=== PATIENT | female | born 1935 | race Caucasian/White ===

== ENCOUNTER 2017-12-31 20:55 | Emergency (ER) | payer MEDICARE, OTHER ==
[~2017-12-31] VITALS: Ht 152.4 cm; Wt 101.6 kg
--- OUTSIDE RECORDS SUMMARY | 2017-12-31 20:59 | XMS REPORT | Summary of Care ---
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 Name Role Phone NELIDA MAGANA Unavailable Unavailable HEMALATHA Jones, RACHEL Unavailable Unavailable BROOK HERNANDEZ [place], WILLOW [place] Unavailable Unavailable BROOK Jones, WILLOW Mckinney Unavailable AL HERNANDEZ, HEATHER MARIO Unavailable Unavailable Unavailable Unavailable Functional Status Name Dates Details Functional status health issues are not documented Status: Name Dates Details Cognitive status health issues are not documented Status: Problems Name Dates Details Allergic rhinitis (477.9, J30.9) Status: Active Flu vaccine need (V04.81, Z23) Status: Active History of hyperlipidemia (V12.29, Z86.39) Status: Active Strain of knee and leg, left (844.9, S86.912A) Status: Active Venous stasis (459.81, I87.8) Status: Active Spinal stenosis (724.00, M48.00) Status: Active Periorbital ecchymosis of right eye (921.1, S00.11XA) Status: Active Non-smoker (V49.89, Z78.9) Status: Active Advance directive discussed with patient (V65.49, Z71.89) Status: Active At low risk for fall (V49.89, Z91.81) Status: Active Depression screening negative (V79.0, Z13.89) Status: Active Need for pneumococcal vaccination (V03.82, Z23) Status: Active History of essential hypertension (V12.59, Z86.79) Status: Active Pedal edema (782.3, R60.0) Status: Active Chronic anticoagulation (V58.61, Z79.01) Status: Active 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0, N30.01) Status: Active Urinary tract infection (599.0, N39.0) Status: Active Hematuria (599.70, R31.9) Status: Active UTI (urinary tract infection) (599.0, N39.0) Status: Active Gout (274.9, M10.9) Status: Active Chronic obstructive pulmonary disease, unspecified COPD type (496, J44.9) Status: Active Acute bronchitis, bacterial (466.0, J20.8) Status: Active CKD (chronic kidney disease), stage III (585.3, N18.3) Status: Active History of malignant neoplasm of endometrium (V10.42, Z85.42) Status: Resolved Diabetes mellitus (250.00, E11.9) Status: Active Urinary frequency (788.41, R35.0) Status: Active Urinary incontinence (788.30, R32) Status: Active Medications Name Dates Details Atorvastatin Calcium 10 MG Oral Tablet TAKE 1 TABLET DAILY. Active Levemir 100 UNIT/ML Subcutaneous Solution INJECT 15 UNIT At Bedtime PER PATIENT, DOSE BETWEEN 15-18 UNITS AT BEDTIME, DEPENDING ON BLOOD SUGAR * Refills: 0 Active 10 ML Vial Osteo Bi-Flex Regular Strength TABS TAKE DIRECTED. * Refills: 0 Active Calcium TABS TAKE 1 TABLET DAILY * Refills: 0 Active Vitamin D 2000 UNIT Oral Capsule TAKE 1 CAPSULE DAILY * Refills: 0 Active Ursodiol 300 MG Oral Capsule 1 capsule bid * Refills: 0 Active Pantoprazole Sodium 40 MG Oral Tablet Delayed Release TAKE 1 TABLET DAILY. * Refills: 0 Active HumaLOG SOLN 12-15 units with each meal * Refills: 0 Active Eliquis 2.5 MG Oral Tablet TAKE 1 TABLET TWICE DAILY * Refills: 0 Active Furosemide 40 MG Oral Tablet TAKE 1 TABLET DAILY DIRECTED. * Refills: 0 Active Multaq 400 MG Oral Tablet TAKE 1 TABLET TWICE DAILY, WITH MORNING AND EVENING MEAL x 30 DAYS * Refills: 0 Active Montelukast Sodium 10 MG Oral Tablet TAKE 1 TABLET DAILY. * Refills: 0 Active Benicar 40 MG Oral Tablet TAKE 1 TABLET DAILY. * Refills: 0 Active TraMADol HCl - 50 MG Oral Tablet TAKE 1 TABLET TWICE DAILY * Quantity: 60 Refills: 2 SHERMAN P.A., NELIDA * Start : 19-Jun-2016 Active NIFEdipine ER 30 MG Oral Tablet Extended Release 24 Hour TAKE 1 TABLET DAILY. * Refills: 0 Active ProAir HFA 108 (90 Base) MCG/ACT Inhalation Aerosol Solution INHALE 1 TO 2 PUFFS EVERY 4 TO 6 HOURS NEEDED. * Quantity: 1 Refills: 0 SATTAR M.D., RACHEL * Start : 18-Oct-2017 Active 8.5 GM Inhaler Cephalexin 500 MG Oral Capsule TAKE 1 CAPSULE EVERY 12 HOURS DAILY. * Quantity: 10 Refills: 0 SATTAR M.D., RACHEL * Start : 18-Oct-2017 Active PredniSONE 10 MG Oral Tablet TAKE 2 TABLET Daily once a day for 3 days, then take 1 tablet once daily for 2 days * Quantity: 8 Refills: 0 SATTAR M.D., RACHEL * Start : 18-Oct-2017 Active Uloric 40 MG Oral Tablet TAKE 1 TABLET DAILY. * Refills: 0 Active Allergies and Adverse Reactions Name Dates Details No Known Allergies (Allergy) Status: Active Past Medical History Name Dates Details History of atrial fibrillation (V12.59, Z86.79) Status: Resolved History of Fatty liver (571.8, K76.0) Status: Resolved History of hematuria (V13.09, Z87.448) Status: Resolved History of malignant neoplasm of endometrium (V10.42, Z85.42) Status: Resolved History of Sepsis due to Escherichia coli (038.42, A41.51) Status: Resolved History of urinary tract infection (V13.02, Z87.440) Status: Resolved Personal history of urinary tract infection (V13.02, Z87.440) Status: Resolved Procedures Procedure Dates Details History of Arthrotomy Of Knee With Open Meniscus Repair Completed History of Inguinal Hernia Repair Completed Immunization Name Dates Details Pneumovax 23 25 MCG/0.5ML Injection Injectable on: 30-Aug-2013 Fluzone INJ Lot #: [id number] on: 15-Apr-2014 Fluzone Quadrivalent 0.5 ML Intramuscular Suspension on: 04-May-2015 Prevnar 13 Intramuscular Suspension Lot #: [id number] on: 23-Sep-2015 Influenza on: 21-Apr-2016 Family History Name Dates Details Family history of Leukemia (V16.6) Status: Active Name Dates Details Family history of Hypertension (V17.49) Status: Active Family history of Stroke Syndrome (V17.1) Status: Active Family history of diabetes mellitus (V18.0, Z83.3) Status: Active Social History Name Dates Details - Status: Name Dates Details Never smoker Vital Signs Date Test Result Details [id number] Physical Findings 1 Status: Comments: PHQ-9 Adult Depression Screening [id number] BP Systolic 136 mm[Hg] Status: Comments: Location: LUE; Position: Sitting BP Diastolic 83 mm[Hg] Status: Comments: Location: LUE; Position: Sitting Height 62 in Status: Weight 224 lb Status: Body Mass Index Calculated 40.97 kg/m2 Status: Body Surface Area Calculated 2.01 m2 Status: Temperature 97.8 f Status: Comments: Method: Temporal Heart Rate 73 /min Status: Respiration Rate 16 /min Status: Physical Findings 0 Status: Comments: Pain Scale Results Date Description Value Details Results not documented Plan of Care Name Dates Details Planned Observations Planned Goals not documented Interventions Provided Medication Changes* TraMADol HCl - 50 MG Oral Tablet - Renew Instructions Name Dates Details Instructions not documented Encounters Appointment; JOESPH SUN M.D. Encounter Diagnosis: Problem not documented On: 25-Nov-2015 16:00 Appointment; MIGDALIA TAPIA M.D. Encounter Diagnosis: Problem not documented On: 25-Apr-2016 11:15 Appointment; MIGDALIA TAPIA M.D. Encounter Diagnosis: Problem not documented On: 07-Jun-2016 11:00 Appointment; MIGDALIA TAPIA M.D. Encounter Diagnosis: Problem not documented On: 19-Jun-2016 10:30 Appointment; TERI YUSUF P.A. Encounter Diagnosis: Problem not documented On: 29-Aug-2016 10:45 Appointment; NELIDA SHERMAN P.A. Encounter Diagnosis: Problem not documented On: 28-Sep-2016 13:15 Appointment; EB MCCLELLAND NP Encounter Diagnosis: Problem not documented On: 02-Nov-2016 12:30 Appointment; NELIDA SHERMAN P.A. Encounter Diagnosis: Problem not documented On: 25-Dec-2016 10:00 Appointment; NELIDA SHERMAN P.A. Encounter Diagnosis: Problem not documented On: 28-Dec-2016 12:45 Appointment; ELVI CURRAN NP Encounter Diagnosis: Problem not documented On: 05-Jan-2017 9:30 Appointment; NELIDA SHERMAN P.A. Encounter Diagnosis: Problem not documented On: 09-Jan-2017 10:15 Appointment; JACKSON MARTINEZ M.D. Encounter Diagnosis: Problem not documented On: 01-Feb-2017 9:30 Appointment; TERI YUSUF P.A. Encounter Diagnosis: Problem not documented On: 07-Mar-2017 13:15 Appointment; NELIDA SHERMAN PRadha Encounter Diagnosis: Problem not documented On: 02-Apr-2017 14:45 Appointment; MIGDALIA TAPIA M.D. Encounter Diagnosis: Problem not documented On: 29-Apr-2017 10:30 Appointment; RACHEL PENNY M.D. Encounter Diagnosis: Problem not documented On: 18-Oct-2017 11:30 Appointment; NELIDA SHERMAN P.A. Encounter Diagnosis: Problem not documented On: 19-Nov-2017 14:15
--- OUTSIDE RECORDS SUMMARY | 2017-12-31 20:59 | XMS REPORT | Clinical Summary ---
Author Author [facility] Organization [facility] Address Unknown Phone Unavailable Care Team Providers Care Ems Director Name Role Phone Asked, Pcp PCP Unavailable Allergies No Known Allergies Current Medications Prescription Sig. Disp. Refills Start End Date Status Date amLODIPine (NORVASC) 10 Take 10 mg by mouth Active MG tablet daily. atorvastatin (LIPITOR) 10 Take 10 mg by mouth Active MG tablet daily. insulin lispro (HumaLOG) Inject under the skin 3 Active 100 unit/mL injection (three) times a day before meals. insulin detemir (LEVEMIR) Inject 23 Units under the Active 100 unit/mL injection skin nightly. montelukast (SINGULAIR) Take 10 mg by mouth Active 10 mg tablet nightly. ursodiol (ACTIGALL) 300 Take 300 mg by mouth 2 Active mg capsule (two) times a day. pantoprazole (PROTONIX) Take 40 mg by mouth Active 40 MG EC tablet daily. cholecalciferol, vitamin Take 2,000 Units by mouth Active D3, (VITAMIN D3) 2,000 daily. unit capsule capsule conjugated estrogens Insert 0.5 g into the Active (PREMARIN) vaginal cream vagina once a week. calcium carbonate-vitamin Take 1 tablet by mouth Active D3 (CALCIUM 600 + D,3,) daily. 600 mg(1,500mg) -200 unit per tablet GLUCOSAMINE HCL/CHONDR ZAMORANO Take 1 capsule by mouth Active A NA (OSTEO BI-FLEX ORAL) daily. azelastine-fluticasone 1 spray into each nostril Active (DYMISTA) 137-50 nightly. mcg/spray spray,non-aerosol Active Problems Problem Noted Date Dyspnea 04/10/2016 Social History Tobacco Use Types Packs/Day Years Used Date Never Smoker Alcohol Use Drinks/Week oz/Week Comments No Sex Assigned at Date Recorded Not on file Last Filed Vital Signs Not on file Plan of Treatment Health Maintenance Due Date Last Done Comments ENRIQUEIX VACCINE (#1) 1983 ZOSTER VACCINE 1993 PNEUMOCOCCAL 1998 POLYSACCHARIDE VACCINE AGE 65 AND OVER PNEUMOCOCCAL-13 1998 INFLUENZA VACCINE 02/19/2018 Results Not on fileafter 12/30/2016 Insurance Payer Benefit Subscriber ID Type Phone Address Plan / Group MEDICARE MEDICARE xxxxxxxxxx Medicare [place], [place] PART A AND B STATE FARM INS STATE FARM xxxxxxxxxxxx Commercial INS
--- OUTSIDE RECORDS SUMMARY | 2017-12-31 20:59 | XMS REPORT | Clinical Summary ---
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 Disp. Refills Start End Date Status Date calcium carbonate Take 600 mg by mouth 2 Active (OS-VJ) 600 mg (1,500 (two) times daily with mg) Tab breakfast and dinner. [id number] Take by mouth. Active serr (OSTEO BI-FLEX) 1,500-400-100 mg-unit-mg Tab amLODIPine (NORVASC) 10 Take 10 mg by mouth 2 Active MG tablet (two) times daily. atorvastatin (LIPITOR) 10 Take 10 mg by mouth Active MG tablet daily. insulin detemir (LEVEMIR) Inject subcutaneously Active 100 unit/mL injection nightly 33 units. aspirin 81 MG chewable Take 81 mg by mouth Active tablet daily. canagliflozin (INVOKANA) Take by mouth daily. Active 300 mg Tab pantoprazole (PROTONIX) Take 40 mg by mouth Active 40 MG tablet daily. cholecalciferol, vitamin Take 4,000 Units by mouth Active D3, 4,000 unit Tab daily. olmesartan (BENICAR) 40 Take 40 mg by mouth Active MG tablet daily. insulin lispro (HUMALOG) Inject subcutaneously 3 Active 100 unit/mL (three) times daily injectionIndications: before meals Takes type 2 diabetes mellitus sliding scale dose only . albuterol HFA (VENTOLIN Inhale 1 puff by mouth Active HFA) 90 mcg/actuation via inhaler every 6 (six) inhalerIndications: hours as needed for Chronic Obstructive Wheezing. Pulmonary Disease montelukast (SINGULAIR) Take 10 mg by mouth every Active 10 mg tabletIndications: night as needed. Allergic Rhinitis sulfamethoxazole-trimetho Take 1 tablet by mouth Active prim (BACTRIM,SEPTRA) daily Has frequent UTIs 400-80 mg per tablet that lead to URI. Used for UTI prophylaxis. . AZELASTINE/FLUTICASONE 1 spray by Nasal route 2 Active (DYMISTA (two) times daily as NASAL)Indications: needed. Allergic Rhinitis DRONEDARONE HCL (MULTAQ Take by mouth 2 (two) Active ORAL) times daily. APIXABAN (ELIQUIS ORAL) Take by mouth 2 (two) Active times daily. febuxostat 40 mg tablet Take 40 mg by mouth Active daily. furosemide (LASIX) 20 MG Take 20 mg by mouth 2 Active tablet (two) times daily. TRAMADOL HCL (TRAMADOL Take by mouth. Active ORAL) ursodiol (ACTIGALL) 300 TAKE 1 CAPSULE BY MOUTH 270 capsule 0 Active mg capsule THREE TIMES DAILY 18 ursodiol (ACTIGALL) 300 TAKE 1 CAPSULE BY MOUTH 90 capsule 0 11/28/19 01/05/20 Discontin mg capsule THREE TIMES DAILY 17 17 ued ursodiol (ACTIGALL) 300 TAKE 1 CAPSULE BY MOUTH 90 capsule 0 01/15/20 01/15/20 Discontin mg capsule THREE TIMES DAILY 17 17 ued ursodiol (ACTIGALL) 300 TAKE 1 CAPSULE BY MOUTH 270 capsule 0 05/24/20 Discontin mg capsule THREE TIMES DAILY 17 17 ued ursodiol (ACTIGALL) 300 TAKE 1 CAPSULE BY MOUTH 90 capsule 0 05/24/2011/08/ Discontin mg capsule THREE TIMES DAILY 17 18 ued ursodiol (ACTIGALL) 300 TAKE 1 CAPSULE BY MOUTH 90 capsule 0 11/16/19 11/16/19 Discontin mg capsule THREE TIMES DAILY 18 18 ued Active Problems Problem Noted Date Hyperkalemia 04/15/2017 Diabetes mellitus (HCC) 02/04/2013 Last Assessment & Plan: The most recent hemoglobin A1c from 01/19/13 was 8.7. Her treatment regimen was recently modified to include insulin and is presently undergoing dose adjustments. Her non-compliance with diet and weight management and more recently the use of systemic steroids have made adequate control more difficult. 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 Hyperlipidemia 02/04/2013 Last Assessment & Plan: Treated with atorvastatin. From a liver standpoint there is no contraindication for the continued use of cholesterol lowering agents including statins if deemed necessary. Optimal control of the hyperlipidemia will be essential to help prevent the accelerated progression of her liver disease. Continued monitoring and management will be deferred to her treating physician. Abnormal liver function test 02/04/2013 Last Assessment & Plan: The patient's liver test abnormalities are likely related to fatty liver disease. However, a comprehensive evaluation will be completed to assess for metabolic, viral, genetic, and autoimmune liver diseases to detect alternative etiologies and all comorbid conditions affecting hepatic function. The alkaline phosphatase is also disproportionately abnormal and therefore a GGT will be requested to exclude any extrahepatic source(ie bone). If it remains abnormal further testing including possibly and MRCP to assess bile duct anatomy will considered. Obesity 02/04/2013 Last Assessment & Plan: Current weight 199 lbs, with a BMI of 36.4 meets the definition of obesity and she has abdominal distribution of fat consistent with high probability of visceral fat and risk for non-alcoholic fatty liver disease which can be an accelerant of hepatic fibrosis . A weight reduction program is recommended that should include a healthy low carbohydrate diet and exercise as tolerated. An initial goal should be a 10% total body weight loss since this disproportionately reduces visceral fat and can reverse fatty liver disease up to 90%. This should benefit not only her general health but also her liver disease by eliminating a risk factor for fatty liver. Hypertension 02/04/2013 Last Assessment & Plan: Treated and stable. She will be referred to her primary care provider for continued monitoring and management. Fatty liver 02/04/2013 Last Assessment & Plan: The patient presents with various risk factors for metabolic syndrome, and previous abdominal ultrasounds have been compatible with fatty liver disease. (these records have been requested for review) Ultrasound technology is generally reliable in detecting steatosis but cannot distinguish between simple steatosis and JAMES and a liver biopsy may be required to make this distinction, but for now is not recommended. Optimal control of these various risk factors including obesity, diabetes and hyperlipidemia will be essential to help prevent further progression of his liver disease. There is no proven medical therapy for JAMES, but weight loss of 10% of body weight ameliorates hepatic steatosis. Immunity status testing 02/04/2013 Last Assessment & Plan: All patients with chronic liver disease, regardless of etiology, should be immunized to prevent hepatitis A and hepatitis B if they are not already immune. We will test for immunity to both viruses - vaccine recommendations will follow. Encounters Date Type Specialty Care Team Description 11/15/2017 Refill HepatMateo Prabhakar MD 11/08/2017 Refill Hepatology Mateo Phoenix MD 05/11/2017 Refill HepatMateo Prabhakar MD 04/16/2017 Documentation Hepatology Ning Walker FNP 04/15/2017 Office Visit Hepatology Mateo Phoenix MD Fatty liver ( Primary Anai Hameed MD Dx);Abnormal liver function test;Morbid obesity due to excess calories (HCC);Immunity status testing;Hyperkalemia 04/15/2017 Hospital Radiology Mateo Phoenix MD Abnormal liver diagnostic Encounter imaging 04/15/2017 Orders Only Lab Mateo Phoenix MD Fatty liver;Abnormal liver diagnostic imaging 04/15/2017 Outside Orders Mateo Phoenix MD 03/27/2017 Orders Only Hepatology Ning Walker FNP Fatty liver (Primary Dx);Abnormal liver function test;Abnormal liver diagnostic imaging 01/14/2017 Refill Hepatology Mateo Phoenix MD 01/04/2017 Refill Hepatology Mateo Phoenix MD after 12/30/2016 Family History Medical History Relation Name Comments Heart disease Father Cancer Mother leukemia Cancer Sister Unremarkable Sister Relation Name Status Comments Father Mother Sister Sister Alive Social History Tobacco Use Types Packs/Day Years Used Date Never Smoker Smokeless Tobacco: Never Used Alcohol Use Drinks/Week oz/Week Comments No social, wine, 1 glass Sex Assigned at Date Recorded Not on file Last Filed Vital Signs Vital Sign Reading Time Taken Blood Pressure 103/73 04/15/2017 11:23 AM CDT Pulse 80 04/15/2017 11:23 AM CDT Temperature 36.4 C (97.6 F) 04/15/2017 11:23 AM CDT Respiratory Rate 18 04/15/2017 11:23 AM CDT Oxygen Saturation 97% 04/15/2017 11:23 AM CDT Inhaled Oxygen - - Concentration Weight 100 kg (220 lb 8 oz) 04/15/2017 11:23 AM CDT Height 157.5 cm (5' 2") 04/15/2017 11:23 AM CDT Body Mass Index 40.33 04/15/2017 11:23 AM CDT Plan of Treatment Date Type Specialty Care Team Description 04/14/2018 Office Visit Hepatology AlbanMateo odonnell MD [id number] [place] [address] [phone] [facility] Health Maintenance Due Date Last Done Comments INFLUENZA VACCINE 04/21/2018 Results * US abdomen complete (04/15/2017 11:02 AM) Specimen Performing Laboratory [facility] Narrative FINAL REPORT Abdominal ultrasound dated 04/15/2017 Clinical information:fatty liver, please perform elastography Comment:Real-time transabdominal ultrasound was performed. Liver is normal in size and measures 15 cm in length. The echogenicity of the liver is increased.No focal lesion is noted in the liver.Spleen is normal in size without focal abnormality. Gallbladder is distended. No gallstone is present. No biliary dilatation is seen. Common bile duct measures 3 mm in diameter.Main portal vein measures 10 mm in diameter. Pancreas is suboptimally visualized secondary to overlying gas. Right kidney measures 10.2 x 4.8 x 4.8 cm.Left kidney measures 9.1 x 4.8 x 3.8 cm.Echogenicity of both kidney is normal.No hydronephrosis or solid mass seen in either kidney. Several cysts are seen in the right kidney with the largest measuring 5.4 x 5.6 x 5.4 cm. A 1.8 x 1.9 x 1.4 cm cyst is seen in the left kidney. No ascites is present in the abdomen. Abdominal aorta is normal in caliber. IVC and Hepatic veins are patent. Elastography of the liver was performed. The assessment of liver tissue stiffness is the following. Average liver stiffness is 1.58 m/s. Standard deviation is 0.79 m/s. Median liver stiffness is 1.55 m/s. The findings correlate with mild to moderate liver fibrosis. Liver fibrosis Liver Bx ScoreShearWave velocity(m/s) Normal F0 0.82 - 1.23 Normal - MildF0 - F1 1.23 - 1.38 Mild - ModerateF2 - F3 1.38 - 2.00 Moderate - Severe F3 - F4 2.0 - 2.65 Severe F4 >2.65 Impression: 1. Echogenic liver suggestive of diffuse liver parenchymal disease. 2. Suboptimal visualization of the pancreas secondary to overlying gas. 3. Bilateral renal cysts. 4. Mild to moderate hepatic fibrosis. Signed: Charles Ornelas MD Report Verified Date/Time:04/15/2017 13:40:05 Reading Location: [address] Radiology Reading Room Procedure Note Interface, External Ris In - 04/15/2017 1:42 PM CDT FINAL REPORT Abdominal ultrasound dated 04/15/2017 Clinical information:fatty liver, please perform elastography Comment: Real-time transabdominal ultrasound was performed. Liver is normal in size and measures 15 cm in length. The echogenicity of the liver is increased. No focal lesion is noted in the liver. Spleen is normal in size without focal abnormality. Gallbladder is distended. No gallstone is present. No biliary dilatation is seen. Common bile duct measures 3 mm in diameter. Main portal vein measures 10 mm in diameter. Pancreas is suboptimally visualized secondary to overlying gas. Right kidney measures 10.2 x 4.8 x 4.8 cm. Left kidney measures 9.1 x 4.8 x 3.8 cm. Echogenicity of both kidney is normal. No hydronephrosis or solid mass seen in either kidney. Several cysts are seen in the right kidney with the largest measuring 5.4 x 5.6 x 5.4 cm. A 1.8 x 1.9 x 1.4 cm cyst is seen in the left kidney. No ascites is present in the abdomen. Abdominal aorta is normal in caliber. IVC and Hepatic veins are patent. Elastography of the liver was performed. The assessment of liver tissue stiffness is the following. Average liver stiffness is 1.58 m/s. Standard deviation is 0.79 m/s. Median liver stiffness is 1.55 m/s. The findings correlate with mild to moderate liver fibrosis. Liver fibrosis Liver Bx Score ShearWave velocity(m/s) Normal F0 0.82 - 1.23 Normal - Mild F0 - F1 1.23 - 1.38 Mild - Moderate F2 - F3 1.38 - 2.00 Moderate - Severe F3 - F4 2.0 - 2.65 Severe F4 >2.65 Impression: 1. Echogenic liver suggestive of diffuse liver parenchymal disease. 2. Suboptimal visualization of the pancreas secondary to overlying gas. 3. Bilateral renal cysts. 4. Mild to moderate hepatic fibrosis. Signed: Charles Ornelas MD Report Verified Date/Time: 04/15/2017 13:40:05 Reading Location: [address] Radiology Reading Room * CBC with platelet count + automated diff (04/15/2017 9:41 AM) Component Value Ref Range WBC 12.5 (H) 3.5 - 10.5 K/ L RBC 4.45 3.93 - 5.22 M/ L Hemoglobin 13.7 11.2 - 15.7 GM/DL Hematocrit 44.4 34.1 - 44.9 % MCV 99.8 (H) 79.4 - 94.8 fL MCH 30.8 25.6 - 32.2 pg MCHC 30.9 (L) 32.2 - 35.5 GM/DL RDW 14.2 11.7 - 14.4 % Platelets 280 150 - 450 K/CU MM MPV 11.3 9.4 - 12.3 fL nRBC 0 0 - 0 /100 WBC % Neutros 58 % % Lymphs 32 % % Monos 7 % % Eos 1 % % Baso 1 % # Neutros 7.30 (H) 1.56 - 6.13 K/ L # Lymphs 4.00 (H) 1.18 - 3.74 K/ L # Monos 0.83 (H) 0.24 - 0.36 K/ L # Eos 0.07 0.04 - 0.36 K/ L # Baso 0.11 (H) 0.01 - 0.08 K/ L Immature 1 0 - 1 % Granulocytes-Relative Specimen Performing Laboratory Blood [address] [address] * Alpha fetoprotein (AFP), tumor marker (04/15/2017 9:41 AM) Component Value Ref Range Alpha-Fetoprotein <2.0 <10.0 ng/mL Specimen Performing Laboratory Blood [address] [address] * CBC with platelet count + automated diff (04/15/2017 9:41 AM) Specimen Performing Laboratory Blood [facility]) Narrative The following orders were created for panel order CBC with platelet count + automated diff. Procedure Abnormality Status --------- - ------ CBC with platelet count ...[[id number]]AbnormalFinal result Please view results for these tests on the individual orders. * Gamma Glutamyl Transferase (GGT) (04/15/2017 9:41 AM) Component Value Ref Range GGT 45Comment: Specimen slightly hemolyzed 9 - 64 U/L Specimen [place] [address] * Hepatic function panel (04/15/2017 9:41 AM) Component Value Ref Range Protein, Total 6.5Comment: Specimen slightly hemolyzed 6.0 - 8.3 gm/dL Albumin 3.7Comment: Specimen slightly hemolyzed 3.5 - 5.0 g/dL Total Bilirubin 0.6Comment: Specimen slightly hemolyzed 0.2 - 1.2 mg/dL Bilirubin, Direct 0.2Comment: Specimen slightly hemolyzed 0.1 - 0.5 mg/dL Alkaline Phosphatase 108 40 - 150 U/L AST 27Comment: Specimen slightly hemolyzed 5 - 34 U/L ALT 14Comment: Specimen slightly hemolyzed 6 - 55 U/L Specimen Performing Laboratory Blood [id number] * Basic Metabolic Panel (04/15/2017 9:41 AM) Component Value Ref Range Sodium 141 136 - 145 meq/L Potassium 5.2 (H)Comment: Specimen slightly hemolyzed 3.5 - 5.1 meq/L Chloride 112 (H) 98 - 107 meq/L CO2 18 (L) 22 - 29 meq/L BUN 50 (H) 7 - 21 mg/dL Creatinine 1.39 (H)Comment: Specimen slightly hemolyzed 0.57 - 1.25 mg/dL Glucose 98 70 - 105 mg/dL Calcium 9.8 8.4 - 10.2 mg/dL EGFR 36Comment: ESTIMATED GFR IS NOT ACCURATE mL/min/1.73 sq m CREATININE CLEARANCE IN PREDICTING GLOMERULAR FILTRATION RATE. ESTIMATED GFR IS NOT APPLICABLE FOR DIALYSIS PATIENTS. Specimen Performing Laboratory Blood [id number] after 12/30/2016
--- OUTSIDE RECORDS SUMMARY | 2017-12-31 20:59 | XMS REPORT ---
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 Allergies, Adverse Reactions, Alerts This patient has no known allergies or adverse reactions. Medications This patient has no known medications. Results Test Description Test Time Test Comments Text Results Atomic Results Result Comments U/S, ABDOMINAL, COMPLETE 2017-04-15 13:40:00 please perform elastographyplease perform elastographyReason for Exam:->fatty liver, please perform elastographyplease perform elastography FINAL REPORT Abdominal ultrasound dated 04/15/2017 Clinical [...] assessment of liver tissue stiffness is the following.Average liver stiffness is 1.58 m/s.Standard deviation is 0.79 m/s.Median liver stiffness is 1.55 m/s. The findings correlate with mild to moderate liver fibrosis. Liver fibrosis Liver Bx Score ShearWave velocity(m/ s) Normal F0 0.82 - 1.23Normal - Mild F0 - F1 1.23 - 1.38Mild - Moderate F2 - F3 1.38 - 2.00Moderate - Severe F3 - F4 2.0 - 2.65Severe F4 >2.65 Impression: 1. Echogenic liver suggestive of diffuse liver parenchymal disease.2. Suboptimal visualization of the pancreas secondary to overlying gas.3. Bilateral renal cysts.4. Mild to moderate hepatic fibrosis. Signed: Charles Ornelas MDReport Verified Date/Time: 04/15/2017 13:40:05 Reading Location: [address] Radiology Reading Room A FETOPROTEIN (AFP), TUMOR MARKER 2017-04-15 11:41:00 ALPHA-FETOPROTEIN (BEAKER) (test tjmh=3337) < ng/mL <10.0 BASIC METABOLIC [id number] 11:05:00* Test Item Value Reference Range Comments SODIUM (BEAKER) (test sync=495) 141 meq/L 136-145 POTASSIUM (BEAKER) (test ejyv=245) 5.2 meq/L 3.5-5.1 Specimen slightly hemolyzed CHLORIDE (BEAKER) (test ihwq=891) 112 meq/L 98-107 CO2 (BEAKER) (test gjrd=853) 18 meq/L 22-29 BLOOD UREA NITROGEN (BEAKER) (test gvoe=939) 50 mg/dL 7-21 CREATININE (BEAKER) (test atoc=378) 1.39 mg/dL 0.57-1.25 Specimen slightly hemolyzed GLUCOSE RANDOM (BEAKER) (test hqlc=773) 98 mg/dL 70-105 CALCIUM (BEAKER) (test jysk=040) 9.8 mg/dL 8.4-10.2 EGFR (BEAKER) (test nveg=4092) 36 mL/min/1.73 sq m ESTIMATED GFR IS NOT ACCURATE CREATININE CLEARANCE IN PREDICTING GLOMERULAR FILTRATION RATE. ESTIMATED GFR IS NOT APPLICABLE FOR DIALYSIS PATIENTS. HEPATIC FUNCTION [id number] 11:05:00* Test Item Value Reference Range Comments TOTAL PROTEIN (BEAKER) (test qrtm=481) 6.5 gm/dL 6.0-8.3 Specimen slightly hemolyzed ALBUMIN (BEAKER) (test yyxr=6516) 3.7 g/dL 3.5-5.0 Specimen slightly hemolyzed BILIRUBIN TOTAL (BEAKER) (test vuzw=699) 0.6 mg/dL 0.2-1.2 Specimen slightly hemolyzed BILIRUBIN DIRECT (BEAKER) (test jorg=548) 0.2 mg/dL 0.1-0.5 Specimen slightly hemolyzed ALKALINE PHOSPHATASE (BEAKER) (test lhjv=995) 108 U/L 40-150 AST (SGOT) (BEAKER) (test yuuy=097) 27 U/L 5-34 Specimen slightly hemolyzed ALT (SGPT) (BEAKER) (test yeyf=561) 14 U/L 6-55 Specimen slightly hemolyzed GAMMA GLUTAMYL TRANSFERASE (GGT)2017-04-15 11:05:00* Test Item Value Reference Range Comments GAMMA GLUTAMYL TRANSFERASE (BEAKER) (test qsnw=936) 45 U/L 9-64 Specimen slightly hemolyzed CBC W/PLT COUNT & AUTO [id number] 10:49:00* Test Item Value Reference Range Comments WHITE BLOOD CELL COUNT (BEAKER) (test oqxk=104) 12.5 K/ L 3.5-10.5 RED BLOOD CELL COUNT (BEAKER) (test vsxy=362) 4.45 M/ L 3.93-5.22 HEMOGLOBIN (BEAKER) (test srza=027) 13.7 GM/DL 11.2-15.7 HEMATOCRIT (BEAKER) (test sqev=394) 44.4 % 34.1-44.9 MEAN CORPUSCULAR VOLUME (BEAKER) (test qsqe=973) 99.8 fL 79.4-94.8 MEAN CORPUSCULAR HEMOGLOBIN (BEAKER) (test cnde=551) 30.8 pg 25.6-32.2 MEAN CORPUSCULAR HEMOGLOBIN CONC (BEAKER) (test alrp=042) 30.9 GM/DL 32.2- 35.5 RED CELL DISTRIBUTION WIDTH (BEAKER) (test sdnk=151) 14.2 % 11.7-14.4 PLATELET COUNT (BEAKER) (test iymd=786) 280 K/CU MM 150-450 MEAN PLATELET VOLUME (BEAKER) (test reaw=964) 11.3 fL 9.4-12.3 NUCLEATED RED BLOOD CELLS (BEAKER) (test pmxl=224) 0 /100 WBC 0-0 NEUTROPHILS RELATIVE PERCENT (BEAKER) (test hqdg=318) 58 % LYMPHOCYTES RELATIVE PERCENT (BEAKER) (test fqgi=888) 32 % MONOCYTES RELATIVE PERCENT (BEAKER) (test wucd=433) 7 % EOSINOPHILS RELATIVE PERCENT (BEAKER) (test fmru=821) 1 % BASOPHILS RELATIVE PERCENT (BEAKER) (test xnat=817) 1 % NEUTROPHILS ABSOLUTE COUNT (BEAKER) (test ojnq=827) 7.30 K/ L 1.56-6.13 LYMPHOCYTES ABSOLUTE COUNT (BEAKER) (test bpox=591) 4.00 K/ L 1.18-3.74 MONOCYTES ABSOLUTE COUNT (BEAKER) (test hzdp=286) 0.83 K/ L 0.24-0.36 EOSINOPHILS ABSOLUTE COUNT (BEAKER) (test pbjl=984) 0.07 K/ L 0.04-0.36 BASOPHILS ABSOLUTE COUNT (BEAKER) (test wbml=629) 0.11 K/ L 0.01-0.08 IMMATURE GRANULOCYTES-RELATIVE PERCENT (BEAKER) (test lupu=6239) 1 % 0-1
== END 2017-12-31 22:00 | disposition home or self-care (01) ==
LOC: FSED 20:55
DX: H57.12 Ocular pain, left eye (principal); E11.22 Type 2 diabetes mellitus with diabetic chronic kidney disease; I12.9 Hypertensive chronic kidney disease with stage 1 through stage 4 chronic kidney disease, or unspecified chronic kidney disease; N18.9 Chronic kidney disease, unspecified; J44.9 Chronic obstructive pulmonary disease, unspecified; I48.91 Unspecified atrial fibrillation
CPT/HCPCS: 99283

== ENCOUNTER 2018-05-25 13:39 | Emergency (ER) | payer MEDICARE, OTHER ==
[~2018-05-25] VITALS: Ht 152.4 cm; Wt 101.6 kg
--- OUTSIDE RECORDS SUMMARY | 2018-05-25 13:47 | XMS REPORT | CCD ---
Author Author Auto Generated Organization [facility] Address Unknown Phone Unavailable Care Team Providers Care Paediatrician Name Role Phone Hari [address] CP Allergies, Adverse Reactions, Alerts Substance Reaction Status NKDA Active Medications Medication Instructions Start Date End Date Status Zofran ODT 4 mg oral 4 mg, 1 tab, PO, BID, PRN, Dissolve 06/22/2012 Suspended tablet, tab under tongue, 10 tab, Nausea disintegrating and Vomiting, Substitution Allowed Dissolve tab under tongue Macrobid 100 mg oral 100 mg, 1 cap, PO, BID, 14 cap, 06/22/2012 Suspended capsule Substitution Allowed Sodium Chloride 0.9% 1,000 mL, Rate: 1,000 ml/hr, Infuse 06/22/2012 06/22/2012 Completed (Bolus) IV 1,000 mL over: 1 hr, Route: IV, Dosing Weight 95 kg, Total Volume: 1,000, Bolus dose, Priority: STAT, Start date: 06/22/12 9:07:00, Duration: 1 doses or times, Stop date: 06/22/12 10:06:00 Saline Flush 0.9% 5 mL, Route: IVP, Dosing Weight 95, 06/22/2012 06/22/2012 Discontinued kg, PRN, PRN Line Flush, Start date: 06/22/12 9:07:00, Duration: 24 hr, Stop date: 06/23/12 9:06:00 ondansetron 4 mg, Route: IVP, ONCE, Dosing 06/22/2012 06/22/2012 Completed Weight 95, kg, Priority: STAT, Start date: 06/22/12 9:07:00, Stop date: 06/22/12 9:07:00 Vital Signs Most recent to oldest [Reference Range]: 1 Height 157.48 cm (06/22/2012 08:47:00) Weight 95.000 kg (06/22/2012 08:47:00) Results URINALYSIS Most recent to oldest [Reference Range]: 1 UA Turbidity [Clear] Marked *ABN* (06/22/2012 10:30:00) UA Color Jayne *NA* (06/22/2012 10:30:00) UA pH [5.0-8.0] 5.0 (06/22/2012 10:30:00) UA Spec Grav [<=1.030] 1.012 (06/22/2012 10:30:00) UA Glucose [Negative mg/dL] 50 mg/dL *ABN* (06/22/2012 10:30:00) UA Blood [Negative] Large *ABN* (06/22/2012 10:30:00) UA Ketones [Negative mg/dL] Negative mg/dL *NA* (06/22/2012 10:30:00) UA Protein [Negative mg/dL] 100 mg/dL *ABN* (06/22/2012 10:30:00) UA Urobilinogen [0.1-1.0 mg/dL] <=1.0 mg/dL *NA* (06/22/2012 10:30:00) UA Bili [Negative] Negative *NA* (06/22/2012 10:30:00) UA Leuk Est [Negative] Large *ABN* (06/22/2012 10:30:00) UA Nitrite [Negative] Positive *ABN* (06/22/2012 10:30:00) UA WBC [0-5 /HPF] 69 /HPF *HI* (06/22/2012 10:30:00) UA RBC [0-2 /HPF] 20 /HPF *HI* (06/22/2012 10:30:00) UA Bacteria [None Seen /HPF] Few /HPF *NA* (06/22/2012 10:30:00) UA Sq Epi [Few /LPF] Many /LPF *ABN* (06/22/2012 10:30:00) UA Hyal Cast [0-2 /LPF] 3 /LPF *HI* (06/22/2012 10:30:00) UA Mucus [None Seen /LPF] Few /LPF *NA* (06/22/2012 10:30:00) CHEMISTRY Most recent to oldest [Reference Range]: 1 Sodium Lvl [135-145 mEq/L] 138 mEq/L (06/22/2012 09:00:00) Potassium Lvl [3.5-5.1 mEq/L] 3.7 mEq/L (06/22/2012 09:00:00) Chloride Lvl [95-109 mEq/L] 105 mEq/L (06/22/2012 09:00:00) CO2 [24-32 mEq/L] 23 mEq/L *LOW* (06/22/2012 09:00:00) AGAP [10.0-20.0 mEq/L] 13.7 mEq/L (06/22/2012 09:00:00) Creatinine Lvl [0.5-1.4 mg/dL] 1.6 mg/dL *HI* (06/22/2012 09:00:00) eGFR 31 mL/min/1.73m2 1 *NA* (06/22/2012 09:00:00) BUN [7-22 mg/dL] 27 mg/dL *HI* (06/22/2012 09:00:00) B/C Ratio [6-25] 17 (06/22/2012 09:00:00) Glucose Lvl [70-99 mg/dL] 259 mg/dL 2 *HI* (06/22/2012 09:00:00) Total Protein [6.4-8.4 g/dL] 7.4 g/dL (06/22/2012 09:00:00) Albumin Lvl [3.5-5.0 g/dL] 3.3 g/dL *LOW* (06/22/2012 09:00:00) Globulin [2.0-4.0 g/dL] 4.1 g/dL *HI* (06/22/2012 09:00:00) A/G Ratio [0.7-1.6] 0.8 (06/22/2012 09:00:00) Calcium Lvl [8.5-10.5 mg/dL] 9.1 mg/dL (06/22/2012 09:00:00) ALT [0-65 unit/L] 44 unit/L (06/22/2012 09:00:00) AST [0-37 unit/L] 39 unit/L *HI* (06/22/2012:00:00) Alk Phos [39-136 unit/L] 222 unit/L *HI* (06/22/2012:00:00) Bili Total [0.2-1.3 mg/dL] 1.5 mg/dL *HI* (06/22/2012:00:00) Lipase Lvl [73-393 unit/L] 101 unit/L (06/22/2012:00:00) Total CK [12-191 unit/L] 53 unit/L (06/22/2012:00:00) CK MB [0.5-3.6 ng/mL] <0.5 ng/mL (06/22/2012:00:00) CK MB Index [0.0-2.5] <0.9 (06/22/2012:00:00) 1Result Comment: The eGFR is calculated using the CKD-EPI formula. In most young, healthy individuals the eGFR will be >90 mL/min/1.73m2. The eGFR declines with age. An eGFR of 60-89 may be normal in some populations, particularly the elderly, for whom the CKD-EPI formula has not been extensively validated. Use of the eGFR is not recommended in the following populations: Individuals with unstable creatinine concentrations, including patients and those with serious co-morbid conditions. Patients with extremes in muscle mass or diet. The data above are obtained from the National Kid[employer] Disease Education Program ( NKDEP) which additionally recommends that when the eGFR is used in patients with extremes of body mass index for purposes of drug dosing, the eGFR should be mul tiplied by the estimated BMI. 2Interpretive Data: Adult reference range values reflect the clinical guidelines of the [place] [employer]. HEMATOLOGY Most recent to oldest [Reference Range]: 1 WBC [3.7-10.4 K/CMM] 13.8 K/CMM *HI* (06/22/2012:00:00) RBC [4.20-5.40 M/CMM] 4.30 M/CMM (06/22/2012:00:00) Hgb [12.0-16.0 g/dL] 13.8 g/dL (06/22/2012:00:00) Hct [36.0-48.0 %] 40.3 % (06/22/2012 09:00:00) MCV [81.0-99.0 fL] 93.7 fL (06/22/2012 09:00:00) MCH [27.0-31.0 pg] 32.0 pg *HI* (06/22/2012 09:00:00) MCHC [32.0-36.0 g/dL] 34.2 g/dL (06/22/2012 09:00:00) RDW [11.5-14.5 %] 13.9 % (06/22/2012 09:00:00) Platelet [133-450 K/CMM] 209 K/CMM (06/22/2012 09:00:00) MPV [7.4-10.4 fL] 9.0 fL (06/22/2012 09:00:00) Segs [45.0-75.0 %] 89.7 % *HI* (06/22/2012 09:00:00) Lymphocytes [20.0-40.0 %] 5.6 % *LOW* (06/22/2012 09:00:00) Monocytes [2.0-12.0 %] 4.5 % (06/22/2012 09:00:00) Eosinophils [0.0-4.0 %] 0.1 % (06/22/2012 09:00:00) Basophils [0.0-1.0 %] 0.1 % (06/22/2012 09:00:00) Segs-Bands # [1.5-8.1 K/CMM] 12.3 K/CMM *HI* (06/22/2012 09:00:00) Lymphocytes # [1.0-5.5 K/CMM] 0.8 K/CMM *LOW* (06/22/2012 09:00:00) Monocytes # [0.0-0.8 K/CMM] 0.6 K/CMM (06/22/2012 09:00:00) Eosinophils # [0.0-0.5 K/CMM] 0.0 K/CMM (06/22/2012 09:00:00) Basophils # [0.0-0.2 K/CMM] 0.0 K/CMM (06/22/2012 09:00:00) RBC Morph Normal (06/22/2012 09:00:00) Plt Morph Normal (06/22/2012 09:00:00)
--- OUTSIDE RECORDS SUMMARY | 2018-05-25 13:47 | XMS REPORT | Continuity of Care Document ---
Author Author Balbina hahn Organization Interface Address Unknown Phone Unavailable Problems Problem Status Onset Date Classification Date Reported Comments Source LABS Active 04/16/2016 [facility] UROSEPSIS, CHRONIC KIDNEY DISEASE Active 04/07/2016 [facility] FEVER Active 04/07/2016 [facility] Discharge Diagnosis: Hyperkalemia 04/06/2016 04/09/2016 [facility] ABN LABS Active 04/06/2016 [facility] Discharge Diagnosis: Acute UTI 10/01/2015 10/04/2015 [facility] Discharge Diagnosis: Generalized weakness 10/01/2015 10/04/2015 [facility] WEAKNESS Active 10/01/2015 [facility] BLOOD IN URINE Active 09/22/2015 [facility] EYE REDNESS/EYE PAIN Active 05/02/2015 [facility] S.O.B Active 02/26/2015 [facility] AECOPD, BRONCHITIS Active 02/26/2015 [facility] Discharge Diagnosis: Acute bronchitis 10/10/2014 10/12/2014 [facility] CONGESTION Active 10/10/2014 [facility] Discharge Diagnosis: Cellulitis 08/22/2014 08/24/2014 [facility] LEG SWELLING Active 08/22/2014 [facility] Discharge Diagnosis: Acute Bronchitis 05/16/2014 05/19/2014 [facility] CONGESTED Active 05/16/2014 [facility] Upper respiratory infection<sup>6</sup> Resolved 01/19/2013 Problem 02/04/2018 Data migrated from [employer] on 02/04/15. [facility] Upper respiratory infection<sup>6</sup> Resolved 01/19/2013 Problem 01/12/2017 Data migrated from [employer] on 02/04/15. [facility] [place] Upper respiratory infection<sup>6</sup> Resolved 01/19/2013 Problem 05/13/2016 Data migrated from [employer] on 02/04/15. [facility], [facility] [place], SARAH Hahn PNEUMONIA,DYSPNEA Active 01/07/2013 [facility] SHORTNESS OF BREATH Active 09/02/2012 [facility] REACTIVE AIRWAY, WHEEZING, PNEUMONIA Active 09/02/2012 [facility] FEVER,UTI Active 06/23/2012 [facility] RE-VISIT Active 06/23/2012 [facility] SICK Active 06/22/2012 [facility] Urinary tract infectious disease<sup>7</sup> Resolved 04/17/2012 Problem 02/04/2018 Data migrated from [employer] on 02/04/15. [facility] Urinary tract infectious disease<sup>7</sup> Resolved 04/17/2012 Problem 01/12/2017 Data migrated from [employer] on 02/04/15. [facility], [facility] [place] Urinary tract infectious disease<sup>7</sup> Resolved 04/17/2012 Problem 05/13/2016 Data migrated from [employer] on 02/04/15. [facility], [facility] [place], [facility] [place] Vitamin D deficiency<sup>8</sup> Active 04/16/2011 Problem 02/04/2018 Data migrated from [employer] on 12/20/14. [facility] Vitamin D deficiency<sup>8</sup> Active 04/16/2011 Problem 01/12/2017 Data migrated from [employer] on 12/20/14. [facility] [place] Vitamin D deficiency<sup>8</sup> Active 04/16/2011 Problem 05/13/2016 Data migrated from [employer] on 12/20/14. 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 [facility] Hyperlipidemia<sup>2</sup> Active 08/03/2010 Problem 02/04/2018 Data migrated from [employer] on 12/20/14. [facility] Obesity<sup>3</sup> Active 08/03/2010 Problem 02/04/2018 Data migrated from [employer] on 12/20/14. [facility] Osteoporosis<sup>4</sup> Active 08/03/2010 Problem 02/04/2018 Data migrated from [employer] on 12/20/14. [facility] Disorder associated with type 2 diabetes mellitus<sup>1</sup> Resolved 08/03/2010 Problem 01/12/2017 Data migrated from [employer] on 12/20/14. [facility] [place] Hyperlipidemia<sup>2</sup> Active 08/03/2010 Problem 01/12/2017 Data migrated from [employer] on 12/20/14. [facility], [facility] [place] Obesity<sup>3</sup> Active 08/03/2010 Problem 01/12/2017 Data migrated from [employer] on 12/20/14. [facility], [facility] [place] Osteoporosis<sup>4</sup> Active 08/03/2010 Problem 01/12/2017 Data migrated from [employer] on 12/20/14. 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 [facility] [place], [facility] [place] Hyperlipidemia<sup>2</sup> Active 08/03/2010 Problem 05/13/2016 Data migrated from [employer] on 12/20/14. [facility], [facility] [place], [facility] [place] Obesity<sup>3</sup> Active 08/03/2010 Problem 05/13/2016 Data migrated from [employer] on 12/20/14. [facility], [facility] [place], [facility] [place] Osteoporosis<sup>4</sup> Active 08/03/2010 Problem 05/13/2016 Data migrated from [employer] on 12/20/14. [facility] [place], [facility] [place] Diabetes mellitus Active Problem 05/05/2015 [facility] Hypertension Active Problem 05/05/2015 [facility] Diabetes mellitus Active Problem 01/11/2013 [facility] Hypertension Active Problem 01/11/2013 [facility] Arthritis Resolved Problem 01/11/2013 [facility] Pneumonia Resolved Problem 01/11/2013 [facility] Arthritis Resolved Problem 02/04/2018 [facility] Chicken pox Resolved Problem 02/04/2018 [facility] COPD Resolved Problem 02/04/2018 [facility] [place], [facility] [place], [facility] [place] Low serum vitamin D Active Problem 02/04/2018 [facility], [facility] [place], [facility] [place], [facility] [place], [facility] Diabetes Resolved Problem 02/04/2018 [facility] [place], [facility] [place], [facility] [place] History of frequent urinary tract infections Active Problem 02/04/2018 [facility] Hypernatremia Active Problem 02/04/2018 [facility] Mixed hyperlipidemia Active Problem 02/04/2018 [facility] [place], [facility] [place], [facility] [place] Morbid obesity Active Problem 02/04/2018 [facility] [place], [facility] [place], [facility] [place] Obesity Active Problem 02/04/2018 [facility] Pneumonia Resolved Problem 02/04/2018 [facility] PUD - Peptic ulcer disease Resolved Problem 02/04/2018 [facility] Steatosis of liver<sup>5</sup> Active Problem 02/04/2018 Data migrated from [employer] on 12/20/14. [facility] Diabetes mellitus type 2 in obese Active Problem 02/04/2018 [facility] Arthritis Resolved Problem 01/12/2017 [facility], [facility] [place] Chicken pox Resolved Problem 01/12/2017 [facility], [facility] [place] Obesity Active Problem 01/12/2017 [facility], [facility] [place] Pneumonia Resolved Problem 01/12/2017 [facility], [facility] [place] PUD - Peptic ulcer disease Resolved Problem 01/12/2017 [facility], [facility] [place] Steatosis of liver<sup>5</sup> Active Problem 01/12/2017 Data migrated from [employer] on 12/20/14. [facility] [place] Diabetes mellitus type 2 in obese Active Problem 01/12/2017 [facility] [place] Arthritis Resolved Problem 05/13/2016 [facility], [facility] [place], [facility] [place] Chicken pox Resolved Problem 05/13/2016 [facility] [place], [facility] [place] Obesity Active Problem 05/13/2016 [facility], [facility] [place], SARAH Hahn Pneumonia Resolved Problem 05/13/2016 [facility], SARAH [place], SARAH Hahn PUD - Peptic ulcer disease Resolved Problem 05/13/2016 [facility], SARAH [place], SARAH Hahn Steatosis of liver<sup>5</sup> Active Problem 05/13/2016 Data migrated from [facility] on 12/20/14. [facility], SARAH [place], SARAH Hahn Diabetes mellitus type 2 in obese Active Problem 05/13/2016 [facility], SARAH [place], SARAH Hahn FEVER NOS Active [facility] ASTHMA NOS Active [facility] PNEUMONIA, ORGANISM NOS Active [facility] CHR AIRWAY OBSTRUCT NEC Active [facility] BRONCHITIS NOS Active [facility] SEPSIS DUE TO UNSPECIFIED STAPHYLOCOCCUS Active [facility] ANEMIA, UNSPECIFIED Active [facility] Medications Medication Details Route Status Patient Instructions Ordering Provider Order Date Source pantoprazole 40 mg oral enteric coated tablet See Instructions, # 90 tab, TAKE 1 TABLET BY MOUTH DAILY, Pharmacy: [facility] [id number] Active 12/18/[facility] atorvastatin 10 mg oral tablet See Instructions, # 90 tab, TAKE 1 TABLET BY MOUTH EVERY DAY, Pharmacy: [facility] [id number] Active 12/09/2017 [facility] pantoprazole 40 mg oral enteric coated tablet See Instructions, # 90 tab, TAKE 1 TABLET BY MOUTH DAILY, Pharmacy: [facility] [id number] Active 11/12/2017 [facility] 3 ML Insulin Lispro 100 UNT/ML Pen Injector [Humalog] See Instructions, USE DIRECTED, # 45 mL, 5 Refill(s), Pharmacy: [facility] [id number] No Longer Active 10/28/2017 [facility] 3 ML Insulin Lispro 100 UNT/ML Pen Injector [Humalog] See Instructions, USE DIRECTED, # 45 mL, 5 Refill(s), Pharmacy: [facility] [id number] No Longer Active 10/28/2017 [facility] atorvastatin 10 mg oral tablet See Instructions, # 90 tab, TAKE 1 TABLET BY MOUTH EVERY DAY, Pharmacy: [facility] [id number] No Longer Active 09/09/2017 [facility] amoxicillin 500 mg oral tablet See Instructions, 1 tab PO q 8 hours, 0 Refill(s) Active 08/05/2017 [facility] 24 HR Nifedipine 30 MG Extended Release Tablet [Procardia] 30 mg=1 tab, PO, Daily, # 30 tab, 0 Refill(s) Active 08/05/2017 [facility] Furosemide 40 MG Oral Tablet 40 mg=1 tab, PO, Daily, # 30 tab, 0 Refill(s) Active 08/05/2017 [facility] BD Ultra-Fine Mini Insulin Pen [place] 31G 5mm=3/16 inch 1 ea, MISC, TID, Use as directed, # 900 ea, 3 Refill(s) Active 07/26/2017 [facility] azelastine nasal 0.1% (137 mcg/inh) spray 1 inhalation, Route: NASAL, Drug Form: SPRY, Dosing Weight 99.091, kg, Bedtime, Start date: 04/09/16 21:00:00 CDT, Duration: 30 day, Stop date: 05/08/16 21:00:00 CDTNotes: (azelastine 137 microgram/inh 34 ml nasal SPR) Non-formulary drug. Same As: Rosa) Inactive 04/10/2016 [facility] Docusate Sodium 50 MG / sennosides, JAIL 8.6 MG Oral Tablet 1 tab, PO, BID, X 30 day, # 60 tab, 0 Refill(s) Active 04/09/2016 [facility] Ciprofloxacin 500 MG Oral Tablet [Cipro] 500 mg=1 tab, PO, Q12H, X 12 day, # 24 tab, 0 Refill(s) Active 04/09/2016 [facility] Albuterol 0.83 MG/ML Inhalant Solution 2.49 mg, 3 mL, Route: INHALATION, Drug form: SOLN, RQ4H, Dosing Weight 99.091, kg, PRN Wheezing, Start date: 04/08/16 21:30:00 CDT, Duration: 30 day, Stop date: 05/08/16 21:29:00 CDTNotes: SEE RT DOCUMENTATION (Same as: Naz) No Longer Active 04/09/2016 [facility] Albuterol 0.83 MG/ML Inhalant Solution 1.245 mg, 1.5 mL, Route: PO, Drug form: SOLN, RQ4H, Dosing Weight 99.091, kg, PRN Wheezing, Start date: 04/08/16 19:01:00 CDT, Duration: 30 day, Stop date: 05/08/16 19:00:00 CDTNotes: SEE RT DOCUMENTATION (Same as: Proventil) Inactive 04/09/2016 [facility] Miralax 17 gm, 1 pkt, Route: PO, Drug form: PWDR, ONCE, Dosing Weight 99.091, kg, Start date: 04/08/16 9:18:00 CDT, Duration: 1 doses or times, Stop date: 04/08/16 9:18:00 CDTNotes: Dissolve in 8 oz of water or juice. (Same as: Miralax) Inactive 04/08/2016 [facility] Docusate Sodium 50 MG / sennosides, JAIL 8.6 MG Oral Tablet 1 tab, Route: PO, Drug Form: TAB, Dosing Weight 99.091, kg, BID, Start date: 04/08/16 9:17:00 CDT, Duration: 30 day, Stop date: 05/08/16 9:00:00 CDTNotes: (Same as Emanuel) Equiv. to Anamaria-Colace. No Longer Active 04/08/2016 [facility] insulin detemir 35 unit, 0.35 mL, Route: SUB-Q, Drug form: INJ, Daily, Dosing Weight 99.091, kg, Start date: 04/08/16 9:00:00 CDT, Duration: 30 day, Stop date: 05/07/16 9:00:00 CDTNotes: Same as Levemir Do not hold insulin without contacting prescriber WASTE: F/P - Black; E - [employer] Trash Bin "single patient use only" No Longer Active 04/08/2016 [facility] sodium chloride 0.45% 1000 ml INJ 1,000 mL 1,000 mL, Rate: 125 ml/hr, Infuse over: 8 hr, Route: IV, Dosing Weight 99.091 kg, Total Volume: 1,000, Start date: 04/08/16 8:01:00 CDT, Duration: 24 hr, Stop date: 04/09/16 8:06:00 CDT No Longer Active 04/08/2016 [facility] Sodium Chloride 0.154 MEQ/ML Injectable Solution 2,000 mL, 1,000 ml/hr, Infuse Over: 2 hr, Route: IV, 2,000, Drug form: INJ, ONCE, Priority: STAT, Dosing Weight 99.091 kg, Start date: 04/08/16 8:01:00 CDT, Stop date: 04/08/16 8:01:00 CDT Inactive 04/08/2016 [facility] insulin detemir 35 unit, 0.35 mL, Route: SUB-Q, Drug form: INJ, Bedtime, Dosing Weight 99.091, kg, Start date: 04/07/16 21:00:00 CDT, Duration: 30 day, Stop date: 05/06/16 21:00:00 CDTNotes: Same as Levemir Do not hold insulin without contacting prescriber WASTE: F/P - Black; E - [employer] Trash Bin "single patient use only" No Longer Active 04/08/2016 [facility] atorvastatin 10 mg, 1 tab, Route: PO, Drug form: TAB, Bedtime, Dosing Weight 99.091, kg, Start date: 04/07/16 21:00:00 CDT, Duration: 30 day, Stop date: 05/06/16 21:00:00 CDTNotes: (Same As: Lipitor) No Longer Active 04/08/2016 [facility] Singulair 4 mg, 1 tab, Route: PO, Drug form: CHEWTAB, QPM, Dosing Weight 99.091, kg, Start date: 04/07/16 17:00:00 CDT, Duration: 30 day, Stop date: 05/06/16 17:00:00 CDTNotes: (Same as:Singulair) No Longer Active 04/07/2016 [facility] pantoprazole 40 mg, 1 tab, Route: PO, Drug form: ECTAB, Before Dinner, Dosing Weight 99.091, kg, Start date: 04/07/16 16:30:00 CDT, Duration: 30 day, Stop date: 05/06/16 16:30:00 CDTNotes: Tablet should not be ch ewed or crushed. (Same as: Protonix) No Longer Active 04/07/2016 [facility] heparin 5,000 unit, 1 mL, Route: SUB-Q, Drug form: INJ, Q8H, Dosing Weight 99.091, kg, Start date: 04/07/16 16:00:00 CDT, Duration: 30 day, Stop date: 05/07/16 8:00:00 CDTNotes: porcine heparin No Longer Active 04/07/2016 [facility] meropenem 1,000 mg, Route: IVPB, Drug form: PDR/INJ, Q8H, Dosing Weight 99.091, kg, CrCl >50, Extended infusion, infuse over 3 hours, Start date: 04/07/16 16:00:00 CDT, Duration: 30 day, Stop date: 05/07/16 8:00:00 CDT Inactive 04/07/2016 [facility] Insulin, Aspart, Human 10 unit, 0.1 mL, Route: SUB-Q, Drug form: SOLN, TID-Before Meals, Dosing Weight 99.091, kg, PRN Blood Glucose Results, Start date: 04/07/16 12:44:00 CDT, Duration: 30 day, Stop date: 05/07/16 12:43:00 CDTNotes: Roll in palms of hands gently; Do not shake vigorously. (Same as: NovoLOG) "single patient use only" WASTE: F/P - Black; E - [employer] Trash Bin Stable for 28 days at room temperature. Expires in days from Date No Longer Active 04/07/2016 [facility] Glucagon 1 mg, Route: IM, Drug form: PDR/INJ, PRN, Dosing Weight 99.091, kg, PRN Blood Glucose Results, Start date: 04/07/16 12:44:00 CDT, Duration: 30 day, Stop date: 05/07/16 12:43:00 CDT No Longer Active 04/07/2016 [facility] Dextrose 50% Syringe 25 gm, 50 mL, Route: IVP, Drug Form: INJ, Dosing Weight 99.091, kg, PRN, PRN Blood Glucose Results, Start date: 04/07/16 12:44:00 CDT, Duration: 30 day, Stop date: 05/07/16 12:43:00 CDT No Longer Active 04/07/2016 [facility] Aspirin 81 MG Chewable Tablet 81 mg, 1 tab, Route: PO, Drug form: CHEWTAB, Daily, Dosing Weight 99.091, kg, Start date: 04/07/16 12:00:00 CDT, Duration: 30 day, Stop date: 05/07/16 9:00:00 CDTNotes: Take with food. No Longer Active 04/07/2016 [facility] meropenem 500 mg, Route: IVPB, ABXQ8H, Dosing Weight 99.091, kg, CrCL=26 -49 ml/min, Extended infusion, infuse over 3 hours, Start date: 04/07/16 12:00:00 CDT, Duration: 30 day, Stop date: 05/07/16 4:00:00 CDTNotes: Same as Merrem MEDICATION WASTE Product Size: 500 mg Product Wasted: ___ mg No Longer Active 04/07/2016 [facility] Ventolin HFA 90 mcg/inh inhalation aerosol with adapter 2 puff, Route: INHALER, Drug Form: AERO/A, Dosing Weight 99.091, kg, Q4H, PRN as needed for wheezing, Start date: 04/07/16 11:27:00 CDT, Duration: 30 day, Stop date: 05/07/16 11:26:00 CDTNotes: Albuterol 90 microgram/inh 8gm HFA WASTE: Aerosol - Return to Pharmacy Same as: Reece, Proventil No Longer Active 04/07/2016 [facility] Acetaminophen 325 mg, 1 tab, Route: PO, Drug form: TAB, Q4H, Dosing Weight 100, kg, PRN Pain Score 4-6, Start date: 04/07/16 9:14:00 CDT, Duration: 30 day, Stop date: 05/07/16 9:13:00 CDTNotes: Do not exceed 4 gm/ day. (Same as: Tylenol) No Longer Active 04/07/2016 [facility] Docusate 100 mg, 1 cap, Route: PO, Drug form: CAP, BID, Dosing Weight 100, kg, PRN Constipation, Start date: 04/07/16 9:14:00 CDT, Duration: 30 day, Stop date: 05/07/16 9:13:00 CDTNotes: (Same as: Colace) (Do Not Crush) No Longer Active 04/07/2016 [facility] Ondansetron 4 mg, 2 mL, Route: IVP, Drug form: INJ, Q6H, Dosing Weight 100, kg, PRN Nausea & Vomiting, Start date: 04/07/16 9:14:00 CDT, Duration: 30 day, Stop date: 05/07/16 9:13:00 CDTNotes: (Same as: Zofran) MEDICATION WASTE Product Size: 4 mg Product Wasted: ___ mg No Longer Active 04/07/2016 [facility] Acetaminophen 300 MG / Codeine Phosphate 30 MG Oral Tablet [Tylenol with Codeine #3] 1 tab, Route: PO, Drug Form: TAB, Dosing Weight 100, kg, ONCE, STAT, Start date: 04/07/16 7:06:00 CDT, Stop date: 04/07/16 7:06:00 CDTNotes: Do not exceed 4gm/day of acetaminophen. (Same as: Tylenol with Codeine # 3) Inactive 04/07/2016 [facility] Sodium Chloride 0.154 MEQ/ML Injectable Solution 1,000 mL, 1,000 ml/hr, Infuse Over: 1 hr, Route: IV, ONCE, Priority: STAT, Dosing Weight 100 kg, Start date: 04/07/16 6:34:00 CDT, Duration: 1 doses or times, Stop date: 04/07/16 6:34:00 CDT Inactive 04/07/2016 [facility] Saline Flush 0.9% 10 mL, Route: IVP, Drug Form: INJ, Dosing Weight 100, kg, PRN, PRN Line Flush, Start date: 04/07/16 6:34:00 CDT, Duration: 30 day, Stop date: 05/07/16 6:33:00 CDTNotes: preservative free. Inactive 04/07/2016 [facility] Ceftriaxone 1 gm, Route: IVPB, Drug form: PDR/INJ, ONCE, Dosing Weight 100, kg, Priority: STAT, Start date: 04/07/16 6:32:00 CDT, Stop date: 04/07/16 6:32:00 CDT Inactive 04/07/2016 [facility] Hydrochlorothiazide 25 MG Oral Tablet 25 mg=1 tab, PO, Daily, # 30 tab, 0 Refill(s) On Hold 04/07/2016 [facility] Zofran 4 mg, Route: IVP, Drug form: INJ, ONCE, Dosing Weight 99.091, kg, Priority: STAT, Start date: 04/06/16 18:39:00 CDT, Stop date: 04/06/16 18:39:00 CDT Inactive 04/06/2016 [facility] Sodium Chloride 0.154 MEQ/ML Injectable Solution 500 mL, 1,000 ml/hr, Infuse Over: 0.5 hr, Route: IV, 500, Drug form: INJ, ONCE, Priority: STAT, Dosing Weight 99.091 kg, Start date: 04/06/16 15:11:00 CDT, Duration: 1 doses or times, Stop date: 04/06/16 15:11:00 CDT Inactive 04/06/2016 [facility] d50 syringe 12.5 gm, 25 mL, Route: IVP, Drug Form: INJ, Dosing Weight 99.091, kg, ONCE, STAT, Start date: 04/06/16 15:10:00 CDT, Stop date: 04/06/16 15:10:00 CDT, 25 ml=12.5 gm Inactive 04/06/2016 [facility] Insulin regular 5 unit, 0.05 mL, Route: IVP, Drug form: INJ, ONCE, Dosing Weight 99.091, kg, Priority: STAT, Start date: 04/06/16 15:10:00 CDT, Stop date: 04/06/16 15:10:00 CDTNotes: (Same as: Humulin R and NovoLIN R) WASTE: F/P - Black; E - [employer] Trash Bin (Do not shake) Inactive 04/06/2016 [facility] Kayexalate 30 gm, 120 mL, Route: PO, Drug form: SUSP, ONCE, Dosing Weight 99.091, kg, Priority: STAT, Start date: 04/06/16 15:09:00 CDT, Stop date: 04/06/16 15:09:00 CDTNotes: (sodium polystyrene sulfonate 15 gm/60 ml GOLDEN) Shake well before use. (Same as: Kayexalate, SPS) Inactive 04/06/2016 [facility] Saline Flush 0.9% 10 mL, Route: IVP, Drug Form: INJ, Dosing Weight 100.909, kg, PRN, PRN Line Flush, Start date: 04/06/16 13:24:00 CDT, Duration: 30 day, Stop date: 05/06/16 13:23:00 CDTNotes: (Same as: BD Posiflush) Inactive 04/06/2016 [facility] Cephalexin 500 MG Oral Capsule [Keflex] 500 mg=1 cap, PO, QID, X 10 day, # 40 cap, 0 Refill(s), Pharmacy: [email or web address] [id number] Active 10/01/2015 [facility] Albuterol 0.83 MG/ML Inhalant Solution 2.49 mg, 3 mL, Route: NEB, Drug form: SOLN, ONCE, Dosing Weight 97.273, kg, Priority: STAT, Start date: 10/01/15 11:28:00, Stop date: 10/01/15 11:28:00Notes: SEE RT DOCUMENTATION (Same as: Proventil) Inactive 10/01/2015 [facility] Saline Flush 0.9% 10 mL, Route: IVP, Drug Form: INJ, Dosing Weight 97.273, kg, PRN, PRN Line Flush, Start date: 10/01/15 8:20:00, Duration: 30 day, Stop date: 10/31/15 9:19:00Notes: (Same as: BD Posiflush) Inactive 10/01/2015 [facility] Benicar 40 mg, 2 tab, Route: PO, Drug form: TAB, ONCE, Dosing Weight 97.273, kg, Start date: 09/22/15 12:56:00, Stop date: 09/22/15 12:56:00 Inactive 09/22/2015 [facility] Ciprofloxacin 250 MG Oral Tablet [Cipro] 250 mg=1 tab, PO, Q12H, X 7 day, # 14 tab, 0 Refill(s), Pharmacy: [email or web address] [id number] Active 09/22/2015 [facility] Ondansetron 4 MG Oral Tablet [Zofran] 4 mg=1 tab, PO, BID, X 5 day, # 10 tab, 0 Refill(s), Pharmacy: [email or web address] [id number] Active 09/22/2015 [facility] Ciprofloxacin 500 mg, Route: PO, ONCE, Dosing Weight 97.273, kg, Priority: STAT, Start date: 09/22/15 12:50:00, Stop date: 09/22/15 12:50:00 Inactive 09/22/2015 [facility] Sodium Chloride 0.154 MEQ/ML Injectable Solution 1,000 mL, 1,000 ml/hr, Infuse Over: 1 Hour, Route: IV, ONCE, Priority: STAT, Dosing Weight 97.273 kg, Start date: 09/22/15 8:51:00, Duration: 1 doses or times, Stop date: 09/22/15 8:51:00 Inactive 09/22/2015 [facility] Morphine 4 mg, Route: IVP, ONCE, Dosing Weight 97.273, kg, Priority: STAT, Start date: 09/22/15 8:47:00, Stop date: 09/22/15 8:47:00 Inactive 09/22/2015 [facility] Ondansetron 4 mg, Route: IVP, ONCE, Dosing Weight 97.273, kg, Priority: STAT, Start date: 09/22/15 8:47:00, Stop date: 09/22/15 8:47:00 Inactive 09/22/2015 [facility] Sodium Chloride 0.154 MEQ/ML Injectable Solution 1,000 mL, Infuse Over: 1 hr, Route: IV, ONCE, Priority: STAT, Dosing Weight 97.273 kg, Start date: 09/22/15 8:47:00, Duration: 1 doses or times, Stop date: 09/22/15 8:47:00 Inactive 09/22/2015 [facility] Saline Flush 0.9% 10 mL, Route: IVP, Drug Form: INJ, Dosing Weight 97.273, kg, PRN, PRN Line Flush, Start date: 09/22/15 8:47:00, Duration: 30 day, Stop date: 10/22/15 9:46:00Notes: (Same as: BD Posiflush) Inactive 09/22/2015 [facility] Ventolin HFA 90 mcg/inh inhalation aerosol with adapter 2 puff, INHALER, Q4H, PRN wheezing, coughing, or shortness of breath, # 8 gm, 1 Refill(s) Active 03/01/2015 [facility] {21 (Methylprednisolone 4 MG Oral Tablet [Medrol]) } Pack [Medrol Dosepak] See Instructions, PO, Take by mouth as directed on label., X 6 day, # 1 Pack, 0 Refill(s)Special Instructions: Take by mouth as directed on label. Active 03/01/2015 [facility] atorvastatin 10 mg, 1 tab, Route: PO, Drug form: TAB, QAM, Dosing Weight 94.091, kg, Start date: 02/28/15 9:00:00, Duration: 30 day, Stop date: 03/29/15 9:00:00Notes: (Same As: Lipitor) No Longer Active 02/28/2015 [facility] Aspirin 81 MG Chewable Tablet 81 mg, 1 tab, Route: PO, Drug form: CHEWTAB, Daily, Dosing Weight 94.091, kg, Start date: 02/28/15 9:00:00, Duration: 30 day, Stop date: 03/29/15 9:00:00Notes: Take with food. No Longer Active 02/28/2015 [facility] Amlodipine 10 mg, 2 tab, Route: PO, Drug form: TAB, Daily, Dosing Weight 94.091, kg, Start date: 02/28/15 9:00:00, Duration: 30 day, Stop date: 03/29/15 9:00:00Notes: (Same as: Norvasc) No Longer Active 02/28/2015 [facility] Benicar 40 mg, 2 tab, Route: PO, Drug form: TAB, Daily, Dosing Weight 94.091, kg, Start date: 02/28/15 9:00:00, Duration: 30 day, Stop date: 03/29/15 9:00:00 No Longer Active 02/28/2015 [facility] Insulin, Aspart, Human 12 unit, 0.12 mL, Route: SUB-Q, Drug form: SOLN, ONCE, Dosing Weight 94.091, kg, Start date: 02/27/15 22:01:00, Stop date: 02/27/15 22:01:00Notes: Roll in palms of hands gently; Do not shake vigorously. (Same as: NovoLOG) "single patient use only" Stable for 28 days at room temperature. Expires in days from Date Inactive 02/28/2015 [facility] Levemir FlexPen 23 unit, 0.23 mL, Route: SUB-Q, Drug form: INJ, Bedtime, Dosing Weight 94.091, kg, Start date: 02/27/15 21:00:00, Duration: 30 day, Stop date: 03/28/15 21:00:00Notes: Same as Levliliir Do not hold insulin without contacting prescriber "single patient use only" No Longer Active 02/28/2015 [facility] Protonix 40 mg, 1 pkt, Route: PEG, Drug form: GRAN/REC, Before Dinner, Dosing Weight 94.091, kg, Start date: 02/27/15 16:30:00, Duration: 30 day, Stop date: 03/28/15 16:30:00Notes: Same as: Protonix Mix in 5 mL apple juice or applesauce for oral & 10mL apple juice for NG tube No Longer Active 02/27/2015 [facility] Solu-Medrol 40 mg, 1 mL, Route: IVP, Drug form: INJ, [id number], Dosing Weight 94.091, kg, Start date: 02/27/15 15:00:00, Duration: 30 day, Stop date: 03/29/15 3:00:00Notes: (Same as:Solu-MEDROL, A-Methapred) No Longer Active 02/27/2015 [facility] pantoprazole 40 mg, PO, Daily, # 30 tab, 0 Refill(s) Active 02/27/2015 [facility] Ursodeoxycholate 300 mg, 1 cap, Route: PO, Drug form: CAP, TID, Dosing Weight 94.091, kg, Start date: 02/27/15 13:00:00, Duration: 30 day, Stop date: 03/29/15 9:00:00Notes: (Same As: Actigall) No Longer Active 02/27/2015 [facility] Insulin, Aspart, Human 4 unit, 0.04 mL, Route: SUB-Q, Drug form: SOLN, Bedtime, Dosing Weight 94.091, kg, PRN Blood Glucose Results, Start date: 02/27/15 12:50:00, Duration: 30 day, Stop date: 03/29/15 12:49:00Notes: Roll in palms of hands gently; Do not shake vigorously. (Same as: NovoLOG) "single patient use only" Stable for 28 days at room temperature. Expires in days from Date No Longer Active 02/27/2015 [facility] Dextrose 50% Syringe 25 gm, 50 mL, Route: IVP, Drug Form: INJ, Dosing Weight 94.091, kg, PRN, PRN Blood Glucose Results, Start date: 02/27/15 12:50:00, Duration: 30 day, Stop date: 03/29/15 12:49:00 No Longer Active 02/27/2015 [facility] Glucagon 1 mg, Route: IM, Drug form: PDR/INJ, PRN, Dosing Weight 94.091, kg, PRN Blood Glucose Results, Start date: 02/27/15 12:50:00, Duration: 30 day, Stop date: 03/29/15 12:49:00 No Longer Active 02/27/2015 [facility] Ursodeoxycholate 300 mg, PO, TID, 0 Refill(s) Active 02/27/2015 [facility] Nitroglycerin 0.4 MG Sublingual Tablet 0.4 mg, 1 tab, Route: SL, Drug form: TAB, Q5Min, Dosing Weight 94.091, kg, PRN Chest Pain, Start date: 02/27/15 8:56:00, Duration: 30 day, Stop date: 03/29/15 8:55:00Notes: (Same as:Nitroquick, Nitrostat) "Do Not Crush" Sublingual tablet No Longer Active 02/27/2015 [facility] Atropine 0.5 mg, 5 mL, Route: IV, Drug form: INJ, PRN, Dosing Weight 94.091, kg, PRN Bradycardia, Start date: 02/27/15 8:56:00, Duration: 30 day, Stop date: 03/29/15 8:55:00 No Longer Active 02/27/2015 [facility] Albuterol 0.83 MG/ML Inhalant Solution 2.49 mg, 3 mL, Route: NEB, Drug form: SOLN, RQ4H, Dosing Weight 94.091, kg, Start date: 02/27/15 7:00:00, Duration: 30 day, Stop date: 03/29/15 3:00:00, Pediatric DosingSpecial Instructions: Pediatric DosingNotes: SEE RT DOCUMENTATION (Same as: Proventil) No Longer Active 02/27/2015 [facility] Albuterol 0.833 MG/ML / Ipratropium [place] 0.167 MG/ML Inhalant Solution [DuoNeb] 3 ml, Route: INHALATION, Drug Form: SOLN, Dosing Weight 94.091, kg, PRN, PRN Respiratory Protocol, Start date: 02/27/15 6:27:00, Duration: 30 day, Stop date: 03/29/15 6:26:00Notes: (Same as: Duoneb) No Longer Active 02/27/2015 [facility] Ondansetron 4 mg, 2 mL, Route: IVP, Drug form: INJ, Q6H, Dosing Weight 94.091, kg, PRN Nausea & Vomiting, Start date: 02/27/15 6:27:00, Duration: 30 day, Stop date: 03/29/15 6:26:00Notes: (Same as: Zofran) MEDICATION WASTE Product Size: 4 mg Product Wasted: ___ mg No Longer Active 02/27/2015 [facility] Docusate 100 mg, 1 cap, Route: PO, Drug form: CAP, BID, Dosing Weight 94.091, kg, PRN Constipation, Start date: 02/27/15 6:27:00, Duration: 30 day, Stop date: 03/29/15 6:26:00Notes: (Same as: Colace) (Do Not Crush) No Longer Active 02/27/2015 [facility] Acetaminophen 650 mg, 2 tab, Route: PO, Drug form: TAB, Q4H, Dosing Weight 94.091, kg, PRN Pain 1-3/Temp > 100.4 F, Start date: 02/27/15 6:27:00, Duration: 30 day, Stop date: 03/29/15 6:26:00Notes: Do not exceed 4 gm/day. (Same as: Tylenol) No Longer Active 02/27/2015 [facility] Morphine 2 mg, 1 mL, Route: IVP, Drug form: INJ, Q4H, Dosing Weight 94.091, kg, PRN Pain Score 7-10, Start date: 02/27/15 6:27:00, Duration: 30 day, Stop date: 03/29/15 6:26:00Notes: (Same as:MORPhine Sulfate) No Longer Active 02/27/2015 [facility] Benicar 40 mg, 2 tab, Route: PO, Drug form: TAB, ONCE, Dosing Weight 94.091, kg, Priority: NOW, Start date: 02/27/15 5:33:00, Stop date: 02/27/15 5:33:00 Inactive 02/27/2015 [facility] methylPREDNISolone SODium SUCCinate 125 mg, Route: IVP, ONCE, Dosing Weight 94.091, kg, Priority: STAT, Start date: 02/27/15 3:34:00, Stop date: 02/27/15 3:34:00 Inactive 02/27/2015 [facility] Albuterol 0.833 MG/ML / Ipratropium [place] 0.167 MG/ML Inhalant Solution 3 mL, Route: NEB, Drug Form: SOLN, Dosing Weight 94.091, kg, ONCE, STAT, Start date: 02/27/15 1:50:00, Stop date: 02/27/15 1:50:00 Inactive 02/27/2015 [facility] Saline Flush 0.9% 10 mL, Route: IVP, Drug Form: INJ, Dosing Weight 94.091, kg, PRN, PRN Line Flush, Start date: 02/27/15 1:50:00, Duration: 30 day, Stop date: 03/29/15 1:49:00Notes: (Same as: BD Posiflush) Inactive 02/27/2015 [facility] doxycycline monohydrate 100 mg oral tablet 100 mg=1 tab, PO, Q12H, # 20 tab, 0 Refill(s) Active 10/10/2014 [facility] predniSONE 10 mg oral tablet See Special Instructions, PO, Daily, 12 day regimen: Days 1-4 - 20 mg (2 tabs) daily Days 5-8 - 10 mg (1 tab) daily Days 9-12 - 5 mg (1/2 tab) daily, # 12 tab, 0 Refill(s)Special Instructions: 12 day regimen: Days 1-4 - 20 mg (2 tabs) daily Days 5-8 - 10 mg (1 tab) daily Days 9-12 - 5 mg (1/2 tab) daily Active 10/10/2014 [facility] Albuterol 0.833 MG/ML / Ipratropium [place] 0.167 MG/ML Inhalant Solution [DuoNeb] 3 ml, Route: INHALATION, Drug Form: SOLN, Dosing Weight 92.727, kg, PRN, PRN Respiratory Protocol, Start date: 10/10/14 11:22:00, Duration: 30 day, Stop date: 11/09/14 11:21:00Notes: (Same as: Duoneb) Inactive 10/10/2014 [facility] Albuterol 0.833 MG/ML / Ipratropium [place] 0.167 MG/ML Inhalant Solution [DuoNeb] 3 ml, Route: INHALATION, Drug Form: SOLN, Dosing Weight 92.727, kg, PRN, PRN Respiratory Protocol, Start date: 10/10/14 11:21:00, Duration: 30 day, Stop date: 11/09/14 11:20:00Notes: (Same as: Duoneb) Inactive 10/10/2014 [facility] Saline Flush 0.9% 10 mL, Route: IVP, Drug Form: INJ, Dosing Weight 92.727, kg, PRN, PRN Line Flush, Start date: 10/10/14 11:21:00, Duration: 30 day, Stop date: 11/09/14 11:20:00Notes: Same as: BD Posiflush Sterile Inactive 10/10/2014 [facility] Sulfamethoxazole 800 MG / Trimethoprim 160 MG Oral Tablet [Bactrim] 1 tab, PO, BID, # 14 tab, 0 Refill(s) Active 08/23/2014 [facility] benzonatate 100 MG Oral Capsule [Tessalon Perles] 100 mg=1 cap, PO, TID, # 30 cap, 0 Refill(s) Active 05/16/2014 [facility] Albuterol 0.833 MG/ML / Ipratropium [place] 0.167 MG/ML Inhalant Solution 3 mL, Route: NEB, Drug Form: SOLN, Dosing Weight 92.727, kg, ONCE, STAT, Start date: 05/16/14 12:48:00, Stop date: 05/16/14 12:48:00 Inactive 05/16/2014 [facility] Saline Flush 0.9% 10 mL, Route: IVP, Drug Form: INJ, Dosing Weight 92.727, kg, PRN, PRN Line Flush, Start date: 05/16/14 12:48:00, Duration: 30 day, Stop date: 06/15/14 11:47:00 Inactive 05/16/2014 [facility] Levemir FlexPen 25 unit, 0.25 mL, Route: SUB-Q, Drug form: INJ, Bedtime, Start date: 01/09/13 21:00:00, Duration: 30 day, Stop date: 02/07/13 21:00:00 SUB-Q No Longer Active Rickie 01/10/2013 [facility] Protonix 40 mg oral enteric coated tablet 40 mg, 1 tab, PO, Daily, 30 tab, Substitution Allowed, ECTAB PO Active [facility] 01/09/2013 [facility] amLODipine 10 mg oral tablet 10 mg, 1 tab, PO, Daily, 30 tab, Substitution Allowed, TAB PO Active [facility] 01/09/2013 [facility] predniSONE 10 mg oral tablet 10 mg, 1 tab, PO, Daily, 14 tab, Substitution Allowed, TAB PO Active [facility] 01/09/2013 [facility] Levemir FlexPen 10 unit, 0.1 mL, Route: SUB-Q, Drug form: INJ, QAM, Start date: 01/09/13 9:00:00, Duration: 30 day, Stop date: 02/07/13 9:00:00 SUB-Q No Longer Active Rickie 01/09/2013 [facility] NS 1,000 mL 1,000 mL, Rate: 75 ml/hr, Infuse over: 13.3 hr, Route: IV, Dosing Weight 93.636 kg, Total Volume: 1,000, Start date: 01/09/13 8:07:00, Duration: 30 day, Stop date: 02/08/13 8:06:00 IV No Longer Active Rickie 01/09/2013 [facility] Levemir FlexPen 15 unit, 0.15 mL, Route: SUB-Q, Drug form: INJ, Daily, Dosing Weight 93.636, kg, Start date: 01/08/13 21:00:00, Duration: 30 day, Stop date: 02/06/13 21:00:00 SUB-Q No Longer Active Rickie 01/09/2013 [facility] NovoLog FlexPen 18 unit, 0.18 mL, Route: SUB-Q, Drug form: SOLN, Sliding Scale, PRN Blood Glucose Results, Start date: 01/08/13 18:56:00, Duration: 30 day, Stop date: 02/07/13 18:55:00 SUB-Q No Longer Active [place] 01/08/2013 [facility] NovoLog FlexPen 12 unit, 0.12 mL, Route: SUB-Q, Drug form: SOLN, Sliding Scale, PRN Blood Glucose Results, Start date: 01/08/13 18:55:00, Duration: 30 day, Stop date: 02/07/13 18:54:00 SUB-Q No Longer Active [place] 01/08/2013 [facility] NovoLog FlexPen 8 unit, Route: SUB-Q, Drug form: SOLN, Sliding Scale, PRN Blood Glucose Results, Start date: 01/08/13 18:53:00, Duration: 30 day, Stop date: 02/07/13 18:52:00 SUB-Q No Longer Active [place] 01/08/2013 [facility] pantoprazole 40 mg, 1 tab, Route: PO, Drug form: ECTAB, Daily, Dosing Weight 93.636, kg, Priority: Routine, Start date: 01/08/13 9:00:00, Stop date: 02/06/13 9:00:00 PO No Longer Active [facility] 01/08/2013 [facility] SoluMedrol 40 mg, 1 mL, Route: IVP, Drug form: INJ, Q12H, Dosing Weight 93.636, kg, Start date: 01/08/13 9:00:00, Duration: 30 day, Stop date: 02/06/13 21:00:00 IVP No Longer Active [facility] 01/08/2013 [facility] Diovan 320 mg, 2 tab, Route: PO, Drug form: TAB, Daily, Dosing Weight 93.636, kg, Start date: 01/08/13 9:00:00, Duration: 30 day, Stop date: 02/06/13 9:00:00 PO No Longer Active [facility] 01/08/2013 [facility] pneumococcal 23-valent vaccine 0.5 ml, Route: IM, Drug Form: INJ, Daily, Start date: 01/08/13 9:00:00, Duration: 1 doses or times, Stop date: 01/08/13 9:00:00 IM No Longer Active [facility] 01/08/2013 [facility] aspirin 81 mg tablet, chewable 81 mg, 1 tab, Route: PO, Drug form: CHEWTAB, Daily, Dosing Weight 93.636, kg, Start date: 01/08/13 9:00:00, Duration: 30 day, Stop date: 02/06/13 9:00:00 [facility] atorvastatin 10 mg, 1 tab, Route: PO, Drug form: TAB, QAM, Dosing Weight 93.636, kg, Start date: 01/08/13 9:00:00, Duration: 30 day, Stop date: 02/06/13 9:00:00 [facility] amLODipine 5 mg, 1 tab, Route: PO, Drug form: TAB, BID, Dosing Weight 93.636, kg, Start date: 01/08/13 9:00:00, Duration: 30 day, Stop date: 02/06/13 21:00:00 PO No [facility]er [facility] NovoLog FlexPen 12 unit, 0.12 mL, Route: SUB-Q, Drug form: SOLN, Sliding Scale, PRN Blood Glucose Results, Start date: 01/08/13 8:59:00, Duration: 30 day, Stop date: 02/07/13 8:58:00 SUB-Q No Longer Active Earnest 01/08/2013 [facility] DuoNeb inhalation solution 3 mL, Route: INHALATION, Drug Form: SOLN, Dosing Weight 93.636, kg, RQ6H, Start date: 01/08/13 8:00:00, Duration: 30 day, Stop date: 02/07/13 2:00:00 INHALATION No Longer Active [facility] 01/08/2013 [facility] codeine-guaifenesin 10 mg-200 mg/5 mL oral liquid 10 mL, Route: PO, Drug Form: LIQ, Dosing Weight 93.636, kg, Q4H, PRN as needed for cough, Start date: 01/08/13 4:50:00, Duration: 30 day, Stop date: 02/07/13 4:49:00 PO No [facility] Zofran 4 mg, 2 mL, Route: IV, Drug form: INJ, Q4H, Dosing Weight 93.636, kg, PRN as needed for nausea/vomiting, Start date: 01/08/13 4:50:00, Duration: 30 day, Stop date: 02/07/13 4:49:00 IV No Longer Active Yasmin 01/08/2013 [facility] acetaminophen 650 mg, 2 tab, Route: PO, Drug form: TAB, Q6H, Dosing Weight 93.636, kg, PRN Pain, Start date: 01/08/13 4:50:00, Duration: 30 day, Stop date: 02/07/13 4:49:00 PO No Longer Active Yasmin 01/08/2013 [facility] azithromycin + Sodium Chloride 0.9% IV 250 mL 500 mg, Route: IVPB, [id number], Dosing Weight 90.455, kg, Priority: Routine, Start date: 01/08/13 3:00:00, Duration: 30 day, Stop date: 02/06/13 3:00:00 IVPB No Longer Active E[facility] 01/08/2013 [facility] ceftriaxone + Sodium Chloride 0.9% IV 100 mL 1 gm, Route: IVPB, [id number], Dosing Weight 90.455, kg, Priority: Routine, Start date: 01/08/13 3:00:00, Duration: 30 day, Stop date: 02/06/13 3:00:00 IVPB No Longer Active Earnest 01/08/2013 [facility] Dextrose 50% Syringe 25 gm, 50 mL, Route: IVP, Drug Form: INJ, Dosing Weight 90.455, kg, PRN, PRN Blood Glucose Results, Start date: 01/08/13 2:41:00, Duration: 30 day, Stop date: 02/07/13 2:40:00 IVP No Longer Active Rickie 01/08/2013 [facility] insulin aspart 4 unit, 0.04 mL, Route: SUB-Q, Drug form: SOLN, Bedtime, Dosing Weight 90.455, kg, PRN Blood Glucose Results, Start date: 01/08/13 2:41:00, Duration: 30 day, Stop date: 02/07/13 2:40:00 SUB-Q No Longer Active [facility]ie 01/08/2013 [facility] glucagon 1 mg, Route: IM, Drug form: PDR/INJ, PRN, Dosing Weight 90.455, kg, PRN Blood Glucose Results, Start date: 01/08/13 2:41:00, Duration: 30 day, Stop date: 02/07/13 2:40:00 IM No Longer Active Rickie 01/08/2013 [facility] albuterol-ipratropium 2.5-0.5 mg inhalation solution 3 mL, Route: NEB, Drug Form: SOLN, Dosing Weight 90.455, kg, PRN, PRN Respiratory Protocol, Start date: 01/08/13 2:39:00, Duration: 30 day, Stop date: 02/07/13 2:38:00 [facility] acetaminophen 650 mg, 20.3 mL, Route: PO, Drug form: LIQ, Q4H, Dosing Weight 90.455, kg, PRN Pain Score 1-3, For fever > 100.4. Not to exceed 4 grams in 24 hours, Start date: 01/08/13 2:39:00, Duration: 30 day, Stop date: 02/07/13 2:38:00 PO No Longer Active Rickie 01/08/2013 [facility] DuoNeb inhalation solution 3 ml, Route: INHALATION, Drug Form: SOLN, Dosing Weight 90.455, kg, PRN, PRN Respiratory Protocol, Start date: 01/08/13 1:38:00, Duration: 30 day, Stop date: 02/07/13 1:37:00 INHALATION No Longer Active [place] 01/08/2013 [facility] azithromycin + Sodium Chloride 0.9% IV 250 mL 500 mg, Route: IVPB, ONCE, Dosing Weight 90.455, kg, Priority: STAT, Start date: 01/08/13 0:48:00, Stop date: 01/08/13 0:48:00 IVPB No Longer Active Madelin 01/08/2013 [facility] ceftriaxone + Sodium Chloride 0.9% IV 100 mL 1 gm, Route: IVPB, ONCE, Dosing Weight 90.455, kg, Priority: STAT, Start date: 01/08/13 0:48:00, Stop date: 01/08/13 0:48:00 IVPB No Longer Active [place] 01/08/2013 [facility] amLODipine 5 mg, 1 tab, Route: PO, Drug form: TAB, ONCE, Dosing Weight 90.455, kg, Start date: 01/08/13 0:23:00, Stop date: 01/08/13 0:23:00 PO No Longer Active [place] 01/08/2013 [facility] metoprolol tartrate 50 mg, 1 tab, Route: PO, Drug form: TAB, ONCE, Dosing Weight 90.455, kg, Priority: STAT, Start date: 01/08/13 0:23:00, Stop date: 01/08/13 0:23:00 PO No Longer Active [place] 01/08/2013 [facility] Pepcid 40 mg, 1 tab, Route: PO, Drug form: TAB, ONCE, Start date: 01/07/13 20:56:00, Stop date: 01/07/13 20:56:00 PO No Longer Active [place] 01/08/2013 [facility] Zantac 300 300 mg, Route: PO, ONCE, Dosing Weight 90.455, kg, Start date: 01/07/13 20:18:00, Stop date: 01/07/13 20:18:00 PO No Longer Active [place] 01/08/2013 [facility] albuterol-ipratropium 2.5-0.5 mg inhalation solution 3 mL, Route: NEB, Dosing Weight 90.455, kg, ONCE, STAT, Start date: 01/07/13 20:17:00, Stop date: 01/07/13 20:17:00 NEB No Longer Active [place] 01/08/2013 [facility] methylPREDNISolone SODium SUCCinate 20 mg, 0.5 mL, Route: IVP, Drug form: INJ, Daily, Dosing Weight 92.727, kg, Start date: 09/04/12 9:00:00, Duration: 30 day, Stop date: 10/03/12 9:00:00 IVP No Longer Active [facility] [place]/2012 [facility] NovoLog 10 unit, 0.1 mL, Route: SUB-Q, Drug form: SOLN, ONCE, Dosing Weight 92.5, kg, Start date: 09/03/12 13:30:00, Stop date: 09/03/12 13:30:00 SUB-Q No Longer Active [facility] 09/03/2012 [facility] Vantin 200 mg oral tablet 200 mg, 1 tab, PO, Q12H, 14 tab, Substitution Allowed, TAB PO Active [facility] [place] 09/03/2012 [facility] Medrol Dosepak 4 mg Tablet As directed on package instructions, PO, Daily, Take with or without food, 1 Pack, Substitution AllowedTake with or without food PO Active [facility] [place] 09/03/2012 [facility] albuterol 90 mcg/inh inhalation aerosol 1 puff, INHALATION, QID, PRN, 1 ea, wheezing, Substitution Allowed, Maintenance INHALATION Active [facility] 09/03/2012 [facility] Tussionex [employer] oral suspension, extended release 5 ml, PO, Q12H, PRN, 100 mL, for cough, Substitution Allowed, Maintenance, ER Suspension PO Active [facility] 09/03/2012 [facility] atorvastatin 10 mg, 1 tab, Route: PO, Drug form: TAB, QAM, Dosing Weight 92.5, kg, Start date: 09/03/12 9:00:00, Duration: 30 day, Stop date: 10/02/12 9:00:00 PO No Longer Active [facility] 09/03/2012 [facility] aspirin 81 mg tablet, chewable 81 mg, 1 tab, Route: PO, Drug form: CHEWTAB, Daily, Dosing Weight 92.5, kg, Start date: 09/03/12 9:00:00, Duration: 30 day, Stop date: 10/02/12 9:00:00 PO No Longer Active [facility] 09/03/2012 [facility] amLODipine 5 mg, 1 tab, Route: PO, Drug form: TAB, BID, Dosing Weight 92.5, kg, Start date: 09/03/12 9:00:00, Duration: 30 day, Stop date: 10/02/12 17:00:00 PO No Longer Active [facility] 09/03/2012 [facility] Diovan 320 mg, 2 tab, Route: PO, Drug form: TAB, Daily, Dosing Weight 92.5, kg, Start date: 09/03/12 9:00:00, Duration: 30 day, Stop date: 10/02/12 9:00:00 PO No Longer Active [facility] 09/03/2012 [facility] metoprolol extended release 100 mg, 1 tab, Route: PO, Drug form: ERTAB, QAM, Start date: 09/03/12 9:00:00, Duration: 30 day, Stop date: 10/02/12 9:00:00 PO No Longer Active [facility] 09/03/2012 [facility] NovoLog PenFill Route: SUB-Q, Drug form: SOLN, TID-Meals, Dosing Weight 92.5, kg, Start date: 09/03/12 8:00:00, Duration: 30 day, Stop date: 10/02/12 17:00:00 SUB-Q No Longer Active [facility] 09/03/2012 [facility] NovoLog 10 unit, 0.1 mL, Route: SUB-Q, Drug form: SOLN, ONCE, Dosing Weight 92.5, kg, Priority: NOW, Start date: 09/02/12 22:19:00, Stop date: 09/02/12 22:19:00 SUB-Q No Longer Active [facility] 09/03/2012 [facility] Toprol-XL 50 mg oral tablet, extended release 50 mg, 1 tab, Route: PO, Drug form: ERTAB, QPM, Start date: 09/02/12 21:00:00, Duration: 30 day, Stop date: 10/01/12 21:00:00 PO No Longer Active [facility] 09/03/2012 [facility] Levemir FlexPen 15 unit, 0.15 mL, Route: SUB-Q, Drug form: INJ, Bedtime, Dosing Weight 92.5, kg, Start date: 09/02/12 21:00:00, Duration: 30 day, Stop date: 10/01/12 21:00:00 SUB-Q No Longer Active [facility] [place] 09/03/2012 [facility] insulin detemir 25 unit, 0.25 mL, Route: SUB-Q, Drug form: INJ, Bedtime, Dosing Weight 92.5, kg, Start date: 09/02/12 21:00:00, Duration: 30 day, Stop date: 10/01/12 21:00:00 SUB-Q No Longer Active [facility] [place] 09/03/2012 [facility] methylPREDNISolone SODium SUCCinate 40 mg, 1 mL, Route: IVP, Drug form: INJ, Q12H, Dosing Weight 92.727, kg, Start date: 09/02/12 21:00:00, Duration: 30 day, Stop date: 10/02/12 9:00:00 IVP No Longer Active [facility] [place] 09/03/2012 [facility] enoxaparin 40 mg, 0.4 mL, Route: SUB-Q, Drug form: INJ, [id number], Dosing Weight 92.5, kg, Start date: 09/02/12 18:00:00, Duration: 30 day, Stop date: 10/01/12 18:00:00 SUB-Q No Longer Active [facility] 09/03/2012 [facility] Tylenol 650 mg, 2 tab, Route: PO, Drug form: TAB, Q6H, Dosing Weight 92.5, kg, PRN Pain Score 1-3, Start date: 09/02/12 17:46:00, Duration: 30 day, Stop date: 10/02/12 17:45:00 PO No Longer Active [facility] 09/02/2012 [facility] Radom 5/325 oral tablet 1 tab, Route: PO, Drug Form: TAB, Dosing Weight 92.5, kg, Q6H, PRN Pain Score 1-5, Start date: 09/02/12 17:46:00, Duration: 30 day, Stop date: 10/02/12 17:45:00 PO No Longer Active [facility] 09/02/2012 [facility] morphine Sulfate 2 mg, 1 mL, Route: IVP, Drug form: INJ, Q4H, Dosing Weight 92.5, kg, PRN Pain Score 6-10, Start date: 09/02/12 17:45:00, Duration: 30 day, Stop date: 10/02/12 17:44:00 IVP No Longer Active [facility] 09/02/2012 [facility] dextromethorphan-guaifenesin 10 mg-100 mg/5 mL oral liquid 10 ml, Route: PO, Drug Form: SYRP, Dosing Weight 92.5, kg, Q4H, PRN Cough, Start date: 09/02/12 17:44:00, Duration: 30 day, Stop date: 10/02/12 17:43:00 PO No Longer Active [facility] 09/02/2012 [facility] Tessalon Perles 100 mg, 1 cap, Route: PO, Drug form: CAP, TID, Dosing Weight 92.5, kg, PRN Cough, Start date: 09/02/12 17:44:00, Duration: 30 day, Stop date: 10/02/12 17:43:00 PO No Longer Active [facility] 09/02/2012 [facility] Zofran 4 mg, 2 mL, Route: IV, Drug form: INJ, Q6H, Dosing Weight 92.5, kg, PRN Nausea, Start date: 09/02/12 17:44:00, Duration: 30 day, Stop date: 10/02/12 17:43:00 IV No Longer Active [facility] 09/02/2012 [facility] insulin aspart 6 unit, 0.06 mL, Route: SUB-Q, Drug form: SOLN, TID-Before Meals, Dosing Weight 92.5, kg, PRN Blood Glucose Results, Start date: 09/02/12 17:44:00, Duration: 30 day, Stop date: 10/02/12 17:43:00 SUB-Q No Longer Active [facility] 09/02/2012 [facility] Dextrose 50% Syringe 12.5 gm, 25 mL, Route: IVP, Drug Form: INJ, Dosing Weight 92.5, kg, PRN, PRN Blood Glucose Results, Start date: 09/02/12 17:44:00, Duration: 30 day, Stop date: 10/02/12 18:43:00 IVP No Longer Active [facility] 09/02/2012 [facility] glucagon 1 mg, Route: IM, Drug form: PDR/INJ, PRN, Dosing Weight 92.5, kg, PRN Blood Glucose Results, Start date: 09/02/12 17:44:00, Duration: 30 day, Stop date: 10/02/12 18:43:00 IM No Longer Active [facility] [place]2012 [facility] nitroglycerin 0.4 mg sublingual tablet 0.4 mg, 1 tab, Route: SL, Drug form: TAB, Q5Min, PRN Chest Pain, Start date: 09/02/12 17:01:00, Duration: 30 day, Stop date: 10/02/12 18:00:00 SL No Longer Active [facility] [place]2012 [facility] atropine 0.5 mg, 5 mL, Route: IVP, Drug form: INJ, PRN, PRN Bradycardia, Start date: 09/02/12 17:01:00, Duration: 30 day, Stop date: 10/02/12 18:00:00 IVP No Longer Active [facility] [place]2012 [facility] Maxipime + Sodium Chloride 0.9% IV 100 mL 1 gm, Route: IVPB, [id number], Dosing Weight 92.727, kg, Priority: STAT, Start date: 09/02/12 16:52:00, Duration: 30 day, Stop date: 10/01/12 16:52:00 IVPB No Longer Active [facility] [place]2012 [facility] Cipro 400 mg, 200 mL, Route: IVPB, Drug form: INJ, [id number], Dosing Weight 92.727, kg, Priority: STAT, Start date: 09/02/12 16:52:00, Duration: 30 day, Stop date: 10/02/12 4:52:00 IVPB No Longer Active [facility] [place] [facility] Saline Flush 0.9% 5 ml, Route: IVP, Drug Form: INJ, Dosing Weight 92.727, kg, PRN, PRN Line Flush, Start date: 09/02/12 16:52:00, Duration: 30 day, Stop date: 10/02/12 17:51:00 IVP No Longer Active [facility] [place] 09/02/2012 [facility] albuterol 0.083% inhalation solution 2.49 mg, Route: NEB, PRN, Dosing Weight 92.727, kg, PRN Respiratory Protocol, Start date: 09/02/12 16:52:00, Duration: 30 day, Stop date: 10/02/12 17:51:00 NEB No Longer Active [facility] [place] 09/02/2012 [facility] albuterol-ipratropium 2.5-0.5 mg inhalation solution 3 mL, Route: NEB, Drug Form: SOLN, Dosing Weight 92.727, kg, PRN, PRN Respiratory Protocol, Start date: 09/02/12 16:52:00, Duration: 30 day, Stop date: 10/02/12 17:51:00 NEB No Longer Active [facility] [place] 09/02/2012 [facility] ipratropium 0.5 mg, Route: NEB, PRN, Dosing Weight 92.727, kg, PRN Respiratory Protocol, Start date: 09/02/12 16:52:00, Duration: 30 day, Stop date: 10/02/12 17:51:00 NEB No Longer Active [facility] [place] 09/02/2012 [facility] NovoLog PenFill 100 units/mL subcutaneous solution sliding scale, SUB-Q, TID-Meals, 5 units for BS 80-120, 6 units for BS 121-150, 7.5 units for 150-200, 9 units for BS 201-250, 10 units for BS 250-300, 12.5 units for BS > 300, 3 ml, Substitution Allowed, SOLN5 units for BS 80-120, 6 units for BS 121-150, 7.5 units for 150-200, 9 units for BS 201-250, 10 units for BS 250- 300, 12.5 units for BS > 300 SUB-Q Active [facility] [place] 09/02/2012 [facility] Dextrose 50% Syringe 12.5 gm, 25 mL, Route: IVP, Drug Form: INJ, Dosing Weight 92.727, kg, PRN, PRN Blood Glucose Results, Start date: 09/02/12 16:51:00, Duration: 30 day, Stop date: 10/02/12 17:50:00 IVP No Longer Active [facility] [place] 09/02/2012 [facility] glucagon 1 mg, Route: IM, Drug form: PDR/INJ, PRN, Dosing Weight 92.727, kg, PRN Blood Glucose Results, Start date: 09/02/12 16:51:00, Duration: 30 day, Stop date: 10/02/12 17:50:00 IM No Longer Active [facility] [place] 09/02/2012 [facility] insulin aspart 2 unit, 0.02 mL, Route: SUB-Q, Drug form: SOLN, TID-Before Meals, Dosing Weight 92.727, kg, PRN Blood Glucose Results, Start date: 09/02/12 16:51:00, Duration: 30 day, Stop date: 10/02/12 16:50:00 SUB-Q No Longer Active [facility] [place] 09/02/2012 [facility] Levemir FlexPen 100 units/mL subcutaneous solution 25 unit, SUB-Q, Bedtime, if BS > 200, 3 ml, Substitution Allowed, SOLNif BS > 200 SUB-Q Active [facility] [place] 09/02/2012 [facility] Toprol-XL 50 mg oral tablet, extended release 50 mg, 1 tab, PO, QPM, 30 tab, Substitution Allowed, ERTAB PO Active [facility] [place] 09/02/2012 [facility] Cipro 400 mg, Route: IVPB, ONCE, Dosing Weight 92.727, kg, Priority: STAT, Start date: 09/02/12 13:13:00, Stop date: 09/02/12 13:13:[address] Longer [address] [facility] 09/02/2012 [facility] Maxipime 2 gm, Route: IVPB, ONCE, Dosing Weight 92.727, kg, Priority: STAT, Start date: 09/02/12 13:13:00, Stop date: 09/02/12 13:13:[address] Longer Active [facility] 09/02/2012 [facility] DuoNeb inhalation solution 3 ml, Route: INHALATION, Drug Form: SOLN, Dosing Weight 92.727, kg, PRN, PRN Respiratory Protocol, Start date: 09/02/12 12:52:00, Duration: 30 day, Stop date: 10/02/12 13:51:[address] Longer Active [facility] 09/02/2012 [facility] SoluMedrol 125 mg, Route: IVP, ONCE, Dosing Weight 92.727, kg, Priority: STAT, Start date: 09/02/12 12:52:00, Stop date: 09/02/12 12:52:[address] Longer [address] [facility] 09/02/2012 [facility] Zithromax 500 mg, Route: IVPB, ONCE, Dosing Weight 92.727, kg, Priority: STAT, Start date: 09/02/12 12:50:00, Stop date: 09/02/12 12:50:[address] Longer [address] [facility] 09/02/2012 [facility] Rocephin 1 g/ NS (NaCl 0.9%) 50 mL IV solution 1 gm, Route: IVPB, Drug form: PDR/INJ, ONCE, Dosing Weight 92.727, kg, Priority: STAT, Start date: 09/02/12 12:49:00, Stop date: 09/02/12 12:49:[address] Longer Active [facility] 09/02/2012 [facility] pantoprazole 40 mg, 1 tab, Route: PO, Drug form: ECTAB, Before Breakfast, Dosing Weight 95, kg, Priority: Routine, Start date: 06/27/12 7:30:00, Duration: 30 day, Stop date: 07/26/12 7:30:00 PO No Longer Active [facility] 06/27/2012 [facility] Levaquin 500 mg, 2 tab, Route: PO, Drug form: TAB, [id number], Dosing Weight 95, kg, Start date: 06/26/12 11:00:00, Duration: 30 day, Stop date: 07/25/12 11:00:00 PO No Longer Active [facility] 06/26/2012 [facility] Levaquin 500 mg oral tablet 500 mg, 1 tab, PO, [id number], 4 tab, Substitution Allowed, TAB PO Active [facility] 06/26/2012 [facility] Levemir 15 unit, 0.15 mL, Route: SUB-Q, Drug form: INJ, QPM, Dosing Weight 95, kg, Start date: 06/24/12 17:00:00, Duration: 30 day, Stop date: 07/23/12 17:00:00 SUB-Q No Longer Active [facility] 06/24/2012 [facility] glucagon 1 mg, Route: IM, Drug form: PDR/INJ, PRN, Dosing Weight 95, kg, PRN Abnormal Lab Result, Priority: STAT, Start date: 06/24/12 11:35:00, Duration: 30 day, Stop date: 07/24/12 11:34:00 IM No Longer Active [facility] 06/24/2012 [facility] insulin aspart 2 unit, 0.02 mL, Route: SUB-Q, Drug form: SOLN, Bedtime, Dosing Weight 95, kg, PRN Blood Glucose Results, Start date: 06/24/12 11:35:00, Duration: 30 day, Stop date: 07/24/12 11:34:00 [facility] Dextrose 50% Syringe 12.5 gm, 25 mL, Route: IVP, Drug Form: INJ, Dosing Weight 95, kg, PRN, PRN Blood Glucose Results, Start date: 06/24/12 11:35:00, Duration: 30 day, Stop date: 07/24/12 11:34:00 IVP No Longer Active [facility] 06/24/2012 [facility] docusate 100 mg, 1 cap, Route: PO, Drug form: CAP, BID, Dosing Weight 95, kg, Start date: 06/24/12 9:00:00, Duration: 30 day, Stop date: 07/23/12 17:00:00 PO No Longer Active [facility] 06/24/2012 [facility] Cycloset 3.2 mg, Route: PO, Drug form: TAB, After Breakfast, Dosing Weight 95, kg, Start date: 06/24/12 8:30:00, Duration: 30 day, Stop date: 07/23/12 8:30:00 [facility] Cycloset 3.2mg PO after breakfast-Use pt's home med Cycloset 3.2mg PO after breakfast-Use pt's home med, 3.2 mg, Drug form: MISC, Route: PO, After Breakfast, 06/24/12 8:30:00, Duration: 30 day, Stop date: 07/23/12 8:30:00 [facility] pantoprazole 40 mg, Route: IVP, Drug form: INJ, Before Breakfast, Dosing Weight 95, kg, Priority: Routine, Start date: 06/24/12 7:30:00, Duration: 30 day, Stop date: 07/23/12 7:30:00 IVP No Longer Active [facility] 06/24/2012 [facility] nitroglycerin 0.4 mg sublingual tablet 0.4 mg, 1 tab, Route: SL, Drug form: TAB, Q5Min, PRN Chest Pain, Start date: 06/24/12 0:03:00, Duration: 30 day, Stop date: 07/24/12 0:02:00 SL No Longer Active [facility] 06/24/2012 [facility] atropine 0.5 mg, 5 mL, Route: IVP, Drug form: INJ, PRN, PRN Bradycardia, Start date: 06/24/12 0:03:00, Duration: 30 day, Stop date: 07/24/12 0:02:00 IVP No Longer Active [facility] 06/24/2012 [facility] Rocephin + Sodium Chloride 0.9% IV 100 mL 1 gm, Route: IVPB, Drug form: PDR/INJ, Q24H, Dosing Weight 95, kg, Priority: Routine, Start date: 06/23/12 23:00:00, Duration: 30 day, Stop date: 07/22/12 23:00:00 [facility] normal saline 0.9% IV 1,000 mL 1,000 mL, Rate: 100 ml/hr, Infuse over: 10 hr, Route: IV, kg, Total Volume: 1,000, Start date: 06/23/12 22:20:00, Stop date: 06/24/12 23:31:00 IV No Longer Active [facility] 06/24/2012 [facility] acetaminophen 650 mg, 2 tab, Route: PO, Drug form: TAB, Q8H, Dosing Weight 95, kg, PRN Pain/Fever, Start date: 06/23/12 22:20:00, Duration: 30 day, Stop date: 07/23/12 22:19:00 PO No Longer Active [facility] 06/24/2012 [facility] ondansetron 4 mg, 2 mL, Route: IVP, Drug form: INJ, Q6H, Dosing Weight 95, kg, PRN Nausea & Vomiting, Start date: 06/23/12 22:20:00, Duration: 30 day, Stop date: 07/23/12 22:19:00 IVP No Longer Active [facility] 06/24/2012 [facility] Saline Flush 0.9% 5 ml, Route: IVP, Drug Form: INJ, Dosing Weight 95, kg, PRN, PRN Line Flush, Start date: 06/23/12 22:20:00, Duration: 30 day, Stop date: 07/23/12 22:19:00 IVP No Longer Active [facility] 06/24/2012 [facility] aspirin 81 mg tablet, chewable 81 mg, 1 tab, Route: PO, Drug form: CHEWTAB, Q24H, Dosing Weight 95, kg, Start date: 06/23/12 22:00:00, Duration: 30 day, Stop date: 07/22/12 22:00:00 PO No Longer Active [facility] 06/24/2012 [facility] Dextrose 50% Syringe 25 gm, 50 mL, Route: IVP, Drug Form: INJ, Dosing Weight 95, kg, PRN, PRN Blood Glucose Results, Start date: 06/23/12 21:35:00, Duration: 30 day, Stop date: 07/23/12 21:34:00 IVP No Longer Active [facility] 06/24/2012 [facility] glucagon 1 mg, Route: IM, Drug form: PDR/INJ, PRN, Dosing Weight 95, kg, PRN Blood Glucose Results, Start date: 06/23/12 21:35:00, Duration: 30 day, Stop date: 07/23/12 21:34:00 IM No Longer Active [facility] 06/24/2012 [facility] insulin aspart 1 unit, 0.01 mL, Route: SUB-Q, Drug form: SOLN, TID-Before Meals, Dosing Weight 95, kg, PRN Blood Glucose Results, Start date: 06/23/12 21:35:00, Duration: 30 day, Stop date: 07/23/12 21:34:00 SUB-Q No Longer Active [facility] 06/24/2012 [facility] chlorthalidone 25 mg oral tablet 12.5 mg, 0.5 tab, PO, Daily, Substitution Allowed PO Active 06/24/2012 [facility] Cycloset 0.8 mg oral tablet 3.2 mg, 4 tab, PO, After Breakfast, 2 hours after breakfast, Substitution Allowed2 hours after breakfast PO Active 06/24/2012 [facility] Calcium 600 +D oral tablet 1 tab, PO, Daily, Substitution Allowed, Maintenance PO Active 06/24/2012 [facility] metoprolol 50 mg oral tablet, extended release 50 mg, 1 tab, PO, BID, Substitution Allowed PO Active 06/24/2012 [facility] Cycloset Substitution Allowed No Longer Active 06/24/2012 [facility] Osteo Bi-Flex 1 tab, PO, Daily, Substitution Allowed, Maintenance PO Active 06/24/2012 [facility] Vitamin D3 1000 intl units oral capsule 1,000 IntlUnit, 1 cap, PO, Daily, 100 cap, Substitution Allowed, CAP PO Active 06/24/2012 [facility] aspirin 81 mg tablet, chewable 81 mg, 1 tab, PO, Daily, 30 tab, Substitution Allowed, CHEWTAB PO Active [facility]06/24/2012 [facility] Levemir FlexPen 15 unit, SUB-Q, Bedtime, Substitution Allowed SUB-Q Active 06/24/2012 [facility] Byetta 5 mcg/0.02 mL subcutaneous solution 5 microgram, 0.02 mL, SUB-Q, Daily, Substitution Allowed SUB-Q Active 06/24/2012 [facility] atorvastatin 10 mg oral tablet 10 mg, 1 tab, PO, QAM, 30 tab, Substitution Allowed, TAB PO Active 06/24/2012 [facility] amLODipine 5 mg oral tablet 5 mg, 1 tab, PO, BID, Substitution Allowed PO Active 06/24/2012 [facility] Diovan 320 mg oral tablet 320 mg, 1 tab, PO, Daily, 30 tab, Substitution Allowed, TAB PO Active 06/24/2012 [facility] metoprolol 50 mg oral tablet 50 mg, 1 tab, PO, BID, 180 tab, Substitution Allowed, TAB PO No Longer Active 06/24/2012 [facility] glimepiride 4 mg oral tablet 4 mg, 1 tab, PO, BID, Substitution Allowed PO Active 06/24/2012 [facility] ciprofloxacin 400 mg, Route: IVPB, ONCE, Dosing Weight 95, kg, Priority: STAT, Start date: 06/23/12 18:28:00, Stop date: 06/23/12 18:28:00 IVPB No Longer Active [facility] 06/24/2012 [facility] Sodium Chloride 0.9% IV 1,000 mL 1,000 mL, Rate: 100 ml/hr, Infuse over: 10 hr, Route: IV, kg, Total Volume: 1,000, Start date: 06/23/12 18:27:00, Duration: 30 day, Stop date: 07/23/12 18:26:00 IV No Longer Active [facility] 06/24/2012 [facility] Motrin 800 mg, Route: PO, Drug form: TAB, ONCE, Dosing Weight 95, kg, Priority: STAT, Start date: 06/23/12 17:28:00, Stop date: 06/23/12 17:28:00 PO No Longer Active [facility] 06/23/2012 [facility] Zofran ODT 4 mg oral tablet, disintegrating 4 mg, 1 tab, PO, BID, PRN, Dissolve tab under tongue, 10 tab, Nausea and Vomiting, Substitution AllowedDissolve tab under tongue PO On Hold [facility] 06/22/2012 [facility] Macrobid 100 mg oral capsule 100 mg, 1 cap, PO, BID, 14 cap, Substitution Allowed PO On Hold [facility] 06/22/2012 [facility] Sodium Chloride 0.9% (Bolus) IV 1,000 mL 1,000 mL, Rate: 1,000 ml/hr, Infuse over: 1 hr, Route: IV, Dosing Weight 95 kg, Total Volume: 1,000, Bolus dose, Priority: STAT, Start date: 06/22/12 9:07:00, Duration: 1 doses or times, Stop date: 06/22/12 10:06:00 IV No Longer Active [facility] 06/22/2012 [facility] Saline Flush 0.9% 5 mL, Route: IVP, Dosing Weight 95, kg, PRN, PRN Line Flush, Start date: 06/22/12 9:07:00, Duration: 24 hr, Stop date: 06/23/12 9:06:00 IVP No Longer Active [facility] 06/22/2012 [facility] ondansetron 4 mg, Route: IVP, ONCE, Dosing Weight 95, kg, Priority: STAT, Start date: 06/22/12 9:07:00, Stop date: 06/22/12 9:07:00 IVP No Longer Active [facility] 06/22/2012 [facility] Allergies, Adverse Reactions, Alerts Substance Category Reaction Severity Reaction type Status Date Reported Comments Source Immunizations Immunization Date Given Site Status Last Updated Comments Source influenza virus vaccine, inactivated<sup>1</sup> 09/03/2012 completed [facility] 1PATIENT STATES RECEIVED IN APRIL OF 2012 AT [facility] influenza virus vaccine, inactivated<sup>1</sup> 09/03/2012 completed [facility] Admin Note: PATIENT STATES RECEIVED IN APRIL OF 2012 AT [facility] influenza virus vaccine, inactivated<sup>1</sup> 09/03/2012 completed Cid Admin Note: PATIENT STATES RECEIVED IN APRIL OF 2012 AT [facility] influenza virus vaccine, inactivated<sup>1</sup> 09/03/2012 completed [facility] Admin Note: PATIENT STATES RECEIVED IN APRIL OF 2012 AT [facility], SARAH Ricketts, SARAH Hahn Results Order Name Results Value Reference Range Date Interpretation Comments Source CHEM PANEL Alk Phos 98 [iU]/d 39 - 117 12/03/2017 [facility] CHEM PANEL Bili Total 0.4 mg/dL 0.0 - 1.2 12/03/2017 [facility] CHEM PANEL ALANINE AMINOTRANSFERASE 15 [iU]/d 0 - 32 12/03/2017 [facility] CHEM PANEL ASPARTATE TRANSAMINASE 23 [iU]/d 0 - 40 12/03/2017 [facility] CHEM PANEL Chloride Lvl 107 mMol/L 96 - 106 12/03/2017 [facility] CHEM PANEL Potassium Lvl 5.0 mMol/L 3.5 - 5.2 12/03/2017 [facility] CHEM PANEL Sodium Lvl 143 mMol/L 134 - 144 12/03/2017 [facility] CHEM PANEL Total Protein 6.9 g/dL 6.0 - 8.5 12/03/2017 [facility] CHEM PANEL Calcium Lvl 10.0 mg/dL 8.7 - 10.3 12/03/2017 [facility] CHEM PANEL CO2 20 mMol/L 18 - 29 12/03/2017 [facility] CHEM PANEL B/C Ratio 21 12 - 28 12/03/2017 [facility] CHEM PANEL Creatinine Lvl 1.64 mg/dL 0.57 - 1.00 12/03/2017 [facility] CHEM PANEL BUN 35 mg/dL 8 - 27 12/03/2017 [facility] CHEM PANEL Glucose Lvl 173 mg/dL 65 - 99 12/03/2017 [facility] CHEM PANEL A/G Ratio 1.2 1.2 - 2.2 12/03/2017 [facility] CHEM PANEL Globulin 3.1 g/dL 1.5 - 4.5 12/03/2017 [facility] CHEM PANEL Albumin Lvl 3.8 g/dL 3.5 - 4.7 12/03/2017 [facility] HEMATOLOGY Immature Cells # 0.0 K/CMM 0.0 - 0.1 12/03/2017 [facility] HEMATOLOGY Immature Grans % 1 % Not Estab. % 12/03/2017 [facility] HEMATOLOGY Basophils # 0.0 K/CMM 0.0 - 0.2 12/03/2017 [facility] HEMATOLOGY Eosinophils # 0.1 K/CMM 0.0 - 0.4 12/03/2017 [facility] HEMATOLOGY Monocytes # 0.4 K/CMM 0.1 - 0.9 12/03/2017 [facility] HEMATOLOGY Eosinophils 2 % Not Estab. % 12/03/2017 [facility] HEMATOLOGY Monocytes 7 % Not Estab. % 12/03/2017 [facility] HEMATOLOGY Lymphocytes 32 % Not Estab. % 12/03/2017 [facility] HEMATOLOGY Segs 57 % Not Estab. % 12/03/2017 [facility] HEMATOLOGY Platelet 318 K/CMM 150 - 379 12/03/2017 [facility] HEMATOLOGY RDW 14.6 % 12.3 - 15.4 12/03/2017 [facility] HEMATOLOGY Lymphocytes # 1.8 K/CMM 0.7 - 3.1 12/03/2017 [facility] HEMATOLOGY Segs-Bands # 3.2 K/CMM 1.4 - 7.0 12/03/2017 [facility] HEMATOLOGY Basophils 1 % Not Estab. % 12/03/2017 [facility] HEMATOLOGY MCHC 31.9 g/dL 31.5 - 35.7 12/03/2017 [facility] HEMATOLOGY WBC X 10x3 5.6 K/CMM 3.4 - 10.8 12/03/2017 [facility] HEMATOLOGY MCH 30.3 pg 26.6 - 33.0 12/03/2017 [facility] HEMATOLOGY MCV 95 fL 79 - 97 12/03/2017 [facility] HEMATOLOGY Hct 40.1 % 34.0 - 46.6 12/03/2017 [facility] HEMATOLOGY Hgb 12.8 g/dL 11.1 - 15.9 12/03/2017 [facility] HEMATOLOGY RBC X 10x6 4.22 M/CMM 3.77 - 5.28 12/03/2017 [facility] SPECIAL CHEMISTRY Hgb A1C 8.0 % 4.8 - 5.6 12/03/2017 Result Comment: Pre-diabetes: 5.7 - 6.4 Diabetes: >6.4 Glycemic control for adults with diabetes: <7.0 [facility] Retroperitoneal Complete US Retroperitoneal Complete US EXAM: US RETROPERITONEAL COMPLETE DATE: 01/09/2017 11:02 AM CDT INDICATION: - R31.9 Hematuria, unspecified. Bladder infections with hematuria 2 weeks ago. ADDITIONAL INFORMATION: None. COMPARISON: CT scan of the abdomen and pelvis without contrast of 09/22/2015. TECHNIQUE: Multiplanar grayscale and color Doppler ultrasound images of the kidneys, aorta, IVC and urinary bladder. Note was made by the technologist that the patient had difficulty filling and retaining urine within the bladder. DISCUSSION: Right kidney Hydronephrosis: None. Size: 9.2 x 4.1 x 3.9 cm Echogenicity: Normal. Parenchymal thickness and contour: Normal. Calculi: None. Cysts: Within the mid cortex of the right kidney, there is an anechoic avascular thin-walled simple cyst measuring 1.5 x 1.4 x 1.3 cm. A second avascular anechoic thin-walled simple cyst is seen arising from the inferior cortex of the right kidney measuring 5.6 x 4.2 x 4.7 cm. This lesion is stable from the prior CT.. Masses: None. Left kidney Hydronephrosis: None. Size: 10.0 x 4.7 x 4.8 cm Echogenicity: Normal. Parenchymal thickness and contour: Normal. Calculi: None. Cysts: Within the mid lateral cortex of the left kidney, there is an anechoic avascular thin-walled simple cyst measuring 2.1 x 1.7 x 1.8 cm, slightly increased in size from the prior CT.. Masses: None. Abdominal aorta:There is no sonographic evidence of aneurysm or of dissection where visualized. IVC: Normal where visualized. Bladder: No wall thickening, masses, or calculi are seen. Normal ureteral jets are seen confirming bilateral ureteral patency. IMPRESSION: Simple cysts within the kidneys as described above. 01/09/2017 - - Read by: Hari Carrillo MD Dictated Date/time: 01/09/17 12:17 Electronically Signed by: Hari Carrillo MD 01/09/17 12:20 FINAL REPORT [facility] Chest 2 views DX Chest 2 views DX EXAM: XR CHEST 2 VIEWS DATE: 05/10/2016 at 1301 hours INDICATION: cough COMPARISON: 04/07/2016 at 0708 hours TECHNIQUE: PA and lateral chest radiographs FINDINGS: Lines, tubes and hardware: None. Airway: Patent. Lungs and pleura: No acute abnormality. Small scar is noted in the left lung base. Heart, mediastinum and alma: Normal. Bones: No acute abnormality. Soft tissues: Normal. Upper abdomen: Normal. IMPRESSION: 1. No cardiopulmonary abnormality. 05/10/2016 - - Read by: Ric Mancini MD Dictated Date/time: 05/10/16 13:47 Electronically Signed by: Ric Mancini MD 05/11/16 11:43 FINAL REPORT [facility] CHEM PANEL eGFR 42 mL/min/1.73m2 04/16/2016 Result Comment: The eGFR is calculated using the [...] from the National Kidney Disease Education Program (NKDEP) which additionally recommends that when the eGFR is used in patients with extremes of body mass index for purposes of drug dosing, the eGFR should be multiplied by the estimated BMI. [facility] CHEM PANEL Albumin Lvl 3.1 g/dL 3.5 - 5.0 04/16/2016 [facility] CHEM PANEL ALT 31 unit/L 0 - 65 04/16/2016 [facility] CHEM PANEL Total Protein 6.9 g/dL 6.4 - 8.4 04/16/2016 [facility] CHEM PANEL Bili Total 0.6 mg/dL 0.2 - 1.3 04/16/2016 [facility] CHEM PANEL Alk Phos 181 unit/L 39 - 136 04/16/2016 [facility] CHEM PANEL AST 28 unit/L 0 - 37 04/16/2016 [facility] CHEM PANEL Creatinine Lvl 1.20 mg/dL 0.50 - 1.40 04/16/2016 [facility] CHEM PANEL BUN 17 mg/dL 7 - 22 04/16/2016 [facility] CHEM PANEL Glucose Lvl 109 mg/dL 70 - 99 04/16/2016 [facility] CHEM PANEL Potassium Lvl 3.9 meq/L 3.5 - 5.1 04/16/2016 [facility] CHEM PANEL Sodium Lvl 144 meq/L 135 - 145 04/16/2016 [facility] CHEM PANEL Calcium Lvl 9.2 mg/dL 8.5 - 10.5 04/16/2016 [facility] CHEM PANEL CO2 26 meq/L 24 - 32 04/16/2016 [facility] CHEM PANEL Chloride Lvl 111 meq/L 95 - 109 04/16/2016 [facility] CHEM PANEL A/G Ratio 0.8 0.7 - 1.6 04/16/2016 [facility] CHEM PANEL Globulin 3.8 g/dL 2.7 - 4.2 04/16/2016 [facility] CHEM PANEL B/C Ratio 14 6 - 25 04/16/2016 [facility] CHEM PANEL AGAP 10.9 meq/L 10.0 - 20.0 04/16/2016 [facility] HEMATOLOGY MPV 8.0 fL 7.4 - 10.4 04/16/2016 [facility] HEMATOLOGY MCH 31.1 pg 27.0 - 31.0 04/16/2016 [facility] HEMATOLOGY MCV 92.3 fL 80.0 - 98.0 04/16/2016 [facility] HEMATOLOGY MCHC 33.6 g/dL 32.0 - 36.0 04/16/[address] [facility] RDW 14.1 % 11.5 - 14.5 04/16/[address] [facility] Platelet 383 K/CMM 133 - 450 04/16/[address] [facility] WBC 9.2 K/CMM 3.7 - 10.4 04/16/[address] [facility] Hct 35.7 % 36.0 - 48.0 04/16/[address] [facility] RBC 3.87 M/CMM 4.20 - 5.40 04/16/[address] [facility] Hgb 12.0 g/dL 12.0 - 16.0 04/16/[address] [facility] Basophils 0.7 % 0.0 - 1.0 04/16/[address] [facility] Segs-Bands # 6.8 K/CMM 1.5 - 8.1 04/16/[address] [facility] Eosinophils 2.9 % 0.0 - 4.0 04/16/[address] [facility] Monocytes 6.7 % 2.0 - 12.0 04/16/[address] [facility] Eosinophils # 0.3 K/CMM 0.0 - 0.5 04/16/[address] [facility] Monocytes # 0.6 K/CMM 0.0 - 0.8 04/16/[address] [facility] Lymphocytes # 1.5 K/CMM 1.0 - 5.5 04/16/[address] [facility] Basophils # 0.1 K/CMM 0.0 - 0.2 04/16/[address] [facility] Segs 73.5 % 45.0 - 75.0 04/16/[address] [facility] Lymphocytes 16.2 % 20.0 - 40.0 04/16/2016 [facility] CHEM PANEL eGFR 30 mL/min/1.73m2 04/09/2016 Result Comment: The eGFR is calculated using the [...] from the National Kidney Disease Education Program (NKDEP) which additionally recommends that when the eGFR is used in patients with extremes of body mass index for purposes of drug dosing, the eGFR should be multiplied by the estimated BMI. [facility] CHEM PANEL CO2 17 meq/L 24 - 32 04/09/2016 [facility] CHEM PANEL Chloride Lvl 115 meq/L 95 - 109 04/09/2016 [facility] CHEM PANEL Calcium Lvl 8.2 mg/dL 8.5 - 10.5 04/09/2016 [facility] CHEM PANEL AGAP 15.4 meq/L 10.0 - 20.0 04/09/2016 [facility] CHEM PANEL Glucose Lvl 135 mg/dL 70 - 99 04/09/2016 [facility] CHEM PANEL Potassium Lvl 4.4 meq/L 3.5 - 5.1 04/09/2016 [facility] CHEM PANEL Sodium Lvl 143 meq/L 135 - 145 04/09/2016 [facility] CHEM PANEL Creatinine Lvl 1.59 mg/dL 0.50 - 1.40 04/09/2016 [facility] CHEM PANEL BUN 42 mg/dL 7 - 22 04/09/2016 [facility] CHEM PANEL Magnesium Lvl 2.0 mg/dL 1.8 - 2.4 04/09/2016 [facility] CHEM PANEL Phosphorus 3.1 mg/dL 2.5 - 4.5 04/09/2016 [facility] HEMATOLOGY Segs 82.1 % 45.0 - 75.0 04/09/2016 [facility] HEMATOLOGY Lymphocytes 9.1 % 20.0 - 40.0 04/09/2016 [facility] HEMATOLOGY Monocytes 7.8 % 2.0 - 12.0 04/09/2016 [facility] HEMATOLOGY Monocytes # 0.8 K/CMM 0.0 - 0.8 04/09/2016 [facility] HEMATOLOGY Eosinophils # 0.1 K/CMM 0.0 - 0.5 04/09/2016 [facility] HEMATOLOGY Segs-Bands # 8.6 K/CMM 1.5 - 8.1 04/09/2016 [facility] HEMATOLOGY Lymphocytes # 1.0 K/CMM 1.0 - 5.5 04/09/2016 [facility] HEMATOLOGY Basophils 0.3 % 0.0 - 1.0 04/09/2016 [facility] HEMATOLOGY Eosinophils 0.7 % 0.0 - 4.0 04/09/2016 [facility] HEMATOLOGY RDW 14.2 % 11.5 - 14.5 04/09/2016 [facility] HEMATOLOGY Platelet 199 K/CMM 133 - 450 04/09/[address] [facility] MPV 9.1 fL 7.4 - 10.4 04/09/[address] [facility] MCHC 33.5 g/dL 32.0 - 36.0 04/09/[address] [facility] MCH 31.6 pg 27.0 - 31.0 04/09/[address] [facility] MCV 94.2 fL 80.0 - 98.0 04/09/[address] [facility] Hgb 11.0 g/dL 12.0 - 16.0 04/09/[address] [facility] RBC 3.50 M/CMM 4.20 - 5.40 04/09/[address] [facility] Hct 33.0 % 36.0 - 48.0 04/09/[address] [facility] WBC 10.5 K/CMM 3.7 - 10.4 04/09/2016 [facility] CHEM PANEL eGFR 21 mL/min/1.73m2 04/08/2016 Result Comment: The eGFR is calculated using the [...] from the National Kidney Disease Education Program (NKDEP) which additionally recommends that when the eGFR is used in patients with extremes of body mass index for purposes of drug dosing, the eGFR should be multiplied by the estimated BMI. [facility] CHEM PANEL BUN 54 mg/dL 7 - 22 04/08/2016 [facility] CHEM PANEL Creatinine Lvl 2.16 mg/dL 0.50 - 1.40 04/08/2016 [facility] CHEM PANEL Sodium Lvl 140 meq/L 135 - 145 04/08/2016 [facility] CHEM PANEL Glucose Lvl 195 mg/dL 70 - 99 04/08/2016 [facility] CHEM PANEL Chloride Lvl 111 meq/L 95 - 109 04/08/2016 [facility] CHEM PANEL Potassium Lvl 4.6 meq/L 3.5 - 5.1 04/08/2016 [facility] CHEM PANEL CO2 19 meq/L 24 - 32 04/08/2016 [facility] CHEM PANEL Calcium Lvl 8.2 mg/dL 8.5 - 10.5 04/08/2016 [facility] CHEM PANEL AGAP 14.6 meq/L 10.0 - 20.0 04/08/2016 [facility] CHEM PANEL Magnesium Lvl 2.0 mg/dL 1.8 - 2.4 04/08/2016 [facility] CHEM PANEL Phosphorus 3.5 mg/dL 2.5 - 4.5 04/08/2016 [facility] HEMATOLOGY MCHC 31.9 g/dL 32.0 - 36.0 04/08/2016 [facility] HEMATOLOGY RDW 13.9 % 11.5 - 14.5 04/08/2016 [facility] HEMATOLOGY MPV 9.1 fL 7.4 - 10.4 04/08/2016 [facility] HEMATOLOGY Platelet 205 K/CMM 133 - 450 04/08/2016 [facility] HEMATOLOGY RBC 3.79 M/CMM 4.20 - 5.40 04/08/2016 [facility] HEMATOLOGY Hgb 11.5 g/dL 12.0 - 16.0 04/08/2016 [facility] HEMATOLOGY WBC 15.8 K/CMM 3.7 - 10.4 04/08/2016 [facility] HEMATOLOGY MCH 30.3 pg 27.0 - 31.0 04/08/2016 [facility] HEMATOLOGY MCV 94.9 fL 80.0 - 98.0 04/08/2016 [facility] HEMATOLOGY Hct 35.9 % 36.0 - 48.0 04/08/2016 [facility] HEMATOLOGY Basophils # 0.1 K/CMM 0.0 - 0.2 04/08/2016 [facility] HEMATOLOGY Eosinophils # 0.2 K/CMM 0.0 - 0.5 04/08/2016 [facility] HEMATOLOGY Monocytes # 1.2 K/CMM 0.0 - 0.8 04/08/2016 [facility] HEMATOLOGY Lymphocytes 11.6 % 20.0 - 40.0 04/08/2016 [facility] HEMATOLOGY Segs 79.2 % 45.0 - 75.0 04/08/2016 [facility] HEMATOLOGY Lymphocytes # 1.8 K/CMM 1.0 - 5.5 04/08/2016 [facility] HEMATOLOGY Monocytes 7.6 % 2.0 - 12.0 04/08/2016 [facility] HEMATOLOGY Eosinophils 1.1 % 0.0 - 4.0 04/08/2016 [facility] HEMATOLOGY Basophils 0.5 % 0.0 - 1.0 04/08/2016 [facility] HEMATOLOGY Segs-Bands # 12.5 K/CMM 1.5 - 8.1 04/08/2016 [facility] CHEM PANEL eGFR 25 mL/min/1.73m2 04/07/2016 Result Comment: The eGFR is calculated using the [...] from the National Kidney Disease Education Program (NKDEP) which additionally recommends that when the eGFR is used in patients with extremes of body mass index for purposes of drug dosing, the eGFR should be multiplied by the estimated BMI. [facility] CHEM PANEL Creatinine Lvl 1.88 mg/dL 0.50 - 1.40 04/07/2016 [facility] HEMATOLOGY Platelet 211 K/CMM 133 - 450 04/07/2016 [facility] URINE AND STOOL UA Glucose 100 mg/dL Negative mg/dL 04/07/2016 [facility] URINE AND STOOL UA Turbidity Slight Cloudy (04/07/16 7:09 AM) Clear 04/07/2016 [facility] URINE AND STOOL UA Protein 100 mg/dL Negative mg/dL 04/07/2016 [facility] URINE AND STOOL UA Spec Grav 1.020 <=1.030 04/07/2016 [facility] URINE AND STOOL UA pH 6.0 5.0 - 8.0 04/07/2016 [facility] URINE AND STOOL UA Blood Large *ABN* (04/07/16 7:09 AM) Negative 04/07/2016 [facility] URINE AND STOOL UA Urobilinogen 0.2 EU/dL 0.1 - 1.0 04/07/2016 [facility] URINE AND STOOL UA Bili Negative *NA* (04/07/16 7:09 AM) Negative 04/07/2016 [facility] URINE AND STOOL UA Nitrite Positive *ABN* (04/07/16 7:09 AM) Negative 04/07/2016 [facility] URINE AND STOOL UA Ketones Negative *NA* (04/07/16 7:09 AM) Negative 04/07/2016 [facility] URINE AND STOOL UA Leuk Est Large *ABN* (04/07/16 7:09 AM) Negative 04/07/2016 [facility] URINE AND STOOL UA Color Yellow *NA* (04/07/16 7:09 AM) Yellow 04/07/2016 [facility] URINE AND STOOL UA Sq Epi Occasional /LPF Few /LPF 04/07/2016 [facility] URINE AND STOOL UA WBC >100 /HPF 0 - 5 04/07/2016 [facility] URINE AND STOOL UA Bacteria Many /HPF None Seen /HPF 04/07/2016 [facility] URINE AND STOOL UA RBC 21-50 /HPF 0 - 2 04/07/2016 [facility] CARDIAC ENZYMES Troponin-I null 0.00 - 0.40 04/07/2016 [facility] CARDIAC ENZYMES Total CK 91 unit/L 12 - 191 04/07/2016 [facility] CHEM PANEL Lactic Acid Lvl 1.9 mMol/L 0.5 - 2.2 04/07/2016 [facility] HEMATOLOGY PTT 25.2 s 22.9 - 35.8 04/07/2016 [facility] HEMATOLOGY PT 13.6 s 12.0 - 14.7 04/07/2016 [facility] HEMATOLOGY INR 1.01 0.85 - 1.17 04/07/2016 [facility] HEMATOLOGY Segs-Bands # 3.2 K/CMM 1.5 - 8.1 04/07/2016 [facility] HEMATOLOGY Eosinophils 0.4 % 0.0 - 4.0 04/07/2016 [facility] HEMATOLOGY Basophils 0.3 % 0.0 - 1.0 04/07/2016 [facility] HEMATOLOGY Lymphocytes # 0.4 K/CMM 1.0 - 5.5 04/07/2016 [facility] HEMATOLOGY Lymphocytes 10.7 % 20.0 - 40.0 04/07/2016 [facility] HEMATOLOGY Monocytes 0.7 % 2.0 - 12.0 04/07/2016 [facility] HEMATOLOGY Segs 87.9 % 45.0 - 75.0 04/07/2016 [facility] HEMATOLOGY MPV 8.5 fL 7.4 - 10.4 04/07/2016 [facility] HEMATOLOGY RDW 14.0 % 11.5 - 14.5 04/07/2016 [facility] HEMATOLOGY MCH 30.4 pg 27.0 - 31.0 04/07/2016 [facility] HEMATOLOGY MCHC 32.4 g/dL 32.0 - 36.0 04/07/2016 [facility] HEMATOLOGY MCV 93.8 fL 80.0 - 98.0 04/07/2016 [facility] HEMATOLOGY RBC 4.00 M/CMM 4.20 - 5.40 04/07/2016 [facility] HEMATOLOGY Hgb 12.1 g/dL 12.0 - 16.0 04/07/2016 [facility] HEMATOLOGY WBC 3.6 K/CMM 3.7 - 10.4 04/07/2016 [facility] HEMATOLOGY Hct 37.5 % 36.0 - 48.0 04/07/2016 [facility] CHEM PANEL Procalcitonin Lvl 0.35 ng/mL 0.00 - 0.10 04/07/2016 [facility] CHEM PANEL Alk Phos 142 unit/L 39 - 136 04/07/2016 [facility] CHEM PANEL Bili Total 1.0 mg/dL 0.2 - 1.3 04/07/2016 [facility] CHEM PANEL Globulin 3.6 g/dL 2.7 - 4.2 04/07/2016 [facility] CHEM PANEL ALT 48 unit/L 0 - 65 04/07/2016 [facility] CHEM PANEL A/G Ratio 0.9 0.7 - 1.6 04/07/2016 [facility] CHEM PANEL AST 56 unit/L 0 - 37 04/07/2016 [facility] CHEM PANEL Albumin Lvl 3.3 g/dL 3.5 - 5.0 04/07/2016 [facility] CHEM PANEL Calcium Lvl 9.0 mg/dL 8.5 - 10.5 04/07/2016 [facility] CHEM PANEL AGAP 9.3 meq/L 10.0 - 20.0 04/07/2016 [facility] CHEM PANEL Total Protein 6.9 g/dL 6.4 - 8.4 04/07/2016 [facility] CHEM PANEL B/C Ratio 25 6 - 25 04/07/2016 [facility] CHEM PANEL CO2 24 meq/L 24 - 32 04/07/2016 [facility] CHEM PANEL Chloride Lvl 110 meq/L 95 - 109 04/07/2016 [facility] CHEM PANEL Sodium Lvl 139 meq/L 135 - 145 04/07/2016 [facility] CHEM PANEL Potassium Lvl 4.3 meq/L 3.5 - 5.1 04/07/2016 [facility] CHEM PANEL BUN 45 mg/dL 7 - 22 04/07/2016 [facility] CHEM PANEL Glucose Lvl 117 mg/dL 70 - 99 04/07/2016 [facility] Chest 1view DX Chest 1view DX Chest 1view DX 80 years old Female Clinical Indication: Fever; Comparison: 04/06/2016 FINDINGS: Tubes and lines: None. LUNGS: The volume of the lungs is normal for this lordotic projection. There is no evidence of consolidation. No pleural effusion is noted. The pulmonary vasculature is within normal limits. MEDIASTINUM: Cardiac silhouette is within normal limits of size. CHEST WALL: Unremarkable. SKELETON: The visualized osseous structures are unremarkable. IMPRESSION: 1. No radiographic evidence of acute cardiopulmonary disease. SL: [id number] 04/07/2016 - - Read by: Stanislav Hutchison MD Dictated Date/time: 04/07/16 07:21 Electronically Signed by: Stanislav Hutchison MD 04/07/16 07:22 FINAL REPORT [facility] CHEM PANEL Calcium Lvl 9.7 mg/dL 8.5 - 10.5 04/06/2016 [facility] CHEM PANEL eGFR 26 mL/min/1.73m2 04/06/2016 Result Comment: The eGFR is calculated using the [...] from the National Kidney Disease Education Program (NKDEP) which additionally recommends that when the eGFR is used in patients with extremes of body mass index for purposes of drug dosing, the eGFR should be multiplied by the estimated BMI. [facility] CHEM PANEL Glucose Lvl 189 mg/dL 70 - 99 04/06/2016 [facility] CHEM PANEL Creatinine Lvl 1.77 mg/dL 0.50 - 1.40 04/06/2016 [facility] CHEM PANEL BUN 47 mg/dL 7 - 22 04/06/2016 [facility] CHEM PANEL AGAP 15.1 meq/L 10.0 - 20.0 04/06/2016 [facility] CHEM PANEL Chloride Lvl 112 meq/L 95 - 109 04/06/2016 [facility] CHEM PANEL Potassium Lvl 5.1 meq/L 3.5 - 5.1 04/06/2016 [facility] CHEM PANEL CO2 18 meq/L 24 - 32 04/06/2016 [facility] CHEM PANEL Sodium Lvl 140 meq/L 135 - 145 04/06/2016 [facility] CARDIAC ENZYMES Total CK 103 unit/L 12 - 191 04/06/2016 [facility] CARDIAC ENZYMES CK MB 1.2 ng/mL 0.5 - 3.6 04/06/2016 [facility] CARDIAC ENZYMES Troponin-I null 0.00 - 0.40 04/06/2016 [facility] CARDIAC ENZYMES CK MB Index 1.2 0.0 - 2.5 04/06/2016 [facility] CHEM PANEL eGFR 26 mL/min/1.73m2 04/06/2016 Result Comment: The eGFR is calculated using the [...] from the National Kidney Disease Education Program (NKDEP) which additionally recommends that when the eGFR is used in patients with extremes of body mass index for purposes of drug dosing, the eGFR should be multiplied by the estimated BMI. [facility] CHEM PANEL Glucose Lvl 122 mg/dL 70 - 99 04/06/2016 [facility] CHEM PANEL AST 37 unit/L 0 - 37 04/06/2016 [facility] CHEM PANEL Albumin Lvl 3.6 g/dL 3.5 - 5.0 04/06/2016 [facility] CHEM PANEL ALT 31 unit/L 0 - 65 04/06/2016 [facility] CHEM PANEL Calcium Lvl 9.4 mg/dL 8.5 - 10.5 04/06/2016 [facility] CHEM PANEL Total Protein 7.5 g/dL 6.4 - 8.4 04/06/2016 [facility] CHEM PANEL CO2 18 meq/L 24 - 32 04/06/2016 [facility] CHEM PANEL Creatinine Lvl 1.80 mg/dL 0.50 - 1.40 04/06/2016 [facility] CHEM PANEL Chloride Lvl 111 meq/L 95 - 109 04/06/2016 [facility] CHEM PANEL Sodium Lvl 139 meq/L 135 - 145 04/06/2016 [facility] CHEM PANEL Potassium Lvl 5.8 meq/L 3.5 - 5.1 04/06/2016 Result Comment: Specimen is moderately hemolyzed. 04/06/2016 14:35 [facility] CHEM PANEL BUN 50 mg/dL 7 - 22 04/06/2016 [facility] CHEM PANEL B/C Ratio 28 6 - 25 04/06/2016 [facility] CHEM PANEL Globulin 3.9 g/dL 2.7 - 4.2 04/06/2016 [facility] CHEM PANEL A/G Ratio 0.9 0.7 - 1.6 04/06/2016 [facility] CHEM PANEL Bili Total 0.6 mg/dL 0.2 - 1.3 04/06/2016 [facility] CHEM PANEL AGAP 15.8 meq/L 10.0 - 20.0 04/06/2016 [facility] CHEM PANEL Alk Phos 136 unit/L 39 - 136 04/06/2016 [facility] HEMATOLOGY PTT See Note 1 (04/06/16 2:21 PM) 22.9 - 35.8 04/06/2016 Result Comment: The PTT result of 19.4 should be interpreted with caution due to : CLOTTED SAMPLE. Report and correction called to Glenroy Fonseac by Yehuda Smiley at 04/06/2016 14:56. Recollection is recommended. Read Back Ok. [facility] HEMATOLOGY WBC 20.1 K/CMM 3.7 - 10.4 04/06/[address] [facility] MCV 94.9 fL 80.0 - 98.0 04/06/[address] [facility] MCH 30.9 pg 27.0 - 31.0 04/06/[address] [facility] MCHC 32.6 g/dL 32.0 - 36.0 04/06/2016 [facility] HEMATOLOGY RBC 4.29 M/CMM 4.20 - 5.40 04/06/2016 [facility] HEMATOLOGY Hgb 13.3 g/dL 12.0 - 16.0 04/06/2016 [facility] HEMATOLOGY Hct 40.7 % 36.0 - 48.0 04/06/2016 [facility] HEMATOLOGY RDW 14.5 % 11.5 - 14.5 04/06/[address] [facility] Platelet 293 K/CMM 133 - 450 04/06/[address] [facility] MPV 9.1 fL 7.4 - 10.4 04/06/[address] [facility] Eosinophils 0.9 % 0.0 - 4.0 04/06/[address] [facility] Monocytes 7.7 % 2.0 - 12.0 04/06/[address] [facility] Basophils # 0.1 K/CMM 0.0 - 0.2 04/06/[address] [facility] Eosinophils # 0.2 K/CMM 0.0 - 0.5 04/06/[address] [facility] Monocytes # 1.5 K/CMM 0.0 - 0.8 04/06/[address] [facility] Lymphocytes # 2.1 K/CMM 1.0 - 5.5 04/06/[address] [facility] Basophils 0.4 % 0.0 - 1.0 04/06/[address] [facility] Segs-Bands # 16.2 K/CMM 1.5 - 8.1 04/06/[address] [facility] Lymphocytes 10.4 % 20.0 - 40.0 04/06/[address] [facility] Plt Morph Normal (04/06/16 2:21 PM) 04/06/[address] [facility] RBC Morph Normal (04/06/16 2:21 PM) 04/06/[address] [facility] Segs 80.6 % 45.0 - 75.0 04/06/2016 [facility] Chest 1view DX Chest 1view DX Patient Name: GEOVANI ANDERSEN : 1935; Age: 80 years y/o Female MR: [id number] Study: Chest 1view DX dated 04/06/2016 Clinical Indication: Chest pain; Comparison: 03/16/2016 Cardiac and mediastinal structures are stable including tortuous thoracic aorta that contains calcification. Slight atelectasis in the left lung base laterally. No other focal infiltrates within the lungs, no edema and no pneumothorax. SL: [id number] 04/06/2016 - - Read by: Ermias Barcenas MD Dictated Date/time: 04/06/16 13:57 Electronically Signed by: Ermias Barcenas MD 04/06/16 13:58 FINAL REPORT [facility] Chest 2 views DX Chest 2 views DX EXAM: 2 view(s) of the chest. INDICATION: Hypoxemia. COMPARISON: Chest x-ray: 10/01/2015. FINDINGS: Support apparatus: None. Cardiac silhouette: Unremarkable. [place]: Unremarkable. Lobar consolidation: Negative. Pleural effusion: Negative. Pneumothorax: Negative. Other: Negative. Bones: Unremarkable. Other: None. IMPRESSION: 1. No acute cardiopulmonary process. 03/16/2016 - - Read by: Parveen Lira MD Dictated Date/time: 03/16/16 11:52 Electronically Signed by: Parveen Lira MD 03/16/16 13:19 FINAL REPORT [facility] URINE AND STOOL UA Color Ltyellow 10/01/2015 [facility] URINE AND STOOL UA Urobilinogen <=1.0 mg/dL 0.1 - 1.0 10/01/2015 [facility] URINE AND STOOL UA RBC 7 /HPF 0 - 2 10/01/2015 [facility] URINE AND STOOL UA Blood Small *ABN* (10/01/15 9:38 AM) Negative 10/01/2015 [facility] URINE AND STOOL UA Nitrite Negative (10/01/15 9:38 AM) Negative 10/01/2015 [facility] URINE AND STOOL UA Leuk Est Moderate *ABN* (10/01/15 9:38 AM) Negative 10/01/2015 [facility] URINE AND STOOL UA Sq Epi Occasional /LPF Few /LPF 10/01/2015 [facility] URINE AND STOOL UA WBC 18 /HPF 0 - 5 10/01/2015 [facility] URINE AND STOOL UA Protein Negative mg/dL Negative mg/dL 10/01/2015 [facility] URINE AND STOOL UA Glucose 500 mg/dL Negative mg/dL 10/01/2015 [facility] URINE AND STOOL UA Bili Negative *NA* (10/01/15 9:38 AM) Negative 10/01/2015 [facility] URINE AND STOOL UA Ketones Negative mg/dL Negative mg/dL 10/01/2015 [facility] URINE AND STOOL UA Turbidity Clear (10/01/15 9:38 AM) Clear 10/01/2015 [facility] URINE AND STOOL UA pH 5.0 5.0 - 8.0 10/01/2015 [facility] URINE AND STOOL UA Spec Grav 1.014 <=1.030 10/01/2015 [facility] URINE AND STOOL UA Bacteria Occasional /HPF None Seen /HPF 10/01/2015 [facility] CARDIAC ENZYMES Troponin-I null 0.00 - 0.40 10/01/2015 [facility] CARDIAC ENZYMES Total CK 51 unit/L 12 - 191 10/01/2015 [facility] CARDIAC ENZYMES CK MB 0.8 ng/mL 0.5 - 3.6 10/01/2015 [facility] CARDIAC ENZYMES CK MB Index 1.6 0.0 - 2.5 10/01/2015 [facility] CHEM PANEL A/G Ratio 0.9 0.7 - 1.6 10/01/2015 [facility] CHEM PANEL Globulin 3.5 g/dL 2.0 - 4.0 10/01/2015 [facility] CHEM PANEL eGFR 47 mL/min/1.73m2 10/01/2015 Result Comment: The eGFR is calculated using the [...] from the National Kidney Disease Education Program (NKDEP) which additionally recommends that when the eGFR is used in patients with extremes of body mass index for purposes of drug dosing, the eGFR should be multiplied by the estimated BMI. [facility] CHEM PANEL CO2 25 meq/L 24 - 32 10/01/2015 [facility] CHEM PANEL Chloride Lvl 108 meq/L 95 - 109 10/01/2015 [facility] CHEM PANEL Sodium Lvl 141 meq/L 135 - 145 10/01/2015 [facility] CHEM PANEL Potassium Lvl 4.0 meq/L 3.5 - 5.1 10/01/2015 [facility] CHEM PANEL AST 29 unit/L 0 - 37 10/01/2015 [facility] CHEM PANEL AGAP 12.0 meq/L 10.0 - 20.0 10/01/2015 [facility] CHEM PANEL B/C Ratio 22 6 - 25 10/01/2015 [facility] CHEM PANEL Alk Phos 151 unit/L 39 - 136 10/01/2015 [facility] CHEM PANEL Bili Total 0.5 mg/dL 0.2 - 1.3 10/01/2015 [facility] CHEM PANEL Albumin Lvl 3.3 g/dL 3.5 - 5.0 10/01/2015 [facility] CHEM PANEL Total Protein 6.8 g/dL 6.4 - 8.4 10/01/2015 [facility] CHEM PANEL ALT 38 unit/L 0 - 65 10/01/2015 [facility] CHEM PANEL BUN 24 mg/dL 7 - 22 10/01/2015 [facility] CHEM PANEL Creatinine Lvl 1.10 mg/dL 0.50 - 1.40 10/01/2015 [facility] CHEM PANEL Glucose Lvl 120 mg/dL 70 - 99 10/01/2015 [facility] CHEM PANEL Calcium Lvl 9.3 mg/dL 8.5 - 10.5 10/01/2015 [facility] HEMATOLOGY MCV 91.7 fL 80.0 - 98.0 10/01/2015 [facility] HEMATOLOGY MCH 29.9 pg 27.0 - 31.0 10/01/2015 [facility] HEMATOLOGY Hct 40.1 % 36.0 - 48.0 10/01/2015 [facility] HEMATOLOGY RDW 15.0 % 11.5 - 14.5 10/01/2015 [facility] HEMATOLOGY Platelet 288 K/CMM 133 - 450 10/01/[address] [facility] MCHC 32.7 g/dL 32.0 - 36.0 10/01/[address] [facility] MPV 7.9 fL 7.4 - 10.4 10/01/[address] [facility] RBC 4.37 M/CMM 4.20 - 5.40 10/01/[address] [facility] WBC 7.5 K/CMM 3.7 - 10.4 10/01/[address] [facility] Hgb 13.1 g/dL 12.0 - 16.0 10/01/[address] [facility] Basophils # 0.1 K/CMM 0.0 - 0.2 10/01/2015 [facility] HEMATOLOGY Monocytes 7.1 % 2.0 - 12.0 10/01/2015 [facility] HEMATOLOGY Lymphocytes 28.3 % 20.0 - 40.0 10/01/2015 [facility] HEMATOLOGY Basophils 0.7 % 0.0 - 1.0 10/01/2015 [facility] HEMATOLOGY Eosinophils 3.6 % 0.0 - 4.0 10/01/2015 [facility] HEMATOLOGY Segs 60.3 % 45.0 - 75.0 10/01/2015 [facility] HEMATOLOGY Lymphocytes # 2.1 K/CMM 1.0 - 5.5 10/01/2015 [facility] HEMATOLOGY Eosinophils # 0.3 K/CMM 0.0 - 0.5 10/01/2015 [facility] HEMATOLOGY Segs-Bands # 4.5 K/CMM 1.5 - 8.1 10/01/2015 [facility] HEMATOLOGY Monocytes # 0.5 K/CMM 0.0 - 0.8 10/01/2015 [facility] Brain wo contrast CT Brain wo contrast CT Patient Name: GEOVANI ANDERSEN : 1935; Age: 80 years y/o Female MR: [id number] * CRANIAL CT without contrast History:Generalized Weakness; Comparison: None TECHNIQUE: CT images were obtained from the foramen magnum to the vertex without the use of intravenous contrast on a multidetector CT. Coronal and sagittal reconstructions were obtained. CT radiation dose DLP: 1434.16 mGy-cm FINDINGS: There is minimal, age-appropriate atrophy. There is otherwise normal appearance of the ventricular system and extraventricular CSF spaces. There is no evidence of mass, midline shift, hemorrhage, extra-axial fluid collection, or acute infarction. The calvarium is intact. The visualized paranasal sinuses and the mastoids are clear. IMPRESSION: 1. No evidence of an acute intracranial process. SL: [id number] 10/01/2015 - - Read by: Nawaf Scott MD Dictated Date/time: 10/01/15 11:26 Electronically Signed by: Nawaf Scott MD 10/01/15 11:30 FINAL REPORT [facility] Chest 1view DX Chest 1view DX CHEST RADIOGRAPH SINGLE VIEW INDICATION: Chest pain COMPARISON: Chest radiograph 09/22/2015 IMPRESSION: The lungs are underinflated. Grossly, no acute intrathoracic abnormalities are visualized. SL:16 10/01/2015 - - Read by: Corey Ramirez MD Dictated Date/time: 10/01/15 09:30 Electronically Signed by: Corey Ramirez MD 10/01/15 09:30 FINAL REPORT [facility] URINE AND STOOL UA Sq Epi Occasional /LPF Few /LPF 09/22/2015 [facility] URINE AND STOOL UA WBC 9 /HPF 0 - 5 09/22/2015 [facility] URINE AND STOOL UA RBC 35 /HPF 0 - 2 09/22/2015 [facility] URINE AND STOOL UA Nitrite Negative (09/22/15 9:21 AM) Negative 09/22/2015 [facility] URINE AND STOOL UA Leuk Est Small *ABN* (09/22/15 9:21 AM) Negative 09/22/2015 [facility] URINE AND STOOL UA Blood Moderate *ABN* (09/22/15 9:21 AM) Negative 09/22/2015 [facility] URINE AND STOOL UA Urobilinogen <=1.0 mg/dL 0.1 - 1.0 09/22/2015 [facility] URINE AND STOOL UA Bili Negative *NA* (09/22/15 9:21 AM) Negative 09/22/2015 [facility] URINE AND STOOL UA Ketones Negative mg/dL Negative mg/dL 09/22/2015 [facility] URINE AND STOOL UA Protein Negative mg/dL Negative mg/dL 09/22/2015 [facility] URINE AND STOOL UA pH 5.0 5.0 - 8.0 09/22/2015 [facility] URINE AND STOOL UA Glucose 500 mg/dL Negative mg/dL 09/22/2015 [facility] URINE AND STOOL UA Turbidity Slight *ABN* (09/22/15 9:21 AM) Clear 09/22/2015 [facility] URINE AND STOOL UA Spec Grav 1.018 <=1.030 09/22/2015 [facility] URINE AND STOOL UA Color Yellow *NA* (09/22/15 9:21 AM) Yellow 09/22/2015 [facility] CHEM PANEL Phosphorus 2.5 mg/dL 2.5 - 4.5 09/22/2015 [facility] CHEM PANEL Magnesium Lvl 2.3 mg/dL 1.8 - 2.4 09/22/2015 [facility] CHEM PANEL Alk Phos 122 unit/L 39 - 136 09/22/2015 [facility] CHEM PANEL Sodium Lvl 137 meq/L 135 - 145 09/22/2015 [facility] CHEM PANEL Potassium Lvl 4.7 meq/L 3.5 - 5.1 09/22/2015 [facility] CHEM PANEL Calcium Lvl 8.6 mg/dL 8.5 - 10.5 09/22/2015 [facility] CHEM PANEL CO2 25 meq/L 24 - 32 09/22/2015 [facility] CHEM PANEL Albumin Lvl 3.1 g/dL 3.5 - 5.0 09/22/2015 [facility] CHEM PANEL Total Protein 6.4 g/dL 6.4 - 8.4 09/22/2015 [facility] CHEM PANEL AST 32 unit/L 0 - 37 09/22/2015 [facility] CHEM PANEL ALT 44 unit/L 0 - 65 09/22/2015 [facility] CHEM PANEL Glucose Lvl 195 mg/dL 70 - 99 09/22/2015 [facility] CHEM PANEL Creatinine Lvl 1.31 mg/dL 0.50 - 1.40 09/22/2015 [facility] CHEM PANEL Chloride Lvl 108 meq/L 95 - 109 09/22/2015 [facility] CHEM PANEL BUN 41 mg/dL 7 - 22 09/22/2015 [facility] CHEM PANEL eGFR 38 mL/min/1.73m2 09/22/2015 Result Comment: The eGFR is calculated using the [...] from the [employer] Kid[employer] Education Program (NKDEP) which additionally recommends that when the eGFR is used in patients with extremes of body mass index for purposes of drug dosing, the eGFR should be multiplied by the estimated BMI. [facility] CHEM PANEL Bili Total 0.6 mg/dL 0.2 - 1.3 09/22/2015 [facility] CHEM PANEL Globulin 3.3 g/dL 2.0 - 4.0 09/22/2015 [facility] CHEM PANEL A/G Ratio 0.9 0.7 - 1.6 09/22/2015 [facility] CHEM PANEL AGAP 8.7 meq/L 10.0 - 20.0 09/22/2015 [facility] CHEM PANEL B/C Ratio 31 6 - 25 09/22/2015 [facility] HEMATOLOGY Monocytes # 0.4 K/CMM 0.0 - 0.8 09/22/2015 [facility] HEMATOLOGY Monocytes 4.0 % 2.0 - 12.0 09/22/2015 [facility] HEMATOLOGY Basophils 0.3 % 0.0 - 1.0 09/22/2015 [facility] HEMATOLOGY Eosinophils 0.2 % 0.0 - 4.0 09/22/2015 [facility] HEMATOLOGY Segs-Bands # 8.2 K/CMM 1.5 - 8.1 09/22/[address] [facility] Lymphocytes # 0.5 K/CMM 1.0 - 5.5 09/22/[address] [facility] Lymphocytes 5.8 % 20.0 - 40.0 09/22/[address] [facility] Segs 89.7 % 45.0 - 75.0 09/22/[address] [facility] PTT 32.2 s 22.9 - 35.8 09/22/[address] [facility] PT 14.6 s 12.0 - 14.7 09/22/[address] [facility] INR 1.11 0.85 - 1.17 09/22/[address] [facility] Platelet 211 K/CMM 133 - 450 09/22/[address] [facility] MPV 8.5 fL 7.4 - 10.4 09/22/[address] [facility] MCHC 32.8 g/dL 32.0 - 36.0 09/22/[address] [facility] RDW 14.8 % 11.5 - 14.5 09/22/[address] [facility] RBC 4.80 M/CMM 4.20 - 5.40 09/22/[address] [facility] Hgb 14.4 g/dL 12.0 - 16.0 09/22/[address] [facility] WBC 9.1 K/CMM 3.7 - 10.4 09/22/[address] [facility] MCV 91.7 fL 80.0 - 98.0 09/22/[address] [facility] MCH 30.0 pg 27.0 - 31.0 09/22/[address] [facility] Hct 44.0 % 36.0 - 48.0 09/22/2015 [facility] Abdomen/Pelvis wo IV contrast CT Abdomen/Pelvis wo IV contrast CT Abdomen/Pelvis wo IV contrast CT TECHNIQUE: Contiguous transaxial images of the abdomen and pelvis were performed from the lung bases to the superior pubic rami without IV contrast. COMPARISON: None CLINICAL HX: Abdominal pain, acute. Vomiting, diarrhea CT ABDOMEN: Lower Chest: The lung bases are clear. GI Tract: Bowel gas pattern is unremarkable. Appendix demonstrates normal morphology. A small hiatal hernia is visualized at the GE junction. There is no evidence for free fluid or free air in the abdomen. Tract and Retroperitoneum: No genitourinary tract calculi are visualized in either collecting system. No hydronephrosis. Multiple small low-density lesions are visualized in both kidneys likely representing cysts. There is loss of cortical volume and perinephric stranding. There is a 5.1 x 4.1 cm oval lesion arising from the lower pole of right kidney likely representing a cyst as well. Abdominal viscera: The liver, spleen, pancreas, both adrenals, and the gallbladder demonstrate no gross abnormalities given the limitation of lack of IV contrast. 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 Bone and Soft tissues: Mild thoracolumbar spondylosis. No significant bony abnormality is noted. CT PELVIS: The bladder, uterus and adnexa are unremarkable in appearance, given the limitation of lack of IV contrast. No free fluid is present in the pelvis. IMPRESSION: Bilateral low density lesions are noted in the kidneys with the largest one, lower pole of right kidney, approximately 5 cm in size. These likely represent cysts but confirmation with sonography is recommended. Loss of cortical volume and perinephric stranding indicates medical renal disease. No genitourinary tract calculi or hydronephrosis. No significant acute abnormality is noted on the noncontrast CT of the abdomen and pelvis. SL: [id number] 09/22/2015 - - Read by: Casper Pino MD Dictated Date/time: 09/22/15 09:41 Electronically Signed by: Casper Pino MD 09/22/15 10:44 FINAL REPORT [facility] Chest 1view DX Chest 1view DX Study: Chest 1view DX Clinical Indication: Coughing Comparison: 02/27/2015 FINDINGS: Cardiac silhouette is normal in size. Mild left basilar atelectasis is seen. No pleural effusion or pneumothorax is noted. The osseous structures are unremarkable. IMPRESSION: Mild left basilar atelectasis SL: [id number] 09/22/2015 - - Read by: Shady Young MD Dictated Date/time: 09/22/15 09:07 Electronically Signed by: Shady Young MD 09/22/15 09:07 FINAL REPORT [facility] CHEM PANEL eGFR 30 mL/min/1.73m2 05/02/2015 Result Comment: The eGFR is calculated using the [...] from the National Kidney Disease Education Program (NKDEP) which additionally recommends that when the eGFR is used in patients with extremes of body mass index for purposes of drug dosing, the eGFR should be multiplied by the estimated BMI. [facility] CHEM PANEL Bili Total 0.5 mg/dL 0.2 - 1.3 05/02/2015 [facility] CHEM PANEL Alk Phos 122 unit/L 39 - 136 05/02/2015 [facility] CHEM PANEL A/G Ratio 0.9 0.7 - 1.6 05/02/2015 [facility] CHEM PANEL ALT 39 unit/L 0 - 65 05/02/2015 [facility] CHEM PANEL AST 39 unit/L 0 - 37 05/02/2015 [facility] CHEM PANEL Globulin 3.6 g/dL 2.0 - 4.0 05/02/2015 [facility] CHEM PANEL Albumin Lvl 3.4 g/dL 3.5 - 5.0 05/02/2015 [facility] CHEM PANEL Total Protein 7.0 g/dL 6.4 - 8.4 05/02/2015 [facility] CHEM PANEL B/C Ratio 31 6 - 25 05/02/2015 [facility] CHEM PANEL AGAP 11.9 meq/L 10.0 - 20.0 05/02/2015 [facility] CHEM PANEL CO2 21 meq/L 24 - 32 05/02/2015 [facility] CHEM PANEL Creatinine Lvl 1.6 mg/dL 0.5 - 1.4 05/02/2015 [facility] CHEM PANEL BUN 49 mg/dL 7 - 22 05/02/2015 [facility] CHEM PANEL Glucose Lvl 98 mg/dL 70 - 99 05/02/2015 [facility] CHEM PANEL Sodium Lvl 141 meq/L 135 - 145 05/02/2015 [facility] CHEM PANEL Chloride Lvl 114 meq/L 95 - 109 05/02/2015 [facility] CHEM PANEL Calcium Lvl 9.2 mg/dL 8.5 - 10.5 05/02/2015 [facility] CHEM PANEL Potassium Lvl 5.9 meq/L 3.5 - 5.1 05/02/2015 Result Comment: Slight hemolysis present. [facility] HEMATOLOGY Eosinophils # 0.2 K/CMM 0.0 - 0.5 05/02/2015 [facility] HEMATOLOGY Basophils # 0.1 K/CMM 0.0 - 0.2 05/02/2015 [facility] HEMATOLOGY Lymphocytes # 2.4 K/CMM 1.0 - 5.5 05/02/2015 [facility] HEMATOLOGY Monocytes # 0.6 K/CMM 0.0 - 0.8 05/02/2015 [facility] HEMATOLOGY Segs 59.8 % 45.0 - 75.0 05/02/2015 [facility] HEMATOLOGY Lymphocytes 30.2 % 20.0 - 40.0 05/02/2015 [facility] HEMATOLOGY Monocytes 7.1 % 2.0 - 12.0 05/02/2015 [facility] HEMATOLOGY Eosinophils 2.0 % 0.0 - 4.0 05/02/2015 [facility] HEMATOLOGY Basophils 0.9 % 0.0 - 1.0 05/02/2015 [facility] HEMATOLOGY Segs-Bands # 4.8 K/CMM 1.5 - 8.1 05/02/2015 [facility] HEMATOLOGY MPV 8.6 fL 7.4 - 10.4 05/02/2015 [facility] HEMATOLOGY MCV 96.6 fL 80.0 - 98.0 05/02/2015 [facility] HEMATOLOGY Hgb 13.4 g/dL 12.0 - 16.0 05/02/2015 [facility] HEMATOLOGY RBC 4.36 M/CMM 4.20 - 5.40 05/02/2015 [facility] HEMATOLOGY WBC 8.0 K/CMM 3.7 - 10.4 05/02/2015 [facility] HEMATOLOGY MCHC 31.9 g/dL 32.0 - 36.0 05/02/2015 [facility] HEMATOLOGY RDW 15.3 % 11.5 - 14.5 05/02/2015 [facility] HEMATOLOGY Hct 42.1 % 36.0 - 48.0 05/02/2015 [facility] HEMATOLOGY Platelet 230 K/CMM 133 - 450 05/02/2015 [facility] HEMATOLOGY MCH 30.8 pg 27.0 - 31.0 05/02/2015 [facility] HEMATOLOGY INR 1.02 0.85 - 1.17 05/02/2015 [facility] HEMATOLOGY PTT 34.8 s 22.9 - 35.8 05/02/2015 [facility] HEMATOLOGY PT 13.7 s 12.0 - 14.7 05/02/2015 [facility] ELECTROLYTES AGAP 13.3 meq/L 10.0 - 20.0 02/28/2015 [facility] ELECTROLYTES Sodium Lvl 141 meq/L 135 - 145 02/28/2015 [facility] ELECTROLYTES BUN 32 mg/dL 7 - 22 02/28/2015 [facility] ELECTROLYTES Creatinine Lvl 1.2 mg/dL 0.5 - 1.4 02/28/2015 [facility] ELECTROLYTES Glucose Lvl 201 mg/dL 70 - 99 02/28/2015 [facility] ELECTROLYTES Potassium Lvl 4.3 meq/L 3.5 - 5.1 02/28/2015 [facility] ELECTROLYTES CO2 23 meq/L 24 - 32 02/28/2015 [facility] ELECTROLYTES Calcium Lvl 9.4 mg/dL 8.5 - 10.5 02/28/2015 [facility] ELECTROLYTES Chloride Lvl 109 meq/L 95 - 109 02/28/2015 [facility] ELECTROLYTES eGFR 42 mL/min/1.73m2 02/28/2015 Result Comment: The eGFR is calculated using the [...] from the National Kidney Disease Education Program (NKDEP) which additionally recommends that when the eGFR is used in patients with extremes of body mass index for purposes of drug dosing, the eGFR should be multiplied by the estimated BMI. [facility] Lymphocytes # 1.2 K/CMM 1.0 - 5.5 02/28/[address] [facility] Monocytes # 0.6 K/CMM 0.0 - 0.8 02/28/[address] [facility] Basophils 0.1 % 0.0 - 1.0 02/28/[address] [facility] Monocytes 4.7 % 2.0 - 12.0 02/28/[address] [facility] Segs-Bands # 11.8 K/CMM 1.5 - 8.1 02/28/[address] [facility] Segs 86.7 % 45.0 - 75.0 02/28/[address] [facility] Lymphocytes 8.5 % 20.0 - 40.0 02/28/[address] [facility] MCHC 33.0 g/dL 32.0 - 36.0 02/28/[address] [facility] MCH 31.0 pg 27.0 - 31.0 02/28/[address] [facility] MPV 8.3 fL 7.4 - 10.4 02/28/2015 [facility] HEMATOLOGY Platelet 246 K/CMM 133 - 450 02/28/2015 [facility] HEMATOLOGY RDW 14.3 % 11.5 - 14.5 02/28/2015 [facility] HEMATOLOGY Hct 39.5 % 36.0 - 48.0 02/28/2015 [facility] HEMATOLOGY Hgb 13.0 g/dL 12.0 - 16.0 02/28/2015 [facility] HEMATOLOGY RBC 4.19 M/CMM 4.20 - 5.40 02/28/2015 [facility] HEMATOLOGY MCV 94.2 fL 80.0 - 98.0 02/28/2015 [facility] HEMATOLOGY WBC 13.6 K/CMM 3.7 - 10.4 02/28/2015 [facility] CARDIAC ENZYMES Total CK 135 unit/L 12 - 191 02/28/2015 [facility] CARDIAC ENZYMES Troponin-I null 0.00 - 0.40 02/28/2015 [facility] CARDIAC ENZYMES CK MB 1.7 ng/mL 0.5 - 3.6 02/28/2015 [facility] CARDIAC ENZYMES CK MB Index 1.3 0.0 - 2.5 02/28/2015 [facility] CARDIAC ENZYMES Total CK 143 unit/L 12 - 191 02/27/2015 [facility] CARDIAC ENZYMES CK MB 1.6 ng/mL 0.5 - 3.6 02/27/2015 [facility] CARDIAC ENZYMES Troponin-I null 0.00 - 0.40 02/27/2015 [facility] CARDIAC ENZYMES CK MB Index 1.1 0.0 - 2.5 02/27/2015 [facility] CARDIAC ENZYMES Troponin-I null 0.00 - 0.40 02/27/2015 [facility] CARDIAC ENZYMES Total CK 96 unit/L 12 - 191 02/27/2015 [facility] CARDIAC ENZYMES CK MB 1.5 ng/mL 0.5 - 3.6 02/27/2015 [facility] CARDIAC ENZYMES CK MB Index 1.6 0.0 - 2.5 02/27/2015 [facility] CARDIAC ENZYMES BNP 46 pg/mL <=100 pg/mL 02/27/2015 [facility] CHEM PANEL Calcium Lvl 9.0 mg/dL 8.5 - 10.5 02/27/2015 [facility] CHEM PANEL Sodium Lvl 143 meq/L 135 - 145 02/27/2015 [facility] CHEM PANEL Chloride Lvl 111 meq/L 95 - 109 02/27/2015 [facility] CHEM PANEL Potassium Lvl 4.1 meq/L 3.5 - 5.1 02/27/2015 [facility] CHEM PANEL eGFR 39 mL/min/1.73m2 02/27/2015 Result Comment: The eGFR is calculated using the [...] from the National Kidney Disease Education Program (NKDEP) which additionally recommends that when the eGFR is used in patients with extremes of body mass index for purposes of drug dosing, the eGFR should be multiplied by the estimated BMI. [facility] CHEM PANEL Creatinine Lvl 1.3 mg/dL 0.5 - 1.4 02/27/2015 [facility] CHEM PANEL CO2 22 meq/L 24 - 32 02/27/2015 [facility] CHEM PANEL Glucose Lvl 178 mg/dL 70 - 99 02/27/2015 [facility] CHEM PANEL BUN 34 mg/dL 7 - 22 02/27/2015 [facility] CHEM PANEL A/G Ratio 1.0 0.7 - 1.6 02/27/2015 [facility] CHEM PANEL Bili Total 0.3 mg/dL 0.2 - 1.3 02/27/2015 [facility] CHEM PANEL AGAP 14.1 meq/L 10.0 - 20.0 02/27/2015 [facility] CHEM PANEL B/C Ratio 26 6 - 25 02/27/2015 [facility] CHEM PANEL Globulin 3.6 g/dL 2.0 - 4.0 02/27/2015 [facility] CHEM PANEL AST 37 unit/L 0 - 37 02/27/2015 [facility] CHEM PANEL Alk Phos 190 unit/L 39 - 136 02/27/2015 [facility] CHEM PANEL Total Protein 7.2 g/dL 6.4 - 8.4 02/27/2015 [facility] CHEM PANEL Albumin Lvl 3.6 g/dL 3.5 - 5.0 02/27/2015 [facility] CHEM PANEL ALT 38 unit/L 0 - 65 02/27/2015 [facility] HEMATOLOGY Eosinophils # 0.2 K/CMM 0.0 - 0.5 02/27/2015 [facility] HEMATOLOGY Basophils # 0.1 K/CMM 0.0 - 0.2 02/27/2015 [facility] HEMATOLOGY Segs-Bands # 6.3 K/CMM 1.5 - 8.1 02/27/2015 [facility] HEMATOLOGY Basophils 0.9 % 0.0 - 1.0 02/27/2015 [facility] HEMATOLOGY Monocytes # 0.8 K/CMM 0.0 - 0.8 02/27/2015 [facility] HEMATOLOGY Lymphocytes # 2.3 K/CMM 1.0 - 5.5 02/27/2015 [facility] HEMATOLOGY Lymphocytes 23.8 % 20.0 - 40.0 02/27/[address] [facility] Monocytes 7.9 % 2.0 - 12.0 02/27/[address] [facility] Eosinophils 2.1 % 0.0 - 4.0 02/27/[address] [facility] Segs 65.3 % 45.0 - 75.0 02/27/[address] [facility] WBC 9.6 K/CMM 3.7 - 10.4 02/27/[address] [facility] RBC 4.68 M/CMM 4.20 - 5.40 02/27/[address] [facility] MPV 8.2 fL 7.4 - 10.4 02/27/[address] [facility] Platelet 289 K/CMM 133 - 450 02/27/[address] [facility] MCV 93.8 fL 80.0 - 98.0 02/27/[address] [facility] Hgb 14.7 g/dL 12.0 - 16.0 02/27/[address] [facility] Hct 43.9 % 36.0 - 48.0 02/27/[address] [facility] MCHC 33.5 g/dL 32.0 - 36.0 02/27/[address] [facility] RDW 14.2 % 11.5 - 14.5 02/27/[address] [facility] MCH 31.4 pg 27.0 - 31.0 02/27/2015 [facility] HEMATOLOGY PTT 38.0 s 22.9 - 35.8 02/27/[address] [facility] INR 0.94 0.85 - 1.17 02/27/[address] [facility] PT 12.5 s 12.0 - 14.7 02/27/2015 [facility] Chest 1view DX Chest 1view DX CHEST RADIOGRAPH SINGLE VIEW INDICATION: Dyspnea COMPARISON: Chest radiograph 10/10/2014 IMPRESSION: No acute intrathoracic abnormalities are visualized. SL: 16 02/27/2015 - - Read by: Corey Ramirez MD Dictated Date/time: 02/27/15 02:53 Electronically Signed by: Corey Ramirez MD 02/27/15 02:55 FINAL REPORT [facility] CARDIAC ENZYMES CK MB Index 0.8 0.0 - 2.5 10/10/2014 [facility] CARDIAC ENZYMES Total CK 108 unit/L 12 - 191 10/10/2014 [facility] CARDIAC ENZYMES CK MB 0.9 ng/mL 0.5 - 3.6 10/10/2014 [facility] CARDIAC ENZYMES Troponin-I null 0.00 - 0.40 10/10/2014 [facility] CARDIAC ENZYMES BNP 61 pg/mL <=100 pg/mL 10/10/2014 3Interpretive Data: Elevated results are in line with increasing severity of congestive heart failure. Minor elevations between 100 and 300 may be seen with Myocardial Ischemia, Sodium retaining drugs, and compensated/treated heart failure. [facility] ELECTROLYTES Chloride Lvl 108 meq/L 95 - 109 10/10/2014 [facility] ELECTROLYTES Sodium Lvl 140 meq/L 135 - 145 10/10/2014 [facility] ELECTROLYTES Potassium Lvl 4.6 meq/L 3.5 - 5.1 10/10/2014 [facility] ELECTROLYTES Globulin 4.1 g/dL 2.0 - 4.0 10/10/2014 [facility] ELECTROLYTES A/G Ratio 0.8 0.7 - 1.6 10/10/2014 [facility] ELECTROLYTES eGFR 47 mL/min/1.73m2 10/10/2014 1Result Comment: The eGFR is calculated using [...] from the National Kidney Disease Education Program (NKDEP) which additionally recommends that when the eGFR is used in patients with extremes of body mass index for purposes of drug dosing, the eGFR should be multiplied by the estimated BMI. [facility] ELECTROLYTES Calcium Lvl 8.7 mg/dL 8.5 - 10.5 10/10/2014 [facility] ELECTROLYTES Total Protein 7.4 g/dL 6.4 - 8.4 10/10/2014 [facility] ELECTROLYTES AST 44 unit/L 0 - 37 10/10/2014 [facility] ELECTROLYTES Albumin Lvl 3.3 g/dL 3.5 - 5.0 10/10/2014 [facility] ELECTROLYTES ALT 31 unit/L 0 - 65 10/10/2014 [facility] ELECTROLYTES Creatinine Lvl 1.1 mg/dL 0.5 - 1.4 10/10/2014 [facility] ELECTROLYTES BUN 17 mg/dL 7 - 22 10/10/2014 [facility] ELECTROLYTES CO2 25 meq/L 24 - 32 10/10/2014 [facility] ELECTROLYTES Glucose Lvl 134 mg/dL 70 - 99 10/10/2014 2Interpretive Data: Adult reference range values reflect the clinical guidelines of the [place] [employer]. [facility] ELECTROLYTES Alk Phos 143 unit/L 39 - 136 10/10/2014 [facility] ELECTROLYTES Bili Total 0.6 mg/dL 0.2 - 1.3 10/10/2014 [facility] ELECTROLYTES AGAP 11.6 meq/L 10.0 - 20.0 10/10/2014 [facility] ELECTROLYTES B/C Ratio 15 6 - 25 10/10/2014 [facility] HEMATOLOGY Basophils # 0.1 K/CMM 0.0 - 0.2 10/10/2014 [facility] HEMATOLOGY Eosinophils # 0.2 K/CMM 0.0 - 0.5 10/10/2014 [facility] HEMATOLOGY Monocytes # 0.5 K/CMM 0.0 - 0.8 10/10/2014 [facility] HEMATOLOGY Segs-Bands # 4.5 K/CMM 1.5 - 8.1 10/10/2014 [facility] HEMATOLOGY Lymphocytes # 2.2 K/CMM 1.0 - 5.5 10/10/2014 [facility] HEMATOLOGY Basophils 0.9 % 0.0 - 1.0 10/10/2014 [facility] HEMATOLOGY Monocytes 6.4 % 2.0 - 12.0 10/10/2014 [facility] HEMATOLOGY Eosinophils 2.0 % 0.0 - 4.0 10/10/2014 [facility] HEMATOLOGY Segs 61.1 % 45.0 - 75.0 10/10/2014 [facility] HEMATOLOGY Lymphocytes 29.6 % 20.0 - 40.0 10/10/[address] [facility] PT 12.7 s 12.0 - 14.7 10/10/[address] [facility] PTT 36.4 s 22.9 - 35.8 10/10/2014 5Interpretive Data: Heparin Therapeutic Range: 57 - [address] [facility] INR 0.95 0.85 - 1.17 10/10/2014 4Interpretive Data: RECOMMENDED RANGES FOR PROTIME INR: 2.0-3.0 for most medical and surgical thromboembolic states. 2.5-3.5 for artificial heart valves and recurrent embolism. INR SHOULD BE USED ONLY FOR PATIENTS ON STABLE ANTICOAGULANT THERAPY. [facility] MCH 30.9 pg 27.0 - 31.0 10/10/[address] [facility] MCHC 32.7 g/dL 32.0 - 36.0 10/10/[address] [facility] RDW 14.1 % 11.5 - 14.5 10/10/[address] [facility] Platelet 249 K/CMM 133 - 450 10/10/[address] [facility] MPV 8.4 fL 7.4 - 10.4 10/10/[address] [facility] Hgb 14.5 g/dL 12.0 - 16.0 10/10/[address] [facility] Hct 44.4 % 36.0 - 48.0 10/10/[address] [facility] WBC 7.4 K/CMM 3.7 - 10.4 10/10/[address] [facility] RBC 4.70 M/CMM 4.20 - 5.40 10/10/[address] [facility] MCV 94.4 fL 80.0 - 98.0 10/10/2014 [facility] Chest 1view DX Chest 1view DX EXAMINATION: Chest 1view CLINICAL HISTORY: Chest pain Since 05/16/2014, no important interval change has occurred. The hypoinflated lungs are clear of consolidation, pleural effusion, and pneumothorax. The heart size remains normal. The thoracic aorta remains mildly tortuous. SL:17 10/10/2014 - - Read by: Marquez Wallace MD Dictated Date/time: 10/10/14 12:11 Electronically Signed by: Marquez Wallace MD 10/10/14 12:12 FINAL REPORT [facility] Knee 4+ views unilateral DX Knee 4+ views unilateral DX Left knee, 4 views: Exam reason: Pain and swelling. Marginal spurring is noted at the medial joint compartment space associated with slight joint space narrowing. There is no acute fracture or dislocation noted. SL:12 08/22/2014 - - Read by: Baljit Lr MD Dictated Date/time: 08/22/14 19:53 Electronically Signed by: Baljit Lr MD 08/22/14 19:53 FINAL REPORT [facility] CARDIAC ENZYMES CK MB Index 1.3 0.0 - 2.5 05/16/2014 [facility] CARDIAC ENZYMES Troponin-I null 0.00 - 0.40 05/16/2014 [facility] CARDIAC ENZYMES CK MB 1.4 ng/mL 0.5 - 3.6 05/16/2014 [facility] CARDIAC ENZYMES Total CK 104 unit/L 12 - 191 05/16/2014 [facility] CHEM PANEL eGFR 48 mL/min/1.73m2 05/16/2014 1Result Comment: The eGFR is calculated using [...] from the National Kidney Disease Education Program (NKDEP) which additionally recommends that when the eGFR is used in patients with extremes of body mass index for purposes of drug dosing, the eGFR should be multiplied by the estimated BMI. [facility] CHEM PANEL Glucose Lvl 173 mg/dL 70 - 99 05/16/2014 2Interpretive Data: Adult reference range values reflect the clinical guidelines of the [place] [employer]. [facility] CHEM PANEL Sodium Lvl 142 meq/L 135 - 145 05/16/2014 [facility] CHEM PANEL Chloride Lvl 109 meq/L 95 - 109 05/16/2014 [facility] CHEM PANEL Potassium Lvl 4.3 meq/L 3.5 - 5.1 05/16/2014 [facility] CHEM PANEL Creatinine Lvl 1.1 mg/dL 0.5 - 1.4 05/16/2014 [facility] CHEM PANEL BUN 30 mg/dL 7 - 22 05/16/2014 [facility] CHEM PANEL Albumin Lvl 3.5 g/dL 3.5 - 5.0 05/16/2014 [facility] CHEM PANEL Calcium Lvl 9.0 mg/dL 8.5 - 10.5 05/16/2014 [facility] CHEM PANEL CO2 24 meq/L 24 - 32 05/16/2014 [facility] CHEM PANEL B/C Ratio 27 6 - 25 05/16/2014 [facility] CHEM PANEL AGAP 13.3 meq/L 10.0 - 20.0 05/16/2014 [facility] CHEM PANEL Globulin 3.7 g/dL 2.0 - 4.0 05/16/2014 [facility] CHEM PANEL A/G Ratio 0.9 0.7 - 1.6 05/16/2014 [facility] CHEM PANEL ALT 48 unit/L 0 - 65 05/16/2014 [facility] CHEM PANEL Total Protein 7.2 g/dL 6.4 - 8.4 05/16/2014 [facility] CHEM PANEL Alk Phos 164 unit/L 39 - 136 05/16/2014 [facility] CHEM PANEL AST 36 unit/L 0 - 37 05/16/2014 [facility] CHEM PANEL Bili Total 0.5 mg/dL 0.2 - 1.3 05/16/2014 [facility] HEMATOLOGY Segs-Bands # 9.8 K/CMM 1.5 - 8.1 05/16/2014 [facility] HEMATOLOGY Lymphocytes # 2.5 K/CMM 1.0 - 5.5 05/16/2014 [facility] HEMATOLOGY Eosinophils # 0.2 K/CMM 0.0 - 0.5 05/16/2014 [facility] HEMATOLOGY Basophils # 0.1 K/CMM 0.0 - 0.2 05/16/2014 [facility] HEMATOLOGY Monocytes # 0.8 K/CMM 0.0 - 0.8 05/16/2014 [facility] HEMATOLOGY Monocytes 6.1 % 2.0 - 12.0 05/16/2014 [facility] HEMATOLOGY Eosinophils 1.1 % 0.0 - 4.0 05/16/2014 [facility] HEMATOLOGY Basophils 0.8 % 0.0 - 1.0 05/16/2014 [facility] HEMATOLOGY Segs 73.3 % 45.0 - 75.0 05/16/2014 [facility] HEMATOLOGY Lymphocytes 18.7 % 20.0 - 40.0 05/16/2014 [facility] HEMATOLOGY D-Dimer 0.46 ug/mL FEU 05/16/2014 4Interpretive Data: In DIC, quantitative D-Dimer is generally greater than 0.66 ug/mL FEU. Values of quantitative D-Dimer less than 0.40 ug/mL FEU have been reported to be associated with a low probability of deep vein thrombosis/pulmonary embolism. This test alone should not be used to rule out DVT/PE. [facility] PTT 35.5 s 22.9 - 35.8 05/16/2014 5Interpretive Data: Heparin Therapeutic Range: 57 - [address] [facility] [place] PT 12.8 s 12.0 - 14.7 05/16/[address] [facility] [place] INR 0.96 0.85 - 1.17 05/16/2014 3Interpretive Data: RECOMMENDED RANGES FOR PROTIME INR: 2.0-3.0 for most medical and surgical thromboembolic states. 2.5-3.5 for artificial heart valves and recurrent embolism. INR SHOULD BE USED ONLY FOR PATIENTS ON STABLE ANTICOAGULANT THERAPY. [facility] [place] RDW 14.1 % 11.5 - 14.5 05/16/[address] [facility] [place] MPV 8.1 fL 7.4 - 10.4 05/16/[address] [facility] [place] Platelet 344 K/CMM 133 - 450 05/16/[address] [facility] [place] MCV 94.2 fL 80.0 - 98.0 05/16/[address] [facility] [place] MCH 30.6 pg 27.0 - 31.0 05/16/[address] [facility] MCHC 32.4 g/dL 32.0 - 36.0 05/16/[address] [facility] RBC 4.68 M/CMM 4.20 - 5.40 05/16/[address] [facility] Hct 44.1 % 36.0 - 48.0 05/16/[address] [facility] Hgb 14.3 g/dL 12.0 - 16.0 05/16/[address] [facility] WBC 13.4 K/CMM 3.7 - 10.4 05/16/2014 [facility] Chest w contrast CT Chest w contrast CT EXAM: CT CHEST WITH CONTRAST (PE PROTOCOL) HISTORY: Shortness of breath. Evaluate for pulmonary embolism. COMPARISON: CT chest of 01/07/2013. TECHNIQUE: Thin collimation axial images of the pulmonary arteries and routine CT chest with IV contrast. CT pulmonary arteriogram: No definite pulmonary embolism seen. CT chest: Stable heart size. No pericardial effusion. Extensive coronary atherosclerotic disease is present. No mediastinal or hilar mass or adenopathy. No focal consolidation, pleural effusion, or pneumothorax. Mild bibasilar atelectasis. Small calcified granuloma is present within the posterior right upper lobe. Diffuse fatty liver infiltration. Distended gallbladder. Nonspecific perinephric stranding is present. Small hiatal hernia. IMPRESSION: 1. No definite CT evidence of acute pulmonary embolus. 2. No focal consolidation, pleural effusion, or pneumothorax. 3. Diffuse fatty liver infiltration. 4. Small hiatal hernia. SL: 12 05/16/2014 - - Read by: Steven Cortes MD Dictated Date/time: 05/16/14 16:42 Electronically Signed by: Steven Cortes MD 05/16/14 16:45 FINAL REPORT [facility] Chest 1view Chest 1view HISTORY: Shortness of breath. Portable chest one view. Comparison 01/07/2013 Lungs are clear. Heart size normal. There is no pleural effusion or pneumothorax. IMPRESSION: No acute finding SL:13 05/16/2014 - - Read by: Maikel Han MD Dictated Date/time: 05/16/14 13:12 Electronically Signed by: Maikel Han MD 05/16/14 13:12 FINAL REPORT [facility] BEDSIDE GLUCOSE TESTING Comment1 Assess patient 01/09/2013 [facility] BEDSIDE GLUCOSE TESTING Gluc POC Lifscn null 70 - 99 01/09/2013 CRIT 1Interpretive Data: Upper Reportable Limit: 200 mg/dL. [facility] BEDSIDE GLUCOSE TESTING Comment2 Repeat test 01/09/2013 [facility] BEDSIDE GLUCOSE TESTING Comment3 Notify MAXWELL 01/09/2013 [facility] BEDSIDE GLUCOSE TESTING Comment2 Notify MAXWELL 01/09/2013 [facility] BEDSIDE GLUCOSE TESTING Comment1 Assess patient 01/09/2013 [facility] BEDSIDE GLUCOSE TESTING Gluc POC Lifscn null 70 - 99 01/09/2013 CRIT 2Interpretive Data: Upper Reportable Limit: 200 mg/dL. [facility] BEDSIDE GLUCOSE TESTING Comment1 Notify MAXWELL 01/09/2013 [facility] BEDSIDE GLUCOSE TESTING Gluc POC Lifscn 310 mg/dL 70 - 99 01/09/2013 HI 3Interpretive Data: Upper Reportable Limit: 200 mg/dL. [facility] CHEMISTRY Glucose Lvl 521 mg/dL 70 - 99 01/09/2013 CRIT 7Result Comment: Critical Result(s) called to Yehuda Doll at 01/09/2013 04:26 by lt. Read back OK. [facility] CHEMISTRY AGAP 15.1 meq/L 10.0 - 20.0 01/09/2013 Normal [facility] CHEMISTRY CO2 25 meq/L 24 - 32 01/09/2013 Normal [facility] CHEMISTRY BUN 29 mg/dL 7 - 22 01/09/2013 HI [facility] CHEMISTRY Glucose Lvl 538 mg/dL 70 - 99 01/09/2013 CRIT 9Interpretive Data: Adult reference range values reflect the clinical guidelines of the [place] [employer]. [facility] CHEMISTRY eGFR 33 mL/min/1.73m2 01/09/2013 NA 4Result Comment: The eGFR is calculated using the [...] from the National Kidney Disease Education Program (NKDEP) which additionally recommends that when the eGFR is used in patients with extremes of body mass index for purposes of drug dosing, the eGFR should be multiplied by the estimated BMI. [facility] CHEMISTRY Calcium Lvl 8.8 mg/dL 8.5 - 10.5 01/09/2013 Normal [facility] CHEMISTRY Chloride Lvl 102 meq/L 95 - 109 01/09/2013 Normal [facility] CHEMISTRY Potassium Lvl 4.1 meq/L 3.5 - 5.1 01/09/2013 Normal [facility] CHEMISTRY Sodium Lvl 138 meq/L 135 - 145 01/09/2013 Normal [facility] CHEMISTRY Creatinine Lvl 1.5 mg/dL 0.5 - 1.4 01/09/2013 HI [facility] HEMATOLOGY MPV 8.7 fL 7.4 - 10.4 01/09/2013 Normal [facility] HEMATOLOGY RBC 3.66 M/CMM 4.20 - 5.40 01/09/2013 LOW [facility] HEMATOLOGY MCV 97.3 fL 81.0 - 99.0 01/09/2013 Normal [facility] HEMATOLOGY MCH 34.5 pg 27.0 - 31.0 01/09/2013 [facility] HEMATOLOGY Hgb 12.6 g/dL 12.0 - 16.0 01/09/2013 Normal [facility] HEMATOLOGY Hct 35.6 % 36.0 - 48.0 01/09/2013 LOW [facility] HEMATOLOGY Platelet 245 K/CMM 133 - 450 01/09/2013 Normal [facility] HEMATOLOGY RDW 14.0 % 11.5 - 14.5 01/09/2013 Normal [facility] HEMATOLOGY MCHC 35.5 g/dL 32.0 - 36.0 01/09/2013 Normal [facility] HEMATOLOGY WBC 11.1 K/CMM 3.7 - 10.4 01/09/2013 HI [facility] HEMATOLOGY Lymphocytes # 0.9 K/CMM 1.0 - 5.5 01/09/2013 LOW [facility] HEMATOLOGY Monocytes # 0.0 K/CMM 0.0 - 0.8 01/09/2013 Normal [facility] HEMATOLOGY Eosinophils # 0.0 K/CMM 0.0 - 0.5 01/09/2013 Normal [facility] HEMATOLOGY Basophils # 0.0 K/CMM 0.0 - 0.2 01/09/2013 Normal [facility] HEMATOLOGY Segs-Bands # 10.2 K/CMM 1.5 - 8.1 01/09/[address] [facility] Lymphocytes 7.9 % 20.0 - 40.0 01/09/2013 LOW [facility] HEMATOLOGY Monocytes 0.4 % 2.0 - 12.0 01/09/[address] [facility] Eosinophils 0.0 % 0.0 - 4.0 01/09/2013 Normal [facility] HEMATOLOGY Basophils 0.0 % 0.0 - 1.0 01/09/2013 Normal [facility] HEMATOLOGY Segs 91.7 % 45.0 - 75.0 01/09/2013 [facility] BEDSIDE GLUCOSE TESTING Comment2 Notify RN/ 01/08/2013 NA [facility] CHEMISTRY Glucose Lvl 491 mg/dL 70 - 99 01/08/2013 CRIT 11Interpretive Data: Adult reference range values reflect the clinical guidelines of the [place] [employer]. [facility] Microbiology Gram Stain 01/08/2013 [facility] Microbiology Culture: Respiratory w/Gram Stain 01/08/2013 [facility] CHEMISTRY Lactic Acid Lvl 1.2 mMol/L 0.5 - 2.2 01/08/2013 Normal [facility] Microbiology Culture: Blood 01/08/2013 [facility] Microbiology Culture: Blood 01/08/2013 [facility] CHEMISTRY CK MB Index null 0.0 - 2.5 01/08/2013 Normal [facility] CHEMISTRY CK MB null 0.5 - 3.6 01/08/2013 Normal [facility] CHEMISTRY Sodium Lvl 144 meq/L 135 - 145 01/08/2013 Normal [facility] CHEMISTRY Potassium Lvl 3.9 meq/L 3.5 - 5.1 01/08/2013 Normal [facility] CHEMISTRY Chloride Lvl 106 meq/L 95 - 109 01/08/2013 Normal [facility] CHEMISTRY eGFR 61 mL/min/1.73m2 01/08/2013 NA 5Result Comment: The eGFR is calculated using the [...] from the National Kidney Disease Education Program (NKDEP) which additionally recommends that when the eGFR is used in patients with extremes of body mass index for purposes of drug dosing, the eGFR should be multiplied by the estimated BMI. [facility] CHEMISTRY A/G Ratio 0.9 0.7 - 1.6 01/08/2013 Normal [facility] CHEMISTRY AST 59 unit/L 0 - 37 01/08/2013 [facility] CHEMISTRY AGAP 13.9 meq/L 10.0 - 20.0 01/08/2013 Normal [facility] CHEMISTRY Globulin 3.5 g/dL 2.0 - 4.0 01/08/2013 Normal [facility] CHEMISTRY B/C Ratio 20 6 - 25 01/08/2013 Normal [facility] CHEMISTRY Bili Total 0.4 mg/dL 0.2 - 1.3 01/08/2013 Normal [facility] CHEMISTRY Alk Phos 270 unit/L 39 - 136 01/08/2013 HI [facility] CHEMISTRY Albumin Lvl 3.2 g/dL 3.5 - 5.0 01/08/2013 LOW [facility] CHEMISTRY ALT 57 unit/L 0 - 65 01/08/2013 Normal [facility] CHEMISTRY Total Protein 6.7 g/dL 6.4 - 8.4 01/08/2013 Normal [facility] CHEMISTRY CO2 28 meq/L 24 - 32 01/08/2013 Normal [facility] CHEMISTRY BUN 18 mg/dL 7 - 22 01/08/2013 Normal [facility] CHEMISTRY Calcium Lvl 9.0 mg/dL 8.5 - 10.5 01/08/2013 Normal [facility] CHEMISTRY Creatinine Lvl 0.9 mg/dL 0.5 - 1.4 01/08/2013 Normal [facility] CHEMISTRY Total CK 44 unit/L 12 - 191 01/08/2013 Normal [facility] CHEMISTRY Troponin-I null 0.00 - 0.40 01/08/[address] [facility] PT 12.9 s 12.0 - 14.7 01/08/2013 Normal [facility] HEMATOLOGY INR 0.95 0.85 - 1.17 01/08/2013 Normal 13Interpretive Data: RECOMMENDED RANGES FOR PROTIME INR: 2.0-3.0 for most medical and surgical thromboembolic states. 2.5-3.5 for artificial heart valves and recurrent embolism. INR SHOULD BE USED ONLY FOR PATIENTS ON STABLE ANTICOAGULANT THERAPY. [facility] HEMATOLOGY D-Dimer 0.56 ug/mL FEU 01/08/2013 NA 14Interpretive Data: In DIC, quantitative D-Dimer is generally greater than 0.66 ug/mL FEU. Values of quantitative D-Dimer less than 0.40 ug/mL FEU have been reported to be associated with a low probability of deep vein thrombosis/pulmonary embolism. This test alone should not be used to rule out DVT/PE. [facility] PTT 35.4 s 22.9 - 35.8 01/08/2013 Normal 15Interpretive Data: Heparin Therapeutic Range: 57 - 92 Seconds [facility] CHEMISTRY BNP 68 pg/mL <=100 01/08/2013 Normal 12Interpretive Data: Elevated results are in line with increasing severity of congestive heart failure. Minor elevations between 100 and 300 may be seen with Myocardial Ischemia, Sodium retaining drugs, and compensated/treated heart failure. [facility] HEMATOLOGY Monocytes # 0.5 K/CMM 0.0 - 0.8 01/08/[address] [facility] Lymphocytes # 2.3 K/CMM 1.0 - 5.5 01/08/[address] [facility] Basophils 0.7 % 0.0 - 1.0 01/08/[address] [facility] Eosinophils # 0.2 K/CMM 0.0 - 0.5 01/08/2013 Normal [facility] HEMATOLOGY Eosinophils 2.4 % 0.0 - 4.0 01/08/2013 Normal [facility] HEMATOLOGY Segs-Bands # 5.2 K/CMM 1.5 - 8.1 01/08/2013 Normal [facility] HEMATOLOGY Basophils # 0.1 K/CMM 0.0 - 0.2 01/08/2013 Normal [facility] HEMATOLOGY Segs 62.5 % 45.0 - 75.0 01/08/2013 Normal [facility] HEMATOLOGY Lymphocytes 28.2 % 20.0 - 40.0 01/08/2013 Normal [facility] HEMATOLOGY Monocytes 6.2 % 2.0 - 12.0 01/08/2013 Normal [facility] HEMATOLOGY MPV 8.8 fL 7.4 - 10.4 01/08/2013 Normal [facility] HEMATOLOGY Platelet 257 K/CMM 133 - 450 01/08/2013 Normal [facility] HEMATOLOGY WBC 8.3 K/CMM 3.7 - 10.4 01/08/2013 Normal [facility] HEMATOLOGY MCHC 33.7 g/dL 32.0 - 36.0 01/08/2013 Normal [facility] HEMATOLOGY MCH 31.6 pg 27.0 - 31.0 01/08/2013 HI [facility] HEMATOLOGY RDW 14.9 % 11.5 - 14.5 01/08/2013 [facility] HEMATOLOGY RBC 4.18 M/CMM 4.20 - 5.40 01/08/2013 LOW [facility] HEMATOLOGY Hgb 13.2 g/dL 12.0 - 16.0 01/08/2013 Normal [facility] HEMATOLOGY MCV 93.9 fL 81.0 - 99.0 01/08/2013 Normal [facility] HEMATOLOGY Hct 39.3 % 36.0 - 48.0 01/08/2013 Normal [facility] CHEMISTRY Temp Art 37.0 Mirlande 01/08/2013 NA [facility] CHEMISTRY Allens Art Positive (01/07/2013 20:25:00) 01/08/2013 Normal [facility] CHEMISTRY FiO2 Art Room Air 01/08/2013 NA [facility] CHEMISTRY Site Art Left Rad (01/07/2013 20:25:00) 01/08/2013 Normal [facility] CHEMISTRY pH Art 7.46 7.35 - 7.45 01/08/2013 [facility] CHEMISTRY HCO3 Art 28 mMol/L 22 - 26 01/08/2013 [facility] CHEMISTRY BE Art 4 mMol/L -2-2 - 2 01/08/2013 HI [facility] CHEMISTRY pCO2 Art 40 mm[Hg] 35 - 45 01/08/2013 Normal [facility] CHEMISTRY pO2 Art 81 mm[Hg] 80 - 100 01/08/2013 Normal [facility] CHEMISTRY O2 Sat Art 96.5 % 95.0 - 100.0 01/08/2013 Normal [facility] URINALYSIS UA Urobilinogen <=1.0 mg/dL
*NA*
(01/07/2013 20:20:00) <sup> </sup> 0.1 - 1.0 01/08/2013 NA [facility] URINALYSIS UA WBC null 0 - 5 01/08/2013 Normal [facility] URINALYSIS UA Sq Epi Few /LPF *NA* (01/07/2013 20:20:00) Few 01/08/2013 NA [facility] URINALYSIS UA Leuk Est Negative (01/07/2013 20:20:00) Negative 01/08/2013 Normal [facility] URINALYSIS UA Nitrite Negative (01/07/2013 20:20:00) Negative 01/08/2013 Normal [facility] URINALYSIS UA RBC null 0 - 2 01/08/2013 Normal [facility] URINALYSIS UA Color Ltyellow 01/08/2013 NA [facility] URINALYSIS UA Ketones Negative mg/dL *NA* (01/07/2013 20:20:00) Negative 01/08/2013 [facility] URINALYSIS UA Glucose 50 mg/dL *ABN* (01/07/2013 20:20:00) Negative 01/08/2013 ABN [facility] URINALYSIS UA Protein Negative mg/dL (01/07/2013 20:20:00) Negative 01/08/2013 Normal [facility] URINALYSIS UA Blood Negative (01/07/2013 20:20:00) Negative 01/08/2013 Normal [facility] URINALYSIS UA Bili Negative *NA* (01/07/2013 20:20:00) Negative 01/08/2013 [facility] URINALYSIS UA Turbidity Clear (01/07/2013 20:20:00) Clear 01/08/2013 Normal [facility] URINALYSIS UA pH 6.0 5.0 - 8.0 01/08/2013 Normal [facility] URINALYSIS UA Spec Grav 1.013 <=1.030 01/08/2013 Normal [facility] Chest w contrast CT Chest w contrast CT EXAM: CT CHEST WITH CONTRAST (PE PROTOCOL) HISTORY: Coughing. Evaluate for pulmonary embolism. COMPARISON: [None] TECHNIQUE: Thin collimation axial images of the pulmonary arteries and routine CT chest with IV contrast. Motion artifact degrades image quality. CT pulmonary arteriogram: No definite pulmonary embolism seen. No aortic dissection. CT chest: The heart is borderline enlarged without pericardial effusion. No mediastinal or hilar mass or adenopathy. Mild patchy reticular nodular infiltrate within the right lower lobe. No focal consolidation, pleural effusion, or pneumothorax. Visualized upper abdomen demonstrates no acute focal process. Small hiatal hernia. IMPRESSION: 1. Limited study as above. No definite CT evidence of acute pulmonary embolus. 2. Mild patchy reticular nodular infiltrate within the right lower lobe. Please correlate for atypical infection such as mycobacterium avium complex. SL: 12 01/07/2013 - - Read by: Steven Cortes Dictated Date/time: 01/08/13 00:15 Electronically Signed by: Steven Cortes MD 01/08/13 00:18 FINAL REPORT [facility] Chest 2 views Chest 2 views NAME: GEOVANI ANDERSEN : 1935 SEX: F Ordering Physician: Rosita Yusuf Chest 2 views : Jan 07, 2013 08:55:00 PM. CLINICAL INDICATION: Coughing. Comparison Examination: 09/02/2012. FINDINGS: Cardiac and mediastinal structures are stable. Slight patchy opacity projecting over the anterior lower heart on lateral view may represent atelectasis, pneumonia or other nonspecific pneumonitis. This is slightly more prominent than 06/23/2012. No other focal infiltrate identified within the lungs, no edema, no pleural effusions and no pneumothorax. Mild degenerative changes are seen in the thoracic spine. SL: 14 01/07/2013 - - Read by: Ermias Barcenas Dictated Date/time: 01/07/13 21:00 Electronically Signed by: Ermias Barcenas MD 01/07/13 21:03 FINAL REPORT [facility] BEDSIDE GLUCOSE TESTING Comment1 Notify MAXWELL 09/03/2012 MARCELINA [facility] BEDSIDE GLUCOSE TESTING Gluc POC Lifscn null 70 - 99 09/03/2012 CRIT 1Interpretive Data: Upper Reportable Limit: 200 mg/dL. [facility] CHEMISTRY Glucose Lvl 428 mg/dL 70 - 99 09/03/2012 CRIT 7Interpretive Data: Adult reference range values reflect the clinical guidelines of the [place] [employer]. [facility] BEDSIDE GLUCOSE TESTING Gluc POC Lifscn null 70 - 99 09/03/2012 CRIT 2Interpretive Data: Upper Reportable Limit: 200 mg/dL. [facility] BEDSIDE GLUCOSE TESTING Gluc POC Lifscn 305 mg/dL 70 - 99 09/03/2012 HI 3Interpretive Data: Upper Reportable Limit: 200 mg/dL. [facility] CHEMISTRY Potassium Lvl 4.2 meq/L 3.5 - 5.1 09/03/2012 Normal [facility] CHEMISTRY Sodium Lvl 142 meq/L 135 - 145 09/03/2012 Normal [facility] CHEMISTRY Chloride Lvl 105 meq/L 95 - 109 09/03/2012 Normal [facility] CHEMISTRY eGFR 48 mL/min/1.73m2 09/03/2012 NA 4Result Comment: The eGFR is calculated using the [...] from the National Kidney Disease Education Program (NKDEP) which additionally recommends that when the eGFR is used in patients with extremes of body mass index for purposes of drug dosing, the eGFR should be multiplied by the estimated BMI. [facility] CHEMISTRY Calcium Lvl 9.1 mg/dL 8.5 - 10.5 09/03/2012 Normal [facility] CHEMISTRY AGAP 14.2 meq/L 10.0 - 20.0 09/03/2012 Normal [facility] CHEMISTRY CO2 27 meq/L 24 - 32 09/03/2012 Normal [facility] CHEMISTRY BUN 24 mg/dL 7 - 22 09/03/2012 HI [facility] CHEMISTRY Glucose Lvl 296 mg/dL 70 - 99 09/03/2012 HI 8Interpretive Data: Adult reference range values reflect the clinical guidelines of the [place] [employer]. [facility] CHEMISTRY Creatinine Lvl 1.1 mg/dL 0.5 - 1.4 09/03/2012 Normal [facility] HEMATOLOGY Segs-Bands # 7.7 K/CMM 1.5 - 8.1 09/03/2012 Normal [facility] HEMATOLOGY Basophils 0.2 % 0.0 - 1.0 09/03/2012 Normal [facility] HEMATOLOGY Lymphocytes # 1.2 K/CMM 1.0 - 5.5 09/03/2012 Normal [facility] HEMATOLOGY Eosinophils # 0.0 K/CMM 0.0 - 0.5 09/03/2012 Normal [facility] HEMATOLOGY Eosinophils 0.0 % 0.0 - 4.0 09/03/2012 Normal [facility] HEMATOLOGY Monocytes # 0.1 K/CMM 0.0 - 0.8 09/03/2012 Normal [facility] HEMATOLOGY Monocytes 1.2 % 2.0 - 12.0 09/03/2012 LOW [facility] HEMATOLOGY Lymphocytes 12.9 % 20.0 - 40.0 09/03/2012 LOW [facility] HEMATOLOGY RBC Morph Normal (09/03/2012 05:58:00) 09/03/2012 Normal [facility] HEMATOLOGY Basophils # 0.0 K/CMM 0.0 - 0.2 09/03/2012 Normal [facility] HEMATOLOGY Segs 85.7 % 45.0 - 75.0 09/03/2012 HI [facility] HEMATOLOGY Plt Morph Normal (09/03/2012 05:58:00) 09/03/2012 Normal [facility] HEMATOLOGY MPV 8.1 fL 7.4 - 10.4 09/03/2012 Normal [facility] HEMATOLOGY Platelet 353 K/CMM 133 - 450 09/03/2012 Normal [facility] HEMATOLOGY RDW 13.9 % 11.5 - 14.5 09/03/2012 Normal [facility] HEMATOLOGY RBC 4.24 M/CMM 4.20 - 5.40 09/03/2012 Normal [facility] HEMATOLOGY WBC 9.0 K/CMM 3.7 - 10.4 09/03/2012 Normal [facility] HEMATOLOGY MCHC 33.7 g/dL 32.0 - 36.0 09/03/2012 Normal [facility] HEMATOLOGY MCV 93.2 fL 81.0 - 99.0 09/03/2012 Normal [facility] HEMATOLOGY MCH 31.4 pg 27.0 - 31.0 09/03/2012 HI [facility] HEMATOLOGY Hgb 13.3 g/dL 12.0 - 16.0 09/03/2012 Normal [facility] HEMATOLOGY Hct 39.5 % 36.0 - 48.0 09/03/2012 Normal [facility] CHEMISTRY Glucose Lvl 476 mg/dL 70 - 99 09/03/2012 CRIT 10Interpretive Data: Adult reference range values reflect the clinical guidelines of the [place] [employer]. [facility] BEDSIDE GLUCOSE TESTING Comment1 Notify RN/ 09/03/2012 NA [facility] BEDSIDE GLUCOSE TESTING Comment1 Notify RN/ 09/03/2012 [facility] Microbiology Culture: Urine 09/03/2012 [facility] URINALYSIS UA Bacteria Occasional /HPF *NA* (09/02/2012 16:53:00) None Seen 09/02/2012 [facility] URINALYSIS UA pH 5.0 5.0 - 8.0 09/02/2012 Normal [facility] URINALYSIS UA Protein Negative mg/dL (09/02/2012 16:53:00) Negative 09/02/2012 Normal [facility] URINALYSIS UA Turbidity Clear (09/02/2012 16:53:00) Clear 09/02/2012 Normal [facility] URINALYSIS UA Spec Grav 1.018 <=1.030 09/02/2012 Normal [facility] URINALYSIS UA Glucose 500 mg/dL *ABN* (09/02/2012 16:53:00) Negative 09/02/2012 ABN [facility] URINALYSIS UA Ketones 20 mg/dL *ABN* (09/02/2012 16:53:00) Negative 09/02/2012 ABN [facility] URINALYSIS UA Bili Negative *NA* (09/02/2012 16:53:00) Negative 09/02/2012 [facility] URINALYSIS UA Blood Negative (09/02/2012 16:53:00) Negative 09/02/2012 Normal [facility] URINALYSIS UA Nitrite Negative (09/02/2012 16:53:00) Negative 09/02/2012 Normal [facility] URINALYSIS UA Sq Epi Few /LPF *NA* (09/02/2012 16:53:00) Few 09/02/2012 [facility] URINALYSIS UA Leuk Est Trace *ABN* (09/02/2012 16:53:00) Negative 09/02/2012 ABN [facility] URINALYSIS UA RBC 3 /HPF 0 - 2 09/02/2012 [facility] URINALYSIS UA WBC 14 /HPF 0 - 5 09/02/2012 HI [facility] URINALYSIS UA Urobilinogen <=1.0 mg/dL
*NA*
(09/02/2012 16:53:00) <sup> </sup> 0.1 - 1.0 09/02/2012 NA [facility] URINALYSIS UA Color Ltyellow 09/02/2012 NA [facility] CHEMISTRY Lactic Acid Lvl 1.2 mMol/L 0.5 - 2.2 09/02/2012 Normal [facility] Microbiology Culture: Blood 09/02/2012 [facility] Microbiology Culture: Blood 09/02/2012 [facility] CHEMISTRY Troponin-I null 0.00 - 0.40 09/02/2012 Normal [facility] CHEMISTRY CK MB 0.9 ng/mL 0.5 - 3.6 09/02/2012 Normal [facility] CHEMISTRY Total CK 76 unit/L 12 - 191 09/02/2012 Normal [facility] CHEMISTRY CK MB Index 1.2 0.0 - 2.5 09/02/2012 Normal [facility] CHEMISTRY BNP 64 pg/mL <=100 09/02/2012 Normal 11Interpretive Data: Elevated results are in line with increasing severity of congestive heart failure. Minor elevations between 100 and 300 may be seen with Myocardial Ischemia, Sodium retaining drugs, and compensated/treated heart failure. [facility] CHEMISTRY Alk Phos 244 unit/L 39 - 136 09/02/2012 [facility] CHEMISTRY ALT 43 unit/L 0 - 65 09/02/2012 Normal [facility] CHEMISTRY AST 40 unit/L 0 - 37 09/02/2012 [facility] CHEMISTRY Bili Total 0.7 mg/dL 0.2 - 1.3 09/02/2012 Normal [facility] CHEMISTRY A/G Ratio 0.8 0.7 - 1.6 09/02/2012 Normal [facility] CHEMISTRY Globulin 4.4 g/dL 2.0 - 4.0 09/02/2012 [facility] CHEMISTRY B/C Ratio 20 6 - 25 09/02/2012 Normal [facility] CHEMISTRY Total Protein 7.9 g/dL 6.4 - 8.4 09/02/2012 Normal [facility] CHEMISTRY BUN 20 mg/dL 7 - 22 09/02/2012 Normal [facility] CHEMISTRY eGFR 54 mL/min/1.73m2 09/02/2012 NA 5Result Comment: The eGFR is calculated using the [...] from the National Kidney Disease Education Program (NKDEP) which additionally recommends that when the eGFR is used in patients with extremes of body mass index for purposes of drug dosing, the eGFR should be multiplied by the estimated BMI. [facility] CHEMISTRY Calcium Lvl 9.6 mg/dL 8.5 - 10.5 09/02/2012 Normal [facility] CHEMISTRY Albumin Lvl 3.5 g/dL 3.5 - 5.0 09/02/2012 Normal [facility] CHEMISTRY AGAP 14.9 meq/L 10.0 - 20.0 09/02/2012 Normal [facility] CHEMISTRY Chloride Lvl 107 meq/L 95 - 109 09/02/2012 Normal [facility] CHEMISTRY Potassium Lvl 3.9 meq/L 3.5 - 5.1 09/02/2012 Normal [facility] CHEMISTRY CO2 27 meq/L 24 - 32 09/02/2012 Normal [facility] CHEMISTRY Creatinine Lvl 1.0 mg/dL 0.5 - 1.4 09/02/2012 Normal [facility] CHEMISTRY Sodium Lvl 145 meq/L 135 - 145 09/02/2012 Normal [facility] CHEMISTRY Magnesium Lvl 1.7 mg/dL 1.8 - 2.4 09/02/2012 LOW [facility] CHEMISTRY Phosphorus 3.3 mg/dL 2.5 - 4.5 09/02/2012 Normal [facility] HEMATOLOGY INR 0.91 0.85 - 1.17 09/02/2012 Normal 12Interpretive Data: RECOMMENDED RANGES FOR PROTIME INR: 2.0-3.0 for most medical and surgical thromboembolic states. 2.5-3.5 for artificial heart valves and recurrent embolism. INR SHOULD BE USED ONLY FOR PATIENTS ON STABLE ANTICOAGULANT THERAPY. [facility] HEMATOLOGY PTT 37.0 s 22.9 - 35.8 09/02/2012 HI 13Interpretive Data: Heparin Therapeutic Range: 57 - 92 Seconds [facility] HEMATOLOGY PT 12.5 s 12.0 - 14.7 09/02/2012 Normal [facility] HEMATOLOGY Lymphocytes 20.7 % 20.0 - 40.0 09/02/2012 Normal [facility] HEMATOLOGY Segs 71.9 % 45.0 - 75.0 09/02/2012 Normal [facility] HEMATOLOGY Basophils 0.3 % 0.0 - 1.0 09/02/2012 Normal [facility] HEMATOLOGY Segs-Bands # 6.7 K/CMM 1.5 - 8.1 09/02/2012 Normal [facility] HEMATOLOGY Monocytes 5.3 % 2.0 - 12.0 09/02/2012 Normal [facility] HEMATOLOGY Eosinophils 1.8 % 0.0 - 4.0 09/02/2012 Normal [facility] HEMATOLOGY Eosinophils # 0.2 K/CMM 0.0 - 0.5 09/02/2012 Normal [facility] HEMATOLOGY Basophils # 0.0 K/CMM 0.0 - 0.2 09/02/2012 Normal [facility] HEMATOLOGY Lymphocytes # 1.9 K/CMM 1.0 - 5.5 09/02/2012 Normal [facility] HEMATOLOGY Monocytes # 0.5 K/CMM 0.0 - 0.8 09/02/2012 Normal [facility] HEMATOLOGY MCH 31.6 pg 27.0 - 31.0 09/02/2012 HI [facility] HEMATOLOGY MCV 93.0 fL 81.0 - 99.0 09/02/2012 Normal [facility] HEMATOLOGY RDW 14.0 % 11.5 - 14.5 09/02/2012 Normal [facility] HEMATOLOGY MCHC 34.0 g/dL 32.0 - 36.0 09/02/2012 Normal [facility] HEMATOLOGY Platelet 382 K/CMM 133 - 450 09/02/2012 Normal [facility] HEMATOLOGY MPV 8.9 fL 7.4 - 10.4 09/02/2012 Normal [facility] HEMATOLOGY Hct 44.9 % 36.0 - 48.0 09/02/2012 Normal [facility] HEMATOLOGY WBC 9.4 K/CMM 3.7 - 10.4 09/02/2012 Normal [facility] HEMATOLOGY Hgb 15.3 g/dL 12.0 - 16.0 09/02/2012 Normal [facility] HEMATOLOGY RBC 4.83 M/CMM 4.20 - 5.40 09/02/2012 Normal [facility] BEDSIDE GLUCOSE TESTING Gluc POC Lifscn 142 mg/dL 70 - 99 06/26/2012 [place] 1Interpretive Data: Upper Reportable Limit: 200 mg/dL. [facility] CHEMISTRY Sodium Lvl 146 meq/L 135 - 145 06/26/2012 HI [facility] CHEMISTRY Calcium Lvl 8.1 mg/dL 8.5 - 10.5 06/26/2012 LOW [facility] CHEMISTRY CO2 28 meq/L 24 - 32 06/26/2012 Normal [facility] CHEMISTRY Chloride Lvl 108 meq/L 95 - 109 06/26/2012 Normal [facility] CHEMISTRY Potassium Lvl 4.0 meq/L 3.5 - 5.1 06/26/2012 Normal [facility] CHEMISTRY Albumin Lvl 2.4 g/dL 3.5 - 5.0 06/26/2012 LOW [facility] CHEMISTRY eGFR 48 mL/min/1.73m2 06/26/2012 NA 4Result Comment: The eGFR is calculated using the [...] from the National Kidney Disease Education Program (NKDEP) which additionally recommends that when the eGFR is used in patients with extremes of body mass index for purposes of drug dosing, the eGFR should be multiplied by the estimated BMI. [facility] CHEMISTRY Glucose Lvl 164 mg/dL 70 - 99 06/26/2012 [place] 7Interpretive Data: Adult reference range values reflect the clinical guidelines of the [place] [employer]. [facility] CHEMISTRY BUN 15 mg/dL 7 - 22 06/26/2012 Normal [facility] CHEMISTRY Creatinine Lvl 1.1 mg/dL 0.5 - 1.4 06/26/2012 Normal [facility] CHEMISTRY B/C Ratio 14 6 - 25 06/26/2012 Normal [facility] CHEMISTRY Globulin 2.9 g/dL 2.0 - 4.0 06/26/2012 Normal [facility] CHEMISTRY Total Protein 5.3 g/dL 6.4 - 8.4 06/26/2012 LOW [facility] CHEMISTRY Bili Total 0.7 mg/dL 0.2 - 1.3 06/26/2012 Normal [facility] CHEMISTRY Alk Phos 317 unit/L 39 - 136 06/26/2012 HI [facility] CHEMISTRY ALT 49 unit/L 0 - 65 06/26/2012 Normal [facility] CHEMISTRY A/G Ratio 0.8 0.7 - 1.6 06/26/2012 Normal [facility] CHEMISTRY AST 53 unit/L 0 - 37 06/26/2012 [facility] CHEMISTRY AGAP 14.0 meq/L 10.0 - 20.0 06/26/2012 Normal [facility] HEMATOLOGY Eosinophils # 0.2 K/CMM 0.0 - 0.5 06/26/2012 Normal [facility] HEMATOLOGY Basophils # 0.0 K/CMM 0.0 - 0.2 06/26/2012 Normal [facility] HEMATOLOGY Segs-Bands # 3.8 K/CMM 1.5 - 8.1 06/26/2012 Normal [facility] HEMATOLOGY Monocytes # 0.7 K/CMM 0.0 - 0.8 06/26/2012 Normal [facility] HEMATOLOGY Lymphocytes # 1.6 K/CMM 1.0 - 5.5 06/26/2012 Normal [facility] HEMATOLOGY Basophils 0.3 % 0.0 - 1.0 06/26/2012 Normal [facility] HEMATOLOGY Eosinophils 2.6 % 0.0 - 4.0 06/26/2012 Normal [facility] HEMATOLOGY Monocytes 10.5 % 2.0 - 12.0 06/26/2012 Normal [facility] HEMATOLOGY Segs 60.7 % 45.0 - 75.0 06/26/2012 Normal [facility] HEMATOLOGY Lymphocytes 25.9 % 20.0 - 40.0 06/26/2012 Normal [facility] HEMATOLOGY MPV 9.0 fL 7.4 - 10.4 06/26/2012 Normal [facility] HEMATOLOGY Platelet 203 K/CMM 133 - 450 06/26/2012 Normal [facility] HEMATOLOGY Hct 36.1 % 36.0 - 48.0 06/26/2012 Normal [facility] HEMATOLOGY MCH 31.8 pg 27.0 - 31.0 06/26/2012 [facility] HEMATOLOGY MCHC 34.1 g/dL 32.0 - 36.0 06/26/2012 Normal [facility] HEMATOLOGY RDW 13.9 % 11.5 - 14.5 06/26/2012 Normal [facility] HEMATOLOGY MCV 93.0 fL 81.0 - 99.0 06/26/2012 Normal [facility] HEMATOLOGY WBC 6.3 K/CMM 3.7 - 10.4 06/26/2012 Normal [facility] HEMATOLOGY RBC 3.88 M/CMM 4.20 - 5.40 06/26/2012 LOW [facility] HEMATOLOGY Hgb 12.3 g/dL 12.0 - 16.0 06/26/2012 Normal [facility] BEDSIDE GLUCOSE TESTING Gluc POC Lifscn 254 mg/dL 70 - 99 06/26/2012 [place] 2Interpretive Data: Upper Reportable Limit: 200 mg/dL. [facility] BEDSIDE GLUCOSE TESTING Gluc POC Lifscn 252 mg/dL 70 - 99 06/25/2012 [place] 3Interpretive Data: Upper Reportable Limit: 200 mg/dL. [facility] BEDSIDE GLUCOSE TESTING Comment1 Notify RN/ 06/25/2012 NA [facility] BEDSIDE GLUCOSE TESTING Comment1 Notify RN/ 06/25/2012 NA [facility] CHEMISTRY LDL 55 mg/dL 0 - 129 06/25/2012 Normal [facility] CHEMISTRY HDL 11 mg/dL >=35 06/25/2012 LOW [facility] CHEMISTRY Chol 102 mg/dL 120 - 200 06/25/2012 LOW [facility] CHEMISTRY CHD Risk 9.27 3.90 - 5.80 06/25/2012 HI [facility] CHEMISTRY Trig 182 mg/dL 0 - 200 06/25/2012 Normal [facility] CHEMISTRY AGAP 12.7 meq/L 10.0 - 20.0 06/25/2012 Normal [facility] CHEMISTRY Globulin 3.5 g/dL 2.0 - 4.0 06/25/2012 Normal [facility] CHEMISTRY B/C Ratio 15 6 - 25 06/25/2012 Normal [facility] CHEMISTRY A/G Ratio 0.6 0.7 - 1.6 06/25/2012 LOW [facility] CHEMISTRY eGFR 48 mL/min/1.73m2 06/25/2012 NA 5Result Comment: The eGFR is calculated using the [...] from the National Kidney Disease Education Program (NKDEP) which additionally recommends that when the eGFR is used in patients with extremes of body mass index for purposes of drug dosing, the eGFR should be multiplied by the estimated BMI. [facility] CHEMISTRY Albumin Lvl 2.2 g/dL 3.5 - 5.0 06/25/2012 LOW [facility] CHEMISTRY Calcium Lvl 8.2 mg/dL 8.5 - 10.5 06/25/2012 LOW [facility] CHEMISTRY CO2 24 meq/L 24 - 32 06/25/2012 Normal [facility] CHEMISTRY Chloride Lvl 110 meq/L 95 - 109 06/25/2012 [facility] CHEMISTRY Glucose Lvl 82 mg/dL 70 - 99 06/25/2012 Normal 8Interpretive Data: Adult reference range values reflect the clinical guidelines of the [place] [employer]. [facility] CHEMISTRY Potassium Lvl 3.7 meq/L 3.5 - 5.1 06/25/2012 Normal [facility] CHEMISTRY Creatinine Lvl 1.1 mg/dL 0.5 - 1.4 06/25/2012 Normal [facility] CHEMISTRY Sodium Lvl 143 meq/L 135 - 145 06/25/2012 Normal [facility] CHEMISTRY Bili Total 0.4 mg/dL 0.2 - 1.3 06/25/2012 Normal [facility] CHEMISTRY AST 53 unit/L 0 - 37 06/25/2012 [facility] CHEMISTRY Total Protein 5.7 g/dL 6.4 - 8.4 06/25/2012 LOW [facility] CHEMISTRY BUN 17 mg/dL 7 - 22 06/25/2012 Normal [facility] CHEMISTRY ALT 48 unit/L 0 - 65 06/25/2012 Normal [facility] CHEMISTRY Alk Phos 220 unit/L 39 - 136 06/25/2012 [facility] CHEMISTRY Magnesium Lvl 1.7 mg/dL 1.8 - 2.4 06/25/2012 LOW [facility] HEMATOLOGY Lymphocytes 17.6 % 20.0 - 40.0 06/25/2012 LOW [facility] HEMATOLOGY Eosinophils 1.0 % 0.0 - 4.0 06/25/2012 Normal [facility] HEMATOLOGY Segs-Bands # 4.5 K/CMM 1.5 - 8.1 06/25/2012 Normal [facility] HEMATOLOGY Basophils 0.5 % 0.0 - 1.0 06/25/2012 Normal [facility] HEMATOLOGY Monocytes 10.0 % 2.0 - 12.0 06/25/2012 Normal [facility] HEMATOLOGY Monocytes # 0.6 K/CMM 0.0 - 0.8 06/25/2012 Normal [facility] HEMATOLOGY Eosinophils # 0.1 K/CMM 0.0 - 0.5 06/25/2012 Normal [facility] HEMATOLOGY Lymphocytes # 1.1 K/CMM 1.0 - 5.5 06/25/2012 Normal [facility] HEMATOLOGY Basophils # 0.0 K/CMM 0.0 - 0.2 06/25/2012 Normal [facility] HEMATOLOGY Segs 70.9 % 45.0 - 75.0 06/25/2012 Normal [facility] HEMATOLOGY MPV 9.1 fL 7.4 - 10.4 06/25/2012 Normal [facility] HEMATOLOGY RDW 14.0 % 11.5 - 14.5 06/25/2012 Normal [facility] HEMATOLOGY Platelet 190 K/CMM 133 - 450 06/25/[address] [facility] MCHC 34.2 g/dL 32.0 - 36.0 06/25/2012 Normal [facility] HEMATOLOGY MCH 31.9 pg 27.0 - 31.0 06/25/2012 HI [facility] HEMATOLOGY Hgb 11.6 g/dL 12.0 - 16.0 06/25/[address] [facility] Hct 34.0 % 36.0 - 48.0 06/25/2012 LOW [facility] HEMATOLOGY WBC 6.4 K/CMM 3.7 - 10.4 06/25/2012 Normal [facility] HEMATOLOGY RBC 3.65 M/CMM 4.20 - 5.40 06/25/2012 LOW [facility] HEMATOLOGY MCV 93.1 fL 81.0 - 99.0 06/25/2012 Normal [facility] IMMUNOLOGY EBV VCA IgM 0.03 IV <=0.89 06/25/2012 Normal 10Interpretive Data: Index Value Results Interpretation --------- <=0.90 Negative No detectable IgM Antibody. 0.90 - 1.09 Equivocal Repeat testing suggested in 10-14 days. >=1.10 Positive Significant level of detectable VCA IgM Antibody, indicative of current or recent infection. [facility] IMMUNOLOGY ROGELIO Negative (06/25/2012 07:12:00) Negative 06/25/2012 Normal [facility] CMV IgG Reactive *ABN* (06/25/2012 07:12:00) Non Reactive 06/25/2012 ABN [facility] IMMUNOLOGY Hep Bs Ag Negative *NA* (06/25/2012 07:12:00) Negative 06/25/2012 NA [facility] IMMUNOLOGY Hep C Ab Negative *NA* (06/25/2012 07:12:00) Negative 06/25/2012 NA [facility] IMMUNOLOGY Hep B Core IgM Negative *NA* (06/25/2012 07:12:00) Negative 06/25/2012 [facility] IMMUNOLOGY Hep A IgM Negative *NA* (06/25/2012 07:12:00) Negative 06/25/2012 [facility] BEDSIDE GLUCOSE TESTING Comment1 Notify SAULO/ 06/25/2012 NA [facility] CHEMISTRY Troponin-I null 0.00 - 0.40 06/24/2012 Normal [facility] CHEMISTRY Total CK 65 unit/L 12 - 06/24/2012 Normal [facility] CHEMISTRY Troponin-I null 0.00 - 0.40 06/24/2012 Normal [facility] CHEMISTRY Total CK 60 unit/L - 06/24/2012 Normal [facility] CHEMISTRY Magnesium Lvl 1.7 mg/dL 1.8 - 2.4 06/24/2012 LOW [facility] CHEMISTRY AST 75 unit/L 0 - 37 06/24/2012 [facility] CHEMISTRY Bili Total 0.8 mg/dL 0.2 - 1.3 06/24/2012 Normal [facility] CHEMISTRY ALT 63 unit/L 0 - 65 06/24/2012 Normal [facility] CHEMISTRY Total Protein 5.5 g/dL 6.4 - 8.4 06/24/2012 LOW [facility] CHEMISTRY Alk Phos 252 unit/L 39 - 136 06/24/2012 HI [facility] CHEMISTRY Calcium Lvl 8.0 mg/dL 8.5 - 10.5 06/24/2012 LOW [facility] CHEMISTRY Albumin Lvl 2.7 g/dL 3.5 - 5.0 06/24/2012 LOW [facility] CHEMISTRY CO2 25 meq/L 24 - 32 06/24/2012 Normal [facility] CHEMISTRY Chloride Lvl 105 meq/L 95 - 109 06/24/2012 Normal [facility] CHEMISTRY Sodium Lvl 139 meq/L 135 - 145 06/24/2012 Normal [facility] CHEMISTRY Potassium Lvl 4.2 meq/L 3.5 - 5.1 06/24/2012 Normal [facility] CHEMISTRY Creatinine Lvl 1.5 mg/dL 0.5 - 1.4 06/24/2012 [facility] CHEMISTRY Glucose Lvl 228 mg/dL 70 - 99 06/24/2012 [place] 9Interpretive Data: Adult reference range values reflect the clinical guidelines of the [place] [employer]. [facility] CHEMISTRY BUN 28 mg/dL 7 - 22 06/24/2012 [facility] CHEMISTRY eGFR 33 mL/min/1.73m2 06/24/2012 NA 6Result Comment: The eGFR is calculated using the [...] from the National Kidney Disease Education Program (NKDEP) which additionally recommends that when the eGFR is used in patients with extremes of body mass index for purposes of drug dosing, the eGFR should be multiplied by the estimated BMI. [facility] CHEMISTRY Globulin 2.8 g/dL 2.0 - 4.0 06/24/2012 Normal [facility] CHEMISTRY A/G Ratio 1.0 0.7 - 1.6 06/24/2012 Normal [facility] CHEMISTRY AGAP 13.2 meq/L 10.0 - 20.0 06/24/2012 Normal [facility] CHEMISTRY B/C Ratio 19 6 - 25 06/24/2012 Normal [facility] CHEMISTRY Phosphorus 2.1 mg/dL 2.5 - 4.5 06/24/2012 LOW [facility] HEMATOLOGY Lymphocytes 8.9 % 20.0 - 40.0 06/24/2012 LOW [facility] HEMATOLOGY Segs 83.1 % 45.0 - 75.0 06/24/2012 [facility] HEMATOLOGY Eosinophils 0.3 % 0.0 - 4.0 06/24/2012 Normal [facility] HEMATOLOGY Monocytes 7.5 % 2.0 - 12.0 06/24/2012 Normal [facility] HEMATOLOGY Segs-Bands # 6.5 K/CMM 1.5 - 8.1 06/24/2012 Normal [facility] HEMATOLOGY Monocytes # 0.6 K/CMM 0.0 - 0.8 06/24/2012 Normal [facility] HEMATOLOGY Lymphocytes # 0.7 K/CMM 1.0 - 5.5 06/24/2012 LOW [facility] HEMATOLOGY Basophils # 0.0 K/CMM 0.0 - 0.2 06/24/2012 Normal [facility] HEMATOLOGY Eosinophils # 0.0 K/CMM 0.0 - 0.5 06/24/2012 Normal [facility] HEMATOLOGY Basophils 0.2 % 0.0 - 1.0 06/24/2012 Normal [facility] HEMATOLOGY WBC 7.8 K/CMM 3.7 - 10.4 06/24/2012 Normal [facility] HEMATOLOGY MCHC 33.0 g/dL 32.0 - 36.0 06/24/2012 Normal [facility] HEMATOLOGY Platelet 178 K/CMM 133 - 450 06/24/2012 Normal [facility] HEMATOLOGY RDW 13.6 % 11.5 - 14.5 06/24/2012 Normal [facility] HEMATOLOGY MCV 94.6 fL 81.0 - 99.0 06/24/2012 Normal [facility] HEMATOLOGY MCH 31.2 pg 27.0 - 31.0 06/24/2012 HI [facility] HEMATOLOGY RBC 3.85 M/CMM 4.20 - 5.40 06/24/2012 LOW [facility] HEMATOLOGY Hgb 12.0 g/dL 12.0 - 16.0 06/24/2012 Normal [facility] HEMATOLOGY Hct 36.4 % 36.0 - 48.0 06/24/2012 Normal [facility] HEMATOLOGY MPV 8.9 fL 7.4 - 10.4 06/24/2012 Normal [facility] Microbiology Culture: Urine 06/24/2012 [facility] URINALYSIS UA Mucus Few /LPF *NA* (06/23/2012 17:36:00) None Seen 06/23/2012 NA [facility] URINALYSIS UA Urobilinogen 2.0 mg/dL 0.1 - 1.0 06/23/2012 HI [facility] URINALYSIS UA Ketones Negative mg/dL *NA* (06/23/2012 17:36:00) Negative 06/23/2012 NA [facility] URINALYSIS UA Protein Negative mg/dL (06/23/2012 17:36:00) Negative 06/23/2012 Normal [facility] URINALYSIS UA Blood Small *ABN* (06/23/2012 17:36:00) Negative 06/23/2012 ABN [facility] URINALYSIS UA Glucose 500 mg/dL *ABN* (06/23/2012 17:36:00) Negative 06/23/2012 ABN [facility] URINALYSIS UA RBC 4 /HPF 0 - 2 06/23/2012 HI [facility] URINALYSIS UA Nitrite Negative (06/23/2012 17:36:00) Negative 06/23/2012 Normal [facility] URINALYSIS UA Bacteria Occasional /HPF *NA* (06/23/2012 17:36:00) None Seen 06/23/2012 [facility] URINALYSIS UA Bili Negative *NA* (06/23/2012 17:36:00) Negative 06/23/2012 [facility] URINALYSIS UA Leuk Est Small *ABN* (06/23/2012 17:36:00) Negative 06/23/2012 ABN [facility] URINALYSIS UA WBC 20 /HPF 0 - 5 06/23/2012 [facility] URINALYSIS UA Sq Epi Few /LPF *NA* (06/23/2012 17:36:00) Few 06/23/2012 NA [facility] URINALYSIS UA pH 5.0 5.0 - 8.0 06/23/2012 Normal [facility] URINALYSIS UA Spec Grav 1.008 <=1.030 06/23/2012 Normal [facility] URINALYSIS UA Turbidity Slight *ABN* (06/23/2012 17:36:00) Clear 06/23/2012 ABN [facility] URINALYSIS UA Color Yellow *NA* (06/23/2012 17:36:00) Yellow 06/23/2012 NA [facility] URINALYSIS UA Color Jayne 06/22/2012 [facility] URINALYSIS UA Urobilinogen <=1.0 mg/dL
*NA*
(06/22/2012 10:30:00) <sup> </sup> 0.1 - 1.0 06/22/2012 [facility] URINALYSIS UA Turbidity Marked *ABN* (06/22/2012 10:30:00) Clear 06/22/2012 ABN [facility] URINALYSIS UA Protein 100 mg/dL *ABN* (06/22/2012 10:30:00) Negative 06/22/2012 ABN [facility] URINALYSIS UA pH 5.0 5.0 - 8.0 06/22/2012 Normal [facility] URINALYSIS UA Spec Grav 1.012 <=1.030 06/22/2012 Normal [facility] URINALYSIS UA Bili Negative *NA* (06/22/2012 10:30:00) Negative 06/22/2012 [facility] URINALYSIS UA Ketones Negative mg/dL *NA* (06/22/2012 10:30:00) Negative 06/22/2012 [facility] URINALYSIS UA Glucose 50 mg/dL *ABN* (06/22/2012 10:30:00) Negative 06/22/2012 ABN [facility] URINALYSIS UA Nitrite Positive *ABN* (06/22/2012 10:30:00) Negative 06/22/2012 ABN [facility] URINALYSIS UA Blood Large *ABN* (06/22/2012 10:30:00) Negative 06/22/2012 ABN [facility] URINALYSIS UA Mucus Few /LPF *NA* (06/22/2012 10:30:00) None Seen 06/22/2012 [facility] URINALYSIS UA Hyal Cast 3 /LPF 0 - 2 06/22/2012 [facility] URINALYSIS UA Bacteria Few /HPF *NA* (06/22/2012 10:30:00) None Seen 06/22/2012 [facility] URINALYSIS UA RBC 20 /HPF 0 - 2 06/22/2012 [facility] URINALYSIS UA Sq Epi Many /LPF *ABN* (06/22/2012 10:30:00) Few 06/22/2012 ABN [facility] URINALYSIS UA Leuk Est Large *ABN* (06/22/2012 10:30:00) Negative 06/22/2012 ABN [facility] URINALYSIS UA WBC 69 /HPF 0 - 5 06/22/2012 [facility] CHEMISTRY CK MB Index null 0.0 - 2.5 06/22/2012 Normal [facility] CHEMISTRY Total CK 53 unit/L 12 - 191 06/22/2012 Normal [facility] CHEMISTRY CK MB null 0.5 - 3.6 06/22/2012 Normal [facility] CHEMISTRY Glucose Lvl 259 mg/dL 70 - 99 06/22/2012 [place] 2Interpretive Data: Adult reference range values reflect the clinical guidelines of the [place] [employer]. [facility] CHEMISTRY BUN 27 mg/dL 7 - 22 06/22/2012 HI [facility] CHEMISTRY AGAP 13.7 meq/L 10.0 - 20.0 06/22/2012 Normal [facility] CHEMISTRY B/C Ratio 17 6 - 25 06/22/2012 Normal [facility] CHEMISTRY Albumin Lvl 3.3 g/dL 3.5 - 5.0 06/22/2012 LOW [facility] CHEMISTRY CO2 23 meq/L 24 - 32 06/22/2012 LOW [facility] CHEMISTRY eGFR 31 mL/min/1.73m2 06/22/2012 NA 1Result Comment: The eGFR is calculated using [...] from the National Kidney Disease Education Program (NKDEP) which additionally recommends that when the eGFR is used in patients with extremes of body mass index for purposes of drug dosing, the eGFR should be multiplied by the estimated BMI. [facility] CHEMISTRY Potassium Lvl 3.7 meq/L 3.5 - 5.1 06/22/2012 Normal [facility] CHEMISTRY Chloride Lvl 105 meq/L 95 - 109 06/22/2012 Normal [facility] CHEMISTRY Calcium Lvl 9.1 mg/dL 8.5 - 10.5 06/22/2012 Normal [facility] CHEMISTRY Sodium Lvl 138 meq/L 135 - 145 06/22/2012 Normal [facility] CHEMISTRY Creatinine Lvl 1.6 mg/dL 0.5 - 1.4 06/22/2012 [facility] CHEMISTRY Bili Total 1.5 mg/dL 0.2 - 1.3 06/22/2012 [facility] CHEMISTRY Alk Phos 222 unit/L 39 - 136 06/22/2012 [facility] CHEMISTRY ALT 44 unit/L 0 - 65 06/22/2012 Normal [facility] CHEMISTRY Total Protein 7.4 g/dL 6.4 - 8.4 06/22/2012 Normal [facility] CHEMISTRY A/G Ratio 0.8 0.7 - 1.6 06/22/2012 Normal [facility] CHEMISTRY Globulin 4.1 g/dL 2.0 - 4.0 06/22/2012 [facility] CHEMISTRY AST 39 unit/L 0 - 37 06/22/2012 [facility] CHEMISTRY Lipase Lvl 101 unit/L 73 - 393 06/22/2012 Normal [facility] HEMATOLOGY Segs-Bands # 12.3 K/CMM 1.5 - 8.1 06/22/2012 [facility] HEMATOLOGY Lymphocytes # 0.8 K/CMM 1.0 - 5.5 06/22/2012 LOW [facility] HEMATOLOGY Basophils 0.1 % 0.0 - 1.0 06/22/2012 Normal [facility] HEMATOLOGY Monocytes # 0.6 K/CMM 0.0 - 0.8 06/22/2012 Normal [facility] HEMATOLOGY Eosinophils # 0.0 K/CMM 0.0 - 0.5 06/22/2012 Normal [facility] HEMATOLOGY Basophils # 0.0 K/CMM 0.0 - 0.2 06/22/2012 Normal [facility] HEMATOLOGY RBC Morph Normal (06/22/2012 09:00:00) 06/22/2012 Normal [facility] HEMATOLOGY Segs 89.7 % 45.0 - 75.0 06/22/2012 HI [facility] HEMATOLOGY Plt Morph Normal (06/22/2012 09:00:00) 06/22/2012 Normal [facility] HEMATOLOGY Lymphocytes 5.6 % 20.0 - 40.0 06/22/2012 LOW [facility] HEMATOLOGY Monocytes 4.5 % 2.0 - 12.0 06/22/2012 Normal [facility] HEMATOLOGY Eosinophils 0.1 % 0.0 - 4.0 06/22/2012 Normal [facility] HEMATOLOGY RDW 13.9 % 11.5 - 14.5 06/22/2012 Normal [facility] HEMATOLOGY MCHC 34.2 g/dL 32.0 - 36.0 06/22/2012 Normal [facility] HEMATOLOGY Platelet 209 K/CMM 133 - 450 06/22/2012 Normal [facility] HEMATOLOGY MPV 9.0 fL 7.4 - 10.4 06/22/2012 Normal [facility] HEMATOLOGY Hgb 13.8 g/dL 12.0 - 16.0 06/22/2012 Normal [facility] HEMATOLOGY Hct 40.3 % 36.0 - 48.0 06/22/2012 Normal [facility] HEMATOLOGY MCV 93.7 fL 81.0 - 99.0 06/22/2012 Normal [facility] HEMATOLOGY MCH 32.0 pg 27.0 - 31.0 06/22/2012 [facility] HEMATOLOGY RBC 4.30 M/CMM 4.20 - 5.40 06/22/2012 Normal [facility] HEMATOLOGY WBC 13.8 K/CMM 3.7 - 10.4 06/22/2012 [facility] Vital Signs Vital Sign Value Date Comments Source Systolic (mm Hg) 132 12/09/[facility] Diastolic (mm Hg) 60 12/09/2017 [facility] Weight 101.818 12/09/2017 [facility] Heart Rate 53 12/09/2017 [facility] Height 157.48 cm 12/09/2017 [facility] BMI Calculated 41.06 12/09/2017 [facility] Systolic (mm Hg) 115 08/05/2017 [facility] Diastolic (mm Hg) 72 08/05/2017 [facility] Heart Rate 69 08/05/2017 [facility] BMI Calculated 39.04 08/05/2017 [facility] Weight 96.818 08/05/2017 [facility] Height 157.48 cm 08/05/2017 [facility] Systolic (mm Hg) 148 04/09/2016 [facility] Diastolic (mm Hg) 72 04/09/2016 [facility] Respitory Rate 16 04/09/2016 [facility] Heart Rate 91 04/09/2016 [facility] Temperature Oral (F) 98.1 F 04/09/2016 [facility] Heart Rate 93 04/09/2016 [facility] Temperature Oral (F) 97.8 F 04/09/2016 [facility] Respitory Rate 16 04/09/2016 [facility] Systolic (mm Hg) 136 04/09/2016 [facility] Diastolic (mm Hg) 72 04/09/2016 [facility] Temperature Oral (F) 98.2 F 04/09/2016 [facility] Systolic (mm Hg) 130 04/09/2016 [facility] Diastolic (mm Hg) 72 04/09/2016 [facility] Respitory Rate 16 04/09/2016 [facility] Heart Rate 71 04/09/2016 [facility] Height 157.48 cm 04/07/2016 [facility] BMI Calculated 39.96 04/07/2016 [facility] Weight 99.091 04/07/2016 [facility] BMI Calculated 35.58 04/07/2016 [facility] Weight 100 04/07/2016 [facility] Height 167.64 cm 04/07/2016 [facility] Respitory Rate 20 04/07/2016 [facility] Systolic (mm Hg) 137 04/07/2016 [facility] Diastolic (mm Hg) 54 04/07/2016 [facility] Heart Rate 90 04/07/2016 [facility] Temperature Oral (F) 98.6 F 04/07/2016 [facility] Height 157.48 cm 04/06/2016 [facility] Weight 99.091 04/06/2016 [facility] BMI Calculated 39.96 04/06/2016 [facility] Respitory Rate 18 04/06/2016 [facility] Heart Rate 78 04/06/2016 [facility] Systolic (mm Hg) 178 04/06/2016 [facility] Diastolic (mm Hg) 77 04/06/2016 [facility] Temperature Oral (F) 98.3 F 04/06/2016 [facility] Systolic (mm Hg) 156 10/01/2015 [facility] Diastolic (mm Hg) 60 10/01/2015 [facility] Respitory Rate 18 10/01/2015 [facility] Temperature Oral (F) 98.2 F 10/01/2015 [facility] Heart Rate 74 10/01/2015 [facility] Heart Rate 63 10/01/2015 [facility] Respitory Rate 21 10/01/2015 [facility] Systolic (mm Hg) 161 10/01/2015 [facility] Diastolic (mm Hg) 65 10/01/2015 [facility] Systolic (mm Hg) 166 10/01/2015 [facility] Diastolic (mm Hg) 83 10/01/2015 [facility] Weight 97.273 10/01/2015 [facility] BMI Calculated 39.22 10/01/2015 [facility] Height 157.48 cm 10/01/2015 [facility] Temperature Oral (F) 97.6 F 10/01/2015 [facility] Respitory Rate 17 10/01/2015 [facility] Heart Rate 74 10/01/2015 [facility] Temperature Oral (F) 98.0 F 09/22/2015 [facility] Respitory Rate 18 09/22/2015 [facility] Systolic (mm Hg) 150 09/22/2015 [facility] Diastolic (mm Hg) 84 09/22/2015 [facility] Respitory Rate 18 09/22/2015 [facility] Systolic (mm Hg) 144 09/22/2015 [facility] Diastolic (mm Hg) 61 09/22/2015 [facility] Systolic (mm Hg) 140 09/22/2015 [facility] Diastolic (mm Hg) 84 09/22/2015 [facility] Respitory Rate 23 09/22/2015 [facility] Height 157.48 cm 09/22/2015 [facility] BMI Calculated 39.22 09/22/2015 [facility] Weight 97.273 09/22/2015 [facility] Temperature Oral (F) 98.2 F 09/22/2015 [facility] Heart Rate 90 09/22/2015 [facility] Respitory Rate 18 05/02/2015 [facility] Systolic (mm Hg) 154 05/02/2015 [facility] Diastolic (mm Hg) 69 05/02/2015 [facility] Heart Rate 66 05/02/2015 [facility] Temperature Oral (F) 98.0 F 05/02/2015 [facility] Height 157.48 cm 05/02/2015 [facility] BMI Calculated 39.41 05/02/2015 [facility] Weight 97.727 05/02/2015 [facility] Respitory Rate 16 05/02/2015 [facility] Heart Rate 70 05/02/2015 [facility] Systolic (mm Hg) 150 05/02/2015 [facility] Diastolic (mm Hg) 66 05/02/2015 [facility] Temperature Oral (F) 97.7 F 05/02/2015 [facility] Temperature Oral (F) 98.1 F 03/01/2015 [facility] Heart Rate 108 03/01/2015 [facility] Respitory Rate 18 03/01/2015 [facility] Systolic (mm Hg) 151 03/01/2015 [facility] Diastolic (mm Hg) 51 03/01/2015 [facility] Temperature Oral (F) 98.1 F 03/01/2015 [facility] Systolic (mm Hg) 133 03/01/2015 [facility] Diastolic (mm Hg) 68 03/01/2015 [facility] Respitory Rate 18 03/01/2015 [facility] Heart Rate 66 03/01/2015 [facility] Respitory Rate 16 03/01/2015 [facility] Heart Rate 75 03/01/2015 [facility] Systolic (mm Hg) 150 03/01/2015 [facility] Diastolic (mm Hg) 69 03/01/2015 [facility] Temperature Oral (F) 97.7 F 03/01/2015 [facility] BMI Calculated 37.94 02/27/2015 [facility] Weight 94.091 02/27/2015 [facility] Height 157.48 cm 02/27/2015 [facility] Height 157.48 cm 02/27/2015 [facility] BMI Calculated 37.94 02/27/2015 [facility] Weight 94.091 02/27/2015 [facility] BMI Calculated 37.94 02/27/2015 [facility] Weight 94.091 02/27/2015 [facility] Height 157.48 cm 02/27/2015 [facility] Systolic (mm Hg) 146 10/10/2014 [facility] Diastolic (mm Hg) 64 10/10/2014 [facility] Respitory Rate 18 10/10/2014 [facility] Respitory Rate 21 10/10/2014 [facility] Systolic (mm Hg) 148 10/10/2014 [facility] Diastolic (mm Hg) 78 10/10/2014 [facility] Respitory Rate 16 10/10/2014 [facility] Systolic (mm Hg) 171 10/10/2014 [facility] Diastolic (mm Hg) 78 10/10/2014 [facility] Heart Rate 72 10/10/2014 [facility] Temperature Oral (F) 97.6 F 10/10/2014 [facility] BMI Calculated 37.39 10/10/2014 [facility] Weight 92.727 10/10/2014 [facility] Height 157.48 cm 10/10/2014 [facility] Heart Rate 70 08/23/2014 [facility] Temperature Oral (F) 98.1 F 08/23/2014 [facility] Diastolic (mm Hg) 79 08/23/2014 [facility] Systolic (mm Hg) 162 08/23/2014 [facility] Diastolic (mm Hg) 64 08/23/2014 [facility] Systolic (mm Hg) 167 08/23/2014 [facility] Temperature Oral (F) 98.1 F 08/23/2014 [facility] Respitory Rate 18 08/23/2014 [facility] Heart Rate 68 08/23/2014 [facility] Respitory Rate 18 08/23/2014 [facility] Heart Rate 74 08/23/2014 [facility] Diastolic (mm Hg) 76 08/23/2014 [facility] Systolic (mm Hg) 163 08/23/2014 [facility] Temperature Oral (F) 98.1 F 08/22/2014 [facility] Respitory Rate 18 08/22/2014 [facility] BMI Calculated 37.94 08/22/2014 [facility] Weight 94.091 08/22/2014 [facility] Height 157.48 cm 08/22/2014 [facility] Diastolic (mm Hg) 60 05/16/2014 [facility] Respitory Rate 16 05/16/2014 [facility] Heart Rate 80 05/16/2014 [facility] Systolic (mm Hg) 159 05/16/2014 [facility] Systolic (mm Hg) 159 05/16/2014 [facility] Diastolic (mm Hg) 60 05/16/2014 [facility] Heart Rate 88 05/16/2014 [facility] Respitory Rate 16 05/16/2014 [facility] Respitory Rate 18 05/16/2014 [facility] Heart Rate 91 05/16/2014 [facility] Diastolic (mm Hg) 68 05/16/2014 [facility] Systolic (mm Hg) 148 05/16/2014 [facility] Temperature Oral (F) 98.1 F 05/16/2014 [facility] Weight 92.727 05/16/2014 [facility] BMI Calculated 37.39 05/16/2014 [facility] Height 157.48 cm 05/16/2014 [facility] Systolic (mm Hg) 160 01/09/2013 [facility] Diastolic (mm Hg) 87 01/09/2013 [facility] Respitory Rate 18 01/09/2013 [facility] Temperature Oral (F) 97.8 F 01/09/2013 [facility] Heart Rate 90 01/09/2013 [facility] Diastolic (mm Hg) 80 01/09/2013 [facility] Systolic (mm Hg) 150 01/09/2013 [facility] Respitory Rate 18 01/09/2013 [facility] Temperature Oral (F) 97.4 F 01/09/2013 [facility] Heart Rate 96 01/09/2013 [facility] Respitory Rate 18 01/09/2013 [facility] Systolic (mm Hg) 149 01/09/2013 [facility] Temperature Oral (F) 97.3 F 01/09/2013 [facility] Heart Rate 97 01/09/2013 [facility] Diastolic (mm Hg) 81 01/09/2013 [facility] Height 157.48 cm 01/08/2013 [facility] Weight 93.636 01/08/2013 [facility] Weight 90.455 01/08/2013 [facility] Height 157.48 cm 01/08/2013 [facility] Heart Rate 90 09/03/2012 [facility] Respitory Rate 20 09/03/2012 [facility] Temperature Oral (F) 98.4 F 09/03/2012 [facility] Systolic (mm Hg) 149 09/03/2012 [facility] Diastolic (mm Hg) 81 09/03/2012 [facility] Temperature Oral (F) 97.8 F 09/03/2012 [facility] Respitory Rate 20 09/03/2012 [facility] Heart Rate 78 09/03/2012 [facility] Systolic (mm Hg) 151 09/03/2012 [facility] Diastolic (mm Hg) 84 09/03/2012 [facility] Respitory Rate 16 09/03/2012 [facility] Heart Rate 86 09/03/2012 [facility] Temperature Oral (F) 97.6 F 09/03/2012 [facility] Diastolic (mm Hg) 83 09/03/2012 [facility] Systolic (mm Hg) 157 09/03/2012 [facility] Height 157.48 cm 09/02/2012 [facility] Weight 92.500 09/02/2012 [facility] Height 157.48 cm 09/02/2012 [facility] Weight 92.727 09/02/2012 [facility] Respitory Rate 20 06/26/2012 [facility] Temperature Oral (F) 97.8 F 06/26/2012 [facility] Diastolic (mm Hg) 87 06/26/2012 [facility] Heart Rate 88 06/26/2012 [facility] Systolic (mm Hg) 150 06/26/2012 [facility] Respitory Rate 18 06/26/2012 [facility] Respitory Rate 18 06/26/2012 [facility] Temperature Oral (F) 98.0 F 06/26/2012 [facility] Heart Rate 70 06/26/2012 [facility] Systolic (mm Hg) 127 06/26/2012 [facility] Diastolic (mm Hg) 82 06/26/2012 [facility] Diastolic (mm Hg) 75 06/26/2012 [facility] Systolic (mm Hg) 123 06/26/2012 [facility] Heart Rate 72 06/26/2012 [facility] Temperature Oral (F) 98.1 F 06/26/2012 [facility] Weight 95.000 06/23/2012 [facility] Height 177.80 cm 06/23/2012 [facility] Height 157.48 cm 06/22/2012 [facility] Weight 95.000 06/22/2012 [facility] Encounters Location Location Details Encounter Type Encounter Number Reason For Visit Attending Provider ADM Date DC Date Status Source [facility] Emergency [id number] HARI GEORGE 06/22/2012 06/22/2012 Active [facility] Inpatient [id number] TAINAO MOUGDIANA 06/23/2012 06/26/2012 Active [facility] OU [id number] REACTIVE AIRWAY, WHEEZING, PNEUMONIA BRANDO ROSANNA 09/02/2012 09/03/2012 Active [facility] Inpatient [id number] ZENOBIA BUENROSTRO 01/08/2013 01/09/2013 Active [facility] [id number] Bradley Abraham 05/16/2014 05/16/2014 [facility] [id number] Jaxsongalileo BaezMorel 08/22/2014 08/23/2014 [facility] [id number] Cat Cortes 10/10/2014 10/10/2014 [facility] Outpatient [id number] KELLY NBA 02/14/2015 Active [facility] Inpatient [id number] Taso Mougouris 02/27/2015 03/01/2015 [facility] [id number] Debby Beckfordusar 05/02/2015 05/02/2015 [facility] Outpatient [id number] KELLY SHIVER 05/10/2015 Active [facility] Outpatient [id number] KELLY SHIVER 08/10/2015 [facility] [id number] Rishi Richards 09/22/2015 09/22/2015 [facility] [id number] Jaxson Morel 10/01/2015 10/01/2015 [facility] Outpatient [id number] KELLY SHIVER 11/09/2015 Active [facility] Outpatient [id number] KELLY SHIVER 02/08/2016 Active [facility] [place] [facility] [id number] Jair Amadorel 03/16/2016 03/17/2016 [facility] Emergency [id number] Martín Micheal 04/06/2016 04/07/2016 [facility] Inpatient [id number] Aviva Cruz 04/07/2016 04/09/2016 [facility] Outpatient [id number] Jair Moeller 04/16/2016 04/17/2016 [facility] Outpatient [id number] KELLY SHIVER 05/10/2016 Active [facility] [place] [facility] [id number] Kelly Shiver 05/10/2016 05/11/2016 [facility] [place] Out[facility] [id number] KELLY SHIVER 08/06/2016 Active [facility] Outpatient [id number] KELLY SHIVER 11/05/2016 Active [facility] [place] [facility] [id number] Dewey Moilna 01/09/2017 01/10/2017 [facility] [place] Outpatient [id number] KELLY SHIVER 02/04/2017 Active [facility] Outpatient [id number] KELLY SHIVER 05/07/2017 Active [facility] Internal Medicine TM Phone Message [id number] 07/09/2017 07/11/2017 [facility] Internal Medicine TM Phone Message [id number] 07/26/2017 07/28/2017 [facility] Outpatient [id number] KELLY SHIVER 08/05/2017 Active [facility] Internal Medicine [facility] Outpatient [id number] Kelly Shiver 08/05/2017 08/06/2017 [facility] Internal Medicine [facility] Phone Message [id number] 09/09/2017 09/11/2017 [facility] Internal Medicine [facility] Phone Message [id number] 10/28/2017 10/30/2017 [facility] Internal Medicine [facility] Phone Message [id number] 11/08/2017 11/10/2017 [facility] Internal Medicine [facility] Phone Message [id number] 11/12/2017 11/14/2017 [facility] Internal Medicine [facility] Phone Message [id number] 11/20/2017 11/22/2017 [facility] Outpatient [id number] KELLY SHIVER 12/09/2017 Active [facility] Internal Medicine [facility] Phone Message [id number] 12/09/2017 12/11/2017 [facility] Internal Medicine [facility] Outpatient [id number] Kelly Shiver 12/09/2017 12/10/2017 [facility] Internal Medicine [facility] Phone Message [id number] 12/18/2017 12/20/2017 [facility] Outpatient [id number] KELLY SHIVER 03/13/2018 Active [facility] Outpatient [id number] KELLY SHIVER 04/09/2018 Active [facility] Outpatient [id number] KELLY SHIVER 05/23/2018 Active [facility] Outpatient [id number] KELLY SHIVER 07/08/2018 Active [facility] Procedures Procedure Code Date Perfomer Comments Source Hysterectomy [id number] 06/24/2017 [facility] Eye examination<sup>1</sup> [id number] 11/16/2016 Diabetic Eye Exam-Normal exam. [facility] Arthroscopy of knee with meniscus repair [id number] [facility] Cat[facility]act [facility] [id number] [facility] Hernia repair [id number] [facility] Arthroscopy of knee with meniscus repair [id number] [facility] Cataract surgery [id number] [facility] Hernia repair [id number] [facility] Arthroscopy of knee with meniscus repair [id number] [facility] Cataract surgery [id number] [facility] Hernia repair [id number] [facility] Arthroscopy of knee with meniscus repair [id number] [facility] [place] Cataract surgery [id number] [facility] [place] Hernia repair [id number] [facility] [place] Arthroscopy of knee with meniscus repair [id number] [facility] [place] Cataract surgery [id number] [facility] [place] Hernia repair [id number] [facility] [place] Arthroscopy of knee with meniscus repair [id number] [facility] Cataract surgery [id number] [facility] [place] Hernia repair [id number] [facility]
--- OUTSIDE RECORDS SUMMARY | 2018-05-25 13:48 | XMS REPORT | Summary of Care ---
Author Organization Unknown Address Unknown Phone Unavailable Encounter NAVEED Garland(LILIA) [id number] Date(s): 05/16/14 - 05/16/14 [facility] [address] Discharge Diagnosis: Acute Bronchitis Discharge Disposition: Home Physician Attending: Bradley Abraham MD Reason for Visit CONGESTED Vital Signs 1 2 3 Most recent to oldest [Reference Range]: 157.48 cm (05/16/14 12:02 PM) Height 98.1 DegF (05/16/14 12:02 PM) Temperature Oral [96.4-99.1 DegF] 159 mmHg *HI* (05/16/14 5:27 PM) 159 mmHg *HI* (05/16/14 4:20 PM) 148 mmHg *HI* (05/16/14 12:02 PM) Systolic Blood Pressure [90-140 mmHg] 60 mmHg (05/16/14 5:27 PM) 60 mmHg (05/16/14 4:20 PM) 68 mmHg (05/16/14 12:02 PM) Diastolic Blood Pressure [60-90 mmHg] 16 BRMIN (05/16/14 5:27 PM) 16 BRMIN (05/16/14 4:20 PM) 18 BRMIN (05/16/14 1:08 PM) Respiratory Rate [14-20 BRMIN] 80 bpm (05/16/14 5:27 PM) 88 bpm (05/16/14 4:20 PM) 91 bpm (05/16/14 12:02 PM) Peripheral Pulse Rate [60-100 bpm] 92.727 kg (05/16/14 12:02 PM) Weight 37.39 m2 (05/16/14 12:02 PM) Body Mass Index Problem List Condition Effective Dates Status Health Status Informant Arthritis(Confirmed) Resolved Diabetes Active mellitus(Confirmed) Hypertension(Confirm Active ed) Pneumonia(Confirmed) Resolved Allergies, Adverse Reactions, Alerts Substance Reaction Severity Status NKDA Active Medications albuterol-ipratropium 2.5-0.5 mg inhalation solution 3 mL, Route: NEB, Drug Form: SOLN, Dosing Weight 92.727, kg, ONCE, STAT, Start d ate: 05/16/14 12:48:00, Stop date: 05/16/14 12:48:00 Start Date: 05/16/14 Stop Date: 05/16/14 Status: Completed Saline Flush 0.9% 10 mL, Route: IVP, Drug Form: INJ, Dosing Weight 92.727, kg, PRN, PRN Line Flush , Start date: 05/16/14 12:48:00, Duration: 30 day, Stop date: 06/15/14 11:47:00 Start Date: 05/16/14 Stop Date: 05/16/14 Status: Discontinued Tessalon Perles 100 mg oral capsule 100 mg=1 cap, PO, TID, # 30 cap, 0 Refill(s) Start Date: 05/16/14 Stop Date: 05/26/14 Status: Ordered Results ELECTROLYTES Most recent to 1 oldest [Reference Range]: Sodium Lvl [135-145 142 mEq/L mEq/L] (05/16/14 1:13 PM) Potassium Lvl 4.3 mEq/L [3.5-5.1 mEq/L] (05/16/14 1:13 PM) Chloride Lvl [95-109 109 mEq/L mEq/L] (05/16/14 1:13 PM) CO2 [24-32 mEq/L] 24 mEq/L (05/16/14 1:13 PM) AGAP [10.0-20.0 13.3 mEq/L mEq/L] (05/16/14 1:13 PM) CHEM PANEL Most recent to 1 oldest [Reference Range]: Creatinine Lvl 1.1 mg/dL [0.5-1.4 mg/dL] (05/16/14 1:13 PM) eGFR 48 mL/min/1.73m2 1 *NA* (05/16/14 1:13 PM) BUN [7-22 mg/dL] 30 mg/dL *HI* (05/16/14 1:13 PM) B/C Ratio [6-25] 27 *HI* (05/16/14 1:13 PM) Glucose Lvl [70-99 173 mg/dL 2 mg/dL] *HI* (05/16/14 1:13 PM) Total Protein 7.2 g/dL [6.4-8.4 g/dL] (05/16/14 1:13 PM) Albumin Lvl [3.5-5.0 3.5 g/dL g/dL] (05/16/14 1:13 PM) Globulin [2.0-4.0 3.7 g/dL g/dL] (05/16/14 1:13 PM) A/G Ratio [0.7-1.6] 0.9 (05/16/14 1:13 PM) Calcium Lvl 9.0 mg/dL [8.5-10.5 mg/dL] (05/16/14 1:13 PM) ALT [0-65 unit/L] 48 unit/L (05/16/14 1:13 PM) AST [0-37 unit/L] 36 unit/L (05/16/14 1:13 PM) Alk Phos [39-136 164 unit/L unit/L] *HI* (05/16/14 1:13 PM) Bili Total [0.2-1.3 0.5 mg/dL mg/dL] (05/16/14 1:13 PM) 1Result Comment: The eGFR is calculated using [...] values reflect the clinical guidelines of the [place] [employer]. CARDIAC ENZYMES Most recent to 1 oldest [Reference Range]: Total CK [12-191 104 unit/L unit/L] (05/16/14 1:13 PM) CK MB [0.5-3.6 1.4 ng/mL ng/mL] (05/16/14 1:13 PM) CK MB Index 1.3 [0.0-2.5] (05/16/14 1:13 PM) Troponin-I <0.02 ng/mL [0.00-0.40 ng/mL] (05/16/14 1:13 PM) HEMATOLOGY Most recent to 1 oldest [Reference Range]: WBC [3.7-10.4 K/CMM] 13.4 K/CMM *HI* (05/16/14: PM) RBC [4.20-5.40 4.68 M/CMM M/CMM] (05/16/14 1:13 PM) Hgb [12.0-16.0 g/dL] 14.3 g/dL (05/16/14: PM) Hct [36.0-48.0 %] 44.1 % (05/16/14:13 PM) MCV [80.0-98.0 fL] 94.2 fL (05/16/14:13 PM) MCH [27.0-31.0 pg] 30.6 pg (05/16/14:13 PM) MCHC [32.0-36.0 32.4 g/dL g/dL] (05/16/14:13 PM) RDW [11.5-14.5 %] 14.1 % (05/16/14: PM) Platelet [133-450 344 K/CMM K/CMM] (05/16/14:13 PM) MPV [7.4-10.4 fL] 8.1 fL (05/16/14:13 PM) Segs [45.0-75.0 %] 73.3 % (05/16/14:13 PM) Lymphocytes 18.7 % [20.0-40.0 %] *LOW* (05/16/14: PM) Monocytes [2.0-12.0 6.1 % %] (10/26/14 1:13 PM) Eosinophils [0.0-4.0 1.1 % %] (05/16/14 1:13 PM) Basophils [0.0-1.0 0.8 % %] (05/16/14 1:13 PM) Segs-Bands # 9.8 K/CMM [1.5-8.1 K/CMM] *HI* (05/16/14 1:13 PM) Lymphocytes # 2.5 K/CMM [1.0-5.5 K/CMM] (05/16/14 1:13 PM) Monocytes # [0.0-0.8 0.8 K/CMM K/CMM] (05/16/14 1:13 PM) Eosinophils # 0.2 K/CMM [0.0-0.5 K/CMM] (05/16/14 1:13 PM) Basophils # [0.0-0.2 0.1 K/CMM K/CMM] (05/16/14 1:13 PM) PT [12.0-14.7 12.8 seconds seconds] (05/16/14 1:13 PM) INR [0.85-1.17] 0.96 3 (05/16/14 1:13 PM) D-Dimer 0.46 ug/mL FEU 4 *NA* (05/16/14 1:13 PM) PTT [22.9-35.8 35.5 seconds 5 seconds] (05/16/14 1:13 PM) 3Interpretive Data: RECOMMENDED RANGES FOR PROTIME INR: 2.0-3.0 for most medical and surgical thromboembolic states. 2.5-3.5 for artificial heart valves and recurrent embolism. INR SHOULD BE USED ONLY FOR PATIENTS ON STABLE ANTICOAGULANT THERAPY. 4Interpretive Data: In DIC, quantitative D-Dimer is generally greater than 0.66 ug/mL FEU. Values of quantitative D-Dimer less than 0.40 ug/mL FEU have been reported to be associated with a low probability of deep vein thrombosis/pulmonary embolism. This test alone should not be used to rule out DVT/PE. 5Interpretive Data: Heparin Therapeutic Range: 57 - 92 Seconds Medications Administered During Your Visit No data available for this section Immunizations Vaccine Date Refusal Reason influenza virus vaccine, inactivated1 09/03/12 1Admin Note: PATIENT STATES RECEIVED IN APRIL OF 2012 AT [facility] Social History Social History Type Response
--- OUTSIDE RECORDS SUMMARY | 2018-05-25 13:48 | XMS REPORT | CCD ---
Author Author Auto Generated Organization [facility] Address Unknown Phone Unavailable Care Team Providers Care Principal Technical Specialist Name Role Phone Phoebe Herzog CP Allergies, Adverse Reactions, Alerts Substance Reaction Status NKDA Active Medications Medication Instructions Start Date End Date Status Cycloset 3.2 mg, Route: PO, Drug form: TAB, 06/24/2012 06/23/2012 Deleted After Breakfast, Dosing Weight 95, kg, Start date: 06/24/12 8:30:00, Duration: 30 day, Stop date: 07/23/12 8:30:00 aspirin 81 mg 81 mg, 1 tab, Route: PO, Drug form: 06/23/2012 06/26/2012 Discontinued tablet, chewable CHEWTAB, Q24H, Dosing Weight 95, kg, Start date: 06/23/12 22:00:00, Duration: 30 day, Stop date: 07/22/12 22:00:00 Calcium 600 +D oral 1 tab, PO, Daily, Substitution 06/23/2012 Ordered tablet Allowed, Maintenance nitroglycerin 0.4 mg 0.4 mg, 1 tab, Route: SL, Drug 06/24/2012 06/24/2012 Discontinued sublingual tablet form: TAB, Q5Min, PRN Chest Pain, Start date: 06/24/12 0:03:00, Duration: 30 day, Stop date: 07/24/12 0:02:00 atropine 0.5 mg, 5 mL, Route: IVP, Drug 06/24/2012 06/24/2012 Discontinued form: INJ, PRN, PRN Bradycardia, Start date: 06/24/12 0:03:00, Duration: 30 day, Stop date: 07/24/12 0:02:00 metoprolol 50 mg 50 mg, 1 tab, PO, BID, Substitution 06/23/2012 Ordered oral tablet, Allowed extended release Levaquin 500 mg oral 500 mg, 1 tab, PO, [id number], 4 tab, 06/26/2012 Ordered tablet Substitution Allowed, TAB ciprofloxacin 400 mg, Route: IVPB, ONCE, Dosing 06/23/2012 06/23/2012 Completed Weight 95, kg, Priority: STAT, Start date: 06/23/12 18:28:00, Stop date: 06/23/12 18:28:00 Sodium Chloride 0.9% 1,000 mL, Rate: 100 ml/hr, Infuse 06/23/2012 06/23/2012 Discontinued IV 1,000 mL over: 10 hr, Route: IV, kg, Total Volume: 1,000, Start date: 06/23/12 18:27:00, Duration: 30 day, Stop date: 07/23/12 18:26:00 Rocephin + Sodium 1 gm, Route: IVPB, Drug form: 06/23/2012 06/26/2012 Discontinued Chloride 0.9% IV 100 PDR/INJ, Q24H, Dosing Weight 95, mL kg, Priority: Routine, Start date: 06/23/12 23:00:00, Duration: 30 day, Stop date: 07/22/12 23:00:00 normal saline 0.9% 1,000 mL, Rate: 100 ml/hr, Infuse 06/23/2012 06/24/2012 Completed IV 1,000 mL over: 10 hr, Route: IV, kg, Total Volume: 1,000, Start date: 06/23/12 22:20:00, Stop date: 06/24/12 23:31:00 pantoprazole 40 mg, Route: IVP, Drug form: INJ, 06/24/2012 06/26/2012 Discontinued Before Breakfast, Dosing Weight 95, kg, Priority: Routine, Start date: 06/24/12 7:30:00, Duration: 30 day, Stop date: 07/23/12 7:30:00 Cycloset Substitution Allowed 06/23/2012 06/23/2012 Discontinued Motrin 800 mg, Route: PO, Drug form: TAB, 06/23/2012 06/23/2012 Completed ONCE, Dosing Weight 95, kg, Priority: STAT, Start date: 06/23/12 17:28:00, Stop date: 06/23/12 17:28:00 Osteo Bi-Flex 1 tab, PO, Daily, Substitution 06/23/2012 Ordered Allowed, Maintenance Vitamin D3 1000 intl 1,000 IntlUnit, 1 cap, PO, Daily, 06/23/2012 Ordered units oral capsule 100 cap, Substitution Allowed, CAP aspirin 81 mg 81 mg, 1 tab, PO, Daily, 30 tab, 06/23/2012 Ordered tablet, chewable Substitution Allowed, CHEWTAB Levemir FlexPen 15 unit, SUB-Q, Bedtime, 06/23/2012 Ordered Substitution Allowed Cycloset 0.8 mg oral 3.2 mg, 4 tab, PO, After Breakfast, 06/23/2012 Ordered tablet 2 hours after breakfast, Substitution Allowed 2 hours after breakfast Cycloset 3.2mg PO Cycloset 3.2mg PO after 06/24/2012 06/24/2012 Discontinued after breakfast-Use breakfast-Use pt's home med, 3.2 pt's home med mg, Drug form: MISC, Route: PO, After Breakfast, 06/24/12 8:30:00, Duration: 30 day, Stop date: 07/23/12 8:30:00 acetaminophen 650 mg, 2 tab, Route: PO, Drug 06/23/2012 06/26/2012 Discontinued form: TAB, Q8H, Dosing Weight 95, kg, PRN Pain/Fever, Start date: 06/23/12 22:20:00, Duration: 30 day, Stop date: 07/23/12 22:19:00 docusate 100 mg, 1 cap, Route: PO, Drug 06/24/2012 06/26/2012 Discontinued form: CAP, BID, Dosing Weight 95, kg, Start date: 06/24/12 9:00:00, Duration: 30 day, Stop date: 07/23/12 17:00:00 ondansetron 4 mg, 2 mL, Route: IVP, Drug form: 06/23/2012 06/26/2012 Discontinued INJ, Q6H, Dosing Weight 95, kg, PRN Nausea & Vomiting, Start date: 06/23/12 22:20:00, Duration: 30 day, Stop date: 07/23/12 22:19:00 Saline Flush 0.9% 5 ml, Route: IVP, Drug Form: INJ, 06/23/2012 06/26/2012 Discontinued Dosing Weight 95, kg, PRN, PRN Line Flush, Start date: 06/23/12 22:20:00, Duration: 30 day, Stop date: 07/23/12 22:19:00 Byetta 5 mcg/0.02 mL 5 microgram, 0.02 mL, SUB-Q, Daily, 06/23/2012 Ordered subcutaneous Substitution Allowed solution atorvastatin 10 mg 10 mg, 1 tab, PO, QAM, 30 tab, 06/23/2012 Ordered oral tablet Substitution Allowed, TAB amLODipine 5 mg oral 5 mg, 1 tab, PO, BID, Substitution 06/23/2012 Ordered tablet Allowed pantoprazole 40 mg, 1 tab, Route: PO, Drug form: 06/27/2012 06/26/2012 Canceled ECTAB, Before Breakfast, Dosing Weight 95, kg, Priority: Routine, Start date: 06/27/12 7:30:00, Duration: 30 day, Stop date: 07/26/12 7:30:00 Levemir 15 unit, 0.15 mL, Route: SUB-Q, 06/24/2012 06/26/2012 Discontinued Drug form: INJ, QPM, Dosing Weight 95, kg, Start date: 06/24/12 17:00:00, Duration: 30 day, Stop date: 07/23/12 17:00:00 Diovan 320 mg oral 320 mg, 1 tab, PO, Daily, 30 tab, 06/23/2012 Ordered tablet Substitution Allowed, TAB Levaquin 500 mg, 2 tab, Route: PO, Drug 06/26/2012 06/26/2012 Discontinued form: TAB, [id number], Dosing Weight 95, kg, Start date: 06/26/12 11:00:00, Duration: 30 day, Stop date: 07/25/12 11:00:00 metoprolol 50 mg 50 mg, 1 tab, PO, BID, 180 tab, 06/23/2012 06/23/2012 Completed oral tablet Substitution Allowed, TAB glimepiride 4 mg 4 mg, 1 tab, PO, BID, Substitution 06/23/2012 Ordered oral tablet Allowed Dextrose 50% Syringe 25 gm, 50 mL, Route: IVP, Drug 06/23/2012 06/24/2012 Deleted Form: INJ, Dosing Weight 95, kg, PRN, PRN Blood Glucose Results, Start date: 06/23/12 21:35:00, Duration: 30 day, Stop date: 07/23/12 21:34:00 glucagon 1 mg, Route: IM, Drug form: 06/23/2012 06/24/2012 Deleted PDR/INJ, PRN, Dosing Weight 95, kg, PRN Blood Glucose Results, Start date: 06/23/12 21:35:00, Duration: 30 day, Stop date: 07/23/12 21:34:00 Dextrose 50% Syringe 12.5 gm, 25 mL, Route: IVP, Drug 06/23/2012 06/24/2012 Deleted Form: INJ, Dosing Weight 95, kg, PRN, PRN Blood Glucose Results, Start date: 06/23/12 21:35:00, Duration: 30 day, Stop date: 07/23/12 21:34:00 insulin aspart 1 unit, 0.01 mL, Route: SUB-Q, Drug 06/23/2012 06/24/2012 Deleted form: SOLN, TID-Before Meals, Dosing Weight 95, kg, PRN Blood Glucose Results, Start date: 06/23/12 21:35:00, Duration: 30 day, Stop date: 07/23/12 21:34:00 insulin aspart 2 unit, 0.02 mL, Route: SUB-Q, Drug 06/23/2012 06/24/2012 Deleted form: SOLN, TID-Before Meals, Dosing Weight 95, kg, PRN Blood Glucose Results, Start date: 06/23/12 21:35:00, Duration: 30 day, Stop date: 07/23/12 21:34:00 insulin aspart 5 unit, 0.05 mL, Route: SUB-Q, Drug 06/23/2012 06/24/2012 Deleted form: SOLN, TID-Before Meals, Dosing Weight 95, kg, PRN Blood Glucose Results, Start date: 06/23/12 21:35:00, Duration: 30 day, Stop date: 07/23/12 21:34:00 insulin aspart 3 unit, 0.03 mL, Route: SUB-Q, Drug 06/23/2012 06/24/2012 Voided With form: SOLN, TID-Before Meals, Results Dosing Weight 95, kg, PRN Blood Glucose Results, Start date: 06/23/12 21:35:00, Duration: 30 day, Stop date: 07/23/12 21:34:00 insulin aspart 4 unit, 0.04 mL, Route: SUB-Q, Drug 06/23/2012 06/24/2012 Deleted form: SOLN, TID-Before Meals, Dosing Weight 95, kg, PRN Blood Glucose Results, Start date: 06/23/12 21:35:00, Duration: 30 day, Stop date: 07/23/12 21:34:00 glucagon 1 mg, Route: IM, Drug form: 06/24/2012 06/26/2012 Discontinued PDR/INJ, PRN, Dosing Weight 95, kg, PRN Abnormal Lab Result, Priority: STAT, Start date: 06/24/12 11:35:00, Duration: 30 day, Stop date: 07/24/12 11:34:00 insulin aspart 2 unit, 0.02 mL, Route: SUB-Q, Drug 06/24/2012 06/26/2012 Discontinued form: SOLN, Bedtime, Dosing Weight 95, kg, PRN Blood Glucose Results, Start date: 06/24/12 11:35:00, Duration: 30 day, Stop date: 07/24/12 11:34:00 insulin aspart 4 unit, 0.04 mL, Route: SUB-Q, Drug 06/24/2012 06/26/2012 Discontinued form: SOLN, Bedtime, Dosing Weight 95, kg, PRN Blood Glucose Results, Start date: 06/24/12 11:35:00, Duration: 30 day, Stop date: 07/24/12 11:34:00 insulin aspart 3 unit, 0.03 mL, Route: SUB-Q, Drug 06/24/2012 06/24/2012 Deleted form: SOLN, TID-Before Meals, Dosing Weight 95, kg, PRN Blood Glucose Results, Start date: 06/24/12 11:35:00, Duration: 30 day, Stop date: 07/24/12 11:34:00 insulin aspart 9 unit, 0.09 mL, Route: SUB-Q, Drug 06/24/2012 06/26/2012 Discontinued form: SOLN, TID-Before Meals, Dosing Weight 95, kg, PRN Blood Glucose Results, Start date: 06/24/12 11:35:00, Duration: 30 day, Stop date: 07/24/12 11:34:00 insulin aspart 6 unit, 0.06 mL, Route: SUB-Q, Drug 06/24/2012 06/26/2012 Discontinued form: SOLN, TID-Before Meals, Dosing Weight 95, kg, PRN Blood Glucose Results, Start date: 06/24/12 11:35:00, Duration: 30 day, Stop date: 07/24/12 11:34:00 insulin aspart 1 unit, 0.01 mL, Route: SUB-Q, Drug 06/24/2012 06/26/2012 Discontinued form: SOLN, Bedtime, Dosing Weight 95, kg, PRN Blood Glucose Results, Start date: 06/24/12 11:35:00, Duration: 30 day, Stop date: 07/24/12 11:34:00 insulin aspart 3 unit, 0.03 mL, Route: SUB-Q, Drug 06/24/2012 06/26/2012 Discontinued form: SOLN, Bedtime, Dosing Weight 95, kg, PRN Blood Glucose Results, Start date: 06/24/12 11:35:00, Duration: 30 day, Stop date: 07/24/12 11:34:00 insulin aspart 12 unit, 0.12 mL, Route: SUB-Q, 06/24/2012 06/26/2012 Discontinued Drug form: SOLN, TID-Before Meals, Dosing Weight 95, kg, PRN Blood Glucose Results, Start date: 06/24/12 11:35:00, Duration: 30 day, Stop date: 07/24/12 11:34:00 insulin aspart 15 unit, 0.15 mL, Route: SUB-Q, 06/24/2012 06/26/2012 Discontinued Drug form: SOLN, TID-Before Meals, Dosing Weight 95, kg, PRN Blood Glucose Results, Start date: 06/24/12 11:35:00, Duration: 30 day, Stop date: 07/24/12 11:34:00 Dextrose 50% Syringe 12.5 gm, 25 mL, Route: IVP, Drug 06/24/2012 06/26/2012 Discontinued Form: INJ, Dosing Weight 95, kg, PRN, PRN Blood Glucose Results, Start date: 06/24/12 11:35:00, Duration: 30 day, Stop date: 07/24/12 11:34:00 insulin aspart 3 unit, 0.03 mL, Route: SUB-Q, Drug 06/24/2012 06/26/2012 Discontinued form: SOLN, TID-Before Meals, Dosing Weight 95, kg, PRN Blood Glucose Results, Start date: 06/24/12 11:35:00, Duration: 30 day, Stop date: 07/24/12 11:34:00 insulin aspart 2 unit, 0.02 mL, Route: SUB-Q, Drug 06/24/2012 06/26/2012 Discontinued form: SOLN, TID-Before Meals, Dosing Weight 95, kg, PRN Blood Glucose Results, Start date: 06/24/12 11:35:00, Duration: 30 day, Stop date: 07/24/12 11:34:00 insulin aspart 5 unit, 0.05 mL, Route: SUB-Q, Drug 06/24/2012 06/26/2012 Discontinued form: SOLN, TID-Before Meals, Dosing Weight 95, kg, PRN Blood Glucose Results, Start date: 06/24/12 11:35:00, Duration: 30 day, Stop date: 07/24/12 11:34:00 insulin aspart 4 unit, 0.04 mL, Route: SUB-Q, Drug 06/24/2012 06/26/2012 Discontinued form: SOLN, TID-Before Meals, Dosing Weight 95, kg, PRN Blood Glucose Results, Start date: 06/24/12 11:35:00, Duration: 30 day, Stop date: 07/24/12 11:34:00 insulin aspart 1 unit, 0.01 mL, Route: SUB-Q, Drug 06/24/2012 06/26/2012 Discontinued form: SOLN, TID-Before Meals, Dosing Weight 95, kg, PRN Blood Glucose Results, Start date: 06/24/12 11:35:00, Duration: 30 day, Stop date: 07/24/12 11:34:00 chlorthalidone 25 mg 12.5 mg, 0.5 tab, PO, Daily, 06/23/2012 Ordered oral tablet Substitution Allowed Vital Signs Most recent to oldest [Reference Range]: 1 2 3 Height 177.80 cm (06/23/2012 17:24:00) Temperature Oral [96.4-99.1 DegF] 97.8 DegF (06/26/2012 08:00:00) 98.0 DegF (06/26/2012 04:00:00) 98.1 DegF (06/26/2012 00:00:00) Systolic Blood Pressure [90-140 mmHg] 150 mmHg *HI* (06/26/2012 08:00:00) 127 mmHg (06/26/2012 04:00:00) 123 mmHg (06/26/2012 00:00:00) Diastolic Blood Pressure [60-90 mmHg] 87 mmHg (06/26/2012 08:00:00) 82 mmHg (06/26/2012 04:00:00) 75 mmHg (06/26/2012 00:00:00) Respiratory Rate [14-20 BRMIN] 20 BRMIN (06/26/2012 10:17:00) 18 BRMIN (06/26/2012 08:00:00) 18 BRMIN (06/26/2012 04:00:00) Peripheral Pulse Rate [60-100 bpm] 88 bpm (06/26/2012 08:00:00) 70 bpm (06/26/2012 04:00:00) 72 bpm (06/26/2012 00:00:00) Weight 95.000 kg (06/23/2012 17:24:00) Results BEDSIDE GLUCOSE TESTING Most recent to oldest [Reference Range]: 1 2 3 Gluc POC Lifscn [70-99 mg/dL] 142 mg/dL 1 *HI* (06/26/2012 06:12:00) 254 mg/dL 2 *HI* (06/25/2012 21:00:00) 252 mg/dL 3 *HI* (06/25/2012 15:22:00) Comment1 Notify RN/MD *NA* (06/25/2012 15:22:00) Notify RN/MD *NA* (06/25/2012 11:39:00) Notify RN/MD *NA* (06/25/2012 05:58:00) 1Interpretive Data: Upper Reportable Limit: 200 mg/dL. 2Interpretive Data: Upper Reportable Limit: 200 mg/dL. 3Interpretive Data: Upper Reportable Limit: 200 mg/dL. URINALYSIS Most recent to oldest [Reference Range]: 1 2 3 UA Turbidity [Clear] Slight *ABN* (06/23/2012 17:36:00) UA Color [Yellow] Yellow *NA* (06/23/2012 17:36:00) UA pH [5.0-8.0] 5.0 (06/23/2012 17:36:00) UA Spec Grav [<=1.030] 1.008 (06/23/2012 17:36:00) UA Glucose [Negative mg/dL] 500 mg/dL *ABN* (06/23/2012 17:36:00) UA Blood [Negative] Small *ABN* (06/23/2012 17:36:00) UA Ketones [Negative mg/dL] Negative mg/dL *NA* (06/23/2012 17:36:00) UA Protein [Negative mg/dL] Negative mg/dL (06/23/2012 17:36:00) UA Urobilinogen [0.1-1.0 mg/dL] 2.0 mg/dL *HI* (06/23/2012 17:36:00) UA Bili [Negative] Negative *NA* (06/23/2012 17:36:00) UA Leuk Est [Negative] Small *ABN* (06/23/2012 17:36:00) UA Nitrite [Negative] Negative (06/23/2012 17:36:00) UA WBC [0-5 /HPF] 20 /HPF *HI* (06/23/2012 17:36:00) UA RBC [0-2 /HPF] 4 /HPF *HI* (06/23/2012 17:36:00) UA Bacteria [None Seen /HPF] Occasional /HPF *NA* (06/23/2012 17:36:00) UA Sq Epi [Few /LPF] Few /LPF *NA* (06/23/2012 17:36:00) UA Mucus [None Seen /LPF] Few /LPF *NA* (06/23/2012 17:36:00) CHEMISTRY Most recent to oldest [Reference Range]: 1 2 3 Sodium Lvl [135-145 mEq/L] 146 mEq/L *HI* (06/26/2012 03:52:00) 143 mEq/L (06/25/2012 07:12:00) 139 mEq/L (06/24/2012 04:34:00) Potassium Lvl [3.5-5.1 mEq/L] 4.0 mEq/L (06/26/2012 03:52:00) 3.7 mEq/L (06/25/2012 07:12:00) 4.2 mEq/L (06/24/2012 04:34:00) Chloride Lvl [95-109 mEq/L] 108 mEq/L (06/26/2012 03:52:00) 110 mEq/L *HI* (06/25/2012 07:12:00) 105 mEq/L (06/24/2012 04:34:00) CO2 [24-32 mEq/L] 28 mEq/L (06/26/2012 03:52:00) 24 mEq/L (06/25/2012 07:12:00) 25 mEq/L (06/24/2012 04:34:00) AGAP [10.0-20.0 mEq/L] 14.0 mEq/L (06/26/2012 03:52:00) 12.7 mEq/L (06/25/2012 07:12:00) 13.2 mEq/L (06/24/2012 04:34:00) Creatinine Lvl [0.5-1.4 mg/dL] 1.1 mg/dL (06/26/2012 03:52:00) 1.1 mg/dL (06/25/2012 07:12:00) 1.5 mg/dL *HI* (06/24/2012 04:34:00) eGFR 48 mL/min/1.73m2 4 *NA* (06/26/2012 03:52:00) 48 mL/min/1.73m2 5 *NA* (06/25/2012 07:12:00) 33 mL/min/1.73m2 6 *NA* (06/24/2012 04:34:00) BUN [7-22 mg/dL] 15 mg/dL (06/26/2012 03:52:00) 17 mg/dL (06/25/2012 07:12:00) 28 mg/dL *HI* (06/24/2012 04:34:00) B/C Ratio [6-25] 14 (06/26/2012 03:52:00) 15 (06/25/2012 07:12:00) 19 (06/24/2012 04:34:00) Glucose Lvl [70-99 mg/dL] 164 mg/dL 7 *HI* (06/26/2012 03:52:00) 82 mg/dL 8 (06/25/2012 07:12:00) 228 mg/dL 9 *HI* (06/24/2012 04:34:00) Total Protein [6.4-8.4 g/dL] 5.3 g/dL *LOW* (06/26/2012 03:52:00) 5.7 g/dL *LOW* (06/25/2012 07:12:00) 5.5 g/dL *LOW* (06/24/2012 04:34:00) Albumin Lvl [3.5-5.0 g/dL] 2.4 g/dL *LOW* (06/26/2012 03:52:00) 2.2 g/dL *LOW* (06/25/2012 07:12:00) 2.7 g/dL *LOW* (06/24/2012 04:34:00) Globulin [2.0-4.0 g/dL] 2.9 g/dL (06/26/2012 03:52:00) 3.5 g/dL (06/25/2012 07:12:00) 2.8 g/dL (06/24/2012 04:34:00) A/G Ratio [0.7-1.6] 0.8 (06/26/2012 03:52:00) 0.6 *LOW* (06/25/2012 07:12:00) 1.0 (06/24/2012 04:34:00) Calcium Lvl [8.5-10.5 mg/dL] 8.1 mg/dL *LOW* (06/26/2012 03:52:00) 8.2 mg/dL *LOW* (06/25/2012 07:12:00) 8.0 mg/dL *LOW* (06/24/2012 04:34:00) Phosphorus [2.5-4.5 mg/dL] 2.1 mg/dL *LOW* (06/24/2012 04:34:00) Magnesium Lvl [1.8-2.4 mg/dL] 1.7 mg/dL *LOW* (06/25/2012 07:12:00) 1.7 mg/dL *LOW* (06/24/2012 04:34:00) ALT [0-65 unit/L] 49 unit/L (06/26/2012 03:52:00) 48 unit/L (06/25/2012 07:12:00) 63 unit/L (06/24/2012 04:34:00) AST [0-37 unit/L] 53 unit/L *HI* (06/26/2012 03:52:00) 53 unit/L *HI* (06/25/2012 07:12:00) 75 unit/L *HI* (06/24/2012 04:34:00) Alk Phos [39-136 unit/L] 317 unit/L *HI* (06/26/2012 03:52:00) 220 unit/L *HI* (06/25/2012 07:12:00) 252 unit/L *HI* (06/24/2012 04:34:00) Bili Total [0.2-1.3 mg/dL] 0.7 mg/dL (06/26/2012 03:52:00) 0.4 mg/dL (06/25/2012 07:12:00) 0.8 mg/dL (06/24/2012 04:34:00) Total CK [12-191 unit/L] 65 unit/L (06/24/2012 11:32:00) 60 unit/L (06/24/2012 04:34:00) Troponin-I [0.00-0.40 ng/mL] <0.02 ng/mL (06/24/2012 11:32:00) <0.02 ng/mL (06/24/2012 04:34:00) CHD Risk [3.90-5.80] 9.27 *HI* (06/25/2012 07:12:00) Chol [120-200 mg/dL] 102 mg/dL *LOW* (06/25/2012 07:12:00) Trig [0-200 mg/dL] 182 mg/dL (06/25/2012 07:12:00) HDL [>=35 mg/dL] 11 mg/dL *LOW* (06/25/2012 07:12:00) LDL [0-129 mg/dL] 55 mg/dL (06/25/2012 07:12:00) 4Result Comment: The eGFR is calculated using [...] be mul tiplied by the estimated BMI. 5Result Comment: The eGFR is calculated using [...] be mul tiplied by the estimated BMI. 6Result Comment: The eGFR is calculated using [...] be mul tiplied by the estimated BMI. 7Interpretive Data: Adult reference range values reflect the clinical guidelines of the [place] [employer]. 8Interpretive Data: Adult reference range values reflect the clinical guidelines of the [place] [employer]. 9Interpretive Data: Adult reference range values reflect the clinical guidelines of the [place] [employer]. HEMATOLOGY Most recent to oldest [Reference Range]: 1 2 3 WBC [3.7-10.4 K/CMM] 6.3 K/CMM (06/26/2012 03:52:00) 6.4 K/CMM (06/25/2012 07:12:00) 7.8 K/CMM (06/24/2012 04:34:00) RBC [4.20-5.40 M/CMM] 3.88 M/CMM *LOW* (06/26/2012 03:52:00) 3.65 M/CMM *LOW* (06/25/2012 07:12:00) 3.85 M/CMM *LOW* (06/24/2012 04:34:00) Hgb [12.0-16.0 g/dL] 12.3 g/dL (06/26/2012 03:52:00) 11.6 g/dL *LOW* (06/25/2012 07:12:00) 12.0 g/dL (06/24/2012 04:34:00) Hct [36.0-48.0 %] 36.1 % (06/26/2012 03:52:00) 34.0 % *LOW* (06/25/2012 07:12:00) 36.4 % (06/24/2012 04:34:00) MCV [81.0-99.0 fL] 93.0 fL (06/26/2012 03:52:00) 93.1 fL (06/25/2012 07:12:00) 94.6 fL (06/24/2012 04:34:00) MCH [27.0-31.0 pg] 31.8 pg *HI* (06/26/2012 03:52:00) 31.9 pg *HI* (06/25/2012 07:12:00) 31.2 pg *HI* (06/24/2012 04:34:00) MCHC [32.0-36.0 g/dL] 34.1 g/dL (06/26/2012 03:52:00) 34.2 g/dL (06/25/2012 07:12:00) 33.0 g/dL (06/24/2012 04:34:00) RDW [11.5-14.5 %] 13.9 % (06/26/2012 03:52:00) 14.0 % (06/25/2012 07:12:00) 13.6 % (06/24/2012 04:34:00) Platelet [133-450 K/CMM] 203 K/CMM (06/26/2012 03:52:00) 190 K/CMM (06/25/2012 07:12:00) 178 K/CMM (06/24/2012 04:34:00) MPV [7.4-10.4 fL] 9.0 fL (06/26/2012 03:52:00) 9.1 fL (06/25/2012 07:12:00) 8.9 fL (06/24/2012 04:34:00) Segs [45.0-75.0 %] 60.7 % (06/26/2012 03:52:00) 70.9 % (06/25/2012 07:12:00) 83.1 % *HI* (06/24/2012 04:34:00) Lymphocytes [20.0-40.0 %] 25.9 % (06/26/2012 03:52:00) 17.6 % *LOW* (06/25/2012 07:12:00) 8.9 % *LOW* (06/24/2012 04:34:00) Monocytes [2.0-12.0 %] 10.5 % (06/26/2012 03:52:00) 10.0 % (06/25/2012 07:12:00) 7.5 % (06/24/2012 04:34:00) Eosinophils [0.0-4.0 %] 2.6 % (06/26/2012 03:52:00) 1.0 % (06/25/2012 07:12:00) 0.3 % (06/24/2012 04:34:00) Basophils [0.0-1.0 %] 0.3 % (06/26/2012 03:52:00) 0.5 % (06/25/2012 07:12:00) 0.2 % (06/24/2012 04:34:00) Segs-Bands # [1.5-8.1 K/CMM] 3.8 K/CMM (06/26/2012 03:52:00) 4.5 K/CMM (06/25/2012 07:12:00) 6.5 K/CMM (06/24/2012 04:34:00) Lymphocytes # [1.0-5.5 K/CMM] 1.6 K/CMM (06/26/2012 03:52:00) 1.1 K/CMM (06/25/2012 07:12:00) 0.7 K/CMM *LOW* (06/24/2012 04:34:00) Monocytes # [0.0-0.8 K/CMM] 0.7 K/CMM (06/26/2012 03:52:00) 0.6 K/CMM (06/25/2012 07:12:00) 0.6 K/CMM (06/24/2012 04:34:00) Eosinophils # [0.0-0.5 K/CMM] 0.2 K/CMM (06/26/2012 03:52:00) 0.1 K/CMM (06/25/2012 07:12:00) 0.0 K/CMM (06/24/2012 04:34:00) Basophils # [0.0-0.2 K/CMM] 0.0 K/CMM (06/26/2012 03:52:00) 0.0 K/CMM (06/25/2012 07:12:00) 0.0 K/CMM (06/24/2012 04:34:00) IMMUNOLOGY Most recent to oldest [Reference Range]: 1 2 3 ROGELIO [Negative] Negative (06/25/2012 07:12:00) CMV IgG [Non Reactive] Reactive *ABN* (06/25/2012 07:12:00) EBV VCA IgM [<=0.89 IV] 0.03 IV 10 (06/25/2012 07:12:00) Hep Bs Ag [Negative] Negative *NA* (06/25/2012 07:12:00) Hep B Core IgM [Negative] Negative *NA* (06/25/2012 07:12:00) Hep A IgM [Negative] Negative *NA* (06/25/2012 07:12:00) Hep C Ab [Negative] Negative *NA* (06/25/2012 07:12:00) 10Interpretive Data: Index Value Results Interpretation --------- <=0.90 Negative No detectable IgM Antibody. 0.90 - 1.09 Equivocal Repeat testing suggested in 10-14 days. >=1.10 Positive Significant level of detectable VCA IgM Antibody, indicative of current or recent infection. Microbiology Reports PROCEDURE:Culture: Urine STATUS: Auth (Verified) BODY SITE: COLLECTED DATE/TIME: 06/23/2012 20:12:00 SOURCE: Urine, Clean Catch FREE TEXT SOURCE: FINAL REPORTS Final Report No Growth PRELIMINARY REPORTS Preliminary Report No Growth; Holding
--- OUTSIDE RECORDS SUMMARY | 2018-05-25 13:48 | XMS REPORT | Summary of Care ---
Author Organization Unknown Address Unknown Phone Unavailable Encounter NAVEED Garland(LILIA) [id number] Date(s): 10/10/14 - 10/10/14 [facility] [address] [place] [address]- Discharge Diagnosis: Acute bronchitis Discharge Disposition: Home Physician Attending: Nikki Cortes DO Vital Signs 1 2 3 Most recent to oldest [Reference Range]: 157.48 cm (10/10/14 11:04 AM) Height 97.6 DegF (10/10/14 11:04 AM) Temperature Oral [96.4-99.1 DegF] 146/64 mmHg *HI* (10/10/14 2:01 PM) 148/78 mmHg *HI* (10/10/14 1:36 PM) 171/78 mmHg *HI* (10/10/14 11:04 AM) Blood Pressure [90-140/60-90 mmHg] 18 BRMIN (10/10/14 2:01 PM) 21 BRMIN *HI* (10/10/14 1:36 PM) 16 BRMIN (10/10/14 11:54 AM) Respiratory Rate [14-20 BRMIN] 72 bpm (10/10/14 11:04 AM) Peripheral Pulse Rate [60-100 bpm] 92.727 kg (10/10/14 11:04 AM) Weight 37.39 m2 (10/10/14 11:04 AM) Body Mass Index Problem List Condition Effective Dates Status Health Status Informant Arthritis(Confirmed) Resolved Diabetes Active mellitus(Confirmed) Hypertension(Confirm Active ed) Pneumonia(Confirmed) Resolved Allergies, Adverse Reactions, Alerts Substance Reaction Severity Status NKDA Active Medications doxycycline monohydrate 100 mg oral tablet 100 mg=1 tab, PO, Q12H, # 20 tab, 0 Refill(s) Start Date: 10/10/14 Stop Date: 10/20/14 Status: Ordered DuoNeb inhalation solution 3 ml, Route: INHALATION, Drug Form: SOLN, Dosing Weight 92.727, kg, PRN, PRN Res piratory Protocol, Start date: 10/10/14 11:22:00, Duration: 30 day, Stop date: 0 11/09/14 11:21:00 Notes: (Same as: Duoneb) Start Date: 10/10/14 Stop Date: 10/10/14 Status: Discontinued DuoNeb inhalation solution 3 ml, Route: INHALATION, Drug Form: SOLN, Dosing Weight 92.727, kg, PRN, PRN Res piratory Protocol, Start date: 10/10/14 11:22:00, Duration: 30 day, Stop date: 0 11/09/14 11:21:00 Notes: (Same as: Duoneb) Start Date: 10/10/14 Stop Date: 10/10/14 Status: Discontinued DuoNeb inhalation solution 3 ml, Route: INHALATION, Drug Form: SOLN, Dosing Weight 92.727, kg, PRN, PRN Res piratory Protocol, Start date: 10/10/14 11:21:00, Duration: 30 day, Stop date: 0 11/09/14 11:20:00 Notes: (Same as: Duoneb) Start Date: 10/10/14 Stop Date: 10/10/14 Status: Discontinued predniSONE 10 mg oral tablet See Special Instructions, PO, Daily, 12 day regimen: Days 1-4 - 20 mg (2 tabs) daily Days 5-8 - 10 mg (1 tab) daily Days 9-12 - 5 mg (1/2 tab) daily, # 12 ta b, 0 Refill(s) Special Instructions: 12 day regimen:Days 1-4 - 20 mg (2 tabs) dailyDays 5-8 - 1 0 mg (1 tab) dailyDays 9-12 - 5 mg (1/2 tab) daily Start Date: 10/10/14 Stop Date: 10/22/14 Status: Ordered Saline Flush 0.9% 10 mL, Route: IVP, Drug Form: INJ, Dosing Weight 92.727, kg, PRN, PRN Line Flush , Start date: 10/10/14 11:21:00, Duration: 30 day, Stop date: 11/09/14 11:20:00 Notes: Same as: BD Posiflush Sterile Start Date: 10/10/14 Stop Date: 10/10/14 Status: Discontinued Results ELECTROLYTES Most recent to 1 oldest [Reference Range]: Sodium Lvl [135-145 140 mEq/L mEq/L] (10/10/14 11: AM) Potassium Lvl 4.6 mEq/L [3.5-5.1 mEq/L] (10/10/14 11: AM) Chloride Lvl [95-109 108 mEq/L mEq/L] (10/10/14 11: AM) CO2 [24-32 mEq/L] 25 mEq/L (10/10/14 11:22 AM) AGAP [10.0-20.0 11.6 mEq/L mEq/L] (10/10/14 11: AM) CHEM PANEL Most recent to 1 oldest [Reference Range]: Creatinine Lvl 1.1 mg/dL [0.5-1.4 mg/dL] (10/10/14 11:22 AM) eGFR 47 mL/min/1.73m2 1 *NA* (10/10/14 11: AM) BUN [7-22 mg/dL] 17 mg/dL (10/10/14 11:22 AM) B/C Ratio [6-25] 15 (10/10/14 11: AM) Glucose Lvl [70-99 134 mg/dL 2 mg/dL] *HI* (10/10/14 11: AM) Total Protein 7.4 g/dL [6.4-8.4 g/dL] (10/10/14 11: AM) Albumin Lvl [3.5-5.0 3.3 g/dL g/dL] *LOW* (10/10/14 11: AM) Globulin [2.0-4.0 4.1 g/dL g/dL] *HI* (10/10/14 11: AM) A/G Ratio [0.7-1.6] 0.8 (10/10/14 11:22 AM) Calcium Lvl 8.7 mg/dL [8.5-10.5 mg/dL] (10/10/14 11:22 AM) ALT [0-65 unit/L] 31 unit/L (10/10/14 11:22 AM) AST [0-37 unit/L] 44 unit/L *HI* (10/10/14 11:22 AM) Alk Phos [39-136 143 unit/L unit/L] *HI* (10/10/14 11:22 AM) Bili Total [0.2-1.3 0.6 mg/dL mg/dL] (10/10/14 11:22 AM) 1Result Comment: The eGFR is calculated using [...] values reflect the clinical guidelines of the [place] [employer]. CARDIAC ENZYMES Most recent to 1 oldest [Reference Range]: Total CK [12-191 108 unit/L unit/L] (10/10/14 11:22 AM) CK MB [0.5-3.6 0.9 ng/mL ng/mL] (10/10/14 11:22 AM) CK MB Index 0.8 [0.0-2.5] (10/10/14 11:22 AM) Troponin-I <0.02 ng/mL [0.00-0.40 ng/mL] (10/10/14 11:22 AM) BNP [<=100 pg/mL] 61 pg/mL 3 (10/10/14 11:22 AM) 3Interpretive Data: Elevated results are in line with increasing severity of congestive heart failure. Minor elevations between 100 and 300 may be seen with Myocardial Ischemia, Sodium retaining drugs, and compensated/treated heart failure. HEMATOLOGY Most recent to 1 oldest [Reference Range]: WBC [3.7-10.4 K/CMM] 7.4 K/CMM (10/10/14 AM) RBC [4.20-5.40 4.70 M/CMM M/CMM] (10/10/14 AM) Hgb [12.0-16.0 g/dL] 14.5 g/dL (10/10/14 AM) Hct [36.0-48.0 %] 44.4 % (10/10/14 AM) MCV [80.0-98.0 fL] 94.4 fL (10/10/14 AM) MCH [27.0-31.0 pg] 30.9 pg (10/10/14 AM) MCHC [32.0-36.0 32.7 g/dL g/dL] (10/10/14 AM) RDW [11.5-14.5 %] 14.1 % (10/10/14 AM) Platelet [133-450 249 K/CMM K/CMM] (10/10/14 AM) MPV [7.4-10.4 fL] 8.4 fL (10/10/14 AM) Segs [45.0-75.0 %] 61.1 % (10/10/14 AM) Lymphocytes 29.6 % [20.0-40.0 %] (10/10/14 AM) Monocytes [2.0-12.0 6.4 % %] (10/10/14 AM) Eosinophils [0.0-4.0 2.0 % %] (10/10/14 AM) Basophils [0.0-1.0 0.9 % %] (10/10/14 AM) Segs-Bands # 4.5 K/CMM [1.5-8.1 K/CMM] (10/10/14 AM) Lymphocytes # 2.2 K/CMM [1.0-5.5 K/CMM] (10/10/14 AM) Monocytes # [0.0-0.8 0.5 K/CMM K/CMM] (10/10/14 11:22 AM) Eosinophils # 0.2 K/CMM [0.0-0.5 K/CMM] (10/10/14 11:22 AM) Basophils # [0.0-0.2 0.1 K/CMM K/CMM] (10/10/14 11:22 AM) PT [12.0-14.7 12.7 seconds seconds] (10/10/14 11:22 AM) INR [0.85-1.17] 0.95 4 (10/10/14 11:22 AM) PTT [22.9-35.8 36.4 seconds 5 seconds] *HI* (10/10/14 11:22 AM) 4Interpretive Data: RECOMMENDED RANGES FOR PROTIME INR: 2.0-3.0 for most medical and surgical thromboembolic states. 2.5-3.5 for artificial heart valves and recurrent embolism. INR SHOULD BE USED ONLY FOR PATIENTS ON STABLE ANTICOAGULANT THERAPY. 5Interpretive Data: Heparin Therapeutic Range: 57 - 92 Seconds Immunizations Vaccine Date Refusal Reason influenza virus vaccine, inactivated1 09/03/12 1Admin Note: PATIENT STATES RECEIVED IN APRIL OF 2012 AT [facility] No data available for this section Social History Social History Type Response Smoking Status Never smoker; Exposure to Tobacco Smoke None; Cigarette Smoking Last 365 Days No; Reg Smoking Cessation Counseling No Assessment and Plan No data available for this section
--- OUTSIDE RECORDS SUMMARY | 2018-05-25 13:48 | XMS REPORT | Summary of Care ---
Author Organization Unknown Address Unknown Phone Unavailable Encounter NAVEED Garland(LILIA) [id number] Date(s): 08/22/14 - 08/22/14 [facility] [address] [address] - [facility] Discharge Diagnosis: Cellulitis Discharge Disposition: Home Physician Attending: Jaxson Morel MD Reason for Visit LEG SWELLING Vital Signs 1 2 3 Most recent to oldest [Reference Range]: 157.48 cm (08/22/14 5:19 PM) Height 98.1 DegF (08/22/14 9:00 PM) 98.1 DegF (08/22/14 7:26 PM) 98.1 DegF (08/22/14 5:19 PM) Temperature Oral [96.4-99.1 DegF] 162 mmHg *HI* (08/22/14 9:00 PM) 167 mmHg *HI* (08/22/14 7:26 PM) 163 mmHg *HI* (08/22/14 6:48 PM) Systolic Blood Pressure [90-140 mmHg] 79 mmHg (08/22/14 9:00 PM) 64 mmHg (08/22/14 7:26 PM) 76 mmHg (08/22/14 6:48 PM) Diastolic Blood Pressure [60-90 mmHg] 18 BRMIN (08/22/14 7:26 PM) 18 BRMIN (08/22/14 6:48 PM) 18 BRMIN (08/22/14 5:19 PM) Respiratory Rate [14-20 BRMIN] 70 bpm (08/22/14 9:00 PM) 68 bpm (08/22/14 7:26 PM) 74 bpm (08/22/14 6:48 PM) Peripheral Pulse Rate [60-100 bpm] 94.091 kg (08/22/14 5:19 PM) Weight 37.94 m2 (08/22/14 5:19 PM) Body Mass Index Problem List Condition Effective Dates Status Health Status Informant Arthritis(Confirmed) Resolved Diabetes Active mellitus(Confirmed) Hypertension(Confirm Active ed) Pneumonia(Confirmed) Resolved Allergies, Adverse Reactions, Alerts Substance Reaction Severity Status NKDA Active Medications Bactrim DS oral tablet 1 tab, PO, BID, # 14 tab, 0 Refill(s) Start Date: 08/22/14 Stop Date: 08/29/14 Status: Ordered Medications Administered During Your Visit No data available for this section Immunizations Vaccine Date Refusal Reason influenza virus vaccine, inactivated1 09/03/12 1Admin Note: PATIENT STATES RECEIVED IN APRIL OF 2012 AT [facility] Social History Social History Type Response Smoking Status Never smoker, Exposure to Tobacco Smoke None, Cigarette Smoking Last 365 Days No, Reg Smoking Cessation Counseling No
--- OUTSIDE RECORDS SUMMARY | 2018-05-25 13:48 | XMS REPORT | CCD ---
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 Name Role Phone Nestor Almendarez CP Allergies, Adverse Reactions, Alerts Substance Reaction Status NKDA Active Problem List Condition Effective Dates Status Diabetes mellitus Active Hypertension Active Medications Medication Instructions Start Date End Date Status atorvastatin 10 mg, 1 tab, Route: PO, Drug form: 09/03/2012 09/03/2012 Discontinued TAB, QAM, Dosing Weight 92.5, kg, Start date: 09/03/12 9:00:00, Duration: 30 day, Stop date: 10/02/12 9:00:00 aspirin 81 mg 81 mg, 1 tab, Route: PO, Drug form: 09/03/2012 09/03/2012 Discontinued tablet, chewable CHEWTAB, Daily, Dosing Weight 92.5, kg, Start date: 09/03/12 9:00:00, Duration: 30 day, Stop date: 10/02/12 9:00:00 Dextrose 50% Syringe 12.5 gm, 25 mL, Route: IVP, Drug 09/02/2012 09/02/2012 Discontinued Form: INJ, Dosing Weight 92.727, kg, PRN, PRN Blood Glucose Results, Start date: 09/02/12 16:51:00, Duration: 30 day, Stop date: 10/02/12 17:50:00 Dextrose 50% Syringe 25 gm, 50 mL, Route: IVP, Drug 09/02/2012 09/02/2012 Discontinued Form: INJ, Dosing Weight 92.727, kg, PRN, PRN Blood Glucose Results, Start date: 09/02/12 16:51:00, Duration: 30 day, Stop date: 10/02/12 17:50:00 glucagon 1 mg, Route: IM, Drug form: 09/02/2012 09/02/2012 Discontinued PDR/INJ, PRN, Dosing Weight 92.727, kg, PRN Blood Glucose Results, Start date: 09/02/12 16:51:00, Duration: 30 day, Stop date: 10/02/12 17:50:00 insulin aspart 2 unit, 0.02 mL, Route: SUB-Q, Drug 09/02/2012 09/02/2012 Discontinued form: SOLN, TID-Before Meals, Dosing Weight 92.727, kg, PRN Blood Glucose Results, Start date: 09/02/12 16:51:00, Duration: 30 day, Stop date: 10/02/12 16:50:00 insulin aspart 1 unit, 0.01 mL, Route: SUB-Q, Drug 09/02/2012 09/02/2012 Discontinued form: SOLN, TID-Before Meals, Dosing Weight 92.727, kg, PRN Blood Glucose Results, Start date: 09/02/12 16:51:00, Duration: 30 day, Stop date: 10/02/12 16:50:00 insulin aspart 4 unit, 0.04 mL, Route: SUB-Q, Drug 09/02/2012 09/02/2012 Discontinued form: SOLN, TID-Before Meals, Dosing Weight 92.727, kg, PRN Blood Glucose Results, Start date: 09/02/12 16:51:00, Duration: 30 day, Stop date: 10/02/12 16:50:00 insulin aspart 3 unit, 0.03 mL, Route: SUB-Q, Drug 09/02/2012 09/02/2012 Discontinued form: SOLN, TID-Before Meals, Dosing Weight 92.727, kg, PRN Blood Glucose Results, Start date: 09/02/12 16:51:00, Duration: 30 day, Stop date: 10/02/12 16:50:00 insulin aspart 5 unit, 0.05 mL, Route: SUB-Q, Drug 09/02/2012 09/02/2012 Discontinued form: SOLN, TID-Before Meals, Dosing Weight 92.727, kg, PRN Blood Glucose Results, Start date: 09/02/12 16:51:00, Duration: 30 day, Stop date: 10/02/12 16:50:00 amLODipine 5 mg, 1 tab, Route: PO, Drug form: 09/03/2012 09/03/2012 Discontinued TAB, BID, Dosing Weight 92.5, kg, Start date: 09/03/12 9:00:00, Duration: 30 day, Stop date: 10/02/12 17:00:00 Zithromax 500 mg, Route: IVPB, ONCE, Dosing 09/02/2012 09/02/2012 Discontinued Weight 92.727, kg, Priority: STAT, Start date: 09/02/12 12:50:00, Stop date: 09/02/12 12:50:00 Rocephin 1 g/ NS 1 gm, Route: IVPB, Drug form: 09/02/2012 09/02/2012 Discontinued (NaCl 0.9%) 50 mL IV PDR/INJ, ONCE, Dosing Weight solution 92.727, kg, Priority: STAT, Start date: 09/02/12 12:49:00, Stop date: 09/02/12 12:49:00 NovoLog 10 unit, 0.1 mL, Route: SUB-Q, Drug 09/03/2012 09/03/2012 Completed form: SOLN, ONCE, Dosing Weight 92.5, kg, Start date: 09/03/12 13:30:00, Stop date: 09/03/12 13:30:00 Tylenol 650 mg, 2 tab, Route: PO, Drug 09/02/2012 09/03/2012 Discontinued form: TAB, Q6H, Dosing Weight 92.5, kg, PRN Pain Score 1-3, Start date: 09/02/12 17:46:00, Duration: 30 day, Stop date: 10/02/12 17:45:00 [place] 5/325 oral 1 tab, Route: PO, Drug Form: TAB, 09/02/2012 09/03/2012 Discontinued tablet Dosing Weight 92.5, kg, Q6H, PRN Pain Score 1-5, Start date: 09/02/12 17:46:00, Duration: 30 day, Stop date: 10/02/12 17:45:00 morphine Sulfate 2 mg, 1 mL, Route: IVP, Drug form: 09/02/2012 09/03/2012 Discontinued INJ, Q4H, Dosing Weight 92.5, kg, PRN Pain Score 6-10, Start date: 09/02/12 17:45:00, Duration: 30 day, Stop date: 10/02/12 17:44:00 dextromethorphan-gua 10 ml, Route: PO, Drug Form: SYRP, 09/02/2012 09/03/2012 Discontinued ifenesin 10 mg-100 Dosing Weight 92.5, kg, Q4H, PRN mg/5 mL oral liquid Cough, Start date: 09/02/12 17:44:00, Duration: 30 day, Stop date: 10/02/12 17:43:00 Tussionex 5 ml, PO, Q12H, PRN, 100 mL, for 09/03/2012 Ordered [employer] oral cough, Substitution Allowed, suspension, extended Maintenance, ER Suspension release NovoLog PenFill 100 sliding scale, SUB-Q, TID-Meals, 5 09/02/2012 Ordered units/mL units for BS 80-120, 6 units for BS subcutaneous 121-150, 7.5 units for 150-200, 9 solution units for BS 201-250, 10 units for BS 250-300, 12.5 units for BS > 300, 3 ml, Substitution Allowed, SOLN 5 units for BS 80-120, 6 units for BS 121-150, 7.5 units for 150-200, 9 units for BS 201-250, 10 units for BS 250-300, 12.5 units for BS > 300 Tessalon Perles 100 mg, 1 cap, Route: PO, Drug 09/02/2012 09/03/2012 Discontinued form: CAP, TID, Dosing Weight 92.5, kg, PRN Cough, Start date: 09/02/12 17:44:00, Duration: 30 day, Stop date: 10/02/12 17:43:00 Zofran 4 mg, 2 mL, Route: IV, Drug form: 09/02/2012 09/03/2012 Discontinued INJ, Q6H, Dosing Weight 92.5, kg, PRN Nausea, Start date: 09/02/12 17:44:00, Duration: 30 day, Stop date: 10/02/12 17:43:00 insulin aspart 6 unit, 0.06 mL, Route: SUB-Q, Drug 09/02/2012 09/03/2012 Discontinued form: SOLN, TID-Before Meals, Dosing Weight 92.5, kg, PRN Blood Glucose Results, Start date: 09/02/12 17:44:00, Duration: 30 day, Stop date: 10/02/12 17:43:00 insulin aspart 8 unit, 0.08 mL, Route: SUB-Q, Drug 09/02/2012 09/03/2012 Discontinued form: SOLN, TID-Before Meals, Dosing Weight 92.5, kg, PRN Blood Glucose Results, Start date: 09/02/12 17:44:00, Duration: 30 day, Stop date: 10/02/12 17:43:00 insulin aspart 10 unit, 0.1 mL, Route: SUB-Q, Drug 09/02/2012 09/03/2012 Discontinued form: SOLN, TID-Before Meals, Dosing Weight 92.5, kg, PRN Blood Glucose Results, Start date: 09/02/12 17:44:00, Duration: 30 day, Stop date: 10/02/12 17:43:00 insulin aspart 2 unit, 0.02 mL, Route: SUB-Q, Drug 09/02/2012 09/03/2012 Discontinued form: SOLN, TID-Before Meals, Dosing Weight 92.5, kg, PRN Blood Glucose Results, Start date: 09/02/12 17:44:00, Duration: 30 day, Stop date: 10/02/12 17:43:00 insulin aspart 4 unit, 0.04 mL, Route: SUB-Q, Drug 09/02/2012 09/03/2012 Discontinued form: SOLN, TID-Before Meals, Dosing Weight 92.5, kg, PRN Blood Glucose Results, Start date: 09/02/12 17:44:00, Duration: 30 day, Stop date: 10/02/12 17:43:00 insulin aspart 4 unit, 0.04 mL, Route: SUB-Q, Drug 09/02/2012 09/03/2012 Discontinued form: SOLN, Bedtime, Dosing Weight 92.5, kg, PRN Blood Glucose Results, Start date: 09/02/12 17:44:00, Duration: 30 day, Stop date: 10/02/12 17:43:00 insulin aspart 3 unit, 0.03 mL, Route: SUB-Q, Drug 09/02/2012 09/03/2012 Discontinued form: SOLN, Bedtime, Dosing Weight 92.5, kg, PRN Blood Glucose Results, Start date: 09/02/12 17:44:00, Duration: 30 day, Stop date: 10/02/12 17:43:00 insulin aspart 1 unit, 0.01 mL, Route: SUB-Q, Drug 09/02/2012 09/03/2012 Discontinued form: SOLN, Bedtime, Dosing Weight 92.5, kg, PRN Blood Glucose Results, Start date: 09/02/12 17:44:00, Duration: 30 day, Stop date: 10/02/12 17:43:00 insulin aspart 2 unit, 0.02 mL, Route: SUB-Q, Drug 09/02/2012 09/03/2012 Discontinued form: SOLN, Bedtime, Dosing Weight 92.5, kg, PRN Blood Glucose Results, Start date: 09/02/12 17:44:00, Duration: 30 day, Stop date: 10/02/12 17:43:00 Dextrose 50% Syringe 12.5 gm, 25 mL, Route: IVP, Drug 09/02/2012 09/03/2012 Discontinued Form: INJ, Dosing Weight 92.5, kg, PRN, PRN Blood Glucose Results, Start date: 09/02/12 17:44:00, Duration: 30 day, Stop date: 10/02/12 18:43:00 Dextrose 50% Syringe 25 gm, 50 mL, Route: IVP, Drug 09/02/2012 09/03/2012 Discontinued Form: INJ, Dosing Weight 92.5, kg, PRN, PRN Blood Glucose Results, Start date: 09/02/12 17:44:00, Duration: 30 day, Stop date: 10/02/12 18:43:00 glucagon 1 mg, Route: IM, Drug form: 09/02/2012 09/03/2012 Discontinued PDR/INJ, PRN, Dosing Weight 92.5, kg, PRN Blood Glucose Results, Start date: 09/02/12 17:44:00, Duration: 30 day, Stop date: 10/02/12 18:43:00 Vantin 200 mg oral 200 mg, 1 tab, PO, Q12H, 14 tab, 09/03/2012 09/10/2012 Ordered tablet Substitution Allowed, TAB enoxaparin 40 mg, 0.4 mL, Route: SUB-Q, Drug 09/02/2012 09/03/2012 Discontinued form: INJ, [id number], Dosing Weight 92.5, kg, Start date: 09/02/12 18:00:00, Duration: 30 day, Stop date: 10/01/12 18:00:00 Medrol Dosepak 4 mg As directed on package 09/03/2012 09/09/2012 Ordered Tablet instructions, PO, Daily, Take with or without food, 1 Pack, Substitution Allowed Take with or without food Levemir FlexPen 100 25 unit, SUB-Q, Bedtime, if BS > 09/02/2012 Ordered units/mL 200, 3 ml, Substitution Allowed, subcutaneous SOLN solution if BS > 200 Diovan 320 mg, 2 tab, Route: PO, Drug 09/03/2012 09/03/2012 Discontinued form: TAB, Daily, Dosing Weight 92.5, kg, Start date: 09/03/12 9:00:00, Duration: 30 day, Stop date: 10/02/12 9:00:00 Toprol-XL 50 mg oral 50 mg, 1 tab, Route: PO, Drug form: 09/02/2012 09/03/2012 Discontinued tablet, extended ERTAB, QPM, Start date: 09/02/12 release 21:00:00, Duration: 30 day, Stop date: 10/01/12 21:00:00 metoprolol extended 100 mg, 1 tab, Route: PO, Drug 09/03/2012 09/03/2012 Discontinued release form: ERTAB, QAM, Start date: 09/03/12 9:00:00, Duration: 30 day, Stop date: 10/02/12 9:00:00 methylPREDNISolone 20 mg, 0.5 mL, Route: IVP, Drug 09/04/2012 09/03/2012 Canceled SODium SUCCinate form: INJ, Daily, Dosing Weight 92.727, kg, Start date: 09/04/12 9:00:00, Duration: 30 day, Stop date: 10/03/12 9:00:00 Cipro 400 mg, Route: IVPB, ONCE, Dosing 09/02/2012 09/02/2012 Completed Weight 92.727, kg, Priority: STAT, Start date: 09/02/12 13:13:00, Stop date: 09/02/12 13:13:00 Levemir FlexPen 15 unit, 0.15 mL, Route: SUB-Q, 09/02/2012 09/03/2012 Discontinued Drug form: INJ, Bedtime, Dosing Weight 92.5, kg, Start date: 09/02/12 21:00:00, Duration: 30 day, Stop date: 10/01/12 21:00:00 Maxipime 2 gm, Route: IVPB, ONCE, Dosing 09/02/2012 09/02/2012 Completed Weight 92.727, kg, Priority: STAT, Start date: 09/02/12 13:13:00, Stop date: 09/02/12 13:13:00 insulin detemir 25 unit, 0.25 mL, Route: SUB-Q, 09/02/2012 09/03/2012 Discontinued Drug form: INJ, Bedtime, Dosing Weight 92.5, kg, Start date: 09/02/12 21:00:00, Duration: 30 day, Stop date: 10/01/12 21:00:00 NovoLog PenFill Route: SUB-Q, Drug form: SOLN, 09/03/2012 09/02/2012 Deleted TID-Meals, Dosing Weight 92.5, kg, Start date: 09/03/12 8:00:00, Duration: 30 day, Stop date: 10/02/12 17:00:00 Maxipime + Sodium 1 gm, Route: IVPB, [id number], Dosing 09/02/2012 09/03/2012 Discontinued Chloride 0.9% IV 100 Weight 92.727, kg, Priority: STAT, mL Start date: 09/02/12 16:52:00, Duration: 30 day, Stop date: 10/01/12 16:52:00 Cipro 400 mg, 200 mL, Route: IVPB, Drug 09/02/2012 09/03/2012 Discontinued form: INJ, [id number], Dosing Weight 92.727, kg, Priority: STAT, Start date: 09/02/12 16:52:00, Duration: 30 day, Stop date: 10/02/12 4:52:00 nitroglycerin 0.4 mg 0.4 mg, 1 tab, Route: SL, Drug 09/02/2012 09/03/2012 Discontinued sublingual tablet form: TAB, Q5Min, PRN Chest Pain, Start date: 09/02/12 17:01:00, Duration: 30 day, Stop date: 10/02/12 18:00:00 atropine 0.5 mg, 5 mL, Route: IVP, Drug 09/02/2012 09/03/2012 Discontinued form: INJ, PRN, PRN Bradycardia, Start date: 09/02/12 17:01:00, Duration: 30 day, Stop date: 10/02/12 18:00:00 methylPREDNISolone 40 mg, 1 mL, Route: IVP, Drug form: 09/02/2012 09/03/2012 Discontinued SODium SUCCinate INJ, Q12H, Dosing Weight 92.727, kg, Start date: 09/02/12 21:00:00, Duration: 30 day, Stop date: 10/02/12 9:00:00 Saline Flush 0.9% 5 ml, Route: IVP, Drug Form: INJ, 09/02/2012 09/03/2012 Discontinued Dosing Weight 92.727, kg, PRN, PRN Line Flush, Start date: 09/02/12 16:52:00, Duration: 30 day, Stop date: 10/02/12 17:51:00 albuterol 0.083% 2.49 mg, Route: NEB, PRN, Dosing 09/02/2012 09/02/2012 Deleted inhalation solution Weight 92.727, kg, PRN Respiratory Protocol, Start date: 09/02/12 16:52:00, Duration: 30 day, Stop date: 10/02/12 17:51:00 albuterol-ipratropiu 3 mL, Route: NEB, Drug Form: SOLN, 09/02/2012 09/02/2012 Deleted m 2.5-0.5 mg Dosing Weight 92.727, kg, PRN, PRN inhalation solution Respiratory Protocol, Start date: 09/02/12 16:52:00, Duration: 30 day, Stop date: 10/02/12 17:51:00 ipratropium 0.5 mg, Route: NEB, PRN, Dosing 09/02/2012 09/02/2012 Deleted Weight 92.727, kg, PRN Respiratory Protocol, Start date: 09/02/12 16:52:00, Duration: 30 day, Stop date: 10/02/12 17:51:00 DuoNeb inhalation 3 ml, Route: INHALATION, Drug Form: 09/02/2012 09/03/2012 Discontinued solution SOLN, Dosing Weight 92.727, kg, PRN, PRN Respiratory Protocol, Start date: 09/02/12 12:52:00, Duration: 30 day, Stop date: 10/02/12 13:51:00 SoluMedrol 125 mg, Route: IVP, ONCE, Dosing 09/02/2012 09/02/2012 Completed Weight 92.727, kg, Priority: STAT, Start date: 09/02/12 12:52:00, Stop date: 09/02/12 12:52:00 Toprol-XL 50 mg oral 50 mg, 1 tab, PO, QPM, 30 tab, 09/02/2012 Ordered tablet, extended Substitution Allowed, ERTAB release NovoLog 10 unit, 0.1 mL, Route: SUB-Q, Drug 09/02/2012 09/02/2012 Completed form: SOLN, ONCE, Dosing Weight 92.5, kg, Priority: NOW, Start date: 09/02/12 22:19:00, Stop date: 09/02/12 22:19:00 albuterol 90 mcg/inh 1 puff, INHALATION, QID, PRN, 1 ea, 09/03/2012 Ordered inhalation aerosol wheezing, Substitution Allowed, Maintenance Immunizations Vaccine Date Status influenza virus vaccine, inactivated1 09/03/2012 Auth (Verified) 1PATIENT STATES RECEIVED IN APRIL OF 2012 AT [facility] Vital Signs Most recent to oldest [Reference Range]: 1 2 3 Height 157.48 cm (09/02/2012 17:16:00) 157.48 cm (09/02/2012 11:51:00) Temperature Oral [96.4-99.1 DegF] 98.4 DegF (09/03/2012 12:00:00) 97.8 DegF (09/03/2012 07:54:00) 97.6 DegF (09/03/2012 04:00:00) Systolic Blood Pressure [90-140 mmHg] 149 mmHg *HI* (09/03/2012 12:00:00) 151 mmHg *HI* (09/03/2012 07:54:00) 157 mmHg *HI* (09/03/2012 04:00:00) Diastolic Blood Pressure [60-90 mmHg] 81 mmHg (09/03/2012 12:00:00) 84 mmHg (09/03/2012 07:54:00) 83 mmHg (09/03/2012 04:00:00) Respiratory Rate [14-20 BRMIN] 20 BRMIN (09/03/2012 12:00:00) 20 BRMIN (09/03/2012 07:54:00) 16 BRMIN (09/03/2012 06:14:00) Peripheral Pulse Rate [60-100 bpm] 90 bpm (09/03/2012 12:00:00) 78 bpm (09/03/2012 07:54:00) 86 bpm (09/03/2012 04:00:00) Weight 92.500 kg (09/02/2012 17:16:00) 92.727 kg (09/02/2012 11:51:00) Results BEDSIDE GLUCOSE TESTING Most recent to oldest [Reference Range]: 1 2 3 Gluc POC Lif[place]n [70-99 mg/dL] >400 mg/dL 1 *CRIT* (09/03/2012 13:19:00) >400 mg/dL 2 *CRIT* (09/03/2012 11:09:00) 305 mg/dL 3 *HI* (09/03/2012 06:02:00) Comment1 Notify RN/MD *NA* (09/03/2012 13:19:00) Notify RN/MD *NA* (09/02/2012 20:48:00) Notify RN/MD *NA* (09/02/2012 20:45:00) 1Interpretive Data: Upper Reportable Limit: 200 mg/dL. 2Interpretive Data: Upper Reportable Limit: 200 mg/dL. 3Interpretive Data: Upper Reportable Limit: 200 mg/dL. URINALYSIS Most recent to oldest [Reference Range]: 1 2 3 UA Turbidity [Clear] Clear (09/02/2012 16:53:00) UA Color Ltyellow *NA* (09/02/2012 16:53:00) UA pH [5.0-8.0] 5.0 (09/02/2012 16:53:00) UA Spec Grav [<=1.030] 1.018 (09/02/2012 16:53:00) UA Glucose [Negative mg/dL] 500 mg/dL *ABN* (09/02/2012 16:53:00) UA Blood [Negative] Negative (09/02/2012 16:53:00) UA Ketones [Negative mg/dL] 20 mg/dL *ABN* (09/02/2012 16:53:00) UA Protein [Negative mg/dL] Negative mg/dL (09/02/2012 16:53:00) UA Urobilinogen [0.1-1.0 mg/dL] <=1.0 mg/dL *NA* (09/02/2012 16:53:00) UA Bili [Negative] Negative *NA* (09/02/2012 16:53:00) UA Leuk Est [Negative] Trace *ABN* (09/02/2012 16:53:00) UA Nitrite [Negative] Negative (09/02/2012 16:53:00) UA WBC [0-5 /HPF] 14 /HPF *HI* (09/02/2012 16:53:00) UA RBC [0-2 /HPF] 3 /HPF *HI* (09/02/2012 16:53:00) UA Bacteria [None Seen /HPF] Occasional /HPF *NA* (09/02/2012 16:53:00) UA Sq Epi [Few /LPF] Few /LPF *NA* (09/02/2012 16:53:00) CHEMISTRY Most recent to oldest [Reference Range]: 1 2 3 Sodium Lvl [135-145 mEq/L] 142 mEq/L (09/03/2012 05:58:00) 145 mEq/L (09/02/2012 12:24:00) Potassium Lvl [3.5-5.1 mEq/L] 4.2 mEq/L (09/03/2012 05:58:00) 3.9 mEq/L (09/02/2012 12:24:00) Chloride Lvl [95-109 mEq/L] 105 mEq/L (09/03/2012 05:58:00) 107 mEq/L (09/02/2012 12:24:00) CO2 [24-32 mEq/L] 27 mEq/L (09/03/2012 05:58:00) 27 mEq/L (09/02/2012 12:24:00) AGAP [10.0-20.0 mEq/L] 14.2 mEq/L (09/03/2012 05:58:00) 14.9 mEq/L (09/02/2012 12:24:00) Creatinine Lvl [0.5-1.4 mg/dL] 1.1 mg/dL (09/03/2012 05:58:00) 1.0 mg/dL (09/02/2012 12:24:00) eGFR 48 mL/min/1.73m2 4 *NA* (09/03/2012 05:58:00) 54 mL/min/1.73m2 5 *NA* (09/02/2012 12:24:00) BUN [7-22 mg/dL] 24 mg/dL *HI* (09/03/2012 05:58:00) 20 mg/dL (09/02/2012 12:24:00) B/C Ratio [6-25] 20 (09/02/2012 12:24:00) Glucose Lvl [70-99 mg/dL] 428 mg/dL 6, 7 *CRIT* (09/03/2012 11:49:00) 296 mg/dL 8 *HI* (09/03/2012 05:58:00) 476 mg/dL 9, 10 *CRIT* (09/02/2012 21:43:00) Total Protein [6.4-8.4 g/dL] 7.9 g/dL (09/02/2012 12:24:00) Albumin Lvl [3.5-5.0 g/dL] 3.5 g/dL (09/02/2012 12:24:00) Globulin [2.0-4.0 g/dL] 4.4 g/dL *HI* (09/02/2012 12:24:00) A/G Ratio [0.7-1.6] 0.8 (09/02/2012 12:24:00) Calcium Lvl [8.5-10.5 mg/dL] 9.1 mg/dL (09/03/2012 05:58:00) 9.6 mg/dL (09/02/2012 12:24:00) Phosphorus [2.5-4.5 mg/dL] 3.3 mg/dL (09/02/2012 12:24:00) Magnesium Lvl [1.8-2.4 mg/dL] 1.7 mg/dL *LOW* (09/02/2012 12:24:00) ALT [0-65 unit/L] 43 unit/L (09/02/2012:24:00) AST [0-37 unit/L] 40 unit/L *HI* (09/02/2012 12:24:00) Alk Phos [39-136 unit/L] 244 unit/L *HI* (09/02/2012:24:00) Bili Total [0.2-1.3 mg/dL] 0.7 mg/dL (09/02/2012 12:24:00) Lactic Acid Lvl [0.5-2.2 mMol/L] 1.2 mMol/L (09/02/2012 13:51:00) Total CK [12-191 unit/L] 76 unit/L (09/02/2012 12:24:00) CK MB [0.5-3.6 ng/mL] 0.9 ng/mL (09/02/2012:24:00) CK MB Index [0.0-2.5] 1.2 (09/02/2012 12:24:00) Troponin-I [0.00-0.40 ng/mL] <0.02 ng/mL (09/02/2012:24:00) BNP [<=100 pg/mL] 64 pg/mL 11 (09/02/2012 12:24:00) 4Result Comment: The eGFR is calculated using [...] tiplied by the estimated BMI. 6Result Comment: Critical Result(s) called to Estee at 09/03/2012 12:15:32 FIGURE CLERK by ZOEY. Read back OK. 7Interpretive Data: Adult reference range values reflect the clinical guidelines of the [place] [employer]. 8Interpretive Data: Adult reference range values reflect the clinical guidelines of the [place] [employer]. 9Result Comment: Critical Result(s) called to Zahida at 09/02/2012 22:05:03 FIGURE CLERK by SHEREE. Read back OK. 10Interpretive Data: Adult reference range values reflect the clinical guidelines of the [place] [employer]. 11Interpretive Data: Elevated results are in line with increasing severity of congestive heart failure. Minor elevations between 100 and 300 may be seen with Myocardial Ischemia, Sodium retaining drugs, and compensated/treated heart failure. HEMATOLOGY Most recent to oldest [Reference Range]: 1 2 3 WBC [3.7-10.4 K/CMM] 9.0 K/CMM (09/03/2012 05:58:00) 9.4 K/CMM (09/02/2012 12:24:00) RBC [4.20-5.40 M/CMM] 4.24 M/CMM (09/03/2012 05:58:00) 4.83 M/CMM (09/02/2012 12:24:00) Hgb [12.0-16.0 g/dL] 13.3 g/dL (09/03/2012 05:58:00) 15.3 g/dL (09/02/2012 12:24:00) Hct [36.0-48.0 %] 39.5 % (09/03/2012 05:58:00) 44.9 % (09/02/2012 12:24:00) MCV [81.0-99.0 fL] 93.2 fL (09/03/2012 05:58:00) 93.0 fL (09/02/2012 12:24:00) MCH [27.0-31.0 pg] 31.4 pg *HI* (09/03/2012 05:58:00) 31.6 pg *HI* (09/02/2012 12:24:00) MCHC [32.0-36.0 g/dL] 33.7 g/dL (09/03/2012 05:58:00) 34.0 g/dL (09/02/2012 12:24:00) RDW [11.5-14.5 %] 13.9 % (09/03/2012 05:58:00) 14.0 % (09/02/2012 12:24:00) Platelet [133-450 K/CMM] 353 K/CMM (09/03/2012 05:58:00) 382 K/CMM (09/02/2012 12:24:00) MPV [7.4-10.4 fL] 8.1 fL (09/03/2012 05:58:00) 8.9 fL (09/02/2012 12:24:00) Segs [45.0-75.0 %] 85.7 % *HI* (09/03/2012 05:58:00) 71.9 % (09/02/2012 12:24:00) Lymphocytes [20.0-40.0 %] 12.9 % *LOW* (09/03/2012 05:58:00) 20.7 % (09/02/2012 12:24:00) Monocytes [2.0-12.0 %] 1.2 % *LOW* (09/03/2012 05:58:00) 5.3 % (09/02/2012 12:24:00) Eosinophils [0.0-4.0 %] 0.0 % (09/03/2012 05:58:00) 1.8 % (09/02/2012 12:24:00) Basophils [0.0-1.0 %] 0.2 % (09/03/2012 05:58:00) 0.3 % (09/02/2012 12:24:00) Segs-Bands # [1.5-8.1 K/CMM] 7.7 K/CMM (09/03/2012 05:58:00) 6.7 K/CMM (09/02/2012 12:24:00) Lymphocytes # [1.0-5.5 K/CMM] 1.2 K/CMM (09/03/2012 05:58:00) 1.9 K/CMM (09/02/2012 12:24:00) Monocytes # [0.0-0.8 K/CMM] 0.1 K/CMM (09/03/2012 05:58:00) 0.5 K/CMM (09/02/2012 12:24:00) Eosinophils # [0.0-0.5 K/CMM] 0.0 K/CMM (09/03/2012 05:58:00) 0.2 K/CMM (09/02/2012 12:24:00) Basophils # [0.0-0.2 K/CMM] 0.0 K/CMM (09/03/2012 05:58:00) 0.0 K/CMM (09/02/2012 12:24:00) RBC Morph Normal (09/03/2012 05:58:00) Plt Morph Normal (09/03/2012 05:58:00) PT [12.0-14.7 seconds] 12.5 seconds (09/02/2012 12:24:00) INR [0.85-1.17] 0.91 12 (09/02/2012 12:24:00) PTT [22.9-35.8 seconds] 37.0 seconds 13 *HI* (09/02/2012 12:24:00) 12Interpretive Data: RECOMMENDED RANGES FOR PROTIME INR: 2.0-3.0 for most medical and surgical thromboembolic states. 2.5-3.5 for artificial heart valves and recurrent embolism. INR SHOULD BE USED ONLY FOR PATIENTS ON STABLE ANTICOAGULANT THERAPY. 13Interpretive Data: Heparin Therapeutic Range: 57 - 92 Seconds Microbiology Reports PROCEDURE:Culture: Urine STATUS: Auth (Verified) BODY SITE: COLLECTED DATE/TIME: 09/02/2012 18:26:00 SOURCE: Urine, Clean Catch FREE TEXT SOURCE: FINAL REPORTS Final Report <10,000 CFU/mL Yeast PRELIMINARY REPORTS Preliminary Report No Growth; Holding PROCEDURE:Culture: Blood STATUS: In Progress BODY SITE: Hand L COLLECTED DATE/TIME: 09/02/2012 13:51:00 SOURCE: Blood FREE TEXT SOURCE: PRELIMINARY REPORTS Preliminary Report No Growth At 2 Days Preliminary Report No Growth; Holding Preliminary Report No Growth At 1 Day PROCEDURE:Culture: Blood STATUS: In Progress BODY SITE: Arm R COLLECTED DATE/TIME: 09/02/2012 13:41:00 SOURCE: Blood FREE TEXT SOURCE: PRELIMINARY REPORTS Preliminary Report No Growth; Holding Preliminary Report No Growth At 2 Days Preliminary Report No Growth At 1 Day Procedures Procedures Date Related Diagnosis Arthroscopy of knee with meniscus repair Cataract surgery Hernia repair
--- OUTSIDE RECORDS SUMMARY | 2018-05-25 13:48 | XMS REPORT | CCD ---
Author Author Auto Generated Organization [facility] Address Unknown Phone Unavailable Care Team Providers Care Engagement Specialist Name Role Phone Cory Damian CP Allergies, Adverse Reactions, Alerts Substance Reaction Status NKDA Active Problem List Condition Effective Dates Status Arthritis Resolved Diabetes mellitus Active Hypertension Active Pneumonia Resolved Medications Medication Instructions Start Date End Date Status azithromycin + 500 mg, Route: IVPB, [id number], 01/08/2013 01/08/2013 Discontinued Sodium Chloride 0.9% Dosing Weight 90.455, kg, Priority: IV 250 mL Routine, Start date: 01/08/13 3:00:00, Duration: 30 day, Stop date: 02/06/13 3:00:00 ceftriaxone + Sodium 1 gm, Route: IVPB, [id number], Dosing 01/08/2013 01/08/2013 Discontinued Chloride 0.9% IV 100 Weight 90.455, kg, Priority: mL Routine, Start date: 01/08/13 3:00:00, Duration: 30 day, Stop date: 02/06/13 3:00:00 Levemir FlexPen 10 unit, 0.1 mL, Route: SUB-Q, Drug 01/09/2013 01/09/2013 Discontinued form: INJ, QAM, Start date: 01/09/13 9:00:00, Duration: 30 day, Stop date: 02/07/13 9:00:00 albuterol-ipratropiu 3 mL, Route: NEB, Drug Form: SOLN, 01/08/2013 01/08/2013 Discontinued m 2.5-0.5 mg Dosing Weight 90.455, kg, PRN, PRN inhalation solution Respiratory Protocol, Start date: 01/08/13 2:39:00, Duration: 30 day, Stop date: 02/07/13 2:38:00 acetaminophen 650 mg, 20.3 mL, Route: PO, Drug 01/08/2013 01/09/2013 Discontinued form: LIQ, Q4H, Dosing Weight 90.455, kg, PRN Pain Score 1-3, For fever > 100.4. Not to exceed 4 grams in 24 hours, Start date: 01/08/13 2:39:00, Duration: 30 day, Stop date: 02/07/13 2:38:00 azithromycin + 500 mg, Route: IVPB, ONCE, Dosing 01/08/2013 01/08/2013 Completed Sodium Chloride 0.9% Weight 90.455, kg, Priority: STAT, IV 250 mL Start date: 01/08/13 0:48:00, Stop date: 01/08/13 0:48:00 ceftriaxone + Sodium 1 gm, Route: IVPB, ONCE, Dosing 01/08/2013 01/08/2013 Completed Chloride 0.9% IV 100 Weight 90.455, kg, Priority: STAT, mL Start date: 01/08/13 0:48:00, Stop date: 01/08/13 0:48:00 DuoNeb inhalation 3 ml, Route: INHALATION, Drug Form: 01/08/2013 01/09/2013 Discontinued solution SOLN, Dosing Weight 90.455, kg, PRN, PRN Respiratory Protocol, Start date: 01/08/13 1:38:00, Duration: 30 day, Stop date: 02/07/13 1:37:00 codeine-guaifenesin 10 mL, Route: PO, Drug Form: LIQ, 01/08/2013 01/09/2013 Discontinued 10 mg-200 mg/5 mL Dosing Weight 93.636, kg, Q4H, PRN oral liquid as needed for cough, Start date: 01/08/13 4:50:00, Duration: 30 day, Stop date: 02/07/13 4:49:00 Zofran 4 mg, 2 mL, Route: IV, Drug form: 01/08/2013 01/09/2013 Discontinued INJ, Q4H, Dosing Weight 93.636, kg, PRN as needed for nausea/vomiting, Start date: 01/08/13 4:50:00, Duration: 30 day, Stop date: 02/07/13 4:49:00 acetaminophen 650 mg, 2 tab, Route: PO, Drug 01/08/2013 01/09/2013 Discontinued form: TAB, Q6H, Dosing Weight 93.636, kg, PRN Pain, Start date: 01/08/13 4:50:00, Duration: 30 day, Stop date: 02/07/13 4:49:00 pantoprazole 40 mg, 1 tab, Route: PO, Drug form: 01/08/2013 01/09/2013 Discontinued ECTAB, Daily, Dosing Weight 93.636, kg, Priority: Routine, Start date: 01/08/13 9:00:00, Stop date: 02/06/13 9:00:00 Pepcid 40 mg, 1 tab, Route: PO, Drug form: 01/07/2013 01/07/2013 Completed TAB, ONCE, Start date: 01/07/13 20:56:00, Stop date: 01/07/13 20:56:00 Dextrose 50% Syringe 25 gm, 50 mL, Route: IVP, Drug 01/08/2013 01/09/2013 Discontinued Form: INJ, Dosing Weight 90.455, kg, PRN, PRN Blood Glucose Results, Start date: 01/08/13 2:41:00, Duration: 30 day, Stop date: 02/07/13 2:40:00 Dextrose 50% Syringe 12.5 gm, 25 mL, Route: IVP, Drug 01/08/2013 01/09/2013 Discontinued Form: INJ, Dosing Weight 90.455, kg, PRN, PRN Blood Glucose Results, Start date: 01/08/13 2:41:00, Duration: 30 day, Stop date: 02/07/13 2:40:00 insulin aspart 4 unit, 0.04 mL, Route: SUB-Q, Drug 01/08/2013 01/09/2013 Discontinued form: SOLN, Bedtime, Dosing Weight 90.455, kg, PRN Blood Glucose Results, Start date: 01/08/13 2:41:00, Duration: 30 day, Stop date: 02/07/13 2:40:00 insulin aspart 3 unit, 0.03 mL, Route: SUB-Q, Drug 01/08/2013 01/09/2013 Discontinued form: SOLN, Bedtime, Dosing Weight 90.455, kg, PRN Blood Glucose Results, Start date: 01/08/13 2:41:00, Duration: 30 day, Stop date: 02/07/13 2:40:00 insulin aspart 2 unit, 0.02 mL, Route: SUB-Q, Drug 01/08/2013 01/09/2013 Discontinued form: SOLN, Bedtime, Dosing Weight 90.455, kg, PRN Blood Glucose Results, Start date: 01/08/13 2:41:00, Duration: 30 day, Stop date: 02/07/13 2:40:00 glucagon 1 mg, Route: IM, Drug form: 01/08/2013 01/09/2013 Discontinued PDR/INJ, PRN, Dosing Weight 90.455, kg, PRN Blood Glucose Results, Start date: 01/08/13 2:41:00, Duration: 30 day, Stop date: 02/07/13 2:40:00 insulin aspart 1 unit, 0.01 mL, Route: SUB-Q, Drug 01/08/2013 01/09/2013 Discontinued form: SOLN, Bedtime, Dosing Weight 90.455, kg, PRN Blood Glucose Results, Start date: 01/08/13 2:41:00, Duration: 30 day, Stop date: 02/07/13 2:40:00 albuterol-ipratropiu 3 mL, Route: NEB, Dosing Weight 01/07/2013 01/07/2013 Completed m 2.5-0.5 mg 90.455, kg, ONCE, STAT, Start date: inhalation solution 01/07/13 20:17:00, Stop date: 01/07/13 20:17:00 Levemir FlexPen 25 unit, 0.25 mL, Route: SUB-Q, 01/09/2013 01/09/2013 Canceled Drug form: INJ, Bedtime, Start date: 01/09/13 21:00:00, Duration: 30 day, Stop date: 02/07/13 21:00:00 NovoLog FlexPen 12 unit, 0.12 mL, Route: SUB-Q, 01/08/2013 01/08/2013 Discontinued Drug form: SOLN, Sliding Scale, PRN Blood Glucose Results, Start date: 01/08/13 8:59:00, Duration: 30 day, Stop date: 02/07/13 8:58:00 NovoLog FlexPen 10 unit, 0.1 mL, Route: SUB-Q, Drug 01/08/2013 01/08/2013 Discontinued form: SOLN, Sliding Scale, PRN Blood Glucose Results, Start date: 01/08/13 8:59:00, Duration: 30 day, Stop date: 02/07/13 8:58:00 NovoLog FlexPen 8 unit, 0.08 mL, Route: SUB-Q, Drug 01/08/2013 01/08/2013 Discontinued form: SOLN, Sliding Scale, PRN Blood Glucose Results, Start date: 01/08/13 8:59:00, Duration: 30 day, Stop date: 02/07/13 8:58:00 NovoLog FlexPen 6 unit, 0.06 mL, Route: SUB-Q, Drug 01/08/2013 01/08/2013 Discontinued form: SOLN, Sliding Scale, PRN Blood Glucose Results, Start date: 01/08/13 8:59:00, Duration: 30 day, Stop date: 02/07/13 8:58:00 NovoLog FlexPen 4 unit, 0.04 mL, Route: SUB-Q, Drug 01/08/2013 01/08/2013 Discontinued form: SOLN, Sliding Scale, PRN Blood Glucose Results, Start date: 01/08/13 8:59:00, Duration: 30 day, Stop date: 02/07/13 8:58:00 NovoLog FlexPen 2 unit, 0.02 mL, Route: SUB-Q, Drug 01/08/2013 01/08/2013 Discontinued form: SOLN, Sliding Scale, PRN Blood Glucose Results, Start date: 01/08/13 8:59:00, Duration: 30 day, Stop date: 02/07/13 8:58:00 Zantac 300 300 mg, Route: PO, ONCE, Dosing 01/07/2013 01/07/2013 Deleted Weight 90.455, kg, Start date: 01/07/13 20:18:00, Stop date: 01/07/13 20:18:00 Levemir FlexPen 15 unit, 0.15 mL, Route: SUB-Q, 01/08/2013 01/09/2013 Discontinued Drug form: INJ, Daily, Dosing Weight 93.636, kg, Start date: 01/08/13 21:00:00, Duration: 30 day, Stop date: 02/06/13 21:00:00 NS 1,000 mL 1,000 mL, Rate: 75 ml/hr, Infuse 01/09/2013 01/09/2013 Discontinued over: 13.3 hr, Route: IV, Dosing Weight 93.636 kg, Total Volume: 1,000, Start date: 01/09/13 8:07:00, Duration: 30 day, Stop date: 02/08/13 8:06:00 DuoNeb inhalation 3 mL, Route: INHALATION, Drug Form: 01/08/2013 01/09/2013 Discontinued solution SOLN, Dosing Weight 93.636, kg, RQ6H, Start date: 01/08/13 8:00:00, Duration: 30 day, Stop date: 02/07/13 2:00:00 SoluMedrol 40 mg, 1 mL, Route: IVP, Drug form: 01/08/2013 01/09/2013 Discontinued INJ, Q12H, Dosing Weight 93.636, kg, Start date: 01/08/13 9:00:00, Duration: 30 day, Stop date: 02/06/13 21:00:00 NovoLog FlexPen 18 unit, 0.18 mL, Route: SUB-Q, 01/08/2013 01/09/2013 Discontinued Drug form: SOLN, Sliding Scale, PRN Blood Glucose Results, Start date: 01/08/13 18:56:00, Duration: 30 day, Stop date: 02/07/13 18:55:00 NovoLog FlexPen 12 unit, 0.12 mL, Route: SUB-Q, 01/08/2013 01/09/2013 Discontinued Drug form: SOLN, Sliding Scale, PRN Blood Glucose Results, Start date: 01/08/13 18:55:00, Duration: 30 day, Stop date: 02/07/13 18:54:00 NovoLog FlexPen 15 unit, 0.15 mL, Route: SUB-Q, 01/08/2013 01/09/2013 Discontinued Drug form: SOLN, Sliding Scale, PRN Blood Glucose Results, Start date: 01/08/13 18:56:00, Duration: 30 day, Stop date: 02/07/13 18:55:00 NovoLog FlexPen 6 unit, 0.06 mL, Route: SUB-Q, Drug 01/08/2013 01/09/2013 Discontinued form: SOLN, Sliding Scale, PRN Blood Glucose Results, Start date: 01/08/13 18:55:00, Duration: 30 day, Stop date: 02/07/13 18:54:00 NovoLog FlexPen 9 unit, 0.09 mL, Route: SUB-Q, Drug 01/08/2013 01/09/2013 Discontinued form: SOLN, Sliding Scale, PRN Blood Glucose Results, Start date: 01/08/13 18:55:00, Duration: 30 day, Stop date: 02/07/13 18:54:00 Diovan 320 mg, 2 tab, Route: PO, Drug 01/08/2013 01/09/2013 Discontinued form: TAB, Daily, Dosing Weight 93.636, kg, Start date: 01/08/13 9:00:00, Duration: 30 day, Stop date: 02/06/13 9:00:00 NovoLog FlexPen 3 unit, 0.03 mL, Route: SUB-Q, Drug 01/08/2013 01/09/2013 Discontinued form: SOLN, Sliding Scale, PRN Blood Glucose Results, Start date: 01/08/13 18:55:00, Duration: 30 day, Stop date: 02/07/13 18:54:00 pneumococcal 0.5 ml, Route: IM, Drug Form: INJ, 01/08/2013 01/08/2013 Discontinued 23-valent vaccine Daily, Start date: 01/08/13 9:00:00, Duration: 1 doses or times, Stop date: 01/08/13 9:00:00 amLODipine 10 mg 10 mg, 1 tab, PO, Daily, 30 tab, 01/09/2013 Ordered oral tablet Substitution Allowed, TAB predniSONE 10 mg 10 mg, 1 tab, PO, Daily, 14 tab, 01/09/2013 01/23/2013 Ordered oral tablet Substitution Allowed, TAB amLODipine 5 mg, 1 tab, Route: PO, Drug form: 01/08/2013 01/08/2013 Completed TAB, ONCE, Dosing Weight 90.455, kg, Start date: 01/08/13 0:23:00, Stop date: 01/08/13 0:23:00 aspirin 81 mg 81 mg, 1 tab, Route: PO, Drug form: 01/08/2013 01/09/2013 Discontinued tablet, chewable CHEWTAB, Daily, Dosing Weight 93.636, kg, Start date: 01/08/13 9:00:00, Duration: 30 day, Stop date: 02/06/13 9:00:00 atorvastatin 10 mg, 1 tab, Route: PO, Drug form: 01/08/2013 01/09/2013 Discontinued TAB, QAM, Dosing Weight 93.636, kg, Start date: 01/08/13 9:00:00, Duration: 30 day, Stop date: 02/06/13 9:00:00 amLODipine 5 mg, 1 tab, Route: PO, Drug form: 01/08/2013 01/09/2013 Discontinued TAB, BID, Dosing Weight 93.636, kg, Start date: 01/08/13 9:00:00, Duration: 30 day, Stop date: 02/06/13 21:00:00 NovoLog FlexPen 8 unit, Route: SUB-Q, Drug form: 01/08/2013 01/08/2013 Discontinued SOLN, Sliding Scale, PRN Blood Glucose Results, Start date: 01/08/13 18:53:00, Duration: 30 day, Stop date: 02/07/13 18:52:00 NovoLog FlexPen 10 unit, Route: SUB-Q, Drug form: 01/08/2013 01/08/2013 Discontinued SOLN, Sliding Scale, PRN Blood Glucose Results, Start date: 01/08/13 18:53:00, Duration: 30 day, Stop date: 02/07/13 18:52:00 NovoLog FlexPen 12 unit, Route: SUB-Q, Drug form: 01/08/2013 01/08/2013 Discontinued SOLN, Sliding Scale, PRN Blood Glucose Results, Start date: 01/08/13 18:53:00, Duration: 30 day, Stop date: 02/07/13 18:52:00 NovoLog FlexPen 2 unit, Route: SUB-Q, Drug form: 01/08/2013 01/08/2013 Discontinued SOLN, Sliding Scale, PRN Blood Glucose Results, Start date: 01/08/13 18:53:00, Duration: 30 day, Stop date: 02/07/13 18:52:00 NovoLog FlexPen 4 unit, Route: SUB-Q, Drug form: 01/08/2013 01/08/2013 Discontinued SOLN, Sliding Scale, PRN Blood Glucose Results, Start date: 01/08/13 18:53:00, Duration: 30 day, Stop date: 02/07/13 18:52:00 NovoLog FlexPen 6 unit, Route: SUB-Q, Drug form: 01/08/2013 01/08/2013 Discontinued SOLN, Sliding Scale, PRN Blood Glucose Results, Start date: 01/08/13 18:53:00, Duration: 30 day, Stop date: 02/07/13 18:52:00 metoprolol tartrate 50 mg, 1 tab, Route: PO, Drug form: 01/08/2013 01/08/2013 Completed TAB, ONCE, Dosing Weight 90.455, kg, Priority: STAT, Start date: 01/08/13 0:23:00, Stop date: 01/08/13 0:23:00 Protonix 40 mg oral 40 mg, 1 tab, PO, Daily, 30 tab, 01/09/2013 Ordered enteric coated Substitution Allowed, ECTAB tablet Immunizations Vaccine Date Status influenza virus vaccine, inactivated1 09/03/2012 Auth (Verified) 1PATIENT STATES RECEIVED IN APRIL OF 2012 AT [facility] Vital Signs Most recent to oldest [Reference Range]: 1 2 3 Height 157.48 cm (01/08/2013 02:47:00) 157.48 cm (01/07/2013 19:46:00) Temperature Oral [96.4-99.1 DegF] 97.8 DegF (01/09/2013 15:30:00) 97.4 DegF (01/09/2013 12:00:00) 97.3 DegF (01/09/2013 08:00:00) Systolic Blood Pressure [90-140 mmHg] 160 mmHg *HI* (01/09/2013 15:30:00) 150 mmHg *HI* (01/09/2013 12:00:00) 149 mmHg *HI* (01/09/2013 08:00:00) Diastolic Blood Pressure [60-90 mmHg] 87 mmHg (01/09/2013 15:30:00) 80 mmHg (01/09/2013 12:00:00) 81 mmHg (01/09/2013 08:00:00) Respiratory Rate [14-20 BRMIN] 18 BRMIN (01/09/2013 15:30:00) 18 BRMIN (01/09/2013 12:00:00) 18 BRMIN (01/09/2013 08:08:00) Peripheral Pulse Rate [60-100 bpm] 90 bpm (01/09/2013 15:30:00) 96 bpm (01/09/2013 12:00:00) 97 bpm (01/09/2013 08:00:00) Weight 93.636 kg (01/08/2013 02:47:00) 90.455 kg (01/07/2013 19:46:00) Results BEDSIDE GLUCOSE TESTING Most recent to oldest [Reference Range]: 1 2 3 Gluc POC Lifscn [70-99 mg/dL] >400 mg/dL 1 *CRIT* (01/09/2013 11:40:00) >400 mg/dL 2 *CRIT* (01/09/2013 11:38:00) 310 mg/dL 3 *HI* (01/09/2013 07:13:00) Comment1 Assess patient *NA* (01/09/2013 11:40:00) Assess patient *NA* (01/09/2013 11:38:00) Notify RN/MD *NA* (01/09/2013 07:13:00) Comment2 Repeat test *NA* (01/09/2013 11:40:00) Notify RN/MD *NA* (01/09/2013 11:38:00) Notify RN/MD *NA* (01/08/2013 16:49:00) Comment3 Notify RN/MD *NA* (01/09/2013 11:40:00) 1Interpretive Data: Upper Reportable Limit: 200 mg/dL. 2Interpretive Data: Upper Reportable Limit: 200 mg/dL. 3Interpretive Data: Upper Reportable Limit: 200 mg/dL. URINALYSIS Most recent to oldest [Reference Range]: 1 2 3 UA Turbidity [Clear] Clear (01/07/2013 20:20:00) UA Color Ltyellow *NA* (01/07/2013 20:20:00) UA pH [5.0-8.0] 6.0 (01/07/2013 20:20:00) UA Spec Grav [<=1.030] 1.013 (01/07/2013 20:20:00) UA Glucose [Negative mg/dL] 50 mg/dL *ABN* (01/07/2013 20:20:00) UA Blood [Negative] Negative (01/07/2013 20:20:00) UA Ketones [Negative mg/dL] Negative mg/dL *NA* (01/07/2013 20:20:00) UA Protein [Negative mg/dL] Negative mg/dL (01/07/2013 20:20:00) UA Urobilinogen [0.1-1.0 mg/dL] <=1.0 mg/dL *NA* (01/07/2013 20:20:00) UA Bili [Negative] Negative *NA* (01/07/2013 20:20:00) UA Leuk Est [Negative] Negative (01/07/2013 20:20:00) UA Nitrite [Negative] Negative (01/07/2013 20:20:00) UA WBC [0-5 /HPF] <1 /HPF (01/07/2013 20:20:00) UA RBC [0-2 /HPF] <1 /HPF (01/07/2013 20:20:00) UA Sq Epi [Few /LPF] Few /LPF *NA* (01/07/2013 20:20:00) CHEMISTRY Most recent to oldest [Reference Range]: 1 2 3 Sodium Lvl [135-145 mEq/L] 138 mEq/L (01/09/2013 03:29:00) 144 mEq/L (01/07/2013 22:30:00) Potassium Lvl [3.5-5.1 mEq/L] 4.1 mEq/L (01/09/2013 03:29:00) 3.9 mEq/L (01/07/2013 22:30:00) Chloride Lvl [95-109 mEq/L] 102 mEq/L (01/09/2013 03:29:00) 106 mEq/L (01/07/2013 22:30:00) CO2 [24-32 mEq/L] 25 mEq/L (01/09/2013 03:29:00) 28 mEq/L (01/07/2013 22:30:00) AGAP [10.0-20.0 mEq/L] 15.1 mEq/L (01/09/2013 03:29:00) 13.9 mEq/L (01/07/2013 22:30:00) Creatinine Lvl [0.5-1.4 mg/dL] 1.5 mg/dL *HI* (01/09/2013 03:29:00) 0.9 mg/dL (01/07/2013 22:30:00) eGFR 33 mL/min/1.73m2 4 *NA* (01/09/2013 03:29:00) 61 mL/min/1.73m2 5 *NA* (01/07/2013 22:30:00) BUN [7-22 mg/dL] 29 mg/dL *HI* (01/09/2013 03:29:00) 18 mg/dL (01/07/2013 22:30:00) B/C Ratio [6-25] 20 (01/07/2013 22:30:00) Glucose Lvl [70-99 mg/dL] 521 mg/dL 6, 7 *CRIT* (01/09/2013 03:29:00) 538 mg/dL 8, 9 *CRIT* (01/09/2013 03:29:00) 491 mg/dL 10, 11 *CRIT* (01/08/2013 16:47:00) Total Protein [6.4-8.4 g/dL] 6.7 g/dL (01/07/2013 22:30:00) Albumin Lvl [3.5-5.0 g/dL] 3.2 g/dL *LOW* (01/07/2013 22:30:00) Globulin [2.0-4.0 g/dL] 3.5 g/dL (01/07/2013 22:30:00) A/G Ratio [0.7-1.6] 0.9 (01/07/2013 22:30:00) Calcium Lvl [8.5-10.5 mg/dL] 8.8 mg/dL (01/09/2013 03:29:00) 9.0 mg/dL (01/07/2013 22:30:00) ALT [0-65 unit/L] 57 unit/L (01/07/2013 22:30:00) AST [0-37 unit/L] 59 unit/L *HI* (01/07/2013 22:30:00) Alk Phos [39-136 unit/L] 270 unit/L *HI* (01/07/2013 22:30:00) Bili Total [0.2-1.3 mg/dL] 0.4 mg/dL (01/07/2013 22:30:00) Lactic Acid Lvl [0.5-2.2 mMol/L] 1.2 mMol/L (01/08/2013 02:07:00) Total CK [12-191 unit/L] 44 unit/L (01/07/2013:30:00) CK MB [0.5-3.6 ng/mL] <0.5 ng/mL (01/07/2013:30:00) CK MB Index [0.0-2.5] <1.1 (01/07/2013:30:00) Troponin-I [0.00-0.40 ng/mL] <0.02 ng/mL (01/07/2013:30:00) BNP [<=100 pg/mL] 68 pg/mL 12 (01/07/2013:26:00) pH Art [7.35-7.45] 7.46 *HI* (01/07/2013:25:00) pCO2 Art [35-45 mmHg] 40 mmHg (01/07/2013:25:00) pO2 Art [80-100 mmHg] 81 mmHg (01/07/2013:25:00) HCO3 Art [22-26 mMol/L] 28 mMol/L *HI* (01/07/2013:25:00) BE Art [-2-2 mMol/L] 4 mMol/L *HI* (01/07/2013:25:00) O2 Sat Art [95.0-100.0 %] 96.5 % (01/07/2013 20:25:00) Site Art Left Rad (01/07/2013 20:25:00) Temp Art 37.0 DegC *NA* (01/07/2013:25:00) Allens Art Positive (01/07/2013:25:00) FiO2 Art Room Air *NA* (01/07/2013 20:25:00) 4Result Comment: The eGFR is calculated using [...] be mul tiplied by the estimated BMI. 6Interpretive Data: Adult reference range values reflect the clinical guidelines of the [employer]. 7Result Comment: Critical Result(s) called to Yehuda Doll at 01/09/2013 04:26 by lt. Read back OK. 8Result Comment: Critical Result(s) called to Yehuda Doll at 01/09/2013 04:25 bylt. Read back OK. 9Interpretive Data: Adult reference range values reflect the clinical guidelines of the [employer]. 10Result Comment: Critical Result(s) called to Rachael Alonso at 01/08/2013 17:58 by RP. Read back OK. 11Interpretive Data: Adult reference range values reflect the clinical guidelines of the [place] [employer]. 12Interpretive Data: Elevated results are in line with increasing severity of congestive heart failure. Minor elevations between 100 and 300 may be seen with Myocardial Ischemia, Sodium retaining drugs, and compensated/treated heart failure. HEMATOLOGY Most recent to oldest [Reference Range]: 1 2 3 WBC [3.7-10.4 K/CMM] 11.1 K/CMM *HI* (01/09/2013:29:00) 8.3 K/CMM (01/07/2013::00) RBC [4.20-5.40 M/CMM] 3.66 M/CMM *LOW* (01/09/2013:29:00) 4.18 M/CMM *LOW* (01/07/2013::00) Hgb [12.0-16.0 g/dL] 12.6 g/dL (01/09/2013:29:00) 13.2 g/dL (01/07/2013:26:00) Hct [36.0-48.0 %] 35.6 % *LOW* (01/09/2013:29:00) 39.3 % (01/07/2013::00) MCV [81.0-99.0 fL] 97.3 fL (01/09/2013::00) 93.9 fL (01/07/2013::00) MCH [27.0-31.0 pg] 34.5 pg *HI* (01/09/2013:29:00) 31.6 pg *HI* (01/07/2013::00) MCHC [32.0-36.0 g/dL] 35.5 g/dL (01/09/2013:29:00) 33.7 g/dL (01/07/2013:26:00) RDW [11.5-14.5 %] 14.0 % (01/09/2013:29:00) 14.9 % *HI* (01/07/2013:26:00) Platelet [133-450 K/CMM] 245 K/CMM (01/09/2013:29:00) 257 K/CMM (01/07/2013:26:00) MPV [7.4-10.4 fL] 8.7 fL (01/09/2013:29:00) 8.8 fL (01/07/2013:26:00) Segs [45.0-75.0 %] 91.7 % *HI* (01/09/2013 03:29:00) 62.5 % (01/07/2013 20:26:00) Lymphocytes [20.0-40.0 %] 7.9 % *LOW* (01/09/2013 03:29:00) 28.2 % (01/07/2013 20:26:00) Monocytes [2.0-12.0 %] 0.4 % *LOW* (01/09/2013 03:29:00) 6.2 % (01/07/2013 20:26:00) Eosinophils [0.0-4.0 %] 0.0 % (01/09/2013 03:29:00) 2.4 % (01/07/2013 20:26:00) Basophils [0.0-1.0 %] 0.0 % (01/09/2013 03:29:00) 0.7 % (01/07/2013 20:26:00) Segs-Bands # [1.5-8.1 K/CMM] 10.2 K/CMM *HI* (01/09/2013 03:29:00) 5.2 K/CMM (01/07/2013 20:26:00) Lymphocytes # [1.0-5.5 K/CMM] 0.9 K/CMM *LOW* (01/09/2013 03:29:00) 2.3 K/CMM (01/07/2013 20:26:00) Monocytes # [0.0-0.8 K/CMM] 0.0 K/CMM (01/09/2013 03:29:00) 0.5 K/CMM (01/07/2013 20:26:00) Eosinophils # [0.0-0.5 K/CMM] 0.0 K/CMM (01/09/2013 03:29:00) 0.2 K/CMM (01/07/2013 20:26:00) Basophils # [0.0-0.2 K/CMM] 0.0 K/CMM (01/09/2013 03:29:00) 0.1 K/CMM (01/07/2013 20:26:00) PT [12.0-14.7 seconds] 12.9 seconds (01/07/2013 22:30:00) INR [0.85-1.17] 0.95 13 (01/07/2013 22:30:00) D-Dimer 0.56 ug/mL FEU 14 *NA* (01/07/2013 22:30:00) PTT [22.9-35.8 seconds] 35.4 seconds 15 (01/07/2013 22:30:00) 13Interpretive Data: RECOMMENDED RANGES FOR PROTIME INR: 2.0-3.0 for most medical and surgical thromboembolic states. 2.5-3.5 for artificial heart valves and recurrent embolism. INR SHOULD BE USED ONLY FOR PATIENTS ON STABLE ANTICOAGULANT THERAPY. 14Interpretive Data: In DIC, quantitative D-Dimer is generally greater than 0.66 ug/mL FEU. Values of quantitative D-Dimer less than 0.40 ug/mL FEU have been reported to be associated with a low probability of deep vein thrombosis/pulmonary embolism. This test alone should not be used to rule out DVT/PE. 15Interpretive Data: Heparin Therapeutic Range: 57 - 92 Seconds Microbiology Reports PROCEDURE:Gram Stain STATUS: Auth (Verified) BODY SITE: COLLECTED DATE/TIME: 01/08/2013 13:50:54 SOURCE: Sputum FREE TEXT SOURCE: FINAL REPORTS Final Report Good Quality Specimen Less Than 25 Squamous Epithelial Cells/Lpf Rare WBC's Rare Gram Positive Cocci PROCEDURE:Culture: Respiratory w/Gram Stain STATUS: Modified BODY SITE: COLLECTED DATE/TIME: 01/08/2013 13:50:54 SOURCE: Sputum FREE TEXT SOURCE: FINAL REPORTS Final Report No Growth; Holding Final Report Normal Respiratory Nohemi Isolated PRELIMINARY REPORTS Preliminary Report No Growth; Holding STAIN REPORTS Stain Report Gram Stain Performed By: [facility] PROCEDURE:Culture: Blood STATUS: In Progress BODY SITE: Left Hand COLLECTED DATE/TIME: 01/08/2013 02:07:00 SOURCE: Blood FREE TEXT SOURCE: PRELIMINARY REPORTS Preliminary Report No Growth At 1 Day Preliminary Report No Growth At 2 Days Preliminary Report No Growth At 3 Days Preliminary Report No Growth; Holding PROCEDURE:Culture: Blood STATUS: In Progress BODY SITE: Left Hand COLLECTED DATE/TIME: 01/08/2013 01:35:00 SOURCE: Blood FREE TEXT SOURCE: PRELIMINARY REPORTS Preliminary Report No Growth At 1 Day Preliminary Report No Growth At 2 Days Preliminary Report No Growth At 3 Days Preliminary Report No Growth; Holding
--- OUTSIDE RECORDS SUMMARY | 2018-05-25 13:49 | XMS REPORT | Summary of Care ---
Author Author [facility] Outpatient Imaging [facility] Outpatient [facility] [place] Address Unknown Phone Unavailable Encounter HQ Gill(FIN) [id number] Date(s): 05/10/16 - 05/10/16 [facility] Outpatient Imaging [place] [address] [place] [phone] Discharge Disposition: Home or Self Care Attending Physician: Em Hansen MD Vital Signs No data available for this section Problem List Condition Effective Dates Status Health Status Informant Arthritis(Confirmed) Resolved Chicken Resolved pox(Confirmed) COPD(Confirmed) Resolved Low serum vitamin Active D(Confirmed) Diabetes(Confirmed) Resolved Disorder associated 08/03/10 Resolved with type 2 diabetes mellitus1 Hyperlipidemia2 08/03/10 Active Mixed Active hyperlipidemia(Confi rmed) Morbid Active obesity(Confirmed) Obesity(Confirmed) Active Obesity3 08/03/10 Active Osteoporosis4 08/03/10 Active Pneumonia(Confirmed) Resolved PUD - Peptic ulcer Resolved disease(Confirmed) Steatosis of liver5 Active Diabetes mellitus Active type 2 in obese(Confirmed) Upper respiratory 01/19/13 Resolved infection6 Urinary tract 04/17/12 Resolved infectious disease7 Vitamin D 04/16/11 Active deficiency8 1Data migrated from [employer] on 12/20/14. 2Data migrated from [employer] on 12/20/14. 3Data migrated from [employer] on 12/20/14. 4Data migrated from [employer] on 12/20/14. 5Data migrated from [employer] on 12/20/14. 6Data migrated from [employer] on 02/04/15. 7Data migrated from [employer] on 02/04/15. 8Data migrated from [employer] on 12/20/14. Allergies, Adverse Reactions, Alerts Substance Reaction Severity Status NKDA Active Medications No data available for this section Results No data available for this section Immunizations Given and Recorded Vaccine Date Status Refusal Reason influenza virus vaccine, inactivated1 09/03/12 Given 1Admin Note: PATIENT STATES RECEIVED IN APRIL OF 2012 AT [facility] Procedures Procedure Date Related Diagnosis Body Site Arthroscopy of knee with meniscus repair Cataract surgery Hernia repair Social History Social History Type Response Substance Abuse Use: None. Exercise Exercise duration: 0. Employment/School Status: Employed. 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 Finch. Assessment and Plan No data available for this section
--- OUTSIDE RECORDS SUMMARY | 2018-05-25 13:49 | XMS REPORT | Summary of Care ---
Author Author [facility] Organization [facility] Address Unknown Phone Unavailable Encounter HQ Gill(FIN) [phone] Date(s): 04/06/16 - 04/06/16 [facility] [address] [place] [address]- Discharge Diagnosis: Hyperkalemia Discharge Disposition: Home or Self Care Attending Physician: Martín Burton MD Vital Signs Most recent to 1 2 oldest [Reference Range]: Height 157.48 cm (04/06/16 1:18 PM) Temperature Oral 98.6 DegF 98.3 DegF [96.4-99.1 DegF] (04/06/16 8:39 PM) (04/06/16 1:18 PM) Blood Pressure 137/54 mmHg 178/77 mmHg [90-140/60-90 mmHg] (04/06/16 8:39 PM) *HI* (04/06/16 1:18 PM) Respiratory Rate 20 BRMIN 18 BRMIN [14-20 BRMIN] (04/06/16 8:39 PM) (04/06/16 1:18 PM) Peripheral Pulse 90 bpm 78 bpm Rate [60-100 bpm] (04/06/16 8:39 PM) (04/06/16 1:18 PM) Weight 99.091 kg (04/06/16 1:18 PM) Body Mass Index 39.96 m2 (04/06/16 1:18 PM) Problem List Condition Effective Dates Status Health [...] Substance Reaction Severity Status NKDA Active Medications d50 syringe 12.5 gm, 25 mL, Route: IVP, Drug Form: INJ, Dosing Weight 99.091, kg, ONCE, STAT , Start date: 04/06/16 15:10:00 CDT, Stop date: 04/06/16 15:10:00 CDT, 25 ml=12. 5 gm Start Date: 04/06/16 Stop Date: 04/06/16 Status: Completed hydrochlorothiazide 25 mg oral tablet 25 mg=1 tab, PO, Daily, # 30 tab, 0 Refill(s) Start Date: 04/06/16 Status: Suspended Insulin regular 5 unit, 0.05 mL, Route: IVP, Drug form: INJ, ONCE, Dosing Weight 99.091, kg, Caitlin ority: STAT, Start date: 04/06/16 15:10:00 CDT, Stop date: 04/06/16 15:10:00 CDT Notes: (Same as: Humulin R and NovoLIN R)WASTE: F/P - Black; E - Karaz Trash Bin (Do not shake) Start Date: 04/06/16 Stop Date: 04/06/16 Status: Completed Kayexalate 30 gm, 120 mL, Route: PO, Drug form: SUSP, ONCE, Dosing Weight 99.091, kg, Prior ity: STAT, Start date: 04/06/16 15:09:00 CDT, Stop date: 04/06/16 15:09:00 CDT Notes: (sodium polystyrene sulfonate 15 gm/60 ml GOLDEN) Shake well before use. (Same as: Kayexalate, SPS) Start Date: 04/06/16 Stop Date: 04/06/16 Status: Completed Saline Flush 0.9% 10 mL, Route: IVP, Drug Form: INJ, Dosing Weight 100.909, kg, PRN, PRN Line Flus h, Start date: 04/06/16 13:24:00 CDT, Duration: 30 day, Stop date: 05/06/16 13:2 3:00 CDT Notes: (Same as: BD Posiflush) Start Date: 04/06/16 Stop Date: 04/06/16 Status: Discontinued Sodium Chloride 0.9% (Bolus) IV 500 mL, 1,000 ml/hr, Infuse Over: 0.5 hr, Route: IV, 500, Drug form: INJ, ONCE, Priority: STAT, Dosing Weight 99.091 kg, Start date: 04/06/16 15:11:00 CDT, Dura tion: 1 doses or times, Stop date: 04/06/16 15:11:00 CDT Start Date: 04/06/16 Stop Date: 04/06/16 Status: Completed Zofran 4 mg, Route: IVP, Drug form: INJ, ONCE, Dosing Weight 99.091, kg, Priority: STAT , Start date: 04/06/16 18:39:00 CDT, Stop date: 04/06/16 18:39:00 CDT Start Date: 04/06/16 Stop Date: 04/06/16 Status: Completed Results ELECTROLYTES Most recent to 1 2 oldest [Reference Range]: Sodium Lvl [135-145 140 mEq/L 139 mEq/L mEq/L] (04/06/16 6:52 PM) (04/06/16 2:21 PM) Potassium Lvl 5.1 mEq/L 5.8 mEq/L 1 [3.5-5.1 mEq/L] (04/06/16 6:52 PM) *HI* (04/06/16 2:21 PM) Chloride Lvl [95-109 112 mEq/L 111 mEq/L mEq/L] *HI* *HI* (04/06/16 6:52 PM) (04/06/16 2:21 PM) CO2 [24-32 mEq/L] 18 mEq/L 18 mEq/L *LOW* *LOW* (04/06/16 6:52 PM) (04/06/16 2:21 PM) AGAP [10.0-20.0 15.1 mEq/L 15.8 mEq/L mEq/L] (04/06/16 6:52 PM) (04/06/16 2:21 PM) 1Result Comment: Specimen is moderately hemolyzed. 04/06/2016 14:35 PERRY CHEM PANEL Most recent to 1 2 oldest [Reference Range]: Creatinine Lvl 1.77 mg/dL 1.80 mg/dL [0.50-1.40 mg/dL] *HI* *HI* (04/06/16 6:52 PM) (04/06/16 2:21 PM) eGFR 26 mL/min/1.73m2 1 26 mL/min/1.73m2 2 *NA* *NA* (04/06/16 6:52 PM) (04/06/16 2:21 PM) BUN [7-22 mg/dL] 47 mg/dL 50 mg/dL *HI* *HI* (04/06/16 6:52 PM) (04/06/16 2:21 PM) B/C Ratio [6-25] 28 *HI* (04/06/16 2:21 PM) Glucose Lvl [70-99 189 mg/dL 122 mg/dL mg/dL] *HI* *HI* (04/06/16 6:52 PM) (04/06/16 2:21 PM) Total Protein 7.5 g/dL [6.4-8.4 g/dL] (04/06/16 2:21 PM) Albumin Lvl [3.5-5.0 3.6 g/dL g/dL] (04/06/16 2:21 PM) Globulin [2.7-4.2 3.9 g/dL g/dL] (04/06/16 2:21 PM) A/G Ratio [0.7-1.6] 0.9 (04/06/16 2:21 PM) Calcium Lvl 9.7 mg/dL 9.4 mg/dL [8.5-10.5 mg/dL] (04/06/16 6:52 PM) (04/06/16 2:21 PM) ALT [0-65 unit/L] 31 unit/L (04/06/16 2:21 PM) AST [0-37 unit/L] 37 unit/L (04/06/16 2:21 PM) Alk Phos [39-136 136 unit/L unit/L] (04/06/16 2:21 PM) Bili Total [0.2-1.3 0.6 mg/dL mg/dL] (04/06/16 2:21 PM) 1Result Comment: The eGFR is calculated [...] be mul tiplied by the estimated BMI. 2Result Comment: The eGFR is calculated using the [...] be mul tiplied by the estimated BMI. CARDIAC ENZYMES Most recent to 1 2 oldest [Reference Range]: Total CK [12-191 103 unit/L unit/L] (04/06/16 2:21 PM) CK MB [0.5-3.6 1.2 ng/mL ng/mL] (04/06/16 2:21 PM) CK MB Index 1.2 [0.0-2.5] (04/06/16 2:21 PM) Troponin-I <0.02 ng/mL [0.00-0.40 ng/mL] (04/06/16 2:21 PM) HEMATOLOGY Most recent to 1 2 oldest [Reference Range]: WBC [3.7-10.4 K/CMM] 20.1 K/CMM *HI* (04/06/16 2:21 PM) RBC [4.20-5.40 4.29 M/CMM M/CMM] (04/06/16 2:21 PM) Hgb [12.0-16.0 g/dL] 13.3 g/dL (04/06/16 2:21 PM) Hct [36.0-48.0 %] 40.7 % (04/06/16 2:21 PM) MCV [80.0-98.0 fL] 94.9 fL (04/06/16 2:21 PM) MCH [27.0-31.0 pg] 30.9 pg (04/06/16 2:21 PM) MCHC [32.0-36.0 32.6 g/dL g/dL] (04/06/16 2:21 PM) RDW [11.5-14.5 %] 14.5 % (04/06/16 2:21 PM) Platelet [133-450 293 K/CMM K/CMM] (04/06/16 2:21 PM) MPV [7.4-10.4 fL] 9.1 fL (04/06/16 2:21 PM) Segs [45.0-75.0 %] 80.6 % *HI* (04/06/16 2:21 PM) Lymphocytes 10.4 % [20.0-40.0 %] *LOW* (04/06/16 2:21 PM) Monocytes [2.0-12.0 7.7 % %] (04/06/16 2:21 PM) Eosinophils [0.0-4.0 0.9 % %] (04/06/16 2:21 PM) Basophils [0.0-1.0 0.4 % %] (04/06/16 2:21 PM) Segs-Bands # 16.2 K/CMM [1.5-8.1 K/CMM] *HI* (04/06/16 2:21 PM) Lymphocytes # 2.1 K/CMM [1.0-5.5 K/CMM] (04/06/16 2:21 PM) Monocytes # [0.0-0.8 1.5 K/CMM K/CMM] *HI* (04/06/16 2:21 PM) Eosinophils # 0.2 K/CMM [0.0-0.5 K/CMM] (04/06/16 2:21 PM) Basophils # [0.0-0.2 0.1 K/CMM K/CMM] (04/06/16 2:21 PM) RBC Morph Normal (04/06/16 2:21 PM) Plt Morph Normal (04/06/16 2:21 PM) PTT [22.9-35.8] See Note 1 (04/06/16 2:21 PM) 1Result Comment: The PTT result of 19.4 should be interpreted with caution due to : CLOTTED SAMPLE. Report and correction called to Glenroy Fonseca by Yehuda Smiley at 04/06/2016 14:56. Recollection is recommended. Read Back Ok. Immunizations Given and Recorded Vaccine Date Status Refusal Reason influenza virus vaccine, inactivated1 09/03/12 Given 1Admin Note: PATIENT STATES RECEIVED IN APRIL OF 2012 AT [facility] Procedures Procedure Date Related Diagnosis Body Site [...]
--- OUTSIDE RECORDS SUMMARY | 2018-05-25 13:49 | XMS REPORT | Summary of Care ---
Author Author [facility] Organization [facility] Address Unknown Phone Unavailable Encounter NAVEED Garland(LILIA) [id number] Date(s): 10/01/15 - 10/01/15 [facility] [address] [place] [address]- Discharge Diagnosis: Acute UTI Discharge Diagnosis: Generalized weakness Discharge Disposition: Home Attending Physician: Jaxson Morel MD Vital Signs 1 2 3 Most recent to oldest [Reference Range]: 157.48 cm (10/01/15 8:01 AM) Height 98.2 DegF (10/01/15 12:38 PM) 97.6 DegF (10/01/15 8:01 AM) Temperature Oral [96.4-99.1 DegF] 156/60 mmHg *HI* (10/01/15 12:38 PM) 161/65 mmHg *HI* (10/01/15 10:41 AM) 166/83 mmHg *HI* (10/01/15 8:01 AM) Blood Pressure [90-140/60-90 mmHg] 18 BRMIN (10/01/15 12:38 PM) 21 BRMIN *HI* (10/01/15 10:41 AM) 17 BRMIN (10/01/15 8:01 AM) Respiratory Rate [14-20 BRMIN] 74 bpm (10/01/15 12:38 PM) 63 bpm (10/01/15 10:41 AM) 74 bpm (10/01/15 8:01 AM) Peripheral Pulse Rate [60-100 bpm] 97.273 kg (10/01/15 8:01 AM) Weight 39.22 m2 (10/01/15 8:01 AM) Body Mass Index Problem List Condition Effective Dates Status Health Status Informant Arthritis(Confirmed) Resolved Chicken Resolved pox(Confirmed) COPD(Confirmed) Resolved Diabetes(Confirmed) Resolved Disorder associated 08/03/10 Resolved with type 2 diabetes mellitus1 Hyperlipidemia2 08/03/10 Active Obesity(Confirmed) Active Obesity3 08/03/10 Active Osteoporosis4 08/03/10 [...] Alerts Substance Reaction Severity Status NKDA Active NKDA1 Active 1Data migrated from [employer] on 09/23/15. Originally documented as NKA. Medications albuterol 0.083% inhalation solution 2.49 mg, 3 mL, Route: NEB, Drug form: SOLN, ONCE, Dosing Weight 97.273, kg, Prio rity: STAT, Start date: 10/01/15 11:28:00, Stop date: 10/01/15 11:28:00 Notes: SEE RT DOCUMENTATION (Same as: Naz) Start Date: 10/01/15 Stop Date: 10/01/15 Status: Completed Keflex 500 mg oral capsule 500 mg=1 cap, PO, QID, X 10 day, # 40 cap, 0 Refill(s), Pharmacy: [facility] [id number] Start Date: 10/01/15 Stop Date: 10/11/15 Status: Ordered Saline Flush 0.9% 10 mL, Route: IVP, Drug Form: INJ, Dosing Weight 97.273, kg, PRN, PRN Line Flush , Start date: 10/01/15 8:20:00, Duration: 30 day, Stop date: 10/31/15 9:19:00 Notes: (Same as: BD Posiflush) Start Date: 10/01/15 Stop Date: 10/01/15 Status: Discontinued Results ELECTROLYTES Most recent to 1 oldest [Reference Range]: Sodium Lvl [135-145 141 mEq/L mEq/L] (10/01/15 8:53 AM) Potassium Lvl 4.0 mEq/L [3.5-5.1 mEq/L] (10/01/15 8:53 AM) Chloride Lvl [95-109 108 mEq/L mEq/L] (10/01/15 8:53 AM) CO2 [24-32 mEq/L] 25 mEq/L (10/01/15 8:53 AM) AGAP [10.0-20.0 12.0 mEq/L mEq/L] (10/01/15 8:53 AM) CHEM PANEL Most recent to 1 oldest [Reference Range]: Creatinine Lvl 1.10 mg/dL [0.50-1.40 mg/dL] (10/01/15 8:53 AM) eGFR 47 mL/min/1.73m2 1 *NA* (10/01/15 8:53 AM) BUN [7-22 mg/dL] 24 mg/dL *HI* (10/01/15 8:53 AM) B/C Ratio [6-25] 22 (10/01/15 8:53 AM) Glucose Lvl [70-99 120 mg/dL mg/dL] *HI* (10/01/15 8:53 AM) Total Protein 6.8 g/dL [6.4-8.4 g/dL] (10/01/15 8:53 AM) Albumin Lvl [3.5-5.0 3.3 g/dL g/dL] *LOW* (10/01/15 8:53 AM) Globulin [2.0-4.0 3.5 g/dL g/dL] (10/01/15 8:53 AM) A/G Ratio [0.7-1.6] 0.9 (10/01/15 8:53 AM) Calcium Lvl 9.3 mg/dL [8.5-10.5 mg/dL] (10/01/15 8:53 AM) ALT [0-65 unit/L] 38 unit/L (10/01/15 8:53 AM) AST [0-37 unit/L] 29 unit/L (10/01/15 8:53 AM) Alk Phos [39-136 151 unit/L unit/L] *HI* (10/01/15 8:53 AM) Bili Total [0.2-1.3 0.5 mg/dL mg/dL] (10/01/15 8:53 AM) 1Result Comment: The eGFR is calculated [...] BMI. CARDIAC ENZYMES Most recent to 1 oldest [Reference Range]: Total CK [12-191 51 unit/L unit/L] (10/01/15 8:53 AM) CK MB [0.5-3.6 0.8 ng/mL ng/mL] (10/01/15 8:53 AM) CK MB Index 1.6 [0.0-2.5] (10/01/15 8:53 AM) Troponin-I <0.02 ng/mL [0.00-0.40 ng/mL] (10/01/15 8:53 AM) URINE AND STOOL Most recent to 1 oldest [Reference Range]: UA Turbidity [Clear] Clear (10/01/15 9:38 AM) UA Color Ltyellow *NA* (10/01/15 9:38 AM) UA pH [5.0-8.0] 5.0 (10/01/15 9:38 AM) UA Spec Grav 1.014 [<=1.030] (10/01/15 9:38 AM) UA Glucose [Negative 500 mg/dL mg/dL] *ABN* (10/01/15 9:38 AM) UA Blood [Negative] Small *ABN* (10/01/15 9:38 AM) UA Ketones [Negative Negative mg/dL mg/dL] *NA* (10/01/15 9:38 AM) UA Protein [Negative Negative mg/dL mg/dL] (10/01/15 9:38 AM) UA Urobilinogen <=1.0 mg/dL [0.1-1.0 mg/dL] *NA* (10/01/15 9:38 AM) UA Bili [Negative] Negative *NA* (10/01/15 9:38 AM) UA Leuk Est Moderate [Negative] *ABN* (10/01/15 9:38 AM) UA Nitrite Negative [Negative] (10/01/15 9:38 AM) UA WBC [0-5 /HPF] 18 /HPF *HI* (10/01/15 9:38 AM) UA RBC [0-2 /HPF] 7 /HPF *HI* (10/01/15 9:38 AM) UA Bacteria [None Occasional /HPF Seen /HPF] *NA* (10/01/15 9:38 AM) UA Sq Epi [Few /LPF] Occasional /LPF *NA* (10/01/15 9:38 AM) HEMATOLOGY Most recent to 1 oldest [Reference Range]: WBC [3.7-10.4 K/CMM] 7.5 K/CMM (10/01/15 8:53 AM) RBC [4.20-5.40 4.37 M/CMM M/CMM] (10/01/15 8:53 AM) Hgb [12.0-16.0 g/dL] 13.1 g/dL (10/01/15 8:53 AM) Hct [36.0-48.0 %] 40.1 % (10/01/15 8:53 AM) MCV [80.0-98.0 fL] 91.7 fL (10/01/15 8:53 AM) MCH [27.0-31.0 pg] 29.9 pg (10/01/15 8:53 AM) MCHC [32.0-36.0 32.7 g/dL g/dL] (10/01/15 8:53 AM) RDW [11.5-14.5 %] 15.0 % *HI* (10/01/15 8:53 AM) Platelet [133-450 288 K/CMM K/CMM] (10/01/15 8:53 AM) MPV [7.4-10.4 fL] 7.9 fL (10/01/15 8:53 AM) Segs [45.0-75.0 %] 60.3 % (10/01/15 8:53 AM) Lymphocytes 28.3 % [20.0-40.0 %] (10/01/15 8:53 AM) Monocytes [2.0-12.0 7.1 % %] (10/01/15 8:53 AM) Eosinophils [0.0-4.0 3.6 % %] (10/01/15 8:53 AM) Basophils [0.0-1.0 0.7 % %] (10/01/15 8:53 AM) Segs-Bands # 4.5 K/CMM [1.5-8.1 K/CMM] (10/01/15 8:53 AM) Lymphocytes # 2.1 K/CMM [1.0-5.5 K/CMM] (10/01/15 8:53 AM) Monocytes # [0.0-0.8 0.5 K/CMM K/CMM] (10/01/15 8:53 AM) Eosinophils # 0.3 K/CMM [0.0-0.5 K/CMM] (10/01/15 8:53 AM) Basophils # [0.0-0.2 0.1 K/CMM K/CMM] (10/01/15 8:53 AM) Immunizations Vaccine Date Refusal Reason influenza virus vaccine, inactivated1 09/03/12 1Admin Note: PATIENT STATES RECEIVED IN APRIL OF 2012 AT [facility] Procedures Procedure Date Related Diagnosis Body Site Arthroscopy of knee with meniscus repair Cataract surgery Hernia repair Social History Social History Type Response Substance Abuse Use: None. Exercise Exercise duration: 0. Employment/School Status: Employed. 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 Finch. Assessment and Plan No data available for this section
--- OUTSIDE RECORDS SUMMARY | 2018-05-25 13:49 | XMS REPORT | Summary of Care ---
Author Author [facility] Organization [facility] Address Unknown Phone Unavailable Encounter HQ Gill(LILIA) [id number] Date(s): 04/07/16 - 04/09/16 [facility] [address] [place] [address]- Discharge Disposition: Home or Self Care Attending Physician: Aviva Cruz MD Admitting Physician: Aviva Cruz MD Vital Signs 1 2 3 Most recent to oldest [Reference Range]: 157.48 cm (04/07/16 9:23 AM) 167.64 cm (04/07/16 5:55 AM) Height 98.1 DegF (04/09/16 4:00 PM) 97.8 DegF (04/09/16 11:36 AM) 98.2 DegF (04/09/16 8:00 AM) Temperature Oral [96.4-99.1 DegF] 148/72 mmHg *HI* (04/09/16 4:00 PM) 136/72 mmHg (04/09/16 11:36 AM) 130/72 mmHg (04/09/16 8:00 AM) Blood Pressure [90-140/60-90 mmHg] 16 BRMIN (04/09/16 4:00 PM) 16 BRMIN (04/09/16 11:36 AM) 16 BRMIN (04/09/16 8:00 AM) Respiratory Rate [14-20 BRMIN] 91 bpm (04/09/16 4:00 PM) 93 bpm (04/09/16 11:36 AM) 71 bpm (04/09/16 8:00 AM) Peripheral Pulse Rate [60-100 bpm] 99.091 kg (04/07/16 9:23 AM) 100 kg (04/07/16 5:55 AM) Weight 39.96 m2 (04/07/16 9:23 AM) 35.58 m2 (04/07/16 5:55 AM) Body Mass Index Problem List Condition [...] Substance Reaction Severity Status NKDA Active Medications acetaminophen 325 mg, 1 tab, Route: PO, Drug form: TAB, Q4H, Dosing Weight 100, kg, PRN Pain S core 4-6, Start date: 04/07/16 9:14:00 CDT, Duration: 30 day, Stop date: 6 9:13:00 CDT Notes: Do not exceed 4 gm/day. (Same as: Tylenol) Start Date: 04/07/16 Stop Date: 04/09/16 Status: Discontinued albuterol 0.083% inhalation solution 2.49 mg, 3 mL, Route: INHALATION, Drug form: SOLN, RQ4H, Dosing Weight 99.091, k g, PRN Wheezing, Start date: 04/08/16 21:30:00 CDT, Duration: 30 day, Stop date: 05/08/16 21:29:00 CDT Notes: SEE RT DOCUMENTATION (Same as: Proventil) Start Date: 04/08/16 Stop Date: 04/09/16 Status: Discontinued albuterol 0.083% inhalation solution 1.245 mg, 1.5 mL, Route: PO, Drug form: SOLN, RQ4H, Dosing Weight 99.091, kg, OH N Wheezing, Start date: 04/08/16 19:01:00 CDT, Duration: 30 day, Stop date: 04/21 03/06 19:00:00 CDT Notes: SEE RT DOCUMENTATION (Same as: Proventil) Start Date: 04/08/16 Stop Date: 04/08/16 Status: Discontinued aspirin 81 mg tablet, chewable 81 mg, 1 tab, Route: PO, Drug form: CHEWTAB, Daily, Dosing Weight 99.091, kg, St art date: 04/07/16 12:00:00 CDT, Duration: 30 day, Stop date: 05/07/16 9:00:00 C DT Notes: Take with food. Start Date: 04/07/16 Stop Date: 04/09/16 Status: Discontinued atorvastatin 10 mg, 1 tab, Route: PO, Drug form: TAB, Bedtime, Dosing Weight 99.091, kg, Star t date: 04/07/16 21:00:00 CDT, Duration: 30 day, Stop date: 05/06/16 21:00:00 CD T Notes: (Same As: Lipitor) Start Date: 04/07/16 Stop Date: 04/09/16 Status: Discontinued azelastine nasal 0.1% (137 mcg/inh) spray 1 inhalation, Route: NASAL, Drug Form: SPRY, Dosing Weight 99.091, kg, Bedtime, Start date: 04/09/16 21:00:00 CDT, Duration: 30 day, Stop date: 05/08/16 21:00:0 0 CDT Notes: (azelastine 137 microgram/inh 34 ml nasal SPR) Non-formulary drug. Same As: Astelin) Start Date: 04/09/16 Stop Date: 04/09/16 Status: Canceled cefTRIAXone 1 gm, Route: IVPB, Drug form: PDR/INJ, ONCE, Dosing Weight 100, kg, Priority: ST AT, Start date: 04/07/16 6:32:00 CDT, Stop date: 04/07/16 6:32:00 CDT Start Date: 04/07/16 Stop Date: 04/07/16 Status: Completed Cipro 500 mg oral tablet 500 mg=1 tab, PO, Q12H, X 12 day, # 24 tab, 0 Refill(s) Start Date: 04/09/16 Stop Date: 04/21/16 Status: Ordered Dextrose 50% Syringe 25 gm, 50 mL, Route: IVP, Drug Form: INJ, Dosing Weight 99.091, kg, PRN, PRN Blo od Glucose Results, Start date: 04/07/16 12:44:00 CDT, Duration: 30 day, Stop da te: 05/07/16 12:43:00 CDT Start Date: 04/07/16 Stop Date: 04/09/16 Status: Discontinued Dextrose 50% Syringe 12.5 gm, 25 mL, Route: IVP, Drug Form: INJ, Dosing Weight 99.091, kg, PRN, PRN B lood Glucose Results, Start date: 04/07/16 12:44:00 CDT, Duration: 30 day, Stop date: 05/07/16 12:43:00 CDT Start Date: 04/07/16 Stop Date: 04/09/16 Status: Discontinued docusate 100 mg, 1 cap, Route: PO, Drug form: CAP, BID, Dosing Weight 100, kg, PRN Consti pation, Start date: 04/07/16 9:14:00 CDT, Duration: 30 day, Stop date: 05/07/16 9:13:00 CDT Notes: (Same as: Colace) (Do Not Crush) Start Date: 04/07/16 Stop Date: 04/09/16 Status: Discontinued docusate-senna 50 mg-8.6 mg oral tablet 1 tab, PO, BID, X 30 day, # 60 tab, 0 Refill(s) Start Date: 04/09/16 Stop Date: 05/09/16 Status: Ordered docusate-senna 50 mg-8.6 mg oral tablet 1 tab, Route: PO, Drug Form: TAB, Dosing Weight 99.091, kg, BID, Start date: 9:17:00 CDT, Duration: 30 day, Stop date: 05/08/16 9:00:00 CDT Notes: (Same as Emanuel) Equiv. to Anamaria-Colace. Start Date: 04/08/16 Stop Date: 04/09/16 Status: Discontinued glucagon 1 mg, Route: IM, Drug form: PDR/INJ, PRN, Dosing Weight 99.091, kg, PRN Blood Gl ucose Results, Start date: 04/07/16 12:44:00 CDT, Duration: 30 day, Stop date: 1 12:43:00 CDT Start Date: 04/07/16 Stop Date: 04/09/16 Status: Discontinued heparin 5,000 unit, 1 mL, Route: SUB-Q, Drug form: INJ, Q8H, Dosing Weight 99.091, kg, S tart date: 04/07/16 16:00:00 CDT, Duration: 30 day, Stop date: 05/07/16 8:00:00 CDT Notes: porcine heparin Start Date: 04/07/16 Stop Date: 04/09/16 Status: Discontinued insulin aspart 10 unit, 0.1 mL, Route: SUB-Q, Drug form: SOLN, TID-Before Meals, Dosing Weight 99.091, kg, PRN Blood Glucose Results, Start date: 04/07/16 12:44:00 CDT, Durati on: 30 day, Stop date: 05/07/16 12:43:00 CDT Notes: Roll in palms of hands gently; Do not shake vigorously. (Same as: Nandini Cano)"single patient use only"WASTE: F/P - Black; E - Municipal Trash Bin Stable f or 28 days at room temperature.Expires in days from Date Start Date: 04/07/16 Stop Date: 04/09/16 Status: Discontinued insulin aspart 6 unit, 0.06 mL, Route: SUB-Q, Drug form: SOLN, TID-Before Meals, Dosing Weight 99.091, kg, PRN Blood Glucose Results, Start date: 04/07/16 12:44:00 CDT, Durati on: 30 day, Stop date: 05/07/16 12:43:00 CDT Notes: Roll in palms of hands gently; Do not shake vigorously. (Same as: NovoLO G)"single patient use only"WASTE: F/P - Black; E - Municipal Trash Bin Stable f or 28 days at room temperature.Expires in days from Date Start Date: 04/07/16 Stop Date: 04/09/16 Status: Discontinued insulin aspart 8 unit, 0.08 mL, Route: SUB-Q, Drug form: SOLN, TID-Before Meals, Dosing Weight 99.091, kg, PRN Blood Glucose Results, Start date: 04/07/16 12:44:00 CDT, Durati on: 30 day, Stop date: 05/07/16 12:43:00 CDT Notes: Roll in palms of hands gently; Do not shake vigorously. (Same as: NovoLO G)"single patient use only"WASTE: F/P - Black; E - Municipal Trash Bin Stable f or 28 days at room temperature.Expires in days from Date Start Date: 04/07/16 Stop Date: 04/09/16 Status: Discontinued insulin aspart 4 unit, 0.04 mL, Route: SUB-Q, Drug form: SOLN, TID-Before Meals, Dosing Weight 99.091, kg, PRN Blood Glucose Results, Start date: 04/07/16 12:44:00 CDT, Durati on: 30 day, Stop date: 05/07/16 12:43:00 CDT Notes: Roll in palms of hands gently; Do not shake vigorously. (Same as: NovoKRISTA G)"single patient use only"WASTE: F/P - Black; E - Municipal Trash Bin Stable f or 28 days at room temperature.Expires in days from Date Start Date: 04/07/16 Stop Date: 04/09/16 Status: Discontinued insulin aspart 2 unit, 0.02 mL, Route: SUB-Q, Drug form: SOLN, TID-Before Meals, Dosing Weight 99.091, kg, PRN Blood Glucose Results, Start date: 04/07/16 12:44:00 CDT, Durati on: 30 day, Stop date: 05/07/16 12:43:00 CDT Notes: Roll in palms of hands gently; Do not shake vigorously. (Same as: NovoLO G)"single patient use only"WASTE: F/P - Black; E - Municipal Trash Bin Stable f or 28 days at room temperature.Expires in days from Date Start Date: 04/07/16 Stop Date: 04/09/16 Status: Discontinued insulin detemir 35 unit, 0.35 mL, Route: SUB-Q, Drug form: INJ, Bedtime, Dosing Weight 99.091, k g, Start date: 04/07/16 21:00:00 CDT, Duration: 30 day, Stop date: 05/06/16 21:0 0:00 CDT Notes: Same as LevemirDo not hold insulin without contacting prescriberWASTE: F/ P - Black; E - Municipal Trash Bin "single patient use only" Start Date: 04/07/16 Stop Date: 04/09/16 Status: Discontinued insulin detemir 35 unit, 0.35 mL, Route: SUB-Q, Drug form: INJ, Daily, Dosing Weight 99.091, kg, Start date: 04/08/16 9:00:00 CDT, Duration: 30 day, Stop date: 05/07/16 9:00:00 CDT Notes: Same as LevemirDo not hold insulin without contacting prescriberWASTE: F/ P - Black; E - Municipal Trash Bin "single patient use only" Start Date: 04/08/16 Stop Date: 04/07/16 Status: Canceled meropenem 1,000 mg, Route: IVPB, Drug form: PDR/INJ, Q8H, Dosing Weight 99.091, kg, CrCl > 50, Extended infusion, infuse over 3 hours, Start date: 04/07/16 16:00:00 CDT, D uration: 30 day, Stop date: 05/07/16 8:00:00 CDT Start Date: 04/07/16 Stop Date: 04/07/16 Status: Canceled meropenem + sodium chloride 0.9% INJ 100 mL 500 mg, Route: IVPB, ABXQ8H, Dosing Weight 99.091, kg, CrCL=26 -49 ml/min, Exten ded infusion, infuse over 3 hours, Start date: 04/07/16 12:00:00 CDT, Duration: 30 day, Stop date: 05/07/16 4:00:00 CDT Notes: Same as Merrem MEDICATION WASTE Product Size: 500 mgProduct Wast ed: ___ mg Start Date: 04/07/16 Stop Date: 04/09/16 Status: Discontinued MiraLax 17 gm, 1 pkt, Route: PO, Drug form: PWDR, ONCE, Dosing Weight 99.091, kg, Start date: 04/08/16 9:18:00 CDT, Duration: 1 doses or times, Stop date: 04/08/16 9:18 :00 CDT Notes: Dissolve in 8 oz of water or juice.(Same as: Miralax) Start Date: 04/08/16 Stop Date: 04/08/16 Status: Completed NS (Bolus) IV 1,000 mL, 1,000 ml/hr, Infuse Over: 1 hr, Route: IV, ONCE, Priority: STAT, Dosin g Weight 100 kg, Start date: 04/07/16 6:34:00 CDT, Duration: 1 doses or times, S top date: 04/07/16 6:34:00 CDT Start Date: 04/07/16 Stop Date: 04/07/16 Status: Completed NS (Bolus) IV 1,000 mL, 1,000 ml/hr, Infuse Over: 1 hr, Route: IV, ONCE, Priority: STAT, Dosin g Weight 100 kg, Start date: 04/07/16 6:34:00 CDT, Duration: 1 doses or times, S top date: 04/07/16 6:34:00 CDT Start Date: 04/07/16 Stop Date: 04/07/16 Status: Completed ondansetron 4 mg, 2 mL, Route: IVP, Drug form: INJ, Q6H, Dosing Weight 100, kg, PRN Nausea & Vomiting, Start date: 04/07/16 9:14:00 CDT, Duration: 30 day, Stop date: 9:13:00 CDT Notes: (Same as: Tracy) MEDICATION WASTE Product Size: 4 mgProduct Was bernadette: ___ mg Start Date: 04/07/16 Stop Date: 04/09/16 Status: Discontinued pantoprazole 40 mg, 1 tab, Route: PO, Drug form: ECTAB, Before Dinner, Dosing Weight 99.091, kg, Start date: 04/07/16 16:30:00 CDT, Duration: 30 day, Stop date: 05/06/16 16: 30:00 CDT Notes: Tablet should not be chewed or crushed.(Same as: Protonix) Start Date: 04/07/16 Stop Date: 04/09/16 Status: Discontinued Saline Flush 0.9% 10 mL, Route: IVP, Drug Form: INJ, Dosing Weight 100, kg, PRN, PRN Line Flush, S tart date: 04/07/16 6:34:00 CDT, Duration: 30 day, Stop date: 05/07/16 6:33:00 C DT Notes: preservative free. Start Date: 04/07/16 Stop Date: 04/07/16 Status: Discontinued Singulair 4 mg, 1 tab, Route: PO, Drug form: CHEWTAB, QPM, Dosing Weight 99.091, kg, Start date: 04/07/16 17:00:00 CDT, Duration: 30 day, Stop date: 05/06/16 17:00:00 CDT Notes: (Same as:Singulair) Start Date: 04/07/16 Stop Date: 04/09/16 Status: Discontinued sodium chloride 0.45% 1000 ml INJ 1,000 mL 1,000 mL, Rate: 125 ml/hr, Infuse over: 8 hr, Route: IV, Dosing Weight 99.091 kg , Total Volume: 1,000, Start date: 04/08/16 8:01:00 CDT, Duration: 24 hr, Stop d ate: 04/09/16 8:06:00 CDT Start Date: 04/08/16 Stop Date: 04/09/16 Status: Completed Sodium Chloride 0.9% (Bolus) IV 2,000 mL, 1,000 ml/hr, Infuse Over: 2 hr, Route: IV, 2,000, Drug form: INJ, ONCE , Priority: STAT, Dosing Weight 99.091 kg, Start date: 04/08/16 8:01:00 CDT, Sto p date: 04/08/16 8:01:00 CDT Start Date: 04/08/16 Stop Date: 04/08/16 Status: Completed Tylenol with Codeine #3 oral tablet 1 tab, Route: PO, Drug Form: TAB, Dosing Weight 100, kg, ONCE, STAT, Start date: 04/07/16 7:06:00 CDT, Stop date: 04/07/16 7:06:00 CDT Notes: Do not exceed 4gm/day of acetaminophen. (Same as: Tylenol with Codeine # 3) Start Date: 04/07/16 Stop Date: 04/07/16 Status: Completed Ventolin HFA 90 mcg/inh inhalation aerosol with adapter 2 puff, Route: INHALER, Drug Form: AERO/A, Dosing Weight 99.091, kg, Q4H, PRN as needed for wheezing, Start date: 04/07/16 11:27:00 CDT, Duration: 30 day, Stop date: 05/07/16 11:26:00 CDT Notes: Albuterol 90 microgram/inh 8gm HFAWASTE: Aerosol - Return to Pharmacy [facility] as: Jamal Newelltil Start Date: 04/07/16 Stop Date: 04/09/16 Status: Discontinued Results ELECTROLYTES 1 2 3 Most recent to oldest [Reference Range]: 143 mEq/L (04/09/16 6:22 AM) 140 mEq/L (04/08/16 8:55 AM) 139 mEq/L (04/07/16 6:38 AM) Sodium Lvl [135-145 mEq/L] 4.4 mEq/L (04/09/16 6:22 AM) 4.6 mEq/L (04/08/16 8:55 AM) 4.3 mEq/L (04/07/16 6:38 AM) Potassium Lvl [3.5-5.1 mEq/L] 115 mEq/L *HI* (04/09/16 6:22 AM) 111 mEq/L *HI* (04/08/16 8:55 AM) 110 mEq/L *HI* (04/07/16 6:38 AM) Chloride Lvl [95-109 mEq/L] 17 mEq/L *LOW* (04/09/16 6:22 AM) 19 mEq/L *LOW* (04/08/16 8:55 AM) 24 mEq/L (04/07/16 6:38 AM) CO2 [24-32 mEq/L] 15.4 mEq/L (04/09/16 6:22 AM) 14.6 mEq/L (04/08/16 8:55 AM) 9.3 mEq/L *LOW* (04/07/16 6:38 AM) AGAP [10.0-20.0 mEq/L] CHEM PANEL 1 2 3 Most recent to oldest [Reference Range]: 1.59 mg/dL *HI* (04/09/16 6:22 AM) 2.16 mg/dL *HI* (04/08/16 8:55 AM) 1.88 mg/dL *HI* (04/07/16 12:52 PM) Creatinine Lvl [0.50-1.40 mg/dL] 30 mL/min/1.73m2 1 *NA* (04/09/16 6:22 AM) 21 mL/min/1.73m2 2 *NA* (04/08/16 8:55 AM) 25 mL/min/1.73m2 3 *NA* (04/07/16 12:52 PM) eGFR 42 mg/dL *HI* (04/09/16 6:22 AM) 54 mg/dL *HI* (04/08/16 8:55 AM) 45 mg/dL *HI* (04/07/16 6:38 AM) BUN [7-22 mg/dL] 25 (04/07/16 6:38 AM) B/C Ratio [6-25] 135 mg/dL *HI* (04/09/16 6:22 AM) 195 mg/dL *HI* (04/08/16 8:55 AM) 117 mg/dL *HI* (04/07/16 6:38 AM) Glucose Lvl [70-99 mg/dL] 6.9 g/dL (04/07/16 6:38 AM) Total Protein [6.4-8.4 g/dL] 3.3 g/dL *LOW* (04/07/16 6:38 AM) Albumin Lvl [3.5-5.0 g/dL] 3.6 g/dL (04/07/16 6:38 AM) Globulin [2.7-4.2 g/dL] 0.9 (04/07/16 6:38 AM) A/G Ratio [0.7-1.6] 8.2 mg/dL *LOW* (04/09/16 6:22 AM) 8.2 mg/dL *LOW* (04/08/16 8:55 AM) 9.0 mg/dL (04/07/16 6:38 AM) Calcium Lvl [8.5-10.5 mg/dL] 3.1 mg/dL (04/09/16 6:22 AM) 3.5 mg/dL (04/08/16 8:55 AM) Phosphorus [2.5-4.5 mg/dL] 2.0 mg/dL (04/09/16 6:22 AM) 2.0 mg/dL (04/08/16 8:55 AM) Magnesium Lvl [1.8-2.4 mg/dL] 48 unit/L (04/07/16 6:38 AM) ALT [0-65 unit/L] 56 unit/L *HI* (04/07/16 6:38 AM) AST [0-37 unit/L] 142 unit/L *HI* (04/07/16 6:38 AM) Alk Phos [39-136 unit/L] 1.0 mg/dL (04/07/16 6:38 AM) Bili Total [0.2-1.3 mg/dL] 1.9 mMol/L (04/07/16 6:59 AM) Lactic Acid Lvl [0.5-2.2 mMol/L] 0.35 ng/mL *HI* (04/07/16 6:38 AM) Procalcitonin Lvl [0.00-0.10 ng/mL] 1Result Comment: The eGFR is calculated using [...] be mul tiplied by the estimated BMI. 3Result Comment: The eGFR is calculated using the [...] tiplied by the estimated BMI. CARDIAC ENZYMES 1 2 3 Most recent to oldest [Reference Range]: 91 unit/L (04/07/16 6:59 AM) Total CK [12-191 unit/L] <0.02 ng/mL (04/07/16 6:59 AM) Troponin-I [0.00-0.40 ng/mL] URINE AND STOOL 1 2 3 Most recent to oldest [Reference Range]: Slight Cloudy (04/07/16 7:09 AM) UA Turbidity [Clear] Yellow *NA* (04/07/16 7:09 AM) UA Color [Yellow] 6.0 (04/07/16 7:09 AM) UA pH [5.0-8.0] 1.020 (04/07/16 7:09 AM) UA Spec Grav [<=1.030] 100 mg/dL *ABN* (04/07/16 7:09 AM) UA Glucose [Negative mg/dL] Large *ABN* (04/07/16 7:09 AM) UA Blood [Negative] Negative *NA* (04/07/16 7:09 AM) UA Ketones [Negative] 100 mg/dL *ABN* (04/07/16 7:09 AM) UA Protein [Negative mg/dL] 0.2 EU/dL (04/07/16 7:09 AM) UA Urobilinogen [0.1-1.0 EU/dL] Negative *NA* (04/07/16 7:09 AM) UA Bili [Negative] Large *ABN* (04/07/16 7:09 AM) UA Leuk Est [Negative] Positive *ABN* (04/07/16 7:09 AM) UA Nitrite [Negative] >100 /HPF *ABN* (04/07/16 7:09 AM) UA WBC [0-5 /HPF] 21-50 /HPF *ABN* (04/07/16 7:09 AM) UA RBC [0-2 /HPF] Many /HPF *ABN* (04/07/16 7:09 AM) UA Bacteria [None Seen /HPF] Occasional /LPF (04/07/16 7:09 AM) UA Sq Epi [Few /LPF] HEMATOLOGY 1 2 3 Most recent to oldest [Reference Range]: 10.5 K/CMM *HI* (04/09/16 6:22 AM) 15.8 K/CMM *HI* (04/08/16 8:55 AM) 3.6 K/CMM *LOW* (04/07/16 6:39 AM) WBC [3.7-10.4 K/CMM] 3.50 M/CMM *LOW* (04/09/16 6:22 AM) 3.79 M/CMM *LOW* (04/08/16 8:55 AM) 4.00 M/CMM *LOW* (04/07/16 6:39 AM) RBC [4.20-5.40 M/CMM] 11.0 g/dL *LOW* (04/09/16 6:22 AM) 11.5 g/dL *LOW* (04/08/16 8:55 AM) 12.1 g/dL (04/07/16 6:39 AM) Hgb [12.0-16.0 g/dL] 33.0 % *LOW* (04/09/16 6:22 AM) 35.9 % *LOW* (04/08/16 8:55 AM) 37.5 % (04/07/16 6:39 AM) Hct [36.0-48.0 %] 94.2 fL (04/09/16 6:22 AM) 94.9 fL (04/08/16 8:55 AM) 93.8 fL (04/07/16 6:39 AM) MCV [80.0-98.0 fL] 31.6 pg *HI* (04/09/16 6:22 AM) 30.3 pg (04/08/16 8:55 AM) 30.4 pg (04/07/16 6:39 AM) MCH [27.0-31.0 pg] 33.5 g/dL (04/09/16 6:22 AM) 31.9 g/dL *LOW* (04/08/16 8:55 AM) 32.4 g/dL (04/07/16 6:39 AM) MCHC [32.0-36.0 g/dL] 14.2 % (04/09/16 6:22 AM) 13.9 % (04/08/16 8:55 AM) 14.0 % (04/07/16 6:39 AM) RDW [11.5-14.5 %] 199 K/CMM (04/09/16 6:22 AM) 205 K/CMM (04/08/16 8:55 AM) 211 K/CMM (04/07/16 12:52 PM) Platelet [133-450 K/CMM] 9.1 fL (04/09/16 6:22 AM) 9.1 fL (04/08/16 8:55 AM) 8.5 fL (04/07/16 6:39 AM) MPV [7.4-10.4 fL] 82.1 % *HI* (04/09/16 6:22 AM) 79.2 % *HI* (04/08/16 8:55 AM) 87.9 % *HI* (04/07/16 6:39 AM) Segs [45.0-75.0 %] 9.1 % *LOW* (04/09/16 6:22 AM) 11.6 % *LOW* (04/08/16 8:55 AM) 10.7 % *LOW* (04/07/16 6:39 AM) Lymphocytes [20.0-40.0 %] 7.8 % (04/09/16 6:22 AM) 7.6 % (04/08/16 8:55 AM) 0.7 % *LOW* (04/07/16 6:39 AM) Monocytes [2.0-12.0 %] 0.7 % (04/09/16 6:22 AM) 1.1 % (04/08/16 8:55 AM) 0.4 % (04/07/16 6:39 AM) Eosinophils [0.0-4.0 %] 0.3 % (04/09/16 6:22 AM) 0.5 % (04/08/16 8:55 AM) 0.3 % (04/07/16 6:39 AM) Basophils [0.0-1.0 %] 8.6 K/CMM *HI* (04/09/16 6:22 AM) 12.5 K/CMM *HI* (04/08/16 8:55 AM) 3.2 K/CMM (04/07/16 6:39 AM) Segs-Bands # [1.5-8.1 K/CMM] 1.0 K/CMM (04/09/16 6:22 AM) 1.8 K/CMM (04/08/16 8:55 AM) 0.4 K/CMM *LOW* (04/07/16 6:39 AM) Lymphocytes # [1.0-5.5 K/CMM] 0.8 K/CMM (04/09/16 6:22 AM) 1.2 K/CMM *HI* (04/08/16 8:55 AM) Monocytes # [0.0-0.8 K/CMM] 0.1 K/CMM (04/09/16 6:22 AM) 0.2 K/CMM (04/08/16 8:55 AM) Eosinophils # [0.0-0.5 K/CMM] 0.1 K/CMM (04/08/16 8:55 AM) Basophils # [0.0-0.2 K/CMM] 13.6 seconds (04/07/16 6:59 AM) PT [12.0-14.7 seconds] 1.01 (04/07/16 6:59 AM) INR [0.85-1.17] 25.2 seconds (04/07/16 6:59 AM) PTT [22.9-35.8 seconds] Immunizations Given and Recorded Vaccine Date Status Refusal Reason influenza virus vaccine, inactivated1 09/03/12 Given 1Admin Note: PATIENT STATES RECEIVED IN APRIL OF 2012 AT [facility] Procedures Procedure Date Related Diagnosis Body [...] to see Dr. Finch. Assessment and Plan Extracted from: Title: Clinical Document Author: Aviva Cruz MD Date: 04/09/16 [facility] Hospitalist Discharge Summary [facility] Aviva Cruz MD Attending Physician: Aviva Cruz MD Date of Admission:04/07/16 Date of Discharge: 04/09/16 Discharge diagnoses: E. coli UTI (N39.0) E. coli septicemia (A41.51) DM (diabetes mellitus) (E11.9) HLD (hyperlipidemia) (E78.5) CKD (chronic kidney disease) stage 3, GFR 30-59 ml/min (N18.3) COPD (chronic obstructive pulmonary disease) (J44.9) Hepatic steatosis (K76.0) Physical exam VitalsTmp(F)[id number] 04/09 [id number]--- 04/09 08:[id number]--- 04/09 07:07 1693--- 04/09 04:[id number]--- 04/09 00:[id number]--- 24 Hr Tmax: 98.2F (36.78c) at 04/09 08:00Vital Signs are the last 5 in the past 48 hours. General - NAD, AOx4 HEENT:- PERRLA, EOM intact, sclera anicteric, MMM, No lymphadenopathy Cardiovascular - RRR no m/r/g, no JVD, no carotid bruits Lungs - CTAB, no wheezing or rhonchi Skin - No rashes, skin warm and dry, no erythematous areas Abdomen - Soft, NT, ND, +BS in all 4 quadrants Extremeties - No edema, cyanosis or clubbing Musculoskeletal - normal range of motion, no swollen or erythematous joints, no point tenderness. Neurological CN 2-12 grossly intact, no sensory or motor deficits Hospital course: Disposition: home Discharge condition: improved Activity: as tolerated Diet: heart healthy/ADA Followup: Please call your primary care physician for followup w/in 1week. Please also call Dr. Shoemaker for infectious disease followup w/in 1-2weeks. Discharge medication reconciliation: please see discharge reconciliation form Discharge time spent: >45mins [facility] Internal Medicine, Hospitalist Aviva Cruz MD Extracted from: Title: Clinical Document Author: Pau Shoemaker MD Date: 04/09/16 [facility] INFECTIOUS DISEASE CONSULTATION NOTE Robert Jorge M.D. Syed W. Hasan, M.D. REFERRING PHYSICIAN: Dr. Aviva Cruz REASON FOR CONSULTATION: UTI CHIEF COMPLAINT: Abnormal labs HISTORY OF PRESENT ILLNESS: Ms. Geovani Andersen is an 80 year old lady who presented to the ED on Saturday04/06/16 for abnormal labs. She was seen by her doctor for fatty liver and had blood work done. She said that some of her numbers including potassium and kidney number was elevated and that she needed to go to the hospital. She was otherwise feeling fine and going about her normal activity. She did note some chills for the past few days, but denied any dysuria, bladder pain, and new back pain. She was found to have UTI and bacteremia with E.coli during admission, treated with meropenem. She reports history of frequent UTIs in the past and had cystoscopy done before without any noteable findings. REVIEW OF SYSTEMS: CONSTITUTIONAL: Denies fever, + chills EYES: Denies blurry vision or eye pain. ENT: Denies ear pain, nasal drainage, or sore throat. RESPIRATORY: Denies shortness of breath or cough. CARDIOVASCULAR: Denies chest pain or palpitations. GASTROINTESTINAL: Denied nausea, vomiting, diarrhea, + bloating GENITOURINARY: Denies dysuria, frequency, or urgency. MUSCULOSKELETAL: + chronic back pain NEUROLOGIC: Denies any focal weakness or headaches. SKIN: No rashes or lesions. ENDOCRINE: Denies history of polyuria, polydipsia, heat or cold intolerance. HEME/LYMPH: Denies bleeding, + bruising PSYCH: No depression or anxiety PAST MEDICAL/SURGICAL HISTORY: Pneumonia Arthritis Chicken pox PUD - Peptic ulcer disease COPD Diabetes Cataract surgery Hernia repair Arthroscopy of knee with meniscus repair SOCIAL HISTORY: No alcohol, tobacco, or drug use FAMILY HISTORY: Father: Heart disease Mother: Leukemia Grandparent: Heart disease; Liver cancer PHYSICAL EXAMINATION: VitalsTmp(F)[id number] 04/09 11:[id number]--- 04/09 08:[id number]--- 04/09 07:07 1693--- 04/09 04:[id number]--- 04/09 00:[id number]--- 24 Hr Tmax: 98.2F (36.78c) at 04/09 08:00Vital Signs are the last 5 in the past 48 hours. GEN: No acute distress, conversant HEENT: Sclera white; No thrush or erythema; Moist membranes LUNG: Diffuse expiratory wheezing HEART: RRR; +S1/S2; No murmurs, rubs, or gallops ABD: +BS; Soft; distended; Non-tender EXT: mild BLE edema NEURO: Alert and oriented; PERRL; No gross focal deficits SKIN: ecchymosis of BUE PSYCH: Appropriate affect Lines, Tubes, and Drains: 04/07/2016 06:35 Peripheral Lines: Antecubital Right 20 gauge Over the needle catheter MEDICATIONS: Scheduled Meds (9): 04/07/16 aspirin (aspirin 81 mg tablet, chewable) 81 mg PO Daily 04/07/16 atorvastatin 10 mg PO Bedtime 04/09/16 azelastine nasal (azelastine nasal 0.1% (137 mcg/inh) spray) 1 inhalation NASAL Bedtime 04/08/16 docusate-senna (docusate-senna 50 mg-8.6 mg oral tablet) 1 tab PO BID 04/07/16 heparin 5,000 unit SUB-Q Q8H 04/07/16 insulin detemir 35 unit SUB-Q Bedtime 04/07/16 meropenem + sodium chloride 0.9% INJ 100 mL 500 mg IVPB ABXQ8H 33.33 ml/hr 04/07/16 montelukast (Singulair) 4 mg PO QPM 04/07/16 pantoprazole 40 mg PO Before Dinner ALLERGIES: Allergies (1) ActiveReaction NKDANone documented LABORATORY (Reviewed): Labs (Last four charted values) WBC H 10.5(APR 09)H 15.8(APR 08)L 3.6(APR 07) Hgb L 11.0(APR 09)L 11.5(APR 08)12.1(APR 07) Hct L 33.0(APR 09)L 35.9(APR 08)37.5(APR 07) Plt 199(APR 09)205(MAR 18)211(APR 07)195(APR 07) Na 143(APR 09)140(APR 08)139(APR 07) K 4.4(APR 09)4.6(SEP 18)4.3(APR 07) CO2 L 17(APR 09)L 19(SEP 18)24(APR 07) Cl H 115(MAR 19)H 111(MAR 18)H 110(APR 07) Cr H 1.59(APR 09)H 2.16(MAR 18)H 1.88(MAR 17)H 1.79(APR 07) BUN H 42(APR 09)H 54(MAR 18)H 45(APR 07) Glucose Random H 135(APR 09)H 195(MAR 18)H 117(APR 07) Mg 2.0(APR 09)2.0(APR 08) Phos 3.1(APR 09)3.5(APR 08) Ca L 8.2(APR 09)L 8.2(APR 08)9.0(APR 07) PT 13.6(APR 07) INR 1.01(APR 07) PTT 25.2(APR 07) Troponin <0.02(APR 07) Total CK 91(APR 07) Alk Phos: 142 High 04/07/16 07:32:23 A/G Ratio: 0.9 04/07/16 07:32:23 ALT: 48 04/07/16 07:32:23 Albumin Lvl: 3.3 Low 04/07/16 07:32:23 Bili Total: 1.0 04/07/16 07:32:23 Total Protein: 6.9 04/07/16 07:32:23 Globulin: 3.6 04/07/16 07:32:23 AST: 56 High 04/07/16 07:32:23 MICROBIOLOGY (Reviewed): Urine: E.coli Blood: E.coli IMAGING (Reviewed): CXR: No radiographic evidence of acute cardiopulmonary disease. ASSESSMENT & PLAN: 80 yo WF presents with: * E.coli Complicated UTI * E.coli Bacteremia 2/2 UTI * Severe Sepsis 2/2 Above * ROMEL on CKD 3 * COPD - Patient presents with sensitive E.coli UTI and bacteremia initially associated with tachycardia and leukocytosis as well as low grade fever which has all improved. Her repeat blood cultures are so far clear. She has received about 2 days of therapy with meropenem. Based on her renal function and E.coli sensitivities, recommend ciprofloxacin 500mg PO BID to complete 14 day course of therapy. Script in chart. Patient instructed to follow-up in ID clinic upon DC. Extracted from: Title: Clinical Document Author: Aviva Cruz MD Date: 04/08/16 [facility] Daily Progress Note [facility] Aviva Cruz MD CC: f/u sepsis 2/2 GNR cystitis w/ bacteremia SUBJECTIVE: Patient seen and examined, events reviewed. Feels much better today. Ambulated back & forth to restroom w/o difficulty. Denies CP, SOB, palpitations, N/V/Diarrhea, Dysuria. OBJECTIVE: VitalTmp(F)[id number] 04/08 08:22 2092 21% 04/08 08:[id number]--- 04/08 03:[id number]--- 04/07 [id number]--- 04/07 20:26 1892 21% 24 Hr Tmax: 98.4F (36.89c) at 04/07 19:14Vital Signs are the last 5 in the past 48 hours. I&ORecordInOutBal 1724hr Tot 1500 525 975 1624hr Tot 800 0 800 General - NAD, AOx4 HEENT:- PERRLA, EOM intact, sclera anicteric, MMM, No lymphadenopathy Cardiovascular - RRR no m/r/g, no JVD, no carotid bruits Lungs - CTAB, no wheezing or rhonchi Skin - No rashes, skin warm and dry, no erythematous areas Abdomen - Soft, NT, ND, +BS in all 4 quadrants Extremeties - No edema, cyanosis or clubbing Musculoskeletal - normal range of motion, no swollen or erythematous joints, no point tenderness. Neurological CN 2-12 grossly intact, no sensory or motor deficits Labs (Last four charted values) WBC L 3.6(APR 07) Hgb 12.1(APR 07) Hct 37.5(APR 07) Plt 211(APR 07)195(APR 07) Na 139(APR 07) K 4.3(APR 07) CO2 24(APR 07) Cl H 110(APR 07) Cr H 1.88(APR 07)H 1.79(APR 07) BUN H 45(APR 07) Glucose Random H 117(APR 07) Ca 9.0(APR 07) PT 13.6(APR 07) INR 1.01(APR 07) PTT 25.2(APR 07) Troponin <0.02(APR 07) Total CK 91(APR 07) Medications (20) Active Scheduled: (7) aspirin 81 mg CHEW TAB 81 mg 1 tab, PO, Daily atorvastatin 10 mg TAB 10 mg 1 tab, PO, Bedtime heparin 5000 unit/1 ml INJ VL 5,000 unit 1 mL, SUB-Q, Q8H insulin DETEMIR 100unit/ml 3ml Pen 35 unit 0.35 mL, SUB-Q, Bedtime meropenem 500mg vial + sodium chloride 0.9% INJ 100 mL 500 mg, IVPB, ABXQ8H montelukast 4 mg CHEW TAB 4 mg 1 tab, PO, QPM pantoprazole 40 mg ECT 40 mg 1 tab, PO, Before Dinner Continuous: (1) sodium chloride 0.45% 1000 ml INJ 1,000 mL 1,000 mL, IV, 125 ml/hr PRN: (12) acetaminophen 325 mg TABLET 325 mg 1 tab, PO, Q4H albuterol 90 microgram/inh 8gm AER HFA 2 puff, INHALER, Q4H Dextrose 50% 50 ml INJ syringe 12.5 gm 25 mL, IVP, PRN Dextrose 50% 50 ml INJ syringe 25 gm 50 mL, IVP, PRN docusate sodium 100 mg CAP 100 mg 1 cap, PO, BID glucagon recombinant 1 mg PDR 1 mg, IM, PRN insulin aspart 100 unit/ml 3ml Pen 2 unit 0.02 mL, SUB-Q, TID-Before Meals insulin aspart 100 unit/ml 3ml Pen 4 unit 0.04 mL, SUB-Q, TID-Before Meals insulin aspart 100 unit/ml 3ml Pen 6 unit 0.06 mL, SUB-Q, TID-Before Meals insulin aspart 100 unit/ml 3ml Pen 8 unit 0.08 mL, SUB-Q, TID-Before Meals insulin aspart 100 unit/ml 3ml Pen 10 unit 0.1 mL, SUB-Q, TID-Before Meals ondansetron 4mg/2mL INJ SYRINGE 4 mg 2 mL, IVP, Q6H ASSESSMENT & PLAN: 80y/o W w/ DM II, HTN, HLD, CKD III, COPD, hepatic steatosis, & hx recurrent UTIs on ppx bactrim, admitted 04/07/16 w/ 1-day hx chills, nausea, LE cramps. Found w/ sepsis (leukopenia, fever, tachy on admit) 2/2 cystitis & Bacteremia (Bcx growing GNRs). Currently afebrile & HDS, but BP borderline. Plan: -Continue broad-spect IV abx -Repeat Bcx ordered today -Bolus 2L NS today & continue on maintenance fluids -Continue to hold antihypertensives in setting of GN sepsis -Continue basal insulin, SSI & accuchecks -Monitor renal fx daily -No evidece of COPD exacerbation at this time: continue home med regimen -Lyla med for other chronic medical problems -Diet: ADA/heart healthy -DVT ppx: heparin -GI ppx: not indicated -Dispo: pending continued HDS & speciation of GNR
--- OUTSIDE RECORDS SUMMARY | 2018-05-25 13:49 | XMS REPORT | Summary of Care ---
Author Author [facility] Organization [facility] Address Unknown Phone Unavailable Encounter [facility](LILIA) [id number] Date(s): 02/27/15 - 03/01/[address] [facility] [address] [place] [address]- Discharge Disposition: Home Attending Physician: Pheobe Herzog MD Admitting Physician: Phoebe Herzog MD Vital Signs 1 2 3 Most recent to oldest [Reference Range]: 157.48 cm (02/27/15 8:58 AM) 157.48 cm (02/27/15 6:31 AM) 157.48 cm (02/27/15 1:31 AM) Height 1 2 3 Most recent to oldest [Reference Range]: 98.1 DegF (03/01/15 1:17 PM) 98.1 DegF (03/01/15 7:45 AM) 97.7 DegF (03/01/15 4:00 AM) Temperature Oral [96.4-99.1 DegF] 1 2 3 Most recent to oldest [Reference Range]: 151/51 mmHg *HI* (03/01/15 1:17 PM) 133/68 mmHg (03/01/15 7:45 AM) 150/69 mmHg *HI* (03/01/15 4:00 AM) Blood Pressure [90-140/60-90 mmHg] 1 2 3 Most recent to oldest [Reference Range]: 18 BRMIN (03/01/15 1:17 PM) 18 BRMIN (03/01/15 7:45 AM) 16 BRMIN (03/01/15 6:51 AM) Respiratory Rate [14-20 BRMIN] 1 2 3 Most recent to oldest [Reference Range]: 108 bpm *HI* (03/01/15 1:17 PM) 66 bpm (03/01/15 7:45 AM) 75 bpm (03/01/15 4:00 AM) Peripheral Pulse Rate [60-100 bpm] 1 2 3 Most recent to oldest [Reference Range]: 94.091 kg (02/27/15 8:58 AM) 94.091 kg (02/27/15 6:31 AM) 94.091 kg (02/27/15 1:31 AM) Weight 1 2 3 Most recent to oldest [Reference Range]: 37.94 m2 (02/27/15 8:58 AM) 37.94 m2 (02/27/15 6:31 AM) 37.94 m2 (02/27/15 1:31 AM) Body Mass Index Problem List Condition Effective Dates Status Health Status Informant Arthritis(Confirmed) Resolved Chicken Resolved pox(Confirmed) Diabetes Active mellitus(Confirmed) Disorder associated 08/03/10 Resolved with type 2 diabetes mellitus1 Hyperlipidemia2 08/03/10 Active Hypertension(Confirm Active ed) Obesity(Confirmed) Active Obesity3 08/03/10 Active Osteoporosis4 08/03/10 Active Pneumonia(Confirmed) Resolved PUD - Peptic ulcer Resolved disease(Confirmed) Steatosis of liver5 Active Upper respiratory 01/19/13 Resolved infection6 Urinary tract [...] Reaction Severity Status NKDA Active Medications acetaminophen 650 mg, 2 tab, Route: PO, Drug form: TAB, Q4H, Dosing Weight 94.091, kg, PRN Rolando n 1-3/Temp > 100.4 F, Start date: 02/27/15 6:27:00, Duration: 30 day, Stop date: 03/29/15 6:26:00 Notes: Do not exceed 4 gm/day. (Same as: Tylenol) Start Date: 02/27/15 Stop Date: 03/01/15 Status: Discontinued albuterol 0.083% inhalation solution 2.49 mg, 3 mL, Route: NEB, Drug form: SOLN, RQ4H, Dosing Weight 94.091, kg, Star t date: 02/27/15 7:00:00, Duration: 30 day, Stop date: 03/29/15 3:00:00, Pediatr ic Dosing Special Instructions: Pediatric Dosing Notes: SEE RT DOCUMENTATION (Same as: Proventil) Start Date: 02/27/15 Stop Date: 03/01/15 Status: Discontinued albuterol-ipratropium 2.5-0.5 mg inhalation solution 3 mL, Route: NEB, Drug Form: SOLN, Dosing Weight 94.091, kg, ONCE, STAT, Start d ate: 02/27/15 1:50:00, Stop date: 02/27/15 1:50:00 Start Date: 02/27/15 Stop Date: 02/27/15 Status: Completed amLODIPine 10 mg, 2 tab, Route: PO, Drug form: TAB, Daily, Dosing Weight 94.091, kg, Start date: 02/28/15 9:00:00, Duration: 30 day, Stop date: 03/29/15 9:00:00 Notes: (Same as: Norvasc) Start Date: 02/28/15 Stop Date: 03/01/15 Status: Discontinued aspirin 81 mg tablet, chewable 81 mg, 1 tab, Route: PO, Drug form: CHEWTAB, Daily, Dosing Weight 94.091, kg, St art date: 02/28/15 9:00:00, Duration: 30 day, Stop date: 03/29/15 9:00:00 Notes: Take with food. Start Date: 02/28/15 Stop Date: 03/01/15 Status: Discontinued atorvastatin 10 mg, 1 tab, Route: PO, Drug form: TAB, QAM, Dosing Weight 94.091, kg, Start da te: 02/28/15 9:00:00, Duration: 30 day, Stop date: 03/29/15 9:00:00 Notes: (Same As: Lipitor) Start Date: 02/28/15 Stop Date: 03/01/15 Status: Discontinued atropine 0.5 mg, 5 mL, Route: IV, Drug form: INJ, PRN, Dosing Weight 94.091, kg, PRN Naveen ycardia, Start date: 02/27/15 8:56:00, Duration: 30 day, Stop date: 03/29/15 8:5 5:00 Start Date: 02/27/15 Stop Date: 03/01/15 Status: Discontinued Benicar 40 mg, 2 tab, Route: PO, Drug form: TAB, ONCE, Dosing Weight 94.091, kg, Priorit y: NOW, Start date: 02/27/15 5:33:00, Stop date: 02/27/15 5:33:00 Start Date: 02/27/15 Stop Date: 02/27/15 Status: Completed Benicar 40 mg, 2 tab, Route: PO, Drug form: TAB, Daily, Dosing Weight 94.091, kg, Start date: 02/28/15 9:00:00, Duration: 30 day, Stop date: 03/29/15 9:00:00 Start Date: 02/28/15 Stop Date: 03/01/15 Status: Discontinued Dextrose 50% Syringe 25 gm, 50 mL, Route: IVP, Drug Form: INJ, Dosing Weight 94.091, kg, PRN, PRN Blo od Glucose Results, Start date: 02/27/15 12:50:00, Duration: 30 day, Stop date: 03/29/15 12:49:00 Start Date: 02/27/15 Stop Date: 03/01/15 Status: Discontinued Dextrose 50% Syringe 12.5 gm, 25 mL, Route: IVP, Drug Form: INJ, Dosing Weight 94.091, kg, PRN, PRN B lood Glucose Results, Start date: 02/27/15 12:50:00, Duration: 30 day, Stop date : 03/29/15 12:49:00 Start Date: 02/27/15 Stop Date: 03/01/15 Status: Discontinued docusate 100 mg, 1 cap, Route: PO, Drug form: CAP, BID, Dosing Weight 94.091, kg, PRN Con stipation, Start date: 02/27/15 6:27:00, Duration: 30 day, Stop date: 03/29/15 6 :26:00 Notes: (Same as: Colace) (Do Not Crush) Start Date: 02/27/15 Stop Date: 03/01/15 Status: Discontinued DuoNeb inhalation solution 3 ml, Route: INHALATION, Drug Form: SOLN, Dosing Weight 94.091, kg, PRN, PRN Res piratory Protocol, Start date: 02/27/15 6:27:00, Duration: 30 day, Stop date: 6:26:00 Notes: (Same as: Duoneb) Start Date: 02/27/15 Stop Date: 03/01/15 Status: Discontinued glucagon 1 mg, Route: IM, Drug form: PDR/INJ, PRN, Dosing Weight 94.091, kg, PRN Blood Gl ucose Results, Start date: 02/27/15 12:50:00, Duration: 30 day, Stop date: 03/29 12:49:00 Start Date: 02/27/15 Stop Date: 03/01/15 Status: Discontinued insulin aspart 12 unit, 0.12 mL, Route: SUB-Q, Drug form: SOLN, ONCE, Dosing Weight 94.091, kg, Start date: 02/27/15 22:01:00, Stop date: 02/27/15 22:01:00 Notes: Roll in palms of hands gently; Do not shake vigorously. (Same as: NovoKRISTA G)"single patient use only" Stable for 28 days at room temperature.Expires in _ ____ days from Date Start Date: 02/27/15 Stop Date: 02/27/15 Status: Completed insulin aspart 4 unit, 0.04 mL, Route: SUB-Q, Drug form: SOLN, Bedtime, Dosing Weight 94.091, k g, PRN Blood Glucose Results, Start date: 02/27/15 12:50:00, Duration: 30 day, S top date: 03/29/15 12:49:00 Notes: Roll in palms of hands gently; Do not shake vigorously. (Same as: NovoLO G)"single patient use only" Stable for 28 days at room temperature.Expires in _ ____ days from Date Start Date: 02/27/15 Stop Date: 03/01/15 Status: Discontinued insulin aspart 3 unit, 0.03 mL, Route: SUB-Q, Drug form: SOLN, Bedtime, Dosing Weight 94.091, k g, PRN Blood Glucose Results, Start date: 02/27/15 12:50:00, Duration: 30 day, S top date: 03/29/15 12:49:00 Notes: Roll in palms of hands gently; Do not shake vigorously. (Same as: NovoLO G)"single patient use only" Stable for 28 days at room temperature.Expires in _ ____ days from Date Start Date: 02/27/15 Stop Date: 03/01/15 Status: Discontinued insulin aspart 2 unit, 0.02 mL, Route: SUB-Q, Drug form: SOLN, Bedtime, Dosing Weight 94.091, k g, PRN Blood Glucose Results, Start date: 02/27/15 12:50:00, Duration: 30 day, S top date: 03/29/15 12:49:00 Notes: Roll in palms of hands gently; Do not shake vigorously. (Same as: NovoLO G)"single patient use only" Stable for 28 days at room temperature.Expires in _ ____ days from Date Start Date: 02/27/15 Stop Date: 03/01/15 Status: Discontinued insulin aspart 1 unit, 0.01 mL, Route: SUB-Q, Drug form: SOLN, Bedtime, Dosing Weight 94.091, k g, PRN Blood Glucose Results, Start date: 02/27/15 12:50:00, Duration: 30 day, S top date: 03/29/15 12:49:00 Notes: Roll in palms of hands gently; Do not shake vigorously. (Same as: NovoLO G)"single patient use only" Stable for 28 days at room temperature.Expires in _ ____ days from Date Start Date: 02/27/15 Stop Date: 03/01/15 Status: Discontinued insulin aspart 12 unit, 0.12 mL, Route: SUB-Q, Drug form: SOLN, TID-Before Meals, Dosing Weight 94.091, kg, PRN Blood Glucose Results, Start date: 02/27/15 12:50:00, Duration: 30 day, Stop date: 03/29/15 12:49:00 Notes: Roll in palms of hands gently; Do not shake vigorously. (Same as: NovoLO G)"single patient use only" Stable for 28 days at room temperature.Expires in _ ____ days from Date Start Date: 02/27/15 Stop Date: 03/01/15 Status: Discontinued insulin aspart 9 unit, 0.09 mL, Route: SUB-Q, Drug form: SOLN, TID-Before Meals, Dosing Weight 94.091, kg, PRN Blood Glucose Results, Start date: 02/27/15 12:50:00, Duration: 30 day, Stop date: 03/29/15 12:49:00 Notes: Roll in palms of hands gently; Do not shake vigorously. (Same as: NovoLO G)"single patient use only" Stable for 28 days at room temperature.Expires in _ ____ days from Date Start Date: 02/27/15 Stop Date: 03/01/15 Status: Discontinued insulin aspart 15 unit, 0.15 mL, Route: SUB-Q, Drug form: SOLN, TID-Before Meals, Dosing Weight 94.091, kg, PRN Blood Glucose Results, Start date: 02/27/15 12:50:00, Duration: 30 day, Stop date: 03/29/15 12:49:00 Notes: Roll in palms of hands gently; Do not shake vigorously. (Same as: NovoLO G)"single patient use only" Stable for 28 days at room temperature.Expires in _ ____ days from Date Start Date: 02/27/15 Stop Date: 03/01/15 Status: Discontinued insulin aspart 6 unit, 0.06 mL, Route: SUB-Q, Drug form: SOLN, TID-Before Meals, Dosing Weight 94.091, kg, PRN Blood Glucose Results, Start date: 02/27/15 12:50:00, Duration: 30 day, Stop date: 03/29/15 12:49:00 Notes: Roll in palms of hands gently; Do not shake vigorously. (Same as: NovoLO G)"single patient use only" Stable for 28 days at room temperature.Expires in _ ____ days from Date Start Date: 02/27/15 Stop Date: 03/01/15 Status: Discontinued insulin aspart 3 unit, 0.03 mL, Route: SUB-Q, Drug form: SOLN, TID-Before Meals, Dosing Weight 94.091, kg, PRN Blood Glucose Results, Start date: 02/27/15 12:50:00, Duration: 30 day, Stop date: 03/29/15 12:49:00 Notes: Roll in palms of hands gently; Do not shake vigorously. (Same as: NovoKRISTA G)"single patient use only" Stable for 28 days at room temperature.Expires in _ ____ days from Date Start Date: 02/27/15 Stop Date: 03/01/15 Status: Discontinued Levemir FlexPen 23 unit, 0.23 mL, Route: SUB-Q, Drug form: INJ, Bedtime, Dosing Weight 94.091, k g, Start date: 02/27/15 21:00:00, Duration: 30 day, Stop date: 03/28/15 21:00:00 Notes: Same as Bari not hold insulin without contacting prescriber "single patient use only" Start Date: 02/27/15 Stop Date: 03/01/15 Status: Discontinued Medrol Dosepak 4 mg oral tablet See Instructions, PO, Take by mouth as directed on label., X 6 day, # 1 Pack, 0 Refill(s) Special Instructions: Take by mouth as directed on label. Start Date: 03/01/15 Stop Date: 03/07/15 Status: Ordered methylPREDNISolone SODium SUCCinate 125 mg, Route: IVP, ONCE, Dosing Weight 94.091, kg, Priority: STAT, Start date: 02/27/15 3:34:00, Stop date: 02/27/15 3:34:00 Start Date: 02/27/15 Stop Date: 02/27/15 Status: Completed morphine Sulfate 2 mg, 1 mL, Route: IVP, Drug form: INJ, Q4H, Dosing Weight 94.091, kg, PRN Pain Score 7-10, Start date: 02/27/15 6:27:00, Duration: 30 day, Stop date: 03/29/15 6:26:00 Notes: (Same as:MORPhine Sulfate) Start Date: 02/27/15 Stop Date: 03/01/15 Status: Discontinued nitroglycerin 0.4 mg sublingual tablet 0.4 mg, 1 tab, Route: SL, Drug form: TAB, Q5Min, Dosing Weight 94.091, kg, PRN C hest Pain, Start date: 02/27/15 8:56:00, Duration: 30 day, Stop date: 03/29/15 8 :55:00 Notes: (Same as:Nitroquick, Nitrostat)"Do Not Crush" Sublingual tablet Start Date: 02/27/15 Stop Date: 03/01/15 Status: Discontinued ondansetron 4 mg, 2 mL, Route: IVP, Drug form: INJ, Q6H, Dosing Weight 94.091, kg, PRN Nause a & Vomiting, Start date: 02/27/15 6:27:00, Duration: 30 day, Stop date: 03/29/15 6:26:00 Notes: (Same as: Tracy) MEDICATION WASTE Product Size: 4 mgProduct Was bernadette: ___ mg Start Date: 02/27/15 Stop Date: 03/01/15 Status: Discontinued pantoprazole 40 mg, PO, Daily, # 30 tab, 0 Refill(s) Start Date: 02/27/15 Stop Date: 03/29/15 Status: Ordered Protonix 40 mg, 1 pkt, Route: PEG, Drug form: GRAN/REC, Before Dinner, Dosing Weight 94.0 91, kg, Start date: 02/27/15 16:30:00, Duration: 30 day, Stop date: 03/28/15 16: 30:00 Notes: Same as: Protonix Mix in 5 mL apple juice or applesauce for oral & 10mL apple juice for NG tube Start Date: 02/27/15 Stop Date: 03/01/15 Status: Discontinued Saline Flush 0.9% 10 mL, Route: IVP, Drug Form: INJ, Dosing Weight 94.091, kg, PRN, PRN Line Flush , Start date: 02/27/15 1:50:00, Duration: 30 day, Stop date: 03/29/15 1:49:00 Notes: (Same as: BD Posiflush) Start Date: 02/27/15 Stop Date: 02/27/15 Status: Discontinued Solu-MEDROL 40 mg, 1 mL, Route: IVP, Drug form: INJ, N27Txps, Dosing Weight 94.091, kg, Star t date: 02/27/15 15:00:00, Duration: 30 day, Stop date: 03/29/15 3:00:00 Notes: (Same as:Solu-MEDROL, A-Methapred) Start Date: 02/27/15 Stop Date: 03/01/15 Status: Discontinued ursodiol 300 mg, PO, TID, 0 Refill(s) Start Date: 02/27/15 Status: Ordered ursodiol 300 mg, 1 cap, Route: PO, Drug form: CAP, TID, Dosing Weight 94.091, kg, Start d ate: 02/27/15 13:00:00, Duration: 30 day, Stop date: 03/29/15 9:00:00 Notes: (Same As: Actigall) Start Date: 02/27/15 Stop Date: 03/01/15 Status: Discontinued Ventolin HFA 90 mcg/inh inhalation aerosol with adapter 2 puff, INHALER, Q4H, PRN wheezing, coughing, or shortness of breath, # 8 gm, 1 Refill(s) Start Date: 03/01/15 Status: Ordered Results ELECTROLYTES 1 2 3 Most recent to oldest [Reference Range]: 141 mEq/L (02/28/15 5:20 AM) 143 mEq/L (02/27/15 2:01 AM) Sodium Lvl [135-145 mEq/L] 4.3 mEq/L (02/28/15 5:20 AM) 4.1 mEq/L (02/27/15 2:01 AM) Potassium Lvl [3.5-5.1 mEq/L] 109 mEq/L (02/28/15:20 AM) 111 mEq/L *HI* (02/27/15 2:01 AM) Chloride Lvl [95-109 mEq/L] 23 mEq/L *LOW* (02/28/15:20 AM) 22 mEq/L *LOW* (02/27/15 2:01 AM) CO2 [24-32 mEq/L] 13.3 mEq/L (02/28/15: AM) 14.1 mEq/L (02/27/15:01 AM) AGAP [10.0-20.0 mEq/L] CHEM PANEL 1 2 3 Most recent to oldest [Reference Range]: 1.2 mg/dL (02/28/15: AM) 1.3 mg/dL (02/27/15: AM) Creatinine Lvl [0.5-1.4 mg/dL] 42 mL/min/1.73m2 1 *NA* (02/28/15: AM) 39 mL/min/1.73m2 2 *NA* (02/27/15 2: AM) eGFR 32 mg/dL *HI* (02/28/15:20 AM) 34 mg/dL *HI* (02/27/15 2: AM) BUN [7-22 mg/dL] 26 *HI* (02/27/15 2:01 AM) B/C Ratio [6-25] 201 mg/dL *HI* (02/28/15:20 AM) 178 mg/dL *HI* (02/27/15 2: AM) Glucose Lvl [70-99 mg/dL] 7.2 g/dL (02/27/15 2: AM) Total Protein [6.4-8.4 g/dL] 3.6 g/dL (02/27/15 2:01 AM) Albumin Lvl [3.5-5.0 g/dL] 3.6 g/dL (02/27/15 2:01 AM) Globulin [2.0-4.0 g/dL] 1.0 (02/27/15 2:01 AM) A/G Ratio [0.7-1.6] 9.4 mg/dL (8/10/15 5:20 AM) 9.0 mg/dL (02/27/15 2:01 AM) Calcium Lvl [8.5-10.5 mg/dL] 38 unit/L (02/27/15 2:01 AM) ALT [0-65 unit/L] 37 unit/L (02/27/15 2:01 AM) AST [0-37 unit/L] 190 unit/L *HI* (02/27/15 2:01 AM) Alk Phos [39-136 unit/L] 0.3 mg/dL (02/27/15 2:01 AM) Bili Total [0.2-1.3 mg/dL] 1Result Comment: The eGFR is calculated using [...] 3 Most recent to oldest [Reference Range]: 135 unit/L (02/27/15 7:00 PM) 143 unit/L (02/27/15 12:43 PM) 96 unit/L (02/27/15 7:23 AM) Total CK [12-191 unit/L] 1.7 ng/mL (02/27/15 7:00 PM) 1.6 ng/mL (02/27/15 12:43 PM) 1.5 ng/mL (02/27/15 7:23 AM) CK MB [0.5-3.6 ng/mL] 1.3 (02/27/15 7:00 PM) 1.1 (02/27/15 12:43 PM) 1.6 (02/27/15 7:23 AM) CK MB Index [0.0-2.5] <0.02 ng/mL (02/27/15 7:00 PM) <0.02 ng/mL (02/27/15 12:43 PM) <0.02 ng/mL (02/27/15 7:23 AM) Troponin-I [0.00-0.40 ng/mL] 46 pg/mL (02/27/15 2:01 AM) BNP [<=100 pg/mL] HEMATOLOGY 1 2 3 Most recent to oldest [Reference Range]: 13.6 K/CMM *HI* (02/28/15 5:20 AM) 9.6 K/CMM (02/27/15 2:01 AM) WBC [3.7-10.4 K/CMM] 4.19 M/CMM *LOW* (02/28/15 5:20 AM) 4.68 M/CMM (02/27/15 2:01 AM) RBC [4.20-5.40 M/CMM] 13.0 g/dL (02/28/15 5:20 AM) 14.7 g/dL (02/27/15 2:01 AM) Hgb [12.0-16.0 g/dL] 39.5 % (02/28/15 5:20 AM) 43.9 % (02/27/15 2:01 AM) Hct [36.0-48.0 %] 94.2 fL (02/28/15 5:20 AM) 93.8 fL (02/27/15 2:01 AM) MCV [80.0-98.0 fL] 31.0 pg (02/28/15:20 AM) 31.4 pg *HI* (02/27/15 2:01 AM) MCH [27.0-31.0 pg] 33.0 g/dL (02/28/15 5:20 AM) 33.5 g/dL (02/27/15 2:01 AM) MCHC [32.0-36.0 g/dL] 14.3 % (02/28/15:20 AM) 14.2 % (02/27/15 2:01 AM) RDW [11.5-14.5 %] 246 K/CMM (02/28/15:20 AM) 289 K/CMM (02/27/15 2:01 AM) Platelet [133-450 K/CMM] 8.3 fL (02/28/15:20 AM) 8.2 fL (02/27/15 2:01 AM) MPV [7.4-10.4 fL] 86.7 % *HI* (02/28/15:20 AM) 65.3 % (02/27/15 2:01 AM) Segs [45.0-75.0 %] 8.5 % *LOW* (02/28/15:20 AM) 23.8 % (02/27/15 2:01 AM) Lymphocytes [20.0-40.0 %] 4.7 % (02/28/15 5:20 AM) 7.9 % (02/27/15 2:01 AM) Monocytes [2.0-12.0 %] 2.1 % (02/27/15 2:01 AM) Eosinophils [0.0-4.0 %] 0.1 % (02/28/15 5:20 AM) 0.9 % (02/27/15 2:01 AM) Basophils [0.0-1.0 %] 11.8 K/CMM *HI* (02/28/15 5:20 AM) 6.3 K/CMM (02/27/15 2:01 AM) Segs-Bands # [1.5-8.1 K/CMM] 1.2 K/CMM (02/28/15 5:20 AM) 2.3 K/CMM (02/27/15 2:01 AM) Lymphocytes # [1.0-5.5 K/CMM] 0.6 K/CMM (02/28/15 5:20 AM) 0.8 K/CMM (02/27/15 2:01 AM) Monocytes # [0.0-0.8 K/CMM] 0.2 K/CMM (02/27/15 2:01 AM) Eosinophils # [0.0-0.5 K/CMM] 0.1 K/CMM (02/27/15 2:01 AM) Basophils # [0.0-0.2 K/CMM] 12.5 seconds (02/27/15 2:01 AM) PT [12.0-14.7 seconds] 0.94 (02/27/15 2:01 AM) INR [0.85-1.17] 38.0 seconds *HI* (02/27/15 2:01 AM) PTT [22.9-35.8 seconds] Immunizations Vaccine Date Refusal Reason influenza virus vaccine, inactivated1 09/03/12 1Admin Note: PATIENT STATES RECEIVED IN APRIL OF 2012 AT [facility] Procedures Procedure Date Related Diagnosis Body Site Arthroscopy of knee with meniscus repair Cataract surgery Hernia repair Social History Social History Type Response Substance Abuse Use: None. Exercise Exercise duration: 0. Employment/School Status: Employed. 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 Other: Maritial Status: Pets: none Children: 4 girls Surrogate Decision Maker: herself.1 Alcohol Never Smoking Status Never smoker; Exposure to Tobacco Smoke None; Cigarette Smoking Last 365 Days No; Reg Smoking Cessation Counseling No 1Last Appt: 2012, has appt February to see Dr. Finch. Assessment and Plan Extracted from: Title: Clinical Document Author: Phoebe Herzog MD Date: 02/27/15 I[facility] Daily Progress Note [facility] Phoebe Herzog MD SUBJECTIVE: pt seen and examined, events noted c/o shortness of breath onset tonight. Pt states she was sleeping when symptoms started and she started coughing. Pt reports she was on Azithromycin with no relief and was recently started on Azithromycin again. Pt denies nausea, vomiting, or chest pain. OBJECTIVE: Vitals and Temp: VitalsTmp(F)[id number] 02/27 08:[id number]--- 02/27 06:58 1697 2.0L/m 02/27 06:57 97 2.0L/m 02/27 06:[id number]--- 02/27 05:[id number] 3.0L/m 24 Hr Tmax: 98.5F (36.94c) at 02/27 05:55Vital Signs are the last 5 in the past 48 hours. Labs (Last four charted values) WBC 9.6(FEB 27) Hgb 14.7(FEB 27) Hct 43.9(FEB 27) Plt 289(FEB 27) Na 143(FEB 27) K 4.1(FEB 27) CO2 L 22(FEB 27) Cl H 111(FEB 27) Cr 1.3(FEB 27) BUN H 34(FEB 27) Glucose Random H 178(FEB 27) Ca 9.0(FEB 27) PT 12.5(FEB 27) INR 0.94(FEB 27) PTT H 38.0(FEB 27) Troponin <0.02(FEB 27)<0.02(FEB 27) CK MB 1.5(FEB 27)0.7(FEB 27) Total CK 96(FEB 27)81(FEB 27) ASSESSMENT & EXAM: General: in no apparent distress at this time. Eyes: Pupils equal, round and reactive to light. Eyes normal inspection. ENT: Ears normal. Nose normal. Pharynx normal. Neck: Normal inspection. No jugular venous distention. Neck supple. CVS: Heart sounds normal. Pulses normal. no murmurs Respiratory: No respiratory distress. Breath sounds normal. no wheezing Abdomen: Soft and nontender. no organomegaly Back: Normal inspection. Skin: Skin warm and dry. Normal skin color. Extremities: Extremities exhibit normal ROM. No lower extremity edema. Neuro: Oriented X 3. No motor deficit. DIAGNOSES & PROBLEMS: Bronchitis. Acute exacerbation of COPD. dehydration. DM II uncontrolled PLAN & TREATMENT: cont IV Abx cont IV steroids monitor electrolytes cont nebs add SS insulin and watch BG monitor cultures IS DVT prophylaxis MEDICATIONS Scheduled Meds (2):albuterol (albuterol 0.083% inhalation solution), methylPREDNISolone (Solu-MEDROL) Unscheduled Meds: None PRN Meds (7):acetaminophen, albuterol-ipratropium (DuoNeb inhalation solution), atropine, docusate, morphine Sulfate, nitroglycerin (nitroglycerin 0.4 mg sublingual tablet), ondansetron One Time Meds (3):(Completed) albuterol-ipratropium (albuterol-ipratropium 2.5- 0.5 mg inhalation solution), (Completed) methylPREDNISolone (methylPREDNISolone SODium SUCCinate), (Completed) olmesartan (Benicar) Continuous Infusions: None
--- OUTSIDE RECORDS SUMMARY | 2018-05-25 13:49 | XMS REPORT | Summary of Care ---
Author Author [facility] Outpatient Imaging [facility] Outpatient Imaging [facility] Address Unknown Phone Unavailable Encounter NAVEED Garland(LILIA) [id number] Date(s): 01/09/17 - 01/09/17 [facility] [address] [facility], [address] [place] [phone] Discharge Disposition: Home or Self Care Attending Physician: Dewey Molina MD Vital Signs No data available for [...]
--- OUTSIDE RECORDS SUMMARY | 2018-05-25 13:49 | XMS REPORT | Summary of Care ---
Author Author [facility] Organization [facility] Address Unknown Phone Unavailable Encounter HQ Gill(LILIA) [id number] Date(s): 05/02/15 - 05/02/15 [facility] [address] [place] [address]- Discharge Disposition: Home Attending Physician: Debby Amato DO Vital Signs Most recent to 1 2 oldest [Reference Range]: Height 157.48 cm (05/02/15 11:24 AM) Most recent to 1 2 oldest [Reference Range]: Temperature Oral 98.0 DegF 97.7 DegF [96.4-99.1 DegF] (05/02/15 3:26 PM) (05/02/15 11:24 AM) Most recent to 1 2 oldest [Reference Range]: Blood Pressure 150/66 mmHg [90-140/60-90 mmHg] *HI* (05/02/15 11:24 AM) Systolic Blood 154 mmHg Pressure [90-140 *HI* mmHg] (05/02/15 3:26 PM) Most recent to 1 2 oldest [Reference Range]: Diastolic Blood 69 mmHg Pressure [60-90 (05/02/15 3:26 PM) mmHg] Most recent to 1 2 oldest [Reference Range]: Respiratory Rate 18 BRMIN 16 BRMIN [14-20 BRMIN] (05/02/15 3:26 PM) (05/02/15 11:24 AM) Most recent to 1 2 oldest [Reference Range]: Peripheral Pulse 66 bpm 70 bpm Rate [60-100 bpm] (05/02/15 3:26 PM) (05/02/15 11:24 AM) Most recent to 1 2 oldest [Reference Range]: Weight 97.727 kg (05/02/15 11:24 AM) Most recent to 1 2 oldest [Reference Range]: Body Mass Index 39.41 m2 (05/02/15 11:24 AM) Problem List Condition Effective Dates Status Health [...] No data available for this section Results ELECTROLYTES Most recent to 1 oldest [Reference Range]: Sodium Lvl [135-145 141 mEq/L mEq/L] (05/02/15 2:38 PM) Potassium Lvl 5.9 mEq/L 1 [3.5-5.1 mEq/L] *HI* (05/02/15 2:38 PM) Chloride Lvl [95-109 114 mEq/L mEq/L] *HI* (05/02/15 2:38 PM) CO2 [24-32 mEq/L] 21 mEq/L *LOW* (05/02/15 2:38 PM) AGAP [10.0-20.0 11.9 mEq/L mEq/L] (05/02/15 2:38 PM) 1Result Comment: Slight hemolysis present. CHEM PANEL Most recent to 1 oldest [Reference Range]: Creatinine Lvl 1.6 mg/dL [0.5-1.4 mg/dL] *HI* (05/02/15 2:38 PM) eGFR 30 mL/min/1.73m2 2 *NA* (05/02/15 2:38 PM) BUN [7-22 mg/dL] 49 mg/dL *HI* (05/02/15 2:38 PM) B/C Ratio [6-25] 31 *HI* (05/02/15 2:38 PM) Glucose Lvl [70-99 98 mg/dL mg/dL] (05/02/15 2:38 PM) Total Protein 7.0 g/dL [6.4-8.4 g/dL] (05/02/15 2:38 PM) Albumin Lvl [3.5-5.0 3.4 g/dL g/dL] *LOW* (05/02/15 2:38 PM) Globulin [2.0-4.0 3.6 g/dL g/dL] (05/02/15 2:38 PM) A/G Ratio [0.7-1.6] 0.9 (05/02/15 2:38 PM) Calcium Lvl 9.2 mg/dL [8.5-10.5 mg/dL] (05/02/15 2:38 PM) ALT [0-65 unit/L] 39 unit/L (05/02/15 2:38 PM) AST [0-37 unit/L] 39 unit/L *HI* (05/02/15 2:38 PM) Alk Phos [39-136 122 unit/L unit/L] (05/02/15 2:38 PM) Bili Total [0.2-1.3 0.5 mg/dL mg/dL] (05/02/15 2:38 PM) 2Result Comment: The eGFR is calculated using [...] be mul tiplied by the estimated BMI. HEMATOLOGY Most recent to 1 oldest [Reference Range]: WBC [3.7-10.4 K/CMM] 8.0 K/CMM (05/02/15 2:38 PM) RBC [4.20-5.40 4.36 M/CMM M/CMM] (05/02/15 2:38 PM) Hgb [12.0-16.0 g/dL] 13.4 g/dL (05/02/15 2:38 PM) Hct [36.0-48.0 %] 42.1 % (05/02/15 2:38 PM) MCV [80.0-98.0 fL] 96.6 fL (05/02/15 2:38 PM) MCH [27.0-31.0 pg] 30.8 pg (05/02/15 2:38 PM) MCHC [32.0-36.0 31.9 g/dL g/dL] *LOW* (05/02/15 2:38 PM) RDW [11.5-14.5 %] 15.3 % *HI* (05/02/15 2:38 PM) Platelet [133-450 230 K/CMM K/CMM] (05/02/15 2:38 PM) MPV [7.4-10.4 fL] 8.6 fL (05/02/15 2:38 PM) Segs [45.0-75.0 %] 59.8 % (05/02/15 2:38 PM) Lymphocytes 30.2 % [20.0-40.0 %] (05/02/15 2:38 PM) Monocytes [2.0-12.0 7.1 % %] (05/02/15 2:38 PM) Eosinophils [0.0-4.0 2.0 % %] (05/02/15 2:38 PM) Basophils [0.0-1.0 0.9 % %] (05/02/15 2:38 PM) Segs-Bands # 4.8 K/CMM [1.5-8.1 K/CMM] (05/02/15 2:38 PM) Lymphocytes # 2.4 K/CMM [1.0-5.5 K/CMM] (05/02/15 2:38 PM) Monocytes # [0.0-0.8 0.6 K/CMM K/CMM] (05/02/15 2:38 PM) Eosinophils # 0.2 K/CMM [0.0-0.5 K/CMM] (05/02/15 2:38 PM) Basophils # [0.0-0.2 0.1 K/CMM K/CMM] (05/02/15 2:38 PM) PT [12.0-14.7 13.7 seconds seconds] (05/02/15 2:38 PM) INR [0.85-1.17] 1.02 (05/02/15 2:38 PM) PTT [22.9-35.8 34.8 seconds seconds] (05/02/15 2:38 PM) Immunizations Vaccine Date Refusal Reason influenza virus vaccine, inactivated1 09/03/12 1Admin Note: PATIENT STATES RECEIVED IN APRIL OF 2012 AT [facility] Procedures Procedure Date Related Diagnosis Body [...]
--- OUTSIDE RECORDS SUMMARY | 2018-05-25 13:49 | XMS REPORT | Summary of Care ---
Author Author [facility] Organization [facility] Address Unknown Phone Unavailable Encounter HQ Gill(FIN) [id number] Date(s): 04/16/16 - 04/16/16 [facility] [address] [place] [address]- Discharge Disposition: Home or Self Care Attending Physician: Jair Moeller MD Admitting Physician: Jair Moeller MD Vital Signs No data available for [...] 1 oldest [Reference Range]: Sodium Lvl [135-145 144 mEq/L mEq/L] (04/16/16 1:02 PM) Potassium Lvl 3.9 mEq/L [3.5-5.1 mEq/L] (04/16/16 1:02 PM) Chloride Lvl [95-109 111 mEq/L mEq/L] *HI* (04/16/16 1:02 PM) CO2 [24-32 mEq/L] 26 mEq/L (04/16/16 1:02 PM) AGAP [10.0-20.0 10.9 mEq/L mEq/L] (04/16/16 1:02 PM) CHEM PANEL Most recent to 1 oldest [Reference Range]: Creatinine Lvl 1.20 mg/dL [0.50-1.40 mg/dL] (04/16/16 1:02 PM) eGFR 42 mL/min/1.73m2 1 *NA* (04/16/16 1:02 PM) BUN [7-22 mg/dL] 17 mg/dL (04/16/16 1:02 PM) B/C Ratio [6-25] 14 (04/16/16 1:02 PM) Glucose Lvl [70-99 109 mg/dL mg/dL] *HI* (04/16/16 1:02 PM) Total Protein 6.9 g/dL [6.4-8.4 g/dL] (04/16/16 1:02 PM) Albumin Lvl [3.5-5.0 3.1 g/dL g/dL] *LOW* (04/16/16 1:02 PM) Globulin [2.7-4.2 3.8 g/dL g/dL] (04/16/16 1:02 PM) A/G Ratio [0.7-1.6] 0.8 (04/16/16 1:02 PM) Calcium Lvl 9.2 mg/dL [8.5-10.5 mg/dL] (04/16/16 1:02 PM) ALT [0-65 unit/L] 31 unit/L (04/16/16 1:02 PM) AST [0-37 unit/L] 28 unit/L (04/16/16 1:02 PM) Alk Phos [39-136 181 unit/L unit/L] *HI* (04/16/16 1:02 PM) Bili Total [0.2-1.3 0.6 mg/dL mg/dL] (04/16/16 1:02 PM) 1Result Comment: The eGFR is calculated [...] 1 oldest [Reference Range]: WBC [3.7-10.4 K/CMM] 9.2 K/CMM (04/16/16 1:02 PM) RBC [4.20-5.40 3.87 M/CMM M/CMM] *LOW* (04/16/16 1:02 PM) Hgb [12.0-16.0 g/dL] 12.0 g/dL (04/16/16 1:02 PM) Hct [36.0-48.0 %] 35.7 % *LOW* (04/16/16 1:02 PM) MCV [80.0-98.0 fL] 92.3 fL (04/16/16 1:02 PM) MCH [27.0-31.0 pg] 31.1 pg *HI* (04/16/16 1:02 PM) MCHC [32.0-36.0 33.6 g/dL g/dL] (04/16/16 1:02 PM) RDW [11.5-14.5 %] 14.1 % (04/16/16 1:02 PM) Platelet [133-450 383 K/CMM K/CMM] (04/16/16 1:02 PM) MPV [7.4-10.4 fL] 8.0 fL (04/16/16 1:02 PM) Segs [45.0-75.0 %] 73.5 % (04/16/16 1:02 PM) Lymphocytes 16.2 % [20.0-40.0 %] *LOW* (04/16/16 1:02 PM) Monocytes [2.0-12.0 6.7 % %] (04/16/16 1:02 PM) Eosinophils [0.0-4.0 2.9 % %] (04/16/16 1:02 PM) Basophils [0.0-1.0 0.7 % %] (04/16/16 1:02 PM) Segs-Bands # 6.8 K/CMM [1.5-8.1 K/CMM] (04/16/16 1:02 PM) Lymphocytes # 1.5 K/CMM [1.0-5.5 K/CMM] (04/16/16 1:02 PM) Monocytes # [0.0-0.8 0.6 K/CMM K/CMM] (04/16/16 1:02 PM) Eosinophils # 0.3 K/CMM [0.0-0.5 K/CMM] (04/16/16 1:02 PM) Basophils # [0.0-0.2 0.1 K/CMM K/CMM] (04/16/16 1:02 PM) Immunizations Given and Recorded Vaccine Date Status Refusal Reason influenza virus vaccine, inactivated1 09/03/12 Given 1Admin Note: PATIENT STATES RECEIVED IN APRIL OF 2012 AT [facility] Procedures Procedure Date Related Diagnosis Body [...] No 1Last Appt: 2012, has appt February on [address] Finch. Assessment and Plan No data available for this section
--- OUTSIDE RECORDS SUMMARY | 2018-05-25 13:49 | XMS REPORT | Summary of Care ---
Author Author [facility] Organization [facility] Address Unknown Phone Unavailable Encounter HQ Gill(FIN) [id number] Date(s): 09/22/15 - 09/22/15 [facility] [address] [place] [address]- [phone] Discharge Disposition: Home Attending Physician: Rishi Richards MD Vital Signs 1 2 3 Most recent to oldest [Reference Range]: 157.48 cm (09/22/15 8:23 AM) Height 98.0 DegF (09/22/15 2:00 PM) 98.2 DegF (09/22/15 8:23 AM) Temperature Oral [96.4-99.1 DegF] 150/84 mmHg *HI* (09/22/15 2:00 PM) 144/61 mmHg *HI* (09/22/15 12:45 PM) 140/84 mmHg (09/22/15 11:15 AM) Blood Pressure [90-140/60-90 mmHg] 18 BRMIN (09/22/15 2:00 PM) 18 BRMIN (09/22/15 12:45 PM) 23 BRMIN *HI* (09/22/15 11:15 AM) Respiratory Rate [14-20 BRMIN] 90 bpm (09/22/15 8:23 AM) Peripheral Pulse Rate [60-100 bpm] 97.273 kg (09/22/15 8:23 AM) Weight 39.22 m2 (09/22/15 8:23 AM) Body Mass Index Problem List Condition Effective Dates Status Health Status Informant Arthritis(Confirmed) Resolved Chicken Resolved pox(Confirmed) Disorder associated 08/03/10 Resolved with type 2 [...] on 09/23/15. Originally documented as NKA. Medications Benicar 40 mg, 2 tab, Route: PO, Drug form: TAB, ONCE, Dosing Weight 97.273, kg, Start d ate: 09/22/15 12:56:00, Stop date: 09/22/15 12:56:00 Start Date: 09/22/15 Stop Date: 09/22/15 Status: Completed Cipro 250 mg oral tablet 250 mg=1 tab, PO, Q12H, X 7 day, # 14 tab, 0 Refill(s), Pharmacy: [facility] [id number] Start Date: 09/22/15 Stop Date: 09/29/15 Status: Ordered ciprofloxacin 500 mg, Route: PO, ONCE, Dosing Weight 97.273, kg, Priority: STAT, Start date: 0 09/22/15 12:50:00, Stop date: 09/22/15 12:50:00 Start Date: 09/22/15 Stop Date: 09/22/15 Status: Completed morphine Sulfate 4 mg, Route: IVP, ONCE, Dosing Weight 97.273, kg, Priority: STAT, Start date: 8:47:00, Stop date: 09/22/15 8:47:00 Start Date: 09/22/15 Stop Date: 09/22/15 Status: Completed ondansetron 4 mg, Route: IVP, ONCE, Dosing Weight 97.273, kg, Priority: STAT, Start date: 8:47:00, Stop date: 09/22/15 8:47:00 Start Date: 09/22/15 Stop Date: 09/22/15 Status: Completed Saline Flush 0.9% 10 mL, Route: IVP, Drug Form: INJ, Dosing Weight 97.273, kg, PRN, PRN Line Flush , Start date: 09/22/15 8:47:00, Duration: 30 day, Stop date: 10/22/15 9:46:00 Notes: (Same as: BD Posiflush) Start Date: 09/22/15 Stop Date: 09/22/15 Status: Discontinued Sodium Chloride 0.9% (Bolus) IV 1,000 mL, 1,000 ml/hr, Infuse Over: 1 Hour, Route: IV, ONCE, Priority: STAT, Dos ing Weight 97.273 kg, Start date: 09/22/15 8:51:00, Duration: 1 doses or times, Stop date: 09/22/15 8:51:00 Start Date: 09/22/15 Stop Date: 09/22/15 Status: Discontinued Sodium Chloride 0.9% (Bolus) IV 1,000 mL, Infuse Over: 1 hr, Route: IV, ONCE, Priority: STAT, Dosing Weight 97.2 73 kg, Start date: 09/22/15 8:47:00, Duration: 1 doses or times, Stop date: 10/04 8:47:00 Start Date: 09/22/15 Stop Date: 09/22/15 Status: Completed Zofran 4 mg oral tablet 4 mg=1 tab, PO, BID, X 5 day, # 10 tab, 0 Refill(s), Pharmacy: [facility] [id number] Start Date: 09/22/15 Stop Date: 09/27/15 Status: Ordered Results ELECTROLYTES Most recent to 1 oldest [Reference Range]: Sodium Lvl [135-145 137 mEq/L mEq/L] (09/22/15 9:02 AM) Potassium Lvl 4.7 mEq/L [3.5-5.1 mEq/L] (09/22/15 9:02 AM) Chloride Lvl [95-109 108 mEq/L mEq/L] (09/22/15 9:02 AM) CO2 [24-32 mEq/L] 25 mEq/L (09/22/15 9:02 AM) AGAP [10.0-20.0 8.7 mEq/L mEq/L] *LOW* (09/22/15 9:02 AM) CHEM PANEL Most recent to 1 oldest [Reference Range]: Creatinine Lvl 1.31 mg/dL [0.50-1.40 mg/dL] (09/22/15 9:02 AM) eGFR 38 mL/min/1.73m2 1 *NA* (09/22/15 9:02 AM) BUN [7-22 mg/dL] 41 mg/dL *HI* (09/22/15 9:02 AM) B/C Ratio [6-25] 31 *HI* (09/22/15 9:02 AM) Glucose Lvl [70-99 195 mg/dL mg/dL] *HI* (09/22/15 9:02 AM) Total Protein 6.4 g/dL [6.4-8.4 g/dL] (09/22/15 9:02 AM) Albumin Lvl [3.5-5.0 3.1 g/dL g/dL] *LOW* (09/22/15 9:02 AM) Globulin [2.0-4.0 3.3 g/dL g/dL] (09/22/15 9:02 AM) A/G Ratio [0.7-1.6] 0.9 (09/22/15 9:02 AM) Calcium Lvl 8.6 mg/dL [8.5-10.5 mg/dL] (09/22/15 9:02 AM) Phosphorus [2.5-4.5 2.5 mg/dL mg/dL] (09/22/15 9:02 AM) Magnesium Lvl 2.3 mg/dL [1.8-2.4 mg/dL] (09/22/15 9:02 AM) ALT [0-65 unit/L] 44 unit/L (09/22/15 9:02 AM) AST [0-37 unit/L] 32 unit/L (09/22/15 9:02 AM) Alk Phos [39-136 122 unit/L unit/L] (09/22/15 9:02 AM) Bili Total [0.2-1.3 0.6 mg/dL mg/dL] (09/22/15 9:02 AM) 1Result Comment: The eGFR is calculated [...] be mul tiplied by the estimated BMI. URINE AND STOOL Most recent to 1 oldest [Reference Range]: UA Turbidity [Clear] Slight *ABN* (09/22/15 9:21 AM) UA Color [Yellow] Yellow *NA* (09/22/15 9:21 AM) UA pH [5.0-8.0] 5.0 (09/22/15 9:21 AM) UA Spec Grav 1.018 [<=1.030] (09/22/15 9:21 AM) UA Glucose [Negative 500 mg/dL mg/dL] *ABN* (09/22/15 9:21 AM) UA Blood [Negative] Moderate *ABN* (09/22/15 9:21 AM) UA Ketones [Negative Negative mg/dL mg/dL] *NA* (09/22/15 9:21 AM) UA Protein [Negative Negative mg/dL mg/dL] (09/22/15 9:21 AM) UA Urobilinogen <=1.0 mg/dL [0.1-1.0 mg/dL] *NA* (09/22/15 9:21 AM) UA Bili [Negative] Negative *NA* (09/22/15 9:21 AM) UA Leuk Est Small [Negative] *ABN* (09/22/15 9:21 AM) UA Nitrite Negative [Negative] (09/22/15 9:21 AM) UA WBC [0-5 /HPF] 9 /HPF *HI* (09/22/15 9:21 AM) UA RBC [0-2 /HPF] 35 /HPF *HI* (09/22/15 9:21 AM) UA Sq Epi [Few /LPF] Occasional /LPF *NA* (09/22/15 9:21 AM) HEMATOLOGY Most recent to 1 oldest [Reference Range]: WBC [3.7-10.4 K/CMM] 9.1 K/CMM (09/22/15 9:02 AM) RBC [4.20-5.40 4.80 M/CMM M/CMM] (09/22/15 9:02 AM) Hgb [12.0-16.0 g/dL] 14.4 g/dL (09/22/15 9:02 AM) Hct [36.0-48.0 %] 44.0 % (09/22/15 9:02 AM) MCV [80.0-98.0 fL] 91.7 fL (09/22/15 9:02 AM) MCH [27.0-31.0 pg] 30.0 pg (09/22/15 9:02 AM) MCHC [32.0-36.0 32.8 g/dL g/dL] (09/22/15 9:02 AM) RDW [11.5-14.5 %] 14.8 % *HI* (09/22/15 9:02 AM) Platelet [133-450 211 K/CMM K/CMM] (09/22/15 9:02 AM) MPV [7.4-10.4 fL] 8.5 fL (09/22/15 9:02 AM) Segs [45.0-75.0 %] 89.7 % *HI* (09/22/15 9:02 AM) Lymphocytes 5.8 % [20.0-40.0 %] *LOW* (09/22/15 9:02 AM) Monocytes [2.0-12.0 4.0 % %] (09/22/15 9:02 AM) Eosinophils [0.0-4.0 0.2 % %] (09/22/15 9:02 AM) Basophils [0.0-1.0 0.3 % %] (09/22/15 9:02 AM) Segs-Bands # 8.2 K/CMM [1.5-8.1 K/CMM] *HI* (09/22/15 9:02 AM) Lymphocytes # 0.5 K/CMM [1.0-5.5 K/CMM] *LOW* (09/22/15 9:02 AM) Monocytes # [0.0-0.8 0.4 K/CMM K/CMM] (09/22/15 9:02 AM) PT [12.0-14.7 14.6 seconds seconds] (09/22/15 9:02 AM) INR [0.85-1.17] 1.11 (09/22/15 9:02 AM) PTT [22.9-35.8 32.2 seconds seconds] (09/22/15 9:02 AM) Immunizations Vaccine Date Refusal Reason influenza [...]
--- OUTSIDE RECORDS SUMMARY | 2018-05-25 13:49 | XMS REPORT | Summary of Care ---
Author Author [facility] Organization [facility] Address Unknown Phone Unavailable Encounter HQ Gill(FIN) [id number] Date(s): 03/16/16 - 03/16/16 [facility] [address] [place] [phone] Discharge Disposition: Home or Self Care Attending Physician: Jair Moeller MD Vital Signs No [...] STATES RECEIVED IN APRIL OF 2012 AT [facility] Procedures Procedure Date Related Diagnosis Body [...]
--- OUTSIDE RECORDS SUMMARY | 2018-05-25 13:50 | XMS REPORT | Summary of Care ---
Author Author [facility] Organization [facility] Address Unknown Phone Unavailable Encounter NAVEED Garland(LILIA) [id number] Date(s): 08/05/17 - 08/05/17 [facility] [address] [facility] [address] [place] [address]- Discharge Disposition: Home or Self Care Attending Physician: Em Hansen MD Referring Physician: Em Hansen MD Vital Signs Most recent to 1 oldest [Reference Range]: Height 157.48 cm (08/05/17 10:48 AM) Blood Pressure 115/72 mmHg [90-140/60-90 mmHg] (08/05/17 10:48 AM) Peripheral Pulse 69 bpm Rate [60-100 bpm] (08/05/17 10:48 AM) Weight 96.818 kg (08/05/17 10:48 AM) Body Mass Index 39.04 m2 (08/05/17 10:48 AM) Problem List Condition Effective Dates Status Health Status Informant Arthritis(Confirmed) Resolved Chicken Resolved pox(Confirmed) COPD(Confirmed) Resolved Low serum vitamin Active D(Confirmed) Diabetes(Confirmed) Resolved Disorder associated 08/03/10 Resolved with type 2 diabetes mellitus1 History of frequent Active urinary tract infections(Confirmed ) Hyperlipidemia2 08/03/10 Active Hypernatremia(Confir Active med) Mixed Active hyperlipidemia(Confi rmed) Morbid Active obesity(Confirmed) Obesity(Confirmed) Active Obesity3 08/03/10 Active Osteoporosis4 08/03/10 Active Pneumonia(Confirmed) Resolved PUD - Peptic ulcer Resolved disease(Confirmed) Steatosis of liver5 Active Diabetes mellitus Active type 2 in obese(Confirmed) Upper respiratory 01/19/13 Resolved infection6 Urinary tract 04/17/12 Resolved infectious disease7 Vitamin D 04/16/11 Active deficiency8 1Data migrated from [facility] on 12/20/14. 2Data migrated from [employer] on 12/20/14. 3Data migrated from [employer] on 12/20/14. 4Data migrated from [employer] on 12/20/14. 5Data migrated from [employer] on 12/20/14. 6Data migrated from [employer] on 02/04/15. 7Data migrated from [employer] on 02/04/15. 8Data migrated from [employer] on 12/20/14. Allergies, Adverse Reactions, Alerts Substance Reaction Severity Status NKDA Active Medications amoxicillin 500 mg oral tablet See Instructions, 1 tab PO q 8 hours, 0 Refill(s) Start Date: 08/05/17 Status: Ordered furosemide 40 mg oral tablet 40 mg=1 tab, PO, Daily, # 30 tab, 0 Refill(s) Start Date: 08/05/17 Status: Ordered Procardia XL 30 mg oral tablet, extended release 30 mg=1 tab, PO, Daily, # 30 tab, 0 Refill(s) Start Date: 08/05/17 Status: Ordered Results No data available for this section Immunizations Given and Recorded Vaccine Date Status Refusal Reason influenza virus vaccine, inactivated1 09/03/12 Given 1Admin Note: PATIENT STATES RECEIVED IN APRIL OF 2012 AT [facility] Procedure Date Related Diagnosis Body Site Status Hysterectomy 06/24/17 Completed Eye examination1 11/16/16 Completed Arthroscopy of knee with meniscus repair Completed Cataract surgery Completed Hernia repair Completed 1Diabetic Eye Exam-Normal exam. Social History Social History Type Response Substance Abuse Use: None. Exercise Exercise duration: 0. Employment/School Status: Employed. 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 Other: Maritial Status: Pets: none,Children: [address] Finch 6 months ago Surrogate Decision Maker: herself,.1 Alcohol Never Smoking Status Never smoker; Exposure to Tobacco Smoke None; Cigarette Smoking Last 365 Days No; Reg Smoking Cessation Counseling No entered on: 08/05/17 1Last Appt: 2012, has appt February on [address] Finch. Assessment and Plan No data available for this section
--- OUTSIDE RECORDS SUMMARY | 2018-05-25 13:50 | XMS REPORT | Summary of Care ---
Author Author [facility] Organization [facility] Address Unknown Phone Unavailable Encounter NAVEED Garland(LILIA) [id number] Date(s): 08/05/17 - 08/05/17 [facility] [address] [facility] [address] [place] [address]- Discharge Disposition: Home or Self Care Attending [...] D 04/16/11 Active deficiency8 1Data migrated from [facility] on 12/20/14. 2Data migrated from [employer] [...] STATES RECEIVED IN APRIL OF 2012 AT [facility] Procedure Date Related Diagnosis Body Site [...]
--- OUTSIDE RECORDS SUMMARY | 2018-05-25 13:50 | XMS REPORT | Summary of Care ---
Author Author [facility] Organization [facility] Address Unknown Phone Unavailable Encounter NAVEED Garland(FIN) [id number] Date(s): 10/28/17 - 10/29/17 [facility] [address] [facility] [address] [place] [address]- Vital Signs No data available for this [...] Substance Reaction Severity Status NKDA Active Medications Humalog Kwik Pen 100 units/mL subcutaneous injection See Instructions, USE DIRECTED, # 45 mL, 5 Refill(s), Pharmacy: [facility] [id number] Start Date: 10/28/17 Stop Date: 10/29/17 Status: Completed Results No data available for this section Immunizations Given and Recorded Vaccine Date Status Refusal Reason influenza virus vaccine, inactivated1 09/03/12 Given 1Admin Note: PATIENT STATES RECEIVED IN APRIL OF 2012 AT [facility] Procedures Procedure Date Related Diagnosis Body Site Status [...] 08/05/17 1Last Appt: 2012, has appt February to see Dr. Finch. Assessment and Plan No data available for this section
--- OUTSIDE RECORDS SUMMARY | 2018-05-25 13:50 | XMS REPORT | Summary of Care ---
Author Author [facility] Organization [facility] Internal Medicine [facility] Address Unknown Phone Unavailable Encounter NAVEED Garland(FIN) [id number] Date(s): 11/20/17 - 11/21/17 [facility] Internal Medicine [facility] [address] [facility] [address] [place] [address]- Vital Signs No data available for this [...] APRIL OF 2012 AT [facility] Procedures Procedure Date Related Diagnosis Body [...]
--- OUTSIDE RECORDS SUMMARY | 2018-05-25 13:50 | XMS REPORT | Summary of Care ---
Author Author [facility] Internal Medicine [facility] Organization [facility] Internal Medicine [facility] Address Unknown Phone Unavailable Encounter HQ Gill(FIN) [phone] Date(s): 07/09/17 - 07/10/17 [facility] Internal Medicine [facility] [address] [facility] [address] [place] [address]- Vital Signs No data available for this [...] STATES RECEIVED IN APRIL OF 2012 AT [facility] Procedures Procedure Date Related Diagnosis Body Site Eye examination1 11/16/16 Arthroscopy of knee with meniscus repair Cataract surgery Hernia repair 1Diabetic Eye Exam-Normal exam. Social History Social [...]
--- OUTSIDE RECORDS SUMMARY | 2018-05-25 13:50 | XMS REPORT | Summary of Care ---
Author Author [facility] Internal Medicine [facility] Organization [facility] Internal Medicine [facility] Address Unknown Phone Unavailable Encounter NAVEED Garland(LILIA) [id number] Date(s): 11/12/17 - 11/13/17 [facility] Internal Medicine [facility] [address] [facility] [address] [place] [address]- Vital Signs No data available for this [...] Substance Reaction Severity Status NKDA Active Medications pantoprazole 40 mg oral enteric coated tablet See Instructions, # 90 tab, TAKE 1 TABLET BY MOUTH DAILY, Pharmacy: [facility] [id number] Start Date: 11/12/17 Status: Ordered Results No data available for [...]
--- OUTSIDE RECORDS SUMMARY | 2018-05-25 13:50 | XMS REPORT | Summary of Care ---
Author Author [facility] Internal Medicine [facility] Organization [facility] Internal Medicine [facility] Address Unknown Phone Unavailable Encounter NAVEED Garland(LILIA) [phone] Date(s): 12/09/17 - 12/10/17 [facility] Internal Medicine [facility] [address] [address] [place] [address]- Vital Signs No data available for this [...] Substance Reaction Severity Status NKDA Active Medications atorvastatin 10 mg oral tablet See Instructions, # 90 tab, TAKE 1 TABLET BY MOUTH EVERY DAY, Pharmacy: [id number] Start Date: 12/09/17 Status: Ordered Results No data available for this section Immunizations Given and Recorded Vaccine Date Status Refusal Reason influenza virus vaccine, inactivated1 09/03/12 Given 1Admin Note: PATIENT STATES RECEIVED IN APRIL OF 2012 AT [facility] Procedures Procedure Date Related Diagnosis Body [...] Reg Smoking Cessation Counseling No entered on: 12/09/17 1Last Appt: 2012, has appt February on [address] Finch. Assessment and Plan No data available for this section
--- OUTSIDE RECORDS SUMMARY | 2018-05-25 13:50 | XMS REPORT | Summary of Care ---
Author Author [facility] Internal Medicine [facility] Organization [facility] Internal Medicine [facility] Address Unknown Phone Unavailable Encounter NAVEED Garland(LILIA) [id number] Date(s): 12/18/17 - 12/19/17 [facility] Internal Medicine [facility] [address] [facility] [address] [place] [address]- Vital Signs No data available for this [...] BY MOUTH DAILY, Pharmacy: [facility] [id number] Start Date: 12/18/17 Status: Ordered Results No data available for [...]
--- OUTSIDE RECORDS SUMMARY | 2018-05-25 13:50 | XMS REPORT | Summary of Care ---
Author Author [facility] Internal Medicine [facility] Organization [facility] Internal Medicine [facility] Address Unknown Phone Unavailable Encounter NAVEED Garland(LILIA) [phone] Date(s): 09/09/17 - 09/10/17 [facility] Internal Medicine [facility] [address] [facility] [address] [place] [address]- Vital Signs No data available for this [...] 1 TABLET BY MOUTH EVERY DAY, Pharmacy: [facility] [id number] Start Date: 09/09/17 Stop Date: 12/09/17 Status: Completed Results No data available for this section Immunizations Given and Recorded Vaccine Date Status Refusal Reason influenza virus vaccine, inactivated1 09/03/12 Given 1Admin Note: PATIENT STATES RECEIVED IN APRIL OF 2012 AT [facility] Procedures Procedure Date Related Diagnosis Body [...] 12/09/17 1Last Appt: 2012, has appt February to see Dr. Finch. Assessment and Plan No data available for this section
--- OUTSIDE RECORDS SUMMARY | 2018-05-25 13:50 | XMS REPORT | Summary of Care ---
Author Author [facility] [place] [facility] [place] [facility] [place] [facility] Address Unknown Phone Unavailable Encounter NAVEED Garland(LILIA) [id number] Date(s): 08/05/17 - 08/05/17 [facility] Internal Medicine [facility] 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 2Data migrated from [employer] [...] STATES RECEIVED IN APRIL OF 2012 AT [facility] Procedures Procedure Date Related Diagnosis [...]
--- OUTSIDE RECORDS SUMMARY | 2018-05-25 13:50 | XMS REPORT | Summary of Care ---
Author Author [facility] Internal Medicine [facility] Organization [facility] Internal Medicine [facility] Address Unknown Phone Unavailable Encounter NAVEED Garland(LILIA) [id number] Date(s): 12/09/17 - 12/09/17 [facility] Internal Medicine [facility] [address] [facility] [address] [place] [address]- Discharge Disposition: Home or Self Care Attending Physician: Em Hansen MD Referring Physician: Em Hansen MD Vital Signs Most recent to 1 oldest [Reference Range]: Height 157.48 cm (12/09/17 9:32 AM) Blood Pressure 132/60 mmHg [90-140/60-90 mmHg] (12/09/17 9:32 AM) Peripheral Pulse 53 bpm Rate [60-100 bpm] *LOW* (12/09/17 9:32 AM) Weight 101.818 kg (12/09/17 9:32 AM) Body Mass Index 41.06 m2 (12/09/17 9:32 AM) Problem List Condition Effective Dates Status [...] Reaction Severity Status NKDA Active Medications No Known Medications Results ELECTROLYTES Most recent to 1 oldest [Reference Range]: Sodium Lvl [134-144 143 mMol/L mMol/L] (12/03/17 9:45 AM) Potassium Lvl 5.0 mMol/L [3.5-5.2 mMol/L] (12/03/17 9:45 AM) Chloride Lvl [96-106 107 mMol/L mMol/L] *HI* (12/03/17 9:45 AM) CO2 [18-29 mMol/L] 20 mMol/L (12/03/17 9:45 AM) CHEM PANEL Most recent to 1 oldest [Reference Range]: Creatinine Lvl 1.64 mg/dL [0.57-1.00 mg/dL] *HI* (12/03/17 9:45 AM) BUN [8-27 mg/dL] 35 mg/dL *HI* (12/03/17 9:45 AM) B/C Ratio [12-28] 21 (12/03/17 9:45 AM) Glucose Lvl [65-99 173 mg/dL mg/dL] *HI* (12/03/17 9:45 AM) Total Protein 6.9 g/dL [6.0-8.5 g/dL] (12/03/17 9:45 AM) Albumin Lvl [3.5-4.7 3.8 g/dL g/dL] (12/03/17 9:45 AM) Globulin [1.5-4.5 3.1 g/dL g/dL] (12/03/17 9:45 AM) A/G Ratio [1.2-2.2] 1.2 (12/03/17 9:45 AM) Calcium Lvl 10.0 mg/dL [8.7-10.3 mg/dL] (12/03/17 9:45 AM) ALT [0-32 IU/L] 15 IU/L (12/03/17 9:45 AM) AST [0-40 IU/L] 23 IU/L (12/03/17 9:45 AM) Alk Phos [39-117 98 IU/L IU/L] (12/03/17 9:45 AM) Bili Total [0.0-1.2 0.4 mg/dL mg/dL] (12/03/17 9:45 AM) SPECIAL CHEMISTRY Most recent to 1 oldest [Reference Range]: Hgb A1C [4.8-5.6 %] 8.0 % 1 *HI* (12/03/17 9:45 AM) 1Result Comment: Pre-diabetes: 5.7 - 6.4 Diabetes: >6.4 Glycemic control for adults with diabetes: <7.0 HEMATOLOGY Most recent to 1 oldest [Reference Range]: WBC [3.4-10.8 K/CMM] 5.6 K/CMM (12/03/17 9:45 AM) RBC [3.77-5.28 4.22 M/CMM M/CMM] (12/03/17 9:45 AM) Hgb [11.1-15.9 g/dL] 12.8 g/dL (12/03/17 9:45 AM) Hct [34.0-46.6 %] 40.1 % (12/03/17 9:45 AM) MCV [79-97 fL] 95 fL (12/03/17 9:45 AM) MCH [26.6-33.0 pg] 30.3 pg (12/03/17 9:45 AM) MCHC [31.5-35.7 31.9 g/dL g/dL] (12/03/17 9:45 AM) RDW [12.3-15.4 %] 14.6 % (12/03/17 9:45 AM) Platelet [150-379 318 K/CMM K/CMM] (12/03/17 9:45 AM) Segs [Not Estab. %] 57 % (12/03/17 9:45 AM) Lymphocytes [Not 32 % Estab. %] (12/03/17 9:45 AM) Monocytes [Not 7 % Estab. %] (12/03/17 9:45 AM) Eosinophils [Not 2 % Estab. %] (12/03/17 9:45 AM) Basophils [Not 1 % Estab. %] (12/03/17 9:45 AM) Immature Grans % 1 % [Not Estab. %] (12/03/17 9:45 AM) Segs-Bands # 3.2 K/CMM [1.4-7.0 K/CMM] (12/03/17 9:45 AM) Lymphocytes # 1.8 K/CMM [0.7-3.1 K/CMM] (12/03/17 9:45 AM) Monocytes # [0.1-0.9 0.4 K/CMM K/CMM] (12/03/17 9:45 AM) Eosinophils # 0.1 K/CMM [0.0-0.4 K/CMM] (12/03/17 9:45 AM) Basophils # [0.0-0.2 0.0 K/CMM K/CMM] (12/03/17 9:45 AM) Immature Cells # 0.0 K/CMM [0.0-0.1 K/CMM] (12/03/17 9:45 AM) Immunizations Given and Recorded Vaccine Date Status Refusal Reason influenza virus vaccine, inactivated1 09/03/12 Given 1Admin Note: PATIENT STATES RECEIVED IN [place]IL [facility] [address] [facility] Procedures Procedure Date Related Diagnosis [...] on: 12/09/17 1Last Appt: 2012, has appt [place] on [address] Finch. Assessment and Plan No data available for this section
--- OUTSIDE RECORDS SUMMARY | 2018-05-25 13:50 | XMS REPORT | Summary of Care ---
Author Author [facility] Internal Medicine [facility] Organization [facility] Internal Medicine [facility] Address Unknown Phone Unavailable Encounter NAVEED Garland(FIN) [id number] Date(s): 10/28/17 - 10/29/17 [facility] Internal Medicine [facility] [address] [facility] [address] [place] [address]- Vital Signs No data available for this [...] DIRECTED, # 45 mL, 5 Refill(s), Pharmacy: [facility] [id number] Start Date: 10/28/17 Stop Date: 10/29/17 Status: Completed Results No data available for this section Immunizations Given and Recorded Vaccine Date Status Refusal Reason influenza virus vaccine, inactivated1 09/03/12 Given 1Admin Note: PATIENT STATES RECEIVED IN APRIL OF 2012 AT [facility] Procedures Procedure Date Related Diagnosis Body [...]
--- OUTSIDE RECORDS SUMMARY | 2018-05-25 13:50 | XMS REPORT | Summary of Care ---
Author Author [facility] Internal [place] [facility] [place] [facility] Internal Medicine [facility] Address Unknown Phone Unavailable Encounter NAVEED Garland(FIN) [id number] Date(s): 11/08/17 - 11/09/17 [facility] Internal Medicine [facility] [address] [facility] [address] [place] [address]- Vital Signs No data available for this [...] STATES RECEIVED IN APRIL OF 2012 AT [facility] Procedures Procedure Date Related Diagnosis Body [...]
[2018-05-25] MEDS ORDERED: MORPHINE SULFATE 2 MG/ML SYR IV STA (15:15)
[2018-05-25] MEDS ORDERED: ONDANSETRON HCL INJ 2 MG/ML VIAL IV STA (15:15)
--- NOTE | 2018-05-25 16:44 | Diagnostic Imaging Report ---
EXAM: CT Abdomen and Pelvis WITHOUT contrast INDICATION: Pelvic pain/bladder area ^[id number] ^[id number] COMPARISON: None. TECHNIQUE: Abdomen and pelvis were scanned utilizing a multidetector helical scanner from the lung base to the pubic symphysis without administration of IV contrast. Absence of intravenous contrast decreases sensitivity for detection of focal lesions and vascular pathology. Coronal and sagittal reformations were obtained. Routine protocol was performed. IV CONTRAST: None ORAL CONTRAST: Gastrografin COMPLICATIONS: None RADIATION DOSE: Total DLP: 840.7 mGy*cm Estimated effective dose: (DLP x 0.015 x size factor) mSv CTDIvol has been reviewed. It is below the limits set by the Radiation Protocol Committee (RPC). Dose modulation, iterative reconstruction, and/or weight based adjustment of the mA/kV was utilized to reduce the radiation dose to as low as reasonably achievable. FINDINGS: Absence of intravenous contrast decreases sensitivity for detection of focal lesions and vascular pathology. LINES and TUBES: None. LOWER THORAX: Few scattered pulmonary nodules measuring up to 3 mm. Coronary artery calcifications. HEPATOBILIARY: No focal hepatic lesions. No biliary ductal dilation. GALLBLADDER: No radio-opaque stones or sludge. No wall thickening. SPLEEN: No splenomegaly. PANCREAS: No focal masses or ductal dilatation. ADRENALS: No adrenal nodules KIDNEYS/URETERS: No hydronephrosis. Left interpolar region 2 cm and right interpolar 1.1 cm fluid attenuating lesions are incompletely characterized without contrast but likely represent cysts. Exophytic right inferior pole 5.4 cm cyst. Additional rounded 1.1 cm fluid attenuating structure along the posterior interpolar region of the left kidney may represent an exophytic cyst or focal perinephric fluid. No stones. GI TRACT: No abnormal distention, wall thickening, or evidence of bowel obstruction. Appendix is normal. PELVIC ORGANS/BLADDER: Hysterectomy with asymmetric rounded prominence of the right vaginal cuff measuring 3.4 cm (series 2 image 83). No focal bladder wall thickening. LYMPH NODES: No lymphadenopathy. VESSELS: There is mild atherosclerotic disease in the aorta and major arterial branches. PERITONEUM / RETROPERITONEUM: No free air or fluid. BONES: Unremarkable. SOFT TISSUES: Banded area of stranding in the superficial anterior abdominal subcutaneous fat may be related to subcutaneous injections or surgery. IMPRESSION: 1. Rounded prominence of the right vaginal cuff. Recommend correlation for indication for hysterectomy and direct visualization to evaluate for a mass. 2. Tiny pulmonary nodules measuring up to 3 mm. Consider follow up according to Fleischner Society 2017 guidelines. Signed by: DR. Po Coelho MD on 05/25/2018 4:41 PM
[2018-05-25] MEDS ORDERED: CEFTRIAXONE SOD 1 GM VIAL IV ONE (17:30)
== END 2018-05-25 18:53 | disposition home or self-care (01) ==
LOC: FSED 13:39
DX: R10.30 Lower abdominal pain, unspecified (principal); R11.2 Nausea with vomiting, unspecified; N30.91 Cystitis, unspecified with hematuria
CPT/HCPCS: 74176; 80053; 81003; 85025; 87086; 99283; J0696; J2270; J2405

== ENCOUNTER 2018-09-16 11:38 | Emergency (ER) | payer MEDICARE, OTHER ==
[~2018-09-16] VITALS: Ht 152.4 cm; Wt 101.6 kg
--- OUTSIDE RECORDS SUMMARY | 2018-09-16 11:40 | XMS REPORT | Clinical Summary ---
Author Author ALFREDA TipHive Organization [facility] TipHive Address Unknown Phone Unavailable Care Team Providers Care Authorization Nurse Name Role Phone Dewey Molina PCP Allergies Comments Active Allergy Reactions Severity Noted Date itching Allopurinol Analogues Rash Low 04/04/2017 Medications End Date Status Medication Sig Dispensed Refills Start Date Active calcium carbonate Take 600 mg 0 (OS-VJ) 600 mg (1,500 by mouth 2 mg) Tab (two) times daily with breakfast and dinner. Active [id number] Take by 0 serr (OSTEO BI-FLEX) mouth. 1,500-400-100 mg-unit-mg Tab Active atorvastatin (LIPITOR) 10 Take 10 mg by 0 MG tablet mouth daily. Active insulin detemir (LEVEMIR) Inject 0 100 unit/mL injection subcutaneousl y nightly 33 units. Active aspirin 81 MG chewable Take 81 mg by 0 tablet mouth daily. Active canagliflozin (INVOKANA) Take by mouth 0 300 mg Tab daily. Active pantoprazole (PROTONIX) Take 40 mg by 0 40 MG tablet mouth daily. Active cholecalciferol, vitamin Take 4,000 0 D3, 4,000 unit Tab Units by mouth daily. Active olmesartan (BENICAR) 40 Take 40 mg by 0 MG tablet mouth daily. Active insulin lispro (HUMALOG) Inject 0 100 unit/mL subcutaneousl injectionIndications: y 3 (three) type 2 diabetes mellitus times daily before meals Takes sliding scale dose only . Active albuterol HFA (VENTOLIN Inhale 1 puff 0 HFA) 90 mcg/actuation by mouth via inhalerIndications: inhaler every Chronic Obstructive 6 (six) hours Pulmonary Disease as needed for Wheezing. Active montelukast (SINGULAIR) Take 10 mg by 0 10 mg tabletIndications: mouth every allergic rhinitis night as needed. Active sulfamethoxazole-trimetho Take 1 tablet 0 prim (BACTRIM,SEPTRA) by mouth 400-80 mg per tablet daily Has frequent UTIs that lead to URI. Used for UTI prophylaxis. . Active AZELASTINE/FLUTICASONE 1 spray by 0 (DYMISTA Nasal route 2 NASAL)Indications: (two) times allergic rhinitis daily as needed. Active DRONEDARONE HCL (MULTAQ Take by mouth 0 ORAL) 2 (two) times daily. Active APIXABAN (ELIQUIS ORAL) Take by mouth 0 2 (two) times daily. Active febuxostat 40 mg tablet Take 40 mg by 0 mouth daily. Active furosemide (LASIX) 20 MG Take 20 mg by 0 tablet mouth 2 (two) times daily. Active TRAMADOL HCL (TRAMADOL Take by 0 ORAL) mouth. Active NIFEdipine (PROCARDIA-XL) Take 30 mg by 0 30 MG (OSM) 24 hr tablet mouth daily as needed (IF SBP > 150 mmghg). Active ursodiol (ACTIGALL) 300 Take 1 270 capsule 2 06/03/201 mg capsule capsule (300 8 mg total) by mouth 3 (three) times daily. 05/05/2018 Discontinued amLODIPine (NORVASC) 10 Take 10 mg by 0 MG tablet mouth 2 (two) times daily. 11/08/2017 Discontinued ursodiol (ACTIGALL) 300 TAKE 1 90 capsule 0 05/24/201 mg capsule CAPSULE BY 7 MOUTH THREE TIMES DAILY 11/15/2017 Discontinued ursodiol (ACTIGALL) 300 TAKE 1 90 capsule 0 11/15/201 mg capsule CAPSULE BY 8 MOUTH THREE TIMES DAILY 06/03/2018 Discontinued ursodiol (ACTIGALL) 300 TAKE 1 270 capsule 0 11/22/201 mg capsule CAPSULE BY 8 MOUTH THREE TIMES DAILY Active Problems Problem Noted Date Endometrial cancer 07/02/2018 Cancer screening 04/09/2018 Diabetes mellitus 02/04/2013 Last Assessment & Plan: The most recent hemoglobin A1c from 01/19/13 was 8.7. Her treatment regimen was recently modified to include insulin and is presently undergoing dose adjustments. Her non-compliance with diet and weight management and more recently the use of systemic steroids have made adequate control more difficult. 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 Hyperlipidemia 02/04/2013 Last Assessment & Plan: Treated [...] both viruses - vaccine recommendations will follow. Resolved Problems Problem Noted Date Resolved Date Hyperkalemia 04/15/2017 07/02/2018 Encounters Care Team Description Date Type Specialty Daniela Cortes RN 06/03/2018 Orders Only Hepatology Mateo Phoenix MD 06/01/2018 Refill Hepatology Elvin Lopez NP US results 05/14/2018 Telephone Hepatology Mateo Phoenix MD Chung, Jamie Victoria, NP Fatty liver (Primary Dx); Hyperlipidemia, unspecified hyperlipidemia type; Abnormal liver function test; Class 2 obesity due to excess calories without serious comorbidity with body mass index (BMI) of 39.0 to 39.9 in adult; Immunity status testing; Endometrial cancer 05/05/2018 Office Visit Hepatology Mateo Phoenix MD Fatty liver 05/05/2018 Hospital Radiology Encounter Elvin Lopez NP US results 05/05/2018 Telephone HepatMateo Prabhakar MD 05/02/2018 Outside Orders Radiology Daniela Cortes RN Fatty liver (Primary Dx); Abnormal liver function test; Cancer screening 04/09/2018 Orders Only HepatMateo Prabhakar MD 03/06/2018 Refill HepatMateo Prabhakar MD 11/15/2017 Refill Hepatology Mateo Phoenix MD 11/08/2017 Refill Hepatology after 09/15/2017 Family History Medical History Relation Name Comments Heart disease Father Cancer Mother leukemia Cancer Sister Unremarkable Sister Relation Name Status Comments Father Mother Sister Sister Alive Social History Date Tobacco Use Types Packs/Day Years Used Never Smoker Smokeless Tobacco: Never Used Alcohol Use Drinks/Week oz/Week Comments No social, wine, 1 glass Sex Assigned at Date Recorded Not on file Industry Job Start Date Occupation Not on file Not on file Not on file Travel End Travel History Travel Start No recent travel history available. Last Filed Vital Signs Time Taken Vital Sign Reading 05/05/2018 11:07 AM CDT Blood Pressure 171/74 05/05/2018 11:07 AM CDT Pulse 75 05/05/2018 11:07 AM CDT Temperature 36.6 C (97.8 F) 05/05/2018 11:07 AM CDT Respiratory Rate 16 05/05/2018 11:07 AM CDT Oxygen Saturation 95% - Inhaled Oxygen - Concentration 05/05/2018 11:07 AM CDT Weight 97.3 kg (214 lb 8 oz) 05/05/2018 11:07 AM CDT Height 157.5 cm (5' 2") 05/05/2018 11:07 AM CDT Body Mass Index 39.23 Plan of Treatment Care Team Description Date Type Specialty Anai Hameed MD [facility] [address] [place] [address] 05/07/2019 Appointment Radiology Mateo Phoenix MD [address] [facility] [address] [place] [address] Resource, [facility] 05/07/2019 Office Visit Hepatology Health Maintenance Due Date Last Done Comments INFLUENZA VACCINE 04/21/2018 Procedures Comments Procedure Name Priority Date/Time Associated Diagnosis US ABDOMEN COMPLETE Routine 05/05/2018 Fatty liver 10:09 AM CDT GAMMA GLUTAMYL Routine 04/28/2018 Fatty liver TRANSFERASE (GGT) 9:59 AM CDT ALPHA FETOPROTEIN (AFP), Routine 04/28/2018 Cancer screening TUMOR MARKER 9:59 AM CDT PROTHROMBIN TIME/INR Routine 04/28/2018 Fatty liver 9:59 AM CDT CBC W/PLT COUNT & AUTO Routine 04/28/2018 Fatty liver DIFFERENTIAL 9:59 AM CDT HEPATIC FUNCTION PANEL Routine 04/28/2018 Fatty liver 9:59 AM CDT BASIC METABOLIC PANEL (7) Routine 04/28/2018 Fatty liver 9:59 AM CDT after 09/15/2017 Results * US abdomen complete (05/05/2018 10:09 AM CDT) Narrative Performed At FINAL REPORT [facility] Ultrasound of the Abdomen, 05/05/2018. Clinical History:Fatty liver. Comparison: 04/15/2017. Discussion: Sonographic evaluation of the abdomen is performed. Liver: 14.9 cm in length at the right midclavicular line, normal in size.Normal echogenicity.Homogeneous echotexture.No mass.Main portal vein diameter 1.1 cm. Biliary tree:Common duct 4 mm.No biliary dilatation. Gallbladder:No gallstones.No wall thickening.No pericholecystic fluid.Absent sonographic Molina sign. Pancreas: Obscured by bowel gas. Ascites:None. Spleen:8.1 cm in length, normal in size. Kidneys: Right kidney 9.7 cm in length, normal in size, with cortical thickness of 1.2 cm.Left kidney 9.3 cm in length, normal in size, with cortical thickness of 1.5 cm.Normal cortical echogenicity.No worrisome mass. Multiple anechoic cysts are present bilaterally, the largest measuring 6.7 cm in the lower pole right kidney.No shadowing calculus.No hydronephrosis. IVC/Aorta:Segments partially seen.Unremarkable. Impression: 1. Normal appearance of the liver. 2. Renal cysts. Signed: Alex Pacheco MD Report Verified Date/Time:05/05/2018 17:34:11 Reading Location: [address] Radiology Reading Room Procedure Note Interface, External Ris In - 05/05/2018 5:36 PM CDT FINAL REPORT Ultrasound of the Abdomen, 05/05/2018. Clinical History: Fatty liver. Comparison: 04/15/2017. Discussion: Sonographic evaluation of the abdomen is performed. Liver: 14.9 cm in length at the right midclavicular line, normal in size. Normal echogenicity. Homogeneous echotexture. No mass. Main portal vein diameter 1.1 cm. Biliary tree: Common duct 4 mm. No biliary dilatation. Gallbladder: No gallstones. No wall thickening. No pericholecystic fluid. Absent sonographic Molina sign. Pancreas: Obscured by bowel gas. Ascites: None. Spleen: 8.1 cm in length, normal in size. Kidneys: Right kidney 9.7 cm in length, normal in size, with cortical thickness of 1.2 cm. Left kidney 9.3 cm in length, normal in size, with cortical thickness of 1.5 cm. Normal cortical echogenicity. No worrisome mass. Multiple anechoic cysts are present bilaterally, the largest measuring 6.7 cm in the lower pole right kidney. No shadowing calculus. No hydronephrosis. IVC/Aorta: Segments partially seen. Unremarkable. Impression: 1. Normal appearance of the liver. 2. Renal cysts. Signed: Alex Pacheco MD Report Verified Date/Time: 05/05/2018 17:34:11 Reading Location: [address] Radiology Reading Room Performing Organization Address City/State/[facility] [place] Phone Number [facility] * Alpha fetoprotein (AFP), tumor marker (04/28/2018 9:59 AM CDT) Alpha-Fetoprotein 2.0 ng/mL [facility] Comment: Reference Range: <6.1 The use of AFP as a tumor marker in females is not recommended. This test was performed using the [employer] [place] chemiluminescent method. Values obtained from different assay methods cannot be used interchangeably. AFP levels, regardless of value, should not be interpreted as absolute evidence of the presence or absence of disease. Specimen Blood Narrative Performed At FASTING:YES [facility] FASTING: YES Resulting Agency Comment Performing Organization Information: Site ID: [email or web address] Name: [email or web address] Address: [address] [place] [address] Director: Dr. Neri Cisse Performing Organization Address [facility] [place]/[facility] [place] Phone Number [facility] [address] [place] [address] [facility] * Pro-time/INR (04/28/2018 9:59 AM CDT) INR 1.0 [facility] Comment: Reference Range 0.9-1.1 Moderate-intensity Warfarin Therapy 2.0-3.0 Higher-intensity Warfarin Therapy 3.0-4.0 PT 10.5 9.0 - 11.5 sec [facility] Comment: For more information on this test, go to: http://education.[employer].com/faq/FFP518 Specimen Blood Narrative Performed At FASTING:YES [facility] FASTING: YES Resulting Agency Comment Performing Organization Information: Site ID: [id number] Name: [email or web address] Address: [address] [place] [address] Director: Temitope Comer Performing Organization Address [facility] [place]/[facility] [place] Phone Number [facility] [address] [place] [address] [facility] * CBC with platelet count + automated diff (04/28/2018 9:59 AM CDT) WBC 7.2 3.8 - 10.8 Thousand/uL [facility] RBC 4.31 3.80 - 5.10 Million/uL [facility] Hemoglobin 13.2 11.7 - 15.5 g/dL [facility] Hematocrit 38.9 35.0 - 45.0 % [facility] MCV 90.3 80.0 - 100.0 fL [facility] MCH 30.6 27.0 - 33.0 pg [facility] MCHC 33.9 32.0 - 36.0 g/dL [facility] RDW 13.0 11.0 - 15.0 % [facility] Platelets 269 140 - 400 Thousand/uL [facility] MPV 10.9 7.5 - 12.5 fL [facility] # Neutros 4,435 1,500 - 7,800 cells/uL [facility] # Lymphs 2,030 850 - 3,900 cells/uL [facility] # Monos 540 200 - 950 cells/uL [facility] # Eos 144 15 - 500 cells/uL [facility] # Baso 50 0 - 200 cells/uL [facility] % Neutros 61.6 % [facility] % Lymphs 28.2 % [facility] % Monos 7.5 % [facility] % Eos 2.0 % [facility] % Baso 0.7 % [facility] Specimen Blood Narrative Performed At FASTING:YES [facility] FASTING: YES Resulting Agency Comment Performing Organization Information: Site ID: [id number] Name: [email or web address] Address: [address] [place] [phone] Director: Temitope Comer Performing Organization Address City/[facility] [place] Phone Number [facility] [address] [place] [address] [facility] * Gamma Glutamyl Transferase (GGT) (04/28/2018 9:59 AM CDT) GGT 54 3 - 65 U/L [facility] Specimen Blood Narrative Performed At FASTING:YES [facility] FASTING: YES Resulting Agency Comment Performing Organization Information: Site ID: [id number] Name: [email or web address] Address: [address] [place] [phone] Director: Temitope Comer Performing Organization Address [facility] [place] Phone Number [facility] [address] [place] [address] [facility] * Hepatic function panel (04/28/2018 9:59 AM CDT) Protein, Total, Serum 6.1 6.1 - 8.1 g/dL [facility] Albumin 3.5 (L) 3.6 - 5.1 g/dL [facility] GLOBULIN (QUEST) 2.6 1.9 - 3.7 g/dL (calc) [facility] Albumin Globulin Ratio 1.3 1.0 - 2.5 (calc) [facility] Bilirubin, Total 0.5 0.2 - 1.2 mg/dL [facility] Bilirubin, Direct 0.1 < OR=0.2 mg/dL [facility] Bilirubin, Indirect 0.4 0.2 - 1.2 mg/dL (calc) [facility] Alkaline Phosphatase, S 116 33 - 130 U/L [facility] AST (SGOT) 21 10 - 35 U/L [facility] ALT (SGPT) 14 6 - 29 U/L [facility] Specimen Blood Narrative Performed At FASTING:YES [facility] FASTING: YES Resulting Agency Comment Performing Organization Information: Site ID: [email or web address] Name: [email or web address] Address: [address] [place] [phone] Director: Temitope Comer Performing Organization Address [facility] [place] Phone Number [facility] [address] [place] [address] [facility] * Basic Metabolic Panel (04/28/2018 9:59 AM CDT) Glucose 160 (H) 65 - 99 mg/dL [facility] Comment: Fasting reference interval For someone without known diabetes, a glucose value >125 mg/dL indicates that they may have diabetes and this should be confirmed with a follow-up test. BUN 40 (H) 7 - 25 mg/dL [facility] Creatinine 1.95 (H) 0.60 - 0.88 mg/dL [facility] Comment: For patients >49 years of age, the reference limit for Creatinine is approximately 13% higher for people identified as -[place]. eGFR If NonAfricn Am 23 (L) > OR=60 mL/min/1.73m2 [facility] eGFR If Africn Am 27 (L) > OR=60 mL/min/1.73m2 [facility] BUN/Creatinine Ratio 21 6 - 22 (calc) [facility] Sodium 142 135 - 146 mmol/L [facility] Potassium, Serum 4.5 3.5 - 5.3 mmol/L [facility] Chloride 105 98 - 110 mmol/L [facility] Carbon Dioxide, Total 27 20 - 32 mmol/L [facility] Calcium, Serum 9.8 8.6 - 10.4 mg/dL [facility] Specimen Blood Narrative Performed At FASTING:YES [facility] FASTING: YES Resulting Agency Comment Performing Organization Information: Site ID: [email or web address] Name: [email or web address] Address: [address] [place] [phone] Director: Temitope Comer Performing Organization Address City/State/[facility] [place] Phone Number [facility] [address] [place] [address] [facility] after 09/15/2017 Insurance Payer Benefit Subscriber ID Type Phone Address Plan / Group MEDICARE MEDICARE A xxxxxxxxxxx Medicare B OTHER-COMMERCIAL GENERIC xxxxxxxxxxxx COMMERCIAL
--- OUTSIDE RECORDS SUMMARY | 2018-09-16 11:40 | XMS REPORT | Clinical Summary ---
Author Author Al [facility] Organization [facility] Address Unknown Phone Unavailable Care Team Providers Care Roving Technician Name Role Phone Asked, No Pcp PCP Unavailable Allergies No Known Allergies Medications End Date Status Medication Sig Dispensed Refills Start Date Active amLODIPine (NORVASC) 10 Take 10 mg by 0 MG tablet mouth daily. Active atorvastatin (LIPITOR) 10 Take 10 mg by 0 MG tablet mouth daily. Active insulin lispro (HumaLOG) Inject under 0 100 unit/mL injection the skin 3 (three) times a day before meals. Active insulin detemir (LEVEMIR) Inject 23 0 100 unit/mL injection Units under the skin nightly. Active montelukast (SINGULAIR) Take 10 mg by 0 10 mg tablet mouth nightly. Active ursodiol (ACTIGALL) 300 Take 300 mg 0 mg capsule by mouth 2 (two) times a day. Active pantoprazole (PROTONIX) Take 40 mg by 0 40 MG EC tablet mouth daily. Active cholecalciferol, vitamin Take 2,000 0 D3, (VITAMIN D3) 2,000 Units by unit capsule capsule mouth daily. Active conjugated estrogens Insert 0.5 g 0 (PREMARIN) vaginal cream into the vagina once a week. Active calcium carbonate-vitamin Take 1 tablet 0 D3 (CALCIUM 600 + D,3,) by mouth 600 mg(1,500mg) -200 unit daily. per tablet Active GLUCOSAMINE HCL/CHONDR ZAMORANO Take 1 0 A NA (OSTEO BI-FLEX ORAL) capsule by mouth daily. Active azelastine-fluticasone 1 spray into 0 (DYMISTA) 137-50 each nostril mcg/spray nightly. spray,non-aerosol Active Problems Problem Noted Date Dyspnea 04/10/2016 Social History Date Tobacco Use Types Packs/Day Years Used Never Smoker Alcohol Use Drinks/Week oz/Week Comments No Sex Assigned at Date Recorded Not on file Industry Job Start Date Occupation Not on file Not on file Not on file Travel End Travel History Travel Start No recent travel history available. Last Filed Vital Signs Not on file Plan of Treatment Health Maintenance Due Date Last Done Comments SHINGLES VACCINES (#1) 1983 65+ PNEUMOCOCCAL VACCINE 1998 (1 of 2 - PCV13) PNEUMOCOCCAL 1998 POLYSACCHARIDE VACCINE AGE 65 AND OVER INFLUENZA VACCINE 02/19/2018 Results Not on fileafter 09/15/2017 Insurance Payer Benefit Subscriber ID Type Phone Address Plan / Group MEDICARE MEDICARE xxxxxxxxxx Medicare [place], [place] PART A AND B [employer] F[employer] INS STATE FARM xxxxxxxxxxxx Commercial INS Advance Directives Patient has advance care planning documents on file. For more information, jose l parkinson contact: Al Veliz [address] [place] [address]
--- OUTSIDE RECORDS SUMMARY | 2018-09-16 11:45 | XMS REPORT | Continuity of Care Document ---
Author Author Balbina hahn Organization Interface Address Unknown Phone Unavailable Problems Problem Status Onset Date Classification Date Reported Comments Source LABS Active 04/16/2016 [facility] UROSEPSIS, CHRONIC KIDNEY DISEASE Active 04/07/2016 [facility] FEVER Active 04/07/2016 [facility] Discharge Diagnosis: Hyperkalemia 04/06/2016 04/09/2016 [facility] ABN LABS Active 04/06/2016 [facility] Discharge Diagnosis: Acute UTI 10/01/2015 10/04/2015 [facility] Discharge Diagnosis: Generalized weakness 10/01/2015 10/04/2015 [facility] WEAKNESS Active 10/01/2015 [facility] BLOOD IN URINE Active 09/22/2015 [facility] EYE REDNESS/EYE PAIN Active 05/02/2015 [facility] S.O.B Active 02/26/2015 [facility] AECOPD, BRONCHITIS Active 02/26/2015 [facility] Discharge Diagnosis: Acute bronchitis 10/10/2014 10/12/2014 [facility] CONGESTION Active 10/10/2014 [facility] Discharge Diagnosis: Cellulitis 08/22/2014 08/24/2014 [facility] LEG SWELLING Active 08/22/2014 [facility] Discharge Diagnosis: Acute Bronchitis 05/16/2014 05/19/2014 [facility] CONGESTED Active 05/16/2014 [facility] Upper respiratory infection<sup>6</sup> Resolved 01/19/2013 Problem 01/12/2017 Data migrated from [employer] on 02/04/15. [facility] [place] Upper respiratory infection<sup>6</sup> Resolved 01/19/2013 Problem 09/01/2018 Data migrated from [employer] on 02/04/15. [facility] Upper respiratory infection<sup>6</sup> Resolved 01/19/2013 Problem 05/13/2016 Data migrated from [employer] on 02/04/15. [facility], SAR[facility] [place] PNEUMONIA,DYSPNEA Active 01/07/2013 [facility] SHORTNESS OF BREATH Active 09/02/2012 [facility] REACTIVE AIRWAY, WHEEZING, PNEUMONIA Active 09/02/2012 [facility] RE-VISIT Active 06/23/2012 [facility] FEVER,UTI Active 06/23/2012 [facility] SICK Active 06/22/2012 [facility] Urinary tract infectious disease<sup>7</sup> Resolved 04/17/2012 Problem 01/12/2017 Data migrated from [employer] on 02/04/15. [facility], [facility] [place] Urinary tract infectious disease<sup>7</sup> Resolved 04/17/2012 Problem 09/01/2018 Data migrated from [employer] on 02/04/15. [facility], [facility] Urinary tract infectious disease<sup>7</sup> Resolved 04/17/2012 Problem 05/13/2016 Data migrated from [employer] on 02/04/15. [facility] [place] Vitamin D deficiency<sup>8</sup> Active 04/16/2011 Problem 01/12/2017 Data migrated from [employer] on 12/20/14. [facility] [place] Vitamin D deficiency<sup>8</sup> Active 04/16/2011 Problem 09/01/2018 Data migrated from [employer] on 12/20/14. [facility] Vitamin D deficiency<sup>8</sup> Active 04/16/2011 Problem 05/13/2016 Data migrated from [employer] on 12/20/14. 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 [facility] [place] Hyperlipidemia<sup>2</sup> Active 08/03/2010 Problem 01/12/2017 Data migrated from [employer] on 12/20/14. [facility] [place] Obesity<sup>3</sup> Active 08/03/2010 Problem 01/12/2017 Data migrated from [employer] on 12/20/14. [facility] [place] Osteoporosis<sup>4</sup> Active 08/03/2010 Problem 01/12/2017 Data migrated from [employer] on 12/20/14. 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 [facility], [facility] Hyperlipidemia<sup>2</sup> Active 08/03/2010 Problem 09/01/2018 Data migrated from [employer] on 12/20/14. [facility], [facility] Obesity<sup>3</sup> Active 08/03/2010 Problem 09/01/2018 Data migrated from [employer] on 12/20/14. [facility], [facility] Osteoporosis<sup>4</sup> Active 08/03/2010 Problem 09/01/2018 Data migrated from [employer] on 12/20/14. 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 [facility], [facility] [place] Hyperlipidemia<sup>2</sup> Active 08/03/2010 Problem 05/13/2016 Data migrated from [employer] on 12/20/14. [facility], [facility] [place] Obesity<sup>3</sup> Active 08/03/2010 Problem 05/13/2016 Data migrated from [employer] on 12/20/14. [facility], [facility] [place] Osteoporosis<sup>4</sup> Active 08/03/2010 Problem 05/13/2016 Data migrated from [employer] on 12/20/14. [facility], [facility] [place] Diabetes mellitus Active Problem 05/05/2015 [facility] Hypertension Active Problem 05/05/2015 [facility] Diabetes mellitus Active Problem 01/11/2013 [facility] Hypertension Active Problem 01/11/2013 [facility] Arthritis Resolved Problem 01/11/2013 [facility] Pneumonia Resolved Problem 01/11/2013 [facility] Arthritis Resolved Problem 01/12/2017 [facility], [facility] [place] Chicken pox Resolved Problem 01/12/2017 [facility], [facility] [place] Obesity Active Problem 01/12/2017 [facility], [facility] [place] Pneumonia Resolved Problem 01/12/2017 [facility], [facility] [place] PUD - Peptic ulcer disease Resolved Problem 01/12/2017 [facility], [facility] [place] Steatosis of liver<sup>5</sup> Active Problem 01/12/2017 Data migrated from [employer] on 12/20/14. [facility] [place] Arthritis Resolved Problem 09/01/2018 [facility], [facility] Chicken pox Resolved Problem 09/01/2018 [facility], [facility] COPD Resolved Problem 09/01/2018 [facility] [place] Low serum vitamin D Active Problem 09/01/2018 [facility] [place] Diabetes Resolved Problem 09/01/2018 [facility] [place] History of frequent urinary tract infections Active Problem 09/01/2018 [facility] Hypernatremia Active Problem 09/01/2018 [facility] Mixed hyperlipidemia Active Problem 09/01/2018 [facility] [place], [facility] Morbid obesity Active Problem 09/01/2018 [facility] [place], [facility] Obesity Active Problem 02/04/2018 [facility], [facility] Pneumonia Resolved Problem 09/01/2018 [facility], [facility] PUD - Peptic ulcer disease Resolved Problem 09/01/2018 [facility], [facility] Steatosis of liver<sup>5</sup> Active Problem 09/01/2018 Data migrated from [employer] on 12/20/14. [facility] Diabetes mellitus type 2 in obese Active Problem 09/01/2018 [facility] [place], [facility] Arthritis Resolved Problem 05/13/2016 [facility], [facility] [place] Chicken pox Resolved Problem 05/13/2016 [facility], [facility] [place] Obesity Active Problem 05/13/2016 [facility], [facility] [place] Pneumonia Resolved Problem 05/13/2016 [facility], [facility] [place] PUD - Peptic ulcer disease Resolved Problem 05/13/2016 [facility], [facility] [place] Steatosis of liver<sup>5</sup> Active Problem 05/13/2016 Data migrated from [employer] on 12/20/14. [facility], [facility] [place] Subclinical hypothyroidism Active Problem 09/01/2018 [facility] FEVER NOS Active [facility] ASTHMA NOS Active [facility] PNEUMONIA, ORGANISM NOS Active [facility] CHR AIRWAY OBSTRUCT NEC Active [facility] BRONCHITIS NOS Active [facility] ANEMIA, UNSPECIFIED Active [facility] SEPSIS DUE TO UNSPECIFIED STAPHYLOCOCCUS Active [facility] Medications Medication Details Route Status Patient Instructions Ordering Provider Order Date Source atorvastatin 10 mg oral tablet =1 tab, PO, Daily, # 90 tab, Refill(s) 1, [facility]: [facility] [id number] Active 08/29/2018 [facility] pantoprazole 40 mg oral enteric coated tablet See Instructions, # 90 tab, TAKE 1 TABLET BY MOUTH DAILY, Pharmacy: [facility] [id number] Active 12/18/2017 [facility] atorvastatin 10 mg oral tablet See Instructions, # 90 tab, TAKE 1 TABLET BY MOUTH EVERY DAY, Pharmacy: [facility] [id number] Active 12/09/2017 [facility] pantoprazole 40 mg oral enteric coated tablet See Instructions, # 90 tab, TAKE 1 TABLET BY MOUTH DAILY, Pharmacy: [facility] [id number] Active 11/12/2017 [facility] 3 ML Insulin Lispro 100 UNT/ML Pen Injector [Humalog] See Instructions, USE DIRECTED, # 45 mL, 5 Refill(s), [facility] [id number] No Longer Active 10/28/2017 [facility] 3 ML Insulin Lispro 100 UNT/ML Pen Injector [Humalog] See Instructions, USE DIRECTED, # 45 mL, 5 Refill(s), [facility] [id number] No Longer Active 10/28/2017 [facility] atorvastatin 10 mg oral tablet See Instructions, # 90 tab, TAKE 1 TABLET BY MOUTH EVERY DAY, Pharmacy: [facility] [id number] No Longer Active 09/09/2017 [facility] amoxicillin 500 mg oral tablet See Instructions, 1 tab PO q 8 hours, 0 Refill(s) Active 08/05/2017 [facility] 24 HR Nifedipine 30 MG Extended Release Tablet [Procardia] 30 mg=1 tab, PO, Daily, # 30 tab, 0 Refill(s) Active 08/05/2017 [facility] Furosemide 40 MG Oral Tablet 40 mg=1 tab, PO, Daily, # 30 tab, 0 Refill(s) Active 08/05/2017 [facility] BD Ultra-Fine Mini Insulin Pen Viola 31G 5mm=3/16 inch 1 ea, MISC, TID, Use as directed, # 900 ea, 3 Refill(s) Active 07/26/2017 [facility] azelastine nasal 0.1% (137 mcg/inh) spray 1 inhalation, Route: NASAL, Drug Form: SPRY, Dosing Weight 99.091, kg, Bedtime, Start date: 04/09/16 21:00:00 CDT, Duration: 30 day, Stop date: 05/08/16 21:00:00 CDTNotes: (azelastine 137 microgram/inh 34 ml nasal SPR) Non-formulary drug. Same As: Astelin) Inactive 04/10/2016 [facility] Docusate Sodium 50 MG / sennosides, PRISON 8.6 MG Oral Tablet 1 tab, PO, BID, X 30 day, # 60 tab, 0 Refill(s) Active 04/09/2016 [facility] Ciprofloxacin 500 MG Oral Tablet [Cipro] 500 mg=1 tab, PO, Q12H, X 12 day, # 24 tab, 0 Refill(s) Active 04/09/2016 [facility] Albuterol 0.83 MG/ML Inhalant Solution 2.49 mg, 3 mL, Route: INHALATION, Drug form: SOLN, RQ4H, Dosing Weight 99.091, kg, PRN Wheezing, Start date: 04/08/16 21:30:00 CDT, Duration: 30 day, Stop date: 05/08/16 21:29:00 CDTNotes: SEE RT DOCUMENTATION (Same as: Proventil) No Longer Active 04/09/2016 [facility] Albuterol 0.83 MG/ML Inhalant Solution 1.245 mg, 1.5 mL, Route: PO, Drug form: SOLN, RQ4H, Dosing Weight 99.091, kg, PRN Wheezing, Start date: 04/08/16 19:01:00 CDT, Duration: 30 day, Stop date: 05/08/16 19:00:00 CDTNotes: SEE RT DOCUMENTATION (Same as: Proventil) Inactive 04/09/2016 [facility] Miralax 17 gm, 1 pkt, Route: PO, Drug form: PWDR, ONCE, Dosing Weight 99.091, kg, Start date: 04/08/16 9:18:00 CDT, Duration: 1 doses or times, Stop date: 04/08/16 9:18:00 CDTNotes: Dissolve in 8 oz of water or juice. (Same as: Miralax) Inactive 04/08/2016 [facility] Docusate Sodium 50 MG / sennosides, PRISON 8.6 MG Oral Tablet 1 tab, Route: PO, Drug Form: TAB, Dosing Weight 99.091, kg, BID, Start date: 04/08/16 9:17:00 CDT, Duration: 30 day, Stop date: 05/08/16 9:00:00 CDTNotes: (Same as Ekta-S) Equiv. to Anamaria-Colace. No Longer Active 04/08/2016 [facility] insulin detemir 35 unit, 0.35 mL, Route: SUB-Q, Drug form: INJ, Daily, Dosing Weight 99.091, kg, Start date: 04/08/16 9:00:00 CDT, Duration: 30 day, Stop date: 05/07/16 9:00:00 CDTNotes: Same as Levemir Do not hold insulin without contacting prescriber WASTE: F/P - Black; E - Municipal Trash Bin "single patient use only" No Longer Active 04/08/2016 [facility] sodium chloride 0.45% 1000 ml INJ 1,000 mL 1,000 mL, Rate: 125 ml/hr, Infuse over: 8 hr, Route: IV, Dosing Weight 99.091 kg, Total Volume: 1,000, Start date: 04/08/16 8:01:00 CDT, Duration: 24 hr, Stop date: 04/09/16 8:06:00 CDT No Longer Active 04/08/2016 [facility] Sodium Chloride 0.154 MEQ/ML Injectable Solution 2,000 mL, 1,000 ml/hr, Infuse Over: 2 hr, Route: IV, 2,000, Drug form: INJ, ONCE, Priority: STAT, Dosing Weight 99.091 kg, Start date: 04/08/16 8:01:00 CDT, Stop date: 04/08/16 8:01:00 CDT Inactive 04/08/2016 [facility] insulin detemir 35 unit, 0.35 mL, Route: SUB-Q, Drug form: INJ, Bedtime, Dosing Weight 99.091, kg, Start date: 04/07/16 21:00:00 CDT, Duration: 30 day, Stop date: 05/06/16 21:00:00 CDTNotes: Same as Levemir Do not hold insulin without contacting prescriber WASTE: F/P - Black; E - Municipal Trash Bin "single patient use only" No Longer Active 04/08/2016 [facility] atorvastatin 10 mg, 1 tab, Route: PO, Drug form: TAB, Bedtime, Dosing Weight 99.091, kg, Start date: 04/07/16 21:00:00 CDT, Duration: 30 day, Stop date: 05/06/16 21:00:00 CDTNotes: (Same As: Lipitor) No Longer Active 04/08/2016 [facility] Singulair 4 mg, 1 tab, Route: PO, Drug form: CHEWTAB, QPM, Dosing Weight 99.091, kg, Start date: 04/07/16 17:00:00 CDT, Duration: 30 day, Stop date: 05/06/16 17:00:00 CDTNotes: (Same as:Singulair) No Longer Active 04/07/2016 [facility] pantoprazole 40 mg, 1 tab, Route: PO, Drug form: ECTAB, Before Dinner, Dosing Weight 99.091, kg, Start date: 04/07/16 16:30:00 CDT, Duration: 30 day, Stop date: 05/06/16 16:30:00 CDTNotes: Tablet should not be ch ewed or crushed. (Same as: Protonix) No Longer Active 04/07/2016 [facility] heparin 5,000 unit, 1 mL, Route: SUB-Q, Drug form: INJ, Q8H, Dosing Weight 99.091, kg, Start date: 04/07/16 16:00:00 CDT, Duration: 30 day, Stop date: 05/07/16 8:00:00 CDTNotes: porcine heparin No Longer Active 04/07/2016 [facility] meropenem 1,000 mg, Route: IVPB, Drug form: PDR/INJ, Q8H, Dosing Weight 99.091, kg, CrCl >50, Extended infusion, infuse over 3 hours, Start date: 04/07/16 16:00:00 CDT, Duration: 30 day, Stop date: 05/07/16 8:00:00 CDT Inactive 04/07/2016 [facility] Insulin, Aspart, Human 10 unit, 0.1 mL, Route: SUB-Q, Drug form: SOLN, TID-Before Meals, Dosing Weight 99.091, kg, PRN Blood Glucose Results, Start date: 04/07/16 12:44:00 CDT, Duration: 30 day, Stop date: 05/07/16 12:43:00 CDTNotes: Roll in palms of hands gently; Do not shake vigorously. (Same as: NovoLOG) "single patient use only" WASTE: F/P - Black; E - Municipal Trash Bin Stable for 28 days at room temperature. Expires in days from Date No Longer Active 04/07/2016 [facility] Glucagon 1 mg, Route: IM, Drug form: PDR/INJ, PRN, Dosing Weight 99.091, kg, PRN Blood Glucose Results, Start date: 04/07/16 12:44:00 CDT, Duration: 30 day, Stop date: 05/07/16 12:43:00 CDT No Longer Active 04/07/2016 [facility] Dextrose 50% Syringe 25 gm, 50 mL, Route: IVP, Drug Form: INJ, Dosing Weight 99.091, kg, PRN, PRN Blood Glucose Results, Start date: 04/07/16 12:44:00 CDT, Duration: 30 day, Stop date: 05/07/16 12:43:00 CDT No Longer Active 04/07/2016 [facility] Aspirin 81 MG Chewable Tablet 81 mg, 1 tab, Route: PO, Drug form: CHEWTAB, Daily, Dosing Weight 99.091, kg, Start date: 04/07/16 12:00:00 CDT, Duration: 30 day, Stop date: 05/07/16 9:00:00 CDTNotes: Take with food. No Longer Active 04/07/2016 [facility] meropenem 500 mg, Route: IVPB, ABXQ8H, Dosing Weight 99.091, kg, CrCL=26 -49 ml/min, Extended infusion, infuse over 3 hours, Start date: 04/07/16 12:00:00 CDT, Duration: 30 day, Stop date: 05/07/16 4:00:00 CDTNotes: Same as Merrem MEDICATION WASTE Product Size: 500 mg Product Wasted: ___ mg No Longer Active 04/07/2016 [facility] Ventolin HFA 90 mcg/inh inhalation aerosol with adapter 2 puff, Route: INHALER, Drug Form: AERO/A, Dosing Weight 99.091, kg, Q4H, PRN as needed for wheezing, Start date: 04/07/16 11:27:00 CDT, Duration: 30 day, Stop date: 05/07/16 11:26:00 CDTNotes: Albuterol 90 microgram/inh 8gm HFA WASTE: Aerosol - Return to Pharmacy Same as: [place], Proventil No Longer Active 04/07/2016 [facility] Acetaminophen 325 mg, 1 tab, Route: PO, Drug form: TAB, Q4H, Dosing Weight 100, kg, PRN Pain Score 4-6, Start date: 04/07/16 9:14:00 CDT, Duration: 30 day, Stop date: 05/07/16 9:13:00 CDTNotes: Do not exceed 4 gm/ day. (Same as: Tylenol) No Longer Active 04/07/2016 [facility] Docusate 100 mg, 1 cap, Route: PO, Drug form: CAP, BID, Dosing Weight 100, kg, PRN Constipation, Start date: 04/07/16 9:14:00 CDT, Duration: 30 day, Stop date: 05/07/16 9:13:00 CDTNotes: (Same as: Colace) (Do Not Crush) No Longer Active 04/07/2016 [facility] Ondansetron 4 mg, 2 mL, Route: IVP, Drug form: INJ, Q6H, Dosing Weight 100, kg, PRN Nausea & Vomiting, Start date: 04/07/16 9:14:00 CDT, Duration: 30 day, Stop date: 05/07/16 9:13:00 CDTNotes: (Same as: Zofran) MEDICATION WASTE Product Size: 4 mg Product Wasted: ___ mg No Longer Active 04/07/2016 [facility] Acetaminophen 300 MG / Codeine Phosphate 30 MG Oral Tablet [Tylenol with Codeine #3] 1 tab, Route: PO, Drug Form: TAB, Dosing Weight 100, kg, ONCE, STAT, Start date: 04/07/16 7:06:00 CDT, Stop date: 04/07/16 7:06:00 CDTNotes: Do not exceed 4gm/day of acetaminophen. (Same as: Tylenol with Codeine # 3) Inactive 04/07/2016 [facility] Sodium Chloride 0.154 MEQ/ML Injectable Solution 1,000 mL, 1,000 ml/hr, Infuse Over: 1 hr, Route: IV, ONCE, Priority: STAT, Dosing Weight 100 kg, Start date: 04/07/16 6:34:00 CDT, Duration: 1 doses or times, Stop date: 04/07/16 6:34:00 CDT Inactive 04/07/2016 [facility] Saline Flush 0.9% 10 mL, Route: IVP, Drug Form: INJ, Dosing Weight 100, kg, PRN, PRN Line Flush, Start date: 04/07/16 6:34:00 CDT, Duration: 30 day, Stop date: 05/07/16 6:33:00 CDTNotes: preservative free. Inactive 04/07/2016 [facility] Ceftriaxone 1 gm, Route: IVPB, Drug form: PDR/INJ, ONCE, Dosing Weight 100, kg, Priority: STAT, Start date: 04/07/16 6:32:00 CDT, Stop date: 04/07/16 6:32:00 CDT Inactive 04/07/2016 [facility] Hydrochlorothiazide 25 MG Oral Tablet 25 mg=1 tab, PO, Daily, # 30 tab, 0 Refill(s) On Hold 04/07/2016 [facility] Zofran 4 mg, Route: IVP, Drug form: INJ, ONCE, Dosing Weight 99.091, kg, Priority: STAT, Start date: 04/06/16 18:39:00 CDT, Stop date: 04/06/16 18:39:00 CDT Inactive 04/06/2016 [facility] Sodium Chloride 0.154 MEQ/ML Injectable Solution 500 mL, 1,000 ml/hr, Infuse Over: 0.5 hr, Route: IV, 500, Drug form: INJ, ONCE, Priority: STAT, Dosing Weight 99.091 kg, Start date: 04/06/16 15:11:00 CDT, Duration: 1 doses or times, Stop date: 04/06/16 15:11:00 CDT Inactive 04/06/2016 [facility] d50 syringe 12.5 gm, 25 mL, Route: IVP, Drug Form: INJ, Dosing Weight 99.091, kg, ONCE, STAT, Start date: 04/06/16 15:10:00 CDT, Stop date: 04/06/16 15:10:00 CDT, 25 ml=12.5 gm Inactive 04/06/2016 [facility] Insulin regular 5 unit, 0.05 mL, Route: IVP, Drug form: INJ, ONCE, Dosing Weight 99.091, kg, Priority: STAT, Start date: 04/06/16 15:10:00 CDT, Stop date: 04/06/16 15:10:00 CDTNotes: (Same as: Humulin R and NovoLIN R) WASTE: F/P - Black; E - DBVu Trash Bin (Do not shake) Inactive 04/06/2016 [facility] Kayexalate 30 gm, 120 mL, Route: PO, Drug form: SUSP, ONCE, Dosing Weight 99.091, kg, Priority: STAT, Start date: 04/06/16 15:09:00 CDT, Stop date: 04/06/16 15:09:00 CDTNotes: (sodium polystyrene sulfonate 15 gm/60 ml GOLDEN) Shake well before use. (Same as: Kayexalate, SPS) Inactive 04/06/2016 [facility] Saline Flush 0.9% 10 mL, Route: IVP, Drug Form: INJ, Dosing Weight 100.909, kg, PRN, PRN Line Flush, Start date: 04/06/16 13:24:00 CDT, Duration: 30 day, Stop date: 05/06/16 13:23:00 CDTNotes: (Same as: BD Posiflush) Inactive 04/06/2016 [facility] Cephalexin 500 MG Oral Capsule [Keflex] 500 mg=1 cap, PO, QID, X 10 day, # 40 cap, 0 Refill(s), Pharmacy: [facility] [id number] Active 10/01/2015 [facility] Albuterol 0.83 MG/ML Inhalant Solution 2.49 mg, 3 mL, Route: NEB, Drug form: SOLN, ONCE, Dosing Weight 97.273, kg, Priority: STAT, Start date: 10/01/15 11:28:00, Stop date: 10/01/15 11:28:00Notes: SEE RT DOCUMENTATION (Same as: Proventil) Inactive 10/01/2015 [facility] Saline Flush 0.9% 10 mL, Route: IVP, Drug Form: INJ, Dosing Weight 97.273, kg, PRN, PRN Line Flush, Start date: 10/01/15 8:20:00, Duration: 30 day, Stop date: 10/31/15 9:19:00Notes: (Same as: BD Posiflush) Inactive 10/01/2015 [facility] Benicar 40 mg, 2 tab, Route: PO, Drug form: TAB, ONCE, Dosing Weight 97.273, kg, Start date: 09/22/15 12:56:00, Stop date: 09/22/15 12:56:00 Inactive 09/22/2015 [facility] Ciprofloxacin 250 MG Oral Tablet [Cipro] 250 mg=1 tab, PO, Q12H, X 7 day, # 14 tab, 0 Refill(s), [facility] [id number] Active 09/22/2015 [facility] Ondansetron 4 MG Oral Tablet [Zofran] 4 mg=1 tab, PO, BID, X 5 day, # 10 tab, 0 Refill(s), [facility] [id number] Active 09/22/2015 [facility] Ciprofloxacin 500 mg, Route: PO, ONCE, Dosing Weight 97.273, kg, Priority: STAT, Start date: 09/22/15 12:50:00, Stop date: 09/22/15 12:50:00 Inactive 09/22/2015 [facility] Sodium Chloride 0.154 MEQ/ML Injectable Solution 1,000 mL, 1,000 ml/hr, Infuse Over: 1 Hour, Route: IV, ONCE, Priority: STAT, Dosing Weight 97.273 kg, Start date: 09/22/15 8:51:00, Duration: 1 doses or times, Stop date: 09/22/15 8:51:00 Inactive 09/22/2015 [facility] Morphine 4 mg, Route: IVP, ONCE, Dosing Weight 97.273, kg, Priority: STAT, Start date: 09/22/15 8:47:00, Stop date: 09/22/15 8:47:00 Inactive 09/22/2015 [facility] Ondansetron 4 mg, Route: IVP, ONCE, Dosing Weight 97.273, kg, Priority: STAT, Start date: 09/22/15 8:47:00, Stop date: 09/22/15 8:47:00 Inactive 09/22/2015 [facility] Sodium Chloride 0.154 MEQ/ML Injectable Solution 1,000 mL, Infuse Over: 1 hr, Route: IV, ONCE, Priority: STAT, Dosing Weight 97.273 kg, Start date: 09/22/15 8:47:00, Duration: 1 doses or times, Stop date: 09/22/15 8:47:00 Inactive 09/22/2015 [facility] Saline Flush 0.9% 10 mL, Route: IVP, Drug Form: INJ, Dosing Weight 97.273, kg, PRN, PRN Line Flush, Start date: 09/22/15 8:47:00, Duration: 30 day, Stop date: 10/22/15 9:46:00Notes: (Same as: BD Posiflush) Inactive 09/22/2015 [facility] Ventolin HFA 90 mcg/inh inhalation aerosol with adapter 2 puff, INHALER, Q4H, PRN wheezing, coughing, or shortness of breath, # 8 gm, 1 Refill(s) Active 03/01/2015 [facility] {21 (Methylprednisolone 4 MG Oral Tablet [Medrol]) } Pack [Medrol Dosepak] See Instructions, PO, Take by mouth as directed on label., X 6 day, # 1 Pack, 0 Refill(s)Special Instructions: Take by mouth as directed on label. Active 03/01/2015 [facility] atorvastatin 10 mg, 1 tab, Route: PO, Drug form: TAB, QAM, Dosing Weight 94.091, kg, Start date: 02/28/15 9:00:00, Duration: 30 day, Stop date: 03/29/15 9:00:00Notes: (Same As: Lipitor) No Longer Active 02/28/2015 [facility] [facility] Aspirin 81 MG Chewable Tablet 81 mg, 1 tab, Route: PO, Drug form: CHEWTAB, Daily, Dosing Weight 94.091, kg, Start date: 02/28/15 9:00:00, Duration: 30 day, Stop date: 03/29/15 9:00:00Notes: Take with food. No Longer Active 02/28/2015 [facility] Amlodipine 10 mg, 2 tab, Route: PO, Drug form: TAB, Daily, Dosing Weight 94.091, kg, Start date: 02/28/15 9:00:00, Duration: 30 day, Stop date: 03/29/15 9:00:00Notes: (Same as: Norvasc) No Longer Active 02/28/2015 [facility] Benicar 40 mg, 2 tab, Route: PO, Drug form: TAB, Daily, Dosing Weight 94.091, kg, Start date: 02/28/15 9:00:00, Duration: 30 day, Stop date: 03/29/15 9:00:00 No Longer Active 02/28/2015 [facility] Insulin, Aspart, Human 12 unit, 0.12 mL, Route: SUB-Q, Drug form: SOLN, ONCE, Dosing Weight 94.091, kg, Start date: 02/27/15 22:01:00, Stop date: 02/27/15 22:01:00Notes: Roll in palms of hands gently; Do not shake vigorously. (Same as: NovoLOG) "single patient use only" Stable for 28 days at room temperature. Expires in days from Date Inactive 02/28/2015 [facility] Levemir FlexPen 23 unit, 0.23 mL, Route: SUB-Q, Drug form: INJ, Bedtime, Dosing Weight 94.091, kg, Start date: 02/27/15 21:00:00, Duration: 30 day, Stop date: 03/28/15 21:00:00Notes: Same as Levemir Do not hold insulin without contacting prescriber "single patient use only" No Longer Active 02/28/2015 [facility] Protonix 40 mg, 1 pkt, Route: PEG, Drug form: GRAN/REC, Before Dinner, Dosing Weight 94.091, kg, Start date: 02/27/15 16:30:00, Duration: 30 day, Stop date: 03/28/15 16:30:00Notes: Same as: Protonix Mix in 5 mL apple juice or applesauce for oral & 10mL apple juice for NG tube No Longer Active 02/27/2015 [facility] Solu-Medrol 40 mg, 1 mL, Route: IVP, Drug form: INJ, K61Mium, Dosing Weight 94.091, kg, Start date: 02/27/15 15:00:00, Duration: 30 day, Stop date: 03/29/15 3:00:00Notes: (Same as:Solu-MEDROL, A-Methapred) No Longer Active 02/27/2015 [facility] pantoprazole 40 mg, PO, Daily, # 30 tab, 0 Refill(s) Active 02/27/2015 [facility] Ursodeoxycholate 300 mg, 1 cap, Route: PO, Drug form: CAP, TID, Dosing Weight 94.091, kg, Start date: 02/27/15 13:00:00, Duration: 30 day, Stop date: 03/29/15 9:00:00Notes: (Same As: Actigall) No Longer Active 02/27/2015 [facility] Insulin, Aspart, Human 4 unit, 0.04 [...] days from Date No Longer Active 02/27/2015 [facility] Dextrose 50% Syringe 25 gm, 50 mL, Route: IVP, Drug Form: INJ, Dosing Weight 94.091, kg, PRN, PRN Blood Glucose Results, Start date: 02/27/15 12:50:00, Duration: 30 day, Stop date: 03/29/15 12:49:00 No Longer Active 02/27/2015 [facility] Glucagon 1 mg, Route: IM, Drug form: PDR/INJ, PRN, Dosing Weight 94.091, kg, PRN Blood Glucose Results, Start date: 02/27/15 12:50:00, Duration: 30 day, Stop date: 03/29/15 12:49:00 No Longer Active 02/27/2015 [facility] Ursodeoxycholate 300 mg, PO, TID, 0 Refill(s) Active 02/27/2015 [facility] Nitroglycerin 0.4 MG Sublingual Tablet 0.4 mg, 1 tab, Route: SL, Drug form: TAB, Q5Min, Dosing Weight 94.091, kg, PRN Chest Pain, Start date: 02/27/15 8:56:00, Duration: 30 day, Stop date: 03/29/15 8:55:00Notes: (Same as:Nitroquick, Nitrostat) "Do Not Crush" Sublingual tablet No Longer Active 02/27/2015 [facility] Atropine 0.5 mg, 5 mL, Route: IV, Drug form: INJ, PRN, Dosing Weight 94.091, kg, PRN Bradycardia, Start date: 02/27/15 8:56:00, Duration: 30 day, Stop date: 03/29/15 8:55:00 No Longer Active 02/27/2015 [facility] Albuterol 0.83 MG/ML Inhalant Solution 2.49 mg, 3 mL, Route: NEB, Drug form: SOLN, RQ4H, Dosing Weight 94.091, kg, Start date: 02/27/15 7:00:00, Duration: 30 day, Stop date: 03/29/15 3:00:00, Pediatric DosingSpecial Instructions: Pediatric DosingNotes: SEE RT DOCUMENTATION (Same as: Proventil) No Longer Active 02/27/2015 [facility] Albuterol 0.833 MG/ML / Ipratropium [place] 0.167 MG/ML Inhalant Solution [DuoNeb] 3 ml, Route: INHALATION, Drug Form: SOLN, Dosing Weight 94.091, kg, PRN, PRN Respiratory Protocol, Start date: 02/27/15 6:27:00, Duration: 30 day, Stop date: 03/29/15 6:26:00Notes: (Same as: Duoneb) No Longer Active 02/27/2015 [facility] Ondansetron 4 mg, 2 mL, Route: IVP, Drug form: INJ, Q6H, Dosing Weight 94.091, kg, PRN Nausea & Vomiting, Start date: 02/27/15 6:27:00, Duration: 30 day, Stop date: 03/29/15 6:26:00Notes: (Same as: Zofran) MEDICATION WASTE Product Size: 4 mg Product Wasted: ___ mg No Longer Active 02/27/2015 [facility] Docusate 100 mg, 1 cap, Route: PO, Drug form: CAP, BID, Dosing Weight 94.091, kg, PRN Constipation, Start date: 02/27/15 6:27:00, Duration: 30 day, Stop date: 03/29/15 6:26:00Notes: (Same as: Colace) (Do Not Crush) No Longer Active 02/27/2015 [facility] Acetaminophen 650 mg, 2 tab, Route: PO, Drug form: TAB, Q4H, Dosing Weight 94.091, kg, PRN Pain 1-3/Temp > 100.4 F, Start date: 02/27/15 6:27:00, Duration: 30 day, Stop date: 03/29/15 6:26:00Notes: Do not exceed 4 gm/day. (Same as: Tylenol) No Longer Active 02/27/2015 [facility] Morphine 2 mg, 1 mL, Route: IVP, Drug form: INJ, Q4H, Dosing Weight 94.091, kg, PRN Pain Score 7-10, Start date: 02/27/15 6:27:00, Duration: 30 day, Stop date: 03/29/15 6:26:00Notes: (Same as:MORPhine Sulfate) No Longer Active 02/27/2015 [facility] Benicar 40 mg, 2 tab, Route: PO, Drug form: TAB, ONCE, Dosing Weight 94.091, kg, Priority: NOW, Start date: 02/27/15 5:33:00, Stop date: 02/27/15 5:33:00 Inactive 02/27/2015 [facility] methylPREDNISolone SODium SUCCinate 125 mg, Route: IVP, ONCE, Dosing Weight 94.091, kg, Priority: STAT, Start date: 02/27/15 3:34:00, Stop date: 02/27/15 3:34:00 Inactive 02/27/2015 [facility] Albuterol 0.833 MG/ML / Ipratropium [place] 0.167 MG/ML Inhalant Solution 3 mL, Route: NEB, Drug Form: SOLN, Dosing Weight 94.091, kg, ONCE, STAT, Start date: 02/27/15 1:50:00, Stop date: 02/27/15 1:50:00 Inactive 02/27/2015 [facility] Saline Flush 0.9% 10 mL, Route: IVP, Drug Form: INJ, Dosing Weight 94.091, kg, PRN, PRN Line Flush, Start date: 02/27/15 1:50:00, Duration: 30 day, Stop date: 03/29/15 1:49:00Notes: (Same as: BD Posiflush) Inactive 02/27/2015 [facility] doxycycline monohydrate 100 mg oral tablet 100 mg=1 tab, PO, Q12H, # 20 tab, 0 Refill(s) Active 10/10/2014 [facility] predniSONE 10 mg oral tablet See [...] 5 mg (1/2 tab) daily Active 10/10/2014 [facility] Albuterol 0.833 MG/ML / Ipratropium [place] 0.167 MG/ML Inhalant Solution [DuoNeb] 3 ml, Route: INHALATION, Drug Form: SOLN, Dosing Weight 92.727, kg, PRN, PRN Respiratory Protocol, Start date: 10/10/14 11:22:00, Duration: 30 day, Stop date: 11/09/14 11:21:00Notes: (Same as: Duoneb) Inactive 10/10/2014 [facility] Albuterol 0.833 MG/ML / Ipratropium [place] 0.167 MG/ML Inhalant Solution [DuoNeb] 3 ml, Route: INHALATION, Drug Form: SOLN, Dosing Weight 92.727, kg, PRN, PRN Respiratory Protocol, Start date: 10/10/14 11:21:00, Duration: 30 day, Stop date: 11/09/14 11:20:00Notes: (Same as: Duoneb) Inactive 10/10/2014 [facility] Saline Flush 0.9% 10 mL, Route: IVP, Drug Form: INJ, Dosing Weight 92.727, kg, PRN, PRN Line Flush, Start date: 10/10/14 11:21:00, Duration: 30 day, Stop date: 11/09/14 11:20:00Notes: Same as: BD Posiflush Sterile Inactive 10/10/2014 [facility] Sulfamethoxazole 800 MG / Trimethoprim 160 MG Oral Tablet [Bactrim] 1 tab, PO, BID, # 14 tab, 0 Refill(s) Active 08/23/2014 [facility] benzonatate 100 MG Oral Capsule [Tessalon Perles] 100 mg=1 cap, PO, TID, # 30 cap, 0 Refill(s) Active 05/16/2014 [facility] Albuterol 0.833 MG/ML / Ipratropium [place] 0.167 MG/ML Inhalant Solution 3 mL, Route: NEB, Drug Form: SOLN, Dosing Weight 92.727, kg, ONCE, STAT, Start date: 05/16/14 12:48:00, Stop date: 05/16/14 12:48:00 Inactive 05/16/2014 [facility] Saline Flush 0.9% 10 mL, Route: IVP, Drug Form: INJ, Dosing Weight 92.727, kg, PRN, PRN Line Flush, Start date: 05/16/14 12:48:00, Duration: 30 day, Stop date: 06/15/14 11:47:00 Inactive 05/16/2014 [facility] Levemir FlexPen 25 unit, 0.25 mL, Route: SUB-Q, Drug form: INJ, Bedtime, Start date: 01/09/13 21:00:00, Duration: 30 day, Stop date: 02/07/13 21:00:00 SUB-Q No Longer Active Rickie 01/10/2013 [facility] Protonix 40 mg oral enteric coated tablet 40 mg, 1 tab, PO, Daily, 30 tab, Substitution Allowed, ECTAB PO Active Earnest 01/09/2013 [facility] amLODipine 10 mg oral tablet 10 mg, 1 tab, PO, Daily, 30 tab, Substitution Allowed, TAB PO Active Earnest 01/09/2013 [facility] predniSONE 10 mg oral tablet 10 mg, 1 tab, PO, Daily, 14 tab, Substitution Allowed, TAB PO Active Earnest 01/09/2013 [facility] Levemir FlexPen 10 unit, 0.1 mL, Route: SUB-Q, Drug form: INJ, QAM, Start date: 01/09/13 9:00:00, Duration: 30 day, Stop date: 02/07/13 9:00:00 SUB-Q No Longer Active Rickie 01/09/2013 [facility] NS 1,000 mL 1,000 mL, Rate: 75 ml/hr, Infuse over: 13.3 hr, Route: IV, Dosing Weight 93.636 kg, Total Volume: 1,000, Start date: 01/09/13 8:07:00, Duration: 30 day, Stop date: 02/08/13 8:06:00 IV No Longer Active [facility] 01/09/2013 [facility] Levemir FlexPen 15 unit, 0.15 mL, Route: SUB-Q, Drug form: INJ, Daily, Dosing Weight 93.636, kg, Start date: 01/08/13 21:00:00, Duration: 30 day, Stop date: 02/06/13 21:00:00 SUB-Q No Longer Active [facility] 01/09/2013 [facility] NovoLog FlexPen 18 unit, 0.18 mL, Route: SUB-Q, Drug form: SOLN, Sliding Scale, PRN Blood Glucose Results, Start date: 01/08/13 18:56:00, Duration: 30 day, Stop date: 02/07/13 18:55:00 SUB-Q No Longer Active Earnest 01/08/2013 [facility] NovoLog FlexPen 12 unit, 0.12 mL, Route: SUB-Q, Drug form: SOLN, Sliding Scale, PRN Blood Glucose Results, Start date: 01/08/13 18:55:00, Duration: 30 day, Stop date: 02/07/13 18:54:00 SUB-Q No Longer Active Earnest 01/08/2013 [facility] NovoLog FlexPen 8 unit, Route: SUB-Q, Drug form: SOLN, Sliding Scale, PRN Blood Glucose Results, Start date: 01/08/13 18:53:00, Duration: 30 day, Stop date: 02/07/13 18:52:00 SUB-Q No Longer Active Earnest 01/08/2013 [facility] pantoprazole 40 mg, 1 tab, Route: PO, Drug form: ECTAB, Daily, Dosing Weight 93.636, kg, Priority: Routine, Start date: 01/08/13 9:00:00, Stop date: 02/06/13 9:00:00 [facility] SoluMedrol 40 mg, 1 mL, Route: IVP, Drug form: INJ, Q12H, Dosing Weight 93.636, kg, Start date: 01/08/13 9:00:00, Duration: 30 day, Stop date: 02/06/13 21:00:00 [facility] Diovan 320 mg, 2 tab, Route: PO, Drug form: TAB, Daily, Dosing Weight 93.636, kg, Start date: 01/08/13 9:00:00, Duration: 30 day, Stop date: 02/06/13 9:00:00 [facility] pneumococcal 23-valent vaccine 0.5 ml, Route: IM, Drug Form: INJ, Daily, Start date: 01/08/13 9:00:00, Duration: 1 doses or times, Stop date: 01/08/13 9:00:00 IM No Longer Active [facility] 01/08/2013 [facility] aspirin 81 mg tablet, chewable 81 mg, 1 tab, Route: PO, Drug form: CHEWTAB, Daily, Dosing Weight 93.636, kg, Start date: 01/08/13 9:00:00, Duration: 30 day, Stop date: 02/06/13 9:00:00 [facility] atorvastatin 10 mg, 1 tab, Route: PO, Drug form: TAB, QAM, Dosing Weight 93.636, kg, Start date: 01/08/13 9:00:00, Duration: 30 day, Stop date: 02/06/13 9:00:00 [facility] amLODipine 5 mg, 1 tab, Route: PO, Drug form: TAB, BID, Dosing Weight 93.636, kg, Start date: 01/08/13 9:00:00, Duration: 30 day, Stop date: 02/06/13 21:00:00 [facility] NovoLog FlexPen 12 unit, 0.12 mL, Route: SUB-Q, Drug form: SOLN, Sliding Scale, PRN Blood Glucose Results, Start date: 01/08/13 8:59:00, Duration: 30 day, Stop date: 02/07/13 8:58:00 SUB-Q No Longer Active Earnest 01/08/2013 [facility] DuoNeb inhalation solution 3 mL, Route: INHALATION, Drug Form: SOLN, Dosing Weight 93.636, kg, RQ6H, Start date: 01/08/13 8:00:00, Duration: 30 day, Stop date: 02/07/13 2:00:00 INHALATION [facility] codeine-guaifenesin 10 mg-200 mg/5 mL oral liquid 10 mL, Route: PO, Drug Form: LIQ, Dosing Weight 93.636, kg, Q4H, PRN as needed for cough, Start date: 01/08/13 4:50:00, Duration: 30 day, Stop date: 02/07/13 4:49:00 PO [facility] Zofran 4 mg, 2 mL, Route: IV, Drug form: INJ, Q4H, Dosing Weight 93.636, kg, PRN as needed for nausea/vomiting, Start date: 01/08/13 4:50:00, Duration: 30 day, Stop date: 02/07/13 4:49:00 IV [facility] acetaminophen 650 mg, 2 tab, Route: PO, Drug form: TAB, Q6H, Dosing Weight 93.636, kg, PRN Pain, Start date: 01/08/13 4:50:00, Duration: 30 day, Stop date: 02/07/13 4:49:00 [facility] azithromycin + Sodium Chloride 0.9% IV 250 mL 500 mg, Route: IVPB, [id number], Dosing Weight 90.455, kg, Priority: Routine, Start date: 01/08/13 3:00:00, Duration: 30 day, Stop date: 02/06/13 3:00:00 IVPB No Longer Active Earnest 01/08/2013 [facility] ceftriaxone + Sodium Chloride 0.9% IV 100 mL 1 gm, Route: IVPB, [id number], Dosing Weight 90.455, kg, Priority: Routine, Start date: 01/08/13 3:00:00, Duration: 30 day, Stop date: 02/06/13 3:00:00 IVPB No Longer Active Earnest 01/08/2013 [facility] Dextrose 50% Syringe 25 gm, 50 mL, Route: IVP, Drug Form: INJ, Dosing Weight 90.455, kg, PRN, PRN Blood Glucose Results, Start date: 01/08/13 2:41:00, Duration: 30 day, Stop date: 02/07/13 2:40:00 IVP No Longer Active Rickie 01/08/2013 [facility] insulin aspart 4 unit, 0.04 mL, Route: SUB-Q, Drug form: SOLN, Bedtime, Dosing Weight 90.455, kg, PRN Blood Glucose Results, Start date: 01/08/13 2:41:00, Duration: 30 day, Stop date: 02/07/13 2:40:00 SUB-Q No Longer Active Rickie 01/08/2013 [facility] glucagon 1 mg, Route: IM, Drug form: PDR/INJ, PRN, Dosing Weight 90.455, kg, PRN Blood Glucose Results, Start date: 01/08/13 2:41:00, Duration: 30 day, Stop date: 02/07/13 2:40:00 IM No Longer Active Rickie 01/08/2013 [facility] albuterol-ipratropium 2.5-0.5 mg inhalation solution 3 mL, Route: NEB, Drug Form: SOLN, Dosing Weight 90.455, kg, PRN, PRN Respiratory Protocol, Start date: 01/08/13 2:39:00, Duration: 30 day, Stop date: 02/07/13 2:38:00 NEB No Longer Active Yasmin 01/08/2013 [facility] acetaminophen 650 mg, 20.3 mL, Route: PO, Drug form: LIQ, Q4H, Dosing Weight 90.455, kg, PRN Pain Score 1-3, For fever > 100.4. Not to exceed 4 grams in 24 hours, Start date: 01/08/13 2:39:00, Duration: 30 day, Stop date: 02/07/13 2:38:00 PO No Longer Active Rickie 01/08/2013 [facility] DuoNeb inhalation solution 3 ml, Route: INHALATION, Drug Form: SOLN, Dosing Weight 90.455, kg, PRN, PRN Respiratory Protocol, Start date: 01/08/13 1:38:00, Duration: 30 day, Stop date: 02/07/13 1:37:00 INHALATION No Longer Active Madelin 01/08/2013 [facility] azithromycin + Sodium Chloride 0.9% IV 250 mL 500 mg, Route: IVPB, ONCE, Dosing Weight 90.455, kg, Priority: STAT, Start date: 01/08/13 0:48:00, Stop date: 01/08/13 0:48:00 IVPB No Longer Active [facility] 01/08/2013 [facility] ceftriaxone + Sodium Chloride 0.9% IV 100 mL 1 gm, Route: IVPB, ONCE, Dosing Weight 90.455, kg, Priority: STAT, Start date: 01/08/13 0:48:00, Stop date: 01/08/13 0:48:00 IVPB No Longer Active [facility] 01/08/2013 [facility] amLODipine 5 mg, 1 tab, Route: PO, Drug form: TAB, ONCE, Dosing Weight 90.455, kg, Start date: 01/08/13 0:23:00, Stop date: 01/08/13 0:23:00 PO No Longer Active [facility] 01/08/2013 [facility] metoprolol tartrate 50 mg, 1 tab, Route: PO, Drug form: TAB, ONCE, Dosing Weight 90.455, kg, Priority: STAT, Start date: 01/08/13 0:23:00, Stop date: 01/08/13 0:23:00 PO No Longer Active [facility] 01/08/2013 [facility] Pepcid 40 mg, 1 tab, Route: PO, Drug form: TAB, ONCE, Start date: 01/07/13 20:56:00, Stop date: 01/07/13 20:56:00 PO No Longer Active [facility] 01/08/2013 [facility] Zantac 300 300 mg, Route: PO, ONCE, Dosing Weight 90.455, kg, Start date: 01/07/13 20:18:00, Stop date: 01/07/13 20:18:00 PO No Longer Active [facility] 01/08/2013 [facility] albuterol-ipratropium 2.5-0.5 mg inhalation solution 3 mL, Route: NEB, Dosing Weight 90.455, kg, ONCE, STAT, Start date: 01/07/13 20:17:00, Stop date: 01/07/13 20:17:00 NEB No Longer Active [facility] 01/08/2013 [facility] methylPREDNISolone SODium SUCCinate 20 mg, 0.5 mL, Route: IVP, Drug form: INJ, Daily, Dosing Weight 92.727, kg, Start date: 09/04/12 9:00:00, Duration: 30 day, Stop date: 10/03/12 9:00:00 IVP No Longer Active [facility] 09/04/2012 [facility] NovoLog 10 unit, 0.1 mL, Route: SUB-Q, Drug form: SOLN, ONCE, Dosing Weight 92.5, kg, Start date: 09/03/12 13:30:00, Stop date: 09/03/12 13:30:00 SUB-Q No Longer Active [facility] 09/03/2012 [facility] Vantin 200 mg oral tablet 200 mg, 1 tab, PO, Q12H, 14 tab, Substitution Allowed, TAB PO Active [facility] 09/03/2012 [facility] Medrol Dosepak 4 mg Tablet As directed on package instructions, PO, Daily, Take with or without food, 1 Pack, Substitution AllowedTake with or without food PO Active [facility] 09/03/2012 [facility] albuterol 90 mcg/inh inhalation aerosol 1 puff, INHALATION, QID, PRN, 1 ea, wheezing, Substitution Allowed, Maintenance INHALATION Active [facility] 09/03/2012 [facility] Tussionex [employer] oral suspension, extended release 5 ml, PO, Q12H, PRN, 100 mL, for cough, Substitution Allowed, Maintenance, ER Suspension PO Active [facility] 09/03/2012 [facility] atorvastatin 10 mg, 1 tab, Route: PO, Drug form: TAB, QAM, Dosing Weight 92.5, kg, Start date: 09/03/12 9:00:00, Duration: 30 day, Stop date: 10/02/12 9:00:00 PO No Longer Active Rosanna 09/03/2012 [facility] aspirin 81 mg tablet, chewable 81 mg, 1 tab, Route: PO, Drug form: CHEWTAB, Daily, Dosing Weight 92.5, kg, Start date: 09/03/12 9:00:00, Duration: 30 day, Stop date: 10/02/12 9:00:00 PO No Longer Active Rosanna 09/03/2012 [facility] amLODipine 5 mg, 1 tab, Route: PO, Drug form: TAB, BID, Dosing Weight 92.5, kg, Start date: 09/03/12 9:00:00, Duration: 30 day, Stop date: 10/02/12 17:00:00 PO No Longer Active Rosanna 09/03/2012 [facility] Diovan 320 mg, 2 tab, Route: PO, Drug form: TAB, Daily, Dosing Weight 92.5, kg, Start date: 09/03/12 9:00:00, Duration: 30 day, Stop date: 10/02/12 9:00:00 PO No Longer Active [facility] 09/03/2012 [facility] metoprolol extended release 100 mg, 1 tab, Route: PO, Drug form: ERTAB, QAM, Start date: 09/03/12 9:00:00, Duration: 30 day, Stop date: 10/02/12 9:00:00 PO No Longer Active [facility] 09/03/2012 [facility] NovoLog PenFill Route: SUB-Q, Drug form: SOLN, TID-Meals, Dosing Weight 92.5, kg, Start date: 09/03/12 8:00:00, Duration: 30 day, Stop date: 10/02/12 17:00:00 SUB-Q No Longer Active [facility] 09/03/2012 [facility] NovoLog 10 unit, 0.1 mL, Route: SUB-Q, Drug form: SOLN, ONCE, Dosing Weight 92.5, kg, Priority: NOW, Start date: 09/02/12 22:19:00, Stop date: 09/02/12 22:19:00 SUB-Q No Longer Active [facility] 09/03/2012 [facility] Toprol-XL 50 mg oral tablet, extended release 50 mg, 1 tab, Route: PO, Drug form: ERTAB, QPM, Start date: 09/02/12 21:00:00, Duration: 30 day, Stop date: 10/01/12 21:00:00 PO No Longer Active [facility] 09/03/2012 [facility] Levemir FlexPen 15 unit, 0.15 mL, Route: SUB-Q, Drug form: INJ, Bedtime, Dosing Weight 92.5, kg, Start date: 09/02/12 21:00:00, Duration: 30 day, Stop date: 10/01/12 21:00:00 SUB-Q No Longer Active [facility] 09/03/2012 [facility] insulin detemir 25 unit, 0.25 mL, Route: SUB-Q, Drug form: INJ, Bedtime, Dosing Weight 92.5, kg, Start date: 09/02/12 21:00:00, Duration: 30 day, Stop date: 10/01/12 21:00:00 SUB-Q No Longer Active [facility] 09/03/2012 [facility] methylPREDNISolone SODium SUCCinate 40 mg, 1 mL, Route: IVP, Drug form: INJ, Q12H, Dosing Weight 92.727, kg, Start date: 09/02/12 21:00:00, Duration: 30 day, Stop date: 10/02/12 9:00:00 IVP No Longer Active [facility] 09/03/2012 [facility] enoxaparin 40 mg, 0.4 mL, Route: SUB-Q, Drug form: INJ, [id number], Dosing Weight 92.5, kg, Start date: 09/02/12 18:00:00, Duration: 30 day, Stop date: 10/01/12 18:00:00 SUB-Q No Longer Active [facility] 09/03/2012 [facility] Tylenol 650 mg, 2 tab, Route: PO, Drug form: TAB, Q6H, Dosing Weight 92.5, kg, PRN Pain Score 1-3, Start date: 09/02/12 17:46:00, Duration: 30 day, Stop date: 10/02/12 17:45:00 PO No Longer Active [facility] 09/02/2012 [facility] Backus 5/325 oral tablet 1 tab, Route: PO, Drug Form: TAB, Dosing Weight 92.5, kg, Q6H, PRN Pain Score 1-5, Start date: 09/02/12 17:46:00, Duration: 30 day, Stop date: 10/02/12 17:45:00 PO No Longer Active [facility] 09/02/2012 [facility] morphine Sulfate 2 mg, 1 mL, Route: IVP, Drug form: INJ, Q4H, Dosing Weight 92.5, kg, PRN Pain Score 6-10, Start date: 09/02/12 17:45:00, Duration: 30 day, Stop date: 10/02/12 17:44:00 IVP No Longer Active [facility] 09/02/2012 [facility] dextromethorphan-guaifenesin 10 mg-100 mg/5 mL oral liquid 10 ml, Route: PO, Drug Form: SYRP, Dosing Weight 92.5, kg, Q4H, PRN Cough, Start date: 09/02/12 17:44:00, Duration: 30 day, Stop date: 10/02/12 17:43:00 PO No Longer Active [facility] 09/02/2012 [facility] Tessalon Perles 100 mg, 1 cap, Route: PO, Drug form: CAP, TID, Dosing Weight 92.5, kg, PRN Cough, Start date: 09/02/12 17:44:00, Duration: 30 day, Stop date: 10/02/12 17:43:00 PO No Longer Active [facility] 09/02/2012 [facility] Zofran 4 mg, 2 mL, Route: IV, Drug form: INJ, Q6H, Dosing Weight 92.5, kg, PRN Nausea, Start date: 09/02/12 17:44:00, Duration: 30 day, Stop date: 10/02/12 17:43:00 IV No Longer Active [facility] 09/02/2012 [facility] insulin aspart 6 unit, 0.06 mL, Route: SUB-Q, Drug form: SOLN, TID-Before Meals, Dosing Weight 92.5, kg, PRN Blood Glucose Results, Start date: 09/02/12 17:44:00, Duration: 30 day, Stop date: 10/02/12 17:43:00 SUB-Q No Longer Active [facility] 09/02/2012 [facility] Dextrose 50% Syringe 12.5 gm, 25 mL, Route: IVP, Drug Form: INJ, Dosing Weight 92.5, kg, PRN, PRN Blood Glucose Results, Start date: 09/02/12 17:44:00, Duration: 30 day, Stop date: 10/02/12 18:43:00 IVP No Longer Active [facility] 09/02/2012 [facility] glucagon 1 mg, Route: IM, Drug form: PDR/INJ, PRN, Dosing Weight 92.5, kg, PRN Blood Glucose Results, Start date: 09/02/12 17:44:00, Duration: 30 day, Stop date: 10/02/12 18:43:00 IM No Longer Active [facility] 09/02/2012 [facility] nitroglycerin 0.4 mg sublingual tablet 0.4 mg, 1 tab, Route: SL, Drug form: TAB, Q5Min, PRN Chest Pain, Start date: 09/02/12 17:01:00, Duration: 30 day, Stop date: 10/02/12 18:00:00 SL No Longer Active [facility] 09/02/2012 [facility] atropine 0.5 mg, 5 mL, Route: IVP, Drug form: INJ, PRN, PRN Bradycardia, Start date: 09/02/12 17:01:00, Duration: 30 day, Stop date: 10/02/12 18:00:00 IVP No Longer Active [facility] 09/02/2012 [facility] Maxipime + Sodium Chloride 0.9% IV 100 mL 1 gm, Route: IVPB, [id number], Dosing Weight 92.727, kg, Priority: STAT, Start date: 09/02/12 16:52:00, Duration: 30 day, Stop date: 10/01/12 16:52:00 IVPB No Longer Active [facility] 09/02/2012 [facility] Cipro 400 mg, 200 mL, Route: IVPB, Drug form: INJ, [id number], Dosing Weight 92.727, kg, Priority: STAT, Start date: 09/02/12 16:52:00, Duration: 30 day, Stop date: 10/02/12 4:52:00 IVPB No Longer Active [facility] 09/02/2012 [facility] Saline Flush 0.9% 5 ml, Route: IVP, Drug Form: INJ, Dosing Weight 92.727, kg, PRN, PRN Line Flush, Start date: 09/02/12 16:52:00, Duration: 30 day, Stop date: 10/02/12 17:51:00 IVP No Longer Active [facility] 09/02/2012 [facility] albuterol 0.083% inhalation solution 2.49 mg, Route: NEB, PRN, Dosing Weight 92.727, kg, PRN Respiratory Protocol, Start date: 09/02/12 16:52:00, Duration: 30 day, Stop date: 10/02/12 17:51:00 NEB No Longer Active [facility] 09/02/2012 [facility] albuterol-ipratropium 2.5-0.5 mg inhalation solution 3 mL, Route: NEB, Drug Form: SOLN, Dosing Weight 92.727, kg, PRN, PRN Respiratory Protocol, Start date: 09/02/12 16:52:00, Duration: 30 day, Stop date: 10/02/12 17:51:00 NEB No Longer Active [facility] 09/02/2012 [facility] ipratropium 0.5 mg, Route: NEB, PRN, Dosing Weight 92.727, kg, PRN Respiratory Protocol, Start date: 09/02/12 16:52:00, Duration: 30 day, Stop date: 10/02/12 17:51:00 NEB No Longer Active [facility] 09/02/2012 [facility] NovoLog PenFill 100 units/mL subcutaneous solution [...] units for BS > 300 SUB-Q Active [facility] 09/02/2012 [facility] Dextrose 50% Syringe 12.5 gm, 25 mL, Route: IVP, Drug Form: INJ, Dosing Weight 92.727, kg, PRN, PRN Blood Glucose Results, Start date: 09/02/12 16:51:00, Duration: 30 day, Stop date: 10/02/12 17:50:00 IVP No Longer Active [facility] 09/02/2012 [facility] glucagon 1 mg, Route: IM, Drug form: PDR/INJ, PRN, Dosing Weight 92.727, kg, PRN Blood Glucose Results, Start date: 09/02/12 16:51:00, Duration: 30 day, Stop date: 10/02/12 17:50:00 IM No Longer Active [facility] 09/02/2012 [facility] insulin aspart 2 unit, 0.02 mL, Route: SUB-Q, Drug form: SOLN, TID-Before Meals, Dosing Weight 92.727, kg, PRN Blood Glucose Results, Start date: 09/02/12 16:51:00, Duration: 30 day, Stop date: 10/02/12 16:50:00 SUB-Q No Longer Active [facility] 09/02/2012 [facility] Levemir FlexPen 100 units/mL subcutaneous solution 25 unit, SUB-Q, Bedtime, if BS > 200, 3 ml, Substitution Allowed, SOLNif BS > 200 SUB-Q Active [facility] 09/02/2012 [facility] Toprol-XL 50 mg oral tablet, extended release 50 mg, 1 tab, PO, QPM, 30 tab, Substitution Allowed, ERTAB PO Active [facility] 09/02/2012 [facility] Cipro 400 mg, Route: IVPB, ONCE, Dosing Weight 92.727, kg, Priority: STAT, Start date: 09/02/12 13:13:00, Stop date: 09/02/12 13:13:00 IVPB No Longer Active [facility] 09/02/2012 [facility] Maxipime 2 gm, Route: IVPB, ONCE, Dosing Weight 92.727, kg, Priority: STAT, Start date: 09/02/12 13:13:00, Stop date: 09/02/12 13:13:00 IVPB No Longer Active [facility] 09/02/2012 [facility] DuoNeb inhalation solution 3 ml, Route: INHALATION, Drug Form: SOLN, Dosing Weight 92.727, kg, PRN, PRN Respiratory Protocol, Start date: 09/02/12 12:52:00, Duration: 30 day, Stop date: 10/02/12 13:51:00 INHALATION No Longer Active [facility] 09/02/2012 [facility] SoluMedrol 125 mg, Route: IVP, ONCE, Dosing Weight 92.727, kg, Priority: STAT, Start date: 09/02/12 12:52:00, Stop date: 09/02/12 12:52:00 IVP No Longer Active [facility] 09/02/2012 [facility] Zithromax 500 mg, Route: IVPB, ONCE, Dosing Weight 92.727, kg, Priority: STAT, Start date: 09/02/12 12:50:00, Stop date: 09/02/12 12:50:00 IVPB No Longer Active [facility] 09/02/2012 [facility] Rocephin 1 g/ NS (NaCl 0.9%) 50 mL IV solution 1 gm, Route: IVPB, Drug form: PDR/INJ, ONCE, Dosing Weight 92.727, kg, Priority: STAT, Start date: 09/02/12 12:49:00, Stop date: 09/02/12 12:49:00 IVPB No Longer Active [facility] 09/02/2012 [facility] pantoprazole 40 mg, 1 tab, Route: PO, Drug form: ECTAB, Before Breakfast, Dosing Weight 95, kg, Priority: Routine, Start date: 06/27/12 7:30:00, Duration: 30 day, Stop date: 07/26/12 7:30:00 PO No Longer Active [facility] 06/27/2012 [facility] Levaquin 500 mg, 2 tab, Route: PO, Drug form: TAB, [id number], Dosing Weight 95, kg, Start date: 06/26/12 11:00:00, Duration: 30 day, Stop date: 07/25/12 11:00:00 PO No Longer Active [facility] 06/26/2012 [facility] Levaquin 500 mg oral tablet 500 mg, 1 tab, PO, [id number], 4 tab, Substitution Allowed, TAB PO Active [facility] 06/26/2012 [facility] Levemir 15 unit, 0.15 mL, Route: SUB-Q, Drug form: INJ, QPM, Dosing Weight 95, kg, Start date: 06/24/12 17:00:00, Duration: 30 day, Stop date: 07/23/12 17:00:00 SUB-Q No Longer Active [facility] 06/24/2012 [facility] glucagon 1 mg, Route: IM, Drug form: PDR/INJ, PRN, Dosing Weight 95, kg, PRN Abnormal Lab Result, Priority: STAT, Start date: 06/24/12 11:35:00, Duration: 30 day, Stop date: 07/24/12 11:34:00 IM No Longer Active [facility] 06/24/2012 [facility] insulin aspart 2 unit, 0.02 mL, Route: SUB-Q, Drug form: SOLN, Bedtime, Dosing Weight 95, kg, PRN Blood Glucose Results, Start date: 06/24/12 11:35:00, Duration: 30 day, Stop date: 07/24/12 11:34:00 SUB-Q No Longer Active [facility] 06/24/2012 [facility] Dextrose 50% Syringe 12.5 gm, 25 mL, Route: IVP, Drug Form: INJ, Dosing Weight 95, kg, PRN, PRN Blood Glucose Results, Start date: 06/24/12 11:35:00, Duration: 30 day, Stop date: 07/24/12 11:34:00 IVP No Longer Active [facility] 06/24/2012 [facility] docusate 100 mg, 1 cap, Route: PO, Drug form: CAP, BID, Dosing Weight 95, kg, Start date: 06/24/12 9:00:00, Duration: 30 day, Stop date: 07/23/12 17:00:00 PO No Longer Active [facility] 06/24/2012 [facility] Cycloset 3.2 mg, Route: PO, Drug form: TAB, After Breakfast, Dosing Weight 95, kg, Start date: 06/24/12 8:30:00, Duration: 30 day, Stop date: 07/23/12 8:30:00 PO No Longer Active [facility] 06/24/2012 [facility] Cycloset 3.2mg PO after breakfast-Use pt's home med Cycloset 3.2mg PO after breakfast-Use pt's home med, 3.2 mg, Drug form: MISC, Route: PO, After Breakfast, 06/24/12 8:30:00, Duration: 30 day, Stop date: 07/23/12 8:30:00 PO No Longer Active [facility] 06/24/2012 [facility] pantoprazole 40 mg, Route: IVP, Drug form: INJ, Before Breakfast, Dosing Weight 95, kg, Priority: Routine, Start date: 06/24/12 7:30:00, Duration: 30 day, Stop date: 07/23/12 7:30:00 IVP No Longer Active [facility] 06/24/2012 [facility] nitroglycerin 0.4 mg sublingual tablet 0.4 mg, 1 tab, Route: SL, Drug form: TAB, Q5Min, PRN Chest Pain, Start date: 06/24/12 0:03:00, Duration: 30 day, Stop date: 07/24/12 0:02:00 SL No Longer Active [facility] 06/24/2012 [facility] atropine 0.5 mg, 5 mL, Route: IVP, Drug form: INJ, PRN, PRN Bradycardia, Start date: 06/24/12 0:03:00, Duration: 30 day, Stop date: 07/24/12 0:02:00 IVP No Longer Active [facility] 06/24/2012 [facility] Rocephin + Sodium Chloride 0.9% IV 100 mL 1 gm, Route: IVPB, Drug form: PDR/INJ, Q24H, Dosing Weight 95, kg, Priority: Routine, Start date: 06/23/12 23:00:00, Duration: 30 day, Stop date: 07/22/12 23:00:00 IVPB No Longer Active [facility] 06/24/2012 [facility] normal saline 0.9% IV 1,000 mL 1,000 mL, Rate: 100 ml/hr, Infuse over: 10 hr, Route: IV, kg, Total Volume: 1,000, Start date: 06/23/12 22:20:00, Stop date: 06/24/12 23:31:00 IV No Longer Active [facility] 06/24/2012 [facility] acetaminophen 650 mg, 2 tab, Route: PO, Drug form: TAB, Q8H, Dosing Weight 95, kg, PRN Pain/Fever, Start date: 06/23/12 22:20:00, Duration: 30 day, Stop date: 07/23/12 22:19:00 PO No Longer Active [facility] 06/24/2012 [facility] ondansetron 4 mg, 2 mL, Route: IVP, Drug form: INJ, Q6H, Dosing Weight 95, kg, PRN Nausea & Vomiting, Start date: 06/23/12 22:20:00, Duration: 30 day, Stop date: 07/23/12 22:19:00 IVP No Longer Active [facility] 06/24/2012 [facility] Saline Flush 0.9% 5 ml, Route: IVP, Drug Form: INJ, Dosing Weight 95, kg, PRN, PRN Line Flush, Start date: 06/23/12 22:20:00, Duration: 30 day, Stop date: 07/23/12 22:19:00 IVP No Longer Active [facility] 06/24/2012 [facility] aspirin 81 mg tablet, chewable 81 mg, 1 tab, Route: PO, Drug form: CHEWTAB, Q24H, Dosing Weight 95, kg, Start date: 06/23/12 22:00:00, Duration: 30 day, Stop date: 07/22/12 22:00:00 [facility] Dextrose 50% Syringe 25 gm, 50 mL, Route: IVP, Drug Form: INJ, Dosing Weight 95, kg, PRN, PRN Blood Glucose Results, Start date: 06/23/12 21:35:00, Duration: 30 day, Stop date: 07/23/12 21:34:00 IVP No Longer Active [facility] 06/24/2012 [facility] glucagon 1 mg, Route: IM, Drug form: PDR/INJ, PRN, Dosing Weight 95, kg, PRN Blood Glucose Results, Start date: 06/23/12 21:35:00, Duration: 30 day, Stop date: 07/23/12 21:34:00 IM No Longer Active [facility] 06/24/2012 [facility] insulin aspart 1 unit, 0.01 mL, Route: SUB-Q, Drug form: SOLN, TID-Before Meals, Dosing Weight 95, kg, PRN Blood Glucose Results, Start date: 06/23/12 21:35:00, Duration: 30 day, Stop date: 07/23/12 21:34:00 SUB-Q No Longer Active [facility] 06/24/2012 [facility] chlorthalidone 25 mg oral tablet 12.5 mg, 0.5 tab, PO, Daily, Substitution Allowed PO Active 06/24/2012 [facility] Cycloset 0.8 mg oral tablet 3.2 mg, 4 tab, PO, After Breakfast, 2 hours after breakfast, Substitution Allowed2 hours after breakfast PO Active 06/24/2012 [facility] Calcium 600 +D oral tablet 1 tab, PO, Daily, Substitution Allowed, Maintenance PO Active 06/24/2012 [facility] metoprolol 50 mg oral tablet, extended release 50 mg, 1 tab, PO, BID, Substitution Allowed PO Active 06/24/2012 [facility] Cycloset Substitution Allowed No Longer Active 06/24/2012 [facility] Osteo Bi-Flex 1 tab, PO, Daily, Substitution Allowed, Maintenance PO Active 06/24/2012 [facility] Vitamin D3 1000 intl units oral capsule 1,000 IntlUnit, 1 cap, PO, Daily, 100 cap, Substitution Allowed, CAP PO Active 06/24/2012 [facility] aspirin 81 mg tablet, chewable 81 mg, 1 tab, PO, Daily, 30 tab, Substitution Allowed, CHEWTAB PO Active 06/24/2012 [facility] Levemir FlexPen 15 unit, SUB-Q, Bedtime, Substitution Allowed SUB-Q Active 06/24/2012 [facility] Byetta 5 mcg/0.02 mL subcutaneous solution 5 microgram, 0.02 mL, SUB-Q, Daily, Substitution Allowed SUB-Q Active 06/24/2012 [facility] atorvastatin 10 mg oral tablet 10 mg, 1 tab, PO, QAM, 30 tab, Substitution Allowed, TAB PO Active 06/24/2012 [facility] amLODipine 5 mg oral tablet 5 mg, 1 tab, PO, BID, Substitution Allowed PO Active 06/24/2012 [facility] Diovan 320 mg oral tablet 320 mg, 1 tab, PO, Daily, 30 tab, Substitution Allowed, TAB PO Active 06/24/2012 [facility] metoprolol 50 mg oral tablet 50 mg, 1 tab, PO, BID, 180 tab, Substitution Allowed, TAB PO No Longer Active 06/24/2012 [facility] glimepiride 4 mg oral tablet 4 mg, 1 tab, PO, BID, Substitution Allowed PO Active 06/24/2012 [facility] ciprofloxacin 400 mg, Route: IVPB, ONCE, Dosing Weight 95, kg, Priority: STAT, Start date: 06/23/12 18:28:00, Stop date: 06/23/12 18:28:00 IVPB No Longer Active [facility] 06/24/2012 [facility] Sodium Chloride 0.9% IV 1,000 mL 1,000 mL, Rate: 100 ml/hr, Infuse over: 10 hr, Route: IV, kg, Total Volume: 1,000, Start date: 06/23/12 18:27:00, Duration: 30 day, Stop date: 07/23/12 18:26:00 IV No Longer Active [facility] 06/24/2012 [facility] Motrin 800 mg, Route: PO, Drug form: TAB, ONCE, Dosing Weight 95, kg, Priority: STAT, Start date: 06/23/12 17:28:00, Stop date: 06/23/12 17:28:00 PO No Longer Active [facility] 06/23/2012 [facility] Zofran ODT 4 mg oral tablet, disintegrating 4 mg, 1 tab, PO, BID, PRN, Dissolve tab under tongue, 10 tab, Nausea and Vomiting, Substitution AllowedDissolve tab under tongue PO On Hold [facility] 06/22/2012 [facility] Macrobid 100 mg oral capsule 100 mg, 1 cap, PO, BID, 14 cap, Substitution Allowed PO On Hold [facility] 06/22/2012 [facility] Sodium Chloride 0.9% (Bolus) IV 1,000 mL 1,000 mL, Rate: 1,000 ml/hr, Infuse over: 1 hr, Route: IV, Dosing Weight 95 kg, Total Volume: 1,000, Bolus dose, Priority: STAT, Start date: 06/22/12 9:07:00, Duration: 1 doses or times, Stop date: 06/22/12 10:06:00 IV No Longer Active [facility] 06/22/2012 [facility] Saline Flush 0.9% 5 mL, Route: IVP, Dosing Weight 95, kg, PRN, PRN Line Flush, Start date: 06/22/12 9:07:00, Duration: 24 hr, Stop date: 06/23/12 9:06:00 IVP No Longer Active [facility] 06/22/2012 [facility] ondansetron 4 mg, Route: IVP, ONCE, Dosing Weight 95, kg, Priority: STAT, Start date: 06/22/12 9:07:00, Stop date: 06/22/12 9:07:00 IVP No Longer Active [facility] 06/22/2012 [facility] Allergies, Adverse Reactions, Alerts Substance Category Reaction Severity Reaction type Status Date Reported Comments Source Immunizations Immunization Date Given Site Status Last Updated Comments Source influenza virus vaccine, inactivated<sup>1</sup> 04/09/2018 Right Deltoid completed [facility] Result Comment: Pt declined to wait the 15 min after injection. [facility] influenza virus vaccine, inactivated<sup>1</sup> 09/03/2012 completed [facility] 1PATIENT STATES RECEIVED IN APRIL OF 2012 AT [facility] influenza virus vaccine, inactivated<sup>1</sup> 09/03/2012 completed [facility] Admin Note: PATIENT STATES RECEIVED IN APRIL OF 2012 AT [facility] influenza virus vaccine, inactivated<sup>1</sup> 09/03/2012 completed Cid Admin Note: PATIENT STATES RECEIVED IN APRIL OF 2012 AT [facility] influenza virus vaccine, inactivated<sup>1</sup> 09/03/2012 completed C[facility] Admin Note: PATIENT STATES RECEIVED IN APRIL OF 2012 AT [facility] influenza virus vaccine, inactivated<sup>2</sup> 09/03/2012 completed [facility] Admin Note: PATIENT STATES RECEIVED IN APRIL OF 2012 AT [facility] Results Order Name Results Value Reference Range Date Interpretation Comments Source CHEM PANEL Alk Phos 98 [iU]/d 39 - 117 12/03/2017 [facility] CHEM PANEL Bili Total 0.4 mg/dL 0.0 - 1.2 12/03/2017 [facility] CHEM PANEL ALANINE AMINOTRANSFERASE 15 [iU]/d 0 - 32 12/03/2017 [facility] CHEM PANEL ASPARTATE TRANSAMINASE 23 [iU]/d 0 - 40 12/03/2017 [facility] CHEM PANEL Chloride Lvl 107 mMol/L 96 - 106 12/03/2017 [facility] CHEM PANEL Potassium Lvl 5.0 mMol/L 3.5 - 5.2 12/03/2017 [facility] CHEM PANEL Sodium Lvl 143 mMol/L 134 - 144 12/03/2017 [facility] CHEM PANEL Total Protein 6.9 g/dL 6.0 - 8.5 12/03/2017 [facility] CHEM PANEL Calcium Lvl 10.0 mg/dL 8.7 - 10.3 12/03/2017 [facility] CHEM PANEL CO2 20 mMol/L 18 - 29 12/03/2017 [facility] CHEM PANEL B/C Ratio 21 12 - 28 12/03/2017 [facility] CHEM PANEL Creatinine Lvl 1.64 mg/dL 0.57 - 1.00 12/03/2017 [facility] CHEM PANEL BUN 35 mg/dL 8 - 27 12/03/2017 [facility] CHEM PANEL Glucose Lvl 173 mg/dL 65 - 99 12/03/2017 [facility] CHEM PANEL A/G Ratio 1.2 1.2 - 2.2 12/03/2017 [facility] CHEM PANEL Globulin 3.1 g/dL 1.5 - 4.5 12/03/2017 [facility] CHEM PANEL Albumin Lvl 3.8 g/dL 3.5 - 4.7 12/03/2017 [facility] HEMATOLOGY Immature Cells # 0.0 K/CMM 0.0 - 0.1 12/03/2017 [facility] HEMATOLOGY Immature Grans % 1 % Not Estab. % 12/03/2017 [facility] HEMATOLOGY Basophils # 0.0 K/CMM 0.0 - 0.2 12/03/2017 [facility] HEMATOLOGY Eosinophils # 0.1 K/CMM 0.0 - 0.4 12/03/2017 [facility] HEMATOLOGY Monocytes # 0.4 K/CMM 0.1 - 0.9 12/03/2017 [facility] HEMATOLOGY Eosinophils 2 % Not Estab. % 12/03/2017 [facility] HEMATOLOGY Monocytes 7 % Not Estab. % 12/03/2017 [facility] HEMATOLOGY Lymphocytes 32 % Not Estab. % 12/03/2017 [facility] HEMATOLOGY Segs 57 % Not Estab. % 12/03/2017 [facility] HEMATOLOGY Platelet 318 K/CMM 150 - 379 12/03/2017 [facility] HEMATOLOGY RDW 14.6 % 12.3 - 15.4 12/03/2017 [facility] HEMATOLOGY Lymphocytes # 1.8 K/CMM 0.7 - 3.1 12/03/2017 [facility] HEMATOLOGY Segs-Bands # 3.2 K/CMM 1.4 - 7.0 12/03/2017 [facility] HEMATOLOGY Basophils 1 % Not Estab. % 12/03/2017 [facility] HEMATOLOGY MCHC 31.9 g/dL 31.5 - 35.7 12/03/2017 [facility] HEMATOLOGY WBC X 10x3 5.6 K/CMM 3.4 - 10.8 12/03/2017 [facility] HEMATOLOGY MCH 30.3 pg 26.6 - 33.0 12/03/2017 [facility] HEMATOLOGY MCV 95 fL 79 - 97 12/03/2017 [facility] HEMATOLOGY Hct 40.1 % 34.0 - 46.6 12/03/2017 [facility] HEMATOLOGY Hgb 12.8 g/dL 11.1 - 15.9 12/03/2017 [facility] HEMATOLOGY RBC X 10x6 4.22 M/CMM 3.77 - 5.28 12/03/2017 [facility] SPECIAL CHEMISTRY Hgb A1C 8.0 % 4.8 - 5.6 12/03/2017 Result Comment: Pre-diabetes: 5.7 - 6.4 Diabetes: >6.4 Glycemic control for adults with diabetes: <7.0 [facility] Retroperitoneal Complete US Retroperitoneal Complete US EXAM: [...] Hari Carrillo MD 01/09/17 12:20 FINAL REPORT [facility] Jovani Chest 2 views DX Chest 2 [...] Ric Mancini MD 05/11/16 11:43 FINAL REPORT [facility] CHEM PANEL eGFR 42 mL/min/1.73m2 04/16/2016 Result [...] should be multiplied by the estimated BMI. [facility] CHEM PANEL Albumin Lvl 3.1 g/dL 3.5 - 5.0 04/16/2016 [facility] CHEM PANEL ALT 31 unit/L 0 - 65 04/16/2016 [facility] CHEM PANEL Total Protein 6.9 g/dL 6.4 - 8.4 04/16/2016 [facility] CHEM PANEL Bili Total 0.6 mg/dL 0.2 - 1.3 04/16/2016 [facility] CHEM PANEL Alk Phos 181 unit/L 39 - 136 04/16/2016 [facility] CHEM PANEL AST 28 unit/L 0 - 37 04/16/2016 [facility] CHEM PANEL Creatinine Lvl 1.20 mg/dL 0.50 - 1.40 04/16/2016 [facility] CHEM PANEL BUN 17 mg/dL 7 - 22 04/16/2016 [facility] CHEM PANEL Glucose Lvl 109 mg/dL 70 - 99 04/16/2016 [facility] CHEM PANEL Potassium Lvl 3.9 meq/L 3.5 - 5.1 04/16/2016 [facility] CHEM PANEL Sodium Lvl 144 meq/L 135 - 145 04/16/2016 [facility] CHEM PANEL Calcium Lvl 9.2 mg/dL 8.5 - 10.5 04/16/2016 [facility] CHEM PANEL CO2 26 meq/L 24 - 32 04/16/2016 [facility] CHEM PANEL Chloride Lvl 111 meq/L 95 - 109 04/16/2016 [facility] CHEM PANEL A/G Ratio 0.8 0.7 - 1.6 04/16/2016 [facility] CHEM PANEL Globulin 3.8 g/dL 2.7 - 4.2 04/16/2016 [facility] CHEM PANEL B/C Ratio 14 6 - 25 04/16/2016 [facility] CHEM PANEL AGAP 10.9 meq/L 10.0 - 20.0 04/16/2016 [facility] HEMATOLOGY MPV 8.0 fL 7.4 - 10.4 04/16/2016 [facility] HEMATOLOGY MCH 31.1 pg 27.0 - 31.0 04/16/2016 [facility] HEMATOLOGY MCV 92.3 fL 80.0 - 98.0 04/16/2016 [facility] HEMATOLOGY MCHC 33.6 g/dL 32.0 - 36.0 04/16/2016 [facility] HEMATOLOGY RDW 14.1 % 11.5 - 14.5 04/16/2016 [facility] HEMATOLOGY Platelet 383 K/CMM 133 - 450 04/16/2016 [facility] HEMATOLOGY WBC 9.2 K/CMM 3.7 - 10.4 04/16/2016 [facility] Hct 35.7 % 36.0 - 48.0 04/16/2016 [facility] RBC 3.87 M/CMM 4.20 - 5.40 04/16/2016 [facility] Hgb 12.0 g/dL 12.0 - 16.0 04/16/2016 [facility] Basophils 0.7 % 0.0 - 1.0 04/16/2016 [facility] Segs-Bands # 6.8 K/CMM 1.5 - 8.1 04/16/2016 [facility] Eosinophils 2.9 % 0.0 - 4.0 04/16/2016 [facility] Monocytes 6.7 % 2.0 - 12.0 04/16/2016 [facility] Eosinophils # 0.3 K/CMM 0.0 - 0.5 04/16/2016 [facility] Monocytes # 0.6 K/CMM 0.0 - 0.8 04/16/2016 [facility] Lymphocytes # 1.5 K/CMM 1.0 - 5.5 04/16/2016 [facility] Basophils # 0.1 K/CMM 0.0 - 0.2 04/16/2016 [facility] Segs 73.5 % 45.0 - 75.0 04/16/2016 [facility] Lymphocytes 16.2 % 20.0 - 40.0 04/16/2016 [facility] CHEM PANEL eGFR 30 mL/min/1.73m2 04/09/2016 [...] should be multiplied by the estimated BMI. [facility] CHEM PANEL CO2 17 meq/L 24 - 32 04/09/2016 [facility] CHEM PANEL Chloride Lvl 115 meq/L 95 - 109 04/09/2016 [facility] CHEM PANEL Calcium Lvl 8.2 mg/dL 8.5 - 10.5 04/09/2016 [facility] CHEM PANEL AGAP 15.4 meq/L 10.0 - 20.0 04/09/2016 [facility] CHEM PANEL Glucose Lvl 135 mg/dL 70 - 99 04/09/2016 [facility] CHEM PANEL Potassium Lvl 4.4 meq/L 3.5 - 5.1 04/09/2016 [facility] CHEM PANEL Sodium Lvl 143 meq/L 135 - 145 04/09/2016 [facility] CHEM PANEL Creatinine Lvl 1.59 mg/dL 0.50 - 1.40 04/09/2016 [facility] CHEM PANEL BUN 42 mg/dL 7 - 22 04/09/2016 [facility] CHEM PANEL Magnesium Lvl 2.0 mg/dL 1.8 - 2.4 04/09/2016 [facility] CHEM PANEL Phosphorus 3.1 mg/dL 2.5 - 4.5 04/09/2016 [facility] HEMATOLOGY Segs 82.1 % 45.0 - 75.0 04/09/2016 [facility] HEMATOLOGY Lymphocytes 9.1 % 20.0 - 40.0 04/09/2016 [facility] HEMATOLOGY Monocytes 7.8 % 2.0 - 12.0 04/09/2016 [facility] HEMATOLOGY Monocytes # 0.8 K/CMM 0.0 - 0.8 04/09/2016 [facility] HEMATOLOGY Eosinophils # 0.1 K/CMM 0.0 - 0.5 04/09/2016 [facility] HEMATOLOGY Segs-Bands # 8.6 K/CMM 1.5 - 8.1 04/09/2016 [facility] [facility] HEMATOLOGY Lymphocytes # 1.0 K/CMM 1.0 - 5.5 04/09/2016 [facility] HEMATOLOGY Basophils 0.3 % 0.0 - 1.0 04/09/2016 [facility] HEMATOLOGY Eosinophils 0.7 % 0.0 - 4.0 04/09/2016 [facility] HEMATOLOGY RDW 14.2 % 11.5 - 14.5 04/09/2016 [facility] HEMATOLOGY Platelet 199 K/CMM 133 - 450 04/09/2016 [facility] HEMATOLOGY MPV 9.1 fL 7.4 - 10.4 04/09/2016 [facility] HEMATOLOGY MCHC 33.5 g/dL 32.0 - 36.0 04/09/2016 [facility] HEMATOLOGY MCH 31.6 pg 27.0 - 31.0 04/09/2016 [facility] HEMATOLOGY MCV 94.2 fL 80.0 - 98.0 04/09/2016 [facility] HEMATOLOGY Hgb 11.0 g/dL 12.0 - 16.0 04/09/2016 [facility] HEMATOLOGY RBC 3.50 M/CMM 4.20 - 5.40 04/09/2016 [facility] HEMATOLOGY Hct 33.0 % 36.0 - 48.0 04/09/2016 [facility] HEMATOLOGY WBC 10.5 K/CMM 3.7 - 10.4 04/09/2016 [facility] CHEM PANEL eGFR 21 mL/min/1.73m2 04/08/2016 [...] should be multiplied by the estimated BMI. [facility] CHEM PANEL BUN 54 mg/dL 7 - 22 04/08/2016 [facility] CHEM PANEL Creatinine Lvl 2.16 mg/dL 0.50 - 1.40 04/08/2016 [facility] CHEM PANEL Sodium Lvl 140 meq/L 135 - 145 04/08/2016 [facility] CHEM PANEL Glucose Lvl 195 mg/dL 70 - 99 04/08/2016 [facility] CHEM PANEL Chloride Lvl 111 meq/L 95 - 109 04/08/2016 [facility] CHEM PANEL Potassium Lvl 4.6 meq/L 3.5 - 5.1 04/08/2016 [facility] CHEM PANEL CO2 19 meq/L 24 - 32 04/08/2016 [facility] CHEM PANEL Calcium Lvl 8.2 mg/dL 8.5 - 10.5 04/08/2016 [facility] CHEM PANEL AGAP 14.6 meq/L 10.0 - 20.0 04/08/2016 [facility] CHEM PANEL Magnesium Lvl 2.0 mg/dL 1.8 - 2.4 04/08/2016 [facility] CHEM PANEL Phosphorus 3.5 mg/dL 2.5 - 4.5 04/08/2016 [facility] MCHC 31.9 g/dL 32.0 - 36.0 04/08/2016 [facility] RDW 13.9 % 11.5 - 14.5 04/08/2016 [facility] MPV 9.1 fL 7.4 - 10.4 04/08/2016 [facility] HEMATOLOGY Platelet 205 K/CMM 133 - 450 04/08/2016 [facility] RBC 3.79 M/CMM 4.20 - 5.40 04/08/2016 [facility] Hgb 11.5 g/dL 12.0 - 16.0 04/08/2016 [facility] WBC 15.8 K/CMM 3.7 - 10.4 04/08/2016 [facility] MCH 30.3 pg 27.0 - 31.0 04/08/2016 [facility] MCV 94.9 fL 80.0 - 98.0 04/08/2016 [facility] Hct 35.9 % 36.0 - 48.0 04/08/2016 [facility] Basophils # 0.1 K/CMM 0.0 - 0.2 04/08/2016 [facility] Eosinophils # 0.2 K/CMM 0.0 - 0.5 04/08/2016 [facility] HEMATOLOGY Monocytes # 1.2 K/CMM 0.0 - 0.8 04/08/2016 [facility] Lymphocytes 11.6 % 20.0 - 40.0 04/08/2016 [facility] Segs 79.2 % 45.0 - 75.0 04/08/2016 [facility] Lymphocytes # 1.8 K/CMM 1.0 - 5.5 04/08/2016 [facility] Monocytes 7.6 % 2.0 - 12.0 04/08/2016 [facility] HEMATOLOGY Eosinophils 1.1 % 0.0 - 4.0 04/08/2016 [facility] Basophils 0.5 % 0.0 - 1.0 04/08/2016 [facility] Segs-Bands # 12.5 K/CMM 1.5 - 8.1 04/08/2016 [facility] CHEM PANEL eGFR 25 mL/min/1.73m2 04/07/2016 [...] should be multiplied by the estimated BMI. [facility] CHEM PANEL Creatinine Lvl 1.88 mg/dL 0.50 - 1.40 04/07/2016 [facility] HEMATOLOGY Platelet 211 K/CMM 133 - 450 04/07/2016 [facility] URINE AND STOOL UA Glucose 100 mg/dL Negative mg/dL 04/07/2016 [facility] URINE AND STOOL UA Turbidity Slight Cloudy (04/07/16 7:09 AM) Clear 04/07/2016 [facility] URINE AND STOOL UA Protein 100 mg/dL Negative mg/dL 04/07/2016 [facility] URINE AND STOOL UA Spec Grav 1.020 <=1.030 04/07/2016 [facility] URINE AND STOOL UA pH 6.0 5.0 - 8.0 04/07/2016 [facility] URINE AND STOOL UA Blood Large *ABN* (04/07/16 7:09 AM) Negative 04/07/2016 [facility] URINE AND STOOL UA Urobilinogen 0.2 EU/dL 0.1 - 1.0 04/07/2016 [facility] URINE AND STOOL UA Bili Negative *NA* (04/07/16 7:09 AM) Negative 04/07/2016 [facility] URINE AND STOOL UA Nitrite Positive *ABN* (04/07/16 7:09 AM) Negative 04/07/2016 [facility] URINE AND STOOL UA Ketones Negative *NA* (04/07/16 7:09 AM) Negative 04/07/2016 [facility] URINE AND STOOL UA Leuk Est Large *ABN* (04/07/16 7:09 AM) Negative 04/07/2016 [facility] URINE AND STOOL UA Color Yellow *NA* (04/07/16 7:09 AM) Yellow 04/07/2016 [facility] URINE AND STOOL UA Sq Epi Occasional /LPF Few /LPF 04/07/2016 [facility] URINE AND STOOL UA WBC >100 /HPF 0 - 5 04/07/2016 [facility] URINE AND STOOL UA Bacteria Many /HPF None Seen /HPF 04/07/2016 [facility] URINE AND STOOL UA RBC 21-50 /HPF 0 - 2 04/07/2016 [facility] CARDIAC ENZYMES Troponin-I null 0.00 - 0.40 04/07/2016 [facility] CARDIAC ENZYMES Total CK 91 unit/L 12 - 191 04/07/2016 [facility] CHEM PANEL Lactic Acid Lvl 1.9 mMol/L 0.5 - 2.2 04/07/2016 [facility] HEMATOLOGY PTT 25.2 s 22.9 - 35.8 04/07/2016 [facility] HEMATOLOGY PT 13.6 s 12.0 - 14.7 04/07/2016 [facility] HEMATOLOGY INR 1.01 0.85 - 1.17 04/07/2016 [facility] HEMATOLOGY Segs-Bands # 3.2 K/CMM 1.5 - 8.1 04/07/2016 [facility] HEMATOLOGY Eosinophils 0.4 % 0.0 - 4.0 04/07/2016 [facility] HEMATOLOGY Basophils 0.3 % 0.0 - 1.0 04/07/2016 [facility] HEMATOLOGY Lymphocytes # 0.4 K/CMM 1.0 - 5.5 04/07/2016 [facility] HEMATOLOGY Lymphocytes 10.7 % 20.0 - 40.0 04/07/2016 [facility] HEMATOLOGY Monocytes 0.7 % 2.0 - 12.0 04/07/2016 [facility] HEMATOLOGY Segs 87.9 % 45.0 - 75.0 04/07/2016 [facility] HEMATOLOGY MPV 8.5 fL 7.4 - 10.4 04/07/2016 [facility] HEMATOLOGY RDW 14.0 % 11.5 - 14.5 04/07/2016 [facility] HEMATOLOGY MCH 30.4 pg 27.0 - 31.0 04/07/2016 [facility] MCHC 32.4 g/dL 32.0 - 36.0 04/07/2016 [facility] HEMATOLOGY MCV 93.8 fL 80.0 - 98.0 04/07/2016 [facility] HEMATOLOGY RBC 4.00 M/CMM 4.20 - 5.40 04/07/2016 [facility] HEMATOLOGY Hgb 12.1 g/dL 12.0 - 16.0 04/07/2016 [facility] HEMATOLOGY WBC 3.6 K/CMM 3.7 - 10.4 04/07/2016 [facility] HEMATOLOGY Hct 37.5 % 36.0 - 48.0 04/07/2016 [facility] CHEM PANEL Procalcitonin Lvl 0.35 ng/mL 0.00 - 0.10 04/07/2016 [facility] CHEM PANEL Alk Phos 142 unit/L 39 - 136 04/07/2016 [facility] CHEM PANEL Bili Total 1.0 mg/dL 0.2 - 1.3 04/07/2016 [facility] CHEM PANEL Globulin 3.6 g/dL 2.7 - 4.2 04/07/2016 [facility] CHEM PANEL ALT 48 unit/L 0 - 65 04/07/2016 [facility] CHEM PANEL A/G Ratio 0.9 0.7 - 1.6 04/07/2016 [facility] CHEM PANEL AST 56 unit/L 0 - 37 04/07/2016 [facility] CHEM PANEL Albumin Lvl 3.3 g/dL 3.5 - 5.0 04/07/2016 [facility] CHEM PANEL Calcium Lvl 9.0 mg/dL 8.5 - 10.5 04/07/2016 [facility] CHEM PANEL AGAP 9.3 meq/L 10.0 - 20.0 04/07/2016 [facility] CHEM PANEL Total Protein 6.9 g/dL 6.4 - 8.4 04/07/2016 [facility] CHEM PANEL B/C Ratio 25 6 - 25 04/07/2016 [facility] CHEM PANEL CO2 24 meq/L 24 - 32 04/07/2016 [facility] CHEM PANEL Chloride Lvl 110 meq/L 95 - 109 04/07/2016 [facility] CHEM PANEL Sodium Lvl 139 meq/L 135 - 145 04/07/2016 [facility] CHEM PANEL Potassium Lvl 4.3 meq/L 3.5 - 5.1 04/07/2016 [facility] CHEM PANEL BUN 45 mg/dL 7 - 22 04/07/2016 [facility] CHEM PANEL Glucose Lvl 117 mg/dL 70 - 99 04/07/2016 [facility] Chest 1view DX Chest 1view DX [...] radiographic evidence of acute cardiopulmonary disease. SL: [id number] 04/07/2016 - - Read by: Stanislav Hutchison MD Dictated Date/time: 04/07/16 07:21 Electronically Signed by: Stanislav Hutchison MD 04/07/16 07:22 FINAL REPORT [facility] CHEM PANEL Calcium Lvl 9.7 mg/dL 8.5 - 10.5 04/06/2016 [facility] CHEM PANEL eGFR 26 mL/min/1.73m2 04/06/2016 [...] should be multiplied by the estimated BMI. [facility] CHEM PANEL Glucose Lvl 189 mg/dL 70 - 99 04/06/2016 [facility] CHEM PANEL Creatinine Lvl 1.77 mg/dL 0.50 - 1.40 04/06/2016 [facility] CHEM PANEL BUN 47 mg/dL 7 - 22 04/06/2016 [facility] CHEM PANEL AGAP 15.1 meq/L 10.0 - 20.0 04/06/2016 [facility] CHEM PANEL Chloride Lvl 112 meq/L 95 - 109 04/06/2016 [facility] CHEM PANEL Potassium Lvl 5.1 meq/L 3.5 - 5.1 04/06/2016 [facility] CHEM PANEL CO2 18 meq/L 24 - 32 04/06/2016 [facility] CHEM PANEL Sodium Lvl 140 meq/L 135 - 145 04/06/2016 [facility] CARDIAC ENZYMES Total CK 103 unit/L 12 - 191 04/06/2016 [facility] CARDIAC ENZYMES CK MB 1.2 ng/mL 0.5 - 3.6 04/06/2016 [facility] CARDIAC ENZYMES Troponin-I null 0.00 - 0.40 04/06/2016 [facility] CARDIAC ENZYMES CK MB Index 1.2 0.0 - 2.5 04/06/2016 [facility] CHEM PANEL eGFR 26 mL/min/1.73m2 04/06/2016 [...] should be multiplied by the estimated BMI. [facility] CHEM PANEL Glucose Lvl 122 mg/dL 70 - 99 04/06/2016 [facility] CHEM PANEL AST 37 unit/L 0 - 37 04/06/2016 [facility] CHEM PANEL Albumin Lvl 3.6 g/dL 3.5 - 5.0 04/06/2016 [facility] CHEM PANEL ALT 31 unit/L 0 - 65 04/06/2016 [facility] CHEM PANEL Calcium Lvl 9.4 mg/dL 8.5 - 10.5 04/06/2016 [facility] CHEM PANEL Total Protein 7.5 g/dL 6.4 - 8.4 04/06/2016 [facility] CHEM PANEL CO2 18 meq/L 24 - 32 04/06/2016 [facility] CHEM PANEL Creatinine Lvl 1.80 mg/dL 0.50 - 1.40 04/06/2016 [facility] CHEM PANEL Chloride Lvl 111 meq/L 95 - 109 04/06/2016 [facility] CHEM PANEL Sodium Lvl 139 meq/L 135 - 145 04/06/2016 [facility] CHEM PANEL Potassium Lvl 5.8 meq/L 3.5 - 5.1 04/06/2016 Result Comment: Specimen is moderately hemolyzed. 04/06/2016 14:35 [facility] CHEM PANEL BUN 50 mg/dL 7 - 22 04/06/2016 [facility] CHEM PANEL B/C Ratio 28 6 - 25 04/06/2016 [facility] CHEM PANEL Globulin 3.9 g/dL 2.7 - 4.2 04/06/2016 [facility] CHEM PANEL A/G Ratio 0.9 0.7 - 1.6 04/06/2016 [facility] CHEM PANEL Bili Total 0.6 mg/dL 0.2 - 1.3 04/06/2016 [facility] CHEM PANEL AGAP 15.8 meq/L 10.0 - 20.0 04/06/2016 [facility] CHEM PANEL Alk Phos 136 unit/L 39 - 136 04/06/2016 [facility] HEMATOLOGY PTT See Note 1 (04/06/16 2:21 PM) 22.9 - 35.8 04/06/2016 Result Comment: The PTT result of 19.4 should be interpreted with caution due to : CLOTTED SAMPLE. Report and correction called to Glenroy Fonseca by Yehuda Smiley at 04/06/2016 14:56. Recollection is recommended. Read Back Ok. [facility] HEMATOLOGY WBC 20.1 K/CMM 3.7 - 10.4 04/06/2016 [facility] MCV 94.9 fL 80.0 - 98.0 04/06/2016 [facility] MCH 30.9 pg 27.0 - 31.0 04/06/2016 [facility] MCHC 32.6 g/dL 32.0 - 36.0 04/06/2016 [facility] RBC 4.29 M/CMM 4.20 - 5.40 04/06/2016 [facility] Hgb 13.3 g/dL 12.0 - 16.0 04/06/2016 [facility] Hct 40.7 % 36.0 - 48.0 04/06/2016 [facility] RDW 14.5 % 11.5 - 14.5 04/06/2016 [facility] Platelet 293 K/CMM 133 - 450 04/06/2016 [facility] MPV 9.1 fL 7.4 - 10.4 04/06/2016 [facility] Eosinophils 0.9 % 0.0 - 4.0 04/06/2016 [facility] Monocytes 7.7 % 2.0 - 12.0 04/06/2016 [facility] Basophils # 0.1 K/CMM 0.0 - 0.2 04/06/2016 [facility] Eosinophils # 0.2 K/CMM 0.0 - 0.5 04/06/2016 [facility] HEMATOLOGY Monocytes # 1.5 K/CMM 0.0 - 0.8 04/06/2016 [facility] Lymphocytes # 2.1 K/CMM 1.0 - 5.5 04/06/2016 [facility] Basophils 0.4 % 0.0 - 1.0 04/06/2016 [facility] Segs-Bands # 16.2 K/CMM 1.5 - 8.1 04/06/2016 [facility] Lymphocytes 10.4 % 20.0 - 40.0 04/06/2016 [facility] Plt Morph Normal (04/06/16 2:21 PM) 04/06/2016 [facility] RBC Morph Normal (04/06/16 2:21 PM) 04/06/2016 [facility] Segs 80.6 % 45.0 - 75.0 04/06/2016 [facility] Chest 1view DX Chest 1view DX Patient Name: GEOVANI ANDERSEN : 1935; Age: 80 years y/o Female MR: [id number] Study: Chest 1view DX dated 04/06/2016 Clinical [...] Ermias Barcenas MD 04/06/16 13:58 FINAL REPORT [facility] Chest 2 views DX Chest 2 [...] Parveen Lira MD 03/16/16 13:19 FINAL REPORT [facility] URINE AND STOOL UA Color Ltyellow 10/01/2015 [facility] URINE AND STOOL UA Urobilinogen <=1.0 mg/dL 0.1 - 1.0 10/01/2015 [facility] URINE AND STOOL UA RBC 7 /HPF 0 - 2 10/01/2015 [facility] URINE AND STOOL UA Blood Small *ABN* (10/01/15 9:38 AM) Negative 10/01/2015 [facility] URINE AND STOOL UA Nitrite Negative (10/01/15 9:38 AM) Negative 10/01/2015 [facility] URINE AND STOOL UA Leuk Est Moderate *ABN* (10/01/15 9:38 AM) Negative 10/01/2015 [facility] URINE AND STOOL UA Sq Epi Occasional /LPF Few /LPF 10/01/2015 [facility] URINE AND STOOL UA WBC 18 /HPF 0 - 5 10/01/2015 [facility] URINE AND STOOL UA Protein Negative mg/dL Negative mg/dL 10/01/2015 [facility] URINE AND STOOL UA Glucose 500 mg/dL Negative mg/dL 10/01/2015 [facility] URINE AND STOOL UA Bili Negative *NA* (10/01/15 9:38 AM) Negative 10/01/2015 [facility] URINE AND STOOL UA Ketones Negative mg/dL Negative mg/dL 10/01/2015 [facility] URINE AND STOOL UA Turbidity Clear (10/01/15 9:38 AM) Clear 10/01/2015 [facility] URINE AND STOOL UA pH 5.0 5.0 - 8.0 10/01/2015 [facility] URINE AND STOOL UA Spec Grav 1.014 <=1.030 10/01/2015 [facility] URINE AND STOOL UA Bacteria Occasional /HPF None Seen /HPF 10/01/2015 [facility] CARDIAC ENZYMES Troponin-I null 0.00 - 0.40 10/01/2015 [facility] CARDIAC ENZYMES Total CK 51 unit/L 12 - 191 10/01/2015 [facility] CARDIAC ENZYMES CK MB 0.8 ng/mL 0.5 - 3.6 10/01/2015 [facility] CARDIAC ENZYMES CK MB Index 1.6 0.0 - 2.5 10/01/2015 [facility] CHEM PANEL A/G Ratio 0.9 0.7 - 1.6 10/01/2015 [facility] CHEM PANEL Globulin 3.5 g/dL 2.0 - 4.0 10/01/2015 [facility] CHEM PANEL eGFR 47 mL/min/1.73m2 10/01/2015 [...] by the estimated BMI. [facility] CHEM PANEL CO2 25 meq/L 24 - 32 10/01/2015 [facility] CHEM PANEL Chloride Lvl 108 meq/L 95 - 109 10/01/2015 [facility] CHEM PANEL Sodium Lvl 141 meq/L 135 - 145 10/01/2015 [facility] CHEM PANEL Potassium Lvl 4.0 meq/L 3.5 - 5.1 10/01/2015 [facility] CHEM PANEL AST 29 unit/L 0 - 37 10/01/2015 [facility] CHEM PANEL AGAP 12.0 meq/L 10.0 - 20.0 10/01/2015 [facility] CHEM PANEL B/C Ratio 22 6 - 25 10/01/2015 [facility] CHEM PANEL Alk Phos 151 unit/L 39 - 136 10/01/2015 [facility] CHEM PANEL Bili Total 0.5 mg/dL 0.2 - 1.3 10/01/2015 [facility] CHEM PANEL Albumin Lvl 3.3 g/dL 3.5 - 5.0 10/01/2015 [facility] CHEM PANEL Total Protein 6.8 g/dL 6.4 - 8.4 10/01/2015 [facility] CHEM PANEL ALT 38 unit/L 0 - 65 10/01/2015 [facility] CHEM PANEL BUN 24 mg/dL 7 - 22 10/01/2015 [facility] CHEM PANEL Creatinine Lvl 1.10 mg/dL 0.50 - 1.40 10/01/2015 [facility] CHEM PANEL Glucose Lvl 120 mg/dL 70 - 99 10/01/2015 [facility] CHEM PANEL Calcium Lvl 9.3 mg/dL 8.5 - 10.5 10/01/2015 [facility] HEMATOLOGY MCV 91.7 fL 80.0 - 98.0 10/01/2015 [facility] HEMATOLOGY MCH 29.9 pg 27.0 - 31.0 10/01/2015 [facility] Hct 40.1 % 36.0 - 48.0 10/01/2015 [facility] HEMATOLOGY RDW 15.0 % 11.5 - 14.5 10/01/2015 [facility] HEMATOLOGY Platelet 288 K/CMM 133 - 450 10/01/2015 [facility] MCHC 32.7 g/dL 32.0 - 36.0 10/01/2015 [facility] MPV 7.9 fL 7.4 - 10.4 10/01/2015 [facility] RBC 4.37 M/CMM 4.20 - 5.40 10/01/2015 [facility] WBC 7.5 K/CMM 3.7 - 10.4 10/01/2015 [facility] Hgb 13.1 g/dL 12.0 - 16.0 10/01/2015 [facility] Basophils # 0.1 K/CMM 0.0 - 0.2 10/01/2015 [facility] Monocytes 7.1 % 2.0 - 12.0 10/01/2015 [facility] Lymphocytes 28.3 % 20.0 - 40.0 10/01/2015 [facility] Basophils 0.7 % 0.0 - 1.0 10/01/2015 [facility] Eosinophils 3.6 % 0.0 - 4.0 10/01/2015 [facility] HEMATOLOGY Segs 60.3 % 45.0 - 75.0 10/01/2015 [facility] Lymphocytes # 2.1 K/CMM 1.0 - 5.5 10/01/2015 [facility] Eosinophils # 0.3 K/CMM 0.0 - 0.5 10/01/2015 [facility] Segs-Bands # 4.5 K/CMM 1.5 - 8.1 10/01/2015 [facility] Monocytes # 0.5 K/CMM 0.0 - 0.8 10/01/2015 [facility] Brain wo contrast CT Brain wo contrast CT Patient Name: GEOVANI ANDERSEN : 1935; Age: 80 years y/o Female MR: [id number] * CRANIAL CT without contrast History:Generalized Weakness; [...] evidence of an acute intracranial process. SL: [id number] 10/01/2015 - - Read by: Nawaf Scott MD Dictated Date/time: 10/01/15 11:26 Electronically Signed by: Nawaf Scott MD 10/01/15 11:30 FINAL REPORT [facility] Chest 1view DX Chest 1view DX CHEST RADIOGRAPH SINGLE VIEW INDICATION: Chest pain COMPARISON: Chest radiograph 09/22/2015 IMPRESSION: The lungs are underinflated. Grossly, no acute intrathoracic abnormalities are visualized. SL:16 10/01/2015 - - Read by: Corey Ramirez MD Dictated Date/time: 10/01/15 09:30 Electronically Signed by: Corey Ramirez MD 10/01/15 09:30 FINAL REPORT [facility] URINE AND STOOL UA Sq Epi Occasional /LPF Few /LPF 09/22/2015 [facility] URINE AND STOOL UA WBC 9 /HPF 0 - 5 09/22/2015 [facility] URINE AND STOOL UA RBC 35 /HPF 0 - 2 09/22/2015 [facility] URINE AND STOOL UA Nitrite Negative (09/22/15 9:21 AM) Negative 09/22/2015 [facility] URINE AND STOOL UA Leuk Est Small *ABN* (09/22/15 9:21 AM) Negative 09/22/2015 [facility] URINE AND STOOL UA Blood Moderate *ABN* (09/22/15 9:21 AM) Negative 09/22/2015 [facility] URINE AND STOOL UA Urobilinogen <=1.0 mg/dL 0.1 - 1.0 09/22/2015 [facility] URINE AND STOOL UA Bili Negative *NA* (09/22/15 9:21 AM) Negative 09/22/2015 [facility] URINE AND STOOL UA Ketones Negative mg/dL Negative mg/dL 09/22/2015 [facility] URINE AND STOOL UA Protein Negative mg/dL Negative mg/dL 09/22/2015 [facility] URINE AND STOOL UA pH 5.0 5.0 - 8.0 09/22/2015 [facility] URINE AND STOOL UA Glucose 500 mg/dL Negative mg/dL 09/22/2015 [facility] URINE AND STOOL UA Turbidity Slight *ABN* (09/22/15 9:21 AM) Clear 09/22/2015 [facility] URINE AND STOOL UA Spec Grav 1.018 <=1.030 09/22/2015 [facility] URINE AND STOOL UA Color Yellow *NA* (09/22/15 9:21 AM) Yellow 09/22/2015 [facility] CHEM PANEL Phosphorus 2.5 mg/dL 2.5 - 4.5 09/22/2015 [facility] CHEM PANEL Magnesium Lvl 2.3 mg/dL 1.8 - 2.4 09/22/2015 [facility] CHEM PANEL Alk Phos 122 unit/L 39 - 136 09/22/2015 [facility] CHEM PANEL Sodium Lvl 137 meq/L 135 - 145 09/22/2015 [facility] CHEM PANEL Potassium Lvl 4.7 meq/L 3.5 - 5.1 09/22/2015 [facility] CHEM PANEL Calcium Lvl 8.6 mg/dL 8.5 - 10.5 09/22/2015 [facility] CHEM PANEL CO2 25 meq/L 24 - 32 09/22/2015 [facility] CHEM PANEL Albumin Lvl 3.1 g/dL 3.5 - 5.0 09/22/2015 [facility] CHEM PANEL Total Protein 6.4 g/dL 6.4 - 8.4 09/22/2015 [facility] CHEM PANEL AST 32 unit/L 0 - 37 09/22/2015 [facility] CHEM PANEL ALT 44 unit/L 0 - 65 09/22/2015 [facility] CHEM PANEL Glucose Lvl 195 mg/dL 70 - 99 09/22/2015 [facility] CHEM PANEL Creatinine Lvl 1.31 mg/dL 0.50 - 1.40 09/22/2015 [facility] CHEM PANEL Chloride Lvl 108 meq/L 95 - 109 09/22/2015 [facility] CHEM PANEL BUN 41 mg/dL 7 - 22 09/22/2015 [facility] CHEM PANEL eGFR 38 mL/min/1.73m2 09/22/2015 Result [...] should be multiplied by the estimated BMI. [facility] CHEM PANEL Bili Total 0.6 mg/dL 0.2 - 1.3 09/22/2015 [facility] CHEM PANEL Globulin 3.3 g/dL 2.0 - 4.0 09/22/2015 [facility] CHEM PANEL A/G Ratio 0.9 0.7 - 1.6 09/22/2015 [facility] CHEM PANEL AGAP 8.7 meq/L 10.0 - 20.0 09/22/2015 [facility] CHEM PANEL B/C Ratio 31 6 - 25 09/22/2015 [facility] Monocytes # 0.4 K/CMM 0.0 - 0.8 09/22/2015 [facility] HEMATOLOGY Monocytes 4.0 % 2.0 - 12.0 09/22/2015 [facility] Basophils 0.3 % 0.0 - 1.0 09/22/2015 [facility] HEMATOLOGY Eosinophils 0.2 % 0.0 - 4.0 09/22/2015 [facility] Segs-Bands # 8.2 K/CMM 1.5 - 8.1 09/22/2015 [facility] Lymphocytes # 0.5 K/CMM 1.0 - 5.5 09/22/2015 [facility] Lymphocytes 5.8 % 20.0 - 40.0 09/22/2015 [facility] HEMATOLOGY Segs 89.7 % 45.0 - 75.0 09/22/2015 [facility] PTT 32.2 s 22.9 - 35.8 09/22/2015 [facility] PT 14.6 s 12.0 - 14.7 09/22/2015 [facility] INR 1.11 0.85 - 1.17 09/22/2015 [facility] Platelet 211 K/CMM 133 - 450 09/22/2015 [facility] MPV 8.5 fL 7.4 - 10.4 09/22/2015 [facility] MCHC 32.8 g/dL 32.0 - 36.0 09/22/2015 [facility] RDW 14.8 % 11.5 - 14.5 09/22/2015 [facility] RBC 4.80 M/CMM 4.20 - 5.40 09/22/2015 [facility] Hgb 14.4 g/dL 12.0 - 16.0 09/22/2015 [facility] WBC 9.1 K/CMM 3.7 - 10.4 09/22/2015 [facility] MCV 91.7 fL 80.0 - 98.0 09/22/2015 [facility] MCH 30.0 pg 27.0 - 31.0 09/22/2015 [facility] Hct 44.0 % 36.0 - 48.0 09/22/2015 [facility] Abdomen/Pelvis wo IV contrast CT Abdomen/Pelvis [...] CT of the abdomen and pelvis. SL: [id number] 09/22/2015 - - Read by: Casper Pino MD Dictated Date/time: 09/22/15 09:41 Electronically Signed by: Casper Pino MD 09/22/15 10:44 FINAL REPORT [facility] Chest 1view DX Chest 1view DX Study: Chest 1view DX Clinical Indication: Coughing Comparison: 02/27/2015 FINDINGS: Cardiac silhouette is normal in size. Mild left basilar atelectasis is seen. No pleural effusion or pneumothorax is noted. The osseous structures are unremarkable. IMPRESSION: Mild left basilar atelectasis SL: [id number] 09/22/2015 - - Read by: Shady Young MD Dictated Date/time: 09/22/15 09:07 Electronically Signed by: Shady Young MD 09/22/15 09:07 FINAL REPORT [facility] CHEM PANEL eGFR 30 mL/min/1.73m2 05/02/2015 [...] should be multiplied by the estimated BMI. [facility] CHEM PANEL Bili Total 0.5 mg/dL 0.2 - 1.3 05/02/2015 [facility] CHEM PANEL Alk Phos 122 unit/L 39 - 136 05/02/2015 [facility] CHEM PANEL A/G Ratio 0.9 0.7 - 1.6 05/02/2015 [facility] CHEM PANEL ALT 39 unit/L 0 - 65 05/02/2015 [facility] CHEM PANEL AST 39 unit/L 0 - 37 05/02/2015 [facility] CHEM PANEL Globulin 3.6 g/dL 2.0 - 4.0 05/02/2015 [facility] CHEM PANEL Albumin Lvl 3.4 g/dL 3.5 - 5.0 05/02/2015 [facility] CHEM PANEL Total Protein 7.0 g/dL 6.4 - 8.4 05/02/2015 [facility] CHEM PANEL B/C Ratio 31 6 - 25 05/02/2015 [facility] CHEM PANEL AGAP 11.9 meq/L 10.0 - 20.0 05/02/2015 [facility] CHEM PANEL CO2 21 meq/L 24 - 32 05/02/2015 [facility] CHEM PANEL Creatinine Lvl 1.6 mg/dL 0.5 - 1.4 05/02/2015 [facility] CHEM PANEL BUN 49 mg/dL 7 - 22 05/02/2015 [facility] CHEM PANEL Glucose Lvl 98 mg/dL 70 - 99 05/02/2015 [facility] CHEM PANEL Sodium Lvl 141 meq/L 135 - 145 05/02/2015 [facility] CHEM PANEL Chloride Lvl 114 meq/L 95 - 109 05/02/2015 [facility] CHEM PANEL Calcium Lvl 9.2 mg/dL 8.5 - 10.5 05/02/2015 [facility] CHEM PANEL Potassium Lvl 5.9 meq/L 3.5 - 5.1 05/02/2015 Result Comment: Slight hemolysis present. [facility] HEMATOLOGY Eosinophils # 0.2 K/CMM 0.0 - 0.5 05/02/2015 [facility] HEMATOLOGY Basophils # 0.1 K/CMM 0.0 - 0.2 05/02/2015 [facility] HEMATOLOGY Lymphocytes # 2.4 K/CMM 1.0 - 5.5 05/02/2015 [facility] HEMATOLOGY Monocytes # 0.6 K/CMM 0.0 - 0.8 05/02/2015 [facility] HEMATOLOGY Segs 59.8 % 45.0 - 75.0 05/02/2015 [facility] HEMATOLOGY Lymphocytes 30.2 % 20.0 - 40.0 05/02/2015 [facility] HEMATOLOGY Monocytes 7.1 % 2.0 - 12.0 05/02/2015 [facility] HEMATOLOGY Eosinophils 2.0 % 0.0 - 4.0 05/02/2015 [facility] HEMATOLOGY Basophils 0.9 % 0.0 - 1.0 05/02/2015 [facility] HEMATOLOGY Segs-Bands # 4.8 K/CMM 1.5 - 8.1 05/02/2015 [facility] HEMATOLOGY MPV 8.6 fL 7.4 - 10.4 05/02/2015 [facility] HEMATOLOGY MCV 96.6 fL 80.0 - 98.0 05/02/2015 [facility] HEMATOLOGY Hgb 13.4 g/dL 12.0 - 16.0 05/02/2015 [facility] HEMATOLOGY RBC 4.36 M/CMM 4.20 - 5.40 05/02/2015 [facility] HEMATOLOGY WBC 8.0 K/CMM 3.7 - 10.4 05/02/2015 [facility] HEMATOLOGY MCHC 31.9 g/dL 32.0 - 36.0 05/02/2015 [facility] HEMATOLOGY RDW 15.3 % 11.5 - 14.5 05/02/2015 [facility] HEMATOLOGY Hct 42.1 % 36.0 - 48.0 05/02/2015 [facility] HEMATOLOGY Platelet 230 K/CMM 133 - 450 05/02/2015 [facility] HEMATOLOGY MCH 30.8 pg 27.0 - 31.0 05/02/2015 [facility] HEMATOLOGY INR 1.02 0.85 - 1.17 05/02/2015 [facility] HEMATOLOGY PTT 34.8 s 22.9 - 35.8 05/02/2015 [facility] HEMATOLOGY PT 13.7 s 12.0 - 14.7 05/02/2015 [facility] ELECTROLYTES AGAP 13.3 meq/L 10.0 - 20.0 02/28/2015 [facility] ELECTROLYTES Sodium Lvl 141 meq/L 135 - 145 02/28/2015 [facility] ELECTROLYTES BUN 32 mg/dL 7 - 22 02/28/2015 [facility] ELECTROLYTES Creatinine Lvl 1.2 mg/dL 0.5 - 1.4 02/28/2015 [facility] ELECTROLYTES Glucose Lvl 201 mg/dL 70 - 99 02/28/2015 [facility] ELECTROLYTES Potassium Lvl 4.3 meq/L 3.5 - 5.1 02/28/2015 [facility] ELECTROLYTES CO2 23 meq/L 24 - 32 02/28/2015 [facility] ELECTROLYTES Calcium Lvl 9.4 mg/dL 8.5 - 10.5 02/28/2015 [facility] ELECTROLYTES Chloride Lvl 109 meq/L 95 - 109 02/28/2015 [facility] ELECTROLYTES eGFR 42 mL/min/1.73m2 02/28/2015 Result [...] should be multiplied by the estimated BMI. [facility] Lymphocytes # 1.2 K/CMM 1.0 - 5.5 02/28/2015 [facility] Monocytes # 0.6 K/CMM 0.0 - 0.8 02/28/2015 [facility] Basophils 0.1 % 0.0 - 1.0 02/28/2015 [facility] Monocytes 4.7 % 2.0 - 12.0 02/28/2015 [facility] Segs-Bands # 11.8 K/CMM 1.5 - 8.1 02/28/2015 [facility] Segs 86.7 % 45.0 - 75.0 02/28/2015 [facility] Lymphocytes 8.5 % 20.0 - 40.0 02/28/2015 [facility] MCHC 33.0 g/dL 32.0 - 36.0 02/28/2015 [facility] MCH 31.0 pg 27.0 - 31.0 02/28/2015 [facility] MPV 8.3 fL 7.4 - 10.4 02/28/2015 [facility] Platelet 246 K/CMM 133 - 450 02/28/2015 [facility] RDW 14.3 % 11.5 - 14.5 02/28/2015 [facility] Hct 39.5 % 36.0 - 48.0 02/28/2015 [facility] HEMATOLOGY Hgb 13.0 g/dL 12.0 - 16.0 02/28/2015 [facility] HEMATOLOGY RBC 4.19 M/CMM 4.20 - 5.40 02/28/2015 [facility] HEMATOLOGY MCV 94.2 fL 80.0 - 98.0 02/28/2015 [facility] HEMATOLOGY WBC 13.6 K/CMM 3.7 - 10.4 02/28/2015 [facility] CARDIAC ENZYMES Total CK 135 unit/L 12 - 191 02/28/2015 [facility] CARDIAC ENZYMES Troponin-I null 0.00 - 0.40 02/28/2015 [facility] CARDIAC ENZYMES CK MB 1.7 ng/mL 0.5 - 3.6 02/28/2015 [facility] CARDIAC ENZYMES CK MB Index 1.3 0.0 - 2.5 02/28/2015 [facility] CARDIAC ENZYMES Total CK 143 unit/L 12 - 191 02/27/2015 [facility] CARDIAC ENZYMES CK MB 1.6 ng/mL 0.5 - 3.6 02/27/2015 [facility] CARDIAC ENZYMES Troponin-I null 0.00 - 0.40 02/27/2015 [facility] CARDIAC ENZYMES CK MB Index 1.1 0.0 - 2.5 02/27/2015 [facility] CARDIAC ENZYMES Troponin-I null 0.00 - 0.40 02/27/2015 [facility] CARDIAC ENZYMES Total CK 96 unit/L 12 - 191 02/27/2015 [facility] CARDIAC ENZYMES CK MB 1.5 ng/mL 0.5 - 3.6 02/27/2015 [facility] CARDIAC ENZYMES CK MB Index 1.6 0.0 - 2.5 02/27/2015 [facility] CARDIAC ENZYMES BNP 46 pg/mL <=100 pg/mL 02/27/2015 [facility] CHEM PANEL Calcium Lvl 9.0 mg/dL 8.5 - 10.5 02/27/2015 [facility] CHEM PANEL Sodium Lvl 143 meq/L 135 - 145 02/27/2015 [facility] CHEM PANEL Chloride Lvl 111 meq/L 95 - 109 02/27/2015 [facility] CHEM PANEL Potassium Lvl 4.1 meq/L 3.5 - 5.1 02/27/2015 [facility] CHEM PANEL eGFR 39 mL/min/1.73m2 02/27/2015 [...] should be multiplied by the estimated BMI. [facility] CHEM PANEL Creatinine Lvl 1.3 mg/dL 0.5 - 1.4 02/27/2015 [facility] CHEM PANEL CO2 22 meq/L 24 - 32 02/27/2015 [facility] CHEM PANEL Glucose Lvl 178 mg/dL 70 - 99 02/27/2015 [facility] CHEM PANEL BUN 34 mg/dL 7 - 22 02/27/2015 [facility] CHEM PANEL A/G Ratio 1.0 0.7 - 1.6 02/27/2015 [facility] CHEM PANEL Bili Total 0.3 mg/dL 0.2 - 1.3 02/27/2015 [facility] CHEM PANEL AGAP 14.1 meq/L 10.0 - 20.0 02/27/2015 [facility] CHEM PANEL B/C Ratio 26 6 - 25 02/27/2015 [facility] CHEM PANEL Globulin 3.6 g/dL 2.0 - 4.0 02/27/2015 [facility] CHEM PANEL AST 37 unit/L 0 - 37 02/27/2015 [facility] CHEM PANEL Alk Phos 190 unit/L 39 - 136 02/27/2015 [facility] CHEM PANEL Total Protein 7.2 g/dL 6.4 - 8.4 02/27/2015 [facility] CHEM PANEL Albumin Lvl 3.6 g/dL 3.5 - 5.0 02/27/2015 [facility] CHEM PANEL ALT 38 unit/L 0 - 65 02/27/2015 [facility] HEMATOLOGY Eosinophils # 0.2 K/CMM 0.0 - 0.5 02/27/2015 [facility] HEMATOLOGY Basophils # 0.1 K/CMM 0.0 - 0.2 02/27/2015 [facility] HEMATOLOGY Segs-Bands # 6.3 K/CMM 1.5 - 8.1 02/27/2015 [facility] HEMATOLOGY Basophils 0.9 % 0.0 - 1.0 02/27/2015 [facility] Monocytes # 0.8 K/CMM 0.0 - 0.8 02/27/2015 [facility] Lymphocytes # 2.3 K/CMM 1.0 - 5.5 02/27/2015 [facility] Lymphocytes 23.8 % 20.0 - 40.0 02/27/2015 [facility] Monocytes 7.9 % 2.0 - 12.0 02/27/2015 [facility] Eosinophils 2.1 % 0.0 - 4.0 02/27/2015 [facility] Segs 65.3 % 45.0 - 75.0 02/27/2015 [facility] WBC 9.6 K/CMM 3.7 - 10.4 02/27/2015 [facility] RBC 4.68 M/CMM 4.20 - 5.40 02/27/2015 [facility] MPV 8.2 fL 7.4 - 10.4 02/27/2015 [facility] Platelet 289 K/CMM 133 - 450 02/27/2015 [facility] MCV 93.8 fL 80.0 - 98.0 02/27/2015 [facility] Hgb 14.7 g/dL 12.0 - 16.0 02/27/2015 [facility] Hct 43.9 % 36.0 - 48.0 02/27/2015 [facility] MCHC 33.5 g/dL 32.0 - 36.0 02/27/2015 [facility] RDW 14.2 % 11.5 - 14.5 02/27/2015 [facility] MCH 31.4 pg 27.0 - 31.0 02/27/2015 [facility] PTT 38.0 s 22.9 - 35.8 02/27/2015 [facility] INR 0.94 0.85 - 1.17 02/27/2015 [facility] PT 12.5 s 12.0 - 14.7 02/27/2015 [facility] Chest 1view DX Chest 1view DX CHEST RADIOGRAPH SINGLE VIEW INDICATION: Dyspnea COMPARISON: Chest radiograph 10/10/2014 IMPRESSION: No acute intrathoracic abnormalities are visualized. SL: 16 02/27/2015 - - Read by: Corey Ramirez MD Dictated Date/time: 02/27/15 02:53 Electronically Signed by: Corey Ramirez MD 02/27/15 02:55 FINAL REPORT [facility] CARDIAC ENZYMES CK MB Index 0.8 0.0 - 2.5 10/10/2014 [facility] CARDIAC ENZYMES Total CK 108 unit/L 12 - 191 10/10/2014 [facility] CARDIAC ENZYMES CK MB 0.9 ng/mL 0.5 - 3.6 10/10/2014 [facility] CARDIAC ENZYMES Troponin-I null 0.00 - 0.40 10/10/2014 [facility] CARDIAC ENZYMES BNP 61 pg/mL <=100 pg/mL 10/10/2014 3Interpretive Data: Elevated results are in line with increasing severity of congestive heart failure. Minor elevations between 100 and 300 may be seen with Myocardial Ischemia, Sodium retaining drugs, and compensated/treated heart failure. [facility] ELECTROLYTES Chloride Lvl 108 meq/L 95 - 109 10/10/2014 [facility] ELECTROLYTES Sodium Lvl 140 meq/L 135 - 145 10/10/2014 [facility] ELECTROLYTES Potassium Lvl 4.6 meq/L 3.5 - 5.1 10/10/2014 [facility] ELECTROLYTES Globulin 4.1 g/dL 2.0 - 4.0 10/10/2014 [facility] ELECTROLYTES A/G Ratio 0.8 0.7 - 1.6 10/10/2014 [facility] ELECTROLYTES eGFR 47 mL/min/1.73m2 10/10/2014 1Result [...] should be multiplied by the estimated BMI. [facility] ELECTROLYTES Calcium Lvl 8.7 mg/dL 8.5 - 10.5 10/10/2014 [facility] ELECTROLYTES Total Protein 7.4 g/dL 6.4 - 8.4 10/10/2014 [facility] ELECTROLYTES AST 44 unit/L 0 - 37 10/10/2014 [facility] ELECTROLYTES Albumin Lvl 3.3 g/dL 3.5 - 5.0 10/10/2014 [facility] ELECTROLYTES ALT 31 unit/L 0 - 65 10/10/2014 [facility] ELECTROLYTES Creatinine Lvl 1.1 mg/dL 0.5 - 1.4 10/10/2014 [facility] ELECTROLYTES BUN 17 mg/dL 7 - 22 10/10/2014 [facility] ELECTROLYTES CO2 25 meq/L 24 - 32 10/10/2014 [facility] ELECTROLYTES Glucose Lvl 134 mg/dL 70 - 99 10/10/2014 2Interpretive Data: Adult reference range values reflect the clinical guidelines of the [place] [employer]. [facility] ELECTROLYTES Alk Phos 143 unit/L 39 - 136 10/10/2014 [facility] ELECTROLYTES Bili Total 0.6 mg/dL 0.2 - 1.3 10/10/2014 [facility] ELECTROLYTES AGAP 11.6 meq/L 10.0 - 20.0 10/10/2014 [facility] ELECTROLYTES B/C Ratio 15 6 - 25 10/10/2014 [facility] HEMATOLOGY Basophils # 0.1 K/CMM 0.0 - 0.2 10/10/2014 [facility] HEMATOLOGY Eosinophils # 0.2 K/CMM 0.0 - 0.5 10/10/2014 [facility] HEMATOLOGY Monocytes # 0.5 K/CMM 0.0 - 0.8 10/10/2014 [facility] HEMATOLOGY Segs-Bands # 4.5 K/CMM 1.5 - 8.1 10/10/2014 [facility] HEMATOLOGY Lymphocytes # 2.2 K/CMM 1.0 - 5.5 10/10/2014 [facility] HEMATOLOGY Basophils 0.9 % 0.0 - 1.0 10/10/2014 [facility] HEMATOLOGY Monocytes 6.4 % 2.0 - 12.0 10/10/2014 [facility] HEMATOLOGY Eosinophils 2.0 % 0.0 - 4.0 10/10/2014 [facility] HEMATOLOGY Segs 61.1 % 45.0 - 75.0 10/10/2014 [facility] HEMATOLOGY Lymphocytes 29.6 % 20.0 - 40.0 10/10/2014 [facility] HEMATOLOGY PT 12.7 s 12.0 - 14.7 10/10/2014 [facility] HEMATOLOGY PTT 36.4 s 22.9 - 35.8 10/10/2014 5Interpretive Data: Heparin Therapeutic Range: 57 - 92 Seconds [facility] HEMATOLOGY INR 0.95 0.85 - 1.17 10/10/2014 4Interpretive Data: RECOMMENDED RANGES FOR PROTIME INR: 2.0-3.0 for most medical and surgical thromboembolic states. 2.5-3.5 for artificial heart valves and recurrent embolism. INR SHOULD BE USED ONLY FOR PATIENTS ON STABLE ANTICOAGULANT THERAPY. [facility] MCH 30.9 pg 27.0 - 31.0 10/10/2014 [facility] MCHC 32.7 g/dL 32.0 - 36.0 10/10/2014 [facility] RDW 14.1 % 11.5 - 14.5 10/10/2014 [facility] Platelet 249 K/CMM 133 - 450 10/10/2014 [facility] MPV 8.4 fL 7.4 - 10.4 10/10/2014 [facility] Hgb 14.5 g/dL 12.0 - 16.0 10/10/2014 [facility] Hct 44.4 % 36.0 - 48.0 10/10/2014 [facility] WBC 7.4 K/CMM 3.7 - 10.4 10/10/2014 [facility] RBC 4.70 M/CMM 4.20 - 5.40 10/10/2014 [facility] MCV 94.4 fL 80.0 - 98.0 10/10/2014 [facility] Chest 1view DX Chest 1view DX [...] Marquez Wallace MD 10/10/14 12:12 FINAL REPORT [facility] Knee 4+ views unilateral DX Knee [...] Baljit Lr MD 08/22/14 19:53 FINAL REPORT [facility] CARDIAC ENZYMES CK MB Index 1.3 0.0 - 2.5 05/16/2014 [facility] CARDIAC ENZYMES Troponin-I null 0.00 - 0.40 05/16/2014 [facility] CARDIAC ENZYMES CK MB 1.4 ng/mL 0.5 - 3.6 05/16/2014 [facility] CARDIAC ENZYMES Total CK 104 unit/L 12 - 191 05/16/2014 [facility] CHEM PANEL eGFR 48 mL/min/1.73m2 05/16/2014 [...] should be multiplied by the estimated BMI. [facility] CHEM PANEL Glucose Lvl 173 mg/dL 70 - 99 05/16/2014 2Interpretive Data: Adult reference range values reflect the clinical guidelines of the [place] [employer]. [facility] CHEM PANEL Sodium Lvl 142 meq/L 135 - 145 05/16/2014 [facility] CHEM PANEL Chloride Lvl 109 meq/L 95 - 109 05/16/2014 [facility] CHEM PANEL Potassium Lvl 4.3 meq/L 3.5 - 5.1 05/16/2014 [facility] CHEM PANEL Creatinine Lvl 1.1 mg/dL 0.5 - 1.4 05/16/2014 [facility] CHEM PANEL BUN 30 mg/dL 7 - 22 05/16/2014 [facility] CHEM PANEL Albumin Lvl 3.5 g/dL 3.5 - 5.0 05/16/2014 [facility] CHEM PANEL Calcium Lvl 9.0 mg/dL 8.5 - 10.5 05/16/2014 [facility] CHEM PANEL CO2 24 meq/L 24 - 32 05/16/2014 [facility] CHEM PANEL B/C Ratio 27 6 - 25 05/16/2014 [facility] CHEM PANEL AGAP 13.3 meq/L 10.0 - 20.0 05/16/2014 [facility] CHEM PANEL Globulin 3.7 g/dL 2.0 - 4.0 05/16/2014 [facility] CHEM PANEL A/G Ratio 0.9 0.7 - 1.6 05/16/2014 [facility] CHEM PANEL ALT 48 unit/L 0 - 65 05/16/2014 [facility] CHEM PANEL Total Protein 7.2 g/dL 6.4 - 8.4 05/16/2014 [facility] CHEM PANEL Alk Phos 164 unit/L 39 - 136 05/16/2014 [facility] CHEM PANEL AST 36 unit/L 0 - 37 05/16/2014 [facility] CHEM PANEL Bili Total 0.5 mg/dL 0.2 - 1.3 05/16/2014 [facility] HEMATOLOGY Segs-Bands # 9.8 K/CMM 1.5 - 8.1 05/16/2014 [facility] HEMATOLOGY Lymphocytes # 2.5 K/CMM 1.0 - 5.5 05/16/2014 [facility] HEMATOLOGY Eosinophils # 0.2 K/CMM 0.0 - 0.5 05/16/2014 [facility] HEMATOLOGY Basophils # 0.1 K/CMM 0.0 - 0.2 05/16/2014 [facility] HEMATOLOGY Monocytes # 0.8 K/CMM 0.0 - 0.8 05/16/2014 [facility] HEMATOLOGY Monocytes 6.1 % 2.0 - 12.0 05/16/2014 [facility] HEMATOLOGY Eosinophils 1.1 % 0.0 - 4.0 05/16/2014 [facility] HEMATOLOGY Basophils 0.8 % 0.0 - 1.0 05/16/2014 [facility] HEMATOLOGY Segs 73.3 % 45.0 - 75.0 05/16/2014 [facility] HEMATOLOGY Lymphocytes 18.7 % 20.0 - 40.0 05/16/2014 [facility] HEMATOLOGY D-Dimer 0.46 ug/mL FEU 05/16/2014 4Interpretive Data: In DIC, quantitative D-Dimer is generally greater than 0.66 ug/mL FEU. Values of quantitative D-Dimer less than 0.40 ug/mL FEU have been reported to be associated with a low probability of deep vein thrombosis/pulmonary embolism. This test alone should not be used to rule out DVT/PE. [facility] HEMATOLOGY PTT 35.5 s 22.9 - 35.8 05/16/2014 5Interpretive Data: Heparin Therapeutic Range: 57 - 92 Seconds [facility] PT 12.8 s 12.0 - 14.7 05/16/2014 [facility] INR 0.96 0.85 - 1.17 05/16/2014 3Interpretive Data: RECOMMENDED RANGES FOR PROTIME INR: 2.0-3.0 for most medical and surgical thromboembolic states. 2.5-3.5 for artificial heart valves and recurrent embolism. INR SHOULD BE USED ONLY FOR PATIENTS ON STABLE ANTICOAGULANT THERAPY. [facility] RDW 14.1 % 11.5 - 14.5 05/16/2014 [facility] MPV 8.1 fL 7.4 - 10.4 05/16/2014 [facility] Platelet 344 K/CMM 133 - 450 05/16/2014 [facility] MCV 94.2 fL 80.0 - 98.0 05/16/2014 [facility] MCH 30.6 pg 27.0 - 31.0 05/16/2014 [facility] MCHC 32.4 g/dL 32.0 - 36.0 05/16/2014 [facility] RBC 4.68 M/CMM 4.20 - 5.40 05/16/2014 [facility] Hct 44.1 % 36.0 - 48.0 05/16/2014 [facility] Hgb 14.3 g/dL 12.0 - 16.0 05/16/2014 [facility] WBC 13.4 K/CMM 3.7 - 10.4 05/16/2014 [facility] Chest w contrast CT Chest w [...] Steven Cortes MD 05/16/14 16:45 FINAL REPORT [facility] Chest 1view Chest 1view HISTORY: Shortness of breath. Portable chest one view. Comparison 01/07/2013 Lungs are clear. Heart size normal. There is no pleural effusion or pneumothorax. IMPRESSION: No acute finding SL:13 05/16/2014 - - Read by: Maikel Han MD Dictated Date/time: 05/16/14 13:12 Electronically Signed by: Maikel Han MD 05/16/14 13:12 FINAL REPORT [facility] BEDSIDE GLUCOSE TESTING Comment1 Assess patient 01/09/2013 NA [facility] BEDSIDE GLUCOSE TESTING Gluc POC Lifscn null 70 - 99 01/09/2013 CRIT 1Interpretive Data: Upper Reportable Limit: 200 mg/dL. [facility] BEDSIDE GLUCOSE TESTING Comment2 Repeat test 01/09/2013 NA [facility] BEDSIDE GLUCOSE TESTING Comment3 Notify RN/ 01/09/2013 [facility] BEDSIDE GLUCOSE TESTING Comment2 Notify RN/ 01/09/2013 [facility] BEDSIDE GLUCOSE TESTING Comment1 Assess patient 01/09/2013 NA [facility] BEDSIDE GLUCOSE TESTING Gluc POC Lifscn null 70 - 99 01/09/2013 CRIT 2Interpretive Data: Upper Reportable Limit: 200 mg/dL. [facility] BEDSIDE GLUCOSE TESTING Comment1 Notify RN/ 01/09/2013 [facility] BEDSIDE GLUCOSE TESTING Gluc POC Lifscn 310 mg/dL 70 - 99 01/09/2013 [place] 3Interpretive Data: Upper Reportable Limit: 200 mg/dL. [facility] CHEMISTRY Glucose Lvl 521 mg/dL 70 - 99 01/09/2013 CRIT 7Result Comment: Critical Result(s) called to Yehuda Doll at 01/09/2013 04:26 by lt. Read back OK. [facility] CHEMISTRY AGAP 15.1 meq/L 10.0 - 20.0 01/09/2013 Normal [facility] CHEMISTRY CO2 25 meq/L 24 - 32 01/09/2013 Normal [facility] CHEMISTRY BUN 29 mg/dL 7 - 22 01/09/2013 [facility] CHEMISTRY Glucose Lvl 538 mg/dL 70 - 99 01/09/2013 CRIT 9Interpretive Data: Adult reference range values reflect the clinical guidelines of the [place] [employer]. [facility] CHEMISTRY eGFR 33 mL/min/1.73m2 01/09/2013 NA [...] should be multiplied by the estimated BMI. [facility] CHEMISTRY Calcium Lvl 8.8 mg/dL 8.5 - 10.5 01/09/2013 Normal [facility] CHEMISTRY Chloride Lvl 102 meq/L 95 - 109 01/09/2013 Normal [facility] CHEMISTRY Potassium Lvl 4.1 meq/L 3.5 - 5.1 01/09/2013 Normal [facility] CHEMISTRY Sodium Lvl 138 meq/L 135 - 145 01/09/2013 Normal [facility] CHEMISTRY Creatinine Lvl 1.5 mg/dL 0.5 - 1.4 01/09/2013 [facility] HEMATOLOGY MPV 8.7 fL 7.4 - 10.4 01/09/2013 Normal [facility] HEMATOLOGY RBC 3.66 M/CMM 4.20 - 5.40 01/09/2013 LOW [facility] HEMATOLOGY MCV 97.3 fL 81.0 - 99.0 01/09/2013 Normal [facility] HEMATOLOGY MCH 34.5 pg 27.0 - 31.0 01/09/2013 [facility] HEMATOLOGY Hgb 12.6 g/dL 12.0 - 16.0 01/09/2013 Normal [facility] HEMATOLOGY Hct 35.6 % 36.0 - 48.0 01/09/2013 LOW [facility] HEMATOLOGY Platelet 245 K/CMM 133 - 450 01/09/2013 Normal [facility] HEMATOLOGY RDW 14.0 % 11.5 - 14.5 01/09/2013 Normal [facility] HEMATOLOGY MCHC 35.5 g/dL 32.0 - 36.0 01/09/2013 Normal [facility] HEMATOLOGY WBC 11.1 K/CMM 3.7 - 10.4 01/09/2013 HI [facility] HEMATOLOGY Lymphocytes # 0.9 K/CMM 1.0 - 5.5 01/09/2013 LOW [facility] HEMATOLOGY Monocytes # 0.0 K/CMM 0.0 - 0.8 01/09/2013 Normal [facility] HEMATOLOGY Eosinophils # 0.0 K/CMM 0.0 - 0.5 01/09/2013 Normal [facility] HEMATOLOGY Basophils # 0.0 K/CMM 0.0 - 0.2 01/09/2013 Normal [facility] HEMATOLOGY Segs-Bands # 10.2 K/CMM 1.5 - 8.1 01/09/2013 HI [facility] HEMATOLOGY Lymphocytes 7.9 % 20.0 - 40.0 01/09/2013 LOW [facility] HEMATOLOGY Monocytes 0.4 % 2.0 - 12.0 01/09/2013 LOW [facility] HEMATOLOGY Eosinophils 0.0 % 0.0 - 4.0 01/09/2013 Normal [facility] HEMATOLOGY Basophils 0.0 % 0.0 - 1.0 01/09/2013 Normal [facility] HEMATOLOGY Segs 91.7 % 45.0 - 75.0 01/09/2013 [facility] BEDSIDE GLUCOSE TESTING Comment2 Notify RN/ 01/08/2013 NA [facility] CHEMISTRY Glucose Lvl 491 mg/dL 70 - 99 01/08/2013 CRIT 11Interpretive Data: Adult reference range values reflect the clinical guidelines of the [employer]. [facility] Microbiology Gram Stain 01/08/2013 [facility] Microbiology Culture: Respiratory w/Gram Stain 01/08/2013 [facility] CHEMISTRY Lactic Acid Lvl 1.2 mMol/L 0.5 - 2.2 01/08/2013 Normal [facility] Microbiology Culture: Blood 01/08/2013 [facility] Microbiology Culture: Blood 01/08/2013 [facility] CHEMISTRY CK MB Index null 0.0 - 2.5 01/08/2013 Normal [facility] CHEMISTRY CK MB null 0.5 - 3.6 01/08/2013 Normal [facility] CHEMISTRY Sodium Lvl 144 meq/L 135 - 145 01/08/2013 Normal [facility] CHEMISTRY Potassium Lvl 3.9 meq/L 3.5 - 5.1 01/08/2013 Normal [facility] CHEMISTRY Chloride Lvl 106 meq/L 95 - 109 01/08/2013 Normal [facility] CHEMISTRY eGFR 61 mL/min/1.73m2 01/08/2013 NA [...] should be multiplied by the estimated BMI. [facility] CHEMISTRY A/G Ratio 0.9 0.7 - 1.6 01/08/2013 Normal [facility] CHEMISTRY AST 59 unit/L 0 - 37 01/08/2013 HI [facility] CHEMISTRY AGAP 13.9 meq/L 10.0 - 20.0 01/08/2013 Normal [facility] CHEMISTRY Globulin 3.5 g/dL 2.0 - 4.0 01/08/2013 Normal [facility] CHEMISTRY B/C Ratio 20 6 - 25 01/08/2013 Normal [facility] CHEMISTRY Bili Total 0.4 mg/dL 0.2 - 1.3 01/08/2013 Normal [facility] CHEMISTRY Alk Phos 270 unit/L 39 - 136 01/08/2013 HI [facility] CHEMISTRY Albumin Lvl 3.2 g/dL 3.5 - 5.0 01/08/2013 LOW [facility] CHEMISTRY ALT 57 unit/L 0 - 65 01/08/2013 Normal [facility] CHEMISTRY Total Protein 6.7 g/dL 6.4 - 8.4 01/08/2013 Normal [facility] CHEMISTRY CO2 28 meq/L 24 - 32 01/08/2013 Normal [facility] CHEMISTRY BUN 18 mg/dL 7 - 22 01/08/2013 Normal [facility] CHEMISTRY Calcium Lvl 9.0 mg/dL 8.5 - 10.5 01/08/2013 Normal [facility] CHEMISTRY Creatinine Lvl 0.9 mg/dL 0.5 - 1.4 01/08/2013 Normal [facility] CHEMISTRY Total CK 44 unit/L 12 - 191 01/08/2013 Normal [facility] CHEMISTRY Troponin-I null 0.00 - 0.40 01/08/2013 Normal [facility] PT 12.9 s 12.0 - 14.7 01/08/2013 Normal [facility] HEMATOLOGY INR 0.95 0.85 - 1.17 01/08/2013 Normal 13Interpretive Data: RECOMMENDED RANGES FOR PROTIME INR: 2.0-3.0 for most medical and surgical thromboembolic states. 2.5-3.5 for artificial heart valves and recurrent embolism. INR SHOULD BE USED ONLY FOR PATIENTS ON STABLE ANTICOAGULANT THERAPY. [facility] HEMATOLOGY D-Dimer 0.56 ug/mL FEU 01/08/2013 NA 14Interpretive Data: In DIC, quantitative D-Dimer is generally greater than 0.66 ug/mL FEU. Values of quantitative D-Dimer less than 0.40 ug/mL FEU have been reported to be associated with a low probability of deep vein thrombosis/pulmonary embolism. This test alone should not be used to rule out DVT/PE. [facility] HEMATOLOGY PTT 35.4 s 22.9 - 35.8 01/08/2013 Normal 15Interpretive Data: Heparin Therapeutic Range: 57 - 92 Seconds [facility] CHEMISTRY BNP 68 pg/mL <=100 01/08/2013 Normal 12Interpretive Data: Elevated results are in line with increasing severity of congestive heart failure. Minor elevations between 100 and 300 may be seen with Myocardial Ischemia, Sodium retaining drugs, and compensated/treated heart failure. [facility] HEMATOLOGY Monocytes # 0.5 K/CMM 0.0 - 0.8 01/08/2013 Normal [facility] HEMATOLOGY Lymphocytes # 2.3 K/CMM 1.0 - 5.5 01/08/2013 Normal [facility] HEMATOLOGY Basophils 0.7 % 0.0 - 1.0 01/08/2013 Normal [facility] HEMATOLOGY Eosinophils # 0.2 K/CMM 0.0 - 0.5 01/08/2013 Normal [facility] HEMATOLOGY Eosinophils 2.4 % 0.0 - 4.0 01/08/2013 Normal [facility] HEMATOLOGY Segs-Bands # 5.2 K/CMM 1.5 - 8.1 01/08/2013 Normal [facility] Basophils # 0.1 K/CMM 0.0 - 0.2 01/08/2013 Normal [facility] HEMATOLOGY Segs 62.5 % 45.0 - 75.0 01/08/2013 Normal [facility] HEMATOLOGY Lymphocytes 28.2 % 20.0 - 40.0 01/08/2013 Normal [facility] HEMATOLOGY Monocytes 6.2 % 2.0 - 12.0 01/08/2013 Normal [facility] HEMATOLOGY MPV 8.8 fL 7.4 - 10.4 01/08/2013 Normal [facility] HEMATOLOGY Platelet 257 K/CMM 133 - 450 01/08/2013 Normal [facility] HEMATOLOGY WBC 8.3 K/CMM 3.7 - 10.4 01/08/2013 Normal [facility] HEMATOLOGY MCHC 33.7 g/dL 32.0 - 36.0 01/08/2013 Normal [facility] HEMATOLOGY MCH 31.6 pg 27.0 - 31.0 01/08/2013 [facility] HEMATOLOGY RDW 14.9 % 11.5 - 14.5 01/08/2013 [facility] HEMATOLOGY RBC 4.18 M/CMM 4.20 - 5.40 01/08/2013 LOW [facility] HEMATOLOGY Hgb 13.2 g/dL 12.0 - 16.0 01/08/2013 Normal [facility] HEMATOLOGY MCV 93.9 fL 81.0 - 99.0 01/08/2013 Normal [facility] HEMATOLOGY Hct 39.3 % 36.0 - 48.0 01/08/2013 Normal [facility] CHEMISTRY Temp Art 37.0 [place] 01/08/2013 NA [facility] CHEMISTRY Allens Art Positive (01/07/2013 20:25:00) 01/08/2013 Normal [facility] CHEMISTRY FiO2 Art Room Air 01/08/2013 NA [facility] CHEMISTRY Site Art Left Rad (01/07/2013 20:25:00) 01/08/2013 Normal [facility] CHEMISTRY pH Art 7.46 7.35 - 7.45 01/08/2013 [facility] CHEMISTRY HCO3 Art 28 mMol/L 22 - 26 01/08/2013 [facility] CHEMISTRY BE Art 4 mMol/L -2-2 - 2 01/08/2013 [facility] CHEMISTRY pCO2 Art 40 mm[Hg] 35 - 45 01/08/2013 Normal [facility] CHEMISTRY pO2 Art 81 mm[Hg] 80 - 100 01/08/2013 Normal [facility] CHEMISTRY O2 Sat Art 96.5 % 95.0 - 100.0 01/08/2013 Normal [facility] URINALYSIS UA Urobilinogen <=1.0 mg/dL
*NA*
(01/07/2013 20:20:00) <sup> </sup> 0.1 - 1.0 01/08/2013 [facility] URINALYSIS UA WBC null 0 - 5 01/08/2013 Normal [facility] URINALYSIS UA Sq Epi Few /LPF *NA* (01/07/2013 20:20:00) Few 01/08/2013 NA [facility] URINALYSIS UA Leuk Est Negative (01/07/2013 20:20:00) Negative 01/08/2013 Normal [facility] URINALYSIS UA Nitrite Negative (01/07/2013 20:20:00) Negative 01/08/2013 Normal [facility] URINALYSIS UA RBC null 0 - 2 01/08/2013 Normal [facility] URINALYSIS UA Color Ltyellow 01/08/2013 [facility] URINALYSIS UA Ketones Negative mg/dL *NA* (01/07/2013 20:20:00) Negative 01/08/2013 NA [facility] URINALYSIS UA Glucose 50 mg/dL *ABN* (01/07/2013 20:20:00) Negative 01/08/2013 ABN [facility] URINALYSIS UA Protein Negative mg/dL (01/07/2013 20:20:00) Negative 01/08/2013 Normal [facility] URINALYSIS UA Blood Negative (01/07/2013 20:20:00) Negative 01/08/2013 Normal [facility] URINALYSIS UA Bili Negative *NA* (01/07/2013 20:20:00) Negative 01/08/2013 [facility] URINALYSIS UA Turbidity Clear (01/07/2013 20:20:00) Clear 01/08/2013 Normal [facility] URINALYSIS UA pH 6.0 5.0 - 8.0 01/08/2013 Normal [facility] URINALYSIS UA Spec Grav 1.013 <=1.030 01/08/2013 Normal [facility] Chest w contrast CT Chest w [...] Steven Cortes MD 01/08/13 00:18 FINAL REPORT [facility] Chest 2 views Chest 2 views [...] Ermias Barcenas MD 01/07/13 21:03 FINAL REPORT [facility] BEDSIDE GLUCOSE TESTING Comment1 Notify MAXWELL 09/03/2012 NA [facility] BEDSIDE GLUCOSE TESTING Gluc POC Lifscn null 70 - 99 09/03/2012 CRIT 1Interpretive Data: Upper Reportable Limit: 200 mg/dL. [facility] CHEMISTRY Glucose Lvl 428 mg/dL 09/03/2012 CRIT 7Interpretive Data: Adult reference range values reflect the clinical guidelines of the [place] [employer]. [facility] BEDSIDE GLUCOSE TESTING Gluc POC Lifscn null 70 - 99 09/03/2012 CRIT 2Interpretive Data: Upper Reportable Limit: 200 mg/dL. [facility] BEDSIDE GLUCOSE TESTING Gluc POC Lifscn 305 mg/dL 70 - 99 09/03/2012 [place] 3Interpretive Data: Upper Reportable Limit: 200 mg/dL. [facility] CHEMISTRY Potassium Lvl 4.2 meq/L 3.5 - 5.1 09/03/2012 Normal [facility] CHEMISTRY Sodium Lvl 142 meq/L 135 - 145 09/03/2012 Normal [facility] CHEMISTRY Chloride Lvl 105 meq/L 95 - 109 09/03/2012 Normal [facility] CHEMISTRY eGFR 48 mL/min/1.73m2 09/03/2012 NA [...] should be multiplied by the estimated BMI. [facility] CHEMISTRY Calcium Lvl 9.1 mg/dL 8.5 - 10.5 09/03/2012 Normal [facility] CHEMISTRY AGAP 14.2 meq/L 10.0 - 20.0 09/03/2012 Normal [facility] CHEMISTRY CO2 27 meq/L 24 - 32 09/03/2012 Normal [facility] CHEMISTRY BUN 24 mg/dL 7 - 22 09/03/2012 HI [facility] CHEMISTRY Glucose Lvl 296 mg/dL 70 - 99 09/03/2012 [place] 8Interpretive Data: Adult reference range values reflect the clinical guidelines of the [place] [employer]. [facility] CHEMISTRY Creatinine Lvl 1.1 mg/dL 0.5 - 1.4 09/03/2012 Normal [facility] HEMATOLOGY Segs-Bands # 7.7 K/CMM 1.5 - 8.1 09/03/2012 Normal [facility] HEMATOLOGY Basophils 0.2 % 0.0 - 1.0 09/03/2012 Normal [facility] HEMATOLOGY Lymphocytes # 1.2 K/CMM 1.0 - 5.5 09/03/2012 Normal [facility] HEMATOLOGY Eosinophils # 0.0 K/CMM 0.0 - 0.5 09/03/2012 Normal [facility] HEMATOLOGY Eosinophils 0.0 % 0.0 - 4.0 09/03/2012 Normal [facility] HEMATOLOGY Monocytes # 0.1 K/CMM 0.0 - 0.8 09/03/2012 Normal [facility] HEMATOLOGY Monocytes 1.2 % 2.0 - 12.0 09/03/2012 LOW [facility] HEMATOLOGY Lymphocytes 12.9 % 20.0 - 40.0 09/03/2012 LOW [facility] HEMATOLOGY RBC Morph Normal (09/03/2012 05:58:00) 09/03/2012 Normal [facility] HEMATOLOGY Basophils # 0.0 K/CMM 0.0 - 0.2 09/03/2012 Normal [facility] HEMATOLOGY Segs 85.7 % 45.0 - 75.0 09/03/2012 HI [facility] HEMATOLOGY Plt Morph Normal (09/03/2012 05:58:00) 09/03/2012 Normal [facility] HEMATOLOGY MPV 8.1 fL 7.4 - 10.4 09/03/2012 Normal [facility] HEMATOLOGY Platelet 353 K/CMM 133 - 450 09/03/2012 Normal [facility] HEMATOLOGY RDW 13.9 % 11.5 - 14.5 09/03/2012 Normal [facility] HEMATOLOGY RBC 4.24 M/CMM 4.20 - 5.40 09/03/2012 Normal [facility] HEMATOLOGY WBC 9.0 K/CMM 3.7 - 10.4 09/03/2012 Normal [facility] HEMATOLOGY MCHC 33.7 g/dL 32.0 - 36.0 09/03/2012 Normal [facility] HEMATOLOGY MCV 93.2 fL 81.0 - 99.0 09/03/2012 Normal [facility] HEMATOLOGY MCH 31.4 pg 27.0 - 31.0 09/03/2012 HI [facility] HEMATOLOGY Hgb 13.3 g/dL 12.0 - 16.0 09/03/2012 Normal [facility] HEMATOLOGY Hct 39.5 % 36.0 - 48.0 09/03/2012 Normal [facility] CHEMISTRY Glucose Lvl 476 mg/dL 70 - 99 09/03/2012 CRIT 10Interpretive Data: Adult reference range values reflect the clinical guidelines of the [place] [employer]. [facility] BEDSIDE GLUCOSE TESTING Comment1 Notify RN/ 09/03/2012 NA [facility] BEDSIDE GLUCOSE TESTING Comment1 Notify RN/MD 09/03/2012 [facility] Microbiology Culture: Urine 09/03/2012 [facility] URINALYSIS UA Bacteria Occasional /HPF *NA* (09/02/2012 16:53:00) None Seen 09/02/2012 [facility] URINALYSIS UA pH 5.0 5.0 - 8.0 09/02/2012 Normal [facility] URINALYSIS UA Protein Negative mg/dL (09/02/2012 16:53:00) Negative 09/02/2012 Normal [facility] URINALYSIS UA Turbidity Clear (09/02/2012 16:53:00) Clear 09/02/2012 Normal [facility] URINALYSIS UA Spec Grav 1.018 <=1.030 09/02/2012 Normal [facility] URINALYSIS UA Glucose 500 mg/dL *ABN* (09/02/2012 16:53:00) Negative 09/02/2012 ABN [facility] URINALYSIS UA Ketones 20 mg/dL *ABN* (09/02/2012 16:53:00) Negative 09/02/2012 ABN [facility] URINALYSIS UA Bili Negative *NA* (09/02/2012 16:53:00) Negative 09/02/2012 [facility] URINALYSIS UA Blood Negative (09/02/2012 16:53:00) Negative 09/02/2012 Normal [facility] URINALYSIS UA Nitrite Negative (09/02/2012 16:53:00) Negative 09/02/2012 Normal [facility] URINALYSIS UA Sq Epi Few /LPF *NA* (09/02/2012 16:53:00) Few 09/02/2012 [facility] URINALYSIS UA Leuk Est Trace *ABN* (09/02/2012 16:53:00) Negative 09/02/2012 ABN [facility] URINALYSIS UA RBC 3 /HPF 0 - 2 09/02/2012 HI [facility] URINALYSIS UA WBC 14 /HPF 0 - 5 09/02/2012 HI [facility] URINALYSIS UA Urobilinogen <=1.0 mg/dL
*NA*
(09/02/2012 16:53:00) <sup> </sup> 0.1 - 1.0 09/02/2012 [facility] URINALYSIS UA Color Ltyellow 09/02/2012 [facility] CHEMISTRY Lactic Acid Lvl 1.2 mMol/L 0.5 - 2.2 09/02/2012 Normal [facility] Microbiology Culture: Blood 09/02/2012 [facility] Microbiology Culture: Blood 09/02/2012 [facility] CHEMISTRY Troponin-I null 0.00 - 0.40 09/02/2012 Normal [facility] CHEMISTRY CK MB 0.9 ng/mL 0.5 - 3.6 09/02/2012 Normal [facility] CHEMISTRY Total CK 76 unit/L 12 - 191 09/02/2012 Normal [facility] CHEMISTRY CK MB Index 1.2 0.0 - 2.5 09/02/2012 Normal [facility] CHEMISTRY BNP 64 pg/mL <=100 09/02/2012 Normal 11Interpretive Data: Elevated results are in line with increasing severity of congestive heart failure. Minor elevations between 100 and 300 may be seen with Myocardial Ischemia, Sodium retaining drugs, and compensated/treated heart failure. [facility] CHEMISTRY Alk Phos 244 unit/L 39 - 136 09/02/2012 [facility] CHEMISTRY ALT 43 unit/L 0 - 65 09/02/2012 Normal [facility] CHEMISTRY AST 40 unit/L 0 - 37 09/02/2012 [facility] CHEMISTRY Bili Total 0.7 mg/dL 0.2 - 1.3 09/02/2012 Normal [facility] CHEMISTRY A/G Ratio 0.8 0.7 - 1.6 09/02/2012 Normal [facility] CHEMISTRY Globulin 4.4 g/dL 2.0 - 4.0 09/02/2012 [facility] CHEMISTRY B/C Ratio 20 6 - 25 09/02/2012 Normal [facility] CHEMISTRY Total Protein 7.9 g/dL 6.4 - 8.4 09/02/2012 Normal [facility] CHEMISTRY BUN 20 mg/dL 7 - 22 09/02/2012 Normal [facility] CHEMISTRY eGFR 54 mL/min/1.73m2 09/02/2012 NA [...] should be multiplied by the estimated BMI. [facility] CHEMISTRY Calcium Lvl 9.6 mg/dL 8.5 - 10.5 09/02/2012 Normal [facility] CHEMISTRY Albumin Lvl 3.5 g/dL 3.5 - 5.0 09/02/2012 Normal [facility] CHEMISTRY AGAP 14.9 meq/L 10.0 - 20.0 09/02/2012 Normal [facility] CHEMISTRY Chloride Lvl 107 meq/L 95 - 109 09/02/2012 Normal [facility] CHEMISTRY Potassium Lvl 3.9 meq/L 3.5 - 5.1 09/02/2012 Normal [facility] CHEMISTRY CO2 27 meq/L 24 - 32 09/02/2012 Normal [facility] CHEMISTRY Creatinine Lvl 1.0 mg/dL 0.5 - 1.4 09/02/2012 Normal [facility] CHEMISTRY Sodium Lvl 145 meq/L 135 - 145 09/02/2012 Normal [facility] CHEMISTRY Magnesium Lvl 1.7 mg/dL 1.8 - 2.4 09/02/2012 LOW [facility] CHEMISTRY Phosphorus 3.3 mg/dL 2.5 - 4.5 09/02/2012 Normal [facility] HEMATOLOGY INR 0.91 0.85 - 1.17 09/02/2012 Normal 12Interpretive Data: RECOMMENDED RANGES FOR PROTIME INR: 2.0-3.0 for most medical and surgical thromboembolic states. 2.5-3.5 for artificial heart valves and recurrent embolism. INR SHOULD BE USED ONLY FOR PATIENTS ON STABLE ANTICOAGULANT THERAPY. [facility] HEMATOLOGY PTT 37.0 s 22.9 - 35.8 09/02/2012 [place] 13Interpretive Data: Heparin Therapeutic Range: 57 - 92 Seconds [facility] HEMATOLOGY PT 12.5 s 12.0 - 14.7 09/02/2012 Normal [facility] HEMATOLOGY Lymphocytes 20.7 % 20.0 - 40.0 09/02/2012 Normal [facility] HEMATOLOGY Segs 71.9 % 45.0 - 75.0 09/02/2012 Normal [facility] HEMATOLOGY Basophils 0.3 % 0.0 - 1.0 09/02/2012 Normal [facility] Segs-Bands # 6.7 K/CMM 1.5 - 8.1 09/02/2012 Normal [facility] Monocytes 5.3 % 2.0 - 12.0 09/02/2012 Normal [facility] HEMATOLOGY Eosinophils 1.8 % 0.0 - 4.0 09/02/2012 Normal [facility] HEMATOLOGY Eosinophils # 0.2 K/CMM 0.0 - 0.5 09/02/2012 Normal [facility] HEMATOLOGY Basophils # 0.0 K/CMM 0.0 - 0.2 09/02/2012 Normal [facility] HEMATOLOGY Lymphocytes # 1.9 K/CMM 1.0 - 5.5 09/02/2012 Normal [facility] HEMATOLOGY Monocytes # 0.5 K/CMM 0.0 - 0.8 09/02/2012 Normal [facility] HEMATOLOGY MCH 31.6 pg 27.0 - 31.0 09/02/2012 HI [facility] HEMATOLOGY MCV 93.0 fL 81.0 - 99.0 09/02/2012 Normal [facility] HEMATOLOGY RDW 14.0 % 11.5 - 14.5 09/02/2012 Normal [facility] HEMATOLOGY MCHC 34.0 g/dL 32.0 - 36.0 09/02/2012 Normal [facility] HEMATOLOGY Platelet 382 K/CMM 133 - 450 09/02/2012 Normal [facility] HEMATOLOGY MPV 8.9 fL 7.4 - 10.4 09/02/2012 Normal [facility] HEMATOLOGY Hct 44.9 % 36.0 - 48.0 09/02/2012 Normal [facility] HEMATOLOGY WBC 9.4 K/CMM 3.7 - 10.4 09/02/2012 Normal [facility] HEMATOLOGY Hgb 15.3 g/dL 12.0 - 16.0 09/02/2012 Normal [facility] HEMATOLOGY RBC 4.83 M/CMM 4.20 - 5.40 09/02/2012 Normal [facility] BEDSIDE GLUCOSE TESTING Gluc POC Lifscn 142 mg/dL 70 - 99 06/26/2012 [place] 1Interpretive Data: Upper Reportable Limit: 200 mg/dL. [facility] CHEMISTRY Sodium Lvl 146 meq/L 135 - 145 06/26/2012 HI [facility] CHEMISTRY Calcium Lvl 8.1 mg/dL 8.5 - 10.5 06/26/2012 LOW [facility] CHEMISTRY CO2 28 meq/L 24 - 32 06/26/2012 Normal [facility] CHEMISTRY Chloride Lvl 108 meq/L 95 - 109 06/26/2012 Normal [facility] CHEMISTRY Potassium Lvl 4.0 meq/L 3.5 - 5.1 06/26/2012 Normal [facility] CHEMISTRY Albumin Lvl 2.4 g/dL 3.5 - 5.0 06/26/2012 LOW [facility] CHEMISTRY eGFR 48 mL/min/1.73m2 06/26/2012 NA [...] should be multiplied by the estimated BMI. [facility] CHEMISTRY Glucose Lvl 164 mg/dL 70 - 99 06/26/2012 [place] 7Interpretive Data: Adult reference range values reflect the clinical guidelines of the [place] [employer]. [facility] CHEMISTRY BUN 15 mg/dL 7 - 22 06/26/2012 Normal [facility] CHEMISTRY Creatinine Lvl 1.1 mg/dL 0.5 - 1.4 06/26/2012 Normal [facility] CHEMISTRY B/C Ratio 14 6 - 25 06/26/2012 Normal [facility] CHEMISTRY Globulin 2.9 g/dL 2.0 - 4.0 06/26/2012 Normal [facility] CHEMISTRY Total Protein 5.3 g/dL 6.4 - 8.4 06/26/2012 LOW [facility] CHEMISTRY Bili Total 0.7 mg/dL 0.2 - 1.3 06/26/2012 Normal [facility] CHEMISTRY Alk Phos 317 unit/L 39 - 136 06/26/2012 [facility] CHEMISTRY ALT 49 unit/L 0 - 65 06/26/2012 Normal [facility] CHEMISTRY A/G Ratio 0.8 0.7 - 1.6 06/26/2012 Normal [facility] CHEMISTRY AST 53 unit/L 0 - 37 06/26/2012 [facility] CHEMISTRY AGAP 14.0 meq/L 10.0 - 20.0 06/26/2012 Normal [facility] HEMATOLOGY Eosinophils # 0.2 K/CMM 0.0 - 0.5 06/26/2012 Normal [facility] HEMATOLOGY Basophils # 0.0 K/CMM 0.0 - 0.2 06/26/2012 Normal [facility] HEMATOLOGY Segs-Bands # 3.8 K/CMM 1.5 - 8.1 06/26/2012 Normal [facility] HEMATOLOGY Monocytes # 0.7 K/CMM 0.0 - 0.8 06/26/2012 Normal [facility] HEMATOLOGY Lymphocytes # 1.6 K/CMM 1.0 - 5.5 06/26/2012 Normal [facility] HEMATOLOGY Basophils 0.3 % 0.0 - 1.0 06/26/2012 Normal [facility] HEMATOLOGY Eosinophils 2.6 % 0.0 - 4.0 06/26/2012 Normal [facility] HEMATOLOGY Monocytes 10.5 % 2.0 - 12.0 06/26/2012 Normal [facility] HEMATOLOGY Segs 60.7 % 45.0 - 75.0 06/26/2012 Normal [facility] HEMATOLOGY Lymphocytes 25.9 % 20.0 - 40.0 06/26/2012 Normal [facility] HEMATOLOGY MPV 9.0 fL 7.4 - 10.4 06/26/2012 Normal [facility] HEMATOLOGY Platelet 203 K/CMM 133 - 450 06/26/2012 Normal [facility] HEMATOLOGY Hct 36.1 % 36.0 - 48.0 06/26/2012 Normal [facility] HEMATOLOGY MCH 31.8 pg 27.0 - 31.0 06/26/2012 HI [facility] HEMATOLOGY MCHC 34.1 g/dL 32.0 - 36.0 06/26/2012 Normal [facility] HEMATOLOGY RDW 13.9 % 11.5 - 14.5 06/26/2012 Normal [facility] HEMATOLOGY MCV 93.0 fL 81.0 - 99.0 06/26/2012 Normal [facility] HEMATOLOGY WBC 6.3 K/CMM 3.7 - 10.4 06/26/2012 Normal [facility] HEMATOLOGY RBC 3.88 M/CMM 4.20 - 5.40 06/26/2012 LOW [facility] HEMATOLOGY Hgb 12.3 g/dL 12.0 - 16.0 06/26/2012 Normal [facility] BEDSIDE GLUCOSE TESTING Gluc POC Lifscn 254 mg/dL 70 - 99 06/26/2012 [place] 2Interpretive Data: Upper Reportable Limit: 200 mg/dL. [facility] BEDSIDE GLUCOSE TESTING Gluc POC Lifscn 252 mg/dL 70 - 99 06/25/2012 [place] 3Interpretive Data: Upper Reportable Limit: 200 mg/dL. [facility] BEDSIDE GLUCOSE TESTING Comment1 Notify SAULO/ 06/25/2012 NA [facility] BEDSIDE GLUCOSE TESTING Comment1 Notify SAULO/ 06/25/2012 NA [facility] CHEMISTRY LDL 55 mg/dL 0 - 129 06/25/2012 Normal [facility] CHEMISTRY HDL 11 mg/dL >=35 06/25/2012 LOW [facility] CHEMISTRY Chol 102 mg/dL 120 - 200 06/25/2012 LOW [facility] CHEMISTRY CHD Risk 9.27 3.90 - 5.80 06/25/2012 [facility] CHEMISTRY Trig 182 mg/dL 0 - 200 06/25/2012 Normal [facility] CHEMISTRY AGAP 12.7 meq/L 10.0 - 20.0 06/25/2012 Normal [facility] CHEMISTRY Globulin 3.5 g/dL 2.0 - 4.0 06/25/2012 Normal [facility] CHEMISTRY B/C Ratio 15 6 - 25 06/25/2012 Normal [facility] CHEMISTRY A/G Ratio 0.6 0.7 - 1.6 06/25/2012 LOW [facility] CHEMISTRY eGFR 48 mL/min/1.73m2 06/25/2012 NA [...] should be multiplied by the estimated BMI. [facility] CHEMISTRY Albumin Lvl 2.2 g/dL 3.5 - 5.0 06/25/2012 LOW [facility] CHEMISTRY Calcium Lvl 8.2 mg/dL 8.5 - 10.5 06/25/2012 LOW [facility] CHEMISTRY CO2 24 meq/L 24 - 32 06/25/2012 Normal [facility] CHEMISTRY Chloride Lvl 110 meq/L 95 - 109 06/25/2012 HI [facility] CHEMISTRY Glucose Lvl 82 mg/dL 70 - 99 06/25/2012 Normal 8Interpretive Data: Adult reference range values reflect the clinical guidelines of the [place] [employer]. [facility] CHEMISTRY Potassium Lvl 3.7 meq/L 3.5 - 5.1 06/25/2012 Normal [facility] CHEMISTRY Creatinine Lvl 1.1 mg/dL 0.5 - 1.4 06/25/2012 Normal [facility] CHEMISTRY Sodium Lvl 143 meq/L 135 - 145 06/25/2012 Normal [facility] CHEMISTRY Bili Total 0.4 mg/dL 0.2 - 1.3 06/25/2012 Normal [facility] CHEMISTRY AST 53 unit/L 0 - 37 06/25/2012 [facility] CHEMISTRY Total Protein 5.7 g/dL 6.4 - 8.4 06/25/2012 LOW [facility] CHEMISTRY BUN 17 mg/dL 7 - 22 06/25/2012 Normal [facility] CHEMISTRY ALT 48 unit/L 0 - 65 06/25/2012 Normal [facility] CHEMISTRY Alk Phos 220 unit/L 39 - 136 06/25/2012 [place] [facility] CHEMISTRY Magnesium Lvl 1.7 mg/dL 1.8 - 2.4 06/25/2012 LOW [facility] HEMATOLOGY Lymphocytes 17.6 % 20.0 - 40.0 06/25/2012 LOW [facility] HEMATOLOGY Eosinophils 1.0 % 0.0 - 4.0 06/25/2012 Normal [facility] HEMATOLOGY Segs-Bands # 4.5 K/CMM 1.5 - 8.1 06/25/2012 Normal [facility] HEMATOLOGY Basophils 0.5 % 0.0 - 1.0 06/25/2012 Normal [facility] HEMATOLOGY Monocytes 10.0 % 2.0 - 12.0 06/25/2012 Normal [facility] HEMATOLOGY Monocytes # 0.6 K/CMM 0.0 - 0.8 06/25/2012 Normal [facility] HEMATOLOGY Eosinophils # 0.1 K/CMM 0.0 - 0.5 06/25/2012 Normal [facility] HEMATOLOGY Lymphocytes # 1.1 K/CMM 1.0 - 5.5 06/25/2012 Normal [facility] HEMATOLOGY Basophils # 0.0 K/CMM 0.0 - 0.2 06/25/2012 Normal [facility] HEMATOLOGY Segs 70.9 % 45.0 - 75.0 06/25/2012 Normal [facility] HEMATOLOGY MPV 9.1 fL 7.4 - 10.4 06/25/2012 Normal [facility] HEMATOLOGY RDW 14.0 % 11.5 - 14.5 06/25/2012 Normal [facility] HEMATOLOGY Platelet 190 K/CMM 133 - 450 06/25/2012 Normal [facility] HEMATOLOGY MCHC 34.2 g/dL 32.0 - 36.0 06/25/2012 Normal [facility] HEMATOLOGY MCH 31.9 pg 27.0 - 31.0 06/25/2012 HI [facility] HEMATOLOGY Hgb 11.6 g/dL 12.0 - 16.0 06/25/2012 LOW [facility] HEMATOLOGY Hct 34.0 % 36.0 - 48.0 06/25/2012 LOW [facility] HEMATOLOGY WBC 6.4 K/CMM 3.7 - 10.4 06/25/2012 Normal [facility] RBC 3.65 M/CMM 4.20 - 5.40 06/25/2012 LOW [facility] MCV 93.1 fL 81.0 - 99.0 06/25/2012 Normal [facility] EBV VCA IgM 0.03 IV <=0.89 06/25/2012 Normal 10Interpretive Data: Index Value Results Interpretation --------- <=0.90 Negative No detectable IgM Antibody. 0.90 - 1.09 Equivocal Repeat testing suggested in 10-14 days. >=1.10 Positive Significant level of detectable VCA IgM Antibody, indicative of current or recent infection. [facility] ROGELIO Negative (06/25/2012 07:12:00) Negative 06/25/2012 Normal [facility] CMV IgG Reactive *ABN* (06/25/2012 07:12:00) Non Reactive 06/25/2012 ABN [facility] Hep Bs Ag Negative *NA* (06/25/2012 07:12:00) Negative 06/25/2012 NA [facility] Hep C Ab Negative *NA* (06/25/2012 07:12:00) Negative 06/25/2012 NA [facility] Hep B Core IgM Negative *NA* (06/25/2012 07:12:00) Negative 06/25/2012 NA [facility] Hep A IgM Negative *NA* (06/25/2012 07:12:00) Negative 06/25/2012 NA [facility] BEDSIDE GLUCOSE TESTING Comment1 Notify SAULO/ 06/25/2012 NA [facility] CHEMISTRY Troponin-I null 0.00 - 0.40 06/24/2012 Normal [facility] CHEMISTRY Total CK 65 unit/L 12 - 06/24/2012 Normal [facility] CHEMISTRY Troponin-I null 0.00 - 0.40 06/24/2012 Normal [facility] CHEMISTRY Total CK 60 unit/L 12 - 191 06/24/2012 Normal [facility] CHEMISTRY Magnesium Lvl 1.7 mg/dL 1.8 - 2.4 06/24/2012 LOW [facility] CHEMISTRY AST 75 unit/L 0 - 37 06/24/2012 [facility] CHEMISTRY Bili Total 0.8 mg/dL 0.2 - 1.3 06/24/2012 Normal [facility] CHEMISTRY ALT 63 unit/L 0 - 65 06/24/2012 Normal [facility] CHEMISTRY Total Protein 5.5 g/dL 6.4 - 8.4 06/24/2012 LOW [facility] CHEMISTRY Alk Phos 252 unit/L 39 - 136 06/24/2012 [facility] CHEMISTRY Calcium Lvl 8.0 mg/dL 8.5 - 10.5 06/24/2012 LOW [facility] CHEMISTRY Albumin Lvl 2.7 g/dL 3.5 - 5.0 06/24/2012 LOW [facility] CHEMISTRY CO2 25 meq/L 24 - 32 06/24/2012 Normal [facility] CHEMISTRY Chloride Lvl 105 meq/L 95 - 109 06/24/2012 Normal [facility] CHEMISTRY Sodium Lvl 139 meq/L 135 - 145 06/24/2012 Normal [facility] CHEMISTRY Potassium Lvl 4.2 meq/L 3.5 - 5.1 06/24/2012 Normal [facility] CHEMISTRY Creatinine Lvl 1.5 mg/dL 0.5 - 1.4 06/24/2012 [facility] CHEMISTRY Glucose Lvl 228 mg/dL 70 - 99 06/24/2012 [place] 9Interpretive Data: Adult reference range values reflect the clinical guidelines of the [place] [employer]. [facility] CHEMISTRY BUN 28 mg/dL 7 - 22 06/24/2012 [facility] CHEMISTRY eGFR 33 mL/min/1.73m2 06/24/2012 NA 6Result [...] should be multiplied by the estimated BMI. [facility] CHEMISTRY Globulin 2.8 g/dL 2.0 - 4.0 06/24/2012 Normal [facility] CHEMISTRY A/G Ratio 1.0 0.7 - 1.6 06/24/2012 Normal [facility] CHEMISTRY AGAP 13.2 meq/L 10.0 - 20.0 06/24/2012 Normal [facility] CHEMISTRY B/C Ratio 19 6 - 25 06/24/2012 Normal [facility] CHEMISTRY Phosphorus 2.1 mg/dL 2.5 - 4.5 06/24/2012 LOW [facility] HEMATOLOGY Lymphocytes 8.9 % 20.0 - 40.0 06/24/2012 LOW [facility] HEMATOLOGY Segs 83.1 % 45.0 - 75.0 06/24/2012 HI [facility] HEMATOLOGY Eosinophils 0.3 % 0.0 - 4.0 06/24/2012 Normal [facility] HEMATOLOGY Monocytes 7.5 % 2.0 - 12.0 06/24/2012 Normal [facility] HEMATOLOGY Segs-Bands # 6.5 K/CMM 1.5 - 8.1 06/24/2012 Normal [facility] HEMATOLOGY Monocytes # 0.6 K/CMM 0.0 - 0.8 06/24/2012 Normal [facility] HEMATOLOGY Lymphocytes # 0.7 K/CMM 1.0 - 5.5 06/24/2012 LOW [facility] HEMATOLOGY Basophils # 0.0 K/CMM 0.0 - 0.2 06/24/2012 Normal [facility] HEMATOLOGY Eosinophils # 0.0 K/CMM 0.0 - 0.5 06/24/2012 Normal [facility] HEMATOLOGY Basophils 0.2 % 0.0 - 1.0 06/24/2012 Normal [facility] HEMATOLOGY WBC 7.8 K/CMM 3.7 - 10.4 06/24/2012 Normal [facility] HEMATOLOGY MCHC 33.0 g/dL 32.0 - 36.0 06/24/2012 Normal [facility] HEMATOLOGY Platelet 178 K/CMM 133 - 450 06/24/2012 Normal [facility] HEMATOLOGY RDW 13.6 % 11.5 - 14.5 06/24/2012 Normal [facility] HEMATOLOGY MCV 94.6 fL 81.0 - 99.0 06/24/2012 Normal [facility] HEMATOLOGY MCH 31.2 pg 27.0 - 31.0 06/24/2012 HI [facility] HEMATOLOGY RBC 3.85 M/CMM 4.20 - 5.40 06/24/2012 LOW [facility] HEMATOLOGY Hgb 12.0 g/dL 12.0 - 16.0 06/24/2012 Normal [facility] HEMATOLOGY Hct 36.4 % 36.0 - 48.0 06/24/2012 Normal [facility] HEMATOLOGY MPV 8.9 fL 7.4 - 10.4 06/24/2012 Normal [facility] Microbiology Culture: Urine 06/24/2012 [facility] URINALYSIS UA Mucus Few /LPF *NA* (06/23/2012 17:36:00) None Seen 06/23/2012 [facility] URINALYSIS UA Urobilinogen 2.0 mg/dL 0.1 - 1.0 06/23/2012 [facility] URINALYSIS UA Ketones Negative mg/dL *NA* (06/23/2012 17:36:00) Negative 06/23/2012 [facility] URINALYSIS UA Protein Negative mg/dL (06/23/2012 17:36:00) Negative 06/23/2012 Normal [facility] URINALYSIS UA Blood Small *ABN* (06/23/2012 17:36:00) Negative 06/23/2012 ABN [facility] URINALYSIS UA Glucose 500 mg/dL *ABN* (06/23/2012 17:36:00) Negative 06/23/2012 ABN [facility] URINALYSIS UA RBC 4 /HPF 0 - 2 06/23/2012 HI [facility] URINALYSIS UA Nitrite Negative (06/23/2012 17:36:00) Negative 06/23/2012 Normal [facility] URINALYSIS UA Bacteria Occasional /HPF *NA* (06/23/2012 17:36:00) None Seen 06/23/2012 [facility] URINALYSIS UA Bili Negative *NA* (06/23/2012 17:36:00) Negative 06/23/2012 [facility] URINALYSIS UA Leuk Est Small *ABN* (06/23/2012 [...] NA [facility] URINALYSIS UA Color Jayne 06/22/2012 NA [facility] URINALYSIS UA Urobilinogen <=1.0 mg/dL
*NA*
(06/22/2012 10:30:00) <sup> </sup> 0.1 - 1.0 06/22/2012 NA [facility] URINALYSIS UA Turbidity Marked *ABN* (06/22/2012 10:30:00) Clear 06/22/2012 ABN [facility] URINALYSIS UA Protein 100 mg/dL *ABN* (06/22/2012 10:30:00) Negative 06/22/2012 ABN [facility] URINALYSIS UA pH 5.0 5.0 - 8.0 06/22/2012 Normal [facility] URINALYSIS UA Spec Grav 1.012 <=1.030 06/22/2012 Normal [facility] URINALYSIS UA Bili Negative *NA* (06/22/2012 10:30:00) Negative 06/22/2012 [facility] URINALYSIS UA Ketones Negative mg/dL *NA* (06/22/2012 10:30:00) Negative 06/22/2012 [facility] URINALYSIS UA Glucose 50 mg/dL *ABN* (06/22/2012 10:30:00) Negative 06/22/2012 ABN [facility] URINALYSIS UA Nitrite Positive *ABN* (06/22/2012 10:30:00) Negative 06/22/2012 ABN [facility] URINALYSIS UA Blood Large *ABN* (06/22/2012 10:30:00) Negative 06/22/2012 ABN [facility] URINALYSIS UA Mucus Few /LPF *NA* (06/22/2012 10:30:00) None Seen 06/22/2012 NA [facility] URINALYSIS UA Hyal Cast 3 /LPF 0 - 2 06/22/2012 [facility] URINALYSIS UA Bacteria Few /HPF *NA* (06/22/2012 10:30:00) None Seen 06/22/2012 NA [facility] URINALYSIS UA RBC 20 /HPF 0 - 2 06/22/2012 [facility] URINALYSIS UA Sq Epi Many /LPF *ABN* (06/22/2012 10:30:00) Few 06/22/2012 ABN [facility] URINALYSIS UA Leuk Est Large *ABN* (06/22/2012 10:30:00) Negative 06/22/2012 ABN [facility] URINALYSIS UA WBC 69 /HPF 0 - 5 06/22/2012 [facility] CHEMISTRY CK MB Index null 0.0 - 2.5 06/22/2012 Normal [facility] CHEMISTRY Total CK 53 unit/L 12 - 191 06/22/2012 Normal [facility] CHEMISTRY CK MB null 0.5 - 3.6 06/22/2012 Normal [facility] CHEMISTRY Glucose Lvl 259 mg/dL 70 - 99 06/22/2012 [place] 2Interpretive Data: Adult reference range values reflect the clinical guidelines of the [place] [employer]. [facility] CHEMISTRY BUN 27 mg/dL 7 - 22 06/22/2012 [facility] CHEMISTRY AGAP 13.7 meq/L 10.0 - 20.0 06/22/2012 Normal [facility] CHEMISTRY B/C Ratio 17 6 - 25 06/22/2012 Normal [facility] CHEMISTRY Albumin Lvl 3.3 g/dL 3.5 - 5.0 06/22/2012 LOW [facility] CHEMISTRY CO2 23 meq/L 24 - 32 06/22/2012 LOW [facility] CHEMISTRY eGFR 31 mL/min/1.73m2 06/22/2012 NA [...] should be multiplied by the estimated BMI. [facility] CHEMISTRY Potassium Lvl 3.7 meq/L 3.5 - 5.1 06/22/2012 Normal [facility] CHEMISTRY Chloride Lvl 105 meq/L 95 - 109 06/22/2012 Normal [facility] CHEMISTRY Calcium Lvl 9.1 mg/dL 8.5 - 10.5 06/22/2012 Normal [facility] CHEMISTRY Sodium Lvl 138 meq/L 135 - 145 06/22/2012 Normal [facility] CHEMISTRY Creatinine Lvl 1.6 mg/dL 0.5 - 1.4 06/22/2012 [facility] CHEMISTRY Bili Total 1.5 mg/dL 0.2 - 1.3 06/22/2012 [facility] CHEMISTRY Alk Phos 222 unit/L 39 - 136 06/22/2012 [facility] CHEMISTRY ALT 44 unit/L 0 - 65 06/22/2012 Normal [facility] CHEMISTRY Total Protein 7.4 g/dL 6.4 - 8.4 06/22/2012 Normal [facility] CHEMISTRY A/G Ratio 0.8 0.7 - 1.6 06/22/2012 Normal [facility] CHEMISTRY Globulin 4.1 g/dL 2.0 - 4.0 06/22/2012 [facility] CHEMISTRY AST 39 unit/L 0 - 37 06/22/2012 [facility] CHEMISTRY Lipase Lvl 101 unit/L 73 - 393 06/22/2012 Normal [facility] HEMATOLOGY Segs-Bands # 12.3 K/CMM 1.5 - 8.1 06/22/2012 [facility] HEMATOLOGY Lymphocytes # 0.8 K/CMM 1.0 - 5.5 06/22/2012 LOW [facility] HEMATOLOGY Basophils 0.1 % 0.0 - 1.0 06/22/2012 Normal [facility] HEMATOLOGY Monocytes # 0.6 K/CMM 0.0 - 0.8 06/22/2012 Normal [facility] HEMATOLOGY Eosinophils # 0.0 K/CMM 0.0 - 0.5 06/22/2012 Normal [facility] HEMATOLOGY Basophils # 0.0 K/CMM 0.0 - 0.2 06/22/2012 Normal [facility] HEMATOLOGY RBC Morph Normal (06/22/2012 09:00:00) 06/22/2012 Normal [facility] HEMATOLOGY Segs 89.7 % 45.0 - 75.0 06/22/2012 [facility] HEMATOLOGY Plt Morph Normal (06/22/2012 09:00:00) 06/22/2012 Normal [facility] HEMATOLOGY Lymphocytes 5.6 % 20.0 - 40.0 06/22/2012 LOW [facility] HEMATOLOGY Monocytes 4.5 % 2.0 - 12.0 06/22/2012 Normal [facility] HEMATOLOGY Eosinophils 0.1 % 0.0 - 4.0 06/22/2012 Normal [facility] HEMATOLOGY RDW 13.9 % 11.5 - 14.5 06/22/2012 Normal [facility] HEMATOLOGY MCHC 34.2 g/dL 32.0 - 36.0 06/22/2012 Normal [facility] HEMATOLOGY Platelet 209 K/CMM 133 - 450 06/22/2012 Normal [facility] HEMATOLOGY MPV 9.0 fL 7.4 - 10.4 06/22/2012 Normal [facility] HEMATOLOGY Hgb 13.8 g/dL 12.0 - 16.0 06/22/2012 Normal [facility] HEMATOLOGY Hct 40.3 % 36.0 - 48.0 06/22/2012 Normal [facility] HEMATOLOGY MCV 93.7 fL 81.0 - 99.0 06/22/2012 Normal [facility] HEMATOLOGY MCH 32.0 pg 27.0 - 31.0 06/22/2012 [facility] HEMATOLOGY RBC 4.30 M/CMM 4.20 - 5.40 06/22/2012 Normal [facility] HEMATOLOGY WBC 13.8 K/CMM 3.7 - 10.4 06/22/2012 [facility] Vital Signs Vital Sign Value Date Comments [...] 04/09/2016 [facility] Diastolic (mm Hg) 72 04/09/2016 [facility] Temperature Oral (F) 98.2 F 04/09/2016 [facility] Systolic (mm Hg) 130 04/09/2016 [facility] Diastolic (mm Hg) 72 04/09/2016 [facility] Respitory Rate 16 04/09/2016 [facility] Heart Rate 71 04/09/2016 [facility] Height 157.48 cm 04/07/2016 [facility] BMI Calculated 39.96 04/07/2016 [facility] Weight 99.091 04/07/2016 [facility] BMI Calculated 35.58 04/07/2016 [facility] Weight 100 04/07/2016 [facility] Height 167.64 cm 04/07/2016 [facility] Respitory Rate 20 04/07/2016 [facility] Systolic (mm Hg) 137 04/07/2016 [facility] Diastolic (mm Hg) 54 04/07/2016 [facility] Heart Rate 90 04/07/2016 [facility] Temperature Oral (F) 98.6 F 04/07/2016 [facility] Height 157.48 cm 04/06/2016 [facility] Weight 99.091 04/06/2016 [facility] BMI Calculated 39.96 04/06/2016 [facility] Respitory Rate 18 04/06/2016 [facility] Heart Rate 78 04/06/2016 [facility] Systolic (mm Hg) 178 04/06/2016 [facility] Diastolic (mm Hg) 77 04/06/2016 [facility] Temperature Oral (F) 98.3 F 04/06/2016 [facility] Systolic (mm Hg) 156 10/01/2015 [facility] Diastolic (mm Hg) 60 10/01/2015 [facility] Respitory Rate 18 10/01/2015 [facility] Temperature Oral (F) 98.2 F 10/01/2015 [facility] Heart Rate 74 10/01/2015 [facility] Heart Rate 63 10/01/2015 [facility] Respitory Rate 21 10/01/2015 [facility] Systolic (mm Hg) 161 10/01/2015 [facility] Diastolic (mm Hg) 65 10/01/2015 [facility] Systolic (mm Hg) 166 10/01/2015 [facility] Diastolic (mm Hg) 83 10/01/2015 [facility] Weight 97.273 10/01/2015 [facility] BMI Calculated 39.22 10/01/2015 [facility] Height 157.48 cm 10/01/2015 [facility] Temperature Oral (F) 97.6 F 10/01/2015 [facility] Respitory Rate 17 10/01/2015 [facility] Heart Rate 74 10/01/2015 [facility] Temperature Oral (F) 98.0 F 09/22/2015 [facility] Respitory Rate 18 09/22/2015 [facility] Systolic (mm Hg) 150 09/22/2015 [facility] Diastolic (mm Hg) 84 09/22/2015 [facility] Respitory Rate 18 09/22/2015 [facility] Systolic (mm Hg) 144 09/22/2015 [facility] Diastolic (mm Hg) 61 09/22/2015 [facility] Systolic (mm Hg) 140 09/22/2015 [facility] Diastolic (mm Hg) 84 09/22/2015 [facility] Respitory Rate 23 09/22/2015 [facility] Height 157.48 cm 09/22/2015 [facility] BMI Calculated 39.22 09/22/2015 [facility] Weight 97.273 09/22/2015 [facility] Temperature Oral (F) 98.2 F 09/22/2015 [facility] Heart Rate 90 09/22/2015 [facility] Respitory Rate 18 05/02/2015 [facility] Systolic (mm Hg) 154 05/02/2015 [facility] Diastolic (mm Hg) 69 05/02/2015 [facility] Heart Rate 66 05/02/2015 [facility] Temperature Oral (F) 98.0 F 05/02/2015 [facility] Height 157.48 cm 05/02/2015 [facility] BMI Calculated 39.41 05/02/2015 [facility] Weight 97.727 05/02/2015 [facility] Respitory Rate 16 05/02/2015 [facility] Heart Rate 70 05/02/2015 [facility] Systolic (mm Hg) 150 05/02/2015 [facility] Diastolic (mm Hg) 66 05/02/2015 [facility] Temperature Oral (F) 97.7 F 05/02/2015 [facility] Temperature Oral (F) 98.1 F 03/01/2015 [facility] Heart Rate 108 03/01/2015 [facility] Respitory Rate 18 03/01/2015 [facility] Systolic (mm Hg) 151 03/01/2015 [facility] Diastolic (mm Hg) 51 03/01/2015 [facility] Temperature Oral (F) 98.1 F 03/01/2015 [facility] Systolic (mm Hg) 133 03/01/2015 [facility] Diastolic (mm Hg) 68 03/01/2015 [facility] Respitory Rate 18 03/01/2015 [facility] Heart Rate 66 03/01/2015 [facility] Respitory Rate 16 03/01/2015 [facility] Heart Rate 75 03/01/2015 [facility] Systolic (mm Hg) 150 03/01/2015 [facility] Diastolic (mm Hg) 69 03/01/2015 [facility] Temperature Oral (F) 97.7 F 03/01/2015 [facility] BMI Calculated 37.94 02/27/2015 [facility] Weight 94.091 02/27/2015 [facility] Height 157.48 cm 02/27/2015 [facility] Height 157.48 cm 02/27/2015 [facility] BMI Calculated 37.94 02/27/2015 [facility] Weight 94.091 02/27/2015 [facility] BMI Calculated 37.94 02/27/2015 [facility] Weight 94.091 02/27/2015 [facility] Height 157.48 cm 02/27/2015 [facility] Systolic (mm Hg) 146 10/10/2014 [facility] Diastolic (mm Hg) 64 10/10/2014 [facility] Respitory Rate 18 10/10/2014 [facility] Respitory Rate 21 10/10/2014 [facility] Systolic (mm Hg) 148 10/10/2014 [facility] Diastolic (mm Hg) 78 10/10/2014 [facility] Respitory Rate 16 10/10/2014 [facility] Systolic (mm Hg) 171 10/10/2014 [facility] Diastolic (mm Hg) 78 10/10/2014 [facility] Heart Rate 72 10/10/2014 [facility] Temperature Oral (F) 97.6 F 10/10/2014 [facility] BMI Calculated 37.39 10/10/2014 [facility] Weight 92.727 10/10/2014 [facility] Height 157.48 cm 10/10/2014 [facility] Heart Rate 70 08/23/2014 [facility] Temperature Oral (F) 98.1 F 08/23/2014 [...] 08/23/2014 [facility] Systolic (mm Hg) 163 08/23/2014 [facility] Temperature Oral (F) 98.1 F 08/22/2014 [facility] Respitory Rate 18 08/22/2014 [facility] BMI Calculated 37.94 08/22/2014 [facility] Weight 94.091 08/22/2014 [facility] Height 157.48 cm 08/22/2014 [facility] Diastolic (mm Hg) 60 05/16/2014 [facility] Respitory Rate 16 05/16/2014 [facility] Heart Rate 80 05/16/2014 [facility] Systolic (mm Hg) 159 05/16/2014 [facility] Systolic (mm Hg) 159 05/16/2014 [facility] Diastolic (mm Hg) 60 05/16/2014 [facility] Heart Rate 88 05/16/2014 [facility] Respitory Rate 16 05/16/2014 [facility] Respitory Rate 18 05/16/2014 [facility] Heart Rate 91 05/16/2014 [facility] Diastolic (mm Hg) 68 05/16/2014 [facility] Systolic (mm Hg) 148 05/16/2014 [facility] Temperature Oral (F) 98.1 F 05/16/2014 [facility] Weight 92.727 05/16/2014 [facility] BMI Calculated 37.39 05/16/2014 [facility] Height 157.48 cm 05/16/2014 [facility] Systolic (mm Hg) 160 01/09/2013 [facility] Diastolic (mm Hg) 87 01/09/2013 [facility] Respitory Rate 18 01/09/2013 [facility] Temperature Oral (F) 97.8 F 01/09/2013 [facility] Heart Rate 90 01/09/2013 [facility] Diastolic (mm Hg) 80 01/09/2013 [facility] Systolic (mm Hg) 150 01/09/2013 [facility] Respitory Rate 18 01/09/2013 [facility] Temperature Oral (F) 97.4 F 01/09/2013 [facility] Heart Rate 96 01/09/2013 [facility] Respitory Rate 18 01/09/2013 [facility] Systolic (mm Hg) 149 01/09/2013 [facility] Temperature Oral (F) 97.3 F 01/09/2013 [facility] Heart Rate 97 01/09/2013 [facility] Diastolic (mm Hg) 81 01/09/2013 [facility] Height 157.48 cm 01/08/2013 [facility] Weight 93.636 01/08/2013 [facility] Weight 90.455 01/08/2013 [facility] Height 157.48 cm 01/08/2013 [facility] Heart Rate 90 09/03/2012 [facility] Respitory Rate 20 09/03/2012 [facility] Temperature Oral (F) 98.4 F 09/03/2012 [facility] Systolic (mm Hg) 149 09/03/2012 [facility] Diastolic (mm Hg) 81 09/03/2012 [facility] Temperature Oral (F) 97.8 F 09/03/2012 [facility] Respitory Rate 20 09/03/2012 [facility] Heart Rate 78 09/03/2012 [facility] Systolic (mm Hg) 151 09/03/2012 [facility] Diastolic (mm Hg) 84 09/03/2012 [facility] Respitory Rate 16 09/03/2012 [facility] Heart Rate 86 09/03/2012 [facility] Temperature Oral (F) 97.6 F 09/03/2012 [facility] Diastolic (mm Hg) 83 09/03/2012 [facility] Systolic (mm Hg) 157 09/03/2012 [facility] Height 157.48 cm 09/02/2012 [facility] Weight 92.500 09/02/2012 [facility] Height 157.48 cm 09/02/2012 [facility] Weight 92.727 09/02/2012 [facility] Respitory Rate 20 06/26/2012 [facility] Temperature Oral (F) 97.8 F 06/26/2012 [facility] Diastolic (mm Hg) 87 06/26/2012 [facility] Heart Rate 88 06/26/2012 [facility] Systolic (mm Hg) 150 06/26/2012 [facility] Respitory Rate 18 06/26/2012 [facility] Respitory Rate 18 06/26/2012 [facility] Temperature Oral (F) 98.0 F 06/26/2012 [facility] Heart Rate 70 06/26/2012 [facility] Systolic (mm Hg) 127 06/26/2012 [facility] Diastolic (mm Hg) 82 06/26/2012 [facility] Diastolic (mm Hg) 75 06/26/2012 [facility] Systolic (mm Hg) 123 06/26/2012 [facility] Heart Rate 72 06/26/2012 [facility] Temperature Oral (F) 98.1 F 06/26/2012 [facility] Weight 95.000 06/23/2012 [facility] Height 177.80 cm 06/23/2012 [facility] Height 157.48 cm 06/22/2012 [facility] Weight 95.000 06/22/2012 [facility] Encounters Location Location Details Encounter Type Encounter Number Reason For Visit Attending Provider ADM Date DC Date Status Source [facility] Emergency [id number] HARI ARIEL 06/22/2012 06/22/2012 Active [facility] Inpatient [id number] HEATHER GOMEZ 06/23/2012 06/26/2012 Active [facility] OU [id number] REACTIVE AIRWAY, WHEEZING, PNEUMONIA BRANDO ROSANNA 09/02/2012 09/03/2012 Active [facility] Inpatient [id number] ZENOBIA BUENROSTRO 01/08/2013 01/09/2013 Active [facility] [id number] Bradley Abraham 05/16/2014 05/16/2014 [facility] [id number] Jaxson BaezMorel 08/22/2014 08/23/2014 [facility] [id number] Nikki Reinauyen 10/10/2014 10/10/2014 [facility] Outpatient [id number] KELLY PAULSONVER 02/14/2015 Active [facility] Inpatient [id number] Taso Mougouris 02/27/2015 03/01/2015 [facility] [id number] Debby Lm 05/02/2015 05/02/2015 [facility] Outpatient [id number] KELLY SHIVER 05/10/2015 Active [facility] Outpatient [id number] KELLY SHIVER 08/10/2015 [facility] [id number] Rishi Richards 09/22/2015 09/22/2015 [facility] [id number] Jaxson Morel 10/01/2015 10/01/2015 [facility] Outpatient [id number] KELLY SHIVER 11/09/2015 Active [facility] Outpatient [id number] KELLY SHIVER 02/08/[address] [facility] [place] [facility] [id number] Jair Moeller 03/16/2016 03/17/2016 [facility] Emergency [id number] Martín Burton 04/06/2016 04/07/2016 [facility] Inpatient [id number] Aviva Cruz 04/07/2016 04/09/2016 [facility] Outpatient [id number] Jairmarbella Moeller 04/16/2016 04/17/2016 [facility] Outpatient [id number] KELLY SHIVER 05/10/[address] [facility] [place] [facility] [id number] Kelly Shiver 05/10/2016 05/11/2016 [facility] [place] [facility] [id number] KELLY SHIVER 08/06/2016 Active [facility] Outpatient [id number] KELLY SHIVER 11/05/[address] [facility] [place] Out[facility] Diag Services [id number] Dewey Molina 01/09/2017 01/10/2017 [facility] [place] Outpatient [id number] KELLY SHIVER 02/04/2017 Active [facility] Outpatient [id number] KELLY SHIVER 05/07/2017 Active [facility] Phone Message [id number] 07/09/2017 07/11/2017 [facility] Phone Message [id number] 07/26/2017 07/28/2017 [facility] Outpatient [id number] KELLY SHIELMO 08/05/2017 Active [facility] Outpatient [id number] Kelly Shiver 08/05/2017 08/06/2017 [facility] Phone Message [id number] 09/09/2017 09/11/2017 [facility] Phone Message [id number] 10/28/2017 10/30/2017 [facility] Phone Message [id number] 11/08/2017 11/10/2017 [facility] Phone Message [id number] 11/12/2017 11/14/2017 [facility] Phone Message [id number] 11/20/2017 11/22/2017 [facility] Outpatient [id number] KELLY SHIVER 12/09/2017 Active [facility] Phone Message [id number] 12/09/2017 12/11/2017 [facility] Outpatient [id number] Kelly Shiver 12/09/2017 12/10/2017 [facility] Phone Message [id number] 12/18/2017 12/20/2017 [facility] Outpatient [id number] KELLY SHIVER 03/13/2018 Active [facility] Outpatient [id number] KELLY SHIVER 04/09/2018 Active [facility] Outpatient [id number] KELLY SHIVER 05/23/2018 Active [facility] Outpatient [id number] KELLY SHIVER 07/08/2018 Active [facility] Phone Message [id number] 08/29/2018 08/31/2018 [facility] Outpatient [id number] KELLY SHIVER 01/06/2019 Active [facility] Procedures Procedure Code Date Perfomer Comments Source Eye examination<sup>1</sup> [id number] 11/19/2017 Diabetic Eye Exam: 11/2017[facility] Hysterectomy [id number] 06/24/2017 [facility] Eye examination<sup>1</sup> [id number] 11/16/2016 Diabetic Eye Exam-Normal exam. [facility] Eye examination<sup>2</sup> [id number] 11/16/2016 Diabetic Eye Exam-Normal exam. [facility] Arthroscopy of knee with meniscus repair [id number] [facility] Cataract [facility] [id number] [facility] Hernia repair [id number] [facility] Arthroscopy of knee with meniscus repair [id number] [facility] Cataract surgery [id number] [facility] Hernia repair [id number] [facility] Arthroscopy of knee with meniscus repair [id number] [facility] [place] Cataract surgery [id number] [facility] [place] Hernia repair [id number] [facility] [place] Arthroscopy of knee with meniscus repair [id number] [facility] Cataract surgery [id number] [facility] Hernia repair [id number] [facility] Arthroscopy of knee with meniscus repair [id number] [facility] [place] Cataract surgery [id number] [facility] [place] Hernia repair [id number] [facility] [place] Arthroscopy of knee with meniscus repair [id number] [facility] [place] Cataract surgery [id number] [facility] [place] Hernia repair [id number] [facility] [place]
--- OUTSIDE RECORDS SUMMARY | 2018-09-16 11:48 | XMS REPORT | Summary of Care ---
Author Author [facility] [place] [facility] [place] [facility] Unknown Phone Unavailable Encounter NAVEED Garland(FIN) [id number] Date(s): 08/29/18 - 08/30/18 [facility] Internal [facility] [place] [address] [facility] [address] [place] [address]- Vital Signs No data available for this section Problem List Condition Effective Dates Status Health Status Informant Arthritis(Confirmed) Resolved Chicken Resolved pox(Confirmed) COPD(Confirmed) Resolved Low serum vitamin Active D(Confirmed) Diabetes(Confirmed) Resolved Disorder associated 08/03/10 Resolved with type 2 diabetes mellitus1 History of frequent Active urinary tract infections(Confirmed ) Hyperlipidemia2 08/03/10 Active Hypernatremia(Confir Active med) Mixed Active hyperlipidemia(Confi rmed) Morbid Active obesity(Confirmed) Obesity3 08/03/10 Active Osteoporosis4 08/03/10 Active Pneumonia(Confirmed) Resolved PUD - Peptic ulcer Resolved disease(Confirmed) Steatosis of liver5 Active Subclinical Active hypothyroidism(Confi rmed) Diabetes mellitus Active type 2 in obese(Confirmed) [...] Active Medications atorvastatin 10 mg oral tablet =1 tab, PO, Daily, # 90 tab, Refill(s) 1, Pharmacy: [facility] [id number] Start Date: 08/29/18 Status: Ordered Results No data available for this section Immunizations Given and Recorded Vaccine Date Status Refusal Reason influenza virus vaccine, inactivated1 04/09/18 Given influenza virus vaccine, inactivated2 09/03/12 Given 1Result Comment: Pt declined to wait the 15 min after injection. 2Admin Note: PATIENT STATES RECEIVED IN APRIL OF 2012 AT [facility] Procedures Procedure Date Related Diagnosis Body Site Status Eye examination1 11/19/17 Completed Hysterectomy 06/24/17 Completed Eye examination2 11/16/16 Completed Arthroscopy of knee with meniscus repair Completed Cataract surgery Completed Hernia repair Completed 1Diabetic Eye Exam: 11/2017-cataract 2Diabetic Eye Exam-Normal exam. Social History Social History [...] Reg Smoking Cessation Counseling No entered on: 07/08/18 1Last Appt: 2012, has appt February on [address] Finch. Assessment and Plan No data available for this section
--- OUTSIDE RECORDS SUMMARY | 2018-09-16 11:48 | XMS REPORT | Summary of Care ---
Author Author Caren Alarcon LVN Organization Unknown Address [facility] Phone Unavailable Care Team Providers Care Quilt Sewer Name Role Phone Caren Alarcon LVN Unavailable Unavailable PARAMJIT P.A., TERI Unavailable Unavailable HEMALATHA Jones, RACHEL Unavailable Unavailable BROOK HERNANDEZ [place], WILLOW [place] Unavailable Unavailable BROOK Jones, WILLOW Unavailable Unavailable AL HERNANDEZ, HEATHER MARIO Unavailable Unavailable STEVE HERNANDEZ [place], MIRTHA SOTO Unavailable Unavailable Unavailable Unavailable Functional Status Name [...] Z91.81) Status: Active Depression screening negative (V79.0, Z13.31) Status: Active Need for pneumococcal vaccination (V03.82, Z23) Status: Active History of essential hypertension (V12.59, Z86.79) Status: Active Pedal edema (782.3, R60.0) Status: Active Chronic anticoagulation (V58.61, Z79.01) Status: Active 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, 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 Persistent atrial fibrillation (427.31, I48.1) Status: Active Generalized muscle weakness (728.87, M62.81) Status: Active BMI 39.0-39.9,adult (V85.39, Z68.39) Status: Active Seasonal allergic rhinitis (477.9, J30.2) Status: Active Hematuria (599.70, R31.9) Status: Active Gout (274.9, M10.9) Status: Active Chronic obstructive pulmonary disease, unspecified COPD type (496, J44.9) Status: Active Acute bronchitis, bacterial (466.0, J20.8) Status: Active CKD (chronic kidney disease), stage III (585.3, N18.3) Status: Active History of malignant neoplasm of endometrium (V10.42, Z85.42) Status: Resolved Diabetes mellitus (250.00, E11.9) Status: Active Urinary incontinence (788.30, R32) Status: Active Lumbar spinal stenosis (724.02, M48.061) Status: Active Medications Name Dates Details Atorvastatin Calcium 10 MG Oral Tablet TAKE 1 TABLET DAILY. Active Levemir 100 UNIT/ML Subcutaneous Solution INJECT 15 UNIT At Bedtime PER PATIENT, DOSE BETWEEN 15-18 UNITS AT BEDTIME, DEP ENDING ON BLOOD SUGAR * Refills: 0 Active [...] 1 TABLET DAILY. * Refills: 0 Active traMADol HCl - 50 MG Oral Tablet TAKE 1 TABLET EVERY 4 TO 6 HOURS NEEDED. * Quantity: 60 Refills: 0 PARAMJIT P.A., TERI * Start : 19-Jun-2016 Active NIFEdipine ER 30 MG Oral Tablet Extended Release 24 Hour TAKE 1 TABLET DAILY. * Refills: 0 Active ProAir HFA 108 (90 Base) MCG/ACT Inhalation Aerosol Solution INHALE 1 TO 2 PUFFS EVERY 4 TO 6 HOURS NEEDED. * Quantity: 1 Refills: 0 RACHEL PENNY M.D. * Start : 18-Oct-2017 Active 8.5 GM Inhaler Uloric 40 MG Oral Tablet TAKE 1 TABLET DAILY. * Refills: 0 Active Nystatin 067588 UNIT/GM External Cream APPLY 2-3 TIMES DAILY TO AFFECTED AREA(S). * Quantity: 2 Refills: 2 PARAMJIT P.A., TERI * Start : 02-Jul-2018 Active 30 GM Tube Nystatin 259730 UNIT/GM External Powder APPLY 2-3 TIMES DAILY TO AFFECTED AREA(S). * Quantity: 1 Refills: 2 PARAMJIT P.A., TERI * Start : 02-Jul-2018 Active 60 GM Bottle traMADol HCl - 50 MG Oral Tablet * Refills: 0 * Start : 05-Sep-2018 Active fentaNYL 12 MCG/HR Transdermal Patch 72 Hour * Refills: 0 * Start : 05-Sep-2018 Active HYDROmorphone HCl - 2 MG Oral Tablet * Refills: 0 * Start : 05-Sep-2018 Active Allergies and Adverse Reactions Name Dates Details No Known Allergies (Allergy) Status: Active Past Medical History Name Dates Details History of Acute cystitis with hematuria (595.0, N30.01) Status: Resolved History of Acute pharyngitis due to other specified organisms (462, J02.8) Status: Resolved History of atrial fibrillation (V12.59, Z86.79) Status: Resolved History of contact dermatitis (V13.3, Z87.2) Status: Resolved History of Fatty liver (571.8, K76.0) Status: Resolved History of hematuria (V13.09, Z87.448) Status: Resolved History of herpes zoster (V12.09, Z86.19) Status: Resolved History of malignant neoplasm of endometrium (V10.42, Z85.42) Status: Resolved History of Sepsis due to Escherichia coli (038.42, A41.51) Status: Resolved History of Skin candidiasis (112.3, B37.2) Status: Resolved History of Symptoms of upper respiratory infection (URI) (786.09, R09.89) Status: Resolved History of urinary frequency (V13.09, Z87.898) Status: Resolved History of urinary tract infection (V13.02, Z87.440) Status: Resolved History of urinary tract infection (V13.02, Z87.440) Status: Resolved History of urinary tract infection (V13.02, Z87.440) Status: Resolved Personal history of urinary tract infection (V13.02, Z87.440) Status: Resolved Procedures Procedure Dates Details History of Arthrotomy Of Knee With Open Meniscus Repair Completed History of Inguinal Hernia Repair Completed Immunization Name Dates Details Pneumovax 23 25 MCG/0.5ML Injection Injectable on: 30-Aug-2013 Fluzone INJ Lot #: [id number] on: 15-Apr-2014 Fluzone Quadrivalent 0.5 ML Intramuscular Suspension on: 04-May-2015 Prevnar 13 Intramuscular Suspension Lot #: [id number] on: 23-Sep-2015 Influenza on: 21-Apr-2016 Fluzone Quadrivalent 0.5 ML Intramuscular Suspension on: 22-Mar-2018 Family History Name Dates Details Family history of Leukemia (V16.6) Status: Active Name Dates Details Family history of Hypertension (V17.49) Status: Active Family history of Stroke Syndrome (V17.1) Status: Active Family history of diabetes mellitus (V18.0, Z83.3) Status: Active Social History Name Dates Details - Status: Name Dates Details Never smoker Vital Signs Date Test Result Details No Known Vitals to report Results Date Description Value Details Results not documented Plan of Care Name Dates Details Planned Observations Planned Goals not documented Instructions Name Dates Details Instructions not documented Encounters Appointment; NELIDA SHERMAN, P.A. Encounter Diagnosis: Problem not documented On: 28-Sep-2016 13:15 Appointment; EB MCCLELLAND NP Encounter Diagnosis: Problem not documented On: 02-Nov-2016 12:30 Appointment; NELIDA SHERMAN, P.AEliazar Encounter Diagnosis: Problem not documented On: 25-Dec-2016 10:00 Appointment; NELIDA SHERMAN, P.AEliazar Encounter Diagnosis: Problem not documented On: 28-Dec-2016 12:45 Appointment; ELVI CURRAN NP Encounter Diagnosis: Problem not documented On: 05-Jan-2017 9:30 Appointment; NELIDA SHERMAN P.A. Encounter Diagnosis: Problem not documented On: 09-Jan-2017 10:15 Appointment; JACKSON MARTINEZ M.D. Encounter Diagnosis: Problem not documented On: 01-Feb-2017 9:30 Appointment; TERI YUSUF P.A. Encounter Diagnosis: Problem not documented On: 07-Mar-2017 13:15 Appointment; NELIDA SHERMAN P.A. Encounter Diagnosis: Problem not documented On: 02-Apr-2017 14:45 Appointment; MIGDALIA TAPIA M.D. Encounter Diagnosis: Problem not documented On: 29-Apr-2017 10:30 Appointment; RACHEL PENNY M.D. Encounter Diagnosis: Problem not documented On: 18-Oct-2017 11:30 Appointment; NELIDA SHERMAN P.A. Encounter Diagnosis: Problem not documented On: 19-Nov-2017 14:15 Appointment; TERI YUSUF P.A. Encounter Diagnosis: Problem not documented On: 02-Jul-2018 13:00
[2018-09-16] MEDS ORDERED: CEFTRIAXONE SOD 1 GM/NS 50 ML 50 ML IV ONE (12:45)
--- NOTE | 2018-09-16 13:11 | Diagnostic Imaging Report ---
A single frontal view of the chest. HISTORY: Weakness, UTI COMPARISON: Lung bases on a CT of the abdomen and pelvis from May 25, 2018. DISCUSSION: Portable technique, limits sensitivity of the exam. Tubes/Lines: None Lungs and pleura: The left basilar volume loss is likely stable when allowing for differences in modalities, underlying pathology could be obscured. The small lung nodules are likely below the resolution of chest radiographs. No evidence of a consolidative pneumonia or pulmonary alveolar edema. No definite pleural effusion or pneumothorax is identified. Heart and mediastinum: The cardiomediastinal silhouette appears unremarkable. Bones and soft tissues: Appear unremarkable, given this limited exam. IMPRESSION: 1. Stable left lung base atelectasis versus scarring. 2. No pneumonia or pulmonary edema. 3. Given the very small pulmonary nodules seen at the lung bases on the comparison CT of the abdomen and pelvis, if this patient has a known malignancy or risk factor for lung malignancy such as a significant smoking history, consider a follow-up nonemergent CT of the chest without contrast to completely evaluate the lungs. Signed by: Dr. Lalo Ferrera D.O., M.M.M. on 09/16/2018 1:07 PM
== END 2018-09-16 13:31 | disposition home or self-care (01) ==
LOC: FSED 11:38
DX: R53.1 Weakness (principal); N30.90 Cystitis, unspecified without hematuria; I10 Essential (primary) hypertension; E11.9 Type 2 diabetes mellitus without complications; I48.91 Unspecified atrial fibrillation
CPT/HCPCS: 71045; 80053; 81003; 82553; 83880; 84484; 85025; 87086; 87186; 99284; J0696

== ENCOUNTER 2019-08-19 09:44 | Inpatient (IN) | payer MEDICARE, OTHER ==
[~2019-08-19] VITALS: Ht 157.5 cm; Wt 89.0 kg
--- OUTSIDE RECORDS SUMMARY | 2019-08-19 09:47 | XMS REPORT | Summary of Care ---
Author Author NELIDA MAGANA Organization Unknown Address Unknown Phone Unavailable Care Team Providers Care Telecommunication Tower Technician Name Role Phone WHIT Santiago, NELIDA Unavailable Unavailable PARAMJIT Santiago, TERI Unavailable Unavailable HEMALATHA Jones, RACHEL Unavailable Unavailable BROOK HERNANDEZ [place], WILLOW [place] Unavailable Unavailable BROOK Jones, WILLOW Unavailable Unavailable AL HERNANDEZ, HEATHER MARIO Unavailable Unavailable STEVE HERNANDEZ [place], MIRTHA SOTO Unavailable Unavailable WHIT DE GUZMAN, NELIDA Unavailable Unavailable Unavailable Unavailable Functional Status Name [...] 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 Persistent atrial fibrillation (427.31, I48.19) Status: Active Generalized muscle weakness (728.87, M62.81) [...] Lumbar spinal stenosis (724.02, M48.061) Status: Active Endometrial cancer, grade I (182.0, C54.1) Status: Active Weakness (780.79, R53.1) Status: Active Recurrent UTI (599.0, N39.0) Status: Active Foul smelling urine (791.9, R82.90) Status: Active Fatigue (780.79, R53.83) Status: Active Medications Name Dates Details Atorvastatin [...] DAILY * Refills: 0 Active Vitamin D 50 MCG (1999 [place]) Oral Capsule TAKE 1 CAPSULE DAILY * [...] 50 MG Oral Tablet TAKE 1 TABLET BY MOUTH TWICE DAILY NEEDED * Quantity: 60 Refills: 1 NELIDA MAGANA * Start : 19-Jun-2016 Active NIFEdipine ER [...] TABLET DAILY. * Refills: 0 Active Nystatin 711436 UNIT/GM External Cream APPLY 2-3 TIMES DAILY TO AFFECTED AREA(S). * Quantity: 2 Refills: 2 PARAMJIT P.A., TERI * Start : 02-Jul-2018 Active 30 GM Tube Nystatin 438342 UNIT/GM External Powder APPLY 2-3 TIMES DAILY TO AFFECTED AREA(S). * Quantity: 1 Refills: 2 PARAMJIT P.A., TERI * Start : 02-Jul-2018 Active 60 GM Bottle traMADol HCl - 50 MG Oral Tablet * Refills: 0 * Start : 05-Sep-2018 Active Zofran 2 MG/ML SOLN * Refills: 0 Active Telmisartan 80 MG Oral Tablet TAKE 1 TABLET ONCE DAILY. * Refills: 0 Active Allergies and [...] Injectable on: 30-Aug-2013 Fluzone INJ Lot #: [id number] on: 15-Apr-2014 Fluzone Quadrivalent 0.5 ML Intramuscular Suspension on: 04-May-2015 Prevnar 13 Intramuscular Suspension Lot #: [id number] on: 23-Sep-2015 Influenza on: 21-Apr-2016 Fluzone Quadrivalent [...] Goals not documented Interventions Provided Medication Changes* traMADol HCl - 50 MG Oral Tablet - Renew Instructions Name Dates Details Instructions not documented Encounters Appointment; RACHEL PENNY M.D. Encounter Diagnosis: Problem not documented On: 18-Oct-2017 11:30 Appointment; NELIDA SHERMAN P.A. Encounter Diagnosis: Problem not documented On: 19-Nov-2017 14:15 Appointment; TERI YUSUF P.A. Encounter Diagnosis: Problem not documented On: 02-Jul-2018 13:00 Appointment; NELIDA SHERMAN P.A. Encounter Diagnosis: Problem not documented On: 18-Nov-2018 12:45 Appointment; NELIDA SHERMAN P.A. Encounter Diagnosis: Problem not documented On: 26-Jan-2019 14:45
[2019-08-19] MEDS ORDERED: ONDANSETRON HCL INJ 2MG/ML 2ML 2 MG/ML VIAL IV STA (09:58)
[2019-08-19] MEDS ORDERED: CEFTRIAXONE SOD 1 GM/NS 50 ML 50 ML IV ONE (11:00)
[2019-08-19] MEDS ORDERED: LEVEMIR100 UNIT/1 SQ (11:03)
[2019-08-19] MEDS ORDERED: ATORVASTATIN CA10 MG PO (11:03)
[2019-08-19] MEDS ORDERED: SINGULAIR10 MG PO (11:03)
[2019-08-19] MEDS ORDERED: ZOFRAN4 MG PO (11:03)
[2019-08-19] MEDS ORDERED: MICARDIS40 MG PO (11:03)
[2019-08-19] MEDS ORDERED: HUMALOG100 UNIT/1 (11:03)
[2019-08-19] MEDS ORDERED: ELIQUIS2.5 MG PO (11:03)
[2019-08-19] MEDS ORDERED: VITAMIN D32000 UNI1 (11:03)
[2019-08-19] MEDS ORDERED: FUROSEMIDE40 MG PO (11:03)
[2019-08-19] MEDS ORDERED: ULORIC40 MG PO (11:03)
[2019-08-19] MEDS ORDERED: OSTEO BI-FLEX1 EAC2 (11:03)
[2019-08-19] MEDS ORDERED: PANTOPRAZOLE SO40 MG PO (11:03)
[2019-08-19] MEDS ORDERED: BUDESONIDE0.5 MG/2 M NEB (11:03)
[2019-08-19] MEDS ORDERED: URSODIOL300 MG PO (11:03)
[2019-08-19] MEDS ORDERED: MULTAQ 400MG T400 MG PO (11:03)
[2019-08-19] MEDS ORDERED: ALBUTEROL0.63 MG/3 INH (11:03)
--- NOTE | 2019-08-19 11:16 | Diagnostic Imaging Report ---
EXAM: CT Abdomen and Pelvis WITHOUT intravenous contrast INDICATION: Nausea, vomiting, abdominal pain COMPARISON: CT abdomen pelvis of 05/25/2018 TECHNIQUE: Abdomen and pelvis were scanned utilizing a multidetector helical scanner from the lung base to the pubic symphysis without administration of IV contrast. Coronal and sagittal reformations were obtained. IV CONTRAST: None ORAL CONTRAST: Water COMPLICATIONS: None RADIATION DOSE: Total DLP: 845.9 mGy*cm Dose modulation, iterative reconstruction, and/or weight based adjustment of the mA/kV was utilized to reduce the radiation dose to as low as reasonably achievable. FINDINGS: LOWER THORAX: Coronary artery atherosclerotic calcifications. Small sliding hiatal hernia. HEPATOBILIARY: No focal liver lesion. Normal gallbladder. SPLEEN: No splenomegaly. PANCREAS: No focal masses or ductal dilatation. ADRENALS: No adrenal nodules. KIDNEYS/URETERS: No hydronephrosis or renal calculi. Unchanged bilateral renal cysts, most notably a large exophytic right lower pole cyst measuring up to 5.7 cm. PELVIC ORGANS/BLADDER: Status post hysterectomy. PERITONEUM / RETROPERITONEUM: Trace free fluid in the pelvis. LYMPH NODES: No lymphadenopathy. VESSELS: Scattered atherosclerotic calcifications of the nonaneurysmal abdominal aorta and major branches. GI TRACT: No abnormal bowel thickening. No bowel obstruction. Mild diverticulosis without CT evidence of diverticulitis. BONES AND SOFT TISSUES: No acute osseous injury. No suspicious lytic or blastic lesions. Degenerative changes of the visualized spine. IMPRESSION: No acute findings in the abdomen or pelvis. Signed by: Tico Napoles MD on 08/19/2019 11:13 AM
--- NOTE | 2019-08-19 11:23 | Diagnostic Imaging Report ---
EXAMINATION: CXR 2 VIEW - HOPD INDICATION: Cough COMPARISON: Chest radiograph of 09/16/2018 FINDINGS: LINES/TUBES:None LUNGS:Increased AP diameter of the chest. Likely bilateral upper lobe predominant emphysematous changes. No focal consolidation or pulmonary edema. PLEURA:No pleural effusion or pneumothorax. MEDIASTINUM:The cardiomediastinal silhouette appears normal in size and shape. Atherosclerotic calcifications of the thoracic aorta. BONES/SOFT TISSUES:No acute osseous injury. ABDOMEN:No free air under the diaphragm. IMPRESSION: No focal pneumonia or pulmonary edema. Signed by: Tico Napoles MD on 08/19/2019 11:20 AM
[2019-08-19] MEDS ORDERED: SODIUM CHLORIDE FLUSH 10 ML SYR INJ PRN (11:45)
[2019-08-19] MEDS ORDERED: DEXTROSE 50% SYRINGE 50 ML IV PRN (11:45)
[2019-08-19] MEDS ORDERED: ONDANSETRON HCL INJ 2MG/ML 2ML 2 MG/ML VIAL IV PRN (11:45)
[2019-08-19] MEDS ORDERED: TAMIFLU75 MG PO (13:39)
--- NOTE | 2019-08-19 14:59 | NUR ---
[facility] CALLED FOR PT. TRANSPORT TO [facility]. ETA 30-45MIN
--- NOTE | 2019-08-19 15:23 | NUR ---
EMS ARRIVAL TO TRANSPORT PT
--- NOTE | 2019-08-19 15:33 | NUR ---
REPORT GIVEN TO SAULO ORTEGA AT THIS TIME
[2019-08-19 15:40] VITALS: BP 136/63
--- NOTE | 2019-08-19 15:40 | NUR ---
Received patient via stretcher from free standing ER. AAOX3 to time, person, place. Respirations even and unlabored. Denies pain at this time. Oriented patient to room. Instructed to use call light for assistance. Voiced understanding.
[2019-08-19 16:00] VITALS: BP 136/63
[2019-08-19] MEDS ORDERED: ELLURA PO (16:52)
[2019-08-19] MEDS ORDERED: NIFEDIPINE ER30 M1 PO (16:52)
[2019-08-19] MEDS ORDERED: SENNA LAX8.6 MG PO (16:52)
[2019-08-19] MEDS ORDERED: SENNOSIDES 8.6 MG TAB PO PRN (17:00)
[2019-08-19] MEDS ORDERED: SODIUM CHLORIDE 0.9% 250ML 250 ML ONE (17:41)
[2019-08-19] MEDS ORDERED: MICARDIS80 MG PO (17:54)
--- NOTE | 2019-08-19 18:00 | NUR ---
Patient aware of urine culture orders. States " I will let you know when I need to void"
[2019-08-19] MEDS: INSULIN REGULAR, HUMAN 100 UNIT/1 ML 3ML VIAL SQ SCH ×2 (18:12→21:15)
[2019-08-19] MEDS: ACETAMINOPHEN 1000 MG/100 ML IV SCH ×2 (18:25→18:27)
[2019-08-19] MEDS: APIXAB 2.5 MG TABLET PO SCH (18:25)
[2019-08-19] MEDS: DRONEDARONE 400 MG TAB PO SCH (18:26)
--- NOTE | 2019-08-19 19:26 | NUR ---
Report given to oncoming nurse of patient's status. No s/s of acute distress noted.
[2019-08-19] MEDS: ALBUTEROL SULF 0.083% NEB SOLN 3 ML NEB INH SCH (19:45)
[2019-08-19] MEDS: BUDESONIDE 0.5MG/2 ML NEB NEB SCH (19:45)
[2019-08-19 20:12] VITALS: BP 141/64
[2019-08-19 20:25] LABS: BILIRUBIN,URINE NEGATIVE (NEGATIVE); CLARITY,URINE CLOUDY (CLEAR); COLOR,URINE STRAW (YELLOW); KETONES,URINE NEGATIVE (NEGATIVE); LEUKOCYTE ESTERASE ,URINE TRACE (NEGATIVE); NITRITE,URINE NEGATIVE (NEGATIVE); PROTEIN,URINE DIPSTICK 2+ (NEGATIVE); URINE UROBILINOGEN 0.2 mg/dL (0.2 - 1)
[2019-08-19 20:41] LABS: BACTERIA,URINE RARE /HPF; EPITHELIAL CELLS,URINE FEW /LPF; RBC,URINE 21-50 /HPF (0-5); WBC,URINE (MAN) 0-5 /HPF (0-5)
[2019-08-19 21:00] VITALS: BP 141/64
[2019-08-19] MEDS: MONTELUKAST SODIUM 10 MG TAB PO SCH (21:14)
[2019-08-19] MEDS: ATORVASTATIN 10 MG TAB PO SCH (21:14)
[2019-08-19] MEDS: URSODIOL 300 MG CAP PO SCH (21:14)
[2019-08-19] MEDS: INSULIN GLARGINE 100 UNITS/ML VIAL SQ SCH (21:15)
[2019-08-20] VITALS (8 sets, daily range): BP systolic 129–191; BP diastolic 59–79
[2019-08-20 05:33] LABS: BASOPHILS % 0.4 % (0.0-1.0); EOSINOPHILS % 0.6 % (0.0-6.0); HEMATOCRIT 36.6 % (34.2-44.1); HEMOGLOBIN 11.7 g/dL (12.0-16.0); LYMPHOCYTES # (AUTO) 0.6 (1.0-3.2); LYMPHOCYTES % 8.1 % (18.0-39.1); MEAN CORPUSCULAR HEMOGLOBIN 30.7 pg (28-32); MEAN CORPUSCULAR VOLUME 96.1 fL (81-99); MONOCYTES # (AUTO) 0.5 (0.2-0.8); MONOCYTES % 7.4 % (4.4-11.3); NEUTROPHILS # (AUTO) 5.8 (2.1-6.9); NEUTROPHILS % 83.1 % (38.7-80.0); PLATELET COUNT 208 x10e3/uL (140-360); RED BLOOD COUNT 3.81 x10e6/uL (3.6-5.1); RED CELL DISTRIBUTION WIDTH 14.3 % (11.7-14.4)
[2019-08-20 05:49] LABS: ALBUMIN 2.8 g/dL (3.5-5.0); ALBUMIN/GLOBULIN RATIO 0.9 (0.8-2.0); CALCIUM 9.9 mg/dL (8.4-10.2); CREATININE, SERUM 1.35 mg/dL (0.57-1.11)
[2019-08-20 06:02] LABS: CHOL/HDL RATIO 2.9 (3.0-3.6)
[2019-08-20] MEDS: ONDANSETRON HCL 4 MG ORAL DISINTEGRATING TAB PO PRN (06:14)
[2019-08-20] MEDS: ACETAMINOPHEN 1000 MG/100 ML IV SCH ×2 (06:25)
[2019-08-20] MEDS ORDERED: ZOLPIDEM TARTRATE 5 MG TAB PO PRN (06:45)
[2019-08-20] MEDS ORDERED: ONDANSETRON HCL INJ 2MG/ML 2ML 2 MG/ML VIAL IV PRN (06:45)
--- NOTE | 2019-08-20 06:47 | NUR ---
H&P PCP / cc: flank pain HPI: 83yoF, admitted with dysuria and fever/flank pain, found to have hematuria and pyelonephritis. Symptoms for 4 days; PMH: DM2, HTN, Endometrial cancer dx 2017, s/p hysterectomy s/p recurrence in 2018 s/p XRT, COPD, ambulatory dysfunction using walker, Phsx: hysterectomy, knee, Allergies; see emr Fh/Sh; ; no cigs meds; see MAR ROS: no cp/sob/dizziness/PERRY/vision changes/skin rash/confusion/focal limb weakness v/s; revd PE tired appearing anicteric ns1s2 mod bs soft nd; FLANKS MILDLY TENDER no e/t skin dry flat affect feliciano labs/meds revd A/P: Acute pyelonephritis ROMEL Hematuria Obesity BMI 37.9 DM2 PAF GERD Constipation PLAN IV abx; IVF; hba1c/lipids; Restart home meds; may need urology eval for hematuria. nephrology eval Hold lasix; use 1/2 NS SCD; ppi Lm Fernández MD, PhD.
[2019-08-20] MEDS ORDERED: SODIUM CHLORIDE 0.45% 1,000 ML IV ONE (07:00)
[2019-08-20] MEDS: ALBUTEROL SULF 0.083% NEB SOLN 3 ML NEB INH SCH ×4 (07:15→19:38)
[2019-08-20] MEDS: BUDESONIDE 0.5MG/2 ML NEB NEB SCH ×4 (07:15→19:38)
[2019-08-20] MEDS: INSULIN REGULAR, HUMAN 100 UNIT/1 ML 3ML VIAL SQ SCH ×4 (08:30→20:54)
[2019-08-20] MEDS: APIXAB 2.5 MG TABLET PO SCH ×2 (08:44→16:40)
[2019-08-20] MEDS: PANTOPRAZOLE SOD 40 MG TABEC PO SCH (08:44)
[2019-08-20] MEDS: DRONEDARONE 400 MG TAB PO SCH ×2 (08:44→16:40)
[2019-08-20] MEDS: CEFTRIAXONE SOD 1 GM/NS 50 ML 50 ML IV SCH (08:44)
[2019-08-20] MEDS: URSODIOL 300 MG CAP PO SCH ×3 (08:44→20:54)
[2019-08-20] MEDS: TELMISARTAN 40 MG TAB PO SCH (08:44)
[2019-08-20] MEDS: FEBUXOSTAT 80 MG TAB PO SCH (08:45)
[2019-08-20] MEDS: NIFEDIPINE CR 30 MG TAB PO SCH ×2 (08:45→20:55)
[2019-08-20] MEDS: ELLURA PO SCH (08:47)
[2019-08-20] MEDS ORDERED: FUROSEMIDE 40 MG TAB PO SCH (09:00)
--- NOTE | 2019-08-20 19:22 | NUR ---
Report given to oncoming nurse of patient's status. Resting in bed. AAOX3 to time, person, place. Respirations even and unlabored. Side rails upx2, call light within reach, daughter at bedside.
--- NOTE | 2019-08-20 19:26 | NUR ---
Patient states " I have CHF. I am concerned about being on IV fluids?" Notified of patient's concern. Clarification received.
[2019-08-20] MEDS: ACETAMINOPHEN 325 MG TAB PO PRN (19:32)
[2019-08-20] MEDS ORDERED: SODIUM CHLORIDE 0.45% 1,000 ML IV SCH (19:45)
[2019-08-20] MEDS: MONTELUKAST SODIUM 10 MG TAB PO SCH (20:54)
[2019-08-20] MEDS: ATORVASTATIN 10 MG TAB PO SCH (20:54)
[2019-08-20] MEDS: INSULIN GLARGINE 100 UNITS/ML VIAL SQ SCH (20:55)
[2019-08-21] VITALS (12 sets, daily range): BP systolic 122–144; BP diastolic 58–72
[2019-08-21] MEDS: ACETAMINOPHEN 325 MG TAB PO PRN ×2 (00:50→19:15)
[2019-08-21 05:22] LABS: BASOPHILS % 0.4 % (0.0-1.0); EOSINOPHILS # (AUTO) 0.1 (0.0-0.4); EOSINOPHILS % 1.1 % (0.0-6.0); HEMATOCRIT 33.1 % (34.2-44.1); HEMOGLOBIN 10.4 g/dL (12.0-16.0); LYMPHOCYTES # (AUTO) 0.6 (1.0-3.2); LYMPHOCYTES % 13.7 % (18.0-39.1); MEAN CORPUSCULAR HEMOGLOBIN 30.5 pg (28-32); MEAN CORPUSCULAR HGB CONC 31.4 g/dL (31-35); MEAN CORPUSCULAR VOLUME 97.1 fL (81-99); MONOCYTES # (AUTO) 0.6 (0.2-0.8); MONOCYTES % 12.1 % (4.4-11.3); NEUTROPHILS # (AUTO) 3.3 (2.1-6.9); PLATELET COUNT 194 x10e3/uL (140-360); RED BLOOD COUNT 3.41 x10e6/uL (3.6-5.1); RED CELL DISTRIBUTION WIDTH 14.4 % (11.7-14.4)
[2019-08-21 05:41] LABS: CALCIUM 9.1 mg/dL (8.4-10.2); CREATININE, SERUM 1.28 mg/dL (0.57-1.11)
[2019-08-21] MEDS: BUDESONIDE 0.5MG/2 ML NEB NEB SCH ×4 (07:25→19:54)
[2019-08-21] MEDS: ALBUTEROL SULF 0.083% NEB SOLN 3 ML NEB INH SCH ×4 (07:25→19:54)
--- NOTE | 2019-08-21 07:47 | NUR ---
IM- progress note O/N see below ROS: no cp/sob/dizziness/PERRY/vision changes/skin rash/confusion/focal limb weakness v/s; revd PE tired appearing anicteric ns1s2 mod bs soft nd; FLANKS MILDLY TENDER no e/t skin dry flat affect feliciano labs/meds revd A/P: Acute pyelonephritis ROMEL Hematuria Obesity BMI 37.9 DM2 PAF GERD Constipation PLAN IV abx; IVF; hba1c/lipids; Restart home meds; may need urology eval for hematuria. nephrology eval Hold lasix; use 1/2 NS SCD; ppi 08-21 CT no findings; urology eval; Bacteremia- f/u cultures; Likely POA. Ambulatory dysfunction- PT eval Lm Fernández MD, PhD.
[2019-08-21] MEDS: ONDANSETRON HCL 4 MG ORAL DISINTEGRATING TAB PO PRN (08:12)
[2019-08-21] MEDS: PANTOPRAZOLE SOD 40 MG TABEC PO SCH (08:14)
[2019-08-21] MEDS: DRONEDARONE 400 MG TAB PO SCH ×2 (08:17→16:31)
[2019-08-21] MEDS: URSODIOL 300 MG CAP PO SCH ×3 (08:17→20:58)
[2019-08-21] MEDS: TELMISARTAN 40 MG TAB PO SCH (08:19)
[2019-08-21] MEDS: FEBUXOSTAT 80 MG TAB PO SCH (08:20)
[2019-08-21] MEDS: ELLURA PO SCH (09:00)
[2019-08-21] MEDS: NIFEDIPINE CR 30 MG TAB PO SCH (09:00)
[2019-08-21] MEDS: APIXAB 2.5 MG TABLET PO SCH ×2 (09:38→16:31)
[2019-08-21] MEDS: CEFTRIAXONE SOD 1 GM/NS 50 ML 50 ML IV SCH (09:38)
--- NOTE | 2019-08-21 12:18 | Consultation ---
DATE OF CONSULTATION: 08/21/2019 Renal Consultation REASON FOR CONSULTATION: Chronic kidney disease and volume management. HISTORY OF PRESENT ILLNESS: An 83-year-old female with history of stage 3 chronic kidney disease and congestive heart failure, was admitted to [facility] for pyelonephritis. The patient states that she was doing well until a few days prior to admission when she developed nausea and vomiting. The patient denies having any fevers or chills, but states she was having lower back pain, developed anorexia, nausea, and was brought to the hospital. The patient was found to have urinary tract infection and was admitted with pyelonephritis. The patient is well known to me from outpatient clinic and Nephrology consultation was called for followup. REVIEW OF SYSTEMS: A 12-point review of systems completed. All systems negative other than mentioned in the HPI. PAST MEDICAL HISTORY: 1. Stage 3 chronic kidney disease. 2. Osteoporosis. 3. Diabetes type 2. 4. Vitamin D deficiency. 5. Dyslipidemia. 6. Hypertension. 7. Peptic ulcer disease. 8. Atrial fibrillation. 9. COPD. 10. History of endometrial cancer. PAST SURGICAL HISTORY: 1. Cataract surgery. 2. Hernia repair. 3. Arthroscopy of the knee. SOCIAL HISTORY: No alcohol. No tobacco. No IV drugs. FAMILY HISTORY: No kidney disease. ALLERGIES: CIPRO AND LEVAQUIN. CURRENT MEDICATIONS: See list, includes ceftriaxone. PHYSICAL EXAMINATION: VITAL SIGNS: Blood pressure 137/63, pulse 62, respiratory rate 21, and temperature 97.3. GENERAL: No apparent distress. HEENT: Oropharynx clear. No scleral icterus. No peripheral edema. NECK: Supple. No elevation of jugular venous pressure. No lymphadenopathy. CHEST: Clear to auscultation anteriorly bilaterally. CARDIOVASCULAR: Regular rhythm. No murmurs or rubs. ABDOMEN: Soft. Positive bowel sounds. No tenderness. No rebound. EXTREMITIES: No edema. No clubbing. No cyanosis. SKIN: Warm. IMAGING: CT of the abdomen and pelvis, no hydronephrosis or renal calculi. Bilateral renal cysts, large exophytic right lower pole cyst measuring up to 5.7 cm. No abnormal bowel thickening. No bowel obstruction. Mild diverticulosis without evidence of diverticulitis. No acute findings in the abdomen or pelvis. Chest x-ray, clear. LABORATORY DATA: Sodium 141, potassium 4, chloride 107, CO2 26, BUN 26, creatinine 1.28, estimated GFR 40, and glucose 138. White count 4, hemoglobin 10.4, hematocrit 33.1, and platelets 194. Urine; cloudy, 4+ blood, 21-50 rbc's, 0-5 wbc's. MICROBIOLOGY: Blood cultures pending. Urine culture, no growth. ASSESSMENT AND PLAN: 1. Stage 3 chronic kidney disease. The patient is approximately at baseline. We will put on very gentle maintenance fluids, as the patient has become volume overloaded while in the hospital in the past. Agree with holding diuretics. 2. Congestive heart failure, compensated. 3. Lytes acceptable. 4. Anemia secondary to chronic kidney disease. We will check iron stores. 5. Hematuria. Urine culture is negative. No evidence of stone. May need Urology evaluation. MD MAIA Montano/TU /[id number]
[2019-08-21] MEDS: INSULIN REGULAR, HUMAN 100 UNIT/1 ML 3ML VIAL SQ SCH ×4 (14:43→21:00)
[2019-08-21] MEDS: ATORVASTATIN 10 MG TAB PO SCH (20:58)
[2019-08-21] MEDS: MONTELUKAST SODIUM 10 MG TAB PO SCH (20:58)
[2019-08-21] MEDS: INSULIN GLARGINE 100 UNITS/ML VIAL SQ SCH (22:30)
[2019-08-22] VITALS (8 sets, daily range): BP systolic 125–160; BP diastolic 57–70
--- NOTE | 2019-08-22 02:25 | NUR ---
IM- progress note O/N see below ROS: no cp/sob/dizziness/PERRY/vision changes/skin rash/confusion/focal limb weakness v/s; revd PE tired appearing anicteric ns1s2 mod bs soft nd; FLANKS MILDLY TENDER no e/t skin dry flat affect feliciano labs/meds revd A/P: Acute pyelonephritis ROMEL Hematuria Obesity BMI 37.9 DM2 PAF GERD Constipation PLAN IV abx; IVF; hba1c/lipids; Restart home meds; may need urology eval for hematuria. nephrology eval Hold lasix; use 1/2 NS SCD; ppi 08-21 CT no findings; urology eval; Bacteremia- f/u cultures; Likely POA. Ambulatory dysfunction- PT eval 2-1 GNR bacteremia; cont IV abx; Lm Fernández MD, PhD.
[2019-08-22] MEDS: ACETAMINOPHEN 325 MG TAB PO PRN ×2 (02:32→18:01)
[2019-08-22 06:00] LABS: BASOPHILS % 0.7 % (0.0-1.0); EOSINOPHILS # (AUTO) 0.1 (0.0-0.4); EOSINOPHILS % 2.9 % (0.0-6.0); HEMATOCRIT 32.1 % (34.2-44.1); HEMOGLOBIN 10.3 g/dL (12.0-16.0); LYMPHOCYTES # (AUTO) 0.6 (1.0-3.2); LYMPHOCYTES % 13.3 % (18.0-39.1); MEAN CORPUSCULAR HEMOGLOBIN 31.2 pg (28-32); MEAN CORPUSCULAR HGB CONC 32.1 g/dL (31-35); MEAN CORPUSCULAR VOLUME 97.3 fL (81-99); MONOCYTES # (AUTO) 0.5 (0.2-0.8); MONOCYTES % 10.6 % (4.4-11.3); NEUTROPHILS # (AUTO) 3.2 (2.1-6.9); NEUTROPHILS % 71.6 % (38.7-80.0); PLATELET COUNT 213 x10e3/uL (140-360); RED CELL DISTRIBUTION WIDTH 14.4 % (11.7-14.4)
[2019-08-22 06:27] LABS: ANION GAP 12.3 mmol/L (8-16); CALCIUM 9.3 mg/dL (8.4-10.2); CREATININE, SERUM 1.47 mg/dL (0.57-1.11); POTASSIUM 4.3 mmol/L (3.5-5.1)
[2019-08-22] MEDS: BUDESONIDE 0.5MG/2 ML NEB NEB SCH ×4 (06:35→20:11)
[2019-08-22] MEDS: ALBUTEROL SULF 0.083% NEB SOLN 3 ML NEB INH SCH ×4 (06:35→20:11)
[2019-08-22 06:47] LABS: FERRITIN 126.25 ng/mL (4.63-204.00)
--- NOTE | 2019-08-22 07:00 | NUR ---
BEDSIDE SHIFT REPORT RECEIVED FROM THE COAL HANDLING SUPERVISOR RN. EDUCATED PT ABOUT FALL PRECAUTIONS. CALL LIGHT WITH IN EASY REACH. INSTRUCTED PT TO USE CALL LIGHT FOR ALL THE NEEDS. PT VERBALIZED UNDERSTANDING. BED IS LOW AND LOCKED. SIDE RAILS X2. BED ALARM IS ON. PT DENIES NEEDS AT THIS TIME.
[2019-08-22] MEDS: INSULIN REGULAR, HUMAN 100 UNIT/1 ML 3ML VIAL SQ SCH ×4 (08:30→21:00)
[2019-08-22] MEDS: DRONEDARONE 400 MG TAB PO SCH ×2 (08:36→18:00)
[2019-08-22] MEDS: CEFTRIAXONE SOD 1 GM/NS 50 ML 50 ML IV SCH (08:38)
[2019-08-22] MEDS: APIXAB 2.5 MG TABLET PO SCH ×2 (08:40→17:30)
[2019-08-22] MEDS: PANTOPRAZOLE SOD 40 MG TABEC PO SCH (08:45)
[2019-08-22] MEDS: ELLURA PO SCH (08:47)
[2019-08-22] MEDS: URSODIOL 300 MG CAP PO SCH ×3 (08:48→21:55)
[2019-08-22] MEDS: TELMISARTAN 40 MG TAB PO SCH (08:49)
[2019-08-22] MEDS: FEBUXOSTAT 80 MG TAB PO SCH (08:49)
[2019-08-22] MEDS: NIFEDIPINE CR 30 MG TAB PO SCH (08:50)
--- NOTE | 2019-08-22 12:30 | NUR ---
PT C/O IV SITE. MULTIPLE ATTEMPTS TO GET IV ACCESS BY THIS RN AND NETWORK DEVELOPMENT COORDINATOR. PAGED DR. SOTO AND NOTIFIED THE SAME. NEW ORDER FOR CENTRAL LINE IJ NON TUNNELED.
--- NOTE | 2019-08-22 13:30 | NUR ---
PT REFUSED CENTRAL LINE. PAGED DR. SOTO AND RADIOLOGY AND NOTIFIED THE SAME.
--- NOTE | 2019-08-22 14:00 | NUR ---
NEW IV STARTED RFA 20 G. PT TOLERATED WELL. DENIED FURTHER NEEDS. PT FAMILY AT BEDSIDE.
--- NOTE | 2019-08-22 19:00 | NUR ---
BEDSIDE SHIFT REPORT GIVEN TO THE DUMB WAITER OPERATOR RN. PT DENIED FURTHER NEEDS.
--- NOTE | 2019-08-22 19:15 | NUR ---
Pt visited in room during nursing rounds. Pt alert and oriented x3. Large bruise noted on left forearm all the way to left hand. Pt ambulatory with walker and standby assist prn. Pt on scheduled IV antibiotics. Call kent within reach. Will monitor closely.
[2019-08-22] MEDS: INSULIN GLARGINE 100 UNITS/ML VIAL SQ SCH (21:55)
[2019-08-22] MEDS: ATORVASTATIN 10 MG TAB PO SCH (21:55)
[2019-08-22] MEDS: MONTELUKAST SODIUM 10 MG TAB PO SCH (21:55)
[2019-08-23] VITALS (7 sets, daily range): BP systolic 147–169; BP diastolic 66–76
--- NOTE | 2019-08-23 00:10 | NUR ---
Dr. Turner came and visited patient in room. aware of patient condition.
[2019-08-23] MEDS: ACETAMINOPHEN 325 MG TAB PO PRN ×2 (01:35→08:01)
[2019-08-23 05:23] LABS: BASOPHILS % 0.4 % (0.0-1.0); EOSINOPHILS # (AUTO) 0.2 (0.0-0.4); EOSINOPHILS % 4.6 % (0.0-6.0); HEMOGLOBIN 10.7 g/dL (12.0-16.0); LYMPHOCYTES # (AUTO) 0.8 (1.0-3.2); MEAN CORPUSCULAR HEMOGLOBIN 30.3 pg (28-32); MEAN CORPUSCULAR HGB CONC 31.5 g/dL (31-35); MEAN CORPUSCULAR VOLUME 96.3 fL (81-99); MONOCYTES # (AUTO) 0.4 (0.2-0.8); MONOCYTES % 9.2 % (4.4-11.3); NEUTROPHILS # (AUTO) 3.1 (2.1-6.9); NEUTROPHILS % 68.1 % (38.7-80.0); PLATELET COUNT 242 x10e3/uL (140-360); RED BLOOD COUNT 3.53 x10e6/uL (3.6-5.1); RED CELL DISTRIBUTION WIDTH 14.4 % (11.7-14.4)
[2019-08-23 06:05] LABS: ANION GAP 12.3 mmol/L (8-16); CALCIUM 9.7 mg/dL (8.4-10.2); CREATININE, SERUM 1.11 mg/dL (0.57-1.11); POTASSIUM 4.3 mmol/L (3.5-5.1)
[2019-08-23] MEDS: ALBUTEROL SULF 0.083% NEB SOLN 3 ML NEB INH SCH ×4 (06:40→19:43)
[2019-08-23] MEDS: BUDESONIDE 0.5MG/2 ML NEB NEB SCH ×4 (06:40→19:43)
[2019-08-23] MEDS: PANTOPRAZOLE SOD 40 MG TABEC PO SCH (06:46)
--- NOTE | 2019-08-23 06:55 | NUR ---
received pt from previous shift. pt resting in bed
[2019-08-23] MEDS: INSULIN REGULAR, HUMAN 100 UNIT/1 ML 3ML VIAL SQ SCH ×4 (07:30→21:00)
[2019-08-23] MEDS: DRONEDARONE 400 MG TAB PO SCH ×2 (08:00→16:56)
[2019-08-23] MEDS: TELMISARTAN 40 MG TAB PO SCH (08:00)
[2019-08-23] MEDS: CEFTRIAXONE SOD 1 GM/NS 50 ML 50 ML IV SCH (08:00)
[2019-08-23] MEDS: APIXAB 2.5 MG TABLET PO SCH ×2 (08:00→16:56)
[2019-08-23] MEDS: URSODIOL 300 MG CAP PO SCH ×3 (08:00→21:50)
[2019-08-23] MEDS: FEBUXOSTAT 80 MG TAB PO SCH (08:01)
[2019-08-23] MEDS: NIFEDIPINE CR 30 MG TAB PO SCH (08:01)
--- NOTE | 2019-08-23 08:03 | NUR ---
IM- progress note O/N see below ROS: no cp/sob/dizziness/PERRY/vision changes/skin rash/confusion/focal limb weakness v/s; revd PE tired appearing anicteric ns1s2 mod bs soft nd; FLANKS MILDLY TENDER no e/t skin dry flat affect feliciano labs/meds revd A/P: Acute pyelonephritis ROMEL Hematuria E.coli bacteremia Severe sepsis with ROMEL- likely POA Obesity BMI 37.9 DM2 PAF GERD Constipation PLAN IV abx; IVF; hba1c/lipids; Restart home meds; may need urology eval for hematuria. nephrology eval Hold lasix; use 1/2 NS SCD; ppi 08-21 CT no findings; urology eval; Bacteremia- f/u cultures; Likely POA. Ambulatory dysfunction- PT eval 2-1 GNR bacteremia; cont IV abx; 2/2 E.coli bacteremia; cont ceftriaxone; ROMEL improving; recheck Blood cx. Severe SEpsis, likely POA- cont ceftriaxone and fluids. Use 1/2 NS @40/hr; SNF e dario Fernández MD, PhD.
[2019-08-23] MEDS ORDERED: SODIUM CHLORIDE 0.9% 50ML 50 ML ONE (08:32)
[2019-08-23] MEDS: ELLURA PO SCH (09:00)
[2019-08-23] MEDS: SODIUM CHLORIDE 0.45% 1,000 ML IV SCH (10:00)
--- NOTE | 2019-08-23 11:25 | NUR ---
Order received for long-term. Spoke to patient and her daughter Honey at bedside. Patient doesn't really want to go to SNF, but she has bacteremia and is walking 50-75 feet with PT. Still wearing O2. She states she has a company for home health that had been seeing her until April - someone out of [place], "service" something, unsure of name. States papers with name are at home. She lives with her daughters who take care of her. He daughters prefer [facility] though, they are going to think about it today, [facility] and make a decision tomorrow. Left long term care social worker's number at bedside for decision.
--- NOTE | 2019-08-23 12:44 | NUR ---
pt iv infiltrated. unable to find a vein to restart. charge nurse christie called to start iv
--- NOTE | 2019-08-23 13:21 | NUR ---
patient's IV has infiltrated to right FA. Patient has had multiple failed IV's since admission and is requiring IV antibiotics. Dr Fernández notified. Order received for PICC line placement. Spoke to the patient and her daughter about PICC line placement and continued need for IV antibiotics. Patient and daughter want to wait for patient's other daughter here to make a decision regarding PICC line placement. Patient to let staff know when she has made a decision regarding line placement.
--- NOTE | 2019-08-23 15:00 | NUR ---
dr sandhu aware pt has no iv access. pt and daughter refuses picc line. christie, charge nurse, to try and get iv line and talk about picc for iv access
--- NOTE | 2019-08-23 17:03 | NUR ---
christie charge nurse could not start iv, she asked for nurse Cyndee to try to start pt iv before shift change. pt and daughter aware and verbalizes understanding
[2019-08-23] MEDS: TRAMADOL HCL 50 MG TAB PO PRN (18:07)
--- NOTE | 2019-08-23 19:15 | NUR ---
Patient visited in room during nursing rounds. Patient alert and oriented x3. Patient's daughters (Lisa and Lars) at bedside and appear frustrated. Informed patient and family that the nurse (Larry) is aware the a peripheral IV is needed. Patient and daughters still refusing for a PICC line with concerns of infection and blood clots. Will notify charge nurse (Mitra Shea) of the situation and ask if she is ok to attempt for IV insertion. Pt ambulates with walker and assistance in room prn. Call kent within reach. Bed alarm active.
--- NOTE | 2019-08-23 21:30 | NUR ---
With assistance from ER charge nurse (Michell), a new peripheral IV was started on right upper chest (20 gauge). Patient refused for IVF (NS at 40ml/hr) to be connected. Patient stated she does not feel she is dehydrated at this time.
[2019-08-23] MEDS: INSULIN GLARGINE 100 UNITS/ML VIAL SQ SCH (21:50)
[2019-08-23] MEDS: MONTELUKAST SODIUM 10 MG TAB PO SCH (21:50)
[2019-08-23] MEDS: ATORVASTATIN 10 MG TAB PO SCH (21:50)
[2019-08-24] VITALS (8 sets, daily range): BP systolic 135–153; BP diastolic 60–68
[2019-08-24] MEDS: TRAMADOL HCL 50 MG TAB PO PRN ×2 (01:29→21:51)
[2019-08-24] MEDS: PANTOPRAZOLE SOD 40 MG TABEC PO SCH (06:29)
--- NOTE | 2019-08-24 06:34 | NUR ---
IM- progress note O/N see below ROS: no cp/sob/dizziness/PERRY/vision changes/skin rash/confusion/focal limb weakness v/s; revd PE tired appearing anicteric ns1s2 mod bs soft nd; FLANKS MILDLY TENDER no e/t skin dry flat affect feliciano labs/meds revd A/P: Acute pyelonephritis ROMEL Hematuria E.coli bacteremia Severe sepsis with ROMEL- likely POA Obesity BMI 37.9 DM2 PAF GERD Constipation PLAN IV abx; IVF; hba1c/lipids; Restart home meds; may need urology eval for hematuria. nephrology eval Hold lasix; use 1/2 NS SCD; ppi 1-31 CT no findings; urology eval; Bacteremia- f/u cultures; Likely POA. Ambulatory dysfunction- PT eval 2-1 GNR bacteremia; cont IV abx; 2/2 E.coli bacteremia; cont ceftriaxone; ROMEL improving; recheck Blood cx. Severe SEpsis, likely POA- cont ceftriaxone and fluids. Use 1/2 NS @40/hr; SNF eval 2-3 check renal fn; Daughter refused replacement of IV line yesterday, no abx given; Insist on first speaking with nephrology. F/u repeat blood cultures; Lm Fernández MD, PhD.
[2019-08-24] MEDS: BUDESONIDE 0.5MG/2 ML NEB NEB SCH ×4 (06:43→19:55)
[2019-08-24] MEDS: ALBUTEROL SULF 0.083% NEB SOLN 3 ML NEB INH SCH ×4 (06:43→19:55)
--- NOTE | 2019-08-24 07:00 | NUR ---
BEDSIDE SHIFT REPORT RECEIVED FROM THE COGNOS ARCHITECT RN. EDUCATED PT ABOUT FALL PRECAUTIONS. CALL LIGHT WITH IN EASY REACH. INSTRUCTED PT TO USE CALL LIGHT FOR ALL THE NEEDS. PT VERBALIZED UNDERSTANDING. BED IS LOW AND LOCKED. SIDE RAILS X2. PT DENIES NEEDS AT THIS TIME.
[2019-08-24] MEDS: INSULIN REGULAR, HUMAN 100 UNIT/1 ML 3ML VIAL SQ SCH ×4 (07:30→21:00)
[2019-08-24] MEDS: ELLURA PO SCH (09:00)
[2019-08-24] MEDS: DRONEDARONE 400 MG TAB PO SCH ×2 (09:00→16:31)
--- NOTE | 2019-08-24 09:00 | NUR ---
PT REFUSED IV FLUIDS. PAGED DR. SOTO AND INFORMED THE SAME.
[2019-08-24] MEDS: FEBUXOSTAT 80 MG TAB PO SCH (09:19)
[2019-08-24] MEDS: TELMISARTAN 40 MG TAB PO SCH (09:19)
[2019-08-24] MEDS: NIFEDIPINE CR 30 MG TAB PO SCH (09:19)
[2019-08-24] MEDS: URSODIOL 300 MG CAP PO SCH ×3 (09:20→21:44)
[2019-08-24] MEDS: CEFTRIAXONE SOD 1 GM/NS 50 ML 50 ML IV SCH (09:20)
[2019-08-24] MEDS: SODIUM CHLORIDE 0.45% 1,000 ML IV SCH (09:29)
[2019-08-24] MEDS: APIXAB 2.5 MG TABLET PO SCH ×2 (10:00→17:28)
--- NOTE | 2019-08-24 11:10 | NUR ---
IMM letter delivered and explained to pt. She verbalized understanding. States she's ready to go home. Signed copy placed in chart. Copy to pt.
[2019-08-24 16:26] LABS: ANION GAP 15.3 mmol/L (8-16); CALCIUM 9.5 mg/dL (8.4-10.2); CREATININE, SERUM 1.05 mg/dL (0.57-1.11); POTASSIUM 4.3 mmol/L (3.5-5.1)
--- NOTE | 2019-08-24 19:00 | NUR ---
BEDSIDE SHIFT REPORT GIVEN TO THE INSURANCE EXAMINER RN. PT DENIED FURTHER NEEDS.
--- NOTE | 2019-08-24 20:00 | NUR ---
RECEIVED PT IN BED AOX3 RESPIRATIONS ARE EVEN AND UNLABORED .DENIES PAIN .IV AT RT UPPER CHEST .TELE #3 SHOWS SB ..BRUISES BILATERAL ARMS .BD LOWEST POSITION .CALL LIGHT WITH IN REACH .CONTINUE TO MONITOR
[2019-08-24] MEDS: INSULIN GLARGINE 100 UNITS/ML VIAL SQ SCH (21:00)
[2019-08-24] MEDS: ATORVASTATIN 10 MG TAB PO SCH (21:44)
[2019-08-24] MEDS: MONTELUKAST SODIUM 10 MG TAB PO SCH (21:44)
[2019-08-25] VITALS (7 sets, daily range): BP systolic 140–150; BP diastolic 62–73
--- NOTE | 2019-08-25 06:13 | NUR ---
PT SLEPT DURING THE SHIFT .C/O PAIN X1 AND GIVEN ORDERED PAIN MEDICATION .NO ACUTE DISTRESS NOTED .CALL LIGHT WITH IN REACH .CONTINUE TO MONITOR
--- NOTE | 2019-08-25 06:22 | NUR ---
IM- progress note O/N see below ROS: no cp/sob/dizziness/PERRY/vision changes/skin rash/confusion/focal limb weakness v/s; revd PE tired appearing anicteric ns1s2 mod bs soft nd; FLANKS MILDLY TENDER no e/t skin dry flat affect feliciano labs/meds revd A/P: Acute pyelonephritis ROMEL Hematuria E.coli bacteremia Severe sepsis with ROMEL- likely POA Obesity BMI 37.9 DM2 PAF GERD Constipation PLAN IV abx; IVF; hba1c/lipids; Restart home meds; may need urology eval for hematuria. nephrology eval Hold lasix; use 1/2 NS SCD; ppi 1-31 CT no findings; urology eval; Bacteremia- f/u cultures; Likely POA. Ambulatory dysfunction- PT eval 2-1 GNR bacteremia; cont IV abx; 2/2 E.coli bacteremia; cont ceftriaxone; ROMEL improving; recheck Blood cx. Severe SEpsis, likely POA- cont ceftriaxone and fluids. Use 1/2 NS @40/hr; SNF eval 2-3 check renal fn; Daughter refused replacement of IV line yesterday, no abx given; Insist on first speaking with nephrology. F/u repeat blood cultures; 2-4 improving; D#6/7 IV abx; then plan for 7 days PO abx; repeat blood cultures has remained negative; cont PT. plan for Home with PT. check renal labs Lm Fernández MD, PhD.
--- NOTE | 2019-08-25 07:00 | NUR ---
BEDSIDE SHIFT REPORT RECEIVED FROM THE RESEARCH ENGINEER RN. EDUCATED PT ABOUT FALL PRECAUTIONS. CALL LIGHT WITH IN EASY REACH. INSTRUCTED PT TO USE CALL LIGHT FOR ALL THE NEEDS. PT VERBALIZED UNDERSTANDING. BED IS LOW AND LOCKED. SIDE RAILS X2. BED ALARM IS ON. PT DENIES NEEDS AT THIS TIME.
[2019-08-25] MEDS: ALBUTEROL SULF 0.083% NEB SOLN 3 ML NEB INH SCH ×4 (07:10→18:53)
[2019-08-25] MEDS: BUDESONIDE 0.5MG/2 ML NEB NEB SCH ×4 (07:10→18:53)
--- NOTE | 2019-08-25 07:27 | NUR ---
BEDSIDE REPORT GIVEN TO THE ONCOMING NURSE
[2019-08-25 08:01] LABS: ANION GAP 12.5 mmol/L (8-16); POTASSIUM 4.5 mmol/L (3.5-5.1)
[2019-08-25 08:02] LABS: CALCIUM 9.6 mg/dL (8.4-10.2); CREATININE, SERUM 1.17 mg/dL (0.57-1.11)
[2019-08-25] MEDS: PANTOPRAZOLE SOD 40 MG TABEC PO SCH (08:30)
[2019-08-25] MEDS: INSULIN REGULAR, HUMAN 100 UNIT/1 ML 3ML VIAL SQ SCH ×4 (08:30→21:00)
[2019-08-25] MEDS: DRONEDARONE 400 MG TAB PO SCH ×2 (09:00→17:00)
[2019-08-25] MEDS: ELLURA PO SCH (09:00)
[2019-08-25] MEDS: FEBUXOSTAT 80 MG TAB PO SCH (09:07)
[2019-08-25] MEDS: TELMISARTAN 40 MG TAB PO SCH (09:08)
[2019-08-25] MEDS: NIFEDIPINE CR 30 MG TAB PO SCH (09:09)
[2019-08-25] MEDS: URSODIOL 300 MG CAP PO SCH ×3 (09:09→21:33)
[2019-08-25] MEDS: CEFTRIAXONE SOD 1 GM/NS 50 ML 50 ML IV SCH (09:13)
[2019-08-25] MEDS: SODIUM CHLORIDE 0.45% 1,000 ML IV SCH (10:00)
[2019-08-25] MEDS: APIXAB 2.5 MG TABLET PO SCH ×2 (10:00→17:55)
--- NOTE | 2019-08-25 11:50 | NUR ---
Received order for home health this AM. SANDY spoke to pt and her daughter Lars at bedside. Pt states that she would prefer to have outpatient therapy. States she had home health previously with [facility]. States therapy at home really did nothing for her. SANDY informed Dr. Fernández of pt's preference. He stated it was ok to set up outpatient therapy. Informed him that we need a signed order. Awaiting response. SANDY called Dr. Fernández' office to see if we could fax over order form for [facility]. Was informed by office staff that they don't fax. But she will also leave him a message.
[2019-08-25] MEDS: FUROSEMIDE 20 MG TAB PO SCH (12:28)
--- NOTE | 2019-08-25 14:26 | NUR ---
Dr. Fernández returned signed copy of PT order form. Facesheet and order form faxed to outpatient rehab services at [phone] / P [phone].
--- NOTE | 2019-08-25 15:04 | NUR ---
Nutrition Screen Note RD Recommendation for Physician: - Continue current diet Plan of Care: RD following, monitoring for tolerance and adequacy Nutrition reason for involvement: LOS Primary Diagnose(s): UTI, pyelonephritis, vomiting, HTN PMH: DM2, HTN, endometrial cancer 2017 with hysterectomy and XRT through 2019, COPD Ht: 62 in Wt: 196.31 lb BMI: 35.9 kg/m2 IBW: [address] Assessment: (08/25) 83 YOF admitted for UTI and pyelonephritis, seen today for LOS. 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 Pt reports she was only able to eat 2 of her 3 meals a day SENIOR PROJECT ACCOUNTANT and felt "too full" to eat dinner at night. Pt reports chronic intermittent N/V 2/2 radiation therapy for 1 year now. Pt reports nausea recently, however no vomiting. Pt reports UBW of 205# and that her wt fluctuates depending on how much lasix she needs to take at home, wt changes due to fluid shifts. Pt denies any difficulties chewing or swallowing. Pt with no questions or concerns at time of visit. Chart reviewed. Labs and meds reviewed. Pt discussed during am rounds, pending discharge with home health. Will continue to monitor. Current Diet: 1800 ADA, Cardiac Malnutrition Evaluation (08/25/19) The patient does not meet criteria for a specified degree of malnutrition at this time. Will re-evaluate at follow-up as appropriate. Energy intake: <75% of estimated energy requirements for >7 days- SENIOR PROJECT ACCOUNTANT Weight loss: Does not meet criteria, wt changes due to fluid shifts- pt on lasix at home Fat loss: none, ample skinfold thickness to arm Muscle loss: none, shoulder round, clavicle not visible Supporting Evidence: Fluid accumulation: BENEDICTO Functional Status: not assessed Diet Education Needs Assessment: Diet education not indicated at this time. Diet tolerance: tolerating Nutrition Care Level: low Signed: Carmela Rojas RD, LD, [facility]
--- NOTE | 2019-08-25 19:00 | NUR ---
BEDSIDE SHIFT REPORT GIVEN TO THE SUPERVISOR LEAD BURNING RN. PT DENIED FURTHER NEEDS.
--- NOTE | 2019-08-25 19:51 | NUR ---
RECEIVED PT IN BED AOX3 RESPIRATIONS ARE EVEN AND UNLABORED .DENIES PAIN . BED LOWEST POSITION .CALL LIGHT WITH IN REACH .CONTINUE TO MONITOR
[2019-08-25] MEDS: INSULIN GLARGINE 100 UNITS/ML VIAL SQ SCH (21:00)
[2019-08-25] MEDS: MONTELUKAST SODIUM 10 MG TAB PO SCH (21:33)
[2019-08-25] MEDS: ATORVASTATIN 10 MG TAB PO SCH (21:33)
[2019-08-26] VITALS: BP 122/86
[2019-08-26 04:00] VITALS: BP 166/72
[2019-08-26 06:04] LABS: ANION GAP 13.2 mmol/L (8-16); CALCIUM 8.8 mg/dL (8.4-10.2); CREATININE, SERUM 1.13 mg/dL (0.57-1.11); POTASSIUM 3.2 mmol/L (3.5-5.1)
--- NOTE | 2019-08-26 06:14 | NUR ---
PT RESTED DURING THE NIGHT DENIES PAIN .NO ACUTE DISTRESS NOTED .CALL LIGHT WITH IN REACH .CONTINUE TO MONITOR
[2019-08-26] MEDS ORDERED: KEFLEX500 MG PO (06:31)
--- NOTE | 2019-08-26 06:33 | NUR ---
D/C summary Principal dx: Acute pyelonephritis ROMEL Hematuria E.coli bacteremia Severe sepsis with ROMEL- likely POA Obesity BMI 37.9 secondary dx: DM2 PAF GERD Constipation PLAN IV abx; IVF; hba1c/lipids; Restart home meds; may need urology eval for hematuria. nephrology eval Hold lasix; use 1/2 NS SCD; ppi 1- CT no findings; urology eval; Bacteremia- f/u cultures; Likely POA. Ambulatory dysfunction- PT eval 2-1 GNR bacteremia; cont IV abx; 2/2 E.coli bacteremia; cont ceftriaxone; ROMEL improving; recheck Blood cx. Severe SEpsis, likely POA- cont ceftriaxone and fluids. Use 1/2 NS @40/hr; SNF eval 2-3 check renal fn; Daughter refused replacement of IV line yesterday, no abx given; Insist on first speaking with nephrology. F/u repeat blood cultures; 2-4 improving; D#6/7 IV abx; then plan for 7 days PO abx; repeat blood cultures has remained negative; cont PT. plan for Home with PT. check renal labs d/c home with keflex for 7 days f/u pcp 1 week stable d/c>35mins Lm Fernández MD, PhD.
--- NOTE | 2019-08-26 07:00 | NUR ---
BEDSIDE SHIFT REPORT RECEIVED FROM THE VEGETABLE CUTTER RN. EDUCATED PT ABOUT FALL PRECAUTIONS. CALL LIGHT WITH IN EASY REACH. INSTRUCTED PT TO USE CALL LIGHT FOR ALL THE NEEDS. PT VERBALIZED UNDERSTANDING. BED IS LOW AND LOCKED. SIDE RAILS X2. BED ALARM IS ON. PT DENIES NEEDS AT THIS TIME.
[2019-08-26] MEDS: BUDESONIDE 0.5MG/2 ML NEB NEB SCH (07:16)
[2019-08-26] MEDS: ALBUTEROL SULF 0.083% NEB SOLN 3 ML NEB INH SCH (07:16)
--- NOTE | 2019-08-26 07:16 | NUR ---
BEDSIDE REPORT GIVEN TO THE ONCOMING NURSE
[2019-08-26] MEDS: INSULIN REGULAR, HUMAN 100 UNIT/1 ML 3ML VIAL SQ SCH (07:30)
--- NOTE | 2019-08-26 07:30 | NUR ---
PAGED DR. SOTO AND REPORTED THE K LEVEL 3.2 . WAITING FOR THE CALL BACK FROM THE
[2019-08-26 08:00] VITALS: BP 167/85
[2019-08-26 08:12] VITALS: BP 167/85
[2019-08-26] MEDS: PANTOPRAZOLE SOD 40 MG TABEC PO SCH (08:30)
[2019-08-26] MEDS: CEFTRIAXONE SOD 1 GM/NS 50 ML 50 ML IV SCH (09:00)
[2019-08-26] MEDS: DRONEDARONE 400 MG TAB PO SCH (09:00)
[2019-08-26] MEDS: ELLURA PO SCH (09:00)
--- NOTE | 2019-08-26 09:30 | NUR ---
PAGED DR. STOUT REGARDING PT K LEVEL 3.2
[2019-08-26] MEDS: URSODIOL 300 MG CAP PO SCH (09:39)
[2019-08-26] MEDS: FEBUXOSTAT 80 MG TAB PO SCH (09:40)
[2019-08-26] MEDS: NIFEDIPINE CR 30 MG TAB PO SCH (09:40)
[2019-08-26] MEDS: TELMISARTAN 40 MG TAB PO SCH (09:40)
[2019-08-26] MEDS: SODIUM CHLORIDE 0.45% 1,000 ML IV SCH (09:41)
[2019-08-26] MEDS: APIXAB 2.5 MG TABLET PO SCH (10:00)
--- NOTE | 2019-08-26 10:00 | NUR ---
SANDY called and spoke with Alyssa in outpatient therapy regarding status of referral. She states her coworker was working on the referral and will contact pt to schedule appointment. Patients [facility] Outpatient physical therapy [address], [address] [place] [address] Therapy information was printed and given to pt's daughter at bedside. IMM letter discussed with pt. She verbalized understanding and said she was ready to go home. Signed copy placed in chart. Copy to pt.
[2019-08-26] MEDS ORDERED: POTASSIUM CHLORIDE 20 MEQ TAB CR PO NR (10:30)
--- NOTE | 2019-08-26 10:30 | NUR ---
[facility] TO D/C PT PER DR. SOTO AND DR. STOUT.
[2019-08-26] MEDS: FUROSEMIDE 20 MG TAB PO SCH (10:32)
--- NOTE | 2019-08-26 11:20 | NUR ---
PT DISCHARGED HOME SAFELY WITH HER DAUGHTER. TELEMETRY AND IV REMOVED, TIP INTACT. DRESSING APPLIED. RX GIVEN. DISCHARGE INSTRUCTIONS GIVEN AND PATIENT VERBALIZED UNDERSTANDING. PT ESCORTED VIA WHEEL CHAIR TO THE PRIVATE AUTO AT THE FRONT ENTRANCE BY THE [facility]. PT DENIED FURTHER NEEDS.
== END 2019-08-26 11:27 | disposition home or self-care (01) | DRG 872 ==
LOC: FSED 09:44 → ERHOLD 11:36 → MED/SURG2 15:44
PROVIDERS: ADMIT Internal Medicine; ATTEND Internal Medicine
DX: A41.51 Sepsis due to Escherichia coli [E. coli] (principal); N17.9 Acute kidney failure, unspecified; N10 Acute pyelonephritis; Z16.12 Extended spectrum beta lactamase (ESBL) resistance; R31.9 Hematuria, unspecified; Z68.37 Body mass index [BMI] 37.0-37.9, adult; N18.3 Chronic kidney disease, stage 3 (moderate); I50.9 Heart failure, unspecified; R53.1 Weakness; B96.20 Unspecified Escherichia coli [E. coli] as the cause of diseases classified elsewhere; I48.0 Paroxysmal atrial fibrillation; Z79.01 Long term (current) use of anticoagulants; R65.20 Severe sepsis without septic shock; E11.22 Type 2 diabetes mellitus with diabetic chronic kidney disease; I12.9 Hypertensive chronic kidney disease with stage 1 through stage 4 chronic kidney disease, or unspecified chronic kidney disease; M81.0 Age-related osteoporosis without current pathological fracture; J44.9 Chronic obstructive pulmonary disease, unspecified; E78.5 Hyperlipidemia, unspecified; D63.1 Anemia in chronic kidney disease; R26.9 Unspecified abnormalities of gait and mobility
CPT/HCPCS: 36415; 71046; 74176; 80048; 80053; 80061; 81001; 81003; 82728; 82948; 83036; 83540; 83605; 84466; 84484; 85025; 87040; 87071; 87086; 87186; 87205; 87400; 93005; 94640; 96372; 97139; 99284; J0696; J1815; J1817; J2405; J7050; Q0162

== ENCOUNTER 2019-09-07 11:26 | Emergency (ER) | payer MEDICARE, OTHER ==
[~2019-09-07] VITALS: Ht 157.5 cm; Wt 92.1 kg
[~2019-09-07 11:26] MED LIST: ALBUTEROL0.63 MG/3 INH; ATORVASTATIN CA10 MG PO; BUDESONIDE0.5 MG/2 M NEB; ELIQUIS2.5 MG PO; ELLURA PO; FUROSEMIDE40 MG PO; HUMALOG100 UNIT/1; KEFLEX500 MG PO; LEVEMIR100 UNIT/1 SQ; MICARDIS40 MG PO; MICARDIS80 MG PO; MULTAQ 400MG T400 MG PO; NIFEDIPINE ER30 M1 PO; OSTEO BI-FLEX1 EAC2; PANTOPRAZOLE SO40 MG PO; SENNA LAX8.6 MG PO; SINGULAIR10 MG PO; TAMIFLU75 MG PO; ULORIC40 MG PO; URSODIOL300 MG PO; VITAMIN D32000 UNI1; ZOFRAN4 MG PO
--- NOTE | 2019-09-07 13:05 | Diagnostic Imaging Report ---
History: Low back pain radiates to right leg x2 weeks Comparison studies: Included lumbar spine from abdomen pelvis CT of 08/19/2019. Technique: Axial images were obtained to the lumbar spine Coronal and sagittal images reconstructed from the axial data. Dose modulation, iterative reconstruction, and/or weight based adjustment of the mA/kV was utilized to reduce the radiation dose to as low as reasonably achievable. Intravenous contrast: None Findings: Number of non-rib bearing vertebral bodies: 5 Alignment: Normal lumbar lordosis. As shaped lumbar curvature with upper lumbar dextrocurvature with apex at L2-L3 and lower thoracic dextrocurvature with apex at L4-L5. 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 No abdominal aortic aneurysm. Incidental exophytic left renal cyst along the left posterior interpolar kidney. Paraspinal muscles: Moderate symmetric fatty-replaced atrophic changes of the dorsal paraspinal muscular. Vertebrae: Bones appear demineralized. No fracture or infection. No lytic or blastic lesion. Degenerative changes: L1-L2: Mildly degenerated disc. No significant canal or foraminal stenosis. L2-L3: Moderately degenerated disc asymmetrically greater on the left along the concavity lumbar curvature where there are mixed cystic and sclerotic degenerative endplate changes. Minimal retrolisthesis of L2 on L3 with associated asymmetric left disc osteophyte complex results in severe left foraminal stenosis. No significant canal or right foraminal stenosis. L3-L4: Mildly degenerated disc. Symmetric disc bulge, thickened ligamentum flavum and mild facet arthrosis with mild canal and mild bilateral foraminal stenosis. L4-L5: Degenerated disc with vacuum phenomenon, slightly greater on the right along the concavity lumbar curvature where there are sclerotic degenerative endplate changes. Disc bulge with right foraminal disc osteophyte complex, thickened ligamentum flavum and bilateral facet arthrosis with moderate canal stenosis, moderate right foraminal stenosis and left foraminal stenosis. L5-S1: Mildly degenerated disc. Moderate bilateral facet arthrosis. Patent canal and foramina. Partially and sacroiliac joints: Mild degenerative changes bilaterally. IMPRESSION: 1. No acute osseous abnormalities. 2. Multilevel disc degeneration, greatest at L2-L3 and L4-5. 3. Moderate degenerative canal stenosis at L4-L5. 4. Degenerative foraminal stenosis, severe right at L4-L5 and moderate left at L2-L3. 5. Moderate L5-S1 facet arthrosis. Signed by: Dr. Lukas Loyola M.D. on 09/07/2019 1:03 PM
[2019-09-07] MEDS ORDERED: TYLENOL WITH C1 EACH PO (13:15)
[2019-09-07 14:01] VITALS: BP 155/55
[2019-09-07] MEDS ORDERED: DYMISTA NASAL S23 GM (19:50)
[2019-09-07] MEDS ORDERED: ULTRAM50 MG PO (19:50)
[2019-09-07] MEDS ORDERED: VITAMIN D32000 UNI2 (19:50)
[2019-09-07] MEDS ORDERED: OSTEO BI-FLEX1 EAC2 (19:50)
== END 2019-09-07 14:00 | disposition home or self-care (01) ==
LOC: FSED 11:26
DX: M48.061 Spinal stenosis, lumbar region without neurogenic claudication (principal); M47.26 Other spondylosis with radiculopathy, lumbar region; M51.16 Intervertebral disc disorders with radiculopathy, lumbar region
CPT/HCPCS: 72131; 99283

== ENCOUNTER 2020-05-09 23:22 | Observation (INO) | payer MEDICARE, OTHER ==
[~2020-05-09] VITALS: Ht 157.5 cm; Wt 92.1 kg
[~2020-05-09 23:22] MED LIST changes: +DYMISTA NASAL S23 GM; +TYLENOL WITH C1 EACH PO; +ULTRAM50 MG PO; +VITAMIN D32000 UNI2
[2020-05-09] MEDS ORDERED: ONDANSETRON HCL INJ 2MG/ML 2ML 2 MG/ML VIAL IV STA (23:31)
[2020-05-09] MEDS ORDERED: FAMOTIDINE 20 MG/2 ML VIAL IV ONE (23:45)
--- NOTE | 2020-05-10 00:08 | Emergency Department Note ---
History of Present Illnes History of Present Illness Chief Complaint: General Medicine Complaints History of Present Illness This is a 84 year old female hx afib COPD c/o SOB, coughing chest congestion, n/v and her monitor showed afib HR 110 . Arrival Mode: Car Onset (how long ago): hour(s) Radiation: Reports non-radiation Severity: moderate Onset quality: gradual Duration (how long): hour(s) Timing of current episode: constant Progression: unchanged Chronicity: recurrent Exacerbating factors: movement Associated symptoms: Reports cough, Reports malaise, Reports nausea/vomiting, Reports shortness of breath Treatments prior to arrival: none Past Medical/Family History Physician Review I have reviewed the patient's past medical and family history. Any updates have been documented here. Past Medical History Past Medical History: Hypertension, Diabetes, COPD, CHF, Asthma, CAD, GERD, Hyperlipedemia Other Medical History: CHRONIC BACK/HIP PAIN Past Surgical History: Hysterectomy, Knee Replacement, Hernia Repair, Cataract Removal Other Surgery: CATARACTS RIGHT KNEE SCOPE Social History Alcohol Use: None Any Illegal Drug Use: No TB Exposure/Symptoms: No Physically hurt or threatened: No Family History Family history of heart diseas: No Other Last Tetanus: UNK Any Pre-Existing Lines (PICC,: No Is patient up to date on immun: No Review of Systems Review of Systems Constitutional: Reports as per HPI, Reports malaise, Reports weakness EENTM: Reports no symptoms Cardiovascular: Reports as per HPI, Reports palpitations Respiratory: Reports no symptoms, Reports cough, Reports dyspnea, Reports dyspnea on exertion Gastrointestinal: Reports nausea, Reports vomiting Genitourinary: Reports no symptoms Musculoskeletal: Reports no symptoms Integumentary: Reports no symptoms Neurological: Reports no symptoms Psychological: Reports no symptoms Endocrine: Reports no symptoms Hematological/Lymphatic: Reports no symptoms Physical Exam Related Data Allergies: Coded Allergies: ciprofloxacin (Verified Allergy, Unknown, 08/19/19) CAN'T TAKE D/T TAKING MULTAQ levofloxacin (Verified Allergy, Unknown, 08/19/19) CAN'T TAKE D/T TAKING MULTAQ Vital signs reviewed: Yes Physical Exam CONSTITUTIONAL Constitutional: Present well-developed, Present obese, Present diaphoretic, Present ill appearing HENT HENT: Present normocephalic, Present atraumatic, Present oropharynx clear/moist, Present nose normal HENT L/R: Present left ext ear normal, Present right ext ear normal EYES Eyes: Reports PERRL, Reports conjunctivae normal NECK Neck: Present ROM normal PULMONARY Pulmonary: Present effort normal, Present breath sounds normal CARDIOVASCULAR Cardiovascular: Present regular rhythm, Present capillary refill normal, Present normal rate, Present LLE edema, Present RLE edema GASTROINTESTINAL Abdominal: Present soft, Present nontender, Present bowel sounds normal GENITOURINARY Genitourinary: Present exam deferred SKIN Skin: Present warm, Present dry MUSCULOSKELETAL Musculoskeletal: Present ROM normal NEUROLOGICAL Neurological: Present alert, Present oriented x 3, Present no gross motor or sensory deficits PSYCHOLOGICAL Psychological: Present mood/affect normal, Present judgement normal Results Laboratory Lab results reviewed: Yes Laboratory comments BNP 168, CR 1.4 Imaging Imaging results reviewed: Yes Impressions chf Procedures 12 Lead ECG Interpretation ECG Interpretation : ECG: ECG 1 Early Childhood Special Educator: Interpreted by ED physician Date: May 10, 2020 Time: 23:37 Prior ECG tracings: reviewed Rhythm: sinus rhythm Rate: normal BPM: 72 QRS axis: left ST segments normal: Yes Other findings: LVH Clinical Impression: abnormal ECG Assessment & Plan Medical Decision Making MDM CHF afib, infection, ACS Reassessment Reassessment time: 01:25 Reassessment sat 95 percent RA Assessment & Plan Final Impression: (1) CHF (congestive heart failure) (2) Afib (3) Nausea & vomiting (4) Shortness of breath Depart Disposition: ADMITTED Home Meds Active Scripts Acetaminophen With Codeine (TYLENOL WITH CODEINE #3 TABLET) 1 Each Tablet, 300 MG PO Q6H PRN for pain for 7 Days, #15 TAB Prov:JACKSON MADRID MD 09/07/19 Reported Medications Nifedipine (NIFEDIPINE ER) 30 Mg Tab.er.24, 30 MG PO PRN PRN for HIGH BLOOD PRESSURE 05/10/20 Tramadol Hcl (ULTRAM) 50 Mg Tablet, 50 MG PO BID, TAB 09/07/19 Azelastine/Fluticasone (DYMISTA NASAL SPRAY) 23 Gm [place].pump, BID 09/07/19 Cholecalciferol (Vitamin D3) (Vitamin D3) 2,000 Unit Tab.chew, BID 09/07/19 Glucosamine/D3/Boswellia Ilene (OSTEO BI-FLEX CAPLET) 1 Each Tablet, DAILY 09/07/19 Telmisartan (MICARDIS) 80 Mg Tablet, 80 MG PO DAILY 08/19/19 Sennosides (SENNA LAX) 8.6 Mg Tablet, 8.6 MG PO DAILY PRN for CONSTIPATION 08/19/19 Albuterol Sulfate (ALBUTEROL SULFATE) 0.63 Mg/3 Ml Vial.neb, 3 ML INH QID 08/19/19 Budesonide (BUDESONIDE) 0.5 Mg/2 Ml Ampul.neb, 2 ML NEB QID, EACH 08/19/19 Apixaban (Eliquis) 2.5 Mg Tablet, 2.5 MG PO BID 08/19/19 Ondansetron Hcl* (ZOFRAN*) 4 Mg Tablet, 8 MG PO Q8H PRN for NAUSEA AND VOMITING 08/19/19 Furosemide (FUROSEMIDE) 40 Mg Tablet, 20 MG PO Daily, #30 TAB 08/19/19 Febuxostat (ULORIC) 40 Mg Tablet, 40 MG PO DAILY 08/19/19 Dronedarone* (MULTAQ 400MG TABLETS*) 400 Mg Tab, 400 MG PO BID, TAB 08/19/19 Pantoprazole Sodium* (PROTONIX) 40 Mg Tablet.dr, 40 MG PO DAILY, TAB 08/19/19 Ursodiol (URSODIOL) 300 Mg Capsule, 300 MG PO DAILY 08/19/19 Montelukast Sodium (SINGULAIR) 10 Mg Tablet, 10 MG PO HS 08/19/19 Insulin Detemir (LEVEMIR) 100 Unit/1 Ml Vial, 15 UNITS SQ HS 08/19/19 Insulin Lispro (HUMALOG) 100 Unit/1 Ml Cartridge 08/19/19 Medications in the ED Famotidine 20 mg ONCE ONCE IV ; Start 05/09/20 at 23:45; Stop 05/09/20 at 23:46; Status DC Ondansetron HCl 8 mg NOW STAT IV ; Start 05/09/20 at 23:31; Stop 05/09/20 at 23:38; Status DC Physician Attestation Provider Attestation case discussed with ALESSIA Fontenot MD May 10, 2020 00:08
[2020-05-10] MEDS ORDERED: NITROGLYCERIN 2% OINT 1 GM PKT TOP ONE (00:15)
--- NOTE | 2020-05-10 00:29 | Diagnostic Imaging Report ---
EXAMINATION: CXR 1 [facility] INDICATION: AFib, heart failure COMPARISON: Chest x-ray 09/16/2018 FINDINGS: TUBES and LINES: None. LUNGS: Normal lung volumes. Chronic left basilar haziness, likely due to pericardial fat pad. No consolidations. PLEURA: No pleural effusion or pneumothorax. HEART AND MEDIASTINUM: Cardiac size is mildly enlarged. Aortic calcifications. BONES AND SOFT TISSUES: No acute osseous lesion. Soft tissues are unremarkable. Degenerative changes. UPPER ABDOMEN: No free air under the diaphragm. IMPRESSION: Mild cardiomegaly. Signed by: Chris Morataya DO on 05/10/2020 12:26 AM
[2020-05-10] MEDS ORDERED: ONDANSETRON HCL INJ 2MG/ML 2ML 2 MG/ML VIAL ONE (01:12)
[2020-05-10] MEDS ORDERED: NITROGLYCERIN 2% OINT 1 GM PKT ONE (01:12)
[2020-05-10] MEDS ORDERED: FAMOTIDINE 20 MG/2 ML VIAL IV ONE (01:12)
[2020-05-10] MEDS ORDERED: ACETAMINOPHEN 325 MG TAB PO PRN (01:15)
[2020-05-10] MEDS ORDERED: SODIUM CHLORIDE FLUSH 10 ML SYR INJ PRN (01:15)
[2020-05-10] MEDS ORDERED: HYDRALAZINE HCL 20 MG/ML VIAL IV PRN (01:15)
[2020-05-10] MEDS ORDERED: DEXTROSE 50% SYRINGE 50 ML IV PRN (01:15)
[2020-05-10] MEDS ORDERED: ASPIRIN 81 MG CHEW TAB PO ONE (01:15)
[2020-05-10] MEDS ORDERED: ONDANSETRON HCL INJ 2MG/ML 2ML 2 MG/ML VIAL IV PRN (01:15)
[2020-05-10] MEDS ORDERED: DIPHENHYDRAMINE HCL INJ 50 MG/ML VIAL IV PRN (01:15)
[2020-05-10] MEDS ORDERED: ZOLPIDEM TARTRATE 5 MG TAB PO PRN (01:15)
[2020-05-10] MEDS ORDERED: NIFEDIPINE ER30 M1 PO (01:16)
[2020-05-10] MEDS ORDERED: ASPIRIN 81 MG CHEW TAB ONE (01:53)
[2020-05-10 03:00] VITALS: BP_SYST 166; BP_SYST 196; BP_DIAS 72; BP_DIAS 80
[2020-05-10 03:30] VITALS: BP 148/67
--- NOTE | 2020-05-10 03:30 | NUR ---
Patient received via stretcher from [facility]. AAO x 3. Patient had no complaints of pain. Respirations even and non-labored. Admission history obtained. Initial physical assessment performed. Telemetry and Continuous Pulse Ox in place. Patient oriented to room, call light, visiting policy and plan of care. Safety measures implemented. Patient instructed to call for assistance when needed. Call light within reach.
[2020-05-10] MEDS ORDERED: PROBIOTIC250 MG PO (05:11)
[2020-05-10] MEDS ORDERED: DULCOLAX STOOL100 MG PO (05:11)
[2020-05-10 05:33] LABS: CREATINE KINASE 58 IU/L (29-168)
--- NOTE | 2020-05-10 06:30 | NUR ---
Dr. Zakia Jeffers notified of "Routine Consult". Reason: CHF
--- NOTE | 2020-05-10 07:00 | NUR ---
alking rounds done. Shift report given to oncoming nurse regarding patient's status.
--- NOTE | 2020-05-10 07:00 | NUR ---
Walking rounds done. Shift report given to oncoming nurse regarding patient's status.
[2020-05-10] MEDS ORDERED: INSULIN REGULAR, HUMAN 100 UNIT/1 ML 3ML VIAL SQ SCH (07:30)
[2020-05-10] MEDS ORDERED: FAMOTIDINE 20 MG TAB PO SCH (07:30)
[2020-05-10 07:59] VITALS: BP 148/67
[2020-05-10 08:00] VITALS: BP 131/62
[2020-05-10] MEDS ORDERED: FUROSEMIDE INJ 10 MG/ML 4 ML VIAL IV SCH (09:00)
--- OUTSIDE RECORDS SUMMARY | 2020-05-10 09:25 | XMS REPORT | Clinical Summary ---
Author Author ALFREDA [employer] [facility] [employer] [facility] Address Unknown Phone Unavailable Care Team Providers Care Firm Administrator Name Role Phone Ulisses Prabhakarie Yousuf PCP Allergies Comments Active Allergy Reactions Severity Noted Date itching Allopurinol Analogues Rash Low 04/04/20 17 Medications End Date Status Medication Sig Dispensed Refills Start Date Active calcium carbonate Take 600 mg 0 (OS-VJ) 600 mg (1,500 by mouth 2 mg) Tab (two) times daily with breakfast and dinner. Active twlohnoipid-V8-rjdlibiuk Take by 0 serr (OSTEO BI-FLEX) mouth. 1,500-400-100 mg-unit-mg Tab Active atorvastatin (LIPITOR) 10 Take 10 mg by 0 MG tablet mouth daily. Active insulin detemir (LEVEMIR) Inject 0 100 unit/mL injection subcutaneousl y nightly 33 units. Active pantoprazole (PROTONIX) Take 40 mg by 0 40 MG tablet mouth daily. Active cholecalciferol, vitamin Take 4,000 0 D3, 4,000 unit Tab Units by mouth daily. Active insulin lispro (HUMALOG) Inject 0 100 unit/mL subcutaneousl injectionIndications: y 3 (three) type 2 diabetes mellitus times daily before meals Takes sliding scale dose only . Active albuterol HFA (VENTOLIN Inhale 1 puff 0 HFA) 90 mcg/actuation by mouth via inhalerIndications: inhaler every chronic obstructive 6 (six) hours pulmonary disease as needed for Wheezing. Active montelukast (SINGULAIR) Take 10 mg by 0 10 mg tabletIndications: mouth every allergic rhinitis night as needed. Active AZELASTINE/FLUTICASONE 1 spray by 0 (DYMISTA [...] tablet mouth 2 (two) times daily. Active NIFEdipine (PROCARDIA-XL) Take 30 mg by 0 30 MG (OSM) 24 hr tablet mouth daily as needed (IF SBP > 150 mmghg). 05/11/2020 Active ursodiol (ACTIGALL) 300 Take 1 180 capsule 6 mg capsule capsule (300 9 mg total) by mouth 2 (two) times daily. Active traMADol (ULTRAM) 50 mg Take 1 tablet 0 tablet by mouth 2 9 (two) times daily as needed. Active telmisartan (MICARDIS) 80 Take 80 mg by 0 12/20 8/201 MG tablet mouth daily. 9 05/30/2019 Discontinued (Med History: P atient Reported Med no longer taking) aspirin 81 MG chewable Take 81 mg by 0 tablet mouth daily. 05/30/2019 Discontinued (Med History: P atient Reported Med no longer taking) canagliflozin (INVOKANA) Take by mouth 0 300 mg Tab daily. 05/30/2019 Discontinued (Med History: P atient Reported Med no longer taking) olmesartan (BENICAR) 40 Take 40 mg by 0 MG tablet mouth daily. 05/30/2019 Discontinued (Med History: P atient Reported Med no longer taking) sulfamethoxazole-trimetho Take 1 tablet 0 prim (BACTRIM,SEPTRA) by mouth 400-80 mg per tablet daily Has frequent UTIs that lead to URI. Used for UTI prophylaxis. . 05/30/2019 Discontinued (Med History: P atient Reported Med no longer taking) TRAMADOL HCL (TRAMADOL Take by 0 ORAL) mouth. 05/12/2019 Discontinued (Duplicate Ther apy) ursodiol (ACTIGALL) 300 Take 1 270 capsule 3 mg capsule capsule (300 9 mg total) by mouth 3 (three) times daily. Active Problems Problem Noted Date Renal insufficiency 05/30/2019 Liver fibrosis 01/29/2019 Endometrial cancer 07/02/2018 Cancer screening 04/09/2018 Diabetes mellitus 02/04/2013 Last Assessment & Plan: The most recent hemoglobin A1c from 01/19 was 8.7. Her treatment regimen was recently modified to include insuli n and is presently undergoing dose adjustments. Her non-compliance with di et and weight management and more recently the use of systemic steroids h ave made adequate control more difficult. Continued monitoring and man agement will be deferred to her caregivers non medical. Hyperlipidemia 02/04/2013 Last Assessment & Plan: Treated with atorvastatin. From a liver standpoint there is no contraindication for the continued use of cholesterol lowering agents including statins if deemed necessary. Optimal control of the hyperlipidemia will be essential to haley p prevent the accelerated progression of her liver disease. Lyla nued monitoring and management will be deferred to her treating physician. Abnormal liver function test 02/04/2013 Last Assessment & Plan: The patient's liver test abnormalities are likely related to fatty liver disease. However, a comprehensive eval uation will be completed to assess for metabolic, viral, genetic, and auto immune liver diseases to detect alternative etiologies and all comorbid conditions affecting hepatic function. The alkaline phosphatase is also dispro portionately abnormal and therefore a GGT will be requested to exclude any extrahepatic source(ie bone). If it remains abnormal further testing includ ing possibly and MRCP to assess bile duct anatomy will considered. Obesity 02/04/2013 Last Assessment & Plan: Current weight 199 lbs, with a BMI of 3 6.4 meets the definition of obesity and she has abdominal distribution of f at consistent with high probability of visceral fat and risk for non-alcoho lic fatty liver disease which can be an accelerant of hepatic fibrosis . A w eight reduction program is recommended that should include a healt hy low carbohydrate diet and exercise as tolerated. An initial goal should be a 10% total body weight loss since this disproportionately redu florencio visceral fat and can reverse fatty liver disease up to 90%. This lazaro uld benefit not only her general health but also her liver disease by el iminating a risk factor for fatty liver. Hypertension 02/04/2013 Last Assessment & Plan: Treated and stable. She will be referre d to her primary care provider for continued monitoring and management. Fatty liver 02/04/2013 Last Assessment & Plan: The patient presents with various risk factors for metabolic syndrome, and previous abdominal ultrasounds have bee n compatible with fatty liver disease. (these records have been reque sted for review) Ultrasound technology is generally reliable in de tecting steatosis but cannot distinguish between simple steatosis an d JAMES and a liver biopsy may be required to make this distinction, but for now is not recommended. Optimal control of these various risk factors i ncluding obesity, diabetes and hyperlipidemia will be essential to haley ballard prevent further progression of his liver disease. There is no proven medic al therapy for JAMES, but weight loss of 10% of body weight ameliorates hepat ic steatosis. Immunity status testing 02/04/2013 Last Assessment & Plan: All patients with chronic liver disease , regardless of etiology, should be immunized to prevent hepatitis A and he patitis B if they are not already immune. We will test for immunity to gal th viruses - vaccine recommendations will follow. Encounters Care Team Description Date Type Specialty Elvin Lopez NP Liver fibrosis; Fatty liver 05/09/2020 [facility] Radiology Encounter Elvin Lopez NP Liver fibrosis (Primary Dx); Fatty liver 05/04/2020 Orders Only Hepatology Mateo Phoenix MD 05/03/2020 Outside Orders Radiology Elvin Lopez NP Fatty liver (Primary Dx) 05/02/2020 Orders Only Hepatology after 05/10/2019 Family History Medical History Relation Name Comments Heart disease Father Cancer Mother leukemia Cancer Sister Unremarkable Sister Relation Name Status Comments Father Mother Sister Sister Alive Social History Date Tobacco Use Types Packs/Day Years Used Never Smoker Smokeless Tobacco: Never Used Drinks/Week oz/Week Comments Alcohol Use social, wine, 1 glas s No Sex Assigned at Date Recorded Not on file Last Filed Vital Signs Not on file Plan of Treatment Care Team Description Date Type Specialty Mateo Phoenix MD [address] [facility] [address] [place] [address] [phone] 05/19/2020 Video - Hepatology Telemedicine Health Maintenance Due Date Last Done Comments DIABETIC EYE EXAM 1945 DIABETIC FOOT EXAM 1945 URINE MICROALBUMIN 1945 MEDICARE ANNUAL WELLNESS 08/23/1999 (YEAR 2 or FIRST YEAR if no IPPE) HEMOGLOBIN A1C 02/04/2013 INFLUENZA VACCINE Completed 04/14/2020, 04/09/2018, 03/22/2018, Additional history exists PNEUMOCOCCAL 65+ YRS Completed 05/05/2020, 09/23/2015, 08/30/2013 Procedures Comments Procedure Name Priority Date/Time Associated Diag nosis US ABDOMEN COMPLETE Routine 05/09/2020 Liver fibr osis 8:55 AM CDT Fatty liver after 05/10/2019 Results * US abdomen complete (05/09/2020 8:55 AM CDT) Specimen Narrative Performed At FINAL REPORT [employer] TECHNIQUE: Grayscale ultrasound of the abdomen. INDICATION: liver fibrosis, fatty liver , screening for cancer. COMPARISON: Ultrasound from 05/07/2019. FINDINGS: MIDLINE VASCULATURE: The visualized inf erior vena cava is unremarkable. The maximum visualized ao rtic diameter is 2.2 cm. LIVER: The liver has a heterogeneous ec hotexture with questionable nodularity. The liver is diffusely incr eased in echogenicity.. No focal lesions. The main portal vein is patent and measures 1.1 cm in diameter. BILIARY: Gallbladder: No gallstones or sludge. T he gallbladder is mildly distended, possibly due to fasting. No pericholecystic fluid or wall thickening. Negative sonographic Molina sign. Common bile duct measures 0.5 cm, withi n normal limits. No intrahepatic biliary ductal dilatation. PANCREAS: Incompletely visualized due t o overlying bowel gas. The partially visualized pancreatic body is normal. SPLEEN: No splenomegaly. The spleen henri sures 7.7 cm in length. PERITONEUM: No free fluid. KIDNEYS: Normal in size bilaterally. No hydronephrosis. No sonographically evident solid mass lesi on. A right interpolar renal lesion is anechoic, has posterior acous tic enhancement, and measures 2 cm. This is consistent with a simple renal cyst. A right lower pole anechoic renal lesion with posterior ac oustic enhancement measures 7.4 x 4.8 x 6.6 cm and is consistent wi th a simple renal cyst. This previously measured 4.5 x 6.5 x 5.5 cm. A left interpolar anechoic renal lesion with posterior acoustic en hancement measures 1.6 x 1.3 x 1.8 cm and is consistent with a simple renal cyst. A left lower pole renal lesion with posterior acoustic en hancement measures 1.9 x 2.1 x 1.7 cm and is consistent with a simple renal cyst. No routine follow-up imaging is recommended. IMPRESSION: 1.Diffuse fatty infiltration of the stephanie er. The heterogeneous echotexture and questionable nodularity are concerning for fibrosis. 2.No focal hepatic lesion. Signed: Miles Childers MD Report Verified Date/Time: 05/09/2020 09:50:07 Procedure Note Interface, External Ris In - 05/09/2020 9:52 AM CDT FINAL REPORT TECHNIQUE: Grayscale ultrasound of the abdomen. INDICATION: liver fibrosis, fatty liver, screening for cancer. COMPARISON: Ultrasound from 05/07/2019. FINDINGS: MIDLINE VASCULATURE: The visualized inferior vena cava is unremarkable. The maximum visualized aortic diameter is 2.2 cm. LIVER: The liver has a heterogeneous echotexture with questionable nodularity. The liver is diffusely increased in echogenicity.. No focal lesions. The main portal vein is patent and measures 1.1 cm in diameter. BILIARY: Gallbladder: No gallstones or sludge. The gallbladder is mildly distended, possibly due to fasting. No pericholecystic fluid or wall thickening. Negative sonographic Molina sign. Common bile duct measures 0.5 cm, within normal limits. No intrahepatic biliary ductal dilatation. PANCREAS: Incompletely visualized due to overlying bowel gas. The partially visualized pancreatic body is normal. SPLEEN: No splenomegaly. The spleen measures 7.7 cm in length. PERITONEUM: No free fluid. KIDNEYS: Normal in size bilaterally. No hydronephrosis. No sonographically evident solid mass lesion. A right interpolar renal lesion is anechoic, has posterior acoustic enhancement, and measures 2 cm. This is consistent with a simple r enal cyst. A right lower pole anechoic renal lesion with posterior acoustic enhancement measures 7.4 x 4.8 x 6.6 cm and is consistent wit h a simple renal cyst. This previously measured 4.5 x 6.5 x 5.5 cm. A left interpolar anechoic renal lesion with posterior acoustic enhancement measures 1.6 x 1.3 x 1.8 cm and is consistent with a simple r enal cyst. A left lower pole renal lesion with posterior acoustic enhancement measures 1.9 x 2.1 x 1.7 cm and is consistent with a simple r enal cyst. No routine follow-up imaging is recommended. IMPRESSION: 1.Diffuse fatty infiltration of the live r. The heterogeneous echotexture and questionable nodularity are concerning for fibrosis. 2.No focal hepatic lesion. Signed: Miles Childers MD Report Verified Date/Time: 05/09/2020 09:50:07 Performing Organization Address City/State/Zipcode Ph one Number GE RIS after 05/10/2019 Insurance Type Payer Benefit Subscriber ID Effective Phone Address Plan / Dates Group Medicare MEDICARE MEDICARE A [id number] [id number] B resent OTHER-COMMERCIAL GENERIC [id number] 2002-P COMMERCIAL resent [phone] ([place]) [place] [address]
--- OUTSIDE RECORDS SUMMARY | 2020-05-10 09:25 | XMS REPORT | Clinical Summary ---
Author Author Al [facility] Organization [place] [facility] Address Unknown Phone Unavailable Care Team Providers Care Supervisor Tree Trimming Name Role Phone Asked, No Pcp PCP Unavailable Allergies No Known Active Allergies Medications End Date Status Medication Sig Dispensed Refills Start Date Active atorvastatin (LIPITOR) 10 Take 10 mg [...] 137-50 each nostril mcg/spray nightly. spray,non-aerosol Active telmisartan (MICARDIS) 40 Take 40 mg by 0 MG tablet mouth daily. Active NIFEdipine XL (PROCARDIA Take 30 mg by 0 XL) 30 MG 24 hr tablet mouth daily as needed. Take if SBP is > 150 Active apixaban (ELIQUIS) 2.5 mg Take 2.5 mg 0 tablet by mouth 2 (two) times a day. Active dronedarone (MULTAQ) 400 Take 400 mg 0 mg tablet by mouth 2 (two) times a day with meals. Active febuxostat (ULORIC) 40 mg Take 40 mg by 0 tablet mouth daily. Active furosemide (LASIX) 20 mg Take 20 mg by 0 tablet mouth daily. Active ondansetron (ZOFRAN) 4 MG Take 2 mg by 0 tablet mouth every 8 (eight) hours as needed for nausea or vomiting. Active budesonide (PULMICORT) Take 0.5 mg 0 0.5 mg/2 mL nebulizer by solution nebulization once daily. 2x/day Active albuterol sulfate Take 2.5 mg 0 (PROVENTIL) 2.5 mg/0.5 mL by solution for nebulization nebulization 4 (four) times a day. 09/23/2019 Discontinued (Stop Taking at Discharge) amLODIPine (NORVASC) 10 Take 10 mg by 0 MG tablet mouth daily. 10/05/2019 HYDROcodone-acetaminophen acute pain. 1 40 tablet 0 (NORCO) 5-325 mg per to 2 every 6 0 tabletIndications: acute hours if pain needed for pelvic fractures Active Problems Problem Noted Date Intractable back pain 09/23/2019 Dyspnea 04/10/2016 Encounters Care Team Description Date Type Specialty Marina Rasheed MD O'Dwyer, Steven Blackman MD Intractable back pain (Primary Dx) 09/23/2019 Emergency Orthopedic Surgery - 09/24/2019 after 05/10/2019 Surgical History Surgery Date Site/Laterality Comments HYSTERECTOMY HERNIA REPAIR CATARACT EXTRACTION, BILATERAL Medical History Medical History Date Comments Hypertension Diabetes mellitus (HCC) COPD (chronic obstructive pulmonary disease) (HCC) CKD (chronic kidney disease) CHF (congestive heart failure) (HCC) Endometrial cancer (HCC) A-fib (HCC) Social History Date Tobacco Use Types Packs/Day Years Used Never Smoker Smokeless Tobacco: Never Used Drinks/Week oz/Week Comments Alcohol Use No Sex Assigned at Date Recorded Not on file Last Filed Vital Signs Reading Time Taken Comments Vital Sign 138/65 09/24/2019 12:06 PM SENIOR QUALITY ANALYST Blood Pressure 64 09/24/2019 12:06 PM SENIOR QUALITY ANALYST Pulse 35.9 C (96.7 F) 09/24/2019 11:59 AM SENIOR QUALITY ANALYST Temperature 17 09/24/2019 12:06 PM SENIOR QUALITY ANALYST Respiratory Rate 92% 09/24/2019 11:59 AM SENIOR QUALITY ANALYST Oxygen Saturation - - Inhaled Oxygen Concentration - - Weight 157.5 cm (5' 2") 09/23/2019 12:55 PM SENIOR QUALITY ANALYST Height - - Body Mass Index Plan of Treatment Health Maintenance Due Date Last Done Comments DIABETES: RETINAL EYE 1933 EXAM DIABETIC FOOT EXAM 1943 SHINGLES VACCINES (#1) 1983 INFLUENZA VACCINE 02/20/2020 04/21/2016, 04/15/2014 65+ PNEUMOCOCCAL VACCINE Completed 09/23/2015, 08/30/2013 Procedures Comments Procedure Name Priority Date/Time Associated Diag nosis POC GLUCOSE Routine 09/24/2019 12:00 PM SENIOR QUALITY ANALYST POC GLUCOSE Routine 09/24/2019 8:26 AM SENIOR QUALITY ANALYST ESTIMATED GFR Routine 09/24/2019 4:00 AM SENIOR QUALITY ANALYST B NATRIURETIC PEPTIDE Routine 09/24/2019 4:00 AM SENIOR QUALITY ANALYST BASIC METABOLIC PANEL Routine 09/24/2019 4:00 AM SENIOR QUALITY ANALYST HC COMPLETE BLD COUNT Routine 09/24/2019 W/AUTO DIFF 4:00 AM SENIOR QUALITY ANALYST HEMOGLOBIN A1C Routine 09/24/2019 4:00 AM SENIOR QUALITY ANALYST URINALYSIS SCREEN AND Routine 09/24/2019 MICROSCOPY, WITH REFLEX 1:26 AM SENIOR QUALITY ANALYST TO CULTURE URINE CULTURE Routine 09/24/2019 1:26 AM SENIOR QUALITY ANALYST POC GLUCOSE Routine 09/23/2019 11:17 PM SENIOR QUALITY ANALYST MRI LUMBAR SPINE WO STAT 09/23/2019 CONTRAST 6:53 PM SENIOR QUALITY ANALYST ESTIMATED GFR STAT 09/23/2019 1:32 PM SENIOR QUALITY ANALYST COMPREHENSIVE METABOLIC STAT 09/23/2019 PANEL 1:32 PM SENIOR QUALITY ANALYST HC COMPLETE BLD COUNT STAT 09/23/2019 W/AUTO DIFF 1:32 PM SENIOR QUALITY ANALYST after 05/10/2019 Results * POC glucose (09/24/2019 12:00 PM SENIOR QUALITY ANALYST) Only the most recent of 3 results within the time period is included. [facility] POC glucose 137 (H) 65 - 99 mg/dL [place] Comment: YARSANI Manager Corporate Responsibility Name: [facility] Device ID: [id number] Chartable: H Notified RN Specimen Performing Organization Address City/[facility]/ZIP Code P lynette Number [facility] DEPARTMENT OF [address] [place] [address] PATHOLOGY AND GENOMIC MEDICINE [address] * Estimated GFR (09/24/2019 4:00 AM SENIOR QUALITY ANALYST) Only the most recent of 2 results within the time period is included. [facility] Estimated GFR 33 (A) mL/min/1.73 m2 [place] Comment: YARSANI [facility] Interpretation G1 >=90 Normal or high G2 60-89 Mildly decreased G3a 45-59 Mildly to moderately decreased G3b 30-44 Moderately to severely decreased G4 15-29 Severely decreased G5 <15 Kidney failure The eGFR was calculated using the Chronic Kidney Disease Epidemiology Collaboration (CKD-EPI) equation. Interpretation is based on recommendations of the National Kidney Foundation-Kidney Disease Outcomes Quality Initiative (NKF-KDOQI) published in 2014. Specimen Plasma specimen Performing Organization Address City/[facility] P lynette Number [facility] DEPARTMENT OF [address] [place] [address] PATHOLOGY AND GENOMIC MEDICINE [address] * CBC with platelet and differential (09/24/2019 4:00 AM SENIOR QUALITY ANALYST) Only the most recent of 2 results within the time period is included. [facility] WBC 5.20 4.50 - 11.00 k/uL [facility] RBC 3.55 (L) 4.20 - 5.50 m/uL [facility] HGB 10.8 (L) 12.0 - 16.0 g/dL [facility] HCT 34.9 (L) 37.0 - 47.0 % [facility] MCV 98.3 82.0 - 100.0 fL [facility] MCH 30.4 27.0 - 34.0 pg [facility] MCHC 30.9 (L) 31.0 - 37.0 g/dL [facility] RDW - SD 54.2 37.0 - 55.0 fL [facility] MPV 10.1 8.8 - 13.2 fL [facility] Platelet count 234 150 - 400 k/uL [facility] Nucleated RBC 0.00 /100 WBC [facility] Neutrophils 70.1 (H) 39.0 - 69.0 % [facility] Lymphocytes 16.9 (L) 25.0 - 45.0 % [facility] Monocytes 8.5 0.0 - 10.0 % [facility] Eosinophils 2.9 0.0 - 5.0 % [facility] Basophils 0.8 0.0 - 1.0 % [facility] Immature 0.8Comment: "Immature 0.0 - 1.0 % [facility] granulocytes granulocytes" (promyelocytes, METHOD IST myelocytes, metamyelocytes) [facility] Specimen Blood Performing Organization Address City/[facility] [place] [address] PATHOLOGY AND GENOMIC MEDICINE [address] * B natriuretic peptide (09/24/2019 4:00 AM SENIOR QUALITY ANALYST) BNP 146 (H) 0 - 100 pg/mL [facility] Specimen Blood Performing Organization Address City/[facility] [place] [address] PATHOLOGY AND GENOMIC MEDICINE [address] * Hemoglobin A1c (09/24/2019 4:00 AM SENIOR QUALITY ANALYST) Hemoglobin A1C 6.5 (H) 4.0 - 5.6 % [facility] Comment: YARSANI HbA1c cutoffs for diagnosing HOSPITAL diabetes: 4.0% - 5.6% = normal 5.7% - 6.4% = increased risk for diabetes (prediabetes)9 >=6.5% = diabetes9 Goals for glycemic control (ADA 2016) < 7.0% Target for non adults with diabetes. More or less stringent targets may be appropriate for individual patients. <7.5% Target for Children and adolescents with type 1 diabetes. Specimen Blood Performing Organization Address City/[facility]/[place] [address] PATHOLOGY AND GENOMIC MEDICINE [address] * Basic metabolic panel (09/24/2019 4:00 AM SENIOR QUALITY ANALYST) Sodium 144 135 - 148 mEq/L [facility] Potassium 4.2 3.5 - 5.0 mEq/L [facility] Chloride 110 98 - 112 mEq/L [facility] CO2 23 (L) 24 - 31 mEq/L [facility] Anion gap 11@ANIO 7 - 15 mEq/L [facility] BUN 33 (H) 8 - 23 mg/dL [facility] Creatinine 1.42 (H) 0.50 - 0.90 mg/dL [facility] Glucose 130 (H) 65 - 99 mg/dL [facility] Calcium 9.9 8.8 - 10.2 mg/dL [facility] Specimen Plasma specimen Performing Organization Address City/[facility] Code P lynette Number [facility] DEPARTMENT OF [address] [place] [address] PATHOLOGY AND [facility] MEDICINE [address] * Urinalysis screen and microscopy, with reflex to culture (09/24/2019 1:26 AM SENIOR QUALITY ANALYST) Specimen site Clean catch [facility] Color, UA Yellow [facility] Appearance, UA Hazy [facility] Specific 1.014 1.001 - 1.035 [place] [facility] pH, UA 5.0 5.0 - 8.5 [facility] Protein, UA Negative Negative [facility] Glucose, UA Negative Negative [facility] Ketones, UA Negative Negative [facility] Bilirubin, UA Negative Negative [facility] Blood, UA Negative Negative [facility] Nitrite, UA Negative Negative [facility] Urobilinogen, <2.0 <2.0 [facility] Leukocyte Negative Negative [place] esterase, [facility] Epithelial 5 /HPF [place] cells, [facility] WBC, UA 3 0 - 4 /HPF [facility] RBC, UA 1 0 - 5 /HPF [facility] Bacteria, UA None seen None seen [facility] Yeast, UA None seen [facility] Yeast with None seen [place] [facility] Hyaline casts, 5 /LPF [facility] Specimen Urine Performing Organization Address City/State/ZIP Code P lynette Number [facility] DEPARTMENT OF [address] [place] [address] PATHOLOGY AND GENOMIC MEDICINE [facility] [address] [place] [address] * Urine culture (09/24/2019 1:26 AM SENIOR QUALITY ANALYST) Urine culture SEE COMMENTComment: [place] Bacteriuria screen negative. [facility] Specimen Performing Organization Address City/State/ZIP Code P lynette Number [facility] DEPARTMENT OF [address] [place] [address] PATHOLOGY AND GENOMIC MEDICINE [address] * MRI Lumbar Spine Wo Contrast (09/23/2019 6:53 PM SENIOR QUALITY ANALYST) Specimen Narrative Performed At [facility] EXAMINATION: MRI LUMBAR SPINE WO CONT RAST CLINICAL HISTORY: L S-spine stenosis COMPARISON: None. FINDINGS: Lowermost functional disc space is assu med to be L5-S1. Mild retrolisthesis at L2-3. Heterogeneous bone marrow without focal lesion Visualized spinal cord is normal in diane earance. Multilevel disc space narrowing and end plate degenerative changes worst at L2-3. Acute insufficiency fracture of the rig ht sacral ala with involvement of S2 vertebral body. L1-2: No canal or foraminal narrowing. L2-3: Mild retrolisthesis, facet arthro sirisha and osteophytosis causes mild narrowing of the left foramen. No centr al canal narrowing. L3-4: Posterior disc bulge and bilatera l facet arthropathy causes mild narrowing of the foramina. No central canal narro wing. L4-5: Posterior disc bulge, bilateral f acet arthropathy, ligamentum flavum thickening causes moderate right and mi ld left foraminal narrowing. There is mild narrowing of the central canal. L5-S1: No central canal narrowing. Epid ural lipomatosis. Foramina are clear. IMPRESSION: Acute insufficiency fracture of the rig ht sacral ala and S2 vertebral body. Multilevel degenerative changes in the lumbar spine most prominent at L4-5. [facility]-[id number] Procedure Note Interface, Radiology Results Incoming - 09/23/2019 7:16 PM SENIOR QUALITY ANALYST EXAMINATION: MRI LUMBAR SPINE WO CONTRAST CLINICAL HISTORY: L S-spine stenosis COMPARISON: None. FINDINGS: Lowermost functional disc space is assumed to be L5-S1. Mild retrolisthesis at L2-3. Heterogeneous bone marrow without focal lesion Visualized spinal cord is normal in appearance. Multilevel disc space narrowing and endplate degenerative changes worst at L2-3. Acute insufficiency fracture of the right sacral ala with involvement of S2 vertebral body. L1-2: No canal or foraminal narrowing. L2-3: Mild retrolisthesis, facet arthropathy and osteophytosis causes mild narrowing of the left foramen. No central canal narrowing. L3-4: Posterior disc bulge and bilateral facet arthropathy causes mild narrowing of the foramina. No central canal narrowing. L4-5: Posterior disc bulge, bilateral facet arthropathy, ligamentum flavum thickening causes moderate right and mild left foraminal narrowing. There is mild narrowing of the central canal. L5-S1: No central canal narrowing. Epidural lipomatosis. Foramina are clear. IMPRESSION: Acute insufficiency fracture of the right sacral ala and S2 vertebral body. Multilevel degenerative changes in the lumbar spine most prominent at L4-5. [facility]-[id number] Performing Organization Address City/State/ZIP Code P lynette [facility] [address] [place] [address] * Comprehensive metabolic panel (09/23/2019 1:32 PM SENIOR QUALITY ANALYST) Sodium 142 135 - 148 mEq/L [facility] Potassium 4.8 3.5 - 5.0 mEq/L [facility] Chloride 107 98 - 112 mEq/L [facility] CO2 24 24 - 31 mEq/L [facility] Anion gap 11@ANIO 7 - 15 mEq/L [facility] BUN 35 (H) 8 - 23 mg/dL [facility] Creatinine 1.51 (H) 0.50 - 0.90 mg/dL [facility] Glucose 112 (H) 65 - 99 mg/dL [facility] Calcium 10.1 8.8 - 10.2 mg/dL [facility] Protein 6.9 6.3 - 8.3 g/dL [place] Comment: YARSANI [id number] g/dL [facility]OSPITAL 1 ypyz9620.4-7.6 g/dL 7 months-5yefq248.1-7.3 g/dL 1-2 .6-7.5 g/dL >3 .0-8.0 g/dL [id number] g/dL Albumin 3.1 (L) 3.5 - 5.0 g/dL [facility] A/G ratio 0.8 0.7 - 3.8 [facility] Alkaline 141 (H) 35 - 104 U/L [place] phosphatase [facility] AST 25 10 - 35 U/L [facility] ALT 17 5 - 50 U/L [facility] Total bilirubin 0.6 0.0 - 1.2 mg/dL [facility] Specimen Plasma specimen Performing Organization Address City/State/ZIP Code P lynette Number [facility] DEPARTMENT OF [address] [place] [address] PATHOLOGY AND GENOMIC MEDICINE [id number] [place] [address] after 05/10/2019 Insurance Type Payer Benefit Subscriber ID Effective Phone Address Plan / Dates Group Medicare MEDICARE MEDICARE [id number] [id number] [place], PART A AND resent [place] [employer] [id number] [id number] INS resent Advance Directives For more information, please contact: [phone] Patient Clinical Pharmacy Coordinator Explanation Type Date Recorded Advance Directives, Living Will and Medical Power of Glass Processing Worker
--- OUTSIDE RECORDS SUMMARY | 2020-05-10 09:27 | XMS REPORT | Continuity of Care Document ---
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 Role Phone [employer] Unavailable Un available Problems Problem Status Onset Date Classification Date Reported Comments Source LABS Active 04/16/2016 [facility] UROSEPSIS, CHRONIC KIDNEY DISEASE Active 04/07/2016 [facility] FEVER Active 04/07/2016 [facility] Discharge Diagnosis: Hyperkalemia 04/06/2016 04/09/2016 [facility] ABN LABS Active 04/06/2016 [facility] Discharge Diagnosis: Acute UTI 10/01/2015 10/04/2015 [facility] Discharge Diagnosis: Generalized weakness 10/01/2015 10/04/2015 [facility] WEAKNESS Active 10/01/2015 [facility] BLOOD IN URINE Active 09/22/2015 [facility] EYE REDNESS/EYE PAIN Active 05/02/2015 [facility] AECOPD, BRONCHITIS Active 02/26/2015 [facility] S.O.B Active 02/26/2015 [facility] Discharge Diagnosis: Acute bronchitis 10/10/2014 10/12/2014 [facility] CONGESTION Active 10/10/2014 [facility] Discharge Diagnosis: Cellulitis 08/22/2014 08/24/2014 [facility] LEG SWELLING Active 08/22/2014 [facility] Discharge Diagnosis: Acute Bronchitis 05/16/2014 05/19/2014 [facility] CONGESTED Active 05/16/2014 [facility] Upper respiratory infection (disorder) Resolved 01/19/2013 Problem 05/07/2020 Data migrated from [employer] on 02/04/15. [facility] [place], [facility] [place], [facility] [place] PNEUMONIA,DYSPNEA Active 01/07/2013 [facility] SHORTNESS OF BREATH Active 09/02/2012 [facility] REACTIVE AIRWAY, WHEEZING, PNEUMONIA Active 09/02/2012 [facility] FEVER,UTI Active 06/23/2012 [facility] RE-VISIT Active 06/23/2012 [facility] SICK Active 06/22/2012 [facility] Urinary tract infectious disease (disorder) Resolved 04/17/2012 Problem 05/07/2020 Data migrated from [employer] on 02/04/15. [facility] [place], [facility] [place], [facility] [place] Vitamin D deficiency (disorder) Active 04/16/2011 Problem 05/07/2020 Data migrated from [employer] on . [facility] [place], [facility] [place], [facility] [place] Disorder associated with type II diabete s melliltus (disorder) Resolved 08/03/2010 Problem 05/07/2020 Data migrated from [employer] on 12/20/14. [facility] [place], [facility] [place] [facility] [place] Hyperlipidemia (disorder) Acti ve 08/03/2010 Problem 05/07/2020 Data migrated from [employer] on . [facility] [place], [facility] [place], [facility] [place] Obesity (disorder) Active 08/03/2010 Problem 05/07/2020 Data migrated from [employer] on . [facility] [place], [facility] [place], [facility] [place] Osteoporosis (disorder) Active 08/03/2010 Problem 05/07/2020 Data migrated from [employer] on . [facility] [place], [facility] [place], [facility] [place] Arthritis (disorder) Resolved Problem 05/07/2020 [facility] [place], [facility] [place], [facility] [place] Varicella (disorder) Resolved Problem 05/07/2020 [facility] [place], [facility] [place], [facility] [place] Chronic obstructive lung disease (disorder) Resolved Problem 05/07/2020 [facility] [place], [facility] [place], [facility] [place] Decreased vitamin D (finding) Active Problem [facility], OP[facility] [place], [facility] [place], [facility] [place] Diabetes mellitus (disorder) R esolved Problem [facility] [place], [facility] [place], [facility] [place] History of urinary tract infection (situation) Active Problem 05/07/2020 [facility] Hypernatremia (disorder) Active Problem 05/07/2020 [facility] Mixed hyperlipidemia (disorder) Active Problem [facility] [place], [facility], [facility] [place] Morbid obesity (disorder) Acti ve Problem [facility] [place], [facility] [place], [facility] [place] Pneumonia (disorder) Resolved Problem 05/07/2020 [facility] [place], [facility] [place], [facility] [place] Peptic ulcer (disorder) Resolv ed Problem [facility] [place], [facility] [place], [facility] [place] Steatosis of liver (disorder) Active Problem Data migrated from [facility] on . [facility] [place], [facility] [place], [facility] [place] Subclinical hypothyroidism (disorder) Active Problem [facility] Diabetes mellitus type 2 in obese (disorder) Active Problem 05/07/2020 [facility] [place], [facility] [place], [facility] [place] Hypertensive disorder, systemic arterial (disorder) Active Problem 05/05/2015 [facility] Arthritis Resolved Problem 01/11/2013 [facility] Diabetes mellitus Active Problem 01/11/2013 [facility] Hypertension Active Problem 01/11/2013 [facility] Pneumonia Resolved Problem 01/11/2013 [facility] Sore throat symptom (finding) Active Problem [facility] FEVER NOS Active [facility] ASTHMA NOS Active [facility] PNEUMONIA, ORGANISM NOS Active [facility] CHR AIRWAY OBSTRUCT NEC Active [facility] BRONCHITIS NOS Active [facility] SEPSIS DUE TO UNSPECIFIED STAPHYLOCOCCUS Active [facility] ANEMIA, UNSPECIFIED Active [facility] Medications Medication Details Route Status Patient Instructions Ordering Provider Order Date Source pantoprazole 40 mg oral enteric coated tablet See Instructions, TAKE 1 TABLET BY MOUTH EVERY DAY, # 90 tab, 0 Refill(s), Pharmacy: [facility] #[id number], 154.94, cm, 12/22/19 10:39:00 CDT, Height, 90.727, kg, 12/22/19 10:39:00 CDT, Weight Active 05/03/2020 [facility] 3 ML insulin detemir 100 UNT/ML Prefille d Syringe [Levemir] See Instructions, ADMINISTER UP TO 35 UN ITS UNDER THE SKIN EVERY DAY, # 15 mL, 11 Refill(s), Pharmacy: [facility] #[id number], 154.94, cm, 12/22/19 10:39:00 CDT, Height, 90.727, kg, 12/22/19 10:39:00 CDT, Weight Active 03/29/2020 [facility] pantoprazole 40 mg oral enteric coated tablet = 1 tab, PO, Daily, # 90 tab, 0 Refill(s), Pharmacy: [facility] #[id number], 154.94, cm, 12/22/19 10:39:00 CDT, Height, 90.727, kg, 12/22/19 10:39:00 CDT, Weight Active 02/09/2020 [facility] apixaban 2.5 MG Oral Tablet [Eliquis] 2.5 mg, PO, Q12H, tab, 0 Refill(s) Active 12/22/2019 [facility] Albuterol 1 MG/ML Inhalant Solution 2.5 mg, INHALATION, Q6H, # 60 ea, 0 Refill(s) Active 12/22/2019 [facility] FREESTYLE LITE BLOOD GLUCOSE STRIPS See Instructions, # 100 strip, USE TO CHECK BLOOD SUGAR DIRECTED THREE TIMES DAILY, Pharmacy: [facility] [id number] Active 10/05/2019 [facility] 3 ML Insulin Lispro 100 UNT/ML Pen Injector [Humalog] See Instructions, # 45 mL, Refill(s) 4, INJECT 15 UNITS SUBCUTANEOUS THREE TIMES DAILY(WITH MEALS), Pharmacy: [facility] #[id number] Active 08/28/2019 [facility] BD Ultra-Fine Mini Insulin Pen [place] 3 1G 5mm=3/16 inch 1 ea, MISC, TID, Use as directed, # 900 ea, 3 Refill(s) Active 08/17/2019 [facility] pantoprazole 40 mg oral enteric coated tablet = 1 tab, PO, Daily, # 90 tab, Refill(s) 1, Pharmacy: [facility] [id number] Active 08/04/2019 [facility] FREESTYLE LITE BLOOD GLUCOSE STRIPS See Instructions, # 100 strip, Refill(s) 5, USE TO CHECK BLOOD SUGAR DIRECTED THREE TIMES DAILY, Pharmacy: [facility] [id number] Active 07/09/2019 [facility] atorvastatin 10 mg oral tablet = 1 tab, PO, Daily, # 90 tab, Refill(s) 3, Pharmacy: [facility] [id number] Active 05/25/2019 [facility] 3 ML Insulin Lispro 100 UNT/ML Pen Injector [Humalog] See Instructions, # 45 mL, INJECT 15 UNITS SUBCUTANEOUS THREE TIMES DAILY(WITH MEALS), Pharmacy: [facility] [id number] Active 05/11/2019 [facility] pantoprazole 40 mg oral enteric coated tablet See Instructions, # 90 tab, TAKE 1 TABLET BY MOUTH DAILY, Pharmacy: [facility] [id number] Active 05/04/2019 [facility] pantoprazole 40 mg oral enteric coated tablet See Instructions, # 90 tab, TAKE 1 TABLET BY MOUTH DAILY, [place] [facility] [id number] [place] 01/30/2019 [facility] telmisartan 80 mg oral tablet 80 mg = 1 tab, PO, Daily, # 30 tab, 3 Refill(s) Active 01/06/2019 [facility] B-D PEN NDL MINI 37TO1LY(10/04)PRPL See Instructions, # 900 unknown unit, DIRECTED THREE TIMES DAILY, Pharmacy: [facility] [id number] Active 10/07/2018 [facility] 3 ML insulin detemir 100 UNT/ML Prefille d Syringe [Levemir] See Instructions, INJECT UP TO 35 UNITS UNDER THE SKIN EVERY DAY, # 15 mL, 5 Refill(s), Pharmacy: [facility] [id number] Active 09/22/2018 [facility] atorvastatin 10 mg oral tablet = 1 tab, PO, Daily, # 90 tab, Refill(s) 1, Pharmacy: [facility] [id number] Active 08/29/2018 [facility] pantoprazole 40 mg oral enteric coated tablet = 1 tab, PO, Daily, # 90 tab, Refill(s) 1, Pharmacy: [facility] [id number] Active 08/06/2018 [facility] tramadol hydrochloride 50 MG Oral Tablet 50 mg = 1 tab, PO, Q6H, PRN Pain, # 40 tab, 0 Refill(s) Active 07/08/2018 [facility] Tylenol PO, 0 Refill(s) Active 07/08/2018 [facility] Zofran 4 mg, PO, PRN, 0 Refill (s) Active 07/08/2018 [facility] Freestyle Lite Blood Glucose Test Strips 1 ea, MISC, TID, Use for blood glucose monitoring., # 100 ea, Insulin dependent, Does not use insulin pump, Last DM eval date 04/09/18, 11 Refill(s), Pharmacy: [facility] [id number] Active 06/13/2018 [facility] atorvastatin 10 mg oral tablet See Instructions, # 90 tab, TAKE 1 TABLET BY MOUTH EVERY DAY, Pharmacy: [facility] [id number] No Longer Active 06/04/2018 [facility] Budesonide See Instructions, d id not know dosage but taking twice daily., 0 Refill(s) Active 04/09/2018 [facility] atorvastatin 10 mg oral tablet See Instructions, TAKE 1 TABLET BY MOUTH EVERY DAY, # 90 tab, 0 Refill(s), Pharmacy: [facility] [id number] No Longer Active 03/07/2018 [facility] pantoprazole 40 mg oral enteric coated tablet See Instructions, # 90 tab, TAKE 1 TABLET BY MOUTH DAILY, Pharmacy: [facility] [id number] Active 12/18/2017 [facility] atorvastatin 10 mg oral tablet See Instructions, # 90 tab, TAKE 1 TABLET BY MOUTH EVERY DAY, Pharmacy: [facility] [id number] Active 12/09/2017 [facility] pantoprazole 40 mg oral enteric coated tablet See Instructions, # 90 tab, TAKE 1 TABLET BY MOUTH DAILY, Pharmacy: [facility] [id number] Active 11/12/2017 [facility] 3 ML Insulin Lispro 100 UNT/ML Pen Injector [Humalog] See Instructions, USE DIRECTED, # 45 mL, 5 Refill(s), Pharmacy: [facility] [id number] No Longer Active 10/28/2017 [facility] 3 ML Insulin Lispro 100 UNT/ML Pen Injector [Humalog] See Instructions, USE DIRECTED, # 45 mL, 5 Refill(s), Pharmacy: [facility] [id number] No Longer Active 10/28/2017 [facility] atorvastatin 10 mg oral tablet See Instructions, # 90 tab, TAKE 1 TABLET BY MOUTH EVERY DAY, Pharmacy: [facility] [id number] No Longer Active 09/09/2017 [facility] amoxicillin 500 mg oral tablet See Instructions, 1 tab PO q 8 hours, 0 Refill(s) Active 08/05/2017 [facility] 24 HR Nifedipine 30 MG Extended Release Tablet [Procardia] 30 mg = 1 tab, PO, Daily, # 30 tab, 0 Refill(s) Active 08/05/2017 [facility] Furosemide 40 MG Oral Tablet 4 0 mg = 1 tab, PO, Daily, # 30 tab, 0 Refill(s) Active 08/05/2017 [facility] BD Ultra-Fine Mini Insulin Pen [place] 3 1G 5mm=3/16 inch 1 ea, MISC, TID, Use as directed, # 900 ea, 3 Refill(s) Active 07/26/2017 [facility] azelastine nasal 0.1% (137 mcg/inh) spray Notes: (azelastine 137 microgram/inh 34 ml nasal SPR) Non-formulary drug. Same As: Astelin) Inactive 04/10/2016 [facility] Docusate Sodium 50 MG / sennosides, MCC 8.6 MG Oral Tablet 1 tab, PO, BID, X 30 day, # 60 tab, 0 Refill(s) Active 04/09/2016 [facility] Ciprofloxacin 500 MG Oral Tablet [Cipro] 500 mg = 1 tab, PO, Q12H, X 12 day, # 24 tab, 0 Refill(s) Active 04/09/2016 [facility] Albuterol 0.83 MG/ML Inhalant Solution Notes: SEE RT DOCUMENTATION (Same as: Proventil) No Longer Active 04/09/2016 [facility] Albuterol 0.83 MG/ML Inhalant Solution Notes: SEE RT DOCUMENTATION (Same as: Proventil) Inactive 04/09/2016 [facility] Miralax Notes: Dissolve in 8 o z of water or juice. (Same as: Miralax) Inactive 04/08/2016 [facility] Docusate Sodium 50 MG / sennosides, MCC 8.6 MG Oral Tablet Notes: (Same as Senokot-S) Equiv. to Anamaria-Colace. No Longer Active 04/08/2016 [facility] insulin detemir Notes: Same as Levemir Do not hold insulin without contacting prescriber WASTE: F/P - Black; E - Municipal Trash Bin "single patient use only" No Longer Active 04/08/2016 [facility] sodium chloride 0.45% 1000 ml INJ 1,000 mL 1,000 mL, Rate: 125 ml/hr, Infuse over: 8 hr, Route: IV, Dosing Weight 99.091 kg, Total Volume: 1,000, Start date: 04/08/16 8:01:00 CDT, Duration: 24 hr, Stop date: 04/09/16 8:06:00 CDT No Longer Active 04/08/2016 [facility] Sodium Chloride 0.154 MEQ/ML Injectable Solution 2,000 mL, 1,000 ml/hr, Infuse Over: 2 hr, Route: IV, 2,000, Drug form: INJ, ONCE, Priority: STAT, Dosing Weight 99.091 kg, Start date: 04/08/16 8:01:00 CDT, Stop date: 04/08/16 8:01:00 CDT Inactive 04/08/2016 [facility] insulin detemir Notes: Same as Levemir Do not hold insulin without contacting prescriber WASTE: F/P - Black; E - Municipal Trash Bin "single patient use only" No Longer Active 04/08/2016 [facility] atorvastatin Notes: (Same As: Lipitor) No Longer Active 04/08/2016 [facility] Singulair Notes: (Same as:Sing ulair) No Longer Active 04/07/2016 [facility] pantoprazole Notes: Tablet lazaro uld not be chewed or crushed. (Same as: Protonix) N o Longer Active 04/07/2016 [facility] heparin Notes: porcine heparin No Longer Active 04/07/2016 [facility] meropenem 50, Extended infusio n, infuse over 3 hours, Start date: 04/07/16 16:00:00 CDT, Duration: 30 day, Stop date: 05/07/16 8:00:00 CDT Inactive 04/07/2016 [facility] Insulin, Aspart, Human Notes: Roll in palms of hands gently; Do not shake vigorously. (Same as: NovoLOG) "single patient use only" WASTE: F/P - Black; E - Municipal Trash Bin Stable for 28 days at room temperature. Expires in days from Date No Longer Active 04/07/2016 [facility] Glucagon 1 mg, Route: IM, Drug form: PDR/INJ, PRN, Dosing Weight 99.091, kg, PRN Blood Glucose Results, Start date: 04/07/16 12:44:00 CDT, Duration: 30 day, Stop date: 05/07/16 12:43:00 CDT No Longer Active 04/07/2016 [facility] Dextrose 50% Syringe 25 gm, 50 mL, Route: IVP, Drug Form: INJ, Dosing Weight 99.091, kg, PRN, PRN Blood Glucose Results, Start date: 04/07/16 12:44:00 CDT, Duration: 30 day, Stop date: 05/07/16 12:43:00 CDT No Longer Active 04/07/2016 [facility] Aspirin 81 MG Chewable Tablet Notes: Take with food. No Longer Active 04/07/2016 [facility] meropenem Notes: Same as Torsten malave MEDICATION WASTE Product Size: 500 mg Product Wasted: ___ mg No Longer Active 04/07/2016 [facility] Ventolin HFA 90 mcg/inh inhalation aerosol with adapte r Notes: Albuterol 90 microgram/inh 8gm HFA WASTE: Aerosol - Return to Pharmacy Same as: Reece, Proventil N o Longer Active 04/07/2016 [facility] Acetaminophen Notes: Do not ex ceed 4 gm/day. (Same as: Tylenol) No Longer Active 04/07/2016 [facility] Docusate Notes: (Same as: Cola ce) (Do Not Crush) No Longer Active 04/07/2016 [facility] Ondansetron Notes: (Same as: Olena marcos) MEDICATION WASTE Product Size: 4 mg Product Wasted: ___ mg No Longer Active 04/07/2016 [facility] Acetaminophen 300 MG / Codeine Phosphate 30 MG Oral Tablet [Tylenol with Codeine #3] Notes: Do not exceed 4gm/day of acetamin ophen. (Same as: Tylenol with Codeine # 3) Inactive 04/07/2016 [facility] Sodium Chloride 0.154 MEQ/ML Injectable Solution 1,000 mL, 1,000 ml/hr, Infuse Over: 1 hr, Route: IV, ONCE, Priority: STAT, Dosing Weight 100 kg, Start date: 04/07/16 6:34:00 CDT, Duration: 1 doses or times, Stop date: 04/07/16 6:34:00 CDT Inactive 04/07/2016 [facility] Saline Flush 0.9% Notes: prese rvative free. Inactive 04/07/2016 [facility] Ceftriaxone 1 gm, Route: IVPB, Drug form: PDR/INJ, ONCE, Dosing Weight 100, kg, Priority: STAT, Start date: 04/07/16 6:32:00 CDT, Stop date: 04/07/16 6:32:00 CDT Inactive 04/07/2016 [facility] Hydrochlorothiazide 25 MG Oral Tablet 25 mg = 1 tab, PO, Daily, # 30 tab, 0 Refill(s) O n Hold 04/07/2016 [facility] Zofran 4 mg, Route: IVP, Drug form: INJ, ONCE, Dosing Weight 99.091, kg, Priority: STAT, Start date: 04/06/16 18:39:00 CDT, Stop date: 04/06/16 18:39:00 CDT Inactive 04/06/2016 [facility] Sodium Chloride 0.154 MEQ/ML Injectable Solution 500 mL, 1,000 ml/hr, Infuse Over: 0.5 hr, Route: IV, 500, Drug form: INJ, ONCE, Priority: STAT, Dosing Weight 99.091 kg, Start date: 04/06/16 15:11:00 CDT, Duration: 1 doses or times, Stop date: 04/06/16 15:11:00 CDT Inactive 04/06/2016 [facility] d50 syringe 12.5 gm, 25 mL, Ro emilie: IVP, Drug Form: INJ, Dosing Weight 99.091, kg, ONCE, STAT, Start date: 04/06/16 15:10:00 CDT, Stop date: 04/06/16 15:10:00 CDT, 25 ml = 12.5 gm Inactive 04/06/2016 [facility] Insulin regular Notes: (Same a s: Humulin R and NovoLIN R) WASTE: F/P - Black; E - Municipal Trash Bin (Do not shake) Inactive 04/06/2016 [facility] Kayexalate Notes: (sodium poly styrene sulfonate 15 gm/60 ml GOLDEN) Shake well before use. (Same as: Kayexalate, SPS) Inactive 04/06/2016 [facility] Saline Flush 0.9% Notes: (Same as: BD Posiflush) Inactive 04/06/2016 [facility] Cephalexin 500 MG Oral Capsule [Keflex] 500 mg = 1 cap, PO, QID, X 10 day, # 40 cap, 0 Refill(s), Pharmacy: [facility] [id number] Active 10/01/2015 [facility] Albuterol 0.83 MG/ML Inhalant Solution Notes: SEE RT DOCUMENTATION (Same as: Proventil) Inactive 10/01/2015 [facility] Saline Flush 0.9% Notes: (Same as: BD Posiflush) Inactive 10/01/2015 [facility] Benicar 40 mg, 2 tab, Route: P O, Drug form: TAB, ONCE, Dosing Weight 97.273, kg, Start date: 09/22/15 12:56:00, Stop date: 09/22/15 12:56:00 Inactive 09/22/2015 [facility] Ciprofloxacin 250 MG Oral Tablet [Cipro] 250 mg = 1 tab, PO, Q12H, X 7 day, # 14 tab, 0 Refill(s), [facility] [facility] [id number] Active 09/22/2015 [facility] Ondansetron 4 MG Oral Tablet [Zofran] 4 mg = 1 tab, PO, BID, X 5 day, # 10 tab, 0 Refill(s), Pharmacy: [facility] [id number] Active 09/22/2015 [facility] Ciprofloxacin 500 mg, Route: P O, ONCE, Dosing Weight 97.273, kg, Priority: STAT, Start date: 09/22/15 12:50:00, Stop date: 09/22/15 12:50:00 Inactive 09/22/2015 [facility] Sodium Chloride 0.154 MEQ/ML Injectable Solution 1,000 mL, 1,000 ml/hr, Infuse Over: 1 Hour, Route: IV, ONCE, Priority: STAT, Dosing Weight 97.273 kg, Start date: 09/22/15 8:51:00, Duration: 1 doses or times, Stop date: 09/22/15 8:51:00 Inactive 09/22/2015 [facility] Morphine 4 mg, Route: IVP, ONC E, Dosing Weight 97.273, kg, Priority: STAT, Start date: 09/22/15 8:47:00, Stop date: 09/22/15 8:47:00 Inactive 09/22/2015 [facility] Ondansetron 4 mg, Route: IVP, ONCE, Dosing Weight 97.273, kg, Priority: STAT, Start date: 09/22/15 8:47:00, Stop date: 09/22/15 8:47:00 Inactive 09/22/2015 [facility] Sodium Chloride 0.154 MEQ/ML Injectable Solution 1,000 mL, Infuse Over: 1 hr, Route: IV, ONCE, Priority: STAT, Dosing Weight 97.273 kg, Start date: 09/22/15 8:47:00, Duration: 1 doses or times, Stop date: 09/22/15 8:47:00 Inactive 09/22/2015 [facility] Saline Flush 0.9% Notes: (Same as: BD Posiflush) Inactive 09/22/2015 [facility] Ventolin HFA 90 mcg/inh inhalation aerosol with adapte r 2 puff, INHALER, Q4H, PRN wheezing, coughing, or shortness of breath, # 8 gm, 1 Refill(s) Active 03/01/2015 [facility] {21 (Methylprednisolone 4 MG Oral Tablet [Medrol]) } Pack [Medrol Dosepak] Special Instructions: Take by mouth as d irected on label. Active 03/01/2015 [facility] atorvastatin Notes: (Same As: Lipitor) No Longer Active 02/28/2015 [facility] Aspirin 81 MG Chewable Tablet Notes: Take with food. No Longer Active 02/28/2015 [facility] Amlodipine Notes: (Same as: No rvasc) No Longer Active 02/28/2015 [facility] Benicar 40 mg, 2 tab, Route: P O, Drug form: TAB, Daily, Dosing Weight 94.091, kg, Start date: 02/28/15 9:00:00, Duration: 30 day, Stop date: 03/29/15 9:00:00 No Longer Active 02/28/2015 [facility] Insulin, Aspart, Human Notes: Roll in palms of hands gently; Do not shake vigorously. (Same as: NovoLOG) "single patient use only" Stable for 28 days at room temperature. Expires in days from Date Inactive 02/28/2015 [facility] Levemir FlexPen Notes: Same as Levemir Do not hold insulin without contacting prescriber "single patient use only" No Longer Active 02/28/2015 [facility] Protonix Notes: Same as: Jacky nix Mix in 5 mL apple juice or applesauce for oral & 10mL apple juice for NG tube No Longer Active 02/27/2015 [facility] Solu-Medrol Notes: (Same as:So kevin-MEDROL, A-Methapred) No Longer Active 02/27/2015 [facility] pantoprazole 40 mg, PO, Daily, # 30 tab, 0 Refill(s) Active 02/27/2015 [facility] Ursodeoxycholate Notes: (Same As: Actigall) No Longer Active 02/27/2015 [facility] Insulin, Aspart, Human Notes: Roll in palms of hands gently; Do not shake vigorously. (Same as: NovoLOG) "single patient use only" Stable for 28 days at room temperature. Expires in days from Date No Longer Active 02/27/2015 [facility] Dextrose 50% Syringe 25 gm, 50 mL, Route: IVP, Drug Form: INJ, Dosing Weight 94.091, kg, PRN, PRN Blood Glucose Results, Start date: 02/27/15 12:50:00, Duration: 30 day, Stop date: 03/29/15 12:49:00 No Longer Active 02/27/2015 [facility] Glucagon 1 mg, Route: IM, Drug form: PDR/INJ, PRN, Dosing Weight 94.091, kg, PRN Blood Glucose Results, Start date: 02/27/15 12:50:00, Duration: 30 day, Stop date: 03/29/15 12:49:00 No Longer Active 02/27/2015 [facility] Ursodeoxycholate 300 mg, PO, T ID, 0 Refill(s) Active 02/27/2015 [facility] Nitroglycerin 0.4 MG Sublingual Tablet Notes: (Same as:Nitroquick, Nitrostat) "Do Not Crush" Sublingual tablet No Longer Active 02/27/2015 [facility] Atropine 0.5 mg, 5 mL, Route: IV, Drug form: INJ, PRN, Dosing Weight 94.091, kg, PRN Bradycardia, Start date: 02/27/15 8:56:00, Duration: 30 day, Stop date: 03/29/15 8:55:00 No Longer Active 02/27/2015 [facility] Albuterol 0.83 MG/ML Inhalant Solution Notes: SEE RT DOCUMENTATION (Same as: Proventil) No Longer Active 02/27/2015 [facility] Albuterol 0.833 MG/ML / Ipratropium Brom grady 0.167 MG/ML Inhalant Solution [DuoNeb] Notes: (Same as: Duoneb) No Longer Active 02/27/2015 [facility] Ondansetron Notes: (Same as: Olena marcos) MEDICATION WASTE Product Size: 4 mg Product Wasted: ___ mg No Longer Active 02/27/2015 [facility] Docusate Notes: (Same as: Cola ce) (Do Not Crush) No Longer Active 02/27/2015 [facility] Acetaminophen Notes: Do not ex ceed 4 gm/day. (Same as: Tylenol) No Longer Active 02/27/2015 [facility] Morphine Notes: (Same as:MORPh ine Sulfate) No Longer Active 02/27/2015 [facility] Benicar 40 mg, 2 tab, Route: P O, Drug form: TAB, ONCE, Dosing Weight 94.091, kg, Priority: NOW, Start date: 02/27/15 5:33:00, Stop date: 02/27/15 5:33:00 Inactiv e 02/27/2015 [facility] methylPREDNISolone SODium SUCCinate 125 mg, Route: IVP, ONCE, Dosing Weight 94.091, kg, Priority: STAT, Start date: 02/27/15 3:34:00, Stop date: 02/27/15 3:34:00 Inactive 02/27/2015 [facility] Albuterol 0.833 MG/ML / Ipratropium Brom grady 0.167 MG/ML Inhalant Solution 3 mL, Route: NEB, Drug Form: SOLN, Dosin g Weight 94.091, kg, ONCE, STAT, Start date: 02/27/15 1:50:00, Stop date: 02/27/15 1:50:00 Inactive 02/27/2015 [facility] Saline Flush 0.9% Notes: (Same as: BD Posiflush) Inactive 02/27/2015 [facility] doxycycline monohydrate 100 mg oral tablet 100 mg = 1 tab, PO, Q12H, # 20 tab, 0 Refill(s) Active 10/10/2014 [facility] predniSONE 10 mg oral tablet S pecial Instructions: 12 day regimen: Days 1-4 - 20 mg (2 tabs) daily Days 5-8 - 10 mg (1 tab) daily Days 9-12 - 5 mg (1/2 tab) daily Active 10/10/2014 [facility] Albuterol 0.833 MG/ML / Ipratropium Brom grady 0.167 MG/ML Inhalant Solution [DuoNeb] Notes: (Same as: Shaunna) Inactive 10/10/2014 [facility] Albuterol 0.833 MG/ML / Ipratropium Brom grady 0.167 MG/ML Inhalant Solution [DuoNeb] Notes: (Same as: Shaunna) Inactive 10/10/2014 [facility] Saline Flush 0.9% Notes: Same as: BD Posiflush Sterile Inactive 10/10/2014 [facility] Sulfamethoxazole 800 MG / Trimethoprim 1 60 MG Oral Tablet [Bactrim] 1 tab, PO, BID, # 14 tab, 0 Refill(s) Active 08/23/2014 [facility] benzonatate 100 MG Oral Capsule [Tessalon Perles] 100 mg = 1 cap, PO, TID, # 30 cap, 0 Refill(s) Active 05/16/2014 [facility] Albuterol 0.833 MG/ML / Ipratropium Brom grady 0.167 MG/ML Inhalant Solution 3 mL, Route: NEB, Drug Form: SOLN, Dosin g Weight 92.727, kg, ONCE, STAT, Start date: 05/16/14 12:48:00, Stop date: 05/16/14 12:48:00 Inactive 05/16/2014 [facility] Saline Flush 0.9% 10 mL, Route : IVP, Drug Form: INJ, Dosing Weight 92.727, kg, PRN, PRN Line Flush, Start date: 05/16/14 12:48:00, Duration: 30 day, Stop date: 06/15/14 11:47:00 Inactive 05/16/2014 [facility] Levemir FlexPen 25 unit, 0.25 mL, Route: SUB-Q, Drug form: INJ, Bedtime, Start date: 01/09/13 21:00:00, Duration: 30 day, Stop date: 02/07/13 21:00:00 SUB-Q No Longer Active Rickie 01/10/2013 [facility] Protonix 40 mg oral enteric coated tablet 40 mg, 1 tab, PO, Daily, 30 tab, Substitution Allowed, ECTAB PO Active [place] 01/09/2013 [facility] amLODipine 10 mg oral tablet 1 0 mg, 1 tab, PO, Daily, 30 tab, Substitution Allowed, TAB PO Active [facility] 01/09/2013 [facility] predniSONE 10 mg oral tablet 1 0 mg, 1 tab, PO, Daily, 14 tab, Substitution Allowed, TAB PO Active [facility] 01/09/2013 [facility] Levemir FlexPen 10 unit, 0.1 m L, Route: SUB-Q, Drug form: INJ, QAM, Start date: 01/09/13 9:00:00, Duration: 30 day, Stop date: 02/07/13 9:00:00 SUB-Q No Longer Active [facility] 01/09/2013 [facility] NS 1,000 mL 1,000 mL, Rate: 75 ml/hr, Infuse over: 13.3 hr, Route: IV, Dosing Weight 93.636 kg, Total Volume: 1,000, Start date: 01/09/13 8:07:00, Duration: 30 day, Stop date: 02/08/13 8:06:00 IV No Longer Active [facility]ie 01/09/2013 [facility] Levemir FlexPen 15 unit, 0.15 mL, Route: SUB-Q, Drug form: INJ, Daily, Dosing Weight 93.636, kg, Start date: 01/08/13 21:00:00, Duration: 30 day, Stop date: 02/06/13 21:00:00 SUB-Q No Longer Active [facility]ie 01/09/2013 [facility] NovoLog FlexPen 18 unit, 0.18 mL, Route: SUB-Q, Drug form: SOLN, Sliding Scale, PRN Blood Glucose Results, Start date: 01/08/13 18:56:00, Duration: 30 day, Stop date: 02/07/13 18:55:00 SUB-Q No Longer Active [facility] 01/08/2013 [facility] NovoLog FlexPen 12 unit, 0.12 mL, Route: SUB-Q, Drug form: SOLN, Sliding Scale, PRN Blood Glucose Results, Start date: 01/08/13 18:55:00, Duration: 30 day, Stop date: 02/07/13 18:54:00 SUB-Q No Longer Active [facility] 01/08/2013 [facility] NovoLog FlexPen 8 unit, Route: SUB-Q, Drug form: SOLN, Sliding Scale, PRN Blood Glucose Results, Start date: 01/08/13 18:53:00, Duration: 30 day, Stop date: 02/07/13 18:52:00 SUB-Q No Longer Active [facility] 01/08/2013 [facility] pantoprazole 40 mg, 1 tab, Rou te: PO, Drug form: ECTAB, Daily, Dosing Weight 93.636, kg, Priority: Routine, Start date: 01/08/13 9:00:00, Stop date: 02/06/13 9:00:00 PO No Longer Active [facility] 01/08/2013 [facility] SoluMedrol 40 mg, 1 mL, Route: IVP, Drug form: INJ, Q12H, Dosing Weight 93.636, kg, Start date: 01/08/13 9:00:00, Duration: 30 day, Stop date: 02/06/13 21:00:00 IVP No Longer Active [facility] 01/08/2013 [facility] Diovan 320 mg, 2 tab, Route: P O, Drug form: TAB, Daily, Dosing Weight 93.636, kg, Start date: 01/08/13 9:00:00, Duration: 30 day, Stop date: 02/06/13 9:00:00 PO No Longer Active [facility] 01/08/2013 [facility] pneumococcal 23-valent vaccine 0.5 ml, Route: IM, Drug Form: INJ, Daily, Start date: 01/08/13 9:00:00, Duration: 1 doses or times, Stop date: 01/08/13 9:00:00 IM No Longer Active [facility] 01/08/2013 [facility] aspirin 81 mg tablet, chewable 81 mg, 1 tab, Route: PO, Drug form: CHEWTAB, Daily, Dosing Weight 93.636, kg, Start date: 01/08/13 9:00:00, Duration: 30 day, Stop date: 02/06/13 9:00:00 [facility] atorvastatin 10 mg, 1 tab, Rou te: PO, Drug form: TAB, QAM, Dosing Weight 93.636, kg, Start date: 01/08/13 9:00:00, Duration: 30 day, Stop date: 02/06/13 9:00:00 [facility] amLODipine 5 mg, 1 tab, Route: PO, Drug form: TAB, BID, Dosing Weight 93.636, kg, Start date: 01/08/13 9:00:00, Duration: 30 day, Stop date: 02/06/13 21:00:00 PO No Longer Active [facility] 01/08/2013 [facility] NovoLog FlexPen 12 unit, 0.12 mL, Route: SUB-Q, Drug form: SOLN, Sliding Scale, PRN Blood Glucose Results, Start date: 01/08/13 8:59:00, Duration: 30 day, Stop date: 02/07/13 8:58:00 SUB-Q No Longer Active [facility] 01/08/2013 [facility] DuoNeb inhalation solution 3 m L, Route: INHALATION, Drug Form: SOLN, Dosing Weight 93.636, kg, RQ6H, Start date: 01/08/13 8:00:00, Duration: 30 day, Stop date: 02/07/13 2:00:00 INHALATION No Longer Active [facility] 01/08/2013 [facility] codeine-guaifenesin 10 mg-200 mg/5 mL oral liquid 10 mL, Route: PO, Drug Form: LIQ, Dosing Weight 93.636, kg, Q4H, PRN as needed for cough, Start date: 01/08/13 4:50:00, Duration: 30 day, Stop date: 02/07/13 4:49:00 PO No Longer Active [facility] 01/08/2013 [facility] Zofran 4 mg, 2 mL, Route: IV, Drug form: INJ, Q4H, Dosing Weight 93.636, kg, PRN as needed for nausea/vomiting, Start date: 01/08/13 4:50:00, Duration: 30 day, Stop date: 02/07/13 4:49:00 IV No Longer Active Yasmin 01/08/2013 [facility] acetaminophen 650 mg, 2 tab, R oute: PO, Drug form: TAB, Q6H, Dosing Weight 93.636, kg, PRN Pain, Start date: 01/08/13 4:50:00, Duration: 30 day, Stop date: 02/07/13 4:49:00 PO No Longer Active Yasmin 01/08/2013 [facility] azithromycin + Sodium Chloride 0.9% IV 250 mL 500 mg, Route: IVPB, [id number], Dosing Weight 90.455, kg, Priority: Routine, Start date: 01/08/13 3:00:00, Duration: 30 day, Stop date: 02/06/13 3:00:00 IVPB No Longer Active [facility] 01/08/2013 [facility] ceftriaxone + Sodium Chloride 0.9% IV 100 mL 1 gm, Route: IVPB, [id number], Dosing Weight 90.455, kg, Priority: Routine, Start date: 01/08/13 3:00:00, Duration: 30 day, Stop date: 02/06/13 3:00:00 IVPB No Longer Active [facility] 01/08/2013 [facility] Dextrose 50% Syringe 25 gm, 50 mL, Route: IVP, Drug Form: INJ, Dosing Weight 90.455, kg, PRN, PRN Blood Glucose Results, Start date: 01/08/13 2:41:00, Duration: 30 day, Stop date: 02/07/13 2:40:00 IVP No Longer Active Rickie 01/08/2013 [facility] insulin aspart 4 unit, 0.04 mL , Route: SUB-Q, Drug form: SOLN, Bedtime, Dosing Weight 90.455, kg, PRN Blood Glucose Results, Start date: 01/08/13 2:41:00, Duration: 30 day, Stop date: 02/07/13 2:40:00 SUB-Q No Longer Active [facility]ie 01/08/2013 [facility] glucagon 1 mg, Route: IM, Drug form: PDR/INJ, PRN, Dosing Weight 90.455, kg, PRN Blood Glucose Results, Start date: 01/08/13 2:41:00, Duration: 30 day, Stop date: 02/07/13 2:40:00 IM No Longer Active [facility]ie 01/08/2013 [facility] albuterol-ipratropium 2.5-0.5 mg inhalation solution 3 mL, Route: NEB, Drug Form: SOLN, Dosing Weight 90.455, kg, PRN, PRN Respiratory Protocol, Start date: 01/08/13 2:39:00, Duration: 30 day, Stop date: 02/07/13 2:38:00 [facility] acetaminophen 650 mg, 20.3 mL, Route: PO, Drug form: LIQ, Q4H, Dosing Weight 90.455, kg, PRN Pain Score 1-3, For fever > 100.4. Not to exceed 4 grams in 24 hours, Start date: 01/08/13 2:39:00, Duration: 30 day, Stop date: 02/07/13 2:38:00 PO No Longer Active [facility]ie 01/08/2013 [facility] DuoNeb inhalation solution 3 m l, Route: INHALATION, Drug Form: SOLN, Dosing Weight 90.455, kg, PRN, PRN Respiratory Protocol, Start date: 01/08/13 1:38:00, Duration: 30 day, Stop date: 02/07/13 1:37:00 INHALATION No Longer Active [place] 2012 [facility] azithromycin + Sodium Chloride 0.9% IV 250 mL 500 mg, Route: IVPB, ONCE, Dosing Weight 90.455, kg, Priority: STAT, Start date: 01/08/13 0:48:00, Stop date: 01/08/13 0:48:00 IVPB No Longer Active [place] 01/08/2013 [facility] ceftriaxone + Sodium Chloride 0.9% IV 100 mL 1 gm, Route: IVPB, ONCE, Dosing Weight 90.455, kg, Priority: STAT, Start date: 01/08/13 0:48:00, Stop date: 01/08/13 0:48:00 IVPB No Longer Active [place] 01/08/2013 [facility] amLODipine 5 mg, 1 tab, Route: PO, Drug form: TAB, ONCE, Dosing Weight 90.455, kg, Start date: 01/08/13 0:23:00, Stop date: 01/08/13 0:23:00 PO No Longer Active [place] 01/08/2013 [facility] metoprolol tartrate 50 mg, 1 t ab, Route: PO, Drug form: TAB, ONCE, Dosing Weight 90.455, kg, Priority: STAT, Start date: 01/08/13 0:23:00, Stop date: 01/08/13 0:23:00 PO No Longer Active [place] 01/08/2013 [facility] Pepcid 40 mg, 1 tab, Route: PO , Drug form: TAB, ONCE, Start date: 01/07/13 20:56:00, Stop date: 01/07/13 20:56:00 PO No Longer Active [place] 01/08/2013 [facility] Zantac 300 300 mg, Route: PO, ONCE, Dosing Weight 90.455, kg, Start date: 01/07/13 20:18:00, Stop date: 01/07/13 20:18:00 PO No Longer Active [place] 2012 [facility] albuterol-ipratropium 2.5-0.5 mg inhalation solution 3 mL, Route: NEB, Dosing Weight 90.455, kg, ONCE, STAT, Start date: 01/07/13 20:17:00, Stop date: 01/07/13 20:17:00 NEB No Longer Active [place] 01/08/2013 [facility] methylPREDNISolone SODium SUCCinate 20 mg, 0.5 mL, Route: IVP, Drug form: INJ, Daily, Dosing Weight 92.727, kg, Start date: 09/04/12 9:00:00, Duration: 30 day, Stop date: 10/03/12 9:00:00 [place]P [place] [facility] [place] [facility] NovoLog 10 unit, 0.1 mL, Route : SUB-Q, Drug form: SOLN, ONCE, Dosing Weight 92.5, kg, Start date: 09/03/12 13:30:00, Stop date: 09/03/12 13:30:00 SUB-Q No Longer Active [facility] [place]/03[place]2012 [facility] Vantin 200 mg oral tablet 200 mg, 1 tab, PO, Q12H, 14 tab, Substitution Allowed, TAB PO Active [facility] [place] 09/03/2012 [facility] Medrol Dosepak 4 mg Tablet As directed on package instructions, PO, Daily, Take with or without food, 1 Pack, Substitution AllowedTake with or without food PO Active [facility] [place]/03[place]2012 [facility] albuterol 90 mcg/inh inhalation aerosol 1 puff, INHALATION, QID, PRN, 1 ea, wheezing, Substitution Allowed, Maintenance INHALATION [place] [facility] Tussionex [employer] oral suspension, extended releas e 5 ml, PO, Q12H, PRN, 100 mL, for cough, Substitution Allowed, Maintenance, ER Suspension PO Active [facility] [place] [facility] atorvastatin 10 mg, 1 tab, Rou te: PO, Drug form: TAB, QAM, Dosing Weight 92.5, kg, Start date: 09/03/12 9:00:00, Duration: 30 day, Stop date: 10/02/12 9:00:00 PO No Longer Active [facility] [place]2012 [facility] aspirin 81 mg tablet, chewable 81 mg, 1 tab, Route: PO, Drug form: CHEWTAB, Daily, Dosing Weight 92.5, kg, Start date: 09/03/12 9:00:00, Duration: 30 day, Stop date: 10/02/12 9:00:00 PO No Longer Active [facility] [place]03[place]2012 [facility] amLODipine 5 mg, 1 tab, Route: PO, Drug form: TAB, BID, Dosing Weight 92.5, kg, Start date: 09/03/12 9:00:00, Duration: 30 day, Stop date: 10/02/12 17:00:00 PO No Longer Active [facility] [place]2012 [facility] Diovan 320 mg, 2 tab, Route: P O, Drug form: TAB, Daily, Dosing Weight 92.5, kg, Start date: 09/03/12 9:00:00, Duration: 30 day, Stop date: 10/02/12 9:00:00 PO No Longer Active [facility] [place]2012 [facility] metoprolol extended release 10 0 mg, 1 tab, Route: PO, Drug form: ERTAB, QAM, Start date: 09/03/12 9:00:00, Duration: 30 day, Stop date: 10/02/12 9:00:00 PO No Longer Active [facility] [place]2012 [facility] NovoLog PenFill Route: SUB-Q, Drug form: SOLN, TID- Meals, Dosing Weight 92.5, kg, Start date: 09/03/12 8:00:00, Duration: 30 day, Stop date: 10/02/12 17:00:00 SUB-Q No Longer Active [facility] [place]2012 [facility] NovoLog 10 unit, 0.1 mL, Route : SUB-Q, Drug form: SOLN, ONCE, Dosing Weight 92.5, kg, Priority: NOW, Start date: 09/02/12 22:19:00, Stop date: 09/02/12 22:19:00 SUB-Q No Longer Active [facility] [place]2012 [facility] Toprol-XL 50 mg oral tablet, extended release 50 mg, 1 tab, Route: PO, Drug form: ERTAB, QPM, Start date: 09/02/12 21:00:00, Duration: 30 day, Stop date: 10/01/12 21:00:00 PO No Longer Active [facility] [place]2012 [facility] Levemir FlexPen 15 unit, 0.15 mL, Route: SUB-Q, Drug form: INJ, Bedtime, Dosing Weight 92.5, kg, Start date: 09/02/12 21:00:00, Duration: 30 day, Stop date: 10/01/12 21:00:00 SUB-Q No Longer Active [facility] [place]2012 [facility] insulin detemir 25 unit, 0.25 mL, Route: SUB-Q, Drug form: INJ, Bedtime, Dosing Weight 92.5, kg, Start date: 09/02/12 21:00:00, Duration: 30 day, Stop date: 10/01/12 21:00:00 SUB-Q No Longer Active [facility] [place]/03/2012 [facility] methylPREDNISolone SODium SUCCinate 40 mg, 1 mL, Route: IVP, Drug form: INJ, Q12H, Dosing Weight 92.727, kg, Start date: 09/02/12 21:00:00, Duration: 30 day, Stop date: 10/02/12 9:00:00 IVP No Longer Active [facility] [place]2012 [facility] enoxaparin 40 mg, 0.4 mL, Rout e: SUB-Q, Drug form: INJ, [id number], Dosing Weight 92.5, kg, Start date: 09/02/12 18:00:00, Duration: 30 day, Stop date: 10/01/12 18:00:00 SUB-Q No Longer Active [place] 09/03/2012 [facility] Tylenol 650 mg, 2 tab, Route: PO, Drug form: TAB, Q6H, Dosing Weight 92.5, kg, PRN Pain Score 1-3, Start date: 09/02/12 17:46:00, Duration: 30 day, Stop date: 10/02/12 17:45:00 PO No Longer Active [facility] 09/02/2012 [facility] Capron 5/325 oral tablet 1 tab, Route: PO, Drug Form: TAB, Dosing Weight 92.5, kg, Q6H, PRN Pain Score 1-5, Start date: 09/02/12 17:46:00, Duration: 30 day, Stop date: 10/02/12 17:45:00 PO No Longer Active [facility] 09/02/2012 [facility] morphine Sulfate 2 mg, 1 mL, R oute: IVP, Drug form: INJ, Q4H, Dosing Weight 92.5, kg, PRN Pain Score 6-10, Start date: 09/02/12 17:45:00, Duration: 30 day, Stop date: 10/02/12 17:44:00 IVP No Longer Active [facility] 09/02/2012 [facility] dextromethorphan-guaifenesin 10 mg-100 m g/5 mL oral liquid 10 ml, Route: PO, Drug Form: SYRP, Dosin g Weight 92.5, kg, Q4H, PRN Cough, Start date: 09/02/12 17:44:00, Duration: 30 day, Stop date: 10/02/12 17:43:00 PO No Longer Active [facility] 013 [facility] Tessalon Perles 100 mg, 1 cap, Route: PO, Drug form: CAP, TID, Dosing Weight 92.5, kg, PRN Cough, Start date: 09/02/12 17:44:00, Duration: 30 day, Stop date: 10/02/12 17:43:00 PO No Longer Active [facility] 09/02/2012 [facility] Zofran 4 mg, 2 mL, Route: IV, Drug form: INJ, Q6H, Dosing Weight 92.5, kg, PRN Nausea, Start date: 09/02/12 17:44:00, Duration: 30 day, Stop date: 10/02/12 17:43:00 IV No Longer Active [facility] [place]2012 [facility] insulin aspart 6 unit, 0.06 mL , Route: SUB-Q, Drug form: SOLN, TID-Before Meals, Dosing Weight 92.5, kg, PRN Blood Glucose Results, Start date: 09/02/12 17:44:00, Duration: 30 day, Stop date: 10/02/12 17:43:00 SUB-Q No Longer Active [facility] [place] [address] [place] [address] Dextrose 50% Syringe 12.5 gm, 25 mL, Route: IVP, Drug Form: INJ, Dosing Weight 92.5, kg, PRN, PRN Blood Glucose Results, Start date: 09/02/12 17:44:00, Duration: 30 day, Stop date: 10/02/12 18:43:00 IVP No Longer Active [facility] [place]/02/2012 [facility] glucagon 1 mg, Route: IM, Drug form: PDR/INJ, PRN, Dosing Weight 92.5, kg, PRN Blood Glucose Results, Start date: 09/02/12 17:44:00, Duration: 30 day, Stop date: 10/02/12 18:43:00 IM No Longer Active [facility] [place]/02/2012 [facility] nitroglycerin 0.4 mg sublingual tablet 0.4 mg, 1 tab, Route: SL, Drug form: TAB, Q5Min, PRN Chest Pain, Start date: 09/02/12 17:01:00, Duration: 30 day, Stop date: 10/02/12 18:00:00 SL No Longer Active [facility] [place]/02/2012 [facility] atropine 0.5 mg, 5 mL, Route: IVP, Drug form: INJ, PRN, PRN Bradycardia, Start date: 09/02/12 17:01:00, Duration: 30 day, Stop date: 10/02/12 18:00:00 IVP No Longer Active [facility] [place]2012 [facility] Maxipime + Sodium Chloride 0.9% IV 100 mL 1 gm, Route: IVPB, [id number], Dosing Weight 92.727, kg, Priority: STAT, Start date: 09/02/12 16:52:00, Duration: 30 day, Stop date: 10/01/12 16:52:00 IVPB No Longer Active [facility] [place] 09/02/2012 [facility] Cipro 400 mg, 200 mL, Route: I VPB, Drug form: INJ, [id number], Dosing Weight 92.727, kg, Priority: STAT, Start date: 09/02/12 16:52:00, Duration: 30 day, Stop date: 10/02/12 4:52:00 IVPB No Longer Active [facility] [place]/02/2012 [facility] Saline Flush 0.9% 5 ml, Route: IVP, Drug Form: INJ, Dosing Weight 92.727, kg, PRN, PRN Line Flush, Start date: 09/02/12 16:52:00, Duration: 30 day, Stop date: 10/02/12 17:51:00 IVP No Longer Active [facility] [place]/02/2012 [facility] albuterol 0.083% inhalation solution 2.49 mg, Route: NEB, PRN, Dosing Weight 92.727, kg, PRN Respiratory Protocol, Start date: 09/02/12 16:52:00, Duration: 30 day, Stop date: 10/02/12 17:51:00 NEB No Longer Active [facility] [place] 09/02/2012 [facility] albuterol-ipratropium 2.5-0.5 mg inhalation solution 3 mL, Route: NEB, Drug Form: SOLN, Dosing Weight 92.727, kg, PRN, PRN Respiratory Protocol, Start date: 09/02/12 16:52:00, Duration: 30 day, Stop date: 10/02/12 17:51:00 NEB No Longer Active [facility] [place]/02/2012 [facility] ipratropium 0.5 mg, Route: NEB , PRN, Dosing Weight 92.727, kg, PRN Respiratory Protocol, Start date: 09/02/12 16:52:00, Duration: 30 day, Stop date: 10/02/12 17:51:00 NEB No Longer Active [facility] [place] 09/02/2012 [facility] NovoLog PenFill 100 units/mL subcutaneous solution sliding scale, SUB-Q, TID-Meals, 5 units for BS 80-120, 6 units for BS 121-150, 7.5 units for 150-200, 9 units for BS 201-250, 10 units for BS 250-300, 12.5 units for BS > 300, 3 ml, Substitution Allowed, SOLN 300 SUB-Q Active [facility] [place]/02/2012 [facility] Dextrose 50% Syringe 12.5 gm, 25 mL, Route: IVP, Drug Form: INJ, Dosing Weight 92.727, kg, PRN, PRN Blood Glucose Results, Start date: 09/02/12 16:51:00, Duration: 30 day, Stop date: 10/02/12 17:50:00 IVP No Longer Active [facility] [place] 09/02/2012 [facility] glucagon 1 mg, Route: IM, Drug form: PDR/INJ, PRN, Dosing Weight 92.727, kg, PRN Blood Glucose Results, Start date: 09/02/12 16:51:00, Duration: 30 day, Stop date: 10/02/12 17:50:00 IM No Longer Active [facility] [place] 09/02/2012 [facility] insulin aspart 2 unit, 0.02 mL , Route: SUB-Q, Drug form: SOLN, TID-Before Meals, Dosing Weight 92.727, kg, PRN Blood Glucose Results, Start date: 09/02/12 16:51:00, Duration: 30 day, Stop date: 10/02/12 16:50:00 SUB-Q No Longer Active [facility] [place] [facility] Levemir FlexPen 100 units/mL subcutaneous solution 25 unit, SUB-Q, Bedtime, if BS > 200, 3 ml, Substitution Allowed, SOLN 200 SUB-Q Active [facility] [place]/02/2012 [facility] Toprol-XL 50 mg oral tablet, extended release 50 mg, 1 tab, PO, QPM, 30 tab, Substitution Allowed, ERTAB PO Active [facility] [place]/02/2012 [facility] Cipro 400 mg, Route: IVPB, ONC E, Dosing Weight 92.727, kg, Priority: STAT, Start date: 09/02/12 13:13:00, Stop date: 09/02/12 13:13:00 IVPB No Longer Active [facility] 09/02 [facility] Maxipime 2 gm, Route: IVPB, ON CE, Dosing Weight 92.727, kg, Priority: STAT, Start date: 09/02/12 13:13:00, Stop date: 09/02/12 13:13:00 IVPB No Longer Active [facility] 09/02 [facility] DuoNeb inhalation solution 3 m l, Route: INHALATION, Drug Form: SOLN, Dosing Weight 92.727, kg, PRN, PRN Respiratory Protocol, Start date: 09/02/12 12:52:00, Duration: 30 day, Stop date: 10/02/12 13:51:00 INHALATION No Longer Active [facility] 09/02 [facility] SoluMedrol 125 mg, Route: IVP, ONCE, Dosing Weight 92.727, kg, Priority: STAT, Start date: 09/02/12 12:52:00, Stop date: 09/02/12 12:52:00 IVP No Longer Active [facility] 09/02/2012 [facility] Zithromax 500 mg, Route: IVPB, ONCE, Dosing Weight 92.727, kg, Priority: STAT, Start date: 09/02/12 12:50:00, Stop date: 09/02/12 12:50:00 IVPB No Longer Active [facility] 09/02/2012 [facility] Rocephin 1 g/ NS (NaCl 0.9%) 50 mL IV solution 1 gm, Route: IVPB, Drug form: PDR/INJ, ONCE, Dosing Weight 92.727, kg, Priority: STAT, Start date: 09/02/12 12:49:00, Stop date: 09/02/12 12:49:00 IVPB No Longer Active [facility] 09/02/2012 [facility] pantoprazole 40 mg, 1 tab, Rou te: PO, Drug form: ECTAB, Before Breakfast, Dosing Weight 95, kg, Priority: Routine, Start date: 06/27/12 7:30:00, Duration: 30 day, Stop date: 07/26/12 7:30:00 PO No Longer Active [facility] 06/27/2012 [facility] Levaquin 500 mg, 2 tab, Route: PO, Drug form: TAB, [id number], Dosing Weight 95, kg, Start date: 06/26/12 11:00:00, Duration: 30 day, Stop date: 07/25/12 11:00:00 PO No Longer Active [facility] 06/26/2012 [facility] Levaquin 500 mg oral tablet 50 0 mg, 1 tab, PO, [id number], 4 tab, Substitution Allowed, TAB PO Active [facility] 06/26/2012 [facility] Levemir 15 unit, 0.15 mL, Rout e: SUB-Q, Drug form: INJ, QPM, Dosing Weight 95, kg, Start date: 06/24/12 17:00:00, Duration: 30 day, Stop date: 07/23/12 17:00:00 SUB-Q No [facility] 06/24/2012 [facility] glucagon 1 mg, Route: IM, Drug form: PDR/INJ, PRN, Dosing Weight 95, kg, PRN Abnormal Lab Result, Priority: STAT, Start date: 06/24/12 11:35:00, Duration: 30 day, Stop date: 07/24/12 11:34:00 IM No Longer Active [facility] 06/24/2012 [facility] insulin aspart 2 unit, 0.02 mL , Route: SUB-Q, Drug form: SOLN, Bedtime, Dosing Weight 95, kg, PRN Blood Glucose Results, Start date: 06/24/12 11:35:00, Duration: 30 day, Stop date: 07/24/12 11:34:00 SUB-Q No Longer Active [facility] 06/24/2012 [facility] Dextrose 50% Syringe 12.5 gm, 25 mL, Route: IVP, Drug Form: INJ, Dosing Weight 95, kg, PRN, PRN Blood Glucose Results, Start date: 06/24/12 11:35:00, Duration: 30 day, Stop date: 07/24/12 11:34:00 IVP No Longer Active [facility] 06/24/2012 [facility] docusate 100 mg, 1 cap, Route: PO, Drug form: CAP, BID, Dosing Weight 95, kg, Start date: 06/24/12 9:00:00, Duration: 30 day, Stop date: 07/23/12 17:00:00 PO No Longer Active [facility] 06/24/2012 [facility] Cycloset 3.2 mg, Route: PO, Dr ug form: TAB, After Breakfast, Dosing Weight 95, kg, Start date: 06/24/12 8:30:00, Duration: 30 day, Stop date: 07/23/12 8:30:00 PO No Longer Active [facility] 06/24/2012 [facility] Cycloset 3.2mg PO after breakfast-Use pt's home med* * Cycloset 3.2mg PO after breakfast-Use pt's home med, 3.2 mg, Drug form: MISC, Route: PO, After Breakfast, 06/24/12 8:30:00, Duration: 30 day, Stop date: 07/23/12 8:30:00 PO No Longer Active [facility] 06/24/2012 [facility] pantoprazole 40 mg, Route: IVP , Drug form: INJ, Before Breakfast, Dosing Weight 95, kg, Priority: Routine, Start date: 06/24/12 7:30:00, Duration: 30 day, Stop date: 07/23/12 7:30:00 IVP No Longer Active [facility] 06/24/2012 [facility] nitroglycerin 0.4 mg sublingual tablet 0.4 mg, 1 tab, Route: SL, Drug form: TAB, Q5Min, PRN Chest Pain, Start date: 06/24/12 0:03:00, Duration: 30 day, Stop date: 07/24/12 0:02:00 SL No Longer Active [facility] 06/24/2012 [facility] atropine 0.5 mg, 5 mL, Route: IVP, Drug form: INJ, PRN, PRN Bradycardia, Start date: 06/24/12 0:03:00, Duration: 30 day, Stop date: 07/24/12 0:02:00 IVP No Longer Active [facility] 06/24/2012 [facility] Rocephin + Sodium Chloride 0.9% IV 100 mL 1 gm, Route: IVPB, Drug form: PDR/INJ, Q24H, Dosing Weight 95, kg, Priority: Routine, Start date: 06/23/12 23:00:00, Duration: 30 day, Stop date: 07/22/12 23:00:00 [facility] normal saline 0.9% IV 1,000 mL 1,000 mL, Rate: 100 ml/hr, Infuse over: 10 hr, Route: IV, kg, Total Volume: 1,000, Start date: 06/23/12 22:20:00, Stop date: 06/24/12 23:31:00 IV No Longer Active [facility] 06/24/2012 [facility] acetaminophen 650 mg, 2 tab, R oute: PO, Drug form: TAB, Q8H, Dosing Weight 95, kg, PRN Pain/Fever, Start date: 06/23/12 22:20:00, Duration: 30 day, Stop date: 07/23/12 22:19:00 PO No Longer Active [facility] 06/24/2012 [facility] ondansetron 4 mg, 2 mL, Route: IVP, Drug form: INJ, Q6H, Dosing Weight 95, kg, PRN Nausea & Vomiting, Start date: 06/23/12 22:20:00, Duration: 30 day, Stop date: 07/23/12 22:19:00 IVP No Longer Active [facility] 06/24/2012 [facility] Saline Flush 0.9% 5 ml, Route: IVP, Drug Form: INJ, Dosing Weight 95, kg, PRN, PRN Line Flush, Start date: 06/23/12 22:20:00, Duration: 30 day, Stop date: 07/23/12 22:19:00 IVP No Longer Active [facility] 06/24/2012 [facility] aspirin 81 mg tablet, chewable 81 mg, 1 tab, Route: PO, Drug form: CHEWTAB, Q24H, Dosing Weight 95, kg, Start date: 06/23/12 22:00:00, Duration: 30 day, Stop date: 07/22/12 22:00:00 PO No Longer Active [facility] 06/24/2012 [facility] Dextrose 50% Syringe 25 gm, 50 mL, Route: IVP, Drug Form: INJ, Dosing Weight 95, kg, PRN, PRN Blood Glucose Results, Start date: 06/23/12 21:35:00, Duration: 30 day, Stop date: 07/23/12 21:34:00 IVP No Longer Active [facility] 06/24/2012 [facility] glucagon 1 mg, Route: IM, Drug form: PDR/INJ, PRN, Dosing Weight 95, kg, PRN Blood Glucose Results, Start date: 06/23/12 21:35:00, Duration: 30 day, Stop date: 07/23/12 21:34:00 IM No Longer Active [facility] 06/24/2012 [facility] insulin aspart 1 unit, 0.01 mL , Route: SUB-Q, Drug form: SOLN, TID-Before Meals, Dosing Weight 95, kg, PRN Blood Glucose Results, Start date: 06/23/12 21:35:00, Duration: 30 day, Stop date: 07/23/12 21:34:00 SUB-Q No Longer Active [facility] 10/2011 [facility] chlorthalidone 25 mg oral tablet 12.5 mg, 0.5 tab, PO, Daily, Substitution Allowed PO Active 06/24/2012 [facility] Cycloset 0.8 mg oral tablet 3. 2 mg, 4 tab, PO, After Breakfast, 2 hours after breakfast, Substitution Allowed2 hours after breakfast PO Active [facility] 10/2011 [facility] Calcium 600 +D oral tablet 1 t ab, PO, Daily, Substitution Allowed, Maintenance PO Active 06/24/2012 [facility] metoprolol 50 mg oral tablet, extended release 50 mg, 1 tab, PO, BID, Substitution Allowed PO Active 06/24/2012 [facility] Cycloset Substitution Allowed No Longer Active 06/24/2012 [facility] Osteo Bi-Flex 1 tab, PO, Daily , Substitution Allowed, Maintenance PO Active 06/24/2012 [facility] Vitamin D3 1000 intl units oral capsule 1,000 IntlUnit, 1 cap, PO, Daily, 100 cap, Substitution Allowed, CAP PO Active 06/24/2012 [facility] aspirin 81 mg tablet, chewable 81 mg, 1 tab, PO, Daily, 30 tab, Substitution Allowed, CHEWTAB PO Active [facility] 06/24/2012 [facility] Levemir FlexPen 15 unit, SUB-Q , Bedtime, Substitution Allowed SUB-Q Active 06/24/2012 [facility] Byetta 5 mcg/0.02 mL subcutaneous solution 5 microgram, 0.02 mL, SUB-Q, Daily, Substitution Allowed SUB-Q Active 06/24/2012 [facility] atorvastatin 10 mg oral tablet 10 mg, 1 tab, PO, QAM, 30 tab, Substitution Allowed, TAB PO Active 06/24/2012 [facility] amLODipine 5 mg oral tablet 5 mg, 1 tab, PO, BID, Substitution Allowed PO Active 06/24/2012 [facility] Diovan 320 mg oral tablet 320 mg, 1 tab, PO, Daily, 30 tab, Substitution Allowed, TAB PO Active 06/24/2012 [facility] metoprolol 50 mg oral tablet 5 0 mg, 1 tab, PO, BID, 180 tab, Substitution Allowed, TAB PO No Longer Active 06/24/2012 [facility] glimepiride 4 mg oral tablet 4 mg, 1 tab, PO, BID, Substitution Allowed PO Active 06/24/2012 [facility] ciprofloxacin 400 mg, Route: I VPB, ONCE, Dosing Weight 95, kg, Priority: STAT, Start date: 06/23/12 18:28:00, Stop date: 06/23/12 18:28:00 IVPB No Longer Active [facility] 06/24/2012 [facility] Sodium Chloride 0.9% IV 1,000 mL 1,000 mL, Rate: 100 ml/hr, Infuse over: 10 hr, Route: IV, kg, Total Volume: 1,000, Start date: 06/23/12 18:27:00, Duration: 30 day, Stop date: 07/23/12 18:26:00 IV No Longer Active [facility] 06/24/2012 [facility] Motrin 800 mg, Route: PO, Drug form: TAB, ONCE, Dosing Weight 95, kg, Priority: STAT, Start date: 06/23/12 17:28:00, Stop date: 06/23/12 17:28:00 PO No Longer Active [facility] 06/23/2012 [facility] Zofran ODT 4 mg oral tablet, disintegrating 4 mg, 1 tab, PO, BID, PRN, Dissolve tab under tongue, 10 tab, Nausea and Vomiting, Substitution AllowedDissolve tab under tongue PO On Hold Laxmi parvin 06/22/2012 [facility] Macrobid 100 mg oral capsule 1 00 mg, 1 cap, PO, BID, 14 cap, Substitution Allowed [facility] Sodium Chloride 0.9% (Bolus) IV 1,000 mL 1,000 mL, Rate: 1,000 ml/hr, Infuse over: 1 hr, Route: IV, Dosing Weight 95 kg, Total Volume: 1,000, Bolus dose, Priority: STAT, Start date: 06/22/12 9:07:00, Duration: 1 doses or times, Stop date: 06/22/12 10:06:00 IV No Longer Active [facility] 06/22/2012 [facility] Saline Flush 0.9% 5 mL, Route: IVP, Dosing Weight 95, kg, PRN, PRN Line Flush, Start date: 06/22/12 9:07:00, Duration: 24 hr, Stop date: 06/23/12 9:06:00 IVP No Longer Active [facility] 06/22/2012 [facility] ondansetron 4 mg, Route: IVP, ONCE, Dosing Weight 95, kg, Priority: STAT, Start date: 06/22/12 9:07:00, Stop date: 06/22/12 9:07:00 IVP No Longer Active [facility] 08/2011 [facility] Atorvastatin Calcium 10 MG Oral Tablet (Active) Active [facility] Levemir SOLN (Active) Active [facility] Metoprolol Succinate ER 50 MG Oral Table t Extended Release 24 Hour (Active) A ctive [facility] Diovan 320 MG Oral Tablet (Ac tive) Active [facility] AmLODIPine Besylate 5 MG Oral Tablet (Active) Active [facility] Byetta 5 MCG Pen SOLN (Active) Active [facility] NovoLOG FlexPen SOLN (Active) Active [facility] Aspirin 81 MG Oral Tablet (Ac tive) Active [facility] Allergies, Adverse Reactions, Alerts Substance Category Reaction Severity Reaction type Status Date Reported Comments Source No Known Medication Allergies Assertion Drug aller [facility] Immunizations Immunization Date Given Site Status Last Updated Comments Source influenza virus vaccine, inactivated<sup>1</sup> 04/09/2018 Right Deltoid completed [facility] Result Comment: Pt declined to wait the 15 min after injection. Medical [facility] influenza virus vaccine, inactivated<sup>2</sup> 09/03/2012 completed [facility] Admin Note: PATIENT S TATES RECEIVED IN APRIL OF 2012 AT [facility] influenza virus vaccine, inactivated<sup>1</sup> 09/03/2012 completed [facility] Admin Note: PATIENT S TATES RECEIVED IN APRIL OF 2012 AT [facility], SARAH Hahn, SARAH Ricketts,[facility], [facility]AH [place] influenza virus vaccine, inactivated<sup>1</sup> 09/03/2012 completed [facility] 1PATIENT STATES RECEI BERTHA IN APRIL OF 2012 AT [facility] Results Order Name Results Value Reference Range Date Interpretation Comments Source CHEM PANEL Glucose Lvl 97 65 - 99 12/16/2019 Result Comment:
Fasting reference interval

Lab test performed by:
[facility]
[address]
[place] [address]
Neri Padmini [facility] CHEM PANEL BUN 19 7 - 25 12/16/2019 Medical [facility] CHEM PANEL Creatinine Lvl 0.95 0.60 - 0.88 12/16/2019 Result Comment: For patients >49 years o f age, the reference limit
for Creatinine is approximately 13% higher for people
identified as -Libyan. [facility] CHEM PANEL eGFR NON-AFR. MACEDONIAN 54 > OR = 60 mL/min/1.73m2 2019 [facility] CHEM PANEL eGFR 63 > OR = 60 mL/min/1.73m2 2019 [facility] CHEM PANEL B/C Ratio 20 6 - 22 12/16/2019 Medical [facility] CHEM PANEL Sodium Lvl 147 135 - 146 12/16/2019 Medical [facility] CHEM PANEL Potassium Lvl 3.3 3.5 - 5.3 12/16/2019 [facility] CHEM PANEL Chloride Lvl 108 98 - 110 12/16/2019 [facility] CHEM PANEL CO2 27 20 - 32 12/16/2019 [facility] CHEM PANEL Calcium Lvl 9.5 8.6 - 10.4 12/16/2019 Medical [facility] CHEM PANEL Total Protein 5.9 6.1 - 8.1 12/16/2019 [facility] CHEM PANEL Albumin Lvl 3.5 3.6 - 5.1 12/16/2019 [facility] CHEM PANEL Globulin 2.4 1.9 - 3.7 12/16/2019 Medical [facility] CHEM PANEL A/G Ratio 1.5 1.0 - 2.5 12/16/2019 [facility] CHEM PANEL Bili Total 0.7 0.2 - 1.2 12/16/2019 [facility] CHEM PANEL Alk Phos 199 37 - 153 12/16/2019 [facility] CHEM PANEL ASPARTATE TRANSAMINASE 27 10 - 35 12/16/2019 [facility] CHEM PANEL ALANINE AMINOTRANSFERASE 18 6 - 29 12/16/2019 [facility] CHEM PANEL Vitamin D, 25-OH, Total 5 5 30 - 100 12/16/2019 Result Comment: Vitamin D Status 25-OH Vitamin D:

Deficiency: <20 ng/mL
Insufficiency: 20 - 29 ng/mL
Optimal: > or = 30 ng/mL

For 25-OH Vitamin D testing on patients on
D2-supplementation and patients for whom quantitation
of D2 and D3 fractions is required, the [facility]
25-OH VIT D, (D2,D3), LC/MS/MS is recommended: order
code 96785 (patients >2yrs).
See Note 1

Note 1

For additional information, please refer to
http://education.[facility]/faq/IDD787
(This link is being provided for informational/
educational purposes only.)

Lab test performed by:
[facility]
[address] [place] [address]
[place] [address]
Neri Cisse [facility] HEMATOLOGY WBC X 10x3 7.4 3.8 - 10.8 12/16/2019 Result Comment:
Lab test perf ormed by:
[facility]
[address] [place] [address]
[place] [address]
Neri Cisse [facility] HEMATOLOGY RBC X 10x6 4.14 3.80 - 5.10 12/16/2019 [facility] HEMATOLOGY Hgb 12.8 11.7 - 15.5 12/16/2019 [facility] HEMATOLOGY Hct 38.1 35.0 - 45.0 12/16/2019 [facility] HEMATOLOGY MCV 92.0 80.0 - 100.0 12/16/2019 [facility] HEMATOLOGY MCH 30.9 27.0 - 33.0 12/16/2019 [facility] HEMATOLOGY MCHC 33.6 32.0 - 36.0 12/16/2019 [facility] HEMATOLOGY RDW 13.9 11.0 - 15.0 12/16/2019 [facility] HEMATOLOGY Platelet 282 140 - 400 12/16/2019 [facility] HEMATOLOGY MPV 9.9 7.5 - 12.5 12/16/2019 [facility] HEMATOLOGY Neutrophils # 5654 1500 - 7800 12/16/2019 [facility] HEMATOLOGY Lymphocytes # 1043 850 - 3900 12/16/2019 [facility] HEMATOLOGY Monocytes # 555 200 - 950 12/16/2019 [facility] HEMATOLOGY Eosinophils # 118 15 - 500 12/16/2019 [facility] HEMATOLOGY Basophils # 30 0 - 200 12/16/2019 [facility] HEMATOLOGY Segs 76.4 12/16/2019 [facility] HEMATOLOGY Lymphocytes 14.1 12/16/2019 [facility] HEMATOLOGY Monocytes 7.5 12/16/2019 [facility] HEMATOLOGY Eosinophils 1.6 12/16/2019 [facility] HEMATOLOGY Basophils 0.4 12/16/2019 [facility] LIPIDS Chol 121 <200 mg/dL 12/16/2019 Result Comment:
Lab test performed by:
[facility]
[address] [place] [address]
[place] [address]
Neri Cisse [facility] LIPIDS HDL 46 > OR = 50 mg/dL 12/16/2019 [facility] LIPIDS Trig 126 <150 mg/dL 12/16/2019 [facility] LIPIDS LDL (Calculated) 54 12/16/2019 Result Comment: Reference range: <100

Desirable range <100 mg/dL for primary prevention;
<70 mg/dL for patients with CHD or diabetic patients
with > or = 2 CHD risk factors.

LDL-C is now calculated using the Regina
calculation, which is a validated novel method providing
better accuracy than the Friedewald equation in the
estimation of LDL- C.
Bob HARMON et al. RUKHSANA. 2013;310(19): 4117-9164
(http://[employer].[facility]/faq/KVL413) [facility] LIPIDS CHD Risk 2.6 <5.0 (CALC) 12/16/2019 [facility] LIPIDS Non HDL Chol 75 <130 mg/dL 12/16/2019 Result Comment: For patients with diabet es plus 1 major ASCVD risk
factor, treating to a non-HDL-C goal of <100 mg/dL
(LDL-C of <70 mg/dL) is considered a therapeutic
option. [facility] SPECIAL CHEMISTRY Hgb A1C 6.7 <5.7 % 12/16/2019 Result Comment: For someone without know n diabetes, a hemoglobin A1c
value of 6.5% or greater indicates that they may have
diabetes and this should be confirmed with a follow-up
test.

For someone with known diabetes, a value <7% indicates
that their diabetes is well controlled and a value
greater than or equal to 7% indicates suboptimal
control. A1c targets should be individualized based on
duration of diabetes, age, comorbid conditions, and
other considerations.

Currently, no consensus exists regarding use of
hemoglobin A1c for diagnosis of diabetes for children.

Lab test performed by:
[facility]
[address] [place] [address]
[place] [address]
Neri Cisse [facility] CHEM PANEL A/G Ratio 1.4 1.0 - 2.5 07/04/2018 [facility] CHEM PANEL Bili Total 0.5 0.2 - 1.2 07/04/2018 [facility] CHEM PANEL ASPARTATE TRANSAMINASE 22 10 - 35 07/04/2018 [facility] CHEM PANEL Alk Phos 105 33 - 130 07/04/2018 [facility] CHEM PANEL Globulin 2.7 1.9 - 3.7 07/04/2018 [facility] CHEM PANEL ALANINE AMINOTRANSFERASE 12 6 - 29 07/04/2018 [facility] CHEM PANEL Total Protein 6.5 6.1 - 8.1 07/04/2018 [facility] CHEM PANEL Albumin Lvl 3.8 3.6 - 5.1 07/04/2018 [facility] CHEM PANEL CO2 25 20 - 32 07/04/2018 [facility] CHEM PANEL Calcium Lvl 10.0 8.6 - 10.4 07/04/2018 [facility] CHEM PANEL Chloride Lvl 105 98 - 110 07/04/2018 [facility] CHEM PANEL eGFR 31 > OR = 60 mL/min/1.73m2 2017 [facility] CHEM PANEL B/C Ratio 32 6 - 22 07/04/2018 [facility] CHEM PANEL Sodium Lvl 141 135 - 146 07/04/2018 [facility] CHEM PANEL Potassium Lvl 5.0 3.5 - 5.3 07/04/2018 [facility] CHEM PANEL Glucose Lvl 147 65 - 99 07/04/2018 Result Comment:
Fasting reference interval

For someone without known diabetes, a glucose
value >125 mg/dL indicates that they may have
diabetes and this should be confirmed with a
follow-up test.

Lab test performed by:
[facility]
[address] [place] [address]
[place] [address]
Temitope Comer [facility] CHEM PANEL BUN 54 7 - 25 07/04/2018 [facility] CHEM PANEL eGFR NON-AFR. MACEDONIAN 27 > OR = 60 mL/min/1.73m2 2017 [facility] CHEM PANEL Creatinine Lvl 1.71 0.60 - 0.88 07/04/2018 Result Comment: For patients >49 years o f age, the reference limit
for Creatinine is approximately 13% higher for people
identified as -Libyan. [facility] HEMATOLOGY Monocytes 6.1 07/04/2018 [facility] HEMATOLOGY Basophils 0.7 07/04/2018 [facility] HEMATOLOGY Eosinophils 1.8 07/04/2018 [facility] HEMATOLOGY Lymphocytes 21.1 07/04/2018 [facility] HEMATOLOGY Segs 70.3 07/04/2018 [facility] HEMATOLOGY Eosinophils # 162 15 - 500 07/04/2018 [facility] HEMATOLOGY Basophils # 63 0 - 200 07/04/2018 [facility] HEMATOLOGY MCHC 34.2 32.0 - 36.0 07/04/2018 [facility] HEMATOLOGY Monocytes # 549 200 - 950 07/04/2018 [facility] HEMATOLOGY Platelet 317 140 - 400 07/04/2018 [facility] HEMATOLOGY RDW 13.1 11.0 - 15.0 07/04/2018 [facility] HEMATOLOGY Neutrophils # 1546 2869 - 1765 07/04/2018 [facility] HEMATOLOGY Lymphocytes # 7569 089 - 9016 07/04/2018 [facility] HEMATOLOGY MPV 11.0 7.5 - 12.5 07/04/2018 [facility] HEMATOLOGY WBC X 10x3 9.0 3.8 - 10.8 07/04/2018 Result Comment:
Lab test perf ormed by:
[facility]
[address]
[place] [address]
Temitope Segoviany [facility] HEMATOLOGY MCH 30.9 27.0 - 33.0 07/04/2018 [facility] HEMATOLOGY Hct 40.1 35.0 - 45.0 07/04/2018 [facility] HEMATOLOGY MCV 90.5 80.0 - 100.0 07/04/2018 [facility] HEMATOLOGY Hgb 13.7 11.7 - 15.5 07/04/2018 [facility] HEMATOLOGY RBC X 10x6 4.43 3.80 - 5.10 07/04/2018 [facility] LIPIDS Non HDL Chol 90 <130 mg/dL 07/04/2018 Result Comment: For patients with diabet es plus 1 major ASCVD risk
factor, treating to a non-HDL-C goal of <100 mg/dL
(LDL-C of <70 mg/dL) is considered a therapeutic
option. [facility] LIPIDS LDL (Calculated) 63 07/04/2018 Result Comment: Reference range: <100

Desirable range <100 mg/dL for primary prevention;
<70 mg/dL for patients with CHD or diabetic patients
with > or = 2 CHD risk factors.

LDL-C is now calculated using the Regina
calculation, which is a validated novel method providing
better accuracy than the Friedewald equation in the
estimation of LDL- C.
Bob HARMON et al. RUKHSANA. 2013;310(95): 5812-7272
(http://education.[facility]/faq/MAI745) [facility] LIPIDS HDL 48 >50 mg/dL 07/04/2018 [facility] LIPIDS Trig 202 <150 mg/dL 07/04/2018 [facility] LIPIDS CHD Risk 2.9 <5.0 (CALC) 07/04/2018 [facility] LIPIDS Chol 138 <200 mg/dL 07/04/2018 Result Comment:
Lab test performed by:
[facility]
[address] [place] [address]
[place] [address]
Temitope Comer [facility] SPECIAL CHEMISTRY Hgb A1C 6.8 <5.7 % 07/04/2018 Result Comment: For someone without know n diabetes, a hemoglobin A1c
value of 6.5% or greater indicates that they may have
diabetes and this should be confirmed with a follow-up
test.

For someone with known diabetes, a value <7% indicates
that their diabetes is well controlled and a value
greater than or equal to 7% indicates suboptimal
control. A1c targets should be individualized based on
duration of diabetes, age, comorbid conditions, and
other considerations.

Currently, no consensus exists regarding use of
hemoglobin A1c for diagnosis of diabetes for children.

FASTING:YES

FASTING: YES

Lab test performed by:
[facility]
[address] [place] [address]
[place] [address]
Temitope Comer [facility] URINE CHEM U Alb/Crea 54 <30 mcg/mg creat 07/04/2018 Result Comment:
The ADA defines ab normalities in albumin
excretion as follows:

Category Result (mcg/mg creatinine)

Normal <30
Microalbuminuria 30-299
Clinical albuminuria > OR = 300

The ADA recommends that at least two of three
specimens collected within a 3-6 month period be
abnormal before considering a patient to be
within a diagnostic category. [facility] URINE CHEM U Creat mg/dL 85 20 - 275 07/04/2018 Result Comment:
Lab test perf ormed by:
[facility]
[address]
[place] [address]
Temitope Adam Souleymane [facility] URINE CHEM U Alb 4.6 See Note: mg/dL 07/04/2018 Result Comment: Reference Range:

Reference Range
Not established Medical [facility] CHEM PANEL Alk Phos 98 39 - 117 12/03/2017 [facility] CHEM PANEL Bili Total 0.4 0.0 - 1.2 12/03/2017 [facility] CHEM PANEL ALANINE AMINOTRANSFERASE 15 0 - 32 12/03/2017 [facility] CHEM PANEL ASPARTATE TRANSAMINASE 23 0 - 40 12/03/2017 [facility] CHEM PANEL Chloride Lvl 107 96 - 106 12/03/2017 [facility] CHEM PANEL Potassium Lvl 5.0 3.5 - 5.2 12/03/2017 [facility] CHEM PANEL Sodium Lvl 143 134 - 144 12/03/2017 [facility] CHEM PANEL Total Protein 6.9 6.0 - 8.5 12/03/2017 [facility] CHEM PANEL Calcium Lvl 10.0 8.7 - 10.3 12/03/2017 [facility] CHEM PANEL CO2 20 18 - 29 12/03/2017 [facility] CHEM PANEL B/C Ratio 21 12 - 28 12/03/2017 [facility] CHEM PANEL Creatinine Lvl 1.64 0.57 - 1.00 12/03/2017 [facility] CHEM PANEL BUN 35 8 - 27 12/03/2017 [facility] CHEM PANEL Glucose Lvl 173 65 - 99 12/03/2017 [facility] CHEM PANEL A/G Ratio 1.2 1.2 - 2.2 12/03/2017 [facility] CHEM PANEL Globulin 3.1 1.5 - 4.5 12/03/2017 [facility] CHEM PANEL Albumin Lvl 3.8 3.5 - 4.7 12/03/2017 [facility] HEMATOLOGY Immature Cells # 0.0 0.0 - 0.1 12/03/2017 [facility] HEMATOLOGY Immature Grans % 1 Not Estab. % 12/03/2017 [facility] HEMATOLOGY Basophils # 0.0 0.0 - 0.2 12/03/2017 [facility] HEMATOLOGY Eosinophils # 0.1 0.0 - 0.4 12/03/2017 [facility] HEMATOLOGY Monocytes # 0.4 0.1 - 0.9 12/03/2017 [facility] HEMATOLOGY Eosinophils 2 Not Estab. % 12/03/2017 [facility] HEMATOLOGY Monocytes 7 Not Estab. % 12/03/2017 [facility] HEMATOLOGY Lymphocytes 32 Not Estab. % 12/03/2017 [facility] HEMATOLOGY Segs 57 Not Estab. % 12/03/2017 [facility] HEMATOLOGY Platelet 318 150 - 379 12/03/2017 [facility] HEMATOLOGY RDW 14.6 12.3 - 15.4 12/03/2017 [facility] HEMATOLOGY Lymphocytes # 1.8 0.7 - 3.1 12/03/2017 [facility] HEMATOLOGY Segs-Bands # 3.2 1.4 - 7.0 12/03/2017 [facility] HEMATOLOGY Basophils 1 Not Estab. % 12/03/2017 [facility] HEMATOLOGY MCHC 31.9 31.5 - 35.7 12/03/2017 [facility] HEMATOLOGY WBC X 10x3 5.6 3.4 - 10.8 12/03/2017 [facility] HEMATOLOGY MCH 30.3 26.6 - 33.0 12/03/2017 [facility] [facility] HEMATOLOGY MCV 95 79 - 97 12/03/2017 [facility] HEMATOLOGY Hct 40.1 34.0 - 46.6 12/03/2017 [facility] HEMATOLOGY Hgb 12.8 11.1 - 15.9 12/03/2017 [facility] HEMATOLOGY RBC X 10x6 4.22 3.77 - 5.28 12/03/2017 [facility] SPECIAL CHEMISTRY Hgb A1C 8.0 4.8 - 5.6 12/03/2017 Result Comment: Pre-diabetes: 5 .7 - 6.4
Diabetes: >6.4
Glycemic control for adults with diabetes: <7.0 [facility] CHEM PANEL Vitamin D, 25-OH, Total 4 5.9 30.0 - 100.0 07/30/2016 Result Comment: Vitamin D deficiency has been defined by the Helper of
Medicine and an Endocrine Society practice guideline as a
level of serum 25-OH vitamin D less than 20 ng/mL (1,2).
The Endocrine Society went on to further define vitamin D
insufficiency as a level between 21 and 29 ng/mL (2).
1. IOM (Helper of Medicine). 2010. Dietary referen ce
intakes for calcium and D. [place]: The
National AcademNduo.cn Press.
2. Alan MF, Ty LAZARO, Keely PERRY, et al.
Evaluation, treatment, and prevention of vitamin D
deficiency: an Endocrine Society clinical practice
guideline. JCEM. 2010; 96(7):1911-30.
A duplicate report has been generated due to demographic updates.
[facility] [place]
[address]

[place]
[id number]
[phone]

Aurora fuller
Steve

[facility] ELECTROLYTES Chloride Lvl 103 96 - 106 07/30/2016 [facility] ELECTROLYTES Calcium Lvl 9.5 8.7 - 10.3 07/30/2016 [facility] ELECTROLYTES CO2 21 18 - 29 07/30/2016 [facility] ELECTROLYTES Creatinine Lvl 1.4 0 0.57 - 1.00 07/30/2016 [facility] ELECTROLYTES B/C Ratio 21 11 - 26 07/30/2016 [facility] ELECTROLYTES Sodium Lvl 145 134 - 144 07/30/2016 [facility] ELECTROLYTES Potassium Lvl 4.6 3.5 - 5.2 07/30/2016 [facility] ELECTROLYTES Glucose Lvl 110 65 - 99 07/30/2016 [facility] ELECTROLYTES BUN 30 8 - 27 07/30/2016 [facility] ELECTROLYTES Bili Total 0.4 0.0 - 1.2 07/30/2016 [facility] ELECTROLYTES Albumin Lvl 3.9 3.5 - 4.7 07/30/2016 [facility] ELECTROLYTES Globulin 2.2 1.5 - 4.5 07/30/2016 [facility] ELECTROLYTES Total Protein 6.1 6.0 - 8.5 07/30/2016 [facility] ELECTROLYTES A/G Ratio 1.8 1.1 - 2.5 07/30/2016 [facility] ELECTROLYTES Alk Phos 113 39 - 117 07/30/2016 [facility] ELECTROLYTES ALANINE AMINOTRANSFERAS E 13 0 - 32 07/30/2016 [facility] ELECTROLYTES ASPARTATE TRANSAMINASE 24 0 - 40 07/30/2016 [facility] HEMATOLOGY Basophils 1 07/30/2016 [facility] HEMATOLOGY Monocytes 7 07/30/2016 [facility] HEMATOLOGY Eosinophils 3 07/30/2016 [facility] HEMATOLOGY Neutrophils # 3.9 1.4 - 7.0 07/30/2016 [facility] HEMATOLOGY MCH 31.1 26.6 - 33.0 07/30/2016 [facility] HEMATOLOGY Platelet 284 150 - 379 07/30/2016 [facility] HEMATOLOGY Segs 51 07/30/2016 [facility] HEMATOLOGY MCHC 33.5 31.5 - 35.7 07/30/2016 [facility] HEMATOLOGY RDW 14.4 12.3 - 15.4 07/30/2016 [facility] HEMATOLOGY Immature Cells # 0.0 0.0 - 0.1 07/30/2016 [facility] HEMATOLOGY Monocytes # 0.5 0.1 - 0.9 07/30/2016 [facility] HEMATOLOGY Eosinophils # 0.2 0.0 - 0.4 07/30/2016 [facility] HEMATOLOGY Lymphocytes # 2.8 0.7 - 3.1 07/30/2016 [facility] HEMATOLOGY Basophils # 0.0 0.0 - 0.2 07/30/2016 [facility] HEMATOLOGY Immature Grans % 0 07/30/2016 [facility] HEMATOLOGY WBC X 10x3 7.5 3.4 - 10.8 07/30/2016 [facility] HEMATOLOGY Lymphocytes 38 07/30/2016 [facility] HEMATOLOGY RBC X 10x6 4.25 3.77 - 5.28 07/30/2016 [facility] HEMATOLOGY MCV 93 79 - 97 07/30/2016 [facility] HEMATOLOGY Hgb 13.2 11.1 - 15.9 07/30/2016 [facility] HEMATOLOGY Hct 39.4 34.0 - 46.6 07/30/2016 [facility] LIPIDS Trig 116 0 - 149 07/30/2016 [facility] LIPIDS Chol 132 100 - 199 07/30/2016 [facility] LIPIDS HDL 61 >39 mg/dL 07/30/2016 [facility] LIPIDS VLDL 23 5 - 40 07/30/2016 [facility] LIPIDS LDL/HDL RATIO 0.8 0.0 - 3.2 07/30/2016 Result Comment: LDL/HDL Ratio
Men Women
1/2 Avg.Risk 1.0 1.5
Avg.Risk 3.6 3.2
2X Avg.Risk 6.2 5.0< br/> 3X Avg.Risk 8.0 6.1 [facility] LIPIDS LDL (Calculated) 48 0 - 99 07/30/2016 [facility] SPECIAL CHEMISTRY Hgb A1C 6.8 4.8 - 5.6 07/30/2016 Result Comment: Pre-diabetes: 5 .7 - 6.4
Diabetes: >6.4
Glycemic control for adults with diabetes: <7.0 [facility] CHEM PANEL Vitamin D, 25-OH, Total 5 1.6 30.0 - 100.0 04/30/2016 Result Comment: Vitamin D deficiency has been defined by the Helper of
Medicine and an Endocrine Society practice guideline as a
level of serum 25-OH vitamin D less than 20 ng/mL (1,2).
The Endocrine Society went on to further define vitamin D
insufficiency as a level between 21 and 29 ng/mL (2).
1. IOM (Helper of Medicine). 2010. Dietary referen ce
intakes for calcium and D. [place]: The
National Academies Press.
2. Alan MF, Ty [place], Keely PERRY, et al.
Evaluation, treatment, and prevention of vitamin D
deficiency: an Endocrine Society clinical practice
guideline. JCEM. 2010; 96(7):1911-30.
A duplicate report has been generated due to demographic updates.
[facility] [place]
[address]

[place]
[id number]

Aurora fuller
Steve

[facility] URINE CHEM U Creat mg/dL 62.7 Not Estab. mg/dL 04/30/2016 [facility] URINE CHEM U Alb/Crea 27.6 0.0 - 30.0 04/30/2016 [facility] URINE CHEM U Alb 17.3 Not Estab. microgram/mL 04/30/2016 [facility] CHEM PANEL eGFR 42 04/16/2016 Result Comment: The eGFR is calculated [...] should be multiplied by the estimated BMI. [facility] CHEM PANEL Albumin Lvl 3.1 3.5 - 5.0 04/16/2016 [facility] CHEM PANEL ALT 31 0 - 65 04/16/2016 [facility] CHEM PANEL Total Protein 6.9 6.4 - 8.4 04/16/2016 [facility] CHEM PANEL Bili Total 0.6 0.2 - 1.3 04/16/2016 [facility] CHEM PANEL Alk Phos 181 39 - 136 04/16/2016 [facility] CHEM PANEL AST 28 0 - 37 04/16/2016 [facility] CHEM PANEL Creatinine Lvl 1.20 0.50 - 1.40 04/16/2016 [facility] CHEM PANEL BUN 17 7 - 22 04/16/2016 [facility] CHEM PANEL Glucose Lvl 109 70 - 99 04/16/2016 [facility] CHEM PANEL Potassium Lvl 3.9 3.5 - 5.1 04/16/2016 [facility] CHEM PANEL Sodium Lvl 144 135 - 145 04/16/2016 [facility] CHEM PANEL Calcium Lvl 9.2 8.5 - 10.5 04/16/2016 [facility] CHEM PANEL CO2 26 24 - 32 04/16/2016 [facility] CHEM PANEL Chloride Lvl 111 95 - 109 04/16/2016 [facility] CHEM PANEL A/G Ratio 0.8 0.7 - 1.6 04/16/2016 [facility] CHEM PANEL Globulin 3.8 2.7 - 4.2 04/16/2016 [facility] CHEM PANEL B/C Ratio 14 6 - 25 04/16/2016 [facility] CHEM PANEL AGAP 10.9 10.0 - 20.0 04/16/2016 [facility] HEMATOLOGY MPV 8.0 7.4 - 10.4 04/16/2016 [facility] HEMATOLOGY MCH 31.1 27.0 - 31.0 04/16/2016 [facility] HEMATOLOGY MCV 92.3 80.0 - 98.0 04/16/2016 [facility] HEMATOLOGY MCHC 33.6 32.0 - 36.0 04/16/2016 [facility] HEMATOLOGY RDW 14.1 11.5 - 14.5 04/16/2016 [facility] HEMATOLOGY Platelet 383 133 - 450 04/16/2016 [facility] HEMATOLOGY WBC 9.2 3.7 - 10.4 04/16/2016 [facility] HEMATOLOGY Hct 35.7 36.0 - 48.0 04/16/2016 [facility] HEMATOLOGY RBC 3.87 4.20 - 5.40 04/16/2016 [facility] HEMATOLOGY Hgb 12.0 12.0 - 16.0 04/16/2016 [facility] HEMATOLOGY Basophils 0.7 0.0 - 1.0 04/16/2016 [facility] HEMATOLOGY Segs-Bands # 6.8 1.5 - 8.1 04/16/2016 [facility] HEMATOLOGY Eosinophils 2.9 0.0 - 4.0 04/16/2016 [facility] HEMATOLOGY Monocytes 6.7 2.0 - 12.0 04/16/2016 [facility] HEMATOLOGY Eosinophils # 0.3 0.0 - 0.5 04/16/2016 [facility] HEMATOLOGY Monocytes # 0.6 0.0 - 0.8 04/16/2016 [facility] HEMATOLOGY Lymphocytes # 1.5 1.0 - 5.5 04/16/2016 [facility] HEMATOLOGY Basophils # 0.1 0.0 - 0.2 04/16/2016 [facility] HEMATOLOGY Segs 73.5 45.0 - 75.0 04/16/2016 [facility] HEMATOLOGY Lymphocytes 16.2 20.0 - 40.0 04/16/2016 [facility] CHEM PANEL eGFR 30 04/09/2016 Result Comment: The eGFR is calculated [...] should be multiplied by the estimated BMI. [facility] CHEM PANEL CO2 17 24 - 32 04/09/2016 [facility] CHEM PANEL Chloride Lvl 115 95 - 109 04/09/2016 [facility] CHEM PANEL Calcium Lvl 8.2 8.5 - 10.5 04/09/2016 [facility] CHEM PANEL AGAP 15.4 10.0 - 20.0 04/09/2016 [facility] CHEM PANEL Glucose Lvl 135 70 - 99 04/09/2016 [facility] CHEM PANEL Potassium Lvl 4.4 3.5 - 5.1 04/09/2016 [facility] CHEM PANEL Sodium Lvl 143 135 - 145 04/09/2016 [facility] CHEM PANEL Creatinine Lvl 1.59 0.50 - 1.40 04/09/2016 [facility] CHEM PANEL BUN 42 7 - 22 04/09/2016 [facility] CHEM PANEL Magnesium Lvl 2.0 1.8 - 2.4 04/09/2016 [facility] CHEM PANEL Phosphorus 3.1 2.5 - 4.5 04/09/2016 [facility] HEMATOLOGY Segs 82.1 45.0 - 75.0 04/09/2016 [facility] HEMATOLOGY Lymphocytes 9.1 20.0 - 40.0 04/09/2016 [facility] HEMATOLOGY Monocytes 7.8 2.0 - 12.0 04/09/2016 [facility] HEMATOLOGY Monocytes # 0.8 0.0 - 0.8 04/09/2016 [facility] Eosinophils # 0.1 0.0 - 0.5 04/09/2016 [facility] Segs-Bands # 8.6 1.5 - 8.1 04/09/2016 [facility] Lymphocytes # 1.0 1.0 - 5.5 04/09/2016 [facility] Basophils 0.3 0.0 - 1.0 04/09/2016 [facility] Eosinophils 0.7 0.0 - 4.0 04/09/2016 [facility] RDW 14.2 11.5 - 14.5 04/09/2016 [facility] Platelet 199 133 - 450 04/09/2016 [facility] MPV 9.1 7.4 - 10.4 04/09/2016 [facility] MCHC 33.5 32.0 - 36.0 04/09/2016 [facility] MCH 31.6 27.0 - 31.0 04/09/2016 [facility] MCV 94.2 80.0 - 98.0 04/09/2016 [facility] Hgb 11.0 12.0 - 16.0 04/09/2016 [facility] RBC 3.50 4.20 - 5.40 04/09/2016 [facility] Hct 33.0 36.0 - 48.0 04/09/2016 [facility] WBC 10.5 3.7 - 10.4 04/09/2016 [facility] CHEM PANEL eGFR 21 04/08/2016 Result Comment: The eGFR is calculated [...] should be multiplied by the estimated BMI. [facility] CHEM PANEL BUN 54 7 - 22 04/08/2016 [facility] CHEM PANEL Creatinine Lvl 2.16 0.50 - 1.40 04/08/2016 [facility] CHEM PANEL Sodium Lvl 140 135 - 145 04/08/2016 [facility] CHEM PANEL Glucose Lvl 195 70 - 99 04/08/2016 [facility] CHEM PANEL Chloride Lvl 111 95 - 109 04/08/2016 [facility] CHEM PANEL Potassium Lvl 4.6 3.5 - 5.1 04/08/2016 [facility] CHEM PANEL CO2 19 24 - 32 04/08/2016 [facility] CHEM PANEL Calcium Lvl 8.2 8.5 - 10.5 04/08/2016 [facility] CHEM PANEL AGAP 14.6 10.0 - 20.0 04/08/2016 [facility] CHEM PANEL Magnesium Lvl 2.0 1.8 - 2.4 04/08/2016 [facility] CHEM PANEL Phosphorus 3.5 2.5 - 4.5 04/08/2016 [facility] HEMATOLOGY MCHC 31.9 32.0 - 36.0 04/08/2016 [facility] HEMATOLOGY RDW 13.9 11.5 - 14.5 04/08/2016 [facility] HEMATOLOGY MPV 9.1 7.4 - 10.4 04/08/2016 [facility] HEMATOLOGY Platelet 205 133 - 450 04/08/2016 [facility] HEMATOLOGY RBC 3.79 4.20 - 5.40 04/08/2016 [facility] HEMATOLOGY Hgb 11.5 12.0 - 16.0 04/08/2016 [facility] HEMATOLOGY WBC 15.8 3.7 - 10.4 04/08/2016 [facility] HEMATOLOGY MCH 30.3 27.0 - 31.0 04/08/2016 [facility] HEMATOLOGY MCV 94.9 80.0 - 98.0 04/08/2016 [facility] HEMATOLOGY Hct 35.9 36.0 - 48.0 04/08/2016 [facility] HEMATOLOGY Basophils # 0.1 0.0 - 0.2 04/08/2016 [facility] HEMATOLOGY Eosinophils # 0.2 0.0 - 0.5 04/08/2016 [facility] HEMATOLOGY Monocytes # 1.2 0.0 - 0.8 04/08/2016 [facility] HEMATOLOGY Lymphocytes 11.6 20.0 - 40.0 04/08/2016 [facility] HEMATOLOGY Segs 79.2 45.0 - 75.0 04/08/2016 [facility] HEMATOLOGY Lymphocytes # 1.8 1.0 - 5.5 04/08/2016 [facility] HEMATOLOGY Monocytes 7.6 2.0 - 12.0 04/08/2016 [facility] HEMATOLOGY Eosinophils 1.1 0.0 - 4.0 04/08/2016 [facility] HEMATOLOGY Basophils 0.5 0.0 - 1.0 04/08/2016 [facility] HEMATOLOGY Segs-Bands # 12.5 1.5 - 8.1 04/08/2016 [facility] CHEM PANEL eGFR 25 04/07/2016 Result Comment: The eGFR is calculated [...] should be multiplied by the estimated BMI. [facility] CHEM PANEL Creatinine Lvl 1.88 0.50 - 1.40 04/07/2016 [facility] HEMATOLOGY Platelet 211 133 - 450 04/07/2016 [facility] URINE AND STOOL UA Glucose 100 mg/dL Negative mg/dL 04/07/2016 [facility] URINE AND STOOL UA Turbidity Slight Cloudy (04/07/16 7:09 AM) Clear 04/07/2016 [facility] URINE AND STOOL UA Protein 100 mg/dL Negative mg/dL 04/07/2016 [facility] URINE AND STOOL UA Spec Grav 1.020 <=1.030 04/07/2016 [facility] URINE AND STOOL UA pH 6.0 5.0 - 8.0 04/07/2016 [facility] URINE AND STOOL UA Blood Large *ABN* (04/07/16 7:09 AM) Negative 04/07/2016 [facility] URINE AND STOOL UA Urobilinogen 0.2 0.1 - 1.0 04/07/2016 [facility] URINE AND STOOL UA Bili Negative *NA* (04/07/16 7:09 AM) Negative 04/07/2016 [facility] URINE AND STOOL UA Nitrite Positive *ABN* (04/07/16 7:09 AM) Negative 04/07/2016 [facility] URINE AND STOOL UA Ketones Negative *NA* (04/07/16 7:09 AM) Negative 04/07/2016 [facility] URINE AND STOOL UA Leuk Est Large *ABN* (04/07/16 7:09 AM) Negative 04/07/2016 [facility] URINE AND STOOL UA Color Yellow *NA* (04/07/16 7:09 AM) Yellow 04/07/2016 [facility] URINE AND STOOL UA Sq Epi Occasional /LPF Few /LPF 04/07/2016 [facility] URINE AND STOOL UA WBC >100 /HPF 0 - 5 04/07/2016 [facility] URINE AND STOOL UA Bacteria Many /HPF None Seen /HPF 04/07/2016 [facility] URINE AND STOOL UA RBC 21-50 /HPF 0 - 2 04/07/2016 [facility] CARDIAC ENZYMES Troponin-I <0.02 0.00 - 0.40 04/07/2016 [facility] CARDIAC ENZYMES Total CK 91 12 - 191 04/07/2016 [facility] CHEM PANEL Lactic Acid Lvl 1.9 0.5 - 2.2 04/07/2016 [facility] HEMATOLOGY PTT 25.2 22.9 - 35.8 04/07/2016 [facility] HEMATOLOGY PT 13.6 12.0 - 14.7 04/07/2016 [facility] HEMATOLOGY INR 1.01 0.85 - 1.17 04/07/2016 [facility] HEMATOLOGY Segs-Bands # 3.2 1.5 - 8.1 04/07/2016 [facility] HEMATOLOGY Eosinophils 0.4 0.0 - 4.0 04/07/2016 [facility] HEMATOLOGY Basophils 0.3 0.0 - 1.0 04/07/2016 [facility] HEMATOLOGY Lymphocytes # 0.4 1.0 - 5.5 04/07/2016 [facility] HEMATOLOGY Lymphocytes 10.7 20.0 - 40.0 04/07/2016 [facility] HEMATOLOGY Monocytes 0.7 2.0 - 12.0 04/07/2016 [facility] HEMATOLOGY Segs 87.9 45.0 - 75.0 04/07/2016 [facility] HEMATOLOGY MPV 8.5 7.4 - 10.4 04/07/2016 [facility] HEMATOLOGY RDW 14.0 11.5 - 14.5 04/07/2016 [facility] HEMATOLOGY MCH 30.4 27.0 - 31.0 04/07/2016 [facility] HEMATOLOGY MCHC 32.4 32.0 - 36.0 04/07/2016 [facility] HEMATOLOGY MCV 93.8 80.0 - 98.0 04/07/2016 [facility] HEMATOLOGY RBC 4.00 4.20 - 5.40 04/07/2016 [facility] HEMATOLOGY Hgb 12.1 12.0 - 16.0 04/07/2016 [facility] HEMATOLOGY WBC 3.6 3.7 - 10.4 04/07/2016 [facility] HEMATOLOGY Hct 37.5 36.0 - 48.0 04/07/2016 [facility] CHEM PANEL Procalcitonin Lvl 0.35 0.00 - 0.10 04/07/2016 [facility] CHEM PANEL Alk Phos 142 39 - 136 04/07/2016 [facility] CHEM PANEL Bili Total 1.0 0.2 - 1.3 04/07/2016 [facility] CHEM PANEL Globulin 3.6 2.7 - 4.2 04/07/2016 [facility] CHEM PANEL ALT 48 0 - 65 04/07/2016 [facility] CHEM PANEL A/G Ratio 0.9 0.7 - 1.6 04/07/2016 [facility] CHEM PANEL AST 56 0 - 37 04/07/2016 [facility] CHEM PANEL Albumin Lvl 3.3 3.5 - 5.0 04/07/2016 [facility] CHEM PANEL Calcium Lvl 9.0 8.5 - 10.5 04/07/2016 [facility] CHEM PANEL AGAP 9.3 10.0 - 20.0 04/07/2016 [facility] CHEM PANEL Total Protein 6.9 6.4 - 8.4 04/07/2016 [facility] CHEM PANEL B/C Ratio 25 6 - 25 04/07/2016 [facility] CHEM PANEL CO2 24 24 - 32 04/07/2016 [facility] CHEM PANEL Chloride Lvl 110 95 - 109 04/07/2016 [facility] CHEM PANEL Sodium Lvl 139 135 - 145 04/07/2016 [facility] CHEM PANEL Potassium Lvl 4.3 3.5 - 5.1 04/07/2016 [facility] CHEM PANEL BUN 45 7 - 22 04/07/2016 [facility] CHEM PANEL Glucose Lvl 117 70 - 99 04/07/2016 [facility] CHEM PANEL Calcium Lvl 9.7 8.5 - 10.5 04/06/2016 [facility] CHEM PANEL eGFR 26 04/06/2016 Result Comment: The eGFR is calculated [...] should be multiplied by the estimated BMI. [facility] CHEM PANEL Glucose Lvl 189 70 - 99 04/06/2016 [facility] CHEM PANEL Creatinine Lvl 1.77 0.50 - 1.40 04/06/2016 [facility] CHEM PANEL BUN 47 7 - 22 04/06/2016 [facility] CHEM PANEL AGAP 15.1 10.0 - 20.0 04/06/2016 [facility] CHEM PANEL Chloride Lvl 112 95 - 109 04/06/2016 [facility] CHEM PANEL Potassium Lvl 5.1 3.5 - 5.1 04/06/2016 [facility] CHEM PANEL CO2 18 24 - 32 04/06/2016 [facility] CHEM PANEL Sodium Lvl 140 135 - 145 04/06/2016 [facility] CARDIAC ENZYMES Total CK 103 12 - 191 04/06/2016 [facility] CARDIAC ENZYMES CK MB 1.2 0.5 - 3.6 04/06/2016 [facility] CARDIAC ENZYMES Troponin-I <0.02 0.00 - 0.40 04/06/2016 [facility] CARDIAC ENZYMES CK MB Index 1.2 0.0 - 2.5 04/06/2016 [facility] CHEM PANEL eGFR 26 04/06/2016 Result Comment: The eGFR is calculated [...] should be multiplied by the estimated BMI. [facility] CHEM PANEL Glucose Lvl 122 70 - 99 04/06/2016 [facility] CHEM PANEL AST 37 0 - 37 04/06/2016 [facility] CHEM PANEL Albumin Lvl 3.6 3.5 - 5.0 04/06/2016 [facility] CHEM PANEL ALT 31 0 - 65 04/06/2016 [facility] CHEM PANEL Calcium Lvl 9.4 8.5 - 10.5 04/06/2016 [facility] CHEM PANEL Total Protein 7.5 6.4 - 8.4 04/06/2016 [facility] CHEM PANEL CO2 18 24 - 32 04/06/2016 [facility] CHEM PANEL Creatinine Lvl 1.80 0.50 - 1.40 04/06/2016 [facility] CHEM PANEL Chloride Lvl 111 95 - 109 04/06/2016 [facility] CHEM PANEL Sodium Lvl 139 135 - 145 04/06/2016 [facility] CHEM PANEL Potassium Lvl 5.8 3.5 - 5.1 04/06/2016 Result Comment: Specimen is moderately h emolyzed. 04/06/2016 14:35 PERRY [facility] CHEM PANEL BUN 50 7 - 22 04/06/2016 [facility] CHEM PANEL B/C Ratio 28 6 - 25 04/06/2016 [facility] CHEM PANEL Globulin 3.9 2.7 - 4.2 04/06/2016 [facility] CHEM PANEL A/G Ratio 0.9 0.7 - 1.6 04/06/2016 [facility] CHEM PANEL Bili Total 0.6 0.2 - 1.3 04/06/2016 [facility] CHEM PANEL AGAP 15.8 10.0 - 20.0 04/06/2016 [facility] CHEM PANEL Alk Phos 136 39 - 136 04/06/2016 [facility] HEMATOLOGY PTT See N ote 1 (04/06/16 2:21 PM) 22.9 - 35.8 04/06/2016 Result Comment: The PTT result of 19.4 should be interpreted with caution due to : CLOTTED SAMPLE. Report and correction called to Glenroy Fonseca by Yehuda Smiley at 04/06/2016 14:56. Recollection is recommended. Read Back Ok. [facility] WBC 20.1 3.7 - 10.4 04/06/2016 [facility] MCV 94.9 80.0 - 98.0 04/06/2016 [facility] MCH 30.9 27.0 - 31.0 04/06/2016 [facility] MCHC 32.6 32.0 - 36.0 04/06/2016 [facility] RBC 4.29 4.20 - 5.40 04/06/2016 [facility] Hgb 13.3 12.0 - 16.0 04/06/2016 [facility] Hct 40.7 36.0 - 48.0 04/06/2016 [facility] RDW 14.5 11.5 - 14.5 04/06/2016 [facility] Platelet 293 133 - 450 04/06/2016 [facility] MPV 9.1 7.4 - 10.4 04/06/2016 [facility] HEMATOLOGY Eosinophils 0.9 0.0 - 4.0 04/06/2016 [facility] Monocytes 7.7 2.0 - 12.0 04/06/2016 [facility] Basophils # 0.1 0.0 - 0.2 04/06/2016 [facility] HEMATOLOGY Eosinophils # 0.2 0.0 - 0.5 04/06/2016 [facility] Monocytes # 1.5 0.0 - 0.8 04/06/2016 [facility] Lymphocytes # 2.1 1.0 - 5.5 04/06/2016 [facility] Basophils 0.4 0.0 - 1.0 04/06/2016 [facility] Segs-Bands # 16.2 1.5 - 8.1 04/06/2016 [facility] Lymphocytes 10.4 20.0 - 40.0 04/06/2016 [facility] Plt Morph Jenny l (04/06/16 2:21 PM) 04/06/2016 [facility] RBC Morph Jenny l (04/06/16 2:21 PM) 04/06/2016 [facility] Segs 80.6 45.0 - 75.0 04/06/2016 [facility] URINE AND STOOL UA Color Ltyellow 10/01/2015 [facility] URINE AND STOOL UA Urobilinogen <=1.0 mg/dL 0.1 - 1.0 10/01/2015 [facility] URINE AND STOOL UA RBC 7 0 - 2 10/01/2015 [facility] URINE AND STOOL UA Blood Small *ABN* (10/01/15 9:38 AM) Negative 10/01/2015 [facility] URINE AND STOOL UA Nitrite Negative (10/01/15 9:38 AM) Negative 10/01/2015 [facility] URINE AND STOOL UA Leuk Est Moderate *ABN* (10/01/15 9:38 AM) Negative 10/01/2015 [facility] URINE AND STOOL UA Sq Epi Occasional /LPF Few /LPF 10/01/2015 [facility] URINE AND STOOL UA WBC 18 0 - 5 10/01/2015 [facility] URINE AND STOOL UA Protein Negative mg/dL Negative mg/dL 10/01/2015 [facility] URINE AND STOOL UA Glucose 500 mg/dL Negative mg/dL 10/01/2015 [facility] URINE AND STOOL UA Bili Negative *NA* (10/01/15 9:38 AM) Negative 10/01/2015 [facility] URINE AND STOOL UA Ketones Negative mg/dL Negative mg/dL 10/01/2015 [facility] URINE AND STOOL UA Turbidity Clear (10/01/15 9:38 AM) Clear 10/01/2015 [facility] URINE AND STOOL UA pH 5.0 5.0 - 8.0 10/01/2015 [facility] URINE AND STOOL UA Spec Grav 1.014 <=1.030 10/01/2015 [facility] URINE AND STOOL UA Bacteria Occasional /HPF None Seen /HPF 10/01/2015 [facility] CARDIAC ENZYMES Troponin-I <0.02 0.00 - 0.40 10/01/2015 [facility] CARDIAC ENZYMES Total CK 51 12 - 191 10/01/2015 [facility] CARDIAC ENZYMES CK MB 0.8 0.5 - 3.6 10/01/2015 [facility] CARDIAC ENZYMES CK MB Index 1.6 0.0 - 2.5 10/01/2015 [facility] CHEM PANEL A/G Ratio 0.9 0.7 - 1.6 10/01/2015 [facility] CHEM PANEL Globulin 3.5 2.0 - 4.0 10/01/2015 [facility] CHEM PANEL eGFR 47 10/01/2015 Result Comment: The eGFR is calculated [...] should be multiplied by the estimated BMI. [facility] CHEM PANEL CO2 25 24 - 32 10/01/2015 [facility] CHEM PANEL Chloride Lvl 108 95 - 109 10/01/2015 [facility] CHEM PANEL Sodium Lvl 141 135 - 145 10/01/2015 [facility] CHEM PANEL Potassium Lvl 4.0 3.5 - 5.1 10/01/2015 [facility] CHEM PANEL AST 29 0 - 37 10/01/2015 [facility] CHEM PANEL AGAP 12.0 10.0 - 20.0 10/01/2015 [facility] CHEM PANEL B/C Ratio 22 6 - 25 10/01/2015 [facility] CHEM PANEL Alk Phos 151 39 - 136 10/01/2015 [facility] CHEM PANEL Bili Total 0.5 0.2 - 1.3 10/01/2015 [facility] CHEM PANEL Albumin Lvl 3.3 3.5 - 5.0 10/01/2015 [facility] CHEM PANEL Total Protein 6.8 6.4 - 8.4 10/01/2015 [facility] CHEM PANEL ALT 38 0 - 65 10/01/2015 [facility] CHEM PANEL BUN 24 7 - 22 10/01/2015 [facility] CHEM PANEL Creatinine Lvl 1.10 0.50 - 1.40 10/01/2015 [facility] CHEM PANEL Glucose Lvl 120 70 - 99 10/01/2015 [facility] CHEM PANEL Calcium Lvl 9.3 8.5 - 10.5 10/01/2015 [facility] HEMATOLOGY MCV 91.7 80.0 - 98.0 10/01/2015 [facility] HEMATOLOGY MCH 29.9 27.0 - 31.0 10/01/2015 [facility] HEMATOLOGY Hct 40.1 36.0 - 48.0 10/01/2015 [facility] HEMATOLOGY RDW 15.0 11.5 - 14.5 10/01/2015 [facility] HEMATOLOGY Platelet 288 133 - 450 10/01/2015 [facility] MCHC 32.7 32.0 - 36.0 10/01/2015 [facility] MPV 7.9 7.4 - 10.4 10/01/2015 [facility] RBC 4.37 4.20 - 5.40 10/01/2015 [facility] WBC 7.5 3.7 - 10.4 10/01/2015 [facility] HEMATOLOGY Hgb 13.1 12.0 - 16.0 10/01/2015 [facility] HEMATOLOGY Basophils # 0.1 0.0 - 0.2 10/01/2015 [facility] HEMATOLOGY Monocytes 7.1 2.0 - 12.0 10/01/2015 [facility] HEMATOLOGY Lymphocytes 28.3 20.0 - 40.0 10/01/2015 [facility] HEMATOLOGY Basophils 0.7 0.0 - 1.0 10/01/2015 [facility] HEMATOLOGY Eosinophils 3.6 0.0 - 4.0 10/01/2015 [facility] HEMATOLOGY Segs 60.3 45.0 - 75.0 10/01/2015 [facility] Lymphocytes # 2.1 1.0 - 5.5 10/01/2015 [facility] HEMATOLOGY Eosinophils # 0.3 0.0 - 0.5 10/01/2015 [facility] HEMATOLOGY Segs-Bands # 4.5 1.5 - 8.1 10/01/2015 [facility] [facility] # 0.5 0.0 - 0.8 10/01/2015 [facility] URINE AND STOOL UA Sq Epi Occasional /LPF Few /LPF 09/22/2015 [facility] URINE AND STOOL UA WBC 9 0 - 5 09/22/2015 [facility] URINE AND STOOL UA RBC 35 0 - 2 09/22/2015 [facility] URINE AND STOOL UA Nitrite Negative (09/22/15 9:21 AM) Negative 09/22/2015 [facility] URINE AND STOOL UA Leuk Est Small *ABN* (09/22/15 9:21 AM) Negative 09/22/2015 [facility] URINE AND STOOL UA Blood Moderate *ABN* (09/22/15 9:21 AM) Negative 09/22/2015 [facility] URINE AND STOOL UA Urobilinogen <=1.0 mg/dL 0.1 - 1.0 09/22/2015 [facility] URINE AND STOOL UA Bili Negative *NA* (09/22/15 9:21 AM) Negative 09/22/2015 [facility] URINE AND STOOL UA Ketones Negative mg/dL Negative mg/dL 09/22/2015 [facility] URINE AND STOOL UA Protein Negative mg/dL Negative mg/dL 09/22/[address] [facility] URINE AND STOOL UA pH 5.0 5.0 - 8.0 09/22/2015 [facility] URINE AND STOOL UA Glucose 500 mg/dL Negative mg/dL 09/22/2015 [facility] URINE AND STOOL UA Turbidity Slight *ABN* (09/22/15 9:21 AM) Clear 09/22/2015 [facility] URINE AND STOOL UA Spec Grav 1.018 <=1.030 09/22/2015 [facility] URINE AND STOOL UA Color Yellow *NA* (09/22/15 9:21 AM) Yellow 09/22/2015 [facility] CHEM PANEL Phosphorus 2.5 2.5 - 4.5 09/22/2015 [facility] CHEM PANEL Magnesium Lvl 2.3 1.8 - 2.4 09/22/2015 [facility] CHEM PANEL Alk Phos 122 39 - 136 09/22/2015 [facility] CHEM PANEL Sodium Lvl 137 135 - 145 09/22/2015 [facility] CHEM PANEL Potassium Lvl 4.7 3.5 - 5.1 09/22/2015 [facility] CHEM PANEL Calcium Lvl 8.6 8.5 - 10.5 09/22/2015 [facility] CHEM PANEL CO2 25 24 - 32 09/22/2015 [facility] CHEM PANEL Albumin Lvl 3.1 3.5 - 5.0 09/22/2015 [facility] CHEM PANEL Total Protein 6.4 6.4 - 8.4 09/22/2015 [facility] CHEM PANEL AST 32 0 - 37 09/22/2015 [facility] CHEM PANEL ALT 44 0 - 65 09/22/2015 [facility] CHEM PANEL Glucose Lvl 195 70 - 99 09/22/2015 [facility] CHEM PANEL Creatinine Lvl 1.31 0.50 - 1.40 09/22/2015 [facility] CHEM PANEL Chloride Lvl 108 95 - 109 09/22/2015 [facility] CHEM PANEL BUN 41 7 - 22 09/22/2015 [facility] CHEM PANEL eGFR 38 09/22/2015 Result Comment: The eGFR is calculated [...] should be multiplied by the estimated BMI. [facility] CHEM PANEL Bili Total 0.6 0.2 - 1.3 09/22/2015 [facility] CHEM PANEL Globulin 3.3 2.0 - 4.0 09/22/2015 [facility] CHEM PANEL A/G Ratio 0.9 0.7 - 1.6 09/22/2015 [facility] CHEM PANEL AGAP 8.7 10.0 - 20.0 09/22/2015 [facility] CHEM PANEL B/C Ratio 31 6 - 25 09/22/2015 [facility] Monocytes # 0.4 0.0 - 0.8 09/22/2015 [facility] Monocytes 4.0 2.0 - 12.0 09/22/2015 [facility] HEMATOLOGY Basophils 0.3 0.0 - 1.0 09/22/2015 [facility] Eosinophils 0.2 0.0 - 4.0 09/22/2015 [facility] Segs-Bands # 8.2 1.5 - 8.1 09/22/2015 [facility] Lymphocytes # 0.5 1.0 - 5.5 09/22/2015 [facility] Lymphocytes 5.8 20.0 - 40.0 09/22/2015 [facility] HEMATOLOGY Segs 89.7 45.0 - 75.0 09/22/2015 [facility] HEMATOLOGY PTT 32.2 22.9 - 35.8 09/22/2015 [facility] HEMATOLOGY PT 14.6 12.0 - 14.7 09/22/2015 [facility] INR 1.11 0.85 - 1.17 09/22/2015 [facility] Platelet 211 133 - 450 09/22/2015 [facility] MPV 8.5 7.4 - 10.4 09/22/2015 [facility] MCHC 32.8 32.0 - 36.0 09/22/2015 [facility] HEMATOLOGY RDW 14.8 11.5 - 14.5 09/22/2015 [facility] HEMATOLOGY RBC 4.80 4.20 - 5.40 09/22/2015 [facility] Hgb 14.4 12.0 - 16.0 09/22/2015 [facility] WBC 9.1 3.7 - 10.4 09/22/2015 [facility] HEMATOLOGY MCV 91.7 80.0 - 98.0 09/22/2015 [facility] MCH 30.0 27.0 - 31.0 09/22/2015 [facility] Hct 44.0 36.0 - 48.0 09/22/2015 [facility] CHEM PANEL eGFR 30 05/02/2015 Result Comment: The eGFR is calculated [...] should be multiplied by the estimated BMI. [facility] CHEM PANEL Bili Total 0.5 0.2 - 1.3 05/02/2015 [facility] CHEM PANEL Alk Phos 122 39 - 136 05/02/2015 [facility] CHEM PANEL A/G Ratio 0.9 0.7 - 1.6 05/02/2015 [facility] CHEM PANEL ALT 39 0 - 65 05/02/2015 [facility] CHEM PANEL AST 39 0 - 37 05/02/2015 [facility] CHEM PANEL Globulin 3.6 2.0 - 4.0 05/02/2015 [facility] CHEM PANEL Albumin Lvl 3.4 3.5 - 5.0 05/02/2015 [facility] CHEM PANEL Total Protein 7.0 6.4 - 8.4 05/02/2015 [facility] CHEM PANEL B/C Ratio 31 6 - 25 05/02/2015 [facility] CHEM PANEL AGAP 11.9 10.0 - 20.0 05/02/2015 [facility] CHEM PANEL CO2 21 24 - 32 05/02/2015 [facility] CHEM PANEL Creatinine Lvl 1.6 0.5 - 1.4 05/02/2015 [facility] CHEM PANEL BUN 49 7 - 22 05/02/2015 [facility] CHEM PANEL Glucose Lvl 98 70 - 99 05/02/2015 [facility] CHEM PANEL Sodium Lvl 141 135 - 145 05/02/2015 [facility] CHEM PANEL Chloride Lvl 114 95 - 109 05/02/2015 [facility] CHEM PANEL Calcium Lvl 9.2 8.5 - 10.5 05/02/2015 [facility] CHEM PANEL Potassium Lvl 5.9 3.5 - 5.1 05/02/2015 Result Comment: Slight hemolysis present. [facility] HEMATOLOGY Eosinophils # 0.2 0.0 - 0.5 05/02/2015 [facility] HEMATOLOGY Basophils # 0.1 0.0 - 0.2 05/02/2015 [facility] HEMATOLOGY Lymphocytes # 2.4 1.0 - 5.5 05/02/2015 [facility] HEMATOLOGY Monocytes # 0.6 0.0 - 0.8 05/02/2015 [facility] HEMATOLOGY Segs 59.8 45.0 - 75.0 05/02/2015 [facility] HEMATOLOGY Lymphocytes 30.2 20.0 - 40.0 05/02/2015 [facility] HEMATOLOGY Monocytes 7.1 2.0 - 12.0 05/02/2015 [facility] HEMATOLOGY Eosinophils 2.0 0.0 - 4.0 05/02/2015 [facility] HEMATOLOGY Basophils 0.9 0.0 - 1.0 05/02/2015 [facility] HEMATOLOGY Segs-Bands # 4.8 1.5 - 8.1 05/02/2015 [facility] HEMATOLOGY MPV 8.6 7.4 - 10.4 05/02/2015 [facility] HEMATOLOGY MCV 96.6 80.0 - 98.0 05/02/2015 [facility] HEMATOLOGY Hgb 13.4 12.0 - 16.0 05/02/2015 [facility] HEMATOLOGY RBC 4.36 4.20 - 5.40 05/02/2015 [facility] HEMATOLOGY WBC 8.0 3.7 - 10.4 05/02/2015 [facility] HEMATOLOGY MCHC 31.9 32.0 - 36.0 05/02/2015 [facility] HEMATOLOGY RDW 15.3 11.5 - 14.5 05/02/2015 [facility] HEMATOLOGY Hct 42.1 36.0 - 48.0 05/02/2015 [facility] HEMATOLOGY Platelet 230 133 - 450 05/02/2015 [facility] HEMATOLOGY MCH 30.8 27.0 - 31.0 05/02/2015 [facility] HEMATOLOGY INR 1.02 0.85 - 1.17 05/02/2015 [facility] HEMATOLOGY PTT 34.8 22.9 - 35.8 05/02/2015 [facility] HEMATOLOGY PT 13.7 12.0 - 14.7 05/02/2015 [facility] ELECTROLYTES AGAP 13.3 10.0 - 20.0 02/28/2015 [facility] ELECTROLYTES Sodium Lvl 141 135 - 145 02/28/2015 [facility] ELECTROLYTES BUN 32 7 - 22 02/28/2015 [facility] ELECTROLYTES Creatinine Lvl 1.2 0.5 - 1.4 02/28/2015 [facility] ELECTROLYTES Glucose Lvl 201 70 - 99 02/28/2015 [facility] ELECTROLYTES Potassium Lvl 4.3 3.5 - 5.1 02/28/2015 [facility] ELECTROLYTES CO2 23 24 - 32 02/28/2015 [facility] ELECTROLYTES Calcium Lvl 9.4 8.5 - 10.5 02/28/2015 [facility] ELECTROLYTES Chloride Lvl 109 95 - 109 02/28/2015 [facility] ELECTROLYTES eGFR 42 02/28/2015 Result Comment: The eGFR is calculated [...] should be multiplied by the estimated BMI. [facility] Lymphocytes # 1.2 1.0 - 5.5 02/28/2015 [facility] HEMATOLOGY Monocytes # 0.6 0.0 - 0.8 02/28/2015 [facility] HEMATOLOGY Basophils 0.1 0.0 - 1.0 02/28/2015 [facility] HEMATOLOGY Monocytes 4.7 2.0 - 12.0 02/28/2015 [facility] HEMATOLOGY Segs-Bands # 11.8 1.5 - 8.1 02/28/2015 [facility] HEMATOLOGY Segs 86.7 45.0 - 75.0 02/28/2015 [facility] HEMATOLOGY Lymphocytes 8.5 20.0 - 40.0 02/28/2015 [facility] HEMATOLOGY MCHC 33.0 32.0 - 36.0 02/28/2015 [facility] HEMATOLOGY MCH 31.0 27.0 - 31.0 02/28/2015 [facility] HEMATOLOGY MPV 8.3 7.4 - 10.4 02/28/2015 [facility] HEMATOLOGY Platelet 246 133 - 450 02/28/2015 [facility] HEMATOLOGY RDW 14.3 11.5 - 14.5 02/28/2015 [facility] HEMATOLOGY Hct 39.5 36.0 - 48.0 02/28/2015 [facility] HEMATOLOGY Hgb 13.0 12.0 - 16.0 02/28/2015 [facility] HEMATOLOGY RBC 4.19 4.20 - 5.40 02/28/2015 [facility] HEMATOLOGY MCV 94.2 80.0 - 98.0 02/28/2015 [facility] HEMATOLOGY WBC 13.6 3.7 - 10.4 02/28/2015 [facility] CARDIAC ENZYMES Total CK 135 12 - 191 02/28/2015 [facility] CARDIAC ENZYMES Troponin-I <0.02 0.00 - 0.40 02/28/2015 [facility] CARDIAC ENZYMES CK MB 1.7 0.5 - 3.6 02/28/2015 [facility] CARDIAC ENZYMES CK MB Index 1.3 0.0 - 2.5 02/28/2015 [facility] CARDIAC ENZYMES Total CK 143 12 - 191 02/27/2015 [facility] CARDIAC ENZYMES CK MB 1.6 0.5 - 3.6 02/27/2015 [facility] CARDIAC ENZYMES Troponin-I <0.02 0.00 - 0.40 02/27/2015 [facility] CARDIAC ENZYMES CK MB Index 1.1 0.0 - 2.5 02/27/2015 [facility] CARDIAC ENZYMES Troponin-I <0.02 0.00 - 0.40 02/27/2015 [facility] CARDIAC ENZYMES Total CK 96 12 - 191 02/27/2015 [facility] CARDIAC ENZYMES CK MB 1.5 0.5 - 3.6 02/27/2015 [facility] CARDIAC ENZYMES CK MB Index 1.6 0.0 - 2.5 02/27/2015 [facility] CARDIAC ENZYMES BNP 46 <=100 pg/mL 02/27/2015 [facility] CHEM PANEL Calcium Lvl 9.0 8.5 - 10.5 02/27/2015 [facility] CHEM PANEL Sodium Lvl 143 135 - 145 02/27/2015 [facility] CHEM PANEL Chloride Lvl 111 95 - 109 02/27/2015 [facility] CHEM PANEL Potassium Lvl 4.1 3.5 - 5.1 02/27/2015 [facility] CHEM PANEL eGFR 39 02/27/2015 Result Comment: The eGFR is calculated [...] should be multiplied by the estimated BMI. [facility] CHEM PANEL Creatinine Lvl 1.3 0.5 - 1.4 02/27/2015 [facility] CHEM PANEL CO2 22 24 - 32 02/27/2015 [facility] CHEM PANEL Glucose Lvl 178 70 - 99 02/27/2015 [facility] CHEM PANEL BUN 34 7 - 22 02/27/2015 [facility] CHEM PANEL A/G Ratio 1.0 0.7 - 1.6 02/27/2015 [facility] CHEM PANEL Bili Total 0.3 0.2 - 1.3 02/27/2015 [facility] CHEM PANEL AGAP 14.1 10.0 - 20.0 02/27/2015 [facility] CHEM PANEL B/C Ratio 26 6 - 25 02/27/2015 [facility] CHEM PANEL Globulin 3.6 2.0 - 4.0 02/27/2015 [facility] CHEM PANEL AST 37 0 - 37 02/27/2015 [facility] CHEM PANEL Alk Phos 190 39 - 136 02/27/2015 [facility] CHEM PANEL Total Protein 7.2 6.4 - 8.4 02/27/2015 [facility] CHEM PANEL Albumin Lvl 3.6 3.5 - 5.0 02/27/2015 [facility] CHEM PANEL ALT 38 0 - 65 02/27/2015 [facility] HEMATOLOGY Eosinophils # 0.2 0.0 - 0.5 02/27/2015 [facility] HEMATOLOGY Basophils # 0.1 0.0 - 0.2 02/27/2015 [facility] HEMATOLOGY Segs-Bands # 6.3 1.5 - 8.1 02/27/2015 [facility] HEMATOLOGY Basophils 0.9 0.0 - 1.0 02/27/2015 [facility] HEMATOLOGY Monocytes # 0.8 0.0 - 0.8 02/27/2015 [facility] HEMATOLOGY Lymphocytes # 2.3 1.0 - 5.5 02/27/2015 [facility] HEMATOLOGY Lymphocytes 23.8 20.0 - 40.0 02/27/2015 [facility] HEMATOLOGY Monocytes 7.9 2.0 - 12.0 02/27/2015 [facility] HEMATOLOGY Eosinophils 2.1 0.0 - 4.0 02/27/2015 [facility] HEMATOLOGY Segs 65.3 45.0 - 75.0 02/27/2015 [facility] HEMATOLOGY WBC 9.6 3.7 - 10.4 02/27/2015 [facility] HEMATOLOGY RBC 4.68 4.20 - 5.40 02/27/2015 [facility] HEMATOLOGY MPV 8.2 7.4 - 10.4 02/27/2015 [facility] HEMATOLOGY Platelet 289 133 - 450 02/27/2015 [facility] HEMATOLOGY MCV 93.8 80.0 - 98.0 02/27/2015 [facility] HEMATOLOGY Hgb 14.7 12.0 - 16.0 02/27/2015 [facility] HEMATOLOGY Hct 43.9 36.0 - 48.0 02/27/2015 [facility] HEMATOLOGY MCHC 33.5 32.0 - 36.0 02/27/2015 [facility] HEMATOLOGY RDW 14.2 11.5 - 14.5 02/27/2015 [facility] HEMATOLOGY MCH 31.4 27.0 - 31.0 02/27/2015 [facility] HEMATOLOGY PTT 38.0 22.9 - 35.8 02/27/2015 [facility] HEMATOLOGY INR 0.94 0.85 - 1.17 02/27/2015 [facility] HEMATOLOGY PT 12.5 12.0 - 14.7 02/27/2015 [facility] CARDIAC ENZYMES CK MB Index 0.8 0.0 - 2.5 10/10/2014 [facility] CARDIAC ENZYMES Total CK 108 12 - 191 10/10/2014 [facility] CARDIAC ENZYMES CK MB 0.9 0.5 - 3.6 10/10/2014 [facility] CARDIAC ENZYMES Troponin-I <0.02 0.00 - 0.40 10/10/2014 [facility] CARDIAC ENZYMES BNP 61 <=100 pg/mL 10/10/2014 <sup>3</sup>Interpretive Data: Elevated results are in line with increasing severity of
congestive heart failure. Minor elevations between 100 and 300
may be seen with Myocardial Ischemia, Sodium retaining drugs,
and compensated/treated heart failure. [facility] ELECTROLYTES Chloride Lvl 108 95 - 109 10/10/2014 [facility] ELECTROLYTES Sodium Lvl 140 135 - 145 10/10/2014 [facility] ELECTROLYTES Potassium Lvl 4.6 3.5 - 5.1 10/10/2014 [facility] ELECTROLYTES Globulin 4.1 2.0 - 4.0 10/10/2014 [facility] ELECTROLYTES A/G Ratio 0.8 0.7 - 1.6 10/10/2014 [facility] ELECTROLYTES eGFR 47 10/10/2014 <sup>1</sup>Result Comment: The eGFR is calculated using the CKD-EPI formula. In most young, healthy individuals the eGFR will be >90 mL/min/1.73m2. The eGFR declines with age. An eGFR of 60-89 may be normal in some populations, particularly the elderly, for whom the CKD-EPI formula has not been extensively validated. Use of the eGFR is not recommended in the following populations:& lt;br/>
Individuals with unstable creatinine concentrations, including patients [...] should be multiplied by the estimated BMI. [facility] ELECTROLYTES Calcium Lvl 8.7 8.5 - 10.5 10/10/2014 [facility] ELECTROLYTES Total Protein 7.4 6.4 - 8.4 10/10/2014 [facility] ELECTROLYTES AST 44 0 - 37 10/10/2014 [facility] ELECTROLYTES Albumin Lvl 3.3 3.5 - 5.0 10/10/2014 [facility] ELECTROLYTES ALT 31 0 - 65 10/10/2014 [facility] ELECTROLYTES Creatinine Lvl 1.1 0.5 - 1.4 10/10/2014 [facility] ELECTROLYTES BUN 17 7 - 22 10/10/2014 [facility] ELECTROLYTES CO2 25 24 - 32 10/10/2014 [facility] ELECTROLYTES Glucose Lvl 134 70 - 99 10/10/2014 <sup>2</sup>Interpretive Data: Adult ref erence range values reflect the clinical guidelines
of the [place] [employer]. [facility] ELECTROLYTES Alk Phos 143 39 - 136 10/10/2014 [facility] ELECTROLYTES Bili Total 0.6 0.2 - 1.3 10/10/2014 [facility] ELECTROLYTES AGAP 11.6 10.0 - 20.0 10/10/2014 [facility] ELECTROLYTES B/C Ratio 15 6 - 25 10/10/2014 [facility] HEMATOLOGY Basophils # 0.1 0.0 - 0.2 10/10/2014 [facility] HEMATOLOGY Eosinophils # 0.2 0.0 - 0.5 10/10/2014 [facility] HEMATOLOGY Monocytes # 0.5 0.0 - 0.8 10/10/2014 [facility] HEMATOLOGY Segs-Bands # 4.5 1.5 - 8.1 10/10/2014 [facility] HEMATOLOGY Lymphocytes # 2.2 1.0 - 5.5 10/10/2014 [facility] HEMATOLOGY Basophils 0.9 0.0 - 1.0 10/10/2014 [facility] HEMATOLOGY Monocytes 6.4 2.0 - 12.0 10/10/2014 [facility] HEMATOLOGY Eosinophils 2.0 0.0 - 4.0 10/10/2014 [facility] HEMATOLOGY Segs 61.1 45.0 - 75.0 10/10/2014 [facility] HEMATOLOGY Lymphocytes 29.6 20.0 - 40.0 10/10/2014 [facility] HEMATOLOGY PT 12.7 12.0 - 14.7 10/10/2014 [facility] HEMATOLOGY PTT 36.4 22.9 - 35.8 10/10/2014 <sup>5</sup>Interpretive Data: Heparin T herapeutic Range: 57 - 92 Seconds [facility] INR 0.95 0.85 - 1.17 10/10/2014 <sup>4</sup>Interpretive Data: RECOMMEND ED RANGES FOR PROTIME INR:
2.0- 3.0 for most medical and surgical thromboembolic states.
2.5-3.5 for artificial heart valves and recurrent embolism.

INR SHOULD BE USED ONLY FOR PATIENTS ON STABLE ANTICOAGULANT THERAPY. [facility] MCH 30.9 27.0 - 31.0 10/10/2014 [facility] MCHC 32.7 32.0 - 36.0 10/10/2014 [facility] RDW 14.1 11.5 - 14.5 10/10/2014 [facility] Platelet 249 133 - 450 10/10/2014 [facility] MPV 8.4 7.4 - 10.4 10/10/2014 [facility] Hgb 14.5 12.0 - 16.0 10/10/2014 [facility] Hct 44.4 36.0 - 48.0 10/10/2014 [facility] WBC 7.4 3.7 - 10.4 10/10/2014 [facility] RBC 4.70 4.20 - 5.40 10/10/2014 [facility] MCV 94.4 80.0 - 98.0 10/10/2014 [facility] CARDIAC ENZYMES CK MB Index 1.3 0.0 - 2.5 05/16/2014 [facility] CARDIAC ENZYMES Troponin-I <0.02 0.00 - 0.40 05/16/2014 [facility] CARDIAC ENZYMES CK MB 1.4 0.5 - 3.6 05/16/2014 [facility] CARDIAC ENZYMES Total CK 104 12 - 191 05/16/2014 [facility] CHEM PANEL eGFR 48 05/16/2014 <sup>1</sup>Result Comment: The eGFR is calculated using the CKD-EPI formula. In most young, healthy individuals the eGFR will be >90 mL/min/1.73m2. The eGFR declines with age. An eGFR of 60-89 may be normal in some populations, particularly the elderly, for whom the CKD-EPI formula has not been extensively validated. Use of the eGFR is not recommended in the following populations:& lt;br/>
Individuals with unstable creatinine concentrations, including patients [...] estimated BMI. [facility] CHEM PANEL Glucose Lvl 173 70 - 99 05/16/2014 <sup>2</sup>Interpretive Data: Adult ref erence range values reflect the clinical guidelines
of the [place] [employer]. [facility] CHEM PANEL Sodium Lvl 142 135 - 145 05/16/2014 [facility] CHEM PANEL Chloride Lvl 109 95 - 109 05/16/2014 [facility] CHEM PANEL Potassium Lvl 4.3 3.5 - 5.1 05/16/2014 [facility] CHEM PANEL Creatinine Lvl 1.1 0.5 - 1.4 05/16/2014 [facility] CHEM PANEL BUN 30 7 - 22 05/16/2014 [facility] CHEM PANEL Albumin Lvl 3.5 3.5 - 5.0 05/16/2014 [facility] CHEM PANEL Calcium Lvl 9.0 8.5 - 10.5 05/16/2014 [facility] CHEM PANEL CO2 24 24 - 32 05/16/2014 [facility] CHEM PANEL B/C Ratio 27 6 - 25 05/16/2014 [facility] CHEM PANEL AGAP 13.3 10.0 - 20.0 05/16/2014 [facility] CHEM PANEL Globulin 3.7 2.0 - 4.0 05/16/2014 [facility] CHEM PANEL A/G Ratio 0.9 0.7 - 1.6 05/16/2014 [facility] CHEM PANEL ALT 48 0 - 65 05/16/2014 [facility] CHEM PANEL Total Protein 7.2 6.4 - 8.4 05/16/2014 [facility] CHEM PANEL Alk Phos 164 39 - 136 05/16/2014 [facility] CHEM PANEL AST 36 0 - 37 05/16/2014 [facility] CHEM PANEL Bili Total 0.5 0.2 - 1.3 05/16/2014 [facility] HEMATOLOGY Segs-Bands # 9.8 1.5 - 8.1 05/16/2014 [facility] HEMATOLOGY Lymphocytes # 2.5 1.0 - 5.5 05/16/2014 [facility] HEMATOLOGY Eosinophils # 0.2 0.0 - 0.5 05/16/2014 [facility] HEMATOLOGY Basophils # 0.1 0.0 - 0.2 05/16/2014 [facility] Monocytes # 0.8 0.0 - 0.8 05/16/2014 [facility] Monocytes 6.1 2.0 - 12.0 05/16/2014 [facility] Eosinophils 1.1 0.0 - 4.0 05/16/2014 [facility] Basophils 0.8 0.0 - 1.0 05/16/2014 [facility] Segs 73.3 45.0 - 75.0 05/16/2014 [facility] Lymphocytes 18.7 20.0 - 40.0 05/16/2014 [facility] D-Dimer 0.46 05/16/2014 <sup>4</sup>Interpretive Data: In DIC, quantitative D-Dimer is generally greater than
0.66 ug/mL FEU. Values of quantitative D-Dimer less than
0.40 ug/mL FEU have been reported to be associated with a low
probability of deep vein thrombosis/pulmonary embolism.
This test alone should not be used to rule out DVT/PE. [facility] PTT 35.5 22.9 - 35.8 05/16/2014 <sup>5</sup>Interpretive Data: Heparin T herapeutic Range: 57 - 92 Seconds [facility] PT 12.8 12.0 - 14.7 05/16/2014 [facility] INR 0.96 0.85 - 1.17 05/16/2014 <sup>3</sup>Interpretive Data: RECOMMEND ED RANGES FOR PROTIME INR:
2.0- 3.0 for most medical and surgical thromboembolic states.
2.5-3.5 for artificial heart valves and recurrent embolism.

INR SHOULD BE USED ONLY FOR PATIENTS ON STABLE ANTICOAGULANT THERAPY. [facility] RDW 14.1 11.5 - 14.5 05/16/2014 [facility] MPV 8.1 7.4 - 10.4 05/16/2014 [facility] Platelet 344 133 - 450 05/16/2014 [facility] MCV 94.2 80.0 - 98.0 05/16/2014 [facility] MCH 30.6 27.0 - 31.0 05/16/2014 [facility] HEMATOLOGY MCHC 32.4 32.0 - 36.0 05/16/2014 [facility] HEMATOLOGY RBC 4.68 4.20 - 5.40 05/16/2014 [facility] HEMATOLOGY Hct 44.1 36.0 - 48.0 05/16/2014 [facility] HEMATOLOGY Hgb 14.3 12.0 - 16.0 05/16/2014 [facility] HEMATOLOGY WBC 13.4 3.7 - 10.4 05/16/2014 [facility] BEDSIDE GLUCOSE TESTING Comment1 Assess patient 01/09/2013 NA [facility] BEDSIDE GLUCOSE TESTING Gluc POC Lif scn >400 70 - 99 01/09/2013 CRIT <sup>1</sup>Interpretive Data: Upper Reportable Limit: 200 mg/dL. [facility] BEDSIDE GLUCOSE TESTING Comment2 Repeat test 01/09/2013 NA [facility] BEDSIDE GLUCOSE TESTING Comment3 Notify RN/MD 01/09/2013 [facility] BEDSIDE GLUCOSE TESTING Comment2 Notify RN/MD 01/09/2013 NA [facility] BEDSIDE GLUCOSE TESTING Comment1 Assess patient 01/09/2013 NA [facility] BEDSIDE GLUCOSE TESTING Gluc POC Lif scn >400 70 - 99 01/09/2013 CRIT <sup>2</sup>Interpretive Data: Upper Reportable Limit: 200 mg/dL. [facility] BEDSIDE GLUCOSE TESTING Comment1 Notify RN/MD 01/09/2013 [facility] BEDSIDE GLUCOSE TESTING Gluc POC Lif scn 310 70 - 99 01/09/2013 [facility] <sup>3</sup>Interpretive Data: Upper Reportable Limit: 200 mg/dL. [facility] CHEMISTRY Glucose Lvl 521 70 - 99 01/09/2013 CRIT <sup>6</sup>Interpretive Data: Adult ref erence range values reflect the clinical guidelines
of the [place] [employer].
<sup>7</sup>Result Comment: Critical Result(s) called to Yehuda Doll at 01/09/2013 04:26 by lt. Read back OK. [facility] CHEMISTRY AGAP 15.1 10.0 - 20.0 01/09/2013 Normal [facility] CHEMISTRY CO2 25 24 - 32 01/09/2013 Normal [facility] CHEMISTRY BUN 29 7 - 22 01/09/2013 HI [facility] CHEMISTRY Glucose Lvl 538 70 - 99 01/09/2013 CRIT <sup>8</sup>Result Comment: Critical Res ult(s) called to KasiaEliazar Sharmila at 01/09/2013 04:25 bylt. Read back OK.
<sup>9</sup>Interpretive Data: Adult reference range values reflect the clinical guidelines
of the [place] [employer]. [facility] CHEMISTRY eGFR 33 01/09/2013 NA <sup>4</sup>Result Comment: The eGFR is calculated using the CKD-EPI formula. In most young, healthy individuals the eGFR will be >90 mL/min/1.73m2. The eGFR declines with age. An eGFR of 60-89 may be normal in some populations, particularly the elderly, for whom the CKD-EPI formula has not been extensively validated. Use of the eGFR is not recommended in the following populations:& lt;br/>
Individuals with unstable creatinine concentrations, including patients [...] should be multiplied by the estimated BMI. [facility] CHEMISTRY Calcium Lvl 8.8 8.5 - 10.5 01/09/2013 Normal [facility] CHEMISTRY Chloride Lvl 102 95 - 109 01/09/2013 Normal [facility] CHEMISTRY Potassium Lvl 4.1 3.5 - 5.1 01/09/2013 Normal [facility] CHEMISTRY Sodium Lvl 138 135 - 145 01/09/2013 Normal [facility] CHEMISTRY Creatinine Lvl 1.5 0.5 - 1.4 01/09/2013 [facility] HEMATOLOGY MPV 8.7 7.4 - 10.4 01/09/2013 Normal [facility] HEMATOLOGY RBC 3.66 4.20 - 5.40 01/09/2013 LOW [facility] HEMATOLOGY MCV 97.3 81.0 - 99.0 01/09/2013 Normal [facility] HEMATOLOGY MCH 34.5 27.0 - 31.0 01/09/2013 [facility] HEMATOLOGY Hgb 12.6 12.0 - 16.0 01/09/2013 Normal [facility] HEMATOLOGY Hct 35.6 36.0 - 48.0 01/09/2013 LOW [facility] HEMATOLOGY Platelet 245 133 - 450 01/09/2013 Normal [facility] HEMATOLOGY RDW 14.0 11.5 - 14.5 01/09/2013 Normal [facility] HEMATOLOGY MCHC 35.5 32.0 - 36.0 01/09/2013 Normal [facility] HEMATOLOGY WBC 11.1 3.7 - 10.4 01/09/2013 HI [facility] HEMATOLOGY Lymphocytes # 0.9 1.0 - 5.5 01/09/2013 LOW [facility] HEMATOLOGY Monocytes # 0.0 0.0 - 0.8 01/09/2013 Normal [facility] HEMATOLOGY Eosinophils # 0.0 0.0 - 0.5 01/09/2013 Normal [facility] HEMATOLOGY Basophils # 0.0 0.0 - 0.2 01/09/2013 Normal [facility] HEMATOLOGY Segs-Bands # 10.2 1.5 - 8.1 01/09/2013 [facility] HEMATOLOGY Lymphocytes 7.9 20.0 - 40.0 01/09/2013 LOW [facility] HEMATOLOGY Monocytes 0.4 2.0 - 12.0 01/09/2013 LOW [facility] HEMATOLOGY Eosinophils 0.0 0.0 - 4.0 01/09/2013 Normal [facility] HEMATOLOGY Basophils 0.0 0.0 - 1.0 01/09/2013 Normal [facility] HEMATOLOGY Segs 91.7 45.0 - 75.0 01/09/2013 [facility] BEDSIDE GLUCOSE TESTING Comment2 Notify RN/ 01/08/2013 NA [facility] CHEMISTRY Glucose Lvl 491 70 - 99 01/08/2013 CRIT <sup>10</sup>Result Comment: Critical Re sult(s) called to Rachael Alonso at 01/08/2013 17:58 by RP. Read back OK.
<sup>11</sup>Interpretive Data: Adult reference range values reflect the clinical guidelines
of the [place] [employer]. [facility] Microbiology Gram Stain 01/08/2013 [facility] Microbiology Culture: Respiratory w/ Gram Stain 01/08/2013 [facility] CHEMISTRY Lactic Acid Lvl 1.2 0.5 - 2.2 01/08/2013 Normal [facility] Microbiology Culture: Blood 01/08/2013 [facility] Microbiology Culture: Blood 01/08/2013 [facility] CHEMISTRY CK MB Index <1.1 0.0 - 2.5 01/08/2013 Normal [facility] CHEMISTRY CK MB <0.5 0.5 - 3.6 01/08/2013 Normal [facility] CHEMISTRY Sodium Lvl 144 135 - 145 01/08/2013 Normal [facility] CHEMISTRY Potassium Lvl 3.9 3.5 - 5.1 01/08/2013 Normal [facility] CHEMISTRY Chloride Lvl 106 95 - 109 01/08/2013 Normal [facility] CHEMISTRY eGFR 61 01/08/2013 NA <sup>5</sup>Result Comment: The eGFR is calculated using the CKD-EPI formula. In most young, healthy individuals the eGFR will be >90 mL/min/1.73m2. The eGFR declines with age. An eGFR of 60-89 may be normal in some populations, particularly the elderly, for whom the CKD-EPI formula has not been extensively validated. Use of the eGFR is not recommended in the following populations:& lt;br/>
Individuals with unstable creatinine concentrations, including patients [...] should be multiplied by the estimated BMI. [facility] CHEMISTRY A/G Ratio 0.9 0.7 - 1.6 01/08/2013 Normal [facility] CHEMISTRY AST 59 0 - 37 01/08/2013 [facility] CHEMISTRY AGAP 13.9 10.0 - 20.0 01/08/2013 Normal [facility] CHEMISTRY Globulin 3.5 2.0 - 4.0 01/08/2013 Normal [facility] CHEMISTRY B/C Ratio 20 6 - 25 01/08/2013 Normal [facility] CHEMISTRY Bili Total 0.4 0.2 - 1.3 01/08/2013 Normal [facility] CHEMISTRY Alk Phos 270 39 - 136 01/08/2013 HI [facility] CHEMISTRY Albumin Lvl 3.2 3.5 - 5.0 01/08/2013 LOW [facility] CHEMISTRY ALT 57 0 - 65 01/08/2013 Normal [facility] CHEMISTRY Total Protein 6.7 6.4 - 8.4 01/08/2013 Normal [facility] CHEMISTRY CO2 28 24 - 32 01/08/2013 Normal [facility] CHEMISTRY BUN 18 7 - 22 01/08/2013 Normal [facility] CHEMISTRY Calcium Lvl 9.0 8.5 - 10.5 01/08/2013 Normal [facility] CHEMISTRY Creatinine Lvl 0.9 0.5 - 1.4 01/08/2013 Normal [facility] CHEMISTRY Total CK 44 12 - 191 01/08/2013 Normal [facility] CHEMISTRY Troponin-I <0.02 0.00 - 0.40 01/08/2013 Normal [facility] PT 12.9 12.0 - 14.7 01/08/2013 Normal [facility] INR 0.95 0.85 - 1.17 01/08/2013 Normal <sup>13</sup>Interpretive Data: RECOMMEN DED RANGES FOR PROTIME INR:
2.0-3.0 for most medical and surgical thromboembolic states.
2.5-3.5 for artificial heart valves and recurrent embolism.

INR SHOULD BE USED ONLY FOR PATIENTS ON STABLE ANTICOAGULANT THERAPY. [facility] D-Dimer 0.56 01/08/2013 NA <sup>14</sup>Interpretive Data: In DIC, quantitative D-Dimer is generally greater than
0.66 ug/mL FEU. Values of quantitative D-Dimer less than
0.40 ug/mL FEU have been reported to be associated with a low
probability of deep vein thrombosis/pulmonary embolism.
This test alone should not be used to rule out DVT/PE. [facility] PTT 35.4 22.9 - 35.8 01/08/2013 Normal <sup>15</sup>Interpretive Data: Heparin Therapeutic Range: 57 - 92 Seconds [facility] BNP 68 <=100 01/08/2013 Normal <sup>12</sup>Interpretive Data: Elevated results are in line with increasing severity of
congestive heart failure. Minor elevations between 100 and 300
may be seen with Myocardial Ischemia, Sodium retaining drugs,
and compensated/treated heart failure. [facility] Monocytes # 0.5 0.0 - 0.8 01/08/2013 Normal [facility] Lymphocytes # 2.3 1.0 - 5.5 01/08/2013 Normal [facility] Basophils 0.7 0.0 - 1.0 01/08/2013 Normal [facility] Eosinophils # 0.2 0.0 - 0.5 01/08/2013 Normal [facility] HEMATOLOGY Eosinophils 2.4 0.0 - 4.0 01/08/2013 Normal [facility] HEMATOLOGY Segs-Bands # 5.2 1.5 - 8.1 01/08/2013 Normal [facility] HEMATOLOGY Basophils # 0.1 0.0 - 0.2 01/08/2013 Normal [facility] HEMATOLOGY Segs 62.5 45.0 - 75.0 01/08/2013 Normal [facility] HEMATOLOGY Lymphocytes 28.2 20.0 - 40.0 01/08/2013 Normal [facility] HEMATOLOGY Monocytes 6.2 2.0 - 12.0 01/08/2013 Normal [facility] HEMATOLOGY MPV 8.8 7.4 - 10.4 01/08/2013 Normal [facility] HEMATOLOGY Platelet 257 133 - 450 01/08/2013 Normal [facility] HEMATOLOGY WBC 8.3 3.7 - 10.4 01/08/2013 Normal [facility] HEMATOLOGY MCHC 33.7 32.0 - 36.0 01/08/2013 Normal [facility] HEMATOLOGY MCH 31.6 27.0 - 31.0 01/08/2013 [facility] HEMATOLOGY RDW 14.9 11.5 - 14.5 01/08/2013 [facility] HEMATOLOGY RBC 4.18 4.20 - 5.40 01/08/2013 LOW [facility] HEMATOLOGY Hgb 13.2 12.0 - 16.0 01/08/2013 Normal [facility] HEMATOLOGY MCV 93.9 81.0 - 99.0 01/08/2013 Normal [facility] HEMATOLOGY Hct 39.3 36.0 - 48.0 01/08/2013 Normal [facility] CHEMISTRY Temp Art 37.0 01/08/2013 NA [facility] CHEMISTRY Allens Art Positi ve (01/07/2013 20:25:00) 01/08/2013 Normal [facility] CHEMISTRY FiO2 Art Room Air 01/08/2013 NA [facility] CHEMISTRY Site Art Left R ad (01/07/2013 20:25:00) 01/08/2013 Normal [facility] CHEMISTRY pH Art 7.46 7.35 - 7.45 01/08/2013 [facility] CHEMISTRY HCO3 Art 28 22 - 26 01/08/2013 [facility] CHEMISTRY BE Art 4 -2-2 - 2 01/08/2013 [facility] CHEMISTRY pCO2 Art 40 35 - 45 01/08/2013 Normal [facility] CHEMISTRY pO2 Art 81 80 - 100 01/08/2013 Normal [facility] CHEMISTRY O2 Sat Art 96.5 95.0 - 100.0 01/08/2013 Normal [facility] URINALYSIS UA Urobilinogen 0.1 - 1.0 01/08/2013 NA [facility] URINALYSIS UA WBC <1 0 - 5 01/08/2013 Normal [facility] URINALYSIS UA Sq Epi Few / LPF *NA* (01/07/2013 20:20:00) Few 01/08/2013 NA [facility] URINALYSIS UA Leuk Est Negat cameron (01/07/2013 20:20:00) Negati ve 01/08/2013 Normal [facility] URINALYSIS UA Nitrite Negat cameron (01/07/2013 20:20:00) Negati ve 01/08/2013 Normal [facility] URINALYSIS UA RBC <1 0 - 2 01/08/2013 Normal [facility] URINALYSIS UA Color Ltyellow 01/08/2013 NA [facility] URINALYSIS UA Ketones Negat cameron mg/dL *NA* (01/07/2013 20:20:00) Negati ve 01/08/2013 NA [facility] URINALYSIS UA Glucose 50 mg /dL *ABN* (01/07/2013 20:20:00) Negati ve 01/08/2013 ABN [facility] URINALYSIS UA Protein Negat cameron mg/dL (01/07/2013 20:20:00) Negati ve 01/08/2013 Normal [facility] URINALYSIS UA Blood Negat cameron (01/07/2013 20:20:00) Negati ve 01/08/2013 Normal [facility] URINALYSIS UA Bili Negat cameron *NA* (01/07/2013 20:20:00) Negati ve 01/08/2013 NA [facility] URINALYSIS UA Turbidity Clear (01/07/2013 20:20:00) Clear 01/08/2013 Normal [facility] URINALYSIS UA pH 6.0 5.0 - 8.0 01/08/2013 Normal [facility] URINALYSIS UA Spec Grav 1.013 <=1.030 01/08/2013 Normal [facility] BEDSIDE GLUCOSE TESTING Comment1 Notify RN/ 09/03/2012 [facility] BEDSIDE GLUCOSE TESTING Gluc POC Lif scn >400 70 - 99 09/03/2012 CRIT <sup>1</sup>Interpretive Data: Upper Reportable Limit: 200 mg/dL. [facility] CHEMISTRY Glucose Lvl 428 70 - 99 09/03/2012 CRIT <sup>6</sup>Result Comment: Critical Res ult(s) called to Rogelio at 09/03/2012 12:15:32 BIOLOGY LABORATORY ASSISTANT by ZOEY. Read back OK.
<sup>7</sup>Interpretive Data: Adult reference range values reflect the clinical guidelines
of the [place] [employer]. [facility] BEDSIDE GLUCOSE TESTING Gluc POC Lif scn >400 70 - 99 09/03/2012 CRIT <sup>2</sup>Interpretive Data: Upper Reportable Limit: 200 mg/dL. [facility] BEDSIDE GLUCOSE TESTING Gluc POC Lif scn 305 70 - 99 09/03/2012 HI <sup>3</sup>Interpretive Data: Upper Reportable Limit: 200 mg/dL. [facility] CHEMISTRY Potassium Lvl 4.2 3.5 - 5.1 09/03/2012 Normal [facility] CHEMISTRY Sodium Lvl 142 135 - 145 09/03/2012 Normal [facility] CHEMISTRY Chloride Lvl 105 95 - 109 09/03/2012 Normal [facility] CHEMISTRY eGFR 48 09/03/2012 NA <sup>4</sup>Result Comment: The eGFR is calculated using the CKD-EPI formula. In most young, healthy individuals the eGFR will be >90 mL/min/1.73m2. The eGFR declines with age. An eGFR of 60-89 may be normal in some populations, particularly the elderly, for whom the CKD-EPI formula has not been extensively validated. Use of the eGFR is not recommended in the following populations:& lt;br/>
Individuals with unstable creatinine concentrations, including patients [...] should be multiplied by the estimated BMI. [facility] CHEMISTRY Calcium Lvl 9.1 8.5 - 10.5 09/03/2012 Normal [facility] CHEMISTRY AGAP 14.2 10.0 - 20.0 09/03/2012 Normal [facility] CHEMISTRY CO2 27 24 - 32 09/03/2012 Normal [facility] CHEMISTRY BUN 24 7 - 22 09/03/2012 HI [facility] CHEMISTRY Glucose Lvl 296 70 - 99 09/03/2012 [place] <sup>8</sup>Interpretive Data: Adult ref erence range values reflect the clinical guidelines
of the [place] [employer]. [facility] CHEMISTRY Creatinine Lvl 1.1 0.5 - 1.4 09/03/2012 Normal [facility] HEMATOLOGY Segs-Bands # 7.7 1.5 - 8.1 09/03/2012 Normal [facility] HEMATOLOGY Basophils 0.2 0.0 - 1.0 09/03/2012 Normal [facility] HEMATOLOGY Lymphocytes # 1.2 1.0 - 5.5 09/03/2012 Normal [facility] HEMATOLOGY Eosinophils # 0.0 0.0 - 0.5 09/03/2012 Normal [facility] HEMATOLOGY Eosinophils 0.0 0.0 - 4.0 09/03/2012 Normal [facility] HEMATOLOGY Monocytes # 0.1 0.0 - 0.8 09/03/2012 Normal [facility] HEMATOLOGY Monocytes 1.2 2.0 - 12.0 09/03/2012 LOW [facility] HEMATOLOGY Lymphocytes 12.9 20.0 - 40.0 09/03/2012 LOW [facility] HEMATOLOGY RBC Morph Jenny l (09/03/2012 05:58:00) 09/03/2012 Normal [facility] HEMATOLOGY Basophils # 0.0 0.0 - 0.2 09/03/2012 Normal [facility] HEMATOLOGY Segs 85.7 45.0 - 75.0 09/03/2012 [facility] HEMATOLOGY Plt Morph Jenny l (09/03/2012 05:58:00) 09/03/2012 Normal [facility] HEMATOLOGY MPV 8.1 7.4 - 10.4 09/03/2012 Normal [facility] HEMATOLOGY Platelet 353 133 - 450 09/03/2012 Normal [facility] HEMATOLOGY RDW 13.9 11.5 - 14.5 09/03/2012 Normal [facility] HEMATOLOGY RBC 4.24 4.20 - 5.40 09/03/2012 Normal [facility] HEMATOLOGY WBC 9.0 3.7 - 10.4 09/03/2012 Normal [facility] HEMATOLOGY MCHC 33.7 32.0 - 36.0 09/03/2012 Normal [facility] HEMATOLOGY MCV 93.2 81.0 - 99.0 09/03/2012 Normal [facility] HEMATOLOGY MCH 31.4 27.0 - 31.0 09/03/2012 [facility] HEMATOLOGY Hgb 13.3 12.0 - 16.0 09/03/2012 Normal [facility] HEMATOLOGY Hct 39.5 36.0 - 48.0 09/03/2012 Normal [facility] CHEMISTRY Glucose Lvl 476 70 - 99 09/03/2012 CRIT <sup>9</sup>Result Comment: Critical Res ult(s) called to Zahida at 09/02/2012 22:05:03 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 Read back OK.
<sup>10</sup>Interpretive Data: Adult reference range values reflect the clinical guidelines
of the [place] [employer]. [facility] BEDSIDE GLUCOSE TESTING Comment1 Notify RN/MD 09/03/2012 NA [facility] BEDSIDE GLUCOSE TESTING Comment1 Notify RN/MD 09/03/2012 [facility] Microbiology Culture: Urine 09/03/2012 [facility] URINALYSIS UA Bacteria Occas ional /HPF *NA* (09/02/2012 16:53:00) None S een 09/02/2012 NA [facility] URINALYSIS UA pH 5.0 5.0 - 8.0 09/02/2012 Normal [facility] URINALYSIS UA Protein Negat cameron mg/dL (09/02/2012 16:53:00) Negati ve 09/02/2012 Normal [facility] URINALYSIS UA Turbidity Clear (09/02/2012 16:53:00) Clear 09/02/2012 Normal [facility] URINALYSIS UA Spec Grav 1.018 <=1.030 09/02/2012 Normal [facility] URINALYSIS UA Glucose 500 m g/dL *ABN* (09/02/2012 16:53:00) Negati ve 09/02/2012 ABN [facility] URINALYSIS UA Ketones 20 mg /dL *ABN* (09/02/2012 16:53:00) Negati ve 09/02/2012 ABN [facility] URINALYSIS UA Bili Negat cameron *NA* (09/02/2012 16:53:00) Negati ve 09/02/2012 NA [facility] URINALYSIS UA Blood Negat cameron (09/02/2012 16:53:00) Negati ve 09/02/2012 Normal [facility] URINALYSIS UA Nitrite Negat cameron (09/02/2012 16:53:00) Negati ve 09/02/2012 Normal [facility] URINALYSIS UA Sq Epi Few / LPF *NA* (09/02/2012 16:53:00) Few 09/02/2012 NA [facility] URINALYSIS UA Leuk Est Trace *ABN* (09/02/2012 16:53:00) Negati ve 09/02/2012 ABN [facility] URINALYSIS UA RBC 3 0 - 2 09/02/2012 [facility] URINALYSIS UA WBC 14 0 - 5 09/02/2012 [facility] URINALYSIS UA Urobilinogen 0.1 - 1.0 09/02/2012 NA [facility] URINALYSIS UA Color Ltyellow 09/02/2012 [facility] CHEMISTRY Lactic Acid Lvl 1.2 0.5 - 2.2 09/02/2012 Normal [facility] Microbiology Culture: Blood 09/02/2012 [facility] Microbiology Culture: Blood 09/02/2012 [facility] CHEMISTRY Troponin-I <0.02 0.00 - 0.40 09/02/2012 Normal [facility] CHEMISTRY CK MB 0.9 0.5 - 3.6 09/02/2012 Normal [facility] CHEMISTRY Total CK 76 12 - 191 09/02/2012 Normal [facility] CHEMISTRY CK MB Index 1.2 0.0 - 2.5 09/02/2012 Normal [facility] CHEMISTRY BNP 64 <=100 09/02/2012 Normal <sup>11</sup>Interpretive Data: Elevated results are in line with increasing severity of
congestive heart failure. Minor elevations between 100 and 300
may be seen with Myocardial Ischemia, Sodium retaining drugs,
and compensated/treated heart failure. [facility] CHEMISTRY Alk Phos 244 39 - 136 09/02/2012 [facility] CHEMISTRY ALT 43 0 - 65 09/02/2012 Normal [facility] CHEMISTRY AST 40 0 - 37 09/02/2012 [facility] CHEMISTRY Bili Total 0.7 0.2 - 1.3 09/02/2012 Normal [facility] CHEMISTRY A/G Ratio 0.8 0.7 - 1.6 09/02/2012 Normal [facility] CHEMISTRY Globulin 4.4 2.0 - 4.0 09/02/2012 [facility] CHEMISTRY B/C Ratio 20 6 - 25 09/02/2012 Normal [facility] CHEMISTRY Total Protein 7.9 6.4 - 8.4 09/02/2012 Normal [facility] CHEMISTRY BUN 20 7 - 22 09/02/2012 Normal [facility] CHEMISTRY eGFR 54 09/02/2012 NA <sup>5</sup>Result Comment: The eGFR is calculated using the CKD-EPI formula. In most young, healthy individuals the eGFR will be >90 mL/min/1.73m2. The eGFR declines with age. An eGFR of 60-89 may be normal in some populations, particularly the elderly, for whom the CKD-EPI formula has not been extensively validated. Use of the eGFR is not recommended in the following populations:& lt;br/>
Individuals with unstable creatinine concentrations, including patients [...] should be multiplied by the estimated BMI. [facility] CHEMISTRY Calcium Lvl 9.6 8.5 - 10.5 09/02/2012 Normal [facility] CHEMISTRY Albumin Lvl 3.5 3.5 - 5.0 09/02/2012 Normal [facility] CHEMISTRY AGAP 14.9 10.0 - 20.0 09/02/2012 Normal [facility] CHEMISTRY Chloride Lvl 107 95 - 109 09/02/2012 Normal [facility] CHEMISTRY Potassium Lvl 3.9 3.5 - 5.1 09/02/2012 Normal [facility] CHEMISTRY CO2 27 24 - 32 09/02/2012 Normal [facility] CHEMISTRY Creatinine Lvl 1.0 0.5 - 1.4 09/02/2012 Normal [facility] CHEMISTRY Sodium Lvl 145 135 - 145 09/02/2012 Normal [facility] CHEMISTRY Magnesium Lvl 1.7 1.8 - 2.4 09/02/2012 LOW [facility] CHEMISTRY Phosphorus 3.3 2.5 - 4.5 09/02/2012 Normal [facility] HEMATOLOGY INR 0.91 0.85 - 1.17 09/02/2012 Normal <sup>12</sup>Interpretive Data: RECOMMEN DED RANGES FOR PROTIME INR:
2.0-3.0 for most medical and surgical thromboembolic states.
2.5-3.5 for artificial heart valves and recurrent embolism.

INR SHOULD BE USED ONLY FOR PATIENTS ON STABLE ANTICOAGULANT THERAPY. [facility] HEMATOLOGY PTT 37.0 22.9 - 35.8 09/02/2012 [place] <sup>13</sup>Interpretive Data: Heparin Therapeutic Range: 57 - 92 Seconds [facility] HEMATOLOGY PT 12.5 12.0 - 14.7 09/02/2012 Normal [facility] HEMATOLOGY Lymphocytes 20.7 20.0 - 40.0 09/02/2012 Normal [facility] HEMATOLOGY Segs 71.9 45.0 - 75.0 09/02/2012 Normal [facility] HEMATOLOGY Basophils 0.3 0.0 - 1.0 09/02/2012 Normal [facility] HEMATOLOGY Segs-Bands # 6.7 1.5 - 8.1 09/02/2012 Normal [facility] HEMATOLOGY Monocytes 5.3 2.0 - 12.0 09/02/2012 Normal [facility] HEMATOLOGY Eosinophils 1.8 0.0 - 4.0 09/02/2012 Normal [facility] HEMATOLOGY Eosinophils # 0.2 0.0 - 0.5 09/02/2012 Normal [facility] HEMATOLOGY Basophils # 0.0 0.0 - 0.2 09/02/2012 Normal [facility] HEMATOLOGY Lymphocytes # 1.9 1.0 - 5.5 09/02/2012 Normal [facility] HEMATOLOGY Monocytes # 0.5 0.0 - 0.8 09/02/2012 Normal [facility] HEMATOLOGY MCH 31.6 27.0 - 31.0 09/02/2012 HI [facility] HEMATOLOGY MCV 93.0 81.0 - 99.0 09/02/2012 Normal [facility] HEMATOLOGY RDW 14.0 11.5 - 14.5 09/02/2012 Normal [facility] HEMATOLOGY MCHC 34.0 32.0 - 36.0 09/02/2012 Normal [facility] HEMATOLOGY Platelet 382 133 - 450 09/02/2012 Normal [facility] HEMATOLOGY MPV 8.9 7.4 - 10.4 09/02/2012 Normal [facility] HEMATOLOGY Hct 44.9 36.0 - 48.0 09/02/2012 Normal [facility] HEMATOLOGY WBC 9.4 3.7 - 10.4 09/02/2012 Normal [facility] HEMATOLOGY Hgb 15.3 12.0 - 16.0 09/02/2012 Normal [facility] HEMATOLOGY RBC 4.83 4.20 - 5.40 09/02/2012 Normal [facility] BEDSIDE GLUCOSE TESTING Gluc POC Lif scn 142 70 - 99 06/26/2012 [place] <sup>1</sup>Interpretive Data: Upper Reportable Limit: 200 mg/dL. [facility] CHEMISTRY Sodium Lvl 146 135 - 145 06/26/2012 HI [facility] CHEMISTRY Calcium Lvl 8.1 8.5 - 10.5 06/26/2012 LOW [facility] CHEMISTRY CO2 28 24 - 32 06/26/2012 Normal [facility] CHEMISTRY Chloride Lvl 108 95 - 109 06/26/2012 Normal [facility] CHEMISTRY Potassium Lvl 4.0 3.5 - 5.1 06/26/2012 Normal [facility] CHEMISTRY Albumin Lvl 2.4 3.5 - 5.0 06/26/2012 LOW [facility] CHEMISTRY eGFR 48 06/26/2012 NA <sup>4</sup>Result Comment: The eGFR is calculated using the CKD-EPI formula. In most young, healthy individuals the eGFR will be >90 mL/min/1.73m2. The eGFR declines with age. An eGFR of 60-89 may be normal in some populations, particularly the elderly, for whom the CKD-EPI formula has not been extensively validated. Use of the eGFR is not recommended in the following populations:& lt;br/>
Individuals with unstable creatinine concentrations, including patients [...] should be multiplied by the estimated BMI. [facility] CHEMISTRY Glucose Lvl 164 70 - 99 06/26/2012 [place] <sup>7</sup>Interpretive Data: Adult ref erence range values reflect the clinical guidelines
of the [place] [employer]. [facility] CHEMISTRY BUN 15 7 - 22 06/26/2012 Normal [facility] CHEMISTRY Creatinine Lvl 1.1 0.5 - 1.4 06/26/2012 Normal [facility] CHEMISTRY B/C Ratio 14 6 - 25 06/26/2012 Normal [facility] CHEMISTRY Globulin 2.9 2.0 - 4.0 06/26/2012 Normal [facility] CHEMISTRY Total Protein 5.3 6.4 - 8.4 06/26/2012 LOW [facility] CHEMISTRY Bili Total 0.7 0.2 - 1.3 06/26/2012 Normal [facility] CHEMISTRY Alk Phos 317 39 - 136 06/26/2012 [facility] CHEMISTRY ALT 49 0 - 65 06/26/2012 Normal [facility] CHEMISTRY A/G Ratio 0.8 0.7 - 1.6 06/26/2012 Normal [facility] CHEMISTRY AST 53 0 - 37 06/26/2012 HI [facility] CHEMISTRY AGAP 14.0 10.0 - 20.0 06/26/2012 Normal [facility] HEMATOLOGY Eosinophils # 0.2 0.0 - 0.5 06/26/2012 [facility] HEMATOLOGY Basophils # 0.0 0.0 - 0.2 06/26/2012 Normal [facility] HEMATOLOGY Segs-Bands # 3.8 1.5 - 8.1 06/26/2012 Normal [facility] HEMATOLOGY Monocytes # 0.7 0.0 - 0.8 06/26/2012 Normal [facility] HEMATOLOGY Lymphocytes # 1.6 1.0 - 5.5 06/26/2012 Normal [facility] HEMATOLOGY Basophils 0.3 0.0 - 1.0 06/26/2012 Normal [facility] HEMATOLOGY Eosinophils 2.6 0.0 - 4.0 06/26/2012 Normal [facility] HEMATOLOGY Monocytes 10.5 2.0 - 12.0 06/26/2012 Normal [facility] HEMATOLOGY Segs 60.7 45.0 - 75.0 06/26/2012 Normal [facility] HEMATOLOGY Lymphocytes 25.9 20.0 - 40.0 06/26/2012 Normal [facility] HEMATOLOGY MPV 9.0 7.4 - 10.4 06/26/2012 Normal [facility] HEMATOLOGY Platelet 203 133 - 450 06/26/2012 Normal [facility] HEMATOLOGY Hct 36.1 36.0 - 48.0 06/26/2012 Normal [facility] HEMATOLOGY MCH 31.8 27.0 - 31.0 06/26/2012 HI [facility] HEMATOLOGY MCHC 34.1 32.0 - 36.0 06/26/2012 Normal [facility] HEMATOLOGY RDW 13.9 11.5 - 14.5 06/26/2012 Normal [facility] HEMATOLOGY MCV 93.0 81.0 - 99.0 06/26/2012 Normal [facility] HEMATOLOGY WBC 6.3 3.7 - 10.4 06/26/2012 Normal [facility] HEMATOLOGY RBC 3.88 4.20 - 5.40 06/26/2012 LOW [facility] HEMATOLOGY Hgb 12.3 12.0 - 16.0 06/26/2012 Normal [facility] BEDSIDE GLUCOSE TESTING Gluc POC Lif scn 254 70 - 99 06/26/2012 [place] <sup>2</sup>Interpretive Data: Upper Reportable Limit: 200 mg/dL. [facility] BEDSIDE GLUCOSE TESTING Gluc POC Lif scn 252 70 - 99 06/25/2012 [place] <sup>3</sup>Interpretive Data: Upper Reportable Limit: 200 mg/dL. [facility] BEDSIDE GLUCOSE TESTING Comment1 Notify SAULO/ 06/25/2012 NA [facility] BEDSIDE GLUCOSE TESTING Comment1 Notify RN/ 06/25/2012 NA [facility] CHEMISTRY LDL 55 0 - 129 06/25/2012 Normal [facility] CHEMISTRY HDL 11 >=35 06/25/2012 LOW [facility] CHEMISTRY Chol 102 120 - 200 06/25/2012 LOW [facility] CHEMISTRY CHD Risk 9.27 3.90 - 5.80 06/25/2012 HI [facility] CHEMISTRY Trig 182 0 - 200 06/25/2012 Normal [facility] CHEMISTRY AGAP 12.7 10.0 - 20.0 06/25/2012 Normal [facility] CHEMISTRY Globulin 3.5 2.0 - 4.0 06/25/2012 Normal [facility] CHEMISTRY B/C Ratio 15 6 - 25 06/25/2012 Normal [facility] CHEMISTRY A/G Ratio 0.6 0.7 - 1.6 06/25/2012 LOW [facility] CHEMISTRY eGFR 48 06/25/2012 NA <sup>5</sup>Result Comment: The eGFR is calculated using the CKD-EPI formula. In most young, healthy individuals the eGFR will be >90 mL/min/1.73m2. The eGFR declines with age. An eGFR of 60-89 may be normal in some populations, particularly the elderly, for whom the CKD-EPI formula has not been extensively validated. Use of the eGFR is not recommended in the following populations:& lt;br/>
Individuals with unstable creatinine concentrations, including patients [...] should be multiplied by the estimated BMI. [facility] CHEMISTRY Albumin Lvl 2.2 3.5 - 5.0 06/25/2012 LOW [facility] CHEMISTRY Calcium Lvl 8.2 8.5 - 10.5 06/25/2012 LOW [facility] CHEMISTRY CO2 24 24 - 32 06/25/2012 Normal [facility] CHEMISTRY Chloride Lvl 110 95 - 109 06/25/2012 [facility] CHEMISTRY Glucose Lvl 82 70 - 99 06/25/2012 Normal <sup>8</sup>Interpretive Data: Adult ref erence range values reflect the clinical guidelines
of the [place] [employer]. [facility] CHEMISTRY Potassium Lvl 3.7 3.5 - 5.1 06/25/2012 Normal [facility] CHEMISTRY Creatinine Lvl 1.1 0.5 - 1.4 06/25/2012 Normal [facility] CHEMISTRY Sodium Lvl 143 135 - 145 06/25/2012 Normal [facility] CHEMISTRY Bili Total 0.4 0.2 - 1.3 06/25/2012 Normal [facility] CHEMISTRY AST 53 0 - 37 06/25/2012 [facility] CHEMISTRY Total Protein 5.7 6.4 - 8.4 06/25/2012 LOW [facility] CHEMISTRY BUN 17 7 - 22 06/25/2012 Normal [facility] CHEMISTRY ALT 48 0 - 65 06/25/2012 Normal [facility] CHEMISTRY Alk Phos 220 39 - 136 06/25/2012 [facility] CHEMISTRY Magnesium Lvl 1.7 1.8 - 2.4 06/25/2012 LOW [facility] HEMATOLOGY Lymphocytes 17.6 20.0 - 40.0 06/25/2012 LOW [facility] HEMATOLOGY Eosinophils 1.0 0.0 - 4.0 06/25/2012 Normal [facility] HEMATOLOGY Segs-Bands # 4.5 1.5 - 8.1 06/25/2012 Normal [facility] HEMATOLOGY Basophils 0.5 0.0 - 1.0 06/25/2012 Normal [facility] HEMATOLOGY Monocytes 10.0 2.0 - 12.0 06/25/2012 Normal [facility] HEMATOLOGY Monocytes # 0.6 0.0 - 0.8 06/25/2012 Normal [facility] HEMATOLOGY Eosinophils # 0.1 0.0 - 0.5 06/25/2012 Normal [facility] HEMATOLOGY Lymphocytes # 1.1 1.0 - 5.5 06/25/2012 Normal [facility] HEMATOLOGY Basophils # 0.0 0.0 - 0.2 06/25/2012 Normal [facility] HEMATOLOGY Segs 70.9 45.0 - 75.0 06/25/2012 Normal [facility] HEMATOLOGY MPV 9.1 7.4 - 10.4 06/25/2012 Normal [facility] HEMATOLOGY RDW 14.0 11.5 - 14.5 06/25/2012 Normal [facility] HEMATOLOGY Platelet 190 133 - 450 06/25/2012 Normal [facility] MCHC 34.2 32.0 - 36.0 06/25/2012 Normal [facility] HEMATOLOGY MCH 31.9 27.0 - 31.0 06/25/2012 HI [facility] HEMATOLOGY Hgb 11.6 12.0 - 16.0 06/25/2012 LOW [facility] HEMATOLOGY Hct 34.0 36.0 - 48.0 06/25/2012 LOW [facility] HEMATOLOGY WBC 6.4 3.7 - 10.4 06/25/2012 Normal [facility] HEMATOLOGY RBC 3.65 4.20 - 5.40 06/25/2012 LOW [facility] HEMATOLOGY MCV 93.1 81.0 - 99.0 06/25/2012 Normal [facility] EBV VCA IgM 0.03 <=0.89 06/25/2012 Normal <sup>10</sup>Interpretive Data: Index Va lue Results Interpretation
---------
<=0.90 Negative No detectable IgM Antibody.
0.90 - 1.09 Equivocal Repeat testing suggested in 10-14 days.
>=1.10 Positive Significant level of detectable VCA IgM
Antibody, indicative of current or recent
infection. [facility] ROGELIO Negat cameorn (06/25/2012 07:12:00) Negati ve 06/25/2012 Normal [facility] CMV IgG React cameron *ABN* (06/25/2012 07:12:00) Non Re active 06/25/2012 ABN [facility] IMMUNOLOGY Hep Bs Ag Negat cameron *NA* (06/25/2012 07:12:00) Negati ve 06/25/2012 NA [facility] Hep C Ab Negat cameron *NA* (06/25/2012 07:12:00) Negati ve 06/25/2012 NA [facility] Hep B Core IgM Negat cameron *NA* (06/25/2012 07:12:00) Negati ve 06/25/2012 NA [facility] IMMUNOLOGY Hep A IgM Negat cameron *NA* (06/25/2012 07:12:00) Negati ve 06/25/2012 [facility] BEDSIDE GLUCOSE TESTING Comment1 Notify RN/ 06/25/2012 NA [facility] CHEMISTRY Troponin-I <0.02 0.00 - 0.40 06/24/2012 Normal [facility] CHEMISTRY Total CK 65 12 - 191 06/24/2012 Normal [facility] CHEMISTRY Troponin-I <0.02 0.00 - 0.40 06/24/2012 Normal [facility] CHEMISTRY Total CK 60 12 - 191 06/24/2012 Normal [facility] CHEMISTRY Magnesium Lvl 1.7 1.8 - 2.4 06/24/2012 LOW [facility] CHEMISTRY AST 75 0 - 37 06/24/2012 [facility] CHEMISTRY Bili Total 0.8 0.2 - 1.3 06/24/2012 Normal [facility] CHEMISTRY ALT 63 0 - 65 06/24/2012 Normal [facility] CHEMISTRY Total Protein 5.5 6.4 - 8.4 06/24/2012 LOW [facility] CHEMISTRY Alk Phos 252 39 - 136 06/24/2012 [facility] CHEMISTRY Calcium Lvl 8.0 8.5 - 10.5 06/24/2012 LOW [facility] CHEMISTRY Albumin Lvl 2.7 3.5 - 5.0 06/24/2012 LOW [facility] CHEMISTRY CO2 25 24 - 32 06/24/2012 Normal [facility] CHEMISTRY Chloride Lvl 105 95 - 109 06/24/2012 Normal [facility] CHEMISTRY Sodium Lvl 139 135 - 145 06/24/2012 Normal [facility] CHEMISTRY Potassium Lvl 4.2 3.5 - 5.1 06/24/2012 Normal [facility] CHEMISTRY Creatinine Lvl 1.5 0.5 - 1.4 06/24/2012 [facility] CHEMISTRY Glucose Lvl 228 70 - 99 06/24/2012 [facility] <sup>9</sup>Interpretive Data: Adult ref erence range values reflect the clinical guidelines
of the [place] [employer]. [facility] CHEMISTRY BUN 28 7 - 22 06/24/2012 [facility] CHEMISTRY eGFR 33 06/24/2012 NA <sup>6</sup>Result Comment: The eGFR is calculated using the CKD-EPI formula. In most young, healthy individuals the eGFR will be >90 mL/min/1.73m2. The eGFR declines with age. An eGFR of 60-89 may be normal in some populations, particularly the elderly, for whom the CKD-EPI formula has not been extensively validated. Use of the eGFR is not recommended in the following populations:& lt;br/>
Individuals with unstable creatinine concentrations, including patients [...] should be multiplied by the estimated BMI. [facility] CHEMISTRY Globulin 2.8 2.0 - 4.0 06/24/2012 Normal [facility] CHEMISTRY A/G Ratio 1.0 0.7 - 1.6 06/24/2012 Normal [facility] CHEMISTRY AGAP 13.2 10.0 - 20.0 06/24/2012 Normal [facility] CHEMISTRY B/C Ratio 19 6 - 25 06/24/2012 Normal [facility] CHEMISTRY Phosphorus 2.1 2.5 - 4.5 06/24/2012 LOW [facility] HEMATOLOGY Lymphocytes 8.9 20.0 - 40.0 06/24/2012 LOW [facility] HEMATOLOGY Segs 83.1 45.0 - 75.0 06/24/2012 HI [facility] HEMATOLOGY Eosinophils 0.3 0.0 - 4.0 06/24/2012 Normal [facility] HEMATOLOGY Monocytes 7.5 2.0 - 12.0 06/24/2012 Normal [facility] HEMATOLOGY Segs-Bands # 6.5 1.5 - 8.1 06/24/2012 Normal [facility] HEMATOLOGY Monocytes # 0.6 0.0 - 0.8 06/24/2012 Normal [facility] HEMATOLOGY Lymphocytes # 0.7 1.0 - 5.5 06/24/2012 LOW [facility] HEMATOLOGY Basophils # 0.0 0.0 - 0.2 06/24/2012 Normal [facility] HEMATOLOGY Eosinophils # 0.0 0.0 - 0.5 06/24/2012 Normal [facility] HEMATOLOGY Basophils 0.2 0.0 - 1.0 06/24/2012 Normal [facility] HEMATOLOGY WBC 7.8 3.7 - 10.4 06/24/2012 Normal [facility] HEMATOLOGY MCHC 33.0 32.0 - 36.0 06/24/2012 Normal [facility] HEMATOLOGY Platelet 178 133 - 450 06/24/2012 Normal [facility] HEMATOLOGY RDW 13.6 11.5 - 14.5 06/24/2012 Normal [facility] HEMATOLOGY MCV 94.6 81.0 - 99.0 06/24/2012 Normal [facility] HEMATOLOGY MCH 31.2 27.0 - 31.0 06/24/2012 HI [facility] HEMATOLOGY RBC 3.85 4.20 - 5.40 06/24/2012 LOW [facility] HEMATOLOGY Hgb 12.0 12.0 - 16.0 06/24/2012 Normal [facility] HEMATOLOGY Hct 36.4 36.0 - 48.0 06/24/2012 Normal [facility] HEMATOLOGY MPV 8.9 7.4 - 10.4 06/24/2012 Normal [facility] Microbiology Culture: Urine 06/24/2012 [facility] URINALYSIS UA Mucus Few / LPF *NA* (06/23/2012 17:36:00) None S een 06/23/2012 NA [facility] URINALYSIS UA Urobilinogen 2.0 0.1 - 1.0 06/23/2012 [facility] URINALYSIS UA Ketones Negat cameron mg/dL *NA* (06/23/2012 17:36:00) Negati ve 06/23/2012 [facility] URINALYSIS UA Protein Negat cameron mg/dL (06/23/2012 17:36:00) Negati ve 06/23/2012 Normal [facility] URINALYSIS UA Blood Small *ABN* (06/23/2012 17:36:00) Negati ve 06/23/2012 ABN [facility] URINALYSIS UA Glucose 500 m g/dL *ABN* (06/23/2012 17:36:00) Negati ve 06/23/2012 ABN [facility] URINALYSIS UA RBC 4 0 - 2 06/23/2012 HI [facility] URINALYSIS UA Nitrite Negat cameron (06/23/2012 17:36:00) Negati ve 06/23/2012 Normal [facility] URINALYSIS UA Bacteria Occas ional /HPF *NA* (06/23/2012 17:36:00) None S een 06/23/2012 [facility] URINALYSIS UA Bili Negat cameron *NA* (06/23/2012 17:36:00) Negati ve 06/23/2012 [facility] URINALYSIS UA Leuk Est Small *ABN* (06/23/2012 17:36:00) Negati ve 06/23/2012 ABN [facility] URINALYSIS UA WBC 20 0 - 5 06/23/2012 [facility] URINALYSIS UA Sq Epi Few / LPF *NA* (06/23/2012 17:36:00) Few 06/23/2012 NA [facility] URINALYSIS UA pH 5.0 5.0 - 8.0 06/23/2012 Normal [facility] URINALYSIS UA Spec Grav 1.008 <=1.030 06/23/2012 Normal [facility] URINALYSIS UA Turbidity Sligh t *ABN* (06/23/2012 17:36:00) Clear 06/23/2012 ABN [facility] URINALYSIS UA Color Yello w *NA* (06/23/2012 17:36:00) Yellow 06/23/2012 NA [facility] URINALYSIS UA Color Jayne 06/22/2012 [facility] URINALYSIS UA Urobilinogen 0.1 - 1.0 06/22/2012 NA [facility] URINALYSIS UA Turbidity Marke d *ABN* (06/22/2012 10:30:00) Clear 06/22/2012 ABN [facility] URINALYSIS UA Protein 100 m g/dL *ABN* (06/22/2012 10:30:00) Negati ve 06/22/2012 ABN [facility] URINALYSIS UA pH 5.0 5.0 - 8.0 06/22/2012 Normal [facility] URINALYSIS UA Spec Grav 1.012 <=1.030 06/22/2012 Normal [facility] URINALYSIS UA Bili Negat cameron *NA* (06/22/2012 10:30:00) Negati ve 06/22/2012 [facility] URINALYSIS UA Ketones Negat cameron mg/dL *NA* (06/22/2012 10:30:00) Negati ve 06/22/2012 [facility] URINALYSIS UA Glucose 50 mg /dL *ABN* (06/22/2012 10:30:00) Negati ve 06/22/2012 ABN [facility] URINALYSIS UA Nitrite Posit cameron *ABN* (06/22/2012 10:30:00) Negati ve 06/22/2012 ABN [facility] URINALYSIS UA Blood Large *ABN* (06/22/2012 10:30:00) Negati ve 06/22/2012 ABN [facility] URINALYSIS UA Mucus Few / LPF *NA* (06/22/2012 10:30:00) None S een 06/22/2012 NA [facility] URINALYSIS UA Hyal Cast 3 0 - 2 06/22/2012 [facility] URINALYSIS UA Bacteria Few / HPF *NA* (06/22/2012 10:30:00) None S een 06/22/2012 NA [facility] URINALYSIS UA RBC 20 0 - 2 06/22/2012 [facility] URINALYSIS UA Sq Epi Many /LPF *ABN* (06/22/2012 10:30:00) Few 06/22/2012 ABN [facility] URINALYSIS UA Leuk Est Large *ABN* (06/22/2012 10:30:00) Negati ve 06/22/2012 ABN [facility] URINALYSIS UA WBC 69 0 - 5 06/22/2012 [facility] CHEMISTRY CK MB Index <0.9 0.0 - 2.5 06/22/2012 Normal [facility] CHEMISTRY Total CK 53 12 - 191 06/22/2012 Normal [facility] CHEMISTRY CK MB <0.5 0.5 - 3.6 06/22/2012 Normal [facility] CHEMISTRY Glucose Lvl 259 70 - 99 06/22/2012 [facility] <sup>2</sup>Interpretive Data: Adult ref erence range values reflect the clinical guidelines
of the [place] [employer]. [facility] CHEMISTRY BUN 27 7 - 22 06/22/2012 [facility] CHEMISTRY AGAP 13.7 10.0 - 20.0 06/22/2012 Normal [facility] CHEMISTRY B/C Ratio 17 6 - 25 06/22/2012 Normal [facility] CHEMISTRY Albumin Lvl 3.3 3.5 - 5.0 06/22/2012 LOW [facility] CHEMISTRY CO2 23 24 - 32 06/22/2012 LOW [facility] CHEMISTRY eGFR 31 06/22/2012 NA <sup>1</sup>Result Comment: The eGFR is calculated using the CKD-EPI formula. In most young, healthy individuals the eGFR will be >90 mL/min/1.73m2. The eGFR declines with age. An eGFR of 60-89 may be normal in some populations, particularly the elderly, for whom the CKD-EPI formula has not been extensively validated. Use of the eGFR is not recommended in the following populations:& lt;br/>
Individuals with unstable creatinine concentrations, including patients [...] be multiplied by the estimated BMI. [facility] CHEMISTRY Potassium Lvl 3.7 3.5 - 5.1 06/22/2012 Normal [facility] CHEMISTRY Chloride Lvl 105 95 - 109 06/22/2012 Normal [facility] CHEMISTRY Calcium Lvl 9.1 8.5 - 10.5 06/22/2012 Normal [facility] CHEMISTRY Sodium Lvl 138 135 - 145 06/22/2012 Normal [facility] CHEMISTRY Creatinine Lvl 1.6 0.5 - 1.4 06/22/2012 [facility] CHEMISTRY Bili Total 1.5 0.2 - 1.3 06/22/2012 [facility] CHEMISTRY Alk Phos 222 39 - 136 06/22/2012 [facility] CHEMISTRY ALT 44 0 - 65 06/22/2012 Normal [facility] CHEMISTRY Total Protein 7.4 6.4 - 8.4 06/22/2012 Normal [facility] CHEMISTRY A/G Ratio 0.8 0.7 - 1.6 06/22/2012 Normal [facility] CHEMISTRY Globulin 4.1 2.0 - 4.0 06/22/2012 [facility] CHEMISTRY AST 39 0 - 37 06/22/2012 [facility] CHEMISTRY Lipase Lvl 101 73 - 393 06/22/2012 Normal [facility] HEMATOLOGY Segs-Bands # 12.3 1.5 - 8.1 06/22/2012 [facility] HEMATOLOGY Lymphocytes # 0.8 1.0 - 5.5 06/22/2012 LOW [facility] HEMATOLOGY Basophils 0.1 0.0 - 1.0 06/22/2012 Normal [facility] HEMATOLOGY Monocytes # 0.6 0.0 - 0.8 06/22/2012 Normal [facility] HEMATOLOGY Eosinophils # 0.0 0.0 - 0.5 06/22/2012 Normal [facility] HEMATOLOGY Basophils # 0.0 0.0 - 0.2 06/22/2012 Normal [facility] HEMATOLOGY RBC Morph Jenny l (06/22/2012 09:00:00) 06/22/2012 Normal [facility] HEMATOLOGY Segs 89.7 45.0 - 75.0 06/22/2012 [facility] HEMATOLOGY Plt Morph Jenny l (06/22/2012 09:00:00) 06/22/2012 Normal [facility] Lymphocytes 5.6 20.0 - 40.0 06/22/2012 LOW [facility] HEMATOLOGY Monocytes 4.5 2.0 - 12.0 06/22/2012 Normal [facility] HEMATOLOGY Eosinophils 0.1 0.0 - 4.0 06/22/2012 Normal [facility] RDW 13.9 11.5 - 14.5 06/22/2012 Normal [facility] HEMATOLOGY MCHC 34.2 32.0 - 36.0 06/22/2012 Normal [facility] HEMATOLOGY Platelet 209 133 - 450 06/22/2012 Normal [facility] MPV 9.0 7.4 - 10.4 06/22/2012 Normal [facility] Hgb 13.8 12.0 - 16.0 06/22/2012 Normal [facility] Hct 40.3 36.0 - 48.0 06/22/2012 Normal [facility] MCV 93.7 81.0 - 99.0 06/22/2012 Normal [facility] MCH 32.0 27.0 - 31.0 06/22/2012 [facility] HEMATOLOGY RBC 4.30 4.20 - 5.40 06/22/2012 Normal [facility] WBC 13.8 3.7 - 10.4 06/22/2012 [facility] Pathology Reports No Data Provided for This Section Diagnostic Reports Report Value Date Source Retroperitoneal Complete US EX AM: US RETROPERITONEAL COMPLETE DATE: 01/09/2017 11:02 AM [...] within the kidneys as described above. 01/09/[address] [facility] 2 views DX EXAM: XR CHES T 2 VIEWS DATE: 05/10/2016 at 1301 hours [...] Normal. IMPRESSION: 1. No cardiopulmonary abnormality. 05/10/2016 [facility] Chest 1view DX Chest 1view DX 80 [...] IMPRESSION: 1. No radiographic evidence of acute car diopulmonary disease. SL: [id number] 04/07/2016 [facility] Chest 1view DX Patient Name: Jair ANDERSEN : 1935; Age: 80 years y/o Female MR: [id number] Study: Chest 1view DX dated 04/06/2016 Clinical Indication: Chest pain; Comparison: 03/16/2016 Cardiac and mediastinal structures are stable including tortuous thoracic aorta that contains calcification. Slight atelectasis in the left lung base laterally. No other focal infiltrates within the lungs, no edema and no pneumothorax. SL: [id number] 04/06/2016 [facility] 2 views DX EXAM: 2 view(s) of the chest. INDICATION: Hypoxemia. COMPARISON: Chest x-ray: 10/01/2015. FINDINGS: Support apparatus: None. Cardiac silhouette: Unremarkable. [place]ma: Unremarkable. Lobar consolidation: Negative. Pleural effusion: Negative. Pneumothorax: Negative. Other: Negative. Bones: Unremarkable. Other: None. IMPRESSION: 1. No acute cardiopulmonary process. 03/16/2016 [facility] wo contrast CT Patient N luciana: GEOVANI ANDERSEN : 1935; Age: 80 years y/o Female MR: [id number] * CRANIAL CT without contrast History:Generalized Weakness; [...] evidence of an acute intracranial process. SL: [id number] 10/01/2015 [facility] 1view DX CHEST RADIOGRAP H SINGLE VIEW INDICATION: Chest pain COMPARISON: Chest radiograph 09/22/2015 IMPRESSION: The lungs are underinflated. Grossly, no acute intrathoracic abnormalities are visualized. SL:16 10/01/2015 [facility] Abdomen/Pelvis wo IV contrast CT Abdomen/Pelvis [...] CT of the abdomen and pelvis. SL: [id number] 09/22/2015 [facility] 1view DX Study: Chest 1v iew DX Clinical Indication: Coughing Comparison: 02/27/2015 FINDINGS: Cardiac silhouette is normal in size. Mild left basilar atelectasis is seen. No pleural effusion or pneumothorax is noted. The osseous structures are unremarkable. IMPRESSION: Mild left basilar atelectasis SL: [id number] 09/22/2015 [facility] 1view DX CHEST RADIOGRAP H SINGLE VIEW INDICATION: Dyspnea COMPARISON: Chest radiograph 10/10/2014 IMPRESSION: No acute intrathoracic abnormalities are visualized. SL: 16 02/27/2015 [facility] Chest 1view DX EXAMINATION: [facility] 1view CLINICAL HISTORY: Chest pain Since 05/16/2014, no important interval change has occurred. The hypoinflated lungs are clear of consolidation, pleural effusion, and pneumothorax. The heart size remains normal. The thoracic aorta remains mildly tortuous. SL:17 10/10/2014 [facility] Knee 4+ views unilateral DX Le ft knee, 4 views: Exam reason: Pain and swelling. Marginal spurring is noted at the medial joint compartment space associated with slight joint space narrowing. There is no acute fracture or dislocation noted. SL:12 08/22/2014 [facility] w contrast CT EXAM: CT CHEST WITH [...] 1. No definite CT evidence of acute pulm onary embolus. 2. No focal consolidation, pleural effus ion, or pneumothorax. 3. Diffuse fatty liver infiltration. 4. Small hiatal hernia. SL: 05/16/2014 [facility] 1view HISTORY: Shortness of breath. Portable chest one view. Comparison 01/07/2013 Lungs are clear. Heart size normal. There is no pleural effusion or pneumothorax. IMPRESSION: No acute finding SL:13 05/16/2014 [facility] w contrast CT EXAM: CT CHEST WITH [...] 1. Limited study as above. No definite C T evidence of acute pulmonary embolus. 2. Mild patchy reticular nodular infiltr ate within the right lower lobe. Please correlate for atypical infection such as mycobacterium avium complex. SL: 12 01/07/2013 [facility] Chest 2 views NAME: GEOVANI ANDERSEN : [...] in the thoracic spine. SL: 14 01/07/2013 [facility] Consultation Notes No Data Provided for This Section Discharge Summaries No Data Provided for This Section History and Physicals No Data Provided for This Section Vital Signs Vital Sign Value Date Comments Source Systolic (mm Hg) 123 12/22/[facility] Diastolic (mm Hg) 69 12/22/2019 [facility] Heart Rate 74 12/22/2019 [facility] Temperature Oral (F) 98.1 F 12/22/2019 [facility] Height 154.94 cm 12/22/2019 [facility] Weight 90.727 12/22/2019 [facility] BMI Calculated 37.79 12/22/2019 [facility] Height 154.94 cm 06/25/2019 [facility] Systolic (mm Hg) 133 06/25/2019 [facility] Diastolic (mm Hg) 77 06/25/2019 [facility] Heart Rate 57 06/25/2019 [facility] Weight 94.091 06/25/2019 [facility] BMI Calculated 39.19 06/25/2019 [facility] BMI Calculated 38.01 01/06/2019 [facility] Height 157.48 cm 01/06/2019 [facility] Weight 94.273 01/06/2019 [facility] Systolic (mm Hg) 133 01/06/2019 [facility] Diastolic (mm Hg) 81 01/06/2019 [facility] Heart Rate 58 01/06/2019 [facility] Height 157.48 cm 07/08/2018 [facility] BMI Calculated 38.21 07/08/2018 [facility] Weight 94.773 07/08/2018 [facility] Systolic (mm Hg) 134 07/08/2018 [facility] Diastolic (mm Hg) 72 07/08/2018 [facility] Respitory Rate 17 07/08/2018 [facility] Heart Rate 59 07/08/2018 [facility] BMI Calculated 39.77 04/09/2018 [facility] Weight 98.636 04/09/2018 [facility] Height 157.48 cm 04/09/2018 [facility] Systolic (mm Hg) 144 04/09/2018 [facility] Diastolic (mm Hg) 70 04/09/2018 [facility] Heart Rate 52 04/09/2018 [facility] Systolic (mm Hg) 132 12/09/2017 [facility] [...] 72 04/09/2016 [facility] Respitory Rate 16 04/09/2016 [facility] Heart Rate 91 04/09/2016 [facility] Temperature Oral (F) 98.1 F 04/09/2016 [facility] Heart Rate 93 04/09/2016 [facility] Temperature Oral (F) 97.8 F 04/09/2016 [facility] Respitory Rate 16 04/09/2016 [facility] Systolic (mm Hg) 136 04/09/2016 [facility] Diastolic (mm Hg) 72 04/09/2016 [facility] Temperature Oral (F) 98.2 F 04/09/2016 [...] 54 04/07/2016 [facility] Heart Rate 90 04/07/2016 [facility] Temperature Oral (F) 98.6 F 04/07/2016 [facility] Height 157.48 cm 04/06/2016 [facility] Weight 99.091 04/06/2016 [facility] BMI Calculated 39.96 04/06/2016 [facility] Respitory Rate 18 04/06/2016 [facility] Heart Rate 78 04/06/2016 [facility] Systolic (mm Hg) 178 04/06/2016 [facility] Diastolic (mm Hg) 77 04/06/2016 [facility] Temperature Oral (F) 98.3 F 04/06/2016 [facility] Systolic (mm Hg) 156 10/01/2015 [facility] Diastolic (mm Hg) 60 10/01/2015 [facility] Respitory Rate 18 10/01/2015 [facility] Temperature Oral (F) 98.2 F 10/01/2015 [facility] Heart Rate 74 10/01/2015 [facility] Heart Rate 63 10/01/2015 [facility] Respitory Rate 21 10/01/2015 [facility] Systolic (mm Hg) 161 10/01/2015 [facility] Diastolic (mm Hg) 65 10/01/2015 [facility] Systolic (mm Hg) 166 10/01/2015 [facility] Diastolic (mm Hg) 83 10/01/2015 [facility] Weight 97.273 10/01/2015 [facility] BMI Calculated 39.22 10/01/2015 [facility] Height 157.48 cm 10/01/2015 [facility] Temperature Oral (F) 97.6 F 10/01/2015 [facility] Respitory Rate 17 10/01/2015 [facility] Heart Rate 74 10/01/2015 [facility] Temperature Oral (F) 98.0 F 09/22/2015 [facility] Respitory Rate 18 09/22/2015 [facility] Systolic (mm Hg) 150 09/22/2015 [facility] Diastolic (mm Hg) 84 09/22/2015 [facility] Respitory Rate 18 09/22/2015 [facility] Systolic (mm Hg) 144 09/22/2015 [facility] Diastolic (mm Hg) 61 09/22/2015 [facility] Systolic (mm Hg) 140 09/22/2015 [facility] Diastolic (mm Hg) 84 09/22/2015 [facility] Respitory Rate 23 09/22/2015 [facility] Height 157.48 cm 09/22/2015 [facility] BMI Calculated 39.22 09/22/2015 [facility] Weight 97.273 09/22/2015 [facility] Temperature Oral (F) 98.2 F 09/22/2015 [facility] Heart Rate 90 09/22/2015 [facility] Respitory Rate 18 05/02/2015 [facility] Systolic (mm Hg) 154 05/02/2015 [facility] Diastolic (mm Hg) 69 05/02/2015 [facility] Heart Rate 66 05/02/2015 [facility] Temperature Oral (F) 98.0 F 05/02/2015 [facility] Height 157.48 cm 05/02/2015 [facility] BMI Calculated 39.41 05/02/2015 [facility] Weight 97.727 05/02/2015 [facility] Respitory Rate 16 05/02/2015 [facility] Heart Rate 70 05/02/2015 [facility] Systolic (mm Hg) 150 05/02/2015 [facility] Diastolic (mm Hg) 66 05/02/2015 [facility] Temperature Oral (F) 97.7 F 05/02/2015 [facility] Temperature Oral (F) 98.1 F 03/01/2015 [facility] Heart Rate 108 03/01/2015 [facility] Respitory Rate 18 03/01/2015 [facility] Systolic (mm Hg) 151 03/01/2015 [facility] Diastolic (mm Hg) 51 03/01/2015 [facility] Temperature Oral (F) 98.1 F 03/01/2015 [facility] Systolic (mm Hg) 133 03/01/2015 [facility] Diastolic (mm Hg) 68 03/01/2015 [facility] Respitory Rate 18 03/01/2015 [facility] Heart Rate 66 03/01/2015 [facility] Respitory Rate 16 03/01/2015 [facility] Heart Rate 75 03/01/2015 [facility] Systolic (mm Hg) 150 03/01/2015 [facility] Diastolic (mm Hg) 69 03/01/2015 [facility] Temperature Oral (F) 97.7 F 03/01/2015 [facility] [...] 78 10/10/2014 [facility] Heart Rate 72 10/10/2014 [facility] Temperature Oral (F) 97.6 F 10/10/2014 [facility] BMI Calculated 37.39 10/10/2014 [facility] Weight 92.727 10/10/2014 [facility] Height 157.48 cm 10/10/2014 [facility] Heart Rate 70 08/23/2014 [facility] Temperature Oral (F) 98.1 F 08/23/2014 [facility] [...] 08/23/2014 [facility] Systolic (mm Hg) 163 08/23/2014 [facility] Temperature Oral (F) 98.1 F 08/22/2014 [facility] Respitory Rate 18 08/22/2014 [facility] BMI Calculated 37.94 08/22/2014 [facility] Weight 94.091 08/22/2014 [facility] Height 157.48 cm 08/22/2014 [facility] Diastolic (mm Hg) 60 05/16/2014 [facility] Respitory Rate 16 05/16/2014 [facility] Heart Rate 80 05/16/2014 [facility] Systolic (mm Hg) 159 05/16/2014 [facility] Systolic (mm Hg) 159 05/16/2014 [facility] Diastolic (mm Hg) 60 05/16/2014 [facility] Heart Rate 88 05/16/2014 [facility] Respitory Rate 16 05/16/2014 [facility] Respitory Rate 18 05/16/2014 [facility] Heart Rate 91 05/16/2014 [facility] Diastolic (mm Hg) 68 05/16/2014 [facility] Systolic (mm Hg) 148 05/16/2014 [facility] Temperature Oral (F) 98.1 F 05/16/2014 [facility] Weight 92.727 05/16/2014 [facility] BMI Calculated 37.39 05/16/2014 [facility] Height 157.48 cm 05/16/2014 [facility] Systolic (mm Hg) 160 01/09/2013 [facility] Diastolic (mm Hg) 87 01/09/2013 [facility] Respitory Rate 18 01/09/2013 [facility] Temperature Oral (F) 97.8 F 01/09/2013 [facility] Heart Rate 90 01/09/2013 [facility] Diastolic (mm Hg) 80 01/09/2013 [facility] Systolic (mm Hg) 150 01/09/2013 [facility] Respitory Rate 18 01/09/2013 [facility] Temperature Oral (F) 97.4 F 01/09/2013 [facility] Heart Rate 96 01/09/2013 [facility] Respitory Rate 18 01/09/2013 [facility] Systolic (mm Hg) 149 01/09/2013 [facility] Temperature Oral (F) 97.3 F 01/09/2013 [facility] Heart Rate 97 01/09/2013 [facility] Diastolic (mm Hg) 81 01/09/2013 [facility] Height 157.48 cm 01/08/2013 [facility] Weight 93.636 01/08/2013 [facility] Weight 90.455 01/08/2013 [facility] Height 157.48 cm 01/08/2013 [facility] Heart Rate 90 09/03/2012 [facility] Respitory Rate 20 09/03/2012 [facility] Temperature Oral (F) 98.4 F 09/03/2012 [facility] Systolic (mm Hg) 149 09/03/2012 [facility] Diastolic (mm Hg) 81 09/03/2012 [facility] Temperature Oral (F) 97.8 F 09/03/2012 [facility] Respitory Rate 20 09/03/2012 [facility] Heart Rate 78 09/03/2012 [facility] Systolic (mm Hg) 151 09/03/2012 [facility] Diastolic (mm Hg) 84 09/03/2012 [facility] Respitory Rate 16 09/03/2012 [facility] Heart Rate 86 09/03/2012 [facility] Temperature Oral (F) 97.6 F 09/03/2012 [facility] Diastolic (mm Hg) 83 09/03/2012 [facility] Systolic (mm Hg) 157 09/03/2012 [facility] Height 157.48 cm 09/02/2012 [facility] Weight 92.500 09/02/2012 [facility] Height 157.48 cm 09/02/2012 [facility] Weight 92.727 09/02/2012 [facility] Respitory Rate 20 06/26/2012 [facility] Temperature Oral (F) 97.8 F 06/26/2012 [facility] Diastolic (mm Hg) 87 06/26/2012 [facility] Heart Rate 88 06/26/2012 [facility] Systolic (mm Hg) 150 06/26/2012 [facility] Respitory Rate 18 06/26/2012 [facility] Respitory Rate 18 06/26/2012 [facility] Temperature Oral (F) 98.0 F 06/26/2012 [facility] Heart Rate 70 06/26/2012 [facility] Systolic (mm Hg) 127 06/26/2012 [facility] Diastolic (mm Hg) 82 06/26/2012 [facility] Diastolic (mm Hg) 75 06/26/2012 [facility] Systolic (mm Hg) 123 06/26/2012 [facility] Heart Rate 72 06/26/2012 [facility] Temperature Oral (F) 98.1 F 06/26/2012 [facility] Weight 95.000 06/23/2012 [facility] Height 177.80 cm 06/23/2012 [facility] Height 157.48 cm 06/22/2012 [facility] Weight 95.000 06/22/2012 [facility] Encounters Location Location Details Encounter Type Encounter Number Reason For Visit Attending Provider ADM Date DC Date Status Source [facility] Emergency [id number] ROLO GEORGE 06/22/2012 06/22/2012 Discharged [facility] Inpatient [id number] PHOEBE HERZOG 06/23/2012 06/26/2012 Discharged [facility] OU [id number] REACTIVE AIRWAY, WHEEZING, PNEUMONIA BRANDO MUKHERJEEK 09/02/2012 09/03/2012 Active [facility] Inpatient [id number] ZENOBIA RICKIE 01/08/2013 01/09/2013 Discharged [facility] AUDIT [id number] 06/22/2013 06/22/2013 [facility] ECL, Provi addy: SHERMAN,NELIDA, Status: Pen, Time: 1:30 PM [id number] 06/23/20 13 06/22/2013 [facility] [id number] Bradley Owens 05/16/2014 05/16/2014 [facility] [id number] Jaxson Portereal 08/22/2014 08/23/2014 [facility] [id number] Nikki Cortes 10/10/2014 10/10/2014 [facility] Outpatient [id number] EM ARANGO 02/14/2015 Active [facility] Inpatient [id number] Phoebe Herzog 02/27/2015 03/01/2015 [facility] [id number] Debby Glasgowr 05/02/2015 05/02/2015 [facility] Outpatient [id number] EM ARANGO 05/10/2015 Active [facility] Outpatient [id number] EM ARANGO 08/10/2015 Active [facility] [id number] Rishi Villalobostyler 09/22/2015 09/22/2015 [facility] [id number] Jaxson Morel 10/01/2015 10/01/2015 [facility] Outpatient [id number] EM NBA 11/09/2015 Active [facility] Outpatient [id number] EM ARANGO 02/08/2016 Active [facility] [place] Outpt Diag Services [id number] 19 Novembermarbella Moeller 03/16/2016 03/17/2016 [facility] Emergency [id number] Martín Burton 04/06/2016 04/07/2016 [facility] Inpatient [id number] Aviva Cruz 04/07/2016 04/09/2016 [facility] Outpatient [id number] Jarimarbella Moeller 04/16/2016 04/17/2016 [facility] Outpatient [id number] EM ARANGO 05/10/2016 Active [facility] Di[facility] [id number] Em Arango 05/10/2016 05/11/2016 [facility] Outpatient [id number] EM ARANGO 08/06/2016 Active [facility] Outpatient [id number] EM ARANGO 11/05/2016 Active [facility] [place] Out[facility] Diag Services [id number] Chaka Dewey Molina 01/09/2017 01/10/2017 [facility] [place] Outpatient [id number] EM ARANGO 02/04/2017 Active [facility] Outpatient [id number] EM ARANGO 05/07/2017 Active [facility] Phone Message [id number] 07/09/2017 07/11/2017 [facility] Internal [facility] Phone Message [id number] 07/26/2017 07/28/2017 [facility] Outpatient [id number] EM ARANGO 08/05/2017 Active [facility] Outpatient [id number] Em Arango 08/05/2017 08/06/2017 [facility] Phone Message [id number] 09/09/2017 09/11/2017 [facility] Phone Message [id number] 10/28/2017 10/30/2017 [facility] Phone Message [id number] 11/08/2017 11/10/2017 [facility] Phone Message [id number] 11/12/2017 11/14/2017 [facility] Phone Message [id number] 11/20/2017 11/22/2017 [facility] Outpatient [id number] EM ARANGO 12/09/2017 Active [facility] Phone Message [id number] 12/09/2017 12/11/2017 [facility] Outpatient [id number] Em Arango 12/09/2017 12/10/2017 [facility] Phone Message [id number] 12/18/2017 12/20/2017 [facility] Internal [facility] Phone Message [id number] 03/07/2018 03/09/2018 [facility] Outpatient [id number] EM ARANGO 03/13/2018 Active [facility] Ambulatory Pre-Reg [id number] Em Shiver 03/13/2018 03/13/2018 [facility] Outpatient [id number] EM VIRGIEVER 04/09/2018 Active [facility] Outpatient [id number] Em Shiver 04/09/2018 04/10/2018 [facility] Outpatient [id number] EM VIRGIEVER 05/23/2018 Active [facility] Ambulatory Pre-Reg [id number] Em Virgiever 05/23/2018 05/23/2018 [facility] Internal [facility] Phone Message [id number] 06/03/2018 06/05/2018 [facility] Phone Message [id number] 06/13/2018 06/15/2018 [facility] Outpatient [id number] EM NBA 07/08/2018 Active [facility] Outpatient [id number] Em Nba 07/08/2018 07/09/2018 [facility] Internal [facility] Phone Message [id number] 07/09/2018 07/11/2018 [facility] Internal [facility] Phone Message [id number] 08/06/2018 08/08/2018 [facility] Phone Message [id number] 08/29/2018 08/31/2018 [facility] Phone Message [id number] 09/22/2018 09/24/2018 [facility] Phone Message [id number] 10/07/2018 10/09/2018 [facility] Outpatient [id number] Em Arango 01/06/2019 Active [facility] Outpatient [id number] Em Arango 01/06/2019 01/07/2019 [facility] Internal [facility] Phone Message [id number] 01/30/2019 02/01/2019 [facility] Internal [facility] Phone Message [id number] 05/04/2019 05/06/2019 [facility] Internal [facility] Phone Message [id number] 05/11/2019 05/13/2019 [facility] Phone Message [id number] 05/25/2019 05/27/2019 [facility] Phone Message [id number] 05/25/2019 05/27/2019 [facility] Outpatient [id number] Em Arango 06/25/2019 Active [facility] Outpatient [id number] Em Arango 06/25/2019 06/26/2019 [facility] Phone Message [id number] 07/08/2019 07/10/2019 [facility] Phone Message [id number] 08/03/2019 08/05/2019 [facility] Phone Message [id number] 08/14/2019 08/16/2019 [facility] Phone Message [id number] 08/14/2019 08/16/2019 [facility] Phone Message [id number] 08/14/2019 08/16/2019 [facility] Phone Message [id number] 08/17/2019 08/19/2019 [facility] Phone Message [id number] 08/27/2019 08/29/2019 [facility] Phone Message [id number] 10/05/2019 10/07/2019 [facility] Phone Message [id number] 12/15/2019 12/17/2019 [facility] Outpatient [id number] Em Arango 12/22/2019 [facility] [id number] Em Arango 12/22/2019 Active [facility] Ambulatory Pre-Reg [id number] Em Arango 12/22/2019 12/22/2019 [facility] Outpatient [id number] Em Arango 12/22/2019 12/23/2019 [facility] Phone Message [id number] 02/09/2020 02/11/2020 [facility] Phone Message [id number] 03/29/2020 03/31/2020 [facility] Internal Medicine TM Phone Message [id number] 03/29/2020 03/31/2020 Medical [facility] Internal Medicine [facility] [place] [place] Phone Message [id number] 04/28/2020 04/30/2020 Medical [facility] Internal Medicine [facility] [place] [place] Phone Message [id number] 05/03/2020 05/05/2020 Medical [facility] Outpatient [id number] Em Garvinindira 06/23/2020 Active [facility] Procedures Procedure Code Date Perfomer Comments Source Eye examination<sup>1</sup> 36 000956 11/19/2017 Diabetic Eye Exam: 11/2017-cataract [facility] Hysterectomy [id number] 06/24/2017 [facility] Eye examination<sup>2</sup> 36 049960 11/16/2016 Diabetic Eye Exam-Normal exam. Medical [facility] Arthroscopy of knee with meniscus repair [id number] Medical [facility], SELAM Jovani, [facility] [place],[facility] Cataract surgery [id number] [facility], SARAH Hahn, [facility] [place],[facility] Hernia repair [id number] [facility], SELAM Jovani, [facility] [place],[facility], [facility] [place] Arthroscopy of knee with meniscus repair [id number] [facility] Cataract surgery [id number] [facility] Hernia repair [id number] [facility] Diabetic retinal eye exam<sup>3</sup> [id number] 08/2018 - normal [facility] Diabetic retinal eye exam<sup>2</sup> [id number] 08/2018 - normal [facility] Assessment and Plan Assessment and Plan Date Source Extracted from:Title: Clinical Document Author: Aviva Cruz MD Date: 04/09/16 [facility] Hospitalist Discharge Summary [facility] Aviva Cruz MD Attending Physician: Aviva Cruz MD Date of Admission:04/07/16 Date of Discharge: 04/09/16 Discharge diagnoses: E. coli UTI (N39.0) E. coli septicemia (A41.51) DM (diabetes mellitus) (E11.9) HLD (hyperlipidemia) (E78.5) CKD (chronic kidney disease) stage 3, GFR 30-59 ml/min (N18.3) COPD (chronic obstructive pulmonary disease) (J44.9) Hepatic steatosis (K76.0) Physical exam Vitals Tmp(F) Pulse BP RR SpO2 FIO2 04/09 11:36 97.8 93 136/72 1 6 97 --- 04/09 08:00 98.2 71 130/72 1 6 92 --- 04/09 07:07 ---- --- ----- 1 6 93 --- 04/09 04:57 97.9 85 112/64 1 6 93 --- 04/09 00:27 97.9 76 118/65 1 8 93 --- 24 Hr Tmax: 98.2F (36.78c) at 04/09 08:0 0 Vital Signs are the last 5 in the [...] no sensory or motor deficits Hospital course: 80y/o W w/ DM II, HTN, HLD, CKD III, 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 Found w/ sepsis (leukopenia, fever, tachy on admit) 2/2 cystitis and Bacteremia (Bcx growing GNRs). Please see H&P for further details. Patient was admitted for IV hydration and antibiotics thereapy. Patient was empirically started on merop enem given hx of recurrent UTIs and failed ppx regimen. Blood and Ucx collected and admission subsequently grew pansensitive E.coli. ID was consulted and recc 14-day course of PO antibiotics given good response of E. coli to PO abx in setting of bacteremia. In addition, patient symptoms improved during hospital course. At the time discharge patient was afebrile, HDS, and ambulating freely w/o limitations.. Disposition: home Discharge condition: improved Activity: as tolerated Diet: heart healthy/ADA Followup: Please call your primary care physician for followup w/in 1week. Please also call Dr. Shoemaker for infectious disease followup w/in 1-2weeks. Discharge medication reconciliation: please see discharge reconciliation form Discharge time spent: >45mins [facility] Providers Internal Medicine, Hospitalist Aviva Cruz MD Extracted from:Title: Clinical Document Author: Pau Shoemaker MD Date: 04/09/16 [facility] INFECTIOUS DISEASE CONSULTATION NOTE Pau Shoemaker M.D. Robert Fajardo M.D. REFERRING PHYSICIAN: Dr. Avvia Cruz REASON FOR CONSULTATION: UTI CHIEF COMPLAINT: [...] Grandparent: Heart disease; Liver cancer PHYSICAL EXAMINATION: Vitals Tmp(F) Pulse BP RR SpO2 FIO2 04/09 11:36 97.8 93 136/72 1 6 97 --- 04/09 08:00 98.2 71 130/72 1 6 92 --- 04/09 07:07 ---- --- ----- 1 6 93 --- 04/09 04:57 97.9 85 112/64 1 6 93 --- 04/09 00:27 97.9 76 118/65 1 8 93 --- 24 Hr Tmax: 98.2F (36.78c) at 04/09 08:0 0 Vital Signs are the last 5 in the [...] Tubes, and Drains: 04/07/2016 06:35 Peripheral Lines: Antec ubital Right 20 gauge Over the needle catheter MEDICATIONS: Scheduled Meds (9): 04/07/16 aspirin (aspirin 81 mg tablet, chewable) 81 mg PO Daily 04/07/16 atorvastatin 10 mg PO Bedtime 04/09/16 azelastine nasal (azelastine na stormy 0.1% (137 mcg/inh) spray) 1 inhalation NASAL Bedtime 04/08/16 docusate-senna (docusate-senna 50 mg-8.6 mg oral tablet) 1 tab PO BID 04/07/16 heparin 5,000 unit SUB-Q Q8H 04/07/16 insulin detemir 35 unit SUB-Q B edtime 04/07/16 meropenem + sodium chloride 0.9 % INJ 100 mL 500 mg IVPB ABXQ8H 33.33 ml/hr 04/07/16 montelukast (Singulair) 4 mg PO QPM 04/07/16 pantoprazole 40 mg PO Before Di nner ALLERGIES: Allergies (1) Active Reaction NKDA None documented LABORATORY (Reviewed): Labs (Last four charted values) WBC H 10.5 (APR 09) H 15.8 (APR 08) L 3.6 (APR 07) Hgb L 11.0 (APR 09) L 11.5 (MAR 18) 12.1 (APR 07) Hct L 33.0 (APR 09) L 35.9 (MAR 18) 37.5 (APR 07) Plt 199 (APR 09) 205 (APR 08) 211 (APR 07) 195 (APR 07) Na 143 (APR 09) 140 (MAR 18) 139 (APR 07) K 4.4 (APR 09) 4.6 (APR 08) 4.3 (APR 07) CO2 L 17 (APR 09) L 19 (APR 08) 24 (APR 07) Cl H 115 (APR 09) H 111 (MAR 18) H 110 (APR 07) Cr H 1.59 (APR 09) H 2.16 (APR 08) H 1.88 (APR 07) H 1.79 (APR 07) BUN H 42 (APR 09) H 54 (MAR 18) H 45 (APR 07) Glucose Random H 135 (APR 09) H 195 (MAR 18) H 117 (APR 07) Mg 2.0 (APR 09) 2.0 (APR 08) Phos 3.1 (APR 09) 3.5 (APR 08) Ca L 8.2 (APR 09) L 8.2 (MAR 18) 9.0 (APR 07) PT 13.6 (APR 07) INR 1.01 (APR 07) PTT 25.2 (APR 07) Troponin <0.02 (APR 07) Total CK 91 (APR 07) Alk Phos: 142 High 04/07/16 07:32:23 A/G Ratio: 0.9 04/07/16 07:32:23 ALT: 48 04/07/16 07:32:23 Albumin Lvl: 3.3 Low 04/07/16 07:32:23 Bili Total: 1.0 04/07/16 07:32:23 Total Protein: 6.9 04/07/16 07:32:23 Globulin: 3.6 04/07/16 07:32:23 AST: 56 High 04/07/16 07:32:23 MICROBIOLOGY (Reviewed): Urine: E.coli Blood: E.coli IMAGING (Reviewed): CXR: No radiographic evidence of acute cardiopulmonary disease. ASSESSMENT and PLAN: 80 yo WF presents with: * [...] follow-up in ID clinic upon DC. Extracted from:Title: Clinical Document Author: Aviva Cruz MD Date: 04/08/16 [facility] Daily Progress Note [facility] Aviva Cruz MD CC: f/u sepsis 2/2 GNR cystitis w/ bacteremia SUBJECTIVE: Patient seen and examined, events reviewed. Feels much better today. Ambulated back and forth to restroom w/o difficulty. Denies CP, SOB, palpitations, N/V/Diarrhea, Dysuria. OBJECTIVE: Vital Tmp(F) Pulse BP RR SpO2 FIO2 04/08 08:22 ---- --- ----- 2 0 92 21% 04/08 08:12 98.1 78 118/51 1 8 91 --- 04/08 03:25 97.8 65 108/58 1 7 91 --- 04/07 23:55 98 72 97/59 17 90 --- 04/07 20:26 ---- --- ----- 1 8 92 21% 24 Hr Tmax: 98.4F (36.89c) at 04/07 19:1 4 Vital Signs are the last 5 in the past 48 hours. I&O Record In Out Bal 04/07 24hr Tot 1500 525 975 04/06 24hr Tot 800 0 800 General - NAD, [...] Labs (Last four charted values) WBC L 3.6 (APR 07) Hgb 12.1 (APR 07) Hct 37.5 (APR 07) Plt 211 (APR 07) 195 (APR 07) Na 139 (APR 07) K 4.3 (APR 07) CO2 24 (APR 07) Cl H 110 (APR 07) Cr H 1.88 (APR 07) H 1.79 (APR 07) BUN H 45 (APR 07) Glucose Random H 117 (APR 07) Ca 9.0 (APR 07) PT 13.6 (APR 07) INR 1.01 (APR 07) PTT 25.2 (APR 07) Troponin <0.02 (APR 07) Total CK 91 (APR 07) Medications (20) Active Scheduled: (7) aspirin [...] 4 mg 2 mL, IVP, Q6H ASSESSMENT and PLAN: 80y/o W w/ DM II, HTN, HLD, CKD III, 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 Found w/ sepsis (leukopenia, fever, tachy on admit) 2/2 cystitis and Bacteremia (Bcx growing GNRs). Currently afebrile and HDS, but BP borderline. Plan: -Continue broad-spect IV abx -Repeat Bcx ordered today -Bolus 2L NS today and continue on maint enance fluids -Continue to hold antihypertensives in s etting of GN sepsis -Continue basal insulin, SSI and accuche cks -Monitor renal fx daily -No evidece of COPD exacerbation at this time: continue home med regimen -Lyla med for other chronic medical pro blems -Diet: ADA/heart healthy -DVT ppx: heparin -GI ppx: not indicated -Dispo: pending continued HDS and specia tion of GNR 04/09/2016 [facility] Extracted from:Title: Clinical Document Author: Phoebe Herzog MD Date: 02/27/15 [facility] Daily Progress Note [facility] Phoebe Herzog MD SUBJECTIVE: pt seen and examined, events noted c/o shortness of breath onset tonight. Pt states she was sleeping when symptoms started and she started coughing. Pt reports she was on Azithromycin with no relief and was recently started on Azithromycin again. Pt denies nausea, vomiting, or chest pain. OBJECTIVE: Vitals and Temp: Vitals Tmp(F) Pulse BP RR SpO2 FIO2 02/27 08:18 97.7 89 167/78 1 8 96 --- 02/27 06:58 ---- --- ----- 1 6 97 2.0L/m 02/27 06:57 ---- --- ----- - - 97 2.0L/m 02/27 06:44 97.8 81 182/82 1 8 96 --- 02/27 05:55 98.5 74 175/73 1 8 99 3.0L/m 24 Hr Tmax: 98.5F (36.94c) at 02/27 05:5 5 Vital Signs are the last 5 in the past 48 hours. Labs (Last four charted values) WBC 9.6 (FEB 27) Hgb 14.7 (FEB 27) Hct 43.9 (FEB 27) Plt 289 (FEB 27) Na 143 (FEB 27) K 4.1 (FEB 27) CO2 L 22 (FEB 27) Cl H 111 (FEB 27) Cr 1.3 (FEB 27) BUN H 34 (FEB 27) Glucose Random H 178 (FEB 27) Ca 9.0 (FEB 27) PT 12.5 (FEB 27) INR 0.94 (FEB 27) PTT H 38.0 (FEB 27) Troponin <0.02 (FEB 27) <0.02 (FEB 27) CK MB 1.5 (FEB 27) 0.7 (FEB 27) Total CK 96 (FEB 27) 81 (FEB 27) ASSESSMENT and EXAM: General: in no apparent distress at [...] Oriented X 3. No motor deficit. DIAGNOSES and PROBLEMS: Bronchitis. Acute exacerbation of COPD. dehydration. DM II uncontrolled PLAN and TREATMENT: cont IV Abx cont IV steroids [...] SUCCinate), (Completed) olmesartan (Benicar) Continuous Infusions: None 03/01/2015 [facility] Plan of Care No Data Provided for This Section Social History Social History Date Source Social History TypeResponse Alcohol Never Employment/School Status: Employed. 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 Other: Maritial Status: Pets: none,Children: [address]ch 6 months ago Surrogate Decision Maker: herself,.1 Exercise Exercise duration: 0. Sexual Last Pap Smear LMP: Hysterectomy. Substance Abuse Use: None. Smoking Status Never smoker; Exposure to Tobacco Smoke None; Cigarette Smoking Last 365 Days No; Reg Smoking Cessation Counseling No entered on: 12/22/19 1Last Appt: February to see Dr. Finch. 08/06/2016 [facility] Social History TypeResponse Substance Abuse Use: None. Exercise Exercise duration: 0. Employment/School Status: Employed. 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 Other: Maritial Status: Pets: none,Children: [address] Finch 6 months ago Surrogate Decision Maker: herself,.1 Alcohol Never Smoking Status Never smoker; Exposure to Tobacco Smoke None; Cigarette Smoking Last 365 Days No; Reg Smoking Cessation Counseling No 1Last Appt: February to see Dr. Finch. 02/14/2015 [facility] Social History TypeResponse Substance Abuse Use: None. Exercise Exercise duration: 0. Employment/School Status: Employed. 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 Other: Maritial Status: Pets: none,Children: [address] Finch 6 months ago Surrogate Decision Maker: herself,.1 Alcohol Never Smoking Status Never smoker; Exposure to Tobacco Smoke None; Cigarette Smoking Last 365 Days No; Reg Smoking Cessation Counseling No 1Last Appt: February to see Dr. Finch. 02/14/2015 [facility] Social History TypeResponse Substance Abuse Use: None. Exercise Exercise duration: 0. Employment/School Status: Employed. 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 Other: Maritial Status: Pets: none,Children: [address] Finch 6 months ago Surrogate Decision Maker: herself,.1 Alcohol Never Smoking Status Never smoker; Exposure to Tobacco Smoke None; Cigarette Smoking Last 365 Days No; Reg Smoking Cessation Counseling No 1Last Appt: February to see Dr. Finch. 02/14/2015 [facility] Social History TypeResponse Substance Abuse Use: None. Exercise Exercise duration: 0. Employment/School Status: Employed. 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 Other: Maritial Status: Pets: none,Children: [address] Finch 6 months ago Surrogate Decision Maker: herself,.1 Alcohol Never Smoking Status Never smoker; Exposure to Tobacco Smoke None; Cigarette Smoking Last 365 Days No; Reg Smoking Cessation Counseling No 1Last Appt: February to see Dr. Finch. 02/14/2015 [facility] Marital History - (Active ) Tobacco Non-user (Active) Being A Social Drinker (Active) 06/22/2013 [facility] Family History Value Date S ource Paternal history of Hypertension (V17.49 ); (Active) Paternal history of Stroke Syndrome (V17.1); (Active) Paternal history of Diabetes Mellitus (V18.0); (Active) Maternal history of Leukemia (V16.6); (Active) 06/22/2013 [facility] Advance Directives Order Name Results Value Date Source Advance Directives Advance Dir ectives No Advance Directives available. 06/22/2013 [facility] Functional Status No Data Provided for This Section
--- OUTSIDE RECORDS SUMMARY | 2020-05-10 09:29 | XMS REPORT | Continuity of Care Document ---
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 Attphys Unavailable Artemio HARTMANN Attphys Unavailable MENA WINKLER M.D. Attphys Unavailable Artemio Hartmann MD Attphys Kasia Hansen Attphys Marina Rasheed MD Attphys Kasia Mcfarland MD. Steven Attphys TERI YUSUF P.A. Attphys Unavailable Milton MADRID Attphys Unavailable JUAN LUIS ROA M.D. Attphys Unavailable Thomas RODRIGUEZ Attphys Unavailable MANEEYISELE, Robin BROWNING Attphys Unavailable Fiona GARCIA Attphys Unavailable RACHEL PENNY M.D. Attphys Unavailable NATALIA TAPIA M.D. Attphys Unavailable Mis KAHN Attphys Unavailable JACKSON MARTINEZ M.D. Attphys Unavailable Alfredo Molina Attphys ELVI CURRAN, JANET Attphys Unavailable EB MCCLELLAND NP Attphys Unavailable Sajan, Delgadoulal Jair Attphys Apurva Cruz Attphys Mirtha Burton Attphys JOESPH SUN M.D. Attphys Unavailable Morel, Nadeem Jaxson Attphys [phone] Rishi Richards Attphys LmDebby hatch Attphys Mougouris, Taso Attphys AlessiaIvanh Cat Attphys Martín Owens Attphys STEVEN MCFARLAND Admphys Unavailable Sajan, Delgadoulal Jair Admphys Apurva Cruz Admphys Moalexanderis, Taso Admphys Payers Payer Name Policy Type Policy Number Effective Date Expiration Date Yousuf cameronneto MEDICAREMEDICARE A [id number] 1999-PresentMedicare [id number] 1998 00:00:[address] [facility] OTHER-COMMERCIALGENERIC [id number] 2002-Present [id number] 2002 00:00:00 [facility] MEDICARE PART A AND B [id number] 1998 00:00:00 [facility] [id number] 2002 00:00:00 MEDICAREMEDICARE PART A AND [id number] 1998-[place] [id number] 1998 00:00:00 [facility] [employer] [id number]/07/2002-PresentComm ercial [id number] 2002 00:00:00 [facility] [id number] 2002 00:00:00 [facility] Medicare A & B [id number] 1998 00:00:00 [facility] Problems Condition Name Condition Details Condition Category Status Onset Date Resolution Date Last Treatment Date Treating Clinician Comments Source Intractable back pain Intractable back pain Disease Active 202 00:00:00 Al gee Renal insufficiency Renal insufficiency Disease Active 2019-05-30 [facility] Fat[facility] Disease Active 2019-03-20 00:00:00 MD Rios Liver fibrosis Liver fibrosis Disease Active 2019-01-29 00:00:00 [facility] Endometrial cancer Endometrial cancer Disease Active 2018-07-02 00:00: 00 [facility] Slow transit constipation Slow transit constipation Disease Ac tive 2018-06-10 00:00:00 MD Rios Chronic kidney disease Chronic kidney disease Disease Active 2018-06-07 00:00:00 MD Rios Generalized abdominal pain Generalized abdominal pain Disease Active 2018-06-06 00:00:00 MD Rios Cancer screening Cancer screening Disease Active 2018-04-09 00:00:00 [facility] Degenerative lumbar spinal stenosis Degenerative lumbar spinal s tenosis Disease Active 2017-05-23 00:00:00 MD Pauline gibson Malignant neoplasm of endometrium Malignant neoplasm of endometr ium Disease Active 2017-05-17 00:00:00 Overview : Added automatically from request for surgery [id number] MD Rios Endometrium thickened Endometrium thickened Disease Active 201 01-27-25 00:00:00 Overview: Added automatically fr om request for surgery [id number] MD Rios Paroxysmal atrial fibrillation Paroxysmal atrial fibrillation Disea se Active 2017-04-12 00:00:00 MD Kuo son Type 2 diabetes mellitus well controlled Type 2 diabet es mellitus well controlled Disease Active 2017-04-12 00:00:00 Kasia Rios Essential hypertension Essential hypertension Disease Active 2017-04-12 00:00:00 MD Rios Morbid (severe) obesity due to excess calories Morbid (severe) obesity due to excess calories Disease Active 2017-04-12 00:00:00 MD Rios Hypercholesterolemia Hypercholesterolemia Disease Active 00:00:00 MD Rios Postmenopausal bleeding Postmenopausal bleeding Disease Active 2017-04-09 00:00:00 MD Rios Fatty liver Fatty liver Disease Active 2017-04-09 00:00:00 MD Rios Gout Gout Disease Active 2017-04-09 00:00:00 MD Rios Hypertension Hypertension Disease Active 2017-04-09 00:00:00 MD Rios Osteoporosis Osteoporosis Disease Active 2017-04-09 00:00:00 MD Rios Cholelithiasis without obstruction Cholelithiasis without obstru ction Disease Active 2017-04-09 00:00:00 MD Pauline gibson LABS LABS Active 04/16/2016 [facility] Active 2016-04-16 10:45:00 2016-04-16 12:32:00 Balbina Hahn Dyspnea Dyspnea Disease Active 2016-04-10 00:00:00 Al Veliz UROSEPSIS, CHRONIC KIDNEY DISEASE UROSEPSIS, CHRONIC KIDNEY DISEASE Active 04/07/2016 [facility] Active 2016-04-07 00:00:00 2016-04-10 14:01:00 Balbina Hahn FEVER FEVE R Active 04/07/2016 [facility] Active 2016-04-07 00:00:00 2016-04-07 06:37:00 Balbina Hahn ABN LABS ABN LABS Active 04/06/2016 [facility] Active 2016-04-06 00:00:00 2016-04-06 13:48:00 Balbina Hahn WEAKNESS WEAK NESS Active 10/01/2015 [facility] Active 2015-10-01 00:00:00 2015-10-01 08:40:00 Balbina Hahn BLOOD IN URINE BLOO D IN URINE Active 09/22/2015 [facility] Active 2015-09-22 00:00:00 2015-09-22 11:11:00 [facility] EYE REDNESS/EYE PAIN EYE REDNESS/EYE PAIN Active 05/02/2015 [facility] Active 2015-05-02 00:00:00 2015-05-02 14:35:00 [facility] AECOPD, BRONCHITIS AECO PD, BRONCHITIS Active 02/26/2015 [facility] Active 2015-02-26 00:00:00 2015-03-01 10:46:00 [facility] S.O.B S.O. B Active 02/26/2015 [facility] Active 2015-02-26 00:00:00 2015-02-27 02:18:00 [facility] CONGESTION SCOTTIE ESTION Active 10/10/2014 [facility] Active 2014-10-10 00:00:00 2014-10-10 11:50:00 [facility] LEG SWELLING LEG SWELLING Active 08/22/2014 [facility] Active 2014-08-22 00:00:00 2014-08-22 20:14:00 [facility] CONGESTED SCOTTIE ESTED Active 05/16/2014 [facility] Active 2014-05-16 00:00:00 2014-05-16 12:44:00 [facility] Hyperlipidemia Hyperlipidemia Disease Active 2013-02-04 00:00:00 Last Assessment & Plan: Treated with atorvastatin. From a liver standpoint there is no contraindication for the continued use of cholesterol lowering agents including statins if deemed necessary. Optimal control of the hyperlipidemia will be essential to help prevent the accelerated progression of her liver disease. Continued monitoring and management will be deferred to her treating physician. [facility] Abnormal liver function test Abnormal liver function test Disease Active 2013-02-04 00:00:00 Last Assessm ent & Plan: The patient's liver test abnormalities are likely related to fatty liver disease. However, a comprehensive evaluation will be completed to assess for metabolic, viral, aroldo ic, and autoimmune liver diseases to detect alternative etiologies and all comorbid conditions affecting hepatic function. The alkaline phosphatase is also disproportionately abnormal and therefore a GGT will be requested to exclude any extrahepatic source(ie bone). If it remains abnormal further testing including possibly and MRCP to assess bile duct anatomy will considered. [facility] Obesity Obesity Disease Active 2013-02-04 00:00:00 Last Assessment & Plan: Current weight 199 [...] eliminating a risk factor for fatty liver. [facility] Immunity status testing Immunity status testing Disease Active 2013-02-04 00:00:00 Last Assessment & Plan: All patients with chronic liver disease, regardless of etiology, should be immunized to prevent hepatitis A and hepatitis B if they are not already immune. We will test for immunity to both viruses - vaccine recommendations will follow. [facility] PNEUMONIA,DYSPNEA PNEU MONIA,DYSPNEA Active 01/07/2013 [facility] Active 2013-01-07 08:00:00 2013-01-09 13:32:00 [facility] SHORTNESS OF BREATH SHOR TNESS OF BREATH Active 09/02/2012 [facility] Active 2012-09-02 00:00:00 2012-09-02 13:40:00 [facility] REACTIVE AIRWAY, WHEEZING, PNEUMONIA REACTIVE AIRWAY, WHEEZING, PNEUMONIA Active 09/02/2012 [facility] Ac tive 2012-09-02 00:00:00 2012-09-04 09:02:00 [facility] [place] FEVER,UTI FEVE R,UTI Active 06/23/2012 [facility] Active 2012-06-23 00:00:00 2012-06-25 09:04:00 [facility] RE-VISIT RE-V ISIT Active 06/23/2012 [facility] Active 2012-06-23 00:00:00 2012-06-23 19:05:00 [facility] SICK SICK Active 06/22/2012 [facility] Active 2012-06-22 05:00:00 2012-06-22 09:24:00 [facility] Vitamin D deficiency (disorder) Vitamin D deficiency (disorder) Active 04/16/2011 Problem 05/07/2020 Data migrated from [facility] on 12/20/14. [facility], SARAH Hahn, SARAH Ricketts,[facility] [place] Problem Active 2011-04-16 00:00:00 2020-05-07 00:19:13 Balbina Hahn Hyperlipidemia (disorder) Hype rlipidemia (disorder) Active 08/03/2010 Problem 05/07/2020 Data migrated from [employer] on 12/20/14. [facility], SARAH Hahn, SARAH Ricketts, [facility] [place] Problem Active 2010-08-03 00:00:00 2020-05-07 00:19:13 Balbina Hahn Obesity (disorder) Obes ity (disorder) Active 08/03/2010 Problem 05/07/2020 Data migrated from [employer] on 12/20/14. [facility], SARAH Hahn, SARAH Ricketts,[facility], [facility] [place] Problem Active 2010-08-03 00:00:00 2020-05-07 00:19:13 emomague Hahn Osteoporosis (disorder) Oste oporosis (disorder) Active 08/03/2010 Problem 05/07/2020 Data migrated from [employer] on 12/20/14. [facility], SARAH Hahn, SARAH Ricketts,[facility], [facility] [place] Problem Active 2010-08-03 00:00:00 2020-05-07 00:19:13 Balbina Hahn History of malignant neoplasm of endometrium History o f malignant neoplasm of endometrium Problem Resolved [facility] History of Acute cystitis with hematuria History of Ac emilie cystitis with hematuria Problem Resolved [facility] History of Acute pharyngitis due to other specified or ganisms History of Acute pharyngitis due to other specified organisms Problem Resolved [facility] History of essential hypertension History of essential hypertens ion Problem Active [facility] History of contact dermatitis History of contact dermatitis Problem Resolved [facility] History of Fatty liver History of Fatty liver Problem Resolved [facility] History of hematuria History of hematuria Problem Resolved [facility] History of herpes zoster History of herpes zoster Problem Resolved [facility] History of Periorbital ecchymosis of right eye History of Periorbital ecchymosis of right eye Problem Resolved [facility] History of Sepsis due to Escherichia coli History of S epsis due to Escherichia coli Problem Resolved [facility] History of Skin candidiasis History of Skin candidiasis Problem Resolved [facility] History of Symptoms of upper respiratory infection (UR I) History of Symptoms of upper respiratory infection (URI) Problem Resolved [facility] History of urinary frequency History of urinary frequency Problem Re solved [facility] Personal history of urinary tract infection Personal h istory of urinary tract infection Problem Resolved [facility] History of hyperlipidemia History of hyperlipidemia Problem Active [facility] Venous stasis Venous stasis Problem Active [facility] Spinal stenosis Spinal stenosis Problem Active [facility] Non-smoker Non-smoker Problem Active [facility] Advance directive discussed with patient Advance direc tive discussed with patient Problem Active [facility] At low risk for fall At low risk for fall Problem Active [facility] Depression screening negative Depression screening negative Problem Active [facility] Need for pneumococcal vaccination Need for pneumococcal vaccinat ion Problem Active [facility] Chronic anticoagulation Chronic anticoagulation Problem Active [facility] 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 Problem Active [facility] Persistent atrial fibrillation Persistent atrial fibrillation Problem Active [facility] BMI 39.0-39.9,adult BMI 39.0-39.9,adult Problem Active [facility] Gout Gout Problem Active [facility] Chronic obstructive pulmonary disease, 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 Chronic obstructive pulmonary disease, unspecified COPD type Problem Active [facility] Diabetes mellitus Diabetes mellitus Problem Active [facility] Urinary incontinence Urinary incontinence Problem Active [facility] Lumbar spinal stenosis Lumbar spinal stenosis Problem Active [facility] Endometrial cancer, grade I Endometrial cancer, grade I Problem Active [facility] Fatigue Fatigue Problem Active [facility] Hospital discharge follow-up Hospital discharge follow-up Problem Active [facility] Septicemia Septicemia Problem Active [facility] Closed fracture of sacrum and coccyx, initial encounte r Closed fracture of sacrum and coccyx, initial encounter Problem Active [facility] UTI symptoms UTI symptoms Problem Active [facility] Compression fracture of L2 vertebra with routine heali ng, subsequent encounter Compression fracture of L2 vertebra with routine healing, subsequent encounter Problem Active [facility] CKD (chronic kidney disease), stage III CKD (chronic kidney disease), stage III Problem Active [facility] Blepharitis of lower eyelids of both eyes, unspecified type Blepharitis of lower eyelids of both eyes, unspecified type Problem Active [facility] Arthritis (disorder) Arth ritis (disorder) Resolved Problem 05/07/2020 [facility], SARAH Han[facility], [facility] [place], [facility] [place] Problem Resolved 2020-05-07 00:19:13 Balbina Hahn Varicella (disorder) Vari ayah (disorder) Resolved Problem 05/07/2020 [facility], SARAH Hahn, [facility] [place], [facility] [place] Problem Resolved 2020-05-07 00:19:13 Balbina Hahn Chronic obstructive lung disease (disorder) Chronic obstructive lung disease (disorder) Resolved Problem 05/07/2020 [facility], SARAH Hahn, [facility] [place], [facility] [place] Problem Resolved 2020-05-07 00:19:13 Benjaminor jasen Hahn Diabetes mellitus (disorder) D iabetes mellitus (disorder) Resolved Problem 05/07/2020 [facility], SARAH Hahn, [facility] [place],[facility], [facility] [place] Problem Resolved 2020-05-07 00:19:13 [facility] Pneumonia (disorder) Pneu monia (disorder) Resolved Problem 05/07/2020 [facility], SARAH Hahn, [facility] [place],[facility], [facility] [place] Problem Resolved 2020-05-07 00:19:13 [facility] Peptic ulcer (disorder) Pept ic ulcer (disorder) Resolved Problem 05/07/2020 [facility], SARAH Hahn, [facility] [place],[facility], [facility] [place] Problem Resolved 2020-05-07 00:19:13 [facility] Arthritis Arth ritis Resolved Problem 01/11/2013 [facility] Problem Resolved 2013-01-11 21:18:03 wayne Hahn Pneumonia Pneu monia Resolved Problem 01/11/2013 [facility] Problem Resolved 2013-01-11 21:18:03 M wayne Hahn Decreased vitamin D (finding) Decreased vitamin D (finding) Active Problem 05/07/2020 [facility], SARAH Hahn, [facility] [place], [facility] [place] Problem Active 2020-05-07 00: 19:13 Balbina Hahn History of urinary tract infection (situation) History of urinary tract infection (situation) Active Problem 05/07/2020 [facility] Problem Active 2020-05-07 00:19:13 Balbina Hahn Hypernatremia (disorder) Hype rnatremia (disorder) Active Problem 05/07/2020 [facility] Problem Active 2020-05-07 00: 19:13 Balbina Hahn Mixed hyperlipidemia (disorder) Mixed hyperlipidemia (disorder) Active Problem 05/07/2020 [facility], SARAH Hahn, [facility] [place], [facility] [place] Problem Active 2020-05-07 00: 19:13 Balbina Hahn Morbid obesity (disorder) Morb id obesity (disorder) Active Problem 05/07/2020 [facility], SARAH Hahn, [facility] [place], [facility] [place] Problem Active 2020-05-07 00:19:13 Balbina Hahn Steatosis of liver (disorder) Steatosis of liver (disorder) Active Problem 05/07/2020 Data m igrated from [facility] on 12/20/14. [facility], SARAH Hahn, [facility] [place], [facility] [place] Problem Active 2020-05-07 00:19:13 Balbina Hahn Subclinical hypothyroidism (disorder) Subclinical hypothyroidism (disorder) Active Problem 05/07/2020 [facility] Problem Active 2020-05-07 00:19:13 Jessy Hahn Diabetes mellitus type 2 in obese (disorder) Diabetes mellitus type 2 in obese (disorder) Active Problem 05/07/2020 [facility], SARAH Hahn, [facility] [place],[facility], [facility] [place] Problem Active 2020-05-07 00:19:13 Balbina Hahn Hypertensive disorder, systemic arterial (disorder) Hypertensive disorder, systemic arterial (disorder) Active Problem 05/05/2015 [facility] Problem Active 2015-05-05 06:47:51 Balbina Hahn Diabetes mellitus Diab etes mellitus Active Problem 01/11/2013 [facility] Problem Active 2013-01-11 21:18:03 [facility] Hypertension Hype rtension Active Problem 01/11/2013 [facility] Problem Active 2013-01-11 21:18:03 Tx josé miguel Hahn Sore throat symptom (finding) Sore throat symptom (finding) Active Problem 05/07/2020 [facility] Problem Active 2020-05-07 00:19:13 [facility] FEVER NOS FEVE R NOS Active [facility] Active 2012-06-25 09:04:00 [facility] [place] ASTHMA NOS ASTH MA NOS Active [facility] Active 2012-09-04 09:02:00 [facility] PNEUMONIA, ORGANISM NOS PNEU MONIA, ORGANISM NOS Active [facility] Active 2013-01-09 13:32:00 [facility] CHR AIRWAY OBSTRUCT NEC CHR AIRWAY OBSTRUCT NEC Active [facility] Active 2015-03-01 10:46:00 [facility] BRONCHITIS NOS BRON CHITIS NOS Active [facility] Active 2015-03-01 10:46:00 [facility] SEPSIS DUE TO UNSPECIFIED STAPHYLOCOCCUS SEPSIS DUE TO UNSPECIFIED STAPHYLOCOCCUS Active [facility] Active 2016-04-10 14:01:00 [facility] ANEMIA, UNSPECIFIED ANEM IA, UNSPECIFIED Active [facility] Active 2016-04-16 12:32:00 [facility] [place] Discharge Diagnosis: Hyperkalemia Discharge Diagnosis: Hyperkalemia 04/06/2016 04/09/2016 [facility] Problem 2 05:00:00 2016-04-09 03:52:45 2016-04-09 03:52:45 [facility] [place] Discharge Diagnosis: Acute UTI Discharge Diagnosis: Acute UTI 10/01/2015 10/04/2015 [facility] Problem 2015 06:00:00 2015-10-04 01:20:51 2015-10-04 01:20:51 [facility] Dis[facility] Diagnosis: Generalized weakness Discharge Diagnosis: Generalized weakness 10/01/2015 10/04/2015 [facility] Problem 2015-10-01 06:00:00 2015-10-04 01:20:51 2015-10-04 01:20:51 [facility] Discharge Diagnosis: Acute bronchitis Discharge Diagnosis: Acute bronchitis 10/10/2014 10/12/2014 [facility] Problem 2014-10-10 05:00:00 2014-10-12 18:27:58 2014-10-12 18:27:58 [facility] Discharge Diagnosis: Cellulitis Discharge Diagnosis: Cellulitis 08/22/2014 08/24/2014 [facility] Problem 201 11-20-00 06:00:00 2014-08-24 14:10:44 2014-08-24 14:10:44 [facility] Discharge Diagnosis: Acute Bronchitis Discharge Diagnosis: Acute Bronchitis 05/16/2014 05/19/2014 Gaur[facility] Problem 2014-05-16 05:00:00 2014-05-19 02:38:33 2014-05-19 02:38:33 [facility] History of Past Illness Condition Name Condition Details Condition Category Status Onset Date Resolution Date Last Treatment Date Treating Clinician Comments Source Upper respiratory infection (disorder) Upper respiratory infection (disorder) Resolved 01/19/2013 Problem 05/07/2020 Data migrated from [employer] on 02/04/15. [facility], SARAH Hahn, SARAH Ricketts, Gaurav, SARAH [place] Problem Resolved 2013-01-19 00:00:00 2020-05-07 00:19:13 2020-05-07 00:19:13 [facility] Urinary tract infectious disease (disorder) Urinary tract infectious disease (disorder) Resolved 04/17/2012 Problem 05/07/2020 Data migrated from [employer] on 02/04/15. [facility], SARAH Hahn, SARAH Ricketts, Gaurav, SARAH [place] Problem Resolved 2012-04-17 00:00:00 2020-05-07 00:19:13 2020-05-07 00:19:13 M wayne Hahn Disorder associated with type II diabetes melliltus (d isorder) Disorder associated with type II diabetes melliltus (disorder) Resolved 08/03/2010 Problem 05/07/2020 Data migrated from [employer] on 12/20/14. [facility], SARAH Hahn, SARAH Ricketts, Gaurav, SARAH [place] Problem Resolved 2010-08-03 00:00:00 2020-05-07 00:19:13 2020-05-07 00:19:1 3 [facility] Allergies, Adverse Reactions, Alerts Allergy Name Allergy Type Status Severity Reaction(s) Onset Date Inacti ve Date Treating Clinician Comments Source No Known Allergies DA Active U 2019-09-14 00:00:00 [facility] Ciprofloxacin Allergy to Substance Active 2019-08-19 00:00: 00 [facility] Levofloxacin Allergy to Substance Active 2019-08-19 00:00:0 0 [facility] Allopurinol Analogues Propensity to adverse reactions Active Rash 2017-04-04 00:00:00 itching [facility] No Known Drug Intolerances DA Active U 2009-05-06 00:00:0 0 [facility] No Known Contrast Allergies DA Active U 2004-05-29 00:00: 00 [facility] No Known Drug Allergies DA Active U 2004-05-29 00:00:00 [facility] No Known Food Allergies DA Active U 2004-05-29 00:00:00 [facility] No Known Other Allergies DA Active U 2004-05-29 00:00:00 [facility] Cipro TABS Allergy to drug (finding) Active [facility] Levaquin TABS Allergy to drug (finding) Active [facility] Sulfa Drugs Allergy to drug (finding) Active [facility] Nitrofurantoin CAPS Allergy to drug (finding) Active [facility] No Known Medication Allergies No Known Medication Allergies Active [facility] Family History Family Member Diagnosis Comments Start Date Stop Date Source Mother Family history of Leukemia [facility] Father Family history of Hypertension [facility] Father Family history of Stroke Syndrome [facility] Father Family history of diabetes mellitus [facility] Natural father Heart disease [facility] Natural father Coronary heart disease (CHD) MD Rios Natural father Hypertension Ayaan son Natural mother Cancer [facility] Natural mother -Leukemia MD Amada mosley Natural mother Hypertension Ayaan son Natural sister Cancer [facility] Natural sister Unremarkable [facility] Natural sister -Breast cancer Natural sister -Thoracic or Lung MD Rios Natural sister Hypertension Ayaan son Unknown Family Member Family History 2013-06-22 23:32:31 2 23:32:31 [facility] Social History Social Habit Start Date Stop Date Quantity Comments Source Sex Assigned At F MD Rios Tobacco use and exposure 2018-10-15 00:00:00 2018-10-15 00:00:00 Nori Rios Alcohol intake 2018-10-15 00:00:00 2018-10-15 00:00:00 Current non-drinker of alcohol (finding) MD Rios Social History 2013-06-22 23:32:31 2013-06-22 23:32:31 [facility] Alcohol Comment 2013-02-04 00:00:00 2013-02-04 00:00:00 social, wine, 1 glass [facility] Smoking Status Start Date Stop Date Source Never smoker MD Rios Medications Ordered Medication Name Filled Medication Name Start Date Stop Da te Current Medication? Ordering Clinician Indication Dosage Frequency Signature (SIG) Comments Components Source Erythromycin 5 MG/GM Ophthalmic Ointment Erythromycin 5 MG/GM Ophthalmic Ointment 2020-05-05 00:00:00 Yes NELIDA SHERMAN P.AEliazar APPLY A SMALL AMOUNT OF OINTMENT TO AFFECTED EYE(S) 4 TIMES DAILY AND AT BEDTIME. [facility] pantoprazole 40 mg oral enteric coated tablet 2020-05-03 22:09:0 0 Yes See Instructions, TAKE 1 TABLET BY MOUTH EVERY DAY, # 90 tab, 0 Refill(s), Pharmacy: [facility] STORE #[id number], 154.94, cm, 12/22/19 10:39:00 CDT, Height, 90.727, kg, 12/22/19 10:39:00 CDT, Weight [facility] 3 ML insulin detemir 100 UNT/ML Prefilled Syringe [Levemir] 2020-03-29 22:05:00 Yes See Instru ctions, ADMINISTER UP TO 35 UNITS UNDER THE SKIN EVERY DAY, # 15 mL, 11 Refill(s), Pharmacy: [facility] #[id number], 154.94, cm, 12/22/19 10:39:00 CDT, Height, 90.727, kg, 12/22/19 10:39:00 CDT, Weight [facility] pantoprazole 40 mg oral enteric coated tablet 2020-02-09 14:15:0 0 Yes = 1 tab, PO, Daily, # 90 tab, 0 Refill(s ), Pharmacy: [facility] STORE #[id number], 154.94, cm, 12/22/19 10:39:00 CDT, Height, 90.727, kg, 12/22/19 10:39:00 CDT, Weight [facility] apixaban (ELIQUIS) 2.5 mg tablet 2020-01-18 14:51:01 Yes 1{tbl} Take 1 tablet by mouth twice daily. MD Amada mosley atorvastatin (LIPITOR) 10 mg tablet 2020-01-18 14:51:01 Yes 1{tbl} Take 1 tablet by mouth daily. MD Amada mosley cholecalciferol, vitamin D3, 1,000 units tablet 2020-01-18 14:51 :01 Yes 1{tbl} Take 1 tablet by mouth daily. MD Rios gmhesufmkat-W5-Tzppxapaz serr 1,500-400-100 mg-unit-mg tab 2020-01-18 14:51:01 Yes 1{tbl} Take 1 tablet by mouth daily. MD Rios dronedarone (MULTAQ) 400 mg tablet 2020-01-18 14:51:01 Yes 1{tbl} Take 1 tablet by mouth twice daily. MD Ayaan matta insulin detemir (LEVEMIR FLEXTOUCH) 100 unit/mL (3 mL) insul in pen 2020-01-18 14:51:01 Yes 15U Inject 15 Units under the ski n at bedtime. MD Rios insulin lispro (HumaLOG KwikPen) 100 unit/mL insulin pen 2020-01-18 14:51:01 Yes Inject under t he skin 3 (three) times a day before meals. Sliding scale MD Rios montelukast (SINGULAIR) 10 mg tablet 2020-01-18 14:51:01 Ye s 10mg Take 10 mg by mouth daily. MD Rios pantoprazole (PROTONIX) 40 mg EC tablet 2020-01-18 14:51:01 Yes 40mg Take 40 mg by mouth daily. MD Rios febuxostat 40 mg tablet 2020-01-18 14:51:01 Yes 40mg Take 40 mg by mouth daily. MD Rios NIFEdipine (PROCARDIA XL) 30 mg 24 hr tablet 2020-01-18 14:51:01 Yes 30mg Take 30 mg by mouth daily as needed (SBP >= 150). MD Rios azelastine-fluticasone 137-50 mcg/spray spry 2020-01-18 14:51:01 Yes 1{spray} 1 spray by intranasal route daily. Each nostral MD Rios telmisartan (MICARDIS) 80 mg tablet 2020-01-18 14:51:01 Yes hypertension 80mg Take 80 mg by mouth daily. Kasia Rios traMADol (ULTRAM) 50 mg tablet 2020-01-18 14:51:00 Yes pain 50mg Take 50 mg by mouth every 6 (six) hours as needed. MD Rios apixaban 2.5 MG Oral Tablet [Eliquis] 2019-12-22 15:49:00 Y es 2.5 mg, PO, Q12H, tab, 0 Refill(s) Balbina Hahn Albuterol 1 MG/ML Inhalant Solution 2019-12-22 15:49:00 Yes 2.5 mg, INHALATION, Q6H, # 60 ea, 0 Refill(s) Tx josé miguel Hahn FREESTYLE LITE BLOOD GLUCOSE STRIPS 2019-10-05 21:50:00 Yes See Instructions, # 100 strip, USE TO CHECK BLOOD SUGAR DIRECTED THREE TIMES DAILY, Pharmacy: [facility] #[id number] Balbina Hahn atorvastatin (LIPITOR) 10 MG tablet 2019-09-24 13:59:56 Yes 10mg QD Take 10 mg by mouth daily. Al Veliz insulin lispro (HumaLOG) 100 unit/mL injection 2019-09-24 13:59: 56 Yes [id number] Inject under the skin 3 (thr ee) times a day before meals. Al Veliz insulin detemir (LEVEMIR) 100 unit/mL injection 2019-09-24 13:59 :56 Yes 23U QD Inject 23 Units under the skin nightly. Al Veliz montelukast (SINGULAIR) 10 mg tablet 2019-09-24 13:59:56 Ye s 10mg QD Take 10 mg by mouth nightly. Al enrique ursodiol (ACTIGALL) 300 mg capsule 2019-09-24 13:59:56 Yes 300mg Q.5D Take 300 mg by mouth 2 (two) times a day. Al Veliz pantoprazole (PROTONIX) 40 MG EC tablet 2019-09-24 13:59:56 Yes 40mg QD Take 40 mg by mouth daily. lA alford cholecalciferol, vitamin D3, (VITAMIN D3) 2,000 unit capsule capsule 2019-09-24 13:59:56 Yes 2000U QD Take 2,000 Units b y mouth daily. Al Veliz conjugated estrogens (PREMARIN) vaginal cream 2019-09-24 13:59:5 6 Yes .5g Q7D Insert 0.5 g into the vagina once a week. Al Veliz calcium carbonate-vitamin D3 (CALCIUM 60 0 + D,3,) 600 mg(1,500mg) -200 unit per tablet 2019-09-24 13:59:56 Yes 1{tbl} QD Take 1 tablet by mouth daily. Al Veliz GLUCOSAMINE HCL/CHONDR ZAMORANO A NA (OSTEO BI-FLEX ORAL) 09-23 13:59:56 Yes 1{capsule} QD Take 1 capsule by mouth daily. Al Veliz azelastine-fluticasone (DYMISTA) 137-50 mcg/spray spray,non- aerosol 2019-09-24 13:59:56 Yes 1{spray} QD 1 spray into each nostril nightly. Al Veliz telmisartan (MICARDIS) 40 MG tablet 2019-09-24 13:59:56 Yes 40mg QD Take 40 mg by mouth daily. Al Veliz NIFEdipine XL (PROCARDIA XL) 30 MG 24 hr tablet 2019-09-24 13:59 :56 Yes 30mg Q24H Take 30 mg by mouth daily as needed. Take if SBP is > 150 Al Veliz apixaban (ELIQUIS) 2.5 mg tablet 2019-09-24 13:59:56 Yes 2.5mg Q.5D Take 2.5 mg by mouth 2 (two) times a day. Hussein Veliz dronedarone (MULTAQ) 400 mg tablet 2019-09-24 13:59:56 Yes 400mg Q.5D Take 400 mg by mouth 2 (two) times a day with meals. Al Veliz febuxostat (ULORIC) 40 mg tablet 2019-09-24 13:59:56 Yes 40mg QD Take 40 mg by mouth daily. Al Veliz furosemide (LASIX) 20 mg tablet 2019-09-24 13:59:56 Yes 20mg QD Take 20 mg by mouth daily. Al Veliz ondansetron (ZOFRAN) 4 MG tablet 2019-09-24 13:59:56 Yes 2mg Q8H Take 2 mg by mouth every 8 (eight) hours as needed for nausea or vomiting. Al Veliz budesonide (PULMICORT) 0.5 mg/2 mL nebulizer solution 2019-09-24 13:59:56 Yes .5mg QD Take 0.5 mg by nebulization once daily. 2x/day Al Veliz albuterol sulfate (PROVENTIL) 2.5 mg/0.5 mL solution for neb ulization 2019-09-24 13:59:56 Yes 2.5mg Q.25D Take 2.5 mg by nebulization 4 (four) times a day. Melendez Shinto HYDROcodone-acetaminophen (NORCO) 5-325 mg per tablet 2019-09-24 00:00:00 2019-10-05 23:59:00 No acute pain acute pain. 1 to 2 every 6 hours if needed for pelvic fractures Melendez Saravanan odist amLODIPine (NORVASC) 10 MG tablet 2019-09-23 22:50:35 2019 00:00:00 No 10mg QD Take 10 mg by mouth daily. Al Veliz Acetaminophen With Codeine (Tylenol With Codeine #3 Ta blet) 1 Each Tablet Acetaminophen With Codeine (Tylenol With Codeine #3 Tablet) 1 Each Tablet 2019-09-07 00:00:00 Yes Aj Madrid Md 300 Every 6 Hours as needed for Pain [facility] 3 ML Insulin Lispro 100 UNT/ML Pen Injector [Humalog] 2019-08-28 00:17:44 Yes See Instruction s, # 45 mL, Refill(s) 4, INJECT 15 UNITS SUBCUTANEOUS THREE TIMES DAILY(WITH MEALS), Pharmacy: [facility] #[id number] [facility] Cephalexin Monohydrate (Keflex) 500 Mg Capsule Cephale odalys Monohydrate (Keflex) 500 Mg Capsule 2019-08-26 00:00:00 Yes Lm Fernández Md 500 Every 12 Hours [facility] Oseltamivir Phosphate (Tamiflu) 75 Mg Cap, 60 Mg Oral Oseltamivir Phosphate (Tamiflu) 75 Mg Cap, 60 Mg Oral 2019-08-19 00:00:00 2019-08-19 00:00:00 No Dez Rodriguez Md 60 Twice A Day [facility] BD Ultra-Fine Mini Insulin Pen [place] 31G 5mm=3/16 inch 2019-08-17 21:02:00 Yes 1 ea, MISC, TID, Use as directed , # 900 ea, 3 Refill(s) [facility] pantoprazole 40 mg oral enteric coated tablet 2019-08-04 00:12:5 3 Yes = 1 tab, PO, Daily, # 90 tab, Refill(s) 1, Pharmacy: [facility] #[id number] [facility] FREESTYLE LITE BLOOD GLUCOSE STRIPS 2019-07-09 00:53:29 Yes See Instructions, # 100 strip, Refill(s) 5, USE TO CHECK BLOOD SUGAR DIRECTED THREE TIMES DAILY, Pharmacy: [facility] #[id number] [facility] canagliflozin (INVOKANA) 300 mg Tab 2019-05-30 18:23:5 9 2019-05-30 00:00:00 No QD Take by mouth daily. [facility] olmesartan (BENICAR) 40 MG tablet 2019-05-30 18:23:59 2018 00:00:00 No 40mg QD Take 40 mg by mouth daily. [facility] sulfamethoxazole-trimethoprim (BACTRIM,SEPTRA) 400-80 mg per tablet 2019-05-30 18:23:59 2019-05-30 00:00:00 No 1{tbl} QD Take 1 tablet by mouth daily Has frequent UTIs that lead to URI. Used for UTI prophylaxis. . [facility] calcium carbonate (OS-VJ) 600 mg (1,500 mg) Tab 2019-05-30 18:21:53 Yes 600mg Take 600 mg by mouth 2 (two) times daily with breakfast and dinner. [facility] hmrhiiaxccc-Y9-yrsljjofq serr (OSTEO BI-FLEX) 1,500-400-100 mg-unit-mg Tab 2019-05-30 18:21:53 Yes Take by mouth. [facility] atorvastatin (LIPITOR) 10 MG tablet 2019-05-30 18:21:53 Yes 10mg QD Take 10 mg by mouth daily. [facility] insulin detemir (LEVEMIR) 100 unit/mL injection 2019-05-30 18:21 :53 Yes QD Inject subcutaneously nightly 33 units. [facility] insulin lispro (HUMALOG) 100 unit/mL injection 2019-05-30 18 :21:53 Yes type 2 diabetes mellitus Inject subcutan eously 3 (three) times daily before meals Takes sliding scale dose only . [facility] albuterol HFA (VENTOLIN HFA) 90 mcg/actuation inhaler 2019-05-30 18:21:53 Yes chronic obstructive pulmonary disease 1{puff} Inhale 1 puff by mouth via inhaler every 6 (six) hours as needed for Wheezing. [facility] montelukast (SINGULAIR) 10 mg tablet 2019-05-30 18:21:53 Yes allergic rhinitis 10mg Take 10 mg by mouth every night as needed. [facility] AZELASTINE/FLUTICASONE (DYMISTA NASAL) 2019-05-30 18:21:53 Yes allergic rhinitis 1{spray} 1 spray by Nasal route 2 (two) times daily as n eeded. [facility] APIXABAN (ELIQUIS ORAL) 2019-05-30 18:21:53 Yes Q.5D Take by mouth 2 (two) times daily. [facility] aspirin 81 MG chewable tablet 2019-05-30 18:20:38 2019-05-30 00: 00:00 No 81mg QD Take 81 mg by mouth daily. [facility] TRAMADOL HCL (TRAMADOL ORAL) 2019-05-30 18:20:38 2019-05-30 00:0 0:00 No Take by mouth. [facility] pantoprazole (PROTONIX) 40 MG tablet 2019-05-30 18:18:56 Ye s 40mg QD Take 40 mg by mouth daily. [facility] DRONEDARONE HCL (MULTAQ ORAL) 2019-05-30 18:18:56 Yes Q.5D Take by mouth 2 (two) times daily. [facility] febuxostat 40 mg tablet 2019-05-30 18:18:56 Yes 40mg QD Take 40 mg by mouth daily. [facility] furosemide (LASIX) 20 MG tablet 2019-05-30 18:18:56 Yes 20mg Q.5D Take 20 mg by mouth 2 (two) times daily. [facility] NIFEdipine (PROCARDIA-XL) 30 MG (OSM) 24 hr tablet 2019-05 18:18:56 Yes 30mg Take 30 mg by mouth daily as needed (IF SBP > 150 mmghg). [facility] atorvastatin 10 mg oral tablet 2019-05-25 22:58:28 Yes = 1 tab, PO, Daily, # 90 tab, Refill(s) 3, [id number] Jovani ursodiol (ACTIGALL) 300 mg capsule 2019-05-12 00:00:00 202 23:59:00 No 300mg Q.5D Take 1 capsule (300 mg total) by mouth 2 (two) times daily. [facility] 3 ML Insulin Lispro 100 UNT/ML Pen Injector [Humalog] 2019-05-11 22:08:48 Yes See Instruction s, # 45 mL, INJECT 15 UNITS SUBCUTANEOUS THREE TIMES DAILY(WITH MEALS), Pharmacy: [facility] #[id number] [facility] Jovani ursodiol (ACTIGALL) 300 mg capsule 2019-05-07 00:00:00 201 03-31-22 00:00:00 No 300mg Q.[id number] Take 1 ca psule (300 mg total) by mouth 3 (three) times daily. [facility] pantoprazole 40 mg oral enteric coated tablet 2019-05-04 14:03:3 3 Yes See Instructions, # 90 tab, TAKE 1 TABLE T BY MOUTH DAILY, [id number] traMADol (ULTRAM) 50 mg tablet 2019-04-02 00:00:00 Yes 1{tbl} Take 1 tablet by mouth 2 (two) times daily as needed. [facility] pantoprazole 40 mg oral enteric coated tablet 2019-01-30 19:14:4 8 Yes See Instructions, # 90 tab, TAKE 1 TABLE T BY MOUTH DAILY, [facility] [id number] telmisartan 80 mg oral tablet 2019-01-06 15:52:00 Yes 80 mg = 1 tab, PO, Daily, # 30 tab, 3 Refill(s) Qing Cho telmisartan (MICARDIS) 80 MG tablet 2019-01-06 00:00:00 Yes 80mg QD Take 80 mg by mouth daily. [facility] B-D PEN NDL MINI [id number](10/04)PRPL 2018-10-07 22:24:37 Yes See Instructions, # 900 unknown unit, DIRECTED THREE TIMES DAILY, Pharmacy: [facility] [address] [place] [address] 3 ML insulin detemir 100 UNT/ML Prefilled Syringe [Levemir] 2018-09-22 20:09:00 Yes See Instru ctions, INJECT UP TO 35 UNITS UNDER THE SKIN EVERY DAY, # 15 mL, 5 Refill(s), Pharmacy: [facility] [address] traMADol HCl - 50 MG Oral Tablet traMADol HCl - 50 MG Oral T ablet 2018-09-05 00:00:00 Yes MIRTHA MOLINA M.D. Q12H T MADY 1 TABLET EVERY 12 HOURS NEEDED. [facility] atorvastatin 10 mg oral tablet 2018-08-29 22:23:25 Yes = 1 tab, PO, Daily, # 90 tab, Refill(s) 1, Pharmacy: [facility] [address] ondansetron (ZOFRAN-ODT) 4 mg disintegrating tablet 08-21 00:00:00 Yes Nausea and vomiting DISSOLVE 1 T ABLET(4 MG) ON THE TONGUE EVERY 6 HOURS NEEDED FOR NAUSEA OR VOMITING MD Everett on pantoprazole 40 mg oral enteric coated tablet 2018-08-06 15:11:1 5 Yes = 1 tab, PO, Daily, # 90 tab, Refill(s) 1, Pharmacy: [facility] [address] bisacodyl (DULCOLAX) 10 mg suppository 2018-07-18 00:00:00 Yes Slow transit constipation 10mg Insert 1 suppositor y (10 mg) into the rectum daily. Unwrap and remove each suppository from foil prior to insertion. MD Rios senna (SENOKOT) 8.6 mg tablet 2018-07-18 00:00:00 Yes Slow transit constipation 2{tbl} Take 2-4 tablets by mouth twice daily. MD Rios metoclopramide (REGLAN) 5 mg/5 mL solution 2018-07-18 00:00: 00 Yes Anorexia 5mg Take 5 mL (5 mg) by mouth every 8 (eight) hours. 6AM, 2PM, 10PM MD Rios fentaNYL (DURAGESIC) patch 25 mcg/hr 2018-07-18 00:00:00 Yes Neoplasm related pain (acute) (chronic) Place 1 p atch (25 mcg/hr patch) on the skin every 72 hours. Remove old patch(es) before replacing new patch(es). MD Rios HYDROmorphone (DILAUDID) 2 mg tablet 2018-07-18 00:00:00 Yes Neoplasm related pain (acute) (chronic) 2mg Take 1-2 tablets (2-4 mg) by mouth every 3 (three) hours as needed (pain). MD Kuo son ondansetron (ZOFRAN) 8 mg tablet 2018-07-10 00:00:00 Yes Nausea alone 8mg Take 1 tablet (8 mg) by mouth every 8 (eight) hours as needed fo r nausea. MD Rios tramadol hydrochloride 50 MG Oral Tablet 2018-07-08 16:43:00 Yes 50 mg = 1 tab, PO, Q6H, PRN Pain, # 40 tab, 0 Refill(s) [facility] Tylenol 2018-07-08 16:43:00 Yes PO, 0 Refill (s) [facility] Zofran 2018-07-08 16:43:00 Yes 4 mg, PO, PRN , 0 Refill(s) [facility] acetaminophen (TYLENOL EXTRA STRENGTH) 500 mg tablet 2 00:00:00 Yes Malignant neoplasm of endometrium 1000mg Take 2 tablets (1,000 mg) by mouth every 6 (six) hours as needed for mild pain. MD Rios hydrocortisone (ANUSOL-HC) 2.5% rectal cream 2018-06-20 00:0 0:00 Yes Hemorrhoid, not otherwise specified Appl y around the anus 3 (three) times a day as needed for hemorrhoids. MD Everett on Freestyle Lite Blood Glucose Test Strips 2018-06-13 15:31:21 Yes 1 ea, MISC, TID, Use for blood glucose monitoring., # 100 ea, Insulin dependent, Does not use insulin pump, Last DM eval date 04/09/18, 11 Refill(s), Pharmacy: [facility] [id number] [facility] atorvastatin 10 mg oral tablet 2018-06-04 00:27:27 No See Instructions, # 90 tab, TAKE 1 TABLET BY MOUTH EVERY DAY, Pharmacy: [facility] [id number] [facility] cholecalciferol, vitamin D3, 4,000 unit Tab 2018-05-05 11:31:58 Yes 4000U QD Take 4,000 Units by mouth daily. [facility] Budesonide 2018-04-09 14:38:00 Yes See Instructions, did not know dosage but taking twice daily., 0 Refill(s) [facility] FREESTYLE LITE STRIPS strp 2018-03-14 00:00:00 Yes CHECK BLOOD GLUCOSE TID MD Rios albuterol (PROVENTIL,VENTOLIN) 2.5 mg/3 mL (0.083%) nebulize r solution 2018-03-10 00:00:00 Yes 1{vial} Take 1 vial by nebulization twice daily. MD Rios atorvastatin 10 mg oral tablet 2018-03-07 18:44:00 No See Instructions, TAKE 1 TABLET BY MOUTH EVERY DAY, # 90 tab, 0 Refill(s), Pharmacy: [facility] [address] budesonide (PULMICORT) 0.5 mg/2 mL nebulizer solution 2018-01-17 00:00:00 Yes .5mg Take 0.5 mg by nebulization twice daily. MD Rios pantoprazole 40 mg oral enteric coated tablet 2017-12-18 18:34:4 3 Yes See Instructions, # 90 tab, TAKE 1 TABLE T BY MOUTH DAILY, Pharmacy: [facility] [address] atorvastatin 10 mg oral tablet 2017-12-09 18:16:04 Yes See Instructions, # 90 tab, TAKE 1 TABLET BY MOUTH EVERY DAY, Pharmacy: [facility] [address] pantoprazole 40 mg oral enteric coated tablet 2017-11-12 22:38:2 4 Yes See Instructions, # 90 tab, TAKE 1 TABLE T BY MOUTH DAILY, [facility] [address] 3 ML Insulin Lispro 100 UNT/ML Pen Injector [Humalog] 2017-10-28 21:39:00 No See Instruction s, USE DIRECTED, # 45 mL, 5 Refill(s), Pharmacy: [facility] [address] 3 ML Insulin Lispro 100 UNT/ML Pen Injector [Humalog] 2017-10-28 21:39:00 No See Instruction s, USE DIRECTED, # 45 mL, 5 Refill(s), Pharmacy: [facility] [address] ProAir HFA 108 (90 Base) MCG/ACT Inhalation Aerosol So lution ProAir HFA 108 (90 Base) MCG/ACT Inhalation Aerosol Solution 2017-10-18 00:00:00 Uvaldo PENNY M.D. INHALE 1 TO 2 PUFFS EVERY 4 TO 6 HOURS A S NEEDED. [facility] atorvastatin 10 mg oral tablet 2017-09-09 18:43:00 No See Instructions, # 90 tab, TAKE 1 TABLET BY MOUTH EVERY DAY, Pharmacy: [facility] [id number] Balbina Hahn amoxicillin 500 mg oral tablet 2017-08-05 17:00:00 Yes See Instructions, 1 tab PO q 8 hours, 0 Refill(s) Balbina Hahn 24 HR Nifedipine 30 MG Extended Release Tablet [Procardia] 2017-08-05 16:58:00 Yes 30 mg = 1 tab, PO, Daily, # 30 tab, 0 Refill(s) Balbina Hahn Furosemide 40 MG Oral Tablet 2017-08-05 16:57:00 Yes 40 mg = 1 tab, PO, Daily, # 30 tab, 0 Refill(s) Jewels Hahn BD Ultra-Fine Mini Insulin Pen [place] 31G 5mm=3/16 inch 2017-07-26 15:11:00 Yes 1 ea, MISC, TID, Use as directed , # 900 ea, 3 Refill(s) Balbina Hahn furosemide (LASIX) 40 mg tablet 2017-05-30 00:00:00 Yes 40mg Take 40 mg by mouth daily. MD Rios azelastine nasal 0.1% (137 mcg/inh) spray 2016-04-10 02:00:00 No Notes: (azelastine 137 microgram/inh 34 ml nasal SPR) Non-formulary drug. Same As: Rosa) Balbina Hahn Docusate Sodium 50 MG / sennosides, LONG TERM 8.6 MG Oral Tablet 2016-04-09 20:26:00 Yes 1 tab, PO, BID, X 30 day, # 60 tab, 0 Refill(s) Balbina Hahn Ciprofloxacin 500 MG Oral Tablet [Cipro] 2016-04-09 20:26:00 Yes 500 mg = 1 tab, PO, Q12H, X 12 day, # 24 tab, 0 Refill(s) Balbina Hahn Albuterol 0.83 MG/ML Inhalant Solution 2016-04-09 02:30:00 No Notes: SEE RT DOCUMENTATION (Same as: Proventil) Balbina Hahn Albuterol 0.83 MG/ML Inhalant Solution 2016-04-09 00:01:00 No Notes: SEE RT DOCUMENTATION (Same as: Proventil) Balbina Hahn Miralax 2016-04-08 14:18:00 No Notes: Dissolve in 8 oz of water or juice. (Same as: Miralax) Balbina Santana nn Docusate Sodium 50 MG / sennosides, LONG TERM 8.6 MG Oral Tablet 2016-04-08 14:17:00 No Notes: (Same as Senokot-S) Equ iv. to Anamaria-Colace. Balbina Hahn insulin detemir 2016-04-08 14:00:00 No Notes: Same as Levemir Do not hold insulin without contacting prescriber WASTE: F/P - Black; E - Municipal Trash Bin "single patient use only" Benjamin Reyesann sodium chloride 0.45% 1000 ml INJ 1,000 mL 2016-04-08 13:01:00 No 1,000 mL, Rate: 125 ml/hr, Infuse over: 8 hr, Route: IV, Dosing Weight 99.091 kg, Total Volume: 1,000, Start date: 04/08/16 8:01:00 CDT, Duration: 24 hr, Stop date: 04/09/16 8:06:00 CDT Balbina owens Sodium Chloride 0.154 MEQ/ML Injectable Solution 2016-04-08 13:0 1:00 No 2,000 mL, 1,000 ml/hr, Infus e Over: 2 hr, Route: IV, 2,000, Drug form: INJ, ONCE, Priority: STAT, Dosing Weight 99.091 kg, Start date: 04/08/16 8:01:00 CDT, Stop date: 04/08/16 8:01:00 CDT Benjaminsamina l Jovani insulin detemir 2016-04-08 02:00:00 No Notes: Same as Levemir Do not hold insulin without contacting prescriber WASTE: F/P - Black; E - Municipal Trash Bin "single patient use only" Benjamin orial [place] atorvastatin 2016-04-08 02:00:00 No Notes: (Same As: Lipitor) Balbina Jovani Singulair 2016-04-07 22:00:00 No Notes: (Sa me as:Singulair) [facility] pantoprazole 2016-04-07 21:30:00 No Notes: Tablet should not be chewed or crushed. (Same as: Protonix) Kasia emorial Jovani heparin 2016-04-07 21:00:00 No Notes: porci ne heparin [facility] meropenem 2016-04-07 21:00:00 No 50, Extended infusion, infuse over 3 hours, Start date: 04/07/16 16:00:00 CDT, Duration: 30 day, Stop date: 05/07/16 8:00:00 CDT [facility] Insulin, Aspart, Human 2016-04-07 17:44:00 No Notes: Roll in palms of hands gently; Do not shake vigorously. (Same as: NovoLOG) "single patient use only" WASTE: F/P - Black; E - Municipal Trash Bin Stable for 28 days at room temperature. Expires in days from Date [facility] Jovani Glucagon 2016-04-07 17:44:00 No 1 mg, Route: IM, Drug form: PDR/INJ, PRN, Dosing Weight 99.091, kg, PRN Blood Glucose Results, Start date: 04/07/16 12:44:00 CDT, Duration: 30 day, Stop date: 05/07/16 12:43:00 CDT [facility] [place] Dextrose 50% Syringe 2016-04-07 17:44:00 No 25 gm, 50 mL, Route: IVP, Drug Form: INJ, Dosing Weight 99.091, kg, PRN, PRN Blood Glucose Results, Start date: 04/07/16 12:44:00 CDT, Duration: 30 day, Stop date: 05/07/16 12:43:00 CDT [facility] Aspirin 81 MG Chewable Tablet 2016-04-07 17:00:00 No Notes: Take with food. [facility] meropenem 2016-04-07 17:00:00 No Notes: Same as Merrem MEDICATION WASTE Product Size: 500 mg Product Wasted: ___ mg [facility] Ventolin HFA 90 mcg/inh inhalation aerosol with adapter 2016-04-07 16:27:00 No Notes: Albutero l 90 microgram/inh 8gm HFA WASTE: Aerosol - Return to Pharmacy Same as: Naz Newell Acetaminophen 2016-04-07 14:14:00 No Notes: Do not exceed 4 gm/day. (Same as: Tylenol) Balbina Hahn Docusate 2016-04-07 14:14:00 No Notes: (Same as: Colace) (Do Not Crush) Balibna Hahn Ondansetron 2016-04-07 14:14:00 No Notes: (Same as: Zofran) MEDICATION WASTE Product Size: 4 mg Product Wasted: ___ mg Balbina Hahn Acetaminophen 300 MG / Codeine Phosphate 30 MG Oral Tablet [Tylenol with Codeine #3] 2016-04-07 12:06:00 No Notes: Do not exceed 4gm/day of acetaminophen. (Same as: Tylenol with Codeine # 3) Balbina Hahn Sodium Chloride 0.154 MEQ/ML Injectable Solution 2016-04-07 11:3 4:00 No 1,000 mL, 1,000 ml/hr, Infus e Over: 1 hr, Route: IV, ONCE, Priority: STAT, Dosing Weight 100 kg, Start date: 04/07/16 6:34:00 CDT, Duration: 1 doses or times, Stop date: 04/07/16 6:34:00 [facility] Sal[facility] Flush 0.9% 2016-04-07 11:34:00 No Notes: preservative free. Balbina Hahn Ceftriaxone 2016-04-07 11:32:00 No 1 gm, Route: IVPB, Drug form: PDR/INJ, ONCE, Dosing Weight 100, kg, Priority: STAT, Start date: 04/07/16 6:32:00 CDT, Stop date: 04/07/16 6:32:00 CDT [facility] Jovani Hydrochlorothiazide 25 MG Oral Tablet 2016-04-07 00:38:00 Y es 25 mg = 1 tab, PO, Daily, # 30 tab, 0 Refill(s) Balbina Hahn Zofran 2016-04-06 23:39:00 No 4 mg, Route: IVP, Drug form: INJ, ONCE, Dosing Weight 99.091, kg, Priority: STAT, Start date: 04/06/16 18:39:00 CDT, Stop date: 04/06/16 18:39:00 CDT Tx josé miguel Hahn Sodium Chloride 0.154 MEQ/ML Injectable Solution 2016-04-06 20:1 1:00 No 500 mL, 1,000 ml/hr, Infuse Over: 0.5 hr, Route: IV, 500, Drug form: INJ, ONCE, Priority: STAT, Dosing Weight 99.091 kg, Start date: 04/06/16 15:11:00 CDT, Duration: 1 doses or times, Stop date: 04/06/16 15:11:00 CDT Balbina Hahn d50 syringe 2016-04-06 20:10:00 No 12.5 gm, 25 mL, Route: IVP, Drug Form: INJ, Dosing Weight 99.091, kg, ONCE, STAT, Start date: 04/06/16 15:10:00 CDT, Stop date: 04/06/16 15:10:00 CDT, 25 ml = 12.5 gm Balbina Hahn Insulin regular 2016-04-06 20:10:00 No Notes: (Same as: Humulin R and NovoLIN R) WASTE: F/P - Black; E - [employer] Trash Bin (Do not shake) Balbina Reyesann Kayexalate 2016-04-06 20:09:00 No Notes: (sodium polystyrene sulfonate 15 gm/60 ml GOLDEN) Shake well before use. (Same as: Kayexalate, SPS) Balbina Hahn Saline Flush 0.9% 2016-04-06 18:24:00 No Notes: (Same as: BD Posiflush) Balbina Reyesann Cephalexin 500 MG Oral Capsule [Keflex] 2015-10-01 18:15:00 Yes 500 mg = 1 cap, PO, QID, X 10 day, # 40 cap, 0 Refill(s), Pharmacy: [facility] [id number] Balbina Hahn Albuterol 0.83 MG/ML Inhalant Solution 2015-10-01 17:28:00 No Notes: SEE RT DOCUMENTATION (Same as: Proventil) Balbina Hahn Saline Flush 0.9% 2015-10-01 14:20:00 No Notes: (Same as: BD Posiflush) Balbina Reyesann Benicar 2015-09-22 18:56:00 No 40 mg, 2 tab, Route: PO, Drug form: TAB, ONCE, Dosing Weight 97.273, kg, Start date: 09/22/15 12:56:00, Stop date: 09/22/15 12:56:00 [facility] Ciprofloxacin 250 MG Oral Tablet [Cipro] 2015-09-22 18:51:00 Yes 250 mg = 1 tab, PO, Q12H, X 7 day, # 14 tab, 0 Refill(s), Pharmacy: [facility] [id number] [facility] Ondansetron 4 MG Oral Tablet [Zofran] 2015-09-22 18:51:00 Y es 4 mg = 1 tab, PO, BID, X 5 day, # 10 tab, 0 Refill(s), Pharmacy: [facility] [id number] [facility] Ciprofloxacin 2015-09-22 18:50:00 No 500 mg, Route: PO, ONCE, Dosing Weight 97.273, kg, Priority: STAT, Start date: 09/22/15 12:50:00, Stop date: 09/22/15 12:50:00 [facility] Sodium Chloride 0.154 MEQ/ML Injectable Solution 2015-09-22 14:5 1:00 No 1,000 mL, 1,000 ml/hr, Infus e Over: 1 Hour, Route: IV, ONCE, Priority: STAT, Dosing Weight 97.273 kg, Start date: 09/22/15 8:51:00, Duration: 1 doses or times, Stop date: 09/22/15 8:51:00 Jessy aggarwal [place] Morphine 2015-09-22 14:47:00 No 4 mg, Route: IVP, ONCE, Dosing Weight 97.273, kg, Priority: STAT, Start date: 09/22/15 8:47:00, Stop date: 09/22/15 8:47:00 [facility] Ondansetron 2015-09-22 14:47:00 No 4 mg, Route: IVP, ONCE, Dosing Weight 97.273, kg, Priority: STAT, Start date: 09/22/15 8:47:00, Stop date: 09/22/15 8:47:00 [facility] Sodium Chloride 0.154 MEQ/ML Injectable Solution 2015-09-22 14:4 7:00 No 1,000 mL, Infuse Over: 1 hr, Route: IV, ONCE, Priority: STAT, Dosing Weight 97.273 kg, Start date: 09/22/15 8:47:00, Duration: 1 doses or times, Stop date: 09/22/15 8:47:00 Balbina Hahn Saline Flush 0.9% 2015-09-22 14:47:00 No Notes: (Same as: BD Posiflush) Balbina Hahn Ventolin HFA 90 mcg/inh inhalation aerosol with adapter 2015-03-01 17:16:00 Yes 2 puff, INHALER , Q4H, PRN wheezing, coughing, or shortness of breath, # 8 gm, 1 Refill(s) Balbina owens {21 (Methylprednisolone 4 MG Oral Tablet [Medrol]) } Pack [M edrol Dosepak] 2015-03-01 17:16:00 Yes Special Instructions: Take by mouth as directed on label. Balbina Hahn atorvastatin 2015-02-28 14:00:00 No Notes: (Same As: Lipitor) Balbina Hahn Aspirin 81 MG Chewable Tablet 2015-02-28 14:00:00 No Notes: Take with food. Balbina Hahn Amlodipine 2015-02-28 14:00:00 No Notes: (S luciana as: Norvasc) Balbina Hahn Benicar 2015-02-28 14:00:00 No 40 mg, 2 tab, Route: PO, Drug form: TAB, Daily, Dosing Weight 94.091, kg, Start date: 02/28/15 9:00:00, Duration: 30 day, Stop date: 03/29/15 9:00:00 Jewels Hahn Insulin, Aspart, Human 2015-02-28 03:01:00 No Notes: Roll in palms of hands gently; Do not shake vigorously. (Same as: NovoLOG) "single patient use only" Stable for 28 days at room temperature. Expires in days from Date Balbina [place] Levemir FlexPen 2015-02-28 02:00:00 No Notes: Same as Levemir Do not hold insulin without contacting prescriber "single patient use only" Balbina Jovani Protonix 2015-02-27 21:30:00 No Notes: Same as: Protonix Mix in 5 mL apple juice or applesauce for oral & 10mL apple juice for NG tube [facility] Solu-Medrol 2015-02-27 20:00:00 No Notes: (Same as:Solu-MEDROL, A-Methapred) [facility] pantoprazole 2015-02-27 19:31:00 Yes 40 mg, PO, Daily, # 30 tab, 0 Refill(s) [facility] Ursodeoxycholate 2015-02-27 18:00:00 No Notes: (Same As: Actigall) [facility] Insulin, Aspart, Human 2015-02-27 17:50:00 No Notes: Roll in palms of hands gently; Do not shake vigorously. (Same as: NovoLOG) "single patient use only" Stable for 28 days at room temperature. Expires in days from Date [facility] Jovani Dextrose 50% Syringe 2015-02-27 17:50:00 No 25 gm, 50 mL, Route: IVP, Drug Form: INJ, Dosing Weight 94.091, kg, PRN, PRN Blood Glucose Results, Start date: 02/27/15 12:50:00, Duration: 30 day, Stop date: 03/29/15 12:49:00 [facility] Glucagon 2015-02-27 17:50:00 No 1 mg, Route: IM, Drug form: PDR/INJ, PRN, Dosing Weight 94.091, kg, PRN Blood Glucose Results, Start date: 02/27/15 12:50:00, Duration: 30 day, Stop date: 03/29/15 12:49:00 [facility] Ursodeoxycholate 2015-02-27 15:27:00 Yes 300 mg, PO, TID, 0 Refill(s) [facility] Nitroglycerin 0.4 MG Sublingual Tablet 2015-02-27 13:56:00 No Notes: (Same as:Nitroquargelia Nitrostat) "Do Not Crush" Sublingual tablet [facility] Atropine 2015-02-27 13:56:00 No 0.5 mg, 5 mL, Route: IV, Drug form: INJ, PRN, Dosing Weight 94.091, kg, PRN Bradycardia, Start date: 02/27/15 8:56:00, Duration: 30 day, Stop date: 03/29/15 8:55:00 [facility] Jovani Albuterol 0.83 MG/ML Inhalant Solution 2015-02-27 12:00:00 No Notes: SEE RT DOCUMENTATION (Same as: Proventil) [facility] Jovani Albuterol 0.833 MG/ML / Ipratropium Brom grady 0.167 MG/ML Inhalant Solution [DuoNeb] 2015-02-27 11:27:00 No Notes: (S luciana as: Duoneb) [facility] Jovani Ondansetron 2015-02-27 11:27:00 No Notes: (Same as: Zofran) MEDICATION WASTE Product Size: 4 mg Product Wasted: ___ mg [facility] Jovani Docusate 2015-02-27 11:27:00 No Notes: (Same as: Colace) (Do Not Crush) [facility] Acetaminophen 2015-02-27 11:27:00 No Notes: Do not exceed 4 gm/day. (Same as: Tylenol) [facility] Morphine 2015-02-27 11:27:00 No Not es: (Same as:MORPhine Sulfate) [facility] Benicar 2015-02-27 10:33:00 No 40 mg, 2 tab, Route: PO, Drug form: TAB, ONCE, Dosing Weight 94.091, kg, Priority: NOW, Start date: 02/27/15 5:33:00, Stop date: 02/27/15 5:33:00 [facility] Jovani methylPREDNISolone SODium SUCCinate 2015-02-27 08:34:00 No 125 mg, Route: IVP, ONCE, Dosing Weight 94.091, kg, Priority: STAT, Start date: 02/27/15 3:34:00, Stop date: 02/27/15 3:34:00 Me morial [place] Albuterol 0.833 MG/ML / Ipratropium [place] 0.167 MG/ML Inha lant Solution 2015-02-27 06:50:00 No 3 mL, Route: NEB, Drug Form: SOLN, Dosing Weight 94.091, kg, ONCE, STAT, Start date: 02/27/15 1:50:00, Stop date: 02/27/15 1:50:00 [facility] Saline Flush 0.9% 2015-02-27 06:50:00 No Notes: (Same as: BD Posiflush) Balbina Hahn doxycycline monohydrate 100 mg oral tablet 2014-10-10 18:50:00 Yes 100 mg = 1 tab, PO, Q12H, # 20 tab, 0 Refill(s) Balbina Hahn predniSONE 10 mg oral tablet 2014-10-10 18:50:00 Yes Special Instructions: 12 day regimen: Days 1-4 - 20 mg (2 tabs) daily Days 5-8 - 10 mg (1 tab) daily Days 9-12 - 5 mg (1/2 tab) daily [facility] [place] Albuterol 0.833 MG/ML / Ipratropium Brom grady 0.167 MG/ML Inhalant Solution [DuoNeb] 2014-10-10 16:22:00 No Notes: (S luciana as: Duoneb) [facility] [place] Albuterol 0.833 MG/ML / Ipratropium Brom grady 0.167 MG/ML Inhalant Solution [DuoNeb] 2014-10-10 16:21:00 No Notes: (S luciana as: Duoneb) [facility] Saline Flush 0.9% 2014-10-10 16:21:00 No Notes: Same as: BD Posiflush Sterile [facility] [place] Sulfamethoxazole 800 MG / Trimethoprim 160 MG Oral Tablet [B actrim] 2014-08-23 02:25:00 Yes 1 tab, PO, BID, # 14 tab, 0 Refill(s) [facility] [place] benzonatate 100 MG Oral Capsule [Tre Gill] 2014-05-16 22:09:00 Yes 100 mg = 1 cap, PO, TID, # 30 cap, 0 Refill(s) [facility] Jovani Albuterol 0.833 MG/ML / Ipratropium [place] 0.167 MG/ML Inha lant Solution 2014-05-16 17:48:00 No 3 mL, Route: NEB, Drug Form: SOLN, Dosing Weight 92.727, kg, ONCE, STAT, Start date: 05/16/14 12:48:00, Stop date: 05/16/14 12:48:00 [facility] Jovani Saline Flush 0.9% 2014-05-16 17:48:00 No 10 mL, Route: IVP, Drug Form: INJ, Dosing Weight 92.727, kg, PRN, PRN Line Flush, Start date: 05/16/14 12:48:00, Duration: 30 day, Stop date: 06/15/14 11:47:00 Balbina Hahn Atorvastatin Calcium 10 MG Oral Tablet 2013-06-22 23:32:31 Yes (Active) Balbina Hahn Levemir SOLN 2013-06-22 23:32:31 Yes (Activ e) Balbina Hahn Metoprolol Succinate ER 50 MG Oral Tablet Extended Release 2 4 Hour 2013-06-22 23:32:31 Yes (Active) Jessy Hahn Diovan 320 MG Oral Tablet 2013-06-22 23:32:31 Yes (Active) Balbina Hahn AmLODIPine Besylate 5 MG Oral Tablet 2013-06-22 23:32:31 Ye s (Active) Balbina Hahn Byetta 5 MCG Pen SOLN 2013-06-22 23:32:31 Yes (Active) Balbina Hahn NovoLOG FlexPen SOLN 2013-06-22 23:32:31 Yes (Active) Balbina Hahn Aspirin 81 MG Oral Tablet 2013-06-22 23:32:31 Yes (Active) Balbina Hahn Levemir FlexPen 2013-01-10 02:00:00 No Cory Rickie 25 unit, 0.25 mL, Route: SUB-Q, Drug form: INJ, Bedtime, Start date: 01/09/13 21:00:00, Duration: 30 day, Stop date: 02/07/13 21:00:00 Benjamin Hahn Protonix 40 mg oral enteric coated tablet 2013-01-09 20:08 :51 Yes Maria Luisa Misty Earnest 40 mg, 1 tab, PO, Daily, 30 tab, Substitution Allowed, ECTAB [facility] Jovani amLODipine 10 mg oral tablet 2013-01-09 18:46:40 Yes Maria Luisa Misty Earnest 10 mg, 1 tab, PO, Daily, 30 tab, Substit ution Allowed, TAB [facility] Jovani predniSONE 10 mg oral tablet 2013-01-09 18:46:27 Yes Maria Luisa Misty Earnest 10 mg, 1 tab, PO, Daily, 14 tab, Substit ution Allowed, TAB [facility] Jovani Levemir FlexPen 2013-01-09 14:00:00 No Cory Rickie 10 unit, 0.1 mL, Route: SUB-Q, Drug form: INJ, QAM, Start date: 01/09/13 9:00:00, Duration: 30 day, Stop date: 02/07/13 9:00:00 Jewels phillips Jovani NS 1,000 mL 2013-01-09 13:07:00 No Cory Rickie 1,000 mL, Rate: 75 ml/hr, Infuse over: 13.3 hr, Route: IV, Dosing Weight 93.636 kg, Total Volume: 1,000, Start date: 01/09/13 8:07:00, Duration: 30 day, Stop date: 02/08/13 8:06:00 [facility] Levemir FlexPen 2013-01-09 02:00:00 No Cory Rickie 15 unit, 0.15 mL, Route: SUB-Q, Drug form: INJ, Daily, Dosing Weight 93.636, kg, Start date: 01/08/13 21:00:00, Duration: 30 day, Stop date: 02/06/13 21:00:00 [facility] 2013-01-08 23:56:00 No Maria Luisa Tinoco 18 unit, 0.18 mL, Route: SUB-Q, Drug form: SOLN, Sliding Scale, PRN Blood Glucose Results, Start date: 01/08/13 18:56:00, Duration: 30 day, Stop date: 02/07/13 18:55:00 [facility] NovoLog FlexPen 2013-01-08 23:55:00 No Maria Luisa Tinoco 12 unit, 0.12 mL, Route: SUB-Q, Drug form: SOLN, Sliding Scale, PRN Blood Glucose Results, Start date: 01/08/13 18:55:00, Duration: 30 day, Stop date: 02/07/13 18:54:00 [facility] NovoLog FlexPen 2013-01-08 23:53:00 No Maria Luisa Tinoco 8 unit, Route: SUB-Q, Drug form: SOLN, Sliding Scale, PRN Blood Glucose Results, Start date: 01/08/13 18:53:00, Duration: 30 day, Stop date: 02/07/13 18:52:00 [facility] pantoprazole 2013-01-08 14:00:[address] [place] 40 mg, 1 tab, Route: PO, Drug form: ECTAB, Daily, Dosing Weight 93.636, kg, Priority: Routine, Start date: 01/08/13 9:00:00, Stop date: 02/06/13 9:00:00 [facility] SoluMedrol 2013-01-08 14:00:[address] [place] 40 mg, 1 mL, Route: IVP, Drug form: INJ, Q12H, Dosing Weight 93.636, kg, Start date: 01/08/13 9:00:00, Duration: 30 day, Stop date: 02/06/13 21:00:00 [facility] Diovan 2013-01-08 14:00:[address] [place] 320 mg, 2 tab, Route: PO, Drug form: TAB, Daily, Dosing Weight 93.636, kg, Start date: 01/08/13 9:00:00, Duration: 30 day, Stop date: 02/06/13 9:00:00 [facility] pneumococcal 23-valent vaccine 2013-01-08 14:00:00 No S YSTEM SYSTEM 0.5 ml, Route: IM, Drug Form: INJ, Daily, Start date: 01/08/13 9:00:00, Duration: 1 doses or times, Stop date: 01/08/13 9:00:00 [facility] aspirin 81 mg tablet, chewable 2013-01-08 14:00:[address] [place] 81 mg, 1 tab, Route: PO, Drug form: CHEW TAB, Daily, Dosing Weight 93.636, kg, Start date: 01/08/13 9:00:00, Duration: 30 day, Stop date: 02/06/13 9:00:00 [facility] atorvastatin 2013-01-08 14:00:[address] [place] 10 mg, 1 tab, Route: PO, Drug form: TAB, QAM, Dosing Weight 93.636, kg, Start date: 01/08/13 9:00:00, Duration: 30 day, Stop date: 02/06/13 9:00:00 [facility] amLODipine 2013-01-08 14:00:[address] [place] 5 mg, 1 tab, Route: PO, Drug form: TAB, BID, Dosing Weight 93.636, kg, Start date: 01/08/13 9:00:00, Duration: 30 day, Stop date: 02/06/13 21:00:00 [facility] NovoLog FlexPen 2013-01-08 13:59:00 No Maria Luisa Tinoco 12 unit, 0.12 mL, Route: SUB-Q, Drug form: SOLN, Sliding Scale, PRN Blood Glucose Results, Start date: 01/08/13 8:59:00, Duration: 30 day, Stop date: 02/07/13 8:58:00 [facility] DuoNeb inhalation solution 2013-01-08 13:00:00 No Nnenn a N On[place] 3 mL, Route: INHALATION, Drug Form: SOLN, Dosing Weight 93.636, kg, RQ6H, Start date: 01/08/13 8:00:00, Duration: 30 day, Stop date: 02/07/13 2:00:00 [facility] codeine-guaifenesin 10 mg-200 mg/5 mL oral liquid 09:50:[address] [place] 10 mL, Route: P O, Drug Form: LIQ, Dosing Weight 93.636, kg, Q4H, PRN as needed for cough, Start date: 01/08/13 4:50:00, Duration: 30 day, Stop date: 02/07/13 4:49:00 Jewels phillips [place] Zofran 2013-01-08 09:50:[address] [place] 4 mg, 2 mL, Route: IV, Drug form: INJ, Q4H, Dosing Weight 93.636, kg, PRN as needed for nausea/vomiting, Start date: 01/08/13 4:50:00, Duration: 30 day, Stop date: 02/07/13 4:49:00 [facility] acetaminophen 2013-01-08 09:50:[address] [place] 650 mg, 2 tab, Route: PO, Drug form: TAB, Q6H, Dosing Weight 93.636, kg, PRN Pain, Start date: 01/08/13 4:50:00, Duration: 30 day, Stop date: 02/07/13 4:49:00 [facility] azithromycin + Sodium Chloride 0.9% IV 250 mL 2013-01-08 0 8:00:00 No Maria Luisa Quesadarick 500 mg, Route : IVPB, [id number], Dosing Weight 90.455, kg, Priority: Routine, Start date: 01/08/13 3:00:00, Duration: 30 day, Stop date: 02/06/13 3:00:00 [facility] ceftriaxone + Sodium Chloride 0.9% IV 100 mL 2013-01-08 08 :00:00 No Maria Luisa Booneerinnellie QuesadaEarnest 1 gm, Route: IVPB, [id number], Dosing Weight 90.455, kg, Priority: Routine, Start date: 01/08/13 3:00:00, Duration: 30 day, Stop date: 02/06/13 3:00:00 [facility] Dextrose 50% Syringe 2013-01-08 07:41:00 No Cory Madridv ed 25 gm, 50 mL, Route: IVP, Drug Form: INJ, Dosing Weight 90.455, kg, PRN, PRN Blood Glucose Results, Start date: 01/08/13 2:41:00, Duration: 30 day, Stop date: 02/07/13 2:40:00 [facility] insulin aspart 2013-01-08 07:41:00 No Cory Madridved 4 unit, 0.04 mL, Route: SUB-Q, Drug form: SOLN, Bedtime, Dosing Weight 90.455, kg, PRN Blood Glucose Results, Start date: 01/08/13 2:41:00, Duration: 30 day, Stop date: 02/07/13 2:40:00 [facility] glucagon 2013-01-08 07:41:00 No Cory Rickie 1 mg, Route: IM, Drug form: PDR/INJ, PRN, Dosing Weight 90.455, kg, PRN Blood Glucose Results, Start date: 01/08/13 2:41:00, Duration: 30 day, Stop date: 02/07/13 2:40:00 [facility] albuterol-ipratropium 2.5-0.5 mg inhalation solution 01-08 07:39:[address] [place] 3 mL, Route: NE B, Drug Form: SOLN, Dosing Weight 90.455, kg, PRN, PRN Respiratory Protocol, Start date: 01/08/13 2:39:00, Duration: 30 day, Stop date: 02/07/13 2:38:00 Jewels phillips Jovani acetaminophen 2013-01-08 07:39:00 No Cory Rickie 650 mg, 20.3 mL, Route: PO, Drug form: LIQ, Q4H, Dosing Weight 90.455, kg, PRN Pain Score 1-3, For fever > 100.4. Not to exceed 4 grams in 24 hours, Start date: 01/08/13 2:39:00, Duration: 30 day, Stop date: 02/07/13 2:38:00 [facility] DuoNeb inhalation solution 2013-01-08 06:38:00 No A polly Aprielle Madelin 3 ml, Route: INHALATION, Drug Form: SOLN , Dosing Weight 90.455, kg, PRN, PRN Respiratory Protocol, Start date: 01/08/13 1:38:00, Duration: 30 day, Stop date: 02/07/13 1:37:00 [facility] azithromycin + Sodium Chloride 0.9% IV 250 mL 2013-01-08 0 5:48:00 No Rosita Aprielle Renick 500 mg, Route: I VPB, ONCE, Dosing Weight 90.455, kg, Priority: STAT, Start date: 01/08/13 0:48:00, Stop date: 01/08/13 0:48:00 [facility] ceftriaxone + Sodium Chloride 0.9% IV 100 mL 2013-01-08 05 :48:00 No Rosita Aprielle Renick 1 gm, Route: IVP B, ONCE, Dosing Weight 90.455, kg, Priority: STAT, Start date: 01/08/13 0:48:00, Stop date: 01/08/13 0:48:00 [facility] amLODipine 2013-01-08 05:23:00 No Rosita Aprielle Madelin 5 mg, 1 tab, Route: PO, Drug form: TAB, ONCE, Dosing Weight 90.455, kg, Start date: 01/08/13 0:23:00, Stop date: 01/08/13 0:23:00 [facility] tamanna [place] metoprolol tartrate 2013-01-08 05:23:00 No Rosita Aprie lle Renick 50 mg, 1 tab, Route: PO, Drug form: TAB, ONCE, Dosing Weight 90.455, kg, Priority: STAT, Start date: 01/08/13 0:23:00, Stop date: 01/08/13 0:23:00 [facility] Pepcid 2013-01-08 01:56:00 No Rosita Aprielle Renick 40 mg, 1 tab, Route: PO, Drug form: TAB, ONCE, Start date: 01/07/13 20:56:00, Stop date: 01/07/13 20:56:00 [facility] Zantac 300 2013-01-08 01:18:00 No Rosita Aprielle Renick 300 mg, Route: PO, ONCE, Dosing Weight 90.455, kg, Start date: 01/07/13 20:18:00, Stop date: 01/07/13 20:18:00 [facility] albuterol-ipratropium 2.5-0.5 mg inhalation solution 01-08 01:17:00 No Rosita Aprielle Madelin 3 mL, Route : NEB, Dosing Weight 90.455, kg, ONCE, STAT, Start date: 01/07/13 20:17:00, Stop date: 01/07/13 20:17:00 [facility] methylPREDNISolone SODium SUCCinate 2012-09-04 15:00:00 No Nestor Xavier Erickson 20 mg, 0.5 mL, Route : IVP, Drug form: INJ, Daily, Dosing Weight 92.727, kg, Start date: 09/04/12 9:00:00, Duration: 30 day, Stop date: 10/03/12 9:00:00 [facility] NovoLog 2012-09-03 19:30:00 No Nestor Xavier Erickson 10 unit, 0.1 mL, Route: SUB-Q, Drug form: SOLN, ONCE, Dosing Weight 92.5, kg, Start date: 09/03/12 13:30:00, Stop date: 09/03/12 13:30:00 [facility] Vantin 200 mg oral tablet 2012-09-03 17:06:57 Yes Nestor E nrique Erickson 200 mg, 1 tab, PO, Q12H, 14 tab, Substitution Allowed, TAB [facility] Medrol Dosepak 4 mg Tablet 2012-09-03 17:06:31 Yes Nestor Xavier Erickson As directed on package instructions, PO, Daily, Take with or without food, 1 Pack, Substitution AllowedTake with or without food Balbina Hahn albuterol 90 mcg/inh inhalation aerosol 2012-09-03 17:03:0 9 Yes Nestor Xavier Erickson 1 puff, INHALATI ON, QID, PRN, 1 ea, wheezing, Substitution Allowed, Maintenance Balbina Hahn Tussionex [employer] oral suspension, extended release 2012-09-03 17:01:50 Yes Nestor Xavier Erickson 5 ml, PO, Q 12H, PRN, 100 mL, for cough, Substitution Allowed, Maintenance, ER Suspension Rashi mague Jovani atorvastatin 2012-09-03 15:00:00 No Nestor Xavier Erickson 10 mg, 1 tab, Route: PO, Drug form: TAB, QAM, Dosing Weight 92.5, kg, Start date: 09/03/12 9:00:00, Duration: 30 day, Stop date: 10/02/12 9:00:00 [facility] Jovani aspirin 81 mg tablet, chewable 2012-09-03 15:00:00 No Nestor Xavier Ericksno 81 mg, 1 tab, Route: PO, Drug form: CHEW TAB, Daily, Dosing Weight 92.5, kg, Start date: 09/03/12 9:00:00, Duration: 30 day, Stop date: 10/02/12 9:00:00 [facility] Jovani amLODipine 2012-09-03 15:00:00 No Nestor Xavier Erickson 5 mg, 1 tab, Route: PO, Drug form: TAB, BID, Dosing Weight 92.5, kg, Start date: 09/03/12 9:00:00, Duration: 30 day, Stop date: 10/02/12 17:00:00 Balbina Hahn Diovan 2012-09-03 15:00:00 No Nestor Xavier Erickson 320 mg, 2 tab, Route: PO, Drug form: TAB, Daily, Dosing Weight 92.5, kg, Start date: 09/03/12 9:00:00, Duration: 30 day, Stop date: 10/02/12 9:00:00 [facility] Jovani metoprolol extended release 2012-09-03 15:00:00 No Nestor Xavier Erickson 100 mg, 1 tab, Route: PO, Drug form: ERTAB, QAM, Start date: 09/03/12 9:00:00, Duration: 30 day, Stop date: 10/02/12 9:00:00 [facility] NovoLog PenFill 2012-09-03 14:00:00 No Nestor Xavier Erickson Route: SUB-Q, Drug form: SOLN, TID-Meals, Dosing Weight 92.5, kg, Start date: 09/03/12 8:00:00, Duration: 30 day, Stop date: 10/02/12 17:00:00 [facility] NovoLog 2012-09-03 04:19:00 No Nestor Xavier Erickson 10 unit, 0.1 mL, Route: SUB-Q, Drug form: SOLN, ONCE, Dosing Weight 92.5, kg, Priority: NOW, Start date: 09/02/12 22:19:00, Stop date: 09/02/12 22:19:00 [facility] Toprol-XL 50 mg oral tablet, extended release 2012-09-03 0 3:00:00 No Nestor Xavier Erickson 50 mg, 1 tab, Ro emilie: PO, Drug form: ERTAB, QPM, Start date: 09/02/12 21:00:00, Duration: 30 day, Stop date: 10/01/12 21:00:00 [facility] Levemir FlexPen 2012-09-03 03:00:00 No Nestor Xavier Erickson 15 unit, 0.15 mL, Route: SUB-Q, Drug form: INJ, Bedtime, Dosing Weight 92.5, kg, Start date: 09/02/12 21:00:00, Duration: 30 day, Stop date: 10/01/12 21:00:00 [facility] insulin detemir 2012-09-03 03:00:00 No Nestor Xvaier Erickson 25 unit, 0.25 mL, Route: SUB-Q, Drug form: INJ, Bedtime, Dosing Weight 92.5, kg, Start date: 09/02/12 21:00:00, Duration: 30 day, Stop date: 10/01/12 21:00:00 [facility] methylPREDNISolone SODium SUCCinate 2012-09-03 03:00:00 No Nestor Xavier Erickson 40 mg, 1 mL, Route: IVP, Drug form: INJ, Q12H, Dosing Weight 92.727, kg, Start date: 09/02/12 21:00:00, Duration: 30 day, Stop date: 10/02/12 9:00:00 [facility] enoxaparin 2012-09-03 00:00:00 No Nestor Xavier Erickson 40 mg, 0.4 mL, Route: SUB-Q, Drug form: INJ, [id number], Dosing Weight 92.5, kg, Start date: 09/02/12 18:00:00, Duration: 30 day, Stop date: 10/01/12 18:00:00 [facility] Tylenol 2012-09-02 23:46:00 No Nestor Xavier Erickson 650 mg, 2 tab, Route: PO, Drug form: TAB, Q6H, Dosing Weight 92.5, kg, PRN Pain Score 1-3, Start date: 09/02/12 17:46:00, Duration: 30 day, Stop date: 10/02/12 17:45:00 [facility] [place] 5/325 oral tablet 2012-09-02 23:46:00 No Nestor Enr ique Erickson 1 tab, Route: PO, Drug Form: TAB, Dosing Weight 92.5, kg, Q6H, PRN Pain Score 1-5, Start date: 09/02/12 17:46:00, Duration: 30 day, Stop date: 10/02/12 17:45:00 [facility] morphine Sulfate 2012-09-02 23:45:00 No Nestor Xavier Mo k 2 mg, 1 mL, Route: IVP, Drug form: INJ, Q4H, Dosing Weight 92.5, kg, PRN Pain Score 6-10, Start date: 09/02/12 17:45:00, Duration: 30 day, Stop date: 10/02/12 17:44:00 [facility] dextromethorphan-guaifenesin 10 mg-100 mg/5 mL oral liquid 2012-09-02 23:44:00 No Nestor Xavier Erickson 10 ml, Route: PO, Drug Form: SYRP, Dosing Weight 92.5, kg, Q4H, PRN Cough, Start date: 09/02/12 17:44:00, Duration: 30 day, Stop date: 10/02/12 17:43:00 [facility] Tre Gill 2012-09-02 23:44:00 No Nestor Xavier Erickson 100 mg, 1 cap, Route: PO, Drug form: CAP, TID, Dosing Weight 92.5, kg, PRN Cough, Start date: 09/02/12 17:44:00, Duration: 30 day, Stop date: 10/02/12 17:43:00 [facility] Zofran 2012-09-02 23:44:00 No Nestor Xavier Erickson 4 mg, 2 mL, Route: IV, Drug form: INJ, Q6H, Dosing Weight 92.5, kg, PRN Nausea, Start date: 09/02/12 17:44:00, Duration: 30 day, Stop date: 10/02/12 17:43:00 [facility] insulin aspart 2012-09-02 23:44:00 No Nestor Xavier Erickson 6 unit, 0.06 mL, Route: SUB-Q, Drug form: SOLN, TID-Before Meals, Dosing Weight 92.5, kg, PRN Blood Glucose Results, Start date: 09/02/12 17:44:00, Duration: 30 day, Stop date: 10/02/12 17:43:00 [facility] Dextrose 50% Syringe 2012-09-02 23:44:00 No Nestor Enriqu e Erickson 12.5 gm, 25 mL, Route: IVP, Drug Form: INJ, Dosing Weight 92.5, kg, PRN, PRN Blood Glucose Results, Start date: 09/02/12 17:44:00, Duration: 30 day, Stop date: 10/02/12 18:43:00 [facility] glucagon 2012-09-02 23:44:00 No Nestor Xavier Erickson 1 mg, Route: IM, Drug form: PDR/INJ, PRN, Dosing Weight 92.5, kg, PRN Blood Glucose Results, Start date: 09/02/12 17:44:00, Duration: 30 day, Stop date: 10/02/12 18:43:00 [facility] nitroglycerin 0.4 mg sublingual tablet 2012-09-02 23:01:00 No Nestor Xavier Erickson 0.4 mg, 1 tab, R oute: SL, Drug form: TAB, Q5Min, PRN Chest Pain, Start date: 09/02/12 17:01:00, Duration: 30 day, Stop date: 10/02/12 18:00:00 [facility] atropine 2012-09-02 23:01:00 No Nestor Xavier Erickson 0.5 mg, 5 mL, Route: IVP, Drug form: INJ, PRN, PRN Bradycardia, Start date: 09/02/12 17:01:00, Duration: 30 day, Stop date: 10/02/12 18:00:00 [facility] Maxipime + Sodium Chloride 0.9% IV 100 mL 2012-09-02 22:52 :00 No Nestor Xavier Erickson 1 gm, Route: IVP B, [id number], Dosing Weight 92.727, kg, Priority: STAT, Start date: 09/02/12 16:52:00, Duration: 30 day, Stop date: 10/01/12 16:52:00 [facility] Cipro 2012-09-02 22:52:00 No Nestor Xavier Erickson 400 mg, 200 mL, Route: IVPB, Drug form: INJ, [id number], Dosing Weight 92.727, kg, Priority: STAT, Start date: 09/02/12 16:52:00, Duration: 30 day, Stop date: 10/02/12 4:52:00 [facility] Saline Flush 0.9% 2012-09-02 22:52:00 No Nestor Xavier M ok 5 ml, Route: IVP, Drug Form: INJ, Dosing Weight 92.727, kg, PRN, PRN Line Flush, Start date: 09/02/12 16:52:00, Duration: 30 day, Stop date: 10/02/12 17:51:00 [facility] albuterol 0.083% inhalation solution 2012-09-02 22:52:00 No Nestor Xavier Erickson 2.49 mg, Route: NEB, PRN, Dosing Weight 92.727, kg, PRN Respiratory Protocol, Start date: 09/02/12 16:52:00, Duration: 30 day, Stop date: 10/02/12 17:51:00 [facility] albuterol-ipratropium 2.5-0.5 mg inhalation solution 09-02 22:52:00 No Nestor Xavier Erickson 3 mL, Route: NE B, Drug Form: SOLN, Dosing Weight 92.727, kg, PRN, PRN Respiratory Protocol, Start date: 09/02/12 16:52:00, Duration: 30 day, Stop date: 10/02/12 17:51:00 [facility] ipratropium 2012-09-02 22:52:00 No Nestor Xavier Erickson 0.5 mg, Route: NEB, PRN, Dosing Weight 92.727, kg, PRN Respiratory Protocol, Start date: 09/02/12 16:52:00, Duration: 30 day, Stop date: 10/02/12 17:51:00 [facility] NovoLog PenFill 100 units/mL subcutaneous solution 2012-08 22:51:17 Yes Nestor Xavier Erickson sliding scale, SUB-Q, TID-Meals, 5 units for BS 80-120, 6 units for BS 121-150, 7.5 units for 150-200, 9 units for BS 201-250, 10 units for BS 250-300, 12.5 units for BS > 300, 3 ml, Substitution Allowed, SOLN 300 [facility] Dextrose 50% Syringe 2012-09-02 22:51:00 No Nestor Enriqu e Erickson 12.5 gm, 25 mL, Route: IVP, Drug Form: INJ, Dosing Weight 92.727, kg, PRN, PRN Blood Glucose Results, Start date: 09/02/12 16:51:00, Duration: 30 day, Stop date: 10/02/12 17:50:00 [facility] glucagon 2012-09-02 22:51:00 No Nestor Xavier Erickson 1 mg, Route: IM, Drug form: PDR/INJ, PRN, Dosing Weight 92.727, kg, PRN Blood Glucose Results, Start date: 09/02/12 16:51:00, Duration: 30 day, Stop date: 10/02/12 17:50:00 [facility] insulin aspart 2012-09-02 22:51:00 No Nestor Xavier Erickson 2 unit, 0.02 mL, Route: SUB-Q, Drug form: SOLN, TID-Before Meals, Dosing Weight 92.727, kg, PRN Blood Glucose Results, Start date: 09/02/12 16:51:00, Duration: 30 day, Stop date: 10/02/12 16:50:00 [facility] Levemir FlexPen 100 units/mL subcutaneous solution 2012-08 22:49:43 Yes Nestor Xavier Erickson 25 unit, SUB-Q, Bedtime, if BS > 200, 3 ml, Substitution Allowed, SOLN 200 [facility] Toprol-XL 50 mg oral tablet, extended release 2012-09-02 2 2:47:38 Yes Nestor Xavier Erickson 50 mg, 1 tab, PO, QPM, 30 tab, Subs titution Allowed, ERTAB [facility] Cipro 2012-09-02 19:13:00 No Nolan Marta 400 mg, Route: IVPB, ONCE, Dosing Weight 92.727, kg, Priority: STAT, Start date: 09/02/12 13:13:00, Stop date: 09/02/12 13:13:00 [facility] Maxipime 2012-09-02 19:13:00 No Nolan Marta 2 gm, Route: IVPB, ONCE, Dosing Weight 92.727, kg, Priority: STAT, Start date: 09/02/12 13:13:00, Stop date: 09/02/12 13:13:00 [facility] DuoNeb inhalation solution 2012-09-02 18:52:00 No Prade ep Marta 3 ml, Route: INHALATION, Drug Form: SOLN, Dosing Weight 92.727, kg, PRN, PRN Respiratory Protocol, Start date: 09/02/12 12:52:00, Duration: 30 day, Stop date: 10/02/12 13:51:00 [facility] SoluMedrol 2012-09-02 18:52:00 No Nolan Marta 125 mg, Route: IVP, ONCE, Dosing Weight 92.727, kg, Priority: STAT, Start date: 09/02/12 12:52:00, Stop date: 09/02/12 12:52:00 [facility] melva Zithromax 2012-09-02 18:50:00 No Nolan Marta 500 mg, Route: IVPB, ONCE, Dosing Weight 92.727, kg, Priority: STAT, Start date: 09/02/12 12:50:00, Stop date: 09/02/12 12:50:00 [facility] melva Rocephin 1 g/ NS (NaCl 0.9%) 50 mL IV solution 2012-09-02 18:49:00 No Nolan Marta 1 gm, Route: IVP B, Drug form: PDR/INJ, ONCE, Dosing Weight 92.727, kg, Priority: STAT, Start date: 09/02/12 12:49:00, Stop date: 09/02/12 12:49:00 [facility] pantoprazole 2012-06-27 13:30:00 No Taso Mougouris 40 mg, 1 tab, Route: PO, Drug form: ECTAB, Before Breakfast, Dosing Weight 95, kg, Priority: Routine, Start date: 06/27/12 7:30:00, Duration: 30 day, Stop date: 07/26/12 7:30:00 [facility] Levaquin 2012-06-26 17:00:00 No Taso Mougouris 500 mg, 2 tab, Route: PO, Drug form: TAB, [id number], Dosing Weight 95, kg, Start date: 06/26/12 11:00:00, Duration: 30 day, Stop date: 07/25/12 11:00:00 [facility] Levaquin 500 mg oral tablet 2012-06-26 16:21:01 Yes Taso Mougouris 500 mg, 1 tab, PO, [id number], 4 tab, Substitution Allowed, TAB [facility] Levemir 2012-06-24 23:00:00 No Taso Mougouris 15 unit, 0.15 mL, Route: SUB-Q, Drug form: INJ, QPM, Dosing Weight 95, kg, Start date: 06/24/12 17:00:00, Duration: 30 day, Stop date: 07/23/12 17:00:00 [facility] glucagon 2012-06-24 17:35:00 No Taso Mougouris 1 mg, Route: IM, Drug form: PDR/INJ, PRN, Dosing Weight 95, kg, PRN Abnormal Lab Result, Priority: STAT, Start date: 06/24/12 11:35:00, Duration: 30 day, Stop date: 07/24/12 11:34:00 [facility] insulin aspart 2012-06-24 17:35:00 No Taso Mougouris 2 unit, 0.02 mL, Route: SUB-Q, Drug form: SOLN, Bedtime, Dosing Weight 95, kg, PRN Blood Glucose Results, Start date: 06/24/12 11:35:00, Duration: 30 day, Stop date: 07/24/12 11:34:00 [facility] Dextrose 50% Syringe 2012-06-24 17:35:00 No Taso Mougou ris 12.5 gm, 25 mL, Route: IVP, Drug Form: INJ, Dosing Weight 95, kg, PRN, PRN Blood Glucose Results, Start date: 06/24/12 11:35:00, Duration: 30 day, Stop date: 07/24/12 11:34:00 [facility] docusate 2012-06-24 15:00:00 No Asem Souman 100 mg, 1 cap, Route: PO, Drug form: CAP, BID, Dosing Weight 95, kg, Start date: 06/24/12 9:00:00, Duration: 30 day, Stop date: 07/23/12 17:00:00 [facility] Cycloset 2012-06-24 14:30:[address] [place] 3.2 mg, Route: PO, Drug form: TAB, After Breakfast, Dosing Weight 95, kg, Start date: 06/24/12 8:30:00, Duration: 30 day, Stop date: 07/23/12 8:30:00 [facility] Cycloset 3.2mg PO after breakfast-Use pt's home med 2012-06-24 14:30:00 No Taso Mougouris Cycloset 3. 2mg PO after breakfast-Use pt's home med, 3.2 mg, Drug form: MISC, Route: PO, After Breakfast, 06/24/12 8:30:00, Duration: 30 day, Stop date: 07/23/12 8:30:00 [facility] pant[facility]ole 2012-06-24 13:30:00 No Taso Mougouris 40 mg, Route: IVP, Drug form: INJ, Before Breakfast, Dosing Weight 95, kg, Priority: Routine, Start date: 06/24/12 7:30:00, Duration: 30 day, Stop date: 07/23/12 7:30:00 [facility] nitroglycerin 0.4 mg sublingual tablet 2012-06-24 06:03:00 No Taso Mougouris 0.4 mg, 1 tab, R oute: SL, Drug form: TAB, Q5Min, PRN Chest Pain, Start date: 06/24/12 0:03:00, Duration: 30 day, Stop date: 07/24/12 0:02:00 [facility] atropine 2012-06-24 06:03:00 No Taso Mougouris 0.5 mg, 5 mL, Route: IVP, Drug form: INJ, PRN, PRN Bradycardia, Start date: 06/24/12 0:03:00, Duration: 30 day, Stop date: 07/24/12 0:02:00 [facility] Rocephin + Sodium Chloride 0.9% IV 100 mL 2012-06-24 05:00 :[address] [place] 1 gm, Route: IVP B, Drug form: PDR/INJ, Q24H, Dosing Weight 95, kg, Priority: Routine, Start date: 06/23/12 23:00:00, Duration: 30 day, Stop date: 07/22/12 23:00:00 [facility] normal saline 0.9% IV 1,000 mL 2012-06-24 04:20:[address] [place] 1,000 mL, Rate: 100 ml/hr, Infuse over: 10 hr, Route: IV, kg, Total Volume: 1,000, Start date: 06/23/12 22:20:00, Stop date: 06/24/12 23:31:00 [facility] acetaminophen 2012-06-24 04:20:00 No Asem Souman 650 mg, 2 tab, Route: PO, Drug form: TAB, Q8H, Dosing Weight 95, kg, PRN Pain/Fever, Start date: 06/23/12 22:20:00, Duration: 30 day, Stop date: 07/23/12 22:19:00 [facility] ondansetron 2012-06-24 04:20:00 No Asem Souman 4 mg, 2 mL, Route: IVP, Drug form: INJ, Q6H, Dosing Weight 95, kg, PRN Nausea & Vomiting, Start date: 06/23/12 22:20:00, Duration: 30 day, Stop date: 07/23/12 22:19:00 [facility] Saline Flush 0.9% 2012-06-24 04:20:00 No Asem Souman 5 ml, Route: IVP, Drug Form: INJ, Dosing Weight 95, kg, PRN, PRN Line Flush, Start date: 06/23/12 22:20:00, Duration: 30 day, Stop date: 07/23/12 22:19:00 [facility] aspirin 81 mg tablet, chewable 2012-06-24 04:00:[address] [place] 81 mg, 1 tab, Route: PO, Drug form: CHEW TAB, Q24H, Dosing Weight 95, kg, Start date: 06/23/12 22:00:00, Duration: 30 day, Stop date: 07/22/12 22:00:00 [facility] Dextrose 50% Syringe 2012-06-24 03:35:00 No Asem Souman 25 gm, 50 mL, Route: IVP, Drug Form: INJ, Dosing Weight 95, kg, PRN, PRN Blood Glucose Results, Start date: 06/23/12 21:35:00, Duration: 30 day, Stop date: 07/23/12 21:34:00 [facility] glucagon 2012-06-24 03:35:00 No Asem Souman 1 mg, Route: IM, Drug form: PDR/INJ, PRN, Dosing Weight 95, kg, PRN Blood Glucose Results, Start date: 06/23/12 21:35:00, Duration: 30 day, Stop date: 07/23/12 21:34:00 [facility] insulin aspart 2012-06-24 03:35:00 No Asem Souman 1 unit, 0.01 mL, Route: SUB-Q, Drug form: SOLN, TID-Before Meals, Dosing Weight 95, kg, PRN Blood Glucose Results, Start date: 06/23/12 21:35:00, Duration: 30 day, Stop date: 07/23/12 21:34:00 Balbina Hahn chlorthalidone 25 mg oral tablet 2012-06-24 02:34:35 Yes 12.5 mg, 0.5 tab, PO, Daily, Substitution Allowed [facility]ovani Cycloset 0.8 mg oral tablet 2012-06-24 02:25:43 Yes Nnen na N [place] 3.2 mg, 4 tab, PO, After Breakfast, 2 hours after breakfast, Substitution Allowed2 hours after breakfast [facility] Calcium 600 +D oral tablet 2012-06-24 02:24:29 Yes 1 tab, PO, Daily, Substitution Allowed, Maintenance Qnig Cho metoprolol 50 mg oral tablet, extended release 2012-06-24 02:21: 59 Yes 50 mg, 1 tab, PO, BID, Substitution Allowed Balbina Jovani Cycloset 2012-06-24 00:56:18 No Substitutio n Allowed [facility] Osteo Bi-Flex 2012-06-24 00:55:16 Yes 1 tab, PO, Daily, Substitution Allowed, Maintenance [facility] Vitamin D3 1000 intl units oral capsule 2012-06-24 00:54:56 Yes 1,000 IntlUnit, 1 cap, PO, Daily, 100 cap, Substitution Allowed, CAP [facility] aspirin 81 mg tablet, chewable 2012-06-24 00:54:[address] [place] 81 mg, 1 tab, PO, Daily, 30 tab, Substitution Allowed, CHEWTAB [facility] Levemir FlexPen 2012-06-24 00:54:15 Yes 15 unit, SUB-Q, Bedtime, Substitution Allowed [facility] Byetta 5 mcg/0.02 mL subcutaneous solution 2012-06-24 00:54:00 Yes 5 microgram, 0.02 mL, SUB-Q, Daily, Substitution Allowed [facility] atorvastatin 10 mg oral tablet 2012-06-24 00:53:23 Yes 10 mg, 1 tab, PO, QAM, 30 tab, Substitution Allowed, TAB [facility] amLODipine 5 mg oral tablet 2012-06-24 00:53:10 Yes 5 mg, 1 tab, PO, BID, Substitution Allowed [facility] Diovan 320 mg oral tablet 2012-06-24 00:52:33 Yes 320 mg, 1 tab, PO, Daily, 30 tab, Substitution Allowed, TAB [facility] metoprolol 50 mg oral tablet 2012-06-24 00:52:06 No 50 mg, 1 tab, PO, BID, 180 tab, Substitution Allowed, TAB [facility] glimepiride 4 mg oral tablet 2012-06-24 00:51:53 Yes 4 mg, 1 tab, PO, BID, Substitution Allowed Balbina Casiano ermann ciprofloxacin 2012-06-24 00:28:00 No Asem Souman 400 mg, Route: IVPB, ONCE, Dosing Weight 95, kg, Priority: STAT, Start date: 06/23/12 18:28:00, Stop date: 06/23/12 18:28:00 Balbina Hahn Sodium Chloride 0.9% IV 1,000 mL 2012-06-24 00:27:[address] [place] 1,000 mL, Rate: 100 ml/hr, I nfuse over: 10 hr, Route: IV, kg, Total Volume: 1,000, Start date: 06/23/12 18:27:00, Duration: 30 day, Stop date: 07/23/12 18:26:00 Balbina Hahn Motrin 2012-06-23 23:28:00 No Elvis Contreras Marcel 800 mg, Route: PO, Drug form: TAB, ONCE, Dosing Weight 95, kg, Priority: STAT, Start date: 06/23/12 17:28:00, Stop date: 06/23/12 17:28:00 Kasia wayne Hahn Zofran ODT 4 mg oral tablet, disintegrating 2012-06-22 17: 28:[address] [place] 4 mg, 1 tab, PO, BID, PRN, Dissolve tab under tongue, 10 tab, Nausea and Vomiting, Substitution AllowedDissolve tab under tongue [facility] Macrobid 100 mg oral capsule 2012-06-22 17:28:12 Yes Nne dayton N On[place] 100 mg, 1 cap, PO, BID, 14 cap, Substitution Allowed [facility] Sodium Chloride 0.9% (Bolus) IV 1,000 mL 2012-06-22 15:07: [address] 1,000 mL, Rate: 1,000 ml/hr, Infuse over: 1 hr, Route: IV, Dosing Weight 95 kg, Total Volume: 1,000, Bolus dose, Priority: STAT, Start date: 06/22/12 9:07:00, Duration: 1 doses or times, Stop date: 06/22/12 10:06:00 [facility] Saline Flush 0.9% 2012-06-22 15:07:00 No Hari blake 5 mL, Route: IVP, Dosing Weight 95, kg, PRN, PRN Line Flush, Start date: 06/22/12 9:07:00, Duration: 24 hr, Stop date: 06/23/12 9:06:00 [facility] ondansetron 2012-06-22 15:07:[address] 4 mg, Route: IVP, ONCE, Dosing Weight 95, kg, Priority: STAT, Start date: 06/22/12 9:07:00, Stop date: 06/22/12 9:07:00 [facility] Atorvastatin Calcium 10 MG Oral Tablet Atorvastatin Calcium 10 M G Oral Tablet Yes 1 QD TAKE 1 TABLET DAILY. [facility] Levemir 100 UNIT/ML Subcutaneous Solution Levemir 100 UNIT/ML Subcutaneous Solution Yes 15 INJECT 15 UNIT At Bedtime PER PATIENT, DOSE BETWEEN 15-18 UNITS AT BEDTIME, DEPENDING ON BLOOD SUGAR [facility] Vitamin D 50 MCG (1999 [place]) Oral Capsule Vitamin D 50 MCG ( [place]) Oral Capsule Yes 1 QD TAKE 1 CAPSULE DAILY [facility] Ursodiol 300 MG Oral Capsule Ursodiol 300 MG Oral Capsule Y es 1 capsule bid [facility] Albuterol Sulfate 0.63 Mg/3 Ml Vial.neb Albuterol Sulfate 0. 63 Mg/3 Ml Vial.neb Yes 3 Four Times Daily [facility] Pantoprazole Sodium 40 MG Oral Tablet Delayed Release Pantoprazole Sodium 40 MG Oral Tablet Delayed Release Yes 1 QD TAKE 1 TAB LET DAILY. [facility] Apixaban (Eliquis) 2.5 Mg Tablet Apixaban (Eliquis) 2.5 Mg Tablet Yes 2.5 Twice A Day [facility] Eliquis 2.5 MG Oral Tablet Eliquis 2.5 MG Oral Tablet Yes 1 Q0.5D TAKE 1 TABLET TWICE DAILY [facility] Atorvastatin Calcium 10 Mg Tablet Atorvastatin Calcium 10 Mg Tablet Yes 10 Today At 9:00PM [facility] Furosemide 40 MG Oral Tablet Furosemide 40 MG Oral Tablet Y es QD take 20 or 40 QD [facility] Budesonide 0.5 Mg/2 Ml Ampul.neb Budesonide 0.5 Mg/2 Ml Ampul.neb Yes 2 Four Times Daily [facility] Multaq 400 MG Oral Tablet Multaq 400 MG Oral Tablet Yes TAKE 1 TABLET TWICE DAILY, WITH MORNING AND EVENING MEAL x 30 DAYS [facility] Dronedarone (Multaq 400MG Tablets*) 400 Mg Tab Droneda sheldon (Multaq 400MG Tablets*) 400 Mg Tab Yes 400 Twice A Day [facility] Ellura Ellura Yes 36 Daily [facility] Montelukast Sodium 10 MG Oral Tablet Montelukast Sodium 10 MG Oral Tablet Yes QD TAKE 1 TABLET DAILY. [facility] Febuxostat (Uloric) 40 Mg Tablet Febuxostat (Uloric) 40 Mg Tablet Yes 40 Daily [facility] Osteo Bi-Flex Regular Strength TABS Osteo Bi-Flex Regular Strength TA BS Yes TAKE DIRECTED. [facility] Furosemide 40 Mg Tablet Furosemide 40 Mg Tablet Yes 20 Daily [facility] HumaLOG SOLN HumaLOG SOLN Yes 12-15 units wi th each meal on S/S [facility] Insulin Detemir (Levemir) 100 Unit/1 Ml Vial Insulin D etemir (Levemir) 100 Unit/1 Ml Vial Yes 15 Bedtime [facility] Uloric 40 MG Oral Tablet Uloric 40 MG Oral Tablet Yes 1 QD TAKE 1 TABLET DAILY. [facility] Insulin Lispro (Humalog) 100 Unit/1 Ml Cartridge Insul in Lispro (Humalog) 100 Unit/1 Ml Cartridge Yes [facility] Telmisartan 80 MG Oral Tablet Telmisartan 80 MG Oral Tablet Yes QD TAKE 1 TABLET ONCE DAILY. [facility] Montelukast Sodium (Singulair) 10 Mg Tablet Montelukas t Sodium (Singulair) 10 Mg Tablet Yes 10 Bedtime [facility] Nifedipine (Nifedipine Er) 30 Mg Tab.er.24 Nifedipine (Nifedipine Er) 30 Mg Tab.er.24 Yes 30 Daily [facility] Ondansetron Hcl (Zofran*) 4 Mg Tablet Ondansetron Hcl (Zofran*) 4 M g Tablet Yes 8 Every 8 Hours as needed for Nausea And V omiting [facility] Pantoprazole Sodium (Protonix) 40 Mg Tablet. Pantopr azole Sodium (Protonix) 40 Mg Tablet. Yes 40 Daily [facility] Sennosides (Senna Lax) 8.6 Mg Tablet Sennosides (Senna Lax) 8.6 Mg Tablet Yes 8.6 Daily as needed for Constipation [facility] Telmisartan (Micardis) 80 Mg Tablet Telmisartan (Micardis) 80 Mg Tabl et Yes 80 Daily [facility] Ursodiol 300 Mg Capsule Ursodiol 300 Mg Capsule Yes 300 Three Times A Day [facility] Cholecalciferol (Vitamin D3) (Vitamin D3) 2,000 Unit T ablet, Cholecalciferol (Vitamin D3) (Vitamin D3) 2,000 Unit Tablet, 2019-08-19 00:00:00 No [facility] Glucosamine/D3/Boswellia Ilene (Osteo Bi-Flex Caplet) 1 Each Tablet, Glucosamine/D3/Boswellia Ilene (Osteo Bi-Flex Caplet) 1 Each Tablet, 2019-08-19 00:00:00 No [facility] Telmisartan (Micardis) 40 Mg Tab, 40 Mg Oral Telmisart an (Micardis) 40 Mg Tab, 40 Mg Oral 2019-08-19 00:00:00 No 40 Daily [facility] Immunizations Ordered Immunization Name Filled Immunization Name Date Status Comments Source Pneumococcal polysaccharide vaccine, 23 valent 2020-04 13:13:00 Completed [facility] Fluzone Quadrivalent 0.5 ML Intramuscular Suspension Prefill ed Syringe 2020-04-14 10:05:00 Completed [facility] Fluzone Quadrivalent 0.5 ML Intramuscular Suspension 2018-03-22 00:00:00 Completed [facility] Influenza 2016-04-21 00:00:00 [facility] Prevnar 13 Intramuscular Suspension 2015-09-23 16:55:00 Co mpleted [facility] Fluzone Quadrivalent 0.5 ML Intramuscular Suspension 2015-05-04 00:00:00 Completed [facility] Fluzone INJ 2014-04-15 00:00:00 Completed [facility] Pneumovax 23 25 MCG/0.5ML Injection Injectable 2013-08 00:00:00 Completed [facility] Vital Signs Vital Name Observation Time Observation Value Comments Source Systolic blood pressure 2020-05-05 12:43:00 194 mm[Hg] Loca tion: LLE; Position: Sitting [facility] Diastolic blood pressure 2020-05-05 12:43:00 72 mm[Hg] Loc ation: LLE; Position: Sitting [facility] Body height 2020-05-05 12:43:00 62 [in_us] [facility] Weight 2020-05-05 12:43:00 196 [lb_av] [facility] Body mass index (BMI) [Ratio] 2020-05-05 12:43:00 35.85 kg/m2 [facility] Body temperature 2020-05-05 12:43:00 97.5 [degF] Method: Temporal [facility] Heart Rate 2020-05-05 12:43:00 62 /min [facility] Respiratory rate 2020-05-05 12:43:00 16 /min [facility] Weight 2020-04-22 08:50:00 195 [lb_av] [facility] Body mass index (BMI) [Ratio] 2020-04-22 08:50:00 35.67 kg/m2 [facility] Body height 2020-04-22 08:50:00 62 [in_us] [facility] Systolic (mm Hg) 2019-12-22 15:39:00 Rashi rial Jovani Diastolic (mm Hg) 2019-12-22 15:39:00 [facility] Heart Rate 2019-12-22 15:39:00 [facility] Oral (F) 2019-12-22 15:39:00 98.1 F [facility] Height 2019-12-22 15:39:00 154.94 cm [facility] [place] Weight 2019-12-22 15:39:00 [facility] BMI Calculated 2019-12-22 15:39:00 Benjaminjanel yanique [place] Systolic blood pressure 2019-09-30 09:34:00 166 mm[Hg] Loca tion: LUE; Position: Sitting [facility] Diastolic blood pressure 2019-09-30 09:34:00 70 mm[Hg] Loc ation: LUE; Position: Sitting [facility] Body height 2019-09-30 09:34:00 62 [in_us] [facility] Body temperature 2019-09-30 09:34:00 98.2 [degF] Method: Oral [facility] Heart Rate 2019-09-30 09:34:00 65 /min Location: L Brachial Artery; [facility] Systolic blood pressure 2019-09-24 12:06:00 138 mm[Hg] [facility] Diastolic blood pressure 2019-09-24 12:06:00 65 mm[Hg] [facility] Heart rate 2019-09-24 12:06:00 64 /min [facility] Respiratory rate 2019-09-24 12:06:00 17 /min [facility] Body temperature 2019-09-24 11:59:12 35.94 Mirlande [place] [facility] Oxygen saturation in Arterial blood by Pulse oximetry 09-23 11:59:12 92 /min [facility] Body height 2019-09-23 12:55:00 157.5 cm [facility] Body temperature 2019-09-11 15:06:00 98.1 [degF] Method: Temporal [facility] Systolic blood pressure 2019-09-03 09:08:00 120 mm[Hg] Loca tion: LUE; Position: Sitting [facility] Diastolic blood pressure 2019-09-03 09:08:00 54 mm[Hg] Loc ation: LUE; Position: Sitting [facility] Body height 2019-09-03 09:08:00 62 [in_us] [facility] Weight 2019-09-03 09:08:00 204.5 [lb_av] [facility] Body mass index (BMI) [Ratio] 2019-09-03 09:08:00 37.4 kg/m2 [facility] Body temperature 2019-09-03 09:08:00 98.3 [degF] Method: Oral [facility] Heart Rate 2019-09-03 09:08:00 62 /min Location: L Brachial Artery; [facility] Systolic blood pressure 2019-08-28 12:59:00 115 mm[Hg] Loca tion: LUE; Position: Sitting [facility] Diastolic blood pressure 2019-08-28 12:59:00 69 mm[Hg] Loc ation: LUE; Position: Sitting [facility] Body height 2019-08-28 12:59:00 62 [in_us] [facility] Weight 2019-08-28 12:59:00 205 [lb_av] [facility] Body mass index (BMI) [Ratio] 2019-08-28 12:59:00 37.5 kg/m2 [facility] Body temperature 2019-08-28 12:59:00 98.3 [degF] Method: Temporal [facility] Respiratory rate 2019-08-28 12:59:00 16 /min [facility] Heart Rate 2019-08-28 12:59:00 67 /min [facility] Systolic blood pressure 2019-07-31 17:44:58 152 mm[Hg] MD Rios Diastolic blood pressure 2019-07-31 17:44:58 75 mm[Hg] MD Rios Heart rate 2019-07-31 17:44:58 74 /min MD Kuo paxton Body temperature 2019-07-31 17:44:58 35.89 Mirlande MD Ese uriostegui Respiratory rate 2019-07-31 17:44:58 18 /min MD Ese uriostegui Body weight 2019-07-31 17:39:00 94 kg MD Kuo son BMI 2019-07-31 17:39:00 37.65 kg/m2 MD Kuo son Height 2019-06-25 16:44:00 154.94 cm Balbina Hahn Systolic (mm Hg) 2019-06-25 16:44:00 Rashi Hahn Diastolic (mm Hg) 2019-06-25 16:44:00 Benjamin Hahn Heart Rate 2019-06-25 16:44:00 Balbina [facility] Weight 2019-06-25 16:44:00 Balbina [place] BMI Calculated 2019-06-25 16:44:00 Qing Cho BP Systolic 2019-01-26 14:51:00 128 mm[Hg] Location: ANASTASIYA; Positi on: Sitting [facility] BP Diastolic 2019-01-26 14:51:00 73 mm[Hg] Location: ANASTASIYA; Positi on: Sitting [facility] Height 2019-01-26 14:51:00 62 [in_us] [facility] Weight 2019-01-26 14:51:00 209.5625 [lb_av] [facility] Calculated 2019-01-26 14:51:00 38.33 kg/m2 [facility] Temperature 2019-01-26 14:51:00 97.4 [degF] Method: [facility] Heart Rate 2019-01-26 14:51:00 60 /min [facility] Respiration Rate 2019-01-26 14:51:00 16 /min [facility] BMI Calculated 2019-01-06 [facility]:46[facility] [place] Height 2019-01-06 15:46:00 157.48 cm [facility] Weight 2019-01-06 15:46:00 [facility]ani Systolic (mm Hg) 2019-01-06 15:46:00 Rashi riajacqueline Jovani Diastolic (mm Hg) 2019-01-06 15:46:00 [facility] orial [facility] Heart Rate 2019-01-06 15:46:00 [facility] Systolic 2018-11-18 13:01:00 115 mm[Hg] Location: ANASTASIYA; Positi on: Sitting [facility] BP Diastolic 2018-11-18 13:01:00 64 mm[Hg] Location: ANASTASIYA; Positi on: Sitting [facility] Height 2018-11-18 13:01:00 62 [in_us] [facility] Body Mass Index Calculated 2018-11-18 13:01:00 38.07 kg/m2 [facility] Weight 2018-11-18 13:01:00 208.125 [lb_av] [facility] Temperature 2018-11-18 13:01:00 97.8 [degF] Method: Temporal [facility] Heart Rate 2018-11-18 13:01:00 52 /min [facility] Respiration Rate 2018-11-18 13:01:00 16 /min [facility] BP Systolic 2018-11-18 12:59:00 115 mm[Hg] Location: ANASTASIYA; Positi on: Sitting [facility] BP Diastolic 2018-11-18 12:59:00 64 mm[Hg] Location: ANASTASIYA; Positi on: Sitting [facility] Height 2018-11-18 12:59:00 62 [in_us] [facility] Body Mass Index Calculated 2018-11-18 12:59:00 38.07 kg/m2 [facility] Weight 2018-11-18 12:59:00 208.125 [lb_av] Unive [facility] Temperature 2018-11-18 12:59:00 97.8 [degF] Method: Temporal [facility] Heart Rate 2018-11-18 12:59:00 52 /min [facility] Respiration Rate 2018-11-18 12:59:00 16 /min [facility] Height 2018-07-08 16:31:00 157.48 cm [facility] BMI Calculated 2018-07-08 16:31:00 Memori al [facility] Weight 2018-07-08 16:31:00 [facility] [place] Systolic (mm Hg) 2018-07-08 16:31:00 Rashi rial [place] Diastolic (mm Hg) 2018-07-08 16:31:00 [facility] Respitory Rate 2018-07-08 16:31:00 Memori al [place] Heart Rate 2018-07-08 16:31:00 [facility] BP Systolic 2018-07-02 13:02:00 138 mm[Hg] Location: ANASTASIYA; Positi on: Sitting [facility] BP Diastolic 2018-07-02 13:02:00 78 mm[Hg] Location: ANASTASIYA; Positi on: Sitting [facility] Height 2018-07-02 13:02:00 62 [in_us] [facility] Weight 2018-07-02 13:02:00 205.125 [lb_av] [facility] Body Mass Index Calculated 2018-07-02 13:02:00 37.52 kg/m2 [facility] Temperature 2018-07-02 13:02:00 97.6 [degF] Method: Temporal [facility] Respiration Rate 2018-07-02 13:02:00 16 /min [facility] Heart Rate 2018-07-02 13:02:00 74 /min [facility] BMI Calculated 2018-04-09 14:25:00 Memori al [place] Weight 2018-04-09 14:25:00 [facility] [place] Height 2018-04-09 14:25:00 157.48 cm [facility] Systolic (mm Hg) 2018-04-09 14:25:00 Rashi rial [place] Diastolic (mm Hg) 2018-04-09 14:25:00 Mem orial [place] Heart Rate 2018-04-09 14:25:00 [facility] [place] Systolic (mm Hg) 2017-12-09 14:32:00 Rashi rial [facility] Diastolic (mm Hg) 2017-12-09 14:32:00 [facility] Weight 2017-12-09 14:32:00 [facility] [place] Heart Rate 2017-12-09 14:32:00 [facility] Height 2017-12-09 14:32:00 157.48 cm [facility] BMI Calculated 2017-12-09 14:32:00 Memori al [place] BP Systolic 2017-11-19 14:13:00 136 mm[Hg] Location: LUE; Positi on: Sitting [facility] BP Diastolic 2017-11-19 14:13:00 83 mm[Hg] Location: LUE; Positi on: Sitting [facility] Height 2017-11-19 14:13:00 62 [in_us] [facility] Weight 2017-11-19 14:13:00 224 [lb_av] [facility] Body Mass Index Calculated 2017-11-19 14:13:00 40.97 kg/m2 [facility] Temperature 2017-11-19 14:13:00 97.8 [degF] Method: Temporal [facility] Heart Rate 2017-11-19 14:13:00 73 /min [facility] Respiration Rate 2017-11-19 14:13:00 16 /min [facility] BP Systolic 2017-10-18 12:09:00 138 mm[Hg] Location: GAYE; Positi on: Sitting [facility] BP Diastolic 2017-10-18 12:09:00 79 mm[Hg] Location: LUE; Positi on: Sitting [facility] BP Systolic 2017-10-18 12:07:00 147 mm[Hg] Location: [facility] Positi on: Sitting [facility] BP Diastolic 2017-10-18 12:07:00 75 mm[Hg] Location: [facility] Positi on: Sitting [facility] Weight 2017-10-18 12:07:00 217.0625 [lb_av] [facility] Body Mass Index Calculated 2017-10-18 12:07:00 39.7 kg/m2 [facility] Height 2017-10-18 12:07:00 62 [in_us] [facility] Temperature 2017-10-18 12:07:00 97.5 [degF] Method: Temporal [facility] Heart Rate 2017-10-18 12:07:00 64 /min [facility] Respiration Rate 2017-10-18 12:07:00 17 /min [facility] Systolic (mm Hg) 2017-08-05 16:48:00 Rashi rial [place] Diastolic (mm Hg) 2017-08-05 16:48:00 Mem o[facility] Heart Rate 2017-08-05 16:48:00 [facility] [place] BMI Calculated 2017-08-05 16:48:00 Memori al [facility] Weight 2017-08-05 16:48:00 [facility] Height 2017-08-05 16:48:00 157.48 cm [facility] [place] Systolic (mm Hg) 2016-04-09 21:00:00 Rashi rial [place] Diastolic (mm Hg) 2016-04-09 21:00:00 Mem orial [place] Respitory Rate 2016-04-09 21:00:00 Memori al [place] Heart Rate 2016-04-09 21:00:00 [facility] Temperature Oral (F) 2016-04-09 21:00:00 98.1 F [facility] Heart Rate 2016-04-09 16:36:00 [facility] Temperature Oral (F) 2016-04-09 16:36:00 97.8 F [facility] [place] Respitory Rate 2016-04-09 16:36:00 Memori al [place] Systolic (mm Hg) 2016-04-09 16:36:00 Rashi rial [place] Diastolic (mm Hg) 2016-04-09 16:36:00 Mem o[facility] Temperature Oral (F) 2016-04-09 13:00:00 98.2 F [facility] Systolic (mm Hg) 2016-04-09 13:00:00 Rashi rial [place] Diastolic (mm Hg) 2016-04-09 13:00:00 Mem o[facility] Respitory Rate 2016-04-09 13:00:00 Memori al [place] Heart Rate 2016-04-09 13:00:00 [facility] [place] Height 2016-04-07 14:23:00 157.48 cm [facility] [place] BMI Calculated 2016-04-07 14:23:00 Memori al [place] Weight 2016-04-07 14:23:00 [facility] BMI Calculated 2016-04-07 10:55:00 [facility] Weight 2016-04-07 10:55:00 [facility] Height 2016-04-07 10:55:00 167.64 cm [facility] Respitory Rate 2016-04-07 01:39:00 Memori al [facility] Systolic (mm Hg) 2016-04-07 01:39:00 Rashi rial [facility]ovani Diastolic (mm Hg) 2016-04-07 01:39:00 Mem orial [place] Heart Rate 2016-04-07 01:39:00 [facility] Temperature Oral (F) 2016-04-07 01:39:00 98.6 F [facility] Height 2016-04-06 18:18:00 157.48 cm [facility] Weight 2016-04-06 18:18:00 [facility] [place] BMI Calculated 2016-04-06 18:18:00 Memori al [place] Respitory Rate 2016-04-06 18:18:00 [facility] Heart Rate 2016-04-06 18:18:00 [facility] [place] Systolic (mm Hg) 2016-04-06 18:18:00 Rashi rial [place] Diastolic (mm Hg) 2016-04-06 18:18:00 Mem orial [place] Temperature Oral (F) 2016-04-06 18:18:00 98.3 F [facility] [place] Systolic (mm Hg) 2015-10-01 18:38:00 Rashi rial [facility]ovani Diastolic (mm Hg) 2015-10-01 18:38:00 Mem [facility] Respitory Rate 2015-10-01 18:38:00 Memori al [facility] Temperature Oral (F) 2015-10-01 18:38:00 98.2 F [facility] Heart Rate 2015-10-01 18:38:00 [facility] [place] Heart Rate 2015-10-01 16:41:00 [facility] Respitory Rate 2015-10-01 16:41:00 Memori al [facility] Systolic (mm Hg) 2015-10-01 16:41:00 Rashi rial [facility]ovani Diastolic (mm Hg) 2015-10-01 16:41:00 [facility] Systolic (mm Hg) 2015-10-01 14:01:00 Rashi rial [facility] Diastolic (mm Hg) 2015-10-01 14:01:00 [facility] Weight 2015-10-01 14:01:00 [facility] [place] BMI Calculated 2015-10-01 14:01:00 Memori al [place] Height 2015-10-01 14:01:00 157.48 cm [facility] Temperature Oral (F) 2015-10-01 14:01:00 97.6 F [facility] Respitory Rate 2015-10-01 14:01:00 Memori al [place] Heart Rate 2015-10-01 14:01:00 [facility] [place] Temperature Oral (F) 2015-09-22 20:00:00 98.0 F [facility] Respitory Rate 2015-09-22 20:00:00 Memori al [place] Systolic (mm Hg) 2015-09-22 20:00:00 Rashi rial [place] Diastolic (mm Hg) 2015-09-22 20:00:00 [facility] Respitory Rate 2015-09-22 18:45:00 Memori al [place] Systolic (mm Hg) 2015-09-22 18:45:00 Rashi rial [place] Diastolic (mm Hg) 2015-09-22 18:45:00 Mem orial [place] Systolic (mm Hg) 2015-09-22 17:15:00 Rashi rial [facility] Diastolic (mm Hg) 2015-09-22 17:15:00 Mem orial [place] Respitory Rate 2015-09-22 17:15:00 Memori al [facility] Height 2015-09-22 14:23:00 157.48 cm [facility] BMI Calculated 2015-09-22 14:23:00 [facility] al [facility] Weight 2015-09-22 14:23:00 [facility] [place] Temperature Oral (F) 2015-09-22 14:23:00 98.2 F [facility] [place] Heart Rate 2015-09-22 14:23:00 [facility] [place] Respitory Rate 2015-05-02 20:26:00 Memori al [facility] Systolic (mm Hg) 2015-05-02 20:26:00 Rashi rial [facility] Diastolic (mm Hg) 2015-05-02 20:26:00 Mem orial [place] Heart Rate 2015-05-02 20:26:00 [facility] Temperature Oral (F) 2015-05-02 20:26:00 98.0 F [facility] [place] Height 2015-05-02 16:24:00 157.48 cm [facility] [place] BMI Calculated 2015-05-02 16:24:00 Memori al [place] Weight 2015-05-02 16:24:00 [facility] [place] Respitory Rate 2015-05-02 16:24:00 Memori al [facility] Heart Rate 2015-05-02 16:24:00 [facility] Systolic (mm Hg) 2015-05-02 16:24:00 Rashi rial [facility] Diastolic (mm Hg) 2015-05-02 16:24:00 Mem o[facility] Temperature Oral (F) 2015-05-02 16:24:00 97.7 F [facility] Temperature Oral (F) 2015-03-01 18:17:00 98.1 F [facility] [place] Heart Rate 2015-03-01 18:17:00 [facility] Respitory Rate 2015-03-01 18:17:00 Memori al [place] Systolic (mm Hg) 2015-03-01 18:17:00 Rashi rial [place] Diastolic (mm Hg) 2015-03-01 18:17:00 Mem orial [place] Temperature Oral (F) 2015-03-01 12:45:00 98.1 F [facility] Systolic (mm Hg) 2015-03-01 12:45:00 Rashi rial [facility] Diastolic (mm Hg) 2015-03-01 12:45:00 Mem orial [place] Respitory Rate 2015-03-01 12:45:00 Memori al [facility] Heart Rate 2015-03-01 12:45:00 [facility] Respitory Rate 2015-03-01 11:51:00 [facility] Heart Rate 2015-03-01 09:00:00 [facility] [place] Systolic (mm Hg) 2015-03-01 09:00:00 Rashi rial [place] Diastolic (mm Hg) 2015-03-01 09:00:00 Mem orial [facility] Temperature Oral (F) 2015-03-01 09:00:00 97.7 F [facility] BMI Calculated 2015-02-27 13:58:00 Memori al [place] Weight 2015-02-27 13:58:00 [facility] [place] Height 2015-02-27 13:58:00 157.48 cm [facility] [place] Height 2015-02-27 11:31:00 157.48 cm [facility] [place] BMI Calculated 2015-02-27 11:31:00 Memori al [place] Weight 2015-02-27 11:31:00 [facility] BMI Calculated 2015-02-27 06:31:00 Memori al [place] Weight 2015-02-27 06:31:00 [facility] Height 2015-02-27 06:31:00 157.48 cm [facility] Systolic (mm Hg) 2014-10-10 19:01:00 Rashi rial [facility]ovani Diastolic (mm Hg) 2014-10-10 19:01:00 Mem o[facility] Respitory Rate 2014-10-10 19:01:00 Memori al [place] Respitory Rate 2014-10-10 18:36:00 Memori al [place] Systolic (mm Hg) 2014-10-10 18:36:00 Rashi rial [place] Diastolic (mm Hg) 2014-10-10 18:36:00 Mem orial [place] Respitory Rate 2014-10-10 16:54:00 Memori al [place] Systolic (mm Hg) 2014-10-10 16:04:00 Rashi rial [facility] Diastolic (mm Hg) 2014-10-10 16:04:00 [facility] Heart Rate 2014-10-10 16:04:00 [facility] [place] Temperature Oral (F) 2014-10-10 16:04:00 97.6 F [facility] [place] BMI Calculated 2014-10-10 16:04:00 [facility] Weight 2014-10-10 16:04:00 [facility] [place] Height 2014-10-10 16:04:00 157.48 cm [facility] [place] Heart Rate 2014-08-23 03:00:00 [facility] [place] Temperature Oral (F) 2014-08-23 03:00:00 98.1 F [facility] Diastolic (mm Hg) 2014-08-23 03:00:00 Mem orial [place] Systolic (mm Hg) 2014-08-23 03:00:00 Rashi rial [facility]ovani Diastolic (mm Hg) 2014-08-23 01:26:00 Mem orial [place] Systolic (mm Hg) 2014-08-23 01:26:00 Rashi rial [place] Temperature Oral (F) 2014-08-23 01:26:00 98.1 F [facility] [place] Respitory Rate 2014-08-23 01:26:00 Memori al [place] Heart Rate 2014-08-23 01:26:00 [facility] Respitory Rate 2014-08-23 00:48:00 Memori al [place] Heart Rate 2014-08-23 00:48:00 [facility] [place] Diastolic (mm Hg) 2014-08-23 00:48:00 Mem o[facility] Systolic (mm Hg) 2014-08-23 00:48:00 Rashi rial [facility] Temperature Oral (F) 2014-08-22 23:19:00 98.1 F [facility] Respitory Rate 2014-08-22 23:19:00 Memori al [place] BMI Calculated 2014-08-22 23:19:00 [facility] Weight 2014-08-22 23:19:00 [facility] Height 2014-08-22 23:19:00 157.48 cm [facility] [place] Diastolic (mm Hg) 2014-05-16 22:27:00 Mem o[facility] Respitory Rate 2014-05-16 22:27:00 Memori al [place] Heart Rate 2014-05-16 22:27:00 [facility] Systolic (mm Hg) 2014-05-16 22:27:00 Rashi rial [facility] Systolic (mm Hg) 2014-05-16 21:20:00 Rashi rial [facility] Diastolic (mm Hg) 2014-05-16 21:20:00 Mem [facility] Heart Rate 2014-05-16 21:20:00 [facility] [place] Respitory Rate 2014-05-16 21:20:00 Memori al [place] Respitory Rate 2014-05-16 18:08:00 [facility] Heart Rate 2014-05-16 17:02:00 [facility] Diastolic (mm Hg) 2014-05-16 17:02:00 Mem o[facility] Systolic (mm Hg) 2014-05-16 17:02:00 Rashi rial [place] Temperature Oral (F) 2014-05-16 17:02:00 98.1 F [facility] [place] Weight 2014-05-16 17:02:00 [facility] [place] BMI Calculated 2014-05-16 17:02:00 Memori al [place] Height 2014-05-16 17:02:00 157.48 cm [facility] [place] Systolic (mm Hg) 2013-01-09 20:30:00 Rashi rial [place] Diastolic (mm Hg) 2013-01-09 20:30:00 Mem orial [place] Respitory Rate 2013-01-09 20:30:00 Memori al [place] Temperature Oral (F) 2013-01-09 20:30:00 97.8 F [facility] [place] Heart Rate 2013-01-09 20:30:00 [facility] [place] Diastolic (mm Hg) 2013-01-09 17:00:00 Mem o[facility] Systolic (mm Hg) 2013-01-09 17:00:00 Rashi rial [place] Respitory Rate 2013-01-09 17:00:00 Memori al [facility] Temperature Oral (F) 2013-01-09 17:00:00 97.4 F [facility] [place] Heart Rate 2013-01-09 17:00:00 [facility] [place] Respitory Rate 2013-01-09 13:08:00 Mem[facility] al [facility] Systolic (mm Hg) 2013-01-09 13:00:00 Rashi rial [place] Temperature Oral (F) 2013-01-09 13:00:00 97.3 F [facility] [place] Heart Rate 2013-01-09 13:00:00 [facility] Diastolic (mm Hg) 2013-01-09 13:00:00 Mem orial [place] Height 2013-01-08 07:47:00 157.48 cm [facility] Weight 2013-01-08 07:47:00 [facility] Weight 2013-01-08 00:46:00 [facility] [place] Height 2013-01-08 00:46:00 157.48 cm [facility] [place] Heart Rate 2012-09-03 18:00:00 [facility] Respitory Rate 2012-09-03 18:00:00 Memori al [place] Temperature Oral (F) 2012-09-03 18:00:00 98.4 F [facility] [place] Systolic (mm Hg) 2012-09-03 18:00:00 Rashi rial [place] Diastolic (mm Hg) 2012-09-03 18:00:00 Mem orial [place] Temperature Oral (F) 2012-09-03 13:54:00 97.8 F [facility] Respitory Rate 2012-09-03 13:54:00 [facility] Heart Rate 2012-09-03 13:54:00 [facility] Systolic (mm Hg) 2012-09-03 13:54:00 Rashi rial [facility] Diastolic (mm Hg) 2012-09-03 13:54:00 Mem orial [place] Respitory Rate 2012-09-03 12:14:00 Memori al [place] Heart Rate 2012-09-03 10:00:00 [facility] [place] Temperature Oral (F) 2012-09-03 10:00:00 97.6 F [facility] Diastolic (mm Hg) 2012-09-03 10:00:00 Mem orial [place] Systolic (mm Hg) 2012-09-03 10:00:00 Rashi rial [place] Height 2012-09-02 23:16:00 157.48 cm [facility] Weight 2012-09-02 23:16:00 [facility] Height 2012-09-02 17:51:00 157.48 cm [facility] [place] Weight 2012-09-02 17:51:00 [facility] [place] Respitory Rate 2012-06-26 16:17:00 [facility] al [facility] Temperature Oral (F) 2012-06-26 14:00:00 97.8 F [facility] [place] Diastolic (mm Hg) 2012-06-26 14:00:00 Mem orial [place] Heart Rate 2012-06-26 14:00:00 [facility] Systolic (mm Hg) 2012-06-26 14:00:00 Rashi rial [facility] Respitory Rate 2012-06-26 14:00:00 Memori al [place] Respitory Rate 2012-06-26 10:00:00 Memori al [place] Temperature Oral (F) 2012-06-26 10:00:00 98.0 F [facility] [place] Heart Rate 2012-06-26 10:00:00 [facility] Systolic (mm Hg) 2012-06-26 10:00:00 Rashi rial [place] Diastolic (mm Hg) 2012-06-26 10:00:00 Mem orial [place] Diastolic (mm Hg) 2012-06-26 06:00:00 Mem orial [place] Systolic (mm Hg) 2012-06-26 06:00:00 Rashi bowser [facility] Heart Rate 2012-06-26 06:00:00 [facility] Temperature Oral (F) 2012-06-26 06:00:00 98.1 F [facility] Weight 2012-06-23 23:24:00 [facility] Height 2012-06-23 23:24:00 177.80 cm [facility] Height 2012-06-22 14:47:00 157.48 cm [facility] Weight 2012-06-22 14:47:00 [facility] Procedures Procedure Date / Time Performed Performing Clinician Sourc e US ABDOMEN COMPLETE 2020-05-09 08:55:00 Elvin Lopez I [facility] [QL] CBC (INCLUDES DIFF/PLT) 2020-04-22 00:00:00 [facility] [QL] CMP W/EGFR 2020-04-22 00:00:00 [facility] [Q] LIPID PANEL WITH REFLEX TO DIRECT LDL 2020-04-22 00:00:00 [facility] [QL] TSH, 3RD GENERATION W/REFLEX TO FT4 2020-04-22 00:00:00 [facility] [Q] HEMOGLOBIN A1C WITH MPG 2020-04-22 00:00:00 [facility] POC GLUCOSE 2019-09-24 12:00:00 Steven Mcfarland POC GLUCOSE 2019-09-24 08:26:00 Steven Mcfarland HEMOGLOBIN A1C 2019-09-24 04:00:00 Steven Mcfarland HC COMPLETE BLD COUNT W/AUTO DIFF 2019-09-24 04:00:00 Alfredo Mcfarland BASIC METABOLIC PANEL 2019-09-24 04:00:00 Steven Mcfarland B NATRIURETIC PEPTIDE 2019-09-24 04:00:00 Steven Mcfarland ESTIMATED GFR 2019-09-24 04:00:00 Steven Mcfarland URINE CULTURE 2019-09-24 01:26:00 Steven Mcfarland ethodi URINALYSIS SCREEN AND MICROSCOPY, WITH REFLEX TO CULTURE 01:26:00 Steven Mcfarland POC GLUCOSE 2019-09-23 23:17:00 Steven Mcfarland ethodi MRI LUMBAR SPINE WO CONTRAST 2019-09-23 18:53:00 Marina Rasheed HC COMPLETE BLD COUNT W/AUTO DIFF 2019-09-23 13:32:00 Vishal Rasheed COMPREHENSIVE METABOLIC PANEL 2019-09-23 13:32:00 Marina Rasheed ESTIMATED GFR 2019-09-23 13:32:00 Marina Rsaheed Meth odist [[facility]] CULTURE, URINE, ROUTINE 2019-09-11 00:00:00 [facility] [[facility]] URINALYSIS, COMPLETE 2019-09-11 00:00[facility] CULTURE, URINE, ROUTINE 2019-09-09 00:00:00 [facility] [[facility]] CBC (INCLUDES DIFF/PLT) 2019-09-03 00:00:00 [facility] [[facility]] CMP W/EGFR 2019-09-03 00:00:00 [facility] [[facility]] CULTURE, URINE, ROUTINE 2019-09-03 00:00:00 [facility] [[facility]] CULTURE, URINE, ROUTINE 2019-01-26 00:00:00 [facility] [[facility]] CMP W/EGFR 2018-11-18 00:00:00 [facility] [[facility]] CBC (INCLUDES DIFF/PLT) 2018-11-18 00:00:00 [facility] [[facility]] CULTURE, URINE, ROUTINE 2018-11-18 00:00:00 [facility] Eye examination<sup>1</sup> 2017-11-19 05:00:00 Balbina Hahn Hysterectomy 2017-06-24 06:00:00 [facility] Eye examination<sup>2</sup> 2016-11-16 05:00:00 Balbina Hahn History of Arthrotomy Of Knee With Open Meniscus Repair [facility] History of Inguinal Hernia Repair [facility] Arthroscopy of knee with meniscus repair [facility] Cataract surgery [facility] n Hernia repair [facility] Arthroscopy of knee with meniscus repair [facility] Cataract surgery [facility] n Hernia repair [facility] Diabetic retinal eye exam<sup>2</sup> [facility] Plan of Care Planned Activity Planned Date Details Comments Source Future Scheduled Test 2020-02-20 00:00:00 INFLUENZA VACCINE [code = INFLUENZA VACCINE] [facility] Diagnostic Test Pending 2019-01-26 00:00:00 [[facility]] CULTURE, U RINE, ROUTINE [code = [[facility]] CULTURE, URINE, ROUTINE] [facility] Future Scheduled Test 2013-02-04 00:00:00 Hemoglobin A1c henri surement (procedure) [code = 71032676] [facility] 1999-08-23 00:00:00 MEDICARE ANNUAL WE LLNESS (YEAR 2 or FIRST YEAR if no IPPE) [code = MEDICARE ANNUAL WELLNESS (YEAR 2 or FIRST YEAR if no IPPE)] [facility] r Future Scheduled Test 1983 00:00:00 SHINGLES VACCINES (#1) [code = SHINGLES VACCINES (#1)] [facility] Future Scheduled Test 1943 00:00:00 DIABETIC EYE EXAM [code = DIABETIC EYE EXAM] [facility] Future Scheduled Test 1943 00:00:00 Diabetic foot exam ination (regime/therapy) [code = 580956858] [facility] Future Scheduled Test 1943 00:00:00 Urine screening fo r protein (procedure) [code = 395375930] [facility] Future Scheduled Test 1943 00:00:00 DIABETIC FOOT EXAM [code = DIABETIC FOOT EXAM] [facility] Future Scheduled Test 1933 00:00:00 DIABETES: RETINAL EYE EXAM [code = DIABETES: RETINAL EYE EXAM] [facility] Encounters Start Date/Time End Date/Time Encounter Type Admission Type [facility] Care Department Encounter ID Source 2020-05-05 12:30:00 2020-05-05 12:30:00 Appointment; NELIDA SHERMAN PNELIDA GARCIA PRadha [facility] [id number] [facility] 2020-05-03 14:37:27 2020-05-04 23:59:59 Outpatient [facility] [id number] 2020-04-28 15:04:52 2020-04-29 23:59:59 Outpatient [facility] [id number] 2020-04-22 09:45:00 2020-04-22 09:45:00 Appointment; MIRTHA MOLINA M.D. MURPHY, THOMAS, M.D. [facility] [id number] [facility] 2020-04-22 09:00:00 2020-04-22 09:00:00 Appointment; MIRTHA MOLINA M.D. MURPHY, THOMAS, M.D. [facility] [id number] [facility] 2020-04-21 00:00:00 2020-04-21 00:00:00 Outpatient DAYANA DOMINGUEZ MDA MDA [id number] MD Rios 2020-04-14 11:00:00 2020-04-14 11:00:00 Appointment; MENA WINKLER M.D. JAYSWAL, MALAY, M.D. [facility] [id number] [facility] 2020-03-29 10:13:43 2020-03-30 23:59:59 Outpatient MHMG MHMG [id number] 2020-03-29 10:13:14 2020-03-30 23:59:59 Outpatient [facility] [id number] 2020-02-09 08:06:37 2020-02-10 23:59:59 Outpatient [facility] [id number] 2020-01-19 11:07:53 2020-01-19 17:02:52 Outpatient GUY TEDDYYousuf DAYANA EL MDA MDA [id number] MD Rios 2019-12-22 10:40:00 2019-12-22 23:59:59 Outpatient Em Hansen MHMG MH[facility] [id number] 2019-12-22 10:40:00 2019-12-22 10:40:00 Outpatient Em Hansen MHMG MH[facility] [id number] 2019-12-15 14:10:47 2019-12-16 23:59:59 Outpatient MHMG [facility] [id number] 2019-12-04 15:15:00 2019-12-04 15:15:00 Appointment; MIRTHA MOLINA M.D. MURPHY, THOMAS, M.D. [facility] [id number] [facility] 2019-10-05 11:08:50 2019-10-06 23:59:59 Outpatient [facility]MG [facility] [id number] 2019-09-30 09:30:00 2019-09-30 09:30:00 Appointment; MIRTHA MOLINA M.D. MURPHY, THOMAS, M.D. [facility] [id number] [facility] 2019-09-23 00:00:00 2019-09-24 00:00:00 Outpatient AI [facility] [id number] [facility] 2019-09-11 11:15:00 2019-09-11 11:15:00 Appointment; TERI YUSUF P.A. CRUZ, LETICIA, P.A. [facility], [address] [id number] [facility] 2019-09-10 11:15:00 2019-09-10 11:15:00 Appointment; TERI YUSUF P.A. CRUZ, LETICIA, P.A. [facility] [id number] [facility] 2019-09-09 16:00:00 2019-09-09 16:00:00 Appointment; TERI YUSUF P.A. CRUZ, LETICIA, P.A. [facility] [id number] [facility] 2019-09-07 11:26:00 2019-09-07 14:00:00 Departed Emergency Room 1 AJ MADRID [facility] [id number] [facility] 2019-09-03 09:00:00 2019-09-03 09:00:00 Appointment; NELIDA SHERMAN P.A. CAMPOS, BERTHA, P.A. [facility], [address] [id number] [facility] 2019-08-27 10:25:00 2019-08-28 23:59:59 Outpatient MHMG [facility] [id number] 2019-08-28 13:30:00 2019-08-28 13:30:00 Appointment; PA ROA M.D. MOHEYUDDIN, AMINA, M.D. [facility] [id number] [facility] 2019-08-19 11:36:00 2019-08-26 11:27:00 Discharged Inpatient 1 DEZ RODRIGUEZ [facility] [id number] [facility] 2019-08-17 15:01:29 2019-08-18 23:59:59 Outpatient MHMG MH[facility] [id number] 2019-08-14 12:16:56 2019-08-15 23:59:59 Outpatient MHMG [facility] [id number] 2019-08-14 12:12:07 2019-08-15 23:59:59 Outpatient MHMG MHMG [id number] 2019-08-14 11:43:57 2019-08-15 23:59:59 Outpatient MHMG [facility] [id number] 2019-08-03 08:27:42 2019-08-04 23:59:59 Outpatient MHMG [facility] [id number] 2019-07-08 07:58:21 2019-07-09 23:59:59 Outpatient MHMG [facility] [id number] 2019-06-25 10:40:00 2019-06-25 23:59:59 Outpatient Em Hansen [facility]MG MH[facility] [id number] 2019-05-25 12:04:13 2019-05-26 23:59:59 Outpatient MHMG MHMG [id number] 2019-05-25 12:03:47 2019-05-26 23:59:59 Outpatient MHMG [facility] [id number] 2019-05-11 08:07:43 2019-05-12 23:59:59 Outpatient MHMG MHMG [id number] 2019-05-04 08:43:47 2019-05-05 23:59:59 Outpatient MHMG [facility] [id number] 2019-01-30 13:23:45 2019-01-31 23:59:59 Outpatient MHMG MHMG [id number] 2019-01-26 14:45:00 2019-01-26 14:45:00 Appointment; NELIDA SHERMAN P.A. CAMPOS, BERTHA, P.A. [facility], [address] [id number] [facility] 2019-01-06 10:40:00 2019-01-06 23:59:59 Outpatient Jade Em M MHMG MHMG [id number] 2018-11-18 12:45:00 2018-11-18 12:45:00 Appointment; NELIDA SHERMAN P.A. CAMPOS, BERTHA, P.A. [facility] [address] [id number] [facility] 2018-10-07 13:54:00 2018-10-08 23:59:59 Outpatient MHMG MHMG [id number] 2018-09-22 10:04:00 2018-09-23 23:59:59 Outpatient MHMG MH[facility] [id number] 2018-09-16 11:38:00 2018-09-16 13:31:00 Departed Emergency Room 1 SOILANellieNALLELY [facility] [id number] [facility] 2018-08-29 15:43:00 2018-08-30 23:59:59 Outpatient MHMG [facility] [id number] 2018-08-06 08:46:00 2018-08-07 23:59:59 Outpatient MHMG [facility] [id number] 2018-07-09 10:12:00 2018-07-10 23:59:59 Outpatient MHMG MH[facility] [id number] 2018-07-08 10:40:00 2018-07-08 23:59:59 Outpatient Em Hansen MHMG MHMG [id number] 2018-07-02 13:00:00 2018-07-02 13:00:00 Appointment; TERI YUSUF P.A. CRUZ, LETICIA, P.A. [facility] [id number] [facility] 2018-06-13 09:27:00 2018-06-14 23:59:59 Outpatient MHMG MHMG [id number] 2018-06-03 15:37:00 2018-06-04 23:59:59 Outpatient MHMG MHMG [id number] 2018-05-25 13:39:00 2018-05-25 18:53:00 Departed Emergency Room 1 CHRIS GARCIA [facility] [id number] [facility] 2018-05-23 09:40:00 2018-05-23 09:40:00 Outpatient Em Hansen MHMG MHMG [id number] 2018-04-09 09:20:00 2018-04-09 23:59:59 Outpatient Em Hansen MHMG MH[facility] [id number] 2018-03-13 10:40:00 2018-03-13 10:40:00 Outpatient Em Hansen [facility]MG MH[facility] [id number] 2018-03-07 09:16:00 2018-03-08 23:59:59 Outpatient MHMG MHMG [id number] 2017-12-31 20:55:00 2017-12-31 22:00:00 Departed Emergency Room [facility] [id number] [facility] 2017-12-18 08:34:00 2017-12-19 23:59:59 Outpatient MHMG MHMG [id number] 2017-12-09 08:31:00 2017-12-10 23:59:59 Outpatient MHMG MHMG [id number] 2017-12-09 09:20:00 2017-12-09 23:59:59 Outpatient Em Hansen MHMG MHMG [id number] 2017-11-20 13:51:00 2017-11-21 23:59:59 Outpatient MHMG MHMG [id number] 2017-11-19 14:15:00 2017-11-19 14:15:00 Appointment; NELIDA SHERMAN P.A. CAMPOS, BERTHA, P.A. [facility] [address] [id number] [facility] 2017-11-12 10:16:00 2017-11-13 23:59:59 Outpatient MHMG MHMG [id number] 2017-11-08 12:24:00 2017-11-09 23:59:59 Outpatient MHMG MHMG [id number] 2017-10-28 09:31:00 2017-10-29 23:59:59 Outpatient MHMG MHMG [id number] 2017-10-28 09:31:00 2017-10-29 23:59:59 Outpatient MHMG MHMG [id number] 2017-10-18 11:30:00 2017-10-18 11:30:00 Appointment; RACHEL PENNY M.D. SATTAR, BEENA, M.D. [facility] [id number] [facility] 2017-09-09 09:26:00 2017-09-10 23:59:59 Outpatient MHMG MHMG [id number] 2017-08-05 10:40:00 2017-08-05 23:59:59 Outpatient Em Hansen M MHMG MHMG [id number] 2017-08-05 10:40:00 2017-08-05 23:59:59 Outpatient ShiEm jacobson MHMG MHMG [id number] 2017-08-05 10:40:00 2017-08-05 23:59:59 Outpatient Em Hansen [facility] [id number] 2017-07-26 09:06:00 2017-07-27 23:59:59 Outpatient MHMG MHMG [id number] 2017-07-09 10:40:00 2017-07-10 23:59:59 Outpatient MHMG MHMG [id number] 2017-04-29 10:30:00 2017-04-29 10:30:00 Appointment; NANCY TAPIA M.D. BORTOLOTTI, JULIE, M.D. [facility] UTP [id number] [facility] 2017-04-02 14:45:00 2017-04-02 14:45:00 Appointment; NELIDA SHERMAN P.A. CAMPOS, BERTHA, P.A. [facility] UTP [id number] [facility] 2017-03-07 13:15:00 2017-03-07 13:15:00 Appointment; TERI YUSUF P.A. CRUZ, LETICIA, P.A. UTP UTP [id number] [facility] 2017-02-01 09:30:00 2017-02-01 09:30:00 Appointment; JACKSON MARTINEZ M.D. VAZQUEZ, NOEMI, M.D. [facility] UTP [id number] [facility] 2017-01-09 11:00:00 2017-01-09 23:59:00 Outpatient Fiona Molina OIB OIB [id number] 2017-01-09 10:15:00 2017-01-09 10:15:00 Appointment; NELIDA SHERMAN P.A. CAMPOS, BERTHA, P.A. UTP UTP [id number] [facility] 2017-01-05 09:30:00 2017-01-05 09:30:00 Appointment; MODESTO CURRAN NP HOANG, CHRISTINA, NP UTP UTP [id number] [facility] 2016-12-28 12:45:00 2016-12-28 12:45:00 Appointment; NELIDA SHERMAN P.A. CAMPOS, BERTHA, P.A. RADHA U[facility] [id number] [facility] 2016-12-25 10:00:00 2016-12-25 10:00:00 Appointment; NELIDA SHERMAN P.A. CAMPOS, BERTHA, P.A. UTP UTP [id number] [facility] 2016-11-02 12:30:00 2016-11-02 12:30:00 Appointment; EB MCCLELLAND N P BECK, SHERI, NP UTP [facility] [address] [id number] [facility] 2016-09-28 13:15:00 2016-09-28 13:15:00 Appointment; NELIDA SHERMAN P.A. CAMPOS, BERTHA, P.A. RADHA [facility] [address] [id number] [facility] 2016-08-29 10:45:00 2016-08-29 10:45:00 Appointment; TERI YUSUF P.A. CRUZ, LETICIA, P.A. U[facility] UTP [id number] [facility] 2016-06-19 10:30:00 2016-06-19 10:30:00 Appointment; NANCY TAPIA M.D. BORTOLOTTI, JULIE, M.D. [facility] UTP [id number] [facility] 2016-06-07 11:00:00 2016-06-07 11:00:00 Appointment; NANCY TAPIA M.D. BORTOLOTTI, JULIE, M.D. [facility] UTP [id number] [facility] 2016-05-10 12:45:00 2016-05-10 23:59:00 Outpatient Fiona Hansen OIH MHOIH [id number] 2016-04-25 11:15:00 2016-04-25 11:15:00 Appointment; NANCY TAPIA M.D. BORTOLOTTI, JULIE, M.D. [facility] UTP [id number] [facility] 2016-04-16 12:31:00 2016-04-16 23:59:00 Outpatient MoellerJair bernsteinmerrittjacqueline MHSE MHSE [id number] 2016-04-07 05:45:00 2016-04-09 17:37:00 Outpatient Aviva Rasmussen MHSE MHSE [id number] 2016-04-06 13:16:00 2016-04-06 21:29:00 Outpatient Martín Angeles MHSE MHSE [id number] 2016-03-16 11:22:00 2016-03-16 23:59:00 Outpatient Jair Moeller MHHOIP HOIP [id number] 2015-11-25 16:00:00 2015-11-25 16:00:00 Appointment; EDDIE SUN M.D. WILLISTON, HUBERT, M.D. [facility] UTP [id number] [facility] 2015-10-01 08:00:00 2015-10-01 12:39:00 Outpatient Jaxson Buchanan MHSE MHSE [id number] 2015-09-22 08:22:00 2015-09-22 14:22:00 Outpatient Ritesh Richards MHSE MHSE [id number] 2015-05-02 11:22:00 2015-05-02 15:28:00 Outpatient Debby Amato MHSE MHSE [id number] 2015-02-27 01:29:00 2015-03-01 15:30:00 Outpatient Alejandro Herzog MHSE MHSE [id number] 2014-10-10 11:03:00 2014-10-10 14:05:00 Outpatient Nikki Cortes Robin moshe [facility] [id number] 2014-08-22 17:18:00 2014-08-22 21:05:00 Outpatient Jaxson Buchanan [facility] [id number] 2014-05-16 11:36:00 2014-05-16 17:31:00 Outpatient Milton Owens [facility] [id number] 2013-06-22 17:32:31 2013-06-22 17:32:31 Outpatient [facility] [id number] Results Test Description Test Time Test Comments Results Result Comments Source R 1 VEW - HOPD 2020-05-10 00:24:00 [facility]ENTER[facility] GEOVANI ANDERSEN : 1935 Sex: F [place] [address] Patient Name: GEOVANI ANDERSEN MR #: [id number] : 1935 Age/Sex: 84/F Req #: [id number] [facility]ician: Ordered by: ALESSIA BARAKAT MD Report #: [id number] Location: [facility] Room/Bed: Procedure: [id number] HOPD/CXR 1 [facility] Exam Date: 05/10/20 Exam Time: 2351 REPORT STATUS: Signed EXAMINATION: CXR 1 [facility] INDICATION: AFib, heart failure COMPARISON: Chest x-ray 09/16/2018 FINDINGS: TUBES and LINES: None. LUNGS: Normal lung volumes. Chronic left basilar haziness, likely due to pericardial fat pad. No consolidations. PLEURA: No pleural effusion or pneumothorax. HEART AND MEDIASTINUM: Cardiac size is mildly enlarged. Aortic calcifications. BONES AND SOFT TISSUES: No acute osseous lesion. Soft tissues are unremarkable. Degenerative changes. UPPER ABDOMEN: No free air under the diaphragm. IMPRESSION: Mild cardiomegaly. Signed by: Chris Birmingham DO on 05/10/2020 12:26 AM Dictated By: CHRIS BIRMINGHAM DO Transcribed By: EDMAR on 05/10/2025 COPY TO: ALESSIA BARAKAT MD U/S, ABDOMINAL, COMPLETE 2020-05-09 09:50:00 DR Schroeder f or Exam:->liver fibrosis, fatty liver, [facility] for [facility] 1935 Sex: FFINAL REPORT TECHNIQUE: Grayscale ultrasound of the abdomen. INDICATION: liver fibrosis, fatty liver, screening for cancer. COMPARISON: Ultrasound from 05/07/2019. FINDINGS: MIDLINE VASCULATURE: The visualized inferior vena cava is unremarkable. The maximum visualized aortic diameter is 2.2 cm. LIVER: The liver has a heterogeneous echotexture with questionable no dularity. The liver is diffusely increased in echogenicity.. No focal lesions. The main portal vein is patent and measures 1.1 cm in diameter. BILIARY:Gallbladder: No gallstones or sludge. The gallbladder is mildly distended, possibly due to fasting. No pericholecystic fluid or wall thickening. Negative sonographic Molina sign.Common bile duct measures 0.5 cm, within normal limits. No intrahepatic biliary ductal dilatation. PANCREAS: Incompletely visualized due to overlying bowel gas. The partially visualized pancreatic body is normal. SPLEEN: No splenomegaly. The spleen measures 7.7 cm in length. P ERITONEUM: No free fluid. KIDNEYS: Normal in size bilaterally. No hydronephrosis. No sonographically evident solid mass lesion. A right interpolar renal lesion is anechoic, has posterior acoustic enhancement, and measures 2 cm. This is consistent with a simple renal cyst. A right lower pole anechoic renal lesion with posterior acoustic enhancement measures 7.4 x 4.8 x 6.6 cm and is consistent with a simple renal cyst. This previously measured [...] recommended. IMPRESSION: 1.Diffuse fatty infiltration of the liver. The heterogeneous echotexture and questionable nodularity are concerning for fibrosis. 2.No focal hepatic lesion. Signed: Jad Novoa MDReport Verified Date /Time: 05/09/2020 09:50:07 abdomen complete 2020-05-09 09:50:00 Interfac e, External Ris In - 05/09/2020 9:52 AM CDTFINAL REPORT TECHNIQUE: Grayscale ultrasound of the abdomen. [...] patent and measures 1.1 cm in diameter. BILIARY:Gallbladder: No gallstones or sludge. The gallbladder is mildly distended, possibly due to fasting. No pericholecystic fluid or wall thickening. Negative sonographic Molina sign.Common bile duct measures 0.5 cm, within normal [...] 4.8 x 6.6 cm and is consistent with a simple renal cyst. This previously measured [...] recommended. IMPRESSION: 1.Diffuse fatty infiltration of the liver. The heterogeneous echotexture and questionable nodularity are concerning for fibrosis. 2.No focal hepatic lesion. Signed: Jad Novoa MDReport Verified Date/Time: 05/09/2020 09:50:07 [facility] [Q] LIPID PANEL WITH REFLEX TO DIRECT LDL 2020-04-27 09:32:0 0 Test Item CHOLESTEROL, TOTAL; Normal (test code = 2093-3) 119 mg/dl <200 N HDL CHOLESTEROL; Below Low Threshold (test code = 2085-9) 41 mg/dl > OR = 50 TRIGLYCERIDES; Normal (test code = 2571-8) 129 mg/dl <150 N LDL-CHOLESTEROL; Normal (test code = 35870-3) 57 {MG/DL VJ} N Reference range: <100 Desirable range <100 mg/dL for primary prevention; <70 mg/dL for patients with CHD or diabetic patients with > or = 2 CHD risk factors. LDL-C is now calculated using the Regina calculation, which is a validated novel method providing better accuracy than the Friedewald equation in the estimation of LDL-C. Bob SS et al. RUKHSANA. 2013;310(19): 9258-9126 (http ://education.[employer]/faq/MJI760) CHOL/HDLC RATIO (test code = CHOL/HDLC RATIO) 2.9 {CALC} <5.0 N NON HDL CHOLESTEROL (test code = NON HDL CHOLESTEROL) 78 {MG/DL CA L} <130 N For patients with diabetes plus 1 major ASCVD risk factor, treating to a non-HDL-C goal of <100 mg/dL (LDL-C of <70 mg/dL) is considered a therapeutic option. [facility][QL] CMP W/[id number] 09:32:00* Test Item Value Reference Range Interpretation Comments GLUCOSE; Above High Threshold (test code = 1547-9) 128 mg/dl 65- 99 Fasting reference interval For someone without known diabetes, a glucosevalue >125 mg/dL indicates that they may havediabetes and this should be confirmed with afollow- up test. UREA NITROGEN (BUN) (test code = UREA NITROGEN (BUN)) 30 mg/dl 7-25 CREATININE (test code = CREATININE) 1.27 mg/dl 0.60-0.88 For patients >49 years of age, the reference limitfor Creatinine is approximately 13% higher for peopleidentified as -Bahraini. eGFR NON-AFR. COLOMBIAN (test code = eGFR NON-AFR. COLOMBIAN) 38 {ML/MIN/1.7} > OR = 60 eGFR (test code = eGFR ) 44 {ML/MIN/1.7} > OR = 60 BUN/CREATININE RATIO (test code = BUN/CREATININE RATIO) 24 {CALC} 6-22 SODIUM (test code = SODIUM) 145 mmol/L 135-146 N POTASSIUM (test code = POTASSIUM) 4.2 mmol/L 3.5-5.3 N CHLORIDE (test code = CHLORIDE) 109 mmol/L 98-110 N CARBON DIOXIDE (test code = CARBON DIOXIDE) 27 mmol/L 20-32 N CALCIUM (test code = CALCIUM) 9.8 mg/dl 8.6-10.4 N PROTEIN, TOTAL (test code = PROTEIN, TOTAL) 5.9 g/dl 6.1-8.1 ALBUMIN (test code = ALBUMIN) 3.3 g/dl 3.6-5.1 GLOBULIN (test code = GLOBULIN) 2.6 {G/DL CALC} 1.9-3.7 N ALBUMIN/GLOBULIN RATIO (test code = ALBUMIN/GLOBULIN RATIO) 1.3 {CALC} 1.0-2.5 N BILIRUBIN, TOTAL; Normal (test code = 16086-8) 0.5 mg/dl 0.2-1.2 N ALKALINE PHOSPHATASE (test code = ALKALINE PHOSPHATASE) 151 u/l 37-153 N AST; Normal (test code = 1916-6) 16 u/l 10-35 N ALT; Normal (test code = 1742-6) 13 u/l 6-29 N [facility][QL] CBC (INCLUDES DIFF/PLT)2020-04-27 09:32:00* Test Item Value Reference Range Interpretation Comments WHITE BLOOD CELL COUNT (test code = WHITE BLOOD CELL COUNT) 5.0 {Thousand/u} 3.8-10.8 N RED BLOOD CELL COUNT (test code = RED BLOOD CELL COUNT) 4.02 {Million/uL} 3.80-5.10 N HEMOGLOBIN; Normal (test code = 82471-4) 12.2 g/dl 11.7-15.5 N HEMATOCRIT; Normal (test code = 4544-3) 36.8 % 35.0-45.0 N MCV; Normal (test code = 787-2) 91.5 fL 80.0-100.0 N MCHC; Normal (test code = 37402-4) 33.2 g/dl 32.0-36.0 N RDW; Normal (test code = 788-0) 13.8 % 11.0-15.0 N PLATELET COUNT; Normal (test code = 777-3) 301 {Thousand/u} 140-400 N MPV; Normal (test code = 11629-4) 10.1 fL 7.5-12.5 N ABSOLUTE NEUTROPHILS (test code = ABSOLUTE NEUTROPHILS) 3525 {cells/uL} 3936-1870 N ABSOLUTE LYMPHOCYTES (test code = ABSOLUTE LYMPHOCYTES) 1020 {cells/uL} 850-3900 N ABSOLUTE MONOCYTES (test code = ABSOLUTE MONOCYTES) 335 {cells/uL} 200-950 N ABSOLUTE EOSINOPHILS (test code = ABSOLUTE EOSINOPHILS) 90 {cells/u L} 15-500 N ABSOLUTE BASOPHILS (test code = ABSOLUTE BASOPHILS) 30 {cells/uL} 0 -200 N NEUTROPHILS (test code = NEUTROPHILS) 70.5 % N LYMPHOCYTES (test code = LYMPHOCYTES) 20.4 % N MONOCYTES; Normal (test code = 31690-5) 6.7 % N EOSINOPHILS; Normal (test code = 79043-7) 1.8 % N BASOPHILS; Normal (test code = 75650-3) 0.6 % N [facility][QL] TSH, 3RD GENERATION W/REFLEX TO [id number] 09:32:00* Test Item Value Reference Range Interpretation Comments TSH, 3RD GENERATION W/REFLEX TO FT4 (jeny t code = TSH, 3RD GENERATION W/REFLEX TO FT4) 3.12 {MIU/L} 0.40-4.50 N [facility][Q] HEMOGLOBIN A1C WITH [id number] 09:32:00* Test Item Value Reference Range Interpretation Comments HEMOGLOBIN A1c; Above High Threshold (test code = 4548-4) 7.5 {% of total} <5.7 For someone without known diabetes, a he moglobin M3rdlfbx of 6.5% or greater indicates that they [...] considerations. Currently, no consensus exists regarding use ofhemoglobin A1c for diagnosis of diabetes for children. MEAN PLASMA GLUCOSE (test code = MEAN PLASMA GLUCOSE) 190 {MG/DL C AL} [facility] [id number] 13:51:0097[facility] [id number] 13:51:0019[facility] [id number] 13:51:000.95 [facility] [id number] 13:51:0054[facility] PANEL 2019-12-16 13:51:0063[facility] [id number] 13:51:0020[facility] [id number] 13:51:79998Ixgzkyqm HermannCHEM [id number] 13:51:003.3[facility] [id number] 13:51:93298Nlbuggbt HermannCHEM [id number] 13:51:0027[facility] [id number] 13:51:009.5 [facility] [id number] 13:51:005.9[facility] PANEL 2019-12-16 13:51:003.5[facility] [id number] 13:51:002.4[facility] [id number] 13:51:001.5[facility] [id number] 13:51:000.7[facility] [id number] 13:51:97476Tadvrjrq HermannCHEM [id number] 13:51:0027[facility] [id number] 13:51:0018 [facility] [id number] 13:51:0055[facility]annHEMATOLOGY 2019-12-16 13:51:007.4[facility] YmkezhuHZLZNKQLME9832-27-50 13:51:004.14[facility] BmcpgaiXOMYWFOKXK4709-27-00 13:51:0012.8[facility] BgygzspHJMZYSPQAE5073-16-70 13:51:0038.1[facility] OxrnjnmZMJZAYPHJI5198-35-25 13:51:0092.0[facility] Jovani OZZIHHPYPZ8730-06-63 13:51:00* Test Item Value Reference Range Interpretation Comments MCH (test code = MCH) 30.9 pg 27.0-33.0 [facility] YzbbltyCAJLOIBJTA1270-49-98 13:51:0033.6[facility] HermannHEMATOLOGY 2019-12-16 13:51:0013.9[facility] PylvpqsLGXBCYHYQL1303-74-26 13:51:93092Jjrcfvlm XvfhvsjAPMZYOTCVH1910-62-83 13:51:009.9[facility] YelsdoaJNKHXFDXTI0503-03-74 13:51:719712Ighoowlq UpwbaxzVSOJBCKODE5374-94-88 13:51:619748Nlkbluzs [place] PIHSQOSFIA3544-00-86 13:51:94505Zjcpeapj CbfbhnmRWXEUXLCBR7942-43-18 13:51:71126 [facility] HamingyBUWOWKQESA5188-58-48 13:51:0030[facility] HermannHEMATOLOGY 2019-12-16 13:51:0076.4[facility] AhywygzHBMRZRZRZC5865-69-12 13:51:0014.1[facility] JfmwvkmSGEEXUFIVB0306-80-56 13:51:007.5[facility] IbqeaxgYWLWXTDQLA2393-30-88 13:51:001.6[facility] ShrvqrbOKZLSNFEEJ1100-46-37 13:51:000.4[facility] [place] XLBKKG6592-13-43 13:51:71500Mfaqjure HgxomztQDJLOI5965-69-48 13:51:0046[facility] AynmzvkPRGXLA3148-47-85 13:51:53900Qlbgaeok YygzrhzVZYPUB9995-43-90 13:51:0054 [facility] IwgmezwPOQZZK8997-56-21 13:51:002.emorial QneixjhAJPJBQ7087-39-44 13:51:0075[facility] HermannSPECIAL YSWKMLBRX1773-51-04 13:51:006.7[facility] HermannPOC fgqootp4786-70-85 12:01:17* Test Item Value Reference Range Interpretation Comments POC glucose (test code = 93629-3) 137 mg/dL 65-99 H Construction Project Manager Name: Clayton Velázquez ID: [id number]: [facility] Notified mathematics department chair Interpretation (test code = 56331-6) Abnormal [facility] MethodistHemoglobin L0o8147-69-94 08:35:11* Test Item Value Reference Range Interpretation Comments Hemoglobin A1C (test code = 06815-7) 6.5 % 4-5.6 H HbA1c cutoffs for diagnosing diabetes:4.0% - 5.6% = normal5.7% - 6.4% = increased risk for diabetes (prediabetes)9>=6.5% = caazxksi9Alumr for glycemic control (ADA 2016)< 7.0% Target for non adults with diabetes. More or less stringent targets may be appropriate for individual patients. <7.5% Target for Children and adolescents with type 1 diabetes. Lab Interpretation (test code = 87302-6) Abnormal [place] [facility] natriuretic fapjlov3098-20-12 07:27:16* Test Item Value Reference Range Interpretation Comments BNP (test code = 74740-6) 146 pg/mL 0-100 H Lab Interpretation (test code = 78641-9) Abnormal [place] MethodistBasic metabolic iccee1071-53-64 06:28:07* Test Item Value Reference Range Interpretation Comments Sodium (test code = 2951-2) 144 135- 148 mEq/L Potassium (test code = 2823-3) 4.2 3.5- 5.0 mEq/L Chloride (test code = 2075-0) 110 98- 112 mEq/L CO2 (test code = 8-9) 23 24- 31 mEq/L L Anion gap (test code = 62041-4) 11@ANIO 7- 15 mEq/L BUN (test code = 3094-0) 33 mg/dL 8-23 H Creatinine (test code = 2160-0) 1.42 mg/dL 0.5-0.9 H Glucose (test code = 2345-7) 130 mg/dL 65-99 H Calcium (test code = 00069-6) 9.9 mg/dL 8.8-10.2 Lab Interpretation (test code = 86166-5) Abnormal [place] MethodistEstimated NMZ6386-67-95 06:28:07* Test Item Value Reference Range Interpretation Comments Estimated GFR (test code = 5488) 33 mL/min/1.73 m2 A Catergory Units InterpretationG1 >=90 Normal or highG2 60-89 Mildly lwhotvetvI7u 45-59 Mildly to moderately urlniesvrK9i 30-44 Moderately to severely decreasedG4 15-29 Severely decreasedG5 <15 Kidney failureThe eGFR was calculated using the Chronic Kidney Disease Epidemiology Collaboration (CKD-EPI) equation. Interpretation is based on recommendations of the National Kidney Foundation-Kidney Disease Outcomes Quality Initiative (NKF-KDOQI) published in 2014. Lab Interpretation (test code = 85855-8) Abnormal [place] MethodistCBC with platelet and fvugdlmqhfmp5074-48-48 05:56:33* Test Item Value Reference Range Interpretation Comments WBC (test code = 90735-6) 5.20 4.50- 11.00 k/uL RBC (test code = 86380-3) 3.55 m/uL 4.2-5.5 L HGB (test code = 718-7) 10.8 g/dL 12-16 L HCT (test code = 4544-3) 34.9 % 37-47 L MCV (test code = 787-2) 98.3 fL 82-100 MCH (test code = 785-6) 30.4 pg 27-34 MCHC (test code = 786-4) 30.9 g/dL 31-37 L RDW - SD (test code = 05234-2) 54.2 fL 37-55 MPV (test code = 82798-4) 10.1 fL 8.8-13.2 Platelet count (test code = 60625-7) 234 150- 400 k/uL Nucleated RBC (test code = 78322-9) 0.00 /100 WBC Neutrophils (test code = 14477-1) 70.1 % 39-69 H Lymphocytes (test code = 41613-7) 16.9 % 25-45 L Monocytes (test code = 06373-7) 8.5 % 0-10 Eosinophils (test code = 77531-5) 2.9 % 0-5 Basophils (test code = 52539-9) 0.8 % 0-1 Immature granulocytes (test code = 24184-8) 0.8 % 0-1 "Immature granulocytes" (promyelocytes, myelocytes, metamyelocytes) Lab Interpretation (test code = 76376-4) Abnormal [place] MethodistUrinalysis screen and microscopy, with reflex to culture 2019-09-24 02:11:49* Test Item Value Reference Range Interpretation Comments Specimen site (test code = 6512441) Clean catch Color, UA (test code = 5778-6) Yellow Appearance, UA (test code = 5767-9) Hazy Specific gravity, UA (test code = 5811-5) 1.014 1.001-1.035 pH, UA (test code = 5803-2) 5.0 5.0-8.5 Protein, UA (test code = 03692-7) Negative Negative Glucose, UA (test code = 22424-1) Negative Negative Ketones, UA (test code = 2514-8) Negative Negative Bilirubin, UA (test code = 5770-3) Negative Negative Blood, UA (test code = 5794-3) Negative Negative Nitrite, UA (test code = 5802-4) Negative Negative Urobilinogen, UA (test code = 01369-9) <2.0 <2.0 Leukocyte esterase, UA (test code = 5799-2) Negative Negative Epithelial cells, UA (test code = 5787-7) 5 /HPF WBC, UA (test code = 5821-4) 3 0- 4 /HPF RBC, UA (test code = 40952-0) 1 0- 5 /HPF Bacteria, UA (test code = 30855-5) None seen None seen Yeast, UA (test code = 88060-2) None seen Yeast with pseudohyphae, UA (test code = 35896-0) None seen Hyaline casts, UA (test code = 5796-8) 5 /LPF Al VelizUrine ifcgdlt5496-84-53 02:02:12* Test Item Value Reference Range Interpretation Comments Urine culture (test code = 4456725) SEE COMMENT Bacteriuria screen negative. [facility] Wo Dmlwedkq8548-66-60 19:12:59Hm Interface, Radiology Results 09/23/2019 7:16 PM CSTEXAMINATION: MRI LUMBAR SPINE WO CONTRASTCLINICAL HISTORY: L S-spine stenosisCOMPARISON: No ne.FINDINGS:Lowermost functional disc space is assumed to be L5-S1.Mild retrolis thesis at L2-3.Heterogeneous bone marrow without focal lesionVisualized spinal c ord is normal in appearance.Multilevel disc space narrowing and endplate degener ative changes worst at L2-3.Acute insufficiency fracture of the right sacral ala with involvement of S2 vertebral body.L1-2: No canal or foraminal narrowing.L2- 3: Mild retrolisthesis, facet arthropathy and osteophytosis causes mild narrowin g of the left foramen. No central canal narrowing.L3-4: Posterior disc bulge and bilateral facet arthropathy causes mild narrowing of the foramina. No central c anal narrowing.L4-5: Posterior disc bulge, bilateral facet arthropathy, ligament um flavum thickening causes moderate right and mild left foraminal narrowing. Th ere is mild narrowing of the central canal.L5-S1: No central canal narrowing. Ep idural lipomatosis. Foramina are clear.IMPRESSION:Acute insufficiency fracture o f the right sacral ala and S2 vertebral body.Multilevel degenerative changes in the lumbar spine most prominent at L4-5.[facility]-8OC3632LXFXkinfjb [facility] Comprehensive metabolic qwxeg8928-47-31 14:30:45* Test Item Value Reference Range Interpretation Comments Sodium (test code = 2951-2) 142 135- 148 mEq/L Potassium (test code = 2823-3) 4.8 3.5- 5.0 mEq/L Chloride (test code = 2075-0) 107 98- 112 mEq/L CO2 (test code = 2027-9) 24 24- 31 mEq/L Anion gap (test code = 32736-0) 11@ANIO 7- 15 mEq/L BUN (test code = 3094-0) 35 mg/dL 8-23 H Creatinine (test code = 2160-0) 1.51 mg/dL 0.5-0.9 H Glucose (test code = 2345-7) 112 mg/dL 65-99 H Calcium (test code = 31066-4) 10.1 mg/dL 8.8-10.2 Protein (test code = 2885-2) 6.9 g/dL 6.3-8.3 Wvbvend7377.6-7.0 g/dL1 unls7435.4-7.6 g/dL7 months-6juwb318.1-7.3 g/dL1-2 nxetl309.6-7.5 g/dL>3 .0-8.0 g/tU21-2009895.3-8.3 g/dL Albumin (test code = 1751-7) 3.1 g/dL 3.5-5 L A/G ratio (test code = 1759-0) 0.8 0.7-3.8 Alkaline phosphatase (test code = 6768-6) 141 U/L 35-104 H AST (test code = 1920-8) 25 U/L 10-35 ALT (test code = 1742-6) 17 U/L 5-50 Total bilirubin (test code = 1975-2) 0.6 mg/dL 0-1.2 Lab Interpretation (test code = 73597-1) Abnormal [place] [facility]- [place] GUIDANCE VASC DILXIF1382-07-27 09:18:00 Name: GEOVANI ANDERSEN [facility] : 1935 Age/S: 84 / F [address] [facility] Unit #: [id number] Loc: [place] [address] Phys: Nancy Turner MD Acct: [id number] Di s Date: Status: REG RCR PHONE #: Exam Date: 09/14/2019 1406 FAX #: Reason: / EXAMS: CPT CODE: [id number] US GUIDANCE VAS C ACCESS 58278 Fluoro Time: DAP (Gy m2 ): Air Kerma (mGy): REASON FOR EXAM:UTI Location: HC A PROCEDURE: Ultrasound and fluoroscopic guided peripherally inser bernadette Central catheter placement FINDINGS: Prior to the procedure, informed consent was obtained after risks and benefits of the procedure were explained to the patient. The patient agreed and wanted to proceed. The patient was brought to special procedures and placed supine on the table. The left arm was prepped was draped in the usual fashion. A ll elements of maximal sterile barrier techniques were applied. Ultrasoun d demonstrates patency of the left basilic vein. Images of the vein were submitted to PACS. Under real time ultrasound guidance, a micropuncture needle was used to access the vein. A PICC line was inserted over a guide wire with the tip positioned within the SVC under fluoroscopic guidance. T he catheter was secured with a StatLock and is ready for use. MEDICATIONS: None COMPLICATIONS: None Blood loss: Less than 5 mL Fluoroscopic time: 2 seconds Radiation dose: 3 mGy IMPRESSION: left basilic vein PICC line is ready for use Elect ronically Signed by Robert Rowan on 09/15/2019 at 0918 R eported and signed by: Fernando Rowan M.D. CC: Natalia Tapia MD; Tx Gareth vivas MD Technologist: PERCY DOMINGUEZ SENIOR NET WEB DEVELOPER Trnscb Date/Time: 09/15/2019 (917) [place].VTL Orig Print D/T: S: 09/15/2019 (12) PAGE 1 S igned Report - SP FLUORO GUID CTRL ACC DEV 2019-09-15 09:18:00 Name: GEOVANI ANDERSEN [facility] : 1935 Age/S: 84 / F [address] [facility] #: [id number] Loc: [place] [address] Phys: Gareth Turner MD Acct: [id number] Dis Date: Status: REG RCR PHONE #: [phone] Exam Date: 09/14/2019 1401 FAX #: [phone] Reason: / EXAMS: CPT CODE: [id number] SP FLUORO GUID CTRL ACC DEV 67326 Fluoro Time: 7 DAP (Gy m2): 0.95 Air Kerma (mGy): 3 REASON FOR EXAM:UTI Location: [facility] PROCEDURE: Ultrasound and fluoroscopic guided peripherally inserted Central catheter placement FINDINGS: Prior to the procedure, informed consent was obtained after risks and benefits of the procedure were explained to the patient. The patient agreed and wanted to proceed. The patient was brought to special procedures and placed supine on the table. The left arm was prepped was draped in the usual fashion. All elements of maximal sterile barrier techniques were applied. Ultrasound demonstrates patency of the left basilic vein. Images of the vein were submitted to PACS. Under real time ultrasound guidance, a micropuncture needle was used to access the vein. A PICC line was inserted over a guidewire with the tip positioned within the SVC under fluoroscopic guidance. The catheter was secured with a StatLock and is ready for use. MEDICATIONS: None COMPLICATIONS: None Blood loss: Less than 5 mL Fluoroscopic time: 2 seconds Radiation dose: 3 mGy IMPRESSION: left basilic vein PICC line is ready for use Elect ronically Signed by Robert Rowan on 09/15/2019 at 0918 R eported and signed by: Fernando Rowan M.D. CC: Natalia Tapia MD; Tx Gareth vivas MD Technologist: PERCY DOMINGUEZ [facility] Trnscb Date/Time: 09/15/2019 (917) [place].VTL Orig Print D/T: S: 09/15/2019 (920) PAGE 1 S igned Report - XR CHEST 1 A6183-25-13 14:56:00 FAX: Natalia Vergara [phone] [place]: St: REG FAX: Gareth Samuels [phone] Name: GEOVANI ANDERSEN [facility] : 1935 Age/S: 84/F [address] [facility] Unit #: [id number] Loc: [place] [address] Phys: Fernando Rowan MD Acct: [id number] Dis Date: Status: REG RCR PHONE #: [phone] Exam Date: 09/14/2019 5204 FAX #: [phone] Reason: POST LINE PLACEMENT EXAMS: CPT CODE: [id number] XR CHEST 1 V 04553 REASON FOR EXAM: POST LINE PLACEMENT Exam Order Date: 09/14/2019 2:22 PM Ordering M.DEliazar: Fernando Rowan MD PROCEDURE: - XR CHEST 1 V COMPARISON: None F INDINGS: The lungs are clear other than mild subsegmental atelectasis in the left lung base. There is no pleural effusion or pneumothorax. Pulmonary vascularity is within normal limits. Cardiomediastinal s ilhouette is normal in size for technique. The mediastinal contours are wi thin normal limits. Left upper extremity PICC terminates at the confluence of the subclavian vein and SVC. There are degenerative changes in the shoulders and spine. The visualized upper abdomen is within n ormal limits. IMPRESSION: Left upper extremity P ICC terminates at the confluence of the left subclavian vein and SVC. Location: [facility] at 7876 Reported and signed by: Aguila bermeo MD CC: Natalia Tapia MD; Gareth Turner MD Techn ologist: LISE ARREOLA Trnorrd Date/Francis e/By: 09/14/2019 (3004) : By: [email or web address] Orig Print D/T: S: 09/14/2019 (9332) PAGE 1 Signed Report [[facility]] URINALYSIS, QOACQNFQ6411-00-63 13:53:00* Test Item Value Reference Range Interpretation Comments COLOR; Normal (test code = 5778-6) YELLOW YELLOW N APPEARANCE (test code = APPEARANCE) CLEAR CLEAR N SPECIFIC GRAVITY; Normal (test code = 2965-2) 1.019 1.001-1. 035 N PH; Normal (test code = 2756-5) < OR = 5.0 5.0-8.0 N GLUCOSE; Normal (test code = 1547-9) NEGATIVE NEGATIVE N BILIRUBIN; Normal (test code = 43677-6) NEGATIVE NEGATIVE N KETONES; Normal (test code = 76579-3) NEGATIVE NEGATIVE N OCCULT BLOOD; Normal (test code = 34191-5) NEGATIVE NEGATIVE N PROTEIN; Abnormal (test code = 77744-5) TRACE NEGATIVE A NITRITE; Normal (test code = 17854-4) NEGATIVE NEGATIVE N LEUKOCYTE ESTERASE (test code = LEUKOCYTE ESTERASE) NEGATIVE NE GATIVE N WBC; Normal (test code = 6690-2) 0-5 < OR = 5 N RBC; Normal (test code = 789-8) 0-2 < OR = 2 N SQUAMOUS EPITHELIAL CELLS (test code = 85088-6) 0-5 < OR = 5 BACTERIA; Normal (test code = 630-4) NONE SEEN NONE SEEN N HYALINE CAST; Normal (test code = 96147-8) NONE SEEN NONE SEEN N [facility]] CULTURE, URINE, UIKTCYB9067-80-02 13:53:00* Test Item Value Reference Range Interpretation Comments CULTURE (test code = CULTURE) See Comment CULTURE, URINE, ROUTINE Micro Number: [id number] Test Status: Final Specimen Source: URINE Specimen Quality: Adequate Result: Single organism less than 10,000 CFU/mL isolated. These organisms, commonly found on external and internal genitalia, are considered colonizers. No further testing performed. [facility] LUMBAR SPINE KBLYNXN-VDOM0236-29-17 12:41:00 [place] [address] Patient Name: GEOVANI ANDERSEN MR #: [id number] : 1935 Age/Sex: 83/F Req #: [id number] Adm Physician: Ordered by: AJ MADRID MD Report #: [id number] Location: [facility] Room/Bed: Procedure: 3507-1256 HOPD/CT LUMBAR SPINE WITHOUT-HOPD Exam Date: 09/07/19 Exam Time: 1224 REPORT STATUS: S igned History: Low back pain radiates to right leg x2 weeks Comparison stud ies: Included lumbar spine from abdomen pelvis CT of 08/19/2019. Technique: Axial images were obtained to the lumbar spine Coronal and sagittal images reconstructed from the axial data. Dose modulation, iterative reconstruction, and/or weight based adjustment of the mA/kV was utilized to reduce the radiati on dose to as low as reasonably achievable. Intravenous contrast: None F indings: Number of non-rib bearing vertebral bodies: 5 Alignment: Norm al lumbar lordosis. As shaped lumbar curvature with upper lumbar dextrocurvatu re with apex at L2-L3 and lower thoracic dextrocurvature with apex at L4-L5. 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 No abdominal aort ic aneurysm. Incidental exophytic left renal cyst along the left posterior int erpolar kidney. Paraspinal muscles: Moderate symmetric fatty-replaced atrop hic changes of the dorsal paraspinal muscular. Vertebrae: Bones appea r demineralized. No fracture or infection. No lytic or blastic lesion. De generative changes: L1-L2: Mildly degenerated disc. No significant canal or foraminal stenosis. L2-L3: Moderately degenerated disc asymmetrically greater on the left along the concavity lumbar curvature where there are mixe d cystic and sclerotic degenerative endplate changes. Minimal retrolisthesis o f L2 on L3 with associated asymmetric left disc osteophyte complex results in severe left foraminal stenosis. No significant canal or right foraminal stenos is. L3-L4: Mildly degenerated disc. Symmetric disc bulge, thickened ligam entum flavum and mild facet arthrosis with mild canal and mild bilateral keyona inal stenosis. L4-L5: Degenerated disc with vacuum phenomenon, slightly g reater on the right along the concavity lumbar curvature where there are scler otic degenerative endplate changes. Disc bulge with right foraminal disc osteo phyte complex, thickened ligamentum flavum and bilateral facet arthrosis with moderate canal stenosis, moderate right foraminal stenosis and left foraminal stenosis. L5-S1: Mildly degenerated disc. Moderate bilateral facet arthro sis. Patent canal and foramina. Partially and sacroiliac joints: Mild degenerative changes bilaterally. IMPRESSION: 1. No acute osseous abnormalities. 2. Multilevel disc degeneration, greatest at L2-L3 and L4-5. 3. Moderate degenerative canal stenosis at L4-L5. 4. Degenerative foraminal stenosis, severe right at L4-L5 and moderate left at L2-L3. 5. Moderate L 5-S1 facet arthrosis. Signed by: Dr. Percy Stroud M.D. on 09/07/2019 1: 03 PM Dictated By: PERCY STROUD MD 1303 Transcribed By: EDMAR on 09/07/19 1303 COPY TO: AJ MADRID MD [[facility]] [facility] W/PGWF4105-52-57 10:06:00* Test Item Value Reference Range Interpretation Comments GLUCOSE; Normal (test code = 1547-9) 112 mg/dl 65-139 N Non-fasting reference interval UREA NITROGEN (BUN) (test code = UREA NITROGEN (BUN)) 41 mg/dl 7-25 CREATININE (test code = CREATININE) 2.09 mg/dl 0.60-0.88 For patients >49 years of age, the reference limitfor Creatinine is approximately 13% higher for peopleidentified as -[place]. eGFR NON- (test code = eGFR NON-FERNANDO N COLOMBIAN) 21 {ML/MIN/1.7} > OR = 60 eGFR (test code = eGFR ) 24 {ML/MIN/1.7} > OR = 60 BUN/CREATININE RATIO (test code = BUN/CREATININE RATIO) 20 {CALC} 6-22 N SODIUM (test code = SODIUM) 139 mmol/L 135-146 N POTASSIUM (test code = POTASSIUM) 5.8 mmol/L 3.5-5.3 CHLORIDE (test code = CHLORIDE) 107 mmol/L 98-110 N CARBON DIOXIDE (test code = CARBON DIOXIDE) 26 mmol/L 20-32 N CALCIUM (test code = CALCIUM) 9.7 mg/dl 8.6-10.4 N PROTEIN, TOTAL (test code = PROTEIN, TOTAL) 6.2 g/dl 6.1-8.1 N ALBUMIN (test code = ALBUMIN) 3.5 g/dl 3.6-5.1 GLOBULIN (test code = GLOBULIN) 2.7 {G/DL CALC} 1.9-3.7 N ALBUMIN/GLOBULIN RATIO (test code = ALBUMIN/GLOBULIN RATIO) 1.3 {CALC} 1.0-2.5 N BILIRUBIN, TOTAL; Normal (test code = 45147-2) 0.5 mg/dl 0.2-1.2 N ALKALINE PHSPHATASE (test code = ALKALINE PHSPHATASE) 135 u/l 37-153 N AST; Normal (test code = 1916-6) 25 u/l 10-35 N ALT; Normal (test code = 1742-6) 17 u/l 6-29 N [facility]] CBC (INCLUDES DIFF/PLT)2019-09-03 10:06:00* Test Item Value Reference Range Interpretation Comments WHITE BLOOD CELL COUNT (test code = WHITE BLOOD CELL COUNT) 5.7 {Thousand/u} 3.8-10.8 N RED BLOOD CELL COUNT (test code = RED BLOOD CELL COUNT) 3.75 {Million/uL} 3.80-5.10 HEMAGLOBIN; Below Low Threshold (test code = 88974-5) 11.4 g/dl 11.7-15.5 HEMATOCRIT; Normal (test code = 4544-3) 35.0 % 35.0-45.0 N MCV; Normal (test code = 787-2) 93.3 fL 80.0-100.0 N MCHC; Normal (test code = 70856-3) 32.6 g/dl 32.0-36.0 N RDW; Normal (test code = 788-0) 13.4 % 11.0-15.0 N PLATELET COUNT; Normal (test code = 777-3) 393 {Thousand/u} 140-400 N MPV; Normal (test code = 89650-5) 10.1 fL 7.5-12.5 N ABSOLUTE NEUTROPHILS (test code = ABSOLUTE NEUTROPHILS) 4275 {cells/uL} 4166-9769 N ABSOLUTE LYMPHOCYTES (test code = ABSOLUTE LYMPHOCYTES) 838 {mirlande ls/uL} 850-3900 ABSOLUTE MONOCYTES (test code = ABSOLUTE MONOCYTES) 428 {cells/uL} 200-950 N ABSOLUTE EOSINOPHILS (test code = ABSOLUTE EOSINOPHILS) 120 {cells/ uL} 15-500 N ABSOLUTE BASOPHILS (test code = ABSOLUTE BASOPHILS) 40 {cells/uL} 0 -200 N NEUTROPHILS (test code = NEUTROPHILS) 75 % N LYMPHOCYTES (test code = LYMPHOCYTES) 14.7 % N MONOCYTES; Normal (test code = 37211-7) 7.5 % N EOSINOPHILS; Normal (test code = 38274-0) 2.1 % N BASOPHILS; Normal (test code = 62889-3) 0.7 % N [facility][O] Urine Dipstick (In Office)2019-09-03 09:20:00 * Test Item Value Reference Range Interpretation Comments Glucose (test code = Glucose) Negative N LEUKOCYTES (test code = LEUKOCYTES) Negative N NITRITE; Normal (test code = 06551-8) Negative N UROBILINOGEN; Normal (test code = 59275-0) Negative N PROTEIN (test code = 74568-5) Trace pH (test code = pH) 5.0 N URINE BLOOD; Normal (test code = 49055-2) Negative N SPECIFIC GRAVITY (test code = 2965-2) 1.020 KETONES; Normal (test code = 29449-3) Negative N BILIRUBIN; Normal (test code = 72176-0) Negative N COLOR URINE; Normal (test code = 5778-6) Yellow N APPEARANCE; Normal (test code = 5767-9) Clear N [facility]] CULTURE, URINE, [id number] 00:00:00* Test Item Value Reference Range Interpretation Comments CULTURE (test code = CULTURE) See Comment A CULTURE, URINE, ROUTINE Micro Number: [id number] Test Status: Final Specimen Source: URINE Specimen Quality: Adequate Result: Greater than 100,000 CFU/mL of Pseudomonas aeruginosa Ps.aeruginosa INT FARZANA CEFEPIME S 2 CEFTAZIDIME S 4 CIPROFLOXACIN S <=0.25 GENTAMICIN S 2 IMIPENEM S 2 LEVOFLOXACIN S 1 PIP/TAZOBACTAM S 8 TOBRAMYCIN S <=1S=Susceptible I=Intermediate R=Resistant * = Not TestedNR = Not Reported NN = See Therapy Comments [facility] Qfgzwzp3724-05-38 16:56:00* Test Item Value Reference Range Interpretation Comments Blood Culture (test code = 74036029) NO GROWTH AFTER 5 DAYS, FINAL REPORT [facility] Laoyyvc6796-39-84 11:31:00* Test Item Value Reference Range Interpretation Comments Bedside Glucose (test code = 36289-5) 150 70-120 H Meter ID: [id number] [facility] 2019-08-26 09:11:00* Test Item Value Reference Range Interpretation Comments Blood Culture (test code = 09487273) NO GROWTH AFTER 72 HOURS [facility] Arfodko4949-16-24 08:03:00* Test Item Value Reference Range Interpretation Comments Bedside Glucose (test code = 85614-0) 115 70-120 Meter ID: [id number] [facility] 2019-08-26 06:09:00* Test Item Value Reference Range Interpretation Comments Sodium Level (test code = 2951-2) 138 136-145 [facility] Niqgi3695-26-19 06:09:00* Test Item Value Reference Range Interpretation Comments Potassium Level (test code = 2823-3) 3.2 3.5-5.1 L [facility] Children[facility] Ipkva1959-06-26 06:09:00* Test Item Value Reference Range Interpretation Comments Chloride Level (test code = 2075-0) 105 98-107 [facility] ChildrenCarbon Dioxide Qfdbn3830-62-11 06:09:00* Test Item Value Reference Range Interpretation Comments Carbon Dioxide Level (test code = 2028-9) 23 22-29 [facility] ChildrenAnion Ntk8689-21-98 06:09:00* Test Item Value Reference Range Interpretation Comments Anion Gap (test code = 01733-7) 13.2 8-16 [facility] ChildrenBlood Urea Pvmpnmxs3216-82-83 06:09:00* Test Item Value Reference Range Interpretation Comments Blood Urea Nitrogen (test code = 3094-0) 23 7-26 [facility] ChildrenCreatinine2020-02-05 06:09:00* Test Item Value Reference Range Interpretation Comments Creatinine (test code = 2160-0) 1.13 0.57-1.11 H [facility] ChildrenBUN/Creatinine Bqjms0034-87-05 06:09:00* Test Item Value Reference Range Interpretation Comments BUN/Creatinine Ratio (test code = 3097-3) 20 6-25 [facility] ChildrenEstimat Glomerular Filtration Rate 2019-08-26 06:09:00* Test Item Value Reference Range Interpretation Comments Estimat Glomerular Filtration Rate (test code = 450791948) 46 >60 L Ranges were taken from the National Kidney Disease Education Program and the [facility] literature.Reference ranges:60 or greater: Gcbfki29-51 ( for 3 consecutive months): Chronic kidney disease 15 or less: Kidney failureTexas [facility] ChildrenGlucose Qsqhr3597-50-37 06:09:00* Test Item Value Reference Range Interpretation Comments Glucose Level (test code = RWU2771) 182 74-118 H [facility] ChildrenCalcium Trjms0464-84-55 06:09:00* Test Item Value Reference Range Interpretation Comments Calcium Level (test code = 60905-1) 8.8 8.4-10.2 [facility] Lvfqe3133-80-62 06:09:00* Test Item Value Reference Range Interpretation Comments Sodium Level (test code = 2951-2) 138 136-145 [facility] ChildrenPotassium Proyz6701-55-94 06:09:00* Test Item Value Reference Range Interpretation Comments Potassium Level (test code = 2823-3) 3.2 3.5-5.1 L [facility] ChildrenChloride Bzzhz1698-60-93 06:09:00* Test Item Value Reference Range Interpretation Comments Chloride Level (test code = 2075-0) 105 98-107 [facility] ChildrenCarbon Dioxide Wvrpc6207-31-09 06:09:00* Test Item Value Reference Range Interpretation Comments Carbon Dioxide Level (test code = 2028-9) 23 22-29 [facility] ChildrenAnion Pfr2058-89-85 06:09:00* Test Item Value Reference Range Interpretation Comments Anion Gap (test code = 59641-7) 13.2 8-16 [facility] ChildrenBlood Urea Qisltsjm9881-86-30 06:09:00* Test Item Value Reference Range Interpretation Comments Blood Urea Nitrogen (test code = 3094-0) 23 7-26 [facility] ChildrenCreatinine2020-02-05 06:09:00* Test Item Value Reference Range Interpretation Comments Creatinine (test code = 2160-0) 1.13 0.57-1.11 H [facility] ChildrenBUN/Creatinine Kzyof2309-63-36 06:09:00* Test Item Value Reference Range Interpretation Comments BUN/Creatinine Ratio (test code = 3097-3) 20 6-25 [facility] ChildrenEstimat Glomerular Filtration Rate 2019-08-26 06:09:00* Test Item Value Reference Range Interpretation Comments Estimat Glomerular Filtration Rate (test code = 529519126) 46 >60 L Ranges were taken from the National Kidney Disease Education Program and the [facility] literature.Reference ranges:60 or greater: Gwsyny82-49 ( for 3 consecutive months): Chronic kidney disease 15 or less: Kidney failureTexas [facility] for ChildrenGlucose Ttlnz0529-20-79 06:09:00* Test Item Value Reference Range Interpretation Comments Glucose Level (test code = KXQ1110) 182 74-118 H [facility] ChildrenCalcium Usiiw6599-55-49 06:09:00* Test Item Value Reference Range Interpretation Comments Calcium Level (test code = 23572-7) 8.8 8.4-10.2 [facility] ChildrenBlood Mntavgg7045-59-02 15:20:00* Test Item Value Reference Range Interpretation Comments Blood Culture (test code = 600-7) No Result Data Provided [facility] Qnlykcv8070-27-91 15:20:00* Test Item Value Reference Range Interpretation Comments Blood Culture (test code = 600-7) No Result Data Provided [facility] ChildrenWhite Blood Rzvei8793-69-43 05:39:00* Test Item Value Reference Range Interpretation Comments White Blood Count (test code = 6690-2) 4.58 4.8-10.8 L [facility] ChildrenRed Blood Tfjvo0887-66-72 05:39:00* Test Item Value Reference Range Interpretation Comments Red Blood Count (test code = 789-8) 3.53 3.6-5.1 L [facility] ChildrenHemoglobin2020-02-02 05:39:00* Test Item Value Reference Range Interpretation Comments Hemoglobin (test code = 61116-3) 10.7 12.0-16.0 L [facility] ChildrenHematocrit2020-02-02 05:39:00* Test Item Value Reference Range Interpretation Comments Hematocrit (test code = 4544-3) 34.0 34.2-44.1 L [facility] ChildrenMean Corpuscular Jhioyd4628-27-62 05:39:00* Test Item Value Reference Range Interpretation Comments Mean Corpuscular Volume (test code = 787-2) 96.3 81-99 [facility] ChildrenMean Corpuscular Jpvthwtiqc0524-04-66 05:39:00* Test Item Value Reference Range Interpretation Comments Mean Corpuscular Hemoglobin (test code = 785-6) 30.3 28-32 [facility] ChildrenMean Corpuscular Hemoglobin Concent 2019-08-23 05:39:00* Test Item Value Reference Range Interpretation Comments Mean Corpuscular Hemoglobin Concent (test code = 786-4) 31.5 31-35 [facility] ChildrenRed Cell Distribution Zesbk7380-96-10 05:39:00* Test Item Value Reference Range Interpretation Comments Red Cell Distribution Width (test code = 47405-1) 14.4 11.7 -14.4 [facility] ChildrenPlatelet Mdrfr0978-79-97 05:39:00* Test Item Value Reference Range Interpretation Comments Platelet Count (test code = 777-3) 242 140-360 [facility] ChildrenNeutrophils (%) (Auto)2019-08-23 05:39:00 * Test Item Value Reference Range Interpretation Comments Neutrophils (%) (Auto) (test code = 58284-2) 68.1 38.7-80.0 [facility] ChildrenLymphocytes (%) (Auto)2019-08-23 05:39:00 * Test Item Value Reference Range Interpretation Comments Lymphocytes (%) (Auto) (test code = 736-9) 17.0 18.0-39.1 L [facility] ChildrenMonocytes (%) (Auto)2019-08-23 05:39:00* Test Item Value Reference Range Interpretation Comments Monocytes (%) (Auto) (test code = 5905-5) 9.2 4.4-11.3 [facility] ChildrenEosinophils (%) (Auto)2019-08-23 05:39:00 * Test Item Value Reference Range Interpretation Comments Eosinophils (%) (Auto) (test code = 713-8) 4.6 0.0-6.0 [facility] ChildrenBasophils (%) (Auto)2019-08-23 05:39:00* Test Item Value Reference Range Interpretation Comments Basophils (%) (Auto) (test code = 706-2) 0.4 0.0-1.0 [facility] ChildrenIM GRANULOCYTES %2019-08-23 05:39:00* Test Item Value Reference Range Interpretation Comments IM GRANULOCYTES % (test code = IM GRANULOCYTES %) 0.7 0.0- 1.0 [facility] ChildrenNeutrophils # (Auto)2019-08-23 05:39:00* Test Item Value Reference Range Interpretation Comments Neutrophils # (Auto) (test code = 751-8) 3.1 2.1-6.9 [facility] ChildrenLymphocytes # (Auto)2019-08-23 05:39:00* Test Item Value Reference Range Interpretation Comments Lymphocytes # (Auto) (test code = 68344-1) 0.8 1.0-3.2 L [facility] ChildrenMonocytes # (Auto)2019-08-23 05:39:00* Test Item Value Reference Range Interpretation Comments Monocytes # (Auto) (test code = 742-7) 0.4 0.2-0.8 [facility] ChildrenEosinophils # (Auto)2019-08-23 05:39:00* Test Item Value Reference Range Interpretation Comments Eosinophils # (Auto) (test code = 711-2) 0.2 0.0-0.4 [facility] ChildrenBasophils # (Auto)2019-08-23 05:39:00* Test Item Value Reference Range Interpretation Comments Basophils # (Auto) (test code = 704-7) 0.0 0.0-0.1 [facility] ChildrenAbsolute Immature Granulocyte (auto 2019-08-23 05:39:00* Test Item Value Reference Range Interpretation Comments Absolute Immature Granulocyte (auto (jeny t code = Absolute Immature Granulocyte (auto) 0.03 0-0.1 [facility] ChildrenWhite Blood Rhmau8018-79-88 05:39:00* Test Item Value Reference Range Interpretation Comments White Blood Count (test code = 6690-2) 4.58 4.8-10.8 L [facility] ChildrenRed Blood Xnzav4562-39-78 05:39:00* Test Item Value Reference Range Interpretation Comments Red Blood Count (test code = 789-8) 3.53 3.6-5.1 L [facility] ChildrenHemoglobin2020-02-02 05:39:00* Test Item Value Reference Range Interpretation Comments Hemoglobin (test code = 44423-3) 10.7 12.0-16.0 L [facility] ChildrenHematocrit2020-02-02 05:39:00* Test Item Value Reference Range Interpretation Comments Hematocrit (test code = 4544-3) 34.0 34.2-44.1 L [facility] ChildrenMean Corpuscular Ojvfaj5563-05-03 05:39:00* Test Item Value Reference Range Interpretation Comments Mean Corpuscular Volume (test code = 787-2) 96.3 81-99 [facility] ChildrenMean Corpuscular Pvnwjtasbu4684-06-82 05:39:00* Test Item Value Reference Range Interpretation Comments Mean Corpuscular Hemoglobin (test code = 785-6) 30.3 28-32 [facility] ChildrenMean Corpuscular Hemoglobin Concent 2019-08-23 05:39:00* Test Item Value Reference Range Interpretation Comments Mean Corpuscular Hemoglobin Concent (test code = 786-4) 31.5 31-35 [facility] ChildrenRed Cell Distribution Xvnfl6882-07-73 05:39:00* Test Item Value Reference Range Interpretation Comments Red Cell Distribution Width (test code = 99489-8) 14.4 11.7 -14.4 [facility] ChildrenPlatelet Zcaqz5075-72-82 05:39:00* Test Item Value Reference Range Interpretation Comments Platelet Count (test code = 777-3) 242 140-360 [facility] ChildrenNeutrophils (%) (Auto)2019-08-23 05:39:00 * Test Item Value Reference Range Interpretation Comments Neutrophils (%) (Auto) (test code = 82558-9) 68.1 38.7-80.0 [facility] ChildrenLymphocytes (%) (Auto)2019-08-23 05:39:00 * Test Item Value Reference Range Interpretation Comments Lymphocytes (%) (Auto) (test code = 736-9) 17.0 18.0-39.1 L [facility] ChildrenMonocytes (%) (Auto)2019-08-23 05:39:00* Test Item Value Reference Range Interpretation Comments Monocytes (%) (Auto) (test code = 5905-5) 9.2 4.4-11.3 [facility] ChildrenEosinophils (%) (Auto)2019-08-23 05:39:00 * Test Item Value Reference Range Interpretation Comments Eosinophils (%) (Auto) (test code = 713-8) 4.6 0.0-6.0 [facility] ChildrenBasophils (%) (Auto)2019-08-23 05:39:00* Test Item Value Reference Range Interpretation Comments Basophils (%) (Auto) (test code = 706-2) 0.4 0.0-1.0 [facility] ChildrenIM GRANULOCYTES %2019-08-23 05:39:00* Test Item Value Reference Range Interpretation Comments IM GRANULOCYTES % (test code = IM GRANULOCYTES %) 0.7 0.0- 1.0 [facility] ChildrenNeutrophils # (Auto)2019-08-23 05:39:00* Test Item Value Reference Range Interpretation Comments Neutrophils # (Auto) (test code = 751-8) 3.1 2.1-6.9 [facility] ChildrenLymphocytes # (Auto)2019-08-23 05:39:00* Test Item Value Reference Range Interpretation Comments Lymphocytes # (Auto) (test code = 39877-9) 0.8 1.0-3.2 L [facility] ChildrenMonocytes # (Auto)2019-08-23 05:39:00* Test Item Value Reference Range Interpretation Comments Monocytes # (Auto) (test code = 742-7) 0.4 0.2-0.8 [facility] ChildrenEosinophils # (Auto)2019-08-23 05:39:00* Test Item Value Reference Range Interpretation Comments Eosinophils # (Auto) (test code = 711-2) 0.2 0.0-0.4 [facility] ChildrenBasophils # (Auto)2019-08-23 05:39:00* Test Item Value Reference Range Interpretation Comments Basophils # (Auto) (test code = 704-7) 0.0 0.0-0.1 [facility] ChildrenAbsolute Immature Granulocyte (auto 2019-08-23 05:39:00* Test Item Value Reference Range Interpretation Comments Absolute Immature Granulocyte (auto (jeny t code = Absolute Immature Granulocyte (auto) 0.03 0-0.1 [facility] ChildrenFerritin2020-02-01 06:49:00* Test Item Value Reference Range Interpretation Comments Ferritin (test code = 2276-4) 126.25 4.63-204.00 [facility] ChildrenFerritin2020-02-01 06:49:00* Test Item Value Reference Range Interpretation Comments Ferritin (test code = 2276-4) 126.25 4.63-204.00 [facility]2020-02-01 06:29:00* Test Item Value Reference Range Interpretation Comments Iron Level (test code = 2498-4) 33 50-170 L [facility] ChildrenTotal Iron Binding Nywqixxq6569-52-18 06:29:00* Test Item Value Reference Range Interpretation Comments Total Iron Binding Capacity (test code = 2500-7) 235 261-4 78 L [facility] ChildrenPercent Iron Mykwtfjqcx2711-02-82 06:29:00* Test Item Value Reference Range Interpretation Comments Percent Iron Saturation (test code = 2502-3) 14 15-50 L [facility] ChildrenTransferrin2020-02-01 06:29:00* Test Item Value Reference Range Interpretation Comments Transferrin (test code = 3034-6) 168 180-382 L [facility]2020-02-01 06:29:00* Test Item Value Reference Range Interpretation Comments Iron Level (test code = 2498-4) 33 50-170 L [facility] ChildrenTotal Iron Binding Mjqlolsv0332-96-75 06:29:00* Test Item Value Reference Range Interpretation Comments Total Iron Binding Capacity (test code = 2500-7) 235 261-4 78 L [facility] ChildrenPercent Iron Gajiegmatz6292-51-66 06:29:00* Test Item Value Reference Range Interpretation Comments Percent Iron Saturation (test code = 2502-3) 14 15-50 L [facility] ChildrenTransferrin2020-02-01 06:29:00* Test Item Value Reference Range Interpretation Comments Transferrin (test code = 3034-6) 168 180-382 L [facility] ChildrenTriglycerides Adapb3788-19-54 06:02:00* Test Item Value Reference Range Interpretation Comments Triglycerides Level (test code = 2571-8) 120 0-149 [facility] ChildrenCholesterol Dtbpu2244-26-43 06:02:00* Test Item Value Reference Range Interpretation Comments Cholesterol Level (test code = 2093-3) 114 0-199 Less than 200 mg/dL Low Hdex925 - 239 mg/dL Borderline Spkp236 m g/dl and greater High Risk [facility] ChildrenLDL Ntdpjzbcvdn6845-41-74 06:02:00* Test Item Value Reference Range Interpretation Comments LDL Cholesterol (test code = 2089-1) 50 60-130 L [facility] ChildrenHDL Jqmgbdcqujm6812-75-41 06:02:00* Test Item Value Reference Range Interpretation Comments HDL Cholesterol (test code = 2085-9) 40 40-60 [facility] ChildrenCholesterol/HDL Zasgm5643-32-03 06:02:00 * Test Item Value Reference Range Interpretation Comments Cholesterol/HDL Ratio (test code = 9830-1) 2.9 3.0-3.6 L [facility] ChildrenTriglycerides Sndjf7778-33-15 06:02:00* Test Item Value Reference Range Interpretation Comments Triglycerides Level (test code = 2571-8) 120 0-149 [facility] ChildrenCholesterol Vaoyu1625-15-34 06:02:00* Test Item Value Reference Range Interpretation Comments Cholesterol Level (test code = 2093-3) 114 0-199 Less than 200 mg/dL Low Izum580 - 239 mg/dL Borderline Corv822 m g/dl and greater High Risk [facility] ChildrenLDL Giiyumpuzoi1064-12-29 06:02:00* Test Item Value Reference Range Interpretation Comments LDL Cholesterol (test code = 2089-1) 50 60-130 [facility] Jiecfhijpox0406-63-78 06:02:00* Test Item Value Reference Range Interpretation Comments HDL Cholesterol (test code = 2085-9) 40 40-60 [facility] ChildrenCholesterol/HDL Aazvt2344-78-91 06:02:00 * Test Item Value Reference Range Interpretation Comments Cholesterol/HDL Ratio (test code = 9830-1) 2.9 3.0-3.6 L [facility] ChildrenTotal Uzxyungtw6343-43-55 05:51:00* Test Item Value Reference Range Interpretation Comments Total Bilirubin (test code = 1975-2) 0.6 0.2-1.2 [facility] ChildrenAspartate Amino Transf (AST/SGOT) 2019-08-20 05:51:00* Test Item Value Reference Range Interpretation Comments Aspartate Amino Transf (AST/SGOT) (test code = Aspartate Amino Transf (AST/SGOT)) 28 5-34 [facility] ChildrenAlanine Aminotransferase (ALT/SGPT) 2019-08-20 05:51:00* Test Item Value Reference Range Interpretation Comments Alanine Aminotransferase (ALT/SGPT) (test code = 1742-6) 21 0-55 [facility] ChildrenTotal Dcccnoc3808-91-78 05:51:00* Test Item Value Reference Range Interpretation Comments Total Protein (test code = 2885-2) 5.9 6.5-8.1 L [facility] ChildrenAlbumin2020-01-30 05:51:00* Test Item Value Reference Range Interpretation Comments Albumin (test code = 1751-7) 2.8 3.5-5.0 L [facility] ChildrenGlobulin2020-01-30 05:51:00* Test Item Value Reference Range Interpretation Comments Globulin (test code = 99802-9) 3.1 2.3-3.5 [facility] ChildrenAlbumin/Globulin Wbseq2488-97-79 05:51:00 * Test Item Value Reference Range Interpretation Comments Albumin/Globulin Ratio (test code = 1759-0) 0.9 0.8-2.0 [facility] ChildrenAlkaline Isfuooumhtn7657-24-89 05:51:00* Test Item Value Reference Range Interpretation Comments Alkaline Phosphatase (test code = 6768-6) 116 40-150 [facility] ChildrenTotal Jjjawiubg6822-01-40 05:51:00* Test Item Value Reference Range Interpretation Comments Total Bilirubin (test code = 1975-2) 0.6 0.2-1.2 [facility] ChildrenAspartate Amino Transf (AST/SGOT) 2019-08-20 05:51:00* Test Item Value Reference Range Interpretation Comments Aspartate Amino Transf (AST/SGOT) (test code = Aspartate Amino Transf (AST/SGOT)) 28 5-34 [facility] ChildrenAlanine Aminotransferase (ALT/SGPT) 2019-08-20 05:51:00* Test Item Value Reference Range Interpretation Comments Alanine Aminotransferase (ALT/SGPT) (test code = 1742-6) 21 0-55 [facility] ChildrenTotal Bdkpayv9239-14-41 05:51:00* Test Item Value Reference Range Interpretation Comments Total Protein (test code = 2885-2) 5.9 6.5-8.1 L [facility] ChildrenAlbumin2020-01-30 05:51:00* Test Item Value Reference Range Interpretation Comments Albumin (test code = 1751-7) 2.8 3.5-5.0 L [facility] ChildrenGlobulin2020-01-30 05:51:00* Test Item Value Reference Range Interpretation Comments Globulin (test code = 40094-5) 3.1 2.3-3.5 [facility] ChildrenAlbumin/Globulin Ratcz7325-41-77 05:51:00 * Test Item Value Reference Range Interpretation Comments Albumin/Globulin Ratio (test code = 1759-0) 0.9 0.8-2.0 [facility] ChildrenAlkaline Iapewlqynmy4515-41-20 05:51:00* Test Item Value Reference Range Interpretation Comments Alkaline Phosphatase (test code = 6768-6) 116 40-150 [facility] ChildrenHemoglobin A1c Zhtnlmc1436-01-30 05:39:00 * Test Item Value Reference Range Interpretation Comments Hemoglobin A1c Percent (test code = Hemoglobin A1c Percent) 6.5 4.0-7.0 [facility] ChildrenHemoglobin A1c Ujlcmlk6852-96-46 05:39:00 * Test Item Value Reference Range Interpretation Comments Hemoglobin A1c Percent (test code = Hemoglobin A1c Percent) 6.5 4.0-7.0 [facility] ChildrenUrine RGH9730-58-51 20:41:00* Test Item Value Reference Range Interpretation Comments Urine WBC (test code = 5821-4) 0-5 0-5 [facility] ChildrenUrine [id number] 20:41:00* Test Item Value Reference Range Interpretation Comments Urine RBC (test code = 52832-2) 21-50 0-5 H [facility] ChildrenUrine Xpleximy8240-46-99 20:41:00* Test Item Value Reference Range Interpretation Comments Urine Bacteria (test code = 98035-6) RARE NONE [facility] ChildrenUrine Epithelial Ledhf7486-42-54 20:41:00 * Test Item Value Reference Range Interpretation Comments Urine Epithelial Cells (test code = 96741-5) FEW NONE [facility] ChildrenUrine AAQ0151-10-39 20:41:00* Test Item Value Reference Range Interpretation Comments Urine WBC (test code = 5821-4) 0-5 0-5 [facility] ChildrenUrine XOL4923-04-21 20:41:00* Test Item Value Reference Range Interpretation Comments Urine RBC (test code = 52204-3) 21-50 0-5 H [facility] ChildrenUrine Hshfanit6504-56-47 20:41:00* Test Item Value Reference Range Interpretation Comments Urine Bacteria (test code = 19769-6) RARE NONE [facility] ChildrenUrine Epithelial Xqvag9997-80-46 20:41:00 * Test Item Value Reference Range Interpretation Comments Urine Epithelial Cells (test code = 68048-6) FEW NONE [facility] ChildrenUrine Oiqan3200-97-69 20:25:00* Test Item Value Reference Range Interpretation Comments Urine Color (test code = 5778-6) STRAW YELLOW [facility] ChildrenUrine Vjsnvdb6051-37-03 20:25:00* Test Item Value Reference Range Interpretation Comments Urine Clarity (test code = 04662-0) CLOUDY CLEAR H [facility] ChildrenUrine Specific Hrdmfaz7120-98-21 20:25:00 * Test Item Value Reference Range Interpretation Comments Urine Specific [place] (test code = 5811-5) 1.020 1.010-1.02 5 [facility] ChildrenUrine [id number] 20:25:00* Test Item Value Reference Range Interpretation Comments Urine pH (test code = 04765-8) 5.5 5-7 [facility] ChildrenUrine Leukocyte Eliuzyem4804-85-00 20:25:00* Test Item Value Reference Range Interpretation Comments Urine Leukocyte Esterase (test code = 5799-2) TRACE NEGATIVE H [facility] ChildrenUrine Hwirtxe8293-00-24 20:25:00* Test Item Value Reference Range Interpretation Comments Urine Nitrite (test code = 69379-9) NEGATIVE NEGATIVE [facility] ChildrenUrine Rjzmtim0841-88-47 20:25:00* Test Item Value Reference Range Interpretation Comments Urine Protein (test code = 5804-0) 2+ NEGATIVE H [facility] ChildrenUrine Glucose (UA)2019-08-19 20:25:00* Test Item Value Reference Range Interpretation Comments Urine Glucose (UA) (test code = 2349-9) NEGATIVE NEGATIVE [facility] ChildrenUrine Xdllfwy2137-34-96 20:25:00* Test Item Value Reference Range Interpretation Comments Urine Ketones (test code = 27563-1) NEGATIVE NEGATIVE [facility] ChildrenUrine Swxcvpywdjcm2299-78-83 20:25:00* Test Item Value Reference Range Interpretation Comments Urine Urobilinogen (test code = 21551-8) 0.2 0.2-1 [facility] ChildrenUrine Defbnugjt5759-66-84 20:25:00* Test Item Value Reference Range Interpretation Comments Urine Bilirubin (test code = 1978-6) NEGATIVE NEGATIVE [facility] ChildrenUrine Yhtfv1210-83-14 20:25:00* Test Item Value Reference Range Interpretation Comments Urine Blood (test code = 33571-9) 4+ NEGATIVE H [facility] ChildrenUrine Vssgt6958-03-90 20:25:00* Test Item Value Reference Range Interpretation Comments Urine Color (test code = 5778-6) STRAW YELLOW [facility] ChildrenUrine Iuyfbly2698-24-48 20:25:00* Test Item Value Reference Range Interpretation Comments Urine Clarity (test code = 82179-1) CLOUDY CLEAR H [facility] ChildrenUrine Specific Xpgrcho0078-77-71 20:25:00 * Test Item Value Reference Range Interpretation Comments Urine Specific [place] (test code = 5811-5) 1.020 1.010-1.02 5 [facility] ChildrenUrine [id number] 20:25:00* Test Item Value Reference Range Interpretation Comments Urine pH (test code = 68509-0) 5.5 5-7 [facility] Leukocyte Uujduxvl5520-01-72 20:25:00* Test Item Value Reference Range Interpretation Comments Urine Leukocyte Esterase (test code = 5799-2) TRACE NEGATIVE H [facility] Hhjmkur7458-04-44 20:25:00* Test Item Value Reference Range Interpretation Comments Urine Nitrite (test code = 65209-6) NEGATIVE NEGATIVE [facility] Swqvjdm5750-37-53 20:25:00* Test Item Value Reference Range Interpretation Comments Urine Protein (test code = 5804-0) 2+ NEGATIVE H [facility] Glucose (UA)2019-08-19 20:25:00* Test Item Value Reference Range Interpretation Comments Urine Glucose (UA) (test code = 2349-9) NEGATIVE NEGATIVE [facility] Ammawhn3782-25-62 20:25:00* Test Item Value Reference Range Interpretation Comments Urine Ketones (test code = 07182-4) NEGATIVE NEGATIVE [facility] Cfwigpjilcsl8193-61-60 20:25:00* Test Item Value Reference Range Interpretation Comments Urine Urobilinogen (test code = 91824-3) 0.2 0.2-1 [facility] Kihqipzgc7939-08-91 20:25:00* Test Item Value Reference Range Interpretation Comments Urine Bilirubin (test code = 1978-6) NEGATIVE NEGATIVE [facility] Shqit7177-57-83 20:25:00* Test Item Value Reference Range Interpretation Comments Urine Blood (test code = 19607-5) 4+ NEGATIVE H [facility] ChildrenLactic Acid Bnkra6766-33-02 11:38:00* Test Item Value Reference Range Interpretation Comments Lactic Acid Level (test code = Lactic Acid Level) 1.0 0.5- 2.0 [facility] ChildrenL[facility] Acid Cbehu8026-36-99 11:38:00* Test Item Value Reference Range Interpretation Comments Lactic Acid Level (test code = Lactic Acid Level) 1.0 0.5- 2.0 [facility] ChildrenC[facility] 2 V[facility] - NBZJ9840-65-07 11:19:00 [facility] [address] [address] Patient Name: GEOVANI ANDERSEN MR #: [id number] : 1935 Age/Sex: 83/F Req #: [id number] Adm Physician: Ordered by: DEZ RODRIGUEZ MD Report #: [id number] Location: [facility] Room/Bed: Procedure: 012 03 HOPD/CXR 2 VIEW - HOPD Exam Date: Exam Time: REPORT STATUS: Signed EXAMINATION: CXR 2 VIEW - HOPD INDICATION: Cough COMPARISON: Chest radiograph of 09/16/2018 FINDINGS: LINES/TUBES:None LUNGS:Increased AP diameter of the chest. Likely bilateral upper lobe predominant emphysematous c hanges. No focal consolidation or pulmonary edema. PLEURA:No pleural effusi on or pneumothorax. MEDIASTINUM:The cardiomediastinal silhouette appears no rmal in size and shape. Atherosclerotic calcifications of the thoracic aorta. BONES/SOFT TISSUES:No acute osseous injury. ABDOMEN:No free air under the diaphragm. IMPRESSION: No focal pneumonia or pulmonary edema. Signed by: Leland Terry MD on 08/19/2019 11:20 AM Dictated By: LELAND TERRY MD 19 Transcribed By: Milton LAUREN on 08/19/191119 COPY TO: DEZ RODRIGUEZ MD CT ABD/PEL WO ZWCIMXGM-QHRO3618-29-29 11:05:00 [address] [address] Patient Name: GEOVANI ANDERSEN MR #: [id number] : 1935 Age/Sex: 83/F Req #: [id number] Adm Physician: Ordered by: DEZ RODRIGUEZ MD Report #: [id number] Location: [facility] Room/Bed: Procedure: 012 HOPD/CT ABD/PEL WO CONTRAST-HOPD Exam Date: 08/19/19 Exam Time: 1053 REPORT STATUS: Signed EXAM: CT Abdomen and Pelvis WITHOUT intravenous contrast INDICA TION: Nausea, vomiting, abdominal pain COMPARISON: CT abdomen pelvis of 05/25/2018 TECHNIQUE: Abdomen and pelvis were scanned utilizing a multidetector helical scanner from the lung base to the pubic symphysis without administrat ion of IV contrast. Coronal and sagittal reformations were obtained. IV CONTRAST: None ORAL CONTRAST: Water COMPLICATIONS: None RADIATION DOSE: Total DLP: 845.9 mGy*cm Dose modulation, iterative reconstruction, and/or weight based adjustment of the mA/kV was utilized to re duce the radiation dose to as low as reasonably achievable. FINDINGS: LOWER THORAX: Coronary artery atherosclerotic calcifications. Small sliding hi atal hernia. HEPATOBILIARY: No focal liver lesion. Normal gallbladder. SPLEEN: No splenomegaly. PANCREAS: No focal masses or ductal dilatation. ADRENALS: No adrenal nodules. KIDNEYS/URETERS: No hydronephrosis or renal calculi. Unchanged bilateral renal cysts, most notably a large exophytic right lower pole cyst measuring up to 5.7 cm. PELVIC ORGANS/BLADDER: Status post hysterectomy. PERITONEUM / RETROPERITONEUM: Trace free fluid in the pelvis. LYMPH NODES: No lymphadenopathy. VESSELS: Scattered atherosclerotic calcifi cations of the nonaneurysmal abdominal aorta and major branches. GI TRACT : No abnormal bowel thickening. No bowel obstruction. Mild diverticulosis with out CT evidence of diverticulitis. BONES AND SOFT TISSUES: No acute osseous injury. No suspicious lytic or blastic lesions. Degenerative changes of the v isualized spine. IMPRESSION: No acute findings in the abdomen or pelvis. Signed by: Leland Terry MD on 08/19/2019 11:13 AM Dictated By: DONTRELL TERRY MD 1113 Transcribed B y: EDMAR on 08/19/19 1113 COPY TO: DEZ RODRIGUEZ MD U/S, ABDOMINAL, FYUKXHJW2490-00-53 11:00:00Please perform elastography.Reason for Exam:->fatty liver, with elastographyLocation->[facility] HospitalFINAL REPORT TECHNIQUE: Grayscale ultrasound of the abdomen with shear wave elastography assessment of liver tissue stiffness. INDICATION: 83-year-old woman with fatty liver. COMPARISON: Abdomen ultrasound 05/05/2018. FINDINGS: MIDLINE VASCULATURE: The visualized inferior vena cava is patent. Po rtal vein is patent and measures 0.9 cm in diameter. The maximum visualized aort ic diameter is 2.3 cm. LIVER: The liver is normal in size and echogenicity. No f ocal lesions. Elastography assessment of liver tissue stiffness reveals average shear wave velocity of 1.68 m/sec after the omission of outlier measurements. BI LIARY:Gallbladder: No gallstones or sludge. No gallbladder wall thickening, anamaria cholecystic fluid, or distention. Negative sonographic Molina sign.Common bile d uct measures 0.5 cm, within normal limits. No intrahepatic biliary ductal dilat ation. PANCREAS: The pancreas is not clearly visualized due to overlying bowel g as. SPLEEN: No splenomegaly. PERITONEUM: No free fluid. KIDNEYS: The right kidne y measures 9.8 x 4.4 x 4.7 cm with cortical thickness of 1.2 cm. The left kidney measures 9.4 x 4.8 x 4.7 cm with cortical thickness of 0.9 cm. No hydronephrosi s. No sonographically evident solid mass lesion. Simple right renal cysts measur e 4.5 x 6.5 x 5.5 cm and 1.5 x 1.6 x 1.6 cm. Simple left renal cyst measures 1.4 x 1.8 x 1.7 cm. IMPRESSION:No overt hepatic steatosis. Elastography assessment is consistent with mild-moderate liver fibrosis classification (Metavir score F 2-F3). No focal liver lesion. Bilateral renal cysts. Signed: Kaykay Guevara MD Report Verified Date/Time: 05/07/2019 11:00:11 Reading Location: [address] Radiology Reading Room [[facility]] CULTURE, URINE, [id number] 00:00:00* Test Item Value Reference Range Interpretation Comments CULTURE (test code = CULTURE) See Comment CULTURE, URINE, ROUTINE MICRO NUMBER: [id number] TEST STATUS: FINAL SPECIMEN SOURCE: URINE SPECIMEN QUALITY: ADEQUATE RESULT: Multiple organisms present, each less than 10,000 CFU/mL. These organisms, commonly found on external and internal genitalia, are considered to be colonizers. No further testing performed. [facility]] CMP W/WQZO5968-14-21 13:50:00* Test Item Value Reference Range Interpretation Comments GLUCOSE; Normal (test code = 1547-9) 94 mg/dl 65-139 N Non-fasting reference interval UREA NITROGEN (BUN) (test code = UREA NITROGEN (BUN)) 73 mg/dl 7-25 CREATININE (test code = CREATININE) 2.15 mg/dl 0.60-0.88 For patients >49 years of age, the reference limitfor Creatinine is approximately 13% higher for peopleidentified as -[place]. eGFR NON- (test code = eGFR NON-FERNANDO N COLOMBIAN) 20 {ML/MIN/1.7} > OR = 60 eGFR (test code = eGFR ) 24 {ML/MIN/1.7} > OR = 60 BUN/CREATININE RATIO (test code = BUN/CREATININE RATIO) 34 {CALC} 6-22 SODIUM (test code = SODIUM) 141 mmol/L 135-146 N POTASSIUM (test code = POTASSIUM) 5.5 mmol/L 3.5-5.3 CHLORIDE (test code = CHLORIDE) 109 mmol/L 98-110 N CARBON DIOXIDE (test code = CARBON DIOXIDE) 23 mmol/L 20-32 N CALCIUM (test code = CALCIUM) 9.5 mg/dl 8.6-10.4 N PROTEIN, TOTAL (test code = PROTEIN, TOTAL) 6.2 g/dl 6.1-8.1 N ALBUMIN (test code = ALBUMIN) 3.6 g/dl 3.6-5.1 N GLOBULIN (test code = GLOBULIN) 2.6 {G/DL CALC} 1.9-3.7 N ALBUMIN/GLOBULIN RATIO (test code = ALBUMIN/GLOBULIN RATIO) 1.4 {CALC} 1.0-2.5 N BILIRUBIN, TOTAL; Normal (test code = 68227-8) 0.5 mg/dl 0.2-1.2 N ALKALINE PHSPHATASE (test code = ALKALINE PHSPHATASE) 123 u/l 33-130 N AST; Normal (test code = 1916-6) 21 u/l 10-35 N ALT; Normal (test code = 1742-6) 15 u/l 6-29 N [facility]] CBC (INCLUDES DIFF/PLT)2018-11-18 13:50:00* Test Item Value Reference Range Interpretation Comments WHITE BLOOD CELL COUNT (test code = WHITE BLOOD CELL COUNT) 7.0 {Thousand/u} 3.8-10.8 N RED BLOOD CELL COUNT (test code = RED BLOOD CELL COUNT) 3.99 {Million/uL} 3.80-5.10 N HEMAGLOBIN; Normal (test code = 23060-1) 12.6 g/dl 11.7-15.5 N HEMATOCRIT; Normal (test code = 4544-3) 37.0 % 35.0-45.0 N MCV; Normal (test code = 787-2) 92.7 fL 80.0-100.0 N MCHC; Normal (test code = 33673-9) 34.1 g/dl 32.0-36.0 N RDW; Normal (test code = 788-0) 13.3 % 11.0-15.0 N PLATELET COUNT; Normal (test code = 777-3) 276 {Thousand/u} 140-400 N MPV; Normal (test code = 76403-6) 10.7 fL 7.5-12.5 N ABSOLUTE NEUTROPHILS (test code = ABSOLUTE NEUTROPHILS) 5187 {cells/uL} 8227-9059 N ABSOLUTE LYMPHOCYTES (test code = ABSOLUTE LYMPHOCYTES) 1064 {cells/uL} 850-3900 N ABSOLUTE MONOCYTES (test code = ABSOLUTE MONOCYTES) 469 {cells/uL} 200-950 N ABSOLUTE EOSINOPHILS (test code = ABSOLUTE EOSINOPHILS) 252 {cells/ uL} 15-500 N ABSOLUTE BASOPHILS (test code = ABSOLUTE BASOPHILS) 28 {cells/uL} 0 -200 N NEUTROPHILS (test code = NEUTROPHILS) 74.1 % N LYMPHOCYTES (test code = LYMPHOCYTES) 15.2 % N MONOCYTES; Normal (test code = 69889-3) 6.7 % N EOSINOPHILS; Normal (test code = 11872-8) 3.6 % N BASOPHILS; Normal (test code = 17757-0) 0.4 % N [facility][O] Urine Dipstick (In Office)2018-11-18 13:11:00 * Test Item Value Reference Range Interpretation Comments Glucose (test code = Glucose) NEGATIVE N LEUKOCYTES (test code = LEUKOCYTES) NEGATIVE N NITRITE; Normal (test code = 83997-6) NEGATIVE N UROBILINOGEN; Normal (test code = 28826-2) NEGATIVE N PROTEIN; Normal (test code = 33316-9) NEGATIVE N pH (test code = pH) 5 N URINE BLOOD; Normal (test code = 87546-1) NEGATIVE N SPECIFIC GRAVITY; Normal (test code = 2965-2) 1.010 N KETONES; Normal (test code = 09883-1) NEGATIVE N BILIRUBIN; Normal (test code = 85449-3) NEGATIVE N COLOR URINE; Normal (test code = 5778-6) YELLOW N APPEARANCE; Normal (test code = 5767-9) CLEAR N [facility]] CULTURE, URINE, [id number] 00:00:00* Test Item Value Reference Range Interpretation Comments CULTURE (test code = CULTURE) See Comment CULTURE, URINE, ROUTINE MICRO NUMBER: [id number] TEST STATUS: FINAL SPECIMEN SOURCE: URINE SPECIMEN QUALITY: ADEQUATE RESULT: Single organism less than 10,000 CFU/mL isolated. These organisms, commonly found on external and internal genitalia, are considered colonizers. No further testing performed. [facility] 1 VEW - RGQQ0430-53-51 13:02:00 [address] [address] Patient Name: GEOVANI ANDERSEN MR #: [id number] : 1935 Age/Sex: 83/F Req #: [id number] Adm Physician: Ordered by: NALLELY MARIEE MD Report #: [id number] Location: [facility] Room/Bed: Procedure: 0226-00 03 HOPD/CXR 1 [facility] Exam Date: 09/16/18 Exam Ti me: 1240 REPORT STATUS: Signed A single frontal view of the chest. HISTORY: Weakness, UTI COMPARISON: L luis m bases on a CT of the abdomen and pelvis from May 25, 2018. D ISCUSSION: Portable technique, limits sensitivity of the exam. Tubes/ Lines: None Lungs and pleura: The left basilar volume loss is likely s table when allowing for differences in modalities, underlying pathology could be obscured. The small lung nodules are likely below the resolution of chest r adiographs. No evidence of a consolidative pneumonia or pulmonary alveolar tabitha ma. No definite pleural effusion or pneumothorax is identified. Heart and mediastinum: The cardiomediastinal silhouette appears unremarkable. Cristian kisha and soft tissues: Appear unremarkable, given this limited exam. IMPRESSION: 1. Stable left lung base atelectasis versus scarring. 2. No p neumonia or pulmonary edema. 3. Given the very small pulmonary nodules seen a t the lung bases on the comparison CT of the abdomen and pelvis, if this patie nt has a known malignancy or risk factor for lung malignancy such as a signifi cant smoking history, consider a follow-up nonemergent CT of the chest without contrast to completely evaluate the lungs. Signed by: Dr. Deshawn Guzman D.O., M.M.M. on 09/16/2018 1:07 PM Dictated By: MEGAN GUZMAN DO 130 Transcribed By: CIARA CORONADO on 09/16/18 1307 COPY TO: NALLELY MARIEE MD CHEM PANEL 2018-07-04 16:11:001.4[facility] EHEBL2240-79-10 16:11:000.5[facility]ann[facility] CMZMU3407-36-82 16:11:0022[facility] UOVQN5855-71-56 16:11:25912Yayufhws HermannCHEM EHRWH2647-23-43 16:11:002.7[facility] YLWBD9033-78-85 16:11:0012[facility] UTFNJ4950-46-59 16:11:006.5 [facility] ZLZNX3609-28-78 16:11:003.8[facility]ann[facility] PANEL 2018-07-04 16:11:0025[facility]ann[facility] HZJAI5335-10-76 16:11:0010.0[facility] CCNYO2918-47-96 16:11:18378Gcdihizq HermannCHEM TMWAK2132-71-68 16:11:0031[facility]ann[facility] GQVCS9326-95-52 16:11:0032[facility]annCHE[facility] LANQY7778-69-79 16:11:74135Dyekuwjv HermannCHEM HWMHC6791-35-29 16:11:005.0 [facility] MWTAH2048-31-30 16:11:37000Ehfifnvc HermannCHEM PANEL 2018-07-04 16:11:0054[facility]annCHE[facility] YXMBI9520-03-43 16:11:0027[facility]ann[facility] DDHKX5830-47-40 16:11:001.71[facility] BgffgnbRVMAEGDOPM1823-76-14 16:11:006.1[facility] GocruyoNNRSQPVTAM0729-76-45 16:11:000.7[facility] [place] OFGXODQWQG5743-99-99 16:11:001.8[facility] HwjgzpkFBCZALBEED3548-42-72 16:11:00 21.1[facility] YrsvvavMHTRTHYOMY4816-42-72 16:11:0070.3[facility]annHEMATOLOGY 2018-07-04 16:11:50116Uvtjgxvy HbspnqiBGTDVYPYUJ3829-50-01 16:11:0063[facility] AgwhleyZHHOLAYZXU5077-86-67 16:11:0034.2[facility] VfbigilZIOCXMHMIQ1149-27-60 16:11:00426Fxqgctmt WvhpazfFSSBGGGIXH1553-50-39 16:11:66153Huxtlskt Jovani SNBTQYINGB8816-04-21 16:11:0013.1[facility] ObvsorfDMPHFSHOSG5391-22-92 16:11:00 6327[facility] CpxtgtdPCSZRSWRRG9625-21-04 16:11:376311Rtlleesr HermannHEMATOLOGY 2018-07-04 16:11:0011.0[facility] NievvqaWGEJMWOAOY6484-77-29 16:11:009.0[facility] YlzgxfyVHRCCTYHFH6739-78-32 16:11:00* Test Item Value Reference Range Interpretation Comments MCH (test code = MCH) 30.9 pg 27.0-33.0 [facility] FumolpwKHXJQMUKKG4677-51-74 16:11:0040.1[facility]annHEMATOLOGY 2018-07-04 16:11:0090.5[facility] ByzkjcyDXODFNPZIW5593-65-69 16:11:0013.7[facility] EnajwpgNVLDYFUBEC0943-27-00 16:11:004.43[facility] JgzchwkYHCVNA2131-09-39 16:11:0090[facility] KrpjqviRAULWP9580-70-85 16:11:0063[facility] HermannLIPIDS 2018-07-04 16:11:0048[facility] TutfvpoIMDLLC4404-54-69 16:11:54516Vhmjoacz LthblabLSKCLU1169-97-67 16:11:002.9[facility] NkbfaxhIWJXRA3402-11-35 16:11:22457 [facility]annSPECIAL OJOFQHQDT1689-72-66 16:11:006.8[facility]annURINE QHGU0467-34-81 16:11:0054[facility]annURINE BYNX7666-02-01 16:11:0085[facility]annURINE TMYT3389-14-98 16:11:004.6[facility] HermannCT ABD/PEL WO BJLPQWFM-MQNC8053-37-04 16:28:00 [address] [place] [address] Patient Name: GEOVANI ANDERSEN MR #: [id number] : 1935 Age/Sex: 82/F Req #: [id number] Adm Physician: Ordered by: CHRIS GARCIA MD Report #: [id number] Location: [facility] Room/Bed: Procedure: 6410-1513 HOPD/CT ABD/PEL WO CONTRAST-HOPD Exam Date: 05/25/18 Exam Time: 1550 REPORT STATUS: Si gned EXAM: CT Abdomen and Pelvis WITHOUT contrast INDICATION: Pelvic pain /bladder area [id number] COMPARISON: None. TECHNIQUE: Abdomen an d pelvis were scanned utilizing a multidetector helical scanner from the lung base to the pubic symphysis without administration of IV contrast. Absence of intravenous contrast decreases sensitivity for detection of focal lesions and vascular pathology. Coronal and sagittal reformations were obtained. Routine p rotocol was performed. IV CONTRAST: None ORAL CONTRAST: Gastrogra fin COMPLICATIONS: None RADIATION DOSE: Total DLP: 840.7 mGy*cm Estimated effective dose: (DLP x 0.015 x size factor) mSv CTDIvol has been reviewed. It is below the limits set by the Radiation Pr otocol Committee (RPC). Dose modulation, iterative reconstruction, and/or weig ht based adjustment of the mA/kV was utilized to reduce the radiation dose to as low as reasonably achievable. FINDINGS: Absence of intravenous contras t decreases sensitivity for detection of focal lesions and vascular pathology. LINES and TUBES: None. LOWER THORAX: Few scattered pulmonary nodule s measuring up to 3 mm. Coronary artery calcifications. HEPATOBILIARY: No focal hepatic lesions. No biliary ductal dilation. GALLBLADDER: No r adio-opaque stones or sludge. No wall thickening. SPLEEN: No splenomegaly. PANCREAS: No focal masses or ductal dilatation. ADRENALS: No adren al nodules KIDNEYS/URETERS: No hydronephrosis. Left interpolar region 2 cm and right interpolar 1.1 cm fluid attenuating lesions are incompletely ch aracterized without contrast but likely represent cysts. Exophytic right infer ior pole 5.4 cm cyst. Additional rounded 1.1 cm fluid attenuating structure al don the posterior interpolar region of the left kidney may represent an exophy tic cyst or focal perinephric fluid. No stones. GI TRACT: No abnormal di stention, wall thickening, or evidence of bowel obstruction. Appendix is normal. PELVIC ORGANS/BLADDER: Hysterectomy with asymmetric rounded promin ence of the right vaginal cuff measuring 3.4 cm (series 2 image 83). No focal bladder wall thickening. LYMPH NODES: No lymphadenopathy. VESSELS: T here is mild atherosclerotic disease in the aorta and major arterial branches. PERITONEUM / RETROPERITONEUM: No free air or fluid. BONES: Unremarkab le. SOFT TISSUES: Banded area of stranding in the superficial anterior abdo heaven subcutaneous fat may be related to subcutaneous injections or surgery. IMPRESSION: 1. Rounded prominence of the right vaginal cuf f. Recommend correlation for indication for hysterectomy and direct visualizat ion to evaluate for a mass. 2. Tiny pulmonary nodules measuring up to 3 mm. C onsider follow up according to Fleischner Society 2017 guidelines. Signed by: DR. Po Coelho MD on 05/25/2018 4:41 PM Dictated By: PO Contreras MD 40 Transcribed B y: EDMAR on 05/25/181640 COPY TO: CHRIS GARCIA MD U/S, ABDOMINAL, PUMCPHEM3046-90-44 17:34:00Reason for Exam:->fatty liverFINAL REPORT Ultrasound of the Abdomen, 05/05/2018. Clinical History: Fatty liver. Comparison: 04/15/2017. Discussion:Sonographic evaluation of the abdomen is performed. Liver: 14.9 cm in length at the right midclavicular line, normal in size. Normal echogenicity. Homogeneous echotexture. No mass. Main portal vein diameter 1.1 cm. Biliary tree: Common duct 4 mm. No biliary dilatation. Gallbladder: No gallstones. No wall thickening. No per icholecystic fluid. Absent sonographic Molina sign. Pancreas: Obscured by bowel gas. Ascites: None. Spleen: 8.1 cm in length, normal in size. Kidneys: Ri ght kidney 9.7 cm in length, normal in size, with cortical thickness of 1.2 cm. Left kidney 9.3 cm in length, normal in size, with cortical thickness of 1.5 cm . Normal cortical echogenicity. No worrisome mass. Multiple anechoic cysts are present bilaterally, the largest measuring 6.7 cm in the lower pole right kidne y. No shadowing calculus. No hydronephrosis. IVC/Aorta: Segments partially se en. Unremarkable. Impression:1. Normal appearance of the liver.2. Renal cysts. Signed: Alex Fernandez MDReport Verified Date/Time: 05/05/2018 17:34:11 Alisha contreras Location: [address] Radiology Reading Room SYIPL9710-84-32 14:45:0098 [facility] QUTBY2987-69-95 14:45:000.4[facility]annCHEM PANEL 2017-12-03 14:45:0015[facility]annCHEM EWBJT6642-51-01 14:45:0023[facility]annCHE[facility] WDXAI4459-72-22 14:45:64185Yqjkgvsa HermannCHEM SLZJO5333-35-93 14:45:005.0[facility]annCHE[facility] BOIUC8839-33-73 14:45:44567Wbtxplgc HermannCHEM XPJFT2018-58-98 14:45:006.9[facility]annCHEM OKSOP4863-31-06 14:45:0010.0 [facility] PQYNN5783-42-83 14:45:0020[facility]annCHEM PANEL 2017-12-03 14:45:00* Test Item Value Reference Range Interpretation Comments B/C Ratio (test code = B/C Ratio) 21 1 - [facility]annCHE[facility] AKKTK5066-33-13 14:45:001.64[facility]annCHEM PANEL 2017-12-03 14:45:0035[facility]annCHEM ELNIK3790-64-22 14:45:61020Atldirup HermannCHEM CDAMG1254-73-65 14:45:00* Test Item Value Reference Range Interpretation Comments A/G Ratio (test code = A/G Ratio) 1.2 1 1.2-2.2 [facility] NROQI2094-61-45 14:45:003.1[facility]annCHEM PANEL 2017-12-03 14:45:003.8[facility] DcfkrupCRPRZGLYVA0518-42-89 14:45:000.0[facility] SbzuzfgZIOYWXRJTN7338-06-19 14:45:001[facility] PlhruqfENQZNWVVFF1935-80-12 14:45:000.0[facility] NdaawudYZECJFTTXY2199-69-29 14:45:000.1[facility] VEQPCPNSVK1247-50-73 14:45:000.4[facility] WlfrjdkTLKOUPDJBE0445-63-90 14:45:002 [facility] FrtmfnyYYZUWRGNQO9204-01-01 14:45:007[facility]annHEMATOLOGY 2017-12-03 14:45:0032[facility] TctxwpqYYJYMTLFZP0274-84-65 14:45:0057[facility] KcgnlrqNIKFQLYURG8353-63-49 14:45:00820Hcxutxju HondngiFLYPNSIUXG4356-39-60 14:45:0014.6[facility] IxjwfueCYTNEDTJZK5912-44-53 14:45:001.8[facility] YWFFORJJAN9908-86-54 14:45:003.2[facility] FhpncyqZXTMBJLEKN2045-33-66 14:45:001 [facility] IvxauauHXQPNCJXWQ5253-00-01 14:45:0031.9[facility]annHEMATOLOGY 2017-12-03 14:45:005.6[facility] EhclbevZPHYBOYDMU9067-36-62 14:45:00* Test Item Value Reference Range Interpretation Comments MCH (test code = MCH) 30.3 pg 26.6-33.0 [facility] PijcjcjUXPTLKXRFY0909-01-67 14:45:0095[facility]annHEMATOLOGY 2017-12-03 14:45:0040.1[facility] OsawrnnUPAIBXVULL3642-69-42 14:45:0012.8[facility] LwbcsfnSFPCHFTIAF0291-09-62 14:45:004.22[facility]annSPECIAL CHEMISTRY 2017-12-03 14:45:008.0[facility][O] Flu Test (in Office )2017-10-18 12:59:00* Test Item Value Reference Range Interpretation Comments Flu A (test code = Flu A) Negative N Flu B (test code = Flu B) Negative N [facility]icians[facility], ABDOMINAL, BZFJEXJH6435-52-61 13:40:00please perform elastographyplease perform elastographyReason for Exam:->fatty liver, please perform elastographyplease perform elastographyFINAL REPORT Abdominal ultrasound dated 04/15/2017 Clinical information:fatty [...] portal vein measures 10 mm in diameter. P ancreas is suboptimally visualized secondary to overlying gas. Right kidney kia ures 10.2 x 4.8 x 4.8 cm. Left kidney measures 9.1 x 4.8 x 3.8 cm. Echogenicit y of both kidney is normal. No hydronephrosis or solid mass seen in either kidn ey. Several cysts are seen in the right kidney with the largest measuring 5.4 x 5.6 x 5.4 cm. A 1.8 x 1.9 x 1.4 cm cyst is seen in the left kidney. No ascites i s present in the abdomen. Abdominal aorta is normal in caliber. IVC and Hepatic veins are patent. Elastography of the liver was performed. The assessment of li indira tissue stiffness is the following.Average liver stiffness is 1.58 m/s.Standa rd deviation is 0.79 m/s.Median liver stiffness is 1.55 m/s. The findings correl ate with mild to moderate liver fibrosis. Liver fibrosis Liver Bx Scor e ShearWave velocity(m/s) Normal F0 0.82 - 1.23Normal - Mild F0 - F1 1.23 - 1.38Mild - Moderate F2 - F3 1.38 - 2.00Moder ate - Severe F3 - F4 2.0 - 2.65Severe F4 >2.65 Impression: 1. Echogenic liver suggestive of diffuse liver parenchymal disease.2. Suboptimal visualization of the pancreas secondary to overlying gas.3. Bilateral renal cysts.4. Mild to moderate hepatic fibrosis. Signed: Charles Ornelas Verified Date/Time: 04/15/2017 13:40:05 Reading Location: [address] Radiology Reading Room A FETOPROTEIN (AFP), TUMOR [id number] 11:41:00* Test Item Value Reference Range Interpretation Comments ALPHA-FETOPROTEIN (BEAKER) (test code = 1094) < ng/mL <10.0 BASIC METABOLIC LYEPT7125-82-61 11:05:00* Test Item Value Reference Range Interpretation Comments SODIUM (BEAKER) (test code = 381) 141 meq/L 136-145 POTASSIUM (BEAKER) (test code = 379) 5.2 meq/L 3.5-5.1 H Specimen slightly hemolyzed CHLORIDE (BEAKER) (test code = 382) 112 meq/L 98-107 H CO2 (BEAKER) (test code = 355) 18 meq/L 22-29 L BLOOD UREA NITROGEN (BEAKER) (test code = 354) 50 mg/dL 7-21 H CREATININE (BEAKER) (test code = 358) 1.39 mg/dL 0.57-1.25 H Specimen slightly hemolyzed GLUCOSE RANDOM (BEAKER) (test code = 652) 98 mg/dL 70-105 CALCIUM (BEAKER) (test code = 697) 9.8 mg/dL 8.4-10.2 EGFR (BEAKER) (test code = 1092) 36 mL/min/1.73 sq m ESTIMATED GFR IS NOT ACCURATE CREATININE CLEARANCE IN PREDICTING GLOMERULAR FILTRATION RATE. ESTIMATED GFR IS NOT APPLICABLE FOR DIALYSIS PATIENTS. HEPATIC FUNCTION [id number] 11:05:00* Test Item Value Reference Range Interpretation Comments TOTAL PROTEIN (BEAKER) (test code = 770) 6.5 gm/dL 6.0-8.3 Specimen slightly hemolyzed ALBUMIN (BEAKER) (test code = 1145) 3.7 g/dL 3.5-5.0 Specimen slightly hemolyzed BILIRUBIN TOTAL (BEAKER) (test code = 377) 0.6 mg/dL 0.2-1.2 Specimen slightly hemolyzed BILIRUBIN DIRECT (BEAKER) (test code = 706) 0.2 mg/dL 0.1-0.5 Specimen slightly hemolyzed ALKALINE PHOSPHATASE (BEAKER) (test code = 346) 108 U/L 40-150 AST (SGOT) (BEAKER) (test code = 353) 27 U/L 5-34 Specimen slightly hemolyzed ALT (SGPT) (BEAKER) (test code = 347) 14 U/L 6-55 Specimen slightly hemolyzed GAMMA GLUTAMYL TRANSFERASE (GGT)2017-04-15 11:05:00* Test Item Value Reference Range Interpretation Comments GAMMA GLUTAMYL TRANSFERASE (BEAKER) (test code = 364) 45 U/L 9-64 Specimen slightly hemolyzed CBC W/PLT COUNT & AUTO OWMXVNOECNYS2578-95-17 10:49:00* Test Item Value Reference Range Interpretation Comments WHITE BLOOD CELL COUNT (BEAKER) (test code = 775) 12.5 K/ L 3.5- 10.5 H RED BLOOD CELL COUNT (BEAKER) (test code = 761) 4.45 M/ L 3.93-5 .22 HEMOGLOBIN (BEAKER) (test code = 410) 13.7 GM/DL 11.2-15.7 HEMATOCRIT (BEAKER) (test code = 411) 44.4 % 34.1-44.9 MEAN CORPUSCULAR VOLUME (BEAKER) (test code = 753) 99.8 fL 79. 4-94.8 H MEAN CORPUSCULAR HEMOGLOBIN (BEAKER) (test code = 751) 30.8 pg 25.6-32.2 MEAN CORPUSCULAR HEMOGLOBIN CONC (BEAKER) (test code = 752) 30.9 GM/DL 32.2-35.5 L RED CELL DISTRIBUTION WIDTH (BEAKER) (test code = 412) 14.2 % 11.7-14.4 PLATELET COUNT (BEAKER) (test code = 756) 280 K/CU MM 150-450 MEAN PLATELET VOLUME (BEAKER) (test code = 754) 11.3 fL 9.4-12 .3 NUCLEATED RED BLOOD CELLS (BEAKER) (test code = 413) 0 /100 WBC 0 -0 NEUTROPHILS RELATIVE PERCENT (BEAKER) (test code = 429) 58 % LYMPHOCYTES RELATIVE PERCENT (BEAKER) (test code = 430) 32 % MONOCYTES RELATIVE PERCENT (BEAKER) (test code = 431) 7 % EOSINOPHILS RELATIVE PERCENT (BEAKER) (test code = 432) 1 % BASOPHILS RELATIVE PERCENT (BEAKER) (test code = 437) 1 % NEUTROPHILS ABSOLUTE COUNT (BEAKER) (test code = 670) 7.30 K/ L 1.56-6.13 H LYMPHOCYTES ABSOLUTE COUNT (BEAKER) (test code = 414) 4.00 K/ L 1.18-3.74 H MONOCYTES ABSOLUTE COUNT (BEAKER) (test code = 415) 0.83 K/ L 0. 24-0.36 H EOSINOPHILS ABSOLUTE COUNT (BEAKER) (test code = 416) 0.07 K/ L 0.04-0.36 BASOPHILS ABSOLUTE COUNT (BEAKER) (test code = 417) 0.11 K/ L 0. 01-0.08 H IMMATURE GRANULOCYTES-RELATIVE PERCENT (BEAKER) (test code = 2801) 1 % 0-1 CHEM AIQLI4104-61-73 15:27:0045.9[facility] GfjypaeJQHKRNLOTVIG9820-44-78 15:27:00 103[facility] IffvmjuFFOXJUAEOUSS2371-50-99 15:27:009.5[facility] YIZKTDTDUPYC1983-84-67 15:27:0021[facility] MqdzxqkBMOPJGKLGCAU9717-46-36 15:27:00 1.40[facility] QonidymGJWIRVAEDYBR1391-67-13 15:27:00* Test Item Value Reference Range Interpretation Comments B/C Ratio (test code = B/C Ratio) 21 1 11-26 [facility] ArcmfjqWHBGWZTXDULZ2060-90-98 15:27:26511Ubspwjxr HermannELECTROLYTES 2016-07-30 15:27:004.6[facility] BaubzlnUZPYNLMJVNBN9251-14-19 15:27:06595Dmjgszba VarzaliZNZORUBNPDHD8281-92-35 15:27:0030[facility] UihzsivDAHTDILTLBFK8419-78-22 15:27:000.4[facility] MldofbbOFOPTSQXCLJL3369-89-12 15:27:003.9[facility] KIQWBPFJMTND7961-30-35 15:27:002.2[facility] ZintrfhJOEQXBLXUNUS4080-20-67 15:27:006.1[facility] QpvcdihZPCGRVLMMOAU5650-52-34 15:27:00* Test Item Value Reference Range Interpretation Comments A/G Ratio (test code = A/G Ratio) 1.8 1 1.1-2.5 [facility] PqpzdyqDXQIRZAACAPJ5024-20-76 15:27:87901Pksgmaan HermannELECTROLYTES 2016-07-30 15:27:0013[facility] JrnfhhdBKMAGQSPHLVY1461-83-34 15:27:0024[facility] SbpazluBIFTQVSGIK0471-47-38 15:27:001[facility] QizygldBCNWBZVJRL0205-75-08 15:27:007[facility] ZmxzespFKXTXCANQR2433-04-04 15:27:003[facility] EQMEJKEDID0730-65-63 15:27:003.9[facility] IacohtfVKZMKLGMAD8688-27-18 15:27:00* Test Item Value Reference Range Interpretation Comments MCH (test code = MCH) 31.1 pg 26.6-33.0 [facility] JfecsmkERZBRNMZXA4181-54-54 15:27:25142Idzkjxqq HermannHEMATOLOGY 2016-07-30 15:27:0051[facility] GwlzyleGKYSJGOVNW0554-41-73 15:27:0033.5[facility] OflnsijLHJBFYAVYS4954-14-98 15:27:0014.4[facility] OeseqwxYOUZSQTSKM8911-78-46 15:27:000.0[facility] DjtrrcaQLJTBNRLHQ7112-77-45 15:27:000.5[facility] BLCYNTRWCW9448-50-04 15:27:000.2[facility] PahgwegANFFYUAEOK5797-55-30 15:27:002.8 [facility] PtocolrQWNLQDWIGA2911-45-28 15:27:000.0[facility] HermannHEMATOLOGY 2016-07-30 15:27:000[facility] TvlztwwIQVCPANPKC6985-88-92 15:27:007.5[facility] PyvikaqPIJPWHVVDA5524-99-24 15:27:0038[facility] GqankrjMQSBFKXKZM0769-86-84 15:27:004.25[facility] LfxygiuFZUGAYPJHZ4779-22-58 15:27:0093[facility] HCMCUKRQYZ4586-96-29 15:27:0013.2[facility] CmbxvjrLPQGRALUYW7407-98-88 15:27:00 39.4[facility] PfnqrzbUEDAKF9263-05-21 15:27:58920Livxxeyx HqtynroNMOQCK5959-80-96 15:27:53744Cyzstjfn SyavocnTOWGCS6110-70-63 15:27:0061[facility] HermannLIPIDS 2016-07-30 15:27:0023[facility] CdqquavDSKSUA2570-25-66 15:27:000.8[facility] MybnxduZFWEWM7958-96-52 15:27:0048[facility] HermannSPECIAL WERVENUEE9208-57-18 15:27:006.8[facility] HermannCHEM MOYQR2606-36-56 15:05:0051.6[facility] URINE GLQW2129-11-57 15:05:0062.7[facility] HermannURINE JXPX2425-71-83 15:05:00 27.6[facility] HermannURINE YIVO1416-99-19 15:05:0017.3[facility] HermannCHEM PANEL 2016-04-16 18:02:0042[facility] HermannCHEM GMFMT3000-88-79 18:02:003.1[facility] HermannCHEM OAOEG5813-33-18 18:02:0031[facility] HermannCHEM XNSRN0281-06-21 18:02:006.9[facility] HermannCHEM XWEPW6208-14-52 18:02:000.6[facility] HermannCHEM SBWRL3600-14-89 18:02:83415Ukcxtdgg HermannCHEM DMAOP5634-09-43 18:02:0028 [facility] HermannCHEM EFQXI9812-77-62 18:02:001.20[facility] HermannCHEM PANEL 2016-04-16 18:02:0017[facility] HermannCHEM HURHQ4143-14-76 18:02:66547Ttrrhbip HermannCHEM TTCNX5951-95-96 18:02:003.9[facility] HermannCHEM VMWVU9573-25-35 18:02:05723Vifsiosg HermannCHEM QZXUV7242-14-13 18:02:009.2[facility] HermannCHEM NMJXS9848-90-87 18:02:0026[facility] HermannCHEM SIDHD5603-31-91 18:02:22824 [facility] HermannCHEM MUWCG1370-58-42 18:02:000.8[facility] HermannCHEM PANEL 2016-04-16 18:02:003.8[facility] HermannCHEM FVKQV5535-60-49 18:02:0014[facility] HermannCHEM KMHSQ1766-32-43 18:02:0010.9[facility] WergecmAEDKUSYYKJ7197-29-63 18:02:008.0[facility] DgyznjhFPPAJDKZRU4827-10-03 18:02:00* Test Item Value Reference Range Interpretation Comments MCH (test code = MCH) 31.1 pg 27.0-31.0 [facility] RscydejPJJSTETLCQ3085-42-80 18:02:0092.3[facility] HermannHEMATOLOGY 2016-04-16 18:02:0033.6[facility] TiizlxiODJXGLWPNT0884-34-70 18:02:0014.1[facility] TscjdgqRHBYIMZIBD2910-45-80 18:02:76857Eydisqhh XuoffwoSRJPVCNGJJ8934-17-57 18:02:009.2[facility] XxwbfrrKNJWPWNHLI7869-49-57 18:02:0035.7[facility] SYDQEBSWYX9201-22-48 18:02:003.87[facility] IgwcjdjBEQIGMTTXI7884-48-24 18:02:00 12.0[facility] YrjldujZBIOYTNWDI5420-73-12 18:02:000.7[facility] HermannHEMATOLOGY 2016-04-16 18:02:006.8[facility] WwahcmtLBJMCDRHBI9405-50-96 18:02:002.9[facility] EckzrnxSFOPFGMAYF5568-59-96 18:02:006.7[facility] VhxatprWULUGMOBYO4284-22-18 18:02:000.3[facility] QiweoxtDQNCTRXWHM3473-66-31 18:02:000.6[facility] NOFQFGBNNO1443-98-77 18:02:001.5[facility] WzvruseNSWAGPGQNP9164-50-73 18:02:000.1 [facility] YpyjiceYSFBKDQJMC3528-39-58 18:02:0073.5[facility] HermannHEMATOLOGY 2016-04-16 18:02:0016.2[facility] HermannCHEM NQTDY1335-97-74 11:22:0030[facility] HermannCHEM QRYYF9151-36-84 11:22:0017[facility] HermannCHEM GURIC5736-51-09 11:22:35415Aekltxsg HermannCHEM MTDJT7828-62-95 11:22:008.2[facility] HermannCHEM PPTMZ8395-43-07 11:22:0015.4[facility] HermannCHEM IKBWD1014-69-47 11:22:61757 [facility] HermannCHEM RFCXD2512-02-44 11:22:004.4[facility] HermannCHEM PANEL 2016-04-09 11:22:74797Tnxynerr HermannCHEM QSIDZ0749-50-74 11:22:001.59[facility] HermannCHEM HWTMM0149-90-62 11:22:0042[facility] HermannCHEM TNUYY2521-55-42 11:22:002.0[facility] HermannCHEM JSIQJ9639-37-74 11:22:003.1[facility] SENMOVWCRF6263-83-97 11:22:0082.1[facility] HkvuoomMREZGBXIAZ6217-76-37 11:22:00 9.1[facility] YpgdfjlEHBXTVPXSL1046-74-41 11:22:007.8[facility] HermannHEMATOLOGY 2016-04-09 11:22:000.8[facility] TwrjrebNRMQDJJMXM2317-30-10 11:22:000.1[facility] ClceecaTLYRVEWBGF0046-81-61 11:22:008.6[facility] FcanilxSSGZPPIBGR5503-75-41 11:22:001.0[facility] NtxgzskPOFHLQFDCT6635-37-99 11:22:000.3[facility] FRWWBROLTU0140-87-60 11:22:000.7[facility] PqpquaoOLVLNQMAKH1737-77-57 11:22:00 14.2[facility] XismqihSHICUGNJKI8792-56-05 11:22:45898Tyekfmrv HermannHEMATOLOGY 2016-04-09 11:22:009.1[facility] LfadgavVHPDMXFXUA7030-33-69 11:22:0033.5[facility] DukxqqeJMZSRABBTE9263-74-21 11:22:00* Test Item Value Reference Range Interpretation Comments MCH (test code = MCH) 31.6 pg 27.0-31.0 [facility] WtonbekLUTJPOQTQE4469-99-36 11:22:0094.2[facility] HermannHEMATOLOGY 2016-04-09 11:22:0011.0[facility] TyxgbkoLTYBCMYNNE6926-45-98 11:22:003.50[facility] AolodmbVHGUZKKNHE3224-37-16 11:22:0033.0[facility] ZjatobcWWSBIOMIJE2916-98-22 11:22:0010.5[facility] HermannCHEM IEALQ8164-60-81 13:55:0021[facility] HermannCHEM WARCL7363-01-08 13:55:0054[facility] HermannCHEM QBHEN6984-24-48 13:55:002.16 [facility] HermannCHEM XQYLS9357-76-27 13:55:88476Pyyhvwkg HermannCHEM PANEL 2016-04-08 13:55:44327Jgpqjjhy HermannCHEM GVBAY7553-43-32 13:55:36072Qqzdkiqx HermannCHEM OQWMG1858-51-60 13:55:004.6[facility] HermannCHEM BERPT6903-99-37 13:55:0019[facility] HermannCHEM CYHJA3291-01-20 13:55:008.2[facility] HermannCHEM NROVB5811-79-85 13:55:0014.6[facility] HermannCHEM HOFBV7827-69-21 13:55:002.0 [facility] HermannCHEM PEFYS4088-24-32 13:55:003.5[facility] HermannHEMATOLOGY 2016-04-08 13:55:0031.9[facility] GeuggneUUEBPONHCO7448-36-87 13:55:0013.9[facility] UhanhcvTLZDWBLZNN5254-03-35 13:55:009.1[facility] AigcbkyOBZSXJUXKV4951-21-08 13:55:13750Zwuznhcu FbntqwjBZXZLTRYBO9109-40-60 13:55:003.79[facility] STVLSTEJAM3102-19-68 13:55:0011.5[facility] CofkicjXOSWEFOHYZ9374-26-64 13:55:00 15.8[facility] ChvsdraUSATQPIJEA4358-61-00 13:55:00* Test Item Value Reference Range Interpretation Comments MCH (test code = MCH) 30.3 pg 27.0-31.0 [facility] ZjlzpduJKCHHOTTMZ3780-77-71 13:55:0094.9[facility] HermannHEMATOLOGY 2016-04-08 13:55:0035.9[facility] JbtwhomIBETDHFHWU7033-07-95 13:55:000.1[facility] AtaynoqIMSDOSMPGV7835-52-05 13:55:000.2[facility] ZhxmwupSDNVOKJAQO4300-71-81 13:55:001.2[facility] FyhclmtTOMNIVAMAR4862-54-09 13:55:0011.6[facility] ASCJXTYXCQ5310-03-97 13:55:0079.2[facility] EmireyyMKIANPRWCI7649-12-16 13:55:00 1.8[facility] HvzdfkkYBHCEMNHTM1885-49-89 13:55:007.6[facility] HermannHEMATOLOGY 2016-04-08 13:55:001.1[facility] YlzepjzGNIDIWRFKR6936-67-54 13:55:000.5[facility] RexagyiQFAEQOSSEP1537-19-75 13:55:0012.5[facility] HermannCHEM ZVUJQ8333-07-61 17:52:0025[facility] HermannCHEM RVNTN8785-85-19 17:52:001.88[facility] APJAATYTSN1767-51-14 17:52:24649Inkobxig HermannURINE AND WJIGU3764-61-25 12:09:00Slight Cloudy (04/07/16 7:09 AM)[facility]annURINE AND RUSDZ3675-82-10 12:09:00* Test Item Value Reference Range Interpretation Comments UA Spec Grav (test code = UA Spec Grav) 1.020 1 [facility]annURINE AND GCNPD7896-41-82 12:09:00* Test Item Value Reference Range Interpretation Comments UA pH (test code = UA pH) 6.0 1 5.0-8.0 [facility]UR[facility] AND XICEX8099-79-46 12:09:00Large *ABN*(04/07/16 7:09 AM) [facility]UR[facility] AND NGSIB6056-13-27 12:09:000.2[facility]annURINE AND KDRAU8941-75-48 12:09:00Negative *NA*(04/07/16 7:09 AM)[facility] AND WMHJP3819-03-64 12:09:00Positive *ABN*(04/07/16 7:09 AM)[facility] AND WCAFV6719-82-06 12:09:00Negative *NA*(04/07/16 7:09 AM)[facility]UR[facility] AND LXNIJ7329-22-26 12:09:00Large *ABN*(04/07/16 7:09 AM)[facility] AND HNCKH8584-66-31 12:09:00Yellow *NA*(04/07/16 7:09 AM)[facility] HermannCARDIAC UTAYUNF3024-29-95 11:59:00<0.02[facility] HermannCARDIAC POUXUOS8352-44-71 11:59:0091[facility] HermannCHEM OEQPS3874-90-26 11:59:001.9[facility] SBMMRJCFVS4048-34-66 11:59:00* Test Item Value Reference Range Interpretation Comments PTT (test code = PTT) 25.2 s 22.9-35.8 [facility] JokkllmFGZKQAHTYI1322-77-86 11:59:00* Test Item Value Reference Range Interpretation Comments PT (test code = PT) 13.6 s 12.0-14.7 [facility] GjpzpgdQDTLRRLODO0011-92-52 11:59:001.01[facility] HermannHEMATOLOGY 2016-04-07 11:39:003.2[facility] PwxrbucKUHPPWBWUC5860-19-72 11:39:000.4[facility] EouwlilFTXJWCYUGZ6393-59-24 11:39:000.3[facility] YlicmidUVABCIPMXX3670-64-96 11:39:000.4[facility] AatsolwMIAYQSJBKH0717-19-44 11:39:0010.7[facility] ZVMGJOQTWU9321-38-76 11:39:000.7[facility] NfcgijnRKFWKAKNZX2512-18-10 11:39:00 87.9[facility] KmpjjfgBXTJBYZCOS9976-59-65 11:39:008.5[facility] HermannHEMATOLOGY 2016-04-07 11:39:0014.0[facility] LauwleiSSFYLIUASV4681-19-30 11:39:00* Test Item Value Reference Range Interpretation Comments MCH (test code = MCH) 30.4 pg 27.0-31.0 [facility] FlxkqpxFWWRZYOGKZ4985-03-47 11:39:0032.4[facility] HermannHEMATOLOGY 2016-04-07 11:39:0093.8[facility] VdlpruoCXTINQQKSJ8502-94-00 11:39:004.00[facility] TwalthkLOHMJJKRRS4654-53-63 11:39:0012.1[facility] HhbtidyFQBVZIBSCR9737-94-28 11:39:003.6[facility] UtphxdrDKDVZIZUZT4486-05-42 11:39:0037.5[facility] HermannCHEM SSIPJ1953-49-62 11:38:000.35[facility] HermannCHEM GWDUA3962-30-12 11:38:36439 [facility] HermannCHEM UKCCF2070-73-13 11:38:001.0[facility] HermannCHEM PANEL 2016-04-07 11:38:003.6[facility] HermannCHEM CRAYB9637-12-10 11:38:0048[facility] HermannCHEM CDTDA4035-49-20 11:38:000.9[facility] HermannCHEM YVBVB0006-82-70 11:38:0056[facility] HermannCHEM NBGWN4142-56-37 11:38:003.3[facility] HermannCHEM ANOBY2297-64-92 11:38:009.0[facility] HermannCHEM VYWIA8696 11:38:009.3 [facility]annCHEM JDFCE1938-57-83 11:38:006.9[facility] HermannCHEM PANEL 2016-04-07 11:38:0025[facility] HermannCHEM KSVEB0264-17-89 11:38:0024[facility] HermannCHEM IJEFN7265-28-77 11:38:02585Puebbkln HermannCHEM BMOAQ2768-92-81 11:38:33474Kujshilc HermannCHEM RUYTL1502-97-40 11:38:004.3[facility] HermannCHEM EZMYK0760-01-77 11:38:0045[facility] HermannCHEM CQQQB5215-41-79 11:38:06827 [facility]annCHEM IYLGM6015-68-04 23:52:009.7[facility] HermannCHEM PANEL 2016-04-06 23:52:0026[facility] HermannCHEM ZDVIF3137-69-64 23:52:19439Lolxgpnd HermannCHEM NVSFT2858-91-15 23:52:001.77[facility] HermannCHEM GXWSP1357-87-17 23:52:0047[facility] HermannCHEM PYBKR8460-89-46 23:52:0015.1[facility] HermannCHEM ACOWV0205-23-09 23:52:63902Aqyfdpjq HermannCHEM CQYVM4877-73-66 23:52:005.1 [facility] HermannCHEM UCMHH3196-89-30 23:52:0018[facility] HermannCHEM PANEL 2016-04-06 23:52:92370Xwtlzijr HermannCARDIAC MMGCSKL6446-19-77 19:21:07381 [facility]annCARDIAC AHOYSBD8618-71-41 19:21:001.2[facility] HermannCARDIAC JHLHVZW3682-27-57 19:21:00<0.02[facility] HermannCARDIAC QLMNEIP3665-32-25 19:21:001.2[facility] HermannCHEM EMFJU5107-89-47 19:21:0026[facility] HermannCHEM YKNXD3579-55-60 19:21:02893Hyomlxki HermannCHEM IYWKO2517-47-64 19:21:0037 [facility]annCHEM HGQCA9625-14-59 19:21:003.6[facility] HermannCHEM PANEL 2016-04-06 19:21:0031[facility] HermannCHEM QQLSV9004-27-55 19:21:009.4[facility] HermannCHEM RAZIJ7839-58-73 19:21:007.5[facility] HermannCHEM RMHHC8741-50-51 19:21:0018[facility] HermannCHEM CTPEB3308-45-04 19:21:001.80[facility] HermannCHEM EMDAE5234-45-41 19:21:47375Puwmatlo HermannCHEM NWAEA7377-93-79 19:21:81081 [facility]annCHEM XJJRU4554-01-01 19:21:005.8[facility] HermannCHEM PANEL 2016-04-06 19:21:0050[facility] HermannCHEM EHRVT3555-94-27 19:21:0028[facility] HermannCHEM DHABU1396-48-54 19:21:003.9[facility] HermannCHEM IPZDM2758-37-67 19:21:000.9[facility] HermannCHEM SGCWW2649-07-93 19:21:000.6[facility] HermannCHEM WZXMQ3150-48-03 19:21:0015.8[facility] HermannCHEM BNUXF1149-24-51 19:21:02602 [facility] XrpsqjlLDYXGNATQC1194-14-06 19:21:00See Note 1(04/06/16 2:21 PM)[facility] BngixsyZZPMPJLVJI5063-64-03 19:21:0020.1[facility] RuzzymuVRYHJNQPIT0333-69-98 19:21:0094.9[facility] HjhdigsVBWMWWHOTX2640-48-13 19:21:00* Test Item Value Reference Range Interpretation Comments MCH (test code = MCH) 30.9 pg 27.0-31.0 [facility] ZqxeoepCOVZVGURXA0720-08-11 19:21:0032.6[facility] HermannHEMATOLOGY 2016-04-06 19:21:004.29[facility] TzucgatAYBVOMECDJ9963-29-41 19:21:0013.3[facility] BrhglavHFUZMSOZWX4712-75-83 19:21:0040.7[facility] QmqacblIBMBLCBUQG4334-99-04 19:21:0014.5[facility] RtzznktSFEWJOUORD2601-78-60 19:21:76352Wrmrqkgr Jovani UYIIZBBOIT4934-74-60 19:21:009.1[facility] FnybdnsMDIIQMZMVG1448-44-03 19:21:000.9 [facility] VucgwlhLCOHOXCIKN8753-59-88 19:21:007.7[facility] HermannHEMATOLOGY 2016-04-06 19:21:000.1[facility] XfpjhxyOUFXIYWQOJ1564-43-55 19:21:000.2[facility] TilrwghVMRFIYDQKR3085-12-09 19:21:001.5[facility] EuxqkffTFJVZVSDYY2326-13-07 19:21:002.1[facility] UfuejwxAPOMTZHVJA3737-16-87 19:21:000.4[facility] JJNNYAPYDL4053-93-62 19:21:0016.2[facility] PtpspizWPETMDTILR9812-49-73 19:21:00 10.4[facility] CxtedegWGNTZZTJIA4594-07-78 19:21:00Normal (04/06/16 2:21 PM) [facility] ZifxraoETBDKSJQBI0398-57-04 19:21:00Normal (04/06/16 2:21 PM)[facility] QtdyuziRZJOQZGPPB8898-13-42 19:21:0080.6[facility] 2015-10-01 15:38:007[facility] FPUZO1648-70-92 15:38:00Small *ABN*(10/01/15 9:38 AM)[facility] MDGDC6896-22-05 15:38:00Negative (10/01/15 9:38 AM)[facility] HPYUX3486-97-92 15:38:00Moderate *ABN*(10/01/15 9:38 AM)[facility] NAQIM1595-15-91 15:38:0018 [facility] JSUGW3794-65-19 15:38:00Negative *NA*(10/01/15 9:38 AM) [facility] IKSWW7082-08-74 15:38:00Clear (10/01/15 9:38 AM) [facility] WDNQF6087-53-90 15:38:005.0[facility] PLYBH0116-33-92 15:38:001.014[facility]annCARDIAC HJAVWEM9622-43-01 14:53:00< 0.02[facility] KVWESFC9707-89-73 14:53:0051[facility] CVYXLDC7122-22-72 14:53:000.8[facility] MOTNONH3706-15-98 14:53:00 1.6[facility]annCHEM YOAGZ1336-18-69 14:53:000.9[facility]annCHEM PANEL 2015-10-01 14:53:003.5[facility]annCHE[facility] LCWLM4290-79-81 14:53:0047[facility]annCHE[facility] KFBVB3117-45-96 14:53:0025[facility]annCHE[facility] AEXWQ1739-66-55 14:53:01917Iqembdgk HermannCHEM EPTPA3207-02-93 14:53:67113Kdydjzxy HermannCHEM VYSKQ5395-60-03 14:53:004.0[facility]annCHE[facility] AORVF9274-19-85 14:53:0029 [facility] SWRHE2915-93-19 14:53:0012.0[facility]annCHEM PANEL 2015-10-01 14:53:0022[facility]annCHE[facility] PSYFH9971-27-39 14:53:96683Hnndmdvc HermannCHEM IJGOJ7802-52-59 14:53:000.5[facility]annCHE[facility] RPCPP2222-02-07 14:53:003.3[facility]annCHE[facility] RAAUS5167-27-42 14:53:006.8[facility]annCHE[facility] DISRX2983-50-78 14:53:0038[facility]annCHE[facility] DWVXQ5320-84-14 14:53:0024 [facility] VLHJG3663-33-04 14:53:001.10[facility]annCHEM PANEL 2015-10-01 14:53:93953Rcbdngro HermannCHEM QREXK8307-41-79 14:53:009.3[facility] RxbcdsaKYIQOLUOGV3844-46-93 14:53:0091.7[facility] XxihtxwDTTGZYJLOE8714-92-94 14:53:00* Test Item Value Reference Range Interpretation Comments MCH (test code = MCH) 29.9 pg 27.0-31.0 [facility] HdrrzmkJWWPLLSRFN5025-43-40 14:53:0040.1[facility]annHEMATOLOGY 2015-10-01 14:53:0015.0[facility] UglkgzqTZQTNMJIVG4741-81-61 14:53:84592Itytcemu TswvqsqQFZKYUJLLJ7370-09-01 14:53:0032.7[facility] BkyalacTZFXIWWUVR8582-10-29 14:53:007.9[facility] GaisbquNVYIJEYPLH6003-65-06 14:53:004.37[facility] ZGIINZPIFV3731-10-44 14:53:007.5[facility] NnzdrqdOTDWWHWOEH1802-22-68 14:53:00 13.1[facility] YtlcimwERXBAJKGMT0306-74-99 14:53:000.1[facility]annHEMATOLOGY 2015-10-01 14:53:007.1[facility] WxcrglzORGHPVHTEE1913-25-71 14:53:0028.3[facility] XxhwjjtRYRYRLCLHD1425-87-37 14:53:000.7[facility] OcatgqlKGJAJFJQGX3226-80-76 14:53:003.6[facility] MwhupumAGPKXTEQFL6113-53-99 14:53:0060.3[facility] TSYLSEQNRU5179-65-35 14:53:002.1[facility] UqksuxwHFRRGJIUUB5229-49-85 14:53:000.3 [facility] MmqqsytDIXDPTGHBV6920-00-98 14:53:004.5[facility]annHEMATOLOGY 2015-10-01 14:53:000.5[facility] IQETK5668-48-90 15:21:009 [facility] DZABI1633-12-12 15:21:0035[facility] SYXXZ2672-81-20 15:21:00Negative (09/22/15 9:21 AM)[facility] STOOL 2015-09-22 15:21:00Small *ABN*(09/22/15 9:21 AM)[facility] ST[facility]OL 2015-09-22 15:21:00Moderate *ABN*(09/22/15 9:21 AM)[facility] 2015-09-22 15:21:00Negative *NA*(09/22/15 9:21 AM)[facility] 2015-09-22 15:21:005.0[facility] ELLVK8860-87-17 15:21:00Slight *ABN*(09/22/15 9:21 AM)[facility] BGNQV6416-47-40 15:21:001.018 [facility] XJVUN9104-55-69 15:21:00Yellow *NA*(3/3/16 9:21 AM) [facility]annCHE[facility] JXMNG1692-26-43 15:02:002.5[facility]annCHEM PANEL 2015-09-22 15:02:002.3[facility]annCHEM IHUKQ1091-70-25 15:02:98560Ofclnesy HermannCHEM MXPTF6422-41-80 15:02:98332Cfbpdduj HermannCHEM DPWAF8756-40-57 15:02:004.7[facility]annCHEM UZJEE9844-36-43 15:02:008.6[facility]annCHEM EVTUW3589-75-87 15:02:0025[facility]annCHE[facility] DOGWF5640-72-14 15:02:003.1 [facility]annCHE[facility] GHJYO8523-57-63 15:02:006.4[facility]annCHEM PANEL 2015-09-22 15:02:0032[facility]annCHE[facility] TPKPD6322-58-42 15:02:0044[facility]annCHEM GLMCA3883-08-98 15:02:07260Zhmvdxva HermannCHEM HNWXF9412-53-99 15:02:001.31[facility]annCHE[facility] VSTGB1712-83-21 15:02:88787Zrqnpvrf HermannCHEM QDRFE0159-17-65 15:02:0041[facility]annCHEM FWOAE5552-39-97 15:02:0038 [facility]annCHE[facility] KAAFJ2078-73-60 15:02:000.6[facility]annCHEM PANEL 2015-09-22 15:02:003.3[facility]annCHEM CTRWR1339-75-91 15:02:000.9[facility]annCHEM QYGZJ3698-63-75 15:02:008.7[facility]annCHEM FDZNT8004-80-94 15:02:0031[facility] HewaqjbSLTYGVOXAB5621-72-92 15:02:000.4[facility] XLHRAYHXHS7627-69-91 15:02:004.0[facility] HillldcZQQIYVIHST3117-95-77 15:02:000.3 [facility] BlxycywBMAVLSSZOD3647-12-95 15:02:000.2[facility]annHEMATOLOGY 2015-09-22 15:02:008.2[facility] RulztaeXYNKWDHDCZ7403-02-81 15:02:000.5[facility] FwryatnWCUNQYDVME7350-36-16 15:02:005.8[facility] HcjanwnBHHSEMRNVU0053-78-26 15:02:0089.7[facility] JlvhbtoKZQLZKUEBX6267-54-42 15:02:00* Test Item Value Reference Range Interpretation Comments PTT (test code = PTT) 32.2 s 22.9-35.8 [facility] BezhsxcMJROXXVRWV7145-13-75 15:02:00* Test Item Value Reference Range Interpretation Comments PT (test code = PT) 14.6 s 12.0-14.7 [facility] AswiomlBWKYQHLEKO2699-11-12 15:02:001.11[facility]annHEMATOLOGY 2015-09-22 15:02:93696Jnfpofrg DmfubcoXUYFPMEFVC5689-21-97 15:02:008.5[facility] NgoiaouMDHZKONUOZ0964-04-16 15:02:0032.8[facility] FeoakmbJKAXMXCRRO5258-04-14 15:02:0014.8[facility] BqwtodxPDYWOYNMHF7658-65-09 15:02:004.80[facility] JZWLJWDEAI9999-77-35 15:02:0014.4[facility] XnwxygrEUBVTJOJIB1192-62-94 15:02:00 9.1[facility] TnchrhwRXREJHTAZN7529-68-88 15:02:0091.7[facility]annHEMATOLOGY 2015-09-22 15:02:00* Test Item Value Reference Range Interpretation Comments MCH (test code = MCH) 30.0 pg 27.0-31.0 [facility] IkkumncUDFVAAXEUU7365-63-70 15:02:0044.0[facility] HermannCHEM PANEL 2015-05-02 19:38:0030[facility]annCHEM WWDXS4847-47-03 19:38:000.5[facility] HermannCHEM OAEKP3981-68-34 19:38:63399Dlyfyqzy HermannCHEM LBQCH2304-58-40 19:38:000.9[facility]annCHEM QNERA4995-81-81 19:38:0039[facility] HermannCHEM TLRTS3040-10-67 19:38:0039[facility]annCHEM YQEEZ6135-04-18 19:38:003.6 [facility]annCHEM LGVWV7635-40-14 19:38:003.4[facility] HermannCHEM PANEL 2015-05-02 19:38:007.0[facility] HermannCHEM UFEHT6856-72-33 19:38:0031[facility] HermannCHEM VASEZ9636-66-63 19:38:0011.9[facility] HermannCHEM XPRMC4097-17-34 19:38:0021[facility]annCHEM BRLVP4656-34-28 19:38:001.6[facility] HermannCHEM FZTLO8904-00-25 19:38:0049[facility]annCHEM DRVUA9779-27-31 19:38:0098 [facility]annCHEM MKIXJ8171-31-19 19:38:68922Etdwlozy HermannCHEM PANEL 2015-05-02 19:38:42473Tbfyuvdi HermannCHEM ZCTXM1488-56-98 19:38:009.2[facility] HermannCHEM DOXCC4059-42-93 19:38:005.9[facility] JnucugzPUIDUNOGJY8603-17-30 19:38:000.2[facility] HbagvujUDBKKPEOLU5405-92-82 19:38:000.1[facility] FEOVKPXIJQ0487-85-94 19:38:002.4[facility] ZblzscsJSFBHRKPTD4205-90-49 19:38:000.6 [facility] JxcvexyRDNCJNQGYM3653-48-74 19:38:0059.8[facility] HermannHEMATOLOGY 2015-05-02 19:38:0030.2[facility] DqgtoiyEYMZZVKYPW9036-75-98 19:38:007.1[facility] BgbrfztPNBWKHYRNQ2987-97-94 19:38:002.0[facility] QbgrgvpDMUGFPAUDS8272-72-04 19:38:000.9[facility] TplsoblZWUZGUISSC6598-68-95 19:38:004.8[facility] KAKOHHPSKJ7827-68-78 19:38:008.6[facility] FwdujdwHCZELFESWX2828-39-37 19:38:00 96.6[facility] KcprtohYABFGKCGUG9092-42-99 19:38:0013.4[facility] HermannHEMATOLOGY 2015-05-02 19:38:004.36[facility] ShcfgcwFFCTRRFHNZ0442-65-58 19:38:008.0[facility] FywbmplFVMRDSWNVL5275-22-17 19:38:0031.9[facility] YiaexbgAIXHJYAKLL0163-14-16 19:38:0015.3[facility] LxftycqFCSEAHZRBJ7227-01-21 19:38:0042.1[facility] [place] MAPSGDIEZP5934-51-17 19:38:27174Lavqorzf FxkshbiMEUXWTXORF8492-83-54 19:38:00* Test Item Value Reference Range Interpretation Comments MCH (test code = MCH) 30.8 pg 27.0-31.0 [facility] AjnivnjZTXICFPRFE6343-50-45 19:38:001.02[facility] HermannHEMATOLOGY 2015-05-02 19:38:00* Test Item Value Reference Range Interpretation Comments PTT (test code = PTT) 34.8 s 22.9-35.8 [facility] XvacvygISEDOIFEKD9865-90-49 19:38:00* Test Item Value Reference Range Interpretation Comments PT (test code = PT) 13.7 s 12.0-14.7 [facility] JratwraYPTPUXIKZRZV4607-95-18 10:20:0013.3[facility] HermannELECTROLYTES 2015-02-28 10:20:87293Szghazgm VmjopurSBMAZIEGLTRP7771-27-69 10:20:0032[facility] DwprethTVWHOOXVZUAR5039-61-19 10:20:001.2[facility] NnsmermVVZQRAJVZLPO5426-60-26 10:20:77933Mlyivrna PstwvdhKEJPHCGETRDS0898-91-45 10:20:004.3[facility] DMFFLIOWDTAU3590-06-44 10:20:0023[facility] VajvlfrXNOMEFLHKSFL7624-47-67 10:20:00 9.4[facility] SdjpzlzFBHALMCQBEFW4382-27-60 10:20:48927Rwcsogdp [place] TARPUVDKZQKD0232-43-98 10:20:0042[facility] MgeukmkEGPNMDCEEF5174-14-23 10:20:00 1.2[facility] ZrpclqvBZTTXIZXBK9217-11-31 10:20:000.6[facility] HermannHEMATOLOGY 2015-02-28 10:20:000.1[facility] PhgrbnnNNHJBXVCUZ0640-98-83 10:20:004.7[facility] PjpcwtnRPAOPKYIQC0219-86-81 10:20:0011.8[facility] RvegqmsJRPGKEAEPL1707-55-93 10:20:0086.7[facility] PkfibcdPSRKJELEFR9751-44-15 10:20:008.5[facility] YCUUJAZALZ2498-27-92 10:20:0033.0[facility] KixjmvfXWVUHBERVA2073-43-36 10:20:00* Test Item Value Reference Range Interpretation Comments MCH (test code = MCH) 31.0 pg 27.0-31.0 [facility] InrufioNJBTUFCBRC7568-63-76 10:20:008.3[facility] HermannHEMATOLOGY 2015-02-28 10:20:23346Pupfpfgb JdiwbelNYSZUFGNZU8296-52-68 10:20:0014.3[facility] OhxhytsLAFCJFXEGV3588-25-34 10:20:0039.5[facility] TugbiraYBYSKYQVLG6060-28-33 10:20:0013.0[facility] UtgvvwrAEXXKLPZYL4970-15-68 10:20:004.19[facility] VZHKXGZQTM9649-44-36 10:20:0094.2[facility] RuwqobjONWMXLVWRG3325-87-21 10:20:00 13.6[facility] HermannCARDIAC LSJFNRI9263-54-87 00:00:53000Ipkdaosl HermannCARDIAC QQSPETU6930-61-62 00:00:00<0.02[facility] HermannCARDIAC FNOZZDU0488-15-79 00:00:001.7[facility] HermannCARDIAC LVCNWHN8023-91-56 00:00:001.3[facility] CARDIAC QBQSXJZ2657-62-21 17:43:65707Uzuuqopl HermannCARDIAC NGTNVLC3233-27-89 17:43:001.6[facility] HermannCARDIAC ODXNUUP1552-03-49 17:43:00<0.02[facility] HermannCARDIAC HEMMMMO8217-29-42 17:43:001.1[facility] HermannCARDIAC ENZYMES 2015-02-27 12:23:00<0.02[facility] HermannCARDIAC DJZXVYA7241-24-35 12:23:0096 [facility]annCARDIAC AXCRDVV6157-32-47 12:23:001.5[facility] HermannCARDIAC KHLOQDZ2216-75-70 12:23:001.6[facility] HermannCARDIAC XURGLQO4365-38-01 07:01:00 46[facility] HermannCHEM VYURL2016-32-70 07:01:009.0[facility] HermannCHEM PANEL 2015-02-27 07:01:48525[place]oqqutan HermannCHEM YNGFA0336-26-33 07:01:20531Uoomdxkv HermannCHEM SSCHZ5248-17-19 07:01:004.1[facility] HermannCHEM SQIOI7964-09-29 07:01:0039[facility] HermannCHEM AHFDV2222-08-49 07:01:001.3[facility] HermannCHEM DLGBW3959-69-31 07:01:0022[facility] HermannCHEM FRNJS9622-86-05 07:01:33814 [facility]annCHEM PPEKU6334-28-97 07:01:0034[facility] HermannCHEM PANEL 2015-02-27 07:01:001.0[facility] HermannCHEM NDUXY3886-86-88 07:01:000.3[facility] HermannCHEM AUJUB0744-64-23 07:01:0014.1[facility] HermannCHEM SHALL0382-19-51 07:01:0026[facility] HermannCHEM MGQHH2058-63-04 07:01:003.6[facility] HermannCHEM HRINL2783-34-93 07:01:0037[facility] HermannCHEM GDIGH8488-30-05 07:01:76555 [facility]annCHEM PYWZO2943-78-11 07:01:007.2[facility] HermannCHEM PANEL 2015-02-27 07:01:003.6[facility] HermannCHEM GYTEB7748-18-02 07:01:0038[facility] PthjpnqQLFDLRZTCR0248-01-41 07:01:000.2[facility] NvtwbouYITJCSVTTK0185-94-46 07:01:000.1[facility] IupfsjdSIFVGHRAVD7231-72-27 07:01:006.3[facility] VEJJHVYRGX2362-38-42 07:01:000.9[facility] YdjsvrkRTOVPXRTYK4567-21-12 07:01:000.8 [facility] DpthsapPTPNQWUZRM5722-07-38 07:01:002.3[facility] HermannHEMATOLOGY 2015-02-27 07:01:0023.8[facility] RujmblwOWYFICLNAA3704-30-54 07:01:007.9[facility] WaggewdTCXWABXORQ1911-51-96 07:01:002.1[facility] RqeiiibTDOETEABZN0614-68-91 07:01:0065.3[facility] GqjjckmKAJTZAGHKH7216-52-23 07:01:009.6[facility] CXPIRPXWJQ2516-67-88 07:01:004.68[facility] IpbrhgzEEDOLUMZBH2795-31-30 07:01:00 8.2[facility] BipizewLLUHJFWARV4970-87-10 07:01:92277Lmilceoe HermannHEMATOLOGY 2015-02-27 07:01:0093.8[facility] FqqkildDADMMFAKDH0917-25-31 07:01:0014.7[facility] XkoejuoKNURQZKKKX6763-09-15 07:01:0043.9[facility] EjgxthtQOFRQSYUOB4674-32-36 07:01:0033.5[facility] MgywpthGRNMOGEWUG3315-59-71 07:01:0014.2[facility] JBTKUTITEY4200-85-21 07:01:00* Test Item Value Reference Range Interpretation Comments MCH (test code = MCH) 31.4 pg 27.0-31.0 [facility] AzptepfESOXOPDDNU4012-44-75 07:01:00* Test Item Value Reference Range Interpretation Comments PTT (test code = PTT) 38.0 s 22.9-35.8 [facility] YwppqchKSBXYLIQEZ2345-96-88 07:01:000.94[facility] HermannHEMATOLOGY 2015-02-27 07:01:00* Test Item Value Reference Range Interpretation Comments PT (test code = PT) 12.5 s 12.0-14.7 [facility] HermannCARDIAC LFZTFGU8422-15-80 16:22:000.8[facility] HermannCARDIAC GUWAWKX2856-60-94 16:22:52753Sczmuhuk HermannCARDIAC RQKQIJT7784-22-01 16:22:00 0.9[facility] HermannCARDIAC NUPCAOC4675-06-03 16:22:00<0.02[facility] [place] CARDIAC GEIWBHA8741-50-43 16:22:0061[facility] KwwkfygCBMHXOVYUMZT8012-68-90 16:22:38565Wtizrise HdzbxakOEHMSZGDIAGA0868-29-91 16:22:93839Tgqscpbv [place] CMJGJFTAXZGD7027-56-66 16:22:004.6[facility] EwoegcyZNDGVTHJAMNI5000-52-70 16:22:004.1[facility] FiepwmgEYMOCSDOWRBG0734-11-21 16:22:000.8[facility] LXKOJHFSZCMJ8245-79-55 16:22:0047[facility] VhziyekCHQLAYZVJWVL3341-35-60 16:22:00 8.7[facility] CrrlnfmBFYZTVENUYWK3752-27-59 16:22:007.4[facility] JLWMZMOVBQYU2949-49-59 16:22:0044[facility] FqvihieTMANQPOLQIST4181-97-32 16:22:00 3.3[facility] GfrlgojMAKVDOVXAJOK6151-88-45 16:22:0031[facility] HermannELECTROLYTES 2014-10-10 16:22:001.1[facility] XlaukivJXFFXOLNXVBM9016-55-38 16:22:0017[facility] GgvliyfHFGMEPWXSBKC8448-97-68 16:22:0025[facility] YwyqehsMVERAIMWNUBK4738-57-76 16:22:38089Gpjjyxin GzlfpnbTVFJDYBMCZUC4341-56-50 16:22:98767Tugllbov [facility] PQQZGJQBZEAG3509-94-15 16:22:000.6[facility] WfuvaqxLVCHYYOQMKBJ0383-84-12 16:22:0011.6[facility] EkatqewPJQOUZYETVML3506-49-04 16:22:0015[facility] [place] EXQNGOWTBU6865-21-84 16:22:000.1[facility] RuyongdOGWGCYXYBH1773-21-48 16:22:000.2 [facility] TschhkoDLMMHQRTBF6192-00-44 16:22:000.5[facility] HermannHEMATOLOGY 2014-10-10 16:22:004.5[facility] NfylgulSJJYQTJYMN1622-04-48 16:22:002.2[facility] InnoeroCIWRWXDCMW0469-75-56 16:22:000.9[facility] LimnxgiKSZTQDPRNH6022-76-96 16:22:006.4[facility] HpmsjkfRLNWMEDMTY8452-68-11 16:22:002.0[facility] WAIROKBZGD5703-71-57 16:22:0061.1[facility] QstqjcwUGKKWPSTLS1666-32-19 16:22:00 29.6[facility] ShtoqdoYOCHKSFEMU2869-08-77 16:22:00* Test Item Value Reference Range Interpretation Comments PT (test code = PT) 12.7 s 12.0-14.7 [facility] JgellphPICOLBAWIX8896-73-40 16:22:00* Test Item Value Reference Range Interpretation Comments PTT (test code = PTT) 36.4 s 22.9-35.8 [facility] VcjjocyUFJEFYMJOY0040-70-49 16:22:000.95[facility] HermannHEMATOLOGY 2014-10-10 16:22:00* Test Item Value Reference Range Interpretation Comments MCH (test code = MCH) 30.9 pg 27.0-31.0 [facility] JfiqhbiZMLYMNIJSB4984-74-74 16:22:0032.7[facility] HermannHEMATOLOGY 2014-10-10 16:22:0014.1[facility] EbmgzvkXDJNNDESCJ5213-86-06 16:22:37712Geeuujtf MufrrseCWIJCVPIXL3432-52-97 16:22:008.4[facility] DauzjgsMEPXWQKPHO1836-75-71 16:22:0014.5[facility] DdrdyigEFCCKMRQSS4867-85-60 16:22:0044.4[facility] YOMCMCYINF2525-91-02 16:22:007.4[facility] PdkedrxKUGDVEPEYJ1667-98-52 16:22:00 4.70[facility] EpareciYRSUYQRTLZ0869-73-13 16:22:0094.4[facility] HermannCARDIAC IIMCCJM5409-64-79 18:13:001.3[facility] HermannCARDIAC NGVIRYJ6140-29-22 18:13:00< 0.02[facility] HermannCARDIAC AWHLQHN1403-29-58 18:13:001.4[facility] HermannCARDIAC WPHNUTE8155-04-84 18:13:20768Jxznpbbx HermannCHEM RIMPY8800-57-65 18:13:0048 [facility] HermannCHEM BYWHT1050-58-34 18:13:67512Kralkvvw HermannCHEM PANEL 2014-05-16 18:13:57106Hdcddlgt HermannCHEM ICBYC3790-12-24 18:13:56623Zqvxtjpk HermannCHEM DIPZI1560-09-50 18:13:004.3[facility] HermannCHEM PCQSL8459-89-72 18:13:001.1[facility] HermannCHEM SDLZT9313-83-20 18:13:0030[facility] HermannCHEM CUDSJ5049-97-50 18:13:003.5[facility] HermannCHEM QGJVE1114-08-38 18:13:009.0 [facility]annCHEM XSLKX8939-78-32 18:13:0024[facility] HermannCHEM PANEL 2014-05-16 18:13:0027[facility] HermannCHEM EJBOU9835-21-31 18:13:0013.3[facility] HermannCHEM HVFTR4296-04-18 18:13:003.7[facility] HermannCHEM MKUVY7317-70-83 18:13:000.9[facility] HermannCHEM DVLBF0784-78-33 18:13:0048[facility] HermannCHEM TMTYF9922-09-45 18:13:007.2[facility] HermannCHEM OZAXU4460-78-43 18:13:44853 [facility] HermannCHEM VLLDB7677-21-39 18:13:0036[facility] HermannCHEM PANEL 2014-05-16 18:13:000.5[facility] DufhcndHIXRTRCPQL7284-01-61 18:13:009.8[facility] CnsgsqiROQDCKZQYU6159-04-62 18:13:002.5[facility] LnhyqblSHDIHBOWQM2437-43-96 18:13:000.2[facility] NizbdjxHKIWERKULC8889-17-78 18:13:000.1[facility] MFGFKAAQMH0430-61-00 18:13:000.8[facility] ZhgkomaZCGBLUKCDF3866-35-29 18:13:006.1 [facility] GaxmmqsNQSFNEXHRT5526-19-66 18:13:001.1[facility] HermannHEMATOLOGY 2014-05-16 18:13:000.8[facility] EijjiumLABEJQPQWD5822-32-30 18:13:0073.3[facility] SnyrxgwSJBPCHTHLE7084-21-01 18:13:0018.7[facility] YrgqqkxIGEGHCSYAT3448-27-99 18:13:000.46[facility] WtdbjacLPCNAEISAM0530-56-72 18:13:00* Test Item Value Reference Range Interpretation Comments PTT (test code = PTT) 35.5 s 22.9-35.8 [facility] VwsqqupNJRHTHZCFZ7464-22-35 18:13:00* Test Item Value Reference Range Interpretation Comments PT (test code = PT) 12.8 s 12.0-14.7 [facility] CfhkxqhLMYRREBZYG5864-08-34 18:13:000.96[facility] HermannHEMATOLOGY 2014-05-16 18:13:0014.1[facility] TdyasetSCRAZROSYY7245-99-20 18:13:008.1[facility] TzyjraqHARTGUYTPI5081-99-73 18:13:86830Hwachueg GzvvcxyHZVMAPTLOL1222-01-68 18:13:0094.2[facility] SyopygtXKOTYTIDAX7541-05-54 18:13:00* Test Item Value Reference Range Interpretation Comments MCH (test code = MCH) 30.6 pg 27.0-31.0 [facility] YhachhqRVDQOQIFQU3915-63-12 18:13:0032.4[facility] HermannHEMATOLOGY 2014-05-16 18:13:004.68[facility] XauvecbBPQOXWLUDS8429-46-00 18:13:0044.1[facility] FsxkhwjFCZXCQEOYK6119-68-95 18:13:0014.3[facility] VxithleNDZPTPLVRF6797-09-58 18:13:0013.4[facility] HermannBEDSIDE GLUCOSE IENVJRV1367-53-39 16:40:00>400 [facility] HermannBEDSIDE GLUCOSE SSFPHEN8921-56-26 16:38:00>400[facility] BEDSIDE GLUCOSE THEHNBH5411-26-91 12:13:70300Avabamcq CdqqlzkYCGQNIUSX3442-35-61 08:29:95356Oddvhuxo OyiyitsOEXIPDWZH9064-02-40 08:29:0015.1[facility] WXROCANAK5702-22-04 08:29:0025[facility] KhyongnGPIIFWOWM0571-87-21 08:29:0029 [facility] VvbmcltBLPNYIRBQ0700-37-82 08:29:46874Dqdhtklq HermannCHEMISTRY 2013-01-09 08:29:0033[facility] PnmfipeOUNWHXJVF8748-43-47 08:29:008.8[facility] UicfxjuJVFADWNDA4847-04-12 08:29:86942Vvlasrix GieheogXZARBIXUN9566-96-48 08:29:004.1[facility] GpjahskLBLGBOGWP0551-64-25 08:29:61723Tglpzxmx [place] DEFZKMIKO9685-80-08 08:29:001.5[facility] DvdcofdJKWLDSUUJA9968-96-89 08:29:008.7 [facility] LquwgwlMXVJRYHRUO1904-51-24 08:29:003.66[facility] HermannHEMATOLOGY 2013-01-09 08:29:0097.3[facility] BotcurlDKATXKZLLC1774-72-77 08:29:00* Test Item Value Reference Range Interpretation Comments MCH (test code = MCH) 34.5 pg 27.0-31.0 H [facility] XkmjygqNGWODEBNKF2428-16-22 08:29:0012.6[facility] HermannHEMATOLOGY 2013-01-09 08:29:0035.6[facility] SwqkjtdHMTXHXHACB5363-55-42 08:29:61816Plufmkhs BlqjgznKNUUKFEYWV5722-83-66 08:29:0014.0[facility] ItimkgzFOQUGKXIIJ2038-10-43 08:29:0035.5[facility] GtebrhaPMLOISHEMN9676-06-61 08:29:0011.1[facility] PYEAFXBTTK6864-01-70 08:29:000.9[facility] RsfoostCEGBIJMNIC7373-04-95 08:29:000.0 [facility] KdtkrfqUPUPRQPSDT3880-57-10 08:29:000.0[facility] HermannHEMATOLOGY 2013-01-09 08:29:000.0[facility] YgjgqgpWIYKQWCUFW9362-62-32 08:29:0010.2[facility] VsgqqfmDJBURLUUCJ7895-04-03 08:29:007.9[facility] MagkuylLENSHPMGER9317-78-12 08:29:000.4[facility] TwvwvmiJFEGMIDKOT6555-30-57 08:29:000.0[facility] BQDLAJUSSF9693-08-64 08:29:000.0[facility] TstkpedXSBVPHVZDF5527-10-79 08:29:00 91.7[facility] VamrbsxXSMZSSBME5549-79-52 21:47:99224Kzwjhybo HermannCHEMISTRY 2013-01-08 07:07:001.2[facility] DfxxsiwOTPIWJLGP2588-16-55 03:30:00<1.1[facility] RaqjvmcPUKAKPBOJ0003-25-75 03:30:00<0.5[facility] UmkzvlbOFXNUVITE3012-64-74 03:30:27151Ywdfxfih HaedlwnYLVSICLCD9326-44-70 03:30:003.9[facility] TORBCMVBY6663-55-39 03:30:79605Ftncaqrx EohpqkcXTQVQMNUF8557-65-40 03:30:0061 [facility] KusuphqWRHBHUKLZ8769-70-59 03:30:000.9[facility] HermannCHEMISTRY 2013-01-08 03:30:0059[facility] MokakodZJZOVURUP7879-73-30 03:30:0013.9[facility] FoezricEMDHLYWTD5315-19-64 03:30:003.5[facility] UyglumyTRUQTRASQ0826-95-20 03:30:0020[facility] EcauwuyAIWIZBUSF0020-00-46 03:30:000.4[facility] VTGHIWIGL2843-76-86 03:30:85792Ufjglgye IqpwkcvYRZODUMCY6276-30-10 03:30:003.2 [facility] IgkcbqaUCXEFKGGD0941-62-56 03:30:0057[facility] HermannCHEMISTRY 2013-01-08 03:30:006.7[facility] OmhrhysIAKAUVKMB2386-69-66 03:30:0028[facility] TfmyupqXCNCCCADY0333-32-12 03:30:0018[facility] MipunqiCHUKPGBCQ9789-51-60 03:30:009.0[facility] NnlredvVHOCOQPJG0811-11-97 03:30:000.9[facility] QNEJNUPKW4874-88-38 03:30:0044[facility] OvdgslsPETGPZEVB6477-85-22 03:30:00<0.02 [facility] UukdvfuWLULEYHTRJ7555-98-15 03:30:00* Test Item Value Reference Range Interpretation Comments PT (test code = PT) 12.9 s 12.0-14.7 N [facility] NugvuncWLBFYUVGQB9886-44-06 03:30:000.95[facility] HermannHEMATOLOGY 2013-01-08 03:30:000.56[facility] NfpozpmHJDCDPQAFA4199-43-33 03:30:00* Test Item Value Reference Range Interpretation Comments PTT (test code = PTT) 35.4 s 22.9-35.8 N [facility] RyjdcklIWUTNUQFO4760-11-56 01:26:0068[facility] HermannHEMATOLOGY 2013-01-08 01:26:000.5[facility] VllcxoeGSYXDQURSJ4511-30-28 01:26:002.3[facility] ZwggcdjMYYTAZXBIP2666-26-48 01:26:000.7[facility] UcxgagjAQUTCVEMDS4313-36-28 01:26:000.2[facility] DmzbpceWKDRTNDGLH6338-50-49 01:26:002.4[facility] LDQNKBNZDE6787-19-27 01:26:005.2[facility] WbbewseNLFOLLRCGM1770-15-20 01:26:000.1 [facility] SyyspytLXGMCWZBAM6849-88-46 01:26:0062.5[facility] HermannHEMATOLOGY 2013-01-08 01:26:0028.2[facility] PmztuhkDWJURAIBAW8299-10-66 01:26:006.2[facility] SepzspjDNGICIYUNV6449-37-85 01:26:008.8[facility] FwiolceVTYEOZVPOH2478-41-94 01:26:05379Xzrpdrly XcrossjMMDBKHTGWV8943-01-45 01:26:008.3[facility] KAVHBMMBAL7709-47-78 01:26:0033.7[facility] XunyarbNVDYVWZSIN7251-43-47 01:26:00* Test Item Value Reference Range Interpretation Comments MCH (test code = MCH) 31.6 pg 27.0-31.0 H [facility] JnwszfxHQRNLCUNWE7134-52-82 01:26:0014.9[facility] HermannHEMATOLOGY 2013-01-08 01:26:004.18[facility] LcyaurwVJVXZDENAE3401-86-85 01:26:0013.2[facility] JbhvssaTFBCQGLEKY7696-29-10 01:26:0093.9[facility] FofqpipOQBBSHNPIR8748-31-69 01:26:0039.3[facility] LlvjtqyQCWWLHBGL0942-94-07 01:25:0037.0[facility] [place] YFZZAHAIN2871-21-59 01:25:00Positive (01/07/2013 20:25:00) [facility] QFDTIXUBE6918-97-76 01:25:00Left Rad (01/07/2013 20:25:00) [facility] NNYRDLMWC3337-63-13 01:25:007.46[facility] KpmpauqGOBZBKLJG6572-72-76 01:25:0028 [facility] WqwqljqIEEWXJTRL8670-43-05 01:25:004[facility] XvuzvjoYKYGUGEJP4118-54-88 01:25:0040[facility] XlihmwzAGUXQSEDA5541-58-94 01:25:0081[facility] [place] XMARZNWDD1152-76-70 01:25:0096.5[facility] BwyspecXLFOCCHXVV3530-22-24 01:20:00<1 [facility] ZvkpknyENLDLJZORS9731-62-84 01:20:00Few /LPF *NA*(01/07/2013 20:20:00) [facility] HkixjoqEFSAOTBJVM0022-39-21 01:20:00Negative (01/07/2013 20:20:00) [facility] GixkzyhXITHWINIZL2836-36-80 01:20:00Negative (01/07/2013 20:20:00) [facility] LwvvjefTAGUZSCLPB4547-20-94 01:20:00<1[facility]ann[facility]YSIS 2013-01-08 01:20:00Negative mg/dL *NA*(01/07/2013 20:20:00) [facility] [place] VKLCFWCLTB9694-18-74 01:20:0050 mg/dL *ABN*(01/07/2013 20:20:00) [facility] VimqhmcXREUMBUYAQ5453-63-16 01:20:00Negative mg/dL (01/07/2013 20:20:00) [facility] PigjkbxKMQPNQWIRC1020-32-55 01:20:00Negative (01/07/2013 20:20:00) [facility] HvqbneeXHWDXRWXSI8273-85-45 01:20:00Negative *NA*(01/07/2013 20:20:00) [facility] TgyutpbBFLHLBVNIZ9351-51-07 01:20:00Clear (01/07/2013 20:20:00) [facility] BgptssaLBXWRYTZNF4940-72-89 01:20:006.0[facility]annURINALYSIS 2013-01-08 01:20:001.013[facility] HermannBEDSIDE GLUCOSE BILVMUE5425-33-63 19:19:00>400[facility] EjkpnpwVSLPUIEAE7802-54-35 17:49:37071Wigmklmw [place] BEDSIDE GLUCOSE ZAWQNTP9918-49-13 17:09:00>400[facility] HermannBEDSIDE GLUCOSE IXQAVFT0118-07-36 12:02:20885Fhiubqve IuusemoDRBYWGXNY2881-41-86 11:58:004.2 [facility] UdercpnICEAYNZDW1894-46-07 11:58:89232Ovmopdiq HermannCHEMISTRY 2012-09-03 11:58:46548Giibukjd DemfvupAHYZLGPUK2454-98-51 11:58:0048[facility] ZcuazwiUCGCVWMUL6745-31-21 11:58:009.1[facility] LytzajmILKVYERIY1308-31-20 11:58:0014.2[facility] EhtdpbzLIMADGCKT5899-94-68 11:58:0027[facility] KXILRMHTJ2294-61-89 11:58:0024[facility] AslqbwfHKVNBVEDL6171-03-24 11:58:64166 [facility] IrrpeysPEWBVCNZW4791-81-33 11:58:001.1[facility]annHEMATOLOGY 2012-09-03 11:58:007.7[facility] TnryuhrZTZOPRAXQD4929-33-89 11:58:000.2[facility] LomansdGBTNGVRYJE8996-24-33 11:58:001.2[facility] ZlgtxkmZIMZIOQYVH4875-48-04 11:58:000.0[facility] WzakktkBIQAVCKHCZ5533-94-83 11:58:000.0[facility] YWBMGCQAMI3429-12-76 11:58:000.1[facility] AexfttkCRUONYMCNS4806-50-74 11:58:001.2 [facility] UqnffjnXTTRVBUFKA0983-28-90 11:58:0012.9[facility]annHEMATOLOGY 2012-09-03 11:58:00Normal (09/03/2012 05:58:00) [facility]annHEMATOLOGY 2012-09-03 11:58:000.0[facility] GywnntePSGOEGUWWU1285-64-16 11:58:0085.7[facility] AzfjurpLZYAJFBLBE0457-58-58 11:58:00Normal (09/03/2012 05:58:00) [facility] HxqqwzhRCDBOCRZBI0105-94-78 11:58:008.1[facility] BzrbqipKYVHPMKRSP9838-13-58 11:58:25088Mtqspnjg GzuhnziRAMYTOFHCA2822-57-34 11:58:0013.9[facility] UMOPUREWCL9949-02-91 11:58:004.24[facility] EnhcayhXDWYBOJEXE9620-38-20 11:58:00 9.0[facility] AmjfckjGNSPUWVWNN1730-37-31 11:58:0033.7[facility] HermannHEMATOLOGY 2012-09-03 11:58:0093.2[facility] QsxfqalDDRSDSWVVL1224-17-05 11:58:00* Test Item Value Reference Range Interpretation Comments MCH (test code = MCH) 31.4 pg 27.0-31.0 H [facility] IcmfmkbQRYFRPQJTI2197-73-49 11:58:0013.3[facility] HermannHEMATOLOGY 2012-09-03 11:58:0039.5[facility] SsdxropWVXQXYADY6228-05-50 03:43:85427Haimthat ZkpbooqGRYKUXHBTF4058-44-64 22:53:00Occasional /HPF *NA*(09/02/2012 16:53:00) [facility] SxunkjaJACMGIAKRK8580-82-38 22:53:005.0[facility]annURINALYSIS 2012-09-02 22:53:00Negative mg/dL (09/02/2012 16:53:00) [facility] DTTMSYAWLR2730-55-27 22:53:00Clear (09/02/2012 16:53:00) [facility] PPCDEFWXKS0216-50-53 22:53:001.018[facility] AuehdcwWFHWVUXGLX1791-40-92 22:53:00 500 mg/dL *ABN*(09/02/2012 16:53:00) [facility] QhbvqyrEYOMFFCVGU2724-71-88 22:53:0020 mg/dL *ABN*(09/02/2012 16:53:00) [facility]annURINALYSIS 2012-09-02 22:53:00Negative *NA*(09/02/2012 16:53:00) [facility] [place] OIAABIYDMF8631-70-36 22:53:00Negative (09/02/2012 16:53:00) [facility] RXBPXWQFOQ5862-46-51 22:53:00Negative (09/02/2012 16:53:00) [facility] [place] WGAQOAJEEY3254-60-73 22:53:00Few /LPF *NA*(09/02/2012 16:53:00) [facility] WxajcxkPZAHSIZCFE1252-39-47 22:53:00Trace *ABN*(09/02/2012 16:53:00) [facility] RlostqkSSIKUSJSEA2570-16-71 22:53:003[facility] TpsarmwWYDTERGHEE9548-90-10 22:53:0014[facility] BtdratpPDYHWWOAZ6019-61-24 19:51:001.2[facility] IHIVMWMXZ4319-46-05 18:24:00<0.02[facility] WdegkgjURQLFIEKL5587-86-85 18:24:000.9 [facility] JsytqvfSGCCALLAV1527-22-84 18:24:0076[facility]annCHEMISTRY 2012-09-02 18:24:001.2[facility] JmwwvvmCXCDENYBO4151-02-64 18:24:0064[facility] PklutpnZGXWEQBIW1894-19-16 18:24:57680Pwuzstxm KisuyslQZOZVJDUJ9570-28-60 18:24:0043[facility] GryrwjqBCRCYPRMQ0679-04-13 18:24:0040[facility] ZXIJEPHJE0069-45-15 18:24:000.7[facility] LdyafadBXLYCYJKL3706-98-88 18:24:000.8 [facility] TrbykunNVOCNXYXA1408-46-23 18:24:004.4[facility] HermannCHEMISTRY 2012-09-02 18:24:0020[facility] HhxcrjbRFQGLRXJM0402-05-64 18:24:007.9[facility] JpdkyqbUPTAWKXBF8591-82-69 18:24:0020[facility] KhwkmedGSOIRKIQG5096-82-38 18:24:0054[facility] LlafwgfAZECNAWEV7271-36-83 18:24:009.6[facility] CMDIZILJZ5719-02-01 18:24:003.5[facility] JswepdzPWAZMOBXT4650-43-36 18:24:0014.9 [facility] QvlyaibXWCHGZDVI2563-84-76 18:24:98817Xddqmira HermannCHEMISTRY 2012-09-02 18:24:003.9[facility] UqjmdijEJLEWMUGH8678-68-44 18:24:0027[facility] HtofcbqMHUBQCANX3720-13-18 18:24:001.0[facility] AkyaqmsIPZLWCIEF6906-03-00 18:24:94525Lzieqwfw HiiatxjPJQLQRXTH6911-25-01 18:24:001.7[facility] [place] QDPOXTRYD1285-03-97 18:24:003.3[facility] YkxltjrJHLCZLSZHB4542-15-67 18:24:000.91 [facility] HlfciymHYYFVRULVD1025-00-53 18:24:00* Test Item Value Reference Range Interpretation Comments PTT (test code = PTT) 37.0 s 22.9-35.8 H [facility] AgirpauDONHNWZQSK3036-03-64 18:24:00* Test Item Value Reference Range Interpretation Comments PT (test code = PT) 12.5 s 12.0-14.7 N [facility] BadpicqOVWGPEAKLQ9517-07-80 18:24:0020.7[facility]annHEMATOLOGY 2012-09-02 18:24:0071.9[facility] WpbgbztWNJUDFUIWQ1972-41-26 18:24:000.3[facility] LeaemvsFHSEXHKBYC7919-95-15 18:24:006.7[facility] WubybhbJAFKFIPZLE7916-88-48 18:24:005.3[facility] UkhloskYNQPNVHXLL9093-38-61 18:24:001.8[facility] BUWZNXNPDJ7318-93-15 18:24:000.2[facility] WtsufgqTIAQUGLDPL8987-41-00 18:24:000.0 [facility] NqpzfwlVHPPWZSHWJ3501-74-53 18:24:001.9[facility] HermannHEMATOLOGY 2012-09-02 18:24:000.5[facility] KvloewtJFISUUUMVY3701-52-47 18:24:00* Test Item Value Reference Range Interpretation Comments MCH (test code = MCH) 31.6 pg 27.0-31.0 H [facility] RukvnftQNTBIAERSH7562-54-92 18:24:0093.0[facility] HermannHEMATOLOGY 2012-09-02 18:24:0014.0[facility] JeuhgkjTFFKJWTCRB8851-52-33 18:24:0034.0[facility] QmemsvbIXANUSUSWN1794-13-46 18:24:28429Xkbtehsp GvcqwvdMXUHMAELPK9756-71-10 18:24:008.9[facility] TsuhbonQUVMTWBYRL0935-12-38 18:24:0044.9[facility] [place] YTFSONHJYF5744-44-51 18:24:009.4[facility] YshxkeoSOHVYYSLGH2880-48-84 18:24:00 15.3[facility] ObmhsykMNPWPXTLQR1760-98-38 18:24:004.83[facility] HermannBEDSIDE GLUCOSE SRFIZKJ7653-24-42 12:12:29324Mhsnonht TcfxpciZYAJABJQT6359-71-64 09:52:82110Vrzdhitc LeclekrXFUUQSZQQ2014-96-94 09:52:008.1[facility] UYOTCOPUD3360-27-79 09:52:0028[facility] SsmbtjiRDTBADXFK3947-90-55 09:52:27653 [facility] WvwaimtPZPFPWXCQ9741-35-54 09:52:004.0[facility] HermannCHEMISTRY 2012-06-26 09:52:002.4[facility] OkycgdsBQQHWGRDS0405-98-85 09:52:0048[facility] YdfkvltTMUULNJEC2346-55-95 09:52:55893Cbuanbft SnhwvpeIFCENKXNI2476-22-46 09:52:0015[facility] HebloesDTUVUQPAJ7764-84-02 09:52:001.1[facility] KZOIJTKSQ2754-54-91 09:52:0014[facility] GuakygrKZDQSKYTR0201-65-11 09:52:002.9 [facility] PgjqvxvYREOOHFVW5964-07-51 09:52:005.3[facility] HermannCHEMISTRY 2012-06-26 09:52:000.7[facility] KuhupghSVLKZGXCU8121-24-27 09:52:58616Bvcctkdo UhrvpesKFTQDJNVT5183-40-08 09:52:0049[facility] NvksgscACXBPSAMX6669-79-02 09:52:000.8[facility] EsedswnSUHXBDXBU1619-24-25 09:52:0053[facility] GMZUWQXAY4585-55-72 09:52:0014.0[facility] GkpachvRXENESSIWZ8827-43-24 09:52:000.2 [facility] HrhsbzuSDSUAHOYDO9167-89-82 09:52:000.0[facility] HermannHEMATOLOGY 2012-06-26 09:52:003.8[facility] AtvwsqzFACBENGQWN2071-07-14 09:52:000.7[facility] JflfvxoVCLWNUSNUO5189-07-67 09:52:001.6[facility] QfuylrmMEJSTFROXP5184-97-67 09:52:000.3[facility] YgjrsogYNJFJKIRYC6777-15-86 09:52:002.6[facility] LPOQACFHRW6071-64-42 09:52:0010.5[facility] ZqwmzgcTNWBCMLCRC8183-07-60 09:52:00 60.7[facility] AabjsodIPBICZRNET6015-76-50 09:52:0025.9[facility] HermannHEMATOLOGY 2012-06-26 09:52:009.0[facility] LrwafuvOXVOSVHPFH0314-94-27 09:52:08149Ibcqjwtz ForsbdqSHINSNITDC3640-39-24 09:52:0036.1[facility] QqupyxkXGHPQZGZYL3217-60-63 09:52:00* Test Item Value Reference Range Interpretation Comments MCH (test code = MCH) 31.8 pg 27.0-31.0 H [facility] DglaejfRQJVLTEREZ7038-35-48 09:52:0034.1[facility] HermannHEMATOLOGY 2012-06-26 09:52:0013.9[facility] CdkqfywYRLEJKXEJH8369-74-65 09:52:0093.0[facility] WqtxrudOOYVNTELHV1998-79-79 09:52:006.3[facility] KyjtkvzGIUCFRLNTG6896-51-96 09:52:003.88[facility] SatbvssBERCRYOLRB4942-12-09 09:52:0012.3[facility] BEDSIDE GLUCOSE MRJAPPY5749-01-06 03:00:71123Czfbemgk HermannBEDSIDE GLUCOSE ZGDUTHR1785-26-99 21:22:28795Mpvvbfbe CbxmnlwRQBROBYHV0153-60-32 13:12:0055 [facility] DmvwkigWJDSBUPLA5404-76-90 13:12:0011[facility]annCHEMISTRY 2012-06-25 13:12:68103Ejftsyau RmfphdjZVSWCHDRM3261-20-22 13:12:009.27[facility] PefodqcAIMKDOVQV9163-28-58 13:12:19835Tivthpks ZrbgksqEDLUXROSV2455-15-24 13:12:0012.7[facility] JpififaOCGLBKMHG3582-88-69 13:12:003.5[facility] BJJLEIXBC7168-28-21 13:12:0015[facility] CtrmsjvOLTMEOEOC6787-84-61 13:12:000.6 [facility] AsknwtoITOWRBZHZ0369-15-84 13:12:0048[facility]annCHEMISTRY 2012-06-25 13:12:002.2[facility] XvztspoTQVVDMBJD4484-99-92 13:12:008.2[facility] SzxecoaBKGHATXJF5462-94-59 13:12:0024[facility] LaskljuDGWWTMXKD6625-27-17 13:12:64387Qpbvywvk AolgxwlRWMSYDDBY5104-57-08 13:12:0082[facility] WJVQUTIED0241-33-17 13:12:003.7[facility] OgsaiveONZSEJNQT3186-83-54 13:12:001.1 [facility] OfcsakwTGRWPDFNY6005-78-48 13:12:35665Ksohjcng HermannCHEMISTRY 2012-06-25 13:12:000.4[facility] HqcuffgMOTLOHMSP6432-58-36 13:12:0053[facility] BqthcgqMDCQAIFRZ6911-28-24 13:12:005.7[facility] MdiqcvbRJDBHEPNB4579-42-36 13:12:0017[facility] MfusjmvWQCITQVZR5582-64-99 13:12:0048[facility] TAHWOAWKK3433-32-92 13:12:75747Isypwsdb XwnzjggRLGLKSFLT2609-03-30 13:12:001.7 [facility] YiurfhgDZZXMQIELP0699-12-21 13:12:0017.6[facility] HermannHEMATOLOGY 2012-06-25 13:12:001.0[facility] HnqqknqVFZOMMSVQM1015-68-88 13:12:004.5[facility] GkmgseuNOYGYBXAYN4867-85-53 13:12:000.5[facility] PvacvzdWIRRKRKMZD1013-74-47 13:12:0010.0[facility] GtlunuqDTAPRRFFRJ2698-81-26 13:12:000.6[facility] BFRPGIRUWY1668-59-02 13:12:000.1[facility] BfnxrtbBZRKOECRVE6992-41-80 13:12:001.1 [facility] LyecpdxAOBUSOLZDW2575-40-12 13:12:000.0[facility] HermannHEMATOLOGY 2012-06-25 13:12:0070.9[facility] MmehdskYRPQJSVHPB1086-15-73 13:12:009.1[facility] ZpjjcwjTNUKYSKCUE5787-17-37 13:12:0014.0[facility] RbqgaxlKYWBLIGVUS0065-93-85 13:12:37892Bdsjasyv CsogusyAHHRPHRBPS5376-01-63 13:12:0034.2[facility] ITPCVQNYJX5048-85-82 13:12:00* Test Item Value Reference Range Interpretation Comments MCH (test code = MCH) 31.9 pg 27.0-31.0 H [facility] BxbqsvrHXLTTMFKSM5909-76-87 13:12:0011.6[facility] HermannHEMATOLOGY 2012-06-25 13:12:0034.0[facility] UtfgiiiPKOTGPUHXH0449-35-66 13:12:006.4[facility] PgzwszuNIVSBZWKDF7884-93-65 13:12:003.65[facility] JxnmqbtDNDFAOYIRE4238-68-83 13:12:0093.1[facility] YpbqoghBAGFJJLYLL1158-26-41 13:12:000.03[facility] RCOSALJDHJ9125-84-28 13:12:00Negative (06/25/2012 07:12:00) [facility] VJFJHTTVHS2202-66-87 13:12:00Reactive *ABN*(06/25/2012 07:12:00) [facility] StkzzqnNFYUWVIGGO8792-11-53 13:12:00Negative *NA*(06/25/2012 07:12:00) [facility] SphfnhjAGTYPYWCXO8409-94-08 13:12:00Negative *NA*(06/25/2012 07:12:00) [facility] PsboolyVBDQYMUDHG3687-18-83 13:12:00Negative *NA*(06/25/2012 07:12:00) [facility] OdabjokESRZSYWROD8429-88-63 13:12:00Negative *NA*(06/25/2012 07:12:00) [facility] YhaopdyWUOKEARXF1366-01-89 17:32:00<0.02[facility] HermannCHEMISTRY 2012-06-24 17:32:0065[facility] IinmrcxSKPITMMIG0665-68-70 10:34:00<0.02[facility] AkelmkeUFOHRVIMN7435-41-71 10:34:0060[facility] HgxfvfaYCWXDNHXL2321-22-24 10:34:001.7[facility] SacuychXJPJPZBRQ1612-86-25 10:34:0075[facility] DDGHLEQNW9030-15-33 10:34:000.8[facility] NbhlbxwGGWFWOPTY2982-58-10 10:34:0063 [facility] JzqyvxnPWJUJLWDD8562-96-01 10:34:005.5[facility] HermannCHEMISTRY 2012-06-24 10:34:45898Ccshaddx UyfityjEGKSSDTGC9296-34-34 10:34:008.0[facility] OmastffQOALGWYGV0946-85-92 10:34:002.7[facility] EudvytyXYMQUJHOM5497-34-50 10:34:0025[facility] DlcemxrBMUXNEKRZ9198-47-19 10:34:88709Iosumlcu [place] VBCTIXLYO1709-90-54 10:34:35521Ejbwjfck OzeemjpCTEZAXWHS5490-64-17 10:34:004.2 [facility] WocxqzuWRWEZTMAN7330-78-41 10:34:001.5[facility] HermannCHEMISTRY 2012-06-24 10:34:50857Vvbvzqzi WnjlgeuGCCHXVHKB3867-56-59 10:34:0028[facility] TdkrewsQFROQSTOU3281-41-38 10:34:0033[facility] HwjmvtdXNTGNUXPC3494-54-82 10:34:002.8[facility] UgteappGRCSSHBIS0728-63-81 10:34:001.0[facility] FSCFIWXBA6355-05-37 10:34:0013.2[facility] RyifvhjYZWQYWGFY5661-91-75 10:34:0019 [facility] HivbfjgBELYSVFKP7084-99-23 10:34:002.1[facility] HermannHEMATOLOGY 2012-06-24 10:34:008.9[facility] JxvybtyLFVHDEWQTO1396-56-11 10:34:0083.1[facility] WvebnmtVZRVDODGAK0721-06-63 10:34:000.3[facility] KujweiuQEIWXJXVPJ2045-71-36 10:34:007.5[facility] WjmdiphGWJMMNSPPZ8566-06-40 10:34:006.5[facility] HIVDEYHFKF6010-98-71 10:34:000.6[facility] IxvebtfXBKZTQWZBN4155-05-88 10:34:000.7 [facility] XwvpojgSEQOZIBQAU5996-82-80 10:34:000.0[facility] HermannHEMATOLOGY 2012-06-24 10:34:000.0[facility] BwxmlmyIPZEBXJAEO4724-15-12 10:34:000.2[facility] QfmrqowZZCEEIEFOD4759-38-58 10:34:007.8[facility] AqlywaeMUQIQEOSYM7490-43-66 10:34:0033.0[facility] AnhbcgjFXLJKKAJRX9110-49-74 10:34:63144Yvuvzyvh [place] PTPQCKNQUB5419-03-90 10:34:0013.6[facility] TdzjsmkZCUBGDLERQ8123-42-62 10:34:00 94.6[facility] GjhvlzdBVGLDOVVGY3563-75-36 10:34:00* Test Item Value Reference Range Interpretation Comments MCH (test code = MCH) 31.2 pg 27.0-31.0 H [facility] DjtjdjgEGCFOFWEAP3253-87-27 10:34:003.85[facility] HermannHEMATOLOGY 2012-06-24 10:34:0012.0[facility] SpugsjlSPOGCSPGCB3082-48-45 10:34:0036.4[facility] PnpbauwLLSLZDVAST3088-52-94 10:34:008.9[facility] TuibvhsQXVIPXBBBM8432-61-02 23:36:00Few /LPF *NA*(06/23/2012 17:36:00) [facility] AafdrryTQTYIXYNCU1372-69-52 23:36:002.0[facility] CrvjecePRCLTKTWVH0511-15-74 23:36:00Negative mg/dL *NA*(06/23/2012 17:36:00) [facility] KnonucxDLLKBEQNNC1525-78-70 23:36:00Negative mg/dL (06/23/2012 17:36:00) [facility] XwtgfrqNAJHLRSQRZ7005-75-78 23:36:00Small *ABN*(06/23/2012 17:36:00) [facility] JenfwrnHUMGWRUDFC8156-40-96 23:36:47479 mg/dL *ABN*(06/23/2012 17:36:00) [facility] SabipqdKGXCZOQTDO5471-57-42 23:36:004 [facility] RjzqdhcIFBYGOIMMZ6741-77-12 23:36:00Negative (06/23/2012 17:36:00) [facility] ZayirmaLBTWWHGXCN0827-20-14 23:36:00Occasional /HPF *NA*(06/23/2012 17:36:00) [facility] WwvtntaYDWNXOWTQU4859-28-22 23:36:00Negative *NA*(06/23/2012 17:36:00) [facility] OcggijhVGAHKKZVTD4385-41-85 23:36:00Small *ABN*(06/23/2012 17:36:00) [facility] CjeengnRXOYFMGXAN4846-39-92 23:36:0020[facility] [facility] ZFIKGTSWFV1479-61-11 23:36:00Few /LPF *NA*(06/23/2012 17:36:00) [facility] HtbzilvBECSHIEQWA4739-03-20 23:36:005.0[facility] GpixqovXRVZRMZIZN6736-08-48 23:36:001.008[facility] ZdxzlpvRUYZUMPQUN9923-91-62 23:36:00Slight *ABN*(06/23/2012 17:36:00) [facility] BaavantSTIVLZBNPA1610-13-43 23:36:00Yellow *NA*(06/23/2012 17:36:00) [facility] RpxwqrcIMDDFSMRHV6022-43-19 16:30:00Marked *ABN*(06/22/2012 10:30:00) [facility] FdvzpsaEXNJOYWOLI0264-92-36 16:30:12629 mg/dL *ABN*(06/22/2012 10:30:00) [facility] QfphdwlDZUVOYFIRW5663-33-14 16:30:00 5.0[facility] ShpmzlpEIYDLUIFPU5755-37-08 16:30:001.012[facility] HermannURINALYSIS 2012-06-22 16:30:00Negative *NA*(06/22/2012 10:30:00) [facility] QHROEEVZSC0698-22-31 16:30:00Negative mg/dL *NA*(06/22/2012 10:30:00) [facility] EfqwrkfDWFZAGMQPY7830-64-67 16:30:0050 mg/dL *ABN*(06/22/2012 10:30:00) [facility] NrzrjegSNFZYQYEEP4372-04-32 16:30:00Positive *ABN*(06/22/2012 10:30:00) [facility] YedxghqVCXTUPSHRE6032-91-95 16:30:00Large *ABN*(06/22/2012 10:30:00) [facility] DvrerslEWQVEWLRYY2640-61-98 16:30:00Few /LPF *NA*(06/22/2012 10:30:00) [facility] HhfhqlrMJSJPYWITM8037-60-29 16:30:003[facility] HermannURINALYSIS 2012-06-22 16:30:00Few /HPF *NA*(06/22/2012 10:30:00) [facility] PDANHGQOST2174-23-03 16:30:0020[facility] OqvbvixRNUREXTBHB0983-36-07 16:30:00Many /LPF *ABN*(06/22/2012 10:30:00) [facility] CfdlvwqZAMCZVDQCF8816-13-71 16:30:00 Large *ABN*(06/22/2012 10:30:00) [facility] YqucddcUNIROCQKHG2424-42-89 16:30:00 69[facility] OxfwovuBBVHSDCVM9868-55-19 15:00:00<0.9[facility] HermannCHEMISTRY 2012-06-22 15:00:0053[facility] ZlfycbxTEJUAVNAP8102-17-49 15:00:00<0.5[facility] HrsenyoWEOMMDTMG7084-57-80 15:00:32217Pmqzhsnk AzszrcsTYOGUBOVN6262-90-50 15:00:0027[facility] PiwieuzIWTFFXEKD3852-70-04 15:00:0013.7[facility] CTEAEOGDN8448-37-71 15:00:0017[facility] OupcpnoEBPOUPSMQ6014-52-37 15:00:003.3 [facility] LhvjxqvUTFMFTOQZ5263-96-71 15:00:0023[facility] HermannCHEMISTRY 2012-06-22 15:00:0031[facility] BizsdsoYKJHAADGC9074-96-99 15:00:003.7[facility] BayezvgLPMEJAZNL3309-28-05 15:00:14921Qoaecqee FcjxxvcDHUUKGUFW1301-32-80 15:00:009.1[facility] EqnltqdEXVIMRNLH1720-98-85 15:00:18703Osprwujd [facility] QIHBXEHJY3158-96-40 15:00:001.6[facility] XwsboacIWCACQUJY6539-24-27 15:00:001.5 [facility] XzxzcrhMIPRYSVBU7113-43-15 15:00:63638Osltlfzx HermannCHEMISTRY 2012-06-22 15:00:0044[facility] DlondbkKPRVYQSSC7742-58-29 15:00:007.4[facility] PjkaakuBOIYMYNTS7061-55-95 15:00:000.8[facility] WenkzeiSEHDERUDB9069-64-06 15:00:004.1[facility] MmuiljwDJOXNGGJH5990-73-36 15:00:0039[facility] [facility] PFJAACUJM8313-26-89 15:00:97783Zxaywiew KqugcjuWMKUKKWMSI8315-22-50 15:00:0012.3 [facility] AvnqkksTTUMSMJCVQ1967-38-24 15:00:000.8[facility]annHEMATOLOGY 2012-06-22 15:00:000.1[facility] KdxtxryLPSJQRMUFL1502-91-05 15:00:000.6[facility] GdemkriQLCGNKCXDP5093-79-68 15:00:000.0[facility] QrfevpcYKZIPSOGYB1707-23-95 15:00:000.0[facility] CsujhgcCDJELTMYYT9037-49-00 15:00:00Normal (06/22/2012 09:00:00) [facility] AubjvnlOVKRBXBDLZ8952-29-17 15:00:0089.7[facility] LKWRZCDRBH9635-60-34 15:00:00Normal (06/22/2012 09:00:00) [facility] SJENPIHVHB5363-60-27 15:00:005.6[facility] OrqokduNGPWCOGZYV8252-99-91 15:00:004.5 [facility] LlzhaagUHXBMKEYXM4123-96-51 15:00:000.1[facility]annHEMATOLOGY 2012-06-22 15:00:0013.9[facility] SqxjbpkFKHWCKGHYM7072-11-84 15:00:0034.2[facility] WrvoqhhEJGDTJOADM4871-95-30 15:00:27391Jnybaxsl RiwkwvzSPJSCSLCTJ7049-06-29 15:00:009.0[facility] FnamisqSUQUBVNBVY7253-59-77 15:00:0013.8[facility] GEXIQPDNHE1562-40-02 15:00:0040.3[facility] WjyxaejWEGWSECQCN7179-42-11 15:00:00 93.7[facility] PjqugptSVOFIURPSO5351-71-23 15:00:00* Test Item Value Reference Range Interpretation Comments MCH (test code = MCH) 32.0 pg 27.0-31.0 H [facility] IhaeharDBFVMXWOKL1821-21-30 15:00:004.30[facility]annHEMATOLOGY 2012-06-22 15:00:0013.8[facility]
[2020-05-10] MEDS ORDERED: NIFEDIPINE CR 30 MG TAB PO PRN (09:30)
--- OUTSIDE RECORDS SUMMARY | 2020-05-10 09:32 | XMS REPORT | Continuity of Care Document ---
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 Role Phone [employer] Information Exchange Unavailable Un available Problems Problem Status Onset Date Classification Date Reported Comments Source LABS Active 04/16/2016 [facility] UROSEPSIS, CHRONIC KIDNEY DISEASE Active 04/07/2016 [facility] FEVER Active 04/07/2016 [facility] Discharge Diagnosis: Hyperkalemia 04/06/2016 04/09/2016 [facility] ABN LABS Active 04/06/2016 [facility] Discharge Diagnosis: Acute UTI 10/01/2015 10/04/2015 [facility] Discharge Diagnosis: Generalized weakness 10/01/2015 10/04/2015 [facility] WEAKNESS Active 10/01/2015 [facility] BLOOD IN URINE Active 09/22/2015 [facility] EYE REDNESS/EYE PAIN Active 05/02/2015 [facility] AECOPD, BRONCHITIS Active 02/26/2015 [facility] S.O.B Active 02/26/2015 [facility] Discharge Diagnosis: Acute bronchitis 10/10/2014 10/12/2014 [facility] CONGESTION Active 10/10/2014 [facility] Discharge Diagnosis: Cellulitis 08/22/2014 08/24/2014 [facility] LEG SWELLING Active 08/22/2014 [facility] Discharge Diagnosis: Acute Bronchitis 05/16/2014 05/19/2014 [facility] CONGESTED Active 05/16/2014 [facility] Upper respiratory infection (disorder) Resolved 01/19/2013 Problem 05/07/2020 Data migrated from [employer] on 02/04/15. [facility] [place], [facility] [place], [facility] [place] PNEUMONIA,DYSPNEA Active 01/07/2013 [facility] SHORTNESS OF BREATH Active 09/02/2012 [facility] REACTIVE AIRWAY, WHEEZING, PNEUMONIA Active 09/02/2012 [facility] FEVER,UTI Active 06/23/2012 [facility] RE-VISIT Active 06/23/2012 [facility] SICK Active 06/22/2012 [facility] Urinary tract infectious disease (disorder) Resolved 04/17/2012 Problem 05/07/2020 Data migrated from [employer] on 02/04/15. [facility] [place], [facility] [place], [facility] [place] Vitamin D deficiency (disorder) Active 04/16/2011 Problem 05/07/2020 Data migrated from [employer] on . [facility] [place], [facility] [place], [facility] [place] Disorder associated with type II diabete s melliltus (disorder) Resolved 08/03/2010 Problem 05/07/2020 Data migrated from [employer] on 12/20/14. [facility] [place], [facility] [place], [facility] [place] Hyperlipidemia (disorder) Acti ve 08/03/2010 Problem 05/07/2020 Data migrated from [employer] on . [facility], [facility] [place], [facility] [place], [facility] [place] Obesity (disorder) Active 08/03/2010 Problem 05/07/2020 Data migrated from [employer] on . [facility], [facility] [place], [facility] [place], [facility] [place] Osteoporosis (disorder) Active 08/03/2010 Problem 05/07/2020 Data migrated from [employer] on . [facility] [place], [facility] [place], [facility] [place] Arthritis (disorder) Resolved Problem 05/07/2020 [facility], [facility] [place], [facility] [place], [facility] [place] Varicella (disorder) Resolved Problem 05/07/2020 [facility], [facility] [place], [facility] [place], [facility] [place] Chronic obstructive lung disease (disorder) Resolved Problem 05/07/2020 [facility] [place], [facility] [place], [facility] [place] Decreased vitamin D (finding) Active Problem [facility], OP[facility]uis Enrique [place], [facility] [place], [facility] [place] Diabetes mellitus (disorder) R esolved Problem [facility], [facility] [place], [facility] [place], [facility] [place] History of urinary tract infection (situation) Active Problem 05/07/2020 [facility] Hypernatremia (disorder) Active Problem 05/07/2020 [facility] Mixed hyperlipidemia (disorder) Active Problem [facility], [facility] [place], [facility], [facility] [place] Morbid obesity (disorder) Acti ve Problem [facility], [facility] [place], [facility] [place], [facility] [place] Pneumonia (disorder) Resolved Problem 05/07/2020 [facility], [facility] [place], [facility], [facility] [place] Peptic ulcer (disorder) Resolv ed Problem [facility], [facility] [place], [facility] [place], [facility] [place] Steatosis of liver (disorder) Active Problem Data migrated from [facility] on . [facility] [place], [facility] [place], [facility] [place] Subclinical hypothyroidism (disorder) Active Problem [facility] Diabetes mellitus type 2 in obese (disorder) Active Problem 05/07/2020 [facility] [place], [facility] [place], [facility] [place] Hypertensive disorder, systemic arterial (disorder) Active Problem 05/05/2015 [facility] Arthritis Resolved Problem 01/11/2013 [facility] Diabetes mellitus Active Problem 01/11/2013 [facility] Hypertension Active Problem 01/11/2013 [facility] Pneumonia Resolved Problem 01/11/2013 [facility] Sore throat symptom (finding) Active Problem [facility] FEVER NOS Active [facility] ASTHMA NOS Active [facility] PNEUMONIA, ORGANISM NOS Active [facility] CHR AIRWAY OBSTRUCT NEC Active [facility] BRONCHITIS NOS Active [facility] SEPSIS DUE TO UNSPECIFIED STAPHYLOCOCCUS Active [facility] ANEMIA, UNSPECIFIED Active [facility] Medications Medication Details Route Status Patient Instructions Ordering Provider Order Date Source pantoprazole 40 mg oral enteric coated tablet See Instructions, TAKE 1 TABLET BY MOUTH EVERY DAY, # 90 tab, 0 Refill(s), Pharmacy: [facility] #[id number], 154.94, cm, 12/22/19 10:39:00 CDT, Height, 90.727, kg, 12/22/19 10:39:00 CDT, Weight Active 05/03/2020 [facility] 3 ML insulin detemir 100 UNT/ML Prefille d Syringe [Levemir] See Instructions, ADMINISTER UP TO 35 UN ITS UNDER THE SKIN EVERY DAY, # 15 mL, 11 Refill(s), Pharmacy: [email or web address][id number], 154.94, cm, 12/22/19 10:39:00 CDT, Height, 90.727, kg, 12/22/19 10:39:00 CDT, Weight Active 03/29/2020 [facility] pantoprazole 40 mg oral enteric coated tablet = 1 tab, PO, Daily, # 90 tab, 0 Refill(s), Pharmacy: [email or web address][id number], 154.94, cm, 12/22/19 10:39:00 CDT, Height, 90.727, kg, 12/22/19 10:39:00 CDT, Weight Active 02/09/2020 [facility] apixaban 2.5 MG Oral Tablet [Eliquis] 2.5 mg, PO, Q12H, tab, 0 Refill(s) Active 12/22/2019 [facility] Albuterol 1 MG/ML Inhalant Solution 2.5 mg, INHALATION, Q6H, # 60 ea, 0 Refill(s) Active 12/22/2019 [facility] FREESTYLE LITE BLOOD GLUCOSE STRIPS See Instructions, # 100 strip, USE TO CHECK BLOOD SUGAR DIRECTED THREE TIMES DAILY, Pharmacy: [id number] Active 10/05/2019 [facility] 3 ML Insulin Lispro 100 UNT/ML Pen Injector [Humalog] See Instructions, # 45 mL, Refill(s) 4, INJECT 15 UNITS SUBCUTANEOUS THREE TIMES DAILY(WITH MEALS), Pharmacy: [email or web address] #[id number] Active 08/28/2019 [facility] BD Ultra-Fine Mini Insulin Pen [place] 3 1G 5mm=3/16 inch 1 ea, MISC, TID, Use as directed, # 900 ea, 3 Refill(s) Active 08/17/2019 [facility] pantoprazole 40 mg oral enteric coated tablet = 1 tab, PO, Daily, # 90 tab, Refill(s) 1, Pharmacy: [email or web address] #[id number] Active 08/04/2019 [facility] FREESTYLE LITE BLOOD GLUCOSE STRIPS See Instructions, # 100 strip, Refill(s) 5, USE TO CHECK BLOOD SUGAR DIRECTED THREE TIMES DAILY, Pharmacy: [email or web address] #[id number] Active 07/09/2019 [facility] atorvastatin 10 mg oral tablet = 1 tab, PO, Daily, # 90 tab, Refill(s) 3, Pharmacy: [email or web address] #[id number] Active 05/25/2019 [facility] 3 ML Insulin Lispro 100 UNT/ML Pen Injector [Humalog] See Instructions, # 45 mL, INJECT 15 UNITS SUBCUTANEOUS THREE TIMES DAILY(WITH MEALS), Pharmacy: [email or web address] #[id number] Active 05/11/2019 [facility] pantoprazole 40 mg oral enteric coated tablet See Instructions, # 90 tab, TAKE 1 TABLET BY MOUTH DAILY, Pharmacy: [email or web address] [facility] #[id number] Active 05/04/2019 [facility] pantoprazole 40 mg oral enteric coated tablet See Instructions, # 90 tab, TAKE 1 TABLET BY MOUTH DAILY, Pharmacy: [facility] [place] [id number] Active 01/30/2019 [facility] telmisartan 80 mg oral tablet 80 mg = 1 tab, PO, Daily, # 30 tab, 3 Refill(s) Active 01/06/2019 [facility] B-D PEN NDL MINI [id number](10/04)PRPL See Instructions, # 900 unknown unit, DIRECTED THREE TIMES DAILY, Pharmacy: [facility] [place] [id number] Active 10/07/2018 [facility] 3 ML insulin detemir 100 UNT/ML Prefille d Syringe [Levemir] See Instructions, INJECT UP TO 35 UNITS UNDER THE SKIN EVERY DAY, # 15 mL, 5 Refill(s), Pharmacy: [facility] [place] [id number] Active 09/22/2018 [facility] atorvastatin 10 mg oral tablet = 1 tab, PO, Daily, # 90 tab, Refill(s) 1, Pharmacy: [facility] [place] [id number] Active 08/29/2018 [facility] pantoprazole 40 mg oral enteric coated tablet = 1 tab, PO, Daily, # 90 tab, Refill(s) 1, Pharmacy: [facility] [id number] Active 08/06/2018 [facility] tramadol hydrochloride 50 MG Oral Tablet 50 mg = 1 tab, PO, Q6H, PRN Pain, # 40 tab, 0 Refill(s) Active 07/08/2018 [facility] Tylenol PO, 0 Refill(s) Active 07/08/2018 [facility] Zofran 4 mg, PO, PRN, 0 Refill (s) Active 07/08/2018 [facility] Freestyle Lite Blood Glucose Test Strips 1 ea, MISC, TID, Use for blood glucose monitoring., # 100 ea, Insulin dependent, Does not use insulin pump, Last DM eval date 04/09/18, 11 Refill(s), Pharmacy: [facility] [id number] Active 06/13/2018 [facility] atorvastatin 10 mg oral tablet See Instructions, # 90 tab, TAKE 1 TABLET BY MOUTH EVERY DAY, Pharmacy: [facility] [id number] No Longer Active 06/04/2018 [facility] Budesonide See Instructions, d id not know dosage but taking twice daily., 0 Refill(s) Active 04/09/2018 [facility] atorvastatin 10 mg oral tablet See Instructions, TAKE 1 TABLET BY MOUTH EVERY DAY, # 90 tab, 0 Refill(s), Pharmacy: [facility] [id number] No Longer Active 03/07/2018 [facility] pantoprazole 40 mg oral enteric coated tablet See Instructions, # 90 tab, TAKE 1 TABLET BY MOUTH DAILY, Pharmacy: [facility] [id number] Active 12/18/2017 [facility] atorvastatin 10 mg oral tablet See Instructions, # 90 tab, TAKE 1 TABLET BY MOUTH EVERY DAY, Pharmacy: [facility] [id number] Active 12/09/2017 [facility] pantoprazole 40 mg oral enteric coated tablet See Instructions, # 90 tab, TAKE 1 TABLET BY MOUTH DAILY, Pharmacy: [facility] [id number] Active 11/12/2017 [facility] 3 ML Insulin Lispro 100 UNT/ML Pen Injector [Humalog] See Instructions, USE DIRECTED, # 45 mL, 5 Refill(s), Pharmacy: [facility] [id number] No Longer Active 10/28/2017 [facility] 3 ML Insulin Lispro 100 UNT/ML Pen Injector [Humalog] See Instructions, USE DIRECTED, # 45 mL, 5 Refill(s), Pharmacy: [facility] [id number] No Longer Active 10/28/2017 [facility] atorvastatin 10 mg oral tablet See Instructions, # 90 tab, TAKE 1 TABLET BY MOUTH EVERY DAY, Pharmacy: [facility] [id number] No Longer Active 09/09/2017 [facility] amoxicillin 500 mg oral tablet See Instructions, 1 tab PO q 8 hours, 0 Refill(s) Active 08/05/2017 [facility] 24 HR Nifedipine 30 MG Extended Release Tablet [Procardia] 30 mg = 1 tab, PO, Daily, # 30 tab, 0 Refill(s) Active 08/05/2017 [facility] Furosemide 40 MG Oral Tablet 4 0 mg = 1 tab, PO, Daily, # 30 tab, 0 Refill(s) Active 08/05/2017 [facility] BD Ultra-Fine Mini Insulin Pen [place] 3 1G 5mm=3/16 inch 1 ea, MISC, TID, Use as directed, # 900 ea, 3 Refill(s) Active 07/26/2017 [facility] azelastine nasal 0.1% (137 mcg/inh) spray Notes: (azelastine 137 microgram/inh 34 ml nasal SPR) Non-formulary drug. Same As: Astelin) Inactive 04/10/2016 [facility] Docusate Sodium 50 MG / sennosides, CARE HOME 8.6 MG Oral Tablet 1 tab, PO, BID, X 30 day, # 60 tab, 0 Refill(s) Active 04/09/2016 [facility] Ciprofloxacin 500 MG Oral Tablet [Cipro] 500 mg = 1 tab, PO, Q12H, X 12 day, # 24 tab, 0 Refill(s) Active 04/09/2016 [facility] Albuterol 0.83 MG/ML Inhalant Solution Notes: SEE RT DOCUMENTATION (Same as: Proventil) No Longer Active 04/09/2016 [facility] Albuterol 0.83 MG/ML Inhalant Solution Notes: SEE RT DOCUMENTATION (Same as: Proventil) Inactive 04/09/2016 [facility] Miralax Notes: Dissolve in 8 o z of water or juice. (Same as: Miralax) Inactive 04/08/2016 [facility] Docusate Sodium 50 MG / sennosides, CARE HOME 8.6 MG Oral Tablet Notes: (Same as Senokot-S) Equiv. to Anamaria-Colace. No Longer Active 04/08/2016 [facility] insulin detemir Notes: Same as Levemir Do not hold insulin without contacting prescriber WASTE: F/P - Black; E - Municipal Trash Bin "single patient use only" No Longer Active 04/08/2016 [facility] sodium chloride 0.45% 1000 ml INJ 1,000 mL 1,000 mL, Rate: 125 ml/hr, Infuse over: 8 hr, Route: IV, Dosing Weight 99.091 kg, Total Volume: 1,000, Start date: 04/08/16 8:01:00 CDT, Duration: 24 hr, Stop date: 04/09/16 8:06:00 CDT No Longer Active 04/08/2016 [facility] Sodium Chloride 0.154 MEQ/ML Injectable Solution 2,000 mL, 1,000 ml/hr, Infuse Over: 2 hr, Route: IV, 2,000, Drug form: INJ, ONCE, Priority: STAT, Dosing Weight 99.091 kg, Start date: 04/08/16 8:01:00 CDT, Stop date: 04/08/16 8:01:00 CDT Inactive 04/08/2016 [facility] insulin detemir Notes: Same as Levemir Do not hold insulin without contacting prescriber WASTE: F/P - Black; E - Municipal Trash Bin "single patient use only" No Longer Active 04/08/2016 [facility] atorvastatin Notes: (Same As: Lipitor) No Longer Active 04/08/2016 [facility] Singulair Notes: (Same as:Sing ulair) No Longer Active 04/07/2016 [facility] pantoprazole Notes: Tablet lazaro uld not be chewed or crushed. (Same as: Protonix) N o Longer Active 04/07/2016 [facility] heparin Notes: porcine heparin No Longer Active 04/07/2016 [facility] meropenem 50, Extended infusio n, infuse over 3 hours, Start date: 04/07/16 16:00:00 CDT, Duration: 30 day, Stop date: 05/07/16 8:00:00 CDT Inactive 04/07/2016 [facility] Insulin, Aspart, Human Notes: Roll in palms of hands gently; Do not shake vigorously. (Same as: NovoLOG) "single patient use only" WASTE: F/P - Black; E - Municipal Trash Bin Stable for 28 days at room temperature. Expires in days from Date No Longer Active 04/07/2016 [facility] Glucagon 1 mg, Route: IM, Drug form: PDR/INJ, PRN, Dosing Weight 99.091, kg, PRN Blood Glucose Results, Start date: 04/07/16 12:44:00 CDT, Duration: 30 day, Stop date: 05/07/16 12:43:00 CDT No Longer Active 04/07/2016 [facility] Dextrose 50% Syringe 25 gm, 50 mL, Route: IVP, Drug Form: INJ, Dosing Weight 99.091, kg, PRN, PRN Blood Glucose Results, Start date: 04/07/16 12:44:00 CDT, Duration: 30 day, Stop date: 05/07/16 12:43:00 CDT No Longer Active 04/07/2016 [facility] Aspirin 81 MG Chewable Tablet Notes: Take with food. No Longer Active 04/07/2016 [facility] meropenem Notes: Same as Torsten malave MEDICATION WASTE Product Size: 500 mg Product Wasted: ___ mg No Longer Active 04/07/2016 [facility] Ventolin HFA 90 mcg/inh inhalation aerosol with adapte r Notes: Albuterol 90 microgram/inh 8gm HFA WASTE: Aerosol - Return to Pharmacy Same as: Reece, Proventil N o Longer Active 04/07/2016 [facility] Acetaminophen Notes: Do not ex ceed 4 gm/day. (Same as: Tylenol) No Longer Active 04/07/2016 [facility] Docusate Notes: (Same as: Cola ce) (Do Not Crush) No Longer Active 04/07/2016 [facility] Ondansetron Notes: (Same as: Olena marcos) MEDICATION WASTE Product Size: 4 mg Product Wasted: ___ mg No Longer Active 04/07/2016 [facility] Acetaminophen 300 MG / Codeine Phosphate 30 MG Oral Tablet [Tylenol with Codeine #3] Notes: Do not exceed 4gm/day of acetamin ophen. (Same as: Tylenol with Codeine # 3) Inactive 04/07/2016 [facility] Sodium Chloride 0.154 MEQ/ML Injectable Solution 1,000 mL, 1,000 ml/hr, Infuse Over: 1 hr, Route: IV, ONCE, Priority: STAT, Dosing Weight 100 kg, Start date: 04/07/16 6:34:00 CDT, Duration: 1 doses or times, Stop date: 04/07/16 6:34:00 CDT Inactive 04/07/2016 [facility] Saline Flush 0.9% Notes: prese rvative free. Inactive 04/07/2016 [facility] Ceftriaxone 1 gm, Route: IVPB, Drug form: PDR/INJ, ONCE, Dosing Weight 100, kg, Priority: STAT, Start date: 04/07/16 6:32:00 CDT, Stop date: 04/07/16 6:32:00 CDT Inactive 04/07/2016 [facility] Hydrochlorothiazide 25 MG Oral Tablet 25 mg = 1 tab, PO, Daily, # 30 tab, 0 Refill(s) O n Hold 04/07/2016 [facility] Zofran 4 mg, Route: IVP, Drug form: INJ, ONCE, Dosing Weight 99.091, kg, Priority: STAT, Start date: 04/06/16 18:39:00 CDT, Stop date: 04/06/16 18:39:00 CDT Inactive 04/06/2016 [facility] Sodium Chloride 0.154 MEQ/ML Injectable Solution 500 mL, 1,000 ml/hr, Infuse Over: 0.5 hr, Route: IV, 500, Drug form: INJ, ONCE, Priority: STAT, Dosing Weight 99.091 kg, Start date: 04/06/16 15:11:00 CDT, Duration: 1 doses or times, Stop date: 04/06/16 15:11:00 CDT Inactive 04/06/2016 [facility] d50 syringe 12.5 gm, 25 mL, Ro emilie: IVP, Drug Form: INJ, Dosing Weight 99.091, kg, ONCE, STAT, Start date: 04/06/16 15:10:00 CDT, Stop date: 04/06/16 15:10:00 CDT, 25 ml = 12.5 gm Inactive 04/06/2016 [facility] Insulin regular Notes: (Same a s: Humulin R and NovoLIN R) WASTE: F/P - Black; E - Municipal Trash Bin (Do not shake) Inactive 04/06/2016 [facility] Kayexalate Notes: (sodium poly styrene sulfonate 15 gm/60 ml GOLDEN) Shake well before use. (Same as: Kayexalate, SPS) Inactive 04/06/2016 [facility] Saline Flush 0.9% Notes: (Same as: BD Posiflush) Inactive 04/06/2016 [facility] Cephalexin 500 MG Oral Capsule [Keflex] 500 mg = 1 cap, PO, QID, X 10 day, # 40 cap, 0 Refill(s), Pharmacy: [facility] [id number] Active 10/01/2015 [facility] Albuterol 0.83 MG/ML Inhalant Solution Notes: SEE RT DOCUMENTATION (Same as: Proventil) Inactive 10/01/2015 [facility] Saline Flush 0.9% Notes: (Same as: BD Posiflush) Inactive 10/01/2015 [facility] Benicar 40 mg, 2 tab, Route: P O, Drug form: TAB, ONCE, Dosing Weight 97.273, kg, Start date: 09/22/15 12:56:00, Stop date: 09/22/15 12:56:00 Inactive 09/22/2015 [facility] Ciprofloxacin 250 MG Oral Tablet [Cipro] 250 mg = 1 tab, PO, Q12H, X 7 day, # 14 tab, 0 Refill(s), Pharmacy: [facility] [place] [id number] Active 09/22/2015 [facility] Ondansetron 4 MG Oral Tablet [Zofran] 4 mg = 1 tab, PO, BID, X 5 day, # 10 tab, 0 Refill(s), Pharmacy: [facility] [place] [id number] Active 09/22/2015 [facility] Ciprofloxacin 500 mg, Route: P O, ONCE, Dosing Weight 97.273, kg, Priority: STAT, Start date: 09/22/15 12:50:00, Stop date: 09/22/15 12:50:00 Inactive 09/22/2015 [facility] Sodium Chloride 0.154 MEQ/ML Injectable Solution 1,000 mL, 1,000 ml/hr, Infuse Over: 1 Hour, Route: IV, ONCE, Priority: STAT, Dosing Weight 97.273 kg, Start date: 09/22/15 8:51:00, Duration: 1 doses or times, Stop date: 09/22/15 8:51:00 Inactive 09/22/2015 [facility] Morphine 4 mg, Route: IVP, ONC E, Dosing Weight 97.273, kg, Priority: STAT, Start date: 09/22/15 8:47:00, Stop date: 09/22/15 8:47:00 Inactive 09/22/2015 [facility] Ondansetron 4 mg, Route: IVP, ONCE, Dosing Weight 97.273, kg, Priority: STAT, Start date: 09/22/15 8:47:00, Stop date: 09/22/15 8:47:00 Inactive 09/22/2015 [facility] Sodium Chloride 0.154 MEQ/ML Injectable Solution 1,000 mL, Infuse Over: 1 hr, Route: IV, ONCE, Priority: STAT, Dosing Weight 97.273 kg, Start date: 09/22/15 8:47:00, Duration: 1 doses or times, Stop date: 09/22/15 8:47:00 Inactive 09/22/2015 [facility] Saline Flush 0.9% Notes: (Same as: BD Posiflush) Inactive 09/22/2015 [facility] Ventolin HFA 90 mcg/inh inhalation aerosol with adapte r 2 puff, INHALER, Q4H, PRN wheezing, coughing, or shortness of breath, # 8 gm, 1 Refill(s) Active 03/01/2015 [facility] {21 (Methylprednisolone 4 MG Oral Tablet [Medrol]) } Pack [Medrol Dosepak] Special Instructions: Take by mouth as d irected on label. Active 03/01/2015 [facility] atorvastatin Notes: (Same As: Lipitor) No Longer Active 02/28/2015 [facility] Aspirin 81 MG Chewable Tablet Notes: Take with food. No Longer Active 02/28/2015 [facility] Amlodipine Notes: (Same as: No rvasc) No Longer Active 02/28/2015 [facility] Benicar 40 mg, 2 tab, Route: P O, Drug form: TAB, Daily, Dosing Weight 94.091, kg, Start date: 02/28/15 9:00:00, Duration: 30 day, Stop date: 03/29/15 9:00:00 No Longer Active 02/28/2015 [facility] Insulin, Aspart, Human Notes: Roll in palms of hands gently; Do not shake vigorously. (Same as: NovoLOG) "single patient use only" Stable for 28 days at room temperature. Expires in days from Date Inactive 02/28/2015 [facility] Levemir FlexPen Notes: Same as Levemir Do not hold insulin without contacting prescriber "single patient use only" No Longer Active 02/28/2015 [facility] Protonix Notes: Same as: Jacky nix Mix in 5 mL apple juice or applesauce for oral & 10mL apple juice for NG tube No Longer Active 02/27/2015 [facility] Solu-Medrol Notes: (Same as:So kevin-MEDROL, A-Methapred) No Longer Active 02/27/2015 [facility] pantoprazole 40 mg, PO, Daily, # 30 tab, 0 Refill(s) Active 02/27/2015 [facility] Ursodeoxycholate Notes: (Same As: Actigall) No Longer Active 02/27/2015 [facility] Insulin, Aspart, Human Notes: Roll in palms of hands gently; Do not shake vigorously. (Same as: NovoLOG) "single patient use only" Stable for 28 days at room temperature. Expires in days from Date No Longer Active 02/27/2015 [facility] Dextrose 50% Syringe 25 gm, 50 mL, Route: IVP, Drug Form: INJ, Dosing Weight 94.091, kg, PRN, PRN Blood Glucose Results, Start date: 02/27/15 12:50:00, Duration: 30 day, Stop date: 03/29/15 12:49:00 No Longer Active 02/27/2015 [facility] Glucagon 1 mg, Route: IM, Drug form: PDR/INJ, PRN, Dosing Weight 94.091, kg, PRN Blood Glucose Results, Start date: 02/27/15 12:50:00, Duration: 30 day, Stop date: 03/29/15 12:49:00 No Longer Active 02/27/2015 [facility] Ursodeoxycholate 300 mg, PO, T ID, 0 Refill(s) Active 02/27/2015 [facility] Nitroglycerin 0.4 MG Sublingual Tablet Notes: (Same as:Nitroquick, Nitrostat) "Do Not Crush" Sublingual tablet No Longer Active 02/27/2015 [facility] Atropine 0.5 mg, 5 mL, Route: IV, Drug form: INJ, PRN, Dosing Weight 94.091, kg, PRN Bradycardia, Start date: 02/27/15 8:56:00, Duration: 30 day, Stop date: 03/29/15 8:55:00 No Longer Active 02/27/2015 [facility] Albuterol 0.83 MG/ML Inhalant Solution Notes: SEE RT DOCUMENTATION (Same as: Proventil) No Longer Active 02/27/2015 [facility] Albuterol 0.833 MG/ML / Ipratropium Brom grady 0.167 MG/ML Inhalant Solution [DuoNeb] Notes: (Same as: Duoneb) No Longer Active 02/27/2015 [facility] Ondansetron Notes: (Same as: Olena marcos) MEDICATION WASTE Product Size: 4 mg Product Wasted: ___ mg No Longer Active 02/27/2015 [facility] Docusate Notes: (Same as: Cola ce) (Do Not Crush) No Longer Active 02/27/2015 [facility] Acetaminophen Notes: Do not ex ceed 4 gm/day. (Same as: Tylenol) No Longer Active 02/27/2015 [facility] Morphine Notes: (Same as:MORPh ine Sulfate) No Longer Active 02/27/2015 [facility] Benicar 40 mg, 2 tab, Route: P O, Drug form: TAB, ONCE, Dosing Weight 94.091, kg, Priority: NOW, Start date: 02/27/15 5:33:00, Stop date: 02/27/15 5:33:00 Inactiv e 02/27/2015 [facility] methylPREDNISolone SODium SUCCinate 125 mg, Route: IVP, ONCE, Dosing Weight 94.091, kg, Priority: STAT, Start date: 02/27/15 3:34:00, Stop date: 02/27/15 3:34:00 Inactive 02/27/2015 [facility] Albuterol 0.833 MG/ML / Ipratropium Brom grady 0.167 MG/ML Inhalant Solution 3 mL, Route: NEB, Drug Form: SOLN, Dosin g Weight 94.091, kg, ONCE, STAT, Start date: 02/27/15 1:50:00, Stop date: 02/27/15 1:50:00 Inactive 02/27/2015 [facility] Saline Flush 0.9% Notes: (Same as: BD Posiflush) Inactive 02/27/2015 [facility] doxycycline monohydrate 100 mg oral tablet 100 mg = 1 tab, PO, Q12H, # 20 tab, 0 Refill(s) Active 10/10/2014 [facility] predniSONE 10 mg oral tablet S pecial Instructions: 12 day regimen: Days 1-4 - 20 mg (2 tabs) daily Days 5-8 - 10 mg (1 tab) daily Days 9-12 - 5 mg (1/2 tab) daily Active 10/10/2014 [facility] Albuterol 0.833 MG/ML / Ipratropium Brom grady 0.167 MG/ML Inhalant Solution [DuoNeb] Notes: (Same as: Shaunna) Inactive 10/10/2014 [facility] Albuterol 0.833 MG/ML / Ipratropium Brom grady 0.167 MG/ML Inhalant Solution [DuoNeb] Notes: (Same as: Shaunna) Inactive 10/10/2014 [facility] Saline Flush 0.9% Notes: Same as: BD Posiflush Sterile Inactive 10/10/2014 [facility] Sulfamethoxazole 800 MG / Trimethoprim 1 60 MG Oral Tablet [Bactrim] 1 tab, PO, BID, # 14 tab, 0 Refill(s) Active 08/23/2014 [facility] benzonatate 100 MG Oral Capsule [Tessalon Perles] 100 mg = 1 cap, PO, TID, # 30 cap, 0 Refill(s) Active 05/16/2014 [facility] Albuterol 0.833 MG/ML / Ipratropium Brom grady 0.167 MG/ML Inhalant Solution 3 mL, Route: NEB, Drug Form: SOLN, Dosin g Weight 92.727, kg, ONCE, STAT, Start date: 05/16/14 12:48:00, Stop date: 05/16/14 12:48:00 Inactive 05/16/2014 [facility] Saline Flush 0.9% 10 mL, Route : IVP, Drug Form: INJ, Dosing Weight 92.727, kg, PRN, PRN Line Flush, Start date: 05/16/14 12:48:00, Duration: 30 day, Stop date: 06/15/14 11:47:00 Inactive 05/16/2014 [facility] Levemir FlexPen 25 unit, 0.25 mL, Route: SUB-Q, Drug form: INJ, Bedtime, Start date: 01/09/13 21:00:00, Duration: 30 day, Stop date: 02/07/13 21:00:00 SUB-Q No Longer Active [place] 01/10/2013 [facility] Protonix 40 mg oral enteric coated tablet 40 mg, 1 tab, PO, Daily, 30 tab, Substitution Allowed, ECTAB PO Active [place] 01/09/2013 [facility] amLODipine 10 mg oral tablet 1 0 mg, 1 tab, PO, Daily, 30 tab, Substitution Allowed, TAB PO Active [facility] 01/09/2013 [facility] predniSONE 10 mg oral tablet 1 0 mg, 1 tab, PO, Daily, 14 tab, Substitution Allowed, TAB PO Active [facility] 01/09/2013 [facility] Levemir FlexPen 10 unit, 0.1 m L, Route: SUB-Q, Drug form: INJ, QAM, Start date: 01/09/13 9:00:00, Duration: 30 day, Stop date: 02/07/13 9:00:00 SUB-Q No Longer Active [facility] 01/09/2013 [facility] NS 1,000 mL 1,000 mL, Rate: 75 ml/hr, Infuse over: 13.3 hr, Route: IV, Dosing Weight 93.636 kg, Total Volume: 1,000, Start date: 01/09/13 8:07:00, Duration: 30 day, Stop date: 02/08/13 8:06:00 IV No Longer Active [facility] 01/09/2013 [facility] Levemir FlexPen 15 unit, 0.15 mL, Route: SUB-Q, Drug form: INJ, Daily, Dosing Weight 93.636, kg, Start date: 01/08/13 21:00:00, Duration: 30 day, Stop date: 02/06/13 21:00:00 SUB-Q No Longer Active [place] 01/09/2013 [facility] NovoLog FlexPen 18 unit, 0.18 mL, Route: SUB-Q, Drug form: SOLN, Sliding Scale, PRN Blood Glucose Results, Start date: 01/08/13 18:56:00, Duration: 30 day, Stop date: 02/07/13 18:55:00 SUB-Q No Longer Active [facility] 01/08/2013 [facility] NovoLog FlexPen 12 unit, 0.12 mL, Route: SUB-Q, Drug form: SOLN, Sliding Scale, PRN Blood Glucose Results, Start date: 01/08/13 18:55:00, Duration: 30 day, Stop date: 02/07/13 18:54:00 SUB-Q No Longer Active [facility] 01/08/2013 [facility] NovoLog FlexPen 8 unit, Route: SUB-Q, Drug form: SOLN, Sliding Scale, PRN Blood Glucose Results, Start date: 01/08/13 18:53:00, Duration: 30 day, Stop date: 02/07/13 18:52:00 SUB-Q No Longer Active [facility] 01/08/2013 [facility] pantoprazole 40 mg, 1 tab, Rou te: PO, Drug form: ECTAB, Daily, Dosing Weight 93.636, kg, Priority: Routine, Start date: 01/08/13 9:00:00, Stop date: 02/06/13 9:00:00 PO No Longer Active [facility] 01/08/2013 [facility] SoluMedrol 40 mg, 1 mL, Route: IVP, Drug form: INJ, Q12H, Dosing Weight 93.636, kg, Start date: 01/08/13 9:00:00, Duration: 30 day, Stop date: 02/06/13 21:00:00 IVP No Longer Active [facility] 01/08/2013 [facility] Diovan 320 mg, 2 tab, Route: P O, Drug form: TAB, Daily, Dosing Weight 93.636, kg, Start date: 01/08/13 9:00:00, Duration: 30 day, Stop date: 02/06/13 9:00:00 PO No Longer Active [facility] 01/08/2013 [facility] pneumococcal 23-valent vaccine 0.5 ml, Route: IM, Drug Form: INJ, Daily, Start date: 01/08/13 9:00:00, Duration: 1 doses or times, Stop date: 01/08/13 9:00:00 IM No Longer Active [facility] 01/08/2013 [facility] aspirin 81 mg tablet, chewable 81 mg, 1 tab, Route: PO, Drug form: CHEWTAB, Daily, Dosing Weight 93.636, kg, Start date: 01/08/13 9:00:00, Duration: 30 day, Stop date: 02/06/13 9:00:00 [facility] atorvastatin 10 mg, 1 tab, Rou te: PO, Drug form: TAB, QAM, Dosing Weight 93.636, kg, Start date: 01/08/13 9:00:00, Duration: 30 day, Stop date: 02/06/13 9:00:00 [facility] amLODipine 5 mg, 1 tab, Route: PO, Drug form: TAB, BID, Dosing Weight 93.636, kg, Start date: 01/08/13 9:00:00, Duration: 30 day, Stop date: 02/06/13 21:00:00 PO No Longer Active [facility] 01/08/2013 [facility] NovoLog FlexPen 12 unit, 0.12 mL, Route: SUB-Q, Drug form: SOLN, Sliding Scale, PRN Blood Glucose Results, Start date: 01/08/13 8:59:00, Duration: 30 day, Stop date: 02/07/13 8:58:00 SUB-Q No Longer Active [facility] 01/08/2013 [facility] DuoNeb inhalation solution 3 m L, Route: INHALATION, Drug Form: SOLN, Dosing Weight 93.636, kg, RQ6H, Start date: 01/08/13 8:00:00, Duration: 30 day, Stop date: 02/07/13 2:00:00 INHALATION No Longer Active [facility] 01/08/2013 [facility] codeine-guaifenesin 10 mg-200 mg/5 mL oral liquid 10 mL, Route: PO, Drug Form: LIQ, Dosing Weight 93.636, kg, Q4H, PRN as needed for cough, Start date: 01/08/13 4:50:00, Duration: 30 day, Stop date: 02/07/13 4:49:00 PO No Longer Active [facility] 01/08/2013 [facility] Zofran 4 mg, 2 mL, Route: IV, Drug form: INJ, Q4H, Dosing Weight 93.636, kg, PRN as needed for nausea/vomiting, Start date: 01/08/13 4:50:00, Duration: 30 day, Stop date: 02/07/13 4:49:00 IV No Longer Active [facility] 01/08/2013 [facility] acetaminophen 650 mg, 2 tab, R oute: PO, Drug form: TAB, Q6H, Dosing Weight 93.636, kg, PRN Pain, Start date: 01/08/13 4:50:00, Duration: 30 day, Stop date: 02/07/13 4:49:00 PO No Longer Active [facility] 01/08/2013 [facility] azithromycin + Sodium Chloride 0.9% IV 250 mL 500 mg, Route: IVPB, [id number], Dosing Weight 90.455, kg, Priority: Routine, Start date: 01/08/13 3:00:00, Duration: 30 day, Stop date: 02/06/13 3:00:00 IVPB No Longer Active [facility] 01/08/2013 [facility] ceftriaxone + Sodium Chloride 0.9% IV 100 mL 1 gm, Route: IVPB, [id number], Dosing Weight 90.455, kg, Priority: Routine, Start date: 01/08/13 3:00:00, Duration: 30 day, Stop date: 02/06/13 3:00:00 IVPB No Longer Active [facility] 01/08/2013 [facility] Dextrose 50% Syringe 25 gm, 50 mL, Route: IVP, Drug Form: INJ, Dosing Weight 90.455, kg, PRN, PRN Blood Glucose Results, Start date: 01/08/13 2:41:00, Duration: 30 day, Stop date: 02/07/13 2:40:00 IVP No Longer Active [facility] 01/08/2013 [facility] insulin aspart 4 unit, 0.04 mL , Route: SUB-Q, Drug form: SOLN, Bedtime, Dosing Weight 90.455, kg, PRN Blood Glucose Results, Start date: 01/08/13 2:41:00, Duration: 30 day, Stop date: 02/07/13 2:40:00 SUB-Q No Longer Active [facility] 01/08/2013 [facility] glucagon 1 mg, Route: IM, Drug form: PDR/INJ, PRN, Dosing Weight 90.455, kg, PRN Blood Glucose Results, Start date: 01/08/13 2:41:00, Duration: 30 day, Stop date: 02/07/13 2:40:00 IM No Longer Active [facility] 01/08/2013 [facility] albuterol-ipratropium 2.5-0.5 mg inhalation solution 3 mL, Route: NEB, Drug Form: SOLN, Dosing Weight 90.455, kg, PRN, PRN Respiratory Protocol, Start date: 01/08/13 2:39:00, Duration: 30 day, Stop date: 02/07/13 2:38:00 [facility] acetaminophen 650 mg, 20.3 mL, Route: PO, Drug form: LIQ, Q4H, Dosing Weight 90.455, kg, PRN Pain Score 1-3, For fever > 100.4. Not to exceed 4 grams in 24 hours, Start date: 01/08/13 2:39:00, Duration: 30 day, Stop date: 02/07/13 2:38:00 PO No Longer Active [facility] 01/08/2013 [facility] DuoNeb inhalation solution 3 m l, Route: INHALATION, Drug Form: SOLN, Dosing Weight 90.455, kg, PRN, PRN Respiratory Protocol, Start date: 01/08/13 1:38:00, Duration: 30 day, Stop date: 02/07/13 1:37:00 INHALATION No Longer Active [place] 2012 [facility] azithromycin + Sodium Chloride 0.9% IV 250 mL 500 mg, Route: IVPB, ONCE, Dosing Weight 90.455, kg, Priority: STAT, Start date: 01/08/13 0:48:00, Stop date: 01/08/13 0:48:00 IVPB No Longer Active [place] 01/08/2013 [facility] ceftriaxone + Sodium Chloride 0.9% IV 100 mL 1 gm, Route: IVPB, ONCE, Dosing Weight 90.455, kg, Priority: STAT, Start date: 01/08/13 0:48:00, Stop date: 01/08/13 0:48:00 IVPB No Longer Active [place] 01/08/2013 [facility] amLODipine 5 mg, 1 tab, Route: PO, Drug form: TAB, ONCE, Dosing Weight 90.455, kg, Start date: 01/08/13 0:23:00, Stop date: 01/08/13 0:23:00 PO No Longer Active [place] 01/08/2013 [facility] metoprolol tartrate 50 mg, 1 t ab, Route: PO, Drug form: TAB, ONCE, Dosing Weight 90.455, kg, Priority: STAT, Start date: 01/08/13 0:23:00, Stop date: 01/08/13 0:23:00 PO No Longer Active [place] 01/08/2013 [facility] Pepcid 40 mg, 1 tab, Route: PO , Drug form: TAB, ONCE, Start date: 01/07/13 20:56:00, Stop date: 01/07/13 20:56:00 PO No Longer Active [place] 01/08/2013 [facility] Zantac 300 300 mg, Route: PO, ONCE, Dosing Weight 90.455, kg, Start date: 01/07/13 20:18:00, Stop date: 01/07/13 20:18:00 PO No Longer Active [place] 2012 [facility] albuterol-ipratropium 2.5-0.5 mg inhalation solution 3 mL, Route: NEB, Dosing Weight 90.455, kg, ONCE, STAT, Start date: 01/07/13 20:17:00, Stop date: 01/07/13 20:17:00 NEB No Longer Active [place] 01/08/2013 [facility] methylPREDNISolone SODium SUCCinate 20 mg, 0.5 mL, Route: IVP, Drug form: INJ, Daily, Dosing Weight 92.727, kg, Start date: 09/04/12 9:00:00, Duration: 30 day, Stop date: 10/03/12 9:00:00 IVP No Longer Active [facility] 09/04/2012 [facility] NovoLog 10 unit, 0.1 mL, Route : SUB-Q, Drug form: SOLN, ONCE, Dosing Weight 92.5, kg, Start date: 09/03/12 13:30:00, Stop date: 09/03/12 13:30:00 SUB-Q No Longer Active [facility] 09/03/2012 [facility] Vantin 200 mg oral tablet 200 mg, 1 tab, PO, Q12H, 14 tab, Substitution Allowed, TAB PO Active [facility] 09/03/2012 [facility] Medrol Dosepak 4 mg Tablet As directed on package instructions, PO, Daily, Take with or without food, 1 Pack, Substitution AllowedTake with or without food PO Active [facility] 09/03/2012 [facility] albuterol 90 mcg/inh inhalation aerosol 1 puff, INHALATION, QID, PRN, 1 ea, wheezing, Substitution Allowed, Maintenance INHALATION Active [facility] Tussionex [employer] oral suspension, extended releas e 5 ml, PO, Q12H, PRN, 100 mL, for cough, Substitution Allowed, Maintenance, ER Suspension PO Active [facility] atorvastatin 10 mg, 1 tab, Rou te: PO, Drug form: TAB, QAM, Dosing Weight 92.5, kg, Start date: 09/03/12 9:00:00, Duration: 30 day, Stop date: 10/02/12 9:00:00 PO No Longer Active [facility] 09/03/2012 [facility] aspirin 81 mg tablet, chewable 81 mg, 1 tab, Route: PO, Drug form: CHEWTAB, Daily, Dosing Weight 92.5, kg, Start date: 09/03/12 9:00:00, Duration: 30 day, Stop date: 10/02/12 9:00:00 PO No Longer Active [facility] 09/03/2012 [facility] amLODipine 5 mg, 1 tab, Route: PO, Drug form: TAB, BID, Dosing Weight 92.5, kg, Start date: 09/03/12 9:00:00, Duration: 30 day, Stop date: 10/02/12 17:00:00 PO No Longer Active [facility] 09/03/2012 [facility] Diovan 320 mg, 2 tab, Route: P O, Drug form: TAB, Daily, Dosing Weight 92.5, kg, Start date: 09/03/12 9:00:00, Duration: 30 day, Stop date: 10/02/12 9:00:00 PO No Longer Active [facility] 09/03/2012 [facility] metoprolol extended release 10 0 mg, 1 tab, Route: PO, Drug form: ERTAB, QAM, Start date: 09/03/12 9:00:00, Duration: 30 day, Stop date: 10/02/12 9:00:00 PO No Longer Active [facility] 09/03/2012 [facility] NovoLog PenFill Route: SUB-Q, Drug form: SOLN, TID- Meals, Dosing Weight 92.5, kg, Start date: 09/03/12 8:00:00, Duration: 30 day, Stop date: 10/02/12 17:00:00 SUB-Q No Longer Active [facility] 09/03/2012 [facility] NovoLog 10 unit, 0.1 mL, Route : SUB-Q, Drug form: SOLN, ONCE, Dosing Weight 92.5, kg, Priority: NOW, Start date: 09/02/12 22:19:00, Stop date: 09/02/12 22:19:00 SUB-Q No Longer Active [facility] 09/03/2012 [facility] Toprol-XL 50 mg oral tablet, extended release 50 mg, 1 tab, Route: PO, Drug form: ERTAB, QPM, Start date: 09/02/12 21:00:00, Duration: 30 day, Stop date: 10/01/12 21:00:00 PO No Longer Active [facility] 09/03/2012 [facility] Levemir FlexPen 15 unit, 0.15 mL, Route: SUB-Q, Drug form: INJ, Bedtime, Dosing Weight 92.5, kg, Start date: 09/02/12 21:00:00, Duration: 30 day, Stop date: 10/01/12 21:00:00 SUB-Q No Longer Active [facility] 09/03/2012 [facility] insulin detemir 25 unit, 0.25 mL, Route: SUB-Q, Drug form: INJ, Bedtime, Dosing Weight 92.5, kg, Start date: 09/02/12 21:00:00, Duration: 30 day, Stop date: 10/01/12 21:00:00 SUB-Q No Longer Active [facility] 09/03/2012 [facility] methylPREDNISolone SODium SUCCinate 40 mg, 1 mL, Route: IVP, Drug form: INJ, Q12H, Dosing Weight 92.727, kg, Start date: 09/02/12 21:00:00, Duration: 30 day, Stop date: 10/02/12 9:00:00 IVP No Longer Active [facility] 09/03/2012 [facility] enoxaparin 40 mg, 0.4 mL, Rout e: SUB-Q, Drug form: INJ, [id number], Dosing Weight 92.5, kg, Start date: 09/02/12 18:00:00, Duration: 30 day, Stop date: 10/01/12 18:00:00 SUB-Q No Longer Active [place] 09/03/2012 [facility] Tylenol 650 mg, 2 tab, Route: PO, Drug form: TAB, Q6H, Dosing Weight 92.5, kg, PRN Pain Score 1-3, Start date: 09/02/12 17:46:00, Duration: 30 day, Stop date: 10/02/12 17:45:00 PO No Longer Active [place] 09/02/2012 [facility] [place] 5/325 oral tablet 1 tab, Route: PO, Drug Form: TAB, Dosing Weight 92.5, kg, Q6H, PRN Pain Score 1-5, Start date: 09/02/12 17:46:00, Duration: 30 day, Stop date: 10/02/12 17:45:00 PO No Longer Active [place] 09/02/2012 [facility] morphine Sulfate 2 mg, 1 mL, R oute: IVP, Drug form: INJ, Q4H, Dosing Weight 92.5, kg, PRN Pain Score 6-10, Start date: 09/02/12 17:45:00, Duration: 30 day, Stop date: 10/02/12 17:44:00 IVP No Longer Active [place] 09/02/2012 [facility] dextromethorphan-guaifenesin 10 mg-100 m g/5 mL oral liquid 10 ml, Route: PO, Drug Form: SYRP, Dosin g Weight 92.5, kg, Q4H, PRN Cough, Start date: 09/02/12 17:44:00, Duration: 30 day, Stop date: 10/02/12 17:43:00 PO No Longer Active [place] 013 [facility] Tessalon Perles 100 mg, 1 cap, Route: PO, Drug form: CAP, TID, Dosing Weight 92.5, kg, PRN Cough, Start date: 09/02/12 17:44:00, Duration: 30 day, Stop date: 10/02/12 17:43:00 PO No Longer Active [place] 09/02/2012 [facility] Zofran 4 mg, 2 mL, Route: IV, Drug form: INJ, Q6H, Dosing Weight 92.5, kg, PRN Nausea, Start date: 09/02/12 17:44:00, Duration: 30 day, Stop date: 10/02/12 17:43:00 IV No Longer Active [facility] 09/02/2012 [facility] insulin aspart 6 unit, 0.06 mL , Route: SUB-Q, Drug form: SOLN, TID-Before Meals, Dosing Weight 92.5, kg, PRN Blood Glucose Results, Start date: 09/02/12 17:44:00, Duration: 30 day, Stop date: 10/02/12 17:43:00 SUB-Q No Longer Active [facility] [address] [place] [address] Dextrose 50% Syringe 12.5 gm, 25 mL, Route: IVP, Drug Form: INJ, Dosing Weight 92.5, kg, PRN, PRN Blood Glucose Results, Start date: 09/02/12 17:44:00, Duration: 30 day, Stop date: 10/02/12 18:43:00 IVP No Longer Active [facility] 09/02/2012 [facility] glucagon 1 mg, Route: IM, Drug form: PDR/INJ, PRN, Dosing Weight 92.5, kg, PRN Blood Glucose Results, Start date: 09/02/12 17:44:00, Duration: 30 day, Stop date: 10/02/12 18:43:00 IM No Longer Active [facility] 09/02/2012 [facility] nitroglycerin 0.4 mg sublingual tablet 0.4 mg, 1 tab, Route: SL, Drug form: TAB, Q5Min, PRN Chest Pain, Start date: 09/02/12 17:01:00, Duration: 30 day, Stop date: 10/02/12 18:00:00 SL No Longer Active [facility] 09/02/2012 [facility] atropine 0.5 mg, 5 mL, Route: IVP, Drug form: INJ, PRN, PRN Bradycardia, Start date: 09/02/12 17:01:00, Duration: 30 day, Stop date: 10/02/12 18:00:00 IVP No Longer Active [facility] 09/02/2012 [facility] Maxipime + Sodium Chloride 0.9% IV 100 mL 1 gm, Route: IVPB, [id number], Dosing Weight 92.727, kg, Priority: STAT, Start date: 09/02/12 16:52:00, Duration: 30 day, Stop date: 10/01/12 16:52:00 IVPB No Longer Active [facility] 09/02/2012 [facility] Cipro 400 mg, 200 mL, Route: I VPB, Drug form: INJ, [id number], Dosing Weight 92.727, kg, Priority: STAT, Start date: 09/02/12 16:52:00, Duration: 30 day, Stop date: 10/02/12 4:52:00 IVPB No Longer Active [facility] 09/02/2012 [facility] Saline Flush 0.9% 5 ml, Route: IVP, Drug Form: INJ, Dosing Weight 92.727, kg, PRN, PRN Line Flush, Start date: 09/02/12 16:52:00, Duration: 30 day, Stop date: 10/02/12 17:51:00 IVP No Longer Active [facility] 09/02/2012 [facility] albuterol 0.083% inhalation solution 2.49 mg, Route: NEB, PRN, Dosing Weight 92.727, kg, PRN Respiratory Protocol, Start date: 09/02/12 16:52:00, Duration: 30 day, Stop date: 10/02/12 17:51:00 NEB No Longer Active [facility] 09/02/2012 [facility] albuterol-ipratropium 2.5-0.5 mg inhalation solution 3 mL, Route: NEB, Drug Form: SOLN, Dosing Weight 92.727, kg, PRN, PRN Respiratory Protocol, Start date: 09/02/12 16:52:00, Duration: 30 day, Stop date: 10/02/12 17:51:00 NEB No Longer Active [facility] 09/02/2012 [facility] ipratropium 0.5 mg, Route: NEB , PRN, Dosing Weight 92.727, kg, PRN Respiratory Protocol, Start date: 09/02/12 16:52:00, Duration: 30 day, Stop date: 10/02/12 17:51:00 NEB No Longer Active [facility] 09/02/2012 [facility] NovoLog PenFill 100 units/mL subcutaneous solution sliding scale, SUB-Q, TID-Meals, 5 units for BS 80-120, 6 units for BS 121-150, 7.5 units for 150-200, 9 units for BS 201-250, 10 units for BS 250-300, 12.5 units for BS > 300, 3 ml, Substitution Allowed, SOLN 300 SUB-Q Active [facility] 09/02/2012 [facility] Dextrose 50% Syringe 12.5 gm, 25 mL, Route: IVP, Drug Form: INJ, Dosing Weight 92.727, kg, PRN, PRN Blood Glucose Results, Start date: 09/02/12 16:51:00, Duration: 30 day, Stop date: 10/02/12 17:50:00 IVP No Longer Active [facility] 09/02/2012 [facility] glucagon 1 mg, Route: IM, Drug form: PDR/INJ, PRN, Dosing Weight 92.727, kg, PRN Blood Glucose Results, Start date: 09/02/12 16:51:00, Duration: 30 day, Stop date: 10/02/12 17:50:00 IM No Longer Active [facility] 09/02/2012 [facility] insulin aspart 2 unit, 0.02 mL , Route: SUB-Q, Drug form: SOLN, TID-Before Meals, Dosing Weight 92.727, kg, PRN Blood Glucose Results, Start date: 09/02/12 16:51:00, Duration: 30 day, Stop date: 10/02/12 16:50:00 SUB-Q No Longer Active [facility] 013 [facility] Levemir FlexPen 100 units/mL subcutaneous solution 25 unit, SUB-Q, Bedtime, if BS > 200, 3 ml, Substitution Allowed, SOLN 200 SUB-Q Active [facility] 09/02/2012 [facility] Toprol-XL 50 mg oral tablet, extended release 50 mg, 1 tab, PO, QPM, 30 tab, Substitution Allowed, ERTAB PO Active [facility] 09/02/2012 [facility] Cipro 400 mg, Route: IVPB, ONC E, Dosing Weight 92.727, kg, Priority: STAT, Start date: 09/02/12 13:13:00, Stop date: 09/02/12 13:13:00 IVPB No Longer Active [facility] 09/02 [facility] Maxipime 2 gm, Route: IVPB, ON CE, Dosing Weight 92.727, kg, Priority: STAT, Start date: 09/02/12 13:13:00, Stop date: 09/02/12 13:13:00 IVPB No Longer Active [facility] 09/02 [facility] DuoNeb inhalation solution 3 m l, Route: INHALATION, Drug Form: SOLN, Dosing Weight 92.727, kg, PRN, PRN Respiratory Protocol, Start date: 09/02/12 12:52:00, Duration: 30 day, Stop date: 10/02/12 13:51:00 INHALATION No Longer Active [facility] 09/02 [facility] SoluMedrol 125 mg, Route: IVP, ONCE, Dosing Weight 92.727, kg, Priority: STAT, Start date: 09/02/12 12:52:00, Stop date: 09/02/12 12:52:00 IVP No Longer Active [facility] 09/02/2012 [facility] Zithromax 500 mg, Route: IVPB, ONCE, Dosing Weight 92.727, kg, Priority: STAT, Start date: 09/02/12 12:50:00, Stop date: 09/02/12 12:50:00 IVPB No Longer Active [facility] 09/02/2012 [facility] Rocephin 1 g/ NS (NaCl 0.9%) 50 mL IV solution 1 gm, Route: IVPB, Drug form: PDR/INJ, ONCE, Dosing Weight 92.727, kg, Priority: STAT, Start date: 09/02/12 12:49:00, Stop date: 09/02/12 12:49:00 IVPB No Longer Active [facility] 09/02/2012 [facility] pantoprazole 40 mg, 1 tab, Rou te: PO, Drug form: ECTAB, Before Breakfast, Dosing Weight 95, kg, Priority: Routine, Start date: 06/27/12 7:30:00, Duration: 30 day, Stop date: 07/26/12 7:30:00 PO No Longer Active [facility] 06/27/2012 [facility] Levaquin 500 mg, 2 tab, Route: PO, Drug form: TAB, [id number], Dosing Weight 95, kg, Start date: 06/26/12 11:00:00, Duration: 30 day, Stop date: 07/25/12 11:00:00 PO No Longer Active [facility] 06/26/2012 [facility] Levaquin 500 mg oral tablet 50 0 mg, 1 tab, PO, [id number], 4 tab, Substitution Allowed, TAB PO Active [facility] 06/26/2012 [facility] Levemir 15 unit, 0.15 mL, Rout e: SUB-Q, Drug form: INJ, QPM, Dosing Weight 95, kg, Start date: 06/24/12 17:00:00, Duration: 30 day, Stop date: 07/23/12 17:00:00 SUB-Q No Longer Active [facility] 06/24/2012 [facility] glucagon 1 mg, Route: IM, Drug form: PDR/INJ, PRN, Dosing Weight 95, kg, PRN Abnormal Lab Result, Priority: STAT, Start date: 06/24/12 11:35:00, Duration: 30 day, Stop date: 07/24/12 11:34:00 IM No Longer Active [facility] 06/24/2012 [facility] insulin aspart 2 unit, 0.02 mL , Route: SUB-Q, Drug form: SOLN, Bedtime, Dosing Weight 95, kg, PRN Blood Glucose Results, Start date: 06/24/12 11:35:00, Duration: 30 day, Stop date: 07/24/12 11:34:00 SUB-Q No Longer Active [facility] 06/24/2012 [facility] Dextrose 50% Syringe 12.5 gm, 25 mL, Route: IVP, Drug Form: INJ, Dosing Weight 95, kg, PRN, PRN Blood Glucose Results, Start date: 06/24/12 11:35:00, Duration: 30 day, Stop date: 07/24/12 11:34:00 IVP No Longer Active [facility] 06/24/2012 [facility] docusate 100 mg, 1 cap, Route: PO, Drug form: CAP, BID, Dosing Weight 95, kg, Start date: 06/24/12 9:00:00, Duration: 30 day, Stop date: 07/23/12 17:00:00 PO No Longer Active [facility] 06/24/2012 [facility] Cycloset 3.2 mg, Route: PO, Dr ug form: TAB, After Breakfast, Dosing Weight 95, kg, Start date: 06/24/12 8:30:00, Duration: 30 day, Stop date: 07/23/12 8:30:00 PO No Longer Active [facility] 06/24/2012 [facility] Cycloset 3.2mg PO after breakfast-Use pt's home med* * Cycloset 3.2mg PO after breakfast-Use pt's home med, 3.2 mg, Drug form: MISC, Route: PO, After Breakfast, 06/24/12 8:30:00, Duration: 30 day, Stop date: 07/23/12 8:30:00 PO No Longer Active [facility] 06/24/2012 [facility] pantoprazole 40 mg, Route: IVP , Drug form: INJ, Before Breakfast, Dosing Weight 95, kg, Priority: Routine, Start date: 06/24/12 7:30:00, Duration: 30 day, Stop date: 07/23/12 7:30:00 IVP No Longer Active [facility] 06/24/2012 [facility] nitroglycerin 0.4 mg sublingual tablet 0.4 mg, 1 tab, Route: SL, Drug form: TAB, Q5Min, PRN Chest Pain, Start date: 06/24/12 0:03:00, Duration: 30 day, Stop date: 07/24/12 0:02:00 SL No Longer Active [facility] 06/24/2012 [facility] atropine 0.5 mg, 5 mL, Route: IVP, Drug form: INJ, PRN, PRN Bradycardia, Start date: 06/24/12 0:03:00, Duration: 30 day, Stop date: 07/24/12 0:02:00 IVP No Longer Active [facility] 06/24/2012 [facility] Rocephin + Sodium Chloride 0.9% IV 100 mL 1 gm, Route: IVPB, Drug form: PDR/INJ, Q24H, Dosing Weight 95, kg, Priority: Routine, Start date: 06/23/12 23:00:00, Duration: 30 day, Stop date: 07/22/12 23:00:00 [facility] normal saline 0.9% IV 1,000 mL 1,000 mL, Rate: 100 ml/hr, Infuse over: 10 hr, Route: IV, kg, Total Volume: 1,000, Start date: 06/23/12 22:20:00, Stop date: 06/24/12 23:31:00 IV No Longer Active [facility] 06/24/2012 [facility] acetaminophen 650 mg, 2 tab, R oute: PO, Drug form: TAB, Q8H, Dosing Weight 95, kg, PRN Pain/Fever, Start date: 06/23/12 22:20:00, Duration: 30 day, Stop date: 07/23/12 22:19:00 PO No Longer Active [facility] 06/24/2012 [facility] ondansetron 4 mg, 2 mL, Route: IVP, Drug form: INJ, Q6H, Dosing Weight 95, kg, PRN Nausea & Vomiting, Start date: 06/23/12 22:20:00, Duration: 30 day, Stop date: 07/23/12 22:19:00 IVP No Longer Active [facility] 06/24/2012 [facility] Saline Flush 0.9% 5 ml, Route: IVP, Drug Form: INJ, Dosing Weight 95, kg, PRN, PRN Line Flush, Start date: 06/23/12 22:20:00, Duration: 30 day, Stop date: 07/23/12 22:19:00 IVP No Longer Active [facility] 06/24/2012 [facility] aspirin 81 mg tablet, chewable 81 mg, 1 tab, Route: PO, Drug form: CHEWTAB, Q24H, Dosing Weight 95, kg, Start date: 06/23/12 22:00:00, Duration: 30 day, Stop date: 07/22/12 22:00:00 PO No Longer Active [facility] 06/24/2012 [facility] Dextrose 50% Syringe 25 gm, 50 mL, Route: IVP, Drug Form: INJ, Dosing Weight 95, kg, PRN, PRN Blood Glucose Results, Start date: 06/23/12 21:35:00, Duration: 30 day, Stop date: 07/23/12 21:34:00 IVP No Longer Active [facility] 06/24/2012 [facility] glucagon 1 mg, Route: IM, Drug form: PDR/INJ, PRN, Dosing Weight 95, kg, PRN Blood Glucose Results, Start date: 06/23/12 21:35:00, Duration: 30 day, Stop date: 07/23/12 21:34:00 IM No Longer Active [facility] 06/24/2012 [facility] insulin aspart 1 unit, 0.01 mL , Route: SUB-Q, Drug form: SOLN, TID-Before Meals, Dosing Weight 95, kg, PRN Blood Glucose Results, Start date: 06/23/12 21:35:00, Duration: 30 day, Stop date: 07/23/12 21:34:00 SUB-Q No Longer Active [facility] 10/2011 [facility] chlorthalidone 25 mg oral tablet 12.5 mg, 0.5 tab, PO, Daily, Substitution Allowed PO Active 06/24/2012 [facility] Cycloset 0.8 mg oral tablet 3. 2 mg, 4 tab, PO, After Breakfast, 2 hours after breakfast, Substitution Allowed2 hours after breakfast PO Active [facility] 10/2011 [facility] Calcium 600 +D oral tablet 1 t ab, PO, Daily, Substitution Allowed, Maintenance PO Active 06/24/2012 [facility] metoprolol 50 mg oral tablet, extended release 50 mg, 1 tab, PO, BID, Substitution Allowed PO Active 06/24/2012 [facility] Cycloset Substitution Allowed No Longer Active 06/24/2012 [facility] Osteo Bi-Flex 1 tab, PO, Daily , Substitution Allowed, Maintenance PO Active 06/24/2012 [facility] Vitamin D3 1000 intl units oral capsule 1,000 IntlUnit, 1 cap, PO, Daily, 100 cap, Substitution Allowed, CAP PO Active 06/24/2012 [facility] aspirin 81 mg tablet, chewable 81 mg, 1 tab, PO, Daily, 30 tab, Substitution Allowed, CHEWTAB PO Active [facility] 06/24/2012 [facility] Levemir FlexPen 15 unit, SUB-Q , Bedtime, Substitution Allowed SUB-Q Active 06/24/2012 [facility] Byetta 5 mcg/0.02 mL subcutaneous solution 5 microgram, 0.02 mL, SUB-Q, Daily, Substitution Allowed SUB-Q Active 06/24/2012 [facility] atorvastatin 10 mg oral tablet 10 mg, 1 tab, PO, QAM, 30 tab, Substitution Allowed, TAB PO Active 06/24/2012 [facility] amLODipine 5 mg oral tablet 5 mg, 1 tab, PO, BID, Substitution Allowed PO Active 06/24/2012 [facility] Diovan 320 mg oral tablet 320 mg, 1 tab, PO, Daily, 30 tab, Substitution Allowed, TAB PO Active 06/24/2012 [facility] metoprolol 50 mg oral tablet 5 0 mg, 1 tab, PO, BID, 180 tab, Substitution Allowed, TAB PO No Longer Active 06/24/2012 [facility] glimepiride 4 mg oral tablet 4 mg, 1 tab, PO, BID, Substitution Allowed PO Active 06/24/2012 [facility] ciprofloxacin 400 mg, Route: I VPB, ONCE, Dosing Weight 95, kg, Priority: STAT, Start date: 06/23/12 18:28:00, Stop date: 06/23/12 18:28:00 IVPB No Longer Active [facility] 06/24/2012 [facility] Sodium Chloride 0.9% IV 1,000 mL 1,000 mL, Rate: 100 ml/hr, Infuse over: 10 hr, Route: IV, kg, Total Volume: 1,000, Start date: 06/23/12 18:27:00, Duration: 30 day, Stop date: 07/23/12 18:26:00 IV No Longer Active [facility] 06/24/2012 [facility] Motrin 800 mg, Route: PO, Drug form: TAB, ONCE, Dosing Weight 95, kg, Priority: STAT, Start date: 06/23/12 17:28:00, Stop date: 06/23/12 17:28:00 PO No Longer Active [facility] 06/23/2012 [facility] Zofran ODT 4 mg oral tablet, disintegrating 4 mg, 1 tab, PO, BID, PRN, Dissolve tab under tongue, 10 tab, Nausea and Vomiting, Substitution AllowedDissolve tab under tongue PO On Hold [facility] 06/22/2012 [facility] Macrobid 100 mg oral capsule 1 00 mg, 1 cap, PO, BID, 14 cap, Substitution Allowed [facility] Sodium Chloride 0.9% (Bolus) IV 1,000 mL 1,000 mL, Rate: 1,000 ml/hr, Infuse over: 1 hr, Route: IV, Dosing Weight 95 kg, Total Volume: 1,000, Bolus dose, Priority: STAT, Start date: 06/22/12 9:07:00, Duration: 1 doses or times, Stop date: 06/22/12 10:06:00 IV No Longer Active [facility] 06/22/2012 [facility] Saline Flush 0.9% 5 mL, Route: IVP, Dosing Weight 95, kg, PRN, PRN Line Flush, Start date: 06/22/12 9:07:00, Duration: 24 hr, Stop date: 06/23/12 9:06:00 IVP No Longer Active [facility] 06/22/2012 [facility] ondansetron 4 mg, Route: IVP, ONCE, Dosing Weight 95, kg, Priority: STAT, Start date: 06/22/12 9:07:00, Stop date: 06/22/12 9:07:00 IVP No Longer Active [facility] 08/2011 [facility] Atorvastatin Calcium 10 MG Oral Tablet (Active) Active [facility] Levemir SOLN (Active) Active [facility] Metoprolol Succinate ER 50 MG Oral Table t Extended Release 24 Hour (Active) A ctive [facility] Diovan 320 MG Oral Tablet (Ac tive) Active [facility] AmLODIPine Besylate 5 MG Oral Tablet (Active) Active [facility] Byetta 5 MCG Pen SOLN (Active) Active [facility] NovoLOG FlexPen SOLN (Active) Active [facility] Aspirin 81 MG Oral Tablet (Ac [...] wait the 15 min after injection. Medical [facility] influenza virus vaccine, inactivated<sup>2</sup> 09/03/2012 completed Cid Admin Note: PATIENT S TATES RECEIVED IN APRIL OF 2012 AT [facility] influenza virus vaccine, inactivated<sup>1</sup> 09/03/2012 completed Cid Admin Note: PATIENT S TATES RECEIVED IN APRIL OF 2012 AT [facility], SARAH Hahn, SARAH Ricketts,[facility], SARAH [place] influenza virus vaccine, inactivated<sup>1</sup> 09/03/2012 completed Cid 1PATIENT STATES RECEI BERTHA IN APRIL OF 2012 AT [facility] Results Order Name Results Value Reference Range Date Interpretation Comments Source CHEM PANEL Glucose Lvl 97 65 - 99 12/16/2019 Result Comment:
Fasting reference interval

Lab test performed by:
[facility]
[address]
[place] [address]
Neri Padmini [facility] CHEM PANEL BUN 19 7 - 25 12/16/2019 [facility] CHEM PANEL Creatinine Lvl 0.95 0.60 - 0.88 12/16/2019 Result Comment: For patients >49 years o f age, the reference limit
for Creatinine is approximately 13% higher for people
identified as -[place]. [facility] CHEM PANEL eGFR NON-AFR. [place] 54 > OR = 60 mL/min/1.73m2 2019 [facility] CHEM PANEL eGFR 63 > OR = 60 mL/min/1.73m2 2019 [facility] CHEM PANEL B/C Ratio 20 6 - 22 12/16/2019 [facility] CHEM PANEL Sodium Lvl 147 135 - 146 12/16/2019 [facility] CHEM PANEL Potassium Lvl 3.3 3.5 - 5.3 12/16/2019 [facility] CHEM PANEL Chloride Lvl 108 98 - 110 12/16/2019 [facility] CHEM PANEL CO2 27 20 - 32 12/16/2019 [facility] CHEM PANEL Calcium Lvl 9.5 8.6 - 10.4 12/16/2019 [facility] CHEM PANEL Total Protein 5.9 6.1 - 8.1 12/16/2019 [facility] CHEM PANEL Albumin Lvl 3.5 3.6 - 5.1 12/16/2019 [facility] CHEM PANEL Globulin 2.4 1.9 - 3.7 12/16/2019 [facility] CHEM PANEL A/G Ratio 1.5 1.0 - 2.5 12/16/2019 [facility] CHEM PANEL Bili Total 0.7 0.2 - [...] D2 and D3 fractions is required, the [facility]()
25-OH VIT D, (D2,D3), LC/MS/MS is recommended: order
code 99231 (patients >2yrs).
See Note 1

Note 1

For additional information, please refer to
http://education.SolarGreen/faq/XWO878
(This link is being provided for informational/
educational purposes only.)

Lab test performed by:
[facility]
[address] [place] [address]
[place] [address]
Neri Cisse [facility] HEMATOLOGY WBC X 10x3 7.4 3.8 - 10.8 12/16/2019 Result Comment:
Lab test perf ormed by:
[facility]
[address] [place] [address]
[place] [address]
Neri Cisse [facility] HEMATOLOGY RBC X 10x6 4.14 3.80 - 5.10 12/16/2019 [facility] HEMATOLOGY Hgb 12.8 11.7 - 15.5 12/16/2019 [facility] HEMATOLOGY Hct 38.1 35.0 - 45.0 12/16/2019 [facility] HEMATOLOGY MCV 92.0 80.0 - 100.0 12/16/2019 [facility] HEMATOLOGY MCH 30.9 27.0 - 33.0 12/16/2019 [facility] HEMATOLOGY MCHC 33.6 32.0 - 36.0 12/16/2019 [facility] HEMATOLOGY RDW 13.9 11.0 - 15.0 12/16/2019 [facility] HEMATOLOGY Platelet 282 140 - 400 12/16/2019 [facility] HEMATOLOGY MPV 9.9 7.5 - 12.5 12/16/2019 [facility] HEMATOLOGY Neutrophils # 5654 1500 - 7800 12/16/2019 [facility] HEMATOLOGY Lymphocytes # 1043 850 - 3900 12/16/2019 [facility] HEMATOLOGY Monocytes # 555 200 - 950 12/16/2019 [facility] HEMATOLOGY Eosinophils # 118 15 - 500 12/16/2019 [facility] HEMATOLOGY Basophils # 30 0 - 200 12/16/2019 [facility] HEMATOLOGY Segs 76.4 12/16/2019 [facility] HEMATOLOGY Lymphocytes 14.1 12/16/2019 [facility] HEMATOLOGY Monocytes 7.5 12/16/2019 [facility] HEMATOLOGY Eosinophils 1.6 12/16/2019 [facility] HEMATOLOGY Basophils 0.4 12/16/2019 [facility] LIPIDS Chol 121 <200 mg/dL 12/16/2019 Result Comment:
Lab test performed by:
[facility]
[address] [place] [address]
[place] [address]
Neri Cisse [facility] LIPIDS HDL 46 > OR = 50 mg/dL 12/16/2019 [facility] LIPIDS Trig 126 <150 mg/dL 12/16/2019 [facility] LIPIDS LDL (Calculated) 54 12/16/2019 Result Comment: [...] C.
Bob HARMON et al. RUKHSANA. 2013;310(19): 7961-0510
(http://[employer].SolarGreen/faq/WOF285) [facility] LIPIDS CHD Risk 2.6 <5.0 (CALC) 12/16/2019 [facility] LIPIDS Non HDL Chol 75 <130 mg/dL 12/16/2019 Result Comment: For patients with diabet es plus 1 major ASCVD risk
factor, treating to a non-HDL-C goal of <100 mg/dL
(LDL-C of <70 mg/dL) is considered a therapeutic
option. [facility] SPECIAL CHEMISTRY Hgb A1C 6.7 <5.7 % [...] diabetes for children.

Lab test performed by:
[facility]
[address] [place] [address]
[place] [address]
Neri Cisse [facility] CHEM PANEL A/G Ratio 1.4 1.0 - 2.5 07/04/2018 [facility] CHEM PANEL Bili Total 0.5 0.2 - 1.2 07/04/2018 [facility] CHEM PANEL ASPARTATE TRANSAMINASE 22 10 - 35 07/04/2018 [facility] CHEM PANEL Alk Phos 105 33 - 130 07/04/2018 [facility] CHEM PANEL Globulin 2.7 1.9 - 3.7 07/04/2018 [facility] CHEM PANEL ALANINE AMINOTRANSFERASE 12 6 - 29 07/04/2018 [facility] CHEM PANEL Total Protein 6.5 6.1 - 8.1 07/04/2018 [facility] CHEM PANEL Albumin Lvl 3.8 3.6 - 5.1 07/04/2018 [facility] CHEM PANEL CO2 25 20 - 32 07/04/2018 [facility] CHEM PANEL Calcium Lvl 10.0 8.6 - 10.4 07/04/2018 [facility] CHEM PANEL Chloride Lvl 105 98 - 110 07/04/2018 [facility] CHEM PANEL eGFR 31 > OR = 60 mL/min/1.73m2 2017 [facility] CHEM PANEL B/C Ratio 32 6 - 22 07/04/2018 [facility] CHEM PANEL Sodium Lvl 141 135 - 146 07/04/2018 [facility] CHEM PANEL Potassium Lvl 5.0 3.5 - 5.3 07/04/2018 [facility] CHEM PANEL Glucose Lvl 147 65 - 99 07/04/2018 Result Comment:
Fasting reference interval

For someone without known diabetes, a glucose
value >125 mg/dL indicates that they may have
diabetes and this should be confirmed with a
follow-up test.

Lab test performed by:
[facility]
[address] [place] [address]
[place] [address]
Temitope Comer [facility] CHEM PANEL BUN 54 7 - 25 07/04/2018 [facility] CHEM PANEL eGFR NON-AFR. [place] 27 > OR = 60 mL/min/1.73m2 2017 [facility] CHEM PANEL Creatinine Lvl 1.71 0.60 - 0.88 07/04/2018 Result Comment: For patients >49 years o f age, the reference limit
for Creatinine is approximately 13% higher for people
identified as -[place]or[place]. [facility] HEMATOLOGY Monocytes 6.1 07/04/2018 [facility] HEMATOLOGY Basophils 0.7 07/04/2018 [facility] HEMATOLOGY Eosinophils 1.8 07/04/2018 [facility] HEMATOLOGY Lymphocytes 21.1 07/04/2018 [facility] HEMATOLOGY Segs 70.3 07/04/2018 [facility] HEMATOLOGY Eosinophils # 162 15 - 500 07/04/2018 [facility] HEMATOLOGY Basophils # 63 0 - 200 07/04/2018 [facility] HEMATOLOGY MCHC 34.2 32.0 - 36.0 07/04/2018 [facility] HEMATOLOGY Monocytes # 549 200 - 950 07/04/2018 [facility] HEMATOLOGY Platelet 317 140 - 400 07/04/2018 [facility] HEMATOLOGY RDW 13.1 11.0 - 15.0 07/04/2018 [facility] HEMATOLOGY Neutrophils # 9377 2078 - 0470 07/04/2018 [facility] HEMATOLOGY Lymphocytes # 0619 353 - 9827 07/04/2018 [facility] HEMATOLOGY MPV 11.0 7.5 - 12.5 07/04/2018 [facility] HEMATOLOGY WBC X 10x3 9.0 3.8 - 10.8 07/04/2018 Result Comment:
Lab test perf ormed by:
[facility]
[address]
[place] [address]
Temitope Segoviany [facility] HEMATOLOGY MCH 30.9 27.0 - 33.0 07/04/2018 [facility] HEMATOLOGY Hct 40.1 35.0 - 45.0 07/04/2018 [facility] HEMATOLOGY MCV 90.5 80.0 - 100.0 07/04/2018 [facility] HEMATOLOGY Hgb 13.7 11.7 - 15.5 07/04/2018 [facility] HEMATOLOGY RBC X 10x6 4.43 3.80 - 5.10 07/04/2018 [facility] LIPIDS Non HDL Chol 90 <130 mg/dL 07/04/2018 Result Comment: For patients with diabet es plus 1 major ASCVD risk
factor, treating to a non-HDL-C goal of <100 mg/dL
(LDL-C of <70 mg/dL) is considered a therapeutic
option. [facility] LIPIDS LDL (Calculated) 63 07/04/2018 Result Comment: [...] LDL- C.
Bob HARMON et al. RUKHSANA. 2013;310(76): 4341-6644
(http://education.SolarGreen/faq/JAV530) [facility] LIPIDS HDL 48 >50 mg/dL 07/04/2018 [facility] LIPIDS Trig 202 <150 mg/dL 07/04/2018 [facility] LIPIDS CHD Risk 2.9 <5.0 (CALC) 07/04/2018 [facility] LIPIDS Chol 138 <200 mg/dL 07/04/2018 Result Comment:
Lab test performed by:
[facility]
[address] [place] [address]
[place] [address]
Temitope Comer [facility] SPECIAL CHEMISTRY Hgb A1C 6.8 <5.7 % [...]

FASTING:YES

FASTING: YES

Lab test performed by:
[facility]
[address] [place] [address]
[place] [address]
Temitope Comer [facility] URINE CHEM U Alb/Crea 54 <30 mcg/mg [...] Result Comment:
Lab test perf ormed by:
[facility]
[address]
[place] [address]
Temitope Adam Souleymane [facility] URINE CHEM U Alb 4.6 See Note: mg/dL 07/04/2018 Result Comment: Reference Range:

Reference Range
Not established Medical [facility] CHEM PANEL Alk Phos 98 39 - 117 12/03/2017 [facility] CHEM PANEL Bili Total 0.4 0.0 - 1.2 12/03/2017 [facility] CHEM PANEL ALANINE AMINOTRANSFERASE 15 0 - 32 12/03/2017 [facility] CHEM PANEL ASPARTATE TRANSAMINASE 23 0 - 40 12/03/2017 [facility] CHEM PANEL Chloride Lvl 107 96 - 106 12/03/2017 [facility] CHEM PANEL Potassium Lvl 5.0 3.5 - 5.2 12/03/2017 [facility] CHEM PANEL Sodium Lvl 143 134 - 144 12/03/2017 [facility] CHEM PANEL Total Protein 6.9 6.0 - 8.5 12/03/2017 [facility] CHEM PANEL Calcium Lvl 10.0 8.7 - 10.3 12/03/2017 [facility] CHEM PANEL CO2 20 18 - 29 12/03/2017 [facility] CHEM PANEL B/C Ratio 21 12 - 28 12/03/2017 [facility] CHEM PANEL Creatinine Lvl 1.64 0.57 - 1.00 12/03/2017 [facility] CHEM PANEL BUN 35 8 - 27 12/03/2017 [facility] CHEM PANEL Glucose Lvl 173 65 - 99 12/03/2017 [facility] CHEM PANEL A/G Ratio 1.2 1.2 - 2.2 12/03/2017 [facility] CHEM PANEL Globulin 3.1 1.5 - 4.5 12/03/2017 [facility] CHEM PANEL Albumin Lvl 3.8 3.5 - 4.7 12/03/2017 [facility] HEMATOLOGY Immature Cells # 0.0 0.0 - 0.1 12/03/2017 [facility] HEMATOLOGY Immature Grans % 1 Not Estab. % 12/03/2017 [facility] HEMATOLOGY Basophils # 0.0 0.0 - 0.2 12/03/2017 [facility] HEMATOLOGY Eosinophils # 0.1 0.0 - 0.4 12/03/2017 [facility] HEMATOLOGY Monocytes # 0.4 0.1 - 0.9 12/03/2017 [facility] HEMATOLOGY Eosinophils 2 Not Estab. % 12/03/2017 [facility] HEMATOLOGY Monocytes 7 Not Estab. % 12/03/2017 [facility] HEMATOLOGY Lymphocytes 32 Not Estab. % 12/03/2017 [facility] HEMATOLOGY Segs 57 Not Estab. % 12/03/2017 [facility] HEMATOLOGY Platelet 318 150 - 379 12/03/2017 [facility] HEMATOLOGY RDW 14.6 12.3 - 15.4 12/03/2017 [facility] HEMATOLOGY Lymphocytes # 1.8 0.7 - 3.1 12/03/2017 [facility] HEMATOLOGY Segs-Bands # 3.2 1.4 - 7.0 12/03/2017 [facility] HEMATOLOGY Basophils 1 Not Estab. % 12/03/2017 [facility] HEMATOLOGY MCHC 31.9 31.5 - 35.7 12/03/2017 [facility] HEMATOLOGY WBC X 10x3 5.6 3.4 - 10.8 12/03/2017 [facility] HEMATOLOGY MCH 30.3 26.6 - 33.0 12/03/2017 [facility] HEMATOLOGY MCV 95 79 - 97 12/03/2017 [facility] HEMATOLOGY Hct 40.1 34.0 - 46.6 12/03/2017 [facility] HEMATOLOGY Hgb 12.8 11.1 - 15.9 12/03/2017 [facility] HEMATOLOGY RBC X 10x6 4.22 3.77 - 5.28 12/03/2017 [facility] SPECIAL CHEMISTRY Hgb A1C 8.0 4.8 - 5.6 12/03/2017 Result Comment: Pre-diabetes: 5 .7 - 6.4
Diabetes: >6.4
Glycemic control for adults with diabetes: <7.0 [facility] CHEM PANEL Vitamin D, 25-OH, Total 4 5.9 30.0 - 100.0 07/30/2016 Result Comment: Vitamin D deficiency has been defined by the [place] of
Medicine and an Endocrine Society practice guideline as a
level of serum 25-OH vitamin D less than 20 ng/mL (1,2).
The Endocrine Society went on to further define vitamin D
insufficiency as a level between 21 and 29 ng/mL (2).
1. IOM ([place] of [employer]). 2010. Dietary referen ce
intakes for calcium and D. [place]: The
National [employer]Perfusix Press.
2. Alan MF, Ty LAZARO, Keely PERRY, et al.
Evaluation, treatment, and prevention of vitamin D
deficiency: an Endocrine Society clinical practice
guideline. JCEM. 2010; 96(7):1911-30.
A duplicate report has been generated due to demographic updates.
[facility] [place]
[address] [facility]

[place]
[phone]
[id number]

Aurora fuller
Steve

Medical Group ELECTROLYTES Chloride Lvl 103 96 - 106 07/30/2016 [facility] ELECTROLYTES Calcium Lvl 9.5 8.7 - 10.3 07/30/2016 [facility] ELECTROLYTES CO2 21 18 - 29 07/30/2016 [facility] ELECTROLYTES Creatinine Lvl 1.4 0 0.57 - 1.00 07/30/2016 [facility] ELECTROLYTES B/C Ratio 21 11 - 26 07/30/2016 [facility] ELECTROLYTES Sodium Lvl 145 134 - 144 07/30/2016 [facility] ELECTROLYTES Potassium Lvl 4.6 3.5 - 5.2 07/30/2016 [facility] ELECTROLYTES Glucose Lvl 110 65 - 99 07/30/2016 [facility] ELECTROLYTES BUN 30 8 - 27 07/30/2016 [facility] ELECTROLYTES Bili Total 0.4 0.0 - 1.2 07/30/2016 [facility] ELECTROLYTES Albumin Lvl 3.9 3.5 - 4.7 07/30/2016 [facility] ELECTROLYTES Globulin 2.2 1.5 - 4.5 07/30/2016 [facility] ELECTROLYTES Total Protein 6.1 6.0 - 8.5 07/30/2016 [facility] ELECTROLYTES A/G Ratio 1.8 1.1 - 2.5 07/30/2016 [facility] ELECTROLYTES Alk Phos 113 39 - 117 07/30/2016 [facility] ELECTROLYTES ALANINE AMINOTRANSFERAS E 13 0 - 32 07/30/2016 [facility] ELECTROLYTES ASPARTATE TRANSAMINASE 24 0 - 40 07/30/2016 [facility] HEMATOLOGY Basophils 1 07/30/2016 [facility] HEMATOLOGY Monocytes 7 07/30/2016 [facility] HEMATOLOGY Eosinophils 3 07/30/2016 [facility] HEMATOLOGY Neutrophils # 3.9 1.4 - 7.0 07/30/2016 [facility] HEMATOLOGY MCH 31.1 26.6 - 33.0 07/30/2016 [facility] HEMATOLOGY Platelet 284 150 - 379 07/30/2016 [facility] HEMATOLOGY Segs 51 07/30/2016 [facility] HEMATOLOGY MCHC 33.5 31.5 - 35.7 07/30/2016 [facility] HEMATOLOGY RDW 14.4 12.3 - 15.4 07/30/2016 [facility] HEMATOLOGY Immature Cells # 0.0 0.0 - 0.1 07/30/2016 [facility] HEMATOLOGY Monocytes # 0.5 0.1 - 0.9 07/30/2016 [facility] HEMATOLOGY Eosinophils # 0.2 0.0 - 0.4 07/30/2016 [facility] HEMATOLOGY Lymphocytes # 2.8 0.7 - 3.1 07/30/2016 [facility] HEMATOLOGY Basophils # 0.0 0.0 - 0.2 07/30/2016 [facility] HEMATOLOGY Immature Grans % 0 07/30/2016 [facility] HEMATOLOGY WBC X 10x3 7.5 3.4 - 10.8 07/30/2016 [facility] HEMATOLOGY Lymphocytes 38 07/30/2016 [facility] HEMATOLOGY RBC X 10x6 4.25 3.77 - 5.28 07/30/2016 [facility] HEMATOLOGY MCV 93 79 - 97 07/30/2016 [facility] HEMATOLOGY Hgb 13.2 11.1 - 15.9 07/30/2016 [facility] HEMATOLOGY Hct 39.4 34.0 - 46.6 07/30/2016 [facility] LIPIDS Trig 116 0 - 149 07/30/2016 [facility] LIPIDS Chol 132 100 - 199 07/30/2016 [facility] LIPIDS HDL 61 >39 mg/dL 07/30/2016 [facility] LIPIDS VLDL 23 5 - 40 07/30/2016 [facility] LIPIDS LDL/HDL RATIO 0.8 0.0 - 3.2 07/30/2016 Result Comment: LDL/HDL Ratio
Men Women
1/2 Avg.Risk 1.0 1.5
Avg.Risk 3.6 3.2
2X Avg.Risk 6.2 5.0< br/> 3X Avg.Risk 8.0 6.1 [facility] LIPIDS LDL (Calculated) 48 0 - 99 07/30/2016 [facility] SPECIAL CHEMISTRY Hgb A1C 6.8 4.8 - 5.6 07/30/2016 Result Comment: Pre-diabetes: 5 .7 - 6.4
Diabetes: >6.4
Glycemic control for adults with diabetes: <7.0 [facility] CHEM PANEL Vitamin D, 25-OH, Total 5 1.6 30.0 - 100.0 04/30/2016 Result Comment: Vitamin D deficiency has been defined by the [place] of
Medicine and an Endocrine Society practice guideline as a
level of serum 25-OH vitamin D less than 20 ng/mL (1,2).
The Endocrine Society went on to further define vitamin D
insufficiency as a level between 21 and 29 ng/mL (2).
1. IOM ([place] of [employer]). 2010. Dietary referen ce
intakes for calcium and D. [place]: The
National Academies Press.
2. Alan MF, Ty NC, Keely PERRY, et al.
Evaluation, treatment, and prevention of vitamin D
deficiency: an Endocrine Society clinical practice
guideline. JCEM. 2010; 96(7):1911-30.
A duplicate report has been generated due to demographic updates.
[facility] [place]
[address] [facility]

[place]
[id number]
[phone]

Aurora fuller
Steve

[facility] URINE CHEM U Creat mg/dL 62.7 Not Estab. mg/dL 04/30/2016 [facility] URINE CHEM U Alb/Crea 27.6 0.0 - 30.0 04/30/2016 [facility] URINE CHEM U Alb 17.3 Not Estab. microgram/mL 04/30/2016 [facility] CHEM PANEL eGFR 42 04/16/2016 Result Comment: [...] should be multiplied by the estimated BMI. [facility] CHEM PANEL Albumin Lvl 3.1 3.5 - 5.0 04/16/2016 [facility] CHEM PANEL ALT 31 0 - 65 04/16/2016 [facility] CHEM PANEL Total Protein 6.9 6.4 - 8.4 04/16/2016 [facility] CHEM PANEL Bili Total 0.6 0.2 - 1.3 04/16/2016 [facility] CHEM PANEL Alk Phos 181 39 - 136 04/16/2016 [facility] CHEM PANEL AST 28 0 - 37 04/16/2016 [facility] CHEM PANEL Creatinine Lvl 1.20 0.50 - 1.40 04/16/2016 [facility] CHEM PANEL BUN 17 7 - 22 04/16/2016 [facility] CHEM PANEL Glucose Lvl 109 70 - 99 04/16/2016 [facility] CHEM PANEL Potassium Lvl 3.9 3.5 - 5.1 04/16/2016 [facility] CHEM PANEL Sodium Lvl 144 135 - 145 04/16/2016 [facility] CHEM PANEL Calcium Lvl 9.2 8.5 - 10.5 04/16/2016 [facility] CHEM PANEL CO2 26 24 - 32 04/16/2016 [facility] CHEM PANEL Chloride Lvl 111 95 - 109 04/16/2016 [facility] CHEM PANEL A/G Ratio 0.8 0.7 - 1.6 04/16/2016 [facility] CHEM PANEL Globulin 3.8 2.7 - 4.2 04/16/2016 [facility] CHEM PANEL B/C Ratio 14 6 - 25 04/16/2016 [facility] CHEM PANEL AGAP 10.9 10.0 - 20.0 04/16/2016 [facility] HEMATOLOGY MPV 8.0 7.4 - 10.4 04/16/2016 [facility] HEMATOLOGY MCH 31.1 27.0 - 31.0 04/16/2016 [facility] HEMATOLOGY MCV 92.3 80.0 - 98.0 04/16/2016 [facility] HEMATOLOGY MCHC 33.6 32.0 - 36.0 04/16/2016 [facility] HEMATOLOGY RDW 14.1 11.5 - 14.5 04/16/2016 [facility] HEMATOLOGY Platelet 383 133 - 450 04/16/2016 [facility] HEMATOLOGY WBC 9.2 3.7 - 10.4 04/16/2016 [facility] HEMATOLOGY Hct 35.7 36.0 - 48.0 04/16/2016 [facility] HEMATOLOGY RBC 3.87 4.20 - 5.40 04/16/2016 [facility] HEMATOLOGY Hgb 12.0 12.0 - 16.0 04/16/2016 [facility] HEMATOLOGY Basophils 0.7 0.0 - 1.0 04/16/2016 [facility] HEMATOLOGY Segs-Bands # 6.8 1.5 - 8.1 04/16/2016 [facility] HEMATOLOGY Eosinophils 2.9 0.0 - 4.0 04/16/2016 [facility] HEMATOLOGY Monocytes 6.7 2.0 - 12.0 04/16/2016 [facility] HEMATOLOGY Eosinophils # 0.3 0.0 - 0.5 04/16/2016 [facility] HEMATOLOGY Monocytes # 0.6 0.0 - 0.8 04/16/2016 [facility] HEMATOLOGY Lymphocytes # 1.5 1.0 - 5.5 04/16/2016 [facility] HEMATOLOGY Basophils # 0.1 0.0 - 0.2 04/16/2016 [facility] HEMATOLOGY Segs 73.5 45.0 - 75.0 04/16/2016 [facility] HEMATOLOGY Lymphocytes 16.2 20.0 - 40.0 04/16/2016 [facility] CHEM PANEL eGFR 30 04/09/2016 Result Comment: [...] should be multiplied by the estimated BMI. [facility] CHEM PANEL CO2 17 24 - 32 04/09/2016 [facility] CHEM PANEL Chloride Lvl 115 95 - 109 04/09/2016 [facility] CHEM PANEL Calcium Lvl 8.2 8.5 - 10.5 04/09/2016 [facility] CHEM PANEL AGAP 15.4 10.0 - 20.0 04/09/2016 [facility] CHEM PANEL Glucose Lvl 135 70 - 99 04/09/2016 [facility] CHEM PANEL Potassium Lvl 4.4 3.5 - 5.1 04/09/2016 [facility] CHEM PANEL Sodium Lvl 143 135 - 145 04/09/2016 [facility] CHEM PANEL Creatinine Lvl 1.59 0.50 - 1.40 04/09/2016 [facility] CHEM PANEL BUN 42 7 - 22 04/09/2016 [facility] CHEM PANEL Magnesium Lvl 2.0 1.8 - 2.4 04/09/2016 [facility] CHEM PANEL Phosphorus 3.1 2.5 - 4.5 04/09/2016 [facility] HEMATOLOGY Segs 82.1 45.0 - 75.0 04/09/2016 [facility] HEMATOLOGY Lymphocytes 9.1 20.0 - 40.0 04/09/2016 [facility] HEMATOLOGY Monocytes 7.8 2.0 - 12.0 04/09/2016 [facility] HEMATOLOGY Monocytes # 0.8 0.0 - 0.8 04/09/2016 [facility] Eosinophils # 0.1 0.0 - 0.5 04/09/2016 [facility] Segs-Bands # 8.6 1.5 - 8.1 04/09/2016 [facility] Lymphocytes # 1.0 1.0 - 5.5 04/09/2016 [facility] Basophils 0.3 0.0 - 1.0 04/09/2016 [facility] Eosinophils 0.7 0.0 - 4.0 04/09/2016 [facility] RDW 14.2 11.5 - 14.5 04/09/2016 [facility] Platelet 199 133 - 450 04/09/2016 [facility] MPV 9.1 7.4 - 10.4 04/09/2016 [facility] MCHC 33.5 32.0 - 36.0 04/09/2016 [facility] MCH 31.6 27.0 - 31.0 04/09/2016 [facility] MCV 94.2 80.0 - 98.0 04/09/2016 [facility] Hgb 11.0 12.0 - 16.0 04/09/2016 [facility] RBC 3.50 4.20 - 5.40 04/09/2016 [facility] Hct 33.0 36.0 - 48.0 04/09/2016 [facility] WBC 10.5 3.7 - 10.4 04/09/2016 [facility] CHEM PANEL eGFR 21 04/08/2016 Result Comment: [...] should be multiplied by the estimated BMI. [facility] CHEM PANEL BUN 54 7 - 22 04/08/2016 [facility] CHEM PANEL Creatinine Lvl 2.16 0.50 - 1.40 04/08/2016 [facility] CHEM PANEL Sodium Lvl 140 135 - 145 04/08/2016 [facility] CHEM PANEL Glucose Lvl 195 70 - 99 04/08/2016 [facility] CHEM PANEL Chloride Lvl 111 95 - 109 04/08/2016 [facility] CHEM PANEL Potassium Lvl 4.6 3.5 - 5.1 04/08/2016 [facility] CHEM PANEL CO2 19 24 - 32 04/08/2016 [facility] CHEM PANEL Calcium Lvl 8.2 8.5 - 10.5 04/08/2016 [facility] CHEM PANEL AGAP 14.6 10.0 - 20.0 04/08/2016 [facility] CHEM PANEL Magnesium Lvl 2.0 1.8 - 2.4 04/08/2016 [facility] CHEM PANEL Phosphorus 3.5 2.5 - 4.5 04/08/2016 [facility] HEMATOLOGY MCHC 31.9 32.0 - 36.0 04/08/2016 [facility] HEMATOLOGY RDW 13.9 11.5 - 14.5 04/08/2016 [facility] HEMATOLOGY MPV 9.1 7.4 - 10.4 04/08/2016 [facility] HEMATOLOGY Platelet 205 133 - 450 04/08/2016 [facility] HEMATOLOGY RBC 3.79 4.20 - 5.40 04/08/2016 [facility] HEMATOLOGY Hgb 11.5 12.0 - 16.0 04/08/2016 [facility] HEMATOLOGY WBC 15.8 3.7 - 10.4 04/08/2016 [facility] HEMATOLOGY MCH 30.3 27.0 - 31.0 04/08/2016 [facility] HEMATOLOGY MCV 94.9 80.0 - 98.0 04/08/2016 [facility] HEMATOLOGY Hct 35.9 36.0 - 48.0 04/08/2016 [facility] HEMATOLOGY Basophils # 0.1 0.0 - 0.2 04/08/2016 [facility] HEMATOLOGY Eosinophils # 0.2 0.0 - 0.5 04/08/2016 [facility] HEMATOLOGY Monocytes # 1.2 0.0 - 0.8 04/08/2016 [facility] HEMATOLOGY Lymphocytes 11.6 20.0 - 40.0 04/08/2016 [facility] HEMATOLOGY Segs 79.2 45.0 - 75.0 04/08/2016 [facility] HEMATOLOGY Lymphocytes # 1.8 1.0 - 5.5 04/08/2016 [facility] HEMATOLOGY Monocytes 7.6 2.0 - 12.0 04/08/2016 [facility] HEMATOLOGY Eosinophils 1.1 0.0 - 4.0 04/08/2016 [facility] HEMATOLOGY Basophils 0.5 0.0 - 1.0 04/08/2016 [facility] HEMATOLOGY Segs-Bands # 12.5 1.5 - 8.1 04/08/2016 [facility] CHEM PANEL eGFR 25 04/07/2016 Result Comment: [...] should be multiplied by the estimated BMI. [facility] CHEM PANEL Creatinine Lvl 1.88 0.50 - 1.40 04/07/2016 [facility] HEMATOLOGY Platelet 211 133 - 450 04/07/2016 [facility] URINE AND STOOL UA Glucose 100 mg/dL Negative mg/dL 04/07/2016 [facility] URINE AND STOOL UA Turbidity Slight Cloudy (04/07/16 7:09 AM) Clear 04/07/2016 [facility] URINE AND STOOL UA Protein 100 mg/dL Negative mg/dL 04/07/2016 [facility] URINE AND STOOL UA Spec Grav 1.020 <=1.030 04/07/2016 [facility] URINE AND STOOL UA pH 6.0 5.0 - 8.0 04/07/2016 [facility] URINE AND STOOL UA Blood Large *ABN* (04/07/16 7:09 AM) Negative 04/07/2016 [facility] URINE AND STOOL UA Urobilinogen 0.2 0.1 - 1.0 04/07/2016 [facility] URINE AND STOOL UA Bili Negative *NA* (04/07/16 7:09 AM) Negative 04/07/2016 [facility] URINE AND STOOL UA Nitrite Positive *ABN* (04/07/16 7:09 AM) Negative 04/07/2016 [facility] URINE AND STOOL UA Ketones Negative *NA* (04/07/16 7:09 AM) Negative 04/07/2016 [facility] URINE AND STOOL UA Leuk Est Large *ABN* (04/07/16 7:09 AM) Negative 04/07/2016 [facility] URINE AND STOOL UA Color Yellow *NA* (04/07/16 7:09 AM) Yellow 04/07/2016 [facility] URINE AND STOOL UA Sq Epi Occasional /LPF Few /LPF 04/07/2016 [facility] URINE AND STOOL UA WBC >100 /HPF 0 - 5 04/07/2016 [facility] URINE AND STOOL UA Bacteria Many /HPF None Seen /HPF 04/07/2016 [facility] URINE AND STOOL UA RBC 21-50 /HPF 0 - 2 04/07/2016 [facility] CARDIAC ENZYMES Troponin-I <0.02 0.00 - 0.40 04/07/2016 [facility] CARDIAC ENZYMES Total CK 91 12 - 191 04/07/2016 [facility] CHEM PANEL Lactic Acid Lvl 1.9 0.5 - 2.2 04/07/2016 [facility] HEMATOLOGY PTT 25.2 22.9 - 35.8 04/07/2016 [facility] HEMATOLOGY PT 13.6 12.0 - 14.7 04/07/2016 [facility] HEMATOLOGY INR 1.01 0.85 - 1.17 04/07/2016 [facility] HEMATOLOGY Segs-Bands # 3.2 1.5 - 8.1 04/07/2016 [facility] HEMATOLOGY Eosinophils 0.4 0.0 - 4.0 04/07/2016 [facility] HEMATOLOGY Basophils 0.3 0.0 - 1.0 04/07/2016 [facility] HEMATOLOGY Lymphocytes # 0.4 1.0 - 5.5 04/07/2016 [facility] HEMATOLOGY Lymphocytes 10.7 20.0 - 40.0 04/07/2016 [facility] HEMATOLOGY Monocytes 0.7 2.0 - 12.0 04/07/2016 [facility] HEMATOLOGY Segs 87.9 45.0 - 75.0 04/07/2016 [facility] HEMATOLOGY MPV 8.5 7.4 - 10.4 04/07/2016 [facility] HEMATOLOGY RDW 14.0 11.5 - 14.5 04/07/2016 [facility] HEMATOLOGY MCH 30.4 27.0 - 31.0 04/07/2016 [facility] HEMATOLOGY MCHC 32.4 32.0 - 36.0 04/07/2016 [facility] HEMATOLOGY MCV 93.8 80.0 - 98.0 04/07/2016 [facility] HEMATOLOGY RBC 4.00 4.20 - 5.40 04/07/2016 [facility] HEMATOLOGY Hgb 12.1 12.0 - 16.0 04/07/2016 [facility] HEMATOLOGY WBC 3.6 3.7 - 10.4 04/07/2016 [facility] HEMATOLOGY Hct 37.5 36.0 - 48.0 04/07/2016 [facility] CHEM PANEL Procalcitonin Lvl 0.35 0.00 - 0.10 04/07/2016 [facility] CHEM PANEL Alk Phos 142 39 - 136 04/07/2016 [facility] CHEM PANEL Bili Total 1.0 0.2 - 1.3 04/07/2016 [facility] CHEM PANEL Globulin 3.6 2.7 - 4.2 04/07/2016 [facility] CHEM PANEL ALT 48 0 - 65 04/07/2016 [facility] CHEM PANEL A/G Ratio 0.9 0.7 - 1.6 04/07/2016 [facility] CHEM PANEL AST 56 0 - 37 04/07/2016 [facility] CHEM PANEL Albumin Lvl 3.3 3.5 - 5.0 04/07/2016 [facility] CHEM PANEL Calcium Lvl 9.0 8.5 - 10.5 04/07/2016 [facility] CHEM PANEL AGAP 9.3 10.0 - 20.0 04/07/2016 [facility] CHEM PANEL Total Protein 6.9 6.4 - 8.4 04/07/2016 [facility] CHEM PANEL B/C Ratio 25 6 - 25 04/07/2016 [facility] CHEM PANEL CO2 24 24 - 32 04/07/2016 [facility] CHEM PANEL Chloride Lvl 110 95 - [...] should be multiplied by the estimated BMI. [facility] CHEM PANEL Glucose Lvl 189 70 - 99 04/06/2016 [facility] CHEM PANEL Creatinine Lvl 1.77 0.50 - 1.40 04/06/2016 [facility] CHEM PANEL BUN 47 7 - 22 04/06/2016 [facility] CHEM PANEL AGAP 15.1 10.0 - 20.0 04/06/2016 [facility] CHEM PANEL Chloride Lvl 112 95 - 109 04/06/2016 [facility] CHEM PANEL Potassium Lvl 5.1 3.5 - 5.1 04/06/2016 [facility] CHEM PANEL CO2 18 24 - 32 04/06/2016 [facility] CHEM PANEL Sodium Lvl 140 135 - 145 04/06/2016 [facility] CARDIAC ENZYMES Total CK 103 12 - 191 04/06/2016 [facility] CARDIAC ENZYMES CK MB 1.2 0.5 - 3.6 04/06/2016 [facility] CARDIAC ENZYMES Troponin-I <0.02 0.00 - 0.40 04/06/2016 [facility] CARDIAC ENZYMES CK MB Index 1.2 0.0 - 2.5 04/06/2016 [facility] CHEM PANEL eGFR 26 04/06/2016 Result Comment: [...] should be multiplied by the estimated BMI. [facility] CHEM PANEL Glucose Lvl 122 70 - 99 04/06/2016 [facility] CHEM PANEL AST 37 0 - 37 04/06/2016 [facility] CHEM PANEL Albumin Lvl 3.6 3.5 - 5.0 04/06/2016 [facility] CHEM PANEL ALT 31 0 - 65 04/06/2016 [facility] CHEM PANEL Calcium Lvl 9.4 8.5 - 10.5 04/06/2016 [facility] CHEM PANEL Total Protein 7.5 6.4 - 8.4 04/06/2016 [facility] CHEM PANEL CO2 18 24 - 32 04/06/2016 [facility] CHEM PANEL Creatinine Lvl 1.80 0.50 - 1.40 04/06/2016 [facility] CHEM PANEL Chloride Lvl 111 95 - 109 04/06/2016 [facility] CHEM PANEL Sodium Lvl 139 135 - 145 04/06/2016 [facility] CHEM PANEL Potassium Lvl 5.8 3.5 - 5.1 04/06/2016 Result Comment: Specimen is moderately h emolyzed. 04/06/2016 14:35 PERRY [facility] CHEM PANEL BUN 50 7 - 22 04/06/2016 [facility] CHEM PANEL B/C Ratio 28 6 - 25 04/06/2016 [facility] CHEM PANEL Globulin 3.9 2.7 - 4.2 04/06/2016 [facility] CHEM PANEL A/G Ratio 0.9 0.7 - 1.6 04/06/2016 [facility] CHEM PANEL Bili Total 0.6 0.2 - 1.3 04/06/2016 [facility] CHEM PANEL AGAP 15.8 10.0 - 20.0 04/06/2016 [facility] CHEM PANEL Alk Phos 136 39 - 136 04/06/2016 [facility] HEMATOLOGY PTT See N ote 1 (04/06/16 2:21 PM) 22.9 - 35.8 04/06/2016 Result Comment: The PTT result of 19.4 should be interpreted with caution due to : CLOTTED SAMPLE. Report and correction called to Glenroy Fonseca by Yehuda Smiley at 04/06/2016 14:56. Recollection is recommended. Read Back Ok. [facility] WBC 20.1 3.7 - 10.4 04/06/2016 [facility] MCV 94.9 80.0 - 98.0 04/06/2016 [facility] MCH 30.9 27.0 - 31.0 04/06/2016 [facility] MCHC 32.6 32.0 - 36.0 04/06/2016 [facility] RBC 4.29 4.20 - 5.40 04/06/2016 [facility] Hgb 13.3 12.0 - 16.0 04/06/2016 [facility] Hct 40.7 36.0 - 48.0 04/06/2016 [facility] RDW 14.5 11.5 - 14.5 04/06/2016 [facility] Platelet 293 133 - 450 04/06/2016 [facility] MPV 9.1 7.4 - 10.4 04/06/2016 [facility] HEMATOLOGY Eosinophils 0.9 0.0 - 4.0 04/06/2016 [facility] Monocytes 7.7 2.0 - 12.0 04/06/2016 [facility] Basophils # 0.1 0.0 - 0.2 04/06/2016 [facility] HEMATOLOGY Eosinophils # 0.2 0.0 - 0.5 04/06/2016 [facility] Monocytes # 1.5 0.0 - 0.8 04/06/2016 [facility] Lymphocytes # 2.1 1.0 - 5.5 04/06/2016 [facility] Basophils 0.4 0.0 - 1.0 04/06/2016 [facility] Segs-Bands # 16.2 1.5 - 8.1 04/06/2016 [facility] Lymphocytes 10.4 20.0 - 40.0 04/06/2016 [facility] Plt Morph Jenny l (04/06/16 2:21 PM) 04/06/2016 [facility] RBC Morph Jenny l (04/06/16 2:21 PM) 04/06/2016 [facility] Segs 80.6 45.0 - 75.0 04/06/2016 [facility] URINE AND STOOL UA Color Ltyellow 10/01/2015 [facility] URINE AND STOOL UA Urobilinogen <=1.0 mg/dL 0.1 - 1.0 10/01/2015 [facility] URINE AND STOOL UA RBC 7 0 - 2 10/01/2015 [facility] URINE AND STOOL UA Blood Small *ABN* (10/01/15 9:38 AM) Negative 10/01/2015 [facility] URINE AND STOOL UA Nitrite Negative (10/01/15 9:38 AM) Negative 10/01/2015 [facility] URINE AND STOOL UA Leuk Est Moderate *ABN* (10/01/15 9:38 AM) Negative 10/01/2015 [facility] URINE AND STOOL UA Sq Epi Occasional /LPF Few /LPF 10/01/2015 [facility] URINE AND STOOL UA WBC 18 0 - 5 10/01/2015 [facility] URINE AND STOOL UA Protein Negative mg/dL Negative mg/dL 10/01/2015 [facility] URINE AND STOOL UA Glucose 500 mg/dL Negative mg/dL 10/01/2015 [facility] URINE AND STOOL UA Bili Negative *NA* (10/01/15 9:38 AM) Negative 10/01/2015 [facility] URINE AND STOOL UA Ketones Negative mg/dL Negative mg/dL 10/01/2015 [facility] URINE AND STOOL UA Turbidity Clear (10/01/15 9:38 AM) Clear 10/01/2015 [facility] URINE AND STOOL UA pH 5.0 5.0 - 8.0 10/01/2015 [facility] URINE AND STOOL UA Spec Grav 1.014 <=1.030 10/01/2015 [facility] URINE AND STOOL UA Bacteria Occasional /HPF None Seen /HPF 10/01/2015 [facility] CARDIAC ENZYMES Troponin-I <0.02 0.00 - 0.40 10/01/2015 [facility] CARDIAC ENZYMES Total CK 51 12 - 191 10/01/2015 [facility] CARDIAC ENZYMES CK MB 0.8 0.5 - 3.6 10/01/2015 [facility] CARDIAC ENZYMES CK MB Index 1.6 0.0 - 2.5 10/01/2015 [facility] CHEM PANEL A/G Ratio 0.9 0.7 - 1.6 10/01/2015 [facility] CHEM PANEL Globulin 3.5 2.0 - 4.0 10/01/2015 [facility] CHEM PANEL eGFR 47 10/01/2015 Result Comment: [...] should be multiplied by the estimated BMI. [facility] CHEM PANEL CO2 25 24 - 32 10/01/2015 [facility] CHEM PANEL Chloride Lvl 108 95 - 109 10/01/2015 [facility] CHEM PANEL Sodium Lvl 141 135 - 145 10/01/2015 [facility] CHEM PANEL Potassium Lvl 4.0 3.5 - 5.1 10/01/2015 [facility] CHEM PANEL AST 29 0 - 37 10/01/2015 [facility] CHEM PANEL AGAP 12.0 10.0 - 20.0 10/01/2015 [facility] CHEM PANEL B/C Ratio 22 6 - 25 10/01/2015 [facility] CHEM PANEL Alk Phos 151 39 - 136 10/01/2015 [facility] CHEM PANEL Bili Total 0.5 0.2 - 1.3 10/01/2015 [facility] CHEM PANEL Albumin Lvl 3.3 3.5 - 5.0 10/01/2015 [facility] CHEM PANEL Total Protein 6.8 6.4 - 8.4 10/01/2015 [facility] CHEM PANEL ALT 38 0 - 65 10/01/2015 [facility] CHEM PANEL BUN 24 7 - 22 10/01/2015 [facility] CHEM PANEL Creatinine Lvl 1.10 0.50 - 1.40 10/01/2015 [facility] CHEM PANEL Glucose Lvl 120 70 - 99 10/01/2015 [facility] CHEM PANEL Calcium Lvl 9.3 8.5 - 10.5 10/01/2015 [facility] HEMATOLOGY MCV 91.7 80.0 - 98.0 10/01/2015 [facility] HEMATOLOGY MCH 29.9 27.0 - 31.0 10/01/2015 [facility] HEMATOLOGY Hct 40.1 36.0 - 48.0 10/01/2015 [facility] HEMATOLOGY RDW 15.0 11.5 - 14.5 10/01/2015 [facility] HEMATOLOGY Platelet 288 133 - 450 10/01/2015 [facility] MCHC 32.7 32.0 - 36.0 10/01/2015 [facility] MPV 7.9 7.4 - 10.4 10/01/2015 [facility] RBC 4.37 4.20 - 5.40 10/01/2015 [facility] WBC 7.5 3.7 - 10.4 10/01/2015 [facility] HEMATOLOGY Hgb 13.1 12.0 - 16.0 10/01/2015 [facility] HEMATOLOGY Basophils # 0.1 0.0 - 0.2 10/01/2015 [facility] HEMATOLOGY Monocytes 7.1 2.0 - 12.0 10/01/2015 [facility] HEMATOLOGY Lymphocytes 28.3 20.0 - 40.0 10/01/2015 [facility] HEMATOLOGY Basophils 0.7 0.0 - 1.0 10/01/2015 [facility] HEMATOLOGY Eosinophils 3.6 0.0 - 4.0 10/01/2015 [facility] HEMATOLOGY Segs 60.3 45.0 - 75.0 10/01/2015 [facility] Lymphocytes # 2.1 1.0 - 5.5 10/01/2015 [facility] HEMATOLOGY Eosinophils # 0.3 0.0 - 0.5 10/01/2015 [facility] HEMATOLOGY Segs-Bands # 4.5 1.5 - 8.1 10/01/2015 [facility] Monocytes # 0.5 0.0 - 0.8 10/01/2015 [facility] URINE AND STOOL UA Sq Epi Occasional /LPF Few /LPF 09/22/2015 [facility] URINE AND STOOL UA WBC 9 0 - 5 09/22/2015 [facility] URINE AND STOOL UA RBC 35 0 - 2 09/22/2015 [facility] URINE AND STOOL UA Nitrite Negative (09/22/15 9:21 AM) Negative 09/22/2015 [facility] URINE AND STOOL UA Leuk Est Small *ABN* (09/22/15 9:21 AM) Negative 09/22/2015 [facility] URINE AND STOOL UA Blood Moderate *ABN* (09/22/15 9:21 AM) Negative 09/22/2015 [facility] URINE AND STOOL UA Urobilinogen <=1.0 mg/dL 0.1 - 1.0 09/22/2015 [facility] URINE AND STOOL UA Bili Negative *NA* (09/22/15 9:21 AM) Negative 09/22/2015 [facility] URINE AND STOOL UA Ketones Negative mg/dL Negative mg/dL 09/22/2015 [facility] URINE AND STOOL UA Protein Negative mg/dL Negative mg/dL 09/22/[address] [facility] [address] URINE AND STOOL UA pH 5.0 5.0 - 8.0 09/22/2015 [facility] URINE AND STOOL UA Glucose 500 mg/dL Negative mg/dL 09/22/2015 [facility] URINE AND STOOL UA Turbidity Slight *ABN* (09/22/15 9:21 AM) Clear 09/22/2015 [facility] URINE AND STOOL UA Spec Grav 1.018 <=1.030 09/22/2015 [facility] URINE AND STOOL UA Color Yellow *NA* (09/22/15 9:21 AM) Yellow 09/22/2015 [facility] CHEM PANEL Phosphorus 2.5 2.5 - 4.5 09/22/2015 [facility] CHEM PANEL Magnesium Lvl 2.3 1.8 - 2.4 09/22/2015 [facility] CHEM PANEL Alk Phos 122 39 - 136 09/22/2015 [facility] CHEM PANEL Sodium Lvl 137 135 - 145 09/22/2015 [facility] CHEM PANEL Potassium Lvl 4.7 3.5 - 5.1 09/22/2015 [facility] CHEM PANEL Calcium Lvl 8.6 8.5 - 10.5 09/22/2015 [facility] CHEM PANEL CO2 25 24 - 32 09/22/2015 [facility] CHEM PANEL Albumin Lvl 3.1 3.5 - 5.0 09/22/2015 [facility] CHEM PANEL Total Protein 6.4 6.4 - 8.4 09/22/2015 [facility] CHEM PANEL AST 32 0 - 37 09/22/2015 [facility] CHEM PANEL ALT 44 0 - 65 09/22/2015 [facility] CHEM PANEL Glucose Lvl 195 70 - 99 09/22/2015 [facility] CHEM PANEL Creatinine Lvl 1.31 0.50 - 1.40 09/22/2015 [facility] CHEM PANEL Chloride Lvl 108 95 - 109 09/22/2015 [facility] CHEM PANEL BUN 41 7 - 22 09/22/2015 [facility] CHEM PANEL eGFR 38 09/22/2015 Result Comment: [...] should be multiplied by the estimated BMI. [facility] CHEM PANEL Bili Total 0.6 0.2 - 1.3 09/22/2015 [facility] CHEM PANEL Globulin 3.3 2.0 - 4.0 09/22/2015 [facility] CHEM PANEL A/G Ratio 0.9 0.7 - 1.6 09/22/2015 [facility] CHEM PANEL AGAP 8.7 10.0 - 20.0 09/22/2015 [facility] CHEM PANEL B/C Ratio 31 6 - 25 09/22/2015 [facility] Monocytes # 0.4 0.0 - 0.8 09/22/2015 [facility] Monocytes 4.0 2.0 - 12.0 09/22/2015 [facility] HEMATOLOGY Basophils 0.3 0.0 - 1.0 09/22/2015 [facility] Eosinophils 0.2 0.0 - 4.0 09/22/2015 [facility] Segs-Bands # 8.2 1.5 - 8.1 09/22/2015 [facility] Lymphocytes # 0.5 1.0 - 5.5 09/22/2015 [facility] Lymphocytes 5.8 20.0 - 40.0 09/22/2015 [facility] HEMATOLOGY Segs 89.7 45.0 - 75.0 09/22/2015 [facility] HEMATOLOGY PTT 32.2 22.9 - 35.8 09/22/2015 [facility] HEMATOLOGY PT 14.6 12.0 - 14.7 09/22/2015 [facility] INR 1.11 0.85 - 1.17 09/22/2015 [facility] Platelet 211 133 - 450 09/22/2015 [facility] MPV 8.5 7.4 - 10.4 09/22/2015 [facility] MCHC 32.8 32.0 - 36.0 09/22/2015 [facility] HEMATOLOGY RDW 14.8 11.5 - 14.5 09/22/2015 [facility] HEMATOLOGY RBC 4.80 4.20 - 5.40 09/22/2015 [facility] Hgb 14.4 12.0 - 16.0 09/22/2015 [facility] WBC 9.1 3.7 - 10.4 09/22/2015 [facility] HEMATOLOGY MCV 91.7 80.0 - 98.0 09/22/2015 [facility] MCH 30.0 27.0 - 31.0 09/22/2015 [facility] Hct 44.0 36.0 - 48.0 09/22/2015 [facility] CHEM PANEL eGFR 30 05/02/2015 Result Comment: [...] should be multiplied by the estimated BMI. [facility] CHEM PANEL Bili Total 0.5 0.2 - 1.3 05/02/2015 [facility] CHEM PANEL Alk Phos 122 39 - 136 05/02/2015 [facility] CHEM PANEL A/G Ratio 0.9 0.7 - 1.6 05/02/2015 [facility] CHEM PANEL ALT 39 0 - 65 05/02/2015 [facility] CHEM PANEL AST 39 0 - 37 05/02/2015 [facility] CHEM PANEL Globulin 3.6 2.0 - 4.0 05/02/2015 [facility] CHEM PANEL Albumin Lvl 3.4 3.5 - 5.0 05/02/2015 [facility] CHEM PANEL Total Protein 7.0 6.4 - [...] HEMATOLOGY MCV 96.6 80.0 - 98.0 05/02/2015 [facility] HEMATOLOGY Hgb 13.4 12.0 - 16.0 05/02/2015 [facility] HEMATOLOGY RBC 4.36 4.20 - 5.40 05/02/2015 [facility] HEMATOLOGY WBC 8.0 3.7 - 10.4 05/02/2015 [facility] HEMATOLOGY MCHC 31.9 32.0 - 36.0 05/02/2015 [facility] HEMATOLOGY RDW 15.3 11.5 - 14.5 05/02/2015 [facility] HEMATOLOGY Hct 42.1 36.0 - 48.0 05/02/2015 [facility] HEMATOLOGY Platelet 230 133 - 450 05/02/2015 [facility] HEMATOLOGY MCH 30.8 27.0 - 31.0 05/02/2015 [facility] HEMATOLOGY INR 1.02 0.85 - 1.17 05/02/2015 [facility] HEMATOLOGY PTT 34.8 22.9 - 35.8 05/02/2015 [facility] HEMATOLOGY PT 13.7 12.0 - 14.7 05/02/2015 [facility] ELECTROLYTES AGAP 13.3 10.0 - 20.0 02/28/2015 [facility] ELECTROLYTES Sodium Lvl 141 135 - 145 02/28/2015 [facility] ELECTROLYTES BUN 32 7 - 22 02/28/2015 [facility] ELECTROLYTES Creatinine Lvl 1.2 0.5 - 1.4 02/28/2015 [facility] ELECTROLYTES Glucose Lvl 201 70 - 99 02/28/2015 [facility] ELECTROLYTES Potassium Lvl 4.3 3.5 - 5.1 02/28/2015 [facility] ELECTROLYTES CO2 23 24 - 32 02/28/2015 [facility] ELECTROLYTES Calcium Lvl 9.4 8.5 - 10.5 02/28/2015 [facility] ELECTROLYTES Chloride Lvl 109 95 - 109 02/28/2015 [facility] ELECTROLYTES eGFR 42 02/28/2015 Result Comment: The [...] should be multiplied by the estimated BMI. [facility] Lymphocytes # 1.2 1.0 - 5.5 02/28/2015 [facility] HEMATOLOGY Monocytes # 0.6 0.0 - 0.8 02/28/2015 [facility] HEMATOLOGY Basophils 0.1 0.0 - 1.0 02/28/2015 [facility] HEMATOLOGY Monocytes 4.7 2.0 - 12.0 02/28/2015 [facility] HEMATOLOGY Segs-Bands # 11.8 1.5 - 8.1 02/28/2015 [facility] HEMATOLOGY Segs 86.7 45.0 - 75.0 02/28/2015 [facility] HEMATOLOGY Lymphocytes 8.5 20.0 - 40.0 02/28/2015 [facility] HEMATOLOGY MCHC 33.0 32.0 - 36.0 02/28/2015 [facility] HEMATOLOGY MCH 31.0 27.0 - 31.0 02/28/2015 [facility] HEMATOLOGY MPV 8.3 7.4 - 10.4 02/28/2015 [facility] HEMATOLOGY Platelet 246 133 - 450 02/28/2015 [facility] HEMATOLOGY RDW 14.3 11.5 - 14.5 02/28/2015 [facility] HEMATOLOGY Hct 39.5 36.0 - 48.0 02/28/2015 [facility] HEMATOLOGY Hgb 13.0 12.0 - 16.0 02/28/2015 [facility] HEMATOLOGY RBC 4.19 4.20 - 5.40 02/28/2015 [facility] HEMATOLOGY MCV 94.2 80.0 - 98.0 02/28/2015 [facility] HEMATOLOGY WBC 13.6 3.7 - 10.4 02/28/2015 [facility] CARDIAC ENZYMES Total CK 135 12 - [...] Total CK 96 12 - 191 02/27/2015 [facility] CARDIAC ENZYMES CK MB 1.5 0.5 - 3.6 02/27/2015 [facility] CARDIAC ENZYMES CK MB Index 1.6 0.0 - 2.5 02/27/2015 [facility] CARDIAC ENZYMES BNP 46 <=100 pg/mL 02/27/2015 [facility] CHEM PANEL Calcium Lvl 9.0 8.5 - 10.5 02/27/2015 [facility] CHEM PANEL Sodium Lvl 143 135 - 145 02/27/2015 [facility] CHEM PANEL Chloride Lvl 111 95 - 109 02/27/2015 [facility] CHEM PANEL Potassium Lvl 4.1 3.5 - 5.1 02/27/2015 [facility] CHEM PANEL eGFR 39 02/27/2015 Result Comment: [...] should be multiplied by the estimated BMI. [facility] CHEM PANEL Creatinine Lvl 1.3 0.5 - 1.4 02/27/2015 [facility] CHEM PANEL CO2 22 24 - 32 02/27/2015 [facility] CHEM PANEL Glucose Lvl 178 70 - 99 02/27/2015 [facility] CHEM PANEL BUN 34 7 - 22 02/27/2015 [facility] CHEM PANEL A/G Ratio 1.0 0.7 - 1.6 02/27/2015 [facility] CHEM PANEL Bili Total 0.3 0.2 - 1.3 02/27/2015 [facility] CHEM PANEL AGAP 14.1 10.0 - 20.0 02/27/2015 [facility] CHEM PANEL B/C Ratio 26 6 - 25 02/27/2015 [facility] CHEM PANEL Globulin 3.6 2.0 - 4.0 02/27/2015 [facility] CHEM PANEL AST 37 0 - 37 02/27/2015 [facility] CHEM PANEL Alk Phos 190 39 - 136 02/27/2015 [facility] CHEM PANEL Total Protein 7.2 6.4 - 8.4 02/27/2015 [facility] CHEM PANEL Albumin Lvl 3.6 3.5 - 5.0 02/27/2015 [facility] CHEM PANEL ALT 38 0 - 65 02/27/2015 [facility] HEMATOLOGY Eosinophils # 0.2 0.0 - 0.5 02/27/2015 [facility] HEMATOLOGY Basophils # 0.1 0.0 - 0.2 02/27/2015 [facility] HEMATOLOGY Segs-Bands # 6.3 1.5 - 8.1 02/27/2015 [facility] HEMATOLOGY Basophils 0.9 0.0 - 1.0 02/27/2015 [facility] HEMATOLOGY Monocytes # 0.8 0.0 - 0.8 02/27/2015 [facility] HEMATOLOGY Lymphocytes # 2.3 1.0 - 5.5 02/27/2015 [facility] HEMATOLOGY Lymphocytes 23.8 20.0 - 40.0 02/27/2015 [facility] HEMATOLOGY Monocytes 7.9 2.0 - 12.0 02/27/2015 [facility] HEMATOLOGY Eosinophils 2.1 0.0 - 4.0 02/27/2015 [facility] HEMATOLOGY Segs 65.3 45.0 - 75.0 02/27/2015 [facility] HEMATOLOGY WBC 9.6 3.7 - 10.4 02/27/2015 [facility] HEMATOLOGY RBC 4.68 4.20 - 5.40 02/27/2015 [facility] HEMATOLOGY MPV 8.2 7.4 - 10.4 02/27/2015 [facility] HEMATOLOGY Platelet 289 133 - 450 02/27/2015 [facility] HEMATOLOGY MCV 93.8 80.0 - 98.0 02/27/2015 [facility] HEMATOLOGY Hgb 14.7 12.0 - 16.0 02/27/2015 [facility] HEMATOLOGY Hct 43.9 36.0 - 48.0 02/27/2015 [facility] HEMATOLOGY MCHC 33.5 32.0 - 36.0 02/27/2015 [facility] HEMATOLOGY RDW 14.2 11.5 - 14.5 02/27/2015 [facility] HEMATOLOGY MCH 31.4 27.0 - 31.0 02/27/2015 [facility] HEMATOLOGY PTT 38.0 22.9 - 35.8 02/27/2015 [facility] HEMATOLOGY INR 0.94 0.85 - 1.17 02/27/2015 [facility] HEMATOLOGY PT 12.5 12.0 - 14.7 02/27/2015 [facility] CARDIAC ENZYMES CK MB Index 0.8 0.0 - 2.5 10/10/2014 [facility] CARDIAC ENZYMES Total CK 108 12 - 191 10/10/2014 [facility] CARDIAC ENZYMES CK MB 0.9 0.5 - 3.6 10/10/2014 [facility] CARDIAC ENZYMES Troponin-I <0.02 0.00 - 0.40 10/10/2014 [facility] CARDIAC ENZYMES BNP 61 <=100 pg/mL 10/10/2014 <sup>3</sup>Interpretive Data: Elevated results are in line with increasing severity of
congestive heart failure. Minor elevations between 100 and 300
may be seen with Myocardial Ischemia, Sodium retaining drugs,
and compensated/treated heart failure. [facility] ELECTROLYTES Chloride Lvl 108 95 - 109 10/10/2014 [facility] ELECTROLYTES Sodium Lvl 140 135 - 145 10/10/2014 [facility] ELECTROLYTES Potassium Lvl 4.6 3.5 - 5.1 10/10/2014 [facility] ELECTROLYTES Globulin 4.1 2.0 - 4.0 10/10/2014 [facility] ELECTROLYTES A/G Ratio 0.8 0.7 - 1.6 10/10/2014 [facility] ELECTROLYTES eGFR 47 10/10/2014 <sup>1</sup>Result Comment: The [...] should be multiplied by the estimated BMI. [facility] ELECTROLYTES Calcium Lvl 8.7 8.5 - 10.5 10/10/2014 [facility] ELECTROLYTES Total Protein 7.4 6.4 - 8.4 10/10/2014 [facility] ELECTROLYTES AST 44 0 - 37 10/10/2014 [facility] ELECTROLYTES Albumin Lvl 3.3 3.5 - 5.0 10/10/2014 [facility] ELECTROLYTES ALT 31 0 - 65 10/10/2014 [facility] ELECTROLYTES Creatinine Lvl 1.1 0.5 - 1.4 10/10/2014 [facility] ELECTROLYTES BUN 17 7 - 22 10/10/2014 [facility] ELECTROLYTES CO2 25 24 - 32 10/10/2014 [facility] ELECTROLYTES Glucose Lvl 134 70 - 99 10/10/2014 <sup>2</sup>Interpretive Data: Adult ref erence range values reflect the clinical guidelines
of the [place] [employer]. [facility] ELECTROLYTES Alk Phos 143 39 - 136 10/10/2014 [facility] ELECTROLYTES Bili Total 0.6 0.2 - 1.3 10/10/2014 [facility] ELECTROLYTES AGAP 11.6 10.0 - 20.0 10/10/2014 [facility] ELECTROLYTES B/C Ratio 15 6 - 25 10/10/2014 [facility] HEMATOLOGY Basophils # 0.1 0.0 - 0.2 10/10/2014 [facility] HEMATOLOGY Eosinophils # 0.2 0.0 - 0.5 10/10/2014 [facility] HEMATOLOGY Monocytes # 0.5 0.0 - 0.8 10/10/2014 [facility] HEMATOLOGY Segs-Bands # 4.5 1.5 - 8.1 10/10/2014 [facility] HEMATOLOGY Lymphocytes # 2.2 1.0 - 5.5 10/10/2014 [facility] HEMATOLOGY Basophils 0.9 0.0 - 1.0 10/10/2014 [facility] HEMATOLOGY Monocytes 6.4 2.0 - 12.0 10/10/2014 [facility] HEMATOLOGY Eosinophils 2.0 0.0 - 4.0 10/10/2014 [facility] HEMATOLOGY Segs 61.1 45.0 - 75.0 10/10/2014 [facility] HEMATOLOGY Lymphocytes 29.6 20.0 - 40.0 10/10/2014 [facility] HEMATOLOGY PT 12.7 12.0 - 14.7 10/10/2014 [facility] HEMATOLOGY PTT 36.4 22.9 - 35.8 10/10/2014 <sup>5</sup>Interpretive Data: Heparin T herapeutic Range: 57 - 92 Seconds [facility] INR 0.95 0.85 - 1.17 10/10/2014 <sup>4</sup>Interpretive Data: RECOMMEND ED RANGES FOR PROTIME INR:
2.0- 3.0 for most medical and surgical thromboembolic states.
2.5-3.5 for artificial heart valves and recurrent embolism.

INR SHOULD BE USED ONLY FOR PATIENTS ON STABLE ANTICOAGULANT THERAPY. [facility] MCH 30.9 27.0 - 31.0 10/10/2014 [facility] MCHC 32.7 32.0 - 36.0 10/10/2014 [facility] RDW 14.1 11.5 - 14.5 10/10/2014 [facility] Platelet 249 133 - 450 10/10/2014 [facility] MPV 8.4 7.4 - 10.4 10/10/2014 [facility] Hgb 14.5 12.0 - 16.0 10/10/2014 [facility] Hct 44.4 36.0 - 48.0 10/10/2014 [facility] WBC 7.4 3.7 - 10.4 10/10/2014 [facility] RBC 4.70 4.20 - 5.40 10/10/2014 [facility] MCV 94.4 80.0 - 98.0 10/10/2014 [facility] CARDIAC ENZYMES CK MB Index 1.3 0.0 - 2.5 05/16/2014 [facility] CARDIAC ENZYMES Troponin-I <0.02 0.00 - 0.40 05/16/2014 [facility] CARDIAC ENZYMES CK MB 1.4 0.5 - 3.6 05/16/2014 [facility] CARDIAC ENZYMES Total CK 104 12 - 191 05/16/2014 [facility] CHEM PANEL eGFR 48 05/16/2014 <sup>1</sup>Result Comment: [...] values reflect the clinical guidelines
of the [place] [employer]. [facility] CHEM PANEL Sodium Lvl [...] PANEL AGAP 13.3 10.0 - 20.0 05/16/2014 [facility] CHEM PANEL Globulin 3.7 2.0 - 4.0 05/16/2014 [facility] CHEM PANEL A/G Ratio 0.9 0.7 - 1.6 05/16/2014 [facility] CHEM PANEL ALT 48 0 - 65 05/16/2014 [facility] CHEM PANEL Total Protein 7.2 6.4 - 8.4 05/16/2014 [facility] CHEM PANEL Alk Phos 164 39 - 136 05/16/2014 [facility] CHEM PANEL AST 36 0 - 37 05/16/2014 [facility] CHEM PANEL Bili Total 0.5 0.2 - 1.3 05/16/2014 [facility] HEMATOLOGY Segs-Bands # 9.8 1.5 - 8.1 05/16/2014 [facility] HEMATOLOGY Lymphocytes # 2.5 1.0 - 5.5 05/16/2014 [facility] HEMATOLOGY Eosinophils # 0.2 0.0 - 0.5 05/16/2014 [facility] HEMATOLOGY Basophils # 0.1 0.0 - 0.2 05/16/2014 [facility] Monocytes # 0.8 0.0 - 0.8 05/16/2014 [facility] Monocytes 6.1 2.0 - 12.0 05/16/2014 [facility] Eosinophils 1.1 0.0 - 4.0 05/16/2014 [facility] Basophils 0.8 0.0 - 1.0 05/16/2014 [facility] Segs 73.3 45.0 - 75.0 05/16/2014 [facility] Lymphocytes 18.7 20.0 - 40.0 05/16/2014 [facility] D-Dimer 0.46 05/16/2014 <sup>4</sup>Interpretive Data: In [facility], quantitative D-Dimer is generally greater than
0.66 ug/mL FEU. Values of quantitative D-Dimer less than
0.40 ug/mL FEU have been reported to be associated with a low
probability of deep vein thrombosis/pulmonary embolism.
This test alone should not be used to rule out DVT/PE. [facility] PTT 35.5 22.9 - 35.8 05/16/2014 <sup>5</sup>Interpretive Data: Heparin T herapeutic Range: 57 - 92 Seconds [facility] PT 12.8 12.0 - 14.7 05/16/2014 [facility] INR 0.96 0.85 - 1.17 05/16/2014 <sup>3</sup>Interpretive Data: RECOMMEND ED RANGES FOR PROTIME INR:
2.0- 3.0 for most medical and surgical thromboembolic states.
2.5-3.5 for artificial heart valves and recurrent embolism.

INR SHOULD BE USED ONLY FOR PATIENTS ON STABLE ANTICOAGULANT THERAPY. [facility] RDW 14.1 11.5 - 14.5 05/16/2014 [facility] MPV 8.1 7.4 - 10.4 05/16/2014 [facility] Platelet 344 133 - 450 05/16/2014 [facility] MCV 94.2 80.0 - 98.0 05/16/2014 [facility] MCH 30.6 27.0 - 31.0 05/16/2014 [facility] HEMATOLOGY MCHC 32.4 32.0 - 36.0 05/16/2014 [facility] HEMATOLOGY RBC 4.68 4.20 - 5.40 05/16/2014 [facility] HEMATOLOGY Hct 44.1 36.0 - 48.0 05/16/2014 [facility] HEMATOLOGY Hgb 14.3 12.0 - 16.0 05/16/2014 [facility] HEMATOLOGY WBC 13.4 3.7 - 10.4 05/16/2014 [facility] BEDSIDE GLUCOSE TESTING Comment1 Assess patient 01/09/2013 NA [facility] BEDSIDE GLUCOSE TESTING Gluc POC Lif scn >400 70 - 99 01/09/2013 [facility] <sup>1</sup>Interpretive Data: Upper Reportable Limit: 200 mg/dL. [facility] BEDSIDE GLUCOSE TESTING Comment2 Repeat test 01/09/2013 NA [facility] BEDSIDE GLUCOSE TESTING Comment3 Notify RN/MD 01/09/2013 [facility] BEDSIDE GLUCOSE TESTING Comment2 Notify RN/MD 01/09/2013 NA [facility] BEDSIDE GLUCOSE TESTING Comment1 Assess patient 01/09/2013 NA [facility] BEDSIDE GLUCOSE TESTING Gluc POC Lif scn >400 70 - 99 01/09/2013 CRIT <sup>2</sup>Interpretive Data: Upper Reportable Limit: 200 mg/dL. [facility] BEDSIDE GLUCOSE TESTING Comment1 Notify RN/MD 01/09/2013 [facility] BEDSIDE GLUCOSE TESTING Gluc POC Lif scn 310 70 - 99 01/09/2013 [place] <sup>3</sup>Interpretive Data: Upper Reportable Limit: 200 mg/dL. [facility] CHEMISTRY Glucose Lvl 521 70 - 99 01/09/2013 CRIT <sup>6</sup>Interpretive Data: Adult ref erence range values reflect the clinical guidelines
of the [place] [employer].
<sup>7</sup>Result Comment: Critical Result(s) called to Yehuda Doll at 01/09/2013 04:26 by lt. Read back OK. [facility] CHEMISTRY AGAP 15.1 10.0 - 20.0 01/09/2013 Normal [facility] CHEMISTRY CO2 25 24 - 32 01/09/2013 Normal [facility] CHEMISTRY BUN 29 7 - 22 01/09/2013 HI [facility] CHEMISTRY Glucose Lvl 538 70 - 99 01/09/2013 CRIT <sup>8</sup>Result Comment: Critical Res ult(s) called to KasiaEliazar Sharmila at 01/09/2013 04:25 bylt. Read back OK.
<sup>9</sup>Interpretive Data: Adult reference range values reflect the clinical guidelines
of the [place] [employer]. [facility] CHEMISTRY eGFR 33 01/09/2013 NA <sup>4</sup>Result Comment: [...] should be multiplied by the estimated BMI. [facility] CHEMISTRY Calcium Lvl 8.8 8.5 - 10.5 01/09/2013 Normal [facility] CHEMISTRY Chloride Lvl 102 95 - 109 01/09/2013 Normal [facility] CHEMISTRY Potassium Lvl 4.1 3.5 - 5.1 01/09/2013 Normal [facility] CHEMISTRY Sodium Lvl 138 135 - 145 01/09/2013 Normal [facility] CHEMISTRY Creatinine Lvl 1.5 0.5 - 1.4 01/09/2013 [facility] HEMATOLOGY MPV 8.7 7.4 - 10.4 01/09/2013 Normal [facility] HEMATOLOGY RBC 3.66 4.20 - 5.40 01/09/2013 LOW [facility] HEMATOLOGY MCV 97.3 81.0 - 99.0 01/09/2013 Normal [facility] HEMATOLOGY MCH 34.5 27.0 - 31.0 01/09/2013 [facility] HEMATOLOGY Hgb 12.6 12.0 - 16.0 01/09/2013 Normal [facility] HEMATOLOGY Hct 35.6 36.0 - 48.0 01/09/2013 LOW [facility] HEMATOLOGY Platelet 245 133 - 450 01/09/2013 Normal [facility] HEMATOLOGY RDW 14.0 11.5 - 14.5 01/09/2013 Normal [facility] HEMATOLOGY MCHC 35.5 32.0 - 36.0 01/09/2013 Normal [facility] HEMATOLOGY WBC 11.1 3.7 - 10.4 01/09/2013 HI [facility] HEMATOLOGY Lymphocytes # 0.9 1.0 - 5.5 01/09/2013 LOW [facility] HEMATOLOGY Monocytes # 0.0 0.0 - 0.8 01/09/2013 Normal [facility] HEMATOLOGY Eosinophils # 0.0 0.0 - 0.5 01/09/2013 Normal [facility] HEMATOLOGY Basophils # 0.0 0.0 - 0.2 01/09/2013 Normal [facility] HEMATOLOGY Segs-Bands # 10.2 1.5 - 8.1 01/09/2013 [facility] HEMATOLOGY Lymphocytes 7.9 20.0 - 40.0 01/09/2013 LOW [facility] HEMATOLOGY Monocytes 0.4 2.0 - 12.0 01/09/2013 LOW [facility] HEMATOLOGY Eosinophils 0.0 0.0 - 4.0 01/09/2013 Normal [facility] HEMATOLOGY Basophils 0.0 0.0 - 1.0 01/09/2013 Normal [facility] HEMATOLOGY Segs 91.7 45.0 - 75.0 01/09/2013 [facility] BEDSIDE GLUCOSE TESTING Comment2 Notify RN/ 01/08/2013 NA [facility] CHEMISTRY Glucose Lvl 491 70 - 99 01/08/2013 CRIT <sup>10</sup>Result Comment: Critical Re sult(s) called to Rachael Alonso at 01/08/2013 17:58 by RP. Read back OK.
<sup>11</sup>Interpretive Data: Adult reference range values reflect the clinical guidelines
of the [place] [employer]. [facility] Microbiology Gram Stain 01/08/2013 [facility] Microbiology Culture: Respiratory w/ Gram Stain 01/08/2013 [facility] CHEMISTRY Lactic Acid Lvl 1.2 0.5 - 2.2 01/08/2013 Normal [facility] Microbiology Culture: Blood 01/08/2013 [facility] Microbiology Culture: Blood 01/08/2013 [facility] CHEMISTRY CK MB Index <1.1 0.0 - 2.5 01/08/2013 Normal [facility] CHEMISTRY CK MB <0.5 0.5 - 3.6 01/08/2013 Normal [facility] CHEMISTRY Sodium Lvl 144 135 - 145 01/08/2013 Normal [facility] CHEMISTRY Potassium Lvl 3.9 3.5 - 5.1 01/08/2013 Normal [facility] CHEMISTRY Chloride Lvl 106 95 - 109 01/08/2013 Normal [facility] CHEMISTRY eGFR 61 01/08/2013 NA <sup>5</sup>Result Comment: [...] should be multiplied by the estimated BMI. [facility] CHEMISTRY A/G Ratio 0.9 0.7 - 1.6 01/08/2013 Normal [facility] CHEMISTRY AST 59 0 - 37 01/08/2013 [facility] CHEMISTRY AGAP 13.9 10.0 - 20.0 01/08/2013 Normal [facility] CHEMISTRY Globulin 3.5 2.0 - 4.0 01/08/2013 Normal [facility] CHEMISTRY B/C Ratio 20 6 - 25 01/08/2013 Normal [facility] CHEMISTRY Bili Total 0.4 0.2 - 1.3 01/08/2013 Normal [facility] CHEMISTRY Alk Phos 270 39 - 136 01/08/2013 [place] [facility] CHEMISTRY Albumin Lvl 3.2 3.5 - 5.0 01/08/2013 LOW [facility] CHEMISTRY ALT 57 0 - 65 01/08/2013 Normal [facility] CHEMISTRY Total Protein 6.7 6.4 - 8.4 01/08/2013 Normal [facility] CHEMISTRY CO2 28 24 - 32 01/08/2013 Normal [facility] CHEMISTRY BUN 18 7 - 22 01/08/2013 Normal [facility] CHEMISTRY Calcium Lvl 9.0 8.5 - 10.5 01/08/2013 Normal [facility] CHEMISTRY Creatinine Lvl 0.9 0.5 - 1.4 01/08/2013 Normal [facility] CHEMISTRY Total CK 44 12 - 191 01/08/2013 Normal [facility] CHEMISTRY Troponin-I <0.02 0.00 - 0.40 01/08/2013 Normal [facility] PT 12.9 12.0 - 14.7 01/08/2013 Normal [facility] INR 0.95 0.85 - 1.17 01/08/2013 Normal <sup>13</sup>Interpretive Data: RECOMMEN DED RANGES FOR PROTIME INR:
2.0-3.0 for most medical and surgical thromboembolic states.
2.5-3.5 for artificial heart valves and recurrent embolism.

INR SHOULD BE USED ONLY FOR PATIENTS ON STABLE ANTICOAGULANT THERAPY. [facility] D-Dimer 0.56 01/08/2013 NA <sup>14</sup>Interpretive Data: In DIC, quantitative D-Dimer is generally greater than
0.66 ug/mL FEU. Values of quantitative D-Dimer less than
0.40 ug/mL FEU have been reported to be associated with a low
probability of deep vein thrombosis/pulmonary embolism.
This test alone should not be used to rule out DVT/PE. [facility] PTT 35.4 22.9 - 35.8 01/08/2013 Normal <sup>15</sup>Interpretive Data: Heparin Therapeutic Range: 57 - 92 Seconds [facility] BNP 68 <=100 01/08/2013 Normal <sup>12</sup>Interpretive Data: Elevated results are in line with increasing severity of
congestive heart failure. Minor elevations between 100 and 300
may be seen with Myocardial Ischemia, Sodium retaining drugs,
and compensated/treated heart failure. [facility] Monocytes # 0.5 0.0 - 0.8 01/08/2013 Normal [facility] Lymphocytes # 2.3 1.0 - 5.5 01/08/2013 Normal [facility] Basophils 0.7 0.0 - 1.0 01/08/2013 Normal [facility] Eosinophils # 0.2 0.0 - 0.5 01/08/2013 Normal [facility] HEMATOLOGY Eosinophils 2.4 0.0 - 4.0 01/08/2013 [facility] HEMATOLOGY Segs-Bands # 5.2 1.5 - 8.1 01/08/2013 Normal [facility] HEMATOLOGY Basophils # 0.1 0.0 - 0.2 01/08/2013 Normal [facility] HEMATOLOGY Segs 62.5 45.0 - 75.0 01/08/2013 Normal [facility] HEMATOLOGY Lymphocytes 28.2 20.0 - 40.0 01/08/2013 Normal [facility] HEMATOLOGY Monocytes 6.2 2.0 - 12.0 01/08/2013 Normal [facility] HEMATOLOGY MPV 8.8 7.4 - 10.4 01/08/2013 [facility] HEMATOLOGY Platelet 257 133 - 450 01/08/2013 Normal [facility] HEMATOLOGY WBC 8.3 3.7 - 10.4 01/08/2013 Normal [facility] HEMATOLOGY MCHC 33.7 32.0 - 36.0 01/08/2013 Normal [facility] HEMATOLOGY MCH 31.6 27.0 - 31.0 01/08/2013 [facility] HEMATOLOGY RDW 14.9 11.5 - 14.5 01/08/2013 [facility] HEMATOLOGY RBC 4.18 4.20 - 5.40 01/08/2013 LOW [facility] HEMATOLOGY Hgb 13.2 12.0 - 16.0 01/08/2013 Normal [facility] HEMATOLOGY MCV 93.9 81.0 - 99.0 01/08/2013 Normal [facility] HEMATOLOGY Hct 39.3 36.0 - 48.0 01/08/2013 [facility] CHEMISTRY Temp Art 37.0 01/08/2013 NA [facility] CHEMISTRY Allens Art Positi ve (01/07/2013 20:25:00) 01/08/2013 [facility] CHEMISTRY FiO2 Art Room Air 01/08/2013 NA [facility] CHEMISTRY Site Art Left R ad (01/07/2013 20:25:00) 01/08/2013 [facility] CHEMISTRY pH Art 7.46 7.35 - 7.45 01/08/2013 [facility] CHEMISTRY HCO3 Art 28 22 - 26 01/08/2013 [facility] CHEMISTRY BE Art 4 -2-2 - 2 01/08/2013 [facility] CHEMISTRY pCO2 Art 40 35 - 45 01/08/2013 [facility] CHEMISTRY pO2 Art 81 80 - 100 01/08/2013 [facility] CHEMISTRY O2 Sat Art 96.5 95.0 - 100.0 01/08/2013 Normal [facility] URINALYSIS UA Urobilinogen 0.1 - 1.0 01/08/2013 NA [facility] URINALYSIS UA WBC <1 0 - 5 01/08/2013 Normal [facility] URINALYSIS UA Sq Epi Few / LPF *NA* (01/07/2013 20:20:00) Few 01/08/2013 [facility] URINALYSIS UA Leuk Est Negat cameron (01/07/2013 20:20:00) Negati ve 01/08/2013 Normal [facility] URINALYSIS UA Nitrite Negat cameron (01/07/2013 20:20:00) Negati ve 01/08/2013 Normal [facility] URINALYSIS UA RBC <1 0 - 2 01/08/2013 Normal [facility] URINALYSIS UA Color Ltyellow 01/08/2013 NA [facility] URINALYSIS UA Ketones Negat cameron mg/dL *NA* (01/07/2013 20:20:00) Negati ve 01/08/2013 NA [facility] URINALYSIS UA Glucose 50 mg /dL *ABN* (01/07/2013 20:20:00) Negati ve 01/08/2013 ABN [facility] URINALYSIS UA Protein Negat cameron mg/dL (01/07/2013 20:20:00) Negati ve 01/08/2013 Normal [facility] URINALYSIS UA Blood Negat cameron (01/07/2013 20:20:00) Negati ve 01/08/2013 Normal [facility] URINALYSIS UA Bili Negat cameron *NA* (01/07/2013 20:20:00) Negati ve 01/08/2013 NA [facility] URINALYSIS UA Turbidity Clear (01/07/2013 20:20:00) Clear 01/08/2013 Normal [facility] URINALYSIS UA pH 6.0 5.0 - 8.0 01/08/2013 Normal [facility] URINALYSIS UA Spec Grav 1.013 <=1.030 01/08/2013 Normal [facility] BEDSIDE GLUCOSE TESTING Comment1 Notify RN/ 09/03/2012 [facility] BEDSIDE GLUCOSE TESTING Gluc POC Lif scn >400 70 - 99 09/03/2012 CRIT <sup>1</sup>Interpretive Data: Upper Reportable Limit: 200 mg/dL. [facility] CHEMISTRY Glucose Lvl 428 70 - 99 09/03/2012 CRIT <sup>6</sup>Result Comment: Critical Res ult(s) called to Rogelio at 09/03/2012 12:15:32 TONG CARRIER by ZOEY. Read back OK.
<sup>7</sup>Interpretive Data: Adult reference range values reflect the clinical guidelines
of the [place] [employer]. [facility] BEDSIDE GLUCOSE TESTING Gluc POC Lif scn >400 70 - 99 09/03/2012 CRIT <sup>2</sup>Interpretive Data: Upper Reportable Limit: 200 mg/dL. [facility] BEDSIDE GLUCOSE TESTING Gluc POC Lif scn 305 70 - 99 09/03/2012 HI <sup>3</sup>Interpretive Data: Upper Reportable Limit: 200 mg/dL. [facility] CHEMISTRY Potassium Lvl 4.2 3.5 - 5.1 09/03/2012 Normal [facility] CHEMISTRY Sodium Lvl 142 135 - 145 09/03/2012 Normal [facility] CHEMISTRY Chloride Lvl 105 95 - 109 09/03/2012 Normal [facility] CHEMISTRY eGFR 48 09/03/2012 NA <sup>4</sup>Result Comment: [...] should be multiplied by the estimated BMI. [facility] CHEMISTRY Calcium Lvl 9.1 8.5 - 10.5 09/03/2012 Normal [facility] CHEMISTRY AGAP 14.2 10.0 - 20.0 09/03/2012 Normal [facility] CHEMISTRY CO2 27 24 - 32 09/03/2012 Normal [facility] CHEMISTRY BUN 24 7 - 22 09/03/2012 HI [facility] CHEMISTRY Glucose Lvl 296 70 - 99 09/03/2012 PR <sup>8</sup>Interpretive Data: Adult ref erence range values reflect the clinical guidelines
of the [place] [employer]. [facility] CHEMISTRY Creatinine Lvl 1.1 0.5 - 1.4 09/03/2012 Normal [facility] HEMATOLOGY Segs-Bands # 7.7 1.5 - 8.1 09/03/2012 Normal [facility] HEMATOLOGY Basophils 0.2 0.0 - 1.0 09/03/2012 Normal [facility] HEMATOLOGY Lymphocytes # 1.2 1.0 - 5.5 09/03/2012 Normal [facility] HEMATOLOGY Eosinophils # 0.0 0.0 - 0.5 09/03/2012 Normal [facility] HEMATOLOGY Eosinophils 0.0 0.0 - 4.0 09/03/2012 Normal [facility] HEMATOLOGY Monocytes # 0.1 0.0 - 0.8 09/03/2012 Normal [facility] HEMATOLOGY Monocytes 1.2 2.0 - 12.0 09/03/2012 LOW [facility] HEMATOLOGY Lymphocytes 12.9 20.0 - 40.0 09/03/2012 LOW [facility] HEMATOLOGY RBC Morph Jenny l (09/03/2012 05:58:00) 09/03/2012 Normal [facility] HEMATOLOGY Basophils # 0.0 0.0 - 0.2 09/03/2012 Normal [facility] HEMATOLOGY Segs 85.7 45.0 - 75.0 09/03/2012 [facility] HEMATOLOGY Plt Morph Jenny l (09/03/2012 05:58:00) 09/03/2012 Normal [facility] HEMATOLOGY MPV 8.1 7.4 - 10.4 09/03/2012 Normal [facility] HEMATOLOGY Platelet 353 133 - 450 09/03/2012 Normal [facility] HEMATOLOGY RDW 13.9 11.5 - 14.5 09/03/2012 Normal [facility] HEMATOLOGY RBC 4.24 4.20 - 5.40 09/03/2012 Normal [facility] HEMATOLOGY WBC 9.0 3.7 - 10.4 09/03/2012 Normal [facility] HEMATOLOGY MCHC 33.7 32.0 - 36.0 09/03/2012 Normal [facility] HEMATOLOGY MCV 93.2 81.0 - 99.0 09/03/2012 Normal [facility] HEMATOLOGY MCH 31.4 27.0 - 31.0 09/03/2012 [facility] HEMATOLOGY Hgb 13.3 12.0 - 16.0 09/03/2012 Normal [facility] HEMATOLOGY Hct 39.5 36.0 - 48.0 09/03/2012 Normal [facility] CHEMISTRY Glucose Lvl 476 70 - 99 09/03/2012 CRIT <sup>9</sup>Result Comment: Critical Res ult(s) called to Zahida at 09/02/2012 22:05:03 TONG CARRIER by AC. Read back OK.
<sup>10</sup>Interpretive Data: Adult reference range values reflect the clinical guidelines
of the [place] [employer]. [facility] BEDSIDE GLUCOSE TESTING Comment1 Notify RN/MD 09/03/2012 NA [facility] BEDSIDE GLUCOSE TESTING Comment1 Notify RN/MD 09/03/2012 [facility] Microbiology Culture: Urine 09/03/2012 [facility] URINALYSIS UA Bacteria Occas ional /HPF *NA* (09/02/2012 16:53:00) None S een 09/02/2012 NA [facility] URINALYSIS UA pH 5.0 5.0 - 8.0 09/02/2012 Normal [facility] URINALYSIS UA Protein Negat cameron mg/dL (09/02/2012 16:53:00) Negati ve 09/02/2012 Normal [facility] URINALYSIS UA Turbidity Clear (09/02/2012 16:53:00) Clear 09/02/2012 Normal [facility] URINALYSIS UA Spec Grav 1.018 <=1.030 09/02/2012 Normal [facility] URINALYSIS UA Glucose 500 m g/dL *ABN* (09/02/2012 16:53:00) Negati ve 09/02/2012 ABN [facility] URINALYSIS UA Ketones 20 mg /dL *ABN* (09/02/2012 16:53:00) Negati ve 09/02/2012 ABN [facility] URINALYSIS UA Bili Negat cameron *NA* (09/02/2012 16:53:00) Negati ve 09/02/2012 NA [facility] URINALYSIS UA Blood Negat cameron (09/02/2012 16:53:00) Negati ve 09/02/2012 Normal [facility] URINALYSIS UA Nitrite Negat cameron (09/02/2012 16:53:00) Negati ve 09/02/2012 Normal [facility] URINALYSIS UA Sq Epi Few / LPF *NA* (09/02/2012 16:53:00) Few 09/02/2012 NA [facility] URINALYSIS UA Leuk Est Trace *ABN* (09/02/2012 16:53:00) Negati ve 09/02/2012 ABN [facility] URINALYSIS UA RBC 3 0 - 2 09/02/2012 [facility] URINALYSIS UA WBC 14 0 - 5 09/02/2012 [facility] URINALYSIS UA Urobilinogen 0.1 - 1.0 09/02/2012 NA [facility] URINALYSIS UA Color Ltyellow 09/02/2012 [facility] CHEMISTRY Lactic Acid Lvl 1.2 0.5 - 2.2 09/02/2012 Normal [facility] Microbiology Culture: Blood 09/02/2012 [facility] Microbiology Culture: Blood 09/02/2012 [facility] CHEMISTRY Troponin-I <0.02 0.00 - 0.40 09/02/2012 Normal [facility] CHEMISTRY CK MB 0.9 0.5 - 3.6 09/02/2012 Normal [facility] CHEMISTRY Total CK 76 12 - 191 09/02/2012 Normal [facility] CHEMISTRY CK MB Index 1.2 0.0 - 2.5 09/02/2012 Normal [facility] CHEMISTRY BNP 64 <=100 09/02/2012 Normal <sup>11</sup>Interpretive Data: Elevated results are in line with increasing severity of
congestive heart failure. Minor elevations between 100 and 300
may be seen with Myocardial Ischemia, Sodium retaining drugs,
and compensated/treated heart failure. [facility] CHEMISTRY Alk Phos 244 39 - 136 09/02/2012 [facility] CHEMISTRY ALT 43 0 - 65 09/02/2012 Normal [facility] CHEMISTRY AST 40 0 - 37 09/02/2012 [facility] CHEMISTRY Bili Total 0.7 0.2 - 1.3 09/02/2012 Normal [facility] CHEMISTRY A/G Ratio 0.8 0.7 - 1.6 09/02/2012 Normal [facility] CHEMISTRY Globulin 4.4 2.0 - 4.0 09/02/2012 [facility] CHEMISTRY B/C Ratio 20 6 - 25 09/02/2012 Normal [facility] CHEMISTRY Total Protein 7.9 6.4 - 8.4 09/02/2012 Normal [facility] CHEMISTRY BUN 20 7 - 22 09/02/2012 Normal [facility] CHEMISTRY eGFR 54 09/02/2012 NA <sup>5</sup>Result Comment: [...] should be multiplied by the estimated BMI. [facility] CHEMISTRY Calcium Lvl 9.6 8.5 - 10.5 09/02/2012 Normal [facility] CHEMISTRY Albumin Lvl 3.5 3.5 - 5.0 09/02/2012 Normal [facility] CHEMISTRY AGAP 14.9 10.0 - 20.0 09/02/2012 Normal [facility] CHEMISTRY Chloride Lvl 107 95 - 109 09/02/2012 Normal [facility] CHEMISTRY Potassium Lvl 3.9 3.5 - 5.1 09/02/2012 Normal [facility] CHEMISTRY CO2 27 24 - 32 09/02/2012 Normal [facility] CHEMISTRY Creatinine Lvl 1.0 0.5 - 1.4 09/02/2012 Normal [facility] CHEMISTRY Sodium Lvl 145 135 - 145 09/02/2012 Normal [facility] CHEMISTRY Magnesium Lvl 1.7 1.8 - 2.4 09/02/2012 LOW [facility] CHEMISTRY Phosphorus 3.3 2.5 - 4.5 09/02/2012 Normal [facility] HEMATOLOGY INR 0.91 0.85 - 1.17 09/02/2012 Normal <sup>12</sup>Interpretive Data: RECOMMEN DED RANGES FOR PROTIME INR:
2.0-3.0 for most medical and surgical thromboembolic states.
2.5-3.5 for artificial heart valves and recurrent embolism.

INR SHOULD BE USED ONLY FOR PATIENTS ON STABLE ANTICOAGULANT THERAPY. [facility] HEMATOLOGY PTT 37.0 22.9 - 35.8 09/02/2012 HI <sup>13</sup>Interpretive Data: Heparin Therapeutic Range: 57 - 92 Seconds [facility] HEMATOLOGY PT 12.5 12.0 - 14.7 09/02/2012 Normal [facility] HEMATOLOGY Lymphocytes 20.7 20.0 - 40.0 09/02/2012 Normal [facility] HEMATOLOGY Segs 71.9 45.0 - 75.0 09/02/2012 Normal [facility] HEMATOLOGY Basophils 0.3 0.0 - 1.0 09/02/2012 Normal [facility] HEMATOLOGY Segs-Bands # 6.7 1.5 - 8.1 09/02/2012 Normal [facility] HEMATOLOGY Monocytes 5.3 2.0 - 12.0 09/02/2012 Normal [facility] HEMATOLOGY Eosinophils 1.8 0.0 - 4.0 09/02/2012 Normal [facility] HEMATOLOGY Eosinophils # 0.2 0.0 - 0.5 09/02/2012 Normal [facility] HEMATOLOGY Basophils # 0.0 0.0 - 0.2 09/02/2012 Normal [facility] HEMATOLOGY Lymphocytes # 1.9 1.0 - 5.5 09/02/2012 Normal [facility] HEMATOLOGY Monocytes # 0.5 0.0 - 0.8 09/02/2012 Normal [facility] HEMATOLOGY MCH 31.6 27.0 - 31.0 09/02/2012 HI [facility] HEMATOLOGY MCV 93.0 81.0 - 99.0 09/02/2012 Normal [facility] HEMATOLOGY RDW 14.0 11.5 - 14.5 09/02/2012 Normal [facility] HEMATOLOGY MCHC 34.0 32.0 - 36.0 09/02/2012 Normal [facility] HEMATOLOGY Platelet 382 133 - 450 09/02/2012 Normal [facility] HEMATOLOGY MPV 8.9 7.4 - 10.4 09/02/2012 Normal [facility] HEMATOLOGY Hct 44.9 36.0 - 48.0 09/02/2012 Normal [facility] HEMATOLOGY WBC 9.4 3.7 - 10.4 09/02/2012 Normal [facility] HEMATOLOGY Hgb 15.3 12.0 - 16.0 09/02/2012 Normal [facility] HEMATOLOGY RBC 4.83 4.20 - 5.40 09/02/2012 Normal [facility] BEDSIDE GLUCOSE TESTING Gluc POC Lif scn 142 70 - 99 06/26/2012 HI <sup>1</sup>Interpretive Data: Upper Reportable Limit: 200 mg/dL. [facility] CHEMISTRY Sodium Lvl 146 135 - 145 06/26/2012 HI [facility] CHEMISTRY Calcium Lvl 8.1 8.5 - 10.5 06/26/2012 LOW [facility] CHEMISTRY CO2 28 24 - 32 06/26/2012 Normal [facility] CHEMISTRY Chloride Lvl 108 95 - 109 06/26/2012 Normal [facility] CHEMISTRY Potassium Lvl 4.0 3.5 - 5.1 06/26/2012 Normal [facility] CHEMISTRY Albumin Lvl 2.4 3.5 - 5.0 06/26/2012 LOW [facility] CHEMISTRY eGFR 48 06/26/2012 NA <sup>4</sup>Result Comment: [...] should be multiplied by the estimated BMI. [facility] CHEMISTRY Glucose Lvl 164 70 - 99 06/26/2012 HI <sup>7</sup>Interpretive Data: Adult ref erence range values reflect the clinical guidelines
of the [place] [employer]. [facility] CHEMISTRY BUN 15 7 - 22 06/26/2012 Normal [facility] CHEMISTRY Creatinine Lvl 1.1 0.5 - 1.4 06/26/2012 Normal [facility] CHEMISTRY B/C Ratio 14 6 - 25 06/26/2012 Normal [facility] CHEMISTRY Globulin 2.9 2.0 - 4.0 06/26/2012 Normal [facility] CHEMISTRY Total Protein 5.3 6.4 - 8.4 06/26/2012 LOW [facility] CHEMISTRY Bili Total 0.7 0.2 - 1.3 06/26/2012 Normal [facility] CHEMISTRY Alk Phos 317 39 - 136 06/26/2012 [facility] CHEMISTRY ALT 49 0 - 65 06/26/2012 Normal [facility] CHEMISTRY A/G Ratio 0.8 0.7 - 1.6 06/26/2012 Normal [facility] CHEMISTRY AST 53 0 - 37 06/26/2012 HI [facility] CHEMISTRY AGAP 14.0 10.0 - 20.0 06/26/2012 Normal [facility] HEMATOLOGY Eosinophils # 0.2 0.0 - 0.5 [...] Monocytes 10.5 2.0 - 12.0 06/26/2012 Normal [facility] HEMATOLOGY Segs 60.7 45.0 - 75.0 06/26/2012 Normal [facility] HEMATOLOGY Lymphocytes 25.9 20.0 - 40.0 06/26/2012 Normal [facility] HEMATOLOGY MPV 9.0 7.4 - 10.4 06/26/2012 Normal [facility] HEMATOLOGY Platelet 203 133 - 450 06/26/2012 Normal [facility] HEMATOLOGY Hct 36.1 36.0 - 48.0 06/26/2012 Normal [facility] HEMATOLOGY MCH 31.8 27.0 - 31.0 06/26/2012 HI [facility] HEMATOLOGY MCHC 34.1 32.0 - 36.0 06/26/2012 Normal [facility] HEMATOLOGY RDW 13.9 11.5 - 14.5 06/26/2012 Normal [facility] HEMATOLOGY MCV 93.0 81.0 - 99.0 06/26/2012 Normal [facility] HEMATOLOGY WBC 6.3 3.7 - 10.4 06/26/2012 Normal [facility] HEMATOLOGY RBC 3.88 4.20 - 5.40 06/26/2012 LOW [facility] HEMATOLOGY Hgb 12.3 12.0 - 16.0 06/26/2012 Normal [facility] BEDSIDE GLUCOSE TESTING Gluc POC Lif scn 254 70 - 99 06/26/2012 PR <sup>2</sup>Interpretive Data: Upper Reportable Limit: 200 mg/dL. [facility] BEDSIDE GLUCOSE TESTING Gluc POC Lif scn 252 70 - 99 06/25/2012 HI <sup>3</sup>Interpretive Data: Upper Reportable Limit: 200 mg/dL. [facility] BEDSIDE GLUCOSE TESTING Comment1 Notify SAULO/ 06/25/2012 NA [facility] BEDSIDE GLUCOSE TESTING Comment1 Notify RN/ 06/25/2012 NA [facility] CHEMISTRY LDL 55 0 - 129 06/25/2012 Normal [facility] CHEMISTRY HDL 11 >=35 06/25/2012 LOW [facility] CHEMISTRY Chol 102 120 - 200 06/25/2012 LOW [facility] CHEMISTRY CHD Risk 9.27 3.90 - 5.80 06/25/2012 HI [facility] CHEMISTRY Trig 182 0 - 200 06/25/2012 Normal [facility] CHEMISTRY AGAP 12.7 10.0 - 20.0 06/25/2012 Normal [facility] CHEMISTRY Globulin 3.5 2.0 - 4.0 06/25/2012 Normal [facility] CHEMISTRY B/C Ratio 15 6 - 25 06/25/2012 Normal [facility] CHEMISTRY A/G Ratio 0.6 0.7 - 1.6 06/25/2012 LOW [facility] CHEMISTRY eGFR 48 06/25/2012 NA <sup>5</sup>Result Comment: [...] should be multiplied by the estimated BMI. [facility] CHEMISTRY Albumin Lvl 2.2 3.5 - 5.0 06/25/2012 LOW [facility] CHEMISTRY Calcium Lvl 8.2 8.5 - 10.5 06/25/2012 LOW [facility] CHEMISTRY CO2 24 24 - 32 06/25/2012 Normal [facility] CHEMISTRY Chloride Lvl 110 95 - 109 06/25/2012 [facility] CHEMISTRY Glucose Lvl 82 70 - 99 06/25/2012 Normal <sup>8</sup>Interpretive Data: Adult ref erence range values reflect the clinical guidelines
of the [place] [employer]. [facility] CHEMISTRY Potassium Lvl 3.7 3.5 - 5.1 06/25/2012 Normal [facility] CHEMISTRY Creatinine Lvl 1.1 0.5 - 1.4 06/25/2012 Normal [facility] CHEMISTRY Sodium Lvl 143 135 - 145 06/25/2012 Normal [facility] CHEMISTRY Bili Total 0.4 0.2 - 1.3 06/25/2012 Normal [facility] CHEMISTRY AST 53 0 - 37 06/25/2012 [facility] CHEMISTRY Total Protein 5.7 6.4 - 8.4 06/25/2012 LOW [facility] CHEMISTRY BUN 17 7 - 22 06/25/2012 Normal [facility] CHEMISTRY ALT 48 0 - 65 06/25/2012 Normal [facility] CHEMISTRY Alk Phos 220 39 - 136 06/25/2012 [facility] CHEMISTRY Magnesium Lvl 1.7 1.8 - [...] RDW 14.0 11.5 - 14.5 06/25/2012 Normal [facility] HEMATOLOGY Platelet 190 133 - 450 06/25/2012 Normal [facility] MCHC 34.2 32.0 - 36.0 06/25/2012 Normal [facility] HEMATOLOGY MCH 31.9 27.0 - 31.0 06/25/2012 HI [facility] HEMATOLOGY Hgb 11.6 12.0 - 16.0 06/25/2012 LOW [facility] HEMATOLOGY Hct 34.0 36.0 - 48.0 06/25/2012 LOW [facility] HEMATOLOGY WBC 6.4 3.7 - 10.4 06/25/2012 Normal [facility] HEMATOLOGY RBC 3.65 4.20 - 5.40 06/25/2012 LOW [facility] HEMATOLOGY MCV 93.1 81.0 - 99.0 06/25/2012 Normal [facility] EBV VCA IgM 0.03 <=0.89 06/25/2012 Normal <sup>10</sup>Interpretive Data: Index Va lue Results Interpretation
---------
<=0.90 Negative No detectable IgM Antibody.
0.90 - 1.09 Equivocal Repeat testing suggested in 10-14 days.
>=1.10 Positive Significant level of detectable VCA IgM
Antibody, indicative of current or recent
infection. [facility] ROGELIO Negat cameron (06/25/2012 07:12:00) Negati ve 06/25/2012 Normal [facility] CMV IgG React cameron *ABN* (06/25/2012 07:12:00) Non Re active 06/25/2012 ABN [facility] IMMUNOLOGY Hep Bs Ag Negat cameron *NA* (06/25/2012 07:12:00) Negati ve 06/25/2012 NA [facility] Hep C Ab Negat cameron *NA* (06/25/2012 07:12:00) Negati ve 06/25/2012 NA [facility] Hep B Core IgM Negat cameron *NA* (06/25/2012 07:12:00) Negati ve 06/25/2012 NA [facility] IMMUNOLOGY Hep A IgM Negat cameron *NA* (06/25/2012 07:12:00) Negati ve 06/25/2012 [facility] BEDSIDE GLUCOSE TESTING Comment1 Notify RN/ 06/25/2012 NA [facility] CHEMISTRY Troponin-I <0.02 0.00 - 0.40 06/24/2012 Normal [facility] CHEMISTRY Total CK 65 12 - 191 06/24/2012 Normal [facility] CHEMISTRY Troponin-I <0.02 0.00 - 0.40 06/24/2012 Normal [facility] CHEMISTRY Total CK 60 12 - 191 06/24/2012 Normal [facility] CHEMISTRY Magnesium Lvl 1.7 1.8 - 2.4 06/24/2012 LOW [facility] CHEMISTRY AST 75 0 - 37 06/24/2012 [facility] CHEMISTRY Bili Total 0.8 0.2 - 1.3 06/24/2012 Normal [facility] CHEMISTRY ALT 63 0 - 65 06/24/2012 Normal [facility] CHEMISTRY Total Protein 5.5 6.4 - 8.4 06/24/2012 LOW [facility] CHEMISTRY Alk Phos 252 39 - 136 06/24/2012 [facility] CHEMISTRY Calcium Lvl 8.0 8.5 - 10.5 06/24/2012 LOW [facility] CHEMISTRY Albumin Lvl 2.7 3.5 - 5.0 06/24/2012 LOW [facility] CHEMISTRY CO2 25 24 - 32 06/24/2012 Normal [facility] CHEMISTRY Chloride Lvl 105 95 - 109 06/24/2012 Normal [facility] CHEMISTRY Sodium Lvl 139 135 - 145 06/24/2012 Normal [facility] CHEMISTRY Potassium Lvl 4.2 3.5 - 5.1 06/24/2012 Normal [facility] CHEMISTRY Creatinine Lvl 1.5 0.5 - 1.4 06/24/2012 [facility] CHEMISTRY Glucose Lvl 228 70 - 99 06/24/2012 HI <sup>9</sup>Interpretive Data: Adult ref erence range values reflect the clinical guidelines
of the [place] [employer]. [facility] CHEMISTRY BUN 28 7 - 22 06/24/2012 [facility] CHEMISTRY eGFR 33 06/24/2012 NA <sup>6</sup>Result [...] should be multiplied by the estimated BMI. [facility] CHEMISTRY Globulin 2.8 2.0 - 4.0 06/24/2012 Normal [facility] CHEMISTRY A/G Ratio 1.0 0.7 - 1.6 06/24/2012 Normal [facility] CHEMISTRY AGAP 13.2 10.0 - 20.0 06/24/2012 Normal [facility] CHEMISTRY B/C Ratio 19 6 - 25 06/24/2012 Normal [facility] CHEMISTRY Phosphorus 2.1 2.5 - 4.5 06/24/2012 LOW [facility] HEMATOLOGY Lymphocytes 8.9 20.0 - 40.0 06/24/2012 LOW [facility] HEMATOLOGY Segs 83.1 45.0 - 75.0 06/24/2012 HI [facility] HEMATOLOGY Eosinophils 0.3 0.0 - 4.0 06/24/2012 Normal [facility] HEMATOLOGY Monocytes 7.5 2.0 - 12.0 06/24/2012 Normal [facility] HEMATOLOGY Segs-Bands # 6.5 1.5 - 8.1 06/24/2012 Normal [facility] HEMATOLOGY Monocytes # 0.6 0.0 - 0.8 06/24/2012 Normal [facility] HEMATOLOGY Lymphocytes # 0.7 1.0 - 5.5 06/24/2012 LOW [facility] HEMATOLOGY Basophils # 0.0 0.0 - 0.2 06/24/2012 Normal [facility] HEMATOLOGY Eosinophils # 0.0 0.0 - 0.5 06/24/2012 Normal [facility] HEMATOLOGY Basophils 0.2 0.0 - 1.0 06/24/2012 Normal [facility] HEMATOLOGY WBC 7.8 3.7 - 10.4 06/24/2012 Normal [facility] HEMATOLOGY MCHC 33.0 32.0 - 36.0 06/24/2012 Normal [facility] HEMATOLOGY Platelet 178 133 - 450 06/24/2012 Normal [facility] HEMATOLOGY RDW 13.6 11.5 - 14.5 06/24/2012 Normal [facility] HEMATOLOGY MCV 94.6 81.0 - 99.0 06/24/2012 Normal [facility] HEMATOLOGY MCH 31.2 27.0 - 31.0 06/24/2012 HI [facility] HEMATOLOGY RBC 3.85 4.20 - 5.40 06/24/2012 LOW [facility] HEMATOLOGY Hgb 12.0 12.0 - 16.0 06/24/2012 Normal [facility] HEMATOLOGY Hct 36.4 36.0 - 48.0 06/24/2012 Normal [facility] HEMATOLOGY MPV 8.9 7.4 - 10.4 06/24/2012 Normal [facility] Microbiology Culture: Urine 06/24/2012 [facility] URINALYSIS UA Mucus Few / LPF *NA* (06/23/2012 17:36:00) None S een 06/23/2012 NA [facility] URINALYSIS UA Urobilinogen 2.0 0.1 - 1.0 06/23/2012 [facility] URINALYSIS UA Ketones Negat cameron mg/dL *NA* (06/23/2012 17:36:00) Negati ve 06/23/2012 [facility] URINALYSIS UA Protein Negat cameron mg/dL (06/23/2012 17:36:00) Negati ve 06/23/2012 Normal [facility] URINALYSIS UA Blood Small *ABN* (06/23/2012 17:36:00) Negati ve 06/23/2012 ABN [facility] URINALYSIS UA Glucose 500 m g/dL *ABN* (06/23/2012 17:36:00) Negati ve 06/23/2012 ABN [facility] URINALYSIS UA RBC 4 0 - 2 06/23/2012 HI [facility] URINALYSIS UA Nitrite Negat cameron (06/23/2012 17:36:00) Negati ve 06/23/2012 Normal [facility] URINALYSIS UA Bacteria Occas ional /HPF *NA* (06/23/2012 17:36:00) None S een 06/23/2012 [facility] URINALYSIS UA Bili Negat cameron *NA* (06/23/2012 17:36:00) Negati ve 06/23/2012 [facility] URINALYSIS UA Leuk Est Small [...] NA [facility] URINALYSIS UA Color Jayne 06/22/2012 [facility] URINALYSIS UA Urobilinogen 0.1 - [...] cameron *NA* (06/22/2012 10:30:00) Negati ve 06/22/2012 [facility] URINALYSIS UA Ketones Negat cameron mg/dL *NA* (06/22/2012 10:30:00) Negati ve 06/22/2012 [facility] URINALYSIS UA Glucose 50 mg /dL *ABN* (06/22/2012 10:30:00) Negati ve 06/22/2012 ABN [facility] URINALYSIS UA Nitrite Posit cameron *ABN* (06/22/2012 10:30:00) Negati ve 06/22/2012 ABN [facility] URINALYSIS UA Blood Large *ABN* (06/22/2012 10:30:00) Negati ve 06/22/2012 ABN [facility] URINALYSIS UA Mucus Few / LPF *NA* (06/22/2012 10:30:00) None S een 06/22/2012 NA [facility] URINALYSIS UA Hyal Cast 3 0 - 2 06/22/2012 [facility] URINALYSIS UA Bacteria Few / HPF *NA* (06/22/2012 10:30:00) None S een 06/22/2012 NA [facility] URINALYSIS UA RBC 20 0 - 2 06/22/2012 [facility] URINALYSIS UA Sq Epi Many /LPF *ABN* (06/22/2012 10:30:00) Few 06/22/2012 ABN [facility] URINALYSIS UA Leuk Est Large *ABN* (06/22/2012 10:30:00) Negati ve 06/22/2012 ABN [facility] URINALYSIS UA WBC 69 0 - 5 06/22/2012 [facility] CHEMISTRY CK MB Index <0.9 0.0 - 2.5 06/22/2012 Normal [facility] CHEMISTRY Total CK 53 12 - 191 06/22/2012 Normal [facility] CHEMISTRY CK MB <0.5 0.5 - 3.6 06/22/2012 Normal [facility] CHEMISTRY Glucose Lvl 259 70 - 99 06/22/2012 [place] <sup>2</sup>Interpretive Data: Adult ref erence range values reflect the clinical guidelines
of the [place] [employer]. [facility] CHEMISTRY BUN 27 7 - 22 06/22/2012 [facility] CHEMISTRY AGAP 13.7 10.0 - 20.0 06/22/2012 Normal [facility] CHEMISTRY B/C Ratio 17 6 - 25 06/22/2012 Normal [facility] CHEMISTRY Albumin Lvl 3.3 3.5 - 5.0 06/22/2012 LOW [facility] CHEMISTRY CO2 23 24 - 32 06/22/2012 LOW [facility] CHEMISTRY eGFR 31 06/22/2012 NA <sup>1</sup>Result Comment: [...] Lvl 138 135 - 145 06/22/2012 Normal [facility] CHEMISTRY Creatinine Lvl 1.6 0.5 - 1.4 06/22/2012 [facility] CHEMISTRY Bili Total 1.5 0.2 - 1.3 06/22/2012 [facility] CHEMISTRY Alk Phos 222 39 - 136 06/22/2012 [facility] CHEMISTRY ALT 44 0 - 65 06/22/2012 Normal [facility] CHEMISTRY Total Protein 7.4 6.4 - 8.4 06/22/2012 Normal [facility] CHEMISTRY A/G Ratio 0.8 0.7 - 1.6 06/22/2012 Normal [facility] CHEMISTRY Globulin 4.1 2.0 - 4.0 06/22/2012 [facility] CHEMISTRY AST 39 0 - 37 06/22/2012 [facility] CHEMISTRY Lipase Lvl 101 73 - 393 06/22/2012 Normal [facility] HEMATOLOGY Segs-Bands # 12.3 1.5 - 8.1 06/22/2012 [facility] HEMATOLOGY Lymphocytes # 0.8 1.0 - 5.5 06/22/2012 LOW [facility] HEMATOLOGY Basophils 0.1 0.0 - 1.0 06/22/2012 Normal [facility] HEMATOLOGY Monocytes # 0.6 0.0 - 0.8 06/22/2012 Normal [facility] HEMATOLOGY Eosinophils # 0.0 0.0 - 0.5 06/22/2012 Normal [facility] HEMATOLOGY Basophils # 0.0 0.0 - 0.2 06/22/2012 Normal [facility] HEMATOLOGY RBC Morph Jenny l (06/22/2012 09:00:00) 06/22/2012 Normal [facility] HEMATOLOGY Segs 89.7 45.0 - 75.0 06/22/2012 [facility] HEMATOLOGY Plt Morph Jenny l (06/22/2012 09:00:00) 06/22/2012 Normal [facility] Lymphocytes 5.6 20.0 - 40.0 06/22/2012 LOW [facility] HEMATOLOGY Monocytes 4.5 2.0 - 12.0 06/22/2012 Normal [facility] HEMATOLOGY Eosinophils 0.1 0.0 - 4.0 06/22/2012 Normal [facility] RDW 13.9 11.5 - 14.5 06/22/2012 Normal [facility] HEMATOLOGY MCHC 34.2 32.0 - 36.0 06/22/2012 Normal [facility] HEMATOLOGY Platelet 209 133 - 450 06/22/2012 Normal [facility] MPV 9.0 7.4 - 10.4 06/22/2012 Normal [facility] Hgb 13.8 12.0 - 16.0 06/22/2012 Normal [facility] Hct 40.3 36.0 - 48.0 06/22/2012 Normal [facility] MCV 93.7 81.0 - 99.0 06/22/2012 Normal [facility] MCH 32.0 27.0 - 31.0 06/22/2012 [facility] HEMATOLOGY RBC 4.30 4.20 - 5.40 06/22/2012 Normal [facility] WBC 13.8 3.7 - 10.4 06/22/2012 [facility] Pathology Reports No Data Provided for [...] within the kidneys as described above. 01/09/2017 [facility] 2 views DX EXAM: XR CHES T [...] Normal. IMPRESSION: 1. No cardiopulmonary abnormality. 05/10/2016 [facility] Chest 1view DX Chest 1view DX [...] evidence of acute car diopulmonary disease. SL: [id number] 04/07/2016 [facility] Chest 1view DX Patient Name: Jair ANDERSEN : 1935; Age: 80 years y/o Female MR: [id number] Study: Chest 1view DX dated 04/06/2016 Clinical Indication: Chest pain; Comparison: 03/16/2016 Cardiac and mediastinal structures are stable including tortuous thoracic aorta that contains calcification. Slight atelectasis in the left lung base laterally. No other focal infiltrates within the lungs, no edema and no pneumothorax. SL: [id number] 04/06/2016 [facility] 2 views DX EXAM: 2 view(s) of [...] 1935; Age: 80 years y/o Female MR: [id number] * CRANIAL CT without contrast History:Generalized Weakness; [...] evidence of an acute intracranial process. SL: [id number] 10/01/2015 [facility] 1view DX CHEST RADIOGRAP H SINGLE VIEW INDICATION: Chest pain COMPARISON: Chest radiograph 09/22/2015 IMPRESSION: The lungs are underinflated. Grossly, no acute intrathoracic abnormalities are visualized. SL:16 10/01/2015 [facility] Abdomen/Pelvis wo IV contrast CT Abdomen/Pelvis wo [...] CT of the abdomen and pelvis. SL: [id number] 09/22/2015 [facility] 1view DX Study: Chest 1v iew DX Clinical Indication: Coughing Comparison: 02/27/2015 FINDINGS: Cardiac silhouette is normal in size. Mild left basilar atelectasis is seen. No pleural effusion or pneumothorax is noted. The osseous structures are unremarkable. IMPRESSION: Mild left basilar atelectasis SL: [id number] 09/22/2015 [facility] 1view DX CHEST RADIOGRAP H SINGLE VIEW INDICATION: Dyspnea COMPARISON: Chest radiograph 10/10/2014 IMPRESSION: No acute intrathoracic abnormalities are visualized. SL: 16 02/27/2015 [facility] Chest 1view DX EXAMINATION: [facility] 1view CLINICAL HISTORY: Chest pain Since 05/16/2014, no important interval change has occurred. The hypoinflated lungs are clear of consolidation, pleural effusion, and pneumothorax. The heart size remains normal. The thoracic aorta remains mildly tortuous. SL:17 10/10/2014 [facility] Knee 4+ views unilateral DX Le ft knee, 4 views: Exam reason: Pain and swelling. Marginal spurring is noted at the medial joint compartment space associated with slight joint space narrowing. There is no acute fracture or dislocation noted. SL:12 08/22/2014 [facility] w contrast CT EXAM: CT CHEST WITH [...] infiltration. 4. Small hiatal hernia. SL: 05/16/2014 [facility] 1view HISTORY: Shortness of breath. Portable chest one view. Comparison 01/07/2013 Lungs are clear. Heart size normal. There is no pleural effusion or pneumothorax. IMPRESSION: No acute finding SL:13 05/16/2014 [facility] w contrast CT EXAM: CT CHEST WITH [...] in the thoracic spine. SL: 14 01/07/2013 [facility] Consultation Notes No Data Provided for This [...] 72 04/09/2016 [facility] Respitory Rate 16 04/09/2016 [facility] Heart Rate 91 04/09/2016 [facility] Temperature Oral (F) 98.1 F 04/09/2016 [facility] Heart Rate 93 04/09/2016 [facility] Temperature Oral (F) 97.8 F 04/09/2016 [facility] Respitory Rate 16 04/09/2016 [facility] Systolic (mm Hg) 136 04/09/2016 [facility] Diastolic (mm Hg) 72 04/09/2016 [facility] Temperature Oral (F) 98.2 F 04/09/2016 [facility] [...] 54 04/07/2016 [facility] Heart Rate 90 04/07/2016 [facility] Temperature Oral (F) 98.6 F 04/07/2016 [facility] Height 157.48 cm 04/06/2016 [facility] Weight 99.091 04/06/2016 [facility] BMI Calculated 39.96 04/06/2016 [facility] Respitory Rate 18 04/06/2016 [facility] Heart Rate 78 04/06/2016 [facility] Systolic (mm Hg) 178 04/06/2016 [facility] Diastolic (mm Hg) 77 04/06/2016 [facility] Temperature Oral (F) 98.3 F 04/06/2016 [facility] Systolic (mm Hg) 156 10/01/2015 [facility] Diastolic (mm Hg) 60 10/01/2015 [facility] Respitory Rate 18 10/01/2015 [facility] Temperature Oral (F) 98.2 F 10/01/2015 [facility] Heart Rate 74 10/01/2015 [facility] Heart Rate 63 10/01/2015 [facility] Respitory Rate 21 10/01/2015 [facility] Systolic (mm Hg) 161 10/01/2015 [facility] Diastolic (mm Hg) 65 10/01/2015 [facility] Systolic (mm Hg) 166 10/01/2015 [facility] Diastolic (mm Hg) 83 10/01/2015 [facility] Weight 97.273 10/01/2015 [facility] BMI Calculated 39.22 10/01/2015 [facility] Height 157.48 cm 10/01/2015 [facility] Temperature Oral (F) 97.6 F 10/01/2015 [facility] Respitory Rate 17 10/01/2015 [facility] Heart Rate 74 10/01/2015 [facility] Temperature Oral (F) 98.0 F 09/22/2015 [facility] [...] 69 05/02/2015 [facility] Heart Rate 66 05/02/2015 [facility] Temperature Oral (F) 98.0 F 05/02/2015 [facility] Height 157.48 cm 05/02/2015 [facility] BMI Calculated 39.41 05/02/2015 [facility] Weight 97.727 05/02/2015 [facility] Respitory Rate 16 05/02/2015 [facility] Heart Rate 70 05/02/2015 [facility] Systolic (mm Hg) 150 05/02/2015 [facility] Diastolic (mm Hg) 66 05/02/2015 [facility] Temperature Oral (F) 97.7 F 05/02/2015 [facility] [...] 03/01/2015 [facility] Diastolic (mm Hg) 69 03/01/2015 [facility] Temperature Oral (F) 97.7 F 03/01/2015 [facility] [...] 78 10/10/2014 [facility] Heart Rate 72 10/10/2014 [facility] Temperature Oral (F) 97.6 F 10/10/2014 [facility] BMI Calculated 37.39 10/10/2014 [facility] Weight 92.727 10/10/2014 [facility] Height 157.48 cm 10/10/2014 [facility] Heart Rate 70 08/23/2014 [facility] Temperature Oral (F) 98.1 F 08/23/2014 [facility] [...] 08/23/2014 [facility] Systolic (mm Hg) 163 08/23/2014 [facility] Temperature Oral (F) 98.1 F 08/22/2014 [facility] Respitory Rate 18 08/22/2014 [facility] BMI Calculated 37.94 08/22/2014 [facility] Weight 94.091 08/22/2014 [facility] Height 157.48 cm 08/22/2014 [facility] Diastolic (mm Hg) 60 05/16/2014 [facility] Respitory Rate 16 05/16/2014 [facility] Heart Rate 80 05/16/2014 [facility] Systolic (mm Hg) 159 05/16/2014 [facility] Systolic (mm Hg) 159 05/16/2014 [facility] Diastolic (mm Hg) 60 05/16/2014 [facility] Heart Rate 88 05/16/2014 [facility] Respitory Rate 16 05/16/2014 [facility] Respitory Rate 18 05/16/2014 [facility] Heart Rate 91 05/16/2014 [facility] Diastolic (mm Hg) 68 05/16/2014 [facility] Systolic (mm Hg) 148 05/16/2014 [facility] Temperature Oral (F) 98.1 F 05/16/2014 [facility] Weight 92.727 05/16/2014 [facility] BMI Calculated 37.39 05/16/2014 [facility] Height 157.48 cm 05/16/2014 [facility] Systolic (mm Hg) 160 01/09/2013 [facility] Diastolic (mm Hg) 87 01/09/2013 [facility] Respitory Rate 18 01/09/2013 [facility] Temperature Oral (F) 97.8 F 01/09/2013 [facility] Heart Rate 90 01/09/2013 [facility] Diastolic (mm Hg) 80 01/09/2013 [facility] Systolic (mm Hg) 150 01/09/2013 [facility] Respitory Rate 18 01/09/2013 [facility] Temperature Oral (F) 97.4 F 01/09/2013 [facility] Heart Rate 96 01/09/2013 [facility] Respitory Rate 18 01/09/2013 [facility] Systolic (mm Hg) 149 01/09/2013 [facility] Temperature Oral (F) 97.3 F 01/09/2013 [facility] Heart Rate 97 01/09/2013 [facility] Diastolic (mm Hg) 81 01/09/2013 [facility] Height 157.48 cm 01/08/2013 [facility] Weight 93.636 01/08/2013 [facility] Weight 90.455 01/08/2013 [facility] Height 157.48 cm 01/08/2013 [facility] Heart Rate 90 09/03/2012 [facility] Respitory Rate 20 09/03/2012 [facility] Temperature Oral (F) 98.4 F 09/03/2012 [facility] Systolic (mm Hg) 149 09/03/2012 [facility] Diastolic (mm Hg) 81 09/03/2012 [facility] Temperature Oral (F) 97.8 F 09/03/2012 [facility] Respitory Rate 20 09/03/2012 [facility] Heart Rate 78 09/03/2012 [facility] Systolic (mm Hg) 151 09/03/2012 [facility] Diastolic (mm Hg) 84 09/03/2012 [facility] Respitory Rate 16 09/03/2012 [facility] Heart Rate 86 09/03/2012 [facility] Temperature Oral (F) 97.6 F 09/03/2012 [facility] Diastolic (mm Hg) 83 09/03/2012 [facility] Systolic (mm Hg) 157 09/03/2012 [facility] Height 157.48 cm 09/02/2012 [facility] Weight 92.500 09/02/2012 [facility] Height 157.48 cm 09/02/2012 [facility] Weight 92.727 09/02/2012 [facility] Respitory Rate 20 06/26/2012 [facility] Temperature Oral (F) 97.8 F 06/26/2012 [facility] Diastolic (mm Hg) 87 06/26/2012 [facility] Heart Rate 88 06/26/2012 [facility] Systolic (mm Hg) 150 06/26/2012 [facility] Respitory Rate 18 06/26/2012 [facility] Respitory Rate 18 06/26/2012 [facility] Temperature Oral (F) 98.0 F 06/26/2012 [facility] Heart Rate 70 06/26/2012 [facility] Systolic (mm Hg) 127 06/26/2012 [facility] Diastolic (mm Hg) 82 06/26/2012 [facility] Diastolic (mm Hg) 75 06/26/2012 [facility] Systolic (mm Hg) 123 06/26/2012 [facility] Heart Rate 72 06/26/2012 [facility] Temperature Oral (F) 98.1 F 06/26/2012 [facility] Weight 95.000 06/23/2012 [facility] Height 177.80 cm 06/23/2012 [facility] Height 157.48 cm 06/22/2012 [facility] Weight 95.000 06/22/2012 [facility] Encounters Location Location Details Encounter Type Encounter Number Reason For Visit Attending Provider ADM Date DC Date Status Source [facility] Emergency [id number] ROLO GEORGE 06/22/2012 06/22/2012 Discharged [facility] Inpatient [id number] PHOEBE HERZOG 06/23/2012 06/26/2012 Discharged [facility] OU [id number] REACTIVE AIRWAY, WHEEZING, PNEUMONIA BRANDO MUKHERJEEK 09/02/2012 09/03/2012 Active [facility] Inpatient [id number] ZENOBIA RICKIE 01/08/2013 01/09/2013 Discharged [facility] AUDIT [id number] 06/22/2013 06/22/2013 [facility] ECL, Provi addy: SHERMAN,NLEIDA, Status: Pen, Time: 1:30 PM [id number] 06/23/20 13 06/22/2013 [facility] [id number] Bradley Owens 05/16/2014 05/16/2014 [facility] [id number] Jaxson Portereal 08/22/2014 08/23/2014 [facility] [id number] Nikki Cortes 10/10/2014 10/10/2014 [facility] Outpatient [id number] EM ARANGO 02/14/[address] [facility] Inpatient [id number] Phoebe Herzog 02/27/2015 03/01/2015 [facility] [id number] 08 Debby Glasgowr 05/02/2015 05/02/2015 [facility] Outpatient [id number] ME ARANGO 05/10/2015 Active [facility] Outpatient [id number] EM ARANGO 08/10/[address] [facility] [id number] Rishi Villalobostyler 09/22/2015 09/22/2015 [facility] [id number] Jaxson Morel 10/01/2015 10/01/2015 [facility] Outpatient [id number] EM NBA 11/09/2015 Active [facility] Outpatient [id number] EM ARANGO 02/08/2016 Active [facility] [place] Out[facility] Di[facility] Services [id number] 19 Novembermarbella Moeller 03/16/2016 03/17/2016 [facility] Emergency [id number] Martín Burton 04/06/2016 04/07/2016 [facility] Inpatient [id number] Aviva Cruz 04/07/2016 04/09/2016 [facility] Outpatient [id number] Jairmarbella Moeller 04/16/2016 04/17/2016 [facility] Outpatient [id number] EM ARANGO 05/10/2016 Active [facility] Di[facility] [id number] Em Arango 05/10/2016 05/11/2016 [facility] Outpatient [id number] EM ARANGO 08/06/2016 Active [facility] Outpatient [id number] EM ARANGO 11/05/2016 Active [facility] [place] [facility] Di[facility] Services [id number] Chaka Dewey Molina 01/09/2017 01/10/2017 [facility] [place] Outpatient [id number] EM ARANGO 02/04/2017 Active [facility] Outpatient [id number] EM ARANGO 05/07/2017 Active [facility] Phone Message [id number] 07/09/2017 07/11/2017 [facility] Phone Message [id number] 07/26/2017 07/28/2017 [facility] Outpatient [id number] EM ARANGO 08/05/2017 Active [facility] Outpatient [id number] Em Arango 08/05/2017 08/06/2017 [facility] Phone Message [id number] 09/09/2017 09/11/2017 [facility] Phone Message [id number] 10/28/2017 10/30/2017 [facility] Phone Message [id number] 11/08/2017 11/10/2017 [facility] Phone Message [id number] 11/12/2017 11/14/2017 [facility] Phone Message [id number] 11/20/2017 11/22/2017 [facility] Outpatient [id number] EM ARANGO 12/09/2017 Active [facility] Phone Message [id number] 12/09/2017 12/11/2017 [facility] Outpatient [id number] Em Arango 12/09/2017 12/10/2017 [facility] Phone Message [id number] 12/18/2017 12/20/2017 [facility] Phone Message [id number] 03/07/2018 03/09/2018 [facility] Outpatient [id number] EM ARANGO 03/13/2018 Active [facility] Ambulatory Pre-Reg [id number] Em Shiver 03/13/2018 03/13/2018 [facility] Outpatient [id number] EM VIRGIEVER 04/09/2018 Active [facility] Outpatient [id number] Em Shiver 04/09/2018 04/10/2018 [facility] Outpatient [id number] EM VIRGIEVER 05/23/2018 Active [facility] Ambulatory Pre-Reg [id number] Em Virgiever 05/23/2018 05/23/2018 [facility] Phone Message [id number] 06/03/2018 06/05/2018 [facility] Phone Message [id number] 06/13/2018 06/15/2018 [facility] Outpatient [id number] EM NBA 07/08/2018 Active [facility] Outpatient [id number] Em Nba 07/08/2018 07/09/2018 [facility] Phone Message [id number] 07/09/2018 07/11/2018 [facility] Phone Message [id number] 08/06/2018 08/08/2018 [facility] Phone Message [id number] 08/29/2018 08/31/2018 [facility] Phone Message [id number] 09/22/2018 09/24/2018 [facility] Phone Message [id number] 10/07/2018 10/09/2018 [facility] Outpatient [id number] Em Arango 01/06/2019 Active [facility] Outpatient [id number] Em Aragno 01/06/2019 01/07/2019 [facility] Phone Message [id number] 01/30/2019 02/01/2019 [facility] Phone Message [id number] 05/04/2019 05/06/2019 [facility] Phone Message [id number] 05/11/2019 05/13/2019 [facility] Phone Message [id number] 05/25/2019 05/27/2019 [facility] Phone Message [id number] 05/25/2019 05/27/2019 [facility] Outpatient [id number] Em Arango 06/25/2019 Active [facility] Outpatient [id number] Em Arango 06/25/2019 06/26/2019 [facility] Phone Message [id number] 07/08/2019 07/10/2019 [facility] Phone Message [id number] 08/03/2019 08/05/2019 [facility] Phone Message [id number] 08/14/2019 08/16/2019 [facility] Phone Message [id number] 08/14/2019 08/16/2019 [facility] Phone Message [id number] 08/14/2019 08/16/2019 [facility] Phone Message [id number] 08/17/2019 08/19/2019 [facility] Phone Message [id number] 08/27/2019 08/29/2019 [facility] [facility] Phone Message [id number] 10/05/2019 10/07/2019 [facility] Phone Message [id number] 12/15/2019 12/17/2019 [facility] Outpatient [id number] Em Arango 12/22/2019 [facility] [id number] Em Arango 12/22/2019 Active [facility] Ambulatory Pre-Reg [id number] Em Arango 12/22/2019 12/22/2019 [facility] Outpatient [id number] Em Arango 12/22/2019 12/23/2019 [facility] Phone Message [id number] 02/09/2020 02/11/2020 [facility] Phone Message [id number] 03/29/2020 03/31/2020 [facility] Internal Medicine [facility] Phone Message [id number] 03/29/2020 03/31/2020 Medical [facility] Internal Medicine [facility] Phone Message [id number] 04/28/2020 04/30/2020 Medical [facility] Internal Medicine [facility] Phone Message [id number] 05/03/2020 05/05/2020 Medical [facility] Outpatient [id number] Em Garvinindira 06/23/2020 Active [facility] Procedures Procedure Code Date Perfomer Comments Source Eye examination<sup>1</sup> 36 [id number] 11/19/2017 Diabetic Eye Exam: 11/2017-cataract [facility] Hysterectomy [id number] 06/24/2017 [facility] Eye examination<sup>2</sup> 36 [id number] 11/16/2016 Diabetic Eye Exam-Normal exam. [facility] Arthroscopy of knee with meniscus repair [id number] [facility], SELAM Jovani, [facility] [place],[facility] Cataract surgery [id number] [facility], SARAH Hahn, [facility] [place],[facility] Hernia repair [id number] [facility], SELAM Jovani, [facility] [place],[facility], [facility] [place] Arthroscopy of knee with meniscus repair [id number] [facility] Cataract surgery [id number] [facility] Hernia repair [id number] [facility] Diabetic retinal eye exam<sup>3</sup> [id number] 08/2018 - normal [facility] Diabetic retinal eye exam<sup>2</sup> [id number] 08/2018 - normal [facility] Assessment and Plan Assessment and Plan Date Source Extracted from:Title: Clinical Document Author: Aviva Cruz MD Date: 04/09/16 [facility] Hospitalist Discharge Summary [facility] Aviva Cruz MD Attending Physician: Aviva Cruz [...] w/ DM II, HTN, HLD, CKD III, COOKER SULFITE D, hepatic steatosis, and hx recurrent UTIs [...] spent: >45mins [facility] Providers Internal Medicine, Hospitalist Aviva Cruz MD Extracted from:Title: Clinical Document Author: Pau Shoemaker MD Date: 04/09/16 [facility] INFECTIOUS DISEASE CONSULTATION NOTE Pau Shoemaker M.D. Robert Fajardo M.D. REFERRING PHYSICIAN: Dr. Aviva Cruz REASON [...] Document Author: Aviva Cruz MD Date: 04/08/16 [facility] Daily Progress Note [facility] Aviva Cruz MD CC: f/u sepsis 2/2 [...] w/ DM II, HTN, HLD, CKD III, COOKER SULFITE D, hepatic steatosis, and hx recurrent UTIs [...] HDS and specia tion of GNR 04/09/2016 [facility] Extracted from:Title: Clinical Document Author: Phoebe Herzog MD Date: 02/27/15 [facility] Daily Progress Note [facility] Phoebe Herzog MD SUBJECTIVE: pt seen and [...] (Completed) olmesartan (Benicar) Continuous Infusions: None 03/01/2015 [facility] Plan of Care No Data Provided for [...] to see Dr. Finch. 02/14/2015 [facility] Social History TypeResponse Substance Abuse Use: None. [...] (Active) Being A Social Drinker (Active) 06/22/2013 [facility] Family History Value Date S ource Paternal history of Hypertension (V17.49 ); (Active) Paternal history of Stroke Syndrome (V17.1); (Active) Paternal history of Diabetes Mellitus (V18.0); (Active) Maternal history of Leukemia (V16.6); (Active) 06/22/2013 [facility] Advance Directives Order Name Results Value Date Source Advance Directives Advance Dir ectives No Advance Directives available. 06/22/2013 [facility] Functional Status No Data Provided for This Section
--- OUTSIDE RECORDS SUMMARY | 2020-05-10 09:34 | XMS REPORT | Continuity of Care Document ---
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 Name Role Phone Artemio HARTMANN PCP Unavailable [...] Date Expiration Date Yousuf cameronneto MEDICAREMEDICARE A [id number] 1999-PresentMedicare [id number] 1998 00:00:[address] [facility] OTHER-COMMERCIALGENERIC [id number]/07/2002-Present [id number] 2002 00:00:00 [facility] MEDICARE PART A AND B [id number] 1998 00:00:00 [facility] [id number] 2002 00:00:00 MEDICAREMEDICARE PART A AND [id number] 1998[place] [id number] 1998 00:00:00 [facility] [employer] [id number] 2002-PresentComm ercial [id number] 2002 00:00:00 [facility] [id number] 2002 00:00:00 [facility] Medicare A & B [id number] 1998 00:00:00 [facility] Problems Condition Name Condition Details Condition Category Status Onset Date Resolution Date Last Treatment Date Treating Clinician Comments Source Intractable back pain Intractable back pain Disease Active 202 00:00:00 Al gee Renal insufficiency Renal insufficiency Disease Active 2019-05-30 00[facility]00 [facility] Fat[facility] Fatigue Disease Active 2019-03-20 00:00:00 MD Rios Liver fibrosis Liver fibrosis Disease Active 2019-01-29 00:00:00 [facility] Endometrial cancer Endometrial cancer Disease Active 2018-07-02 00:00: 00 [facility] Slow transit constipation Slow transit constipation Disease Ac tive 2018-06-10 00:00:00 MD Rios Chronic kidney disease Chronic kidney disease Disease Active 2018-06-07 00:00:00 MD Rios Generalized abdominal pain Generalized abdominal pain Disease Active 2018-06-06 00:00:00 MD Rios Cancer screening Cancer screening Disease Active 2018-04-09 00:00:00 [facility] Degenerative lumbar spinal stenosis Degenerative lumbar spinal s tenosis Disease Active 2017-05-23 00:00:00 MD Pauline gibson Malignant neoplasm of endometrium Malignant neoplasm of endometr ium Disease Active 2017-05-17 00:00:00 Overview : Added automatically from request for surgery [id number] MD Rios Endometrium thickened Endometrium thickened Disease Active 201 01-27-25 00:00:00 Overview: Added automatically fr om request for surgery [id number] MD Rios Paroxysmal atrial fibrillation Paroxysmal atrial [...] [place] Diagnosis Active 2015-09-22 00:00:00 2015-09-22 11:11:00 [facility] EYE REDNESS/EYE PAIN EYE REDNESS/EYE PAIN Active 05/02/2015 [facility] Diagnosis Active 2015-05-02 00:00:00 2015-05-02 14:35:00 [facility] AECOPD, BRONCHITIS AECO PD, BRONCHITIS Active 02/26/2015 [facility] Diagnosis Active 2015-02-26 00:00:00 2015-03-01 10:46:00 [facility] S.O.B S.O. B Active 02/26/2015 [facility] Active 2015-02-26 00:00:00 2015-02-27 02:18:00 [facility] CONGESTION SCOTTIE ESTION Active 10/10/2014 [facility] Active 2014-10-10 00:00:00 2014-10-10 11:50:00 [facility] LEG SWELLING LEG SWELLING Active 08/22/2014 [facility] Active 2014-08-22 00:00:00 2014-08-22 20:14:00 [facility] CONGESTED SCOTTIE ESTED Active 05/16/2014 [facility] Active 2014-05-16 00:00:00 2014-05-16 12:44:00 [facility] Hyperlipidemia Hyperlipidemia Disease Active 2013-02-04 00:00:00 Last Assessment & Plan: Treated with atorvastatin. From a liver standpoint there is no contraindication for the continued use of cholesterol lowering agents including statins if deemed necessary. Optimal control of the hyperlipidemia will be essential to help prevent the accelerated progression of her liver disease. Continued monitoring and management will be deferred to her treating physician. [facility] Abnormal liver function test Abnormal liver function [...] to assess bile duct anatomy will considered. [facility] Obesity Obesity Disease Active 2013-02-04 00:00:00 Last [...] eliminating a risk factor for fatty liver. [facility] Immunity status testing Immunity status testing Disease Active 2013-02-04 00:00:00 Last Assessment & Plan: All patients with chronic liver disease, regardless of etiology, should be immunized to prevent hepatitis A and hepatitis B if they are not already immune. We will test for immunity to both viruses - vaccine recommendations will follow. [facility] PNEUMONIA,DYSPNEA PNEU MONIA,DYSPNEA Active 01/07/2013 [facility] Active 2013-01-07 08:00:00 2013-01-09 13:32:00 [facility] SHORTNESS OF BREATH SHOR TNESS OF BREATH Active 09/02/2012 [facility] Active 2012-09-02 00:00:00 2012-09-02 13:40:00 [facility] REACTIVE AIRWAY, WHEEZING, PNEUMONIA REACTIVE AIRWAY, WHEEZING, PNEUMONIA Active 09/02/2012 [facility] Diagnosis Ac tive 2012-09-02 00:00:00 2012-09-04 09:02:00 [facility] FEVER,UTI FEVE R,UTI Active 06/23/2012 [facility] Active 2012-06-23 00:00:00 2012-06-25 09:04:00 [facility] RE-VISIT RE-V ISIT Active 06/23/2012 [facility] Active 2012-06-23 00:00:00 2012-06-23 19:05:00 [facility] SICK SICK Active 06/22/2012 [facility] Active 2012-06-22 05:00:00 2012-06-22 09:24:00 [facility] Vitamin D deficiency (disorder) Vitamin D deficiency (disorder) Active 04/16/2011 Problem 05/07/2020 [facility] migrated [email or web address] on 12/20/14. [facility], SARAH Hahn, SARAH Ricketts,[facility], [facility] [place] Problem Active 2011-04-16 00:00:00 2020-05-07 00:19:13 Balbina Hahn Hyperlipidemia (disorder) Hype rlipidemia (disorder) Active 08/03/2010 Problem 05/07/2020 Data migrated from [employer] on 12/20/14. [facility], SARAH Hahn, SARAH Ricketts, [place], [facility] [place] Problem Active 2010-08-03 00:00:00 2020-05-07 00:19:13 Balbina Hahn Obesity (disorder) Obes ity (disorder) Active 08/03/2010 Problem 05/07/2020 Data migrated from [employer] on 12/20/14. [facility], SARAH Hahn, SARAH Ricketts,[facility], [facility] [place] Problem Active 2010-08-03 00:00:00 2020-05-07 00:19:13 emomague Hahn Osteoporosis (disorder) Oste oporosis (disorder) Active 08/03/2010 Problem 05/07/2020 Data migrated from [employer] on 12/20/14. [facility], SARAH Hahn, SARAH Ricketts,[facility], [facility] [place] Problem Active 2010-08-03 00:00:00 2020-05-07 00:19:13 Balbina Hahn History of malignant neoplasm of endometrium History o f malignant neoplasm of endometrium Problem Resolved [facility] History of Acute cystitis with hematuria History of Ac emilie cystitis with hematuria Problem Resolved [facility] History of Acute pharyngitis due to other specified or ganisms History of Acute pharyngitis due to other specified organisms Problem Resolved [facility] History of essential hypertension History of essential hypertens ion Problem Active [facility] History of contact dermatitis History of contact dermatitis Problem Resolved [facility] History of Fatty liver History of Fatty liver Problem Resolved [facility] History of hematuria History of hematuria Problem Resolved [facility] History of herpes zoster History of herpes zoster Problem Resolved [facility] History of Periorbital ecchymosis of right eye History of Periorbital ecchymosis of right eye Problem Resolved [facility] History of Sepsis due to Escherichia coli History of S epsis due to Escherichia coli Problem Resolved [facility] History of Skin candidiasis History of Skin candidiasis Problem Resolved [facility] History of Symptoms of upper respiratory infection (UR I) History of Symptoms of upper respiratory infection (URI) Problem Resolved [facility] History of urinary frequency History of urinary frequency Problem Re solved [facility] Personal history of urinary tract infection Personal h istory of urinary tract infection Problem Resolved [facility] History of hyperlipidemia History of hyperlipidemia Problem Active [facility] Venous stasis Venous stasis Problem Active [facility] Spinal stenosis Spinal stenosis Problem Active [facility] Non-smoker Non-smoker Problem Active [facility] Advance directive discussed with patient Advance direc tive discussed with patient Problem Active [facility] At low risk for fall At low risk for fall Problem Active [facility] Depression screening negative Depression screening negative Problem Active [facility] Need for pneumococcal vaccination Need for pneumococcal vaccinat ion Problem Active [facility] Chronic anticoagulation Chronic anticoagulation Problem Active [facility] 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 Problem Active [facility] Persistent atrial fibrillation Persistent atrial fibrillation Problem Active [facility] BMI 39.0-39.9,adult BMI 39.0-39.9,adult Problem Active [facility] Gout Gout Problem Active [facility] Chronic obstructive pulmonary disease, unspecified VACUUM CASTER D type Chronic obstructive pulmonary disease, unspecified COPD type Problem Active [facility] Diabetes mellitus Diabetes mellitus Problem Active [facility] Urinary incontinence Urinary incontinence Problem Active [facility] Lumbar spinal stenosis Lumbar spinal stenosis Problem Active [facility] Endometrial cancer, grade I Endometrial cancer, grade I Problem Active [facility] Fatigue Fatigue Problem Active [facility] Hospital discharge follow-up Hospital discharge follow-up Problem Active [facility] Septicemia Septicemia Problem Active [facility] Closed fracture of sacrum and coccyx, initial encounte r Closed fracture of sacrum and coccyx, initial encounter Problem Active [facility] UTI symptoms UTI symptoms Problem Active [facility] Compression fracture of L2 vertebra with routine heali ng, subsequent encounter Compression fracture of L2 vertebra with routine healing, subsequent encounter Problem Active [facility] CKD (chronic kidney disease), stage III CKD (chronic kidney disease), stage III Problem Active [facility] Blepharitis of lower eyelids of both eyes, unspecified type Blepharitis of lower eyelids of both eyes, unspecified type Problem Active [facility] Arthritis (disorder) Arth ritis (disorder) Resolved Problem 05/07/2020 [facility], SARAH Hahn, [facility] [place], [place], [facility] [place] Problem Resolved 2020-05-07 00:19:13 Balbina Hahn Varicella (disorder) Vari ayah (disorder) Resolved Problem 05/07/2020 [facility], SARAH Hahn, [facility] [place], [facility], [facility] [place] Problem Resolved 2020-05-07 00:19:13 Balbina Hahn Chronic obstructive lung disease (disorder) Chronic obstructive lung disease (disorder) Resolved Problem 05/07/2020 [facility], SARAH Hahn, [facility] [place], [facility], [facility] [place] Problem Resolved 2020-05-07 00:19:13 Benjaminor jasen Hahn Diabetes mellitus (disorder) D iabetes mellitus (disorder) Resolved Problem 05/07/2020 [facility], SARAH Hahn, [facility] [place],[facility], [facility] [place] Problem Resolved 2020-05-07 00:19:13 [facility] Pneumonia (disorder) Pneu monia (disorder) Resolved Problem 05/07/2020 [facility], SARAH Hahn, [facility] [place],[facility], [facility] [place] Problem Resolved 2020-05-07 00:19:13 [facility] Peptic ulcer (disorder) Pept ic ulcer (disorder) Resolved Problem 05/07/2020 [facility], SARAH Hahn, [facility] [place],[facility], [facility] [place] Problem Resolved 2020-05-07 00:19:13 [facility] Arthritis Arth ritis Resolved Problem 01/11/2013 [facility] Problem Resolved 2013-01-11 21:18:03 wayne Hahn Pneumonia Pneu monia Resolved Problem 01/11/2013 [facility] Problem Resolved 2013-01-11 21:18:03 M wayne Hahn Decreased vitamin D (finding) Decreased vitamin D (finding) Active Problem 05/07/2020 [facility], SARAH Hahn, [facility] [place], [facility], [facility] [place] Problem Active 2020-05-07 00: 19:13 Balbina Hahn History of urinary tract infection (situation) History of urinary tract infection (situation) Active Problem 05/07/2020 [facility] Problem Active 2020-05-07 00:19:13 Balbina Hahn Hypernatremia (disorder) Hype rnatremia (disorder) Active Problem 05/07/2020 [facility] Problem Active 2020-05-07 00: 19:13 Balbina Hahn Mixed hyperlipidemia (disorder) Mixed hyperlipidemia (disorder) Active Problem 05/07/2020 [facility], SARAH Hahn, [facility] [place], [facility], [facility] [place] Problem Active 2020-05-07 00: 19:13 Balbina Hahn Morbid obesity (disorder) Morb id obesity (disorder) Active Problem 05/07/2020 [facility], SARAH Hahn, [facility] [place], [facility], [facility] [place] Problem Active 2020-05-07 00:19:13 Balbina Hahn Steatosis of liver (disorder) Steatosis of liver (disorder) Active Problem 05/07/2020 Data m igrated from [facility] on 12/20/14. [facility], SARAH Hahn, [facility] [place], [facility], [facility] [place] Problem Active 2020-05-07 00:19:13 Balbian Hahn Subclinical hypothyroidism (disorder) Subclinical hypothyroidism (disorder) Active Problem 05/07/2020 [facility] Problem Active 2020-05-07 00:19:13 Jessy Hahn Diabetes mellitus type 2 in obese (disorder) Diabetes mellitus type 2 in obese (disorder) Active Problem 05/07/2020 [facility], SARAH Hahn, [facility] [place],[facility], [facility] [place] Problem Active 2020-05-07 00:19:13 Balbina Hahn Hypertensive disorder, systemic arterial (disorder) Hypertensive disorder, systemic arterial (disorder) Active Problem 05/05/2015 [facility] Problem Active 2015-05-05 06:47:51 Balbina Hahn Diabetes mellitus Diab etes mellitus Active Problem 01/11/2013 [facility] Problem Active 2013-01-11 21:18:03 [facility] Hypertension Hype rtension Active Problem 01/11/2013 [facility] Problem Active 2013-01-11 21:18:03 Nc josé miguel Hahn Sore throat symptom (finding) Sore throat symptom (finding) Active Problem 05/07/2020 [facility] Problem Active 2020-05-07 00:19:13 [facility] FEVER NOS FEVE R NOS Active [facility] Active 2012-06-25 09:04:00 [facility] [place] ASTHMA NOS ASTH MA NOS Active [facility] Active 2012-09-04 09:02:00 [facility] PNEUMONIA, ORGANISM NOS PNEU MONIA, ORGANISM NOS Active [facility] Active 2013-01-09 13:32:00 [facility] CHR AIRWAY OBSTRUCT NEC CHR AIRWAY OBSTRUCT NEC Active [facility] Active 2015-03-01 10:46:00 [facility] BRONCHITIS NOS BRON CHITIS NOS Active [facility] Active 2015-03-01 10:46:00 [facility] SEPSIS DUE TO UNSPECIFIED STAPHYLOCOCCUS SEPSIS DUE TO UNSPECIFIED STAPHYLOCOCCUS Active [facility] Active 2016-04-10 14:01:00 [facility] ANEMIA, UNSPECIFIED ANEM IA, UNSPECIFIED Active [facility] Active 2016-04-16 12:32:00 [facility] [place] Discharge Diagnosis: Hyperkalemia Discharge Diagnosis: Hyperkalemia 04/06/2016 04/09/2016 [facility] Problem 2 05:00:00 2016-04-09 03:52:45 2016-04-09 03:52:45 [facility] Discharge Diagnosis: Acute UTI Discharge Diagnosis: Acute UTI 10/01/2015 10/04/2015 [facility] Problem 2015 06:00:00 2015-10-04 01:20:51 2015-10-04 01:20:51 [facility] Discharge Diagnosis: Generalized weakness Discharge Diagnosis: Generalized weakness 10/01/2015 10/04/2015 [facility] Problem 2015-10-01 06:00:00 2015-10-04 01:20:51 2015-10-04 01:20:51 [facility] Discharge Diagnosis: Acute bronchitis Discharge Diagnosis: Acute bronchitis 10/10/2014 10/12/2014 [facility] Problem 2014-10-10 05:00:00 2014-10-12 18:27:58 2014-10-12 18:27:58 [facility] Discharge Diagnosis: Cellulitis Discharge Diagnosis: Cellulitis 08/22/2014 08/24/2014 [facility] Problem 201 11-20-00 06:00:00 2014-08-24 14:10:44 2014-08-24 14:10:44 [facility] Discharge Diagnosis: Acute Bronchitis Discharge Diagnosis: Acute Bronchitis 05/16/2014 05/19/2014 Gaurav Problem 2014-05-16 05:00:00 2014-05-19 02:38:33 2014-05-19 02:38:33 [facility] History of Past Illness Condition Name Condition Details Condition Category Status Onset Date Resolution Date Last Treatment Date Treating Clinician Comments Source Upper respiratory infection (disorder) Upper respiratory infection (disorder) Resolved 01/19/2013 Problem 05/07/2020 Data migrated from [employer] on 02/04/15. [facility], SARAH Hahn, SARAH Ricketts, Gaurav, SARAH [place] Problem Resolved 2013-01-19 00:00:00 2020-05-07 00:19:13 2020-05-07 00:19:13 [facility] Urinary tract infectious disease (disorder) Urinary tract infectious disease (disorder) Resolved 04/17/2012 Problem 05/07/2020 Data migrated from [employer] on 02/04/15. [facility], SARAH Hahn, SARAH Ricketts, Gaurav, SARAH [place] Problem Resolved 2012-04-17 00:00:00 2020-05-07 00:19:13 2020-05-07 00:19:13 M wayne Hahn Disorder associated with type II diabetes melliltus (d isorder) Disorder associated with type II diabetes melliltus (disorder) Resolved 08/03/2010 Problem 05/07/2020 Data migrated from [employer] on 12/20/14. [facility], SARAH Hahn, SARAH Ricketts, Gaurav, SARAH [place] Problem Resolved 2010-08-03 00:00:00 2020-05-07 00:19:13 2020-05-07 00:19:1 3 [facility] Allergies, Adverse Reactions, Alerts Allergy Name Allergy Type Status Severity Reaction(s) Onset Date Inacti ve Date Treating Clinician Comments Source No Known Allergies DA Active U 2019-09-14 00:00:00 [facility] Ciprofloxacin Allergy to Substance Active 2019-08-19 00:00: 00 [facility] Levofloxacin Allergy to Substance Active 2019-08-19 00:00:0 0 [facility] Allopurinol Analogues Propensity to adverse reactions Active Rash 2017-04-04 00:00:00 itching [facility] No Known Drug Intolerances DA Active U 2009-05-06 00:00:0 0 [facility] No Known Contrast Allergies DA Active U 2004-05-29 00:00: 00 [facility] No Known Drug Allergies DA Active U 2004-05-29 00:00:00 [facility] No Known Food Allergies DA Active U 2004-05-29 00:00:00 [facility] No Known Other Allergies DA Active U 2004-05-29 00:00:00 [facility] Cipro TABS Allergy to drug (finding) Active [facility] Levaquin TABS Allergy to drug (finding) Active [facility] Sulfa Drugs Allergy to drug (finding) Active [facility] Nitrofurantoin CAPS Allergy to drug (finding) Active [facility] No Known Medication Allergies No Known Medication Allergies Active [facility] Family History Family Member Diagnosis Comments Start Date Stop Date Source Mother Family history of Leukemia [facility] Father Family history of Hypertension [facility] Father Family history of Stroke Syndrome [facility] Father Family history of diabetes mellitus [facility] Natural father Heart disease [facility] Natural father Coronary heart disease (CHD) MD Rios Natural father Hypertension Ayaan son Natural mother Cancer [facility] Natural mother -Leukemia MD Amada mosley Natural mother Hypertension Ayaan son Natural sister Cancer [facility] Natural sister Unremarkable [facility] Natural sister -Breast cancer Natural sister -Thoracic or Lung MD Rios Natural sister Hypertension Ayaan son Unknown Family Member Family History 2013-06-22 23:32:31 2 23:32:31 [facility] Social History Social Habit Start Date Stop Date Quantity Comments Source Sex Assigned At F MD Rios Tobacco use and exposure 2018-10-15 00:00:00 2018-10-15 00:00:00 Nori Rios Alcohol intake 2018-10-15 00:00:00 2018-10-15 00:00:00 Current non-drinker of alcohol (finding) MD Rios Social History 2013-06-22 23:32:31 2013-06-22 23:32:31 [facility] Alcohol Comment 2013-02-04 00:00:00 2013-02-04 00:00:00 social, wine, 1 glass [facility] Smoking Status Start Date Stop Date Source [...] EYE(S) 4 TIMES DAILY AND AT BEDTIME. [facility] pantoprazole 40 mg oral enteric coated tablet 2020-05-03 22:09:0 0 Yes See Instructions, TAKE 1 TABLET BY MOUTH EVERY DAY, # 90 tab, 0 Refill(s), Pharmacy: [facility] #[id number], 154.94, cm, 12/22/19 10:39:00 CDT, Height, 90.727, kg, 12/22/19 10:39:00 CDT, Weight [facility] 3 ML insulin detemir 100 UNT/ML Prefilled Syringe [Levemir] 2020-03-29 22:05:00 Yes See Instru ctions, ADMINISTER UP TO 35 UNITS UNDER THE SKIN EVERY DAY, # 15 mL, 11 Refill(s), Pharmacy: [facility] #[id number], 154.94, cm, 12/22/19 10:39:00 CDT, Height, 90.727, kg, 12/22/19 10:39:00 CDT, Weight [facility] pantoprazole 40 mg oral enteric coated tablet 2020-02-09 14:15:0 0 Yes = 1 tab, PO, Daily, # 90 tab, 0 Refill(s ), Pharmacy: [facility] #[id number], 154.94, cm, 12/22/19 10:39:00 CDT, Height, 90.727, kg, 12/22/19 10:39:00 CDT, Weight [facility] apixaban (ELIQUIS) 2.5 mg tablet 2020-01-18 14:51:01 Yes 1{tbl} Take 1 tablet by mouth twice daily. MD Amada mosley atorvastatin (LIPITOR) 10 mg tablet 2020-01-18 14:51:01 Yes 1{tbl} Take 1 tablet by mouth daily. MD Amada mosley cholecalciferol, vitamin D3, 1,000 units tablet 2020-01-18 14:51 :01 Yes 1{tbl} Take 1 tablet by mouth daily. MD Rios ibiwgcdszil-V0-Jfowbvwuw serr 1,500-400-100 mg-unit-mg tab 2020-01-18 14:51:01 Yes [...] INHALATION, Q6H, # 60 ea, 0 Refill(s) Nc josé miguel Hahn FREESTYLE LITE BLOOD GLUCOSE STRIPS 2019-10-05 21:50:00 Yes See Instructions, # 100 strip, USE TO CHECK BLOOD SUGAR DIRECTED THREE TIMES DAILY, Pharmacy: [facility] #[id number] Balbina Hahn atorvastatin (LIPITOR) 10 MG tablet 2019-09-24 13:59:56 Yes 10mg QD Take 10 mg by mouth daily. Al Veliz insulin lispro (HumaLOG) 100 unit/mL injection 2019-09-24 13:59: 56 Yes [id number] Inject under the skin 3 (thr ee) [...] Take 40 mg by mouth daily. Al alford cholecalciferol, vitamin D3, (VITAMIN D3) 2,000 [...] nebulization 4 (four) times a day. Melendez [facility] HYDROcodone-acetaminophen (NORCO) 5-325 mg per tablet 2019-09-24 [...] Every 6 Hours as needed for Pain [facility] 3 ML Insulin Lispro 100 UNT/ML Pen Injector [Humalog] 2019-08-28 00:17:44 Yes See Instruction s, # 45 mL, Refill(s) 4, INJECT 15 UNITS SUBCUTANEOUS THREE TIMES DAILY(WITH MEALS), Pharmacy: [facility] #[id number] [facility] Cephalexin Monohydrate (Keflex) 500 Mg Capsule Cephale odalys Monohydrate (Keflex) 500 Mg Capsule 2019-08-26 00:00:00 Yes Lm Fernández Md 500 Every 12 Hours [facility] Oseltamivir Phosphate (Tamiflu) 75 Mg Cap, 60 Mg Oral Oseltamivir Phosphate (Tamiflu) 75 Mg Cap, 60 Mg Oral 2019-08-19 00:00:00 2019-08-19 00:00:00 No Dez Rodriguez Md 60 Twice A Day [facility] BD Ultra-Fine Mini Insulin Pen [place] 31G 5mm=3/16 inch 2019-08-17 21:02:00 Yes 1 ea, MISC, TID, Use as directed , # 900 ea, 3 Refill(s) [facility] pantoprazole 40 mg oral enteric coated tablet 2019-08-04 00:12:5 3 Yes = 1 tab, PO, Daily, # 90 tab, Refill(s) 1, Pharmacy: [facility] #[id number] [facility] FREESTYLE LITE BLOOD GLUCOSE STRIPS 2019-07-09 00:53:29 Yes See Instructions, # 100 strip, Refill(s) 5, USE TO CHECK BLOOD SUGAR DIRECTED THREE TIMES DAILY, Pharmacy: [facility] #[id number] [facility] canagliflozin (INVOKANA) 300 mg Tab 2019-05-30 18:23:5 9 2019-05-30 00:00:00 No QD Take by mouth daily. [facility] olmesartan (BENICAR) 40 MG tablet 2019-05-30 18:23:59 2018 00:00:00 No 40mg QD Take 40 mg by mouth daily. [facility] sulfamethoxazole-trimethoprim (BACTRIM,SEPTRA) 400-80 mg per tablet 2019-05-30 18:23:59 2019-05-30 00:00:00 No 1{tbl} QD Take 1 tablet by mouth daily Has frequent UTIs that lead to URI. Used for UTI prophylaxis. . [facility] calcium carbonate (OS-VJ) 600 mg (1,500 mg) Tab 2019-05-30 18:21:53 Yes 600mg Take 600 mg by mouth 2 (two) times daily with breakfast and dinner. [facility] ggtogmfrclf-A2-tosxlcqvp serr (OSTEO BI-FLEX) 1,500-400-100 mg-unit-mg Tab 2019-05-30 18:21:53 Yes Take by mouth. [facility] atorvastatin (LIPITOR) 10 MG tablet 2019-05-30 18:21:53 Yes 10mg QD Take 10 mg by mouth daily. [facility] insulin detemir (LEVEMIR) 100 unit/mL injection 2019-05-30 18:21 :53 Yes QD Inject subcutaneously nightly 33 units. [facility] insulin lispro (HUMALOG) 100 unit/mL injection 2019-05-30 18 :21:53 Yes type 2 diabetes mellitus Inject subcutan eously 3 (three) times daily before meals Takes sliding scale dose only . [facility] albuterol HFA (VENTOLIN HFA) 90 mcg/actuation inhaler 2019-05-30 18:21:53 Yes chronic obstructive pulmonary disease 1{puff} Inhale 1 puff by mouth via inhaler every 6 (six) hours as needed for Wheezing. [facility] montelukast (SINGULAIR) 10 mg tablet 2019-05-30 18:21:53 Yes allergic rhinitis 10mg Take 10 mg by mouth every night as needed. [facility] AZELASTINE/FLUTICASONE (DYMISTA NASAL) 2019-05-30 18:21:53 Yes allergic rhinitis 1{spray} 1 spray by Nasal route 2 (two) times daily as n eeded. [facility] APIXABAN (ELIQUIS ORAL) 2019-05-30 18:21:53 Yes Q.5D Take by mouth 2 (two) times daily. [facility] aspirin 81 MG chewable tablet 2019-05-30 18:20:38 2019-05-30 00: 00:00 No 81mg QD Take 81 mg by mouth daily. [facility] TRAMADOL HCL (TRAMADOL ORAL) 2019-05-30 18:20:38 2019-05-30 00:0 0:00 No Take by mouth. [facility] pantoprazole (PROTONIX) 40 MG tablet 2019-05-30 18:18:56 Ye s 40mg QD Take 40 mg by mouth daily. [facility] DRONEDARONE HCL (MULTAQ ORAL) 2019-05-30 18:18:56 Yes Q.5D Take by mouth 2 (two) times daily. [facility] febuxostat 40 mg tablet 2019-05-30 18:18:56 Yes 40mg QD Take 40 mg by mouth daily. [facility] furosemide (LASIX) 20 MG tablet 2019-05-30 18:18:56 Yes 20mg Q.5D Take 20 mg by mouth 2 (two) times daily. [facility] NIFEdipine (PROCARDIA-XL) 30 MG (OSM) 24 hr tablet 2019-05 18:18:56 Yes 30mg Take 30 mg by mouth daily as needed (IF SBP > 150 mmghg). [facility] atorvastatin 10 mg oral tablet 2019-05-25 22:58:28 Yes = 1 tab, PO, Daily, # 90 tab, Refill(s) 3, [id number] ursodiol (ACTIGALL) 300 mg capsule 2019-05-12 00:00:00 202 23:59:00 No 300mg Q.5D Take 1 capsule (300 mg total) by mouth 2 (two) times daily. [facility] 3 ML Insulin Lispro 100 UNT/ML Pen Injector [Humalog] 2019-05-11 22:08:48 Yes See Instruction s, # 45 mL, INJECT 15 UNITS SUBCUTANEOUS THREE TIMES DAILY(WITH MEALS), Pharmacy: [facility] #[id number] [facility] ursodiol (ACTIGALL) 300 mg capsule 2019-05-07 00:00:00 201 03-31-22 00:00:00 No 300mg Q.[id number] Take 1 ca psule (300 mg total) by mouth 3 (three) times daily. [facility] pantoprazole 40 mg oral enteric coated tablet 2019-05-04 14:03:3 3 Yes See Instructions, # 90 tab, TAKE 1 TABLE T BY MOUTH DAILY, [id number] traMADol (ULTRAM) 50 mg tablet 2019-04-02 00:00:00 Yes 1{tbl} Take 1 tablet by mouth 2 (two) times daily as needed. [facility] pantoprazole 40 mg oral enteric coated tablet 2019-01-30 19:14:4 8 Yes See Instructions, # 90 tab, TAKE 1 TABLE T BY MOUTH DAILY, [facility] [id number] [facility] telmisartan 80 mg oral tablet 2019-01-06 15:52:00 Yes 80 mg = 1 tab, PO, Daily, # 30 tab, 3 Refill(s) Qing Cho telmisartan (MICARDIS) 80 MG tablet 2019-01-06 00:00:00 Yes 80mg QD Take 80 mg by mouth daily. [facility] B-D PEN NDL MINI [id number]/04)[id number] 2018-10-07 22:24:37 Yes See Instructions, # 900 unknown unit, DIRECTED THREE TIMES DAILY, Pharmacy: [facility] [address] [place] [address] 3 ML insulin detemir 100 UNT/ML Prefilled Syringe [Levemir] 2018-09-22 20:09:00 Yes See Instru ctions, INJECT UP TO 35 UNITS UNDER THE SKIN EVERY DAY, # 15 mL, 5 Refill(s), Pharmacy: [facility] [address] traMADol HCl - 50 MG Oral Tablet traMADol HCl - 50 MG Oral T ablet 2018-09-05 00:00:00 Yes MIRTHA MOLINA M.D. Q12H T MADY 1 TABLET EVERY 12 HOURS NEEDED. [facility] atorvastatin 10 mg oral tablet 2018-08-29 22:23:25 Yes = 1 tab, PO, Daily, # 90 tab, Refill(s) 1, Pharmacy: [facility] [address] ondansetron (ZOFRAN-ODT) 4 mg disintegrating tablet 08-21 00:00:00 Yes Nausea and vomiting DISSOLVE 1 T ABLET(4 MG) ON THE TONGUE EVERY 6 HOURS NEEDED FOR NAUSEA OR VOMITING MD [place]rett on pantoprazole 40 mg oral enteric coated tablet 2018-08-06 15:11:1 5 Yes = 1 tab, PO, Daily, # 90 tab, Refill(s) 1, Pharmacy: [facility] [address] bisacodyl (DULCOLAX) 10 mg suppository 2018-07-18 [...] PRN Pain, # 40 tab, 0 Refill(s) [facility] Tylenol 2018-07-08 16:43:00 Yes PO, 0 Refill (s) [facility] Zofran 2018-07-08 16:43:00 Yes 4 mg, PO, PRN , 0 Refill(s) [facility] acetaminophen (TYLENOL EXTRA STRENGTH) 500 mg tablet [...] DM eval date 04/09/18, 11 Refill(s), Pharmacy: [facility] [id number] [facility] atorvastatin 10 mg oral tablet 2018-06-04 00:27:27 No See Instructions, # 90 tab, TAKE 1 TABLET BY MOUTH EVERY DAY, Pharmacy: [facility] [id number] [facility] cholecalciferol, vitamin D3, 4,000 unit Tab 2018-05-05 11:31:58 Yes 4000U QD Take 4,000 Units by mouth daily. [facility] Budesonide 2018-04-09 14:38:00 Yes See Instructions, did not know dosage but taking twice daily., 0 Refill(s) [facility] FREESTYLE LITE STRIPS strp 2018-03-14 00:00:00 Yes CHECK BLOOD GLUCOSE TID MD Rios albuterol (PROVENTIL,VENTOLIN) 2.5 mg/3 mL (0.083%) nebulize r solution 2018-03-10 00:00:00 Yes 1{vial} Take 1 vial by nebulization twice daily. MD Rios atorvastatin 10 mg oral tablet 2018-03-07 18:44:00 No See Instructions, TAKE 1 TABLET BY MOUTH EVERY DAY, # 90 tab, 0 Refill(s), Pharmacy: [facility] [address] budesonide (PULMICORT) 0.5 mg/2 mL nebulizer solution 2018-01-17 00:00:00 Yes .5mg Take 0.5 mg by nebulization twice daily. MD Rios pantoprazole 40 mg oral enteric coated tablet 2017-12-18 18:34:4 3 Yes See Instructions, # 90 tab, TAKE 1 TABLE T BY MOUTH DAILY, Pharmacy: [facility] [address] atorvastatin 10 mg oral tablet 2017-12-09 18:16:04 Yes See Instructions, # 90 tab, TAKE 1 TABLET BY MOUTH EVERY DAY, Pharmacy: [facility] [address] pantoprazole 40 mg oral enteric coated tablet 2017-11-12 22:38:2 4 Yes See Instructions, # 90 tab, TAKE 1 TABLE T BY MOUTH DAILY, [facility] [address] 3 ML Insulin Lispro 100 UNT/ML Pen Injector [Humalog] 2017-10-28 21:39:00 No See Instruction s, USE DIRECTED, # 45 mL, 5 Refill(s), Pharmacy: [facility] [address] 3 ML Insulin Lispro 100 UNT/ML Pen Injector [Humalog] 2017-10-28 21:39:00 No See Instruction s, USE DIRECTED, # 45 mL, 5 Refill(s), Pharmacy: [facility] [address] ProAir HFA 108 (90 Base) MCG/ACT Inhalation Aerosol So lution ProAir HFA 108 (90 Base) MCG/ACT Inhalation Aerosol Solution 2017-10-18 00:00:00 Uvaldo PENNY M.D. INHALE 1 TO 2 PUFFS EVERY 4 TO 6 HOURS A S NEEDED. [facility] atorvastatin 10 mg oral tablet 2017-09-09 18:43:00 No See Instructions, # 90 tab, TAKE 1 TABLET BY MOUTH EVERY DAY, Pharmacy: [facility] [id number] Balbina Hahn amoxicillin 500 mg oral tablet [...] Jewels Hahn BD Ultra-Fine Mini Insulin Pen [place] 31G 5mm=3/16 inch 2017-07-26 15:11:00 Yes 1 [...] Hahn Docusate Sodium 50 MG / sennosides, SHELTER 8.6 MG Oral Tablet 2016-04-09 20:26:00 Yes [...] nn Docusate Sodium 50 MG / sennosides, SHELTER 8.6 MG Oral Tablet 2016-04-08 14:17:00 No [...] Bin "single patient use only" Benjamin orial [place] atorvastatin 2016-04-08 02:00:00 No Notes: (Same As: Lipitor) [facility] Singulair 2016-04-07 22:00:00 No Notes: (Sa me as:Singulair) [facility] pantoprazole 2016-04-07 21:30:00 No Notes: Tablet should not be chewed or crushed. (Same as: Protonix) [facility] heparin 2016-04-07 21:00:00 No Notes: porci ne heparin [facility] meropenem 2016-04-07 21:00:00 No 50, Extended infusion, infuse over 3 hours, Start date: 04/07/16 16:00:00 CDT, Duration: 30 day, Stop date: 05/07/16 8:00:00 CDT [facility] Insulin, Aspart, Human 2016-04-07 17:44:00 No Notes: Roll in palms of hands gently; Do not shake vigorously. (Same as: NovoLOG) "single patient use only" WASTE: F/P - Black; E - Municipal Trash Bin Stable for 28 days at room temperature. Expires in days from Date [facility] Glucagon 2016-04-07 17:44:00 No 1 mg, Route: IM, Drug form: PDR/INJ, PRN, Dosing Weight 99.091, kg, PRN Blood Glucose Results, Start date: 04/07/16 12:44:00 CDT, Duration: 30 day, Stop date: 05/07/16 12:43:00 CDT [facility] [place] Dextrose 50% Syringe 2016-04-07 17:44:00 No 25 gm, 50 mL, Route: IVP, Drug Form: INJ, Dosing Weight 99.091, kg, PRN, PRN Blood Glucose Results, Start date: 04/07/16 12:44:00 CDT, Duration: 30 day, Stop date: 05/07/16 12:43:00 CDT [facility] Aspirin 81 MG Chewable Tablet 2016-04-07 17:00:00 No Notes: Take with food. [facility] meropenem 2016-04-07 17:00:00 No Notes: Same as Merrem MEDICATION WASTE Product Size: 500 mg Product Wasted: ___ mg [facility] Ventolin HFA 90 mcg/inh inhalation aerosol with adapter 2016-04-07 16:27:00 No Notes: Albutero l 90 microgram/inh 8gm HFA WASTE: Aerosol - Return to Pharmacy Same as: Naz Newell Acetaminophen 2016-04-07 14:14:00 No Notes: Do not exceed 4 gm/day. (Same as: Tylenol) Balbina Hahn Docusate 2016-04-07 14:14:00 No Notes: (Same as: Colace) (Do Not Crush) Balbina Hahn Ondansetron 2016-04-07 14:14:00 No Notes: (Same [...] or times, Stop date: 04/07/16 6:34:00 [facility] Saline Flush 0.9% 2016-04-07 11:34:00 No Notes: preservative free. Balbina Hahn Ceftriaxone 2016-04-07 11:32:00 No 1 gm, Route: IVPB, Drug form: PDR/INJ, ONCE, Dosing Weight 100, kg, Priority: STAT, Start date: 04/07/16 6:32:00 CDT, Stop date: 04/07/16 6:32:00 CDT [facility] Hydrochlorothiazide 25 MG Oral Tablet 2016-04-07 00:38:00 Y es 25 mg = 1 tab, PO, Daily, # 30 tab, 0 Refill(s) Balbina Hahn Zofran 2016-04-06 23:39:00 No 4 mg, Route: IVP, Drug form: INJ, ONCE, Dosing Weight 99.091, kg, Priority: STAT, Start date: 04/06/16 18:39:00 CDT, Stop date: 04/06/16 18:39:00 CDT Nc josé miguel Hahn Sodium Chloride 0.154 MEQ/ML [...] R) WASTE: F/P - Black; E - [email or web address] Trash Bin (Do not shake) Balbina Reeysann Kayexalate 2016-04-06 20:09:00 No Notes: (sodium polystyrene sulfonate 15 gm/60 ml GOLDEN) Shake well before use. (Same as: Kayexalate, SPS) Balbina Hahn Saline Flush 0.9% 2016-04-06 18:24:00 No Notes: (Same as: BD Posiflush) Balbina Reyesann Cephalexin 500 MG Oral Capsule [Keflex] 2015-10-01 18:15:00 Yes 500 mg = 1 cap, PO, QID, X 10 day, # 40 cap, 0 Refill(s), [facility] [id number] Balbina Hahn Albuterol 0.83 MG/ML Inhalant Solution 2015-10-01 17:28:00 No Notes: SEE RT DOCUMENTATION (Same as: Proventil) Balbina Hahn Saline Flush 0.9% 2015-10-01 14:20:00 No Notes: (Same as: BD Posiflush) Balbina Reyesann Benicar 2015-09-22 18:56:00 No 40 mg, 2 tab, Route: PO, Drug form: TAB, ONCE, Dosing Weight 97.273, kg, Start date: 09/22/15 12:56:00, Stop date: 09/22/15 12:56:00 [facility] Ciprofloxacin 250 MG Oral Tablet [Cipro] 2015-09-22 18:51:00 Yes 250 mg = 1 tab, PO, Q12H, X 7 day, # 14 tab, 0 Refill(s), Pharmacy: [facility] [id number] [facility] Ondansetron 4 MG Oral Tablet [Zofran] 2015-09-22 18:51:00 Y es 4 mg = 1 tab, PO, BID, X 5 day, # 10 tab, 0 Refill(s), Pharmacy: [facility] [address] [facility] Ciprofloxacin 2015-09-22 18:50:00 No 500 mg, Route: PO, ONCE, Dosing Weight 97.273, kg, Priority: STAT, Start date: 09/22/15 12:50:00, Stop date: 09/22/15 12:50:00 [facility] Sodium Chloride 0.154 MEQ/ML Injectable Solution 2015-09-22 14:5 1:00 No 1,000 mL, 1,000 ml/hr, Infus e Over: 1 Hour, Route: IV, ONCE, Priority: STAT, Dosing Weight 97.273 kg, Start date: 09/22/15 8:51:00, Duration: 1 doses or times, Stop date: 09/22/15 8:51:00 Jessy aggarwal [place] Morphine 2015-09-22 14:47:00 No 4 mg, Route: IVP, ONCE, Dosing Weight 97.273, kg, Priority: STAT, Start date: 09/22/15 8:47:00, Stop date: 09/22/15 8:47:00 [facility] Ondansetron 2015-09-22 14:47:00 No 4 mg, Route: IVP, ONCE, Dosing Weight 97.273, kg, Priority: STAT, Start date: 09/22/15 8:47:00, Stop date: 09/22/15 8:47:00 [facility] Sodium Chloride 0.154 MEQ/ML Injectable Solution 2015-09-22 [...] temperature. Expires in days from Date [facility] [place] Levemir FlexPen 2015-02-28 02:00:00 No Notes: Same as Levemir Do not hold insulin without contacting prescriber "single patient use only" [facility] Protonix 2015-02-27 21:30:00 No Notes: Same as: Protonix Mix in 5 mL apple juice or applesauce for oral & 10mL apple juice for NG tube [facility] Solu-Medrol 2015-02-27 20:00:00 No Notes: (Same as:Solu-MEDROL, A-Methapred) [facility] pantoprazole 2015-02-27 19:31:00 Yes 40 mg, PO, Daily, # 30 tab, 0 Refill(s) [facility] Ursodeoxycholate 2015-02-27 18:00:00 No Notes: (Same As: Actigall) [facility] Insulin, Aspart, Human 2015-02-27 17:50:00 No Notes: Roll in palms of hands gently; Do not shake vigorously. (Same as: NovoLOG) "single patient use only" Stable for 28 days at room temperature. Expires in days from Date [facility] Dextrose 50% Syringe 2015-02-27 17:50:00 No 25 gm, 50 mL, Route: IVP, Drug Form: INJ, Dosing Weight 94.091, kg, PRN, PRN Blood Glucose Results, Start date: 02/27/15 12:50:00, Duration: 30 day, Stop date: 03/29/15 12:49:00 [facility] Glucagon 2015-02-27 17:50:00 No 1 mg, Route: IM, Drug form: PDR/INJ, PRN, Dosing Weight 94.091, kg, PRN Blood Glucose Results, Start date: 02/27/15 12:50:00, Duration: 30 day, Stop date: 03/29/15 12:49:00 [facility] Ursodeoxycholate 2015-02-27 15:27:00 Yes 300 mg, PO, TID, 0 Refill(s) [facility] Nitroglycerin 0.4 MG Sublingual Tablet 2015-02-27 13:56:00 No Notes: (Same as:Nitroquargelia Nitrostat) "Do Not Crush" Sublingual tablet [facility] Atropine 2015-02-27 13:56:00 No 0.5 mg, 5 mL, Route: IV, Drug form: INJ, PRN, Dosing Weight 94.091, kg, PRN Bradycardia, Start date: 02/27/15 8:56:00, Duration: 30 day, Stop date: 03/29/15 8:55:00 [facility] Albuterol 0.83 MG/ML Inhalant Solution 2015-02-27 12:00:00 No Notes: SEE RT DOCUMENTATION (Same as: Proventil) [facility] Albuterol 0.833 MG/ML / Ipratropium Brom grady 0.167 MG/ML Inhalant Solution [DuoNeb] 2015-02-27 11:27:00 No Notes: (S luciana as: Duoneb) [facility] Ondansetron 2015-02-27 11:27:00 No Notes: (Same as: Zofran) MEDICATION WASTE Product Size: 4 mg Product Wasted: ___ mg [facility] Docusate 2015-02-27 11:27:00 No Notes: (Same as: Colace) (Do Not Crush) [facility] Acetaminophen 2015-02-27 11:27:00 No Notes: Do not exceed 4 gm/day. (Same as: Tylenol) [facility] Morphine 2015-02-27 11:27:00 No Not es: (Same as:MORPhine Sulfate) [facility] Benicar 2015-02-27 10:33:00 No 40 mg, 2 tab, Route: PO, Drug form: TAB, ONCE, Dosing Weight 94.091, kg, Priority: NOW, Start date: 02/27/15 5:33:00, Stop date: 02/27/15 5:33:00 Mem orial [facility] methylPREDNISolone SODium SUCCinate 2015-02-27 08:34:00 No 125 mg, Route: IVP, ONCE, Dosing Weight 94.091, kg, Priority: STAT, Start date: 02/27/15 3:34:00, Stop date: 02/27/15 3:34:00 Me morial [place] Albuterol 0.833 MG/ML / Ipratropium [place] 0.167 MG/ML Inha lant Solution 2015-02-27 06:50:00 No 3 mL, Route: NEB, Drug Form: SOLN, Dosing Weight 94.091, kg, ONCE, STAT, Start date: 02/27/15 1:50:00, Stop date: 02/27/15 1:50:00 [facility] Saline Flush 0.9% 2015-02-27 06:50:00 No Notes: [...] - 5 mg (1/2 tab) daily [facility] [place] Albuterol 0.833 MG/ML / Ipratropium Brom grady 0.167 MG/ML Inhalant Solution [DuoNeb] 2014-10-10 16:22:00 No Notes: (S luciana as: Duoneb) [facility] [place] Albuterol 0.833 MG/ML / Ipratropium Brom grady 0.167 MG/ML Inhalant Solution [DuoNeb] 2014-10-10 16:21:00 No Notes: (S luciana as: Duoneb) [facility] Saline Flush 0.9% 2014-10-10 16:21:00 No Notes: Same as: BD Posiflush Sterile [facility] [place] Sulfamethoxazole 800 MG / Trimethoprim 160 MG Oral Tablet [B actrim] 2014-08-23 02:25:00 Yes 1 tab, PO, BID, # 14 tab, 0 Refill(s) [facility] [place] benzonatate 100 MG Oral Capsule [Tre Gill] 2014-05-16 22:09:00 Yes 100 mg = 1 cap, PO, TID, # 30 cap, 0 Refill(s) [facility] Albuterol 0.833 MG/ML / Ipratropium [place] 0.167 MG/ML Inha lant Solution 2014-05-16 17:48:00 No 3 mL, Route: NEB, Drug Form: SOLN, Dosing Weight 92.727, kg, ONCE, STAT, Start date: 05/16/14 12:48:00, Stop date: 05/16/14 12:48:00 [facility] Saline Flush 0.9% 2014-05-16 17:48:00 [...] PO, Daily, 30 tab, Substitution Allowed, ECTAB [facility] amLODipine 10 mg oral tablet 2013-01-09 18:46:40 Yes Maria Luisa Misty Earnest 10 mg, 1 tab, PO, Daily, 30 tab, Substit ution Allowed, TAB [facility] predniSONE 10 mg oral tablet 2013-01-09 18:46:27 Yes Maria Luisa Misty Earnest 10 mg, 1 tab, PO, Daily, 14 tab, Substit ution Allowed, TAB [facility] Levemir FlexPen 2013-01-09 14:00:00 No [...] Duration: 30 day, Stop date: 02/08/13 8:06:00 [facility] Levemir FlexPen 2013-01-09 02:00:00 No Cory Rickie 15 unit, 0.15 mL, Route: SUB-Q, Drug form: INJ, Daily, Dosing Weight 93.636, kg, Start date: 01/08/13 21:00:00, Duration: 30 day, Stop date: 02/06/13 21:00:00 [facility] 2013-01-08 23:56:00 No Maria Luisa Tinoco 18 unit, 0.18 mL, Route: SUB-Q, Drug form: SOLN, Sliding Scale, PRN Blood Glucose Results, Start date: 01/08/13 18:56:00, Duration: 30 day, Stop date: 02/07/13 18:55:00 [facility] NovoLog FlexPen 2013-01-08 23:55:00 No Maria Luisa Tinoco 12 unit, 0.12 mL, Route: SUB-Q, Drug form: SOLN, Sliding Scale, PRN Blood Glucose Results, Start date: 01/08/13 18:55:00, Duration: 30 day, Stop date: 02/07/13 18:54:00 [facility]Log FlexPen 2013-01-08 23:53:00 No Maria Luisa Tinoco 8 unit, Route: SUB-Q, Drug form: SOLN, Sliding Scale, PRN Blood Glucose Results, Start date: 01/08/13 18:53:00, Duration: 30 day, Stop date: 02/07/13 18:52:00 [facility] pantoprazole 2013-01-08 14:00:[address] [place] 40 mg, 1 tab, Route: PO, Drug form: ECTAB, Daily, Dosing Weight 93.636, kg, Priority: Routine, Start date: 01/08/13 9:00:00, Stop date: 02/06/13 9:00:00 [facility] SoluMedrol 2013-01-08 14:00:[address] [place] 40 mg, 1 mL, Route: IVP, Drug form: INJ, Q12H, Dosing Weight 93.636, kg, Start date: 01/08/13 9:00:00, Duration: 30 day, Stop date: 02/06/13 21:00:00 [facility] Diovan 2013-01-08 14:00:[address] [place] 320 mg, 2 tab, Route: PO, Drug form: TAB, Daily, Dosing Weight 93.636, kg, Start date: 01/08/13 9:00:00, Duration: 30 day, Stop date: 02/06/13 9:00:00 [facility] pneumococcal 23-valent vaccine 2013-01-08 14:00:00 No S YSTEM SYSTEM 0.5 ml, Route: IM, Drug Form: INJ, Daily, Start date: 01/08/13 9:00:00, Duration: 1 doses or times, Stop date: 01/08/13 9:00:00 [facility] aspirin 81 mg tablet, chewable 2013-01-08 14:00:[address] [place] 81 mg, 1 tab, Route: PO, Drug form: CHEW TAB, Daily, Dosing Weight 93.636, kg, Start date: 01/08/13 9:00:00, Duration: 30 day, Stop date: 02/06/13 9:00:00 [facility] atorvastatin 2013-01-08 14:00:[address] [place] 10 mg, 1 tab, Route: PO, Drug form: TAB, QAM, Dosing Weight 93.636, kg, Start date: 01/08/13 9:00:00, Duration: 30 day, Stop date: 02/06/13 9:00:00 [facility] amLODipine 2013-01-08 14:00:[address] [place] 5 mg, 1 tab, Route: PO, Drug form: TAB, BID, Dosing Weight 93.636, kg, Start date: 01/08/13 9:00:00, Duration: 30 day, Stop date: 02/06/13 21:00:00 [facility] NovoLog FlexPen 2013-01-08 13:59:00 No Maria Luisa Tinoco 12 unit, 0.12 mL, Route: SUB-Q, Drug form: SOLN, Sliding Scale, PRN Blood Glucose Results, Start date: 01/08/13 8:59:00, Duration: 30 day, Stop date: 02/07/13 8:58:00 [facility] DuoNeb inhalation solution 2013-01-08 13:00:00 No Nnenn a N [place] 3 mL, Route: INHALATION, Drug Form: SOLN, Dosing Weight 93.636, kg, RQ6H, Start date: 01/08/13 8:00:00, Duration: 30 day, Stop date: 02/07/13 2:00:00 [facility] codeine-guaifenesin 10 mg-200 mg/5 mL oral liquid 09:50:[address] [place] 10 mL, Route: P O, Drug Form: LIQ, Dosing Weight 93.636, kg, Q4H, PRN as needed for cough, Start date: 01/08/13 4:50:00, Duration: 30 day, Stop date: 02/07/13 4:49:00 [facility] [place] Zofran 2013-01-08 09:50:[address] [place] 4 mg, 2 mL, Route: IV, Drug form: INJ, Q4H, Dosing Weight 93.636, kg, PRN as needed for nausea/vomiting, Start date: 01/08/13 4:50:00, Duration: 30 day, Stop date: 02/07/13 4:49:00 [facility] [place] acetaminophen 2013-01-08 09:50:[address] [place] 650 mg, 2 tab, Route: PO, Drug form: TAB, Q6H, Dosing Weight 93.636, kg, PRN Pain, Start date: 01/08/13 4:50:00, Duration: 30 day, Stop date: 02/07/13 4:49:00 [facility] azithromycin + Sodium Chloride 0.9% IV 250 mL 2013-01-08 0 8:00:00 No Maria Luisa Quesadarick 500 mg, Route : IVPB, [id number], Dosing Weight 90.455, kg, Priority: Routine, Start date: 01/08/13 3:00:00, Duration: 30 day, Stop date: 02/06/13 3:00:00 [facility] ceftriaxone + Sodium Chloride 0.9% IV 100 mL 2013-01-08 08 :00:00 No Maria Luisa Booneerinnellie QuesadaEarnest 1 gm, Route: IVPB, [id number], Dosing Weight 90.455, kg, Priority: Routine, Start date: 01/08/13 3:00:00, Duration: 30 day, Stop date: 02/06/13 3:00:00 [facility] Dextrose 50% Syringe 2013-01-08 07:41:00 No Cory Madridv ed 25 gm, 50 mL, Route: IVP, Drug Form: INJ, Dosing Weight 90.455, kg, PRN, PRN Blood Glucose Results, Start date: 01/08/13 2:41:00, Duration: 30 day, Stop date: 02/07/13 2:40:00 [facility] insulin aspart 2013-01-08 07:41:00 No Cory Madridved 4 unit, 0.04 mL, Route: SUB-Q, Drug form: SOLN, Bedtime, Dosing Weight 90.455, kg, PRN Blood Glucose Results, Start date: 01/08/13 2:41:00, Duration: 30 day, Stop date: 02/07/13 2:40:00 [facility] glucagon 2013-01-08 07:41:00 No Cory Rickie 1 mg, Route: IM, Drug form: PDR/INJ, PRN, Dosing Weight 90.455, kg, PRN Blood Glucose Results, Start date: 01/08/13 2:41:00, Duration: 30 day, Stop date: 02/07/13 2:40:00 [facility] albuterol-ipratropium 2.5-0.5 mg inhalation solution 01-08 07:39:00 [...] Duration: 30 day, Stop date: 02/07/13 2:38:00 [facility] DuoNeb inhalation solution 2013-01-08 06:38:00 No A polly Aprielle Madelin 3 ml, Route: INHALATION, Drug Form: SOLN , Dosing Weight 90.455, kg, PRN, PRN Respiratory Protocol, Start date: 01/08/13 1:38:00, Duration: 30 day, Stop date: 02/07/13 1:37:00 [facility] azithromycin + Sodium Chloride 0.9% IV 250 mL 2013-01-08 0 5:48:00 No Rosita Aprielle [place] 500 mg, Route: I VPB, ONCE, Dosing Weight 90.455, kg, Priority: STAT, Start date: 01/08/13 0:48:00, Stop date: 01/08/13 0:48:00 [facility] ceftriaxone + Sodium Chloride 0.9% IV 100 mL 2013-01-08 05 :48:00 No Rosita Aprielle [place] 1 gm, Route: IVP B, ONCE, Dosing Weight 90.455, kg, Priority: STAT, Start date: 01/08/13 0:48:00, Stop date: 01/08/13 0:48:00 [facility] amLODipine 2013-01-08 05:23:00 No Rosita Aprielle Madelin 5 mg, 1 tab, Route: PO, Drug form: TAB, ONCE, Dosing Weight 90.455, kg, Start date: 01/08/13 0:23:00, Stop date: 01/08/13 0:23:00 [facility] tamanna [place] metoprolol tartrate 2013-01-08 05:23:00 No Rosita Aprie lle [place] 50 mg, 1 tab, Route: PO, Drug form: TAB, ONCE, Dosing Weight 90.455, kg, Priority: STAT, Start date: 01/08/13 0:23:00, Stop date: 01/08/13 0:23:00 [facility] Pepcid 2013-01-08 01:56:00 No Rosita Aprielle [place] 40 mg, 1 tab, Route: PO, Drug form: TAB, ONCE, Start date: 01/07/13 20:56:00, Stop date: 01/07/13 20:56:00 [facility] Zantac 300 2013-01-08 01:18:00 No Rosita Aprielle [place] 300 mg, Route: PO, ONCE, Dosing Weight 90.455, kg, Start date: 01/07/13 20:18:00, Stop date: 01/07/13 20:18:00 [facility] albuterol-ipratropium 2.5-0.5 mg inhalation solution 01-08 01:17:00 No Rosita Aprielle Madelin 3 mL, Route : NEB, Dosing Weight 90.455, kg, ONCE, STAT, Start date: 01/07/13 20:17:00, Stop date: 01/07/13 20:17:00 [facility] methylPREDNISolone SODium SUCCinate 2012-09-04 15:00:00 No Nestor Xavier Erickson 20 mg, 0.5 mL, Route : IVP, Drug form: INJ, Daily, Dosing Weight 92.727, kg, Start date: 09/04/12 9:00:00, Duration: 30 day, Stop date: 10/03/12 9:00:00 [facility] NovoLog 2012-09-03 19:30:00 No Nestor Xavier Erickson 10 unit, 0.1 mL, Route: SUB-Q, Drug form: SOLN, ONCE, Dosing Weight 92.5, kg, Start date: 09/03/12 13:30:00, Stop date: 09/03/12 13:30:00 [facility] Vantin 200 mg oral tablet 2012-09-03 17:06:57 Yes Nestor E nrique Erickson 200 mg, 1 tab, PO, Q12H, 14 tab, Substitution Allowed, TAB [facility] Medrol Dosepak 4 mg Tablet 2012-09-03 17:06:31 [...] Duration: 30 day, Stop date: 10/02/12 9:00:00 [facility] aspirin 81 mg tablet, chewable 2012-09-03 15:00:00 No Nestor Xavier Erickson 81 mg, 1 tab, Route: PO, Drug form: CHEW TAB, Daily, Dosing Weight 92.5, kg, Start date: 09/03/12 9:00:00, Duration: 30 day, Stop date: 10/02/12 9:00:00 [facility] amLODipine 2012-09-03 15:00:00 No Nestor [...] Duration: 30 day, Stop date: 10/02/12 9:00:00 [facility] metoprolol extended release 2012-09-03 15:00:00 No Nestor Xavier Erickson 100 mg, 1 tab, Route: PO, Drug form: ERTAB, QAM, Start date: 09/03/12 9:00:00, Duration: 30 day, Stop date: 10/02/12 9:00:00 [facility] NovoLog PenFill 2012-09-03 14:00:00 No Nestor Xavier Erickson Route: SUB-Q, Drug form: SOLN, TID-Meals, Dosing Weight 92.5, kg, Start date: 09/03/12 8:00:00, Duration: 30 day, Stop date: 10/02/12 17:00:00 [facility] NovoLog 2012-09-03 04:19:00 No Nestor Xavier Erickson 10 unit, 0.1 mL, Route: SUB-Q, Drug form: SOLN, ONCE, Dosing Weight 92.5, kg, Priority: NOW, Start date: 09/02/12 22:19:00, Stop date: 09/02/12 22:19:00 [facility] Toprol-XL 50 mg oral tablet, extended release 2012-09-03 0 3:00:00 No Nestor Xavier Erickson 50 mg, 1 tab, Ro emilie: PO, Drug form: ERTAB, QPM, Start date: 09/02/12 21:00:00, Duration: 30 day, Stop date: 10/01/12 21:00:00 [facility] Levemir FlexPen 2012-09-03 03:00:00 No Nestor Xavier Erickson 15 unit, 0.15 mL, Route: SUB-Q, Drug form: INJ, Bedtime, Dosing Weight 92.5, kg, Start date: 09/02/12 21:00:00, Duration: 30 day, Stop date: 10/01/12 21:00:00 [facility] insulin detemir 2012-09-03 03:00:00 No Nestor Xavier Erickson 25 unit, 0.25 mL, Route: SUB-Q, Drug form: INJ, Bedtime, Dosing Weight 92.5, kg, Start date: 09/02/12 21:00:00, Duration: 30 day, Stop date: 10/01/12 21:00:00 [facility] methylPREDNISolone SODium SUCCinate 2012-09-03 03:00:00 No Nestor Xavier Erickson 40 mg, 1 mL, Route: IVP, Drug form: INJ, Q12H, Dosing Weight 92.727, kg, Start date: 09/02/12 21:00:00, Duration: 30 day, Stop date: 10/02/12 9:00:00 [facility] enoxaparin 2012-09-03 00:00:00 No Nestor Xavier Erickson 40 mg, 0.4 mL, Route: SUB-Q, Drug form: INJ, [id number], Dosing Weight 92.5, kg, Start date: 09/02/12 18:00:00, Duration: 30 day, Stop date: 10/01/12 18:00:00 [facility] Tylenol 2012-09-02 23:46:00 No Nestor Xavier Erickson 650 mg, 2 tab, Route: PO, Drug form: TAB, Q6H, Dosing Weight 92.5, kg, PRN Pain Score 1-3, Start date: 09/02/12 17:46:00, Duration: 30 day, Stop date: 10/02/12 17:45:00 [facility] B[place]mer 5/325 oral tablet 2012-09-02 23:46:00 No Nestor Enr ique Erickson 1 tab, Route: PO, Drug Form: TAB, Dosing Weight 92.5, kg, Q6H, PRN Pain Score 1-5, Start date: 09/02/12 17:46:00, Duration: 30 day, Stop date: 10/02/12 17:45:00 [facility] morphine Sulfate 2012-09-02 23:45:00 No Nestor Xavier Mo k 2 mg, 1 mL, Route: IVP, Drug form: INJ, Q4H, Dosing Weight 92.5, kg, PRN Pain Score 6-10, Start date: 09/02/12 17:45:00, Duration: 30 day, Stop date: 10/02/12 17:44:00 [facility] dextromethorphan-guaifenesin 10 mg-100 mg/5 mL oral liquid 2012-09-02 23:44:00 No Nestor Xavier Erickson 10 ml, Route: PO, Drug Form: SYRP, Dosing Weight 92.5, kg, Q4H, PRN Cough, Start date: 09/02/12 17:44:00, Duration: 30 day, Stop date: 10/02/12 17:43:00 [facility] Tre Gill 2012-09-02 23:44:00 No Nestor Xavier Erickson 100 mg, 1 cap, Route: PO, Drug form: CAP, TID, Dosing Weight 92.5, kg, PRN Cough, Start date: 09/02/12 17:44:00, Duration: 30 day, Stop date: 10/02/12 17:43:00 [facility] Zofran 2012-09-02 23:44:00 No Nestor Xavier Erickson 4 mg, 2 mL, Route: IV, Drug form: INJ, Q6H, Dosing Weight 92.5, kg, PRN Nausea, Start date: 09/02/12 17:44:00, Duration: 30 day, Stop date: 10/02/12 17:43:00 [facility] insulin aspart 2012-09-02 23:44:00 No Nestor Xavier Erickson 6 unit, 0.06 mL, Route: SUB-Q, Drug form: SOLN, TID-Before Meals, Dosing Weight 92.5, kg, PRN Blood Glucose Results, Start date: 09/02/12 17:44:00, Duration: 30 day, Stop date: 10/02/12 17:43:00 [facility] Dextrose 50% Syringe 2012-09-02 23:44:00 No Nestor Enriqu e Erickson 12.5 gm, 25 mL, Route: IVP, Drug Form: INJ, Dosing Weight 92.5, kg, PRN, PRN Blood Glucose Results, Start date: 09/02/12 17:44:00, Duration: 30 day, Stop date: 10/02/12 18:43:00 [facility] glucagon 2012-09-02 23:44:00 No Nestor Xavier Erickson 1 mg, Route: IM, Drug form: PDR/INJ, PRN, Dosing Weight 92.5, kg, PRN Blood Glucose Results, Start date: 09/02/12 17:44:00, Duration: 30 day, Stop date: 10/02/12 18:43:00 [facility] nitroglycerin 0.4 mg sublingual tablet 2012-09-02 23:01:00 No Nestor Xavier Erickson 0.4 mg, 1 tab, R oute: SL, Drug form: TAB, Q5Min, PRN Chest Pain, Start date: 09/02/12 17:01:00, Duration: 30 day, Stop date: 10/02/12 18:00:00 [facility] atropine 2012-09-02 23:01:00 No Nestor Xavier Erickson 0.5 mg, 5 mL, Route: IVP, Drug form: INJ, PRN, PRN Bradycardia, Start date: 09/02/12 17:01:00, Duration: 30 day, Stop date: 10/02/12 18:00:00 [facility] Maxipime + Sodium Chloride 0.9% IV 100 mL 2012-09-02 22:52 :00 No Nestor Xavier Erickson 1 gm, Route: IVP B, [id number], Dosing Weight 92.727, kg, Priority: STAT, Start date: 09/02/12 16:52:00, Duration: 30 day, Stop date: 10/01/12 16:52:00 [facility] Cipro 2012-09-02 22:52:00 No Nestor Xavier Erickson 400 mg, 200 mL, Route: IVPB, Drug form: INJ, [id number], Dosing Weight 92.727, kg, Priority: STAT, Start date: 09/02/12 16:52:00, Duration: 30 day, Stop date: 10/02/12 4:52:00 [facility] Saline Flush 0.9% 2012-09-02 22:52:00 No Nestor Xavier M ok 5 ml, Route: IVP, Drug Form: INJ, Dosing Weight 92.727, kg, PRN, PRN Line Flush, Start date: 09/02/12 16:52:00, Duration: 30 day, Stop date: 10/02/12 17:51:00 [facility] albuterol 0.083% inhalation solution 2012-09-02 22:52:00 No Nestor Xavier Erickson 2.49 mg, Route: NEB, PRN, Dosing Weight 92.727, kg, PRN Respiratory Protocol, Start date: 09/02/12 16:52:00, Duration: 30 day, Stop date: 10/02/12 17:51:00 [facility] albuterol-ipratropium 2.5-0.5 mg inhalation solution 09-02 22:52:00 No Nestor Xavier Erickson 3 mL, Route: NE B, Drug Form: SOLN, Dosing Weight 92.727, kg, PRN, PRN Respiratory Protocol, Start date: 09/02/12 16:52:00, Duration: 30 day, Stop date: 10/02/12 17:51:00 [facility] ipratropium 2012-09-02 22:52:00 No Nestor Xavier Erickson 0.5 mg, Route: NEB, PRN, Dosing Weight 92.727, kg, PRN Respiratory Protocol, Start date: 09/02/12 16:52:00, Duration: 30 day, Stop date: 10/02/12 17:51:00 [facility] NovoLog PenFill 100 units/mL subcutaneous solution 2012-08 22:51:17 Yes Nestor Xavier Erickson sliding scale, SUB-Q, TID-Meals, 5 units for BS 80-120, 6 units for BS 121-150, 7.5 units for 150-200, 9 units for BS 201-250, 10 units for BS 250-300, 12.5 units for BS > 300, 3 ml, Substitution Allowed, SOLN 300 [facility] Dextrose 50% Syringe 2012-09-02 22:51:00 No Nestor Enriqu e Erickson 12.5 gm, 25 mL, Route: IVP, Drug Form: INJ, Dosing Weight 92.727, kg, PRN, PRN Blood Glucose Results, Start date: 09/02/12 16:51:00, Duration: 30 day, Stop date: 10/02/12 17:50:00 [facility] glucagon 2012-09-02 22:51:00 No Nestor Xavier Erickson 1 mg, Route: IM, Drug form: PDR/INJ, PRN, Dosing Weight 92.727, kg, PRN Blood Glucose Results, Start date: 09/02/12 16:51:00, Duration: 30 day, Stop date: 10/02/12 17:50:00 [facility] insulin aspart 2012-09-02 22:51:00 No Nestor Xavier Erickson 2 unit, 0.02 mL, Route: SUB-Q, Drug form: SOLN, TID-Before Meals, Dosing Weight 92.727, kg, PRN Blood Glucose Results, Start date: 09/02/12 16:51:00, Duration: 30 day, Stop date: 10/02/12 16:50:00 [facility] Levemir FlexPen 100 units/mL subcutaneous solution 2012-08 22:49:43 Yes Nestor Xavier Erickson 25 unit, SUB-Q, Bedtime, if BS > 200, 3 ml, Substitution Allowed, SOLN 200 [facility] Toprol-XL 50 mg oral tablet, extended release 2012-09-02 2 2:47:38 Yes Nestor Xavier Erickson 50 mg, 1 tab, PO, QPM, 30 tab, Subs titution Allowed, ERTAB [facility] Cipro 2012-09-02 19:13:00 No Nolan Marta 400 mg, Route: IVPB, ONCE, Dosing Weight 92.727, kg, Priority: STAT, Start date: 09/02/12 13:13:00, Stop date: 09/02/12 13:13:00 [facility] Maxipime 2012-09-02 19:13:00 No Nolan Marta 2 gm, Route: IVPB, ONCE, Dosing Weight 92.727, kg, Priority: STAT, Start date: 09/02/12 13:13:00, Stop date: 09/02/12 13:13:00 [facility] DuoNeb inhalation solution 2012-09-02 18:52:00 No Prade ep Marta 3 ml, Route: INHALATION, Drug Form: SOLN, Dosing Weight 92.727, kg, PRN, PRN Respiratory Protocol, Start date: 09/02/12 12:52:00, Duration: 30 day, Stop date: 10/02/12 13:51:00 [facility] SoluMedrol 2012-09-02 18:52:00 No Nolan Marta 125 mg, Route: IVP, ONCE, Dosing Weight 92.727, kg, Priority: STAT, Start date: 09/02/12 12:52:00, Stop date: 09/02/12 12:52:00 [facility] melva Zithromax 2012-09-02 18:50:00 No Nolan Marta 500 mg, Route: IVPB, ONCE, Dosing Weight 92.727, kg, Priority: STAT, Start date: 09/02/12 12:50:00, Stop date: 09/02/12 12:50:00 [facility] melva Rocephin 1 g/ NS (NaCl 0.9%) 50 mL IV solution 2012-09-02 18:49:00 No Nolan Marta 1 gm, Route: IVP B, Drug form: PDR/INJ, ONCE, Dosing Weight 92.727, kg, Priority: STAT, Start date: 09/02/12 12:49:00, Stop date: 09/02/12 12:49:00 [facility] pantoprazole 2012-06-27 13:30:00 No Taso Mougouris 40 mg, 1 tab, Route: PO, Drug form: ECTAB, Before Breakfast, Dosing Weight 95, kg, Priority: Routine, Start date: 06/27/12 7:30:00, Duration: 30 day, Stop date: 07/26/12 7:30:00 [facility] Levaquin 2012-06-26 17:00:00 No Taso Mougouris 500 mg, 2 tab, Route: PO, Drug form: TAB, [id number], Dosing Weight 95, kg, Start date: 06/26/12 11:00:00, Duration: 30 day, Stop date: 07/25/12 11:00:00 [facility] Levaquin 500 mg oral tablet 2012-06-26 16:21:01 Yes Taso Mougouris 500 mg, 1 tab, PO, [id number], 4 tab, Substitution Allowed, TAB [facility] Levemir 2012-06-24 23:00:00 No Taso Mougouris 15 unit, 0.15 mL, Route: SUB-Q, Drug form: INJ, QPM, Dosing Weight 95, kg, Start date: 06/24/12 17:00:00, Duration: 30 day, Stop date: 07/23/12 17:00:00 [facility] glucagon 2012-06-24 17:35:00 No Taso Mougouris 1 mg, Route: IM, Drug form: PDR/INJ, PRN, Dosing Weight 95, kg, PRN Abnormal Lab Result, Priority: STAT, Start date: 06/24/12 11:35:00, Duration: 30 day, Stop date: 07/24/12 11:34:00 [facility] insulin aspart 2012-06-24 17:35:00 No Taso Mougouris 2 unit, 0.02 mL, Route: SUB-Q, Drug form: SOLN, Bedtime, Dosing Weight 95, kg, PRN Blood Glucose Results, Start date: 06/24/12 11:35:00, Duration: 30 day, Stop date: 07/24/12 11:34:00 [facility] Dextrose 50% Syringe 2012-06-24 17:35:00 No Taso Mougou ris 12.5 gm, 25 mL, Route: IVP, Drug Form: INJ, Dosing Weight 95, kg, PRN, PRN Blood Glucose Results, Start date: 06/24/12 11:35:00, Duration: 30 day, Stop date: 07/24/12 11:34:00 [facility] docusate 2012-06-24 15:00:00 No Asem Souman 100 mg, 1 cap, Route: PO, Drug form: CAP, BID, Dosing Weight 95, kg, Start date: 06/24/12 9:00:00, Duration: 30 day, Stop date: 07/23/12 17:00:00 [facility] Cycloset 2012-06-24 14:30:[address] [place] 3.2 mg, Route: PO, Drug form: TAB, After Breakfast, Dosing Weight 95, kg, Start date: 06/24/12 8:30:00, Duration: 30 day, Stop date: 07/23/12 8:30:00 [facility] Cycloset 3.2mg PO after breakfast-Use pt's home med 2012-06-24 14:30:00 No Taso Mougouris Cycloset 3. 2mg PO after breakfast-Use pt's home med, 3.2 mg, Drug form: MISC, Route: PO, After Breakfast, 06/24/12 8:30:00, Duration: 30 day, Stop date: 07/23/12 8:30:00 [facility] 2012-06-24 13:30:00 No Taso Mougouris 40 mg, Route: IVP, Drug form: INJ, Before Breakfast, Dosing Weight 95, kg, Priority: Routine, Start date: 06/24/12 7:30:00, Duration: 30 day, Stop date: 07/23/12 7:30:00 [facility] nitroglycerin 0.4 mg sublingual tablet 2012-06-24 06:03:00 No Taso Mougouris 0.4 mg, 1 tab, R oute: SL, Drug form: TAB, Q5Min, PRN Chest Pain, Start date: 06/24/12 0:03:00, Duration: 30 day, Stop date: 07/24/12 0:02:00 [facility] atropine 2012-06-24 06:03:00 No Taso Mougouris 0.5 mg, 5 mL, Route: IVP, Drug form: INJ, PRN, PRN Bradycardia, Start date: 06/24/12 0:03:00, Duration: 30 day, Stop date: 07/24/12 0:02:00 [facility] Rocephin + Sodium Chloride 0.9% IV 100 mL 2012-06-24 05:00 :[address] [place] 1 gm, Route: IVP B, Drug form: PDR/INJ, Q24H, Dosing Weight 95, kg, Priority: Routine, Start date: 06/23/12 23:00:00, Duration: 30 day, Stop date: 07/22/12 23:00:00 [facility] normal saline 0.9% IV 1,000 mL 2012-06-24 04:20:[address] [place] 1,000 mL, Rate: 100 ml/hr, Infuse over: 10 hr, Route: IV, kg, Total Volume: 1,000, Start date: 06/23/12 22:20:00, Stop date: 06/24/12 23:31:00 [facility] acetaminophen 2012-06-24 04:20:00 No Asem Souman 650 mg, 2 tab, Route: PO, Drug form: TAB, Q8H, Dosing Weight 95, kg, PRN Pain/Fever, Start date: 06/23/12 22:20:00, Duration: 30 day, Stop date: 07/23/12 22:19:00 [facility] ondansetron 2012-06-24 04:20:00 No Asem Souman 4 mg, 2 mL, Route: IVP, Drug form: INJ, Q6H, Dosing Weight 95, kg, PRN Nausea & Vomiting, Start date: 06/23/12 22:20:00, Duration: 30 day, Stop date: 07/23/12 22:19:00 [facility] Saline Flush 0.9% 2012-06-24 04:20:00 No Asem Souman 5 ml, Route: IVP, Drug Form: INJ, Dosing Weight 95, kg, PRN, PRN Line Flush, Start date: 06/23/12 22:20:00, Duration: 30 day, Stop date: 07/23/12 22:19:00 [facility] aspirin 81 mg tablet, chewable 2012-06-24 04:00:[address] [place] 81 mg, 1 tab, Route: PO, Drug form: CHEW TAB, Q24H, Dosing Weight 95, kg, Start date: 06/23/12 22:00:00, Duration: 30 day, Stop date: 07/22/12 22:00:00 [facility] Dextrose 50% Syringe 2012-06-24 03:35:00 No Asem Souman 25 gm, 50 mL, Route: IVP, Drug Form: INJ, Dosing Weight 95, kg, PRN, PRN Blood Glucose Results, Start date: 06/23/12 21:35:00, Duration: 30 day, Stop date: 07/23/12 21:34:00 [facility] glucagon 2012-06-24 03:35:00 No Asem Souman 1 mg, Route: IM, Drug form: PDR/INJ, PRN, Dosing Weight 95, kg, PRN Blood Glucose Results, Start date: 06/23/12 21:35:00, Duration: 30 day, Stop date: 07/23/12 21:34:00 [facility] insulin aspart 2012-06-24 03:35:00 No Asem Souman 1 unit, 0.01 mL, Route: SUB-Q, Drug form: SOLN, TID-Before Meals, Dosing Weight 95, kg, PRN Blood Glucose Results, Start date: 06/23/12 21:35:00, Duration: 30 day, Stop date: 07/23/12 21:34:00 Balbina Hahn chlorthalidone 25 mg oral tablet 2012-06-24 02:34:35 Yes 12.5 mg, 0.5 tab, PO, Daily, Substitution Allowed [facility] Cycloset 0.8 mg oral tablet 2012-06-24 02:25:43 Yes Nnen na N [place] 3.2 mg, 4 tab, PO, After Breakfast, 2 hours after breakfast, Substitution Allowed2 hours after breakfast [facility] Calcium 600 +D oral tablet 2012-06-24 02:24:29 Yes 1 tab, PO, Daily, Substitution Allowed, Maintenance Qing Cho metoprolol 50 mg oral tablet, extended release 2012-06-24 02:21: 59 Yes 50 mg, 1 tab, PO, BID, Substitution Allowed Balbina Jovani Cycloset 2012-06-24 00:56:18 No Substitutio n Allowed [facility] Osteo Bi-Flex 2012-06-24 00:55:16 Yes 1 tab, PO, Daily, Substitution Allowed, Maintenance [facility] Vitamin D3 1000 intl units oral capsule 2012-06-24 00:54:56 Yes 1,000 IntlUnit, 1 cap, PO, Daily, 100 cap, Substitution Allowed, CAP [facility] aspirin 81 mg tablet, chewable 2012-06-24 00:54:[address] [place] 81 mg, 1 tab, PO, Daily, 30 tab, Substitution Allowed, CHEWTAB [facility] Levemir FlexPen 2012-06-24 00:54:15 Yes 15 unit, SUB-Q, Bedtime, Substitution Allowed [facility] Byetta 5 mcg/0.02 mL subcutaneous solution 2012-06-24 00:54:00 Yes 5 microgram, 0.02 mL, SUB-Q, Daily, Substitution Allowed [facility] atorvastatin 10 mg oral tablet 2012-06-24 00:53:23 Yes 10 mg, 1 tab, PO, QAM, 30 tab, Substitution Allowed, TAB [facility] amLODipine 5 mg oral tablet 2012-06-24 00:53:10 Yes 5 mg, 1 tab, PO, BID, Substitution Allowed [facility] nn Diovan 320 mg oral tablet 2012-06-24 00:52:33 Yes 320 mg, 1 tab, PO, Daily, 30 tab, Substitution Allowed, TAB [facility] metoprolol 50 mg oral tablet 2012-06-24 00:52:06 No 50 mg, 1 tab, PO, BID, 180 tab, Substitution Allowed, TAB [facility] glimepiride 4 mg oral tablet 2012-06-24 00:51:53 Yes 4 mg, 1 tab, PO, BID, Substitution Allowed Balbina Casiano ermann ciprofloxacin 2012-06-24 00:28:00 No Asem Souman 400 mg, Route: IVPB, ONCE, Dosing Weight 95, kg, Priority: STAT, Start date: 06/23/12 18:28:00, Stop date: 06/23/12 18:28:00 Balbina Hanh Sodium Chloride 0.9% IV 1,000 mL 2012-06-24 [...] and Vomiting, Substitution AllowedDissolve tab under tongue [facility] Macrobid 100 mg oral capsule 2012-06-22 17:28:12 Yes Nne day[place] N [place] 100 mg, 1 cap, PO, BID, 14 cap, Substitution Allowed [facility] Sodium Chloride 0.9% (Bolus) IV 1,000 mL 2012-06-22 15:07: [address] 1,000 mL, Rate: 1,000 ml/hr, Infuse over: 1 hr, Route: IV, Dosing Weight 95 kg, Total Volume: 1,000, Bolus dose, Priority: STAT, Start date: 06/22/12 9:07:00, Duration: 1 doses or times, Stop date: 06/22/12 10:06:00 [facility] Saline Flush 0.9% 2012-06-22 15:07:00 No Hari blake 5 mL, Route: IVP, Dosing Weight 95, kg, PRN, PRN Line Flush, Start date: 06/22/12 9:07:00, Duration: 24 hr, Stop date: 06/23/12 9:06:00 [facility] ondansetron 2012-06-22 15:07:[address] 4 mg, Route: IVP, ONCE, Dosing Weight 95, kg, Priority: STAT, Start date: 06/22/12 9:07:00, Stop date: 06/22/12 9:07:00 [facility]ens Atorvastatin Calcium 10 MG Oral Tablet Atorvastatin Calcium 10 M G Oral Tablet Yes 1 QD TAKE 1 TABLET DAILY. [facility] Levemir 100 UNIT/ML Subcutaneous Solution Levemir 100 UNIT/ML Subcutaneous Solution Yes 15 INJECT 15 UNIT At Bedtime PER PATIENT, DOSE BETWEEN 15-18 UNITS AT BEDTIME, DEPENDING ON BLOOD SUGAR [facility] Vitamin D 50 MCG (1999 [place]) Oral Capsule Vitamin D 50 MCG ( [place]) Oral Capsule Yes 1 QD TAKE 1 CAPSULE DAILY [facility] Ursodiol 300 MG Oral Capsule Ursodiol 300 MG Oral Capsule Y es 1 capsule bid [facility] Pantoprazole Sodium 40 MG Oral Tablet Delayed Release Pantoprazole Sodium 40 MG Oral Tablet Delayed Release Yes 1 QD TAKE 1 TAB LET DAILY. [facility] Eliquis 2.5 MG Oral Tablet Eliquis 2.5 MG Oral Tablet Yes 1 Q0.5D TAKE 1 TABLET TWICE DAILY [facility] Furosemide 40 MG Oral Tablet Furosemide 40 MG Oral Tablet Y es QD take 20 or 40 QD [facility] Multaq 400 MG Oral Tablet Multaq 400 MG Oral Tablet Yes TAKE 1 TABLET TWICE DAILY, WITH MORNING AND EVENING MEAL x 30 DAYS [facility] Montelukast Sodium 10 MG Oral Tablet Montelukast Sodium 10 MG Oral Tablet Yes QD TAKE 1 TABLET DAILY. Uni versity [facility] Osteo Bi-Flex Regular Strength TABS Osteo Bi-Flex Regular Strength TA BS Yes TAKE DIRECTED. Un iversity [facility] HumaLOG SOLN HumaLOG SOLN Yes 12-15 units wi th each meal on S/S [facility] Uloric 40 MG Oral Tablet Uloric 40 MG Oral Tablet Yes 1 QD TAKE 1 TABLET DAILY. [facility] Telmisartan 80 MG Oral Tablet Telmisartan 80 MG Oral Tablet Yes QD TAKE 1 TABLET ONCE DAILY. [facility] Albuterol Sulfate 0.63 Mg/3 Ml Vial.neb Albuterol Sulfate 0. 63 Mg/3 Ml Vial.neb Yes 3 Four Times Daily [facility] Apixaban (Eliquis) 2.5 Mg Tablet Apixaban (Eliquis) 2.5 Mg Tablet Yes 2.5 Twice A Day [facility] Atorvastatin Calcium 10 Mg Tablet Atorvastatin Calcium 10 Mg Tablet Yes 10 Today At 9:00PM [facility] Budesonide 0.5 Mg/2 Ml Ampul.neb Budesonide 0.5 Mg/2 Ml Ampul.neb Yes 2 Four Times Daily [facility] Dronedarone (Multaq 400MG Tablets*) 400 Mg Tab Droneda sheldon (Multaq 400MG Tablets*) 400 Mg Tab Yes 400 Twice A Day [facility] Ellshlomo Tranura Yes 36 Daily [facility] Febuxostat (Uloric) 40 Mg Tablet Febuxostat (Uloric) 40 Mg Tablet Yes 40 Daily [facility] Furosemide 40 Mg Tablet Furosemide 40 Mg Tablet Yes 20 Daily [facility] Insulin Detemir (Levemir) 100 Unit/1 Ml Vial Insulin D etemir (Levemir) 100 Unit/1 Ml Vial Yes 15 Bedtime [facility] Insulin Lispro (Humalog) 100 Unit/1 Ml Cartridge Insul in Lispro (Humalog) 100 Unit/1 Ml Cartridge Yes [facility] Montelukast Sodium (Singulair) 10 Mg Tablet Montelukas t Sodium (Singulair) 10 Mg Tablet Yes 10 Bedtime [facility] Nifedipine (Nifedipine Er) 30 Mg Tab.er.24 Nifedipine (Nifedipine Er) 30 Mg Tab.er.24 Yes 30 Daily [facility] Ondansetron Hcl (Zofran*) 4 Mg Tablet Ondansetron Hcl (Zofran*) 4 M g Tablet Yes 8 Every 8 Hours as needed for Nausea And V omiting [facility] Pantoprazole Sodium (Protonix) 40 Mg Tablet. Pantopr azole Sodium (Protonix) 40 Mg Tablet. Yes 40 Daily [facility] Sennosides (Senna Lax) 8.6 Mg Tablet Sennosides (Senna Lax) 8.6 Mg Tablet Yes 8.6 Daily as needed for Constipation [facility] Telmisartan (Micardis) 80 Mg Tablet Telmisartan (Micardis) 80 Mg Tabl et Yes 80 Daily [facility] Ursodiol 300 Mg Capsule Ursodiol 300 Mg Capsule Yes 300 Three Times A Day [facility] Cholecalciferol (Vitamin D3) (Vitamin D3) 2,000 Unit T ablet, Cholecalciferol (Vitamin D3) (Vitamin D3) 2,000 Unit Tablet, 2019-08-19 00:00:00 No [facility] Glucosamine/D3/Boswellia Ilene (Osteo Bi-Flex Caplet) 1 Each Tablet, Glucosamine/D3/Boswellia Ilene (Osteo Bi-Flex Caplet) 1 Each Tablet, 2019-08-19 00:00:00 No [facility] Telmisartan (Micardis) 40 Mg Tab, 40 Mg Oral Telmisart an (Micardis) 40 Mg Tab, 40 Mg Oral 2019-08-19 00:00:00 No 40 Daily [facility] Immunizations Ordered Immunization Name Filled Immunization Name Date Status Comments Source Pneumococcal polysaccharide vaccine, 23 valent 2020-04 13:13:00 Completed [facility] Fluzone Quadrivalent 0.5 ML Intramuscular Suspension Prefill ed Syringe 2020-04-14 10:05:00 Completed [facility] Fluzone Quadrivalent 0.5 ML Intramuscular Suspension 2018-03-22 00:00:00 Completed [facility] Influenza 2016-04-21 00:00:00 [facility] 13 Intramuscular Suspension 2015-09-23 16:55:00 Co mpleted [facility] Fluzone Quadrivalent 0.5 ML Intramuscular Suspension 2015-05-04 00:00:00 Completed [facility] Fluzone INJ 2014-04-15 00:00:00 Completed [facility] Pneumovax 23 25 MCG/0.5ML Injection Injectable 2013-08 00:00:00 Completed [facility] Vital Signs Vital Name Observation Time Observation Value Comments Source Systolic blood pressure 2020-05-05 12:43:00 194 mm[Hg] Loca tion: LLE; Position: Sitting [facility] Diastolic blood pressure 2020-05-05 12:43:00 72 mm[Hg] Loc ation: LLE; Position: Sitting [facility] Body height 2020-05-05 12:43:00 62 [in_us] [facility] Weight 2020-05-05 12:43:00 196 [lb_av] [facility] Body mass index (BMI) [Ratio] 2020-05-05 12:43:00 35.85 kg/m2 [facility] Body temperature 2020-05-05 12:43:00 97.5 [degF] Method: Temporal [facility] Heart Rate 2020-05-05 12:43:00 62 /min [facility] Respiratory rate 2020-05-05 12:43:00 16 /min [facility] Weight 2020-04-22 08:50:00 195 [lb_av] [facility] Body mass index (BMI) [Ratio] 2020-04-22 08:50:00 35.67 kg/m2 [facility] Body height 2020-04-22 08:50:00 62 [in_us] [facility] Systolic (mm Hg) 2019-12-22 15:39:00 Rashi [facility] Diastolic (mm Hg) 2019-12-22 15:39:00 [facility] Heart Rate 2019-12-22 15:39:00 [facility] Temperature Oral (F) 2019-12-22 15:39:00 98.1 F [facility] Height 2019-12-22 15:39:00 154.94 cm [facility] Weight 2019-12-22 15:39:00 [facility] BMI Calculated 2019-12-22 15:39:00 Benjaminjanel yanique [place] Systolic blood pressure 2019-09-30 09:34:00 166 mm[Hg] Loca tion: LUE; Position: Sitting [facility] Diastolic blood pressure 2019-09-30 09:34:00 70 mm[Hg] Loc ation: LUE; Position: Sitting [facility] Body height 2019-09-30 09:34:00 62 [in_us] [facility] Body temperature 2019-09-30 09:34:00 98.2 [degF] Method: Oral [facility] Heart Rate 2019-09-30 09:34:00 65 /min Location: L Brachial Artery; [facility] Systolic blood pressure 2019-09-24 12:06:00 138 mm[Hg] [place] [facility] Diastolic blood pressure 2019-09-24 12:06:00 65 mm[Hg] [place] [facility] Heart rate 2019-09-24 12:06:00 64 /min [place] [facility] Respiratory rate 2019-09-24 12:06:00 17 /min [place] [facility] Body temperature 2019-09-24 11:59:12 35.94 Mirlande [place] [facility] Oxygen saturation in Arterial blood by Pulse oximetry 09-23 11:59:12 92 /min [place] [facility] Body height 2019-09-23 12:55:00 157.5 cm [facility] Body temperature 2019-09-11 15:06:00 98.1 [degF] Method: Temporal [facility] Systolic blood pressure 2019-09-03 09:08:00 120 mm[Hg] Loca tion: LUE; Position: Sitting [facility] Diastolic blood pressure 2019-09-03 09:08:00 54 mm[Hg] Loc ation: LUE; Position: Sitting [facility] Body height 2019-09-03 09:08:00 62 [in_us] [facility] Weight 2019-09-03 09:08:00 204.5 [lb_av] [facility] Body mass index (BMI) [Ratio] 2019-09-03 09:08:00 37.4 kg/m2 [facility] Body temperature 2019-09-03 09:08:00 98.3 [degF] Method: Oral [facility] Heart Rate 2019-09-03 09:08:00 62 /min Location: L Brachial Artery; [facility] Systolic blood pressure 2019-08-28 12:59:00 115 mm[Hg] Loca tion: LUE; Position: Sitting [facility] Diastolic blood pressure 2019-08-28 12:59:00 69 mm[Hg] Loc ation: LUE; Position: Sitting [facility] Body height 2019-08-28 12:59:00 62 [in_us] [facility] Weight 2019-08-28 12:59:00 205 [lb_av] [facility] Body mass index (BMI) [Ratio] 2019-08-28 12:59:00 37.5 kg/m2 [facility] Body temperature 2019-08-28 12:59:00 98.3 [degF] Method: Temporal [facility] Respiratory rate 2019-08-28 12:59:00 16 /min [facility] Heart Rate 2019-08-28 12:59:00 67 /min [facility] Systolic blood pressure 2019-07-31 17:44:58 152 [...] 16:44:00 [facility] Weight 2019-06-25 16:44:00 Balbina [place] BMI Calculated 2019-06-25 16:44:00 Qing Cho BP Systolic 2019-01-26 14:51:00 128 mm[Hg] Location: ANASTASIYA; Positi on: Sitting [facility] BP Diastolic 2019-01-26 14:51:00 73 mm[Hg] Location: ANASTASIYA; Positi on: Sitting [facility] Height 2019-01-26 14:51:00 62 [in_us] [facility] Weight 2019-01-26 14:51:00 209.5625 [lb_av] [facility] Calculated 2019-01-26 14:51:00 38.33 kg/m2 [facility] Temperature 2019-01-26 14:51:00 97.4 [degF] Method: [facility] Heart Rate 2019-01-26 14:51:00 60 /min [facility] Respiration Rate 2019-01-26 14:51:00 16 /min [facility] BMI Calculated 2019-01-06 15:46:[facility] [place] Height 2019-01-06 15:46:00 157.48 cm [facility] Weight 2019-01-06 15:46:00 [facility] Systolic (mm Hg) 2019-01-06 15:46:00 Rashi riajacqueline Jov[facility] Diastolic (mm Hg) 2019-01-06 15:46:00 [facility] orial [facility]ov[facility] Heart Rate 2019-01-06 15:46:00 [facility] BP Systolic 2018-11-18 13:01:00 115 mm[Hg] Location: ANASTASIYA; Positi on: Sitting [facility] BP Diastolic 2018-11-18 13:01:00 64 mm[Hg] Location: ANASTASIYA; Positi on: Sitting [facility] Height 2018-11-18 13:01:00 62 [in_us] [facility] Body Mass Index Calculated 2018-11-18 13:01:00 38.07 kg/m2 [facility] Weight 2018-11-18 13:01:00 208.125 [lb_av] Unive [facility] Temperature 2018-11-18 13:01:00 97.8 [degF] Method: [facility]poral [facility] Heart Rate 2018-11-18 13:01:00 52 /min [facility] Respiration Rate 2018-11-18 13:01:00 16 /min [facility] BP Systolic 2018-11-18 12:59:00 115 mm[Hg] Location: ANASTASIYA; Positi on: Sitting [facility] BP Diastolic 2018-11-18 12:59:00 64 mm[Hg] Location: ANASTASIYA; Positi on: Sitting [facility] Height 2018-11-18 12:59:00 62 [in_us] [facility] Body Mass Index Calculated 2018-11-18 12:59:00 38.07 kg/m2 [facility] Weight 2018-11-18 12:59:00 208.125 [lb_av] Unive [facility] Temperature 2018-11-18 12:59:00 97.8 [degF] Method: Temporal [facility] Heart Rate 2018-11-18 12:59:00 52 /min [facility] Respiration Rate 2018-11-18 12:59:00 16 /min [facility] Height 2018-07-08 16:31:00 157.48 cm [facility] BMI Calculated 2018-07-08 16:31:00 Memori al [facility] Weight 2018-07-08 16:31:00 [facility] [place] Systolic (mm Hg) 2018-07-08 16:31:00 Rashi rial [place] Diastolic (mm Hg) 2018-07-08 16:31:00 Mem [facility] Respitory Rate 2018-07-08 16:31:00 Memori al [place] Heart Rate 2018-07-08 16:31:00 [facility] BP Systolic 2018-07-02 13:02:00 138 mm[Hg] Location: ANASTASIYA; Positi on: Sitting [facility] BP Diastolic 2018-07-02 13:02:00 78 mm[Hg] Location: ANASTASIYA; Positi on: Sitting [facility] Height 2018-07-02 13:02:00 62 [in_us] [facility] Weight 2018-07-02 13:02:00 205.125 [lb_av] [facility] Body Mass Index Calculated 2018-07-02 13:02:00 37.52 kg/m2 [facility] Temperature 2018-07-02 13:02:00 97.6 [degF] Method: Temporal [facility] Respiration Rate 2018-07-02 13:02:00 16 /min [facility] Heart Rate 2018-07-02 13:02:00 74 /min [facility] BMI Calculated 2018-04-09 14:25:00 Memori [facility] [place] Weight 2018-04-09 14:25:00 [facility] [place] Height 2018-04-09 14:25:00 157.48 cm [facility] Systolic (mm Hg) 2018-04-09 14:25:00 Rashi rial [place] Diastolic (mm Hg) 2018-04-09 14:25:00 Mem orial [place] Heart Rate 2018-04-09 14:25:00 [facility] [place] Systolic (mm Hg) 2017-12-09 14:32:00 Rashi rial [facility] Diastolic (mm Hg) 2017-12-09 14:32:00 Mem [facility] Weight 2017-12-09 14:32:00 [facility] [place] Heart Rate 2017-12-09 14:32:00 [facility] Height 2017-12-09 14:32:00 157.48 cm [facility] BMI Calculated 2017-12-09 14:32:00 Memori [facility] [place] BP Systolic 2017-11-19 14:13:00 136 mm[Hg] Location: LUE; Positi on: Sitting [facility] BP Diastolic 2017-11-19 14:13:00 83 mm[Hg] Location: LUE; Positi on: Sitting [facility] Height 2017-11-19 14:13:00 62 [in_us] [facility] Weight 2017-11-19 14:13:00 224 [lb_av] [facility] Body Mass Index Calculated 2017-11-19 14:13:00 40.97 kg/m2 [facility] Temperature 2017-11-19 14:13:00 97.8 [degF] Method: Temporal [facility] Heart Rate 2017-11-19 14:13:00 73 /min [facility] Respiration Rate 2017-11-19 14:13:00 16 /min [facility] BP Systolic 2017-10-18 12:09:00 138 mm[Hg] Location: GAYE; Positi on: Sitting [facility] BP Diastolic 2017-10-18 12:09:00 79 mm[Hg] Location: LUE; Positi on: Sitting [facility] BP Systolic 2017-10-18 12:07:00 147 mm[Hg] Location: [facility] [place]iti on: Sitting [facility] BP Diastolic 2017-10-18 12:07:00 75 mm[Hg] Location: [facility] [place] on: Sitting [facility] Weight 2017-10-18 12:07:00 217.0625 [lb_av] [facility] Body Mass Index Calculated 2017-10-18 12:07:00 39.7 kg/m2 [facility] Height 2017-10-18 12:07:00 62 [in_us] [facility] Temperature 2017-10-18 12:07:00 97.5 [degF] Method: Temporal [facility] Heart Rate 2017-10-18 12:07:00 64 /min [facility] Respiration Rate 2017-10-18 12:07:00 17 /min [facility] Systolic (mm Hg) 2017-08-05 16:48:00 Rashi rial [place] Diastolic (mm Hg) 2017-08-05 16:48:00 Mem [facility] Heart Rate 2017-08-05 16:48:00 [facility] [place] BMI Calculated 2017-08-05 16:48:00 Memori al [facility] Weight 2017-08-05 16:48:00 [facility] Height 2017-08-05 16:48:00 157.48 cm [facility] [place] Systolic (mm Hg) 2016-04-09 21:00:00 Rashi rial [place] Diastolic (mm Hg) 2016-04-09 21:00:00 Mem o[facility] [place] Respitory Rate 2016-04-09 21:00:00 Memori al [place] Heart Rate 2016-04-09 21:00:00 [facility] Temperature Oral (F) 2016-04-09 21:00:00 98.1 F [facility] Heart Rate 2016-04-09 16:36:00 [facility] Temperature Oral (F) 2016-04-09 16:36:00 97.8 F [facility] [place] Respitory Rate 2016-04-09 16:36:00 Memori [facility] [place] Systolic (mm Hg) 2016-04-09 16:36:00 Rashi rial [place] Diastolic (mm Hg) 2016-04-09 16:36:00 Mem [facility] Temperature Oral (F) 2016-04-09 13:00:00 98.2 F [facility] Systolic (mm Hg) 2016-04-09 13:00:00 Rashi rial [place] Diastolic (mm Hg) 2016-04-09 13:00:00 Mem [facility] Respitory Rate 2016-04-09 13:00:00 Memori [facility] [place] Heart Rate 2016-04-09 13:00:00 [facility] [place] Height 2016-04-07 14:23:00 157.48 cm [facility] BMI Calculated 2016-04-07 14:23:00 [facility] [place] Weight 2016-04-07 14:23:00 [facility] BMI Calculated 2016-04-07 10:55:00 [facility] Weight 2016-04-07 10:55:00 [facility] Height 2016-04-07 10:55:00 167.64 cm [facility] Respitory Rate 2016-04-07 01:39:00 Memori al [facility] Systolic (mm Hg) 2016-04-07 01:39:00 Rashi rial [facility] Diastolic (mm Hg) 2016-04-07 01:39:00 Mem o[facility] [place] Heart Rate 2016-04-07 01:39:00 [facility] Temperature Oral (F) 2016-04-07 01:39:00 98.6 F [facility] Height 2016-04-06 18:18:00 157.48 cm [facility] Weight 2016-04-06 18:18:00 [facility] [place] BMI Calculated 2016-04-06 18:18:00 [facility] [place] Respitory Rate 2016-04-06 18:18:00 [facility] al [facility] Heart Rate 2016-04-06 18:18:00 [facility] [place] Systolic (mm Hg) 2016-04-06 18:18:00 Rashi rial [place] Diastolic (mm Hg) 2016-04-06 18:18:00 [facility] [place] Temperature Oral (F) 2016-04-06 18:18:00 98.3 F [facility] [place] Systolic (mm Hg) 2015-10-01 18:38:00 Rashi rial [facility] Diastolic (mm Hg) 2015-10-01 18:38:00 Mem [facility] Respitory Rate 2015-10-01 18:38:00 [facility] Temperature Oral (F) 2015-10-01 18:38:00 98.2 F [facility] Heart Rate 2015-10-01 18:38:00 [facility] [place] Heart Rate 2015-10-01 16:41:00 [facility] Respitory Rate 2015-10-01 16:41:00 Memori al [facility] Systolic (mm Hg) 2015-10-01 16:41:00 Rashi rial J[facility] Diastolic (mm Hg) 2015-10-01 16:41:00 [facility] Systolic (mm Hg) 2015-10-01 14:01:00 Rashi rial [facility] Diastolic (mm Hg) 2015-10-01 14:01:00 [facility] Weight 2015-10-01 14:01:00 [facility] [place] BMI Calculated 2015-10-01 14:01:00 [facility] [place] Height 2015-10-01 14:01:00 157.48 cm [facility] Temperature Oral (F) 2015-10-01 14:01:00 97.6 F [facility] Respitory Rate 2015-10-01 14:01:00 [facility] [place] Heart Rate 2015-10-01 14:01:00 [facility] [place] Temperature Oral (F) 2015-09-22 20:00:00 98.0 F [facility] Respitory Rate 2015-09-22 20:00:00 Memori [facility] [place] Systolic (mm Hg) 2015-09-22 20:00:00 Rashi rial [place] Diastolic (mm Hg) 2015-09-22 20:00:00 Mem [facility] Respitory Rate 2015-09-22 18:45:00 Mem[facility] [place] Systolic (mm Hg) 2015-09-22 18:45:00 Rashi rial [place] Diastolic (mm Hg) 2015-09-22 18:45:00 Mem o[facility] [place] Systolic (mm Hg) 2015-09-22 17:15:00 Rashi rial [facility] Diastolic (mm Hg) 2015-09-22 17:15:00 Mem o[facility] [place] Respitory Rate 2015-09-22 17:15:00 [facility] Height 2015-09-22 14:23:00 157.48 cm [facility] BMI Calculated 2015-09-22 14:23:00 [facility] Weight 2015-09-22 14:23:00 [facility] [place] Temperature Oral (F) 2015-09-22 14:23:00 98.2 F [facility] Heart Rate 2015-09-22 14:23:00 [facility] [place] Respitory Rate 2015-05-02 20:26:00 Memori al [facility] Systolic (mm Hg) 2015-05-02 20:26:00 Rashi rial [facility] Diastolic (mm Hg) 2015-05-02 20:26:00 Mem o[facility] [place] Heart Rate 2015-05-02 20:26:00 [facility] Temperature Oral (F) 2015-05-02 20:26:00 98.0 F [facility] [place] Height 2015-05-02 16:24:00 157.48 cm [facility] [place] BMI Calculated 2015-05-02 16:24:00 [facility] [place] Weight 2015-05-02 16:24:00 [facility] [place] Respitory Rate 2015-05-02 16:24:00 [facility] Heart Rate 2015-05-02 16:24:00 [facility] Systolic (mm Hg) 2015-05-02 16:24:00 Rashi rial Oj[facility] Diastolic (mm Hg) 2015-05-02 16:24:00 Mem [facility] Temperature Oral (F) 2015-05-02 16:24:00 97.7 F [facility] Temperature Oral (F) 2015-03-01 18:17:00 98.1 F [facility] [place] Heart Rate 2015-03-01 18:17:00 [facility] Respitory Rate 2015-03-01 18:17:00 Memori [facility] [place] Systolic (mm Hg) 2015-03-01 18:17:00 Rashi rial [place] Diastolic (mm Hg) 2015-03-01 18:17:00 Mem [facility] [place] Temperature Oral (F) 2015-03-01 12:45:00 98.1 F [facility] Systolic (mm Hg) 2015-03-01 12:45:00 Rashi rial [facility] Diastolic (mm Hg) 2015-03-01 12:45:00 Mem o[facility] [place] Respitory Rate 2015-03-01 12:45:00 [facility] Heart Rate 2015-03-01 12:45:00 [facility] Respitory Rate 2015-03-01 11:51:00 [facility] Heart Rate 2015-03-01 09:00:00 [facility] [place] Systolic (mm Hg) 2015-03-01 09:00:00 Rashi rial [place] Diastolic (mm Hg) 2015-03-01 09:00:00 [facility] Temperature Oral (F) 2015-03-01 09:00:00 97.7 F [facility] BMI Calculated 2015-02-27 13:58:00 [facility]ori [facility] [place] Weight 2015-02-27 13:58:00 [facility] [place] Height 2015-02-27 13:58:00 157.48 cm [facility] [place] Height 2015-02-27 11:31:00 157.48 cm [facility] [place] BMI Calculated 2015-02-27 11:31:00 Mem[facility] [place] Weight 2015-02-27 11:31:00 [facility] BMI Calculated 2015-02-27 06:31:00 [facility] [place] Weight 2015-02-27 06:31:00 [facility] Height 2015-02-27 06:31:00 157.48 cm [facility] Systolic (mm Hg) 2014-10-10 19:01:00 Rashi rial [facility] Diastolic (mm Hg) 2014-10-10 19:01:00 Mem [facility] Respitory Rate 2014-10-10 19:01:00 [facility]ori [facility] [place] Respitory Rate 2014-10-10 18:36:00 [facility] [place] Systolic (mm Hg) 2014-10-10 18:36:00 Rashi rial [place] Diastolic (mm Hg) 2014-10-10 18:36:00 Mem o[facility] [place] Respitory Rate 2014-10-10 16:54:00 Mem[facility] [place] Systolic (mm Hg) 2014-10-10 16:04:00 Rashi rial [facility] Diastolic (mm Hg) 2014-10-10 16:04:00 [facility] Heart Rate 2014-10-10 16:04:00 [facility] [place] Temperature Oral (F) 2014-10-10 16:04:00 97.6 F [facility] [place] BMI Calculated 2014-10-10 16:04:00 [facility] Weight 2014-10-10 16:04:00 [facility] [place] Height 2014-10-10 16:04:00 157.48 cm [facility] [place] Heart Rate 2014-08-23 03:00:00 [facility] [place] Temperature Oral (F) 2014-08-23 03:00:00 98.1 F [facility] Diastolic (mm Hg) 2014-08-23 03:00:00 Mem o[facility] [place] Systolic (mm Hg) 2014-08-23 03:00:00 Rashi rial [facility] Diastolic (mm Hg) 2014-08-23 01:26:00 Mem [facility] [place] Systolic (mm Hg) 2014-08-23 01:26:00 Rashi rial [place] Temperature Oral (F) 2014-08-23 01:26:00 98.1 F [facility] [place] Respitory Rate 2014-08-23 01:26:00 [facility] [place] Heart Rate 2014-08-23 01:26:00 [facility] Respitory Rate 2014-08-23 00:48:00 [facility] [place] Heart Rate 2014-08-23 00:48:00 [facility] [place] Diastolic (mm Hg) 2014-08-23 00:48:00 Mem [facility] Systolic (mm Hg) 2014-08-23 00:48:00 Rashi rial [facility] Temperature Oral (F) 2014-08-22 23:19:00 98.1 F [facility] Respitory Rate 2014-08-22 23:19:00 [facility] [place] BMI Calculated 2014-08-22 23:19:00 [facility] Weight 2014-08-22 23:19:00 [facility] Height 2014-08-22 23:19:00 157.48 cm [facility] [place] Diastolic (mm Hg) 2014-05-16 22:27:00 Mem [facility] Respitory Rate 2014-05-16 22:27:00 [facility] [place] Heart Rate 2014-05-16 22:27:00 [facility] Systolic (mm Hg) 2014-05-16 22:27:00 Rashi rial [facility] Systolic (mm Hg) 2014-05-16 21:20:00 Rashi rial [facility] Diastolic (mm Hg) 2014-05-16 21:20:00 [facility] Heart Rate 2014-05-16 21:20:00 [facility] [place] Respitory Rate 2014-05-16 21:20:00 [facility] [place] Respitory Rate 2014-05-16 18:08:00 [facility] Heart Rate 2014-05-16 17:02:00 [facility] Diastolic (mm Hg) 2014-05-16 17:02:00 [facility] Systolic (mm Hg) 2014-05-16 17:02:00 Rashi rial [place] Temperature Oral (F) 2014-05-16 17:02:00 98.1 F [facility] [place] Weight 2014-05-16 17:02:00 [facility] [place] BMI Calculated 2014-05-16 17:02:00 [facility] [place] Height 2014-05-16 17:02:00 157.48 cm [facility] [place] Systolic (mm Hg) 2013-01-09 20:30:00 Rashi rial [place] Diastolic (mm Hg) 2013-01-09 20:30:00 [facility] [place] Respitory Rate 2013-01-09 20:30:00 [facility] [place] Temperature Oral (F) 2013-01-09 20:30:00 97.8 F [facility] [place] Heart Rate 2013-01-09 20:30:00 [facility] [place] Diastolic (mm Hg) 2013-01-09 17:00:00 [facility] Systolic (mm Hg) 2013-01-09 17:00:00 Rashi rial [place] Respitory Rate 2013-01-09 17:00:00 [facility] Temperature Oral (F) 2013-01-09 17:00:00 97.4 F [facility] [place] Heart Rate 2013-01-09 17:00:00 [facility] [place] Respitory Rate 2013-01-09 13:08:00 [facility] Systolic (mm Hg) 2013-01-09 13:00:00 Rashi rial [place] Temperature Oral (F) 2013-01-09 13:00:00 97.3 F [facility] Heart Rate 2013-01-09 13:00:00 [facility] Diastolic (mm Hg) 2013-01-09 13:00:00 [facility] Height 2013-01-08 07:47:00 157.48 cm [facility] Weight 2013-01-08 07:47:00 [facility] Weight 2013-01-08 00:46:00 [facility] Height 2013-01-08 00:46:00 157.48 cm [facility] Rate 2012-09-03 18:00:00 [facility] Respitory Rate 2012-09-03 18:00:00 [facility] Temperature Oral (F) 2012-09-03 18:00:00 98.4 F [facility] Systolic (mm Hg) 2012-09-03 18:00:00 [facility] Diastolic (mm Hg) 2012-09-03 18:00:00 [facility] Temperature Oral (F) 2012-09-03 13:54:00 97.8 F [facility] Respitory Rate 2012-09-03 13:54:00 [facility] Heart Rate 2012-09-03 13:54:00 [facility] Systolic (mm Hg) 2012-09-03 13:54:00 [facility] Diastolic (mm Hg) 2012-09-03 13:54:00 [facility] Respitory Rate 2012-09-03 12:14:00 [facility] Rate 2012-09-03 10:00:00 [facility] Temperature Oral (F) 2012-09-03 10:00:00 97.6 F [facility] Diastolic (mm Hg) 2012-09-03 10:00:00 [facility] Systolic (mm Hg) 2012-09-03 10:00:00 [facility] Height 2012-09-02 23:16:00 157.48 cm [facility] Weight 2012-09-02 23:16:00 [facility] Height 2012-09-02 17:51:00 157.48 cm [facility] Weight 2012-09-02 17:51:00 [facility] Respitory Rate 2012-06-26 16:17:00 [facility] Temperature Oral (F) 2012-06-26 14:00:00 97.8 F [facility] Diastolic (mm Hg) 2012-06-26 14:00:00 [facility] Heart Rate 2012-06-26 14:00:00 [facility] Systolic (mm Hg) 2012-06-26 14:00:00 [facility] Respitory Rate 2012-06-26 14:00:00 [facility] Respitory Rate 2012-06-26 10:00:00 [facility] Temperature Oral (F) 2012-06-26 10:00:00 98.0 F [facility] Rate 2012-06-26 10:00:00 [facility] Systolic (mm Hg) 2012-06-26 10:00:00 [facility] Diastolic (mm Hg) 2012-06-26 10:00:00 [facility] Diastolic (mm Hg) 2012-06-26 06:00:00 [facility] Systolic (mm Hg) 2012-06-26 06:00:00 Rashi bowser [...] ABDOMEN COMPLETE 2020-05-09 08:55:00 Elvin Lopez I [facility] [QL] CBC (INCLUDES DIFF/PLT) 2020-04-22 00:00:00 [facility] [QL] CMP W/EGFR 2020-04-22 00:00:00 [facility] [Q] LIPID PANEL WITH REFLEX TO DIRECT LDL 2020-04-22 00:00:00 [facility] [QL] TSH, 3RD GENERATION W/REFLEX TO FT4 2020-04-22 00:00:00 [facility] [Q] HEMOGLOBIN A1C WITH MPG 2020-04-22 00:00:00 [facility] POC GLUCOSE 2019-09-24 12:00:00 [...] Marina Rasheed ESTIMATED GFR 2019-09-23 13:32:00 Marina Rasheed Meth odist [[facility]] CULTURE, URINE, ROUTINE 2019-09-11 00:00:00 [facility] [[facility]] URINALYSIS, COMPLETE 2019-09-11 [facility]:00[facility] CULTURE, URINE, ROUTINE 2019-09-09 00:00:00 [facility] [[facility]] CBC (INCLUDES DIFF/PLT) 2019-09-03 00:00:00 [facility] [[facility]] CMP W/EGFR 2019-09-03 00:00:00 [facility] [[facility]] CULTURE, URINE, ROUTINE 2019-09-03 00:00:00 [facility] [[facility]] CULTURE, URINE, ROUTINE 2019-01-26 00:00:00 [facility] [[facility]] CMP W/EGFR 2018-11-18 00:00:00 [facility] [[facility]] CBC (INCLUDES DIFF/PLT) 2018-11-18 00:00:00 [facility] [[facility]] CULTURE, URINE, ROUTINE 2018-11-18 00:00:00 [facility] Eye examination<sup>1</sup> 2017-11-19 05:00:00 Balbina Hahn Hysterectomy 2017-06-24 06:00:00 [facility] Eye examination<sup>2</sup> 2016-11-16 05:00:00 Balbina Hahn History of Arthrotomy Of Knee With Open Meniscus Repair [facility] History of Inguinal Hernia Repair [facility] Arthroscopy of knee with meniscus repair [facility] Cataract surgery [facility] n Hernia repair [facility] Arthroscopy of knee with meniscus repair [facility] Cataract surgery [facility] n Hernia repair [facility] Diabetic retinal eye exam<sup>2</sup> [facility] Plan of Care Planned Activity Planned Date Details Comments Source Future Scheduled Test 2020-02-20 00:00:00 INFLUENZA VACCINE [code = INFLUENZA VACCINE] [facility] Diagnostic Test Pending 2019-01-26 00:00:00 [[facility]] CULTURE, U RINE, ROUTINE [code = [[facility]] CULTURE, URINE, ROUTINE] [facility] Future Scheduled Test 2013-02-04 00:00:00 Hemoglobin A1c henri surement (procedure) [code = 27853811] [facility] 1999-08-23 00:00:00 MEDICARE ANNUAL WE LLNESS (YEAR 2 or FIRST YEAR if no IPPE) [code = MEDICARE ANNUAL WELLNESS (YEAR 2 or FIRST YEAR if no IPPE)] [facility] r Future Scheduled Test 1983 00:00:00 SHINGLES VACCINES (#1) [code = SHINGLES VACCINES (#1)] [facility] Future Scheduled Test 1943 00:00:00 DIABETIC EYE EXAM [code = DIABETIC EYE EXAM] [facility] Future Scheduled Test 1943 00:00:00 Diabetic foot exam ination (regime/therapy) [code = 396380629] [facility] Future Scheduled Test 1943 00:00:00 Urine screening fo r protein (procedure) [code = 590225241] [facility] Future Scheduled Test 1943 00:00:00 DIABETIC FOOT EXAM [code = DIABETIC FOOT EXAM] [facility] Future Scheduled Test 1933 00:00:00 DIABETES: RETINAL EYE EXAM [code = DIABETES: RETINAL EYE EXAM] [facility] Encounters Start Date/Time End Date/Time Encounter Type Admission Type Attendi [facility] Care Department Encounter ID Source 2020-05-05 12:30:00 2020-05-05 12:30:00 Appointment; NELIDA SHERMAN PNELIDA GARCIA PRadha [facility] [id number] [facility] 2020-05-03 14:37:27 2020-05-04 23:59:59 Outpatient MH[facility] MH[facility] [id number] 2020-04-28 15:04:52 2020-04-29 23:59:59 Outpatient MHMG MHMG [id number] 2020-04-22 09:45:00 2020-04-22 09:45:00 Appointment; MIRTHA MOLINA M.D. MURPHY, THOMAS, M.D. [facility] [id number] [facility] 2020-04-22 09:00:00 2020-04-22 09:00:00 Appointment; MIRTHA MOLINA M.D. MURPHY, THOMAS, M.D. [facility] [id number] [facility] 2020-04-21 00:00:00 2020-04-21 00:00:00 Outpatient DAYANA DOMINGUEZ MDA MDA [id number] MD Rios 2020-04-14 11:00:00 2020-04-14 11:00:00 Appointment; MENA WINKLER M.D. JAYSWAL, MALAY, M.D. [facility] [id number] [facility] 2020-03-29 10:13:43 2020-03-30 23:59:59 Outpatient MHMG MHMG [id number] 2020-03-29 10:13:14 2020-03-30 23:59:59 Outpatient MHMG MHMG [id number] 2020-02-09 08:06:37 2020-02-10 23:59:59 Outpatient MHMG MHMG [id number] 2020-01-19 11:07:53 2020-01-19 17:02:52 Outpatient GUY TEDDYYousuf DAYANA EL MDA MDA [id number] MD Rios 2019-12-22 10:40:00 2019-12-22 23:59:59 Outpatient Em Hansen MHMG MHMG [id number] 2019-12-22 10:40:00 2019-12-22 10:40:00 Outpatient Em Hansen MHMG MHMG [id number] 2019-12-15 14:10:47 2019-12-16 23:59:59 Outpatient MHMG MHMG [id number] 2019-12-04 15:15:00 2019-12-04 15:15:00 Appointment; MIRTHA MOLINA M.D. MURPHY, THOMAS, M.D. [facility] [id number] [facility] 2019-10-05 11:08:50 2019-10-06 23:59:59 Outpatient MHMG MHMG [id number] 2019-09-30 09:30:00 2019-09-30 09:30:00 Appointment; MIRTHA MOLINA M.D. MURPHY, THOMAS, M.D. [facility] [id number] [facility] 2019-09-23 00:00:00 2019-09-24 00:00:00 Outpatient AI ROSALIO [facility] 064 [id number] [facility] 2019-09-11 11:15:00 2019-09-11 11:15:00 Appointment; TERI YUSUF P.A. CRUZ, LETICIA, P.A. [facility], [address] [id number] [facility] 2019-09-10 11:15:00 2019-09-10 11:15:00 Appointment; TERI YUSUF P.A. CRUZ, LETICIA, P.A. [facility] [id number] [facility] 2019-09-09 16:00:00 2019-09-09 16:00:00 Appointment; TERI YUSUF P.A. CRUZ, LETICIA, P.A. [facility] [id number] [facility] 2019-09-07 11:26:00 2019-09-07 14:00:00 Departed Emergency Room [address] [facility] [id number] [facility] 2019-09-03 09:00:00 2019-09-03 09:00:00 Appointment; NELIDA SHERMAN P.A. CAMPOS, BERTHA, P.A. [facility], [address] [id number] [facility] 2019-08-27 10:25:00 2019-08-28 23:59:59 Outpatient MHMG MHMG [id number] 2019-08-28 13:30:00 2019-08-28 13:30:00 Appointment; PA ROA M.D. MOHEYUDDIN, AMINA, M.D. [facility] [id number] [facility] 2019-08-19 11:36:00 2019-08-26 11:27:00 Discharged Inpatient [address] [facility] [id number] [facility] 2019-08-17 15:01:29 2019-08-18 23:59:59 Outpatient MHMG MHMG [id number] 2019-08-14 12:16:56 2019-08-15 23:59:59 Outpatient MHMG MHMG [id number] 2019-08-14 12:12:07 2019-08-15 23:59:59 Outpatient MHMG MHMG [id number] 2019-08-14 11:43:57 2019-08-15 23:59:59 Outpatient MHMG MHMG [id number] 2019-08-03 08:27:42 2019-08-04 23:59:59 Outpatient MHMG MHMG [id number] 2019-07-08 07:58:21 2019-07-09 23:59:59 Outpatient MHMG MHMG [id number] 2019-06-25 10:40:00 2019-06-25 23:59:59 Outpatient Em Hansen MHMG MHMG [id number] 2019-05-25 12:04:13 2019-05-26 23:59:59 Outpatient MHMG MHMG [id number] 2019-05-25 12:03:47 2019-05-26 23:59:59 Outpatient MHMG MHMG [id number] 2019-05-11 08:07:43 2019-05-12 23:59:59 Outpatient MHMG MHMG [id number] 2019-05-04 08:43:47 2019-05-05 23:59:59 Outpatient MHMG MHMG [id number] 2019-01-30 13:23:45 2019-01-31 23:59:59 Outpatient MHMG MHMG [id number] 2019-01-26 14:45:00 2019-01-26 14:45:00 Appointment; NELIDA SHERMAN P.A. CAMPOS, BERTHA, P.A. [facility], [address] [id number] [facility] 2019-01-06 10:40:00 2019-01-06 23:59:59 Outpatient Jade Em M MHMG MHMG [id number] 2018-11-18 12:45:00 2018-11-18 12:45:00 Appointment; NELIDA SHERMAN P.A. CAMPOS, BERTHA, P.A. [facility] [address] [id number] [facility] 2018-10-07 13:54:00 2018-10-08 23:59:59 Outpatient MHMG MHMG [id number] 2018-09-22 10:04:00 2018-09-23 23:59:59 Outpatient MHMG MHMG [id number] 2018-09-16 11:38:00 2018-09-16 13:31:00 Departed Emergency Room [address] [facility] [id number] [facility] 2018-08-29 15:43:00 2018-08-30 23:59:59 Outpatient MHMG MHMG [id number] 2018-08-06 08:46:00 2018-08-07 23:59:59 Outpatient MHMG MHMG [id number] 2018-07-09 10:12:00 2018-07-10 23:59:59 Outpatient MHMG MHMG [id number] 2018-07-08 10:40:00 2018-07-08 23:59:59 Outpatient Em Hansen MHMG MHMG [id number] 2018-07-02 13:00:00 2018-07-02 13:00:00 Appointment; TERI YUSUF P.A. CRUZ, LETICIA, P.A. [facility] [id number] [facility] 2018-06-13 09:27:00 2018-06-14 23:59:59 Outpatient MHMG MHMG [id number] 2018-06-03 15:37:00 2018-06-04 23:59:59 Outpatient MHMG MHMG [id number] 2018-05-25 13:39:00 2018-05-25 18:53:00 Departed Emergency Room [address] [facility] [id number] [facility] 2018-05-23 09:40:00 2018-05-23 09:40:00 Outpatient Em Hansen MHMG MHMG [id number] 2018-04-09 09:20:00 2018-04-09 23:59:59 Outpatient Em Hansen MHMG MHMG [id number] 2018-03-13 10:40:00 2018-03-13 10:40:00 Outpatient Em Hansen MHMG MHMG [id number] 2018-03-07 09:16:00 2018-03-08 23:59:59 Outpatient MHMG MHMG [id number] 2017-12-31 20:55:00 2017-12-31 22:00:[address] [facility] [id number] [facility] 2017-12-18 08:34:00 2017-12-19 23:59:59 Outpatient MHMG MHMG [id number] 2017-12-09 08:31:00 2017-12-10 23:59:59 Outpatient MHMG MHMG [id number] 2017-12-09 09:20:00 2017-12-09 23:59:59 Outpatient Em Hansen MHMG MHMG [id number] 2017-11-20 13:51:00 2017-11-21 23:59:59 Outpatient MHMG MHMG [id number] 2017-11-19 14:15:00 2017-11-19 14:15:00 Appointment; NELIDA SHERMAN P.A. CAMPOS, BERTHA, P.A. [facility] [address] [id number] [facility] 2017-11-12 10:16:00 2017-11-13 23:59:59 Outpatient MHMG MHMG [id number] 2017-11-08 12:24:00 2017-11-09 23:59:59 Outpatient MHMG MHMG [id number] 2017-10-28 09:31:00 2017-10-29 23:59:59 Outpatient MHMG MHMG [id number] 2017-10-28 09:31:00 2017-10-29 23:59:59 Outpatient MHMG MHMG [id number] 2017-10-18 11:30:00 2017-10-18 11:30:00 Appointment; RACHEL PENNY M.D. SATTAR, BEENA, M.D. [facility] [id number] [facility] 2017-09-09 09:26:00 2017-09-10 23:59:59 Outpatient MHMG MHMG [id number] 2017-08-05 10:40:00 2017-08-05 23:59:59 Outpatient Em Hansen M MHMG MHMG [id number] 2017-08-05 10:40:00 2017-08-05 23:59:59 Outpatient ShiEm jacobson MHMG MHMG [id number] 2017-08-05 10:40:00 2017-08-05 23:59:59 Outpatient Em Hansen MHMG MHMG [id number] 2017-07-26 09:06:00 2017-07-27 23:59:59 Outpatient MHMG MHMG [id number] 2017-07-09 10:40:00 2017-07-10 23:59:59 Outpatient MHMG MHMG [id number] 2017-04-29 10:30:00 2017-04-29 10:30:00 Appointment; NANCY TAPIA M.D. BORTOLOTTI, JULIE, M.D. [facility] UTP [id number] [facility] 2017-04-02 14:45:00 2017-04-02 14:45:00 Appointment; NELIDA SHERMAN P.A. CAMPOS, BERTHA, P.A. [facility] UTP [id number] [facility] 2017-03-07 13:15:00 2017-03-07 13:15:00 Appointment; TERI YUSUF P.A. CRUZ, LETICIA, P.A. UTP UTP [id number] [facility] 2017-02-01 09:30:00 2017-02-01 09:30:00 Appointment; JACKSON MARTINEZ M.D. VAZQUEZ, NOEMI, M.D. [facility] UTP [id number] [facility] 2017-01-09 11:00:00 2017-01-09 23:59:00 Outpatient Fiona Molina OIB OIB [id number] 2017-01-09 10:15:00 2017-01-09 10:15:00 Appointment; NELIDA SHERMAN P.A. CAMPOS, BERTHA, P.A. UTP UTP [id number] [facility] 2017-01-05 09:30:00 2017-01-05 09:30:00 Appointment; MODESTO CURRAN NP HOANG, CHRISTINA, NP UTP UTP [id number] [facility] 2016-12-28 12:45:00 2016-12-28 12:45:00 Appointment; NELIDA SHERMAN P.A. CAMPOS, BERTHA, P.A. RADHA UTP [id number] [facility] 2016-12-25 10:00:00 2016-12-25 10:00:00 Appointment; NELIDA SHERMAN P.A. CAMPOS, BERTHA, P.A. UTP UTP [id number] [facility] 2016-11-02 12:30:00 2016-11-02 12:30:00 Appointment; EB MCCLELLAND N P BECK, SHERI, NP UTP [facility] [address] [id number] [facility] 2016-09-28 13:15:00 2016-09-28 13:15:00 Appointment; NELIDA SHERMAN P.A. CAMPOS, BERTHA, P.A. RADHA [facility] [address] [id number] [facility] 2016-08-29 10:45:00 2016-08-29 10:45:00 Appointment; TERI YUSUF P.A. CRUZ, LETICIA, P.A. UTP UTP [id number] [facility] 2016-06-19 10:30:00 2016-06-19 10:30:00 Appointment; NANCY TAPIA M.D. BORTOLOTTI, JULIE, M.D. [facility] UTP [id number] [facility] 2016-06-07 11:00:00 2016-06-07 11:00:00 Appointment; NANCY TAPIA M.D. BORTOLOTTI, JULIE, M.D. [facility] UTP [id number] [facility] 2016-05-10 12:45:00 2016-05-10 23:59:00 Outpatient Fiona Hansen OIH MHOIH [id number] 2016-04-25 11:15:00 2016-04-25 11:15:00 Appointment; NANCY TAPIA M.D. BORTOLOTTI, JULIE, M.D. [facility] UTP [id number] [facility] 2016-04-16 12:31:00 2016-04-16 23:59:00 Outpatient MoellerJair bernsteinmerrittjacqueline MHSE MHSE [id number] 2016-04-07 05:45:00 2016-04-09 17:37:00 Outpatient Aviva Rasmussen MHSE MHSE [id number] 2016-04-06 13:16:00 2016-04-06 21:29:00 Outpatient Martín Angeles MHSE MHSE [id number] 2016-03-16 11:22:00 2016-03-16 23:59:00 Outpatient Jair Moeller MHHOIP HOIP [id number] 2015-11-25 16:00:00 2015-11-25 16:00:00 Appointment; EDDIE SUN M.D. WILLISTON, HUBERT, M.D. [facility] UTP [id number] [facility] 2015-10-01 08:00:00 2015-10-01 12:39:00 Outpatient Jaxson Buchanan MHSE MHSE [id number] 2015-09-22 08:22:00 2015-09-22 14:22:00 Outpatient Ritesh Richards MHSE MHSE [id number] 2015-05-02 11:22:00 2015-05-02 15:28:00 Outpatient Debby Amato MHSE MHSE [id number] 2015-02-27 01:29:00 2015-03-01 15:30:00 Outpatient Alejandro Herzog MHSE MHSE [id number] 2014-10-10 11:03:00 2014-10-10 14:05:00 Outpatient Nikki Cortes Robin moseh [facility] [id number] 2014-08-22 17:18:00 2014-08-22 21:05:00 Outpatient Jaxson Buchanan [facility] [id number] 2014-05-16 11:36:00 2014-05-16 17:31:00 Outpatient Milton Owens [facility] [id number] 2013-06-22 17:32:31 2013-06-22 17:32:31 Outpatient [facility] [id number] Results Test Description Test Time Test Comments Results Result Comments Source R 1 VEW - HOPD 2020-05-10 00:24:00 [facility] : 1935 Sex: F [place] [address] Patient Name: GEOVANI ANDERSEN MR #: [id number] : 1935 Age/Sex: 84/F Req #: [id number] [facility] Physician: Ordered by: ALESSIA BARAKAT MD Report #: [id number] Location: [facility] Room/Bed: Procedure: [id number] HOPD/CXR 1 [facility] Exam Date: 05/10/20 Exam Time: 2351 REPORT STATUS: Signed EXAMINATION: CXR 1 [facility] INDICATION: AFib, heart failure COMPARISON: Chest x-ray [...] Exam:->liver fibrosis, fatty liver, [facility] 1935 Sex: FFINAL REPORT [...] Jad Novoa MDReport Verified Date/Time: 05/09/2020 09:50:07 [facility] [Q] LIPID PANEL WITH REFLEX TO DIRECT LDL 2020-04-27 09:32:0 0 Test Item CHOLESTEROL, TOTAL; Normal (test code = 2093-3) 119 mg/dl <200 N HDL CHOLESTEROL; Below Low Threshold (test code = 2085-9) 41 mg/dl > OR = 50 TRIGLYCERIDES; Normal (test code = 2571-8) 129 mg/dl <150 N LDL-CHOLESTEROL; Normal (test code = 94252-7) 57 {MG/DL VJ} N Reference range: <100 Desirable range <100 mg/dL for primary prevention; <70 mg/dL for patients with CHD or diabetic patients with > or = 2 CHD risk factors. LDL-C is now calculated using the Regina calculation, which is a validated novel method providing better accuracy than the Friedewald equation in the estimation of LDL-C. Bob SS et al. RUKHSANA. 2013;310(19): 7279-0918 (http ://education.[employer]/faq/FRY289) CHOL/HDLC RATIO (test code = CHOL/HDLC RATIO) 2.9 {CALC} <5.0 N NON HDL CHOLESTEROL (test code = NON HDL CHOLESTEROL) 78 {MG/DL CA L} <130 N For patients with diabetes plus 1 major ASCVD risk factor, treating to a non-HDL-C goal of <100 mg/dL (LDL-C of <70 mg/dL) is considered a therapeutic option. [facility][QL] CMP [id number] 09:32:00* Test Item Value Reference Range Interpretation [...] is approximately 13% higher for peopleidentified as -Macedonian. eGFR NON-AFR. SRI LANKAN (test code = eGFR NON-AFR. SRI LANKAN) 38 {ML/MIN/1.7} > OR = 60 eGFR [...] N BILIRUBIN, TOTAL; Normal (test code = 58334-6) 0.5 mg/dl 0.2-1.2 N ALKALINE PHOSPHATASE (test code = ALKALINE PHOSPHATASE) 151 u/l 37-153 N AST; Normal (test code = 1916-6) 16 u/l 10-35 N ALT; Normal (test code = 1742-6) 13 u/l 6-29 N [facility][QL] CBC (INCLUDES DIFF/PLT)2020-04-27 09:32:00* Test Item Value Reference Range Interpretation Comments WHITE BLOOD CELL COUNT (test code = WHITE BLOOD CELL COUNT) 5.0 {Thousand/u} 3.8-10.8 N RED BLOOD CELL COUNT (test code = RED BLOOD CELL COUNT) 4.02 {Million/uL} 3.80-5.10 N HEMOGLOBIN; Normal (test code = 37781-3) 12.2 g/dl 11.7-15.5 N HEMATOCRIT; Normal (test code = 4544-3) 36.8 % 35.0-45.0 N MCV; Normal (test code = 787-2) 91.5 fL 80.0-100.0 N MCHC; Normal (test code = 85715-6) 33.2 g/dl 32.0-36.0 N RDW; Normal (test code = 788-0) 13.8 % 11.0-15.0 N PLATELET COUNT; Normal (test code = 777-3) 301 {Thousand/u} 140-400 N MPV; Normal (test code = 62798-4) 10.1 fL 7.5-12.5 N ABSOLUTE NEUTROPHILS (test code = ABSOLUTE NEUTROPHILS) 3525 {cells/uL} 3898-4199 N ABSOLUTE LYMPHOCYTES (test code = ABSOLUTE [...] % N MONOCYTES; Normal (test code = 18779-3) 6.7 % N EOSINOPHILS; Normal (test code = 67062-5) 1.8 % N BASOPHILS; Normal (test code = 25348-1) 0.6 % N [facility][QL] TSH, 3RD GENERATION W/REFLEX TO [id number] 09:32:00* Test Item Value Reference Range Interpretation Comments TSH, 3RD GENERATION W/REFLEX TO FT4 (jeny t code = TSH, 3RD GENERATION W/REFLEX TO FT4) 3.12 {MIU/L} 0.40-4.50 N [facility][Q] HEMOGLOBIN A1C WITH [id number] 09:32:00* Test Item Value Reference Range Interpretation Comments HEMOGLOBIN A1c; Above High Threshold (test code = 4548-4) 7.5 {% of total} <5.7 For someone without known diabetes, a he moglobin V4twwxds of 6.5% or greater indicates that they [...] MEAN PLASMA GLUCOSE) 190 {MG/DL C AL} [facility] [id number] 13:51:0097[facility] CHEM [id number] 13:51:0019[facility] M[facility] ChinaannCHEM [id number] 13:51:000.95 [facility] [id number] 13:51:0054[facility] PANEL 2019-12-16 13:51:0063[facility]annCHEM DGRHU8400-11-44 13:51:0020[facility]annCHEM FKKBW6923-73-19 13:51:51654Adoxuuxb HermannCHEM MIPNI6524-66-96 13:51:003.3[facility]annCHEM IXECY0280-27-50 13:51:93916Fofwveqn HermannCHEM VKLIB1435-70-85 13:51:0027[facility]annCHEM DOTQS0391-93-05 13:51:009.5 [facility]annCHE[facility] ZIWYE9190-82-36 13:51:005.9[facility]annCHEM PANEL 2019-12-16 13:51:003.5[facility]annCHEM SZLLY2467-72-45 13:51:002.4[facility]annCHEM DXRMJ8743-58-63 13:51:001.5[facility]annCHEM RFHSR5693-77-49 13:51:000.7[facility]annCHEM WCFZW4827-03-99 13:51:92867Fibuvnwu HermannCHEM PMYNE6557-35-40 13:51:0027[facility]annCHEM PHKVZ6925-10-53 13:51:0018 [facility]annCHEM RSUYD2948-58-81 13:51:0055[facility]annHEMATOLOGY 2019-12-16 13:51:007.4[facility] DmvcchqHZCFHQBPSQ4714-37-24 13:51:004.14[facility] GnduxarTAXIRWEUQV7264-40-00 13:51:0012.8[facility] YaxdxrtDXEPGRSDQF1754-60-30 13:51:0038.1[facility] SxmhivwDHYPMABAZG3348-72-72 13:51:0092.0[facility] IFKAGGBPCW5299-52-21 13:51:00* Test Item Value Reference Range Interpretation Comments MCH (test code = MCH) 30.9 pg 27.0-33.0 [facility] HldyclsGZZTCVIKFU1179-49-21 13:51:0033.6[facility] HermannHEMATOLOGY 2019-12-16 13:51:0013.9[facility] KboqfjdDFUQJLPBDG8064-17-25 13:51:44645Oicenawz MqjcjogIUTGOWGBKT4121-19-58 13:51:009.9[facility] ItdzjvtPSDHWOJFUW5998-42-50 13:51:802760Sagawztn GmolavjNTXUGEYZWP1190-49-33 13:51:782011Zekjahvb [place] GBWXBBDTRC6022-09-84 13:51:20488Xdwoqxya YslskxdDUGKBDBUNR6660-94-17 13:51:80609 [facility] GdzdywvUOVVDGWWMF9755-99-30 13:51:0030[facility]annHEMATOLOGY 2019-12-16 13:51:0076.4[facility] EdkrowbPOPCBYBCUY2390-59-18 13:51:0014.1[facility] AvozptnNUGQKTYHZV5252-36-42 13:51:007.5[facility] EjylchyHELICCEKPM1102-92-81 13:51:001.6[facility] TtvhbhcUNVFERVKRU7576-03-35 13:51:000.4[facility] [place] TAXLAL0655-71-10 13:51:88014Odjfxrue TphcnhgLVJLEL7836-89-63 13:51:0046[facility] AntibobQCRRGM3414-66-96 13:51:86594Brhukqpn ToxicfcJBQVSE0088-17-42 13:51:0054 [facility] YabslfrODNRTY8808-05-43 13:51:002.[facility] WxvakvvEVUBTS1516-22-01 13:51:0075[facility] HermannSPECIAL VWYCIPZVU6080-72-24 13:51:006.7Mem[facility] HermannPOC gegqrgj2952-82-89 12:01:17* Test Item Value Reference Range Interpretation Comments POC glucose (test code = 40931-5) 137 mg/dL 65-99 H Education Adviser Name: Clayton Velázquez ID: [id number]: [facility] Notified communication studies professor Interpretation (test code = 27729-2) Abnormal [place] MethodistHemoglobin E9a7470-44-77 08:35:11* Test Item Value Reference Range Interpretation Comments Hemoglobin A1C (test code = 22609-2) 6.5 % 4-5.6 H HbA1c cutoffs for diagnosing diabetes:4.0% - 5.6% = normal5.7% - 6.4% = increased risk for diabetes (prediabetes)9>=6.5% = sknixrar0Deizb for glycemic control (ADA 2016)< 7.0% Target for non adults with diabetes. More or less stringent targets may be appropriate for individual patients. <7.5% Target for Children and adolescents with type 1 diabetes. Lab Interpretation (test code = 60827-9) Abnormal [place] [facility] natriuretic ppbfbii9883-05-84 07:27:16* Test Item Value Reference Range Interpretation Comments BNP (test code = 90149-2) 146 pg/mL 0-100 H Lab Interpretation (test code = 03189-7) Abnormal [place] MethodistBasic metabolic yjnwk7375-68-39 06:28:07* Test Item Value Reference Range Interpretation Comments Sodium (test code = 2951-2) 144 135- 148 mEq/L Potassium (test code = 2823-3) 4.2 3.5- 5.0 mEq/L Chloride (test code = 2075-0) 110 98- 112 mEq/L CO2 (test code = 8-9) 23 24- 31 mEq/L L Anion gap (test code = 44013-4) 11@ANIO 7- 15 mEq/L BUN (test code = 3094-0) 33 mg/dL 8-23 H Creatinine (test code = 2160-0) 1.42 mg/dL 0.5-0.9 H Glucose (test code = 2345-7) 130 mg/dL 65-99 H Calcium (test code = 68027-3) 9.9 mg/dL 8.8-10.2 Lab Interpretation (test code = 98745-7) Abnormal [place] MethodistEstimated DNY0775-81-72 06:28:07* Test Item Value Reference Range Interpretation Comments Estimated GFR (test code = 5488) 33 mL/min/1.73 m2 A Catergory Units InterpretationG1 >=90 Normal or highG2 60-89 Mildly wicvkckvtH1w 45-59 Mildly to moderately rldogfpweX0b 30-44 Moderately to severely decreasedG4 15-29 Severely decreasedG5 <15 Kidney failureThe eGFR was calculated using the Chronic Kidney Disease Epidemiology Collaboration (CKD-EPI) equation. Interpretation is based on recommendations of the National Kidney Foundation-Kidney Disease Outcomes Quality Initiative (NKF-KDOQI) published in 2014. Lab Interpretation (test code = 75970-6) Abnormal [place] MethodistCBC with platelet and ymprvfdgpjfl7676-46-66 05:56:33* Test Item Value Reference Range Interpretation Comments WBC (test code = 41209-0) 5.20 4.50- 11.00 k/uL RBC (test code = 35859-3) 3.55 m/uL 4.2-5.5 L HGB (test code = 718-7) 10.8 g/dL 12-16 L HCT (test code = 4544-3) 34.9 % 37-47 L MCV (test code = 787-2) 98.3 fL 82-100 MCH (test code = 785-6) 30.4 pg 27-34 MCHC (test code = 786-4) 30.9 g/dL 31-37 L RDW - SD (test code = 41478-5) 54.2 fL 37-55 MPV (test code = 78798-6) 10.1 fL 8.8-13.2 Platelet count (test code = 96259-8) 234 150- 400 k/uL Nucleated RBC (test code = 05554-9) 0.00 /100 WBC Neutrophils (test code = 44471-0) 70.1 % 39-69 H Lymphocytes (test code = 45275-1) 16.9 % 25-45 L Monocytes (test code = 46547-7) 8.5 % 0-10 Eosinophils (test code = 95427-2) 2.9 % 0-5 Basophils (test code = 89268-4) 0.8 % 0-1 Immature granulocytes (test code = 39261-7) 0.8 % 0-1 "Immature granulocytes" (promyelocytes, myelocytes, metamyelocytes) Lab Interpretation (test code = 67389-2) Abnormal [place] MethodistUrinalysis screen and microscopy, with reflex to culture 2019-09-24 02:11:49* Test Item Value Reference Range Interpretation Comments Specimen site (test code = 3121952) Clean catch Color, UA (test code = 5778-6) Yellow Appearance, UA (test code = 5767-9) Hazy Specific gravity, UA (test code = 5811-5) 1.014 1.001-1.035 pH, UA (test code = 5803-2) 5.0 5.0-8.5 Protein, UA (test code = 55379-2) Negative Negative Glucose, UA (test code = 47690-9) Negative Negative Ketones, UA (test code = 2514-8) Negative Negative Bilirubin, UA (test code = 5770-3) Negative Negative Blood, UA (test code = 5794-3) Negative Negative Nitrite, UA (test code = 5802-4) Negative Negative Urobilinogen, UA (test code = 91493-2) <2.0 <2.0 Leukocyte esterase, UA (test code = 5799-2) Negative Negative Epithelial cells, UA (test code = 5787-7) 5 /HPF WBC, UA (test code = 5821-4) 3 0- 4 /HPF RBC, UA (test code = 93013-1) 1 0- 5 /HPF Bacteria, UA (test code = 66240-0) None seen None seen Yeast, UA (test code = 88558-6) None seen Yeast with pseudohyphae, UA (test code = 21027-3) None seen Hyaline casts, UA (test code = 5796-8) 5 /LPF Al VelizUrine szhpqrr1619-26-61 02:02:12* Test Item Value Reference Range Interpretation Comments Urine culture (test code = 2148379) SEE COMMENT Bacteriuria screen negative. [facility] Lum[facility] Wo Hrrskpvw8080-45-59 19:12:59Hm Interface, Radiology Results 09/23/2019 7:16 PM [...] in the lumbar spine most prominent at L4-5.[facility]-3SE6599MVQYpjykvu Methodist Comprehensive metabolic evcih2671-24-97 14:30:45* Test Item Value Reference Range Interpretation Comments Sodium (test code = 2951-2) 142 135- 148 mEq/L Potassium (test code = 2823-3) 4.8 3.5- 5.0 mEq/L Chloride (test code = 2075-0) 107 98- 112 mEq/L CO2 (test code = 2027-9) 24 24- 31 mEq/L Anion gap (test code = 89889-1) 11@ANIO 7- 15 mEq/L BUN (test code = 3094-0) 35 mg/dL 8-23 H Creatinine (test code = 2160-0) 1.51 mg/dL 0.5-0.9 H Glucose (test code = 2345-7) 112 mg/dL 65-99 H Calcium (test code = 17371-7) 10.1 mg/dL 8.8-10.2 Protein (test code = 2885-2) 6.9 g/dL 6.3-8.3 Faeiudi5621.6-7.0 g/dL1 tizt4861.4-7.6 g/dL7 months-3xpsg751.1-7.3 g/dL1-2 bydoq238.6-7.5 g/dL>3 .0-8.0 g/kR69-0932111.3-8.3 g/dL Albumin (test code = 1751-7) 3.1 g/dL 3.5-5 L A/G ratio (test code = 1759-0) 0.8 0.7-3.8 Alkaline phosphatase (test code = 6768-6) 141 U/L 35-104 H AST (test code = 1920-8) 25 U/L 10-35 ALT (test code = 1742-6) 17 U/L 5-50 Total bilirubin (test code = 1975-2) 0.6 mg/dL 0-1.2 Lab Interpretation (test code = 73409-2) Abnormal [place] [facility] [place] GUIDANCE VASC IGPAHI8206-43-99 09:18:00 Name: GEOVANI ANDERSEN [facility] : 1935 Age/S: 84 / F [address] [facility] Unit #: [id number] Loc: [place] [address] Phys: Nancy Turner MD Acct: [id number] Di s Date: Status: REG RCR PHONE #: [phone] Exam Date: 09/14/2019 1406 FAX #: Reason: / EXAMS: CPT CODE: [id number] [place] GUIDANCE VAS C ACCESS 05527 Fluoro Time: DAP (Gy m2 ): Air [...] Fernando Rowan M.D. CC: Natalia Tapia MD; Nc Gareth vivas MD Technologist: PERCY DOMINGUEZ PROGRAM MANAGER RN Trnscb Date/Time: 09/15/2019 (917) [place].VTL Orig Print D/T: S: 09/15/2019 (89) PAGE 1 S igned Report - SP FLUORO GUID CTRL ACC DEV 2019-09-15 09:18:00 Name: GEOVANI ANDERSEN [facility] SP : 1935 Age/S: 84 / F [address] [facility]: [id number] Loc: [place] [address] Phys: Gareth Turner MD Acct: [id number] Dis Date: Status: REG RCR PHONE #: [phone] Exam Date: 09/14/2019 1401 FAX #: [phone] Reason: / EXAMS: CPT CODE: [id number] SP FLUORO GUID CTRL ACC DEV 40257 Fluoro Time: 7 DAP (Gy m2): 0.95 Air Kerma (mGy): 3 REASON FOR EXAM:UTI Location: [facility] PROCEDURE: Ultrasound and fluoroscopic guided peripherally inserted [...] Fernando Rowan M.D. CC: Natalia Tapia MD; Nc Gareth vivas MD Technologist: PERCY DOMINGUEZ [facility] Trnscb Date/Time: 09/15/2019 (917) [place].VTL Orig Print D/T: S: 09/15/2019 (920) PAGE 1 S igned Report - XR CHEST 1 Y0108-07-93 14:56:00 FAX: Natalia Vergara [phone] [place]: St: REG FAX: Gareth Samuels [phone] Name: GEOVANI ANDERSEN [facility] : 1935 Age/S: 84/F [address] [facility] Unit #: [id number] Loc: [place] [address] Phys: Fernando Rowan MD Acct: [id number] Dis Date: Status: REG RCR PHONE #: [phone] Exam Date: 09/14/2019 3261 FAX #: [phone] Reason: POST LINE PLACEMENT EXAMS: CPT CODE: [id number] XR CHEST 1 V 57032 REASON FOR EXAM: POST LINE PLACEMENT Exam [...] subclavian vein and SVC. Location: [facility] at 5346 Reported and signed by: Aguila bermeo MD CC: Natalia Tapia MD; Gareth Turner MD Techn ologist: LISE ARREOLA Trnmird Date/Francis e/By: 09/14/2019 (9910) : By: [email or web address] Orig Print D/T: S: 09/14/2019 (7356) PAGE 1 Signed Report [[facility]] URINALYSIS, GYGHRWEE8130-77-10 13:53:00* Test Item Value Reference Range Interpretation Comments COLOR; Normal (test code = 5778-6) YELLOW YELLOW N APPEARANCE (test code = APPEARANCE) CLEAR CLEAR N SPECIFIC GRAVITY; Normal (test code = 2965-2) 1.019 1.001-1. 035 N PH; Normal (test code = 2756-5) < OR = 5.0 5.0-8.0 N GLUCOSE; Normal (test code = 1547-9) NEGATIVE NEGATIVE N BILIRUBIN; Normal (test code = 54520-7) NEGATIVE NEGATIVE N KETONES; Normal (test code = 00359-0) NEGATIVE NEGATIVE N OCCULT BLOOD; Normal (test code = 27688-7) NEGATIVE NEGATIVE N PROTEIN; Abnormal (test code = 92712-7) TRACE NEGATIVE A NITRITE; Normal (test code = 73465-8) NEGATIVE NEGATIVE N LEUKOCYTE ESTERASE (test code = LEUKOCYTE ESTERASE) NEGATIVE NE GATIVE N WBC; Normal (test code = 6690-2) 0-5 < OR = 5 N RBC; Normal (test code = 789-8) 0-2 < OR = 2 N SQUAMOUS EPITHELIAL CELLS (test code = 44578-6) 0-5 < OR = 5 BACTERIA; Normal (test code = 630-4) NONE SEEN NONE SEEN N HYALINE CAST; Normal (test code = 70994-3) NONE SEEN NONE SEEN N [facility]] CULTURE, URINE, LRDLOTP2341-22-45 13:53:00* Test Item Value Reference Range Interpretation Comments CULTURE (test code = CULTURE) See Comment CULTURE, URINE, ROUTINE Micro Number: [id number] Test Status: Final Specimen Source: URINE Specimen Quality: Adequate Result: Single organism less than 10,000 CFU/mL isolated. These organisms, commonly found on external and internal genitalia, are considered colonizers. No further testing performed. [facility] ZUKXTRM-IGSL8410-34-17 12:41:00 [place] [address] Patient Name: GEOVANI ANDERSEN MR #: [id number] : 1935 Age/Sex: 83/F Req #: [id number] Adm Physician: Ordered by: AJ MADRID MD Report #: [id number] Location: [facility] Room/Bed: Procedure: [id number] HOPD/CT LUMBAR SPINE WITHOUT-HOPD Exam Date: 09/07/19 [...] 09/07/19 1303 COPY TO: AJ MADRID MD [[facility]] [facility] W/YEHZ9428-05-45 10:06:00* Test Item Value Reference Range Interpretation Comments GLUCOSE; Normal (test code = 1547-9) 112 mg/dl 65-139 N Non-fasting reference interval UREA NITROGEN (BUN) (test code = UREA NITROGEN (BUN)) 41 mg/dl 7-25 CREATININE (test code = CREATININE) 2.09 mg/dl 0.60-0.88 For patients >49 years of age, the reference limitfor Creatinine is approximately 13% higher for peopleidentified as -Macedonian. eGFR NON- (test code = eGFR NON-FERNANDO N SRI LANKAN) 21 {ML/MIN/1.7} > OR = 60 eGFR [...] N BILIRUBIN, TOTAL; Normal (test code = 42534-7) 0.5 mg/dl 0.2-1.2 N ALKALINE PHSPHATASE (test code = ALKALINE PHSPHATASE) 135 u/l 37-153 N AST; Normal (test code = 1916-6) 25 u/l 10-35 N ALT; Normal (test code = 1742-6) 17 u/l 6-29 N [facility]] CBC (INCLUDES DIFF/PLT)2019-09-03 10:06:00* Test Item Value Reference Range Interpretation Comments WHITE BLOOD CELL COUNT (test code = WHITE BLOOD CELL COUNT) 5.7 {Thousand/u} 3.8-10.8 N RED BLOOD CELL COUNT (test code = RED BLOOD CELL COUNT) 3.75 {Million/uL} 3.80-5.10 HEMAGLOBIN; Below Low Threshold (test code = 13556-0) 11.4 g/dl 11.7-15.5 HEMATOCRIT; Normal (test code = 4544-3) 35.0 % 35.0-45.0 N MCV; Normal (test code = 787-2) 93.3 fL 80.0-100.0 N MCHC; Normal (test code = 86691-9) 32.6 g/dl 32.0-36.0 N RDW; Normal (test code = 788-0) 13.4 % 11.0-15.0 N PLATELET COUNT; Normal (test code = 777-3) 393 {Thousand/u} 140-400 N MPV; Normal (test code = 98623-5) 10.1 fL 7.5-12.5 N ABSOLUTE NEUTROPHILS (test code = ABSOLUTE NEUTROPHILS) 4275 {cells/uL} 8044-3982 N ABSOLUTE LYMPHOCYTES (test code = ABSOLUTE [...] % N MONOCYTES; Normal (test code = 75412-8) 7.5 % N EOSINOPHILS; Normal (test code = 44991-0) 2.1 % N BASOPHILS; Normal (test code = 01489-5) 0.7 % N [facility][O] Urine Dipstick (In Office)2019-09-03 09:20:00 * Test Item Value Reference Range Interpretation Comments Glucose (test code = Glucose) Negative N LEUKOCYTES (test code = LEUKOCYTES) Negative N NITRITE; Normal (test code = 48948-4) Negative N UROBILINOGEN; Normal (test code = 81934-8) Negative N PROTEIN (test code = 14554-0) Trace pH (test code = pH) 5.0 N URINE BLOOD; Normal (test code = 83124-3) Negative N SPECIFIC GRAVITY (test code = 2965-2) 1.020 KETONES; Normal (test code = 12713-9) Negative N BILIRUBIN; Normal (test code = 79704-1) Negative N COLOR URINE; Normal (test code = 5778-6) Yellow N APPEARANCE; Normal (test code = 5767-9) Clear N [facility]] CULTURE, URINE, IKDHVAJ7990-16-15 00:00:00* Test Item Value Reference Range Interpretation Comments CULTURE (test code = CULTURE) See Comment A CULTURE, URINE, ROUTINE Micro Number: [id number] Test Status: Final Specimen Source: URINE Specimen Quality: Adequate Result: Greater than 100,000 CFU/mL of Pseudomonas aeruginosa Ps.aeruginosa INT FARZANA CEFEPIME S 2 CEFTAZIDIME S 4 CIPROFLOXACIN S <=0.25 GENTAMICIN S 2 IMIPENEM S 2 LEVOFLOXACIN S 1 PIP/TAZOBACTAM S 8 TOBRAMYCIN S <=1S=Susceptible I=Intermediate R=Resistant * = Not TestedNR = Not Reported NN = See Therapy Comments [facility] Uizvges0339-11-82 16:56:00* Test Item Value Reference Range Interpretation Comments Blood Culture (test code = 62285774) NO GROWTH AFTER 5 DAYS, FINAL REPORT [facility] Zmrnhjf1815-09-55 11:31:00* Test Item Value Reference Range Interpretation Comments Bedside Glucose (test code = 27331-4) 150 70-120 H Meter ID: [id number] [facility] 2019-08-26 09:11:00* Test Item Value Reference Range Interpretation Comments Blood Culture (test code = 35619216) NO GROWTH AFTER 72 HOURS [facility] Iffmxzz2346-16-35 08:03:00* Test Item Value Reference Range Interpretation Comments Bedside Glucose (test code = 56057-1) 115 70-120 Meter ID: [id number] [facility] 2019-08-26 06:09:00* Test Item Value Reference Range Interpretation Comments Sodium Level (test code = 2951-2) 138 136-145 [facility] Isimv4823-86-91 06:09:00* Test Item Value Reference Range Interpretation Comments Potassium Level (test code = 2823-3) 3.2 3.5-5.1 L [facility] Gltne3550-99-43 06:09:00* Test Item Value Reference Range Interpretation Comments Chloride Level (test code = 2075-0) 105 98-107 [facility] HospitalCarbon Dioxide Mpafo3175-70-98 06:09:00* Test Item Value Reference Range Interpretation Comments Carbon Dioxide Level (test code = 2028-9) 23 22-29 [facility] HospitalAnion Wwd1257-20-38 06:09:00* Test Item Value Reference Range Interpretation Comments Anion Gap (test code = 52054-8) 13.2 8-16 [facility] HospitalBlood Urea Zuxgqzlm2609-82-02 06:09:00* Test Item Value Reference Range Interpretation Comments Blood Urea Nitrogen (test code = 3094-0) 23 7-26 [facility] HospitalCreatinine2020-02-05 06:09:00* Test Item Value Reference Range Interpretation Comments Creatinine (test code = 2160-0) 1.13 0.57-1.11 H [facility] HospitalBUN/Creatinine Qmmot6464-86-91 06:09:00* Test Item Value Reference Range Interpretation Comments BUN/Creatinine Ratio (test code = 3097-3) 20 6-25 [facility] HospitalEstimat Glomerular Filtration Rate 2019-08-26 06:09:00* Test Item Value Reference Range Interpretation Comments Estimat Glomerular Filtration Rate (test code = 550222156) 46 >60 L Ranges were taken from the National Kidney Disease Education Program and the [facility] Foundation literature.Reference ranges:60 or greater: Jiqcuw81-00 ( for 3 consecutive months): Chronic kidney disease 15 or less: Kidney failureFormerly [facility] HospitalGlucose Rlfff0892-66-17 06:09:00* Test Item Value Reference Range Interpretation Comments Glucose Level (test code = ZLU1556) 182 74-118 H [facility] HospitalCalcium Wmjks7852-13-83 06:09:00* Test Item Value Reference Range Interpretation Comments Calcium Level (test code = 11620-1) 8.8 8.4-10.2 [facility] Eovvw2991-62-94 06:09:00* Test Item Value Reference Range Interpretation Comments Sodium Level (test code = 2951-2) 138 136-145 [facility] HospitalPotassium Rxtsv1080-60-46 06:09:00* Test Item Value Reference Range Interpretation Comments Potassium Level (test code = 2823-3) 3.2 3.5-5.1 L [facility] HospitalChloride Bzqhj6081-97-72 06:09:00* Test Item Value Reference Range Interpretation Comments Chloride Level (test code = 2075-0) 105 98-107 [facility] HospitalCarbon Dioxide Fvmeo4110-39-07 06:09:00* Test Item Value Reference Range Interpretation Comments Carbon Dioxide Level (test code = 2028-9) 23 22-29 [facility] HospitalAnion Eel1003-50-48 06:09:00* Test Item Value Reference Range Interpretation Comments Anion Gap (test code = 58801-4) 13.2 8-16 [facility] HospitalBlood Urea Rvllgisz5285-85-96 06:09:00* Test Item Value Reference Range Interpretation Comments Blood Urea Nitrogen (test code = 3094-0) 23 7-26 [facility] HospitalCreatinine2020-02-05 06:09:00* Test Item Value Reference Range Interpretation Comments Creatinine (test code = 2160-0) 1.13 0.57-1.11 H [facility] HospitalBUN/Creatinine Guozv3879-91-46 06:09:00* Test Item Value Reference Range Interpretation Comments BUN/Creatinine Ratio (test code = 3097-3) 20 6-25 [facility] HospitalEstimat Glomerular Filtration Rate 2019-08-26 06:09:00* Test Item Value Reference Range Interpretation Comments Estimat Glomerular Filtration Rate (test code = 958181227) 46 >60 L Ranges were taken from the National Kidney Disease Education Program and the [facility] Kid[facility] Foundation literature.Reference ranges:60 or greater: Hvezif69-33 ( for 3 consecutive months): Chronic kidney disease 15 or less: Kidney failureFormerly [facility] HospitalGlucose Oliwr7655-24-54 06:09:00* Test Item Value Reference Range Interpretation Comments Glucose Level (test code = IIY2882) 182 74-118 H [facility] HospitalCalcium Pesdb5809-64-36 06:09:00* Test Item Value Reference Range Interpretation Comments Calcium Level (test code = 95354-0) 8.8 8.4-10.2 [facility] HospitalBlood Obwsqps2954-05-28 15:20:00* Test Item Value Reference Range Interpretation Comments Blood Culture (test code = 600-7) No Result Data Provided [facility] Lnydnhl2628-58-74 15:20:00* Test Item Value Reference Range Interpretation Comments Blood Culture (test code = 600-7) No Result Data Provided [facility] HospitalWhite Blood Adqur1937-55-90 05:39:00* Test Item Value Reference Range Interpretation Comments White Blood Count (test code = 6690-2) 4.58 4.8-10.8 L [facility] HospitalRed Blood Ungjk7572-52-33 05:39:00* Test Item Value Reference Range Interpretation Comments Red Blood Count (test code = 789-8) 3.53 3.6-5.1 L [facility] HospitalHemoglobin2020-02-02 05:39:00* Test Item Value Reference Range Interpretation Comments Hemoglobin (test code = 16670-9) 10.7 12.0-16.0 L [facility] HospitalHematocrit2020-02-02 05:39:00* Test Item Value Reference Range Interpretation Comments Hematocrit (test code = 4544-3) 34.0 34.2-44.1 L [facility] HospitalMean Corpuscular Ydxlbb2367-82-39 05:39:00* Test Item Value Reference Range Interpretation Comments Mean Corpuscular Volume (test code = 787-2) 96.3 81-99 [facility] HospitalMean Corpuscular Lwekxtlwhi9583-22-47 05:39:00* Test Item Value Reference Range Interpretation Comments Mean Corpuscular Hemoglobin (test code = 785-6) 30.3 28-32 [facility] HospitalMean Corpuscular Hemoglobin Concent 2019-08-23 05:39:00* Test Item Value Reference Range Interpretation Comments Mean Corpuscular Hemoglobin Concent (test code = 786-4) 31.5 31-35 [facility] HospitalRed Cell Distribution Qmhsf9622-57-96 05:39:00* Test Item Value Reference Range Interpretation Comments Red Cell Distribution Width (test code = 09796-0) 14.4 11.7 -14.4 [facility] HospitalPlatelet Cegln3606-18-81 05:39:00* Test Item Value Reference Range Interpretation Comments Platelet Count (test code = 777-3) 242 140-360 [facility] HospitalNeutrophils (%) (Auto)2019-08-23 05:39:00 * Test Item Value Reference Range Interpretation Comments Neutrophils (%) (Auto) (test code = 98963-2) 68.1 38.7-80.0 [facility] HospitalLymphocytes (%) (Auto)2019-08-23 05:39:00 * Test Item Value Reference Range Interpretation Comments Lymphocytes (%) (Auto) (test code = 736-9) 17.0 18.0-39.1 L [facility] HospitalMonocytes (%) (Auto)2019-08-23 05:39:00* Test Item Value Reference Range Interpretation Comments Monocytes (%) (Auto) (test code = 5905-5) 9.2 4.4-11.3 [facility] HospitalEosinophils (%) (Auto)2019-08-23 05:39:00 * Test Item Value Reference Range Interpretation Comments Eosinophils (%) (Auto) (test code = 713-8) 4.6 0.0-6.0 [facility] HospitalBasophils (%) (Auto)2019-08-23 05:39:00* Test Item Value Reference Range Interpretation Comments Basophils (%) (Auto) (test code = 706-2) 0.4 0.0-1.0 [facility] HospitalIM GRANULOCYTES %2019-08-23 05:39:00* Test Item Value Reference Range Interpretation Comments IM GRANULOCYTES % (test code = IM GRANULOCYTES %) 0.7 0.0- 1.0 [facility] HospitalNeutrophils # (Auto)2019-08-23 05:39:00* Test Item Value Reference Range Interpretation Comments Neutrophils # (Auto) (test code = 751-8) 3.1 2.1-6.9 [facility] HospitalLymphocytes # (Auto)2019-08-23 05:39:00* Test Item Value Reference Range Interpretation Comments Lymphocytes # (Auto) (test code = 52420-5) 0.8 1.0-3.2 L [facility] HospitalMonocytes # (Auto)2019-08-23 05:39:00* Test Item Value Reference Range Interpretation Comments Monocytes # (Auto) (test code = 742-7) 0.4 0.2-0.8 [facility] HospitalEosinophils # (Auto)2019-08-23 05:39:00* Test Item Value Reference Range Interpretation Comments Eosinophils # (Auto) (test code = 711-2) 0.2 0.0-0.4 [facility] HospitalBasophils # (Auto)2019-08-23 05:39:00* Test Item Value Reference Range Interpretation Comments Basophils # (Auto) (test code = 704-7) 0.0 0.0-0.1 [facility] HospitalAbsolute Immature Granulocyte (auto 2019-08-23 05:39:00* Test Item Value Reference Range Interpretation Comments Absolute Immature Granulocyte (auto (jeny t code = Absolute Immature Granulocyte (auto) 0.03 0-0.1 [facility] HospitalWhite Blood Dlfye4999-94-16 05:39:00* Test Item Value Reference Range Interpretation Comments White Blood Count (test code = 6690-2) 4.58 4.8-10.8 L [facility] HospitalRed Blood Jisth0478-11-72 05:39:00* Test Item Value Reference Range Interpretation Comments Red Blood Count (test code = 789-8) 3.53 3.6-5.1 L [facility] HospitalHemoglobin2020-02-02 05:39:00* Test Item Value Reference Range Interpretation Comments Hemoglobin (test code = 53383-8) 10.7 12.0-16.0 L [facility] HospitalHematocrit2020-02-02 05:39:00* Test Item Value Reference Range Interpretation Comments Hematocrit (test code = 4544-3) 34.0 34.2-44.1 L [facility] HospitalMean Corpuscular Tsctpr9180-67-46 05:39:00* Test Item Value Reference Range Interpretation Comments Mean Corpuscular Volume (test code = 787-2) 96.3 81-99 [facility] Corpuscular Rgawipqpdj5336-30-41 05:39:00* Test Item Value Reference Range Interpretation Comments Mean Corpuscular Hemoglobin (test code = 785-6) 30.3 28-32 [facility] Corp[facility] Hemoglobin Concent 2019-08-23 05:39:00* Test Item Value Reference Range Interpretation Comments Mean Corpuscular Hemoglobin Concent (test code = 786-4) 31.5 31-35 [facility] HospitalRed Cell Distribution Jzvqx6346-50-66 05:39:00* Test Item Value Reference Range Interpretation Comments Red Cell Distribution Width (test code = 03588-0) 14.4 11.7 -14.4 [facility] HospitalPlatelet Dgjdx2873-97-30 05:39:00* Test Item Value Reference Range Interpretation Comments Platelet Count (test code = 777-3) 242 140-360 [facility] HospitalNeutrophils (%) (Auto)2019-08-23 05:39:00 * Test Item Value Reference Range Interpretation Comments Neutrophils (%) (Auto) (test code = 78941-4) 68.1 38.7-80.0 [facility] HospitalLymphocytes (%) (Auto)2019-08-23 05:39:00 * Test Item Value Reference Range Interpretation Comments Lymphocytes (%) (Auto) (test code = 736-9) 17.0 18.0-39.1 L [facility] HospitalMonocytes (%) (Auto)2019-08-23 05:39:00* Test Item Value Reference Range Interpretation Comments Monocytes (%) (Auto) (test code = 5905-5) 9.2 4.4-11.3 [facility]Eosinophils (%) (Auto)2019-08-23 05:39:00 * Test Item Value Reference Range Interpretation Comments Eosinophils (%) (Auto) (test code = 713-8) 4.6 0.0-6.0 [facility]Basophils (%) (Auto)2019-08-23 05:39:00* Test Item Value Reference Range Interpretation Comments Basophils (%) (Auto) (test code = 706-2) 0.4 0.0-1.0 [facility] HospitalIM GRANULOCYTES %2019-08-23 05:39:00* Test Item Value Reference Range Interpretation Comments IM GRANULOCYTES % (test code = IM GRANULOCYTES %) 0.7 0.0- 1.0 [facility] HospitalNeutrophils # (Auto)2019-08-23 05:39:00* Test Item Value Reference Range Interpretation Comments Neutrophils # (Auto) (test code = 751-8) 3.1 2.1-6.9 [facility] HospitalLymphocytes # (Auto)2019-08-23 05:39:00* Test Item Value Reference Range Interpretation Comments Lymphocytes # (Auto) (test code = 72913-4) 0.8 1.0-3.2 L [facility] HospitalMonocytes # (Auto)2019-08-23 05:39:00* Test Item Value Reference Range Interpretation Comments Monocytes # (Auto) (test code = 742-7) 0.4 0.2-0.8 [facility]Eosinophils # (Auto)2019-08-23 05:39:00* Test Item Value Reference Range Interpretation Comments Eosinophils # (Auto) (test code = 711-2) 0.2 0.0-0.4 [facility] HospitalBasophils # (Auto)2019-08-23 05:39:00* Test Item Value Reference Range Interpretation Comments Basophils # (Auto) (test code = 704-7) 0.0 0.0-0.1 [facility] HospitalAbsolute Immature Granulocyte (auto 2019-08-23 05:39:00* Test Item Value Reference Range Interpretation Comments Absolute Immature Granulocyte (auto (jeny t code = Absolute Immature Granulocyte (auto) 0.03 0-0.1 [facility] HospitalFerritin2020-02-01 06:49:00* Test Item Value Reference Range Interpretation Comments Ferritin (test code = 2276-4) 126.25 4.63-204.00 [facility] HospitalFerritin2020-02-01 06:49:00* Test Item Value Reference Range Interpretation Comments Ferritin (test code = 2276-4) 126.25 4.63-204.00 [facility]2020-02-01 06:29:00* Test Item Value Reference Range Interpretation Comments Iron Level (test code = 2498-4) 33 50-170 L [facility] HospitalTotal Iron Binding Qffewygq0888-62-03 06:29:00* Test Item Value Reference Range Interpretation Comments Total Iron Binding Capacity (test code = 2500-7) 235 261-4 78 L [facility] HospitalPercent Iron Jwgbhjsxxi3252-51-26 06:29:00* Test Item Value Reference Range Interpretation Comments Percent Iron Saturation (test code = 2502-3) 14 15-50 L [facility] HospitalTransferrin2020-02-01 06:29:00* Test Item Value Reference Range Interpretation Comments Transferrin (test code = 3034-6) 168 180-382 L [facility]2020-02-01 06:29:00* Test Item Value Reference Range Interpretation Comments Iron Level (test code = 2498-4) 33 50-170 L [facility] HospitalTotal Iron Binding Efaeincg6693-41-15 06:29:00* Test Item Value Reference Range Interpretation Comments Total Iron Binding Capacity (test code = 2500-7) 235 261-4 78 L [facility] HospitalPercent Iron Lruplnqyfe5893-52-37 06:29:00* Test Item Value Reference Range Interpretation Comments Percent Iron Saturation (test code = 2502-3) 14 15-50 L [facility] HospitalTransferrin2020-02-01 06:29:00* Test Item Value Reference Range Interpretation Comments Transferrin (test code = 3034-6) 168 180-382 L [facility] HospitalTriglycerides Clpoh5440-38-65 06:02:00* Test Item Value Reference Range Interpretation Comments Triglycerides Level (test code = 2571-8) 120 0-149 [facility] HospitalCholesterol Oaygu5459-01-53 06:02:00* Test Item Value Reference Range Interpretation Comments Cholesterol Level (test code = 2093-3) 114 0-199 Less than 200 mg/dL Low Jvqz615 - 239 mg/dL Borderline Niyv551 m g/dl and greater High Risk [facility] HospitalLDL Dyzhrqwbylb7631-56-82 06:02:00* Test Item Value Reference Range Interpretation Comments LDL Cholesterol (test code = 2089-1) 50 60-130 L [facility] HospitalHDL Fgavsahkqgv1943-35-44 06:02:00* Test Item Value Reference Range Interpretation Comments HDL Cholesterol (test code = 2085-9) 40 40-60 [facility] HospitalCholesterol/HDL Ppfqp3825-71-68 06:02:00 * Test Item Value Reference Range Interpretation Comments Cholesterol/HDL Ratio (test code = 9830-1) 2.9 3.0-3.6 L [facility] HospitalTriglycerides Tggyd7812-24-99 06:02:00* Test Item Value Reference Range Interpretation Comments Triglycerides Level (test code = 2571-8) 120 0-149 [facility] HospitalCholesterol Cxydj9235-34-74 06:02:00* Test Item Value Reference Range Interpretation Comments Cholesterol Level (test code = 2093-3) 114 0-199 Less than 200 mg/dL Low Fjyz696 - 239 mg/dL Borderline Byhe314 m g/dl and greater High Risk [facility] HospitalLDL Axmjacgdmay6437-96-81 06:02:00* Test Item Value Reference Range Interpretation Comments LDL Cholesterol (test code = 2089-1) 50 60-130 [facility] Quotkjhychr3005-87-19 06:02:00* Test Item Value Reference Range Interpretation Comments HDL Cholesterol (test code = 2085-9) 40 40-60 [facility] HospitalCholesterol/HDL Ltphi3079-83-35 06:02:00 * Test Item Value Reference Range Interpretation Comments Cholesterol/HDL Ratio (test code = 9830-1) 2.9 3.0-3.6 L [facility] HospitalTotal Ayelnfgnx7440-25-53 05:51:00* Test Item Value Reference Range Interpretation Comments Total Bilirubin (test code = 1975-2) 0.6 0.2-1.2 [facility] HospitalAspartate Amino Transf (AST/SGOT) 2019-08-20 05:51:00* Test Item Value Reference Range Interpretation Comments Aspartate Amino Transf (AST/SGOT) (test code = Aspartate Amino Transf (AST/SGOT)) 28 5-34 [facility] HospitalAlanine Aminotransferase (ALT/SGPT) 2019-08-20 05:51:00* Test Item Value Reference Range Interpretation Comments Alanine Aminotransferase (ALT/SGPT) (test code = 1742-6) 21 0-55 [facility] HospitalTotal Vqxlwgo1161-15-83 05:51:00* Test Item Value Reference Range Interpretation Comments Total Protein (test code = 2885-2) 5.9 6.5-8.1 L [facility] HospitalAlbumin2020-01-30 05:51:00* Test Item Value Reference Range Interpretation Comments Albumin (test code = 1751-7) 2.8 3.5-5.0 L [facility] HospitalGlobulin2020-01-30 05:51:00* Test Item Value Reference Range Interpretation Comments Globulin (test code = 27368-0) 3.1 2.3-3.5 [facility] HospitalAlbumin/Globulin Pbxbo3764-26-36 05:51:00 * Test Item Value Reference Range Interpretation Comments Albumin/Globulin Ratio (test code = 1759-0) 0.9 0.8-2.0 [facility] HospitalAlkaline Tpnrwhfkcsf4863-71-19 05:51:00* Test Item Value Reference Range Interpretation Comments Alkaline Phosphatase (test code = 6768-6) 116 40-150 [facility] HospitalTotal Lrhspftnh6604-53-88 05:51:00* Test Item Value Reference Range Interpretation Comments Total Bilirubin (test code = 1975-2) 0.6 0.2-1.2 [facility] HospitalAspartate Amino Transf (AST/SGOT) 2019-08-20 05:51:00* Test Item Value Reference Range Interpretation Comments Aspartate Amino Transf (AST/SGOT) (test code = Aspartate Amino Transf (AST/SGOT)) 28 5-34 [facility] HospitalAlanine Aminotransferase (ALT/SGPT) 2019-08-20 05:51:00* Test Item Value Reference Range Interpretation Comments Alanine Aminotransferase (ALT/SGPT) (test code = 1742-6) 21 0-55 [facility] HospitalTotal Bzgoazf4504-23-18 05:51:00* Test Item Value Reference Range Interpretation Comments Total Protein (test code = 2885-2) 5.9 6.5-8.1 L [facility] HospitalAlbumin2020-01-30 05:51:00* Test Item Value Reference Range Interpretation Comments Albumin (test code = 1751-7) 2.8 3.5-5.0 L [facility] HospitalGlobulin2020-01-30 05:51:00* Test Item Value Reference Range Interpretation Comments Globulin (test code = 76905-4) 3.1 2.3-3.5 [facility] HospitalAlbumin/Globulin Kwdol3075-97-29 05:51:00 * Test Item Value Reference Range Interpretation Comments Albumin/Globulin Ratio (test code = 1759-0) 0.9 0.8-2.0 [facility] HospitalAlkaline Adsimiaajnz0613-56-93 05:51:00* Test Item Value Reference Range Interpretation Comments Alkaline Phosphatase (test code = 6768-6) 116 40-150 [facility] HospitalHemoglobin A1c Jqcvtcb5291-61-50 05:39:00 * Test Item Value Reference Range Interpretation Comments Hemoglobin A1c Percent (test code = Hemoglobin A1c Percent) 6.5 4.0-7.0 [facility] HospitalHemoglobin A1c Shamrne3573-67-50 05:39:00 * Test Item Value Reference Range Interpretation Comments Hemoglobin A1c Percent (test code = Hemoglobin A1c Percent) 6.5 4.0-7.0 [facility] HospitalUrine RZB6740-83-88 20:41:00* Test Item Value Reference Range Interpretation Comments Urine WBC (test code = 5821-4) 0-5 0-5 [facility] HospitalUrine UEE4276-67-31 20:41:00* Test Item Value Reference Range Interpretation Comments Urine RBC (test code = 84377-3) 21-50 0-5 H [facility] HospitalUrine Iazjhift1537-15-94 20:41:00* Test Item Value Reference Range Interpretation Comments Urine Bacteria (test code = 84027-5) RARE NONE [facility] HospitalUrine Epithelial Tfktj8842-52-95 20:41:00 * Test Item Value Reference Range Interpretation Comments Urine Epithelial Cells (test code = 59475-4) FEW NONE [facility] HospitalUrine NGA4261-85-52 20:41:00* Test Item Value Reference Range Interpretation Comments Urine WBC (test code = 5821-4) 0-5 0-5 [facility] HospitalUrine MER5642-19-05 20:41:00* Test Item Value Reference Range Interpretation Comments Urine RBC (test code = 98379-8) 21-50 0-5 H [facility] HospitalUrine Ybmqlydw4772-15-99 20:41:00* Test Item Value Reference Range Interpretation Comments Urine Bacteria (test code = 32806-4) RARE NONE [facility] HospitalUrine Epithelial Urqit5124-50-70 20:41:00 * Test Item Value Reference Range Interpretation Comments Urine Epithelial Cells (test code = 33850-8) FEW NONE [facility] HospitalUrine Goffl0405-10-48 20:25:00* Test Item Value Reference Range Interpretation Comments Urine Color (test code = 5778-6) STRAW YELLOW [facility] HospitalUrine Foeaole3477-80-60 20:25:00* Test Item Value Reference Range Interpretation Comments Urine Clarity (test code = 20897-7) CLOUDY CLEAR H [facility] HospitalUrine Specific Bvlthjw8553-85-02 20:25:00 * Test Item Value Reference Range Interpretation Comments Urine Specific [place] (test code = 5811-5) 1.020 1.010-1.02 5 [facility] HospitalUrine yF5119-10-26 20:25:00* Test Item Value Reference Range Interpretation Comments Urine pH (test code = 48917-2) 5.5 5-7 [facility] HospitalUrine Leukocyte Ejasptxj7812-23-96 20:25:00* Test Item Value Reference Range Interpretation Comments Urine Leukocyte Esterase (test code = 5799-2) TRACE NEGATIVE H [facility] HospitalUrine Htojwdi3891-72-33 20:25:00* Test Item Value Reference Range Interpretation Comments Urine Nitrite (test code = 69384-3) NEGATIVE NEGATIVE [facility] HospitalUrine Ptaohyt1295-55-22 20:25:00* Test Item Value Reference Range Interpretation Comments Urine Protein (test code = 5804-0) 2+ NEGATIVE H [facility] HospitalUrine Glucose (UA)2019-08-19 20:25:00* Test Item Value Reference Range Interpretation Comments Urine Glucose (UA) (test code = 2349-9) NEGATIVE NEGATIVE [facility] HospitalUrine Tobszqm7327-26-53 20:25:00* Test Item Value Reference Range Interpretation Comments Urine Ketones (test code = 19439-9) NEGATIVE NEGATIVE [facility] HospitalUrine Dskuupqydpef1132-96-19 20:25:00* Test Item Value Reference Range Interpretation Comments Urine Urobilinogen (test code = 05980-0) 0.2 0.2-1 [facility] HospitalUrine Zyowvzdvi8004-97-86 20:25:00* Test Item Value Reference Range Interpretation Comments Urine Bilirubin (test code = 1978-6) NEGATIVE NEGATIVE [facility] HospitalUrine Shfcn9693-31-40 20:25:00* Test Item Value Reference Range Interpretation Comments Urine Blood (test code = 12553-7) 4+ NEGATIVE H [facility] HospitalUrine Vfcaj1845-53-53 20:25:00* Test Item Value Reference Range Interpretation Comments Urine Color (test code = 5778-6) STRAW YELLOW [facility] HospitalUrine Oyrivdz6635-75-93 20:25:00* Test Item Value Reference Range Interpretation Comments Urine Clarity (test code = 61848-7) CLOUDY CLEAR H [facility] HospitalUrine Specific Jbwguyh8870-54-59 20:25:00 * Test Item Value Reference Range Interpretation Comments Urine Specific [place] (test code = 5811-5) 1.020 1.010-1.02 5 [facility] HospitalUrine mT5378-05-18 20:25:00* Test Item Value Reference Range Interpretation Comments Urine pH (test code = 07795-3) 5.5 5-7 [facility] HospitalUrine Leukocyte Saxxrqep2294-94-18 20:25:00* Test Item Value Reference Range Interpretation Comments Urine Leukocyte Esterase (test code = 5799-2) TRACE NEGATIVE H [facility] HospitalUrine Yjbixax5244-67-31 20:25:00* Test Item Value Reference Range Interpretation Comments Urine Nitrite (test code = 29352-4) NEGATIVE NEGATIVE [facility] HospitalUrine Osctvry5743-20-49 20:25:00* Test Item Value Reference Range Interpretation Comments Urine Protein (test code = 5804-0) 2+ NEGATIVE H [facility] HospitalUrine Glucose (UA)2019-08-19 20:25:00* Test Item Value Reference Range Interpretation Comments Urine Glucose (UA) (test code = 2349-9) NEGATIVE NEGATIVE [facility] HospitalUrine Xsccmfj1770-73-12 20:25:00* Test Item Value Reference Range Interpretation Comments Urine Ketones (test code = 54765-6) NEGATIVE NEGATIVE [facility] HospitalUrine Xihkqseofsul5613-58-98 20:25:00* Test Item Value Reference Range Interpretation Comments Urine Urobilinogen (test code = 71576-9) 0.2 0.2-1 [facility] HospitalUrine Fphmciwyb4546-39-80 20:25:00* Test Item Value Reference Range Interpretation Comments Urine Bilirubin (test code = 1978-6) NEGATIVE NEGATIVE [facility] HospitalUrine Cjmmk1867-48-90 20:25:00* Test Item Value Reference Range Interpretation Comments Urine Blood (test code = 89966-2) 4+ NEGATIVE H [facility] HospitalLactic Acid Qlivc4405-28-14 11:38:00* Test Item Value Reference Range Interpretation Comments Lactic Acid Level (test code = Lactic Acid Level) 1.0 0.5- 2.0 [facility] HospitalLactic Acid Naccz0712-35-38 11:38:00* Test Item Value Reference Range Interpretation Comments Lactic Acid Level (test code = Lactic Acid Level) 1.0 0.5- 2.0 [facility] HospitalC[facility] 2 VIEW - BQAW4127-49-06 11:19:00 [facility] [address] [address] Patient Name: GEOVANI ANDERSEN MR #: [id number] : 1935 Age/Sex: 83/F Req #: [id number] Adm Physician: Ordered by: DEZ RODRIGEUZ MD Report #: [id number] Location: [facility] Room/Bed: Procedure: 012 03 HOPD/CXR 2 VIEW [...] TO: DEZ RODRIGUEZ MD CT ABD/PEL WO HVVQQYBJ-EZVV6766-42-29 11:05:00 [address] [address] Patient Name: GEOVANI ANDERSEN MR #: [id number] : 1935 Age/Sex: 83/F Req #: [id number] Adm Physician: Ordered by: DEZ RODRIGUEZ MD Report #: [id number] Location: [facility] Room/Bed: Procedure: 012 HOPD/CT ABD/PEL WO CONTRAST-HOPD [...] COPY TO: DEZ RODRIGUEZ MD U/S, ABDOMINAL, JPCPJLIE7817-38-68 11:00:00Please perform elastography.Reason for Exam:->fatty liver, with elastographyLocation->[facility] HospitalFINAL REPORT TECHNIQUE: Grayscale ultrasound of [...] Report Verified Date/Time: 05/07/2019 11:00:11 Reading Location: [address] Radiology Reading Room [[facility]] CULTURE, URINE, OOMJTRJ9180-71-14 00:00:00* Test Item Value Reference Range Interpretation Comments CULTURE (test code = CULTURE) See Comment CULTURE, URINE, ROUTINE MICRO NUMBER: [id number] TEST STATUS: FINAL SPECIMEN SOURCE: URINE SPECIMEN QUALITY: ADEQUATE RESULT: Multiple organisms present, each less than 10,000 CFU/mL. These organisms, commonly found on external and internal genitalia, are considered to be colonizers. No further testing performed. [facility]] CMP W/AFDV6500-85-52 13:50:00* Test Item Value Reference Range Interpretation Comments GLUCOSE; Normal (test code = 1547-9) 94 mg/dl 65-139 N Non-fasting reference interval UREA NITROGEN (BUN) (test code = UREA NITROGEN (BUN)) 73 mg/dl 7-25 CREATININE (test code = CREATININE) 2.15 mg/dl 0.60-0.88 For patients >49 years of age, the reference limitfor Creatinine is approximately 13% higher for peopleidentified as -Macedonian. eGFR NON- (test code = eGFR NON-FERNANDO N SRI LANKAN) 20 {ML/MIN/1.7} > OR = 60 eGFR [...] N BILIRUBIN, TOTAL; Normal (test code = 88856-0) 0.5 mg/dl 0.2-1.2 N ALKALINE PHSPHATASE (test code = ALKALINE PHSPHATASE) 123 u/l 33-130 N AST; Normal (test code = 1916-6) 21 u/l 10-35 N ALT; Normal (test code = 1742-6) 15 u/l 6-29 N [facility]] CBC (INCLUDES DIFF/PLT)2018-11-18 13:50:00* Test Item Value Reference Range Interpretation Comments WHITE BLOOD CELL COUNT (test code = WHITE BLOOD CELL COUNT) 7.0 {Thousand/u} 3.8-10.8 N RED BLOOD CELL COUNT (test code = RED BLOOD CELL COUNT) 3.99 {Million/uL} 3.80-5.10 N HEMAGLOBIN; Normal (test code = 19420-1) 12.6 g/dl 11.7-15.5 N HEMATOCRIT; Normal (test code = 4544-3) 37.0 % 35.0-45.0 N MCV; Normal (test code = 787-2) 92.7 fL 80.0-100.0 N MCHC; Normal (test code = 46490-0) 34.1 g/dl 32.0-36.0 N RDW; Normal (test code = 788-0) 13.3 % 11.0-15.0 N PLATELET COUNT; Normal (test code = 777-3) 276 {Thousand/u} 140-400 N MPV; Normal (test code = 71014-2) 10.7 fL 7.5-12.5 N ABSOLUTE NEUTROPHILS (test code = ABSOLUTE NEUTROPHILS) 5187 {cells/uL} 3574-8268 N ABSOLUTE LYMPHOCYTES (test code = ABSOLUTE [...] % N MONOCYTES; Normal (test code = 71182-1) 6.7 % N EOSINOPHILS; Normal (test code = 46856-7) 3.6 % N BASOPHILS; Normal (test code = 97494-8) 0.4 % N [facility][O] Urine Dipstick (In Office)2018-11-18 13:11:00 * Test Item Value Reference Range Interpretation Comments Glucose (test code = Glucose) NEGATIVE N LEUKOCYTES (test code = LEUKOCYTES) NEGATIVE N NITRITE; Normal (test code = 72241-9) NEGATIVE N UROBILINOGEN; Normal (test code = 87245-9) NEGATIVE N PROTEIN; Normal (test code = 13700-1) NEGATIVE N pH (test code = pH) 5 N URINE BLOOD; Normal (test code = 49276-7) NEGATIVE N SPECIFIC GRAVITY; Normal (test code = 2965-2) 1.010 N KETONES; Normal (test code = 39396-1) NEGATIVE N BILIRUBIN; Normal (test code = 60596-1) NEGATIVE N COLOR URINE; Normal (test code = 5778-6) YELLOW N APPEARANCE; Normal (test code = 5767-9) CLEAR N [facility]] CULTURE, URINE, FPXKXHJ4897-13-03 00:00:00* Test Item Value Reference Range Interpretation Comments CULTURE (test code = CULTURE) See Comment CULTURE, URINE, ROUTINE MICRO NUMBER: [id number] TEST STATUS: FINAL SPECIMEN SOURCE: URINE SPECIMEN QUALITY: ADEQUATE RESULT: Single organism less than 10,000 CFU/mL isolated. These organisms, commonly found on external and internal genitalia, are considered colonizers. No further testing performed. [facility]iciansC[facility] 1 VEW - UFAI9334-83-90 13:02:00 [place] [address] Patient Name: GEOVANI ANDERSEN MR #: [id number] : 1935 Age/Sex: 83/F Req #: [id number] Adm Physician: Ordered by: NALLELY MARIEE MD Report #: [id number] Location: [facility] Room/Bed: Procedure: 0226-00 03 HOPD/CXR 1 [facility] Exam Date: 09/16/18 Exam Ti me: [...] MARIEE MD CHEM PANEL 2018-07-04 16:11:001.4[facility] HZBKX0183-75-84 16:11:000.5[facility]annCHE[facility] OAIUC9463-50-65 16:11:0022[facility]annCHEM FLHLN6083-33-96 16:11:39388Smwspicr HermannCHEM WOKGY2614-52-37 16:11:002.7[facility]annCHEM HTRVE1543-96-47 16:11:0012[facility]annCHEM KUNML0658-63-18 16:11:006.5 [facility] HNPOQ5845-82-48 16:11:003.8[facility]annCHEM PANEL 2018-07-04 16:11:0025[facility]annCHEM UZNYS9061-83-30 16:11:0010.0[facility]annCHEM UQBMR4707-80-36 16:11:75266Inymyhay HermannCHEM VVHEY0994-13-50 16:11:0031[facility]annCHEM GYIGA4123-55-73 16:11:0032[facility]annCHEM CJZWN6253-27-63 16:11:68855Kciowfrb HermannCHEM CAQTM4426-56-83 16:11:005.0 [facility]CHE[facility] IQDWP1173-61-43 16:11:96008Jkofrypw HermannCHEM PANEL 2018-07-04 16:11:0054[facility]annCHEM XIMZW5848-16-08 16:11:0027[facility]annCHEM SQYED5332-38-82 16:11:001.71[facility] WvskvqmVGFPWZPBPK7137-13-23 16:11:006.1[facility] ReczpxuSCAVBQYJYO7248-22-54 16:11:000.7[facility] TULZWRQGPX3776-71-74 16:11:001.8[facility] RkadksoDQGCAJSAGC6804-47-67 16:11:00 21.1[facility]orial CxyjhehLOOGHZAIBK6735-71-68 16:11:0070.3[facility]annHEMATOLOGY 2018-07-04 16:11:74646Ijcukbar MkbdbfvJFWODBKWBM3369-83-54 16:11:0063[facility] SohxydnHNJPUXLREQ0443-70-55 16:11:0034.2[facility] CyxrdafPHFNPPPOXN6871-65-57 16:11:83355Wwjpgiov IopngwzQCRNNONSMK3842-39-32 16:11:13833Jaghyyrg Jovani FIBGMZMRZY3733-25-21 16:11:0013.1[facility] OikfxizVXXBUTUGMG5879-84-98 16:11:00 6327[facility] HjuweedONQBJXMCRM0825-07-61 16:11:424934Mfetfpbg HermannHEMATOLOGY 2018-07-04 16:11:0011.0[facility] UtykgqbNUTGYXNOJF3413-36-62 16:11:009.0[facility] TdeefjnQWSWJWSMMJ4413-77-35 16:11:00* Test Item Value Reference Range Interpretation Comments MCH (test code = MCH) 30.9 pg 27.0-33.0 [facility] YoxoaysJQGGDWFAFK5008-36-86 16:11:0040.1[facility]annHEMATOLOGY 2018-07-04 16:11:0090.5[facility] ErctckkFCQEPSZNFV4671-06-29 16:11:0013.7[facility] XwqkkwoQXVBGEYFIN9142-74-43 16:11:004.43[facility] FgqzkxlJRPKPR5555-62-53 16:11:0090[facility] VrkabjgYIOPIH8526-91-91 16:11:0063[facility] HermannLIPIDS 2018-07-04 16:11:0048[facility] QshtxenAHKQUF1590-60-27 16:11:61661Gstqjyyl BamastjREOJGW2749-30-82 16:11:002.9[facility] JoygvimVNPPJT0064-75-63 16:11:01358 [facility]annSPECIAL HBVWFLGDC7114-92-10 16:11:006.8[facility] HermannURINE HLYH1778-64-25 16:11:0054[facility] HermannURINE TWNH1888-11-17 16:11:0085[facility] HermannURINE ZKOF3257-43-88 16:11:004.6[facility] HermannCT ABD/PEL WO JXCMQKGL-KBLR4053-70-04 16:28:00 [place] [address] Patient Name: GEOVANI ANDERSEN MR #: [id number] : 1935 Age/Sex: 82/F Req #: [id number] Adm Physician: Ordered by: CHRIS GARCIA MD Report #: [id number] Location: [facility] Room/Bed: Procedure: [id number] HOPD/CT ABD/PEL WO CONTRAST-HOPD Exam Date: 05/25/18 [...] COPY TO: CHRIS GARCIA MD U/S, ABDOMINAL, JNLAGLRR9409-96-03 17:34:00Reason for Exam:->fatty liverFINAL REPORT Ultrasound of [...] Verified Date/Time: 05/05/2018 17:34:11 Alisha contreras Location: [address] Radiology Reading Room YLNJT6191-43-38 14:45:0098 [facility] CKQDT3042-32-29 14:45:000.4[facility] PANEL 2017-12-03 14:45:0015[facility] XNEJO7895-09-22 14:45:0023[facility] WDKVB1012-81-49 14:45:57188Cjznrchn [facility]annCHEM DEKYX8276-27-08 14:45:005.0[facility] GOUYQ2756-71-67 14:45:94819Uymhvaot HermannCHEM HQGZY8511-99-26 14:45:006.9[facility]annCHE[facility] CLVKH9322-09-31 14:45:0010.0 [facility] WSMJZ2224-33-04 14:45:0020[facility]CHE[facility] PANEL 2017-12-03 14:45:00* Test Item Value Reference Range Interpretation Comments B/C Ratio (test code = B/C Ratio) 21 1 - [facility] GBRPR6588-36-95 14:45:001.64[facility]annCHE[facility] PANEL 2017-12-03 14:45:0035[facility]CHE[facility] HGVWZ4915-22-12 14:45:97650Izrfltau HermannCHEM EYBUN9261-77-86 14:45:00* Test Item Value Reference Range Interpretation Comments A/G Ratio (test code = A/G Ratio) 1.2 1 1.2-2.2 [facility] ATYBO8292-12-51 14:45:003.1[facility]annCHE[facility] PANEL 2017-12-03 14:45:003.8[facility] FuekohgHNFFTDOTPE6501-51-55 14:45:000.0[facility] EkyilnrIWRGDBZUPH3884-78-30 14:45:001[facility] LjzveldHRDXYMJVHN7462-80-47 14:45:000.0[facility] JanfskqNOLOIFDVPE3591-88-33 14:45:000.1[facility] GIAESWJVHS3744-63-63 14:45:000.4[facility] SosfimhEREECFQJSX6947-63-83 14:45:002 [facility] BkxxownCBVDUVEETP3202-18-70 14:45:007[facility]annHEMATOLOGY 2017-12-03 14:45:0032[facility] CtbghqlVPFREKMMDB7523-56-19 14:45:0057[facility] JeraavnLWOGKLHEXV6202-89-02 14:45:28323Xbayqjys BgcpizrRLHUKLNFAQ5781-99-75 14:45:0014.6[facility] MufuuqbLYIFFYCRBZ6148-72-65 14:45:001.8[facility] UQZRMFDUMG7591-57-58 14:45:003.2[facility] GymzjwyXJTZIYNSVW9164-64-05 14:45:001 [facility] LjwyywcXSEZVCQRNW8426-59-10 14:45:0031.9[facility]annHEMATOLOGY 2017-12-03 14:45:005.6[facility] DupfvetUBCWPNOCFT9389-52-86 14:45:00* Test Item Value Reference Range Interpretation Comments MCH (test code = MCH) 30.3 pg 26.6-33.0 [facility] KfvuekpPZCVOLGXJI7699-94-71 14:45:0095[facility]annHEMATOLOGY 2017-12-03 14:45:0040.1[facility] PmvwgkmOQHKAJRJHH0115-39-93 14:45:0012.8[facility] VlttvilGGEEWNOOKM7935-19-46 14:45:004.22[facility]annSPECIAL CHEMISTRY 2017-12-03 14:45:008.0[facility][O] Flu Test (in Office )2017-10-18 12:59:00* Test Item Value Reference Range Interpretation Comments Flu A (test code = Flu A) Negative N Flu B (test code = Flu B) Negative [facility]icians[facility], ABDOMINAL, PXRVTICV7718-87-31 13:40:00please perform elastographyplease perform elastographyReason for Exam:->fatty [...] Ornelas Verified Date/Time: 04/15/2017 13:40:05 Reading Location: [address] Radiology Reading Room A FETOPROTEIN (AFP), TUMOR FQBHTI7191-26-87 11:41:00* Test Item Value Reference Range Interpretation Comments ALPHA-FETOPROTEIN (BEAKER) (test code = 1094) < ng/mL <10.0 BASIC METABOLIC MCQZD5415-74-75 11:05:00* Test Item Value Reference Range Interpretation [...] NOT APPLICABLE FOR DIALYSIS PATIENTS. HEPATIC FUNCTION MKUTS6012-27-07 11:05:00* Test Item Value Reference Range Interpretation [...] slightly hemolyzed CBC W/PLT COUNT & AUTO IFSXQUZVLHJK0640-98-19 10:49:00* Test Item Value Reference Range Interpretation [...] code = 2801) 1 % 0-1 CHEM DHFXV1488-87-03 15:27:0045.9[facility] ZczffhkZUSRMHYFETTN5667-56-11 15:27:00 103[facility] QpgjffeBBGVCXBGEWRY8155-42-59 15:27:009.5[facility] FPJCMOLXOOUW8983-19-29 15:27:0021[facility] OlfvbfjNDMHLFBTTNZL7209-92-20 15:27:00 1.40[facility] EemnuuqBKDKAUXFNOSB4964-83-26 15:27:00* Test Item Value Reference Range Interpretation Comments B/C Ratio (test code = B/C Ratio) 21 1 11-26 [facility] HmnyajwLUQJWCIKEFES9653-72-58 15:27:68937Jxxyahnc HermannELECTROLYTES 2016-07-30 15:27:004.6[facility] JdsbimqWAKQJWBJZXLL5751-62-35 15:27:15136Dmdxhmns YytjcimYUMVGGWZCBCC4361-48-24 15:27:0030[facility] XufddcwZBVEFXRCTAJB7327-45-95 15:27:000.4[facility] CmvadwqKAVDIWYJQKHI6160-17-36 15:27:003.9[facility] UGHLJMGFDNHT4292-93-37 15:27:002.2[facility] ImtktyzNPTBQOPNGQUM7038-13-36 15:27:006.1[facility] PkhxcpzLYQYBWOVBIFK4592-37-03 15:27:00* Test Item Value Reference Range Interpretation Comments A/G Ratio (test code = A/G Ratio) 1.8 1 1.1-2.5 [facility] CjlmpkmYCUIDVFNWAXU9248-86-87 15:27:20045Dabntida HermannELECTROLYTES 2016-07-30 15:27:0013[facility] PyjwwfaYCSIVNFRQJKA1728-29-67 15:27:0024[facility] JhqcoulODUADTMPXY7996-50-22 15:27:001[facility] FuentfaTTVYXJGTDU4098-73-83 15:27:007[facility] PqbedppJIMIXYHTNI9094-69-14 15:27:003[facility] PKYDPMDLBX4524-84-13 15:27:003.9[facility] MwdghznXPNRQQLFLL2351-34-38 15:27:00* Test Item Value Reference Range Interpretation Comments MCH (test code = MCH) 31.1 pg 26.6-33.0 [facility] OxfzclpXCPNMQKYQY8382-24-15 15:27:81701Rkhymfmm HermannHEMATOLOGY 2016-07-30 15:27:0051[facility] QskwhieHZFFNSYEPQ4343-75-78 15:27:0033.5[facility] EujuwwhXVHYQVMVVI4764-07-58 15:27:0014.4[facility] JbxxuotGGLYIULLUB7298-26-07 15:27:000.0[facility] NvhrhqfVUFHKVGIST9486-26-49 15:27:000.5[facility] UQKKDQIQNX8815-37-27 15:27:000.2[facility] WhpezbvLBDEIFHOHW3109-62-15 15:27:002.8 [facility] DgifyvjJGSMDIYYHI8102-70-15 15:27:000.0[facility] HermannHEMATOLOGY 2016-07-30 15:27:000[facility] OkthqrnWVBHJTPVXR9966-14-75 15:27:007.5[facility] UnwkkqgTHGGRIZJEW6864-90-69 15:27:0038[facility] SvzwfdeKSZRUTFPEC6169-98-39 15:27:004.25[facility] JfyekpjFQMMKHKOGE1602-11-32 15:27:0093[facility] ILYFYHDENQ4390-43-41 15:27:0013.2[facility] YvvizxbBFTYBWOPSH4935-06-28 15:27:00 39.4[facility] HguzenaVWTEUP0948-43-74 15:27:35814Cxigqszp JblzaorAOIADI4198-87-93 15:27:59688Ypjnferu LifzxqiRPGUEX8321-44-19 15:27:0061[facility] HermannLIPIDS 2016-07-30 15:27:0023[facility] SftujbxKNYYVO8333-79-04 15:27:000.8[facility] NkcsnliYNDQIS7394-01-52 15:27:0048[facility]annSPECIAL JGUPNSNHU0765-11-22 15:27:006.8[facility]annCHEM BRCYD5997-22-88 15:05:0051.6[facility] URINE YQEV8951-75-62 15:05:0062.7[facility]annURINE NGDH6085-41-76 15:05:00 27.6[facility]annURINE INYP7577-58-98 15:05:0017.3[facility]annCHEM PANEL 2016-04-16 18:02:0042[facility]annCHEM IDJNV5875-35-77 18:02:003.1[facility]annCHEM MQNEN1438-67-55 18:02:0031[facility]annCHEM RXWDS4875-34-36 18:02:006.9[facility]annCHEM PXQTK0765-87-41 18:02:000.6[facility]annCHEM TQHZR4310-78-46 18:02:55851Bsvthxhs HermannCHEM UNXUA2721-20-09 18:02:0028 [facility] SNMXK0198-64-19 18:02:001.20[facility]annCHEM PANEL 2016-04-16 18:02:0017[facility]annCHEM DFYGD2914-41-18 18:02:89185Oilriflw HermannCHEM KIVWQ6091-20-55 18:02:003.9[facility]annCHEM XBQPK0368-66-53 18:02:98506Dqmqqkdp HermannCHEM ZGPNR5822-48-10 18:02:009.2[facility]annCHEM CLXFA8461-84-25 18:02:0026[facility]annCHEM LAIZG7161-05-34 18:02:44053 [facility]CHE[facility] RKICB7201-14-06 18:02:000.8[facility]annCHEM PANEL 2016-04-16 18:02:003.8[facility]annCHEM DCROD3015-49-13 18:02:0014[facility]annCHEM MJGUM6174-19-18 18:02:0010.9[facility] KwcdovfMMZUPAUKBS3439-09-05 18:02:008.0[facility] UbphzdoWRMEDWTGTN4797-54-59 18:02:00* Test Item Value Reference Range Interpretation Comments MCH (test code = MCH) 31.1 pg 27.0-31.0 [facility] YvpnsxiHQGPRDKWIF0834-12-04 18:02:0092.3[facility] HermannHEMATOLOGY 2016-04-16 18:02:0033.6[facility] LjohfxkNHZJJLYHSM4967-46-45 18:02:0014.1[facility] WxgbwypMWGBXURDDX6058-11-04 18:02:24247Geedvxxg LjertslRTTEUNNKHQ4945-71-45 18:02:009.2[facility] MvoksmbQIFNAKYTBX5713-97-71 18:02:0035.7[facility] RAFYZDLJGY8667-82-46 18:02:003.87[facility] XobzzcqFVAWBPWZDU9054-73-71 18:02:00 12.0[facility] OsmdodsNBFOIPILZC1647-44-69 18:02:000.7[facility] HermannHEMATOLOGY 2016-04-16 18:02:006.8[facility] CdydhosLTPXPUXWFI4462-09-93 18:02:002.9[facility] TbpzqobXFSWMXTGAQ9993-88-45 18:02:006.7[facility] RuvqpsvQQLTUOUVBL4357-45-42 18:02:000.3[facility] YomujcnMGXOBDLCWQ2593-74-63 18:02:000.6[facility] TAIIKPFJCN9221-66-69 18:02:001.5[facility] KgbkhraARNCSVVEWF3240-52-87 18:02:000.1 [facility] XuoazowLYDAYWTUBB2774-34-02 18:02:0073.5[facility] HermannHEMATOLOGY 2016-04-16 18:02:0016.2[facility]annCHEM TBWWP6397-19-48 11:22:0030[facility]annCHEM IMROV2556-86-37 11:22:0017[facility]annCHEM UGOWA3957-55-97 11:22:06656Wacanyev HermannCHEM YNQBD2273-12-88 11:22:008.2[facility]annCHEM WEOTG0192-21-37 11:22:0015.4[facility]annCHEM FXYTQ0113-79-79 11:22:25219 [facility]CHE[facility] GAIVF9004-65-94 11:22:004.4[facility]annCHEM PANEL 2016-04-09 11:22:30190Ufkhzonn HermannCHEM XJHDJ6818-01-57 11:22:001.59[facility]annCHEM JHPHC2133-86-41 11:22:0042[facility]annCHEM DKQAF1021-97-44 11:22:002.0[facility]annCHEM MWHUA8799-41-05 11:22:003.1[facility] HZCYBTGKWV6805-76-67 11:22:0082.1[facility] RekykdxLXBFWHWKWI9429-72-76 11:22:00 9.1[facility] NjpppdgZFLYVRNLCY0291-31-98 11:22:007.8[facility]annHEMATOLOGY 2016-04-09 11:22:000.8[facility] HmkkznzVNHVOOOZZA9641-32-34 11:22:000.1[facility] FomxithHEMUDJHUVE5589-17-93 11:22:008.6[facility] DjqspweNXJMQLAXRJ2041-40-78 11:22:001.0[facility] DeupauwNRZTZXFWYW3436-95-90 11:22:000.3[facility] YBQTNYPGBT6812-30-76 11:22:000.7[facility] ZpjzkdkVPCJGELOQM1149-49-83 11:22:00 14.2[facility] ZodnswyYKMTEXEMYQ1929-80-11 11:22:30011Ifzxftxm HermannHEMATOLOGY 2016-04-09 11:22:009.1[facility] UszbmqnAREEFHRGZB4947-89-88 11:22:0033.5[facility] VqzoxgcDKNOHADEFP7402-54-56 11:22:00* Test Item Value Reference Range Interpretation Comments MCH (test code = MCH) 31.6 pg 27.0-31.0 [facility] LzyevrkEDGSLBHQFB9412-30-77 11:22:0094.2[facility] HermannHEMATOLOGY 2016-04-09 11:22:0011.0[facility] RotijosKVHJUIYHPR8870-64-99 11:22:003.50[facility] UdsohosHZIRHLOWTM9356-27-19 11:22:0033.0[facility] KwdxmjeBBAZMQWLTE0213-16-72 11:22:0010.5[facility]annCHEM GRPUO9628-91-67 13:55:0021[facility]annCHEM SHIYH2375-94-12 13:55:0054[facility]annCHEM BXGHE2001-84-17 13:55:002.16 [facility]CHE[facility] LZQAK2466-09-00 13:55:13173Akyxwvpn HermannCHEM PANEL 2016-04-08 13:55:95471Xljjmste HermannCHEM GJLYG6199-94-82 13:55:73992Feoawaek HermannCHEM QXPXW5635-47-45 13:55:004.6[facility]annCHEM DMFQG7119-28-16 13:55:0019[facility]annCHEM NVMTQ6691-16-72 13:55:008.2[facility]annCHEM CAPXK0212-57-89 13:55:0014.6[facility]annCHEM DCEFD3500-88-29 13:55:002.0 [facility]annCHE[facility] PHAZD7433-00-57 13:55:003.5[facility] HermannHEMATOLOGY 2016-04-08 13:55:0031.9[facility] WeonnyvYOGQYXKMPO2413-54-86 13:55:0013.9[facility] NtuwkleAHMXAHDLMR2214-94-86 13:55:009.1[facility] OuafcggOQGSFTYIPS3082-67-86 13:55:26001Oyolxksf QxgiujmXLDMHFQQRF1883-87-59 13:55:003.79[facility] XPAGSXFXZJ9414-30-87 13:55:0011.5[facility] SppopnyTQZTNLGNEG3246-40-63 13:55:00 15.8[facility] RqmyhxoKPFHJYIXPG5674-68-16 13:55:00* Test Item Value Reference Range Interpretation Comments MCH (test code = MCH) 30.3 pg 27.0-31.0 [facility] CebddfyJZNFPISHOJ9664-57-83 13:55:0094.9[facility] HermannHEMATOLOGY 2016-04-08 13:55:0035.9[facility] WfiyroaUBEGJTBMBG0110-79-55 13:55:000.1[facility] OaaedfzGPWIMHMGTK8316-78-14 13:55:000.2[facility] IapirdqMNYNPKBFWE3144-68-37 13:55:001.2[facility] BjzagwyERXMFIRLCF5599-15-45 13:55:0011.6[facility] PYFINXKSMF9069-37-32 13:55:0079.2[facility] MqpxwowHPEXIQBAUP7263-73-79 13:55:00 1.8[facility] ChwfbncYTVZCEUGWD9718-13-92 13:55:007.6[facility]annHEMATOLOGY 2016-04-08 13:55:001.1[facility] TwwtuadJWIUOGPWAY0654-50-64 13:55:000.5[facility] RzwquqbTMZNFNQSGP0125-38-04 13:55:0012.5[facility] HermannCHEM CINPL2475-99-41 17:52:0025[facility]annCHEM LTEBF1722-95-69 17:52:001.88[facility] YUSDTKESTK3398-02-99 17:52:74251Anziuefq HermannURINE AND HUVQD3604-34-03 12:09:00Slight Cloudy (04/07/16 7:09 AM)[facility] SWUFH7327-82-51 12:09:00* Test Item Value Reference Range Interpretation Comments UA Spec Grav (test code = UA Spec Grav) 1.020 1 [facility] PGBWZ0763-00-90 12:09:00* Test Item Value Reference Range Interpretation Comments UA pH (test code = UA pH) 6.0 1 5.0-8.0 [facility] RDRKW8691-08-22 12:09:00Large *ABN*(04/07/16 7:09 AM) [facility] CRLQP7519-72-11 12:09:000.2[facility] AND YPOFP2762-61-83 12:09:00Negative *NA*(04/07/16 7:09 AM)[facility] LUIRT3082-10-39 12:09:00Positive *ABN*(04/07/16 7:09 AM)[facility] USGOS6996-79-94 12:09:00Negative *NA*(04/07/16 7:09 AM)[facility] MBGTF9709-12-44 12:09:00Large *ABN*(04/07/16 7:09 AM)[facility] SEAEV1830-48-38 12:09:00Yellow *NA*(04/07/16 7:09 AM)[facility]annCARDIAC XXGJHSZ9011-82-97 11:59:00<0.02[facility]annCARDIAC DCSRFWK0532-80-78 11:59:0091[facility]annCHEM AYJCE4364-70-61 11:59:001.9[facility] PIWHHJQWES0426-95-99 11:59:00* Test Item Value Reference Range Interpretation Comments PTT (test code = PTT) 25.2 s 22.9-35.8 [facility] ZgugskcJUOLBFETGF2050-69-91 11:59:00* Test Item Value Reference Range Interpretation Comments PT (test code = PT) 13.6 s 12.0-14.7 [facility] DfoecjkOTYJKWTQLO2519-30-10 11:59:001.01[facility] HermannHEMATOLOGY 2016-04-07 11:39:003.2[facility] FxerlshYIUNIANXUG3466-28-51 11:39:000.4[facility] PjwmxyzDDJDDWWHWZ8181-40-82 11:39:000.3[facility] HqtwzhiHZZNJWQWHL0083-70-12 11:39:000.4[facility] AfryjkwKQEGXKOTWH7786-09-55 11:39:0010.7[facility] DOEGJQUFBU5180-99-89 11:39:000.7[facility] EwpqgpyDOKUDGEDEJ0316-30-16 11:39:00 87.9[facility] YtywlvvKHYWAONNHD0449-51-52 11:39:008.5[facility]annHEMATOLOGY 2016-04-07 11:39:0014.0[facility] OgpdmccOPOPQPENUF1100-33-54 11:39:00* Test Item Value Reference Range Interpretation Comments MCH (test code = MCH) 30.4 pg 27.0-31.0 [facility] RaamlllMFENXZFSWR0057-43-50 11:39:0032.4[facility]annHEMATOLOGY 2016-04-07 11:39:0093.8[facility] HkmnsocDYESHZMVOI1770-14-45 11:39:004.00[facility] EfhzxqiHVIZTDKESP0661-91-36 11:39:0012.1[facility] IqqnyjfHCPOTBBABH3398-35-34 11:39:003.6[facility] TbotytjGHHXWIJPGI7581-07-63 11:39:0037.5[facility] HermannCHEM PZNDO9534-69-26 11:38:000.35[facility]annCHEM TJKUB4662-24-48 11:38:31444 [facility]annCHE[facility] URRRO3888-32-80 11:38:001.0[facility]annCHEM PANEL 2016-04-07 11:38:003.6[facility]annCHEM IVZPT2924-58-84 11:38:0048[facility]annCHEM BISUB8775-78-19 11:38:000.9[facility]annCHEM ASAVV6644-50-08 11:38:0056[facility]annCHEM EAKSH3857-65-87 11:38:003.3[facility]annCHEM MWJLM5484-29-03 11:38:009.0[facility]annCHEM QMNGD8618-25-80 11:38:009.3 [facility]annCHE[facility] EREIR3714-75-14 11:38:006.9[facility]annCHEM PANEL 2016-04-07 11:38:0025[facility]annCHEM BVKVM9767-07-68 11:38:0024[facility]annCHEM PAUUT9824-76-73 11:38:14231Aayybftx HermannCHEM HKPAK2414-15-12 11:38:26669Mihyrpax HermannCHEM GICMS5631-78-64 11:38:004.3[facility] HermannCHEM NHVFX1397-81-76 11:38:0045[facility]annCHEM AFKVT3671-90-27 11:38:70664 [facility]annCHE[facility] YJNCO2813-15-22 23:52:009.7[facility] HermannCHEM PANEL 2016-04-06 23:52:0026[facility] HermannCHEM PJMMB4845-82-25 23:52:95286Apiflepw HermannCHEM WNKTX1215-44-69 23:52:001.77[facility] HermannCHEM WDBHX2344-27-18 23:52:0047[facility] HermannCHEM ZWLCI4942-10-51 23:52:0015.1[facility] HermannCHEM PLPAZ7880-21-74 23:52:16680Onqexzjm HermannCHEM IIRCY8928-81-18 23:52:005.1 [facility]annCHEM XFJLT0647-62-81 23:52:0018[facility] HermannCHEM PANEL 2016-04-06 23:52:39267Facmwrdh HermannCARDIAC NQLWSYD3581-41-83 19:21:93656 [facility]annCARDIAC OLJVARM7887-42-38 19:21:001.2[facility] HermannCARDIAC EWRRXNN0539-45-08 19:21:00<0.02[facility] HermannCARDIAC JDZPCTD7468-75-03 19:21:001.2[facility] HermannCHEM RRBYT7514-21-87 19:21:0026[facility] HermannCHEM THFAU3935-19-25 19:21:26695Rjdqnbhu HermannCHEM LASDO4406-72-62 19:21:0037 [facility]annCHEM QEITP3178-80-67 19:21:003.6[facility] HermannCHEM PANEL 2016-04-06 19:21:0031[facility] HermannCHEM XCLPG8398-21-54 19:21:009.4[facility] HermannCHEM BQRCC8908-08-07 19:21:007.5[facility] HermannCHEM AAJXI0758-39-45 19:21:0018[facility] HermannCHEM EEOZA0289-73-01 19:21:001.80[facility] HermannCHEM APWFC7210-22-98 19:21:34479Amvoafut HermannCHEM ZLEUR3235-67-85 19:21:74072 [facility]annCHEM OVXTJ6616-50-72 19:21:005.8[facility] HermannCHEM PANEL 2016-04-06 19:21:0050[facility] HermannCHEM AVIVD1672-36-21 19:21:0028[facility] HermannCHEM RITKP7555-29-75 19:21:003.9[facility] HermannCHEM EOWGI6717-77-84 19:21:000.9[facility] HermannCHEM AIHLO6762-08-37 19:21:000.6[facility] HermannCHEM ANWLV1516-88-25 19:21:0015.8[facility] HermannCHEM QJAXV3057-85-70 19:21:64195 [facility] TpdrygmTYDACHBVLB2703-92-45 19:21:00See Note 1(04/06/16 2:21 PM)[facility] ZecwghgBVZFGQNGMU0381-86-90 19:21:0020.1[facility] VocrnagQBEBUCJNOL1941-20-56 19:21:0094.9[facility] TuqfsitFOSAPSZYYW0009-11-65 19:21:00* Test Item Value Reference Range Interpretation Comments MCH (test code = MCH) 30.9 pg 27.0-31.0 [facility] IyyplvmHHGJBOJFJV1994-01-26 19:21:0032.6[facility] HermannHEMATOLOGY 2016-04-06 19:21:004.29[facility] RcdeupcBEZHLUCLXU9494-19-62 19:21:0013.3[facility] ZetmlffQJPDAASHTH7990-53-22 19:21:0040.7[facility] RbuypidRTJIFBZRZL8780-35-05 19:21:0014.5[facility] EeesdjcUCDGKEDJKO9205-45-86 19:21:71942Cmufuwfc Jovani PEDEGUXSQQ8147-63-38 19:21:009.1[facility] GlkefobPRGHYVUEEN3093-18-77 19:21:000.9 [facility] ZzgipsaQYYDJPSKVI5444-05-49 19:21:007.7[facility] HermannHEMATOLOGY 2016-04-06 19:21:000.1[facility] NgexgusJZXTEWIRXN6296-11-94 19:21:000.2[facility] LcodmuvQKCCFFJYKK4267-53-07 19:21:001.5[facility] QjmxnxcQAPXIUHUQD6615-32-07 19:21:002.1[facility] AiyjyhuSRQQAJGFFX0806-35-14 19:21:000.4[facility] SKKXVLKMNC4630-49-96 19:21:0016.2[facility] OytquzvJFVXULFWOL1245-48-26 19:21:00 10.4[facility] UufbjkjZMGFKGPHWT2659-83-76 19:21:00Normal (04/06/16 2:21 PM) [facility] XmlzwdaZVLJBWONDY1390-79-97 19:21:00Normal (04/06/16 2:21 PM)[facility] BnrjtnxRELACACVSC8688-92-77 19:21:0080.6[facility]OL 2015-10-01 15:38:007[facility] GZEDP3638-76-70 15:38:00Small *ABN*(10/01/15 9:38 AM)[facility] ZFKQS5988-89-93 15:38:00Negative (10/01/15 9:38 AM)[facility] XJGEK3329-67-10 15:38:00Moderate *ABN*(10/01/15 9:38 AM)[facility] IQEHS3065-41-87 15:38:0018 [facility] BVGDW8643-12-71 15:38:00Negative *NA*(10/01/15 9:38 AM) [facility] SLGQJ6838-51-84 15:38:00Clear (10/01/15 9:38 AM) [facility] KFILZ5292-12-22 15:38:005.0[facility] JCEAT1804-50-20 15:38:001.014[facility]annCARDIAC EGSUBLY0919-76-92 14:53:00< 0.02[facility]annC[facility]AC VVDWNWD6533-93-97 14:53:0051[facility]annC[facility]AC HMAGKRW7331-17-55 14:53:000.8[facility]annC[facility]AC CYTTCYX9350-44-00 14:53:00 1.6[facility]annCHEM KAKRP3499-00-73 14:53:000.9[facility]annCHEM PANEL 2015-10-01 14:53:003.5[facility]annCHEM ZGJNP4990-20-17 14:53:0047[facility]annCHEM AZANI1605-84-49 14:53:0025[facility]annCHEM COEZW8669-45-29 14:53:86756Kzyiviln HermannCHEM NYJVD9329-01-40 14:53:21459Daovddkq HermannCHEM POEKT8985-81-77 14:53:004.0[facility]annCHE[facility] QNIDZ8225-68-60 14:53:0029 [facility]CHE[facility] YLFMZ4476-16-73 14:53:0012.0[facility]annCHEM PANEL 2015-10-01 14:53:0022[facility]annCHE[facility] NTAEX1378-73-23 14:53:06811Kqrzupah HermannCHEM EELFX9729-16-37 14:53:000.5[facility]annCHE[facility] HTDLX2844-78-37 14:53:003.3[facility]annCHEM FCTHA9406-66-56 14:53:006.8[facility]annCHE[facility] LXIPZ7756-87-16 14:53:0038[facility]annCHE[facility] RTVZR7898-08-52 14:53:0024 [facility]annCHE[facility] DVWEP4323-74-34 14:53:001.10[facility]annCHEM PANEL 2015-10-01 14:53:05835Tcsipnua HermannCHEM TLCXH9108-18-50 14:53:009.3[facility] GvezqpbSEWHKJYXJD2488-81-49 14:53:0091.7[facility] CyvxooxDOCJOIMQYV9827-42-52 14:53:00* Test Item Value Reference Range Interpretation Comments MCH (test code = MCH) 29.9 pg 27.0-31.0 [facility] QwrtsqzLYUAYYJPIE3238-01-73 14:53:0040.1[facility]annHEMATOLOGY 2015-10-01 14:53:0015.0[facility] DqaqdmiXDUTMYYQZW3024-24-74 14:53:09649Cridzeqa DtpnvieTDZRRFMUSH8685-14-56 14:53:0032.7[facility] DcofknaJFRXDSBMFZ2359-89-91 14:53:007.9[facility] UkbupzlISBOCIMMXK9497-60-49 14:53:004.37[facility] DKLMZJWJJS9820-59-45 14:53:007.5[facility] WsfhtuvBMXXDBSIRD6072-83-80 14:53:00 13.1[facility] UomhipfGVBLBQGHRH0358-16-20 14:53:000.1[facility]annHEMATOLOGY 2015-10-01 14:53:007.1[facility] AeushplCQTRYSGPBR7005-55-64 14:53:0028.3[facility] SwrnjvkOKZUUFMXWW5572-88-38 14:53:000.7[facility] GwzwvxiNGMUKVNISE5075-61-59 14:53:003.6[facility] WjxhvljYAKEKTBSMT6146-88-43 14:53:0060.3[facility] NQRAGBZWHA3576-54-71 14:53:002.1[facility] ZkwmnyiOORBOCOYUV4901-52-95 14:53:000.3 [facility] HcbcluoIWIPTQTAAZ2352-59-48 14:53:004.5[facility]annHEMATOLOGY 2015-10-01 14:53:000.5[facility] QUCOD0431-36-00 15:21:009 [facility] TVDUD6754-63-90 15:21:0035[facility] YFAQF4319-30-02 15:21:00Negative (09/22/15 9:21 AM)[facility] STOOL 2015-09-22 15:21:00Small *ABN*(09/22/15 9:21 AM)[facility] ST[facility]OL 2015-09-22 15:21:00Moderate *ABN*(09/22/15 9:21 AM)[facility] ST[facility]OL 2015-09-22 15:21:00Negative *NA*(09/22/15 9:21 AM)[facility] 2015-09-22 15:21:005.0[facility] VQLNV6153-17-15 15:21:00Slight *ABN*(09/22/15 9:21 AM)[facility] ZINDU4171-29-09 15:21:001.018 [facility] UWOQT2357-39-77 15:21:00Yellow *NA*(3/3/16 9:21 AM) [facility]annCHEM ZVXGZ4430-17-18 15:02:002.5[facility] HermannCHEM PANEL 2015-09-22 15:02:002.3[facility] HermannCHEM HVWPB1396-27-87 15:02:25654Hspugivj HermannCHEM SGAQT9388-93-55 15:02:78286Ymgiczwv HermannCHEM CGGFA8673-02-67 15:02:004.7[facility]annCHEM OLSXY5831-66-32 15:02:008.6[facility]annCHEM DGRBO6840-62-90 15:02:0025[facility]annCHEM YQQMS3241-11-41 15:02:003.1 [facility]annCHEM QNDOO1811-55-03 15:02:006.4[facility] HermannCHEM PANEL 2015-09-22 15:02:0032[facility]annCHEM KHRDN0421-25-34 15:02:0044[facility]annCHEM LRPXB8292-29-28 15:02:67104Qahamrjy HermannCHEM WHMVP2809-97-89 15:02:001.31[facility]annCHEM CEANB1152-59-34 15:02:54514Aharovkv HermannCHEM QHGJJ3725-16-01 15:02:0041[facility]annCHEM DLTUF8447-31-06 15:02:0038 [facility]annCHEM ZJZQJ7578-46-49 15:02:000.6[facility]annCHEM PANEL 2015-09-22 15:02:003.3[facility] HermannCHEM ALSRY5379-56-75 15:02:000.9[facility]annCHEM JTTBA4238-73-02 15:02:008.7[facility]annCHEM QCTTP8904-82-58 15:02:0031[facility] CovssevLITECAMFHV1515-12-61 15:02:000.4[facility] BEWLVQIIMC3274-33-25 15:02:004.0[facility] GiznqagLENBEHIHFP3096-06-95 15:02:000.3 [facility] YdejctcFOVLYRPUVU6720-77-52 15:02:000.2[facility] HermannHEMATOLOGY 2015-09-22 15:02:008.2[facility] QloefouZANVLYYIBS4698-74-72 15:02:000.5[facility] WuhhnmzFOXDPQMNRZ1043-24-36 15:02:005.8[facility] QxvjvvuXFXHPJPFYG3750-77-38 15:02:0089.7[facility] RaydvvrSTQUVKNUVI1565-77-82 15:02:00* Test Item Value Reference Range Interpretation Comments PTT (test code = PTT) 32.2 s 22.9-35.8 [facility] GmvpxafTSFAEWDCHX4704-40-10 15:02:00* Test Item Value Reference Range Interpretation Comments PT (test code = PT) 14.6 s 12.0-14.7 [facility] ChaewowMDPXDMYIHR4623-86-37 15:02:001.11[facility]annHEMATOLOGY 2015-09-22 15:02:31262Dfhyvyap EvavodqKIXEZJPNUS3766-08-19 15:02:008.5[facility] PfeoxriUQZVNRMUMC4303-11-19 15:02:0032.8[facility] WgkcdjaQINBCPFHOW3128-07-43 15:02:0014.8[facility] DajfnvfNOZTPOELDV9538-23-58 15:02:004.80[facility] DNOGRYXTLR9001-03-65 15:02:0014.4[facility] AeslnhgAJAPDSFHHL5817-05-44 15:02:00 9.1[facility] WamfkgzQGSXRQXNWI2835-85-48 15:02:0091.7[facility] HermannHEMATOLOGY 2015-09-22 15:02:00* Test Item Value Reference Range Interpretation Comments MCH (test code = MCH) 30.0 pg 27.0-31.0 [facility] FsitjhbKUXPLXATCF6783-07-22 15:02:0044.0[facility] HermannCHEM PANEL 2015-05-02 19:38:0030[facility] HermannCHEM OIZQD5047-44-86 19:38:000.5[facility] HermannCHEM CVXBG6413-95-01 19:38:46574Gtysaoud HermannCHEM OKTTG8287-14-15 19:38:000.9[facility] HermannCHEM XUOKS3783-65-23 19:38:0039[facility] HermannCHEM CWRRY1635-44-04 19:38:0039[facility]annCHEM VKWUP1651-10-20 19:38:003.6 [facility]CHE[facility] CIQHH8711-77-24 19:38:003.4[facility]annCHEM PANEL 2015-05-02 19:38:007.0[facility]annCHEM TBYSN4896-38-49 19:38:0031[facility]annCHEM WQAPO8814-40-17 19:38:0011.9[facility]annCHEM GPLVF4067-91-48 19:38:0021[facility]annCHEM SIMLU8806-84-83 19:38:001.6[facility]annCHEM MAZZM9564-83-49 19:38:0049[facility]annCHEM RXNTF8341-68-86 19:38:0098 [facility]CHE[facility] YYSTX5473-17-97 19:38:60896Asoossej HermannCHEM PANEL 2015-05-02 19:38:38463Nngatzei HermannCHEM UYWEY6991-46-16 19:38:009.2[facility]annCHEM WZBMS2719-60-67 19:38:005.9[facility] QjqemhzZJVYFXMJZD3440-97-79 19:38:000.2[facility] UvtwvebYAFOEQSSCU3588-18-60 19:38:000.1[facility] LTPSCVGMWY2750-59-85 19:38:002.4[facility] HbiigtvNZXHXOTEFC9102-00-17 19:38:000.6 [facility] CompxqbFUTXXJQVYU7459-28-31 19:38:0059.8[facility] HermannHEMATOLOGY 2015-05-02 19:38:0030.2[facility] TgmptqiZGEEOMNBNJ9466-35-63 19:38:007.1[facility] YbxqizlKTAYEFENUV5248-86-25 19:38:002.0[facility] AozdmoaLKGRRGXPPN5987-02-34 19:38:000.9[facility] MtuvihxWDOZHERRXT9118-15-38 19:38:004.8[facility] WBAWZXGGEH9217-07-39 19:38:008.6[facility] MloabcvBAVOAWAUKS7493-38-76 19:38:00 96.6[facility] GrhrslmPGWRURLSQX3104-79-06 19:38:0013.4[facility] HermannHEMATOLOGY 2015-05-02 19:38:004.36[facility] GaatygzIKVSONZWPA5328-64-13 19:38:008.0[facility] TtiubhyJFDXRILLQZ8410-58-99 19:38:0031.9[facility] JjlsnlzMZCFYCJEKQ4373-82-02 19:38:0015.3[facility] WsrbswiQGWAQNYMCC6091-00-28 19:38:0042.1[facility] PESSQFMLNJ0177-99-43 19:38:94274Gvvsskbu SykykeaEREOXYESAH8396-97-44 19:38:00* Test Item Value Reference Range Interpretation Comments MCH (test code = MCH) 30.8 pg 27.0-31.0 [facility] SrrsluaYEKIDIQPUQ0475-62-70 19:38:001.02[facility] HermannHEMATOLOGY 2015-05-02 19:38:00* Test Item Value Reference Range Interpretation Comments PTT (test code = PTT) 34.8 s 22.9-35.8 [facility] KtojusdOCAGJSGQJX8762-42-40 19:38:00* Test Item Value Reference Range Interpretation Comments PT (test code = PT) 13.7 s 12.0-14.7 [facility] NzimrauICGIBRTKQEYY7953-94-70 10:20:0013.3[facility] HermannELECTROLYTES 2015-02-28 10:20:85292Srryyfpc LtfonnmWFUDJYCMDAYQ8447-04-00 10:20:0032[facility] ImsfxpnSMRXZRHCYFLB3675-17-93 10:20:001.2[facility] XhukdxcEQPOUNGDVSMK8849-28-04 10:20:11204Crutbaci TvmjubzLTAEXUCKQMYH1457-41-46 10:20:004.3[facility] DFJGNFXFIPHE7028-88-48 10:20:0023[facility] PgabgicFMJQCOUEZRHK9426-95-38 10:20:00 9.4[facility] BxkeduaUHAQLPMGNPIT2464-14-42 10:20:17135Qnsfnapg [place] KFNXENGXTKVY4280-15-17 10:20:0042[facility] BtvfbenPTMWUCCNER5601-06-07 10:20:00 1.2[facility] MedyosiEIGQQNYFWO1939-62-07 10:20:000.6[facility] HermannHEMATOLOGY 2015-02-28 10:20:000.1[facility] ZsnhqppEPGSSFHMKE6405-30-34 10:20:004.7[facility] XrowqocWJPSWISXXU6609-89-67 10:20:0011.8[facility] LctmzfaYKLGXHXRYV8146-09-42 10:20:0086.7[facility] SxbnrudDTJKZGNZEA7711-40-49 10:20:008.5[facility] UBUORVLFMG6004-56-23 10:20:0033.0[facility] JbmaaiwHCBDPZUNVA8558-97-78 10:20:00* Test Item Value Reference Range Interpretation Comments MCH (test code = MCH) 31.0 pg 27.0-31.0 [facility] UyfjjvuLYCNIVLHAN1783-50-85 10:20:008.3[facility] HermannHEMATOLOGY 2015-02-28 10:20:88686Kegrexej BohdvqzOLPGLGWKNZ9685-99-26 10:20:0014.3[facility] BjeaqyrFRIYECGBXX6757-02-80 10:20:0039.5[facility] QtqgmkeDAVCWAENVN5654-47-88 10:20:0013.0[facility] VmxvkvgODLRKMRAKT8337-34-74 10:20:004.19[facility] ZGKQCMOMZK2433-09-85 10:20:0094.2[facility] JkwgdhyERNQZKGLOR2556-40-15 10:20:00 13.6[facility] HermannCARDIAC KOYDDEM8246-21-31 00:00:06623Avghwszv HermannCARDIAC PENXZEN5601-27-37 00:00:00<0.02[facility] HermannCARDIAC JGIJVKF3473-47-23 00:00:001.7[facility]annCARDIAC HNSIZFV4405-09-60 00:00:001.3[facility] CARDIAC MFTSUME2841-71-21 17:43:98454Vdraxcvw HermannCARDIAC PKJSWUN3305-98-80 17:43:001.6[facility]annCARDIAC EHFFNXO3013-86-20 17:43:00<0.02[facility]annCARDIAC EMWSPCW3273-92-45 17:43:001.1[facility] HermannCARDIAC ENZYMES 2015-02-27 12:23:00<0.02[facility]annCARDIAC QYGQJGK2624-31-34 12:23:0096 [facility]annCARDIAC NEFGACU1475-56-31 12:23:001.5[facility]annCARDIAC IDAUYXA2739-56-79 12:23:001.6[facility]annCARDIAC IFUEPSA6705-26-85 07:01:00 46[facility] HermannCHEM SMKXI0967-05-68 07:01:009.0[facility] HermannCHEM PANEL 2015-02-27 07:01:98325Uudvogxx HermannCHEM ZEUOH3082-37-45 07:01:74269Mkujebck HermannCHEM LYDOH1090-84-07 07:01:004.1[facility]annCHEM EJYSQ0236-45-76 07:01:0039[facility]annCHEM LAIBK5766-23-81 07:01:001.3[facility]annCHEM MAMYT9332-14-79 07:01:0022[facility]annCHEM LOAXY8763-37-52 07:01:48489 [facility]annCHEM MBBNN5024-88-01 07:01:0034[facility]annCHEM PANEL 2015-02-27 07:01:001.0[facility]annCHEM VMQTZ3306-39-13 07:01:000.3[facility]annCHEM LATMA2362-17-16 07:01:0014.1[facility]annCHEM KBEQC1862-21-77 07:01:0026[facility]annCHEM BRXGD1121-91-49 07:01:003.6[facility]annCHEM NGATQ3835-06-87 07:01:0037[facility]annCHEM GTFLY8911-43-63 07:01:83610 [facility]annCHE[facility] THXEG5856-13-54 07:01:007.2[facility] HermannCHEM PANEL 2015-02-27 07:01:003.6[facility] HermannCHEM HHNOL7166-82-10 07:01:0038[facility] JhcdtznIRSDFCWJEW3977-77-47 07:01:000.2[facility] CejhpdkOCVBECJVNO9518-75-13 07:01:000.1[facility] CfezmigFWBJQBMLPE7128-60-79 07:01:006.3[facility] QAAHWCWTBS4007-90-68 07:01:000.9[facility] PeipmxtSZYTZUEYGG2280-08-31 07:01:000.8 [facility] ZkqoydiTBNUWAYZUK9167-44-79 07:01:002.3[facility] HermannHEMATOLOGY 2015-02-27 07:01:0023.8[facility] MzdimpkUYNONJOSGI1211-41-70 07:01:007.9[facility] OuzxgtqHATBFYNZMJ0269-66-05 07:01:002.1[facility] IwldzcdPBAXVGKEIE2490-13-38 07:01:0065.3[facility] ZmxeapiGOBPUTLWDE4023-20-51 07:01:009.6[facility] OHSAPESELF4730-56-11 07:01:004.68[facility] YbgrdnaIMQWMRVQNL5635-69-06 07:01:00 8.2[facility] LqqwsjzNMYFMOXUTM3016-37-26 07:01:33495Sawhsayq HermannHEMATOLOGY 2015-02-27 07:01:0093.8[facility] UioetwrAKZBAISJUY4341-85-55 07:01:0014.7[facility] BmumonaIHKICFRWKJ2959-91-24 07:01:0043.9[facility] OvkrkptNAZTMFUFOS6476-71-37 07:01:0033.5[facility] UwwvmioMHKJKSOLVK0615-89-08 07:01:0014.2[facility] NZSHUACBHE4983-50-37 07:01:00* Test Item Value Reference Range Interpretation Comments MCH (test code = MCH) 31.4 pg 27.0-31.0 [facility] ZgjvyanUNWCSVWNJH6087-85-67 07:01:00* Test Item Value Reference Range Interpretation Comments PTT (test code = PTT) 38.0 s 22.9-35.8 [facility] LjorfuwGGLQGUFSMF0063-20-53 07:01:000.94[facility] HermannHEMATOLOGY 2015-02-27 07:01:00* Test Item Value Reference Range Interpretation Comments PT (test code = PT) 12.5 s 12.0-14.7 [facility]annCARDIAC QIYPJQD0834-66-23 16:22:000.8[facility] HermannCARDIAC ZRSOXBL0531-93-00 16:22:97412Kdqfmrlw HermannCARDIAC OPAFDCE0380-23-38 16:22:00 0.9[facility] HermannCARDIAC XMNLDIL0158-88-54 16:22:00<0.02[facility] CARDIAC MIVZMGG9606-74-31 16:22:0061[facility] ZitidhyMEXSEOSTOIHA7787-53-04 16:22:91834Pojtasjq FqqktiyIGXIIJEDSWVS7415-34-55 16:22:38545Ziqqlhfc [place] MLRXEVTOIRDJ8077-97-08 16:22:004.6[facility] HnfkuicVQJIDOTTWKSG9031-14-14 16:22:004.1[facility] PjoczmbDMVQUVVTZZOG6984-71-71 16:22:000.8[facility] UKZLDZMWKWBH3004-25-96 16:22:0047[facility] CqofolwMHAINBEIVBQG9625-77-24 16:22:00 8.7[facility] ZzomugyAZVKEDJPNGNV7080-52-25 16:22:007.4[facility] JVCJAMZAJCVI7645-14-12 16:22:0044[facility] HcrteanTEKJJLRXCOZS0443-51-67 16:22:00 3.3[facility] XhsvtsbBDSKKCKNQIBH5926-45-92 16:22:0031[facility] HermannELECTROLYTES 2014-10-10 16:22:001.1[facility] RtoyrkdJCQJDBLQXPBV3489-28-16 16:22:0017[facility] KwooibcTQATMWHLZWQO4737-08-16 16:22:0025[facility] DrnqiblABVAUPANTBHG3929-34-14 16:22:16711Rfgjvafr YslpsxcKWFQWQSCUIJM2277-14-78 16:22:28526Dhitmxmk [facility] HROHCDSBTKQP8469-95-31 16:22:000.6[facility] JdsacybJCFKRKIBNTFJ5616-14-88 16:22:0011.6[facility] HdwgsevDVGQCUHQWZVE0662-25-45 16:22:0015[facility] QNDIITNUYK7131-29-78 16:22:000.1[facility] EaofooaSGBQWKXDIA3501-08-92 16:22:000.2 [facility] RpyfmwaAVDCUYPLQT8972-24-85 16:22:000.5[facility] HermannHEMATOLOGY 2014-10-10 16:22:004.5[facility] AshomkkPBIZNZVYOV5892-49-16 16:22:002.2[facility] OgwbnjoNXMQAPKLXI6087-63-81 16:22:000.9[facility] WgkfqquCPBMJAIDFR3172-84-94 16:22:006.4[facility] GdpzpmyIEXVVOZRZR2323-64-07 16:22:002.0[facility] GYUQFJDXHP1751-08-83 16:22:0061.1[facility] LpvxrmyGXHUTYGIGY3391-87-70 16:22:00 29.6[facility] LmhlzyaTVEOSVHELH7840-74-04 16:22:00* Test Item Value Reference Range Interpretation Comments PT (test code = PT) 12.7 s 12.0-14.7 [facility] GkshfusMQAIELEBFL5634-90-77 16:22:00* Test Item Value Reference Range Interpretation Comments PTT (test code = PTT) 36.4 s 22.9-35.8 [facility] WvwvqjmRBEQPGKXGZ9759-46-53 16:22:000.95[facility] HermannHEMATOLOGY 2014-10-10 16:22:00* Test Item Value Reference Range Interpretation Comments MCH (test code = MCH) 30.9 pg 27.0-31.0 [facility] JacubtcOMQXOVDYFO4002-50-53 16:22:0032.7[facility] HermannHEMATOLOGY 2014-10-10 16:22:0014.1[facility] AfkflklTEQEUOKOKZ7962-28-53 16:22:62131Qmitisam NztuztiQFJRJNUCHC8072-93-09 16:22:008.4[facility] BxrsnzxJJUDPEGXVE5003-14-86 16:22:0014.5[facility] SgazkvxVGOWXRSXNU9145-40-62 16:22:0044.4[facility] TZMZHKSKMU4876-46-55 16:22:007.4[facility] SzcqymvBKQJYOUNWK2214-81-05 16:22:00 4.70[facility] VnkecdzEREYLNAGKG3069-51-89 16:22:0094.4[facility] HermannCARDIAC RDGOFKZ9011-90-48 18:13:001.3[facility] HermannCARDIAC UXEWBYH5031-97-29 18:13:00< 0.02[facility] HermannCARDIAC FUTAHAE4615-03-13 18:13:001.4[facility] HermannCARDIAC ZHCEANO0130-69-75 18:13:58055Uteixmkv HermannCHEM FTIRJ2728-41-39 18:13:0048 [facility]annCHEM UPDJQ3658-42-11 18:13:73594Ardtovxb HermannCHEM PANEL 2014-05-16 18:13:76545Yknvhrdm HermannCHEM ZTBRS3492-78-38 18:13:15602Wyuwbbyz HermannCHEM SIDHT1397-74-85 18:13:004.3[facility] HermannCHEM SPVLK4168-36-55 18:13:001.1[facility] HermannCHEM QNHRZ0040-74-06 18:13:0030[facility] HermannCHEM MQZKV2911-19-44 18:13:003.5[facility] HermannCHEM DOUWW8882-48-39 18:13:009.0 [facility]annCHEM KZRSX4528-20-22 18:13:0024[facility] HermannCHEM PANEL 2014-05-16 18:13:0027[facility] HermannCHEM VVEHE2443-90-42 18:13:0013.3[facility] HermannCHEM XCCMF1508-83-03 18:13:003.7[facility] HermannCHEM BTRXL3247-69-21 18:13:000.9[facility] HermannCHEM HHBIC0478-13-21 18:13:0048[facility] HermannCHEM FQURE5242-95-20 18:13:007.2[facility] HermannCHEM SDTEN4853-37-86 18:13:68820 [facility]annCHEM DQTFB2426-24-64 18:13:0036[facility] HermannCHEM PANEL 2014-05-16 18:13:000.5[facility] FcyftosEQTQMYRQGK0836-81-59 18:13:009.8[facility] WeaanrvNOUYQFCYYV3267-13-40 18:13:002.5[facility] XrrsetrVHQMOLSXBA0959-97-76 18:13:000.2[facility] QoerjjfIAATIGNMML4354-86-78 18:13:000.1[facility] REOSMUSWNB6349-01-48 18:13:000.8[facility] RtgvbeuVOWIUIEFER4489-49-88 18:13:006.1 [facility] ByrcvbmRFHOYSBVFS6084-67-99 18:13:001.1[facility] HermannHEMATOLOGY 2014-05-16 18:13:000.8[facility] QnzrsbjOPECHWZPCV2551-72-31 18:13:0073.3[facility] BaamrddCEQPNDRSDH3572-28-80 18:13:0018.7[facility] VpptkeqMNDARQLJMK8652-28-04 18:13:000.46[facility] PyhvrqjYBCEDFGWWM5586-69-01 18:13:00* Test Item Value Reference Range Interpretation Comments PTT (test code = PTT) 35.5 s 22.9-35.8 [facility] TohmdfrMVELDJRRII4030-19-24 18:13:00* Test Item Value Reference Range Interpretation Comments PT (test code = PT) 12.8 s 12.0-14.7 [facility] DxfbijgCSOKOSGSQU5012-44-49 18:13:000.96[facility] HermannHEMATOLOGY 2014-05-16 18:13:0014.1[facility] ShgrwbfEKZAHOJDWH5608-07-24 18:13:008.1[facility] WjomvhjOSGOMVQKSD0186-83-46 18:13:18192Smunxwns MdwonlaSUVEGAOHIC0170-11-97 18:13:0094.2[facility] HolrxjeIZWTWPTWSQ7849-72-66 18:13:00* Test Item Value Reference Range Interpretation Comments MCH (test code = MCH) 30.6 pg 27.0-31.0 [facility] TqgafdmKDBWSAOHPR3813-92-19 18:13:0032.4[facility] HermannHEMATOLOGY 2014-05-16 18:13:004.68[facility] HkmovdfBTJWFJBHGE8784-37-70 18:13:0044.1[facility] HqpelpoNYASZNBZBL9453-36-40 18:13:0014.3[facility] VzseuarFAGVTJODQK6863-63-65 18:13:0013.4[facility] HermannBEDSIDE GLUCOSE PLBBKRR6602-54-18 16:40:00>400 [facility] HermannBEDSIDE GLUCOSE YJRAXGP5781-54-24 16:38:00>400[facility] BEDSIDE GLUCOSE FVNCEXJ6842-36-18 12:13:09131Urtafhtu GvqcoxmUDRGIVEQN8832 08:29:97337Ovcjxghj DemoxrnBETWYORTD2078-54-60 08:29:0015.1[facility] KUKIDWMEV0903-07-94 08:29:0025[facility] BkjqxkcNCSQSMLVV5316-13-27 08:29:0029 [facility] KsjozmeZXQIWJIIP5473-78-38 08:29:90188Xcasrcch HermannCHEMISTRY 2013-01-09 08:29:0033[facility] OndfgfjAHKNXUUDX2830-96-26 08:29:008.8[facility] FgnfelmRMAOEWJNF9641-66-00 08:29:52527Ssshrqik OhobteqZUHGTLLPC7305-90-04 08:29:004.1[facility] BipemwjNJUBKFNDY9622-38-48 08:29:91474Lgxnjnqv [place] MMKGSGRTG7720-88-61 08:29:001.5[facility] YhskoolFTJBFFLXXP7249-22-98 08:29:008.7 [facility] LbypenwIDNAMVZHDH4711-21-06 08:29:003.66[facility] HermannHEMATOLOGY 2013-01-09 08:29:0097.3[facility] EmcbuttVTACIKXZJP5790-31-27 08:29:00* Test Item Value Reference Range Interpretation Comments MCH (test code = MCH) 34.5 pg 27.0-31.0 H [facility] AmitbmoGAFJDVKNDN7332-65-94 08:29:0012.6[facility] HermannHEMATOLOGY 2013-01-09 08:29:0035.6[facility] TmmwzioDXVBKNZYIL3836-21-67 08:29:91539Xymnczhx AfnruxaDIWCCGXHER7461-43-29 08:29:0014.0[facility] WrcqikhBEYYQXQFTZ4639-79-14 08:29:0035.5[facility] WzhebidJGYLJWYOLL0282-16-76 08:29:0011.1[facility] IJBQZPUVFY1732-13-71 08:29:000.9[facility] GowjhimBTUNWUUCOC1642-17-22 08:29:000.0 [facility] KbatsijYKDROJJUEF1663-96-63 08:29:000.0[facility] HermannHEMATOLOGY 2013-01-09 08:29:000.0[facility] DsypbclIXZUSUYRQD5532-90-97 08:29:0010.2[facility] OamooquCVPJHACRKG8892-31-87 08:29:007.9[facility] LmxtiuaJJJOXBRHSS1769-22-06 08:29:000.4[facility] YpecsygVLFNLWWWZS5627-89-75 08:29:000.0[facility] HWXXSVMEPX3357-29-56 08:29:000.0[facility] KdhpnstUFGYLZDZAS0725-63-07 08:29:00 91.7[facility] RarhpjmWPFJBDHPB0359-50-33 21:47:38068Eklynrrn HermannCHEMISTRY 2013-01-08 07:07:001.2[facility] LjuaqffOTYQOYVTG6312-95-36 03:30:00<1.1[facility] YtcqrmmGYTAPICUJ1327-39-70 03:30:00<0.5[facility] CxwkklqUZBANFUDT0594-44-49 03:30:54050Nripsmjy UhvmyauRTMKFJICK3352-49-99 03:30:003.9[facility] SQGNSIVKH2034-23-52 03:30:55152Ifsplmrc DphsywzHJOXEJIJS6050-34-38 03:30:0061 [facility] YdmslesLVYSGSZXB3205-79-96 03:30:000.9[facility] HermannCHEMISTRY 2013-01-08 03:30:0059[facility] DjjnemaTBFRQHZSB6935-88-55 03:30:0013.9[facility] JbjkchmQXRWIAEWS7399-33-19 03:30:003.5[facility] PodxconEQVRCRPMP5224-08-07 03:30:0020[facility] PklqcniLKYGIDYQT1940-97-10 03:30:000.4[facility] BQIZMUJCG1016-06-52 03:30:58453Ykwwnhed AuznyijQGNIPAGVI6076-19-57 03:30:003.2 [facility] FtpopytDKPFJHXXK8637-18-02 03:30:0057[facility] HermannCHEMISTRY 2013-01-08 03:30:006.7[facility] PrnfsqzOYWGXDRWG2617-79-53 03:30:0028[facility] WitfrzeZLMXHVMEM6641-74-22 03:30:0018[facility] UzcyaacGCTVXJBBQ6150-66-80 03:30:009.0[facility] JquaqiqDNOHCHYML1608-70-14 03:30:000.9[facility] XSAVYGSOX7626-90-56 03:30:0044[facility] LbrvkiwNCBAYQEJE6183-63-62 03:30:00<0.02 [facility] QkawadfBOTAGXLWAL1103-70-00 03:30:00* Test Item Value Reference Range Interpretation Comments PT (test code = PT) 12.9 s 12.0-14.7 N [facility] UtyjxxgOYDVBFIAGK7445-53-09 03:30:000.95[facility] HermannHEMATOLOGY 2013-01-08 03:30:000.56[facility] CmdmhglCDATLWLRDN5352-30-91 03:30:00* Test Item Value Reference Range Interpretation Comments PTT (test code = PTT) 35.4 s 22.9-35.8 N [facility] BelydbdHIRHNKJAB9657-40-89 01:26:0068[facility] HermannHEMATOLOGY 2013-01-08 01:26:000.5[facility] JweywnxMCGTWIODFE3645-84-64 01:26:002.3[facility] RqnctkwFONQYLPTFJ4806-00-50 01:26:000.7[facility] UcfcxyzWYIRTPEKTZ6178-10-22 01:26:000.2[facility] TdqjfgdZEVCBSHHUJ1230-23-39 01:26:002.4[facility] EKFDSVQNTV5647-69-00 01:26:005.2[facility] EmeigzaJHVDSMFLHZ2835-93-83 01:26:000.1 [facility] ZgrlrxoZHIOTXAXAM7368-97-79 01:26:0062.5[facility] HermannHEMATOLOGY 2013-01-08 01:26:0028.2[facility] PbkegfmZLLEOAHGVW7357-46-74 01:26:006.2[facility] ChveotoRDKLPXRJQE4672-69-34 01:26:008.8[facility] FutnlrkEKOENFVIOI7382-25-99 01:26:88439Apccnyfe PombkisNVSJHXQSUX8530-21-50 01:26:008.3[facility] RNZHGLZHOA1852-58-77 01:26:0033.7[facility] KhvuccuWMALVGLUBZ8238-73-76 01:26:00* Test Item Value Reference Range Interpretation Comments MCH (test code = MCH) 31.6 pg 27.0-31.0 H [facility] KmlmushNJLVTNKLBK4353-11-91 01:26:0014.9[facility] HermannHEMATOLOGY 2013-01-08 01:26:004.18[facility] RbwsytzRBZBORQAWW7123-38-72 01:26:0013.2[facility] CdhjgvqUWHXNMMYLI1527-33-53 01:26:0093.9[facility] TzffnkeDQPJJGKDPM7987-74-98 01:26:0039.3[facility] VexmucaESKMKGDFH1700-26-40 01:25:0037.0[facility] TFYIJWGUI1968-22-87 01:25:00Positive (01/07/2013 20:25:00) [facility] VMRGKJXYC9955-14-78 01:25:00Left Rad (01/07/2013 20:25:00) [facility] HOBMJRAMD3973-58-80 01:25:007.46[facility] SxasypqWRVGLRUKZ1416-38-21 01:25:0028 [facility] ElxreopZETCLGPKY2815-52-30 01:25:004[facility] DzpihxaMWAIPNKFX3807-02-90 01:25:0040[facility] QoqgwlvLAXMKRGOS8873-09-88 01:25:0081[facility] RSFJMYSKP8512-56-98 01:25:0096.5[facility] TmmwbpdXSPMSLOWHX4569-14-27 01:20:00<1 [facility] FztrldfMWHSISFGRB7240-98-31 01:20:00Few /LPF *NA*(01/07/2013 20:20:00) [facility] RzgmtgwGLUIGHAFSO4100-36-65 01:20:00Negative (01/07/2013 20:20:00) [facility] DegrrpfDYVBBVYBYS9361-97-35 01:20:00Negative (01/07/2013 20:20:00) [facility] RvypzhzPEEMCHBUDJ7264-74-54 01:20:00<1[facility]IS 2013-01-08 01:20:00Negative mg/dL *NA*(01/07/2013 20:20:00) [facility] [place] YFTCOKHWHB5511-61-53 01:20:0050 mg/dL *ABN*(01/07/2013 20:20:00) [facility] OybelndQGKZUVQRFJ9351-51-44 01:20:00Negative mg/dL (01/07/2013 20:20:00) [facility] WhngqhyZLFKDVPHDL8536-95-80 01:20:00Negative (01/07/2013 20:20:00) [facility] HvjqiekPFNNDZHEBT6093-45-79 01:20:00Negative *NA*(01/07/2013 20:20:00) [facility] GszuoqiRNWKCWTANG3014-82-62 01:20:00Clear (01/07/2013 20:20:00) [facility] AearuhzEFZQISXRZX4393-65-03 01:20:006.0[facility]annURINALYSIS 2013-01-08 01:20:001.013[facility] HermannBEDSIDE GLUCOSE EZICCTI8655-61-46 19:19:00>400[facility] MtqyulyNWYJYJLNM2443-37-85 17:49:80510Ehqtophc [place] BEDSIDE GLUCOSE HQQOSEE6395-25-16 17:09:00>400[facility]annBEDSIDE GLUCOSE UYPBRCK8820-31-85 12:02:54447Mjcdydsv NgwtzjeWTWKPGSKH6996-88-32 11:58:004.2 [facility] LvargwrDMJLEJZST6482-68-07 11:58:05318Ibbxpfns HermannCHEMISTRY 2012-09-03 11:58:77962Hrdbyasu UnojhkfJLSKTYHGN0784-03-70 11:58:0048[facility] XouczepTETQTWYWA9256-60-12 11:58:009.1[facility] XhmarpiAXYPZQTMZ4278-00-65 11:58:0014.2[facility] HfwjombFTLQVPMRS8459-68-37 11:58:0027[facility] [place] MRVLKCAEK5580-56-43 11:58:0024[facility] IpywiqiKOZEDTGBH5350-23-38 11:58:58090 [facility] FjulevqASQBKNQIQ4170-35-38 11:58:001.1[facility]annHEMATOLOGY 2012-09-03 11:58:007.7[facility] YlvmghoEHNGGRFLVO8686-40-76 11:58:000.2[facility] RedsmfaFYEVQGBOAM6474-31-85 11:58:001.2[facility] CsvhyxsYIJSCUKRWN3751-76-33 11:58:000.0[facility] SgqwrdxPPGANYDDUG3950-79-63 11:58:000.0[facility] [place] OLGPYUNNIJ1658-62-70 11:58:000.1[facility] UfgdhihBACGBQEHJW6109-97-67 11:58:001.2 [facility] VuaoviySTDLNFQARW3557-43-20 11:58:0012.9[facility]annHEMATOLOGY 2012-09-03 11:58:00Normal (09/03/2012 05:58:00) [facility]annHEMATOLOGY 2012-09-03 11:58:000.0[facility] PrnuzzgOKFSBHBIPD1595-06-37 11:58:0085.7[facility] WwebaafXUUIPIGIIV6517-38-96 11:58:00Normal (09/03/2012 05:58:00) [facility] UuoiephQKYNUPTJPR7653-09-91 11:58:008.1[facility] PjrccyyABVWOPJZNU5638-10-65 11:58:52529Psvyhzor SizmqlqFHYWCMUXCZ3840-36-64 11:58:0013.9[facility] [place] VVWLWGXTYM5248-42-27 11:58:004.24[facility] VsrwivzJEQCACQXFO4558-96-39 11:58:00 9.0[facility] IaaazjdANVJLTPNLK4665-91-54 11:58:0033.7[facility] HermannHEMATOLOGY 2012-09-03 11:58:0093.2[facility] SrrdueaJOYPBLRSPL4720-88-30 11:58:00* Test Item Value Reference Range Interpretation Comments MCH (test code = MCH) 31.4 pg 27.0-31.0 H [facility] BjpwxhuCRTTQINSAI2257-08-16 11:58:0013.3[facility] HermannHEMATOLOGY 2012-09-03 11:58:0039.5[facility] EeqehcxOXWRUJPUC4947-15-58 03:43:96504Rhqrutsb FiefgyeQWOPGYPZSD2017-03-20 22:53:00Occasional /HPF *NA*(09/02/2012 16:53:00) [facility] AvlsrxwTGRVWVGBCR1554-64-81 22:53:005.0[facility]annURINALYSIS 2012-09-02 22:53:00Negative mg/dL (09/02/2012 16:53:00) [facility] MXMARKKEMU7333-33-01 22:53:00Clear (09/02/2012 16:53:00) [facility] MACJWDMVYM0225-31-17 22:53:001.018[facility] IladgxbSKYUBUPILU1944-82-65 22:53:00 500 mg/dL *ABN*(09/02/2012 16:53:00) [facility] DqeooqhSTHUUYNMLP0286-71-03 22:53:0020 mg/dL *ABN*(09/02/2012 16:53:00) [facility]annURINALYSIS 2012-09-02 22:53:00Negative *NA*(09/02/2012 16:53:00) [facility] [place] VYGYNQITUO7254-78-41 22:53:00Negative (09/02/2012 16:53:00) [facility] UVYMDTHXWO2786-05-07 22:53:00Negative (09/02/2012 16:53:00) [facility] [place] BQHZOLVPYO0368-26-44 22:53:00Few /LPF *NA*(09/02/2012 16:53:00) [facility] IgybsjyNYBOXYAHUU8806-60-55 22:53:00Trace *ABN*(09/02/2012 16:53:00) [facility] RxbnjndMQIMMXJKTR0168-04-84 22:53:003[facility] RkdvabyRIIOJCPOBE3939-42-80 22:53:0014[facility] KibggipUKEQWCNJS4625-84-03 19:51:001.2[facility] [place] TGNYMFLLT6108-67-64 18:24:00<0.02[facility] HcvqdzcHOAVAXRKX3897-22-05 18:24:000.9 [facility] QaguhocKNMTMLKLO4679-40-23 18:24:0076[facility]annCHEMISTRY 2012-09-02 18:24:001.2[facility] JcnrqemTSHVTGIEL8670-71-47 18:24:0064[facility] QuwgeirSTKQNKVBT7907-45-77 18:24:77030Uyvqxuej RldgyrxNEYNVBYAX0282-75-48 18:24:0043[facility] TqdbrkeHBEQLDTQJ8798-68-78 18:24:0040[facility] MXTDALLEA6062-96-73 18:24:000.7[facility] BzbesblSXTOEIRDI1328-27-58 18:24:000.8 [facility] ZncpmrfSXVCEBTPR8057-33-49 18:24:004.4[facility] HermannCHEMISTRY 2012-09-02 18:24:0020[facility] ItocjztIPHNOGLSF0655-10-80 18:24:007.9[facility] FkgrkmaNCTEQNGOA4419-06-13 18:24:0020[facility] HeclbnzJAQNNTGTJ2801-46-63 18:24:0054[facility] SkfpskgFBUVHIXJD2998-17-23 18:24:009.6[facility] WAXOBKHOC2709-67-93 18:24:003.5[facility] MrkjjktJVFVZMFVJ1299-77-35 18:24:0014.9 [facility] CzsgcpwVVBORJFTO3052-12-53 18:24:41945Fguuleuw HermannCHEMISTRY 2012-09-02 18:24:003.9[facility] ObuzmweRCFSXQCNL9496-54-14 18:24:0027[facility] GiacqimLWVFAHIBE6436-14-50 18:24:001.0[facility] GjawgrdGCFJNQTQI2980-17-89 18:24:09055Rebrkmhq ZwgkikjHYWOGPZSY8410-70-17 18:24:001.7[facility] [place] MMPRQPDVA2012-93-77 18:24:003.3[facility] SsppnozPWVVLKGTDE0707-03-43 18:24:000.91 [facility] ErphzizFVDPDUDESU7363-60-96 18:24:00* Test Item Value Reference Range Interpretation Comments PTT (test code = PTT) 37.0 s 22.9-35.8 H [facility] JowftzeKGWAATBFKL1228-60-60 18:24:00* Test Item Value Reference Range Interpretation Comments PT (test code = PT) 12.5 s 12.0-14.7 N [facility] AspthamGEKSXWTLDY9948-52-93 18:24:0020.7[facility] HermannHEMATOLOGY 2012-09-02 18:24:0071.9[facility] VnbikvpWRDBUUSDLP0418-41-20 18:24:000.3[facility] CodlaxhFEDVEVKRQA8526-86-63 18:24:006.7[facility] AuqbnyhWNGWDPQHQQ9101-48-65 18:24:005.3[facility] RexiitjPCMAXUIDCW9869-03-27 18:24:001.8[facility] [place] ERFZRHLWZN0045-96-46 18:24:000.2[facility] IkmzepoDUPWBSIGOF9327-87-28 18:24:000.0 [facility] QsspzosYOFHJKWLHL3978-09-84 18:24:001.9[facility] HermannHEMATOLOGY 2012-09-02 18:24:000.5[facility] ChlcbuvPKUKECJBMQ3213-34-73 18:24:00* Test Item Value Reference Range Interpretation Comments MCH (test code = MCH) 31.6 pg 27.0-31.0 H [facility] VtonugjUBSARJGFHR9893-19-83 18:24:0093.0[facility] HermannHEMATOLOGY 2012-09-02 18:24:0014.0[facility] WipkvryRRNMVAQYGU0776-85-75 18:24:0034.0[facility] OakyhaaJZCDUAQGWI9855-33-39 18:24:20802Dehzpzmv QjygtonFBDSJLQOAP7269-43-87 18:24:008.9[facility] DfvxnogBCKVAQJNUV6989-08-65 18:24:0044.9[facility] [place] LGXQGYJSDQ1911-31-69 18:24:009.4[facility] QiblbfyGFHAWTPCCM7649-36-74 18:24:00 15.3[facility] CkuqzelMRZEAFEWPU5194-05-64 18:24:004.83[facility] HermannBEDSIDE GLUCOSE NJNGWLF7766-57-50 12:12:69258Bgkufglo NghjjqsGWDQCNMLE7760-84-94 09:52:93810Rlrvxasv RuttwbqPBMERUKOW7629-80-01 09:52:008.1[facility] NUMMJANRN4898-68-37 09:52:0028[facility] KxoccwyIUFLQVSHP4276-67-38 09:52:24696 [facility] PzenqxcKDSZWZWIC4475-27-32 09:52:004.0[facility] HermannCHEMISTRY 2012-06-26 09:52:002.4[facility] SkmjlirALQTAPSVQ8084-86-26 09:52:0048[facility] NgpstpzXRFXIFAHR0998-38-80 09:52:63485Zhfykjzx MjdkyjpHFLCHOUGR0558-08-50 09:52:0015[facility] RkodgolSQWRFXBTR3672-99-51 09:52:001.1[facility] IFDXEZUCU3117-11-80 09:52:0014[facility] OhctnvvETBBVVBVX6993-20-25 09:52:002.9 [facility] KgpcbvvWXOVUNVIW7821-73-40 09:52:005.3[facility] HermannCHEMISTRY 2012-06-26 09:52:000.7[facility] OzvucrkMBDVSUGXA5636-28-57 09:52:29945Iodeyxdf HccsgkdOBBFCAHZN0475-17-60 09:52:0049[facility] VuexhbyHIYYYKJOX4236-25-01 09:52:000.8[facility] MezsrpfLPLRQHCUI3199-74-35 09:52:0053[facility] EFCNMDAOC0673-14-95 09:52:0014.0[facility] AigysncOJECDXJOFI1296-76-04 09:52:000.2 [facility] PloyjkoOKRTZPOYJE0360-28-88 09:52:000.0[facility]annHEMATOLOGY 2012-06-26 09:52:003.8[facility] FaibnhaOMQOYRXWDO0779-82-62 09:52:000.7[facility] UjonbgpDYXFVPJPLV5315-10-94 09:52:001.6[facility] FaohazyGJYTOGGGXG0978-31-70 09:52:000.3[facility] RfaezfmAXIKLJKIOV8552-92-38 09:52:002.6[facility] CXNEJSMOFA8076-69-39 09:52:0010.5[facility] MxfcvljEVFTMETKHS6026-99-13 09:52:00 60.7[facility] NbdxgpaYYYSWLKCTB6459-54-84 09:52:0025.9[facility]annHEMATOLOGY 2012-06-26 09:52:009.0[facility] YhkqxbuMMEZLBLXDU2774-85-60 09:52:00758Lqnungyl CnmhpeaCVEYKEDZFX9423-25-48 09:52:0036.1[facility] YfmlqzxVAYRZFYLEC1428-88-07 09:52:00* Test Item Value Reference Range Interpretation Comments MCH (test code = MCH) 31.8 pg 27.0-31.0 H [facility] UjrokthESRURMVEJK8632-51-62 09:52:0034.1[facility]annHEMATOLOGY 2012-06-26 09:52:0013.9[facility] SrhtorlOFQNIGGDLQ1080-48-36 09:52:0093.0[facility] KqllmepEXFSQMAECH0431-74-51 09:52:006.3[facility] EigtbtqMRUYPJFFLC4493-51-28 09:52:003.88[facility] SvpbqusGRHZRHDDLW8798-46-80 09:52:0012.3[facility] BEDSIDE GLUCOSE BJUVLLE1712-67-69 03:00:88686Xvaoncqu HermannBEDSIDE GLUCOSE BGDBLSW3430-33-51 21:22:89945Dcrgepwy EecqojvLQRBMHVAD4844-67-02 13:12:0055 [facility] XdodfmdRJYDAKDNL1382-63-61 13:12:0011[facility]annCHEMISTRY 2012-06-25 13:12:79593Oqywgkld HzexsudSQVPLMKKH4508-98-64 13:12:009.27[facility] ZsniktxIPMFQUIZH4370-86-69 13:12:85996Hemycsbj WdemxmtUKOAEACNY7576-56-28 13:12:0012.7[facility] JzvdbkvTSWNTWRRN8047-02-82 13:12:003.5[facility] VBSVQBEYJ4328-13-15 13:12:0015[facility] KcgjyjwCHSVCQUIF8586-89-84 13:12:000.6 [facility] PixxszrQVEJEWGMO9810-32-58 13:12:0048[facility]annCHEMISTRY 2012-06-25 13:12:002.2[facility] VbxccvqXFMMNLHXY3332-03-28 13:12:008.2[facility] JgqraiwAXODNMIAT4993-69-41 13:12:0024[facility] YxgxvtaOCOLEFHDX1064-25-70 13:12:68908Jebmapeq BepcqzeOJGPARRFZ2562-98-93 13:12:0082[facility] GWNHIFVQG9962-80-18 13:12:003.7[facility] DuzftlgQCUKVWXEG7128-17-22 13:12:001.1 [facility] IfdxcsqJUELTAYKD9880-72-85 13:12:11747Xntmyxha HermannCHEMISTRY 2012-06-25 13:12:000.4[facility] FhwonxkILYFADKVR3721-52-52 13:12:0053[facility] SoyurdhOXPMVXPAJ7344-74-12 13:12:005.7[facility] BriivmbYSQRPWQXW2465-91-95 13:12:0017[facility] ReobgheRCWYXFQMI4241-55-91 13:12:0048[facility] TIEUDALMU2442-01-56 13:12:00267Vqtpcvkk TywccwwHBADFEFTG8490-08-15 13:12:001.7 [facility] VxkqghfWSHZTBOKHX6287-85-60 13:12:0017.6[facility]annHEMATOLOGY 2012-06-25 13:12:001.0[facility] FmfxyzrJEFMAACUVT4438-15-43 13:12:004.5[facility] DoocoryLEAMKGZESN3810-24-40 13:12:000.5[facility] PfrptaqNRYQWQSBZJ2136-94-20 13:12:0010.0[facility] WjigzndRESRYGKXUO1091-54-86 13:12:000.6[facility] AKFDALWERZ8340-57-64 13:12:000.1[facility] WxpefqbFORCWFMJDZ5192-82-99 13:12:001.1 [facility] ZtfahvuWVNTPPOZHO8581-87-08 13:12:000.0[facility]annHEMATOLOGY 2012-06-25 13:12:0070.9[facility] XmixhsiNGJYTLTACW6661-06-98 13:12:009.1[facility] LpykhiwSXGEQHUOQC3620-69-07 13:12:0014.0[facility] SuwdqgsDTDABLUHGI9087-43-57 13:12:73346Mfhhqzkn DptdgazHBGIWDDKCS1786-41-32 13:12:0034.2[facility] EVKGVYYZXW5552-47-55 13:12:00* Test Item Value Reference Range Interpretation Comments MCH (test code = MCH) 31.9 pg 27.0-31.0 H [facility] KfwvjkhGYRWMIZYEU5163-83-28 13:12:0011.6[facility]annHEMATOLOGY 2012-06-25 13:12:0034.0[facility] ClrvvzcZXQHCTOFDE7408-43-19 13:12:006.4[facility] IsjcgvhTSFJCFWJOH6968-29-54 13:12:003.65[facility] XaghqepDVSKTBYBGV7122-18-37 13:12:0093.1[facility] MslnhejKJXAWPDJYR5470-10-39 13:12:000.03[facility] GYFFAQCSWQ3627-96-02 13:12:00Negative (06/25/2012 07:12:00) [facility] QGJBGHIHIK9614-43-03 13:12:00Reactive *ABN*(06/25/2012 07:12:00) [facility] JzqxseuRKPTXMWLMU3929-55-41 13:12:00Negative *NA*(06/25/2012 07:12:00) [facility] YmuefiaUNRBFQZUMP0489-73-85 13:12:00Negative *NA*(06/25/2012 07:12:00) [facility] QqoicjnLIBPQWQMVK0708-42-39 13:12:00Negative *NA*(06/25/2012 07:12:00) [facility] XjaolqnGRMBMRVYDH6957-97-82 13:12:00Negative *NA*(06/25/2012 07:12:00) [facility] VoinzuaVFINSWPQR9232-14-58 17:32:00<0.02[facility] HermannCHEMISTRY 2012-06-24 17:32:0065[facility] ZwwecnyUFNOYVPAU0821-49-98 10:34:00<0.02[facility] NcggxxcXQESNZTYX5661-76-57 10:34:0060[facility] JhhdnfmYQTZBLAJU0797-43-62 10:34:001.7[facility] AtumifxFIQVIVIMW8569-93-86 10:34:0075[facility] BJTFIMQWP0741-92-71 10:34:000.8[facility] VdhllrlKKYKFSBGH3556-05-57 10:34:0063 [facility] XzrguedXAJDFPLUG9094-33-47 10:34:005.5[facility] HermannCHEMISTRY 2012-06-24 10:34:92636Gwuoppmy KxetsaqLFGFNOSOZ1708-15-88 10:34:008.0[facility] XgybldpBORBETNWK3341-19-82 10:34:002.7[facility] TjaqhzgSCTYGLOWO1781-93-29 10:34:0025[facility] WqhtiioUYOEOXFRK4947-11-14 10:34:42272Wnmngnab [place] FTEGXRYJG0776-65-23 10:34:14015Jektrzuu ToitgmtHEWVDSEYH7308-58-18 10:34:004.2 [facility] KicxtttGQKXBGRUX0575-56-53 10:34:001.5[facility] HermannCHEMISTRY 2012-06-24 10:34:80552Qsfujhtr JxmfgjbIZLDPIHKU5517-33-83 10:34:0028[facility] JdqfnuiDDHTVHZMJ7438-20-59 10:34:0033[facility] LfdinuiBTHRUMRBW1510-35-66 10:34:002.8[facility] QpndomdVBEGMXJJI8444-50-18 10:34:001.0[facility] QUFWXPEKQ6076-26-54 10:34:0013.2[facility] ApqihidOEROXVGMS9005-68-69 10:34:0019 [facility] VjgcjfiHUUAOXXCT4595-07-98 10:34:002.1[facility] HermannHEMATOLOGY 2012-06-24 10:34:008.9[facility] YyaohmbQOEXQEJTWJ5901-54-57 10:34:0083.1[facility] WoiaqmlDXNAKKSPGH6559-30-98 10:34:000.3[facility] YlcsdnvZBZWNMHXSZ4445-64-66 10:34:007.5[facility] ErinifiOPGADXOBIE5574-61-03 10:34:006.5[facility] VMZSYAIBYY3706-86-54 10:34:000.6[facility] NtzsoqcYECBYSCYDQ3141-67-28 10:34:000.7 [facility] QvdfaxlTFYZIOATSQ4732-51-25 10:34:000.0[facility] HermannHEMATOLOGY 2012-06-24 10:34:000.0[facility] AehycraWACVEWQKCP4566-20-67 10:34:000.2[facility] RuahgksVPUNLBVBAO8349-95-93 10:34:007.8[facility] JasecloDBKNLUCXQB5227-36-52 10:34:0033.0[facility] IthexirVDTXICGRQP8182-81-31 10:34:89768Nuwnthkn [place] BHOBLYGDTY2947-84-22 10:34:0013.6[facility] QhfjhtyCKSWPVJQJR4347-84-78 10:34:00 94.6[facility] DvikoocJXQCAWXYYA5182-71-84 10:34:00* Test Item Value Reference Range Interpretation Comments MCH (test code = MCH) 31.2 pg 27.0-31.0 H [facility] NcrfgipKLMSKITSLV3071-70-43 10:34:003.85[facility] HermannHEMATOLOGY 2012-06-24 10:34:0012.0[facility] ZxkalgkBIBETCDFUB8179-03-60 10:34:0036.4[facility] NhtzhyjPVYMNWPVKV8727-33-54 10:34:008.9[facility] NvdsdkfUDMLUVMSBZ9962-11-03 23:36:00Few /LPF *NA*(06/23/2012 17:36:00) [facility] HwefsxhYKVWVEXQLN8650-00-51 23:36:002.0[facility] RbnfkpmJORDWDIWDW7250-11-80 23:36:00Negative mg/dL *NA*(06/23/2012 17:36:00) [facility] PtgwwfjSTXZHQJZUQ0314-10-02 23:36:00Negative mg/dL (06/23/2012 17:36:00) [facility] ZjkblznJKAGNNRNEG2879-00-01 23:36:00Small *ABN*(06/23/2012 17:36:00) [facility] AodvjolWEWEJXBEHG2101-65-42 23:36:84317 mg/dL *ABN*(06/23/2012 17:36:00) [facility] ItfrioeIZUBFSAFOG6961-14-27 23:36:004 [facility] OkpkcwrIJSOXRGXCU4939-53-99 23:36:00Negative (06/23/2012 17:36:00) [facility] EcbbpdtIAIINEDHBS7982-75-35 23:36:00Occasional /HPF *NA*(06/23/2012 17:36:00) [facility] KufkrqhXXSWTZOZKK7930-17-73 23:36:00Negative *NA*(06/23/2012 17:36:00) [facility] EswcbwbJAOEQZOXKS7897-00-16 23:36:00Small *ABN*(06/23/2012 17:36:00) [facility] WwmwkyqLDPRLFDSLU2674-46-47 23:36:0020[facility] RVQJAZTVHD8320-72-54 23:36:00Few /LPF *NA*(06/23/2012 17:36:00) [facility] IpcmjlzXHEWLSTWRV7858-62-37 23:36:005.0[facility] LzwsjezEYSQXFNWDA1944-68-74 23:36:001.008[facility] IoglgipJXLNUMATYC6272-56-79 23:36:00Slight *ABN*(06/23/2012 17:36:00) [facility] ExzsoytPFYZSJLRCB0776-16-98 23:36:00Yellow *NA*(06/23/2012 17:36:00) [facility] JfwoglrJAHJAPPFHO6198-70-00 16:30:00Marked *ABN*(06/22/2012 10:30:00) [facility] HmdfikrDPHXOMJYTZ7882-57-56 16:30:14100 mg/dL *ABN*(06/22/2012 10:30:00) [facility] BlfjqekJDWMSLXGUY3986-72-61 16:30:00 5.0[facility] GqyuobrPNDLGDZJNP3782-91-47 16:30:001.012[facility] HermannURINALYSIS 2012-06-22 16:30:00Negative *NA*(06/22/2012 10:30:00) [facility] YVVLSJQADL1558-16-84 16:30:00Negative mg/dL *NA*(06/22/2012 10:30:00) [facility] LgylpyyZJQEPHYUXT3915-65-48 16:30:0050 mg/dL *ABN*(06/22/2012 10:30:00) [facility] GpwsdnsLZVNHULARL4761-40-23 16:30:00Positive *ABN*(06/22/2012 10:30:00) [facility] IhtawryZUTMFULYQJ2604-98-98 16:30:00Large *ABN*(06/22/2012 10:30:00) [facility] UpkalitIAIAZNWJSR6135-11-67 16:30:00Few /LPF *NA*(06/22/2012 10:30:00) [facility] PqlrhkiRMEYQFDVSK5933-84-59 16:30:003[facility] HermannURINALYSIS 2012-06-22 16:30:00Few /HPF *NA*(06/22/2012 10:30:00) [facility] KPLDZPYOBQ0526-23-37 16:30:0020[facility] IgttuhqLZILUOOUOL1958-78-31 16:30:00Many /LPF *ABN*(06/22/2012 10:30:00) [facility] VonkgayFCEFTLARND9261-43-86 16:30:00 Large *ABN*(06/22/2012 10:30:00) [facility] BxqftpaBUZYICHEHW8460-96-73 16:30:00 69[facility] MtrhgifDOEWIWVOQ5147-86-62 15:00:00<0.9[facility] HermannCHEMISTRY 2012-06-22 15:00:0053[facility] QadontjYLDJUBGFQ2475-54-22 15:00:00<0.5[facility] ThrksaaABJHAVIJU9876-08-38 15:00:67123Kyqgblqq VcsiaezZGBSPBPXF4019-76-58 15:00:0027[facility] YzmxtcmJQYXRHYVG6794-31-97 15:00:0013.7[facility] FJWIKFMWZ5022-33-75 15:00:0017[facility] MsyrcnmAYDSIZMCO4525-12-26 15:00:003.3 [facility] ZgtamwgUXFKXITAF2024-67-49 15:00:0023[facility] HermannCHEMISTRY 2012-06-22 15:00:0031[facility] ItozywtPBQWZYBRX0578-83-83 15:00:003.7[facility] FpkupjcFZICCCINU9435-03-42 15:00:32674Eyrveabq CwwpxlyVRZVHMKKR8170-83-35 15:00:009.1[facility] AocbwbyBGBTYYFKV0988-51-82 15:00:41491Chcvbqdr [facility] UPAZQYYGC7997-71-07 15:00:001.6[facility] BitrndtZAZTXUMPQ9362-72-19 15:00:001.5 [facility] JzraydoACZHFLHBP5899-79-31 15:00:56747Tzpgxeve HermannCHEMISTRY 2012-06-22 15:00:0044[facility] ZogclvdTECVSHFPS9139-22-77 15:00:007.4[facility] CbervepRMQWIIKIU8303-82-43 15:00:000.8[facility] AiaiexyYKBPISQXB9488-72-09 15:00:004.1[facility] PlkogzkXHREZKXSX1531-63-96 15:00:0039[facility] TLJTTIKVF1135-50-71 15:00:95149Bruouvhc PrmmiysMGVNBDAHOM4254-85-75 15:00:0012.3 [facility] KxdiwouWUZRGTZVZR6890-10-53 15:00:000.8[facility] HermannHEMATOLOGY 2012-06-22 15:00:000.1[facility] LlzdrqdSWNMYVESXL9499-78-34 15:00:000.6[facility] OojfitmFAYQXKQHHJ3478-58-09 15:00:000.0[facility] UwlasivFEIFAAGXNW6902-25-82 15:00:000.0[facility] UspnphjTATBYVVHGS5899-26-78 15:00:00Normal (06/22/2012 09:00:00) [facility] NfiozwcTXELIUEOWV9589-83-80 15:00:0089.7[facility] GFCMXDFIMS6374-29-35 15:00:00Normal (06/22/2012 09:00:00) [facility] UCQVSXREHA8226-42-54 15:00:005.6[facility] TigghddPBMBKXEMSK7481-33-71 15:00:004.5 [facility] ZuopjgcQBMZHDOJGH0853-29-35 15:00:000.1[facility]annHEMATOLOGY 2012-06-22 15:00:0013.9[facility] AfoscauRPIJQAIHAY2425-02-21 15:00:0034.2[facility] YixewbxDPQAPTVBGR5844-31-88 15:00:82567Rctvgomm YxeswhuJPMKOFUAYD7272-38-06 15:00:009.0[facility] BvjmoonHJYEUIGBMI0802-14-79 15:00:0013.8[facility] WPKZEIUAEJ5558-58-62 15:00:0040.3[facility] JlahpojWNGASAELEW3983-17-40 15:00:00 93.7[facility] CfvtjmhRTWFLXVGTY4102-92-49 15:00:00* Test Item Value Reference Range Interpretation Comments MCH (test code = MCH) 32.0 pg 27.0-31.0 H [facility] ItwpxobZBQJPWWQRT1670-76-65 15:00:004.30[facility]annHEMATOLOGY 2012-06-22 15:00:0013.8[facility]
--- NOTE | 2020-05-10 10:59 | NUR ---
Spoke to Dr. Jeffers and he has cleared patient for discharge home and to continue her current home medications. Dr. Andrei Dubois is here and is OK for the patient to dc home at this time.
[2020-05-10 12:02] VITALS: BP 162/76
--- NOTE | 2020-05-10 12:12 | Consultation ---
DATE OF CONSULTATION: 05/10/2020 Cardiology Consultation REASON FOR CONSULTATION: Evaluate cardiac status. HISTORY OF PRESENT ILLNESS: Ms. Lanier is an 84-year-old lady with past medical history of hypertension, type 2 diabetes, hypercholesteremia, COPD, paroxysmal atrial fibrillation, history of diastolic CHF as well as peptic ulcer disease. She reports that she was in her usual state of health up until last night where she felt overall malaise and not feeling very well. She checked her vital signs at home and she reported that her blood pressure was 190s/100s and her heart rate was fast in the low one 100s. Upon arrival to the freestanding emergency room, the patient just overall felt not well, but very hard to describe. She felt a little bit nauseous and just felt sickly and decided to come to the hospital for further care and evaluation. She denied any subjective palpitations. She denied any chest pain or discomfort. Reports no orthopnea or PND, or any changes in weight. She did report some very mild ankle swelling. She reports good compliance with her medications and has no recent medical changes. For her cardiac pain, she follows Dr. Monsalve in [facility] for her cardiac purposes. PAST MEDICAL HISTORY: 1. Hypertension. 2. Type 2 diabetes. 3. Hypercholesteremia. 4. COPD. 5. CHF, diastolic. 6. Paroxysmal atrial fibrillation. 7. Peptic ulcer disease. 8. History of endometrial cancer status post hysterectomy in 2017. PAST SURGICAL HISTORY: 1. Hernia surgery in 1990. 2. Knee surgery in 2013. 3. Hysterectomy in 2017. FAMILY HISTORY: Mother in her 80s with leukemia. Father inhis 70s from a heart attack. SOCIAL HISTORY: She is a lifelong nonsmoker. Denies alcohol or illicit drug use. ALLERGIES: INCLUDE FLUOROQUINOLONES CAUSING DIZZINESS AND MALAISE. CURRENT MEDICATIONS: Include: 1. Tylenol with codeine p.r.n. 2. Albuterol MDI q.6 hours p.r.n. 3. Eliquis 2.5 mg b.i.d. 4. Dymista nasal spray. 5. Budesonide nebs q.6 hours. 6. Vitamin D tablet daily. 7. Colace 100 mg p.r.n. 8. Multaq 400 mg b.i.d. 9. Uloric 40 mg daily. 10. Lasix 20 mg daily. 11. Osteo Bi-Flex tablet daily. 12. Insulin Levemir 15 units subcu at bedtime. 13. Insulin lispro q.a.c. sliding scale. 14. Singulair 10 mg at bedtime. 15. Nifedipine 30 mg p.r.n. 16. Zofran 8 mg q.8 hours p.r.n. 17. Protonix 40 mg daily. 18. Senna. 19. Micardis 80 mg daily. 20. Tramadol p.r.n. 21. Ursodiol 300 mg daily. REVIEW OF SYSTEMS: GENERAL: Denies any fevers, chills, or any weight changes. HEENT: No headaches, visual complaints, or sore throat. Has decreased hearing. RESPIRATORY: Has exertional dyspnea class 3 that is chronic. Has occasional cough. No wheezes. CARDIOVASCULAR: Denies any chest pain, subjective palpitations, orthopnea, PND as per HPI. GI: Positive for mild abdominal pain and nausea that i now resolved. No vomiting, bright red blood per rectum, melena, hematemesis. ENDOCRINE: Denies any heat or cold intolerance. NEUROLOGIC: Denies any focal weakness, numbness, tingling, seizures, headache, TIA or stroke. SKIN: No rashes. ID: No infectious issues. : Denies any dysuria, pyuria, or hematuria. Remainder of review of systems negative otherwise mentioned. PHYSICAL EXAMINATION: VITAL SIGNS: Height of 62 inches, weight of 203 pounds. BMI is 37.1. GENERAL: This is an elderly lady lying in bed, who is currently in no apparent distress, lying relatively flat. HEENT: Normocephalic and atraumatic. Pupils are equal, round, reactive to light. Extraocular movements are intact. Oropharynx is clear and she has decreased hearing. NECK: No elevation of jugular venous pulsation. No carotid bruits. CARDIOVASCULAR: Regular rate and rhythm. Normal S1 and S2. Soft 2/6 systolic ejection murmur at the right upper sternal border. LUNGS: Show slightly decreased breath sounds bibasilarly. No wheezes. ABDOMEN: Soft, nontender, obese. Normoactive bowel sounds. No hepatosplenomegaly. BACK: No costovertebral angle tenderness. EXTREMITIES: Warm with currently no edema. 1+ pedal pulses. NEUROLOGIC: Cranial nerves II through XII are intact. Strength is 5/5 and grossly nonfocal. PSYCH: Normal fluent speech. Appropriate affect. No anxiety or delusions. LABORATORY DATA: Reviewed from the chart. Essentially has ruled out for IL with negative cardiac biomarkers. BNP was 146, creatinine was 1.4. LFTs within normal limits and normal hemoglobin and hematocrit of 12.4 and 38.6, normal white count. EKG reviewed from this morning, normal sinus rhythm from outside freestanding ER had atrial fibrillation. DIAGNOSES: 1. Symptomatic atrial fibrillation with RVR, likely precipitating mild acute on chronic decompensated diastolic heart failure. 2. Paroxysmal atrial fibrillation. 3. Obesity. 4. Hypertension. 5. Type 2 diabetes. 6. Hypercholesteremia. 7. Chronic obstructive pulmonary disease. PLAN/RECOMMENDATIONS: 1. From a cardiovascular standpoint, the patient is back in normal sinus rhythm and is on a rhythm control strategy with Multaq and such.,would continue that. 2. We will go ahead and place her back on her Eliquis for thromboembolic prophylaxis. 3. Currently the patient seems relatively compensated at this time and we will likely transition her to p.o. diuretic starting tomorrow. 4. Echocardiogram has been done this morning quickly reviewed revealing preserved left ventricular function and no significant abnormalities. 5. We will continue to follow this patient with you, but largely goal will be medical therapy in this lady with advanced age and comorbidities. MD MARICRUZ Lamas/CHERL /[id number] MTDLuis Enrique
--- NOTE | 2020-05-10 12:19 | NUR ---
Discharge instructions given to the patient, she verbalized understanding. IV to the left FA was removed
--- NOTE | 2020-05-10 13:49 | NUR ---
H&P Chief Complaint - Afib with RVR History of Present Illness Ms Lanier is an 84 yo F with PMH significant for COPD, Paroxysmal Afib, HFpEF, CAD, HLD, HTN, T2DM who presented with complaint of shortness of breath and rapid heart rate on her BP monitor at home, admitted for evaluation of Afib with RVR. Patient was at home feeling well until last night when she began to feel weak and tired, checked her vitals and found herself to be hypertensive to 180/100s and noted her heart rate was 110. Presented to [facility] ED where she again was hypertensive and was in Afib with RVR to 115. Labs in ED largely normal. CXR only with mild cardiomegaly. BNP was 146. Admitted for further work-up. Home Medications 1. Tylenol with codeine p.r.n. 2. Albuterol MDI q.6 hours p.r.n. 3. Eliquis 2.5 mg b.i.d. 4. Dymista nasal spray. 5. Budesonide nebs q.6 hours. 6. Vitamin D tablet daily. 7. Colace 100 mg p.r.n. 8. Multaq 400 mg b.i.d. 9. Uloric 40 mg daily. 10. Lasix 20 mg daily. 11. Osteo Bi-Flex tablet daily. 12. Insulin Levemir 15 units subcu at bedtime. 13. Insulin lispro q.a.c. sliding scale. 14. Singulair 10 mg at bedtime. 15. Nifedipine 30 mg p.r.n. 16. Zofran 8 mg q.8 hours p.r.n. 17. Protonix 40 mg daily. 18. Senna. 19. Micardis 80 mg daily. 20. Tramadol p.r.n. 21. Ursodiol 300 mg daily. Review of Systems General: No fever, chills, or fatigue HEENT: Denies visual changes, hearing loss, congestion, rhinorrhea, or bleeding Respiratory: +chronic exertional dyspnea; No cough, or hemoptysis Cardiovascular: No chest pain, palpitations, DURANT, orthopnea, PND, leg edema, or claudication Gastrointestinal: No nausea, vomiting, diarrhea, constipation, or abdominal pain G/U: Denies dysuria, hematuria, incontinence, or discharge Musculoskeletal: No myalgias or arthralgias Neurological: No syncope, seizures, headaches, changes in sensation, or weakness Hematology: No bruising, bleeding, or lymphadenopathy Endocrine: No heat or cold intolerance, hair loss, or weight changes Skin: No rashes, sores, itching, bruising Psychiatric: Denies depression or elevated mood, or anxiety Past Medical History Past Surgical History Hernia surgery in 1990 Knee surgery 2014 Hysterectomy 2017 Family History Mother had leukemia, father had heart attack in his 70s Social History Does not smoke, does not drink, does not use drugs. Allergies Ciprofloxacin and levofloxacin Physical Exam Vitals: Temp: 97.8 P: 67 BP: 167/76 RR: 19 SpO2: 96 General Appearance: The patient is alert, oriented and in no acute distress. Appears euvolemic. Skin: Warm and hydrated without any rash. HEENT: Head is normocephalic, atraumatic. Nontender sinuses. Pupils are equal and reactive. The nares are patent. Oropharynx is moist and clear without lesion s. Neck: Supple without lymphadenopathy. No JVD. 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 Normal S1 and S2 without S3/S4. No murmurs, rubs or gallops. Peripheral pulses symmetric +2. Respiratory / Chest: No crackles or wheezes are heard. Symmetric breath sounds. Preserved chest expansion. Abdomen: Soft, nontender, nondistended with good bowel sounds heard. No clinical organomegaly. Renal: There is no costovertebral angle tenderness. Extremities: Without cyanosis, clubbing or edema. Preserved ROM. Neurological: Gross nonfocal. Patient oriented x 3. Cranial nerves II - XII Grossly intact. DTRs +2. MS: 5/5 globally. Assessment/Plan #Afib with RVR, now resolved - patient placed on her home medications and is now in normal sinus rhythm; controlled with Multaq - back on eliquis - TTE with preserved EF, diastolic dysfunction; no major changes compared to prior studies - Dr Ese Jeffers consulted, appreciate assistance #T2DM - restart home insulin #Hypertension - continue home hypertensive medications I have spent 45 minutes [id number] time with patient, reviewing clinical data, and formulating plan of treatment. Andrei Dubois MD Internal Medicine
[2020-05-10] MEDS ORDERED: METOPROLOL TARTRATE 25 MG TAB PO SCH (17:00)
[2020-05-10] MEDS ORDERED: APIXAB 2.5 MG TABLET PO SCH (17:00)
--- NOTE | 2020-05-10 19:28 | NUR ---
Discharge Summary Patient: Josie Lanier Admission date: 05/10/2020 Discharge date: 05/10/2020 Attending physician: Andrei Dubois MD Consultation: Dr Jeffers - Cardiology Admitting Diagnosis: Paroxysmal atrial fibrillation with RVR, Type 2 diabetes mellitus, hypertension, COPD, coronary artery disease, diastolic heart failure Discharge Diagnosis: Paroxysmal atrial fibrillation with RVR, Type 2 diabetes mellitus, hypertension, COPD, coronary artery disease, diastolic heart failure Procedures: None Hospital Course: Ms Lanier is an 84 yo F with PMH significant for COPD, Paroxysmal Afib, HFpEF, CAD, HLD, HTN, T2DM who presented with complaint of shortness of breath and rapid heart rate on her BP monitor at home, admitted for evaluation of Afib with RVR. Patient was at home feeling well until last night when she began to feel weak and tired, checked her vitals and found herself to be hypertensive to 180/100s and noted her heart rate was 110. Presented to [facility] ED where she again was hypertensive and was in Afib with RVR to 115. Labs in ED largely normal. CXR only with mild cardiomegaly. BNP was 146. Admitted for further work-up. Patient was placed back on her home medications and returned to normal sinus rhythm. Her BP also returned to normal range and her symptoms resolved. She was evaluated by Cardiology who reviewed telemetry strips and found no issues. N o adjustments were made to her medications. She was monitored for several hours and then found fit for discharge home. Physical Exam: Vitals: Temp: 97.8 P: 67BP: 167/76RR: 19SpO2: 96 General Appearance: The patient is alert, oriented and in no acute distress. Appears euvolemic. Skin: Warm and hydrated without any rash. HEENT: Head is normocephalic, atraumatic. Nontender sinuses. Pupils are equal and reactive. The nares are patent. Oropharynx is moist and clear without lesions. Neck: Supple without lymphadenopathy. No JVD. 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 Normal S1 and S2 without S3/S4. No murmurs, rubs or gallops. Peripheral pulses symmetric +2. Respiratory / Chest: No crackles or wheezes are heard. Symmetric breath sounds. Preserved chest expansion. Abdomen: Soft, nontender, nondistended with good bowel sounds heard. No clinical organomegaly. Renal: There is no costovertebral angle tenderness. Extremities: Without cyanosis, clubbing or edema. Preserved ROM. Neurological: Gross nonfocal. Patient oriented x 3. Cranial nerves II - XII Grossly intact. DTRs +2. MS: 11/23 globally. Discharge medications: Per discharge medication reconciliation Discharge plan: Condition on discharge: good Activity: as tolerated Diet: diabetic diet Follow-up: patient is to followup in my clinic within 1 week or with her PCP Time spent on discharge: 45 minutes
[2020-05-11] MEDS ORDERED: TELMISARTAN 40 MG TAB PO SCH (09:00)
[2020-05-11] MEDS ORDERED: PANTOPRAZOLE SOD 40 MG TABEC PO SCH (09:00)
== END 2020-05-10 13:12 | disposition home or self-care (01) ==
LOC: FSED 23:26 → ERHOLD 05-10 01:15 → MED/SURG2 05-10 02:40
DX: I48.0 Paroxysmal atrial fibrillation (principal); I11.0 Hypertensive heart disease with heart failure; I50.33 Acute on chronic diastolic (congestive) heart failure; E66.9 Obesity, unspecified; E11.9 Type 2 diabetes mellitus without complications; E78.00 Pure hypercholesterolemia, unspecified; J44.9 Chronic obstructive pulmonary disease, unspecified; Z11.59 Encounter for screening for other viral diseases; Z88.1 Allergy status to other antibiotic agents; Z68.37 Body mass index [BMI] 37.0-37.9, adult; Z79.4 Long term (current) use of insulin
CPT/HCPCS: 36415; 71045; 80053; 81003; 82550; 82553; 82948; 83880; 84484; 85025; 93005; 93306; 99284; G0378; J1940; J2405 ×2; U0002

== ENCOUNTER 2020-10-08 12:08 | Emergency (ER) | payer MEDICARE, OTHER ==
[~2020-10-08] VITALS: Ht 157.5 cm; Wt 113.4 kg
[~2020-10-08 12:08] MED LIST changes: +DULCOLAX STOOL100 MG PO; +PROBIOTIC250 MG PO
[2020-10-08] MEDS ORDERED: SODIUM CHLORIDE 0.9% 500ML 500 ML IV STA (12:16)
[2020-10-08] MEDS ORDERED: ONDANSETRON HCL INJ 2MG/ML 2ML 2 MG/ML VIAL IV NR (12:30)
[2020-10-08] MEDS ORDERED: PIPER-TAZ 3.375 GM 50 ML IV ONE (12:30)
[2020-10-08] MEDS ORDERED: FAMOTIDINE 20 MG/2 ML VIAL IV NR (12:30)
[2020-10-08] MEDS ORDERED: ONDANSETRON HCL INJ 2MG/ML 2ML 2 MG/ML VIAL ONE (14:10)
[2020-10-08] MEDS ORDERED: SODIUM CHLORIDE 0.9% 500ML 500 ML ONE (14:10)
[2020-10-08] MEDS ORDERED: PIPER-TAZ 3.375 GM 50 ML ONE (14:10)
[2020-10-08] MEDS ORDERED: FAMOTIDINE 20 MG/2 ML VIAL IV ONE (14:10)
[2020-10-08] MEDS ORDERED: FAMOTIDINE20 MG PO (15:49)
[2020-10-08] MEDS ORDERED: ZOFRAN4 MG PO (15:49)
[2020-10-08 16:42] VITALS: BP 163/73
== END 2020-10-08 16:05 | disposition home or self-care (01) ==
LOC: FSED 12:35
DX: R10.9 Unspecified abdominal pain (principal); R11.2 Nausea with vomiting, unspecified; K52.9 Noninfective gastroenteritis and colitis, unspecified; R94.31 Abnormal electrocardiogram [ECG] [EKG]; Z20.822 Contact with and (suspected) exposure to COVID-19
CPT/HCPCS: 71045; 74176; 80048; 80053; 80076; 81003; 82553; 84484; 85025; 93005; 99284; J2405; J2543; J7040; U0002

== ENCOUNTER 2021-10-03 20:51 | Emergency (ER) | payer MEDICARE, OTHER ==
[~2021-10-03] VITALS: Ht 157.5 cm; Wt 93.9 kg
[~2021-10-03 20:51] MED LIST changes: +FAMOTIDINE20 MG PO
[2021-10-03 23:35] VITALS: BP 156/60
== END 2021-10-03 23:35 | disposition home or self-care (01) ==
LOC: FSED 21:07
DX: R06.02 Shortness of breath (principal); I50.9 Heart failure, unspecified; R60.9 Edema, unspecified; E87.6 Hypokalemia; R53.1 Weakness; R94.31 Abnormal electrocardiogram [ECG] [EKG]
CPT/HCPCS: 80053; 81003; 82553; 83880; 84484; 85025; 93005; 99283